=== PATIENT | female | born 1950 | race Caucasian/White ===

== ENCOUNTER 2017-11-14 09:38 | Inpatient (IN) | payer MEDICARE, SELFPAY ==
[2017-11-14] VITALS (30 sets, daily range): BP systolic 66–135; BP diastolic 46–94; PULSE 76–145; RESP 16–29; TEMP 35.9–37.2; O2SAT 87–96; BMI 60.3; BMI 58.2; BMI 58.3
--- NOTE | 2017-11-14 09:41 | NURSING ---
NO OLD EKGS
--- NOTE | 2017-11-14 09:52 | EKG12_ITS ---
Test Reason : CP Blood Pressure : / mmHG Vent. Rate : 145 BPM Atrial Rate : 147 BPM P-R Int : 098 ms QRS Dur : 166 ms QT Int : 340 ms P-R-T Axes : 000 270 015 degrees QTc Int : 528 ms Atrial flutter Left axis deviation Right bundle branch block Abnormal ECG Confirmed by CY WALKER, LEE ([id number]), web editor JERRICA HUITRON ([id number]) on 11/16/2017 10:00:22 AM Referred By: MARLA Confirmed By:LEE BENOIT MD
--- NOTE | 2017-11-14 09:52 | RAD_ITS ---
STUDY: X-RAY CHEST REASON FOR EXAM: Female, 67 years old. 2 day history of chest pain. TECHNIQUE: Single AP portable view of the chest. COMPARISON: None. FINDINGS: EKG electrodes are seen. Mild increased linear markings at the lung bases suggestive of bibasilar atelectasis and/or scarring. There is no demonstrated pleural abnormality. There is moderate cardiac enlargement. Normal mediastinum and angi. Normal visualized pulmonary arteries. Normal visualized aortic arch and descending thoracic aorta. Normal visualized thoracic spine. Normal visualized ribs, clavicles, and shoulders. There is no demonstrated abnormality of the visualized soft tissue structures of the upper abdomen. RAD/Chest 1 View (Portable) IMPRESSION: Cardiomegaly. Mild increased markings at the lung bases suggestive of linear atelectasis and/or scarring. Electronically Signed: Lewis Aguirre MD at 10:22 EDT Tel [phone], Service support ,
[2017-11-14] MEDS: Adenosine 6 MG/2 ML Syringe IV (09:53)
[2017-11-14] MEDS: Adenosine 6 MG/2 ML Syringe 12 MG IV (09:55)
[2017-11-14] MEDS: dilTIAZem 25 MG/5 ML Vial 20 MG IV BOLUS (09:58)
[2017-11-14 10:06] LABS: Absolute Lymphocyte Count 1.14 X10^3/ul (0.83-4.51); Absolute Neutrophil Count 7.9 X10^3/uL (2.0-7.7); Basophil# 0.01 X10^3/uL; Basophil% 0.1 % (0-1); Eosinophil# 0.01 X10^3/uL; Eosinophils% 0.1 % (0-5); Hematocrit 49.7 % (37-47); Hemoglobin 15.8 g/dl (12.0-15.0); Lymphocyte # 1.14 X10^3/ul (4.0); Lymphocyte % 11.2 % (19-41); Mean Corp Hgb Conc 31.8 g/gl (32-36); Mean Corpuscular Hgb 29.8 pg (27.0-32.0); Mean Corpuscular Volume 93.6 fL (81-99); Mean Platelet Vol. 10.1 fl (6.2-12.0); Monocyte# 1.02 X10^3/uL; Monocyte% 10.1 % (0-10); Neutrophil # 7.94 X10^3/uL (2.7-7.7); Neutrophil % 78.3 % (47-70); POSITIVE COUNT NO; POSITIVE DIFFERENTIAL NO; POSITIVE MORPHOLOGY NO; Platelet Count 182 K/mm3 (150-450); RBC Distribution Width CV 15.7 % (11.6-14.6); RBC Distribution Width SD 53.4 fl (35.1-43.9); Red Blood Count 5.31 M/mm3 (4.2-5.4); White Blood Count 10.1 K/mm3 (4.4-11.0)
--- NOTE | 2017-11-14 10:07 | ED.DCSUM_ITS ---
- ER Visit Summary Date of Service: 11/14/17 Chief Complaint: Shortness of breath History of Present Illness: The patient is a 67 F who has had shortness of breath for the last 2 days. She states she feels very winded. She also has some weakness. No chest pain today but she did note some chest pressure yesterday. She went to the PCPs office today and they noted that she was in SVT. She was able to do Valsalva heart rate came down to the 70s momentarily but then went back up to 150. Patient has no history of this in the past. She has no cardiac issues. She has never seen a advertising assistant before. Physical Examination: Vital signs reviewed. HEENT exam unremarkable. Heart is tachycardic but regular with a rate of 145 without murmurs. Lungs are clear to auscultation. Abdomen is soft and nontender. Extremities reveal no edema. Skin exam normal. Neurologic exam normal. Test Results: EKG was in SVT at a rate of 145. Chest x-ray shows chronic changes with cardiomegaly. Heme globin 15.8. Sodium 148, chloride 111. Glucose 133. Creatinine is 1.21. Troponin 0 0.017 Emergency Department Course and Treatment: Initially the patient was given 6 mg and then 12 mg of adenosine. This revealed that the underlying rhythm was actually atrial flutter. Patient was given 20 mg of Cardizem and then 3 5 mg doses of metoprolol. The patient still had a heart rate in the 140s. I then started her on a Cardizem drip and titrated upwards but it still did not bring down the heart rate. I discussed with Dr. Hernandez. He suggested digoxin and the patient may ultimately need a NEREYDA with cardioversion. I gave her 0.125 mg of digoxin and the patient's heart rate came down between 90 and 100. Patient was discussed with the hospitalist for admission to stepdown because she is on the Cardizem drip. Treatment Plan: [] Disposition: Admit Impression: Atrial flutter with RVR This note was generated with [employer] dictation software. It may contain incorrect words, spelling, and punctuation that were not noted in review of the chart prior to signing ED Disposition - Plan for ED Patient: Chief Complaint: Chest Pain Referrals: Alfonzo Cha MD [Primary Care Provider] -
[2017-11-14 10:29] LABS: Anion Gap 10 (5-15); BUN 24 mg/dL (7-18); BUN/Creat Ratio 19.8 RATIO (10-20); Calcium,Total 9.1 mg/dL (8.5-10.1); Chloride 111 mmol/L (98-107); Creatinine, Serum 1.21 mg/dL (0.55-1.02); EST Glomerular Filtration Rate 47 mL/min (>60); Est Glom Filt Rate - Afr Amer 57 mL/min (>60); Estimated Creatinine Clearance 39.49 ml/min; Glucose 136 mg/dL (74-106); Potassium 4.1 mmol/L (3.5-5.1); Sodium Level 148 mmol/L (136-145)
[2017-11-14] MEDS: Metoprolol Tartrate 5 MG/5 ML Vial IV ×3 (10:42→10:52)
[2017-11-14] MEDS: Digoxin 250 MCG/ML Ampul 125 MCG IV (12:58)
--- NOTE | 2017-11-14 14:08 | NURSING ---
CALLED [facility] [place] TO SEND PT.
[2017-11-14] MEDS: 0.9% Normal Saline 1,000 ML 75 ML IV (14:57)
[2017-11-14 14:59] LABS: Partial Thromboplast Time 27.3 Seconds (24.1-36.2)
[2017-11-14 15:02] LABS: International Normalized Ratio 1.2; Prothrombin Time (Protime)PT. 14.7 SECONDS (11.7-14.9)
[2017-11-14] MEDS: Heparin Injection (Vial) 5,000 UNIT/ML VIAL 12000 UNIT IV (15:06)
--- NOTE | 2017-11-14 17:00 | PCM.HP.STD ---
Problem List (1) Atrial flutter Status: Acute (2) Chest pain Status: Acute (3) Morbid obesity Status: Chronic (4) HTN (hypertension) Status: Chronic (5) GERD (gastroesophageal reflux disease) Status: Chronic History of Present Illness Date of Admission: 11/14/17 Chief Complaint: SOB The patient is a 67 year old F with a hx of morbid obesity, htn, gerd, who presented to the ER with SOB x 3 days. She was sent from her PCP's office after being found to be very tachycardic. She was also having short sharp midsternal chest pain coming and going that would last for about 1 second. In the ER she showed SVT, and was given adenocard, metoprolol, cardizem, the rhythm decreased to 140s and showed aflutter. She was then given digoxin 0.125 mg and her heart rate came down to 90-100. Dr. Hernandez was consulted and she was admitted to PCU, started on IV heparin, Amiodarone and cardizem drip. She is resting comfortably in bed with no further SOB or CP. She is eating dinner and without complaints. No recent illness. [] Past Medical History Past Medical History (Chronic Problems): Chronic Problems Morbid obesity (Chronic) HTN (hypertension) (Chronic) GERD (gastroesophageal reflux disease) (Chronic) Allergies aspirin [ASA] Adverse Reaction (Verified 11/14/17 14:34) stomach burning and sick to stomach propoxyphene HCl [From Darvon] Adverse Reaction (Verified 11/14/17 14:34) i get dizzy and pass out Home Medications: Ambulatory Orders Medication Instructions Recorded Lisinopril [Zestril] 30 mg PO DAILY 07/02/16 [place]-3 Fatty Acids/Fish Oil [Fish 1 each PO DAILY 07/02/16 Oil 1,000 mg Capsule] Calcium Carbonate/Vitamin D3 1 each PO DAILY 11/14/17 [Calcium 500+D Tablet Chew] Omeprazole [Omeprazole] 20 mg PO DAILY 11/14/17 Surgical History: hysterectomy - total Psychiatric History: No pertinent psych hx 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 Denies: Edema, Heaviness, Light Headedness, Palpitations Respiratory: Reports: Shortness of Breath, Shortness of breath at rest, Shortness of breath upon exertion. Denies: Cough, Sputum production Gastrointestinal: Denies: Abdominal Pain, Nausea, Vomiting Genitourinary: Denies: Dysuria Musculoskeletal: Denies: Joint Pain, Joint Tenderness Skin: Denies: Rash, Wounds Neurological: Denies: Numbness, Tingling, Focal weakness Psychiatric: Denies: Anxiety, Depression, Homicidal Ideations, Suicidal Ideations Hematologic/ Lymphatic: Denies: Easy Bruising, Easy Bleeding VTE Information - Inpt Only VTE Present on Admission: No VTE Mechan Device Prophylaxis: None VTE Pharm Prophylaxis ordered?: Yes Patient Problems: Active and Suspected Problems Atrial flutter (Acute) Chest pain (Acute) - Physical Exam General: Alert, Oriented x3, Cooperative HEENT: Atraumatic, PERRLA, EOMI, Normocephalic Neck: Supple, No JVD, Negative Carotid Bruits Lungs: Clear to auscultation, Normal air movement Cardiovascular: No murmurs, Irregular Rate, Tachycardic Abdomen: Bowel Sounds Present, Soft, Non Tender, Obese Extremities: No edema, Capillary Refill Less than 3 Seconds Skin: No rashes, No breakdown Musculoskeletal: No Tenderness to Palpation of Joints or Extremities Neurological: Cranial nerves II-XII grossly intact Psych/Mental Status: Normal Affect, Appropriate Vital Signs Temp Pulse Resp BP Pulse Ox 96.7 F L 77 20 H 99/50 L 95 11/14/17 16:00 11/14/17 16:00 11/14/17 16:00 11/14/17 16:00 11/14/17 16:00 Oxygen Flow Rate (L/min) 2 Oxygen Delivery Method Nasal Cannula Weight: 350 lb 3.2 oz Body Mass Index (BMI) 58.2 Laboratory Tests Past 24 Hrs 11/14/17 11/14/17 11/14/17 14:40 14:40 16:28 PT 14.7 INR 1.2 APTT 27.3 Troponin I Pending Assessment/Plan All Active Problems Atrial flutter (Acute) Chest pain (Acute) 1. Aflutter with RVR - admit to PCU. Cycle enzymes. Maintain on tele. Amio/Cardizem/heparin drips. Plan is for NEREYDA/Cardioversion. SOB is resolved. Rate is improving. CXR with cardiomegaly. 2. HTN - running low normal on drips. 3. 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 Elevated glucose. Check A1C. 4. GERD - ppi. 5. High risk for sleep apnea - stopbang at least 3. Needs PSG outpatient. 6. Dehydration - IV fluids. mildly elevated BUN/Cr. DVT ppx: Therapeutic heparin This patient was seen by Pascual Maloney PA-C under the supervision of Doctor Gutierres.
--- NOTE | 2017-11-14 17:07 | HP.PCM_ITS ---
Problem List (1) Atrial flutter Status: Acute (2) Chest pain Status: Acute (3) Morbid obesity Status: Chronic (4) HTN (hypertension) Status: Chronic (5) GERD (gastroesophageal reflux disease) Status: Chronic History of Present Illness Date of Admission: 11/14/17 Chief Complaint: SOB The patient is a 67 year old F with a hx of morbid obesity, htn, gerd, who presented to the ER with SOB x 3 days. She was sent from her PCP's office after being found to be very tachycardic. She was also having short sharp midsternal chest pain coming and going that would last for about 1 second. In the ER she showed SVT, and was given adenocard, metoprolol, cardizem, the rhythm decreased to 140s and showed aflutter. She was then given digoxin 0.125 mg and her heart rate came down to 90-100. Dr. Hernandez was consulted and she was admitted to PCU, started on IV heparin, Amiodarone and cardizem drip. She is resting comfortably in bed with no further SOB or CP. She is eating dinner and without complaints. No recent illness. [] Past Medical History Past Medical History (Chronic Problems): Chronic Problems Morbid obesity (Chronic) HTN (hypertension) (Chronic) GERD (gastroesophageal reflux disease) (Chronic) Allergies aspirin [ASA] Adverse Reaction (Verified 11/14/17 14:34) stomach burning and sick to stomach propoxyphene HCl [From Darvon] Adverse Reaction (Verified 11/14/17 14:34) i get dizzy and pass out Home Medications: Ambulatory Orders Medication Instructions Recorded Lisinopril [Zestril] 30 mg PO DAILY 07/02/16 [place]-3 Fatty Acids/Fish Oil [Fish 1 each PO DAILY 07/02/16 Oil 1,000 mg Capsule] Calcium Carbonate/Vitamin D3 1 each PO DAILY 11/14/17 [Calcium 500+D Tablet Chew] Omeprazole [Omeprazole] 20 mg PO DAILY 11/14/17 Surgical History: hysterectomy - total Psychiatric History: No pertinent psych hx 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 Denies: Edema, Heaviness, Light Headedness , Palpitations Respiratory: Reports: Shortness of Breath, Shortness of breath at rest, Shortness of breath upon exertion. Denies: Cough, Sputum production Gastrointestinal: Denies: Abdominal Pain, Nausea, Vomiting Genitourinary: Denies: Dysuria Musculoskeletal: Denies: Joint Pain, Joint Tenderness Skin: Denies: Rash, Wounds Neurological: Denies: Numbness, Tingling, Focal weakness Psychiatric: Denies: Anxiety, Depression, Homicidal Ideations, Suicidal Ideations Hematologic/ Lymphatic: Denies: Easy Bruising, Easy Bleeding VTE Information - Inpt Only VTE Present on Admission: No VTE Mechan Device Prophylaxis: None VTE Pharm Prophylaxis ordered?: Yes Patient Problems: Active and Suspected Problems Atrial flutter (Acute) Chest pain (Acute) - Physical Exam General: Alert, Oriented x3, Cooperative HEENT: Atraumatic, PERRLA, EOMI, Normocephalic Neck: Supple, No JVD, Negative Carotid Bruits Lungs: Clear to auscultation, Normal air movement Cardiovascular: No murmurs, Irregular Rate, Tachycardic Abdomen: Bowel Sounds Present, Soft, Non Tender, Obese Extremities: No edema, Capillary Refill Less than 3 Seconds Skin: No rashes, No breakdown Musculoskeletal: No Tenderness to Palpation of Joints or Extremities Neurological: Cranial nerves II-XII grossly intact Psych/Mental Status: Normal Affect, Appropriate Vital Signs Temp Pulse Resp BP Pulse Ox 96.7 F L 77 20 H 99/50 L 95 11/14/17 16:00 11/14/17 16:00 11/14/17 16:00 11/14/17 16:00 11/14/17 16:00 Oxygen Flow Rate (L/min) 2 Oxygen Delivery Method Nasal Cannula Weight: 350 lb 3.2 oz Body Mass Index (BMI) 58.2 Laboratory Tests Past 24 Hrs 11/14/17 11/14/17 11/14/17 14:40 14:40 16:28 PT 14.7 INR 1.2 APTT 27.3 Troponin I Pending Assessment/Plan All Active Problems Atrial flutter (Acute) Chest pain (Acute) 1. Aflutter with RVR - admit to PCU. Cycle enzymes. Maintain on tele. Amio/ Cardizem/heparin drips. Plan is for NEREYDA/Cardioversion. SOB is resolved. Rate is improving. CXR with cardiomegaly. 2. HTN - running low normal on drips. 3. 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 Elevated glucose. Check A1C. 4. GERD - ppi. 5. High risk for sleep apnea - stopbang at least 3. Needs PSG outpatient. 6. Dehydration - IV fluids. mildly elevated BUN/Cr. DVT ppx: Therapeutic heparin This patient was seen by Pascual Maloney PA-C under the supervision of Doctor Gutierres.
--- NOTE | 2017-11-14 18:27 | ECHOCS_ITS ---
Reason For Study: AFIB/FLUTTER Procedure This was a 2D Doppler, Color Flow transthoracic echocardiogram. The study was technically difficult. Contrast injection was performed. Exam performed portable in patient room. Left Ventricle Mildly dilated left ventricle. Mild concentric left ventricular hypertrophy. Mild global left ventricular systolic dysfunction. The estimated ejection fraction is 45 %. Unable to assess diastolic dysfunction. Right Ventricle Mild to moderate right ventricular dilatation. Mild global right ventricular systolic dysfunction. Atria The left atrium is mildly enlarged. Normal right atrium. No doppler evidence for ASD. Mitral Valve There is mild mitral annular calcification. Extension of the mitral annular calcification onto the posterior mitral valve leaflet. Trivial mitral valve insufficiency. Tricuspid Valve Normal tricuspid valve. Mild tricuspid valve insufficiency. Right ventricular systolic pressure estimated to be 34 mmHg. Aortic Valve Trisinus/trileaflet aortic valve. Mild focal aortic valve calcification. Pulmonic Valve The pulmonic valve is not well visualized. Great Vessels Normal sized aortic root. Pericardium/Pleural Trivial pericardial effusion. There are no echocardiographic indications of cardiac tamponade. Medication Performed a rapid injection of agitated mix of 9 cc saline and 1cc air to assess for atrial septal defect. Diluted definity 1.0ml given slow IV push to enhance endocardial definition. MMode/2D Measurements & Calculations LVIDd: 5.7 cm IVSd: 1.4 cm Ao root diam: 3.0 cm LVIDs: 4.4 cm LVPWd: 1.3 cm LA dimension: 4.7 cm RVDd: 3.6 cm FS: 22.7 % LAV(MOD-bp): 68.3 ml LA A4 area: 22.4 cm2 RA A4 area: 17.1 cm2 LAV(MOD-bp) Indexed: 27.2 ml/m2 LAV(MOD-sp2): 74.6 ml LAV(MOD-sp4): 63.1 ml Doppler Measurements & Calculations MV E max sergio: 116.9 cm/sec Ao V2 max: 128.2 cm/sec LV V1 max: 91.7 cm/sec Ao max P.6 mmHg LV V1 max P.4 mmHg PA V2 max: 75.8 cm/sec TR max sergio: 253.8 cm/sec TR max P.0 mmHg Interpretation Summary The study was technically difficult. Contrast injection was performed. Mildly dilated left ventricle. Mild global left ventricular systolic dysfunction. The estimated ejection fraction is 45 %. Mild concentric left ventricular hypertrophy. Mild to moderate right ventricular dilatation. Mild global right ventricular systolic dysfunction. The left atrium is mildly enlarged. There is mild mitral annular calcification. Extension of the mitral annular calcification onto the posterior mitral valve leaflet. Trivial mitral valve insufficiency. Mild tricuspid valve insufficiency. Mild focal aortic valve calcification. Trivial pericardial effusion. There are no echocardiographic indications of cardiac tamponade. Right ventricular systolic pressure estimated to be 34 mmHg. Unable to assess diastolic dysfunction. Ordering Physician: Cornelio Hernandez Performed By: Laura Jonas, SEVEN, RVT
--- NOTE | 2017-11-14 18:30 | EKG12_ITS ---
Test Reason : SERIES Blood Pressure : / mmHG Vent. Rate : 087 BPM Atrial Rate : 265 BPM P-R Int : 000 ms QRS Dur : 164 ms QT Int : 414 ms P-R-T Axes : 193 265 -65 degrees QTc Int : 498 ms Suspect arm lead reversal, interpretation assumes no reversal Atrial flutter with variable A-V block Right bundle branch block Inferior infarct , age undetermined , cannot be excluded Anterolateral infarct , age undetermined , cannot be excluded Abnormal ECG Confirmed by CY WALKER, LEE ([id number]), electronic news gathering editor JERRICA HUITRON ([id number]) on 11/24/2017 2:38:58 PM Referred By: LINDA Confirmed By:LEE BENOIT MD
--- NOTE | 2017-11-14 18:33 | PCM.CONS.C ---
Problem List (1) Atrial flutter Status: Acute (2) Chest pain Status: Acute (3) Shortness of breath Status: Acute (4) HTN (hypertension) Status: Chronic (5) GERD (gastroesophageal reflux disease) Status: Chronic (6) Morbid obesity Status: Chronic Reason for Consult Date of Consultation: 11/14/17 History of Present Illness: The patient is a 67 year old white female with a past medical history of hypertension, GERD, and obesity who is referred for evaluation of atrial flutter with rapid ventricular response, chest discomfort, and shortness of breath. The patient denies any previously documented cardiovascular history or cardiovascular diagnostic studies other than her history of hypertension. She states she had been in her usual state of health until recently. Recently she felt as if she was having asthma attacks . She notes that her [id number], her nurse, evaluated her and felt that her heart rate was elevated. Thus she presented to her PCP at the [facility] office. There she was found to be in what appeared to be atrial flutter with a ventricular rate of approximately 150 bpm. She was subsequently referred to the [facility] ED for evaluation and care. She had a cardiac enzymes performed which was negative. She had a repeat ECG which demonstrated atrial flutter with a ventricular rate of approximately 150 bpm with a right bundle branch block pattern. She was treated by the [facility] ED physicians with a combination of medications. This included IV adenosine to further evaluate her underlying atrial activity and demonstrate flutter waves. She received IV diltiazem and IV Lopressor and IV amiodarone. She was subsequently placed in the PCU for further evaluation. In the PCU her repeat troponin I level has remained negative. Her cardiac rate has slowed to ventricular rates between 80 and 100 bpm. She has remained in atrial flutter. Her chest x-ray demonstrated diminished inspiratory effort with questions of atelectasis. She has had no other additional studies performed thus far. She states that at home, during these asthma attacks she had chest discomfort. She states she can lie in bed on her side and sleep but is unsure she has been able to lie on her back and sleep. She notes that she does prop herself up in bed as she watches TV in bed. She has not had any near-syncope or syncope. She states she has not sensed her palpitations but she has noted recently when she looks at her chest that she noted her clothing fluttering. So noted the recent development of lower extremity edema. [] Past Medical History Allergies/Adverse Reactions: Allergies aspirin [ASA] Adverse Reaction (Verified 11/14/17 14:34) stomach burning and sick to stomach propoxyphene HCl [From Darvon] Adverse Reaction (Verified 11/14/17 14:34) i get dizzy and pass out Home Medications: Ambulatory Orders Medication Instructions Recorded Lisinopril [Zestril] 30 mg PO DAILY 07/02/16 [place]-3 Fatty Acids/Fish Oil [Fish 1 each PO DAILY 07/02/16 Oil 1,000 mg Capsule] Calcium Carbonate/Vitamin D3 1 each PO DAILY 11/14/17 [Calcium 500+D Tablet Chew] Omeprazole [Omeprazole] 20 mg PO DAILY 11/14/17 Past Medical History (Chronic Problems): Chronic Problems Morbid obesity (Chronic) HTN (hypertension) (Chronic) GERD (gastroesophageal reflux disease) (Chronic) Surgical History: hysterectomy - total Psychiatric History: No pertinent psych hx 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 Denies: Orthopnea, PND, Palpitations, Lightheadedness, Dizziness, Near Syncope, Syncope Respiratory: Reports: Shortness of Breath. Denies: Cough, Sputum Production, Hemoptysis Gastrointestinal: Denies: Hematemesis, Hematochezia, Melena Genitourinary: Denies: Dysuria, Hematuria Skin: Denies: Rash Subjectve: This is a 67-year-old obese white female who appears to be resting reasonably comfortably at the moment in no acute distress. Objective: Vital Signs Temp Pulse Resp BP Pulse Ox 96.7 F L 93 21 H 103/82 H 95 11/14/17 16:00 11/14/17 17:00 11/14/17 17:00 11/14/17 17:00 11/14/17 17:00 Oxygen Flow Rate (L/min) 2 Oxygen Delivery Method Nasal Cannula Weight: 350 lb 3.2 oz Body Mass Index (BMI) 58.2 General: Awake, Alert, Oriented x 3, No Acute Distress, Obese HEENT: Atraumatic, Normocephalic, PERRL, EOMI, Sclera Non Icteric Oral: Moist Mucosa Neck: Supple, Good ROM, No JVD Lungs: - - Diminished inspiratory effort Cardiovascular: Irregular Rhythm, Normal S1, Normal S2 - Diminished heart tones Vascular: No Carotid Bruits Abdomen: Bowel Sounds Present, Soft, Non Tender Extremities: Mild RLE Edema, Mild LLE Edema Neurological: No Focal Motor or Sensory Deficit Psych/Mental Status: Appropriate, Normal Affect 11/14/17 14:40: APTT 27.3 11/14/17 14:40: PT 14.7, INR 1.2 11/14/17 16:28: Troponin I 0.021 Rhythm: Atrial flutter EKG: As noted above CXR: As noted above: Please see official report Assessment/Plan 1. Atrial flutter with rapid ventricular response The patient has findings compatible atrial flutter with rapid ventricular response. The etiology may be multifactorial being related to a combination of her age, hypertension, possibly undiagnosed additional cardiovascular disease and/or pulmonary disease. This would include concerns of potential obstructive sleep apnea. She is also being evaluated for metabolic related issues. At the present time her rate has been challenging to control. It is taken multiple medications to bring her rate down. She is presently anticoagulated. She will need to be considered for NEREYDA guided synchronized biphasic DC cardioversion in an attempt to regain sinus rhythm. 2. Chest pain She did report chest discomfort associated with her shortness of breath during her recent episodes. She is undergoing evaluation by cardiac enzymes which have been negative. Her ECG demonstrates the underlying atrial flutter with a right bundle branch block pattern without acute electrocardiographic changes. Depending upon her clinical course she may need eventually to undergo some form of noninvasive or invasive evaluation of her coronary anatomy/physiology. His may include pharmacologic stress nuclear imaging studies and/or diagnostic cardiac catheterization. However, based upon her ongoing atrial dysrhythmia, which appears to be difficult to control, it may be reasonable to attempt to regain sinus rhythm first barring a change in her clinical course. 3. Shortness of breath Her shortness of breath may be related to her atrial dysrhythmia and her rapid rate superimposed upon other potential medical issues/physiologic issues including her morbid obesity. At the present time she will continue to be followed. She will continue evaluation care as noted above. 4. Hypertension Her blood pressures have been lower with IV diltiazem. Her medications be adjusted to try and balance her blood pressures. 5. GERD She states she has a history of GERD. She states she cannot tolerate aspirin because it upsets my stomach . She is unclear whether she ever took coated aspirin and whether that would bother her in any negative way. 6. Obesity The patient is morbidly obese. This may be contributing to her diagnosis, symptoms, etc. This can make it challenging with respect to further diagnostic studies, etc. Comment: The above was discussed with the patient and Dr. Gutierres. This note was generated with [employer] dictation software. It may contain incorrect words, spelling, and punctuation that were not noted in checking the note before signing.
--- NOTE | 2017-11-14 18:40 | CON.PCM_ITS ---
Problem List (1) Atrial flutter Status: Acute (2) Chest pain Status: Acute (3) Shortness of breath Status: Acute (4) HTN (hypertension) Status: Chronic (5) GERD (gastroesophageal reflux disease) Status: Chronic (6) Morbid obesity Status: Chronic Reason for Consult Date of Consultation: 11/14/17 History of Present Illness: The patient is a 67 year old white female with a past medical history of hypertension, GERD, and obesity who is referred for evaluation of atrial flutter with rapid ventricular response, chest discomfort, and shortness of breath. The patient denies any previously documented cardiovascular history or cardiovascular diagnostic studies other than her history of hypertension. She states she had been in her usual state of health until recently. Recently she felt as if she was having asthma attacks . She notes that her [id number], her nurse, evaluated her and felt that her heart rate was elevated. Thus she presented to her PCP at the [facility] office. There she was found to be in what appeared to be atrial flutter with a ventricular rate of approximately 150 bpm. She was subsequently referred to the [facility] ED for evaluation and care. She had a cardiac enzymes performed which was negative. She had a repeat ECG which demonstrated atrial flutter with a ventricular rate of approximately 150 bpm with a right bundle branch block pattern. She was treated by the [facility] ED physicians with a combination of medications. This included IV adenosine to further evaluate her underlying atrial activity and demonstrate flutter waves. She received IV diltiazem and IV Lopressor and IV amiodarone. She was subsequently placed in the PCU for further evaluation. In the PCU her repeat troponin I level has remained negative. Her cardiac rate has slowed to ventricular rates between 80 and 100 bpm. She has remained in atrial flutter. Her chest x-ray demonstrated diminished inspiratory effort with questions of atelectasis. She has had no other additional studies performed thus far. She states that at home, during these asthma attacks she had chest discomfort. She states she can lie in bed on her side and sleep but is unsure she has been able to lie on her back and sleep. She notes that she does prop herself up in bed as she watches TV in bed. She has not had any near-syncope or syncope. She states she has not sensed her palpitations but she has noted recently when she looks at her chest that she noted her clothing fluttering. So noted the recent development of lower extremity edema. [] Past Medical History Allergies/Adverse Reactions: Allergies aspirin [ASA] Adverse Reaction (Verified 11/14/17 14:34) stomach burning and sick to stomach propoxyphene HCl [From Darvon] Adverse Reaction (Verified 11/14/17 14:34) i get dizzy and pass out Home Medications: Ambulatory Orders Medication Instructions Recorded Lisinopril [Zestril] 30 mg PO DAILY 07/02/16 [place]-3 Fatty Acids/Fish Oil [Fish 1 each PO DAILY 07/02/16 Oil 1,000 mg Capsule] Calcium Carbonate/Vitamin D3 1 each PO DAILY 11/14/17 [Calcium 500+D Tablet Chew] Omeprazole [Omeprazole] 20 mg PO DAILY 11/14/17 Past Medical History (Chronic Problems): Chronic Problems Morbid obesity (Chronic) HTN (hypertension) (Chronic) GERD (gastroesophageal reflux disease) (Chronic) Surgical History: hysterectomy - total Psychiatric History: No pertinent psych hx 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 Denies: Orthopnea, PND, Palpitations, Lightheadedness, Dizziness, Near Syncope, Syncope Respiratory: Reports: Shortness of Breath. Denies: Cough, Sputum Production, Hemoptysis Gastrointestinal: Denies: Hematemesis, Hematochezia, Melena Genitourinary: Denies: Dysuria, Hematuria Skin: Denies: Rash Subjectve: This is a 67-year-old obese white female who appears to be resting reasonably comfortably at the moment in no acute distress. Objective: Vital Signs Temp Pulse Resp BP Pulse Ox 96.7 F L 93 21 H 103/82 H 95 11/14/17 16:00 11/14/17 17:00 11/14/17 17:00 11/14/17 17:00 11/14/17 17:00 Oxygen Flow Rate (L/min) 2 Oxygen Delivery Method Nasal Cannula Weight: 350 lb 3.2 oz Body Mass Index (BMI) 58.2 General: Awake, Alert, Oriented x 3, No Acute Distress, Obese HEENT: Atraumatic, Normocephalic, PERRL, EOMI, Sclera Non Icteric Oral: Moist Mucosa Neck: Supple, Good ROM, No JVD Lungs: - - Diminished inspiratory effort Cardiovascular: Irregular Rhythm, Normal S1, Normal S2 - Diminished heart tones Vascular: No Carotid Bruits Abdomen: Bowel Sounds Present, Soft, Non Tender Extremities: Mild RLE Edema, Mild LLE Edema Neurological: No Focal Motor or Sensory Deficit Psych/Mental Status: Appropriate, Normal Affect 11/14/17 14:40: APTT 27.3 11/14/17 14:40: PT 14.7, INR 1.2 11/14/17 16:28: Troponin I 0.021 Rhythm: Atrial flutter EKG: As noted above CXR: As noted above: Please see official report Assessment/Plan 1. Atrial flutter with rapid ventricular response The patient has findings compatible atrial flutter with rapid ventricular response. The etiology may be multifactorial being related to a combination of her age, hypertension, possibly undiagnosed additional cardiovascular disease and/or pulmonary disease. This would include concerns of potential obstructive sleep apnea. She is also being evaluated for metabolic related issues. At the present time her rate has been challenging to control. It is taken multiple medications to bring her rate down. She is presently anticoagulated. She will need to be considered for NEREYDA guided synchronized biphasic DC cardioversion in an attempt to regain sinus rhythm. 2. Chest pain She did report chest discomfort associated with her shortness of breath during her recent episodes. She is undergoing evaluation by cardiac enzymes which have been negative. Her ECG demonstrates the underlying atrial flutter with a right bundle branch block pattern without acute electrocardiographic changes. Depending upon her clinical course she may need eventually to undergo some form of noninvasive or invasive evaluation of her coronary anatomy/physiology. His may include pharmacologic stress nuclear imaging studies and/or diagnostic cardiac catheterization. However, based upon her ongoing atrial dysrhythmia, which appears to be difficult to control, it may be reasonable to attempt to regain sinus rhythm first barring a change in her clinical course. 3. Shortness of breath Her shortness of breath may be related to her atrial dysrhythmia and her rapid rate superimposed upon other potential medical issues/physiologic issues including her morbid obesity. At the present time she will continue to be followed. She will continue evaluation care as noted above. 4. Hypertension Her blood pressures have been lower with IV diltiazem. Her medications be adjusted to try and balance her blood pressures. 5. GERD She states she has a history of GERD. She states she cannot tolerate aspirin because it upsets my stomach . She is unclear whether she ever took coated aspirin and whether that would bother her in any negative way. 6. Obesity The patient is morbidly obese. This may be contributing to her diagnosis, symptoms, etc. This can make it challenging with respect to further diagnostic studies, etc. Comment: The above was discussed with the patient and Dr. Gutierres. This note was generated with [employer] dictation software. It may contain incorrect words, spelling, and punctuation that were not noted in checking the note before signing.
[2017-11-14 21:49] LABS: Partial Thromboplast Time > 250.0 Seconds (24.1-36.2)
[2017-11-15] VITALS (29 sets, daily range): BP systolic 89–143; BP diastolic 35–100; PULSE 58–103; RESP 16–20; TEMP 36.3–36.9; O2SAT 90–98; BMI 58.2
[2017-11-15 04:07] LABS: Absolute Neutrophil Count 6.3 X10^3/uL (2.0-7.7); Basophil# 0.01 X10^3/uL; Basophil% 0.1 % (0-1); Eosinophil# 0.05 X10^3/uL; Eosinophils% 0.5 % (0-5); Hematocrit 49.9 % (37-47); Hemoglobin 15.4 g/dl (12.0-15.0); Lymphocyte % 20.5 % (19-41); Mean Corp Hgb Conc 30.9 g/gl (32-36); Mean Corpuscular Hgb 29.8 pg (27.0-32.0); Mean Corpuscular Volume 96.5 fL (81-99); Mean Platelet Vol. 10.2 fl (6.2-12.0); Monocyte# 1.04 X10^3/uL; Monocyte% 11.2 % (0-10); Neutrophil # 6.26 X10^3/uL (2.7-7.7); Neutrophil % 67.5 % (47-70); POSITIVE COUNT NO; POSITIVE DIFFERENTIAL NO; POSITIVE MORPHOLOGY NO; Platelet Count 143 K/mm3 (150-450); RBC Distribution Width CV 16.2 % (11.6-14.6); RBC Distribution Width SD 56.8 fl (35.1-43.9); Red Blood Count 5.17 M/mm3 (4.2-5.4); White Blood Count 9.3 K/mm3 (4.4-11.0)
[2017-11-15 04:34] LABS: AST(SGOT) 22 U/L (15-37); Alanine Aminotransfer ALT/SGPT 55 U/L (13-56); Albumin, Serum 2.8 g/dL (3.2-5.0); Alkaline Phosphatase 117 U/L (45-117); Anion Gap 9 (5-15); BUN 26 mg/dL (7-18); BUN/Creat Ratio 23.6 RATIO (10-20); Bilirubin, Direct 0.14 mg/dL (0.00-0.30); Calcium,Total 8.8 mg/dL (8.5-10.1); Chloride 112 mmol/L (98-107); Cholesterol 101 mg/dL (200); EST Glomerular Filtration Rate 52 mL/min (>60); Est Glom Filt Rate - Afr Amer 63 mL/min (>60); Estimated Creatinine Clearance 43.43 ml/min; Globulin 3.8 g/dL (2.2-4.2); Glucose 115 mg/dL (74-106); High Density Lipoprotein 48 mg/dL; Potassium 4.5 mmol/L (3.5-5.1); Protein, Total 6.6 g/dL (6.4-8.2); Sodium Level 145 mmol/L (136-145); Thyroid Stim Hormone (TSH) 0.88 uIU/mL (0.358-3.74); Triglycerides 89 mg/dL; Very Low Density Lipoprotein 18 mg/dL (5-40)
[2017-11-15 04:37] LABS: Partial Thromboplast Time 218.4 Seconds (24.1-36.2)
[2017-11-15 04:40] LABS: International Normalized Ratio 1.2; Prothrombin Time (Protime)PT. 15.2 SECONDS (11.7-14.9)
--- NOTE | 2017-11-15 05:55 | EKG12_ITS ---
Test Reason : AFLUTTER Blood Pressure : / mmHG Vent. Rate : 059 BPM Atrial Rate : 072 BPM P-R Int : 000 ms QRS Dur : 176 ms QT Int : 434 ms P-R-T Axes : 000 -76 -43 degrees QTc Int : 429 ms Junctional rhythm Left axis deviation Right bundle branch block Inferior [place], age undetermined, cannot be excluded Anterior [place], age undetermined, cannot be excluded Abnormal ECG Confirmed by CY WALKER, LEE ([id number]), electronic news gathering editor JERRICA HUITRON ([id number]) on 11/20/2017 3:52:52 PM Referred By: LINDA Confirmed By:LEE BENOIT MD
--- NOTE | 2017-11-15 08:00 | E[place]_ITS ---
Reason For Study: AFIB-FLUTTER Medication NEREYDA probe passed with minimal difficulty. No complications were noted. [place]x Topical Lamar given X4 metered doses orally. Versed 2 mg given slow IVP. Performed a rapid injection of agitated mix of 9 cc saline and 1cc air to assess for atrial septal defect. Left Ventricle Mild global left ventricular systolic dysfunction. The estimated ejection fraction is 45 %. Right Ventricle Mildly dilated right ventricle. Mild segmental dysfunction of right ventricle. Atria Color flow doppler c/w a left to right interatrial shunt c/w a PFO. Agitated saline contrast study c/w a right to left interatrial shunt c/w a PFO. The left atrium is mildly enlarged. There is mild sponatenous contrast in the left atrium. No thrombus is detected in the left atrial appendage. The right atrium is mildly enlarged. There is no sponatenous contrast in the right atrium. No RA / appendage thrombus identified. Mitral Valve There is mild to moderate mitral annular calcification. Extension of the mitral annular calcification onto the posterior mitral valve leaflet. Mild (1+) mitral valve insufficiency. Tricuspid Valve Normal tricuspid valve. Moderate (2+) tricuspid valve insufficiency. Aortic Valve Trisinus/trileaflet aortic valve. Mild focal aortic valve calcification. Pulmonic Valve The pulmonic valve is not well visualized. Vessels Normal appearing thoracic aorta. Pericardium No pericardial effusion. Interpretation Summary Mild global left ventricular systolic dysfunction. The estimated ejection fraction is 45 %. Mildly dilated right ventricle. Mild segmental dysfunction of right ventricle. The left atrium is mildly enlarged. There is mild sponatenous contrast in the left atrium. No thrombus is detected in the left atrial appendage. The right atrium is mildly enlarged. There is mild to moderate mitral annular calcification. Extension of the mitral annular calcification onto the posterior mitral valve leaflet. Mild (1+) mitral valve insufficiency. Moderate (2+) tricuspid valve insufficiency. Mild focal aortic valve calcification. Color flow doppler c/w a left to right interatrial shunt c/w a PFO. Agitated saline contrast study c/w a right to left interatrial shunt c/w a PFO. Normal appearing thoracic aorta. Ordering Physician: Cornelio Hernandez Referring Physician: SANCHEZ SPEARS Performed By: Emelia José RDCS
--- NOTE | 2017-11-15 10:36 | NURSING ---
1043 115/81 91% 6L [address] King 1044 50J Sync cardioversion 1045 125/75 91% 55 20 6L 1047 93%6L 51 20 112/71 1049 94% 6L 55 20 112/75 1051 94% 6L 55 20 120/71 1053 95% 6L 55 20 103/69 1055 92% 4L 60 20 106/77
[2017-11-15 10:51] LABS: Partial Thromboplast Time 52.1 Seconds (24.1-36.2)
--- NOTE | 2017-11-15 10:56 | PCM.OP.BLANK ---
Operative Report Date of Procedure: 11/15/17 CONSCIOUS SEDATION REPORT DATE OF SERVICE: November 15, 2017 BRIEF HISTORY OF PRESENT ILLNESS: The patient is a morbidly obese 67-year-old female who presented to the hospital in the setting of atrial flutter with a rapid ventricular response. The patient was evaluated by cardiology and underwent a transesophageal echocardiogram, which revealed mild global systolic dysfunction with an ejection fraction of 45%. The patient is currently anticoagulated on heparin and is receiving amiodarone and Cardizem. She was subsequently referred to undergo a bedside cardioversion by Dr. Hernandez. The patient denies a smoking history herself, but does have significant secondhand smoke exposure. Although she is at high risk for underlying sleep disordered breathing, she has never undergone a formal polysomnogram previously. PHYSICAL EXAMINATION: VITAL SIGNS: Reviewed and were acceptable. GENERAL: The patient is an obese female, in no apparent distress, speaking in full sentences. HEENT: Normocephalic, atraumatic. Mucous membranes are moist and pink. Good mouth opening noted. Trachea is midline. Limited neck mobility. MP III CHEST: S1, S2 irregularly irregular. No murmurs, rubs or gallops were noted. LUNGS: Clear to auscultation bilaterally with distant breath sounds secondary to body habitus. ABDOMEN: Soft, nontender, nondistended. Positive bowel sounds. Obese. EXTREMITIES: There is no clubbing or cyanosis. Trace lower extremity edema is present. ASA Class: II DESCRIPTION OF PROCEDURE: After confirmation of informed consent, the patient's anesthesia plan was reviewed in detail. Etomidate was chosen. Risks and benefits were reviewed and the patient agreed to proceed. At 1043, the patient was given 6 mg of etomidate. The patient achieved an appropriate level of sedation and was given a 50 joule synchronized cardioversion by Dr. Hernandez at the bedside. This was successful in achieving normal sinus rhythm. The patient was monitored until 1052, at which time she reached her baseline mental status and function. The patient tolerated the procedure well. COMPLICATIONS: None ESTIMATED BLOOD LOSS: None RECOMMENDATIONS: Okay to recover in usual fashion. Code Visit 9xxxx: Other Procedure See Report - [id number]
--- NOTE | 2017-11-15 11:00 | PN_ITS ---
Patient Problems: Active and Suspected Problems Atrial flutter (Acute) Chest pain (Acute) Shortness of breath (Acute) Subjective: No CP. No palp. On o2. Not SOB. - Physical Exam General: Alert, Oriented x3, Cooperative HEENT: Atraumatic, PERRLA, EOMI, Normocephalic Neck: Supple, No JVD, Negative Carotid Bruits Lungs: Diminished Cardiovascular: Regular rate, No murmurs Abdomen: Bowel Sounds Present, Soft, Non Tender, Obese Extremities: No edema, Capillary Refill Less than 3 Seconds Skin: No rashes, No breakdown Musculoskeletal: No Tenderness to Palpation of Joints or Extremities Neurological: Cranial nerves II-XII grossly intact Psych/Mental Status: Normal Affect, Appropriate, Alert and oriented to time, place, person, mood and affect Vital Signs Temp Pulse Resp BP Pulse Ox 98 F 103 H 20 H 104/90 H 90 11/15/17 09:00 11/15/17 09:00 11/15/17 09:00 11/15/17 09:00 11/15/17 09:00 Oxygen Flow Rate (L/min) 2 Oxygen Delivery Method Nasal Cannula Weight: 350 lb 3.2 oz Body Mass Index (BMI) 58.2 Intake and Output for Last 24 Hours 11/13/17 11/14/17 11/15/17 23:59 23:59 23:59 Intake Total 882.6 / 882.6 232 / 232 Balance 882.6 / 882.6 232 / 232 Laboratory Tests Past 24 Hrs 11/14/17 11/14/17 11/14/17 14:40 14:40 16:28 WBC RBC Hgb Hct MCV MCH MCHC RDW RDW Differential Plt Count MPV Immature Gran % (Auto) Neut % (Auto) Lymph % (Auto) [place] % (Auto) Eos % (Auto) Baso % (Auto) Absolute Neuts (auto) Absolute Lymphs (auto) Total Counted PT 14.7 INR 1.2 APTT 27.3 Sodium Potassium Chloride Carbon Dioxide Anion Gap BUN Creatinine Estim Creat Clear Calc Est GFR (MDRD) Af Amer Est GFR (MDRD) Non-Af BUN/Creatinine Ratio Glucose Calcium Total Bilirubin Direct Bilirubin AST ALT Alkaline Phosphatase Troponin I 0.021 Total Protein Albumin Globulin Triglycerides Cholesterol LDL Cholesterol VLDL Cholesterol HDL Cholesterol TSH Cortisol 11/14/17 11/14/17 11/14/17 20:51 20:51 22:35 WBC RBC Hgb Hct MCV MCH MCHC RDW RDW Differential Plt Count MPV Immature Gran % (Auto) Neut % (Auto) Lymph % (Auto) [place] % (Auto) Eos % (Auto) Baso % (Auto) Absolute Neuts (auto) Absolute Lymphs (auto) Total Counted PT INR APTT > 250.0 H* Sodium Potassium Chloride Carbon Dioxide Anion Gap BUN Creatinine Estim Creat Clear Calc Est GFR (MDRD) Af Amer Est GFR (MDRD) Non-Af BUN/Creatinine Ratio Glucose Calcium Total Bilirubin Direct Bilirubin AST ALT Alkaline Phosphatase Troponin I 0.019 < 0.015 Total Protein Albumin Globulin Triglycerides Cholesterol LDL Cholesterol VLDL Cholesterol HDL Cholesterol TSH Cortisol 11/15/17 11/15/17 11/15/17 03:52 03:52 03:52 WBC RBC Hgb Hct MCV MCH MCHC RDW RDW Differential Plt Count MPV Immature Gran % (Auto) Neut % (Auto) Lymph % (Auto) [place] % (Auto) Eos % (Auto) Baso % (Auto) Absolute Neuts (auto) Absolute Lymphs (auto) Total Counted PT 15.2 H INR 1.2 APTT Sodium 145 Potassium 4.5 Chloride 112 H Carbon Dioxide 24.0 Anion Gap 9 BUN 26 H Creatinine 1.10 H Estim Creat Clear Calc 43.43 Est GFR (MDRD) Af Amer 63 Est GFR (MDRD) Non-Af 52 L BUN/Creatinine Ratio 23.6 H Glucose 115 H Calcium 8.8 Total Bilirubin 0.30 Direct Bilirubin 0.14 AST 22 ALT 55 Alkaline Phosphatase 117 Troponin I Total Protein 6.6 Albumin 2.8 L Globulin 3.8 Triglycerides 89 Cholesterol 101 LDL Cholesterol 35 VLDL Cholesterol 18 HDL Cholesterol 48 TSH 0.88 Cortisol 25.40 H 11/15/17 11/15/17 11/15/17 03:52 03:52 10:30 WBC 9.3 RBC 5.17 Hgb 15.4 H Hct 49.9 H MCV 96.5 MCH 29.8 MCHC 30.9 L RDW 16.2 H RDW Differential 56.8 H Plt Count 143 L MPV 10.2 Immature Gran % (Auto) 0.200 Neut % (Auto) 67.5 Lymph % (Auto) 20.5 [place] % (Auto) 11.2 H Eos % (Auto) 0.5 Baso % (Auto) 0.1 Absolute Neuts (auto) 6.3 Absolute Lymphs (auto) 1.90 Total Counted Not Reportable PT INR APTT 218.4 H* Pending Sodium Potassium Chloride Carbon Dioxide Anion Gap BUN Creatinine Estim Creat Clear Calc Est GFR (MDRD) Af Amer Est GFR (MDRD) Non-Af BUN/Creatinine Ratio Glucose Calcium Total Bilirubin Direct Bilirubin AST ALT Alkaline Phosphatase Troponin I Total Protein Albumin Globulin Triglycerides Cholesterol LDL Cholesterol VLDL Cholesterol HDL Cholesterol TSH Cortisol Medical Necessity - Tobacco Use Smoking Status: Former smoker - quit 1989 smoked x 10 years Tobacco Use: Cigarettes Assessment/Plan All Active Problems Atrial flutter (Acute) Chest pain (Acute) Shortness of breath (Acute) 1. Aflutter with RVR - s/p NEREYDA/Cardioversion. EF 45%. RVSP 34. Amio/dig/heparin gtt. Trop neg x 3. 2. HTN - running low normal on drips. 3. Morbid obesity and prediabetes - a1c 6.0. Horseshoer consult. 4. GERD - ppi. 5. High risk for sleep apnea - stopbang at least 3. Needs PSG outpatient. 6. Dehydration - IV fluids. mildly elevated BUN/Cr. DVT ppx: Therapeutic heparin This patient was seen by Pascual Maloney PA-C under the supervision of Doctor Gutierres.
[2017-11-15] MEDS: Etomidate 20 MG/10 ML Vial IV (11:06)
[2017-11-15] MEDS: Heparin Injection (Vial) 5,000 UNIT/ML VIAL IV (11:12)
--- NOTE | 2017-11-15 11:40 | PCM.OP.BLANK ---
Problem List (1) Atrial flutter Status: Acute (2) Chest pain Status: Acute (3) Shortness of breath Status: Acute (4) HTN (hypertension) Status: Chronic (5) GERD (gastroesophageal reflux disease) Status: Chronic (6) Morbid obesity Status: Chronic Operative Report Date of Procedure: 11/15/17 Synchronized biphasic DC cardioversion: Indications: Atrial flutter with rapid ventricular response Consent: Per the patient Premedications: Per Dr. Charlie King of pulmonology and critical care medicine with etomidate 6 mg IV push total Procedure: Synchronized biphasic DC cardioversion: 50 J ?1: Result: Sinus bradycardia; intermittent junctional rhythm; PACs Complications: No apparent complications This note was generated with [employer] dictation software. It may contain incorrect words, spelling, and punctuation that were not noted in checking the note before signing.
[2017-11-15 11:47] LABS: D-Dimer Quantitative (DVT/PE) 1.78 FEU/ug/m (0.27-0.49)
--- NOTE | 2017-11-15 11:47 | CASEMGMT ---
Face to Face with patient for initial transition planning/care coordination assessment. RN SCARLET introduced self and role at [facility], pt voices understanding and consents to assessment at this time. Pt is sittting up in chair in no distress at this time. Pt is A/O x4 at this time and answers all questions appropriately at this time. Care providers, pharmacy, and demographics verified. See attached link. Pt voices no further concerns/needs at this time. Advised pt to ask for CM if any further questions/concerns/needs arise, voices understanding. Referral to [facility] for prescription assist and AD info, voices understanding. PLAN: [place]
[2017-11-15] MEDS: Carvedilol 3.125 MG TABLET PO ×2 (13:51→22:05)
[2017-11-15] MEDS: 0.9% NaCl Peripheral Flush Adult/Peds IV ×2 (13:52→20:04)
--- NOTE | 2017-11-15 14:45 | CT_ITS ---
STUDY: CTA CHEST REASON FOR EXAM: Female, 67 years old. Elevated d-dimer. RADIATION DOSAGE (If Supplied By Facility): CTDIvol = ( 33.30 ) mGy, DLP = ( 986.96 ) mGycm TECHNIQUE: The examination was performed with the intravenous administration of 100 ml of Isovue 370 contrast material. Post-processing of the angiographic images was performed, with multiplanar reformation and 3D reconstruction. Individualized dose optimization techniques were used for this CT. COMPARISON: Comparison is made with prior chest radiograph dated November 14, 2017. FINDINGS: Normal enhancement of the main pulmonary artery and right and left pulmonary arteries. Normal enhancement of the bilateral peripheral pulmonary arteries. There is no demonstrated pulmonary embolism. Normal thoracic aorta and visualized great vessels. There is no demonstrated aortic dissection. There are calcifications of the coronary arteries. Normal mediastinum. Normal hilar regions. Normal visualized trachea and bronchi. The lungs are well expanded. There are small bilateral pleural effusions with bibasilar infiltration and/or atelectasis. Focal infiltrate in the posterior aspect of the lingular segment of the left upper lobe as well as increased markings in the right middle lobe. Normal pleura. Normal chest wall structures. There are degenerative changes of thoracic spine. Normal visualized upper abdomen. CT/CTA Chest W/WO Contrast IMPRESSION: Bilateral pleural effusions with bibasilar infiltration and/or atelectasis. Focal infiltrate in the posterior aspect of the exam of the left upper lobe as well as increased markings in the right middle lobe. Electronically Signed: Lewis Aguirre MD at 15:39 EDT Tel [phone], Service support ,
[2017-11-15] MEDS: Rivaroxaban 20 MG Tablet PO (17:41)
--- NOTE | 2017-11-15 18:27 | PCM.PN.CARD ---
Subjectve: The patient was evaluated earlier this day. She underwent evaluation with a transthoracic and transesophageal echocardiogram and subsequently a synchronized biphasic DC cardioversion. She did regain sinus rhythm. She has had no obvious adverse event reported since that time. Objective: Vital Signs Temp Pulse Resp BP Pulse Ox 98 F 59 L 20 H 143/35 H 92 11/15/17 14:00 11/15/17 15:09 11/15/17 14:00 11/15/17 14:00 11/15/17 17:30 Oxygen Flow Rate (L/min) 2 Oxygen Delivery Method Nasal Cannula Weight: 350 lb 3.198 oz Body Mass Index (BMI) 58.2 Intake and Output for Last 24 Hours 11/13/17 11/14/17 11/15/17 23:59 23:59 23:59 Intake Total 882.6 / 882.6 868 / 868 Output Total 300 / 300 Balance 882.6 / 882.6 568 / 568 General: Awake, Alert, Oriented x 3, Obese Lungs: Diminished Randall Bases Cardiovascular: Regular Rhythm, Normal S1, Normal S2 Abdomen: Bowel Sounds Present, Soft, Non Tender Extremities: Mild RLE Edema, Mild LLE Edema 11/14/17 20:51: APTT > 250.0 H* 11/14/17 20:51: Troponin I 0.019 11/14/17 22:35: Troponin I < 0.015 11/15/17 03:52: Sodium 145, Potassium 4.5, Chloride 112 H, Carbon Dioxide 24.0, Anion Gap 9, BUN 26 H, Creatinine 1.10 H, Est GFR (MDRD) Af Amer 63, Est GFR (MDRD) Non-Af 52 L, BUN/Creatinine Ratio 23.6 H, Glucose 115 H, Calcium 8.8, Total Bilirubin 0.30, Direct Bilirubin 0.14, Triglycerides 89, Cholesterol 101, LDL Cholesterol 35, VLDL Cholesterol 18, HDL Cholesterol 48 11/15/17 03:52: PT 15.2 H, INR 1.2 11/15/17 03:52: APTT 218.4 H* 11/15/17 03:52: WBC 9.3, RBC 5.17, Hgb 15.4 H, Hct 49.9 H, MCV 96.5, MCH 29.8, MCHC 30.9 L, RDW 16.2 H, RDW Differential 56.8 H, Plt Count 143 L, MPV 10.2, Immature Gran % (Auto) 0.200, Neut % (Auto) 67.5, Lymph % (Auto) 20.5, [place] % (Auto) 11.2 H, Eos % (Auto) 0.5, Baso % (Auto) 0.1, Absolute Neuts (auto) 6.3, Total Counted Not Reportable 11/15/17 10:30: APTT 52.1 H 11/15/17 10:30: D-Dimer Quant (PE/DVT) 1.78 H* Rhythm: Sinus rhythm ECHO: Please see official report Transesophageal echocardiogram: Please see official report Medical Necessity - Tobacco Use Smoking Status: Former smoker - quit 1989 smoked x 10 years Tobacco Use: Cigarettes Assessment/Plan 1. Atrial flutter with rapid ventricular response The patient has undergone noninvasive evaluation. She is undergone synchronized biphasic DC cardioversion. She did regain sinus rhythm. She will continue rate control therapy and anticoagulant therapy at this time. 2. Chest pain Her cardiac enzymes have been negative. Her ECG is demonstrated no acute changes. Over time she will be considered for further cardiovascular evaluation which may include additional noninvasive and invasive studies for the possibility of underlying CAD. Also, based upon her atrial dysrhythmia and her chest discomfort, etc.,, she did undergo evaluation with a d-dimer level. This was considered abnormal. She had a chest CT scan performed. She had no great vessel disease. There was concern of fluid retention which may be secondary to her atrial dysrhythmia and her diminished cardiovascular function. Thus she will receive additional medical therapy with diuretic therapy as well. 3. Cardiomyopathy Based upon her noninvasive studies she does have diminished LV systolic function as well as right ventricular enlargement and diminished RV systolic function. There is a concern that her diminished LV systolic function may be related to her underlying atrial dysrhythmia and rapid ventricular response. Hopefully she will remain in sinus rhythm and with medications this will improve. This can be followed with noninvasive studies. There is concern about her right sided enlargement and dysfunction. There is concern this may be related to underlying pulmonary disease process such as obstructive sleep apnea. Thus would be very reasonable that the patient be evaluated for pulmonology for further evaluation recommendations. 4. Hypertension Her blood pressures have been lower with IV diltiazem. Her medications be adjusted to try and balance her blood pressures. 5. GERD She states she has a history of GERD. She states she cannot tolerate aspirin because it upsets my stomach . She is unclear whether she ever took coated aspirin and whether that would bother her in any negative way. 6. Obesity The patient is morbidly obese. This may be contributing to her diagnosis, symptoms, etc. This can make it challenging with respect to further diagnostic studies, etc. Of note, the patient's family states the patient is relatively in active. They note that she does get up to cook and do dishes and do very minimal activity inside or outside. They note that she spends the vast majority of her time sitting and watching television. Comment: The above was discussed with the patient, her family, and Dr. Gutierres. This note was generated with [employer] dictation software. It may contain incorrect words, spelling, and punctuation that were not noted in checking the note before signing.
[2017-11-15] MEDS: Furosemide 40 MG/4 ML Vial IV (20:04)
--- NOTE | 2017-11-15 20:26 | PN_ITS ---
Patient Problems: Active and Suspected Problems Atrial flutter (Acute) Chest pain (Acute) Shortness of breath (Acute) Subjective: Patient was seen and examined today, earlier today she underwent a cardioversion which was successful and she returned to normal sinus rhythm. Cardiology is adjusting the patient's medications presently. - Physical Exam General: Alert, Oriented x3, Cooperative HEENT: Atraumatic, PERRLA, EOMI, Normocephalic Oral: Moist Mucosa Neck: Supple, No JVD, No Nuchal Rigidity, Trachea Midline, Thyroid Normal Size and Texture Lungs: Clear to auscultation, Normal air movement, No rhonchi, No wheeze, No rales Cardiovascular: Regular rate, Regular Rhythm, Normal S1, Normal S2, No murmurs, No Ectopic Activity, PMI Normal, No rub noted, No Gallop Abdomen: Bowel Sounds Present, Soft, Non Tender, Non-Distended, Obese Extremities: Capillary Refill Less than 3 Seconds, Edema - 1-2 mm pretibial edema is noted Skin: No rashes, No breakdown Musculoskeletal: No Tenderness to Palpation of Joints or Extremities Neurological: Cranial nerves II-XII grossly intact, Neuro grossly intact, Sensory exam intact to light touch and pain, Coordination normal Psych/Mental Status: Normal Affect, Appropriate, Alert and oriented to time, place, person, mood and affect Vital Signs Temp Pulse Resp BP Pulse Ox 98 F 59 L 20 H 143/35 H 92 11/15/17 14:00 11/15/17 15:09 11/15/17 14:00 11/15/17 14:00 11/15/17 17:30 Oxygen Flow Rate (L/min) 2 Oxygen Delivery Method Nasal Cannula Weight: 158.848 kg Body Mass Index (BMI) 58.2 Intake and Output for Last 24 Hours 11/13/17 11/14/17 11/15/17 23:59 23:59 23:59 Intake Total 882.6 / 882.6 868 / 868 Output Total 300 / 300 Balance 882.6 / 882.6 568 / 568 Laboratory Tests Past 24 Hrs 11/14/17 11/14/17 11/14/17 20:51 20:51 22:35 WBC RBC Hgb Hct MCV MCH MCHC RDW RDW Differential Plt Count MPV Immature Gran % (Auto) Neut % (Auto) Lymph % (Auto) [place] % (Auto) Eos % (Auto) Baso % (Auto) Absolute Neuts (auto) Absolute Lymphs (auto) Total Counted PT INR APTT > 250.0 H* D-Dimer Quant (PE/DVT) Sodium Potassium Chloride Carbon Dioxide Anion Gap BUN Creatinine Estim Creat Clear Calc Est GFR (MDRD) Af Amer Est GFR (MDRD) Non-Af BUN/Creatinine Ratio Glucose Calcium Total Bilirubin Direct Bilirubin AST ALT Alkaline Phosphatase Troponin I 0.019 < 0.015 Total Protein Albumin Globulin Triglycerides Cholesterol LDL Cholesterol VLDL Cholesterol HDL Cholesterol TSH Cortisol 11/15/17 11/15/17 11/15/17 03:52 03:52 03:52 WBC RBC Hgb Hct MCV MCH MCHC RDW RDW Differential Plt Count MPV Immature Gran % (Auto) Neut % (Auto) Lymph % (Auto) [place] % (Auto) Eos % (Auto) Baso % (Auto) Absolute Neuts (auto) Absolute Lymphs (auto) Total Counted PT 15.2 H INR 1.2 APTT D-Dimer Quant (PE/DVT) Sodium 145 Potassium 4.5 Chloride 112 H Carbon Dioxide 24.0 Anion Gap 9 BUN 26 H Creatinine 1.10 H Estim Creat Clear Calc 43.43 Est GFR (MDRD) Af Amer 63 Est GFR (MDRD) Non-Af 52 L BUN/Creatinine Ratio 23.6 H Glucose 115 H Calcium 8.8 Total Bilirubin 0.30 Direct Bilirubin 0.14 AST 22 ALT 55 Alkaline Phosphatase 117 Troponin I Total Protein 6.6 Albumin 2.8 L Globulin 3.8 Triglycerides 89 Cholesterol 101 LDL Cholesterol 35 VLDL Cholesterol 18 HDL Cholesterol 48 TSH 0.88 Cortisol 25.40 H 11/15/17 11/15/17 11/15/17 03:52 03:52 10:30 WBC 9.3 RBC 5.17 Hgb 15.4 H Hct 49.9 H MCV 96.5 MCH 29.8 MCHC 30.9 L RDW 16.2 H RDW Differential 56.8 H Plt Count 143 L MPV 10.2 Immature Gran % (Auto) 0.200 Neut % (Auto) 67.5 Lymph % (Auto) 20.5 [place] % (Auto) 11.2 H Eos % (Auto) 0.5 Baso % (Auto) 0.1 Absolute Neuts (auto) 6.3 Absolute Lymphs (auto) 1.90 Total Counted Not Reportable PT INR APTT 218.4 H* 52.1 H D-Dimer Quant (PE/DVT) Sodium Potassium Chloride Carbon Dioxide Anion Gap BUN Creatinine Estim Creat Clear Calc Est GFR (MDRD) Af Amer Est GFR (MDRD) Non-Af BUN/Creatinine Ratio Glucose Calcium Total Bilirubin Direct Bilirubin AST ALT Alkaline Phosphatase Troponin I Total Protein Albumin Globulin Triglycerides Cholesterol LDL Cholesterol VLDL Cholesterol HDL Cholesterol TSH Cortisol 11/15/17 10:30 WBC RBC Hgb Hct MCV MCH MCHC RDW RDW Differential Plt Count MPV Immature Gran % (Auto) Neut % (Auto) Lymph % (Auto) [place] % (Auto) Eos % (Auto) Baso % (Auto) Absolute Neuts (auto) Absolute Lymphs (auto) Total Counted PT INR APTT D-Dimer Quant (PE/DVT) 1.78 H* Sodium Potassium Chloride Carbon Dioxide Anion Gap BUN Creatinine Estim Creat Clear Calc Est GFR (MDRD) Af Amer Est GFR (MDRD) Non-Af BUN/Creatinine Ratio Glucose Calcium Total Bilirubin Direct Bilirubin AST ALT Alkaline Phosphatase Troponin I Total Protein Albumin Globulin Triglycerides Cholesterol LDL Cholesterol VLDL Cholesterol HDL Cholesterol TSH Cortisol Medical Necessity - Tobacco Use Smoking Status: Former smoker - quit 1989 smoked x 10 years Tobacco Use: Cigarettes Assessment/Plan All Active Problems Atrial flutter (Acute) Chest pain (Acute) Shortness of breath (Acute) #1 acute atrial flutter with RVR-now converted to sinus rhythm after cardioversion, cardiology will adjust medications, she remains on anticoagulation #2 cardiomyopathy-probably rate controlled but possibly ischemic, cardiology will adjust medications #3 super morbid obesity #4 chronic kidney disease stage III #5 hypertension #6 GERD #7 pulmonary hypertension
[2017-11-16] VITALS (12 sets, daily range): BP systolic 78–128; BP diastolic 47–85; PULSE 52–80; RESP 16–18; TEMP 36.6–37; O2SAT 92–96
--- NOTE | 2017-11-16 05:55 | EKG12_ITS ---
Test Reason : AM EKG Blood Pressure : / mmHG Vent. Rate : 052 BPM Atrial Rate : 052 BPM P-R Int : 258 ms QRS Dur : 160 ms QT Int : 494 ms P-R-T Axes : 011 265 004 degrees QTc Int : 459 ms Sinus bradycardia with 1st degree A-V block Right bundle branch block Inferior infarct , age undetermined , cannot be excluded Anterolateral infarct , age undetermined, cannot be excluded Abnormal ECG Confirmed by CY WALKER, LEE ([id number]), photography editor JERRICA HUITRON ([id number]) on 11/20/2017 3:49:40 PM Referred By: DR NEVAREZ Confirmed By:LEE BENOIT MD
[2017-11-16 06:01] LABS: Anion Gap 5 (5-15); BUN 38 mg/dL (7-18); BUN/Creat Ratio 19.7 RATIO (10-20); Calcium,Total 9.1 mg/dL (8.5-10.1); Chloride 110 mmol/L (98-107); Creatinine, Serum 1.93 mg/dL (0.55-1.02); EST Glomerular Filtration Rate 27 mL/min (>60); Est Glom Filt Rate - Afr Amer 33 mL/min (>60); Estimated Creatinine Clearance 24.75 ml/min; Glucose 137 mg/dL (74-106); Sodium Level 145 mmol/L (136-145)
[2017-11-16 07:42] LABS: Anion Gap 5 (5-15); BUN 39 mg/dL (7-18); BUN/Creat Ratio 20.6 RATIO (10-20); Calcium,Total 8.8 mg/dL (8.5-10.1); Chloride 111 mmol/L (98-107); Creatinine, Serum 1.89 mg/dL (0.55-1.02); EST Glomerular Filtration Rate 28 mL/min (>60); Est Glom Filt Rate - Afr Amer 34 mL/min (>60); Estimated Creatinine Clearance 25.28 ml/min; Glucose 133 mg/dL (74-106); Potassium 5.8 mmol/L (3.5-5.1); Sodium Level 141 mmol/L (136-145)
[2017-11-16] MEDS: Pantoprazole Sodium 20 MG Tablet PO (10:15)
[2017-11-16] MEDS: Sodium Polystyrene Sulfonate 15 GM/60 ML UDC PO (10:16)
[2017-11-16] MEDS: 0.9% Normal Saline 1,000 ML 500 ML IV (10:34)
[2017-11-16 12:19] LABS: Absolute Lymphocyte Count 1.11 X10^3/ul (0.83-4.51); Absolute Neutrophil Count 7.6 X10^3/uL (2.0-7.7); Basophil# 0.01 X10^3/uL; Basophil% 0.1 % (0-1); Eosinophil# 0.07 X10^3/uL; Eosinophils% 0.7 % (0-5); Hematocrit 50.9 % (37-47); Hemoglobin 15.3 g/dl (12.0-15.0); Lymphocyte # 1.11 X10^3/ul (4.0); Lymphocyte % 11.6 % (19-41); Mean Corp Hgb Conc 30.1 g/gl (32-36); Mean Corpuscular Hgb 29.9 pg (27.0-32.0); Mean Corpuscular Volume 99.6 fL (81-99); Mean Platelet Vol. 12.1 fl (6.2-12.0); Monocyte# 0.76 X10^3/uL; Neutrophil # 7.56 X10^3/uL (2.7-7.7); Neutrophil % 79.3 % (47-70); Platelet Count 206 K/mm3 (150-450); RBC Distribution Width CV 16.2 % (11.6-14.6); RBC Distribution Width SD 60.2 fl (35.1-43.9); Red Blood Count 5.11 M/mm3 (4.2-5.4); White Blood Count 9.5 K/mm3 (4.4-11.0)
[2017-11-16 12:28] LABS: POSITIVE COUNT NO; POSITIVE DIFFERENTIAL NO; POSITIVE MORPHOLOGY NO
[2017-11-16] MEDS: 0.9% Normal Saline 1,000 ML 250 ML IV (12:45)
--- NOTE | 2017-11-16 13:35 | CASEMGMT ---
Social Work Met with pt and daughter in room to discuss financial concerns. Pt does have medicare but no secondary and no prescription insurance. Discussed financial situation. SW assisted pt in completing Medicaid application. Pt and dgt unable to answer a few questions, SW instructed pt an dgt to complete form and return to SW and it will be faxed to [facility] or pt dgt can deliver to [facility] once completed. Provided community resource list to assist with prescription coverage. SW presented information of advance directives to pt and she would like to complete. Visitors entered the room at this time and pt requested SW come back at a later time. SW will follow up for advance directive paperwork. JASEN Maldonado
[2017-11-16 14:40] LABS: Anion Gap 7 (5-15); BUN 41 mg/dL (7-18); BUN/Creat Ratio 23.3 RATIO (10-20); Calcium,Total 8.8 mg/dL (8.5-10.1); Chloride 111 mmol/L (98-107); Creatinine, Serum 1.76 mg/dL (0.55-1.02); EST Glomerular Filtration Rate 30 mL/min (>60); Est Glom Filt Rate - Afr Amer 37 mL/min (>60); Estimated Creatinine Clearance 27.15 ml/min; Glucose 105 mg/dL (74-106); Sodium Level 146 mmol/L (136-145)
--- NOTE | 2017-11-16 15:43 | CASEMGMT ---
ANGEL CM Note. Per physician, pt will be dc'd on Xarelto. Savings card is available, however after 30 days, pt may not be able to afford. [facility] application was completed in hospital. Financial assistance form printed for Xarelto. Demographics completed and will give to pt on dc along with Xarelto 30 day free trial offer card. Pt can take to PCP to complete per Hospitalist. Attempted to speak with pt. She is very sleepy and unable to fully understand conversation @ this time. WHIT will attempt another visit in am. Juliann VILLALPANDON RN ACM
--- NOTE | 2017-11-16 16:49 | PCM.PN.CARD ---
Subjectve: The patient noted feeling dizzy and lightheaded earlier this day. She was noted to be somewhat hypotensive. She was treated with IV fluids. Her blood pressure has improved. She did not complain of any obvious palpitations or rapid rates. She had no other concerns of chest discomfort. There also is been no other concerns of abdominal discomfort. She continues to note an element of lower extremity edema. Objective: Vital Signs Temp Pulse Resp BP Pulse Ox 98.0 F 65 16 115/62 96 11/16/17 14:05 11/16/17 15:21 11/16/17 14:05 11/16/17 14:05 11/16/17 14:05 Oxygen Flow Rate (L/min) 2 Oxygen Delivery Method Nasal Cannula Weight: 350 lb 3.198 oz Body Mass Index (BMI) 58.2 Intake and Output for Last 24 Hours 11/14/17 11/15/17 11/16/17 23:59 23:59 23:59 Intake Total 882.6 / 882.6 868 / 868 980 / 980 Output Total 300 / 300 700 / 700 Balance 882.6 / 882.6 568 / 568 280 / 280 General: Awake, Alert, Oriented x 3, Cooperative, Obese HEENT: Atraumatic, Normocephalic, PERRL, EOMI, Sclera Non Icteric Oral: Moist Mucosa Neck: Supple, Good ROM, No JVD Lungs: - - Inspiratory wheezing: Sternal notch area Cardiovascular: Regular Rhythm, Normal S1, Normal S2 Abdomen: Bowel Sounds Present, Soft, Non Tender Extremities: Trace RLE Edema, Trace LLE Edema Neurological: No Focal Motor or Sensory Deficit Psych/Mental Status: Appropriate, Normal Affect 11/16/17 05:30: Sodium 145, Potassium 6.0 H*, Chloride 110 H, Carbon Dioxide 30.0, Anion Gap 5, BUN 38 H, Creatinine 1.93 H, Est GFR (MDRD) Af Amer 33 L, Est GFR (MDRD) Non-Af 27 L, BUN/Creatinine Ratio 19.7, Glucose 137 H, Calcium 9.1 11/16/17 05:30: WBC 9.5, RBC 5.11, Hgb 15.3 H, Hct 50.9 H, MCV 99.6 H, MCH 29.9, MCHC 30.1 L, RDW 16.2 H, RDW Differential 60.2 H, Plt Count 206, MPV 12.1 H, Immature Gran % (Auto) 0.300, Neut % (Auto) 79.3 H, Lymph % (Auto) 11.6 L, [place] % (Auto) 8.0, Eos % (Auto) 0.7, Baso % (Auto) 0.1, Absolute Neuts (auto) 7.6, Total Counted Not Reportable 11/16/17 06:55: Sodium Cancelled, Potassium Cancelled, Chloride Cancelled, Carbon Dioxide Cancelled, Anion Gap Cancelled, BUN Cancelled, Creatinine Cancelled, Est GFR (MDRD) Af Amer Cancelled, Est GFR (MDRD) Non-Af Cancelled, BUN/Creatinine Ratio Cancelled, Glucose Cancelled, Calcium Cancelled 11/16/17 07:20: Sodium 141, Potassium 5.8 H, Chloride 111 H, Carbon Dioxide 25.0, Anion Gap 5, BUN 39 H, Creatinine 1.89 H, Est GFR (MDRD) Af Amer 34 L, Est GFR (MDRD) Non-Af 28 L, BUN/Creatinine Ratio 20.6 H, Glucose 133 H, Calcium 8.8 11/16/17 14:10: Sodium 146 H, Potassium 5.0, Chloride 111 H, Carbon Dioxide 28.0, Anion Gap 7, BUN 41 H, Creatinine 1.76 H, Est GFR (MDRD) Af Amer 37 L, Est GFR (MDRD) Non-Af 30 L, BUN/Creatinine Ratio 23.3 H, Glucose 105, Calcium 8.8 Rhythm: Sinus rhythm/sinus bradycardia EKG: Sinus rhythm; right bundle branch block pattern Medical Necessity - Tobacco Use Smoking Status: Former smoker - quit 1989 smoked x 10 years Tobacco Use: Cigarettes Assessment/Plan 1. Atrial flutter with rapid ventricular response The patient has undergone noninvasive evaluation. She is undergone synchronized biphasic DC cardioversion. She did regain sinus rhythm. She will continue rate control therapy and anticoagulant therapy at this time. 2. Cardiomyopathy Based upon her noninvasive studies she does have diminished LV systolic function as well as right ventricular enlargement and diminished RV systolic function. There is a concern that her diminished LV systolic function may be related to her underlying atrial dysrhythmia and rapid ventricular response. Hopefully she will remain in sinus rhythm and with medications this will improve. This can be followed with noninvasive studies. There is concern about her right sided enlargement and dysfunction. There is concern this may be related to underlying pulmonary disease process such as obstructive sleep apnea. Thus would be very reasonable that the patient be evaluated for pulmonology for further evaluation recommendations. 3. Hypertension She was noted to have recurrent hypotension. This appeared to be status post an attempt at IV diuresis to assist with her pleural effusions and her lower extremity edema. It is unclear as to exactly what her MEGA's are as they not have been captured adequately. The patient did receive fluid replacement with IV normal saline. She had improvement in her blood pressures. 4. Acute renal insufficiency The patient was noted to have increased creatinine level and increased potassium levels. This is status post receiving her IV diuresis with potassium supplement as well as her CT scan of the chest with IV contrast. It is unclear whether this change in her renal function potassium was related to her diuresis and potassium supplement and/or her chest CT scan with IV contrast and/or combination of both. Thus far there appears to be no other obvious symptoms or objective studies to suggest other diagnoses. She has received IV fluids. She did receive potassium lowering medication. Her creatinine is now decreasing her potassium is decreasing. 5. GERD She states she has a history of GERD. She states she cannot tolerate aspirin because it upsets my stomach . She is unclear whether she ever took coated aspirin and whether that would bother her in any negative way. 6. Obesity The patient is morbidly obese. This may be contributing to her diagnosis, symptoms, etc. This can make it challenging with respect to further diagnostic studies, etc. Comment: The above was discussed with the patient, her family, and Dr. Gutierres. This note was generated with [employer] software. It may contain incorrect words, spelling, and punctuation that were not noted in checking the note before signing.
[2017-11-16] MEDS: Rivaroxaban 20 MG Tablet PO (18:13)
--- NOTE | 2017-11-16 19:50 | PN_ITS ---
Patient Problems: Active and Suspected Problems Atrial flutter (Acute) Chest pain (Acute) Shortness of breath (Acute) Subjective: Patient was seen and examined today, earlier in the day, patient's blood pressure has been low, she was given 2 fluid boluses with correction of her blood pressure. Patient was also given Kayexalate due to a slightly high potassium this morning, repeat BMP this afternoon showed improved level of potassium and improve creatinine. I talked to the patient's family who were in the room tonight concerning her medical care. - Physical Exam General: Alert, Oriented x3, Cooperative, No apparent distress, Well developed, Well nourished HEENT: Atraumatic, PERRLA, EOMI, Normocephalic Oral: Moist Mucosa Neck: Supple, No JVD, No Nuchal Rigidity, Trachea Midline, Thyroid Normal Size and Texture Lungs: Clear to auscultation, Normal air movement, No rhonchi, No wheeze, No rales Cardiovascular: Regular rate, No murmurs, PMI Normal, Bradycardic, No rub noted , No Gallop Abdomen: Bowel Sounds Present, Soft, Non Tender, Non-Distended, Obese Extremities: No clubbing, No cyanosis, Capillary Refill Less than 3 Seconds, Edema - Mild +1 mm edema is noted in the pretibial areas Skin: No rashes, No breakdown Musculoskeletal: No Tenderness to Palpation of Joints or Extremities, No Muscle Wasting Neurological: Cranial nerves II-XII grossly intact, Neuro grossly intact, Sensory exam intact to light touch and pain, Coordination normal Psych/Mental Status: Normal Affect, Appropriate, Alert and oriented to time, place, person, mood and affect Vital Signs Temp Pulse Resp BP Pulse Ox 98.0 F 65 16 115/62 96 11/16/17 14:05 11/16/17 15:21 11/16/17 14:05 11/16/17 14:05 11/16/17 14:05 Oxygen Flow Rate (L/min) 2 Oxygen Delivery Method Nasal Cannula Weight: 158.848 kg Body Mass Index (BMI) 58.2 Intake and Output for Last 24 Hours 11/14/17 11/15/17 11/16/17 23:59 23:59 23:59 Intake Total 882.6 / 882.6 868 / 868 1530 / 1530 Output Total 300 / 300 1300 / 1300 Balance 882.6 / 882.6 568 / 568 230 / 230 Laboratory Tests Past 24 Hrs 11/16/17 11/16/17 11/16/17 05:30 05:30 06:55 WBC 9.5 RBC 5.11 Hgb 15.3 H Hct 50.9 H MCV 99.6 H MCH 29.9 MCHC 30.1 L RDW 16.2 H RDW Differential 60.2 H Plt Count 206 MPV 12.1 H Immature Gran % (Auto) 0.300 Neut % (Auto) 79.3 H Lymph % (Auto) 11.6 L [place] % (Auto) 8.0 Eos % (Auto) 0.7 Baso % (Auto) 0.1 Absolute Neuts (auto) 7.6 Absolute Lymphs (auto) 1.11 Total Counted Not Reportable Sodium 145 Cancelled Potassium 6.0 H* Cancelled Chloride 110 H Cancelled Carbon Dioxide 30.0 Cancelled Anion Gap 5 Cancelled BUN 38 H Cancelled Creatinine 1.93 H Cancelled Estim Creat Clear Calc 24.75 Cancelled Est GFR (MDRD) Af Amer 33 L Cancelled Est GFR (MDRD) Non-Af 27 L Cancelled BUN/Creatinine Ratio 19.7 Cancelled Glucose 137 H Cancelled Calcium 9.1 Cancelled 11/16/17 11/16/17 07:20 14:10 WBC RBC Hgb Hct MCV MCH MCHC RDW RDW Differential Plt Count MPV Immature Gran % (Auto) Neut % (Auto) Lymph % (Auto) [place] % (Auto) Eos % (Auto) Baso % (Auto) Absolute Neuts (auto) Absolute Lymphs (auto) Total Counted Sodium 141 146 H Potassium 5.8 H 5.0 Chloride 111 H 111 H Carbon Dioxide 25.0 28.0 Anion Gap 5 7 BUN 39 H 41 H Creatinine 1.89 H 1.76 H Estim Creat Clear Calc 25.28 27.15 Est GFR (MDRD) Af Amer 34 L 37 L Est GFR (MDRD) Non-Af 28 L 30 L BUN/Creatinine Ratio 20.6 H 23.3 H Glucose 133 H 105 Calcium 8.8 8.8 Medical Necessity - Tobacco Use Smoking Status: Former smoker - quit 1989 smoked x 10 years Tobacco Use: Cigarettes Assessment/Plan All Active Problems Atrial flutter (Acute) Chest pain (Acute) Shortness of breath (Acute) #1 acute atrial flutter with RVR-now converted to sinus rhythm after cardioversion, cardiology will adjust medications, she remains on anticoagulation #2 cardiomyopathy-probably rate controlled but possibly ischemic, cardiology will adjust medications #3 hypotension-probably secondary to volume depletion, patient was given fluids today #4 super morbid obesity #5 Acute kidney injury on a backdrop of chronic kidney disease stage III-labs will be repeated tomorrow, she was given fluids today #6 hypertension #7 GERD #8 pulmonary hypertension Code Visit Inpatient E&M: 90470 Subs Hosp L2
[2017-11-16] MEDS: Carvedilol 3.125 MG TABLET PO (20:20)
[2017-11-17] VITALS (24 sets, daily range): BP systolic 91–140; BP diastolic 50–77; PULSE 53–85; RESP 12–20; TEMP 36.6–36.9; O2SAT 92–100
[2017-11-17] MEDS: Acetaminophen 325 MG Tablet 650 MG PO (00:23)
[2017-11-17 07:34] LABS: Anion Gap 5 (5-15); BUN 40 mg/dL (7-18); BUN/Creat Ratio 25.8 RATIO (10-20); Calcium,Total 8.9 mg/dL (8.5-10.1); Chloride 111 mmol/L (98-107); Creatinine, Serum 1.55 mg/dL (0.55-1.02); EST Glomerular Filtration Rate 35 mL/min (>60); Est Glom Filt Rate - Afr Amer 43 mL/min (>60); Estimated Creatinine Clearance 30.82 ml/min; Glucose 115 mg/dL (74-106); Potassium 4.8 mmol/L (3.5-5.1); Sodium Level 147 mmol/L (136-145)
--- NOTE | 2017-11-17 08:16 | RAD_ITS ---
STUDY: X-RAY CHEST REASON FOR EXAM: Female, 67 years old. Shortness of breath. TECHNIQUE: AP and lateral views of the chest. COMPARISON: Comparison is made with prior study dated November 14, 2017. FINDINGS: The now is evidence of bibasilar patchy infiltrates. There is blunting of left costophrenic angle. There is moderate cardiac enlargement. Normal mediastinum and angi. Normal visualized pulmonary arteries. There is atherosclerotic tortuosity of the aortic arch and descending thoracic aorta. Normal visualized thoracic spine. Normal visualized ribs, clavicles, and shoulders. There is no demonstrated abnormality of the visualized soft tissue structures of the upper abdomen. RAD/Chest PA and Lateral IMPRESSION: Cardiomegaly. Bibasilar patchy infiltrates. Follow-up is recommended. Electronically Signed: Lewis Aguirre MD at 10:44 EDT Tel [phone], Service support ,
[2017-11-17] MEDS: Carvedilol 3.125 MG TABLET PO ×2 (09:42→22:10)
[2017-11-17] MEDS: Pantoprazole Sodium 20 MG Tablet PO (09:42)
[2017-11-17 10:25] LABS: Allen Test POS; Base Excess -2 mmol/L (-2 to +2); Bicarbonate 29.3 mmol/L (22-26); Blood Gas Specimen Type ART; O2 Delivery Device Nasal Can; PO2 93 mmHG (75-100); SITE L Radial; SO2 91 % (95-99); Time Given 1012; Total Carbon Dioxide 33 mmol/L; pCO2 114.7 mmHg (35-45); pH 7.02 (7.35-7.45)
--- NOTE | 2017-11-17 10:38 | PCM.PN.CARD ---
Subjectve: The patient was evaluated earlier this day. She appeared to be lethargic. She did awaken to answer questions and quickly returned to sleep. Objective: Vital Signs Temp Pulse Resp BP Pulse Ox 98.2 F 84 16 123/67 H 92 11/17/17 09:36 11/17/17 09:36 11/17/17 09:36 11/17/17 09:36 11/17/17 09:36 Oxygen Flow Rate (L/min) 4 Oxygen Delivery Method Nasal Cannula Weight: 350 lb 3.198 oz Body Mass Index (BMI) 58.2 Intake and Output for Last 24 Hours 11/15/17 11/16/17 11/17/17 23:59 23:59 23:59 Intake Total 868 / 868 1530 / 1530 Output Total 300 / 300 1900 / 1900 500 / 500 Balance 568 / 568 -370 / -370 -500 / -500 General: Lethargic, Obese Lungs: - - Diminished inspiratory effort Cardiovascular: Regular Rhythm, Premature Ectopic Beats, Normal S1, Normal S2 - Distant heart tones Abdomen: Bowel Sounds Present, Soft, Non Tender Extremities: Trace RLE Edema, Trace LLE Edema 11/16/17 05:30: WBC 9.5, RBC 5.11, Hgb 15.3 H, Hct 50.9 H, MCV 99.6 H, MCH 29.9, MCHC 30.1 L, RDW 16.2 H, RDW Differential 60.2 H, Plt Count 206, MPV 12.1 H, Immature Gran % (Auto) 0.300, Neut % (Auto) 79.3 H, Lymph % (Auto) 11.6 L, [place] % (Auto) 8.0, Eos % (Auto) 0.7, Baso % (Auto) 0.1, Absolute Neuts (auto) 7.6, Total Counted Not Reportable 11/16/17 14:10: Sodium 146 H, Potassium 5.0, Chloride 111 H, Carbon Dioxide 28.0, Anion Gap 7, BUN 41 H, Creatinine 1.76 H, Est GFR (MDRD) Af Amer 37 L, Est GFR (MDRD) Non-Af 30 L, BUN/Creatinine Ratio 23.3 H, Glucose 105, Calcium 8.8 11/17/17 06:45: Sodium 147 H, Potassium 4.8, Chloride 111 H, Carbon Dioxide 31.0, Anion Gap 5, BUN 40 H, Creatinine 1.55 H, Est GFR (MDRD) Af Amer 43 L, Est GFR (MDRD) Non-Af 35 L, BUN/Creatinine Ratio 25.8 H, Glucose 115 H, Calcium 8.9 11/17/17 10:13: pH 7.02 L*, Bicarbonate Actual 29.3 H, POC Total CO2 33, Base Excess -2, O2 Saturation 91 L, ABG pCO2 114.7 H*, ABG pO2 93, Andrew Test POS Rhythm: Sinus rhythm; PACs; atrial bigeminy CXR: Preliminary evaluation: Rotated: Pleural effusion: Cannot exclude infiltrate: Final report pending Medical Necessity - Tobacco Use Smoking Status: Former smoker - quit 1989 smoked x 10 years Tobacco Use: Cigarettes Assessment/Plan 1. Atrial flutter with rapid ventricular response The patient has undergone noninvasive evaluation. She is undergone synchronized biphasic DC cardioversion. She did regain sinus rhythm. She will continue rate control therapy and anticoagulant therapy at this time. 2. Cardiomyopathy Based upon her noninvasive studies she does have diminished LV systolic function as well as right ventricular enlargement and diminished RV systolic function. There is a concern that her diminished LV systolic function may be related to her underlying atrial dysrhythmia and rapid ventricular response. Hopefully she will remain in sinus rhythm and with medications this will improve. This can be followed with noninvasive studies. There is concern about her right sided enlargement and dysfunction. There is concern this may be related to underlying pulmonary disease process such as obstructive sleep apnea. Thus would be very reasonable that the patient be evaluated for pulmonology for further evaluation recommendations. 3. Hypertension She was noted to have recurrent hypotension. This appeared to be status post an attempt at IV diuresis to assist with her pleural effusions and her lower extremity edema. She did require IV fluid support. Her blood pressure appears to have improved. 4. Acute renal insufficiency The patient was noted to have increased creatinine level and increased potassium levels. This is status post receiving her IV diuresis with potassium supplement as well as her CT scan of the chest with IV contrast. It is unclear whether this change in her renal function potassium was related to her diuresis and potassium supplement and/or her chest CT scan with IV contrast and/or combination of both. Thus far there appears to be no other obvious symptoms or objective studies to suggest other diagnoses. She has received IV fluids. She did receive potassium lowering medication. Her creatinine continues to decrease. 5. GERD She states she has a history of GERD. She states she cannot tolerate aspirin because it upsets my stomach . She is unclear whether she ever took coated aspirin and whether that would bother her in any negative way. 6. Obesity The patient is morbidly obese. This may be contributing to her diagnosis, symptoms, etc. This can make it challenging with respect to further diagnostic studies, etc. 7. Lethargy The patient appeared to be lethargic. She was reported this way by the nursing staff. She was found this way on subsequent evaluation. Additional laboratory studies were obtained with an ABG. Her ABG was noted to be abnormal with increased PCO2 and decreased pH. She is being further evaluated by internal medicine at this time with a request for consultation by pulmonology. Comment: The above was discussed with the patient and Dr. Gutierres. This note was generated with [employer] dictation software. It may contain incorrect words, spelling, and punctuation that were not noted in checking the note before signing.
--- NOTE | 2017-11-17 11:02 | CASEMGMT ---
Addendum entered by Vanessa Berger 11/17/17 13:12: Pt is being moved to ICU, not appropriate to complete LW/POA at this time. SW will continue to follow, will speak w/pt about LW/POA when appropriate. PAIGE Grace, [place] Original Note: SW attempted to meet w/pt this morning in regard to completing POA papers, pt is sleeping at this time. SW will continue to follow, will attempt to speak w/pt this afternoon. PAIGE Grace, [place]
--- NOTE | 2017-11-17 12:47 | PCM.CONS.GEN ---
Reason for Consult Date of Consultation: 11/17/17 Reason for Consultation: Acute hypercarbic respiratory failure History of Present Illness: The patient is a 67-year-old female, with a history as outlined below, who presented to the emergency department November 14 with shortness of breath in the setting of atrial flutter with rapid ventricular rate. The patient was seen in consultation by cardiology. A rate control strategy was employed. Transesophageal echocardiogram was completed on November 15, after which time, the patient underwent bedside cardioversion. The patient was being medically optimized from a cardiology perspective. On the morning of November 17, the patient was noted to be less responsive than previous. An arterial blood gas was obtained which revealed a pH of 7.02 with a PCO2 of 114 and a PO2 of 93. The patient was reportedly only minimally responsive to noxious stimulation at that time. The patient was subsequently placed on BiPAP therapy with a pressure support setting of 16/10 cm of water. However, following several hours of noninvasive positive pressure ventilation, the patient remained hypercarbic and was essentially obtunded. Upon my examination of the patient, she was nonresponsive to verbal or tactile stimulation. Therefore, the decision was made to emergently transfer the patient to the medical intensive care unit. Although the patient did receive diuretics, her serum bicarbonate level has not fluctuated greatly from the time of her admission, at which time, she was noted to be 27. This morning, her bicarbonate was noted to be 31. Aside from mild hypernatremia and resolving renal insufficiency, no other significant metabolic derangements are present. The patient has not received any narcotics or respiratory depressing medications per my review of the MAR. Upon arrival to the ICU, the decision was made to emergently intubate the patient for airway protection, given her obtunded state. The patient was premedicated with 20 mg of etomidate. She was placed in appropriate sniffing position. Video laryngoscopy was performed, which revealed an anterior airway and a grade 3 view. A #8 endotracheal tube was placed in appropriate position. Positive color change was noted. Equal breath sounds were auscultated. The endotracheal tube was secured at 22 cm of the lip. Past Medical History Past Medical History (Chronic Problems): Chronic Problems Morbid obesity (Chronic) HTN (hypertension) (Chronic) GERD (gastroesophageal reflux disease) (Chronic) Allergies aspirin [ASA] Adverse Reaction (Verified 11/14/17 14:34) stomach burning and sick to stomach propoxyphene HCl [From Darvon] Adverse Reaction (Verified 11/14/17 14:34) i get dizzy and pass out Home Medications: Ambulatory Orders Medication Instructions Recorded Lisinopril [Zestril] 30 mg PO DAILY 07/02/16 [place]-3 Fatty Acids/Fish Oil [Fish 1 each PO DAILY 07/02/16 Oil 1,000 mg Capsule] Calcium Carbonate/Vitamin D3 1 each PO DAILY 11/14/17 [Calcium 500+D Tablet Chew] Omeprazole [Omeprazole] 20 mg PO DAILY 11/14/17 Surgical History: hysterectomy - total Psychiatric History: No pertinent psych hx 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 Patient Problems: Active and Suspected Problems Atrial flutter (Acute) Chest pain (Acute) Shortness of breath (Acute) Objective: The patient's most recent lab work, culture data and imaging studies have all been personally reviewed. Surface echocardiogram revealed mild concentric LVH with mild global left systolic dysfunction and an ejection fraction of 45%. Right ventricular systolic pressure was estimated to be 34 mmHg. - Physical Exam General: - - Intubated, sedated and mechanically ventilated currently. HEENT: Atraumatic, PERRLA, Normocephalic Oral: No Gingival or Mucosal Lesions/ Ulcerations, - - Edentulous Neck: Supple, No Nodes, Trachea Midline, - - Large neck circumference with redundant soft tissue. Lungs: No rhonchi, No wheeze, No rales, Diminished Cardiovascular: Regular rate, Regular Rhythm, Normal S1, Normal S2, No murmurs Abdomen: Bowel Sounds Present, Soft, Non Tender, Distended, Obese Extremities: No clubbing, No cyanosis, Edema - Trace LE Skin: No breakdown Musculoskeletal: No Tenderness to Palpation of Joints or Extremities, No Muscle Wasting Lymphatic: No Cervical, Supraclavicular, or Inguinal Adenopathy Neurological: - - Prior to intubation, the patient was noted to be obtunded and nonresponsive to verbal and tactile stimulation. Vital Signs Temp Pulse Resp BP Pulse Ox 98.4 F 62 16 123/55 H 95 11/17/17 11:50 11/17/17 11:50 11/17/17 11:50 11/17/17 11:50 11/17/17 11:50 Oxygen Flow Rate (L/min) 4 Oxygen Delivery Method Bi-pap Weight: 350 lb 3.198 oz Body Mass Index (BMI) 58.2 Intake and Output for Last 24 Hours 11/15/17 11/16/17 11/17/17 23:59 23:59 23:59 Intake Total 868 / 868 1530 / 1530 100 / 100 Output Total 300 / 300 1900 / 1900 650 / 650 Balance 568 / 568 -370 / -370 -550 / -550 Laboratory Tests Past 24 Hrs 11/16/17 11/17/17 11/17/17 14:10 06:45 10:13 Specimen Type ART Sample Site L Radial pH 7.02 L* Bicarbonate Actual 29.3 H POC Total CO2 33 Base Excess -2 O2 Saturation 91 L ABG pCO2 114.7 H* ABG pO2 93 Andrew Test POS O2 Delivery Device Nasal Can Liter Flow 4.0 Blood Gas Notified Whom [facility] Blood Gas Notified Time 1012 Sodium 146 H 147 H Potassium 5.0 4.8 Chloride 111 H 111 H Carbon Dioxide 28.0 31.0 Anion Gap 7 5 BUN 41 H 40 H Creatinine 1.76 H 1.55 H Estim Creat Clear Calc 27.15 30.82 Est GFR (MDRD) Af Amer 37 L 43 L Est GFR (MDRD) Non-Af 30 L 35 L BUN/Creatinine Ratio 23.3 H 25.8 H Glucose 105 115 H Calcium 8.8 8.9 Clinical Impression(s) from Imaging Studies Chest X-Ray 11/14/17 09:52 IMPRESSION: Cardiomegaly. Mild increased markings at the lung bases suggestive of linear atelectasis and/or scarring. Electronically Signed: Lewis Aguirre MD at 10:22 EDT Tel [phone], Service support , Chest CTA 11/15/17 14:45 IMPRESSION: Bilateral pleural effusions with bibasilar infiltration and/or atelectasis. Focal infiltrate in the posterior aspect of the exam of the left upper lobe as well as increased markings in the right middle lobe. Electronically Signed: Lewis Aguirre MD at 15:39 EDT Tel [phone], Service support , Chest X-Ray 11/17/17 08:16 IMPRESSION: Cardiomegaly. Bibasilar patchy infiltrates. Follow-up is recommended. Electronically Signed: Lewis Aguirre MD at 10:44 EDT Tel [phone], Service support , Assessment/Plan All Active Problems Atrial flutter (Acute) Chest pain (Acute) Shortness of breath (Acute) RECOMMENDATIONS: 1. Obtain repeat arterial blood gas in 1 hour. 2. Obtain and send sputum for culture. 3. Check comprehensive metabolic profile, TSH and ammonia level. 4. Continue fentanyl for sedation. Maintain RASS of -1 to 1. 5. Transition from p.o. Protonix to IV. 6. Obtain CT head to rule out intracranial process. IMPRESSIONS: 1. Acute hypoxemic and hypercarbic respiratory failure Unclear etiology for the patient's acute decompensation from a respiratory perspective. She does not have significant metabolic derangements, nor did she receive any sedating medications recently. Regardless, the patient was placed on BiPAP therapy, despite having a PCO2 level greater than 100. She was notably obtunded upon my examination and was transferred to the ICU where she was intubated. Will continue invasive mechanical ventilatory support, with plans to repeat arterial blood gas in 1 hour. Repeat plain film chest x-ray is concerning for potential evolving infiltrates bilaterally versus pulmonary edema. Nevertheless, the patient is currently without evidence of a leukocytosis and is afebrile. Therefore, we will hold off on starting antibiotics at this time. Sedation will be initiated to maintain a RASS of -1 to 1. 2. Encephalopathy The patient has profound hypercapnia on ABG. Given that the patient is currently anticoagulated and recently underwent a NEREYDA cardioversion, would recommend dedicated head imaging to evaluate for potential stroke versus intracranial bleed. We will also plan to check a comprehensive metabolic profile, along with ammonia and TSH level. 3. Atrial flutter with rapid ventricular response/underlying cardiomyopathy Continue current medical management per cardiology recommendations. Repeat echocardiogram is currently pending. 4. Suspected sleep disordered breathing The patient undoubtedly needs to be followed up as an outpatient to undergo a formal diagnostic polysomnogram. However, in the interim, when the patient is appropriate for a trial of extubation, will initiate empiric BiPAP therapy on a nocturnal basis. 5. Acute kidney injury Potentially secondary to contrast administration multiple days ago. Her renal function has been slowly improving with time. Urine output is currently appropriate. We will continue to monitor. No indication for renal replacement therapy at this time. 6. Super morbid obesity/GERD/hypertension Complicates care, management, recovery and prognosis. Hold antihypertensives at this time. Transition to Protonix IV. Obtain nutrition consultation for tube feed recommendations. TIME: 60 minutes of critical care time, independent of procedures, was spent addressing the patient's acute hypoxemic and hypercarbic respiratory failure, encephalopathy, atrial flutter with rapid ventricular response, suspected sleep disordered breathing, acute kidney injury, review of all data and collaboration with the care team. ([id number]) Code Visit [id number]: [id number] Critical care first hour
--- NOTE | 2017-11-17 12:50 | CON.PCM_ITS ---
Reason for Consult Date of Consultation: 11/17/17 Reason for Consultation: Acute hypercarbic respiratory failure History of Present Illness: The patient is a 67-year-old female, with a history as outlined below, who presented to the emergency department November 14 with shortness of breath in the setting of atrial flutter with rapid ventricular rate. The patient was seen in consultation by cardiology. A rate control strategy was employed. Transesophageal echocardiogram was completed on November 15, after which time, the patient underwent bedside cardioversion. The patient was being medically optimized from a cardiology perspective. On the morning of November 17, the patient was noted to be less responsive than previous. An arterial blood gas was obtained which revealed a pH of 7.02 with a PCO2 of 114 and a PO2 of 93. The patient was reportedly only minimally responsive to noxious stimulation at that time. The patient was subsequently placed on BiPAP therapy with a pressure support setting of 16/10 cm of water. However, following several hours of noninvasive positive pressure ventilation, the patient remained hypercarbic and was essentially obtunded. Upon my examination of the patient, she was nonresponsive to verbal or tactile stimulation. Therefore, the decision was made to emergently transfer the patient to the medical intensive care unit. Although the patient did receive diuretics, her serum bicarbonate level has not fluctuated greatly from the time of her admission, at which time, she was noted to be 27. This morning, her bicarbonate was noted to be 31. Aside from mild hypernatremia and resolving renal insufficiency, no other significant metabolic derangements are present. The patient has not received any narcotics or respiratory depressing medications per my review of the MAR. Upon arrival to the ICU, the decision was made to emergently intubate the patient for airway protection, given her obtunded state. The patient was premedicated with 20 mg of etomidate. She was placed in appropriate sniffing position. Video laryngoscopy was performed, which revealed an anterior airway and a grade 3 view. A #8 endotracheal tube was placed in appropriate position. Positive color change was noted. Equal breath sounds were auscultated. The endotracheal tube was secured at 22 cm of the lip. Past Medical History Past Medical History (Chronic Problems): Chronic Problems Morbid obesity (Chronic) HTN (hypertension) (Chronic) GERD (gastroesophageal reflux disease) (Chronic) Allergies aspirin [ASA] Adverse Reaction (Verified 11/14/17 14:34) stomach burning and sick to stomach propoxyphene HCl [From Darvon] Adverse Reaction (Verified 11/14/17 14:34) i get dizzy and pass out Home Medications: Ambulatory Orders Medication Instructions Recorded Lisinopril [Zestril] 30 mg PO DAILY 07/02/16 [place]-3 Fatty Acids/Fish Oil [Fish 1 each PO DAILY 07/02/16 Oil 1,000 mg Capsule] Calcium Carbonate/Vitamin D3 1 each PO DAILY 11/14/17 [Calcium 500+D Tablet Chew] Omeprazole [Omeprazole] 20 mg PO DAILY 11/14/17 Surgical History: hysterectomy - total Psychiatric History: No pertinent psych hx 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 Patient Problems: Active and Suspected Problems Atrial flutter (Acute) Chest pain (Acute) Shortness of breath (Acute) Objective: The patient's most recent lab work, culture data and imaging studies have all been personally reviewed. Surface echocardiogram revealed mild concentric LVH with mild global left systolic dysfunction and an ejection fraction of 45%. Right ventricular systolic pressure was estimated to be 34 mmHg. - Physical Exam General: - - Intubated, sedated and mechanically ventilated currently. HEENT: Atraumatic, PERRLA, Normocephalic Oral: No Gingival or Mucosal Lesions/ Ulcerations, - - Edentulous Neck: Supple, No Nodes, Trachea Midline, - - Large neck circumference with redundant soft tissue. Lungs: No rhonchi, No wheeze, No rales, Diminished Cardiovascular: Regular rate, Regular Rhythm, Normal S1, Normal S2, No murmurs Abdomen: Bowel Sounds Present, Soft, Non Tender, Distended, Obese Extremities: No clubbing, No cyanosis, Edema - Trace LE Skin: No breakdown Musculoskeletal: No Tenderness to Palpation of Joints or Extremities, No Muscle Wasting Lymphatic: No Cervical, Supraclavicular, or Inguinal Adenopathy Neurological: - - Prior to intubation, the patient was noted to be obtunded and nonresponsive to verbal and tactile stimulation. Vital Signs Temp Pulse Resp BP Pulse Ox 98.4 F 62 16 123/55 H 95 11/17/17 11:50 11/17/17 11:50 11/17/17 11:50 11/17/17 11:50 11/17/17 11:50 Oxygen Flow Rate (L/min) 4 Oxygen Delivery Method Bi-pap Weight: 350 lb 3.198 oz Body Mass Index (BMI) 58.2 Intake and Output for Last 24 Hours 11/15/17 11/16/17 11/17/17 23:59 23:59 23:59 Intake Total 868 / 868 1530 / 1530 100 / 100 Output Total 300 / 300 1900 / 1900 650 / 650 Balance 568 / 568 -370 / -370 -550 / -550 Laboratory Tests Past 24 Hrs 11/16/17 11/17/17 11/17/17 14:10 06:45 10:13 Specimen Type ART Sample Site L Radial pH 7.02 L* Bicarbonate Actual 29.3 H POC Total CO2 33 Base Excess -2 O2 Saturation 91 L ABG pCO2 114.7 H* ABG pO2 93 Andrew Test POS O2 Delivery Device Nasal Can Liter Flow 4.0 Blood Gas Notified Whom [facility] Blood Gas Notified Time 1012 Sodium 146 H 147 H Potassium 5.0 4.8 Chloride 111 H 111 H Carbon Dioxide 28.0 31.0 Anion Gap 7 5 BUN 41 H 40 H Creatinine 1.76 H 1.55 H Estim Creat Clear Calc 27.15 30.82 Est GFR (MDRD) Af Amer 37 L 43 L Est GFR (MDRD) Non-Af 30 L 35 L BUN/Creatinine Ratio 23.3 H 25.8 H Glucose 105 115 H Calcium 8.8 8.9 Clinical Impression(s) from Imaging Studies Chest X-Ray 11/14/17 09:52 IMPRESSION: Cardiomegaly. Mild increased markings at the lung bases suggestive of linear atelectasis and/or scarring. Electronically Signed: Lewis Aguirre MD at 10:22 EDT Tel [phone], Service support , Chest CTA 11/15/17 14:45 IMPRESSION: Bilateral pleural effusions with bibasilar infiltration and/or atelectasis. Focal infiltrate in the posterior aspect of the exam of the left upper lobe as well as increased markings in the right middle lobe. Electronically Signed: Lewis Aguirre MD at 15:39 EDT Tel [phone], Service support , Chest X-Ray 11/17/17 08:16 IMPRESSION: Cardiomegaly. Bibasilar patchy infiltrates. Follow-up is recommended. Electronically Signed: Lewis Aguirre MD at 10:44 EDT Tel [phone], Service support , Assessment/Plan All Active Problems Atrial flutter (Acute) Chest pain (Acute) Shortness of breath (Acute) RECOMMENDATIONS: 1. Obtain repeat arterial blood gas in 1 hour. 2. Obtain and send sputum for culture. 3. Check comprehensive metabolic profile, TSH and ammonia level. 4. Continue fentanyl for sedation. Maintain RASS of -1 to 1. 5. Transition from p.o. Protonix to IV. 6. Obtain CT head to rule out intracranial process. IMPRESSIONS: 1. Acute hypoxemic and hypercarbic respiratory failure Unclear etiology for the patient's acute decompensation from a respiratory perspective. She does not have significant metabolic derangements, nor did she receive any sedating medications recently. Regardless, the patient was placed on BiPAP therapy, despite having a PCO2 level greater than 100. She was notably obtunded upon my examination and was transferred to the ICU where she was intubated. Will continue invasive mechanical ventilatory support, with plans to repeat arterial blood gas in 1 hour. Repeat plain film chest x-ray is concerning for potential evolving infiltrates bilaterally versus pulmonary edema. Nevertheless, the patient is currently without evidence of a leukocytosis and is afebrile. Therefore, we will hold off on starting antibiotics at this time. Sedation will be initiated to maintain a RASS of -1 to 1. 2. Encephalopathy The patient has profound hypercapnia on ABG. Given that the patient is currently anticoagulated and recently underwent a NEREYDA cardioversion, would recommend dedicated head imaging to evaluate for potential stroke versus intracranial bleed. We will also plan to check a comprehensive metabolic profile, along with ammonia and TSH level. 3. Atrial flutter with rapid ventricular response/underlying cardiomyopathy Continue current medical management per cardiology recommendations. Repeat echocardiogram is currently pending. 4. Suspected sleep disordered breathing The patient undoubtedly needs to be followed up as an outpatient to undergo a formal diagnostic polysomnogram. However, in the interim, when the patient is appropriate for a trial of extubation, will initiate empiric BiPAP therapy on a nocturnal basis. 5. Acute kidney injury Potentially secondary to contrast administration multiple days ago. Her renal function has been slowly improving with time. Urine output is currently appropriate. We will continue to monitor. No indication for renal replacement therapy at this time. 6. Super morbid obesity/GERD/hypertension Complicates care, management, recovery and prognosis. Hold antihypertensives at this time. Transition to Protonix IV. Obtain nutrition consultation for tube feed recommendations. TIME: 60 minutes of critical care time, independent of procedures, was spent addressing the patient's acute hypoxemic and hypercarbic respiratory failure, encephalopathy, atrial flutter with rapid ventricular response, suspected sleep disordered breathing, acute kidney injury, review of all data and collaboration with the care team. ([id number]) Code Visit [id number]: [id number] Critical care first hour
[2017-11-17 12:56] LABS: Allen Test POS; Base Excess 0 mmol/L (-2 to +2); Bicarbonate 29.7 mmol/L (22-26); Blood Gas Specimen Type ART; EPAP 10; FI02 40; IPAP 16; PO2 71 mmHG (75-100); RR 19; SITE R Radial; SO2 85 % (95-99); Time Given 1240; Total Carbon Dioxide 33 mmol/L; pCO2 96.8 mmHg (35-45)
--- NOTE | 2017-11-17 13:06 | NURSING ---
report called to Oswald ORTIZ in ICU
[2017-11-17] MEDS: Etomidate 20 MG/10 ML Vial IV (13:30)
--- NOTE | 2017-11-17 13:32 | NURSING ---
Dr. King at bedside to intubate. Etomidate 20 mg IVP, IV fluids wide open 1333- Dr king intubating, resp & RN's at bedside. ET tube 8.0 inserted 22 cm at lip line with positive color change, pulse ox 95%. bp 71/26 1335 3 cc (0.3 mg) neosynephrine given IVP. BP 91/67. respiratory bagging with pulse ox 100% 1337 Fentanyl initiated IV infusion at 25 mcg/hour 1338 vent settings: TV450 rate 16 O2 50% 1339 fentanyl increased to 75 mcg/hr. patient resisting ventilator 1342 vent decreased to 400. Fentanyl increased to 150 mcg/hour, pt remains restless and resisting vent 1343 OG inserted. Fentanyl 100 mcg given IVP, pt continues resisting vent, bilat wrist restraints applied 1345 BP 64/52 but patient thrashing arms in bed 1346 neosynephrine 3 cc (0.3mg) given IVP 1347 pt quiet now, BP 99/44, p 60 1348 denney catheter inserted 1350 BP 73/38 1352 BP 80/33, P 60, pulse ox 97%
--- NOTE | 2017-11-17 13:55 | RAD_ITS ---
STUDY: X-RAY CHEST REASON FOR EXAM: Female, 67 years old. Tube placement. TECHNIQUE: Single AP portable view of the chest. COMPARISON: November 17, 2017. FINDINGS: Endotracheal tube, 0.5 cm above the kris. Feeding tube extends to the stomach in the upper abdomen Bilateral lower lung airspace opacities. Small bilateral pleural effusions. There is moderate cardiac enlargement. Normal mediastinum and angi. Normal visualized pulmonary arteries. Normal visualized aortic arch and descending thoracic aorta. There are diffuse degenerative changes of the visualized thoracic spine. Normal visualized ribs, clavicles, and shoulders. There is no demonstrated abnormality of the visualized soft tissue structures of the upper abdomen. RAD/Chest 1 View (Portable) IMPRESSION: Endotracheal tube and feeding tube placement. Bilateral infiltrates or edema and small effusions. Electronically Signed: Clarke Fragoso MD at 14:46 EDT , Service support ,
--- NOTE | 2017-11-17 13:57 | NURSING ---
Radiology at bedside for portable chest to verify ET placement. BP 92/51
--- NOTE | 2017-11-17 14:27 | CASEMGMT ---
RN CM Note: pt transferred to ICU, on ventilator. DC Plan undetermined, recommend Home oxygen testing prior to dc. Will follow PT/OT recommendations closer to dc for dc needs. Juliann VILLALPANDON RN ACM
--- NOTE | 2017-11-17 15:35 | ECHOD_ITS ---
Reason For Study: dyspnea/SOB Procedure This was a 2D Doppler, Color Flow transthoracic echocardiogram. The study was technically difficult. Contrast injection was performed. Exam performed portable in ICU/CCU. Left Ventricle Mildly dilated left ventricle. Mild concentric left ventricular hypertrophy. Left ventricular systolic function is normal. The estimated ejection fraction is 55 %. No regional wall motion abnormalities noted. Right Ventricle Moderately dilated right ventricle. Mild to moderate global right ventricular systolic dysfunction. Atria The left atrium is mildly enlarged. The right atrium is mildly enlarged. No doppler evidence for ASD. Mitral Valve There is mild mitral annular calcification. Extension of the mitral annular calcification onto the posterior mitral valve leaflet. Trivial mitral valve insufficiency. Tricuspid Valve Normal tricuspid valve. Trivial tricuspid valve insufficiency. Right ventricular systolic pressure estimated to be 35 mmHg. Aortic Valve Trisinus/trileaflet aortic valve. Mild focal aortic valve calcification. Pulmonic Valve The pulmonic valve is not well visualized. Trivial pulmonic valve insufficiency. Great Vessels Normal sized aortic root. Pericardium/Pleural No pericardial effusion. Medication Diluted definity 3.0ml given slow IV push to enhance endocardial definition. MMode/2D Measurements & Calculations LVIDd: 5.6 cm IVSd: 1.4 cm Ao root diam: 3.2 cm LVIDs: 4.3 cm LVPWd: 1.3 cm LA dimension: 5.4 cm RVDd: 4.0 cm FS: 22.8 % LAV(MOD-sp2): 74.7 ml Doppler Measurements & Calculations MV E max sergio: 104.4 cm/sec Ao V2 max: 172.2 cm/sec LV V1 max: 108.3 cm/sec MV A max sergio: 67.1 cm/sec Ao max P.9 mmHg LV V1 max P.7 mmHg MV E/A: 1.6 PA V2 max: 72.4 cm/sec TR max sergio: 260.3 cm/sec TR max P.3 mmHg Interpretation Summary The study was technically difficult. Contrast injection was performed. Mildly dilated left ventricle. Left ventricular systolic function is normal. The estimated ejection fraction is 55 %. Mild concentric left ventricular hypertrophy. Moderately dilated right ventricle. Mild to moderate global right ventricular systolic dysfunction. The left atrium is mildly enlarged. The right atrium is mildly enlarged. There is mild mitral annular calcification. Extension of the mitral annular calcification onto the posterior mitral valve leaflet. Trivial mitral valve insufficiency. Trivial tricuspid valve insufficiency. Trivial pulmonic valve insufficiency. Right ventricular systolic pressure estimated to be 35 mmHg. Transmitral diastolic flow velocities suggest diastolic dysfunction (pseudonormal pattern). Ordering Physician: Cornelio Hernandez Performed By: Laura Jonas, BRENNONCS, RVT
--- NOTE | 2017-11-17 16:30 | CT_ITS ---
STUDY: CT BRAIN WITHOUT CONTRAST REASON FOR EXAM: Female, 67 years old. Altered mental status RADIATION DOSAGE (If Supplied By Facility): CTDIvol = ( 44.99 ) mGy, DLP = ( 947.97 ) mGycm TECHNIQUE: Transaxial CT imaging of the brain was performed without administration of intravenous contrast material. Individualized dose optimization techniques were used for this CT. COMPARISON: None. FINDINGS: Endotracheal and nasogastric tubes are present. Normal calvarium. Normal size ventricles and extra-axial spaces for the patient's age. There are areas of decreased attenuation within the white matter tracts of the supratentorial brain, consistent with microvascular disease changes. Normal basal ganglia and thalami. Normal brainstem. Normal cerebellum. There is no intracranial hemorrhage. There are no findings of an acute ischemic infarction. Normal visualized paranasal sinuses. CT/Brain/Head without Contrast IMPRESSION: 1. Chronic involutional changes of the brain. 2. Nasogastric and endotracheal tubes are noted. 3. There is no intracranial hemorrhage or evidence of acute infarct. The visualized paranasal sinuses appear within normal limits. Electronically Signed: Kevin Newsome MD at 16:52 EDT , Service support ,
[2017-11-17 18:27] LABS: Absolute Lymphocyte Count 1.01 X10^3/ul (0.83-4.51); Absolute Neutrophil Count 5.4 X10^3/uL (2.0-7.7); Basophil# 0.01 X10^3/uL; Basophil% 0.1 % (0-1); Eosinophil# 0.06 X10^3/uL; Eosinophils% 0.8 % (0-5); Hematocrit 48.2 % (37-47); Hemoglobin 14.3 g/dl (12.0-15.0); Lymphocyte # 1.01 X10^3/ul (4.0); Lymphocyte % 13.7 % (19-41); Mean Corp Hgb Conc 29.7 g/gl (32-36); Mean Corpuscular Hgb 29.7 pg (27.0-32.0); Mean Corpuscular Volume 100.2 fL (81-99); Mean Platelet Vol. 9.9 fl (6.2-12.0); Monocyte# 0.83 X10^3/uL; Monocyte% 11.3 % (0-10); Neutrophil # 5.42 X10^3/uL (2.7-7.7); Neutrophil % 73.7 % (47-70); Platelet Count 131 K/mm3 (150-450); RBC Distribution Width CV 15.3 % (11.6-14.6); RBC Distribution Width SD 56.2 fl (35.1-43.9); Red Blood Count 4.81 M/mm3 (4.2-5.4); White Blood Count 7.4 K/mm3 (4.4-11.0)
--- NOTE | 2017-11-17 18:27 | PN_ITS ---
Patient Problems: Active and Suspected Problems Atrial flutter (Acute) Chest pain (Acute) Shortness of breath (Acute) Subjective: Patient was seen and examined today, she became more lethargic as the day grew on, she did not respond to any verbal stimuli only painful stimuli by movement. I was contacted by cardiology earlier in the day and cardiology stated that they ordered a blood gas on the patient, the blood gas showed her to be acidotic with PCO2's above 100 and PO2 in the 90s on 4 L. I ordered application of CPAP for the patient and then an hour later repeated the blood gas, this blood gas showed persistent acidosis with PCO2's in the 90s, pulmonary medicine saw the patient and transfer the patient to the ICU where she was intubated. She underwent a CT of her brain this afternoon which showed no acute process, the reason for her acidosis and hypercapnia is unknown at the present time, she did not receive any sedating medications, I suspect that she may have either a central apnea or an undiagnosed obstructive sleep apnea that caused the problem. Talked with pulmonary medicine about patient care as well as cardiology today. - Physical Exam General: - - Patient is sedated and on the ventilator HEENT: Atraumatic, PERRLA, Normocephalic Oral: Moist Mucosa Neck: No JVD, Trachea Midline, Thyroid Normal Size and Texture Lungs: Clear to auscultation, Normal air movement, No rhonchi, No wheeze, No rales Cardiovascular: Regular rate, Regular Rhythm, Normal S1, Normal S2, No murmurs, No Ectopic Activity, PMI Normal, No rub noted, No Gallop Abdomen: Bowel Sounds Present, Soft, Non Tender, Non-Distended, Obese, No hernias noted Extremities: No clubbing, No cyanosis, Capillary Refill Less than 3 Seconds, Edema - Generalized +1-2 mm edema of the pretibial areas noted Skin: No rashes, No breakdown Neurological: Cranial nerves II-XII grossly intact, Neuro grossly intact Psych/Mental Status: - - Patient is sedated and on the ventilator Vital Signs Temp Pulse Resp BP Pulse Ox 98.4 F 53 L 17 123/55 H 97 11/17/17 11:50 11/17/17 16:14 11/17/17 13:59 11/17/17 11:50 11/17/17 13:59 Oxygen Flow Rate (L/min) 4 Oxygen Delivery Method Mechanical Ventilator Weight: 158.848 kg Body Mass Index (BMI) 58.2 Intake and Output for Last 24 Hours 11/15/17 11/16/17 11/17/17 23:59 23:59 23:59 Intake Total 868 / 868 1530 / 1530 1259 / 1259 Output Total 300 / 300 1900 / 1900 900 / 900 Balance 568 / 568 -370 / -370 359 / 359 Laboratory Tests Past 24 Hrs 11/17/17 11/17/17 11/17/17 06:45 10:13 12:45 WBC RBC Hgb Hct MCV MCH MCHC RDW RDW Differential Plt Count Neut % (Auto) Absolute Neuts (auto) Total Counted Specimen Type ART ART Sample Site L Radial R Radial pH 7.02 L* 7.10 L* Bicarbonate Actual 29.3 H 29.7 H POC Total CO2 33 33 Base Excess -2 0 O2 Saturation 91 L 85 L O2 % 40 ABG pCO2 114.7 H* 96.8 H* ABG pO2 93 71 L Andrew Test POS POS Respiration Rate 19 O2 Delivery Device Nasal Can Bi / C PAP Liter Flow 4.0 EPAP 10 IPAP 16 Blood Gas Notified Whom HOSP MD HOSP MD Blood Gas Notified Time 1012 1240 Sodium 147 H Potassium 4.8 Chloride 111 H Carbon Dioxide 31.0 Anion Gap 5 BUN 40 H Creatinine 1.55 H Estim Creat Clear Calc 30.82 Est GFR (MDRD) Af Amer 43 L Est GFR (MDRD) Non-Af 35 L BUN/Creatinine Ratio 25.8 H Glucose 115 H Calcium 8.9 Total Bilirubin AST ALT Alkaline Phosphatase Troponin I Total Protein Albumin TSH 11/17/17 11/17/17 18:15 18:15 WBC Pending RBC Pending Hgb Pending Hct Pending MCV Pending MCH Pending MCHC Pending RDW Pending RDW Differential Pending Plt Count Pending Neut % (Auto) Pending Absolute Neuts (auto) Pending Total Counted Pending Specimen Type Sample Site pH Bicarbonate Actual POC Total CO2 Base Excess O2 Saturation O2 % ABG pCO2 ABG pO2 Andrew Test Respiration Rate O2 Delivery Device Liter Flow EPAP IPAP Blood Gas Notified Whom Blood Gas Notified Time Sodium Pending Potassium Pending Chloride Pending Carbon Dioxide Pending Anion Gap Pending BUN Pending Creatinine Pending Estim Creat Clear Calc Est GFR (MDRD) Af Amer Pending Est GFR (MDRD) Non-Af Pending BUN/Creatinine Ratio Pending Glucose Pending Calcium Pending Total Bilirubin Pending AST Pending ALT Pending Alkaline Phosphatase Pending Troponin I Pending Total Protein Pending Albumin Pending TSH Pending Medical Necessity - Tobacco Use Smoking Status: Former smoker - quit 1989 smoked x 10 years Tobacco Use: Cigarettes Assessment/Plan All Active Problems Atrial flutter (Acute) Chest pain (Acute) Shortness of breath (Acute) #1 acute combined respiratory failure-exact etiology unclear at this point, it is probably multifactorial, pulmonary medicine is managing the ventilator #2 Metabolic encephalopathy secondary to hypercapnic respiratory failure- patient is sedated on ventilator at this time #3 atrial flutter with RVR converted to normal sinus rhythm-patient remains in sinus rhythm at this point #4 cardiomyopathy-probably rate controlled but possibly ischemic, cardiology will adjust medications, repeat echocardiogram will be ordered by cardiology #5 super morbid obesity-complicates medical care #6 Acute kidney injury on a backdrop of chronic kidney disease stage III, creatinine was improved today #7 hypertension #8 GERD #9 pulmonary hypertension Code Visit Inpatient E&M: 63277 Subs Hosp L2
[2017-11-17 18:32] LABS: POSITIVE COUNT NO; POSITIVE DIFFERENTIAL NO; POSITIVE MORPHOLOGY NO
[2017-11-17 18:53] LABS: ALB/GLOB Ratio 0.8 RATIO (0.9-2.4); AST(SGOT) 22 U/L (15-37); Alanine Aminotransfer ALT/SGPT 45 U/L (13-56); Albumin, Serum 2.7 g/dL (3.2-5.0); Alkaline Phosphatase 111 U/L (45-117); Anion Gap 4 (5-15); BUN 38 mg/dL (7-18); BUN/Creat Ratio 25.9 RATIO (10-20); Calcium,Total 8.6 mg/dL (8.5-10.1); Chloride 112 mmol/L (98-107); Creatinine, Serum 1.47 mg/dL (0.55-1.02); EST Glomerular Filtration Rate 37 mL/min (>60); Est Glom Filt Rate - Afr Amer 45 mL/min (>60); Globulin 3.4 g/dL (2.2-4.2); Glucose 95 mg/dL (74-106); Protein, Total 6.1 g/dL (6.4-8.2); Sodium Level 147 mmol/L (136-145); Thyroid Stim Hormone (TSH) 0.96 uIU/mL (0.358-3.74)
[2017-11-17] MEDS: Rivaroxaban 20 MG Tablet PO (22:10)
[2017-11-17] MEDS: 0.9% NaCl PICC Flush IV (22:11)
[2017-11-17] MEDS: Chlorhexidine 15 ML PO (22:12)
[2017-11-17 22:20] LABS: Blood Gas Specimen Type VEN; FI02 40; O2 Delivery Device Vent; PEEP 5; RR 16; SITE L Brachial; Time Given 2210; VBG BASE EXCESS 2 mmol/L (-1.0-3.5); VBG Bicarbonate 28 mmol/L (22-26); VBG Oxygen Content 29 mmol/L (23-33); VBG PO2 35 mmHg (25-40); VBG SO2 62 % (50-70); VBG pCO2 51.1 mmHg (41-51); VBG pH 7.34 (7.32-7.42); Vt 400
[2017-11-17 23:11] LABS: M R Staph aureus DNA By PCR Negative (Negative); Probe Check PASS; Specimen Processing Control PASS
[2017-11-18] VITALS (41 sets, daily range): BP systolic 94–177; BP diastolic 53–81; PULSE 53–87; RESP 15–16; TEMP 36.3–37.2; O2SAT 89–95
[2017-11-18] MEDS: CHLORHEXIDINE GLUC 2% CLOTH 1 EACH TOWELETTE TOPICAL (01:28)
[2017-11-18] MEDS: 0.9% NaCl Peripheral Flush Adult/Peds IV ×2 (01:28→09:58)
[2017-11-18 04:59] LABS: Absolute Neutrophil Count 5.6 X10^3/uL (2.0-7.7); Basophil# 0.01 X10^3/uL; Basophil% 0.1 % (0-1); Eosinophil# 0.09 X10^3/uL; Eosinophils% 1.2 % (0-5); Hematocrit 47.2 % (37-47); Hemoglobin 14.5 g/dl (12.0-15.0); Mean Corp Hgb Conc 30.7 g/gl (32-36); Mean Corpuscular Hgb 29.8 pg (27.0-32.0); Mean Corpuscular Volume 96.9 fL (81-99); Mean Platelet Vol. 10.1 fl (6.2-12.0); Monocyte# 0.82 X10^3/uL; Neutrophil # 5.64 X10^3/uL (2.7-7.7); Neutrophil % 75.4 % (47-70); Platelet Count 132 K/mm3 (150-450); RBC Distribution Width CV 15.3 % (11.6-14.6); Red Blood Count 4.87 M/mm3 (4.2-5.4); White Blood Count 7.5 K/mm3 (4.4-11.0)
[2017-11-18 05:00] LABS: POSITIVE COUNT NO; POSITIVE DIFFERENTIAL NO; POSITIVE MORPHOLOGY NO
[2017-11-18 05:10] LABS: Anion Gap 7 (5-15); BUN 36 mg/dL (7-18); Calcium,Total 8.6 mg/dL (8.5-10.1); Chloride 114 mmol/L (98-107); Creatinine, Serum 1.16 mg/dL (0.55-1.02); EST Glomerular Filtration Rate 49 mL/min (>60); Est Glom Filt Rate - Afr Amer 59 mL/min (>60); Estimated Creatinine Clearance 41.19 ml/min; Glucose 91 mg/dL (74-106); Magnesium 2.1 mg/dL (1.6-2.6); Phosphorus 2.2 mg/dL (2.5-4.9); Potassium 4.3 mmol/L (3.5-5.1); Sodium Level 150 mmol/L (136-145)
[2017-11-18] MEDS: Ipratropium/Albuterol Sulfate 3 ML AMPUL.NEB INHALATION ×6 (05:14→23:06)
[2017-11-18] MEDS: 0.9% NaCl PICC Flush IV ×2 (05:46→06:53)
--- NOTE | 2017-11-18 06:15 | RAD_ITS ---
STUDY: X-RAY CHEST REASON FOR EXAM: Female, 67 years old. Shortness of breath TECHNIQUE: Single AP portable view of the chest. COMPARISON: November 17, 2017 FINDINGS: Endotracheal tube, 3 cm above the kris. Feeding tube extends to the stomach in the abdomen. There are monitoring and support devices. PICC on the left extending to the lower superior vena cava. Bilateral lower lung airspace opacities. Small pleural effusions. There is mild cardiac enlargement. Normal mediastinum and angi. Normal visualized pulmonary arteries. Normal visualized aortic arch and descending thoracic aorta. There are diffuse degenerative changes of the visualized thoracic spine. Normal visualized ribs, clavicles, and shoulders. There is no demonstrated abnormality of the visualized soft tissue structures of the upper abdomen. RAD/Chest 1 View (Portable) IMPRESSION: Bilateral infiltrates or edema and pleural effusions with worsening. Electronically Signed: Clarke Fragoso MD at 8:24 EDT , Service support ,
--- NOTE | 2017-11-18 06:34 | PCM.PN.INT ---
Subjective: The patient was seen and examined at the bedside this morning. Events from the last 24 hours have been reviewed. The patient is currently afebrile, hemodynamically stable and maintaining appropriate oxygen saturations on ACVC+ with an FiO2 requirement of 60%. Patient did have increasing FiO2 and PEEP requirements overnight. She also had a notable increase in the amount of her secretions. In addition to the aforementioned, the patient is experiencing a great deal of bigeminy. Although the patient is yet to spike a fever and still does not currently have a leukocytosis, given her increasing FiO2 and PEEP requirements in addition to her increasing sputum production, she was started empirically on antibiotics this morning. Her acid-base disturbance has normalized and the patient does wake up and follow simple commands. The patient also had a PICC line placed yesterday due to inadequate peripheral IV access. Objective: The patient's most recent lab work, culture data and imaging studies have all been personally reviewed. Surface echocardiogram revealed mild concentric LVH with mild global left systolic dysfunction and an ejection fraction of 45%. Right ventricular systolic pressure was estimated to be 34 mmHg. Blood, urine and sputum cultures are currently pending. Strep and urine Legionella antigens are pending. Head CT dated November 17 revealed chronic involutional changes without intracranial hemorrhage or evidence of acute infarction. General: - - Intubated, sedated and mechanically ventilated. Currently tolerating ACVC+ without issue. HEENT: Atraumatic, PERRLA, Normocephalic Oral: No Gingival or Mucosal Lesions/ Ulcerations, - - Endotracheal and OG tubes in place Neck: Supple, No Nodes, Trachea Midline, - - Large neck circumference with redundant soft tissue. Lungs: No rhonchi, No wheeze, No rales, Diminished, - - Distant breath sounds secondary to body habitus. Cardiovascular: Normal S1, Normal S2, No murmurs, Irregular Rate Abdomen: Bowel Sounds Present, Soft, Non Tender, Obese Extremities: No clubbing, No cyanosis, - - 1+ bilateral lower extremity edema Skin: - - No significant change from previous. Musculoskeletal: No Tenderness to Palpation of Joints or Extremities, No Muscle Wasting Lymphatic: No Cervical, Supraclavicular, or Inguinal Adenopathy Neurological: - - No focal neurological deficits. Moves all extremities spontaneously. RASS -2 currently Vital Signs Temp Pulse Resp BP Pulse Ox 98.0 F 60 16 134/61 H 92 08//18 06:00 11/18/17 06:00 11/18/17 06:00 11/18/17 06:00 11/18/17 06:00 Oxygen Flow Rate (L/min) 40 Oxygen Delivery Method Mechanical Ventilator Weight: 354 lb 4.525 oz Body Mass Index (BMI) 58.2 Intake and Output for Last 24 Hours 11/16/17 11/17/17 11/18/17 23:59 23:59 23:59 Intake Total 1530 / 1530 1568 / 1568 123 / 123 Output Total 1900 / 1900 1350 / 1350 400 / 400 Balance -370 / -370 218 / 218 -277 / -277 Labs (Last 48 Hours) 11/16/17 11/16/17 11/16/17 05:30 06:55 07:20 WBC 9.5 RBC 5.11 Hgb 15.3 H Hct 50.9 H MCV 99.6 H MCH 29.9 MCHC 30.1 L RDW 16.2 H RDW Differential 60.2 H Plt Count 206 MPV 12.1 H Immature Gran % (Auto) 0.300 Neut % (Auto) 79.3 H Lymph % (Auto) 11.6 L [place] % (Auto) 8.0 Eos % (Auto) 0.7 Baso % (Auto) 0.1 Absolute Neuts (auto) 7.6 Absolute Lymphs (auto) 1.11 Total Counted Not Reportable Specimen Type Sample Site pH Bicarbonate Actual POC Total CO2 Base Excess O2 Saturation O2 % ABG pCO2 ABG pO2 Andrew Test VBG pH VBG pO2 VBG O2 Sat (Calc) VBG O2 Content VBG Base Excess POC Mix VBG pCO2 Pt Tmp Respiration Rate O2 Delivery Device Liter Flow Minute Volume Tidal Volume POC PEEP EPAP IPAP Blood Gas Notified Whom Blood Gas Notified Time Sodium Cancelled 141 Potassium Cancelled 5.8 H Chloride Cancelled 111 H Carbon Dioxide Cancelled 25.0 Anion Gap Cancelled 5 BUN Cancelled 39 H Creatinine Cancelled 1.89 H Estim Creat Clear Calc Cancelled 25.28 Est GFR (MDRD) Af Amer Cancelled 34 L Est GFR (MDRD) Non-Af Cancelled 28 L BUN/Creatinine Ratio Cancelled 20.6 H Glucose Cancelled 133 H Calcium Cancelled 8.8 Phosphorus Magnesium Total Bilirubin AST ALT Alkaline Phosphatase Troponin I B-Natriuretic Peptide Total Protein Albumin Globulin Albumin/Globulin Ratio TSH MRSA (PCR) 11/16/17 11/17/17 11/17/17 14:10 06:45 10:13 WBC RBC Hgb Hct MCV MCH MCHC RDW RDW Differential Plt Count MPV Immature Gran % (Auto) Neut % (Auto) Lymph % (Auto) [place] % (Auto) Eos % (Auto) Baso % (Auto) Absolute Neuts (auto) Absolute Lymphs (auto) Total Counted Specimen Type ART Sample Site L Radial pH 7.02 L* Bicarbonate Actual 29.3 H POC Total CO2 33 Base Excess -2 O2 Saturation 91 L O2 % ABG pCO2 114.7 H* ABG pO2 93 Andrew Test POS VBG pH VBG pO2 VBG O2 Sat (Calc) VBG O2 Content VBG Base Excess POC Mix VBG pCO2 Pt Tmp Respiration Rate O2 Delivery Device Nasal Can Liter Flow 4.0 Minute Volume Tidal Volume POC PEEP EPAP IPAP Blood Gas Notified Whom HOSP Blood Gas Notified Time 1012 Sodium 146 H 147 H Potassium 5.0 4.8 Chloride 111 H 111 H Carbon Dioxide 28.0 31.0 Anion Gap 7 5 BUN 41 H 40 H Creatinine 1.76 H 1.55 H Estim Creat Clear Calc 27.15 30.82 Est GFR (MDRD) Af Amer 37 L 43 L Est GFR (MDRD) Non-Af 30 L 35 L BUN/Creatinine Ratio 23.3 H 25.8 H Glucose 105 115 H Calcium 8.8 8.9 Phosphorus Magnesium Total Bilirubin AST ALT Alkaline Phosphatase Troponin I B-Natriuretic Peptide Total Protein Albumin Globulin Albumin/Globulin Ratio TSH MRSA (PCR) 11/17/17 11/17/17 11/17/17 12:45 18:15 18:15 WBC 7.4 RBC 4.81 Hgb 14.3 Hct 48.2 H MCV 100.2 H MCH 29.7 MCHC 29.7 L RDW 15.3 H RDW Differential 56.2 H Plt Count 131 L MPV 9.9 Immature Gran % (Auto) 0.400 Neut % (Auto) 73.7 H Lymph % (Auto) 13.7 L [place] % (Auto) 11.3 H Eos % (Auto) 0.8 Baso % (Auto) 0.1 Absolute Neuts (auto) 5.4 Absolute Lymphs (auto) 1.01 Total Counted Not Reportable Specimen Type ART Sample Site R Radial pH 7.10 L* Bicarbonate Actual 29.7 H POC Total CO2 33 Base Excess 0 O2 Saturation 85 L O2 % 40 ABG pCO2 96.8 H* ABG pO2 71 L Andrew Test POS VBG pH VBG pO2 VBG O2 Sat (Calc) VBG O2 Content VBG Base Excess POC Mix VBG pCO2 Pt Tmp Respiration Rate 19 O2 Delivery Device Bi / C PAP Liter Flow Minute Volume Tidal Volume POC PEEP EPAP 10 IPAP 16 Blood Gas Notified Whom HOSP Blood Gas Notified Time 1240 Sodium 147 H Potassium 5.0 Chloride 112 H Carbon Dioxide 31.0 Anion Gap 4 L BUN 38 H Creatinine 1.47 H Estim Creat Clear Calc 32.50 Est GFR (MDRD) Af Amer 45 L Est GFR (MDRD) Non-Af 37 L BUN/Creatinine Ratio 25.9 H Glucose 95 Calcium 8.6 Phosphorus Magnesium Total Bilirubin 0.50 AST 22 ALT 45 Alkaline Phosphatase 111 Troponin I < 0.015 B-Natriuretic Peptide Total Protein 6.1 L Albumin 2.7 L Globulin 3.4 Albumin/Globulin Ratio 0.8 L TSH 0.96 MRSA (PCR) 11/17/17 11/17/17 11/18/17 21:41 22:14 04:40 WBC 7.5 RBC 4.87 Hgb 14.5 Hct 47.2 H MCV 96.9 MCH 29.8 MCHC 30.7 L RDW 15.3 H RDW Differential 54.0 H Plt Count 132 L MPV 10.1 Immature Gran % (Auto) 0.300 Neut % (Auto) 75.4 H Lymph % (Auto) 12.0 L [place] % (Auto) 11.0 H Eos % (Auto) 1.2 Baso % (Auto) 0.1 Absolute Neuts (auto) 5.6 Absolute Lymphs (auto) 0.90 Total Counted Not Reportable Specimen Type SARA Sample Site L Brachial pH Bicarbonate Actual POC Total CO2 Base Excess O2 Saturation O2 % 40 ABG pCO2 ABG pO2 Andrew Test VBG pH 7.34 VBG pO2 35 VBG O2 Sat (Calc) 62 VBG O2 Content 29 VBG Base Excess 2 POC Mix VBG pCO2 Pt Tmp 51.1 H Respiration Rate 16 O2 Delivery Device Vent Liter Flow Minute Volume 6.00 Tidal Volume 400 POC PEEP 5 EPAP IPAP Blood Gas Notified Whom ICU Blood Gas Notified Time 2210 Sodium Potassium Chloride Carbon Dioxide Anion Gap BUN Creatinine Estim Creat Clear Calc Est GFR (MDRD) Af Amer Est GFR (MDRD) Non-Af BUN/Creatinine Ratio Glucose Calcium Phosphorus Magnesium Total Bilirubin AST ALT Alkaline Phosphatase Troponin I B-Natriuretic Peptide Total Protein Albumin Globulin Albumin/Globulin Ratio TSH MRSA (PCR) Negative 11/18/17 11/18/17 04:40 04:40 WBC RBC Hgb Hct MCV MCH MCHC RDW RDW Differential Plt Count MPV Immature Gran % (Auto) Neut % (Auto) Lymph % (Auto) [place] % (Auto) Eos % (Auto) Baso % (Auto) Absolute Neuts (auto) Absolute Lymphs (auto) Total Counted Specimen Type Sample Site pH Bicarbonate Actual POC Total CO2 Base Excess O2 Saturation O2 % ABG pCO2 ABG pO2 Andrew Test VBG pH VBG pO2 VBG O2 Sat (Calc) VBG O2 Content VBG Base Excess POC Mix VBG pCO2 Pt Tmp Respiration Rate O2 Delivery Device Liter Flow Minute Volume Tidal Volume POC PEEP EPAP IPAP Blood Gas Notified Whom Blood Gas Notified Time Sodium 150 H Potassium 4.3 Chloride 114 H Carbon Dioxide 29.0 Anion Gap 7 BUN 36 H Creatinine 1.16 H Estim Creat Clear Calc 41.19 Est GFR (MDRD) Af Amer 59 L Est GFR (MDRD) Non-Af 49 L BUN/Creatinine Ratio 31.0 H Glucose 91 Calcium 8.6 Phosphorus 2.2 L Magnesium 2.1 Total Bilirubin AST ALT Alkaline Phosphatase Troponin I B-Natriuretic Peptide Pending Total Protein Albumin Globulin Albumin/Globulin Ratio TSH MRSA (PCR) Clinical Impression(s) from Imaging Studies Chest X-Ray 11/14/17 09:52 IMPRESSION: Cardiomegaly. Mild increased markings at the lung bases suggestive of linear atelectasis and/or scarring. Electronically Signed: Lewis Aguirre MD at 10:22 EDT Tel [phone], Service support , Chest CTA 11/15/17 14:45 IMPRESSION: Bilateral pleural effusions with bibasilar infiltration and/or atelectasis. Focal infiltrate in the posterior aspect of the exam of the left upper lobe as well as increased markings in the right middle lobe. Electronically Signed: Lewis Aguirre MD at 15:39 EDT Tel [phone], Service support , Chest X-Ray 11/17/17 08:16 IMPRESSION: Cardiomegaly. Bibasilar patchy infiltrates. Follow-up is recommended. Electronically Signed: Lewis Aguirre MD at 10:44 EDT Tel [phone], Service support , Chest X-Ray 11/17/17 13:55 IMPRESSION: Endotracheal tube and feeding tube placement. Bilateral infiltrates or edema and small effusions. Electronically Signed: Clarke Fragoso MD at 14:46 EDT , Service support , Brain CT 11/17/17 16:30 IMPRESSION: 1. Chronic involutional changes of the brain. 2. Nasogastric and endotracheal tubes are noted. 3. There is no intracranial hemorrhage or evidence of acute infarct. The visualized paranasal sinuses appear within normal limits. Electronically Signed: Kevin Newsome MD at 16:52 EDT , Service support , Medical Necessity - Tobacco Use Smoking Status: Former smoker - quit 1990 smoked x 10 years Tobacco Use: Cigarettes Assessment/Plan All Active Problems Atrial flutter (Acute) Chest pain (Acute) Shortness of breath (Acute) RECOMMENDATIONS: 1. Obtain arterial blood gas this morning. 2. Obtain repeat plain film chest x-ray. 3. Given bigeminy noted and improvement hemodynamics from yesterday, recommend discontinuation of Precedex and initiation of low-dose propofol. 4. Repeat surface echocardiogram is currently pending. 5. Start empiric vancomycin and Zosyn for potential HCAP. 6. Check BNP 7. Start tube feeds today along with free water flushes. 8. The patient may eventually require initiation of gentle diuresis with IV Lasix. 9. Continue Xarelto. Continue Protonix for GI prophylaxis. 10. Obtain EKG. IMPRESSIONS: 1. Acute hypoxemic and hypercarbic respiratory failure Unclear etiology for the patient's acute decompensation from a respiratory perspective. She did not have significant metabolic derangements, nor did she receive any sedating medications. In addition, the patient does not appear to have chronic CO2 retention. The patient did require transfer and emergent intubation after she failed to respond to noninvasive positive pressure ventilation in the setting of hypercarbic encephalopathy. Follow-up chest imaging has demonstrated findings of bilateral infiltrates, which could be infectious in nature versus related to volume. Although not initially started due to a lack of fever or leukocytosis, antibiotics were initiated this morning due to increasing FiO2 and PEEP requirements, along with increasing sputum production. Her underlying acid-base disturbance has corrected. We will plan to obtain repeat plain film chest x-ray this morning. Sputum cultures currently pending. Plan to wean FiO2 and PEEP to maintain an oxygen saturation at or above 90%. Given issues with bigeminy, the patient's Precedex will be discontinued and she will be started on low-dose propofol, in conjunction with her currently infusing fentanyl. Tube feeds can be initiated today along with free water flushes. 2. Encephalopathy As noted above, etiology for the patient's encephalopathy was likely secondary to hypercarbia. However, the exact reason for her acute hypercapnia remains a bit unclear. A CT head was obtained which revealed no acute intracranial process that would explain her encephalopathy and/or predisposition to retain CO2. She would certainly be at high risk for development of CO2 retention from obesity hypoventilation. Alternatively, she may have an evolving pulmonary infectious process versus pulmonary edema that may have contributed to her development of CO2 narcosis. These issues are currently being addressed. 3. Atrial flutter with rapid ventricular response/underlying cardiomyopathy Continue current medical management per cardiology recommendations. Repeat echocardiogram is currently pending. 4. Suspected sleep disordered breathing The patient undoubtedly needs to be followed up as an outpatient to undergo a formal diagnostic polysomnogram. However, in the interim, when the patient is appropriate for a trial of extubation, will initiate empiric BiPAP therapy on a nocturnal basis. 5. Acute kidney injury Potentially secondary to contrast administration multiple days ago. Her renal function has been slowly improving with time. Urine output is currently appropriate. We will continue to monitor. No indication for renal replacement therapy at this time. 6. Super morbid obesity/GERD/hypertension Complicates care, management, recovery and prognosis. Hold antihypertensives at this time. Transition to Protonix IV. Obtain nutrition consultation for tube feed recommendations. TIME: 45 minutes of critical care time, independent of procedures, was spent addressing the patient's acute hypoxemic and hypercarbic respiratory failure, encephalopathy, atrial flutter with rapid ventricular response, suspected sleep disordered breathing, acute kidney injury, review of all data and collaboration with the care team. ([id number]) Code Visit 9xxxx: [id number] Critical care first hour
[2017-11-18 06:36] LABS: Allen Test POS; Base Excess 0 mmol/L (-2 to +2); Bicarbonate 25.7 mmol/L (22-26); Blood Gas Specimen Type ART; FI02 60; Mode A-C; O2 Delivery Device Vent; PEEP 12; PO2 60 mmHG (75-100); RR 16; SITE R Radial; SO2 89 % (95-99); Time Given 628; Total Carbon Dioxide 27 mmol/L; Vt 400; pCO2 46.8 mmHg (35-45); pH 7.35 (7.35-7.45)
[2017-11-18] MEDS: Propofol 10MG/Ml 1,000 MG/100 ML Bottle 4.821 MG CONT INF ×2 (06:52→17:07)
--- NOTE | 2017-11-18 06:57 | PCM.RX.CS ---
Consult Pharmacy has been consulted to manage selected antiobiotic: Vancomycin Type of Consult: New start Labs: Sodium 150 mmol/L (136-145) H 11/18/17 04:40 Potassium 4.3 mmol/L (3.5-5.1) 11/18/17 04:40 Chloride 114 mmol/L (98-107) H 11/18/17 04:40 Carbon Dioxide 29.0 mmol/L (21.0-32.0) 11/18/17 04:40 Anion Gap 7 (5-15) 11/18/17 04:40 BUN 36 mg/dL (7-18) H 11/18/17 04:40 Creatinine 1.16 mg/dL (0.55-1.02) H 11/18/17 04:40 Est GFR (MDRD) Af Amer 59 mL/min (>60) L 11/18/17 04:40 Est GFR (MDRD) Non-Af 49 mL/min (>60) L 11/18/17 04:40 BUN/Creatinine Ratio 31.0 RATIO (10-20) H 11/18/17 04:40 Glucose 91 mg/dL (74-106) 11/18/17 04:40 Estimated Creatinine Clearance: 41.19 Goal Trough: 15-20 mcg/mL Pharmacy Plan for Drug Dosing: Pharmacy Service will continue to monitor and adjust dosing as required. Follow-Up Labs: Trough Vancomycin Labs to be done on [date and time ordered]: 11/19 @1900
[2017-11-18 07:26] LABS: CPK Total, Creatine Kinase 56 U/L (26-192); Triglycerides 115 mg/dL
--- NOTE | 2017-11-18 07:41 | PCM.PN.HOSP ---
Patient Problems: Active and Suspected Problems Atrial flutter (Acute) Chest pain (Acute) Shortness of breath (Acute) Subjective: Still with bigeminy. Still requiring ventilator support. Increased sputum production. Vitals/I&O's: Vital Signs Temp Pulse Resp BP Pulse Ox 36.7 C 60 16 134/61 H 92 11/18/17 06:00 11/18/17 06:50 11/18/17 06:50 11/18/17 06:00 11/18/17 06:50 Oxygen Flow Rate (L/min) 40 Oxygen Delivery Method Mechanical Ventilator Weight: 160.7 kg Body Mass Index (BMI) 58.2 Intake and Output for Last 24 Hours 11/16/17 11/17/17 11/18/17 23:59 23:59 23:59 Intake Total 1530 / 1530 1568 / 1568 123 / 123 Output Total 1900 / 1900 1350 / 1350 400 / 400 Balance -370 / -370 218 / 218 -277 / -277 General: - - On ventilator. Sedated. Afebrile. HEENT: Atraumatic, Normocephalic, - - no icterus Oral: Moist Mucosa, No Gingival or Mucosal Lesions/ Ulcerations, - - ETT, OG in place Neck: No Nodes, Thyroid Normal Size and Texture Lungs: Diminished, - - coarse breath sounds bilaterally. Cardiovascular: Normal S1, Normal S2, - - irregular rhythm Abdomen: Bowel Sounds Present, Soft, Non Tender, Non-Distended, Obese Extremities: No Calf Tenderness, Edema - +1 Skin: No rashes, No breakdown Musculoskeletal: No Tenderness to Palpation of Joints or Extremities, No Muscle Wasting Neurological: Deep Tendon Reflexes 2+/4 and Symmetrical, - - no clonus Psych/Mental Status: - - intubated and sedated. Microbiology Past 72 Hours 11/18/17 06:50 Urine Catheter - Catheter Legionella Antigen - Final 11/18/17 06:50 Urine Catheter - Catheter Streptococcus pneumoniae Antigen (M - Final Laboratory Results 11/17/17 10:13: Specimen Type ART, Sample Site L Radial, pH 7.02 L*, Bicarbonate Actual 29.3 H, POC Total CO2 33, Base Excess -2, O2 Saturation 91 L, ABG pCO2 114.7 H*, ABG pO2 93, Andrew Test POS, O2 Delivery Device Nasal Can, Liter Flow 4.0, Blood Gas Notified Whom HOSP MD, Blood Gas Notified Time 1012 11/17/17 12:45: Specimen Type ART, Sample Site R Radial, pH 7.10 L*, Bicarbonate Actual 29.7 H, POC Total CO2 33, Base Excess 0, O2 Saturation 85 L, O2 % 40, ABG pCO2 96.8 H*, ABG pO2 71 L, Andrew Test POS, Respiration Rate 19, O2 Delivery Device Bi / C PAP, EPAP 10, IPAP 16, Blood Gas Notified Whom [facility] , Blood Gas Notified Time 1240 11/17/17 18:15: WBC 7.4, RBC 4.81, Hgb 14.3, Hct 48.2 H, MCV 100.2 H, MCH 29.7, MCHC 29.7 L, RDW 15.3 H, RDW Differential 56.2 H, Plt Count 131 L, MPV 9.9, Immature Gran % (Auto) 0.400, Neut % (Auto) 73.7 H, Lymph % (Auto) 13.7 L, [place] % (Auto) 11.3 H, Eos % (Auto) 0.8, Baso % (Auto) 0.1, Absolute Neuts (auto) 5.4, Absolute Lymphs (auto) 1.01, Total Counted Not Reportable 11/17/17 18:15: Sodium 147 H, Potassium 5.0, Chloride 112 H, Carbon Dioxide 31.0, Anion Gap 4 L, BUN 38 H, Creatinine 1.47 H, Estim Creat Clear Calc 32.50, Est GFR (MDRD) Af Amer 45 L, Est GFR (MDRD) Non-Af 37 L, BUN/Creatinine Ratio 25.9 H, Glucose 95, Calcium 8.6, Total Bilirubin 0.50, AST 22, ALT 45, Alkaline Phosphatase 111, Troponin I < 0.015, Total Protein 6.1 L, Albumin 2.7 L, Globulin 3.4, Albumin/Globulin Ratio 0.8 L, TSH 0.96 11/17/17 21:41: MRSA (PCR) Negative 11/17/17 22:14: Specimen Type SARA, Sample Site L Brachial, O2 % 40, VBG pH 7.34, VBG pO2 35, VBG O2 Sat (Calc) 62, VBG O2 Content 29, VBG Base Excess 2, POC Mix VBG pCO2 Pt Tmp 51.1 H, Respiration Rate 16, O2 Delivery Device Vent, Minute Volume 6.00, Tidal Volume 400, POC PEEP 5, Blood Gas Notified Whom ICU MD, Blood Gas Notified Time 22111/18/17 04:40: WBC 7.5, RBC 4.87, Hgb 14.5, Hct 47.2 H, MCV 96.9, MCH 29.8, MCHC 30.7 L, RDW 15.3 H, RDW Differential 54.0 H, Plt Count 132 L, MPV 10.1, Immature Gran % (Auto) 0.300, Neut % (Auto) 75.4 H, Lymph % (Auto) 12.0 L, [place] % (Auto) 11.0 H, Eos % (Auto) 1.2, Baso % (Auto) 0.1, Absolute Neuts (auto) 5.6, Absolute Lymphs (auto) 0.90, Total Counted Not Reportable 11/18/17 04:40: Sodium 150 H, Potassium 4.3, Chloride 114 H, Carbon Dioxide 29.0, Anion Gap 7, BUN 36 H, Creatinine 1.16 H, Estim Creat Clear Calc 41.19, Est GFR (MDRD) Af Amer 59 L, Est GFR (MDRD) Non-Af 49 L, BUN/Creatinine Ratio 31.0 H, Glucose 91, Calcium 8.6, Phosphorus 2.2 L, Magnesium 2.1 11/18/17 04:40: B-Natriuretic Peptide Pending 11/18/17 04:40: Total Creatine Kinase 56, Triglycerides 115 11/18/17 06:29: Specimen Type ART, Sample Site R Radial, pH 7.35, Bicarbonate Actual 25.7, POC Total CO2 27, Base Excess 0, O2 Saturation 89 L, O2 % 60, ABG pCO2 46.8 H, ABG pO2 60 L, Andrew Test POS, Respiration Rate 16, O2 Delivery Device Vent, Minute Volume 6.00, Vent Mode A-C, Tidal Volume 400, POC PEEP 12, Blood Gas Notified Whom ICU MD, Blood Gas Notified Time 628 Current Medications Acetaminophen (Tylenol) 650 mg PO Q6H PRN PRN PRN Reason: Mild Pain (1-3)/Temp > 100.7 F Last Admin: 11/17/17 00:23 Dose: 650 mg Albuterol Sulfate (Ventolin Aerosols) 2.5 mg INHALATION Q2H PRN PRN PRN Reason: SOB &/OR WHEEZING Albuterol/Ipratropium (Duoneb) 3 ml INHALATION Q4H.RT LAQUITA Last Admin: 11/18/17 05:14 Dose: 3 ml Carvedilol (Coreg) 3.125 mg GT BID LAQUITA Chlorhexidine Gluconate () 15 ml PO BID [facility] Last Admin: 11/17/17 22:12 Dose: 15 ml Chlorhexidine Gluconate () 1 each TOPICAL DAILY LAQUITA Last Admin: 11/18/17 01:28 Dose: 1 each Heparin Sodium (Beef Lung) (Heparin 500 Unit/5 Ml (100/Ml)) 500 unit IV UD PRN PRN Reason: HEPARIN FLUSH Sodium Chloride () 1,000 mls @ 15 mls/hr IV .Q48H LAQUITA PRN Reason: KVO Last Admin: 11/16/17 10:17 Dose: Not Given Fentanyl () 100 mls @ 2.5 mls/hr IV .Q40H LAQUITA PRN Reason: Protocol Last Admin: 11/18/17 01:23 Dose: 2.5 mls/hr Piperacillin Sod/Tazobactam Sod (Zosyn) 3.375 gm in 50 mls @ 12.5 mls/hr IV Q8 [facility] Vancomycin IV Pharmacy to Dose (1 ea/ Sodium Chloride) 500 mls @ 250 mls/hr IV X1 PRN; Protocol PRN Reason: Rx to Dose Pantoprazole Sodium 40 mg/ (Sodium Chloride) 110 mls @ 330 mls/hr IV Q24 [facility] Propofol (Diprivan) 1,000 mg in 100 mls @ 4.821 mls/hr CONT INF .Q12H LAQUITA; 5 MCG/KG/MIN PRN Reason: Protocol Last Admin: 11/18/17 06:52 Dose: 4.821 mls/hr Vancomycin HCl 2,000 mg/ (Sodium Chloride) 540 mls @ 250 mls/hr IV X1 ONE Stop: 11/18/17 09:09 Last Admin: 11/18/17 07:02 Dose: 250 mls/hr Vancomycin HCl (Vancomycin) 1,000 mg in 200 mls @ 200 mls/hr IV Q12H [facility] Ondansetron HCl (Zofran) 4 mg IV Q6H PRN PRN PRN Reason: nausea, emesis Rivaroxaban (Xarelto) 20 mg GT DAILY@1800 LAQUITA Sodium Chloride () 5 - 30 ml IV UD PRN PRN Reason: SALINE FLUSH Last Admin: 11/18/17 01:28 Dose: 10 ml Sodium Chloride () 10 - 20 ml IV UD PRN PRN Reason: PICC FLUSH Last Admin: 11/18/17 06:53 Dose: 20 ml Medical Necessity - Tobacco Use Smoking Status: Former smoker - quit 1989 smoked x 10 years Tobacco Use: Cigarettes Assessment/Plan All Active Problems Atrial flutter (Acute) Chest pain (Acute) Shortness of breath (Acute) 1. Acute hypercapnic respiratory failure Secondary to pleural effusions plus possible developing pneumonia plus possible heart failure with possible obstructive sleep apnea and obesity hypoventilation On empiric antibiotics with Zosyn and vancomycin Pulmonary toilet Pulmonary management appreciated outpt pulm follow up 2. Suspected gram-negative pneumonia Concern is for healthcare acquired pneumonia Continue with empiric broad-spectrum antibiotics Urinary antigens for strep coccus and Legionella are negative 3. Heart failure with reduced ejection fraction Ejection fraction of 45% on Coreg start low-dose ACEi start lasix 4. Ventricular bigeminy K + Mg OK monitor await further cardiac recs 5. EKATERINA resolved monitor with the addition of lasix and ACEi 6. Aflutter w RVR s/p DCCV on hep gtt for now, likely transition to NOAC after extubation and safe swallow ensured 8. Metabolic encephalopathy d/t hypercapnia 9. DVT proph: anticoagulated 10. GI proph: PPI. Code Visit Inpatient E&M: 96239 Subs Hosp L3
--- NOTE | 2017-11-18 07:45 | PN_ITS ---
Patient Problems: Active and Suspected Problems Atrial flutter (Acute) Chest pain (Acute) Shortness of breath (Acute) Subjective: Still with bigeminy. Still requiring ventilator support. Increased sputum production. Vitals/I&O's: Vital Signs Temp Pulse Resp BP Pulse Ox 36.7 C 60 16 134/61 H 92 11/18/17 06:00 11/18/17 06:50 11/18/17 06:50 11/18/17 06:00 11/18/17 06:50 Oxygen Flow Rate (L/min) 40 Oxygen Delivery Method Mechanical Ventilator Weight: 160.7 kg Body Mass Index (BMI) 58.2 Intake and Output for Last 24 Hours 11/16/17 11/17/17 11/18/17 23:59 23:59 23:59 Intake Total 1530 / 1530 1568 / 1568 123 / 123 Output Total 1900 / 1900 1350 / 1350 400 / 400 Balance -370 / -370 218 / 218 -277 / -277 General: - - On ventilator. Sedated. Afebrile. HEENT: Atraumatic, Normocephalic, - - no icterus Oral: Moist Mucosa, No Gingival or Mucosal Lesions/ Ulcerations, - - ETT, OG in place Neck: No Nodes, Thyroid Normal Size and Texture Lungs: Diminished, - - coarse breath sounds bilaterally. Cardiovascular: Normal S1, Normal S2, - - irregular rhythm Abdomen: Bowel Sounds Present, Soft, Non Tender, Non-Distended, Obese Extremities: No Calf Tenderness, Edema - +1 Skin: No rashes, No breakdown Musculoskeletal: No Tenderness to Palpation of Joints or Extremities, No Muscle Wasting Neurological: Deep Tendon Reflexes 2+/4 and Symmetrical, - - no clonus Psych/Mental Status: - - intubated and sedated. Microbiology Past 72 Hours 11/18/17 06:50 Urine Catheter - Catheter Legionella Antigen - Final 11/18/17 06:50 Urine Catheter - Catheter Streptococcus pneumoniae Antigen ( M - Final Laboratory Results 11/17/17 10:13: Specimen Type ART, Sample Site L Radial, pH 7.02 L*, Bicarbonate Actual 29.3 H, POC Total CO2 33, Base Excess -2, O2 Saturation 91 L , ABG pCO2 114.7 H*, ABG pO2 93, Andrew Test POS, O2 Delivery Device Nasal Can, Liter Flow 4.0, Blood Gas Notified Whom HOSP MD, Blood Gas Notified Time 1012 11/17/17 12:45: Specimen Type ART, Sample Site R Radial, pH 7.10 L*, Bicarbonate Actual 29.7 H, POC Total CO2 33, Base Excess 0, O2 Saturation 85 L, O2 % 40, ABG pCO2 96.8 H*, ABG pO2 71 L, Andrew Test POS, Respiration Rate 19, O2 Delivery Device Bi / C PAP, EPAP 10, IPAP 16, Blood Gas Notified Whom [facility] , Blood Gas Notified Time 1240 11/17/17 18:15: WBC 7.4, RBC 4.81, Hgb 14.3, Hct 48.2 H, MCV 100.2 H, MCH 29.7, MCHC 29.7 L, RDW 15.3 H, RDW Differential 56.2 H, Plt Count 131 L, MPV 9.9, Immature Gran % (Auto) 0.400, Neut % (Auto) 73.7 H, Lymph % (Auto) 13.7 L, Jack % (Auto) 11.3 H, Eos % (Auto) 0.8, Baso % (Auto) 0.1, Absolute Neuts (auto) 5.4 , Absolute Lymphs (auto) 1.01, Total Counted Not Reportable 11/17/17 18:15: Sodium 147 H, Potassium 5.0, Chloride 112 H, Carbon Dioxide 31.0 , Anion Gap 4 L, BUN 38 H, Creatinine 1.47 H, Estim Creat Clear Calc 32.50, Est GFR (MDRD) Af Amer 45 L, Est GFR (MDRD) Non-Af 37 L, BUN/Creatinine Ratio 25.9 H , Glucose 95, Calcium 8.6, Total Bilirubin 0.50, AST 22, ALT 45, Alkaline Phosphatase 111, Troponin I < 0.015, Total Protein 6.1 L, Albumin 2.7 L, Globulin 3.4, Albumin/Globulin Ratio 0.8 L, TSH 0.96 11/17/17 21:41: MRSA (PCR) Negative 11/17/17 22:14: Specimen Type SARA, Sample Site L Brachial, O2 % 40, VBG pH 7.34 , VBG pO2 35, VBG O2 Sat (Calc) 62, VBG O2 Content 29, VBG Base Excess 2, POC Mix VBG pCO2 Pt Tmp 51.1 H, Respiration Rate 16, O2 Delivery Device Vent, Minute Volume 6.00, Tidal Volume 400, POC PEEP 5, Blood Gas Notified Whom ICU MD , Blood Gas Notified Time 22111/18/17 04:40: WBC 7.5, RBC 4.87, Hgb 14.5, Hct 47.2 H, MCV 96.9, MCH 29.8, MCHC 30.7 L, RDW 15.3 H, RDW Differential 54.0 H, Plt Count 132 L, MPV 10.1, Immature Gran % (Auto) 0.300, Neut % (Auto) 75.4 H, Lymph % (Auto) 12.0 L, Jack % (Auto) 11.0 H, Eos % (Auto) 1.2, Baso % (Auto) 0.1, Absolute Neuts (auto) 5.6 , Absolute Lymphs (auto) 0.90, Total Counted Not Reportable 11/18/17 04:40: Sodium 150 H, Potassium 4.3, Chloride 114 H, Carbon Dioxide 29.0 , Anion Gap 7, BUN 36 H, Creatinine 1.16 H, Estim Creat Clear Calc 41.19, Est GFR (MDRD) Af Amer 59 L, Est GFR (MDRD) Non-Af 49 L, BUN/Creatinine Ratio 31.0 H , Glucose 91, Calcium 8.6, Phosphorus 2.2 L, Magnesium 2.1 11/18/17 04:40: B-Natriuretic Peptide Pending 11/18/17 04:40: Total Creatine Kinase 56, Triglycerides 115 11/18/17 06:29: Specimen Type ART, Sample Site R Radial, pH 7.35, Bicarbonate Actual 25.7, POC Total CO2 27, Base Excess 0, O2 Saturation 89 L, O2 % 60, ABG pCO2 46.8 H, ABG pO2 60 L, Andrew Test POS, Respiration Rate 16, O2 Delivery Device Vent, Minute Volume 6.00, Vent Mode A-C, Tidal Volume 400, POC PEEP 12, Blood Gas Notified Whom ICU MD, Blood Gas Notified Time 628 Current Medications Acetaminophen (Tylenol) 650 mg PO Q6H PRN PRN PRN Reason: Mild Pain (1-3)/Temp > 100.7 F Last Admin: 11/17/17 00:23 Dose: 650 mg Albuterol Sulfate (Ventolin Aerosols) 2.5 mg INHALATION Q2H PRN PRN PRN Reason: SOB &/OR WHEEZING Albuterol/Ipratropium (Duoneb) 3 ml INHALATION Q4H.RT LAQUITA Last Admin: 11/18/17 05:14 Dose: 3 ml Carvedilol (Coreg) 3.125 mg GT BID LAQUITA Chlorhexidine Gluconate () 15 ml PO BID [facility] Last Admin: 11/17/17 22:12 Dose: 15 ml Chlorhexidine Gluconate () 1 each TOPICAL DAILY LAQUITA Last Admin: 11/18/17 01:28 Dose: 1 each Heparin Sodium (Beef Lung) (Heparin 500 Unit/5 Ml (100/Ml)) 500 unit IV UD PRN PRN Reason: HEPARIN FLUSH Sodium Chloride () 1,000 mls @ 15 mls/hr IV .Q48H LAQUITA PRN Reason: KVO Last Admin: 11/16/17 10:17 Dose: Not Given Fentanyl () 100 mls @ 2.5 mls/hr IV .Q40H LAQUITA PRN Reason: Protocol Last Admin: 11/18/17 01:23 Dose: 2.5 mls/hr Piperacillin Sod/Tazobactam Sod (Zosyn) 3.375 gm in 50 mls @ 12.5 mls/hr IV Q8 [facility] Vancomycin IV Pharmacy to Dose (1 ea/ Sodium Chloride) 500 mls @ 250 mls/hr IV X1 PRN; Protocol PRN Reason: Rx to Dose Pantoprazole Sodium 40 mg/ (Sodium Chloride) 110 mls @ 330 mls/hr IV Q24 [facility] Propofol (Diprivan) 1,000 mg in 100 mls @ 4.821 mls/hr CONT INF .Q12H LAQUITA; 5 MCG/KG/MIN PRN Reason: Protocol Last Admin: 11/18/17 06:52 Dose: 4.821 mls/hr Vancomycin HCl 2,000 mg/ (Sodium Chloride) 540 mls @ 250 mls/hr IV X1 ONE Stop: 11/18/17 09:09 Last Admin: 11/18/17 07:02 Dose: 250 mls/hr Vancomycin HCl (Vancomycin) 1,000 mg in 200 mls @ 200 mls/hr IV Q12H [facility] Ondansetron HCl (Zofran) 4 mg IV Q6H PRN PRN PRN Reason: nausea, emesis Rivaroxaban (Xarelto) 20 mg GT DAILY@1800 LAQUITA Sodium Chloride () 5 - 30 ml IV UD PRN PRN Reason: SALINE FLUSH Last Admin: 11/18/17 01:28 Dose: 10 ml Sodium Chloride () 10 - 20 ml IV UD PRN PRN Reason: PICC FLUSH Last Admin: 11/18/17 06:53 Dose: 20 ml Medical Necessity - Tobacco Use Smoking Status: Former smoker - quit 1989 smoked x 10 years Tobacco Use: Cigarettes Assessment/Plan All Active Problems Atrial flutter (Acute) Chest pain (Acute) Shortness of breath (Acute) 1. Acute hypercapnic respiratory failure * Secondary to pleural effusions plus possible developing pneumonia plus possible heart failure with possible obstructive sleep apnea and obesity hypoventilation * On empiric antibiotics with Zosyn and vancomycin * Pulmonary toilet * Pulmonary management appreciated * outpt pulm follow up 2. Suspected gram-negative pneumonia * Concern is for healthcare acquired pneumonia * Continue with empiric broad-spectrum antibiotics * Urinary antigens for strep coccus and Legionella are negative 3. Heart failure with reduced ejection fraction * Ejection fraction of 45% * on Coreg * start low-dose ACEi * start lasix 4. Ventricular bigeminy * K + Mg OK * monitor * await further cardiac recs 5. EKATERINA * resolved * monitor with the addition of lasix and ACEi 6. Aflutter w RVR * s/p DCCV * on hep gtt for now, likely transition to NOAC after extubation and safe swallow ensured 8. Metabolic encephalopathy * d/t hypercapnia 9. DVT proph: anticoagulated 10. GI proph: PPI. Code Visit Inpatient E&M: 31471 Subs Hosp L3
[2017-11-18 07:52] LABS: BNP,B-Type NATRIURETIC PEPTIDE 159.1 pg/mL (0-100)
--- NOTE | 2017-11-18 08:08 | EKG12_ITS ---
Test Reason : ARRYTHMIA Blood Pressure : / mmHG Vent. Rate : 055 BPM Atrial Rate : 055 BPM P-R Int : 212 ms QRS Dur : 166 ms QT Int : 480 ms P-R-T Axes : 045 263 -86 degrees QTc Int : 459 ms Sinus bradycardia with 1st degree A-V block with Premature supraventricular complexes Right bundle branch block Abnormal ECG Confirmed by CY WALKER, LEE ([id number]), acquisition editor JERRICA HUITRON ([id number]) on 11/24/2017 2:40:40 PM Referred By: MEGHANN Confirmed By:LEE BENOIT MD
[2017-11-18] MEDS: Senna/Docusate Sodium 1 Tablet 2 TABLET GT ×2 (09:58→21:07)
[2017-11-18] MEDS: Furosemide 40 MG/4 ML Vial IV ×2 (09:58→17:08)
[2017-11-18] MEDS: Polyethylene Glycol 3350 17 GM PACKET GT ×2 (09:59→21:07)
[2017-11-18] MEDS: Chlorhexidine 15 ML PO ×2 (09:59→21:03)
[2017-11-18] MEDS: Lisinopril 5 MG Tablet GT (09:59)
[2017-11-18] MEDS: Vital AF 1.2 Cal Liquid 1,000 ML 60 ML GT (10:00)
--- NOTE | 2017-11-18 10:16 | NURSING ---
rings taken off left hand ring finger and right hand ring finger. placed in denture cup and given to pt's
--- NOTE | 2017-11-18 10:36 | PCM.PN.CARD ---
Subjectve: The patient remains in the ICU sedated and mechanically intubated/ventilated with her family at her side. She has been reported as responding to verbal stimuli and moving all 4 extremities. Objective: Vital Signs Temp Pulse Resp BP Pulse Ox 98.9 F 71 16 176/69 H 93 11/18/17 10:00 11/18/17 10:00 11/18/17 10:00 11/18/17 10:00 11/18/17 10:00 Oxygen Flow Rate (L/min) 40 Oxygen Delivery Method Mechanical Ventilator Weight: 354 lb 4.525 oz Body Mass Index (BMI) 58.2 Intake and Output for Last 24 Hours 11/16/17 11/17/17 11/18/17 23:59 23:59 23:59 Intake Total 1530 / 1530 1568 / 1568 123 / 123 Output Total 1900 / 1900 1350 / 1350 400 / 400 Balance -370 / -370 218 / 218 -277 / -277 General: Obese Lungs: - - Moderate upper airway sounds Cardiovascular: Regular Rhythm, Premature Ectopic Beats, Normal S1 Abdomen: Bowel Sounds Present, Soft Extremities: Trace RLE Edema, Trace LLE Edema 11/17/17 12:45: pH 7.10 L*, Bicarbonate Actual 29.7 H, POC Total CO2 33, Base Excess 0, O2 Saturation 85 L, ABG pCO2 96.8 H*, ABG pO2 71 L, Andrew Test POS 11/17/17 18:15: WBC 7.4, RBC 4.81, Hgb 14.3, Hct 48.2 H, MCV 100.2 H, MCH 29.7, MCHC 29.7 L, RDW 15.3 H, RDW Differential 56.2 H, Plt Count 131 L, MPV 9.9, Immature Gran % (Auto) 0.400, Neut % (Auto) 73.7 H, Lymph % (Auto) 13.7 L, [place] % (Auto) 11.3 H, Eos % (Auto) 0.8, Baso % (Auto) 0.1, Absolute Neuts (auto) 5.4, Total Counted Not Reportable 11/17/17 18:15: Sodium 147 H, Potassium 5.0, Chloride 112 H, Carbon Dioxide 31.0, Anion Gap 4 L, BUN 38 H, Creatinine 1.47 H, Est GFR (MDRD) Af Amer 45 L, Est GFR (MDRD) Non-Af 37 L, BUN/Creatinine Ratio 25.9 H, Glucose 95, Calcium 8.6, Total Bilirubin 0.50, Troponin I < 0.015 11/17/17 22:14: VBG pH 7.34, VBG pO2 35, VBG O2 Sat (Calc) 62, VBG O2 Content 29, VBG Base Excess 2 11/18/17 04:40: WBC 7.5, RBC 4.87, Hgb 14.5, Hct 47.2 H, MCV 96.9, MCH 29.8, MCHC 30.7 L, RDW 15.3 H, RDW Differential 54.0 H, Plt Count 132 L, MPV 10.1, Immature Gran % (Auto) 0.300, Neut % (Auto) 75.4 H, Lymph % (Auto) 12.0 L, [place] % (Auto) 11.0 H, Eos % (Auto) 1.2, Baso % (Auto) 0.1, Absolute Neuts (auto) 5.6, Total Counted Not Reportable 11/18/17 04:40: Sodium 150 H, Potassium 4.3, Chloride 114 H, Carbon Dioxide 29.0, Anion Gap 7, BUN 36 H, Creatinine 1.16 H, Est GFR (MDRD) Af Amer 59 L, Est GFR (MDRD) Non-Af 49 L, BUN/Creatinine Ratio 31.0 H, Glucose 91, Calcium 8.6, Phosphorus 2.2 L, Magnesium 2.1 11/18/17 04:40: B-Natriuretic Peptide 159.1 H 11/18/17 04:40: Triglycerides 115 11/18/17 06:29: pH 7.35, Bicarbonate Actual 25.7, POC Total CO2 27, Base Excess 0, O2 Saturation 89 L, ABG pCO2 46.8 H, ABG pO2 60 L, Andrew Test POS Rhythm: Sinus rhythm; PACs; atrial bigeminy EKG: Sinus rhythm; PACs; right bundle branch block pattern ECHO: Follow-up transthoracic echocardiogram: Pending CXR: Reviewed/report reviewed Medical Necessity - Tobacco Use Smoking Status: Former smoker - quit 1989 smoked x 10 years Tobacco Use: Cigarettes Assessment/Plan 1. Atrial flutter with rapid ventricular response The patient has undergone noninvasive evaluation. She has undergone synchronized biphasic DC cardioversion. She did regain sinus rhythm. She continues with a sinus bradycardia with PACs and intermittent atrial bigeminy. She has not required continued rate limiting therapy. She will continue rate control therapy and anticoagulant therapy at this time. 2. Cardiomyopathy Based upon her noninvasive studies she does have diminished LV systolic function as well as right ventricular enlargement and diminished RV systolic function. There is a concern that her diminished LV systolic function may be related to her underlying atrial dysrhythmia and rapid ventricular response. Hopefully she will remain in sinus rhythm and with medications this will improve. There is concern about her right sided enlargement and dysfunction. There is concern this may be related to underlying pulmonary disease process such as obstructive sleep apnea. Based upon her ongoing pulmonary issues her cardiac anatomy and function is being reassessed with a follow-up echocardiogram. 3. Hypertension Her blood pressures have improved and/or become hypertensive again. She is continuing to be followed. She will continue medical management as deemed appropriate. 4. Acute renal insufficiency Her renal function has improved. Based upon her pulmonary status she is going to receive IV diuretics. Her renal function will be followed. 5. GERD She states she has a history of GERD. She states she cannot tolerate aspirin because it upsets my stomach . She is unclear whether she ever took coated aspirin and whether that would bother her in any negative way. 6. Obesity The patient is morbidly obese. This may be contributing to her diagnosis, symptoms, etc. This can make it challenging with respect to further diagnostic studies, etc. 7. Lethargy/obtundation The etiology is unclear. There are concerns this may have been related to an ongoing pulmonary process. 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 The present time she continues in the ICU with the need for mechanical intubation/ventilation. Comment: The above was discussed with the patient and Dr. King. This note was generated with [employer] dictation software. It may contain incorrect words, spelling, and punctuation that were not noted in checking the note before signing.
--- NOTE | 2017-11-18 10:42 | PN.CARD_ITS ---
Subjectve: The patient remains in the ICU sedated and mechanically intubated/ventilated with her family at her side. She has been reported as responding to verbal stimuli and moving all 4 extremities. Objective: Vital Signs Temp Pulse Resp BP Pulse Ox 98.9 F 71 16 176/69 H 93 11/18/17 10:00 11/18/17 10:00 11/18/17 10:00 11/18/17 10:00 11/18/17 10:00 Oxygen Flow Rate (L/min) 40 Oxygen Delivery Method Mechanical Ventilator Weight: 354 lb 4.525 oz Body Mass Index (BMI) 58.2 Intake and Output for Last 24 Hours 11/16/17 11/17/17 11/18/17 23:59 23:59 23:59 Intake Total 1530 / 1530 1568 / 1568 123 / 123 Output Total 1900 / 1900 1350 / 1350 400 / 400 Balance -370 / -370 218 / 218 -277 / -277 General: Obese Lungs: - - Moderate upper airway sounds Cardiovascular: Regular Rhythm, Premature Ectopic Beats, Normal S1 Abdomen: Bowel Sounds Present, Soft Extremities: Trace RLE Edema, Trace LLE Edema 11/17/17 12:45: pH 7.10 L*, Bicarbonate Actual 29.7 H, POC Total CO2 33, Base Excess 0, O2 Saturation 85 L, ABG pCO2 96.8 H*, ABG pO2 71 L, Andrew Test POS 11/17/17 18:15: WBC 7.4, RBC 4.81, Hgb 14.3, Hct 48.2 H, MCV 100.2 H, MCH 29.7, MCHC 29.7 L, RDW 15.3 H, RDW Differential 56.2 H, Plt Count 131 L, MPV 9.9, Immature Gran % (Auto) 0.400, Neut % (Auto) 73.7 H, Lymph % (Auto) 13.7 L, [place] % (Auto) 11.3 H, Eos % (Auto) 0.8, Baso % (Auto) 0.1, Absolute Neuts (auto) 5.4 , Total Counted Not Reportable 11/17/17 18:15: Sodium 147 H, Potassium 5.0, Chloride 112 H, Carbon Dioxide 31.0 , Anion Gap 4 L, BUN 38 H, Creatinine 1.47 H, Est GFR (MDRD) Af Amer 45 L, Est GFR (MDRD) Non-Af 37 L, BUN/Creatinine Ratio 25.9 H, Glucose 95, Calcium 8.6, Total Bilirubin 0.50, Troponin I < 0.015 11/17/17 22:14: VBG pH 7.34, VBG pO2 35, VBG O2 Sat (Calc) 62, VBG O2 Content 29 , VBG Base Excess 2 11/18/17 04:40: WBC 7.5, RBC 4.87, Hgb 14.5, Hct 47.2 H, MCV 96.9, MCH 29.8, MCHC 30.7 L, RDW 15.3 H, RDW Differential 54.0 H, Plt Count 132 L, MPV 10.1, Immature Gran % (Auto) 0.300, Neut % (Auto) 75.4 H, Lymph % (Auto) 12.0 L, [place] % (Auto) 11.0 H, Eos % (Auto) 1.2, Baso % (Auto) 0.1, Absolute Neuts (auto) 5.6 , Total Counted Not Reportable 11/18/17 04:40: Sodium 150 H, Potassium 4.3, Chloride 114 H, Carbon Dioxide 29.0 , Anion Gap 7, BUN 36 H, Creatinine 1.16 H, Est GFR (MDRD) Af Amer 59 L, Est GFR (MDRD) Non-Af 49 L, BUN/Creatinine Ratio 31.0 H, Glucose 91, Calcium 8.6, Phosphorus 2.2 L, Magnesium 2.1 11/18/17 04:40: B-Natriuretic Peptide 159.1 H 11/18/17 04:40: Triglycerides 115 11/18/17 06:29: pH 7.35, Bicarbonate Actual 25.7, POC Total CO2 27, Base Excess 0, O2 Saturation 89 L, ABG pCO2 46.8 H, ABG pO2 60 L, Andrew Test POS Rhythm: Sinus rhythm; PACs; atrial bigeminy EKG: Sinus rhythm; PACs; right bundle branch block pattern ECHO: Follow-up transthoracic echocardiogram: Pending CXR: Reviewed/report reviewed Medical Necessity - Tobacco Use Smoking Status: Former smoker - quit 1989 smoked x 10 years Tobacco Use: Cigarettes Assessment/Plan 1. Atrial flutter with rapid ventricular response The patient has undergone noninvasive evaluation. She has undergone synchronized biphasic DC cardioversion. She did regain sinus rhythm. She continues with a sinus bradycardia with PACs and intermittent atrial bigeminy. She has not required continued rate limiting therapy. She will continue rate control therapy and anticoagulant therapy at this time. 2. Cardiomyopathy Based upon her noninvasive studies she does have diminished LV systolic function as well as right ventricular enlargement and diminished RV systolic function. There is a concern that her diminished LV systolic function may be related to her underlying atrial dysrhythmia and rapid ventricular response. Hopefully she will remain in sinus rhythm and with medications this will improve. There is concern about her right sided enlargement and dysfunction. There is concern this may be related to underlying pulmonary disease process such as obstructive sleep apnea. Based upon her ongoing pulmonary issues her cardiac anatomy and function is being reassessed with a follow-up echocardiogram. 3. Hypertension Her blood pressures have improved and/or become hypertensive again. She is continuing to be followed. She will continue medical management as deemed appropriate. 4. Acute renal insufficiency Her renal function has improved. Based upon her pulmonary status she is going to receive IV diuretics. Her renal function will be followed. 5. GERD She states she has a history of GERD. She states she cannot tolerate aspirin because it upsets my stomach . She is unclear whether she ever took coated aspirin and whether that would bother her in any negative way. 6. Obesity The patient is morbidly obese. This may be contributing to her diagnosis, symptoms, etc. This can make it challenging with respect to further diagnostic studies, etc. 7. Lethargy/obtundation The etiology is unclear. There are concerns this may have been related to an ongoing pulmonary process. 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 The present time she continues in the ICU with the need for mechanical intubation/ventilation. Comment: The above was discussed with the patient and Dr. King. This note was generated with [employer] dictation software. It may contain incorrect words, spelling, and punctuation that were not noted in checking the note before signing.
[2017-11-18 12:06] LABS: Bedside Glucose 87 mg/dL (70-110)
[2017-11-18] MEDS: Enalaprilat 1.25 MG/ML Vial 0.625 MG IV ×2 (13:24→18:33)
[2017-11-18] MEDS: Piperacil/Tazobactam 3.375 GM/50 ML ML IV ×2 (14:38→21:08)
[2017-11-18] MEDS: Rivaroxaban 20 MG Tablet GT (17:08)
[2017-11-18 17:30] LABS: Bedside Glucose 108 mg/dL (70-110)
[2017-11-18] MEDS: Vancomycin IV 1,000 MG/200 ML BAG 200 MG IV (18:33)
[2017-11-19] VITALS (40 sets, daily range): BP systolic 90–150; BP diastolic 37–94; PULSE 62–91; RESP 15–26; TEMP 36.4–37.4; O2SAT 90–98
[2017-11-19 00:21] LABS: Bedside Glucose 97 mg/dL (70-110)
[2017-11-19] MEDS: Ipratropium/Albuterol Sulfate 3 ML AMPUL.NEB INHALATION ×6 (03:04→22:43)
[2017-11-19 03:53] LABS: Absolute Lymphocyte Count 1.16 X10^3/ul (0.83-4.51); Absolute Neutrophil Count 5.4 X10^3/uL (2.0-7.7); Eosinophil# 0.11 X10^3/uL; Eosinophils% 1.5 % (0-5); Hematocrit 44.3 % (37-47); Lymphocyte # 1.16 X10^3/ul (4.0); Lymphocyte % 15.3 % (19-41); Mean Corp Hgb Conc 31.6 g/gl (32-36); Mean Corpuscular Hgb 29.8 pg (27.0-32.0); Mean Corpuscular Volume 94.3 fL (81-99); Mean Platelet Vol. 9.4 fl (6.2-12.0); Monocyte# 0.88 X10^3/uL; Monocyte% 11.6 % (0-10); Neutrophil # 5.39 X10^3/uL (2.7-7.7); Neutrophil % 71.3 % (47-70); Platelet Count 145 K/mm3 (150-450); RBC Distribution Width CV 15.3 % (11.6-14.6); White Blood Count 7.6 K/mm3 (4.4-11.0)
[2017-11-19 03:58] LABS: POSITIVE COUNT NO; POSITIVE DIFFERENTIAL NO; POSITIVE MORPHOLOGY NO
[2017-11-19 04:09] LABS: Anion Gap 9 (5-15); BUN 40 mg/dL (7-18); BUN/Creat Ratio 26.3 RATIO (10-20); Calcium,Total 8.4 mg/dL (8.5-10.1); Chloride 111 mmol/L (98-107); Creatinine, Serum 1.52 mg/dL (0.55-1.02); EST Glomerular Filtration Rate 36 mL/min (>60); Est Glom Filt Rate - Afr Amer 44 mL/min (>60); Estimated Creatinine Clearance 31.43 ml/min; Glucose 139 mg/dL (74-106); Sodium Level 150 mmol/L (136-145)
--- NOTE | 2017-11-19 06:13 | PN_ITS ---
Subjective: The patient was seen and examined at the bedside this morning. Events from the last 24 hours have been reviewed. The patient is currently afebrile, hemodynamically stable and maintaining appropriate oxygen saturations on ACVC+ with an FiO2 requirement of 60%. The patient did receive IV Lasix 40 mg twice daily yesterday. In addition, she was started on low-dose Vasotec by cardiology. Despite this, the patient was only overall net -512 mL's yesterday. Unfortunately, her creatinine has increased from 1.16 to 1.52 this morning. Her blood pressures are now a bit tenuous. Therefore, the aforementioned medications were subsequently discontinued. Her PEEP was able to be weaned down to 10, but her FiO2 remains at 60%. Objective: The patient's most recent lab work, culture data and imaging studies have all been personally reviewed. Surface echocardiogram revealed mild concentric LVH with mild global left systolic dysfunction and an ejection fraction of 45%. Right ventricular systolic pressure was estimated to be 34 mmHg. Blood and urine cultures are pending. Sputum Gram stain revealed 2+ gram-negative rods and 2+ gram-positive cocci. Strep and urine Legionella antigens were both negative. Head CT dated November 17 revealed chronic involutional changes without intracranial hemorrhage or evidence of acute infarction. General: - - Remains intubated, appropriately sedated and mechanically ventilated. Tolerating assist control mode mechanical ventilation without issue. HEENT: Atraumatic, PERRLA, Normocephalic Oral: No Gingival or Mucosal Lesions/ Ulcerations, - - Endotracheal and OG tubes remain in place. Neck: Supple, No Nodes, Trachea Midline, - - Large neck circumference with redundant soft tissue. Lungs: No wheeze, No rales, Diminished, Rhonchi Cardiovascular: Normal S1, Normal S2, No murmurs, - - Irregular with continued bigeminy. Abdomen: Bowel Sounds Present, Soft, Non Tender, Obese Extremities: No clubbing, No cyanosis, Edema Skin: - - No significant change from previous. Musculoskeletal: No Tenderness to Palpation of Joints or Extremities, No Muscle Wasting Lymphatic: No Cervical, Supraclavicular, or Inguinal Adenopathy Neurological: - - No focal neurological deficits. Moves extremities spontaneously. Appropriately sedated with a RASS of -1. Will arouse to verbal stimulation. Vital Signs Temp Pulse Resp BP Pulse Ox 98.4 F 82 16 111/65 91 11/19/17 04:00 11/19/17 05:00 11/19/17 05:00 11/19/17 05:00 11/19/17 05:00 Oxygen Flow Rate (L/min) 40 Oxygen Delivery Method Mechanical Ventilator Weight: 354 lb 4.525 oz Body Mass Index (BMI) 58.2 Intake and Output for Last 24 Hours 11/17/17 11/18/17 11/19/17 23:59 23:59 23:59 Intake Total 1568 / 1568 1738 / 1738 831.2 / 831.2 Output Total 1350 / 1350 2250 / 2250 800 / 800 Balance 218 / 218 -512 / -512 31.2 / 31.2 Labs (Last 48 Hours) 11/17/17 11/17/17 11/17/17 06:45 10:13 12:45 WBC RBC Hgb Hct MCV MCH MCHC RDW RDW Differential Plt Count MPV Immature Gran % (Auto) Neut % (Auto) Lymph % (Auto) [place] % (Auto) Eos % (Auto) Baso % (Auto) Absolute Neuts (auto) Absolute Lymphs (auto) Total Counted Specimen Type ART ART Sample Site L Radial R Radial pH 7.02 L* 7.10 L* Bicarbonate Actual 29.3 H 29.7 H POC Total CO2 33 33 Base Excess -2 0 O2 Saturation 91 L 85 L O2 % 40 ABG pCO2 114.7 H* 96.8 H* ABG pO2 93 71 L Andrew Test POS POS VBG pH VBG pO2 VBG O2 Sat (Calc) VBG O2 Content VBG Base Excess POC Mix VBG pCO2 Pt Tmp Respiration Rate 19 O2 Delivery Device Nasal Can Bi / C PAP Liter Flow 4.0 Minute Volume Vent Mode Tidal Volume POC PEEP EPAP 10 IPAP 16 Blood Gas Notified Whom HOSP HOSP Blood Gas Notified Time 1012 1240 Sodium 147 H Potassium 4.8 Chloride 111 H Carbon Dioxide 31.0 Anion Gap 5 BUN 40 H Creatinine 1.55 H Estim Creat Clear Calc 30.82 Est GFR (MDRD) Af Amer 43 L Est GFR (MDRD) Non-Af 35 L BUN/Creatinine Ratio 25.8 H Glucose 115 H Calcium 8.9 Phosphorus Magnesium Total Bilirubin AST ALT Alkaline Phosphatase Total Creatine Kinase Troponin I B-Natriuretic Peptide Total Protein Albumin Globulin Albumin/Globulin Ratio Triglycerides TSH MRSA (PCR) POC Glucose 11/17/17 11/17/17 11/17/17 18:15 18:15 21:41 WBC 7.4 RBC 4.81 Hgb 14.3 Hct 48.2 H MCV 100.2 H MCH 29.7 MCHC 29.7 L RDW 15.3 H RDW Differential 56.2 H Plt Count 131 L MPV 9.9 Immature Gran % (Auto) 0.400 Neut % (Auto) 73.7 H Lymph % (Auto) 13.7 L [place] % (Auto) 11.3 H Eos % (Auto) 0.8 Baso % (Auto) 0.1 Absolute Neuts (auto) 5.4 Absolute Lymphs (auto) 1.01 Total Counted Not Reportable Specimen Type Sample Site pH Bicarbonate Actual POC Total CO2 Base Excess O2 Saturation O2 % ABG pCO2 ABG pO2 Andrew Test VBG pH VBG pO2 VBG O2 Sat (Calc) VBG O2 Content VBG Base Excess POC Mix VBG pCO2 Pt Tmp Respiration Rate O2 Delivery Device Liter Flow Minute Volume Vent Mode Tidal Volume POC PEEP EPAP IPAP Blood Gas Notified Whom Blood Gas Notified Time Sodium 147 H Potassium 5.0 Chloride 112 H Carbon Dioxide 31.0 Anion Gap 4 L BUN 38 H Creatinine 1.47 H Estim Creat Clear Calc 32.50 Est GFR (MDRD) Af Amer 45 L Est GFR (MDRD) Non-Af 37 L BUN/Creatinine Ratio 25.9 H Glucose 95 Calcium 8.6 Phosphorus Magnesium Total Bilirubin 0.50 AST 22 ALT 45 Alkaline Phosphatase 111 Total Creatine Kinase Troponin I < 0.015 B-Natriuretic Peptide Total Protein 6.1 L Albumin 2.7 L Globulin 3.4 Albumin/Globulin Ratio 0.8 L Triglycerides TSH 0.96 MRSA (PCR) Negative POC Glucose 11/17/17 11/18/17 11/18/17 22:14 04:40 04:40 WBC 7.5 RBC 4.87 Hgb 14.5 Hct 47.2 H MCV 96.9 MCH 29.8 MCHC 30.7 L RDW 15.3 H RDW Differential 54.0 H Plt Count 132 L MPV 10.1 Immature Gran % (Auto) 0.300 Neut % (Auto) 75.4 H Lymph % (Auto) 12.0 L [place] % (Auto) 11.0 H Eos % (Auto) 1.2 Baso % (Auto) 0.1 Absolute Neuts (auto) 5.6 Absolute Lymphs (auto) 0.90 Total Counted Not Reportable Specimen Type SARA Sample Site L Brachial pH Bicarbonate Actual POC Total CO2 Base Excess O2 Saturation O2 % 40 ABG pCO2 ABG pO2 Andrew Test VBG pH 7.34 VBG pO2 35 VBG O2 Sat (Calc) 62 VBG O2 Content 29 VBG Base Excess 2 POC Mix VBG pCO2 Pt Tmp 51.1 H Respiration Rate 16 O2 Delivery Device Vent Liter Flow Minute Volume 6.00 Vent Mode Tidal Volume 400 POC PEEP 5 EPAP IPAP Blood Gas Notified Whom ICU MD Blood Gas Notified Time 2210 Sodium 150 H Potassium 4.3 Chloride 114 H Carbon Dioxide 29.0 Anion Gap 7 BUN 36 H Creatinine 1.16 H Estim Creat Clear Calc 41.19 Est GFR (MDRD) Af Amer 59 L Est GFR (MDRD) Non-Af 49 L BUN/Creatinine Ratio 31.0 H Glucose 91 Calcium 8.6 Phosphorus 2.2 L Magnesium 2.1 Total Bilirubin AST ALT Alkaline Phosphatase Total Creatine Kinase Troponin I B-Natriuretic Peptide Total Protein Albumin Globulin Albumin/Globulin Ratio Triglycerides TSH MRSA (PCR) POC Glucose 11/18/17 11/18/17 11/18/17 04:40 04:40 06:29 WBC RBC Hgb Hct MCV MCH MCHC RDW RDW Differential Plt Count MPV Immature Gran % (Auto) Neut % (Auto) Lymph % (Auto) [place] % (Auto) Eos % (Auto) Baso % (Auto) Absolute Neuts (auto) Absolute Lymphs (auto) Total Counted Specimen Type ART Sample Site R Radial pH 7.35 Bicarbonate Actual 25.7 POC Total CO2 27 Base Excess 0 O2 Saturation 89 L O2 % 60 ABG pCO2 46.8 H ABG pO2 60 L Andrew Test POS VBG pH VBG pO2 VBG O2 Sat (Calc) VBG O2 Content VBG Base Excess POC Mix VBG pCO2 Pt Tmp Respiration Rate 16 O2 Delivery Device Vent Liter Flow Minute Volume 6.00 Vent Mode A-C Tidal Volume 400 POC PEEP 12 EPAP IPAP Blood Gas Notified Whom ICU MD Blood Gas Notified Time 628 Sodium Potassium Chloride Carbon Dioxide Anion Gap BUN Creatinine Estim Creat Clear Calc Est GFR (MDRD) Af Amer Est GFR (MDRD) Non-Af BUN/Creatinine Ratio Glucose Calcium Phosphorus Magnesium Total Bilirubin AST ALT Alkaline Phosphatase Total Creatine Kinase 56 Troponin I B-Natriuretic Peptide 159.1 H Total Protein Albumin Globulin Albumin/Globulin Ratio Triglycerides 115 TSH MRSA (PCR) POC Glucose 11/18/17 11/18/17 11/19/17 11:55 17:06 00:09 WBC RBC Hgb Hct MCV MCH MCHC RDW RDW Differential Plt Count MPV Immature Gran % (Auto) Neut % (Auto) Lymph % (Auto) [place] % (Auto) Eos % (Auto) Baso % (Auto) Absolute Neuts (auto) Absolute Lymphs (auto) Total Counted Specimen Type Sample Site pH Bicarbonate Actual POC Total CO2 Base Excess O2 Saturation O2 % ABG pCO2 ABG pO2 Andrew Test VBG pH VBG pO2 VBG O2 Sat (Calc) VBG O2 Content VBG Base Excess POC Mix VBG pCO2 Pt Tmp Respiration Rate O2 Delivery Device Liter Flow Minute Volume Vent Mode Tidal Volume POC PEEP EPAP IPAP Blood Gas Notified Whom Blood Gas Notified Time Sodium Potassium Chloride Carbon Dioxide Anion Gap BUN Creatinine Estim Creat Clear Calc Est GFR (MDRD) Af Amer Est GFR (MDRD) Non-Af BUN/Creatinine Ratio Glucose Calcium Phosphorus Magnesium Total Bilirubin AST ALT Alkaline Phosphatase Total Creatine Kinase Troponin I B-Natriuretic Peptide Total Protein Albumin Globulin Albumin/Globulin Ratio Triglycerides TSH MRSA (PCR) POC Glucose 87 108 97 11/19/17 11/19/17 03:45 03:45 WBC 7.6 RBC 4.70 Hgb 14.0 Hct 44.3 MCV 94.3 MCH 29.8 MCHC 31.6 L RDW 15.3 H RDW Differential 52.0 H Plt Count 145 L MPV 9.4 Immature Gran % (Auto) 0.300 Neut % (Auto) 71.3 H Lymph % (Auto) 15.3 L [place] % (Auto) 11.6 H Eos % (Auto) 1.5 Baso % (Auto) 0.0 Absolute Neuts (auto) 5.4 Absolute Lymphs (auto) 1.16 Total Counted Not Reportable Specimen Type Sample Site pH Bicarbonate Actual POC Total CO2 Base Excess O2 Saturation O2 % ABG pCO2 ABG pO2 Andrew Test VBG pH VBG pO2 VBG O2 Sat (Calc) VBG O2 Content VBG Base Excess POC Mix VBG pCO2 Pt Tmp Respiration Rate O2 Delivery Device Liter Flow Minute Volume Vent Mode Tidal Volume POC PEEP EPAP IPAP Blood Gas Notified Whom Blood Gas Notified Time Sodium 150 H Potassium 4.0 Chloride 111 H Carbon Dioxide 30.0 Anion Gap 9 BUN 40 H Creatinine 1.52 H Estim Creat Clear Calc 31.43 Est GFR (MDRD) Af Amer 44 L Est GFR (MDRD) Non-Af 36 L BUN/Creatinine Ratio 26.3 H Glucose 139 H Calcium 8.4 L Phosphorus Magnesium Total Bilirubin AST ALT Alkaline Phosphatase Total Creatine Kinase Troponin I B-Natriuretic Peptide Total Protein Albumin Globulin Albumin/Globulin Ratio Triglycerides TSH MRSA (PCR) POC Glucose Microbiology 11/18/17 01:50 Sputum, Tracheal Aspirate Gram Stain - Final 11/18/17 06:50 Urine Catheter - Catheter Legionella Antigen - Final 11/18/17 06:50 Urine Catheter - Catheter Streptococcus pneumoniae Antigen ( M - Final Clinical Impression(s) from Imaging Studies Chest X-Ray 11/14/17 09:52 IMPRESSION: Cardiomegaly. Mild increased markings at the lung bases suggestive of linear atelectasis and/or scarring. Electronically Signed: Lewis Aguirre MD at 10:22 EDT Tel [phone], Service support , Chest CTA 11/15/17 14:45 IMPRESSION: Bilateral pleural effusions with bibasilar infiltration and/or atelectasis. Focal infiltrate in the posterior aspect of the exam of the left upper lobe as well as increased markings in the right middle lobe. Electronically Signed: Lewis Aguirre MD at 15:39 EDT Tel [phone], Service support , Chest X-Ray 11/17/17 08:16 IMPRESSION: Cardiomegaly. Bibasilar patchy infiltrates. Follow-up is recommended. Electronically Signed: Lewis Aguirre MD at 10:44 EDT Tel [phone], Service support , Chest X-Ray 11/17/17 13:55 IMPRESSION: Endotracheal tube and feeding tube placement. Bilateral infiltrates or edema and small effusions. Electronically Signed: Clarke Fragoso MD at 14:46 EDT , Service support , Brain CT 11/17/17 16:30 IMPRESSION: 1. Chronic involutional changes of the brain. 2. Nasogastric and endotracheal tubes are noted. 3. There is no intracranial hemorrhage or evidence of acute infarct. The visualized paranasal sinuses appear within normal limits. Electronically Signed: Kevin Newsome MD at 16:52 EDT , Service support , Chest X-Ray 11/18/17 06:15 IMPRESSION: Bilateral infiltrates or edema and pleural effusions with worsening. Electronically Signed: Clarke Fragoso MD at 8:24 EDT , Service support , Medical Necessity - Tobacco Use Smoking Status: Former smoker - quit 1990 smoked x 10 years Tobacco Use: Cigarettes Assessment/Plan All Active Problems Atrial flutter (Acute) Chest pain (Acute) Shortness of breath (Acute) RECOMMENDATIONS: 1. Discontinue Vasotec and Lasix. 2. Continue broad-spectrum antibiotics. 3. Continue low-dose propofol and fentanyl for sedation. 4. Continue tube feeds 5. Continue Xarelto 6. Continue Protonix for GI prophylaxis 7. Wean FiO2 and PEEP as tolerated. IMPRESSIONS: 1. Acute hypoxemic and hypercarbic respiratory failure secondary to healthcare associated pneumonia/pulmonary edema Unclear etiology for the patient's acute decompensation from a respiratory perspective. She did not have significant metabolic derangements, nor did she receive any sedating medications. In addition, the patient does not appear to have chronic CO2 retention. The patient did require transfer and emergent intubation after she failed to respond to noninvasive positive pressure ventilation in the setting of hypercarbic encephalopathy. Follow-up chest imaging has demonstrated findings of bilateral infiltrates, which is likely indicative of a smoldering pulmonary infectious process, which has now declared itself, in conjunction with a component of pulmonary edema. Although not initially started due to a lack of fever or leukocytosis, antibiotics were initiated on 11/18 due to increasing FiO2 and PEEP requirements, along with increasing sputum production. Her underlying acid-base disturbance has since corrected. Attempts to diurese the patient have been unsuccessful, as each time she is given a diuretic, she develops worsening renal function. We will plan to hold off on any additional diuresis today, given the bump in her creatinine. We will plan to continue to wean FiO2 and PEEP to maintain an oxygen saturation at or above 90%. Continue current sedation regimen and tube feeds. 2. Encephalopathy As noted above, etiology for the patient's encephalopathy was likely secondary to hypercarbia. However, the exact reason for her acute hypercapnia remains a bit unclear. A CT head was obtained which revealed no acute intracranial process that would explain her encephalopathy and/or predisposition to retain CO2. She would certainly be at high risk for development of CO2 retention from obesity hypoventilation. 3. Atrial flutter with rapid ventricular response/underlying cardiomyopathy Continue current medical management per cardiology recommendations. 4. Suspected sleep disordered breathing The patient undoubtedly needs to be followed up as an outpatient to undergo a formal diagnostic polysomnogram. However, in the interim, when the patient is appropriate for a trial of extubation, will initiate empiric BiPAP therapy on a nocturnal basis. 5. Acute kidney injury The patient's creatinine had initially improved following contrast administration at the beginning of her hospitalization. However, attempts at diuresis yesterday led to an increase in her creatinine this morning. Therefore , diuretics have been placed on hold. Urine output is appropriate, nonetheless. Therefore, we will continue to monitor creatinine. No indication for renal replacement therapy at this time. 6. Super morbid obesity/GERD/hypertension Complicates care, management, recovery and prognosis. Hold antihypertensives at this time. Continue tube feeds. TIME: 45 minutes of critical care time, independent of procedures, was spent addressing the patient's acute hypoxemic and hypercarbic respiratory failure, encephalopathy, atrial flutter with rapid ventricular response, suspected sleep disordered breathing, acute kidney injury, review of all data and collaboration with the care team. ([id number]) Code Visit [id number]: [id number] Critical care first hour
[2017-11-19] MEDS: Propofol 10MG/Ml 1,000 MG/100 ML Bottle 4.821 MG CONT INF ×2 (06:53→17:16)
[2017-11-19] MEDS: Piperacil/Tazobactam 3.375 GM/50 ML ML IV ×3 (06:53→22:15)
[2017-11-19] MEDS: Vancomycin IV 1,000 MG/200 ML BAG 200 MG IV ×2 (07:28→18:26)
--- NOTE | 2017-11-19 08:30 | PCM.PN.HOSP ---
Patient Problems: Active and Suspected Problems Atrial flutter (Acute) Chest pain (Acute) Shortness of breath (Acute) Subjective: Still on vent. Objective: Cr up to 1.52 and lasix dc'd. Still on 60% FiO2. Vitals/I&O's: Vital Signs Temp Pulse Resp BP Pulse Ox 36.9 C 86 16 136/65 H 91 11/19/17 04:00 11/19/17 07:01 11/19/17 07:00 11/19/17 07:00 11/19/17 07:00 Oxygen Flow Rate (L/min) 40 Oxygen Delivery Method Mechanical Ventilator Weight: 160.4 kg Body Mass Index (BMI) 58.2 Intake and Output for Last 24 Hours 11/17/17 11/18/17 11/19/17 23:59 23:59 23:59 Intake Total 1568 / 1568 1738 / 1738 1623.4 / 1623.4 Output Total 1350 / 1350 2250 / 2250 1000 / 1000 Balance 218 / 218 -512 / -512 623.4 / 623.4 General: Alert, No apparent distress, - - intubated and sedated. HEENT: Atraumatic, Normocephalic Oral: Moist Mucosa, No Gingival or Mucosal Lesions/ Ulcerations, - - ETT and OG in place. Neck: No Nodes, Thyroid Normal Size and Texture Lungs: Clear to auscultation, Diminished Cardiovascular: Regular rate, Regular Rhythm, Normal S1, Normal S2 Abdomen: Bowel Sounds Present, Soft, Non Tender, Non-Distended, No Hepato-splenomegaly Extremities: No edema, No Calf Tenderness Skin: No rashes, No breakdown Musculoskeletal: No Tenderness to Palpation of Joints or Extremities, No Muscle Wasting Microbiology Past 72 Hours 11/18/17 01:50 Sputum, Tracheal Aspirate Gram Stain - Final 11/18/17 06:50 Urine Catheter - Catheter Legionella Antigen - Final 11/18/17 06:50 Urine Catheter - Catheter Streptococcus pneumoniae Antigen (M - Final Laboratory Results 11/18/17 11:55: POC Glucose 87 11/18/17 17:06: POC Glucose 108 11/19/17 00:09: POC Glucose 97 11/19/17 03:45: WBC 7.6, RBC 4.70, Hgb 14.0, Hct 44.3, MCV 94.3, MCH 29.8, MCHC 31.6 L, RDW 15.3 H, RDW Differential 52.0 H, Plt Count 145 L, MPV 9.4, Immature Gran % (Auto) 0.300, Neut % (Auto) 71.3 H, Lymph % (Auto) 15.3 L, [place] % (Auto) 11.6 H, Eos % (Auto) 1.5, Baso % (Auto) 0.0, Absolute Neuts (auto) 5.4, Absolute Lymphs (auto) 1.16, Total Counted Not Reportable 11/19/17 03:45: Sodium 150 H, Potassium 4.0, Chloride 111 H, Carbon Dioxide 30.0, Anion Gap 9, BUN 40 H, Creatinine 1.52 H, Estim Creat Clear Calc 31.43, Est GFR (MDRD) Af Amer 44 L, Est GFR (MDRD) Non-Af 36 L, BUN/Creatinine Ratio 26.3 H, Glucose 139 H, Calcium 8.4 L Current Medications Acetaminophen (Tylenol) 650 mg PO Q6H PRN PRN PRN Reason: Mild Pain (1-3)/Temp > 100.7 F Last Admin: 11/17/17 00:23 Dose: 650 mg Albuterol Sulfate (Ventolin Aerosols) 2.5 mg INHALATION Q2H PRN PRN PRN Reason: SOB &/OR WHEEZING Albuterol/Ipratropium (Duoneb) 3 ml INHALATION Q4H.RT [facility] Last Admin: 11/19/17 06:26 Dose: 3 ml Chlorhexidine Gluconate () 15 ml PO BID [facility] Last Admin: 11/18/17 21:03 Dose: 15 ml Chlorhexidine Gluconate () 1 each TOPICAL DAILY [facility] Last Admin: 11/18/17 01:28 Dose: 1 each Heparin Sodium (Beef Lung) (Heparin 500 Unit/5 Ml (100/Ml)) 500 unit IV UD PRN PRN Reason: HEPARIN FLUSH Sodium Chloride () 1,000 mls @ 15 mls/hr IV .Q48H [facility] PRN Reason: KVO Last Admin: 11/18/17 17:33 Dose: Not Given Fentanyl () 100 mls @ 2.5 mls/hr IV .Q40H [facility] PRN Reason: Protocol Last Admin: 11/19/17 07:27 Dose: 2.5 mls/hr Piperacillin Sod/Tazobactam Sod (Zosyn) 3.375 gm in 50 mls @ 12.5 mls/hr IV Q8 [facility] Last Admin: 11/19/17 06:53 Dose: 12.5 mls/hr Vancomycin IV Pharmacy to Dose (1 ea/ Sodium Chloride) 500 mls @ 250 mls/hr IV X1 PRN; Protocol PRN Reason: Rx to Dose Pantoprazole Sodium 40 mg/ (Sodium Chloride) 110 mls @ 330 mls/hr IV Q24 [facility] Last Admin: 11/18/17 09:57 Dose: 330 mls/hr Propofol (Diprivan) 1,000 mg in 100 mls @ 4.821 mls/hr CONT INF .Q12H LAQUITA; 5 MCG/KG/MIN PRN Reason: Protocol Last Admin: 11/19/17 06:53 Dose: 4.821 mls/hr Vancomycin HCl (Vancomycin) 1,000 mg in 200 mls @ 200 mls/hr IV Q12H [facility] Last Admin: 11/19/17 07:28 Dose: 200 mls/hr Enteral Nutritional Formula (Vital Af 1.2 Jose Liquid) 1,000 mls @ 60 mls/hr GT .[id number] [facility] Last Admin: 11/19/17 06:37 Dose: Not Given Ondansetron HCl (Zofran) 4 mg IV Q6H PRN PRN PRN Reason: nausea, emesis Polyethylene Glycol (Miralax) 17 gm GT BID [facility] Last Admin: 11/18/17 21:07 Dose: 17 gm Rivaroxaban (Xarelto) 20 mg GT DAILY@1800 [facility] Last Admin: 11/18/17 17:08 Dose: 20 mg Senna/Docusate Sodium (Senokot-S, Cindy-Colace) 2 tablet GT BID [facility] Last Admin: 11/18/17 21:07 Dose: 2 tablet Sodium Chloride () 5 - 30 ml IV UD PRN PRN Reason: SALINE FLUSH Last Admin: 11/18/17 09:58 Dose: 10 ml Sodium Chloride () 10 - 20 ml IV UD PRN PRN Reason: PICC FLUSH Last Admin: 11/18/17 06:53 Dose: 20 ml Medical Necessity - Tobacco Use Smoking Status: Former smoker - quit 1989 smoked x 10 years Tobacco Use: Cigarettes Assessment/Plan All Active Problems Atrial flutter (Acute) Chest pain (Acute) Shortness of breath (Acute) 1. Acute hypercapnic respiratory failure Secondary to pleural effusions plus possible developing pneumonia plus possible heart failure with possible obstructive sleep apnea and obesity hypoventilation On empiric antibiotics with Zosyn and vancomycin Pulmonary toilet Pulmonary management appreciated outpt pulm follow up on vent 60% FiO2 2. Suspected gram-negative pneumonia Concern is for healthcare acquired pneumonia Continue with empiric broad-spectrum antibiotics Urinary antigens for strep coccus and Legionella are negative Sputum and blood culture pending. 3. Heart failure with reduced ejection fraction Ejection fraction of 45% on Coreg no ACEi/ARB given EKATERINA at this time. lasix stopped given EKATERINA 4. Ventricular bigeminy resolved K + Mg OK monitor 5. EKATERINA recurred with lasix monitor with the addition of lasix 6. Aflutter w RVR s/p DCCV on Xarelto 8. Metabolic encephalopathy d/t hypercapnia 9. DVT proph: anticoagulated 10. GI proph: PPI. SUSAN King. Code Visit Inpatient E&M: 90360 Subs Hosp L2
--- NOTE | 2017-11-19 08:36 | PN_ITS ---
Patient Problems: Active and Suspected Problems Atrial flutter (Acute) Chest pain (Acute) Shortness of breath (Acute) Subjective: Still on vent. Objective: Cr up to 1.52 and lasix dc'd. Still on 60% FiO2. Vitals/I&O's: Vital Signs Temp Pulse Resp BP Pulse Ox 36.9 C 86 16 136/65 H 91 11/19/17 04:00 11/19/17 07:01 11/19/17 07:00 11/19/17 07:00 11/19/17 07:00 Oxygen Flow Rate (L/min) 40 Oxygen Delivery Method Mechanical Ventilator Weight: 160.4 kg Body Mass Index (BMI) 58.2 Intake and Output for Last 24 Hours 11/17/17 11/18/17 11/19/17 23:59 23:59 23:59 Intake Total 1568 / 1568 1738 / 1738 1623.4 / 1623.4 Output Total 1350 / 1350 2250 / 2250 1000 / 1000 Balance 218 / 218 -512 / -512 623.4 / 623.4 General: Alert, No apparent distress, - - intubated and sedated. HEENT: Atraumatic, Normocephalic Oral: Moist Mucosa, No Gingival or Mucosal Lesions/ Ulcerations, - - ETT and OG in place. Neck: No Nodes, Thyroid Normal Size and Texture Lungs: Clear to auscultation, Diminished Cardiovascular: Regular rate, Regular Rhythm, Normal S1, Normal S2 Abdomen: Bowel Sounds Present, Soft, Non Tender, Non-Distended, No Hepato- splenomegaly Extremities: No edema, No Calf Tenderness Skin: No rashes, No breakdown Musculoskeletal: No Tenderness to Palpation of Joints or Extremities, No Muscle Wasting Microbiology Past 72 Hours 11/18/17 01:50 Sputum, Tracheal Aspirate Gram Stain - Final 11/18/17 06:50 Urine Catheter - Catheter Legionella Antigen - Final 11/18/17 06:50 Urine Catheter - Catheter Streptococcus pneumoniae Antigen ( M - Final Laboratory Results 11/18/17 11:55: POC Glucose 87 11/18/17 17:06: POC Glucose 108 11/19/17 00:09: POC Glucose 97 11/19/17 03:45: WBC 7.6, RBC 4.70, Hgb 14.0, Hct 44.3, MCV 94.3, MCH 29.8, MCHC 31.6 L, RDW 15.3 H, RDW Differential 52.0 H, Plt Count 145 L, MPV 9.4, Immature Gran % (Auto) 0.300, Neut % (Auto) 71.3 H, Lymph % (Auto) 15.3 L, [place] % (Auto) 11.6 H, Eos % (Auto) 1.5, Baso % (Auto) 0.0, Absolute Neuts (auto) 5.4, Absolute Lymphs (auto) 1.16, Total Counted Not Reportable 11/19/17 03:45: Sodium 150 H, Potassium 4.0, Chloride 111 H, Carbon Dioxide 30.0 , Anion Gap 9, BUN 40 H, Creatinine 1.52 H, Estim Creat Clear Calc 31.43, Est GFR (MDRD) Af Amer 44 L, Est GFR (MDRD) Non-Af 36 L, BUN/Creatinine Ratio 26.3 H , Glucose 139 H, Calcium 8.4 L Current Medications Acetaminophen (Tylenol) 650 mg PO Q6H PRN PRN PRN Reason: Mild Pain (1-3)/Temp > 100.7 F Last Admin: 11/17/17 00:23 Dose: 650 mg Albuterol Sulfate (Ventolin Aerosols) 2.5 mg INHALATION Q2H PRN PRN PRN Reason: SOB &/OR WHEEZING Albuterol/Ipratropium (Duoneb) 3 ml INHALATION Q4H.RT [facility] Last Admin: 11/19/17 06:26 Dose: 3 ml Chlorhexidine Gluconate () 15 ml PO BID [facility] Last Admin: 11/18/17 21:03 Dose: 15 ml Chlorhexidine Gluconate () 1 each TOPICAL DAILY [facility] Last Admin: 11/18/17 01:28 Dose: 1 each Heparin Sodium (Beef Lung) (Heparin 500 Unit/5 Ml (100/Ml)) 500 unit IV UD PRN PRN Reason: HEPARIN FLUSH Sodium Chloride () 1,000 mls @ 15 mls/hr IV .Q48H [facility] PRN Reason: KVO Last Admin: 11/18/17 17:33 Dose: Not Given Fentanyl () 100 mls @ 2.5 mls/hr IV .Q40H [facility] PRN Reason: Protocol Last Admin: 11/19/17 07:27 Dose: 2.5 mls/hr Piperacillin Sod/Tazobactam Sod (Zosyn) 3.375 gm in 50 mls @ 12.5 mls/hr IV Q8 [facility] Last Admin: 11/19/17 06:53 Dose: 12.5 mls/hr Vancomycin IV Pharmacy to Dose (1 ea/ Sodium Chloride) 500 mls @ 250 mls/hr IV X1 PRN; Protocol PRN Reason: Rx to Dose Pantoprazole Sodium 40 mg/ (Sodium Chloride) 110 mls @ 330 mls/hr IV Q24 [facility] Last Admin: 11/18/17 09:57 Dose: 330 mls/hr Propofol (Diprivan) 1,000 mg in 100 mls @ 4.821 mls/hr CONT INF .Q12H [facility]; 5 MCG/KG/MIN PRN Reason: Protocol Last Admin: 11/19/17 06:53 Dose: 4.821 mls/hr Vancomycin HCl (Vancomycin) 1,000 mg in 200 mls @ 200 mls/hr IV Q12H [facility] Last Admin: 11/19/17 07:28 Dose: 200 mls/hr Enteral Nutritional Formula (Vital Af 1.2 Jose Liquid) 1,000 mls @ 60 mls/hr GT .[id number] [facility] Last Admin: 11/19/17 06:37 Dose: Not Given Ondansetron HCl (Zofran) 4 mg IV Q6H PRN PRN PRN Reason: nausea, emesis Polyethylene Glycol (Miralax) 17 gm GT BID [facility] Last Admin: 11/18/17 21:07 Dose: 17 gm Rivaroxaban (Xarelto) 20 mg GT DAILY@1800 [facility] Last Admin: 11/18/17 17:08 Dose: 20 mg Senna/Docusate Sodium (Senokot-S, Cindy-Colace) 2 tablet GT BID [facility] Last Admin: 11/18/17 21:07 Dose: 2 tablet Sodium Chloride () 5 - 30 ml IV UD PRN PRN Reason: SALINE FLUSH Last Admin: 11/18/17 09:58 Dose: 10 ml Sodium Chloride () 10 - 20 ml IV UD PRN PRN Reason: PICC FLUSH Last Admin: 11/18/17 06:53 Dose: 20 ml Medical Necessity - Tobacco Use Smoking Status: Former smoker - quit 1989 smoked x 10 years Tobacco Use: Cigarettes Assessment/Plan All Active Problems Atrial flutter (Acute) Chest pain (Acute) Shortness of breath (Acute) 1. Acute hypercapnic respiratory failure * Secondary to pleural effusions plus possible developing pneumonia plus possible heart failure with possible obstructive sleep apnea and obesity hypoventilation * On empiric antibiotics with Zosyn and vancomycin * Pulmonary toilet * Pulmonary management appreciated * outpt pulm follow up * on vent 60% FiO2 2. Suspected gram-negative pneumonia * Concern is for healthcare acquired pneumonia * Continue with empiric broad-spectrum antibiotics * Urinary antigens for strep coccus and Legionella are negative * Sputum and blood culture pending. 3. Heart failure with reduced ejection fraction * Ejection fraction of 45% * on Coreg * no ACEi/ARB given EKATERINA at this time. * lasix stopped given EKATERINA 4. Ventricular bigeminy * resolved * K + Mg OK * monitor 5. EKATERINA * recurred with lasix * monitor with the addition of lasix 6. Aflutter w RVR * s/p DCCV * on Xarelto 8. Metabolic encephalopathy * d/t hypercapnia 9. DVT proph: anticoagulated 10. GI proph: PPI. SUSAN King. Code Visit Inpatient E&M: 93263 Subs Hosp L2
[2017-11-19] MEDS: Vital AF 1.2 Cal Liquid 1,000 ML 60 ML GT (10:18)
[2017-11-19] MEDS: Senna/Docusate Sodium 1 Tablet 2 TABLET GT ×2 (10:19→22:15)
[2017-11-19] MEDS: CHLORHEXIDINE GLUC 2% CLOTH 1 EACH TOWELETTE TOPICAL (10:19)
[2017-11-19] MEDS: Polyethylene Glycol 3350 17 GM PACKET GT ×2 (10:19→22:15)
[2017-11-19] MEDS: Chlorhexidine 15 ML PO ×2 (10:20→22:18)
[2017-11-19 11:35] LABS: Bedside Glucose 135 mg/dL (70-110)
--- NOTE | 2017-11-19 11:39 | PN.CARD_ITS ---
Subjectve: The patient remains in the ICU sedated and mechanically intubated/ventilated. She is reported, by the ICU staff, as responding to verbal stimuli with movement of all 4 extremities. Objective: Vital Signs Temp Pulse Resp BP Pulse Ox 98.5 F 81 16 110/37 L 94 11/19/17 10:00 11/19/17 11:00 11/19/17 11:00 11/19/17 11:00 11/19/17 11:00 Oxygen Flow Rate (L/min) 40 Oxygen Delivery Method Mechanical Ventilator Weight: 353 lb 9.943 oz Body Mass Index (BMI) 58.2 Intake and Output for Last 24 Hours 11/17/17 11/18/17 11/19/17 23:59 23:59 23:59 Intake Total 1568 / 1568 1738 / 1738 1683.4 / 1683.4 Output Total 1350 / 1350 2250 / 2250 1000 / 1000 Balance 218 / 218 -512 / -512 683.4 / 683.4 General: Obese Lungs: - - Scattered upper airway sounds Cardiovascular: Regular Rhythm, Premature Ectopic Beats, Normal S1, Normal S2 - Distant heart tones Extremities: Trace RLE Edema, Trace LLE Edema 11/19/17 03:45: WBC 7.6, RBC 4.70, Hgb 14.0, Hct 44.3, MCV 94.3, MCH 29.8, MCHC 31.6 L, RDW 15.3 H, RDW Differential 52.0 H, Plt Count 145 L, MPV 9.4, Immature Gran % (Auto) 0.300, Neut % (Auto) 71.3 H, Lymph % (Auto) 15.3 L, [place] % (Auto) 11.6 H, Eos % (Auto) 1.5, Baso % (Auto) 0.0, Absolute Neuts (auto) 5.4, Total Counted Not Reportable 11/19/17 03:45: Sodium 150 H, Potassium 4.0, Chloride 111 H, Carbon Dioxide 30.0 , Anion Gap 9, BUN 40 H, Creatinine 1.52 H, Est GFR (MDRD) Af Amer 44 L, Est GFR (MDRD) Non-Af 36 L, BUN/Creatinine Ratio 26.3 H, Glucose 139 H, Calcium 8.4 L Rhythm: Sinus rhythm; PACs; atrial bigeminy Medical Necessity - Tobacco Use Smoking Status: Former smoker - quit 1989 smoked x 10 years Tobacco Use: Cigarettes Assessment/Plan 1. Atrial flutter with rapid ventricular response The patient has undergone noninvasive evaluation. She has undergone synchronized biphasic DC cardioversion. She did regain sinus rhythm. She continues with a sinus bradycardia with PACs and intermittent atrial bigeminy. She has not required continued rate limiting therapy. She will continue rate control therapy and anticoagulant therapy at this time. 2. Cardiomyopathy Based upon her noninvasive studies she does have diminished LV systolic function as well as right ventricular enlargement and diminished RV systolic function. There is a concern that her diminished LV systolic function may be related to her underlying atrial dysrhythmia and rapid ventricular response. Hopefully she will remain in sinus rhythm and with medications this will improve. There is concern about her right sided enlargement and dysfunction. There is concern this may be related to underlying pulmonary disease process such as obstructive sleep apnea. She did undergo reevaluation with a transthoracic echocardiogram. Her overall LV systolic function appears to be preserved with an estimated LVEF of 55%, however, her right ventricle continues to be dilated and dysfunctional. Her estimated RV systolic pressure was approximately 35 mmHg. 3. Hypertension Her blood pressures have waxed and waned during her clinical changes and her medication changes. Her lower blood pressures to make it challenging to continue medications such as diuretics, afterload reducing agents, etc. without the need for IV vasopressor support. 4. Acute renal insufficiency Following her diuretics her creatinine level has started to increase again. Thus her diuretics have been placed on hold. 5. GERD She states she has a history of GERD. She states she cannot tolerate aspirin because it upsets my stomach . She is unclear whether she ever took coated aspirin and whether that would bother her in any negative way. 6. Obesity The patient is morbidly obese. This may be contributing to her diagnosis, symptoms, etc. This can make it challenging with respect to further diagnostic studies, etc. Her and sister state that they have attempted over the years to get her to improve her diet and her activity levels to bring her weight under control. However they state that she basically does nothing but eats, sit, and watch television. 7. Lethargy/obtundation The etiology is unclear. There are concerns this may have been related to an ongoing pulmonary process. She is undergone additional evaluation for any acute FOOD CLERK process was a brain CT scan which was negative for any obvious embolic event or hemorrhagic event. The present time she continues in the ICU with the need for mechanical intubation/ventilation. Comment: The above was discussed with the ICU staff and the patient's family members present. This note was generated with [employer] dictation software. It may contain incorrect words, spelling, and punctuation that were not noted in checking the note before signing.
[2017-11-19] MEDS: Rivaroxaban 20 MG Tablet GT (17:16)
[2017-11-19 17:36] LABS: Bedside Glucose 113 mg/dL (70-110)
[2017-11-19] MEDS: 0.9% NaCl Peripheral Flush Adult/Peds IV (18:26)
[2017-11-19 19:09] LABS: Vancomycin, Trough Level 16.4 ug/mL (5.0-15.0)
--- NOTE | 2017-11-19 22:35 | PCM.RX.CS ---
Consult Pharmacy has been consulted to manage selected antiobiotic: Vancomycin Type of Consult: Follow-up Suspected Infection: Other Labs: Sodium 150 mmol/L (136-145) H 11/19/17 03:45 Potassium 4.0 mmol/L (3.5-5.1) 11/19/17 03:45 Chloride 111 mmol/L (98-107) H 11/19/17 03:45 Carbon Dioxide 30.0 mmol/L (21.0-32.0) 11/19/17 03:45 Anion Gap 9 (5-15) 11/19/17 03:45 BUN 40 mg/dL (7-18) H 11/19/17 03:45 Creatinine 1.52 mg/dL (0.55-1.02) H 11/19/17 03:45 Est GFR (MDRD) Af Amer 44 mL/min (>60) L 11/19/17 03:45 Est GFR (MDRD) Non-Af 36 mL/min (>60) L 11/19/17 03:45 BUN/Creatinine Ratio 26.3 RATIO (10-20) H 11/19/17 03:45 Glucose 139 mg/dL (74-106) H 11/19/17 03:45 Vancomycin Trough 16.4 ug/mL (5.0-15.0) H 11/19/17 18:20 Microbiology: Microbiology 11/18/17 06:50 Urine Catheter - Catheter Urine Culture - Preliminary GNR lactose station mechanic GNR lactose station mechanic#2 11/18/17 01:50 Sputum, Tracheal Aspirate Gram Stain - Final 11/18/17 06:50 Urine Catheter - Catheter Legionella Antigen - Final 11/18/17 06:50 Urine Catheter - Catheter Streptococcus pneumoniae Antigen (M - Final Pharmacy Plan for Drug Dosing: Pharmacy Service will continue to monitor and adjust dosing as required. Medications Vancomycin HCl (Vancomycin) 1,000 mg in 200 mls @ 200 mls/hr IV Q12H [facility] Last Admin: 11/19/17 18:26 Dose: 200 mls/hr Follow-Up Labs: Trough Vancomycin Labs to be done on [date and time ordered]: 11/23 @ 1900
--- NOTE | 2017-11-19 22:39 | PHA.PHARE_ITS ---
Consult Pharmacy has been consulted to manage selected antiobiotic: Vancomycin Type of Consult: Follow-up Suspected Infection: Other Labs: Sodium 150 mmol/L (136-145) H 11/19/17 03:45 Potassium 4.0 mmol/L (3.5-5.1) 11/19/17 03:45 Chloride 111 mmol/L (98-107) H 11/19/17 03:45 Carbon Dioxide 30.0 mmol/L (21.0-32.0) 11/19/17 03:45 Anion Gap 9 (5-15) 11/19/17 03:45 BUN 40 mg/dL (7-18) H 11/19/17 03:45 Creatinine 1.52 mg/dL (0.55-1.02) H 11/19/17 03:45 Est GFR (MDRD) Af Amer 44 mL/min (>60) L 11/19/17 03:45 Est GFR (MDRD) Non-Af 36 mL/min (>60) L 11/19/17 03:45 BUN/Creatinine Ratio 26.3 RATIO (10-20) H 11/19/17 03:45 Glucose 139 mg/dL (74-106) H 11/19/17 03:45 Vancomycin Trough 16.4 ug/mL (5.0-15.0) H 11/19/17 18:20 Microbiology: Microbiology 11/18/17 06:50 Urine Catheter - Catheter Urine Culture - Preliminary GNR lactose special collections librarian GNR lactose special collections librarian#2 11/18/17 01:50 Sputum, Tracheal Aspirate Gram Stain - Final 11/18/17 06:50 Urine Catheter - Catheter Legionella Antigen - Final 11/18/17 06:50 Urine Catheter - Catheter Streptococcus pneumoniae Antigen ( M - Final Pharmacy Plan for Drug Dosing: Pharmacy Service will continue to monitor and adjust dosing as required. Medications Vancomycin HCl (Vancomycin) 1,000 mg in 200 mls @ 200 mls/hr IV Q12H [facility] Last Admin: 11/19/17 18:26 Dose: 200 mls/hr Follow-Up Labs: Trough Vancomycin Labs to be done on [date and time ordered]: 11/23 @ 1900
[2017-11-20] VITALS (43 sets, daily range): BP systolic 90–170; BP diastolic 44–80; PULSE 64–91; RESP 16–26; TEMP 35.6–37.2; O2SAT 88–99
[2017-11-20] LABS: Bedside Glucose 114 mg/dL (70-110)
[2017-11-20] MEDS: Ipratropium/Albuterol Sulfate 3 ML AMPUL.NEB INHALATION ×6 (02:38→23:03)
[2017-11-20] MEDS: Vital AF 1.2 Cal Liquid 1,000 ML 60 ML GT ×2 (02:52→17:27)
[2017-11-20] MEDS: CHLORHEXIDINE GLUC 2% CLOTH 1 EACH TOWELETTE TOPICAL (03:34)
[2017-11-20] MEDS: 0.9% NaCl PICC Flush IV (04:38)
[2017-11-20 04:46] LABS: Anion Gap 7 (5-15); BUN 30 mg/dL (7-18); BUN/Creat Ratio 27.3 RATIO (10-20); Calcium,Total 8.2 mg/dL (8.5-10.1); Chloride 109 mmol/L (98-107); EST Glomerular Filtration Rate 52 mL/min (>60); Est Glom Filt Rate - Afr Amer 63 mL/min (>60); Estimated Creatinine Clearance 43.43 ml/min; Glucose 132 mg/dL (74-106); Sodium Level 148 mmol/L (136-145)
[2017-11-20 04:52] LABS: Absolute Lymphocyte Count 0.76 X10^3/ul (0.83-4.51); Absolute Neutrophil Count 2.9 X10^3/uL (2.0-7.7); Basophil# 0.01 X10^3/uL; Basophil% 0.2 % (0-1); Eosinophil# 0.16 X10^3/uL; Eosinophils% 3.5 % (0-5); Hemoglobin 13.3 g/dl (12.0-15.0); Lymphocyte # 0.76 X10^3/ul (4.0); Lymphocyte % 16.6 % (19-41); Mean Corp Hgb Conc 30.2 g/gl (32-36); Mean Corpuscular Hgb 28.9 pg (27.0-32.0); Mean Corpuscular Volume 95.7 fL (81-99); Mean Platelet Vol. 10.3 fl (6.2-12.0); Monocyte# 0.78 X10^3/uL; Monocyte% 17.1 % (0-10); Neutrophil # 2.85 X10^3/uL (2.7-7.7); Neutrophil % 62.4 % (47-70); Platelet Count 116 K/mm3 (150-450); RBC Distribution Width CV 15.2 % (11.6-14.6); RBC Distribution Width SD 53.4 fl (35.1-43.9); White Blood Count 4.6 K/mm3 (4.4-11.0)
[2017-11-20] MEDS: Propofol 10MG/Ml 1,000 MG/100 ML Bottle 4.821 MG CONT INF ×2 (05:18→17:27)
[2017-11-20] MEDS: Piperacil/Tazobactam 3.375 GM/50 ML ML IV (05:18)
[2017-11-20 05:36] LABS: POSITIVE COUNT NO; POSITIVE DIFFERENTIAL NO; POSITIVE MORPHOLOGY NO
[2017-11-20 06:25] LABS: Bedside Glucose 135 mg/dL (70-110)
[2017-11-20] MEDS: Vancomycin IV 1,000 MG/200 ML BAG 200 MG IV (06:36)
--- NOTE | 2017-11-20 07:15 | PCM.PN.INT ---
Subjective: Patient did okay overnight. Patient reportedly was able to be weaned to 7 of PEEP, but overnight derecruited with hypoxemia and had to be increased to CPAP 10 cm of water this morning. Patient is able to wake up to minimal stimulus. Patient reportedly tolerating tube feeds. No bowel movements have been noted. General: No apparent distress, - - RASS -2. Morbidly obese. Good ventilator synchrony noted. HEENT: Atraumatic, PERRLA, EOMI, Normocephalic, - - No scleral icterus or injection noted. Oral: Moist Mucosa, No Gingival or Mucosal Lesions/ Ulcerations Neck: Supple, No Nodes, Trachea Midline, - - JVD difficult to assess secondary to body habitus Lungs: No rhonchi, No wheeze, No rales, Diminished, - - Symmetric expansion. Cardiovascular: Normal S1, Normal S2, Murmur - Grade 2 out of 6 systolic ejection murmur at the right sternal border, No rub noted, No Gallop, - - Bigeminy noted on telemetry Abdomen: Bowel Sounds Present, Soft, Non Tender, Non-Distended, Obese Extremities: No clubbing, No cyanosis, Capillary Refill Less than 3 Seconds, Edema Skin: No rashes, No breakdown Musculoskeletal: No Tenderness to Palpation of Joints or Extremities Lymphatic: No Cervical, Supraclavicular, or Inguinal Adenopathy Neurological: Cranial nerves II-XII grossly intact, Neuro grossly intact, Motor Exam 5/5 strength throughout Psych/Mental Status: Normal Affect, Appropriate Vital Signs Temp Pulse Resp BP Pulse Ox 36.4 C L 72 16 90/52 L 97 11/20/17 06:00 11/20/17 06:00 11/20/17 06:00 11/20/17 06:00 11/20/17 06:00 Oxygen Flow Rate (L/min) 40 Oxygen Delivery Method Mechanical Ventilator Weight: 162.2 kg Body Mass Index (BMI) 58.2 Intake and Output for Last 24 Hours 11/18/17 11/19/17 11/20/17 23:59 23:59 23:59 Intake Total 1738 / 1738 4110.4 / 4110.4 519 / 519 Output Total 2250 / 2250 2075 / 2075 350 / 350 Balance -512 / -512 2035.4 / 2035.4 169 / 169 Labs (Last 48 Hours) 11/18/17 11/18/17 11/18/17 04:40 04:40 11:55 WBC RBC Hgb Hct MCV MCH MCHC RDW RDW Differential Plt Count MPV Immature Gran % (Auto) Neut % (Auto) Lymph % (Auto) [place] % (Auto) Eos % (Auto) Baso % (Auto) Absolute Neuts (auto) Absolute Lymphs (auto) Total Counted Sodium Potassium Chloride Carbon Dioxide Anion Gap BUN Creatinine Estim Creat Clear Calc Est GFR (MDRD) Af Amer Est GFR (MDRD) Non-Af BUN/Creatinine Ratio Glucose Calcium Total Creatine Kinase 56 B-Natriuretic Peptide 159.1 H Triglycerides 115 Vancomycin Trough POC Glucose 87 11/18/17 11/19/17 11/19/17 17:06 00:09 03:45 WBC 7.6 RBC 4.70 Hgb 14.0 Hct 44.3 MCV 94.3 MCH 29.8 MCHC 31.6 L RDW 15.3 H RDW Differential 52.0 H Plt Count 145 L MPV 9.4 Immature Gran % (Auto) 0.300 Neut % (Auto) 71.3 H Lymph % (Auto) 15.3 L [place] % (Auto) 11.6 H Eos % (Auto) 1.5 Baso % (Auto) 0.0 Absolute Neuts (auto) 5.4 Absolute Lymphs (auto) 1.16 Total Counted Not Reportable Sodium Potassium Chloride Carbon Dioxide Anion Gap BUN Creatinine Estim Creat Clear Calc Est GFR (MDRD) Af Amer Est GFR (MDRD) Non-Af BUN/Creatinine Ratio Glucose Calcium Total Creatine Kinase B-Natriuretic Peptide Triglycerides Vancomycin Trough POC Glucose 108 97 11/19/17 11/19/17 11/19/17 03:45 11:27 17:18 WBC RBC Hgb Hct MCV MCH MCHC RDW RDW Differential Plt Count MPV Immature Gran % (Auto) Neut % (Auto) Lymph % (Auto) [place] % (Auto) Eos % (Auto) Baso % (Auto) Absolute Neuts (auto) Absolute Lymphs (auto) Total Counted Sodium 150 H Potassium 4.0 Chloride 111 H Carbon Dioxide 30.0 Anion Gap 9 BUN 40 H Creatinine 1.52 H Estim Creat Clear Calc 31.43 Est GFR (MDRD) Af Amer 44 L Est GFR (MDRD) Non-Af 36 L BUN/Creatinine Ratio 26.3 H Glucose 139 H Calcium 8.4 L Total Creatine Kinase B-Natriuretic Peptide Triglycerides Vancomycin Trough POC Glucose 135 H 113 H 11/19/17 11/19/17 11/20/17 18:20 23:56 04:15 WBC 4.6 RBC 4.60 Hgb 13.3 Hct 44.0 MCV 95.7 MCH 28.9 MCHC 30.2 L RDW 15.2 H RDW Differential 53.4 H Plt Count 116 L MPV 10.3 Immature Gran % (Auto) 0.200 Neut % (Auto) 62.4 Lymph % (Auto) 16.6 L [place] % (Auto) 17.1 H Eos % (Auto) 3.5 Baso % (Auto) 0.2 Absolute Neuts (auto) 2.9 Absolute Lymphs (auto) 0.76 L Total Counted Not Reportable Sodium Potassium Chloride Carbon Dioxide Anion Gap BUN Creatinine Estim Creat Clear Calc Est GFR (MDRD) Af Amer Est GFR (MDRD) Non-Af BUN/Creatinine Ratio Glucose Calcium Total Creatine Kinase B-Natriuretic Peptide Triglycerides Vancomycin Trough 16.4 H POC Glucose 114 H 11/20/17 11/20/17 04:15 06:18 WBC RBC Hgb Hct MCV MCH MCHC RDW RDW Differential Plt Count MPV Immature Gran % (Auto) Neut % (Auto) Lymph % (Auto) [place] % (Auto) Eos % (Auto) Baso % (Auto) Absolute Neuts (auto) Absolute Lymphs (auto) Total Counted Sodium 148 H Potassium 4.0 Chloride 109 H Carbon Dioxide 32.0 Anion Gap 7 BUN 30 H Creatinine 1.10 H Estim Creat Clear Calc 43.43 Est GFR (MDRD) Af Amer 63 Est GFR (MDRD) Non-Af 52 L BUN/Creatinine Ratio 27.3 H Glucose 132 H Calcium 8.2 L Total Creatine Kinase B-Natriuretic Peptide Triglycerides Vancomycin Trough POC Glucose 135 H Microbiology 11/18/17 06:50 Urine Catheter - Catheter Urine Culture - Preliminary GNR lactose publication distributor GNR lactose publication distributor#2 11/18/17 01:50 Sputum, Tracheal Aspirate Gram Stain - Final 11/18/17 06:50 Urine Catheter - Catheter Legionella Antigen - Final 11/18/17 06:50 Urine Catheter - Catheter Streptococcus pneumoniae Antigen (M - Final Medical Necessity - Tobacco Use Smoking Status: Former smoker - quit 1989 smoked x 10 years Tobacco Use: Cigarettes Assessment/Plan All Active Problems Atrial flutter (Acute) Chest pain (Acute) Shortness of breath (Acute) RECOMMENDATIONS: 1. Attempt to decrease sedation 2. Continue broad-spectrum antibiotics. 3. Continue low-dose propofol and fentanyl for sedation. 4. Continue tube feeds 5. Continue Xarelto 6. Continue Protonix for GI prophylaxis 7. Wean FiO2 and PEEP as tolerated. IMPRESSIONS: 1. Acute hypoxemic and hypercarbic respiratory failure secondary to healthcare associated pneumonia/pulmonary edema Patient once again not tolerating decreases in PEEP overnight. Patient is on low tidal volume secondary to predicted body weight. Unclear if patient is having loss of recruitment secondary to obesity. Patient does have bilateral infiltrates and has not responded well to diuretic therapy. Unclear if patient has a concomitant infectious process. Patient does have gram negatives growing from the urine, but sputum cultures have been no growth to date. Continue to wean FiO2 and PEEP as tolerated to keep saturations above 90%. 2. Encephalopathy As noted above, etiology for the patient's encephalopathy was likely secondary to hypercarbia. However, the exact reason for her acute hypercapnia remains a bit unclear. A CT head was obtained which revealed no acute intracranial process that would explain her encephalopathy and/or predisposition to retain CO2. She would certainly be at high risk for development of CO2 retention from obesity hypoventilation. Patient appears to be responding appropriately at this time. 3. Atrial flutter with rapid ventricular response/underlying cardiomyopathy Continue current medical management per cardiology recommendations. A Carol noted on telemetry. 4. Suspected sleep disordered breathing The patient undoubtedly needs to be followed up as an outpatient to undergo a formal diagnostic polysomnogram. However, in the interim, when the patient is appropriate for a trial of extubation, will initiate empiric BiPAP therapy on a nocturnal basis using empiric settings. 5. Acute kidney injury Urine output has remained appropriate. Patient did respond well to discontinuation of TOÑA inhibitor and diuretic therapy. No indication for renal replacement therapy at this time. 6. Super morbid obesity/GERD/hypertension Complicates care, management, recovery and prognosis. Hold antihypertensives at this time. Continue tube feeds. TIME: 35 minutes of critical care time was spent addressing the patient's acute hypoxemic and hypercarbic respiratory failure, suspected sleep disordered breathing, acute kidney injury, review of all data and collaboration with the care team. (6 AM to 7:20 AM) Code Visit 9xxxx: [id number] Critical care first hour
--- NOTE | 2017-11-20 09:44 | CASEMGMT ---
RN CM Note: Intro role of CM to patient and family during ICU rounds. RN CM f/u after rounds. Explained that pt may need Skilled Care for medical monitoring and PT/OT on dc. Family requested TCU if possible. RN SCARLET discussed community options if TCU would not be available including having family go to facilities to help with decision making. Family states at home pt was very inactive, did not leave home much. Used walker at times. Families goal is that pt could be more active in leaving home when discharged. - JOSE GUADALUPE Knutson consulted and request to put name on TCU list. Juliann VILLALPANDON RN ACM
[2017-11-20] MEDS: Chlorhexidine 15 ML PO ×2 (10:17→21:24)
[2017-11-20] MEDS: Polyethylene Glycol 3350 17 GM PACKET GT ×2 (10:19→21:21)
[2017-11-20] MEDS: Senna/Docusate Sodium 1 Tablet 2 TABLET GT ×2 (10:19→21:21)
--- NOTE | 2017-11-20 11:03 | PCM.PROGNOTE ---
Patient Problems: Active and Suspected Problems Acute respiratory failure (Acute) Healthcare-associated pneumonia (Acute) Atrial flutter (Acute) Subjective: Chief complaint: Follow-up after admission for acute hypoxic and hypercapnic respiratory failure secondary to healthcare associated pneumonia, found to have atrial flutter with RVR. Patient seen and examined. No acute events overnight. But CPAP was increased to 10 because of hypoxia. She was able to answer couple of questions by head nodding. Denied chest pain. Denied abdominal pain. She is afebrile, blood pressure and heart rate stable, remains on mechanical medication. - Physical Exam General: Alert, Cooperative, No apparent distress, - - Intubated, sedated, spontaneous eye opening, response to minimal stimulus. HEENT: Atraumatic, PERRLA, EOMI, Normocephalic Oral: Moist Mucosa, No Gingival or Mucosal Lesions/ Ulcerations Neck: Supple, No JVD, Negative Carotid Bruits, Trachea Midline, Thyroid Normal Size and Texture Lungs: Clear to auscultation, No wheeze, No rales, Diminished, Rhonchi Cardiovascular: Regular rate, Normal S1, Normal S2, PMI Normal, Irregular Rate, Murmur Abdomen: Bowel Sounds Present, Soft, Non Tender, Non-Distended, No Hepato-splenomegaly, Obese Extremities: No clubbing, No cyanosis, Edema - Trace edema. Skin: No rashes, No breakdown Lymphatic: No Cervical, Supraclavicular, or Inguinal Adenopathy Neurological: Cranial nerves II-XII grossly intact, Motor Exam 5/5 strength throughout Psych/Mental Status: Normal Affect, Appropriate Vital Signs Temp Pulse Resp BP Pulse Ox 98.7 F 72 16 141/80 H 94 11/20/17 10:00 11/20/17 10:59 11/20/17 10:59 11/20/17 10:00 11/20/17 10:00 Oxygen Flow Rate (L/min) 40 Oxygen Delivery Method Mechanical Ventilator Weight: 357 lb 9.436 oz Body Mass Index (BMI) 58.2 Intake and Output for Last 24 Hours 11/18/17 11/19/17 11/20/17 23:59 23:59 23:59 Intake Total 1738 / 1738 4110.4 / 4110.4 519 / 519 Output Total 2250 / 2250 2075 / 2075 350 / 350 Balance -512 / -512 2035.4 / 2035.4 169 / 169 Microbiology Past 72 Hours 11/18/17 06:50 Urine Culture - Final Urine Catheter - Catheter Enterobacter cloacae complex Klebsiella pneumoniae sp pneum 11/18/17 06:50 Blood Culture - Preliminary Blood Culture (Wb) - Pic No growth in 48 hours. 11/18/17 01:50 Gram Stain - Final Sputum, Tracheal Aspirate 11/18/17 06:50 Legionella Antigen - Final Urine Catheter - Catheter 11/18/17 06:50 Streptococcus pneumoniae Antigen (M - Final Urine Catheter - Catheter Laboratory Tests Past 24 Hrs 11/19/17 11/20/17 11/20/17 18:20 04:15 04:15 WBC 4.6 RBC 4.60 Hgb 13.3 Hct 44.0 MCV 95.7 MCH 28.9 MCHC 30.2 L RDW 15.2 H RDW Differential 53.4 H Plt Count 116 L MPV 10.3 Immature Gran % (Auto) 0.200 Neut % (Auto) 62.4 Lymph % (Auto) 16.6 L [place] % (Auto) 17.1 H Eos % (Auto) 3.5 Baso % (Auto) 0.2 Absolute Neuts (auto) 2.9 Absolute Lymphs (auto) 0.76 L Total Counted Not Reportable Sodium 148 H Potassium 4.0 Chloride 109 H Carbon Dioxide 32.0 Anion Gap 7 BUN 30 H Creatinine 1.10 H Estim Creat Clear Calc 43.43 Est GFR (MDRD) Af Amer 63 Est GFR (MDRD) Non-Af 52 L BUN/Creatinine Ratio 27.3 H Glucose 132 H Calcium 8.2 L Vancomycin Trough 16.4 H POC Glucose 11/20/17 11/19/17 11/19/17 06:18 23:56 17:18 POC Glucose 135 H 114 H 113 H 11/19/17 11:27 POC Glucose 135 H Clinical Impression(s) from Imaging Studies Brain CT 11/17/17 16:30 IMPRESSION: 1. Chronic involutional changes of the brain. 2. Nasogastric and endotracheal tubes are noted. 3. There is no intracranial hemorrhage or evidence of acute infarct. The visualized paranasal sinuses appear within normal limits. Electronically Signed: Kevin Newsome MD at 16:52 EDT , Service support , Chest X-Ray 11/18/17 06:15 IMPRESSION: Bilateral infiltrates or edema and pleural effusions with worsening. Electronically Signed: Clarke Fragoso MD at 8:24 EDT , Service support , Medical Necessity - Tobacco Use Smoking Status: Former smoker - quit 1990 smoked x 10 years Assessment/Plan All Active Problems Acute respiratory failure (Acute) Healthcare-associated pneumonia (Acute) Atrial flutter (Acute) This is a 67 years old female patient admitted because of shortness of breath and chest pain, found to have healthcare associated pneumonia complicated by acute hypoxic and hypercarbic respiratory failure and she developed atrial flutter with RVR. #1 acute hypoxic and hypercapnic respiratory failure: Secondary to pneumonia and probable underlying obstructive sleep apnea. She remains on mechanical ventilation, CPAP needed to be increased this morning because of hypoxia. Hemodynamically stable. She is on IV antibiotics, tolerating tube feeds. Plan to continue same treatment. #2 healthcare associated pneumonia: She is on IV vancomycin and Rocephin. She has been afebrile, Hemodynamically stable, no leukocytosis. Sputum culture revealed possible Haemophilus, alphahemolytic organism, final is pending. Blood cultures pending. Urine culture revealed Enterobacter cloacae and Klebsiella pneumoniae, sensitivity reviewed. #3 new onset atrial flutter with RVR: Status post DC cardioversion. At this time, rate is controlled, blood pressure stable. She is not on any rate control medicine, she is on Xarelto for anticoagulation. 2D echocardiogram revealed ejection fraction of 55%, the findings reviewed. Plan to continue same treatment. #5 encephalopathy: Likely metabolic secondary to pneumonia and respiratory failure. She has no focal deficit on exam. CT scan brain showed no acute findings. #5 acute kidney injury: Secondary to infection. She has been on IV fluids, today's creatinine is 1.10, improving. #6 hypertension: Blood pressure stable, she is not on any antihypertensive medications at this time. #7 DVT prophylaxis: Subcu heparin. #8 GI prophylaxis: She is on IV Protonix drip. This note was generated with [employer] software. It may contain incorrect words, spelling, and punctuation that were not noted in checking the note before signing. Code Visit Inpatient E&M: 88055 Subs Hosp L2
--- NOTE | 2017-11-20 11:07 | PN_ITS ---
Patient Problems: Active and Suspected Problems Acute respiratory failure (Acute) Healthcare-associated pneumonia (Acute) Atrial flutter (Acute) Subjective: Chief complaint: Follow-up after admission for acute hypoxic and hypercapnic respiratory failure secondary to healthcare associated pneumonia, found to have atrial flutter with RVR. Patient seen and examined. No acute events overnight. But CPAP was increased to 10 because of hypoxia. She was able to answer couple of questions by head nodding. Denied chest pain. Denied abdominal pain. She is afebrile, blood pressure and heart rate stable, remains on mechanical medication. - Physical Exam General: Alert, Cooperative, No apparent distress, - - Intubated, sedated, spontaneous eye opening, response to minimal stimulus. HEENT: Atraumatic, PERRLA, EOMI, Normocephalic Oral: Moist Mucosa, No Gingival or Mucosal Lesions/ Ulcerations Neck: Supple, No JVD, Negative Carotid Bruits, Trachea Midline, Thyroid Normal Size and Texture Lungs: Clear to auscultation, No wheeze, No rales, Diminished, Rhonchi Cardiovascular: Regular rate, Normal S1, Normal S2, PMI Normal, Irregular Rate, Murmur Abdomen: Bowel Sounds Present, Soft, Non Tender, Non-Distended, No Hepato- splenomegaly, Obese Extremities: No clubbing, No cyanosis, Edema - Trace edema. Skin: No rashes, No breakdown Lymphatic: No Cervical, Supraclavicular, or Inguinal Adenopathy Neurological: Cranial nerves II-XII grossly intact, Motor Exam 5/5 strength throughout Psych/Mental Status: Normal Affect, Appropriate Vital Signs Temp Pulse Resp BP Pulse Ox 98.7 F 72 16 141/80 H 94 11/20/17 10:00 11/20/17 10:59 11/20/17 10:59 11/20/17 10:00 11/20/17 10:00 Oxygen Flow Rate (L/min) 40 Oxygen Delivery Method Mechanical Ventilator Weight: 357 lb 9.436 oz Body Mass Index (BMI) 58.2 Intake and Output for Last 24 Hours 11/18/17 11/19/17 11/20/17 23:59 23:59 23:59 Intake Total 1738 / 1738 4110.4 / 4110.4 519 / 519 Output Total 2250 / 2250 2075 / 2075 350 / 350 Balance -512 / -512 2035.4 / 2035.4 169 / 169 Microbiology Past 72 Hours 11/18/17 06:50 Urine Culture - Final Urine Catheter - Catheter Enterobacter cloacae complex Klebsiella pneumoniae sp pneum 11/18/17 06:50 Blood Culture - Preliminary Blood Culture (Wb) - Pic No growth in 48 hours. 11/18/17 01:50 Gram Stain - Final Sputum, Tracheal Aspirate 11/18/17 06:50 Legionella Antigen - Final Urine Catheter - Catheter 11/18/17 06:50 Streptococcus pneumoniae Antigen (M - Final Urine Catheter - Catheter Laboratory Tests Past 24 Hrs 11/19/17 11/20/17 11/20/17 18:20 04:15 04:15 WBC 4.6 RBC 4.60 Hgb 13.3 Hct 44.0 MCV 95.7 MCH 28.9 MCHC 30.2 L RDW 15.2 H RDW Differential 53.4 H Plt Count 116 L MPV 10.3 Immature Gran % (Auto) 0.200 Neut % (Auto) 62.4 Lymph % (Auto) 16.6 L [place] % (Auto) 17.1 H Eos % (Auto) 3.5 Baso % (Auto) 0.2 Absolute Neuts (auto) 2.9 Absolute Lymphs (auto) 0.76 L Total Counted Not Reportable Sodium 148 H Potassium 4.0 Chloride 109 H Carbon Dioxide 32.0 Anion Gap 7 BUN 30 H Creatinine 1.10 H Estim Creat Clear Calc 43.43 Est GFR (MDRD) Af Amer 63 Est GFR (MDRD) Non-Af 52 L BUN/Creatinine Ratio 27.3 H Glucose 132 H Calcium 8.2 L Vancomycin Trough 16.4 H POC Glucose 11/20/17 11/19/17 11/19/17 06:18 23:56 17:18 POC Glucose 135 H 114 H 113 H 11/19/17 11:27 POC Glucose 135 H Clinical Impression(s) from Imaging Studies Brain CT 11/17/17 16:30 IMPRESSION: 1. Chronic involutional changes of the brain. 2. Nasogastric and endotracheal tubes are noted. 3. There is no intracranial hemorrhage or evidence of acute infarct. The visualized paranasal sinuses appear within normal limits. Electronically Signed: Kevin Newsome MD at 16:52 EDT , Service support , Chest X-Ray 11/18/17 06:15 IMPRESSION: Bilateral infiltrates or edema and pleural effusions with worsening. Electronically Signed: Clarke Fragoso MD at 8:24 EDT , Service support , Medical Necessity - Tobacco Use Smoking Status: Former smoker - quit 1990 smoked x 10 years Assessment/Plan All Active Problems Acute respiratory failure (Acute) Healthcare-associated pneumonia (Acute) Atrial flutter (Acute) This is a 67 years old female patient admitted because of shortness of breath and chest pain, found to have healthcare associated pneumonia complicated by acute hypoxic and hypercarbic respiratory failure and she developed atrial flutter with RVR. #1 acute hypoxic and hypercapnic respiratory failure: Secondary to pneumonia and probable underlying obstructive sleep apnea. She remains on mechanical ventilation, CPAP needed to be increased this morning because of hypoxia. Hemodynamically stable. She is on IV antibiotics, tolerating tube feeds. Plan to continue same treatment. #2 healthcare associated pneumonia: She is on IV vancomycin and Rocephin. She has been afebrile, Hemodynamically stable, no leukocytosis. Sputum culture revealed possible Haemophilus, alphahemolytic organism, final is pending. Blood cultures pending. Urine culture revealed Enterobacter cloacae and Klebsiella pneumoniae, sensitivity reviewed. #3 new onset atrial flutter with RVR: Status post DC cardioversion. At this time, rate is controlled, blood pressure stable. She is not on any rate control medicine, she is on Xarelto for anticoagulation. 2D echocardiogram revealed ejection fraction of 55%, the findings reviewed. Plan to continue same treatment. #5 encephalopathy: Likely metabolic secondary to pneumonia and respiratory failure. She has no focal deficit on exam. CT scan brain showed no acute findings. #5 acute kidney injury: Secondary to infection. She has been on IV fluids, today's creatinine is 1.10, improving. #6 hypertension: Blood pressure stable, she is not on any antihypertensive medications at this time. #7 DVT prophylaxis: Subcu heparin. #8 GI prophylaxis: She is on IV Protonix drip. This note was generated with [employer] software. It may contain incorrect words, spelling, and punctuation that were not noted in checking the note before signing. Code Visit Inpatient E&M: 64315 Subs Hosp L2
[2017-11-20] MEDS: Ceftriaxone 1 GM/50 ML BAG IV (12:16)
[2017-11-20 12:26] LABS: Bedside Glucose 109 mg/dL (70-110)
[2017-11-20] MEDS: Magnesium Citrate 300 ML 150 ML PO (15:32)
--- NOTE | 2017-11-20 15:57 | EKG12_ITS ---
Test Reason : CP Blood Pressure : / mmHG Vent. Rate : 075 BPM Atrial Rate : 075 BPM P-R Int : 000 ms QRS Dur : 172 ms QT Int : 424 ms P-R-T Axes : 042 -81 007 degrees QTc Int : 473 ms Ectopic atrial vs junctional rhythm with PACs in a pattern of atrial bigeminy Right bundle branch block Left anterior fascicular block Bifascicular block Abnormal ECG Confirmed by CY WALKER, LEE ([id number]), news editor JERRICA HUITRON ([id number]) on 11/24/2017 2:35:15 PM Referred By: ANAT Confirmed By:LEE BENOIT MD
--- NOTE | 2017-11-20 17:24 | PCM.PN.CARD ---
Subjectve: The patient remains mechanically intubated/ventilated. Objective: Vital Signs Temp Pulse Resp BP Pulse Ox 97.9 F 70 16 119/44 L 93 11/20/17 16:00 11/20/17 17:00 11/20/17 17:00 11/20/17 17:00 11/20/17 17:00 Oxygen Flow Rate (L/min) 40 Oxygen Delivery Method Mechanical Ventilator Weight: 357 lb 9.436 oz Body Mass Index (BMI) 58.2 Intake and Output for Last 24 Hours 11/18/17 11/19/17 11/20/17 23:59 23:59 23:59 Intake Total 1738 / 1738 4110.4 / 4110.4 1455 / 1455 Output Total 2250 / 2250 2075 / 2075 650 / 650 Balance -512 / -512 2035.4 / 2035.4 805 / 805 General: Obese Lungs: - - Scattered upper airway sounds Cardiovascular: Regular Rhythm, Premature Ectopic Beats, Normal S1, Normal S2 - Distant heart tones Abdomen: Bowel Sounds Present, Soft, Non Tender, Obese Extremities: Mild RLE Edema, Mild LLE Edema 11/20/17 04:15: WBC 4.6, RBC 4.60, Hgb 13.3, Hct 44.0, MCV 95.7, MCH 28.9, MCHC 30.2 L, RDW 15.2 H, RDW Differential 53.4 H, Plt Count 116 L, MPV 10.3, Immature Gran % (Auto) 0.200, Neut % (Auto) 62.4, Lymph % (Auto) 16.6 L, [place] % (Auto) 17.1 H, Eos % (Auto) 3.5, Baso % (Auto) 0.2, Absolute Neuts (auto) 2.9, Total Counted Not Reportable 11/20/17 04:15: Sodium 148 H, Potassium 4.0, Chloride 109 H, Carbon Dioxide 32.0, Anion Gap 7, BUN 30 H, Creatinine 1.10 H, Est GFR (MDRD) Af Amer 63, Est GFR (MDRD) Non-Af 52 L, BUN/Creatinine Ratio 27.3 H, Glucose 132 H, Calcium 8.2 L Rhythm: Sinus rhythm; PACs; atrial bigeminy Medical Necessity - Tobacco Use Smoking Status: Former smoker - quit 1989 smoked x 10 years Tobacco Use: Cigarettes Assessment/Plan 1. Atrial flutter with rapid ventricular response The patient has undergone noninvasive evaluation. She has undergone synchronized biphasic DC cardioversion. She did regain sinus rhythm. She continues with a sinus bradycardia with PACs and intermittent atrial bigeminy. She has not required continued rate limiting therapy. She will continue anticoagulant therapy at this time. 2. Cardiomyopathy Based upon her noninvasive studies she does have diminished LV systolic function as well as right ventricular enlargement and diminished RV systolic function. She did undergo reevaluation with a transthoracic echocardiogram. Her overall LV systolic function appears to be preserved with an estimated LVEF of 55%, however, her right ventricle continues to be dilated and dysfunctional. Her estimated RV systolic pressure was approximately 35 mmHg. It appears, when she undergoes diuresis, and diminishes her RV preload, that she does become hypotensive and her creatinine level increases. When she receives IV volume, her RV preload increases, her blood pressure improves as well as her creatinine level. This does make it challenging with respect to attempting to diurese the patient if needed to improve her underlying pulmonary process, etc. 3. Hypertension Her blood pressures have waxed and waned during her clinical changes and her medication changes. Her lower blood pressures to make it challenging to continue medications such as diuretics, afterload reducing agents, etc. without the need for IV vasopressor support. 4. Acute renal insufficiency As noted above, when the patient receives no diuretics and increased volume her creatinine levels improved. 5. GERD She states she has a history of GERD. She states she cannot tolerate aspirin because it upsets my stomach . She is unclear whether she ever took coated aspirin and whether that would bother her in any negative way. 6. Obesity The patient is morbidly obese. This may be contributing to her diagnosis, symptoms, etc. This can make it challenging with respect to further diagnostic studies, etc. Her and sister state that they have attempted over the years to get her to improve her diet and her activity levels to bring her weight under control. However they state that she basically does nothing but eats, sit, and watch television. 7. Lethargy/obtundation The etiology is unclear. There are concerns this may have been related to an ongoing pulmonary process. She is undergone additional evaluation for any acute EMERGENCY MEDICINE NURSE PRACTITIONER process was a brain CT scan which was negative for any obvious embolic event or hemorrhagic event. The present time she continues in the ICU with the need for mechanical intubation/ventilation. She has made minor improvement with respect to her pulmonary settings. Comment: The above was discussed with the ICU staff. This note was generated with [employer] dictation software. It may contain incorrect words, spelling, and punctuation that were not noted in checking the note before signing.
--- NOTE | 2017-11-20 17:27 | PN.CARD_ITS ---
Subjectve: The patient remains mechanically intubated/ventilated. Objective: Vital Signs Temp Pulse Resp BP Pulse Ox 97.9 F 70 16 119/44 L 93 11/20/17 16:00 11/20/17 17:00 11/20/17 17:00 11/20/17 17:00 11/20/17 17:00 Oxygen Flow Rate (L/min) 40 Oxygen Delivery Method Mechanical Ventilator Weight: 357 lb 9.436 oz Body Mass Index (BMI) 58.2 Intake and Output for Last 24 Hours 11/18/17 11/19/17 11/20/17 23:59 23:59 23:59 Intake Total 1738 / 1738 4110.4 / 4110.4 1455 / 1455 Output Total 2250 / 2250 2075 / 2075 650 / 650 Balance -512 / -512 2035.4 / 2035.4 805 / 805 General: Obese Lungs: - - Scattered upper airway sounds Cardiovascular: Regular Rhythm, Premature Ectopic Beats, Normal S1, Normal S2 - Distant heart tones Abdomen: Bowel Sounds Present, Soft, Non Tender, Obese Extremities: Mild RLE Edema, Mild LLE Edema 11/20/17 04:15: WBC 4.6, RBC 4.60, Hgb 13.3, Hct 44.0, MCV 95.7, MCH 28.9, MCHC 30.2 L, RDW 15.2 H, RDW Differential 53.4 H, Plt Count 116 L, MPV 10.3, Immature Gran % (Auto) 0.200, Neut % (Auto) 62.4, Lymph % (Auto) 16.6 L, [place] % (Auto) 17.1 H, Eos % (Auto) 3.5, Baso % (Auto) 0.2, Absolute Neuts (auto) 2.9, Total Counted Not Reportable 11/20/17 04:15: Sodium 148 H, Potassium 4.0, Chloride 109 H, Carbon Dioxide 32.0 , Anion Gap 7, BUN 30 H, Creatinine 1.10 H, Est GFR (MDRD) Af Amer 63, Est GFR ( MDRD) Non-Af 52 L, BUN/Creatinine Ratio 27.3 H, Glucose 132 H, Calcium 8.2 L Rhythm: Sinus rhythm; PACs; atrial bigeminy Medical Necessity - Tobacco Use Smoking Status: Former smoker - quit 1989 smoked x 10 years Tobacco Use: Cigarettes Assessment/Plan 1. Atrial flutter with rapid ventricular response The patient has undergone noninvasive evaluation. She has undergone synchronized biphasic DC cardioversion. She did regain sinus rhythm. She continues with a sinus bradycardia with PACs and intermittent atrial bigeminy. She has not required continued rate limiting therapy. She will continue anticoagulant therapy at this time. 2. Cardiomyopathy Based upon her noninvasive studies she does have diminished LV systolic function as well as right ventricular enlargement and diminished RV systolic function. She did undergo reevaluation with a transthoracic echocardiogram. Her overall LV systolic function appears to be preserved with an estimated LVEF of 55%, however, her right ventricle continues to be dilated and dysfunctional. Her estimated RV systolic pressure was approximately 35 mmHg. It appears, when she undergoes diuresis, and diminishes her RV preload, that she does become hypotensive and her creatinine level increases. When she receives IV volume, her RV preload increases, her blood pressure improves as well as her creatinine level. This does make it challenging with respect to attempting to diurese the patient if needed to improve her underlying pulmonary process, etc. 3. Hypertension Her blood pressures have waxed and waned during her clinical changes and her medication changes. Her lower blood pressures to make it challenging to continue medications such as diuretics, afterload reducing agents, etc. without the need for IV vasopressor support. 4. Acute renal insufficiency As noted above, when the patient receives no diuretics and increased volume her creatinine levels improved. 5. GERD She states she has a history of GERD. She states she cannot tolerate aspirin because it upsets my stomach . She is unclear whether she ever took coated aspirin and whether that would bother her in any negative way. 6. Obesity The patient is morbidly obese. This may be contributing to her diagnosis, symptoms, etc. This can make it challenging with respect to further diagnostic studies, etc. Her and sister state that they have attempted over the years to get her to improve her diet and her activity levels to bring her weight under control. However they state that she basically does nothing but eats, sit, and watch television. 7. Lethargy/obtundation The etiology is unclear. There are concerns this may have been related to an ongoing pulmonary process. She is undergone additional evaluation for any acute MACHINE STEMMER process was a brain CT scan which was negative for any obvious embolic event or hemorrhagic event. The present time she continues in the ICU with the need for mechanical intubation/ventilation. She has made minor improvement with respect to her pulmonary settings. Comment: The above was discussed with the ICU staff. This note was generated with [employer] dictation software. It may contain incorrect words, spelling, and punctuation that were not noted in checking the note before signing.
[2017-11-20] MEDS: Rivaroxaban 20 MG Tablet GT (17:28)
--- NOTE | 2017-11-20 17:30 | CASEMGMT ---
Social Work Per RN,CM Pt family requesting that pt go to TCU upon d/c. Phone call to TCU and name placed on list. SW will follow up. Plan: TCU pending acceptance. JASEN Maldonado
[2017-11-20 18:01] LABS: Bedside Glucose 112 mg/dL (70-110)
[2017-11-20] MEDS: Magnesium Citrate 300 ML 150 ML GT (21:20)
[2017-11-21] VITALS (50 sets, daily range): BP systolic 98–155; BP diastolic 41–111; PULSE 64–146; RESP 10–22; TEMP 35.8–37.1; O2SAT 88–98
[2017-11-21 00:15] LABS: Bedside Glucose 98 mg/dL (70-110)
[2017-11-21] MEDS: Ipratropium/Albuterol Sulfate 3 ML AMPUL.NEB INHALATION ×4 (03:52→23:25)
[2017-11-21] MEDS: CHLORHEXIDINE GLUC 2% CLOTH 1 EACH TOWELETTE TOPICAL (04:09)
[2017-11-21] MEDS: 0.9% NaCl PICC Flush IV ×2 (04:09→05:22)
[2017-11-21 04:21] LABS: Absolute Lymphocyte Count 1.25 X10^3/ul (0.83-4.51); Basophil# 0.01 X10^3/uL; Basophil% 0.2 % (0-1); Eosinophil# 0.23 X10^3/uL; Eosinophils% 5.1 % (0-5); Hemoglobin 13.8 g/dl (12.0-15.0); Lymphocyte # 1.25 X10^3/ul (4.0); Lymphocyte % 27.8 % (19-41); Mean Corp Hgb Conc 31.4 g/gl (32-36); Mean Corpuscular Volume 95.7 fL (81-99); Mean Platelet Vol. 9.9 fl (6.2-12.0); Monocyte# 0.98 X10^3/uL; Monocyte% 21.8 % (0-10); Neutrophil # 2.01 X10^3/uL (2.7-7.7); Neutrophil % 44.9 % (47-70); POSITIVE COUNT NO; POSITIVE DIFFERENTIAL NO; POSITIVE MORPHOLOGY NO; Platelet Count 112 K/mm3 (150-450); RBC Distribution Width CV 15.2 % (11.6-14.6); RBC Distribution Width SD 52.6 fl (35.1-43.9); White Blood Count 4.5 K/mm3 (4.4-11.0)
[2017-11-21 04:33] LABS: Anion Gap 6 (5-15); BUN 26 mg/dL (7-18); BUN/Creat Ratio 26.8 RATIO (10-20); Calcium,Total 8.4 mg/dL (8.5-10.1); Chloride 107 mmol/L (98-107); Creatinine, Serum 0.97 mg/dL (0.55-1.02); EST Glomerular Filtration Rate 61 mL/min (>60); Est Glom Filt Rate - Afr Amer 73 mL/min (>60); Estimated Creatinine Clearance 49.25 ml/min; Glucose 107 mg/dL (74-106); Potassium 4.4 mmol/L (3.5-5.1); Sodium Level 147 mmol/L (136-145)
[2017-11-21] MEDS: Ondansetron 4 MG/2 ML Vial IV (05:22)
[2017-11-21 06:45] LABS: Allen Test POS; Base Excess 7 mmol/L (-2 to +2); Bicarbonate 32.3 mmol/L (22-26); Blood Gas Specimen Type ART; FI02 40; Mode CPAP PS; O2 Delivery Device Vent; PEEP 6; PO2 68 mmHG (75-100); PS 5; SITE R Brachial; SO2 92 % (95-99); Time Given 644; Total Carbon Dioxide 34 mmol/L; pCO2 58.6 mmHg (35-45); pH 7.35 (7.35-7.45)
--- NOTE | 2017-11-21 07:44 | PN_ITS ---
Subjective: Patient did well overnight. Patient did have an aggressive bowel regimen initiated yesterday and had 3 bowel movements overnight. Patient was able to be weaned to 5 of PEEP and had a spontaneous breathing trial this morning. Patient tolerated 1 hour without issue and an ABG showed adequate oxygenation ventilation at the end of the trial. Patient was liberated from the ventilator under my direct supervision without complications. After extubation, patient did report some hoarseness, but no dyspnea reported. Patient does not feel that her abdomen is significantly distended, but states she does not feel hungry at this time either. Objective: EKGs performed yesterday show a flutter with right bundle branch block. No RVR has been described. General: Alert, Oriented x3, Cooperative, No apparent distress, - - Morbidly obese. Hoarse voice noted. HEENT: Atraumatic, PERRLA, EOMI, Normocephalic, - - No scleral icterus or injection noted. Oral: Moist Mucosa, No Gingival or Mucosal Lesions/ Ulcerations Neck: Supple, No JVD, No Nodes, Trachea Midline Lungs: No rhonchi, No wheeze, No rales, Diminished, - - Symmetric expansion. Cardiovascular: Normal S1, Normal S2, No murmurs, Irregular Rate, No rub noted, No Gallop Abdomen: Bowel Sounds Present, Soft, Non Tender, Non-Distended, Obese Extremities: No clubbing, No cyanosis, Capillary Refill Less than 3 Seconds, Edema - 1-2+ Skin: No rashes, No breakdown Musculoskeletal: No Tenderness to Palpation of Joints or Extremities Lymphatic: No Cervical, Supraclavicular, or Inguinal Adenopathy Neurological: Cranial nerves II-XII grossly intact, Neuro grossly intact, Motor Exam 5/5 strength throughout Psych/Mental Status: Alert and oriented to time, place, person, mood and affect Vital Signs Temp Pulse Resp BP Pulse Ox 35.8 C L 81 16 139/97 H 97 11/21/17 04:00 11/21/17 06:50 11/21/17 06:50 11/21/17 06:00 11/21/17 06:50 Oxygen Flow Rate (L/min) 4 Oxygen Delivery Method Nasal Cannula Weight: 164 kg Body Mass Index (BMI) 58.2 Intake and Output for Last 24 Hours 11/19/17 11/20/17 11/21/17 23:59 23:59 23:59 Intake Total 4110.4 / 4110.4 2668 / 2668 563 / 563 Output Total 5 / 2075 1225 / 1225 300 / 300 Balance 2035.4 / 2035.4 1443 / 1443 263 / 263 Labs (Last 48 Hours) 11/19/17 11/19/17 11/19/17 11:27 17:18 18:20 WBC RBC Hgb Hct MCV MCH MCHC RDW RDW Differential Plt Count MPV Immature Gran % (Auto) Neut % (Auto) Lymph % (Auto) Johnson % (Auto) Eos % (Auto) Baso % (Auto) Absolute Neuts (auto) Absolute Lymphs (auto) Total Counted Specimen Type Sample Site pH Bicarbonate Actual POC Total CO2 Base Excess O2 Saturation O2 % ABG pCO2 ABG pO2 Andrew Test O2 Delivery Device Vent Mode POC PEEP POC Pressure Suppt Blood Gas Notified Whom Blood Gas Notified Time Sodium Potassium Chloride Carbon Dioxide Anion Gap BUN Creatinine Estim Creat Clear Calc Est GFR (MDRD) Af Amer Est GFR (MDRD) Non-Af BUN/Creatinine Ratio Glucose Calcium Vancomycin Trough 16.4 H POC Glucose 135 H 113 H 11/19/17 11/20/17 11/20/17 23:56 04:15 04:15 WBC 4.6 RBC 4.60 Hgb 13.3 Hct 44.0 MCV 95.7 MCH 28.9 MCHC 30.2 L RDW 15.2 H RDW Differential 53.4 H Plt Count 116 L MPV 10.3 Immature Gran % (Auto) 0.200 Neut % (Auto) 62.4 Lymph % (Auto) 16.6 L Johnson % (Auto) 17.1 H Eos % (Auto) 3.5 Baso % (Auto) 0.2 Absolute Neuts (auto) 2.9 Absolute Lymphs (auto) 0.76 L Total Counted Not Reportable Specimen Type Sample Site pH Bicarbonate Actual POC Total CO2 Base Excess O2 Saturation O2 % ABG pCO2 ABG pO2 Andrew Test O2 Delivery Device Vent Mode POC PEEP POC Pressure Suppt Blood Gas Notified Whom Blood Gas Notified Time Sodium 148 H Potassium 4.0 Chloride 109 H Carbon Dioxide 32.0 Anion Gap 7 BUN 30 H Creatinine 1.10 H Estim Creat Clear Calc 43.43 Est GFR (MDRD) Af Amer 63 Est GFR (MDRD) Non-Af 52 L BUN/Creatinine Ratio 27.3 H Glucose 132 H Calcium 8.2 L Vancomycin Trough POC Glucose 114 H 11/20/17 11/20/17 11/20/17 06:18 12:15 17:25 WBC RBC Hgb Hct MCV MCH MCHC RDW RDW Differential Plt Count MPV Immature Gran % (Auto) Neut % (Auto) Lymph % (Auto) Johnson % (Auto) Eos % (Auto) Baso % (Auto) Absolute Neuts (auto) Absolute Lymphs (auto) Total Counted Specimen Type Sample Site pH Bicarbonate Actual POC Total CO2 Base Excess O2 Saturation O2 % ABG pCO2 ABG pO2 Andrew Test O2 Delivery Device Vent Mode POC PEEP POC Pressure Suppt Blood Gas Notified Whom Blood Gas Notified Time Sodium Potassium Chloride Carbon Dioxide Anion Gap BUN Creatinine Estim Creat Clear Calc Est GFR (MDRD) Af Amer Est GFR (MDRD) Non-Af BUN/Creatinine Ratio Glucose Calcium Vancomycin Trough POC Glucose 135 H 109 112 H 11/21/17 11/21/17 11/21/17 00:08 04:10 04:10 WBC 4.5 RBC 4.60 Hgb 13.8 Hct 44.0 MCV 95.7 MCH 30.0 MCHC 31.4 L RDW 15.2 H RDW Differential 52.6 H Plt Count 112 L MPV 9.9 Immature Gran % (Auto) 0.200 Neut % (Auto) 44.9 L Lymph % (Auto) 27.8 Johnson % (Auto) 21.8 H Eos % (Auto) 5.1 H Baso % (Auto) 0.2 Absolute Neuts (auto) 2.0 Absolute Lymphs (auto) 1.25 Total Counted Not Reportable Specimen Type Sample Site pH Bicarbonate Actual POC Total CO2 Base Excess O2 Saturation O2 % ABG pCO2 ABG pO2 Andrew Test O2 Delivery Device Vent Mode POC PEEP POC Pressure Suppt Blood Gas Notified Whom Blood Gas Notified Time Sodium 147 H Potassium 4.4 Chloride 107 Carbon Dioxide 34.0 H Anion Gap 6 BUN 26 H Creatinine 0.97 Estim Creat Clear Calc 49.25 Est GFR (MDRD) Af Amer 73 Est GFR (MDRD) Non-Af 61 BUN/Creatinine Ratio 26.8 H Glucose 107 H Calcium 8.4 L Vancomycin Trough POC Glucose 98 11/21/17 06:41 WBC RBC Hgb Hct MCV MCH MCHC RDW RDW Differential Plt Count MPV Immature Gran % (Auto) Neut % (Auto) Lymph % (Auto) Johnson % (Auto) Eos % (Auto) Baso % (Auto) Absolute Neuts (auto) Absolute Lymphs (auto) Total Counted Specimen Type ART Sample Site R Brachial pH 7.35 Bicarbonate Actual 32.3 H POC Total CO2 34 Base Excess 7 H O2 Saturation 92 L O2 % 40 ABG pCO2 58.6 H ABG pO2 68 L Andrew Test POS O2 Delivery Device Vent Vent Mode CPAP PS POC PEEP 6 POC Pressure Suppt 5 Blood Gas Notified Whom ICU MD Blood Gas Notified Time 644 Sodium Potassium Chloride Carbon Dioxide Anion Gap BUN Creatinine Estim Creat Clear Calc Est GFR (MDRD) Af Amer Est GFR (MDRD) Non-Af BUN/Creatinine Ratio Glucose Calcium Vancomycin Trough POC Glucose Microbiology 11/18/17 01:50 Sputum, Tracheal Aspirate Gram Stain - Final 11/18/17 01:50 Sputum, Tracheal Aspirate Respiratory Culture - Preliminary Haemophilus influenzae Alpha hemolytic organism 11/18/17 06:50 Urine Catheter - Catheter Urine Culture - Final Enterobacter cloacae complex Klebsiella pneumoniae sp pneum 11/18/17 06:50 Blood Culture (Wb) - Pic Blood Culture - Preliminary No growth in 48 hours. Medical Necessity - Tobacco Use Smoking Status: Former smoker - quit 1990 smoked x 10 years Tobacco Use: Cigarettes Assessment/Plan All Active Problems Acute respiratory failure (Acute) Healthcare-associated pneumonia (Acute) Atrial flutter (Acute) RECOMMENDATIONS: 1. Wean oxygen as tolerated 2. Transitioned to ceftriaxone 3. Initiate p.o. diet following bedside swallow eval. 4. Increase activity as tolerated 5. Continue Xarelto 6. Continue Protonix for GI prophylaxis IMPRESSIONS: 1. Acute hypoxemic and hypercarbic respiratory failure secondary to healthcare associated pneumonia/pulmonary edema Patient successfully liberated from the ventilator earlier this morning. Appears to be doing well. Patient has grown Enterobacter and Klebsiella pneumonia from the urine and Haemophilus influenza from the sputum. Patient has been transitioned to ceftriaxone therapy. Continue with aerosol therapy. 2. Encephalopathy As noted above, etiology for the patient's encephalopathy was likely secondary to hypercarbia. However, the exact reason for her acute hypercapnia remains a bit unclear. Patient appears to be mentating well. ABG shows adequate ventilation 3. Atrial flutter with rapid ventricular response/underlying cardiomyopathy Continue current medical management per cardiology recommendations. Right bundle branch with a flutter noted on ECG. Patient is rate controlled and on anticoagulation. 4. Suspected sleep disordered breathing The patient undoubtedly needs to be followed up as an outpatient to undergo a formal diagnostic polysomnogram. Patient may be initiated on BiPAP therapy with sleep if desaturations are noted. 5. Acute kidney injury RESOLVED > urine output has remained appropriate. Patient did respond well to discontinuation of TOÑA inhibitor and diuretic therapy. No indication for renal replacement therapy at this time. 6. Super morbid obesity/GERD/hypertension Complicates care, management, recovery and prognosis. Hold antihypertensives at this time. Addendum 8:46 AM: Approach by nursing secondary to change in rhythm. EKG was obtained with an SVT of approximately 126 bpm. Patient was then given 6 and 12 mg of adenosine respectively that was notable for recurrence of a flutter. Patient tolerated the procedure well. Cardiology has been notified of the update. Addendum 11:35 AM: Did discuss with cardiology about patient's a flutter. It was decided that patient would benefit from cardioversion. At approximately 10 AM, the patient was given 4 mg of etomidate. Patient received a total of 6 mg of etomidate throughout the procedure. Patient did receive a 50 J and 200 J synchronized cardioversion by Dr. Hernandez. This was successful in achieving normal sinus rhythm, but patient decompensated back into a flutter approximately 20 minutes later. TIME: 65 minutes of critical care time was spent addressing the patient's acute hypoxemic and hypercarbic respiratory failure, suspected sleep disordered breathing, acute kidney injury, review of all data and collaboration with the care team. (5:30 AM to 7:30 AM, 830 to 8:50 AM) Code Visit [id number]: [id number] Critical care first hour
[2017-11-21] MEDS: Adenosine 6 MG/2 ML Syringe IV (08:00)
--- NOTE | 2017-11-21 08:05 | PN_ITS ---
Patient Problems: Active and Suspected Problems Acute respiratory failure (Acute) Healthcare-associated pneumonia (Acute) Atrial flutter (Acute) Subjective: Chief complaint: Follow-up after admission for acute hypoxic and hypercapnic respiratory failure secondary to healthcare associated pneumonia and also found to have atrial flutter with RVR. Patient seen and examined. No acute events overnight. She was extubated this morning. At this time, she is on 4 L of oxygen and pulse ox is 97%. Her vital signs are stable. She denies any chest pain or shortness of breath. She is awake and alert. - Physical Exam General: Alert, Cooperative, No apparent distress HEENT: Atraumatic, PERRLA, EOMI, Normocephalic Oral: Moist Mucosa, No Gingival or Mucosal Lesions/ Ulcerations Neck: Supple, No JVD, Negative Carotid Bruits, Trachea Midline, Thyroid Normal Size and Texture Lungs: Clear to auscultation, No wheeze, No rales, Diminished, Rhonchi Cardiovascular: Normal S1, Normal S2, PMI Normal, Irregular Rate Abdomen: Bowel Sounds Present, Soft, Non Tender, Non-Distended, No Hepato- splenomegaly, Obese Extremities: No clubbing, No cyanosis, Edema - Trace edema. Skin: No rashes, No breakdown Lymphatic: No Cervical, Supraclavicular, or Inguinal Adenopathy Neurological: Cranial nerves II-XII grossly intact, Motor Exam 5/5 strength throughout Psych/Mental Status: Normal Affect, Appropriate Vital Signs Temp Pulse Resp BP Pulse Ox 96.5 F L 81 16 139/97 H 97 11/21/17 04:00 11/21/17 06:50 11/21/17 06:50 11/21/17 06:00 11/21/17 06:50 Oxygen Flow Rate (L/min) 4 Oxygen Delivery Method Nasal Cannula Weight: 361 lb 8.929 oz Body Mass Index (BMI) 58.2 Intake and Output for Last 24 Hours 11/19/17 11/20/17 11/21/17 23:59 23:59 23:59 Intake Total 4110.4 / 4110.4 2668 / 2668 563 / 563 Output Total 2075 / 2075 1225 / 1225 300 / 300 Balance 2035.4 / 2035.4 1443 / 1443 263 / 263 Microbiology Past 72 Hours 11/18/17 01:50 Gram Stain - Final Sputum, Tracheal Aspirate Respiratory Culture - Preliminary Haemophilus influenzae Alpha hemolytic organism 11/18/17 06:50 Urine Culture - Final Urine Catheter - Catheter Enterobacter cloacae complex Klebsiella pneumoniae sp pneum 11/18/17 06:50 Blood Culture - Preliminary Blood Culture (Wb) - Pic No growth in 48 hours. 11/18/17 06:50 Legionella Antigen - Final Urine Catheter - Catheter 11/18/17 06:50 Streptococcus pneumoniae Antigen (M - Final Urine Catheter - Catheter Laboratory Tests Past 24 Hrs 11/21/17 11/21/17 11/21/17 04:10 04:10 06:41 WBC 4.5 RBC 4.60 Hgb 13.8 Hct 44.0 MCV 95.7 MCH 30.0 MCHC 31.4 L RDW 15.2 H RDW Differential 52.6 H Plt Count 112 L MPV 9.9 Immature Gran % (Auto) 0.200 Neut % (Auto) 44.9 L Lymph % (Auto) 27.8 Nelson % (Auto) 21.8 H Eos % (Auto) 5.1 H Baso % (Auto) 0.2 Absolute Neuts (auto) 2.0 Absolute Lymphs (auto) 1.25 Total Counted Not Reportable Specimen Type ART Sample Site R Brachial pH 7.35 Bicarbonate Actual 32.3 H POC Total CO2 34 Base Excess 7 H O2 Saturation 92 L O2 % 40 ABG pCO2 58.6 H ABG pO2 68 L Andrew Test POS O2 Delivery Device Vent Vent Mode CPAP PS POC PEEP 6 POC Pressure Suppt 5 Blood Gas Notified Whom ICU Blood Gas Notified Time 644 Sodium 147 H Potassium 4.4 Chloride 107 Carbon Dioxide 34.0 H Anion Gap 6 BUN 26 H Creatinine 0.97 Estim Creat Clear Calc 49.25 Est GFR (MDRD) Af Amer 73 Est GFR (MDRD) Non-Af 61 BUN/Creatinine Ratio 26.8 H Glucose 107 H Calcium 8.4 L POC Glucose 11/21/17 11/20/17 11/20/17 00:08 17:25 12:15 POC Glucose 98 112 H 109 Medical Necessity - Tobacco Use Smoking Status: Former smoker - quit 1989 smoked x 10 years Tobacco Use: Cigarettes Assessment/Plan All Active Problems Acute respiratory failure (Acute) Healthcare-associated pneumonia (Acute) Atrial flutter (Acute) This is a 67 years old female patient admitted because of shortness of breath and chest pain, found to have healthcare associated pneumonia complicated by acute hypoxic and hypercarbic respiratory failure and she developed atrial flutter with RVR. #1 acute hypoxic and hypercapnic respiratory failure: Status post extubation this morning. At this time, she is maintaining her pulse ox on 4 L of oxygen. It is secondary to pneumonia and probable underlying obstructive sleep apnea. Hemodynamically stable. #2 healthcare associated pneumonia: She is on IV Rocephin. IV vancomycin discontinued. She has been afebrile, Hemodynamically stable, no leukocytosis. Sputum culture revealed possible Haemophilus, alphahemolytic organism, final is pending. Blood cultures showed no growth in 48 hours. Urine culture revealed Enterobacter cloacae and Klebsiella pneumoniae, sensitivity reviewed. Plan to continue same treatment. #3 new onset atrial flutter with RVR: Status post DC cardioversion. At this time, rate is controlled, blood pressure stable. She is not on any rate control medicine, she is on Xarelto for anticoagulation. 2D echocardiogram revealed ejection fraction of 55%, the findings reviewed. Plan to continue same treatment. #5 encephalopathy: Likely metabolic secondary to pneumonia and respiratory failure. She has no focal deficit on exam. CT scan brain showed no acute findings. Today, she is alert and awake, moving all limbs. #5 acute kidney injury: Secondary to infection. She has been on IV fluids, today's creatinine is 0.97, back to normal. #6 hypertension: Blood pressure stable, she is not on any antihypertensive medications at this time. #7 DVT prophylaxis: Subcu heparin. #8 GI prophylaxis: Continue IV PPI. This note was generated with [employer] dictation software. It may contain incorrect words, spelling, and punctuation that were not noted in checking the note before signing. Code Visit Inpatient E&M: 78671 Subs Hosp L2
[2017-11-21] MEDS: Adenosine 6 MG/2 ML Syringe 12 MG IV (08:15)
--- NOTE | 2017-11-21 08:25 | EKG12_ITS ---
Test Reason : SERIES Blood Pressure : / mmHG Vent. Rate : 089 BPM Atrial Rate : 258 BPM P-R Int : 000 ms QRS Dur : 168 ms QT Int : 388 ms P-R-T Axes : -57 267 -64 degrees QTc Int : 472 ms Atrial flutter with variable A-V block Right bundle branch block Inferior infarct , age undetermined , cannot be excluded Anterolateral infarct , age undetermined , cannot be excluded Abnormal ECG Confirmed by CY WALKER, LEE ([id number]), magazine editor JERRICA HUITRON ([id number]) on 11/24/2017 2:44:51 PM Referred By: LINDA Confirmed By:LEE BENOIT MD
--- NOTE | 2017-11-21 09:30 | CASEMGMT ---
RN CM Note. DC PLAN: TCU -discussed dc plan of TCU for pt who is agreeable. Wearing Bipap intermittently in ICU. Family is @ bedside. SW will continue to follow and assist w/transfer to TCU on dc. Juliann VILLALPANDON RN ACM
--- NOTE | 2017-11-21 10:02 | NURSING ---
[address]. Hernandez present in pt room, prepare for cardioversion. Pt understands and gives verbal consent. 1005 HR 128, R 17, BP 119/96 c/o dizziness/nausea, she is diaphoretic. Bipap w/60% Fio2 etomidate 4mg IV push 1007 50 joules sync shock, remains AFlutter etomidate 2mg IVPush 1008 200joules sync shock, SR HR 82, R 15, BP 142/66, SpO2 94 1015 12 EKG completed.
--- NOTE | 2017-11-21 10:14 | CASEMGMT ---
Spoke with [facility] and TCU will have a bed for patient when she is ready. Plan: [facility] TCU when ready. Robyn APONTE MSW
--- NOTE | 2017-11-21 10:26 | NURSING ---
pt return to AFlutter, Dr. Newman and Dr. Hernandez notified.
--- NOTE | 2017-11-21 10:42 | NURSING ---
20mg IV cardiazem given slow push
--- NOTE | 2017-11-21 10:48 | EKG12_ITS ---
Test Reason : Blood Pressure : / mmHG Vent. Rate : 128 BPM Atrial Rate : 100 BPM P-R Int : 000 ms QRS Dur : 168 ms QT Int : 404 ms P-R-T Axes : 000 262 046 degrees QTc Int : 589 ms Atrial flutter Right bundle branch block Inferior infarct , age undetermined , cannot be excluded Abnormal ECG Confirmed by CY WALKER, LEE ([id number]), art editor JERRICA HUITRON ([id number]) on 11/24/2017 2:42:10 PM Referred By: Confirmed By:LEE BENOIT MD
[2017-11-21] MEDS: dilTIAZem 25 MG/5 ML Vial 20 MG IV BOLUS (10:51)
[2017-11-21] MEDS: 0.9% NaCl IVPB Med Flush (250 mL) 15 ML IV (11:00)
--- NOTE | 2017-11-21 11:33 | PCM.PN.CARD ---
Subjectve: The patient is now extubated. She was noted status post extubation to return to atrial flutter with a rapid ventricular response. She denied any other acute associated symptoms. Objective: Vital Signs Temp Pulse Resp BP Pulse Ox 96.5 F L 131 H 20 H 139/97 H 92 11/21/17 04:00 11/21/17 10:06 11/21/17 10:06 11/21/17 06:00 11/21/17 10:30 Oxygen Flow Rate (L/min) 6 Oxygen Delivery Method Bi-pap Weight: 361 lb 8.929 oz Body Mass Index (BMI) 58.2 Intake and Output for Last 24 Hours 11/19/17 11/20/17 11/21/17 23:59 23:59 23:59 Intake Total 4110.4 / 4110.4 2668 / 2668 563 / 563 Output Total 2075 / 2075 1225 / 1225 300 / 300 Balance 2035.4 / 2035.4 1443 / 1443 263 / 263 General: Awake, Alert, Oriented x 3, Cooperative, No Acute Distress Neck: No JVD Lungs: - - Managed inspiratory effort; no obvious rales or rhonchi Cardiovascular: Irregular Rhythm, Normal S1, Normal S2 Abdomen: Bowel Sounds Present, Soft, Non Tender Extremities: Mild RLE Edema, Mild LLE Edema 11/21/17 04:10: WBC 4.5, RBC 4.60, Hgb 13.8, Hct 44.0, MCV 95.7, MCH 30.0, MCHC 31.4 L, RDW 15.2 H, RDW Differential 52.6 H, Plt Count 112 L, MPV 9.9, Immature Gran % (Auto) 0.200, Neut % (Auto) 44.9 L, Lymph % (Auto) 27.8, Pitkin % (Auto) 21.8 H, Eos % (Auto) 5.1 H, Baso % (Auto) 0.2, Absolute Neuts (auto) 2.0, Total Counted Not Reportable 11/21/17 04:10: Sodium 147 H, Potassium 4.4, Chloride 107, Carbon Dioxide 34.0 H, Anion Gap 6, BUN 26 H, Creatinine 0.97, Est GFR (MDRD) Af Amer 73, Est GFR (MDRD) Non-Af 61, BUN/Creatinine Ratio 26.8 H, Glucose 107 H, Calcium 8.4 L 11/21/17 06:41: pH 7.35, Bicarbonate Actual 32.3 H, POC Total CO2 34, Base Excess 7 H, O2 Saturation 92 L, ABG pCO2 58.6 H, ABG pO2 68 L, Andrew Test POS Rhythm: Atrial flutter with rapid ventricular response Medical Necessity - Tobacco Use Smoking Status: Former smoker - quit 1989 smoked x 10 years Tobacco Use: Cigarettes Assessment/Plan 1. Atrial flutter with rapid ventricular response The patient has had recurrent atrial flutter with rapid ventricular response. Upon her previous course it was elected to proceed with another attempt at synchronized biphasic DC cardioversion. This was performed and initially successful, however, the patient then returned to atrial flutter with a rapid ventricular response. As the patient maintains an elevated heart rate and an adequate blood pressure she is going to attempt additional medical therapy to assist with rate control and rhythm control. This will include IV diltiazem and IV amiodarone. Potentially after her rate and better controlled and she is back on antiarrhythmic therapy, if she remains in atrial flutter, another attempt can be made with synchronized biphasic DC cardioversion to regain sinus rhythm. However, eventually, she should be considered for EP consultation for possible flutter ablation therapy. 2. Cardiomyopathy Based upon her noninvasive studies she does have diminished LV systolic function as well as right ventricular enlargement and diminished RV systolic function. She did undergo reevaluation with a transthoracic echocardiogram. Her overall LV systolic function appears to be preserved with an estimated LVEF of 55%, however, her right ventricle continues to be dilated and dysfunctional. Her estimated RV systolic pressure was approximately 35 mmHg. It appears, when she undergoes diuresis, and diminishes her RV preload, that she does become hypotensive and her creatinine level increases. When she receives IV volume, her RV preload increases, her blood pressure improves as well as her creatinine level. This does make it challenging with respect to attempting to diurese the patient if needed to improve her underlying pulmonary process, etc. 3. Hypertension Her blood pressures have waxed and waned during her clinical changes and her medication changes. At the moment her blood pressures appear to be stable. 4. Acute renal insufficiency As noted above, when the patient receives no diuretics and increased volume her creatinine levels improved. 5. GERD She states she has a history of GERD. She states she cannot tolerate aspirin because it upsets my stomach . She is unclear whether she ever took coated aspirin and whether that would bother her in any negative way. 6. Obesity The patient is morbidly obese. This may be contributing to her diagnosis, symptoms, etc. This can make it challenging with respect to further diagnostic studies, etc. Her and sister state that they have attempted over the years to get her to improve her diet and her activity levels to bring her weight under control. However they state that she basically does nothing but eats, sit, and watch television. 7. Lethargy/obtundation The etiology is unclear. There are concerns this may have been related to an ongoing pulmonary process. 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 Comment: The above was discussed with the ICU staff. This note was generated with [employer] dictation software. It may contain incorrect words, spelling, and punctuation that were not noted in checking the note before signing.
--- NOTE | 2017-11-21 11:37 | PCM.OP.BLANK ---
Problem List (1) Atrial flutter Status: Acute (2) Chest pain Status: Deleted (3) Shortness of breath Status: Deleted (4) HTN (hypertension) Status: Chronic (5) GERD (gastroesophageal reflux disease) Status: Chronic (6) Morbid obesity Status: Chronic Operative Report Date of Procedure: 11/21/17 Procedure: Synchronized biphasic DC cardioversion Indications: Atrial flutter with rapid ventricular response Consent: Per the patient Premedications: Per Dr. Marshall Newman pulmonology/critical care medicine with etomidate 6 mg IV push total Procedure: Synchronized biphasic DC cardioversion: 50 J ?1: Result: Atrial flutter Synchronized biphasic DC cardioversion: 200 J ?1: Result: Sinus rhythm Complications: No apparent complications This note was generated with [employer] dictation software. It may contain incorrect words, spelling, and punctuation that were not noted in checking the note before signing.
[2017-11-21 16:31] LABS: Bedside Glucose 99 mg/dL (70-110)
--- NOTE | 2017-11-21 20:18 | NURSING ---
education re chronic illness deferred till acute illness resolving
[2017-11-21] MEDS: Rivaroxaban 20 MG Tablet GT (21:04)
[2017-11-21] MEDS: Pantoprazole Sodium 40 MG Tablet PO (21:05)
[2017-11-21] MEDS: Polyethylene Glycol 3350 17 GM PACKET PO (22:30)
--- NOTE | 2017-11-21 23:11 | EKG12_ITS ---
Test Reason : POST CARDIOVERSION Blood Pressure : / mmHG Vent. Rate : 085 BPM Atrial Rate : 085 BPM P-R Int : 224 ms QRS Dur : 176 ms QT Int : 424 ms P-R-T Axes : -03 269 024 degrees QTc Int : 504 ms Sinus rhythm with 1st degree A-V block with Premature atrial complexes Right bundle branch block Abnormal ECG Confirmed by CY WALKER, LEE ([id number]), editor in chief newspaper JERRICA HUITRON ([id number] on 11/24/2017 2:23:12 PM Referred By: CY Confirmed By:LEE BENOIT MD
[2017-11-22] VITALS (29 sets, daily range): BP systolic 106–159; BP diastolic 48–128; PULSE 68–122; RESP 11–20; TEMP 36.2–36.8; O2SAT 90–99
[2017-11-22 02:21] LABS: Bedside Glucose 100 mg/dL (70-110)
[2017-11-22 04:22] LABS: Absolute Lymphocyte Count 0.92 X10^3/ul (0.83-4.51); Eosinophil# 0.19 X10^3/uL; Eosinophils% 4.8 % (0-5); Lymphocyte # 0.92 X10^3/ul (4.0); Lymphocyte % 23.1 % (19-41); Mean Corp Hgb Conc 30.4 g/gl (32-36); Mean Corpuscular Hgb 29.9 pg (27.0-32.0); Mean Corpuscular Volume 98.1 fL (81-99); Monocyte# 0.89 X10^3/uL; Monocyte% 22.3 % (0-10); Neutrophil # 1.98 X10^3/uL (2.7-7.7); Neutrophil % 49.5 % (47-70); Platelet Count 122 K/mm3 (150-450); RBC Distribution Width CV 14.9 % (11.6-14.6); RBC Distribution Width SD 52.8 fl (35.1-43.9); Red Blood Count 4.69 M/mm3 (4.2-5.4)
[2017-11-22 04:24] LABS: POSITIVE COUNT NO; POSITIVE DIFFERENTIAL NO; POSITIVE MORPHOLOGY NO
[2017-11-22 04:35] LABS: Anion Gap 5 (5-15); BUN 17 mg/dL (7-18); BUN/Creat Ratio 22.8 RATIO (10-20); Calcium,Total 8.6 mg/dL (8.5-10.1); Chloride 104 mmol/L (98-107); Creatinine, Serum 0.74 mg/dL (0.55-1.02); EST Glomerular Filtration Rate 82 mL/min (>60); Est Glom Filt Rate - Afr Amer 99 mL/min (>60); Estimated Creatinine Clearance 47.78 ml/min; Glucose 96 mg/dL (74-106); Potassium 4.2 mmol/L (3.5-5.1); Sodium Level 145 mmol/L (136-145)
[2017-11-22] MEDS: Ondansetron 4 MG/2 ML Vial IV (06:15)
[2017-11-22] MEDS: 0.9% NaCl Peripheral Flush Adult/Peds IV ×2 (06:15→06:24)
[2017-11-22 06:31] LABS: Bedside Glucose 94 mg/dL (70-110)
--- NOTE | 2017-11-22 06:43 | PCM.PN.INT ---
Subjective: Patient did okay overnight. Patient did have a medium bowel movement. Patient was able to tolerate BiPAP with sleep. Patient did develop some nausea this morning, but no emesis was noted. Patient has not required BiPAP rescue. Patient does remain on Cardizem drip with amiodarone. Heart rates have been relatively controlled. Appears to be in atrial flutter. Patient is reporting intermittent chest pain that improves with coughing. General: Alert, Oriented x3, Cooperative, No apparent distress, - - Morbidly obese. Speaking in full sentences. HEENT: Atraumatic, PERRLA, EOMI, Normocephalic, - - No scleral icterus or injection noted. Oral: Moist Mucosa, No Gingival or Mucosal Lesions/ Ulcerations Neck: Supple, No JVD, No Nodes, Trachea Midline Lungs: No wheeze, No rales, Diminished, Rhonchi, - - Symmetric expansion. Cardiovascular: Normal S1, Normal S2, No murmurs, Irregular Rate, No rub noted, No Gallop, Tachycardic Abdomen: Bowel Sounds Present, Soft, Non Tender, Non-Distended, Obese Extremities: No clubbing, No cyanosis, Capillary Refill Less than 3 Seconds, Edema - 1-2+ lower extremities Skin: No rashes, No breakdown Musculoskeletal: No Tenderness to Palpation of Joints or Extremities Lymphatic: No Cervical, Supraclavicular, or Inguinal Adenopathy Neurological: Cranial nerves II-XII grossly intact, Neuro grossly intact, Motor Exam 5/5 strength throughout Psych/Mental Status: Alert and oriented to time, place, person, mood and affect Vital Signs Temp Pulse Resp BP Pulse Ox 36.6 C 91 19 H 120/86 H 93 11/22/17 04:00 11/22/17 06:00 11/22/17 06:00 11/22/17 06:00 11/22/17 06:00 Oxygen Flow Rate (L/min) 4 Oxygen Delivery Method Nasal Cannula Weight: 164.8 kg Body Mass Index (BMI) 58.2 Intake and Output for Last 24 Hours 11/20/17 11/21/17 11/22/17 23:59 23:59 23:59 Intake Total 2668 / 2668 2513 / 2513 502 / 502 Output Total 1225 / 1225 1450 / 1450 300 / 300 Balance 1443 / 1443 1063 / 1063 202 / 202 Labs (Last 48 Hours) 11/20/17 11/20/17 11/21/17 12:15 17:25 00:08 WBC RBC Hgb Hct MCV MCH MCHC RDW RDW Differential Plt Count MPV Immature Gran % (Auto) Neut % (Auto) Lymph % (Auto) [place] % (Auto) Eos % (Auto) Baso % (Auto) Absolute Neuts (auto) Absolute Lymphs (auto) Total Counted Specimen Type Sample Site pH Bicarbonate Actual POC Total CO2 Base Excess O2 Saturation O2 % ABG pCO2 ABG pO2 Andrew Test O2 Delivery Device Vent Mode POC PEEP POC Pressure Suppt Blood Gas Notified Whom Blood Gas Notified Time Sodium Potassium Chloride Carbon Dioxide Anion Gap BUN Creatinine Estim Creat Clear Calc Est GFR (MDRD) Af Amer Est GFR (MDRD) Non-Af BUN/Creatinine Ratio Glucose Calcium POC Glucose 109 112 H 98 11/21/17 11/21/17 11/21/17 04:10 04:10 06:41 WBC 4.5 RBC 4.60 Hgb 13.8 Hct 44.0 MCV 95.7 MCH 30.0 MCHC 31.4 L RDW 15.2 H RDW Differential 52.6 H Plt Count 112 L MPV 9.9 Immature Gran % (Auto) 0.200 Neut % (Auto) 44.9 L Lymph % (Auto) 27.8 [place] % (Auto) 21.8 H Eos % (Auto) 5.1 H Baso % (Auto) 0.2 Absolute Neuts (auto) 2.0 Absolute Lymphs (auto) 1.25 Total Counted Not Reportable Specimen Type ART Sample Site R Brachial pH 7.35 Bicarbonate Actual 32.3 H POC Total CO2 34 Base Excess 7 H O2 Saturation 92 L O2 % 40 ABG pCO2 58.6 H ABG pO2 68 L Andrew Test POS O2 Delivery Device Vent Vent Mode CPAP PS POC PEEP 6 POC Pressure Suppt 5 Blood Gas Notified Whom ICU MD Blood Gas Notified Time 644 Sodium 147 H Potassium 4.4 Chloride 107 Carbon Dioxide 34.0 H Anion Gap 6 BUN 26 H Creatinine 0.97 Estim Creat Clear Calc 49.25 Est GFR (MDRD) Af Amer 73 Est GFR (MDRD) Non-Af 61 BUN/Creatinine Ratio 26.8 H Glucose 107 H Calcium 8.4 L POC Glucose 11/21/17 11/22/17 11/22/17 16:09 02:12 04:15 WBC 4.0 L RBC 4.69 Hgb 14.0 Hct 46.0 MCV 98.1 MCH 29.9 MCHC 30.4 L RDW 14.9 H RDW Differential 52.8 H Plt Count 122 L MPV 10.0 Immature Gran % (Auto) 0.300 Neut % (Auto) 49.5 Lymph % (Auto) 23.1 [place] % (Auto) 22.3 H Eos % (Auto) 4.8 Baso % (Auto) 0.0 Absolute Neuts (auto) 2.0 Absolute Lymphs (auto) 0.92 Total Counted Not Reportable Specimen Type Sample Site pH Bicarbonate Actual POC Total CO2 Base Excess O2 Saturation O2 % ABG pCO2 ABG pO2 Andrew Test O2 Delivery Device Vent Mode POC PEEP POC Pressure Suppt Blood Gas Notified Whom Blood Gas Notified Time Sodium Potassium Chloride Carbon Dioxide Anion Gap BUN Creatinine Estim Creat Clear Calc Est GFR (MDRD) Af Amer Est GFR (MDRD) Non-Af BUN/Creatinine Ratio Glucose Calcium POC Glucose 99 100 11/22/17 11/22/17 04:15 06:21 WBC RBC Hgb Hct MCV MCH MCHC RDW RDW Differential Plt Count MPV Immature Gran % (Auto) Neut % (Auto) Lymph % (Auto) [place] % (Auto) Eos % (Auto) Baso % (Auto) Absolute Neuts (auto) Absolute Lymphs (auto) Total Counted Specimen Type Sample Site pH Bicarbonate Actual POC Total CO2 Base Excess O2 Saturation O2 % ABG pCO2 ABG pO2 Andrew Test O2 Delivery Device Vent Mode POC PEEP POC Pressure Suppt Blood Gas Notified Whom Blood Gas Notified Time Sodium 145 Potassium 4.2 Chloride 104 Carbon Dioxide 36.0 H Anion Gap 5 BUN 17 Creatinine 0.74 Estim Creat Clear Calc 47.78 Est GFR (MDRD) Af Amer 99 Est GFR (MDRD) Non-Af 82 BUN/Creatinine Ratio 22.8 H Glucose 96 Calcium 8.6 POC Glucose 94 Microbiology 11/18/17 01:50 Sputum, Tracheal Aspirate Gram Stain - Final 11/18/17 01:50 Sputum, Tracheal Aspirate Respiratory Culture - Final Haemophilus influenzae 11/18/17 06:50 Urine Catheter - Catheter Urine Culture - Final Enterobacter cloacae complex Klebsiella pneumoniae sp pneum 11/18/17 06:50 Blood Culture (Wb) - Pic Blood Culture - Preliminary No growth in 48 hours. Medical Necessity - Tobacco Use Smoking Status: Former smoker - quit 1989 smoked x 10 years Tobacco Use: Cigarettes Assessment/Plan All Active Problems Acute respiratory failure (Acute) Healthcare-associated pneumonia (Acute) Atrial flutter (Acute) RECOMMENDATIONS: 1. Wean oxygen as tolerated 2. Complete course of ceftriaxone 3. Continue BiPAP with sleep 4. Increase activity as tolerated 5. Continue Xarelto 6. Discontinue Goldstein catheter IMPRESSIONS: 1. Acute hypoxemic and hypercarbic respiratory failure secondary to healthcare associated pneumonia/pulmonary edema Patient appears to be doing well from a respiratory standpoint. Patient remains on supplemental oxygen. Patient is compliant with BiPAP with sleep. Patient will complete antibiotic course with ceftriaxone from polymicrobial pneumonia. Clinical suspicion for chest pain secondary to dried secretions. Will attempt to keep off of BiPAP therapy while awake and allow for pulmonary toileting. 2. Encephalopathy As noted above, etiology for the patient's encephalopathy was likely secondary to hypercarbia. However, the exact reason for her acute hypercapnia remains a bit unclear. Patient appears to be mentating well. ABG shows adequate ventilation 3. Atrial flutter with rapid ventricular response/underlying cardiomyopathy Patient with failed cardioversion yesterday. Patient does have a right bundle robert block with a flutter on telemetry. Patient is on anticoagulation. Patient currently on Cardizem and amiodarone drips. Defer to cardiology on transition to p.o. Patient has remained hemodynamically stable 4. Suspected sleep disordered breathing The patient undoubtedly needs to be followed up as an outpatient to undergo a formal diagnostic polysomnogram. Patient may be initiated on BiPAP therapy with sleep if desaturations are noted. 5. Acute kidney injury RESOLVED > urine output has remained appropriate. Patient did respond well to discontinuation of TOÑA inhibitor and diuretic therapy. No indication for renal replacement therapy at this time. 6. Super morbid obesity/GERD/hypertension Complicates care, management, recovery and prognosis. Hold antihypertensives at this time. Code Visit Inpatient E&M: [id number] [facility] L3
[2017-11-22] MEDS: Ipratropium/Albuterol Sulfate 3 ML AMPUL.NEB INHALATION ×2 (07:40→20:00)
[2017-11-22] MEDS: Polyethylene Glycol 3350 17 GM PACKET PO ×2 (08:09→22:20)
[2017-11-22] MEDS: Senna/Docusate Sodium 1 Tablet 2 TABLET PO ×2 (08:11→22:15)
[2017-11-22] MEDS: Pantoprazole Sodium 40 MG Tablet PO (08:12)
[2017-11-22] MEDS: 0.9% NaCl IVPB Med Flush (250 mL) 15 ML IV ×3 (09:00→22:16)
--- NOTE | 2017-11-22 09:27 | CASEMGMT ---
SW participated in interdisciplinary rounds and notified everyone that TCU will have a bed for patient. Robyn APONTE MSW
--- NOTE | 2017-11-22 09:33 | PN_ITS ---
Patient Problems: Active and Suspected Problems Atrial flutter (Acute) Subjective: Chief complaint: Follow-up after admission for acute hypoxic and hypercapnic respiratory failure secondary to healthcare associated pneumonia and also found to have atrial flutter with RVR. Patient seen and examined. No acute events overnight. She is sitting in a chair, comfortable. Denied chest pain or shortness of breath. She remained in atrial flutter, remains on IV Cardizem and amiodarone drip. Hemodynamically stable, pulse ox is 92% on 4 L. - Physical Exam General: Alert, Oriented x3, Cooperative, No apparent distress HEENT: Atraumatic, PERRLA, EOMI, Normocephalic Oral: Moist Mucosa, No Gingival or Mucosal Lesions/ Ulcerations Neck: Supple, No JVD, Negative Carotid Bruits, Trachea Midline, Thyroid Normal Size and Texture Lungs: Clear to auscultation, No wheeze, No rales, Diminished, Rhonchi Cardiovascular: Normal S1, Normal S2, No murmurs, PMI Normal, Irregular Rate, Tachycardic Abdomen: Bowel Sounds Present, Soft, Non Tender, Non-Distended, No Hepato- splenomegaly, Obese Extremities: No clubbing, No cyanosis, Edema Skin: No rashes, No breakdown Lymphatic: No Cervical, Supraclavicular, or Inguinal Adenopathy Neurological: Cranial nerves II-XII grossly intact, Neuro grossly intact, Motor Exam 5/5 strength throughout Psych/Mental Status: Normal Affect, Appropriate, Alert and oriented to time, place, person, mood and affect Vital Signs Temp Pulse Resp BP Pulse Ox 98 F 88 18 120/86 H 92 11/22/17 04:00 11/22/17 07:41 11/22/17 07:41 11/22/17 06:00 11/22/17 07:41 Oxygen Flow Rate (L/min) 4 Oxygen Delivery Method Nasal Cannula Weight: 363 lb 5.149 oz Body Mass Index (BMI) 58.2 Intake and Output for Last 24 Hours 11/20/17 11/21/17 11/22/17 23:59 23:59 23:59 Intake Total 2668 / 2668 2513 / 2513 502 / 502 Output Total 1225 / 1225 1450 / 1450 300 / 300 Balance 1443 / 1443 1063 / 1063 202 / 202 Microbiology Past 72 Hours 11/18/17 01:50 Gram Stain - Final Sputum, Tracheal Aspirate Respiratory Culture - Final Haemophilus influenzae 11/18/17 06:50 Urine Culture - Final Urine Catheter - Catheter Enterobacter cloacae complex Klebsiella pneumoniae sp pneum 11/18/17 06:50 Blood Culture - Preliminary Blood Culture (Wb) - Pic No growth in 48 hours. Laboratory Tests Past 24 Hrs 11/22/17 11/22/17 04:15 04:15 WBC 4.0 L RBC 4.69 Hgb 14.0 Hct 46.0 MCV 98.1 MCH 29.9 MCHC 30.4 L RDW 14.9 H RDW Differential 52.8 H Plt Count 122 L MPV 10.0 Immature Gran % (Auto) 0.300 Neut % (Auto) 49.5 Lymph % (Auto) 23.1 [place] % (Auto) 22.3 H Eos % (Auto) 4.8 Baso % (Auto) 0.0 Absolute Neuts (auto) 2.0 Absolute Lymphs (auto) 0.92 Total Counted Not Reportable Sodium 145 Potassium 4.2 Chloride 104 Carbon Dioxide 36.0 H Anion Gap 5 BUN 17 Creatinine 0.74 Estim Creat Clear Calc 47.78 Est GFR (MDRD) Af Amer 99 Est GFR (MDRD) Non-Af 82 BUN/Creatinine Ratio 22.8 H Glucose 96 Calcium 8.6 POC Glucose 11/22/17 11/22/17 11/21/17 06:21 02:12 16:09 POC Glucose 94 100 99 Medical Necessity - Tobacco Use Smoking Status: Former smoker - quit 1990 smoked x 10 years Tobacco Use: Cigarettes Assessment/Plan All Active Problems Acute respiratory failure (Acute) Healthcare-associated pneumonia (Acute) Atrial flutter (Acute) This is a 67 years old female patient admitted because of shortness of breath and chest pain, found to have healthcare associated pneumonia complicated by acute hypoxic and hypercarbic respiratory failure and she developed atrial flutter with RVR. #1 acute hypoxic and hypercapnic respiratory failure: Status post extubation, day 2. Respiratory status stabilized, remained on oxygen at 4 L. She remained in atrial flutter, rate is around 90s, blood pressure stable. Plan to continue same treatment. #2 healthcare associated pneumonia: She is on IV Rocephin. She has been afebrile, Hemodynamically stable atrial flutter, no leukocytosis. Sputum culture revealed Haemophilus influenza. Blood cultures showed no growth in 48 hours. Urine culture revealed Enterobacter cloacae and Klebsiella pneumoniae, sensitivity reviewed. Pneumococcal and Legionella antigen were negative. Plan to continue same treatment. #3 new onset atrial flutter with RVR: Status post DC cardioversion x2. She is on IV amiodarone and Cardizem drip. Rate has been around 90s, blood pressure stable. she is on Xarelto for anticoagulation. 2D echocardiogram revealed ejection fraction of 55%, the findings reviewed. Cardiology on the case. Plan to continue same treatment. #5 encephalopathy: Likely metabolic secondary to pneumonia and respiratory failure. She has no focal deficit on exam. CT scan brain showed no acute findings. Today, she is alert and awake, moving all limbs. #5 acute kidney injury: Secondary to infection. She has been on IV fluids, today's creatinine is 0.74, back to normal. #6 hypertension: Blood pressure stable, she is not on any antihypertensive medications at this time. #7 DVT prophylaxis: Subcu heparin. #8 GI prophylaxis: Continue Protonix. This note was generated with [employer] dictation software. It may contain incorrect words, spelling, and punctuation that were not noted in checking the note before signing. Code Visit Inpatient E&M: 45659 [facility] L2
[2017-11-22] MEDS: CHLORHEXIDINE GLUC 2% CLOTH 1 EACH TOWELETTE TOPICAL (12:00)
[2017-11-22] MEDS: Digoxin 250 MCG/ML Ampul 500 MCG IV (12:35)
[2017-11-22] MEDS: Carvedilol 3.125 MG TABLET PO ×2 (12:36→22:17)
--- NOTE | 2017-11-22 17:46 | PCM.PN.CARD ---
Subjectve: The patient has been up out of bed. She ambulated in her room with OT/PT. She became short of breath and dyspneic. Her oxygen saturation decreased to the 80% range. After sitting down and resting her oxygen saturation improved. Objective: Vital Signs Temp Pulse Resp BP Pulse Ox 98.0 F 75 14 138/79 H 94 11/22/17 16:00 11/22/17 16:00 11/22/17 16:00 11/22/17 16:00 11/22/17 16:00 Oxygen Flow Rate (L/min) 4 Oxygen Delivery Method Nasal Cannula Weight: 363 lb 5.149 oz Body Mass Index (BMI) 58.2 Intake and Output for Last 24 Hours 11/20/17 11/21/17 11/22/17 23:59 23:59 23:59 Intake Total 2668 / 2668 2513 / 2513 1198 / 1198 Output Total 1225 / 1225 1450 / 1450 475 / 475 Balance 1443 / 1443 1063 / 1063 723 / 723 General: Awake, Alert, Oriented x 3, Obese Neck: No JVD Lungs: - - Diminished inspiratory effort Cardiovascular: Irregular Rhythm, Normal S1, Normal S2 Abdomen: Bowel Sounds Present, Soft, Obese Extremities: Mild RLE Edema, Mild LLE Edema 11/22/17 04:15: WBC 4.0 L, RBC 4.69, Hgb 14.0, Hct 46.0, MCV 98.1, MCH 29.9, MCHC 30.4 L, RDW 14.9 H, RDW Differential 52.8 H, Plt Count 122 L, MPV 10.0, Immature Gran % (Auto) 0.300, Neut % (Auto) 49.5, Lymph % (Auto) 23.1, [place] % (Auto) 22.3 H, Eos % (Auto) 4.8, Baso % (Auto) 0.0, Absolute Neuts (auto) 2.0, Total Counted Not Reportable 11/22/17 04:15: Sodium 145, Potassium 4.2, Chloride 104, Carbon Dioxide 36.0 H, Anion Gap 5, BUN 17, Creatinine 0.74, Est GFR (MDRD) Af Amer 99, Est GFR (MDRD) Non-Af 82, BUN/Creatinine Ratio 22.8 H, Glucose 96, Calcium 8.6 Rhythm: Atrial flutter Medical Necessity - Tobacco Use Smoking Status: Former smoker - quit 1989 smoked x 10 years Tobacco Use: Cigarettes Assessment/Plan 1. Atrial flutter with rapid ventricular response The patient has had recurrent atrial flutter with rapid ventricular response. Upon her previous course it was elected to proceed with another attempt at synchronized biphasic DC cardioversion. This was performed and initially successful, however, the patient then returned to atrial flutter with a rapid ventricular response. At the present time she is going to continue rate control therapy and antiarrhythmic therapy. Her IV medications will be adjusted to oral medication. She will continue her anticoagulant therapy. If she remains in her atrial flutter than perhaps she can have another attempt, status post initiation of her antiarrhythmic therapy, at synchronized biphasic DC cardioversion to regain sinus rhythm. 2. Cardiomyopathy Based upon her noninvasive studies she does have diminished LV systolic function as well as right ventricular enlargement and diminished RV systolic function. She did undergo reevaluation with a transthoracic echocardiogram. Her overall LV systolic function appears to be preserved with an estimated LVEF of 55%, however, her right ventricle continues to be dilated and dysfunctional. Her estimated RV systolic pressure was approximately 35 mmHg. It appears, when she undergoes diuresis, and diminishes her RV preload, that she does become hypotensive and her creatinine level increases. When she receives IV volume, her RV preload increases, her blood pressure improves as well as her creatinine level. This does make it challenging with respect to attempting to diurese the patient if needed to improve her underlying pulmonary process, etc. 3. Hypertension Her blood pressures have waxed and waned during her clinical changes and her medication changes. At the moment her blood pressures appear to be stable. 4. Acute renal insufficiency As noted above, when the patient receives no diuretics and increased volume her creatinine levels improved. 5. GERD She states she has a history of GERD. She states she cannot tolerate aspirin because it upsets my stomach . She is unclear whether she ever took coated aspirin and whether that would bother her in any negative way. 6. Obesity The patient is morbidly obese. This may be contributing to her diagnosis, symptoms, etc. This can make it challenging with respect to further diagnostic studies, etc. 7. Lethargy/obtundation The etiology is unclear. There are concerns this may have been related to an ongoing pulmonary process. She is undergone additional evaluation for any acute SQUIRREL WORKER process was a brain CT scan which was negative for any obvious embolic event or hemorrhagic event. Comment: The above was discussed with the ICU staff. This note was generated with [employer] dictation software. It may contain incorrect words, spelling, and punctuation that were not noted in checking the note before signing.
--- NOTE | 2017-11-22 17:49 | PN.CARD_ITS ---
Subjectve: The patient has been up out of bed. She ambulated in her room with OT/PT. She became short of breath and dyspneic. Her oxygen saturation decreased to the 80 % range. After sitting down and resting her oxygen saturation improved. Objective: Vital Signs Temp Pulse Resp BP Pulse Ox 98.0 F 75 14 138/79 H 94 11/22/17 16:00 11/22/17 16:00 11/22/17 16:00 11/22/17 16:00 11/22/17 16:00 Oxygen Flow Rate (L/min) 4 Oxygen Delivery Method Nasal Cannula Weight: 363 lb 5.149 oz Body Mass Index (BMI) 58.2 Intake and Output for Last 24 Hours 11/20/17 11/21/17 11/22/17 23:59 23:59 23:59 Intake Total 2668 / 2668 2513 / 2513 1198 / 1198 Output Total 1225 / 1225 1450 / 1450 475 / 475 Balance 1443 / 1443 1063 / 1063 723 / 723 General: Awake, Alert, Oriented x 3, Obese Neck: No JVD Lungs: - - Diminished inspiratory effort Cardiovascular: Irregular Rhythm, Normal S1, Normal S2 Abdomen: Bowel Sounds Present, Soft, Obese Extremities: Mild RLE Edema, Mild LLE Edema 11/22/17 04:15: WBC 4.0 L, RBC 4.69, Hgb 14.0, Hct 46.0, MCV 98.1, MCH 29.9, MCHC 30.4 L, RDW 14.9 H, RDW Differential 52.8 H, Plt Count 122 L, MPV 10.0, Immature Gran % (Auto) 0.300, Neut % (Auto) 49.5, Lymph % (Auto) 23.1, [place] % ( Auto) 22.3 H, Eos % (Auto) 4.8, Baso % (Auto) 0.0, Absolute Neuts (auto) 2.0, Total Counted Not Reportable 11/22/17 04:15: Sodium 145, Potassium 4.2, Chloride 104, Carbon Dioxide 36.0 H, Anion Gap 5, BUN 17, Creatinine 0.74, Est GFR (MDRD) Af Amer 99, Est GFR (MDRD) Non-Af 82, BUN/Creatinine Ratio 22.8 H, Glucose 96, Calcium 8.6 Rhythm: Atrial flutter Medical Necessity - Tobacco Use Smoking Status: Former smoker - quit 1989 smoked x 10 years Tobacco Use: Cigarettes Assessment/Plan 1. Atrial flutter with rapid ventricular response The patient has had recurrent atrial flutter with rapid ventricular response. Upon her previous course it was elected to proceed with another attempt at synchronized biphasic DC cardioversion. This was performed and initially successful, however, the patient then returned to atrial flutter with a rapid ventricular response. At the present time she is going to continue rate control therapy and antiarrhythmic therapy. Her IV medications will be adjusted to oral medication. She will continue her anticoagulant therapy. If she remains in her atrial flutter than perhaps she can have another attempt, status post initiation of her antiarrhythmic therapy, at synchronized biphasic DC cardioversion to regain sinus rhythm. 2. Cardiomyopathy Based upon her noninvasive studies she does have diminished LV systolic function as well as right ventricular enlargement and diminished RV systolic function. She did undergo reevaluation with a transthoracic echocardiogram. Her overall LV systolic function appears to be preserved with an estimated LVEF of 55%, however, her right ventricle continues to be dilated and dysfunctional. Her estimated RV systolic pressure was approximately 35 mmHg. It appears, when she undergoes diuresis, and diminishes her RV preload, that she does become hypotensive and her creatinine level increases. When she receives IV volume, her RV preload increases, her blood pressure improves as well as her creatinine level. This does make it challenging with respect to attempting to diurese the patient if needed to improve her underlying pulmonary process, etc. 3. Hypertension Her blood pressures have waxed and waned during her clinical changes and her medication changes. At the moment her blood pressures appear to be stable. 4. Acute renal insufficiency As noted above, when the patient receives no diuretics and increased volume her creatinine levels improved. 5. GERD She states she has a history of GERD. She states she cannot tolerate aspirin because it upsets my stomach . She is unclear whether she ever took coated aspirin and whether that would bother her in any negative way. 6. Obesity The patient is morbidly obese. This may be contributing to her diagnosis, symptoms, etc. This can make it challenging with respect to further diagnostic studies, etc. 7. Lethargy/obtundation The etiology is unclear. There are concerns this may have been related to an ongoing pulmonary process. She is undergone additional evaluation for any acute TRANSFORMATION SPECIALIST process was a brain CT scan which was negative for any obvious embolic event or hemorrhagic event. Comment: The above was discussed with the ICU staff. This note was generated with [employer] dictation software. It may contain incorrect words, spelling, and punctuation that were not noted in checking the note before signing.
[2017-11-22] MEDS: Rivaroxaban 20 MG Tablet GT (17:54)
--- NOTE | 2017-11-22 22:07 | NURSING ---
Patient educated on Atrial Flutter/Fibrillation. Reinforcement needed. Capri Low RN.
[2017-11-22] MEDS: Amiodarone 200 MG Tablet PO (22:16)
[2017-11-22] MEDS: 0.9% Normal Saline 1,000 ML 15 ML IV (22:20)
[2017-11-23] VITALS (44 sets, daily range): BP systolic 86–176; BP diastolic 50–116; PULSE 60–136; RESP 12–24; TEMP 36.3–36.9; O2SAT 90–98
[2017-11-23 05:02] LABS: Absolute Lymphocyte Count 1.23 X10^3/ul (0.83-4.51); Basophil# 0.01 X10^3/uL; Basophil% 0.2 % (0-1); Eosinophils% 3.8 % (0-5); Hematocrit 49.1 % (37-47); Hemoglobin 14.7 g/dl (12.0-15.0); Lymphocyte # 1.23 X10^3/ul (4.0); Lymphocyte % 23.6 % (19-41); Mean Corp Hgb Conc 29.9 g/gl (32-36); Mean Corpuscular Hgb 29.2 pg (27.0-32.0); Mean Corpuscular Volume 97.6 fL (81-99); Mean Platelet Vol. 10.5 fl (6.2-12.0); Monocyte# 0.79 X10^3/uL; Monocyte% 15.1 % (0-10); Neutrophil # 2.98 X10^3/uL (2.7-7.7); Neutrophil % 57.1 % (47-70); Platelet Count 105 K/mm3 (150-450); RBC Distribution Width CV 14.2 % (11.6-14.6); RBC Distribution Width SD 50.6 fl (35.1-43.9); Red Blood Count 5.03 M/mm3 (4.2-5.4); White Blood Count 5.2 K/mm3 (4.4-11.0)
[2017-11-23 05:04] LABS: POSITIVE COUNT NO; POSITIVE DIFFERENTIAL NO; POSITIVE MORPHOLOGY NO
[2017-11-23 05:09] LABS: Anion Gap 7 (5-15); BUN 13 mg/dL (7-18); BUN/Creat Ratio 15.6 RATIO (10-20); Calcium,Total 8.9 mg/dL (8.5-10.1); Chloride 103 mmol/L (98-107); Creatinine, Serum 0.83 mg/dL (0.55-1.02); EST Glomerular Filtration Rate 72 mL/min (>60); Est Glom Filt Rate - Afr Amer 87 mL/min (>60); Estimated Creatinine Clearance 57.56 ml/min; Glucose 87 mg/dL (74-106); Potassium 4.1 mmol/L (3.5-5.1); Sodium Level 144 mmol/L (136-145)
--- NOTE | 2017-11-23 06:27 | PCM.PN.INT ---
Subjective: Patient did well overnight from a respiratory standpoint. Patient remains in a flutter with RVR. Patient reports subjective improvement in overall condition. Patient was tolerating 4 L nasal cannula when off of BiPAP during the day. Patient did have a soapsuds enema yesterday with a moderate bowel movement and improvement in nausea. General: Alert, Oriented x3, Cooperative, No apparent distress, - - Morbidly obese. Speaking in full sentences. HEENT: Atraumatic, PERRLA, EOMI, Normocephalic, - - No scleral icterus or injection noted. Oral: Moist Mucosa, No Gingival or Mucosal Lesions/ Ulcerations Neck: Supple, No JVD, No Nodes, Trachea Midline Lungs: No rhonchi, No wheeze, No rales, Diminished, - - Symmetric expansion. No dullness to percussion. Cardiovascular: Normal S1, Normal S2, No murmurs, Irregular Rate, No rub noted, No Gallop, Tachycardic Abdomen: Bowel Sounds Present, Soft, Non Tender, Distended - Improved, Obese Extremities: No clubbing, No cyanosis, Capillary Refill Less than 3 Seconds, Edema - 2+ anasarca Skin: No rashes, No breakdown Musculoskeletal: No Tenderness to Palpation of Joints or Extremities Lymphatic: No Cervical, Supraclavicular, or Inguinal Adenopathy Neurological: Cranial nerves II-XII grossly intact, Neuro grossly intact, Motor Exam 5/5 strength throughout Psych/Mental Status: Alert and oriented to time, place, person, mood and affect Vital Signs Temp Pulse Resp BP Pulse Ox 36.7 C 104 H 16 111/61 95 11/23/17 05:00 11/23/17 06:00 11/23/17 06:00 11/23/17 06:00 11/23/17 06:00 Oxygen Flow Rate (L/min) 4 Oxygen Delivery Method Bi-pap Weight: 165.2 kg Body Mass Index (BMI) 58.2 Intake and Output for Last 24 Hours 11/21/17 11/22/17 11/23/17 23:59 23:59 23:59 Intake Total 2513 / 2513 1884 / 1884 342.2 / 342.2 Output Total 1450 / 1450 850 / 850 625 / 625 Balance 1063 / 1063 1034 / 1034 -282.8 / -282.8 Labs (Last 48 Hours) 11/21/17 11/21/17 11/22/17 06:41 16:09 02:12 WBC RBC Hgb Hct MCV MCH MCHC RDW RDW Differential Plt Count MPV Immature Gran % (Auto) Neut % (Auto) Lymph % (Auto) [place] % (Auto) Eos % (Auto) Baso % (Auto) Absolute Neuts (auto) Absolute Lymphs (auto) Total Counted Specimen Type ART Sample Site R Brachial pH 7.35 Bicarbonate Actual 32.3 H POC Total CO2 34 Base Excess 7 H O2 Saturation 92 L O2 % 40 ABG pCO2 58.6 H ABG pO2 68 L Adnrew Test POS O2 Delivery Device Vent Vent Mode CPAP PS POC PEEP 6 POC Pressure Suppt 5 Blood Gas Notified Whom ICU MD Blood Gas Notified Time 644 Sodium Potassium Chloride Carbon Dioxide Anion Gap BUN Creatinine Estim Creat Clear Calc Est GFR (MDRD) Af Amer Est GFR (MDRD) Non-Af BUN/Creatinine Ratio Glucose Calcium POC Glucose 99 100 11/22/17 11/22/17 11/22/17 04:15 04:15 06:21 WBC 4.0 L RBC 4.69 Hgb 14.0 Hct 46.0 MCV 98.1 MCH 29.9 MCHC 30.4 L RDW 14.9 H RDW Differential 52.8 H Plt Count 122 L MPV 10.0 Immature Gran % (Auto) 0.300 Neut % (Auto) 49.5 Lymph % (Auto) 23.1 [place] % (Auto) 22.3 H Eos % (Auto) 4.8 Baso % (Auto) 0.0 Absolute Neuts (auto) 2.0 Absolute Lymphs (auto) 0.92 Total Counted Not Reportable Specimen Type Sample Site pH Bicarbonate Actual POC Total CO2 Base Excess O2 Saturation O2 % ABG pCO2 ABG pO2 Andrew Test O2 Delivery Device Vent Mode POC PEEP POC Pressure Suppt Blood Gas Notified Whom Blood Gas Notified Time Sodium 145 Potassium 4.2 Chloride 104 Carbon Dioxide 36.0 H Anion Gap 5 BUN 17 Creatinine 0.74 Estim Creat Clear Calc 47.78 Est GFR (MDRD) Af Amer 99 Est GFR (MDRD) Non-Af 82 BUN/Creatinine Ratio 22.8 H Glucose 96 Calcium 8.6 POC Glucose 94 11/23/17 11/23/17 04:50 04:50 WBC 5.2 RBC 5.03 Hgb 14.7 Hct 49.1 H MCV 97.6 MCH 29.2 MCHC 29.9 L RDW 14.2 RDW Differential 50.6 H Plt Count 105 L MPV 10.5 Immature Gran % (Auto) 0.200 Neut % (Auto) 57.1 Lymph % (Auto) 23.6 [place] % (Auto) 15.1 H Eos % (Auto) 3.8 Baso % (Auto) 0.2 Absolute Neuts (auto) 3.0 Absolute Lymphs (auto) 1.23 Total Counted Not Reportable Specimen Type Sample Site pH Bicarbonate Actual POC Total CO2 Base Excess O2 Saturation O2 % ABG pCO2 ABG pO2 Andrew Test O2 Delivery Device Vent Mode POC PEEP POC Pressure Suppt Blood Gas Notified Whom Blood Gas Notified Time Sodium 144 Potassium 4.1 Chloride 103 Carbon Dioxide 34.0 H Anion Gap 7 BUN 13 Creatinine 0.83 Estim Creat Clear Calc 57.56 Est GFR (MDRD) Af Amer 87 Est GFR (MDRD) Non-Af 72 BUN/Creatinine Ratio 15.6 Glucose 87 Calcium 8.9 POC Glucose Microbiology 11/18/17 01:50 Sputum, Tracheal Aspirate Gram Stain - Final 11/18/17 01:50 Sputum, Tracheal Aspirate Respiratory Culture - Final Haemophilus influenzae Medical Necessity - Tobacco Use Smoking Status: Former smoker - quit 1990 smoked x 10 years Tobacco Use: Cigarettes Assessment/Plan All Active Problems Acute respiratory failure (Acute) Healthcare-associated pneumonia (Acute) Atrial flutter (Acute) RECOMMENDATIONS: 1. Wean oxygen as tolerated 2. Complete course of ceftriaxone 3. Continue BiPAP with sleep 4. Increase activity as tolerated 5. Continue Xarelto 6. Possible cardioversion later today IMPRESSIONS: 1. Acute hypoxemic and hypercarbic respiratory failure secondary to healthcare associated pneumonia/pulmonary edema Patient appears to be doing well from a respiratory standpoint. Patient remains on supplemental oxygen. Patient is compliant with BiPAP with sleep. Patient will complete antibiotic course with ceftriaxone from polymicrobial pneumonia. Clinical suspicion for chest pain secondary to dried secretions. Chest pain was improved with staying awake during the day and not requiring BiPAP rescue. Patient is up approximately 2 L over the last 2 days, so we will give a dose of Lasix therapy to prevent continued fluid retention. 2. Encephalopathy RESOLVED > as noted above, etiology for the patient's encephalopathy was likely secondary to hypercarbia. However, the exact reason for her acute hypercapnia remains a bit unclear. Patient appears to be mentating well. ABG shows adequate ventilation 3. Atrial flutter with rapid ventricular response/underlying cardiomyopathy Patient with failed cardioversion previously. Patient does have a right bundle robert block with a flutter on telemetry. Patient is on anticoagulation. Patient currently on Cardizem and amiodarone drips. Patient has been tolerating this from a hemodynamic standpoint. May attempt a cardioversion later today. Hope is that rhythm will stay in sinus given 2 days of amiodarone by IV. Patient may require ablation in the future. 4. Suspected sleep disordered breathing The patient undoubtedly needs to be followed up as an outpatient to undergo a formal diagnostic polysomnogram. Continue empiric BiPAP for now with all sleep. 5. Acute kidney injury RESOLVED > urine output has remained appropriate. Patient did respond well to discontinuation of TOÑA inhibitor and diuretic therapy. No indication for renal replacement therapy at this time. 6. Super morbid obesity/GERD/hypertension Complicates care, management, recovery and prognosis. Hold antihypertensives at this time. Code Visit Inpatient E&M: 79044 Subs Hosp L3
[2017-11-23] MEDS: Furosemide 40 MG/4 ML Vial IV (06:35)
[2017-11-23] MEDS: 0.9% NaCl Peripheral Flush Adult/Peds IV ×2 (06:36→09:48)
[2017-11-23] MEDS: CHLORHEXIDINE GLUC 2% CLOTH 1 EACH TOWELETTE TOPICAL (06:36)
[2017-11-23] MEDS: Ipratropium/Albuterol Sulfate 3 ML AMPUL.NEB INHALATION ×3 (06:57→19:20)
[2017-11-23] MEDS: Carvedilol 3.125 MG TABLET PO ×2 (08:52→21:11)
[2017-11-23] MEDS: Amiodarone 200 MG Tablet PO ×2 (08:53→21:11)
--- NOTE | 2017-11-23 09:23 | PN.CARD_ITS ---
Subjectve: The patient remains in the ICU. She has been up in the chair and ambulating in her room. She is noted to have continued atrial flutter with increase of her heart rate with activity. She states she consents this when her heart rate goes up. She has chronic shortness of breath. Objective: Vital Signs Temp Pulse Resp BP Pulse Ox 97.4 F L 135 H 18 144/109 H 96 11/23/17 08:00 11/23/17 09:00 11/23/17 09:00 11/23/17 09:00 11/23/17 09:00 Oxygen Flow Rate (L/min) 4 Oxygen Delivery Method Nasal Cannula Weight: 364 lb 3.258 oz Body Mass Index (BMI) 58.2 Intake and Output for Last 24 Hours 11/21/17 11/22/17 11/23/17 23:59 23:59 23:59 Intake Total 2513 / 2513 1884 / 1884 342.2 / 342.2 Output Total 1450 / 1450 850 / 850 625 / 625 Balance 1063 / 1063 1034 / 1034 -282.8 / -282.8 General: Awake, Alert, Oriented x 3, Cooperative, Obese Neck: No JVD Lungs: Diminished [place] Bases Cardiovascular: Irregular Rhythm, Normal S1, Normal S2 Abdomen: Bowel Sounds Present, Soft, Non Tender, Obese Extremities: Trace RLE Edema, Trace LLE Edema Neurological: No Focal Motor or Sensory Deficit Psych/Mental Status: Appropriate, Normal Affect 11/23/17 04:50: WBC 5.2, RBC 5.03, Hgb 14.7, Hct 49.1 H, MCV 97.6, MCH 29.2, MCHC 29.9 L, RDW 14.2, RDW Differential 50.6 H, Plt Count 105 L, MPV 10.5, Immature Gran % (Auto) 0.200, Neut % (Auto) 57.1, Lymph % (Auto) 23.6, [place] % ( Auto) 15.1 H, Eos % (Auto) 3.8, Baso % (Auto) 0.2, Absolute Neuts (auto) 3.0, Total Counted Not Reportable 11/23/17 04:50: Sodium 144, Potassium 4.1, Chloride 103, Carbon Dioxide 34.0 H, Anion Gap 7, BUN 13, Creatinine 0.83, Est GFR (MDRD) Af Amer 87, Est GFR (MDRD) Non-Af 72, BUN/Creatinine Ratio 15.6, Glucose 87, Calcium 8.9 Rhythm: Atrial flutter with episodes of variable ventricular response and rapid ventricular response Medical Necessity - Tobacco Use Smoking Status: Former smoker - quit 1989 smoked x 10 years Tobacco Use: Cigarettes Assessment/Plan 1. Atrial flutter with rapid ventricular response The patient has had recurrent atrial flutter with rapid ventricular response. She remains on oral medication to assist with rate control, rhythm control, and anticoagulation. She will be considered for another attempt at synchronized biphasic DC cardioversion, now that her medications been adjusted, to try and regain and maintain sinus rhythm. She should be considered in the future for EP consultation for possible atrial flutter ablation therapy. 2. Cardiomyopathy Based upon her noninvasive studies she does have diminished LV systolic function as well as right ventricular enlargement and diminished RV systolic function. She did undergo reevaluation with a transthoracic echocardiogram. Her overall LV systolic function appears to be preserved with an estimated LVEF of 55%, however, her right ventricle continues to be dilated and dysfunctional. Her estimated RV systolic pressure was approximately 35 mmHg. It appears, when she undergoes diuresis, and diminishes her RV preload, that she does become hypotensive and her creatinine level increases. When she receives IV volume, her RV preload increases, her blood pressure improves as well as her creatinine level. This does make it challenging with respect to attempting to diurese the patient if needed to improve her underlying pulmonary process, etc. 3. Hypertension Her blood pressures have waxed and waned during her clinical changes and her medication changes. At the moment her blood pressures appear to be stable. 4. Acute renal insufficiency As noted above, when the patient receives no diuretics and increased volume her creatinine levels improved. As she is going to receive additional diuretic therapy her renal function will need to be followed. 5. GERD She states she has a history of GERD. She states she cannot tolerate aspirin because it upsets my stomach . She is unclear whether she ever took coated aspirin and whether that would bother her in any negative way. 6. Obesity The patient is morbidly obese. This may be contributing to her diagnosis, symptoms, etc. This can make it challenging with respect to further diagnostic studies, etc. Comment: The above was discussed with the ICU staff. This note was generated with [employer] software. It may contain incorrect words, spelling, and punctuation that were not noted in checking the note before signing.
--- NOTE | 2017-11-23 09:40 | PCM.PROGNOTE ---
Patient Problems: Active and Suspected Problems Atrial flutter (Acute) Subjective: Chief complaint: Follow-up after admission for acute hypoxic and hypercapnic respiratory failure secondary to healthcare associated pneumonia and also found to have atrial flutter with RVR. Patient seen and examined. No acute events overnight. She remained in atrial flutter with RVR, rate has been in the 130s this morning. Blood pressure stable. Respiratory status is stable on 4 L of oxygen. Other vital signs are stable. - Physical Exam General: Alert, Oriented x3, Cooperative, No apparent distress HEENT: Atraumatic, PERRLA, EOMI, Normocephalic Oral: Moist Mucosa, No Gingival or Mucosal Lesions/ Ulcerations Neck: Supple, No JVD, Negative Carotid Bruits, Trachea Midline, Thyroid Normal Size and Texture Lungs: Clear to auscultation, No rhonchi, No wheeze, No rales, Diminished Cardiovascular: Normal S1, Normal S2, No murmurs, PMI Normal, Irregular Rate, Tachycardic Abdomen: Bowel Sounds Present, Soft, Non Tender, Non-Distended, No Hepato-splenomegaly, Obese Extremities: No clubbing, No cyanosis, Edema - Trace edema. Skin: No rashes, No breakdown Lymphatic: No Cervical, Supraclavicular, or Inguinal Adenopathy Neurological: Cranial nerves II-XII grossly intact, Neuro grossly intact Psych/Mental Status: Normal Affect, Appropriate, Alert and oriented to time, place, person, mood and affect Vital Signs Temp Pulse Resp BP Pulse Ox 97.4 F L 135 H 18 144/109 H 96 11/23/17 08:00 11/23/17 09:00 11/23/17 09:00 11/23/17 09:00 11/23/17 09:00 Oxygen Flow Rate (L/min) 4 Oxygen Delivery Method Nasal Cannula Weight: 364 lb 3.258 oz Body Mass Index (BMI) 58.2 Intake and Output for Last 24 Hours 11/21/17 11/22/17 11/23/17 23:59 23:59 23:59 Intake Total 2513 / 2513 1884 / 1884 342.2 / 342.2 Output Total 1450 / 1450 850 / 850 625 / 625 Balance 1063 / 1063 1034 / 1034 -282.8 / -282.8 Microbiology Past 72 Hours 11/18/17 06:50 Blood Culture - Final Blood Culture (Wb) - Pic No growth in 5 days. 11/18/17 01:50 Gram Stain - Final Sputum, Tracheal Aspirate Respiratory Culture - Final Haemophilus influenzae 11/18/17 06:50 Urine Culture - Final Urine Catheter - Catheter Enterobacter cloacae complex Klebsiella pneumoniae sp pneum Laboratory Tests Past 24 Hrs 11/23/17 11/23/17 04:50 04:50 WBC 5.2 RBC 5.03 Hgb 14.7 Hct 49.1 H MCV 97.6 MCH 29.2 MCHC 29.9 L RDW 14.2 RDW Differential 50.6 H Plt Count 105 L MPV 10.5 Immature Gran % (Auto) 0.200 Neut % (Auto) 57.1 Lymph % (Auto) 23.6 [place] % (Auto) 15.1 H Eos % (Auto) 3.8 Baso % (Auto) 0.2 Absolute Neuts (auto) 3.0 Absolute Lymphs (auto) 1.23 Total Counted Not Reportable Sodium 144 Potassium 4.1 Chloride 103 Carbon Dioxide 34.0 H Anion Gap 7 BUN 13 Creatinine 0.83 Estim Creat Clear Calc 57.56 Est GFR (MDRD) Af Amer 87 Est GFR (MDRD) Non-Af 72 BUN/Creatinine Ratio 15.6 Glucose 87 Calcium 8.9 Medical Necessity - Tobacco Use Smoking Status: Former smoker - quit 1989 smoked x 10 years Tobacco Use: Cigarettes Assessment/Plan All Active Problems Acute respiratory failure (Acute) Healthcare-associated pneumonia (Acute) Atrial flutter (Acute) This is a 67 years old female patient admitted because of shortness of breath and chest pain, found to have healthcare associated pneumonia complicated by acute hypoxic and hypercarbic respiratory failure and she developed atrial flutter with RVR. #1 acute hypoxic and hypercapnic respiratory failure: Status post extubation. Respiratory status stabilized, remained on oxygen at 4 L. She remained in atrial flutter with RVR, rate is up to 130s. Plan to continue same treatment, plan for cardioversion later today. #2 Haemophilus influenza healthcare associated pneumonia: Remained on IV Rocephin. She has been afebrile, blood pressure stable. She remained in atrial flutter with RVR. Sputum culture revealed Haemophilus influenza. Blood cultures showed no growth in 48 hours. Urine culture revealed Enterobacter cloacae and Klebsiella pneumoniae, sensitivity reviewed. Pneumococcal and Legionella antigen were negative. Plan to continue same treatment. #3 new onset atrial flutter with RVR: Status post DC cardioversion x2. IV amiodarone and Cardizem drip discontinued. She has been on oral amiodarone and Coreg. She is back into atrial flutter with RVR. she is on Xarelto for anticoagulation. 2D echocardiogram revealed ejection fraction of 55%, the findings reviewed. Cardiology on the case. Plan for repeat cardioversion for third time later today. #5 encephalopathy: Likely metabolic secondary to pneumonia and respiratory failure. She has no focal deficit on exam. CT scan brain showed no acute findings. Today, she is alert and awake, moving all limbs. #5 acute kidney injury: Secondary to infection. She has been on IV fluids, today's creatinine is 0.83, back to normal. #6 hypertension: Blood pressure stable, she is on Coreg. #7 DVT prophylaxis: Subcu heparin. #8 GI prophylaxis: Continue Protonix. This note was generated with [employer] dictation software. It may contain incorrect words, spelling, and punctuation that were not noted in checking the note before signing. Code Visit Inpatient E&M: 97493 Subs Hosp L2
--- NOTE | 2017-11-23 09:50 | EKG12_ITS ---
Test Reason : AM EKG Blood Pressure : / mmHG Vent. Rate : 087 BPM Atrial Rate : 249 BPM P-R Int : 000 ms QRS Dur : 200 ms QT Int : 418 ms P-R-T Axes : 000 -77 -33 degrees QTc Int : 502 ms Atrial flutter with variable A-V block with premature ventricular or aberrantly conducted complexes Left axis deviation Right bundle branch block Inferior NV, age undetermined, cannot be excluded Ramon-lateral infarct, age undetermined, cannot be excluded Abnormal ECG Confirmed by CY WALKER, LEE ([id number]), features editor JERRICA HUITRON ([id number] on 11/24/2017 2:45:01 PM Referred By: ROQUE Confirmed By:LEE BENOIT MD
--- NOTE | 2017-11-23 09:50 | EKG12_ITS ---
Test Reason : POST CARDIOVERSION Blood Pressure : / mmHG Vent. Rate : 064 BPM Atrial Rate : 064 BPM P-R Int : 230 ms QRS Dur : 178 ms QT Int : 440 ms P-R-T Axes : 046 262 005 degrees QTc Int : 453 ms Sinus rhythm with 1st degree A-V block Right bundle branch block Abnormal ECG When compared with ECG of 21-NOV-2017 22:36, MANUAL COMPARISON REQUIRED, DATA IS UNCONFIRMED Confirmed by ROLF WALKER, ELIZABETH ([id number]), map editor JERRICA HUITRON ([id number]) on 11/27/2017 3:52:29 PM Referred By: ANAT Confirmed By:ELIZABETH BANSAL MD
--- NOTE | 2017-11-23 09:50 | PCM.OP.BLANK ---
Problem List (1) Acute respiratory failure Status: Acute Qualifiers: Respiratory failure complication: hypoxia and hypercapnia Qualified Code(s): J96.01 - Acute respiratory failure with hypoxia; J96.02 - Acute respiratory failure with hypercapnia (2) Healthcare-associated pneumonia Status: Acute (3) Atrial flutter Status: Acute Qualifiers: Atrial flutter type: typical Qualified Code(s): I48.3 - Typical atrial flutter (4) Morbid obesity Status: Chronic (5) HTN (hypertension) Status: Chronic Qualifiers: Hypertension type: essential hypertension Qualified Code(s): I10 - Essential (primary) hypertension (6) GERD (gastroesophageal reflux disease) Status: Chronic Qualifiers: Esophagitis presence: without esophagitis Qualified Code(s): K21.9 - Gastro-esophageal reflux disease without esophagitis Operative Report Date of Procedure: 11/23/17 CONSCIOUS SEDATION REPORT BRIEF HISTORY OF PRESENT ILLNESS: The patient is a 67-year-old [female] who presented to on 11/14/2017 and has had a complicated hospital course. The patient reports no PO intake since midnight. The patient does have a history of [obstructive sleep apnea]. The patient reports [a] history of smoking and COPD. Previous attempts at cardioversion have been unsuccessful, but patient has tolerated sedation with etomidate multiple times. The patient denies previous anesthetic complications. PHYSICAL EXAMINATION: VITAL SIGNS: Reviewed and were acceptable. GENERAL: The patient is an obese [female], in no apparent distress, speaking in full sentences. HEENT: Normocephalic, atraumatic. Mucous membranes are moist and pink. Good mouth opening noted. Trachea is midline. Good neck mobility. MP [IV] CHEST: S1, S2 irregularly irregular. No murmurs, rubs or gallops were noted. LUNGS: Clear to auscultation bilaterally without appreciable wheezes, rales or rhonchi. ABDOMEN: Soft, nontender, nondistended. Positive bowel sounds. EXTREMITIES: There is no clubbing, cyanosis or edema. ASA Class: II DESCRIPTION OF PROCEDURE: After confirmation of informed consent, the patient's anesthesia plan was reviewed in detail. [Etomidate] was chosen. Risks and benefits were reviewed and the patient agreed to proceed. At 9:40 AM, the patient was given [4 mg of etomidate]. The patient achieved an appropriate level of sedation and received 2 attempt[s] synchronized cardioversion, at [50 J and 200 J respectively] by [Dr. Hernandez] at the bedside. This was [successful] in achieving normal sinus rhythm. The patient was monitored until 9:49 AM, at which time the patient reached their baseline mental status and function. The patient tolerated the procedure well. An EKG has been ordered to confirm normal sinus rhythm. COMPLICATIONS: None ESTIMATED BLOOD LOSS: None RECOMMENDATIONS: Okay to recover in usual fashion. Patient likely go to PCU later today. Code Visit 9xxxx: Other Procedure See Report - [id number]
--- NOTE | 2017-11-23 09:53 | OP.PCM_ITS ---
Problem List (1) Acute respiratory failure Status: Acute Qualifiers: Respiratory failure complication: hypoxia and hypercapnia Qualified Code(s) : J96.01 - Acute respiratory failure with hypoxia; J96.02 - Acute respiratory failure with hypercapnia (2) Healthcare-associated pneumonia Status: Acute (3) Atrial flutter Status: Acute Qualifiers: Atrial flutter type: typical Qualified Code(s): I48.3 - Typical atrial flutter (4) Morbid obesity Status: Chronic (5) HTN (hypertension) Status: Chronic Qualifiers: Hypertension type: essential hypertension Qualified Code(s): I10 - Essential (primary) hypertension (6) GERD (gastroesophageal reflux disease) Status: Chronic Qualifiers: Esophagitis presence: without esophagitis Qualified Code(s): K21.9 - Gastro -esophageal reflux disease without esophagitis Operative Report Date of Procedure: 11/23/17 CONSCIOUS SEDATION REPORT BRIEF HISTORY OF PRESENT ILLNESS: The patient is a 67-year-old [female] who presented to [facility] on 11/14/2017 and has had a complicated hospital course. The patient reports no PO intake since midnight. The patient does have a history of [ obstructive sleep apnea]. The patient reports [a] history of smoking and COPD. Previous attempts at cardioversion have been unsuccessful, but patient has tolerated sedation with etomidate multiple times. The patient denies previous anesthetic complications. PHYSICAL EXAMINATION: VITAL SIGNS: Reviewed and were acceptable. GENERAL: The patient is an obese [female], in no apparent distress, speaking in full sentences. HEENT: Normocephalic, atraumatic. Mucous membranes are moist and pink. Good mouth opening noted. Trachea is midline. Good neck mobility. MP [IV] CHEST: S1, S2 irregularly irregular. No murmurs, rubs or gallops were noted. LUNGS: Clear to auscultation bilaterally without appreciable wheezes, rales or rhonchi. ABDOMEN: Soft, nontender, nondistended. Positive bowel sounds. EXTREMITIES: There is no clubbing, cyanosis or edema. ASA Class: II DESCRIPTION OF PROCEDURE: After confirmation of informed consent, the patient's anesthesia plan was reviewed in detail. [Etomidate] was chosen. Risks and benefits were reviewed and the patient agreed to proceed. At 9:40 AM, the patient was given [4 mg of etomidate]. The patient achieved an appropriate level of sedation and received 2 attempt[s] synchronized cardioversion, at [50 J and 200 J respectively] by [ Dr. Hernandez] at the bedside. This was [successful] in achieving normal sinus rhythm. The patient was monitored until 9:49 AM, at which time the patient reached their baseline mental status and function. The patient tolerated the procedure well. An EKG has been ordered to confirm normal sinus rhythm. COMPLICATIONS: None ESTIMATED BLOOD LOSS: None RECOMMENDATIONS: Okay to recover in usual fashion. Patient likely go to PCU later today. Code Visit 9xxxx: Other Procedure See Report - [id number]
--- NOTE | 2017-11-23 09:54 | NURSING ---
0940- 4mg etomidate IV given 0941 50J sync cardioversion- remains in aflutter 0943- 200J sync cardioversion- converts to NSR, HR 60's EKG obtained See vitals under vital sign documentation
[2017-11-23] MEDS: Pantoprazole Sodium 40 MG Tablet PO (10:57)
[2017-11-23] MEDS: Polyethylene Glycol 3350 17 GM PACKET PO ×2 (10:57→21:11)
--- NOTE | 2017-11-23 11:42 | OP.PCM_ITS ---
Problem List (1) Atrial flutter Status: Acute Qualifiers: Atrial flutter type: typical Qualified Code(s): I48.3 - Typical atrial flutter (2) Chest pain Status: Deleted (3) Shortness of breath Status: Deleted (4) HTN (hypertension) Status: Chronic Qualifiers: Hypertension type: essential hypertension Qualified Code(s): I10 - Essential (primary) hypertension (5) GERD (gastroesophageal reflux disease) Status: Chronic Qualifiers: Esophagitis presence: without esophagitis Qualified Code(s): K21.9 - Gastro -esophageal reflux disease without esophagitis (6) Morbid obesity Status: Chronic Operative Report Date of Procedure: 11/23/17 Procedure: Synchronized biphasic DC cardioversion Indications: Atrial flutter with rapid ventricular response Consent: Per the patient Premedications: Per Dr. Marshall Newman pulmonology and/critical care medicine with etomidate 4 mg IV push total Procedure: Synchronized biphasic DC cardioversion: 50 J ?1: Result: Atrial flutter Synchronized biphasic DC cardioversion: 200 J ?1: Result: Sinus rhythm Implications: No apparent complications This note was generated with [employer] software. It may contain incorrect words, spelling, and punctuation that were not noted in checking the note before signing.
[2017-11-23] MEDS: Rivaroxaban 20 MG Tablet GT (17:14)
--- NOTE | 2017-11-23 23:20 | CPS ---
PT OFFERED BIPAP FOR SLEEP TIME. PT STATES SHE HAS SOMETHING STUCK IN HER THROAT THAT IS CONTINUOUSLY MAKING HER COUGH AND SHE ISN'T WEARING IT UNTIL IT COMES OUT. NURSING AWARE.
--- NOTE | 2017-11-23 23:23 | NURSING ---
Pt. feels like she has something stuck in the back of her throat. This RN tried using the yankaur suction catheter, saltine crackers and water to help loosen whatever is stuck. Pt. states that it is still there. It is not compromising pt's airway. Pt. is 94-96% on 2L. Pt. is refusing to wear the bipap until she gets whatever is in her throat out. Respiratory also talked with pt. and is aware.
[2017-11-24] VITALS (29 sets, daily range): BP systolic 95–155; BP diastolic 41–118; PULSE 60–131; RESP 12–23; TEMP 36.1–36.9; O2SAT 92–100
[2017-11-24] MEDS: CHLORHEXIDINE GLUC 2% CLOTH 1 EACH TOWELETTE TOPICAL (04:09)
[2017-11-24] MEDS: 0.9% NaCl PICC Flush IV ×2 (04:13→06:29)
--- NOTE | 2017-11-24 06:02 | EKG12_ITS ---
Test Reason : Blood Pressure : / mmHG Vent. Rate : 128 BPM Atrial Rate : 128 BPM P-R Int : 088 ms QRS Dur : 144 ms QT Int : 380 ms P-R-T Axes : 000 263 045 degrees QTc Int : 554 ms Atrial flutter Right bundle branch block Inferior infarct , age undetermined , cannot be excluded Abnormal ECG Confirmed by CY WALKER, LEE ([id number]), video effects editor JERRICA HUITRON ([id number]) on 11/24/2017 2:44:33 PM Referred By: Confirmed By:LEE BENOIT MD
--- NOTE | 2017-11-24 06:45 | PN_ITS ---
Subjective: Patient did okay overnight. Patient has been improving on supplemental oxygen needs. Patient has been reporting a fullness in the back of her throat leading to multiple episodes of clearing. Patient refused BiPAP overnight as she feels this is exacerbating the condition. At 5:45 AM, patient transitioned back into a flutter with RVR. Patient did receive amiodarone and Cardizem yesterday. Patient reports palpitations this morning, but no other symptoms. General: Alert, Oriented x3, Cooperative, No apparent distress, - - Morbidly obese. Speaking in full sentences. HEENT: Atraumatic, PERRLA, EOMI, Normocephalic, - - Scleral injection without icterus Oral: Moist Mucosa, No Gingival or Mucosal Lesions/ Ulcerations Neck: Supple, No JVD, No Nodes, Trachea Midline Lungs: No rhonchi, No wheeze, No rales, Diminished, - - Symmetric expansion. No dullness to percussion. Cardiovascular: Normal S1, Normal S2, No murmurs, Irregular Rate, No rub noted, No Gallop, Tachycardic Abdomen: Bowel Sounds Present, Soft, Non Tender, Non-Distended Extremities: No clubbing, No cyanosis, Capillary Refill Less than 3 Seconds, Edema Skin: No rashes, No breakdown Musculoskeletal: No Tenderness to Palpation of Joints or Extremities Lymphatic: No Cervical, Supraclavicular, or Inguinal Adenopathy Neurological: Cranial nerves II-XII grossly intact, Neuro grossly intact, Motor Exam 5/5 strength throughout Psych/Mental Status: Alert and oriented to time, place, person, mood and affect Vital Signs Temp Pulse Resp BP Pulse Ox 36.3 C L 125 H 17 136/90 H 95 11/24/17 04:00 11/24/17 06:00 11/24/17 06:00 11/24/17 06:00 11/24/17 06:00 Oxygen Flow Rate (L/min) 2 Oxygen Delivery Method Nasal Cannula Weight: 166.5 kg Body Mass Index (BMI) 58.2 Intake and Output for Last 24 Hours 11/22/17 11/23/17 11/24/17 23:59 23:59 23:59 Intake Total 1884 / 1884 1352.2 / 1352.2 120 / 120 Output Total 850 / 850 2925 / 2925 375 / 375 Balance 1034 / 1034 -1572.8 / -1572.8 -255 / -255 Labs (Last 48 Hours) 11/23/17 11/23/17 11/24/17 04:50 04:50 06:25 WBC 5.2 RBC 5.03 Hgb 14.7 Hct 49.1 H MCV 97.6 MCH 29.2 MCHC 29.9 L RDW 14.2 RDW Differential 50.6 H Plt Count 105 L MPV 10.5 Immature Gran % (Auto) 0.200 Neut % (Auto) 57.1 Lymph % (Auto) 23.6 [place] % (Auto) 15.1 H Eos % (Auto) 3.8 Baso % (Auto) 0.2 Absolute Neuts (auto) 3.0 Absolute Lymphs (auto) 1.23 Total Counted Not Reportable Sodium 144 Pending Potassium 4.1 Pending Chloride 103 Pending Carbon Dioxide 34.0 H Pending Anion Gap 7 Pending BUN 13 Pending Creatinine 0.83 Pending Estim Creat Clear Calc 57.56 Est GFR (MDRD) Af Amer 87 Pending Est GFR (MDRD) Non-Af 72 Pending BUN/Creatinine Ratio 15.6 Pending Glucose 87 Pending Calcium 8.9 Pending Phosphorus Pending Magnesium Pending Microbiology 11/18/17 06:50 Blood Culture (Wb) - Pic Blood Culture - Final No growth in 5 days. Medical Necessity - Tobacco Use Smoking Status: Former smoker - quit 1989 smoked x 10 years Tobacco Use: Cigarettes Assessment/Plan All Active Problems Acute respiratory failure (Acute) Healthcare-associated pneumonia (Acute) Atrial flutter (Acute) RECOMMENDATIONS: 1. Wean oxygen as tolerated 2. Complete course of ceftriaxone 3. Continue BiPAP with sleep 4. Increase activity as tolerated 5. Continue Xarelto 6. Obtain electrolytes with supplementation as indicated IMPRESSIONS: 1. Acute hypoxemic and hypercarbic respiratory failure secondary to healthcare associated pneumonia/pulmonary edema Patient appears to be doing well from a respiratory standpoint. Patient remains on minimal supplemental oxygen. Patient was not compliant with BiPAP overnight. Clinical suspicion that this led to the development of a flutter. Patient will complete antibiotic course with ceftriaxone from polymicrobial pneumonia. Chest pain was improved with staying awake during the day and not requiring BiPAP rescue. Patient did receive Lasix yesterday with good diuretic response 2. Encephalopathy RESOLVED > as noted above, etiology for the patient's encephalopathy was likely secondary to hypercarbia. However, the exact reason for her acute hypercapnia remains a bit unclear. Patient appears to be mentating well. ABG shows adequate ventilation 3. Atrial flutter with rapid ventricular response/underlying cardiomyopathy Patient with failed cardioversion previously. Patient did undergo successful cardioversion yesterday. Unfortunately, rhythm decompensated this morning. Will obtain electrolytes with repletion as necessary. Patient will likely require an outpatient EP evaluation for ablation. Clinical suspicion for elevated right ventricular and right atrial pressures leading to arrhythmia. 4. Suspected sleep disordered breathing The patient undoubtedly needs to be followed up as an outpatient to undergo a formal diagnostic polysomnogram. Continue empiric BiPAP for now with all sleep. 5. Acute kidney injury RESOLVED > urine output has remained appropriate. Patient did respond well to discontinuation of TOÑA inhibitor and diuretic therapy. No indication for renal replacement therapy at this time. 6. Super morbid obesity/GERD/hypertension Complicates care, management, recovery and prognosis. Code Visit Inpatient E&M: 55571 Subs Hosp L3
[2017-11-24 07:01] LABS: Anion Gap 2 (5-15); BUN 12 mg/dL (7-18); BUN/Creat Ratio 15.1 RATIO (10-20); Calcium,Total 8.7 mg/dL (8.5-10.1); Chloride 100 mmol/L (98-107); Creatinine, Serum 0.79 mg/dL (0.55-1.02); EST Glomerular Filtration Rate 76 mL/min (>60); Est Glom Filt Rate - Afr Amer 92 mL/min (>60); Estimated Creatinine Clearance 47.78 ml/min; Glucose 89 mg/dL (74-106); Magnesium 2.3 mg/dL (1.6-2.6); Phosphorus 3.6 mg/dL (2.5-4.9); Potassium 3.7 mmol/L (3.5-5.1); Sodium Level 140 mmol/L (136-145)
[2017-11-24] MEDS: Amiodarone 200 MG Tablet PO (08:08)
[2017-11-24] MEDS: Carvedilol 3.125 MG TABLET PO ×2 (08:09→22:54)
--- NOTE | 2017-11-24 08:22 | PN_ITS ---
Patient Problems: Active and Suspected Problems Atrial flutter (Acute) Subjective: Chief complaint: Follow-up after admission for acute hypoxic and hypercapnic respiratory failure secondary to healthcare associated pneumonia and recurrent atrial flutter with RVR status post cardioversion ?3. Patient seen and examined. No acute events overnight. This morning, she flipped back into atrial flutter with RVR. She complains of some palpitation intermittently. Denied chest pain or shortness of breath. Denied dizziness or lightheadedness. Heart rate is in the 130s, other vital signs are stable. - Physical Exam General: Alert, Oriented x3, Cooperative, No apparent distress HEENT: Atraumatic, PERRLA, EOMI, Normocephalic Oral: Moist Mucosa, No Gingival or Mucosal Lesions/ Ulcerations Neck: Supple, No JVD, Negative Carotid Bruits, Trachea Midline, Thyroid Normal Size and Texture Lungs: Clear to auscultation, No rhonchi, No wheeze, No rales, Diminished Cardiovascular: Normal S1, Normal S2, No murmurs, PMI Normal, Irregular Rate, Tachycardic Abdomen: Bowel Sounds Present, Soft, Non Tender, Non-Distended, No Hepato- splenomegaly, Obese Extremities: No clubbing, No cyanosis, Edema - Trace edema Skin: No rashes, No breakdown Lymphatic: No Cervical, Supraclavicular, or Inguinal Adenopathy Neurological: Cranial nerves II-XII grossly intact, Neuro grossly intact Psych/Mental Status: Normal Affect, Appropriate, Alert and oriented to time, place, person, mood and affect Vital Signs Temp Pulse Resp BP Pulse Ox 97.4 F L 125 H 17 136/90 H 95 11/24/17 04:00 11/24/17 06:00 11/24/17 06:00 11/24/17 06:00 11/24/17 06:00 Oxygen Flow Rate (L/min) 2 Oxygen Delivery Method Nasal Cannula Weight: 367 lb 1.114 oz Body Mass Index (BMI) 58.2 Intake and Output for Last 24 Hours 11/22/17 11/23/17 11/24/17 23:59 23:59 23:59 Intake Total 1884 / 1884 1352.2 / 1352.2 120 / 120 Output Total 850 / 850 2925 / 2925 375 / 375 Balance 1034 / 1034 -1572.8 / -1572.8 -255 / -255 Microbiology Past 72 Hours 11/18/17 06:50 Blood Culture - Final Blood Culture (Wb) - Pic No growth in 5 days. 11/18/17 01:50 Gram Stain - Final Sputum, Tracheal Aspirate Respiratory Culture - Final Haemophilus influenzae Laboratory Tests Past 24 Hrs 11/24/17 06:25 Sodium 140 Potassium 3.7 Chloride 100 Carbon Dioxide 38.0 H Anion Gap 2 L BUN 12 Creatinine 0.79 Estim Creat Clear Calc 47.78 Est GFR (MDRD) Af Amer 92 Est GFR (MDRD) Non-Af 76 BUN/Creatinine Ratio 15.1 Glucose 89 Calcium 8.7 Phosphorus 3.6 Magnesium 2.3 Medical Necessity - Tobacco Use Smoking Status: Former smoker - quit 1989 smoked x 10 years Tobacco Use: Cigarettes Assessment/Plan All Active Problems Acute respiratory failure (Acute) Healthcare-associated pneumonia (Acute) Atrial flutter (Acute) This is a 67 years old female patient admitted because of shortness of breath and chest pain, found to have healthcare associated pneumonia complicated by acute hypoxic and hypercarbic respiratory failure and she developed atrial flutter with RVR. #1 acute hypoxic and hypercapnic respiratory failure: Status post extubation. Respiratory status stabilized, oxygen requirement has been decreasing, she is down to 2 L. She flipped back into atrial flutter with RVR. Plan to continue same treatment, possible transfer to PCU today. #2 Haemophilus influenza healthcare associated pneumonia: Remained on IV Rocephin. She has been afebrile, blood pressure stable. She remained in atrial flutter with RVR. Sputum culture revealed Haemophilus influenza. Blood cultures showed no growth in 48 hours. Urine culture revealed Enterobacter cloacae and Klebsiella pneumoniae, sensitivity reviewed. Pneumococcal and Legionella antigen were negative. Plan to continue same treatment. #3 new onset atrial flutter with RVR: Status post DC cardioversion x3. She flew back into a flutter with RVR this morning. She is on Coreg and amiodarone orally. She is on Xarelto for anticoagulation. 2D echocardiogram revealed ejection fraction of 55%, the findings reviewed. Cardiology on the case. #5 encephalopathy: Likely metabolic secondary to pneumonia and respiratory failure. She has no focal deficit on exam. CT scan brain showed no acute findings. Today, she is alert and awake, moving all limbs. #5 acute kidney injury: Secondary to infection. She has been on IV fluids, today's creatinine is 0.79, back to normal. #6 hypertension: Blood pressure stable, she is on Coreg. #7 DVT prophylaxis: Continue Xarelto. #8 GI prophylaxis: Continue Protonix. This note was generated with [employer] dictation software. It may contain incorrect words, spelling, and punctuation that were not noted in checking the note before signing. Code Visit Inpatient E&M: 90161 Subs Hosp L2
[2017-11-24] MEDS: dilTIAZem 25 MG/5 ML Vial 10 MG IV BOLUS (09:36)
[2017-11-24] MEDS: Polyethylene Glycol 3350 17 GM PACKET PO (09:36)
[2017-11-24] MEDS: Pantoprazole Sodium 40 MG Tablet PO (09:37)
--- NOTE | 2017-11-24 10:04 | CASEMGMT ---
SW spoke w/pt prior to rounds this morning. Pt states her granddaughter who is 22 and her daughter, who is 3, live w/her. She states her granddaughter is also and due in December. Pt states they cannot continue to live w/her as she cannot care for them. SW inquired why her granddaughter thinks she needs to care for her and her granddaughter's children. Pt states she does not know. SW advised she needs to have a conversation w/her granddaughter about moving out. Pt states she has, but her granddaughter does not listen. SW inquired if she has applied for [employer] or been to [facility], pt states her granddaughter has done nothing. Pt states she has also spoken w/her granddaughter's mother (pt's daughter) about this, and she is also not listening to pt that the granddaughter and children need to move out. Pt states she needs someone to care for her, she cannot care for anyone else. SW offered supportive listening to pt. SW inquired if her granddaughter has been in to visit, she states once. Her daughter has been in a few times however. SW let pt know if her daughter comes in and she would like SW to assist in a family meeting regarding this, to let the RN know and SW is available to meet w/pt and daughter, or granddaughter. Pt states understanding. Pt states her daughter Jessica(a different daughter, pt has 5 children) goes between staying w/pt and her boyfriend, and pt wants Jessica to move in and take care of pt. JOSE GUADALUPE then spoke w/pt about completing POA forms. Pt agreeable. Pt completed POA, LW, and organ donation form--this form was mailed to [employer]. Pt put her daughter Jessica([phone]) as POA, and her sons as alternates. SW gave pt originals and copies for the children on the forms, and placed a copy on the chart. Pt's daughter Jessica and came in, pt asked SW to complete forms with . SW is not able to do this at this time, but did give blank POA forms to complete. SW placed green sheet on the chart in anticipation of weekend discharge to TCU. SW is available to speak w/pt and family, should pt's other daughter or granddaughter come to visit. PAIGE Grace, ELECTION ASSISTANT
[2017-11-24] MEDS: Rivaroxaban 20 MG Tablet GT (18:07)
[2017-11-25] VITALS (28 sets, daily range): BP systolic 101–177; BP diastolic 56–135; PULSE 71–130; RESP 12–19; TEMP 36.2–36.9; O2SAT 91–98
[2017-11-25] MEDS: Metoprolol Tartrate 5 MG/5 ML Vial IV ×2 (00:53→06:14)
[2017-11-25] MEDS: 0.9% NaCl Peripheral Flush Adult/Peds IV (06:14)
--- NOTE | 2017-11-25 07:54 | PN_ITS ---
Patient Problems: Active and Suspected Problems Atrial flutter (Acute) Subjective: Chief complaint: Follow-up after admission for acute hypoxic and hypercapnic respiratory failure secondary to healthcare associated pneumonia and recurrent atrial flutter with RVR status post cardioversion ?3. Patient seen and examined. No acute events overnight. She denies any significant complaints. Her breathing is stable. Denied chest pain or palpitation. She remained in atrial flutter with RVR, started back on IV amiodarone drip. Other vital signs are stable. - Physical Exam General: Alert, Oriented x3, Cooperative, No apparent distress HEENT: Atraumatic, PERRLA, EOMI, Normocephalic Oral: Moist Mucosa, No Gingival or Mucosal Lesions/ Ulcerations Neck: Supple, No JVD, Negative Carotid Bruits, Trachea Midline, Thyroid Normal Size and Texture Lungs: No wheeze, No rales, Diminished, Rhonchi, - - Decreased breath sounds bilateral, more at the bases, scattered rhonchi. Cardiovascular: Normal S1, Normal S2, No murmurs, PMI Normal, Irregular Rate, Tachycardic Abdomen: Bowel Sounds Present, Soft, Non Tender, Non-Distended, No Hepato- splenomegaly, Obese Extremities: No clubbing, No cyanosis, Edema - ++ Edema. Skin: No rashes, No breakdown Lymphatic: No Cervical, Supraclavicular, or Inguinal Adenopathy Neurological: Cranial nerves II-XII grossly intact, Neuro grossly intact Psych/Mental Status: Normal Affect, Appropriate, Alert and oriented to time, place, person, mood and affect Vital Signs Temp Pulse Resp BP Pulse Ox 97.2 F L 102 H 15 108/84 H 91 11/25/17 03:00 11/25/17 07:00 11/25/17 07:00 11/25/17 07:00 11/25/17 07:00 Oxygen Flow Rate (L/min) 2 Oxygen Delivery Method Nasal Cannula Weight: 358 lb 14.601 oz Body Mass Index (BMI) 58.2 Intake and Output for Last 24 Hours 11/23/17 11/24/17 11/25/17 23:59 23:59 23:59 Intake Total 1352.2 / 1352.2 1495 / 1495 120 / 120 Output Total 2925 / 2925 675 / 675 Balance -1572.8 / -1572.8 820 / 820 120 / 120 Microbiology Past 72 Hours 11/18/17 06:50 Blood Culture - Final Blood Culture (Wb) - Pic No growth in 5 days. Medical Necessity - Tobacco Use Smoking Status: Former smoker - quit 1989 smoked x 10 years Tobacco Use: Cigarettes Assessment/Plan All Active Problems Acute respiratory failure (Acute) Healthcare-associated pneumonia (Acute) Atrial flutter (Acute) This is a 67 years old female patient admitted because of shortness of breath and chest pain, found to have healthcare associated pneumonia complicated by acute hypoxic and hypercarbic respiratory failure and she developed atrial flutter with RVR. #1 acute hypoxic and hypercapnic respiratory failure: Status post extubation. She has been on oxygen by nasal cannula during daytime, tolerating BiPAP at night. Respiratory status stabilized, oxygen requirement has been decreasing, she is down to 2 L. #2 Haemophilus influenza healthcare associated pneumonia: Completed 5 days of IV Rocephin. She has been afebrile, blood pressure stable. She remained in atrial flutter with RVR. Sputum culture revealed Haemophilus influenza. Blood cultures showed no growth in 48 hours. Urine culture revealed Enterobacter cloacae and Klebsiella pneumoniae, sensitivity reviewed. Pneumococcal and Legionella antigen were negative. #3 new onset atrial flutter with RVR: Status post DC cardioversion x3. Started back on IV amiodarone drip, continued on Coreg. She is on Xarelto for anticoagulation. 2D echocardiogram revealed ejection fraction of 55%, the findings reviewed. Cardiology on the case. #5 encephalopathy: Likely metabolic secondary to pneumonia and respiratory failure. She has no focal deficit on exam. CT scan brain showed no acute findings. Today, she is alert and awake, moving all limbs. #5 acute kidney injury: Secondary to infection. Kidney function is back to normal. IV fluids discontinued. #6 hypertension: Blood pressure stable, she is on Coreg. #7 DVT prophylaxis: Continue Xarelto. #8 GI prophylaxis: Continue Protonix. This note was generated with [employer] dictation software. It may contain incorrect words, spelling, and punctuation that were not noted in checking the note before signing. Code Visit Inpatient E&M: 00975 Subs Hosp L2
--- NOTE | 2017-11-25 08:36 | PCM.PROGNOTE ---
Patient Problems: Active and Suspected Problems Atrial flutter (Acute) Subjective: Patient transferred out of the intensive care unit yesterday. Patient reportedly did have some blood with recent bowel movement, but denies any diarrhea, abdominal pain, nausea or vomiting. Patient did tolerate BiPAP therapy overnight and reports good rest. Patient does report occasional palpitations and telemetry shows continued a flutter with RVR. - Physical Exam General: Alert, Oriented x3, Cooperative, No apparent distress, - - Morbidly obese. Speaking in full sentences. HEENT: Atraumatic, PERRLA, EOMI, Normocephalic, - - No scleral icterus or injection noted. Nasal cannula in place. Oral: Moist Mucosa, No Gingival or Mucosal Lesions/ Ulcerations, - - Mallampati 4 Neck: Supple, No JVD, No Nodes, Trachea Midline Lungs: No rhonchi, No wheeze, No rales, Diminished, - - Symmetric expansion Cardiovascular: Normal S1, Normal S2, No murmurs, No rub noted, No Gallop, Tachycardic Abdomen: Bowel Sounds Present, Soft, Non Tender, Non-Distended, Obese Extremities: No clubbing, No cyanosis, Edema - Improved from previous Skin: - - No significant change from previous Musculoskeletal: No Tenderness to Palpation of Joints or Extremities Lymphatic: No Cervical, Supraclavicular, or Inguinal Adenopathy Neurological: Cranial nerves II-XII grossly intact, Neuro grossly intact, Motor Exam 5/5 strength throughout Psych/Mental Status: Alert and oriented to time, place, person, mood and affect Vital Signs Temp Pulse Resp BP Pulse Ox 36.2 C L 102 H 15 108/84 H 92 11/25/17 03:00 11/25/17 07:00 11/25/17 07:00 11/25/17 07:00 11/25/17 07:15 Oxygen Flow Rate (L/min) 2 Oxygen Delivery Method Nasal Cannula Weight: 162.8 kg Body Mass Index (BMI) 58.2 Intake and Output for Last 24 Hours 11/23/17 11/24/17 11/25/17 23:59 23:59 23:59 Intake Total 1352.2 / 1352.2 1495 / 1495 120 / 120 Output Total 2925 / 2925 675 / 675 Balance -1572.8 / -1572.8 820 / 820 120 / 120 Microbiology Past 72 Hours 11/18/17 06:50 Blood Culture - Final Blood Culture (Wb) - Pic No growth in 5 days. Medical Necessity - Tobacco Use Smoking Status: Former smoker - quit 1989 smoked x 10 years Tobacco Use: Cigarettes Assessment/Plan All Active Problems Acute respiratory failure (Acute) Healthcare-associated pneumonia (Acute) Atrial flutter (Acute) RECOMMENDATIONS: 1. Wean oxygen as tolerated 2. No further antibiotics indicated 3. Continue BiPAP with sleep 4. Increase activity as tolerated 5. Continue Xarelto 6. Repeat BMP and CBC in a.m. IMPRESSIONS: 1. Acute hypoxemic and hypercarbic respiratory failure secondary to healthcare associated pneumonia/pulmonary edema Patient appears to be doing well from a respiratory standpoint. Patient remains on minimal supplemental oxygen. Patient was compliant with BiPAP overnight. Patient did receive Lasix therapy with good response. Patient has completed antibiotic course for pneumonia. Patient would benefit from outpatient pulmonary function testing. Continue to monitor patient weights and give diuretic as necessary. Patient does appear to have cor pulmonale and will likely be highly fluid sensitive. 2. Encephalopathy RESOLVED > as noted above, etiology for the patient's encephalopathy was likely secondary to hypercarbia. However, the exact reason for her acute hypercapnia remains a bit unclear. Patient appears to be mentating well. ABG shows adequate ventilation 3. Atrial flutter with rapid ventricular response/underlying cardiomyopathy Patient with failed 3 cardioversions previously. Cardiology currently following. Patient will likely require outpatient EP evaluation. Rest of the patient the importance of compliance with BiPAP therapy and avoiding decompensation 4. Suspected sleep disordered breathing The patient undoubtedly needs to be followed up as an outpatient to undergo a formal diagnostic polysomnogram. Continue empiric BiPAP for now with all sleep. 5. Acute kidney injury RESOLVED > urine output has remained appropriate. Patient did respond well to discontinuation of TOÑA inhibitor and diuretic therapy. No indication for renal replacement therapy at this time. 6. Super morbid obesity/GERD/hypertension Complicates care, management, recovery and prognosis. Code Visit Inpatient E&M: 79998 Subs Hosp L2
--- NOTE | 2017-11-25 09:02 | PCM.PN.CARD ---
Subjectve: Sitting up in chair. No complaints. Still tachycardic with ventricular rate in the 130s Objective: Vital Signs Temp Pulse Resp BP Pulse Ox 97.2 F L 128 H 18 128/95 H 94 11/25/17 03:00 11/25/17 08:00 11/25/17 08:00 11/25/17 08:00 11/25/17 08:00 Oxygen Flow Rate (L/min) 2 Oxygen Delivery Method Nasal Cannula Weight: 162.8 kg Body Mass Index (BMI) 58.2 Intake and Output for Last 24 Hours 11/23/17 11/24/17 11/25/17 23:59 23:59 23:59 Intake Total 1352.2 / 1352.2 1495 / 1495 120 / 120 Output Total 2925 / 2925 675 / 675 Balance -1572.8 / -1572.8 820 / 820 120 / 120 General: Awake, Alert, Oriented x 3, No Acute Distress, Obese HEENT: Atraumatic, Normocephalic Neck: Supple Lungs: Diminished Randall Bases Cardiovascular: Regular Rhythm, Normal S1, Normal S2 Abdomen: Soft Extremities: Bilateral Edema +2 Psych/Mental Status: Appropriate Rhythm: Atrial flutter with rapid ventricular response EKG: ECHO: Stress Test: Cardiac Cath: PCI: CT Surgery: Holter monitor: EPS: PPM: CXR: Chest CT Scan: Medical Necessity - Tobacco Use Smoking Status: Former smoker - quit 1989 smoked x 10 years Tobacco Use: Cigarettes Assessment/Plan 1. Atrial flutter with rapid ventricular response. Stop carvedilol. Start on metoprolol 25 mg 3 times daily and titrate upward as tolerated. Start on diltiazem. Already started on anticoagulation. If the heart rate is controlled with the beta blockers and calcium channel blockers, then will discontinue amiodarone infusion next 2. Morbid obesity 3. Sleep apnea disorder 4. Pneumonia
[2017-11-25] MEDS: Carvedilol 3.125 MG TABLET PO (09:23)
[2017-11-25] MEDS: Pantoprazole Sodium 40 MG Tablet PO (09:24)
[2017-11-25] MEDS: Metoprolol Tartrate 25 MG Tablet PO ×2 (10:36→21:08)
[2017-11-25] MEDS: dilTIAZem 60 MG Tablet PO ×2 (10:36→21:08)
[2017-11-25] MEDS: Rivaroxaban 20 MG Tablet GT (17:25)
[2017-11-26] VITALS (8 sets, daily range): BP systolic 139–145; BP diastolic 81–98; PULSE 68–110; RESP 12–16; TEMP 36.6; O2SAT 92–96
[2017-11-26] MEDS: Metoprolol Tartrate 25 MG Tablet PO (05:14)
[2017-11-26] MEDS: dilTIAZem 60 MG Tablet PO (05:14)
[2017-11-26 06:14] LABS: Absolute Lymphocyte Count 1.72 X10^3/ul (0.83-4.51); Absolute Neutrophil Count 3.7 X10^3/uL (2.0-7.7); Basophil# 0.01 X10^3/uL; Basophil% 0.2 % (0-1); Eosinophil# 0.32 X10^3/uL; Eosinophils% 4.8 % (0-5); Hematocrit 46.7 % (37-47); Hemoglobin 14.3 g/dl (12.0-15.0); Lymphocyte # 1.72 X10^3/ul (4.0); Lymphocyte % 25.9 % (19-41); Mean Corp Hgb Conc 30.6 g/gl (32-36); Mean Corpuscular Hgb 29.7 pg (27.0-32.0); Mean Corpuscular Volume 96.9 fL (81-99); Monocyte# 0.92 X10^3/uL; Monocyte% 13.8 % (0-10); Neutrophil # 3.67 X10^3/uL (2.7-7.7); Neutrophil % 55.1 % (47-70); Platelet Count 147 K/mm3 (150-450); RBC Distribution Width CV 13.9 % (11.6-14.6); RBC Distribution Width SD 48.2 fl (35.1-43.9); Red Blood Count 4.82 M/mm3 (4.2-5.4); White Blood Count 6.7 K/mm3 (4.4-11.0)
[2017-11-26 06:18] LABS: POSITIVE COUNT NO; POSITIVE DIFFERENTIAL NO; POSITIVE MORPHOLOGY NO
[2017-11-26 06:29] LABS: Anion Gap 7 (5-15); BUN 12 mg/dL (7-18); Calcium,Total 8.6 mg/dL (8.5-10.1); Chloride 100 mmol/L (98-107); Creatinine, Serum 0.86 mg/dL (0.55-1.02); EST Glomerular Filtration Rate 69 mL/min (>60); Est Glom Filt Rate - Afr Amer 84 mL/min (>60); Estimated Creatinine Clearance 55.55 ml/min; Glucose 86 mg/dL (74-106); Sodium Level 144 mmol/L (136-145)
--- NOTE | 2017-11-26 08:09 | PCM.PROGNOTE ---
Patient Problems: Active and Suspected Problems Atrial flutter (Acute) Subjective: Patient did well overnight. No acute issues were reported. Patient states that she has been able to walk around the room and feels that her strength is improving. Patient continues to have a flutter with RVR. Patient denies any chest pain, but there is no palpitations. - Physical Exam General: Alert, Oriented x3, Cooperative, No apparent distress, - - Morbidly obese. Speaking in full sentences. HEENT: Atraumatic, PERRLA, EOMI, Normocephalic, - - No scleral icterus or injection noted. Oral: Moist Mucosa, No Gingival or Mucosal Lesions/ Ulcerations, - - Mallampati 4 Neck: Supple, No JVD, No Nodes, Trachea Midline Lungs: No rhonchi, No wheeze, No rales, Diminished, - - Symmetric expansion. No dullness to percussion. Cardiovascular: Normal S1, Normal S2, No murmurs, Irregular Rate, No rub noted, No Gallop, Tachycardic Abdomen: Bowel Sounds Present, Soft, Non Tender, Non-Distended, Obese Extremities: No clubbing, No cyanosis, Edema Skin: No rashes, No breakdown Musculoskeletal: No Tenderness to Palpation of Joints or Extremities Lymphatic: No Cervical, Supraclavicular, or Inguinal Adenopathy Neurological: Cranial nerves II-XII grossly intact, Neuro grossly intact, Motor Exam 5/5 strength throughout Psych/Mental Status: Alert and oriented to time, place, person, mood and affect Vital Signs Temp Pulse Resp BP Pulse Ox 36.6 C 84 15 145/98 H 92 11/26/17 03:05 11/26/17 07:00 11/26/17 03:40 11/26/17 03:05 11/26/17 07:30 Oxygen Flow Rate (L/min) 2 Oxygen Delivery Method Nasal Cannula Weight: 163.7 kg Body Mass Index (BMI) 58.2 Intake and Output for Last 24 Hours 11/24/17 11/25/17 11/26/17 23:59 23:59 23:59 Intake Total 1495 / 1495 652 / 652 400 / 400 Output Total 675 / 675 200 / 200 750 / 750 Balance 820 / 820 452 / 452 -350 / -350 Microbiology Past 72 Hours 11/18/17 06:50 Blood Culture - Final Blood Culture (Wb) - Pic No growth in 5 days. Laboratory Tests Past 24 Hrs 11/26/17 11/26/17 05:49 05:49 WBC 6.7 RBC 4.82 Hgb 14.3 Hct 46.7 MCV 96.9 MCH 29.7 MCHC 30.6 L RDW 13.9 RDW Differential 48.2 H Plt Count 147 L MPV 10.0 Immature Gran % (Auto) 0.200 Neut % (Auto) 55.1 Lymph % (Auto) 25.9 [place] % (Auto) 13.8 H Eos % (Auto) 4.8 Baso % (Auto) 0.2 Absolute Neuts (auto) 3.7 Absolute Lymphs (auto) 1.72 Total Counted Not Reportable Sodium 144 Potassium 4.0 Chloride 100 Carbon Dioxide 37.0 H Anion Gap 7 BUN 12 Creatinine 0.86 Estim Creat Clear Calc 55.55 Est GFR (MDRD) Af Amer 84 Est GFR (MDRD) Non-Af 69 BUN/Creatinine Ratio 14.0 Glucose 86 Calcium 8.6 Medical Necessity - Tobacco Use Smoking Status: Former smoker - quit 1989 smoked x 10 years Tobacco Use: Cigarettes Assessment/Plan All Active Problems Acute respiratory failure (Acute) Healthcare-associated pneumonia (Acute) Atrial flutter (Acute) RECOMMENDATIONS: 1. Wean oxygen as tolerated 2. Intermittent diuretic therapy 3. Continue BiPAP with sleep for chronic respiratory failure 4. Increase activity as tolerated 5. Continue Xarelto 6. Repeat BMP and CBC in a.m. IMPRESSIONS: 1. Acute hypoxemic and hypercarbic respiratory failure secondary to healthcare associated pneumonia/pulmonary edema Patient appears to be doing well from a respiratory standpoint. Patient remains on minimal supplemental oxygen. Patient was compliant with BiPAP overnight. Patient will likely require Lasix therapy intermittently to keep euvolemic. Some caution given elevated pulmonary artery pressures as RV is typically very volume sensitive. ABG showed CO2 retention at baseline. A room air ABG would be helpful for evaluation of obesity hypoventilation syndrome. Patient should have BiPAP therapy at night secondary to chronic respiratory failure. 2. Encephalopathy RESOLVED > as noted above, etiology for the patient's encephalopathy was likely secondary to hypercarbia. However, the exact reason for her acute hypercapnia remains a bit unclear. Patient appears to be mentating well. ABG shows adequate ventilation 3. Atrial flutter with rapid ventricular response/underlying cardiomyopathy Patient with failed 3 cardioversions previously. Cardiology currently following. Patient will likely require outpatient EP evaluation. Did discuss with patient the importance of compliance with BiPAP therapy and avoiding decompensation 4. Suspected sleep disordered breathing The patient undoubtedly needs to be followed up as an outpatient to undergo a formal diagnostic polysomnogram. Continue empiric BiPAP for now with all sleep. 5. Acute kidney injury RESOLVED > urine output has remained appropriate. Patient did respond well to discontinuation of TOÑA inhibitor and diuretic therapy. No indication for renal replacement therapy at this time. 6. Super morbid obesity/GERD/hypertension Complicates care, management, recovery and prognosis. Code Visit Inpatient E&M: 30955 Subs Hosp L2
[2017-11-26] MEDS: Pantoprazole Sodium 40 MG Tablet PO (10:00)
--- NOTE | 2017-11-26 10:14 | PCM.TXEXTCAR ---
- Diet 11/23/17 10:56 Diet: Cardiac/Low Cholesterol Is pt able to select menu?: Yes - Routine Orders/Code Status O2 Liters per Minute: 2 O2 Frequency: Continuous Keep PO Greater than or Equal to (%): 92 - Wound(s) mid back skin fold Wound Type: Abrasion - Suggestions for Active Care Change Position every (hours): 3 Hours to sit in a chair: 2 Times a day to sit in chair: 3 - Therapies Weight Bearing: Weight bearing as tolerated Physical Therapy: Eval and Treat Occupational Therapy: Eval and Treat - Allergies/Procedures Done in Hospital Allergies/Adverse Reactions: Allergies aspirin [ASA] Adverse Reaction (Verified 11/14/17 14:34) stomach burning and sick to stomach propoxyphene HCl [From Darvon] Adverse Reaction (Verified 11/14/17 14:34) i get dizzy and pass out - Type of Care/Length of Stay Estimated LOS: Convalescent Care Less Than 30 days Type of Care Needed: Skilled Rehab Potential: Good Prognosis: Good - Additional Orders/Day of Discharge Additional Orders: Continue BIPAP with same current settings and keep O2 sat in low 90s. H&P will serve as current which was dated: 11/14/17 Day of Discharge: 11/26/17 - Follow Up Care Primary Care Physician: Alfonzo Cha MD [Primary Care Provider] - Please follow up with your Primary Care Physician in: 1-2 weeks. Please Follow Up With: Marshall Newman MD When: call his office. Please Follow Up With: Cornelio Hernandez MD When: call his office.
[2017-11-26] MEDS: dilTIAZem CD 240 MG Capsule PO (11:32)
--- NOTE | 2017-11-26 12:53 | NURSING ---
Valarie ORTIZ in TCU called this RN stating that new cardizem order was not transferred correctly and that the old order was still active on her orders. Valarie ORTIZ stated that if MD could call and give the verbal order, that would be effective. This RN called Dr Canales to explain situation and give verbal order. Dr Canales stated to continue the order that Valarie ORTIZ has on her orders instead of the new order and have the pt follow up with Mary in 1 week. This information was then relayed to Valarie ORTIZ in TCU.
--- NOTE | 2017-11-26 14:53 | PCM.DC.SUM ---
Discharge Date and Diagnosis - Problem List Patient Problems: Active and Suspected Problems Shortness of breath (Acute) Atrial flutter with rapid ventricular response (Acute) Healthcare associated bacterial pneumonia (Acute) Acute kidney injury (Acute) Chest pain (Acute) Date of Admission: 11/14/17 Date of Discharge: 11/26/17 - Primary Discharge Diagnosis Active and Suspected Problems #1 acute hypoxic and hypercapnic respiratory failure. #2 Haemophilus influenza healthcare associated pneumonia. #3 new onset atrial flutter with RVR. #4 metabolic encephalopathy. #5 acute kidney injury. - Secondary Discharge Diagnosis Chronic Problems Chronic obstructive pulmonary disease (Chronic) Morbid obesity (Chronic) HTN (hypertension) (Chronic) GERD (gastroesophageal reflux disease) (Chronic) Hospital Course and Treatment Imaging Results: Clinical Impression(s) from Imaging Studies Chest X-Ray 11/14/17 09:52 IMPRESSION: Cardiomegaly. Mild increased markings at the lung bases suggestive of linear atelectasis and/or scarring. Electronically Signed: Lewis Aguirre MD at 10:22 EDT Tel [phone], Service support , Chest CTA 11/15/17 14:45 IMPRESSION: Bilateral pleural effusions with bibasilar infiltration and/or atelectasis. Focal infiltrate in the posterior aspect of the exam of the left upper lobe as well as increased markings in the right middle lobe. Electronically Signed: Lewis Aguirre MD at 15:39 EDT Tel [phone], Service support , Chest X-Ray 11/17/17 08:16 IMPRESSION: Cardiomegaly. Bibasilar patchy infiltrates. Follow-up is recommended. Electronically Signed: Lewis Aguirre MD at 10:44 EDT Tel [phone], Service support , Chest X-Ray 11/17/17 13:55 IMPRESSION: Endotracheal tube and feeding tube placement. Bilateral infiltrates or edema and small effusions. Electronically Signed: Clarke Fragoso MD at 14:46 EDT , Service support , Brain CT 11/17/17 16:30 IMPRESSION: 1. Chronic involutional changes of the brain. 2. Nasogastric and endotracheal tubes are noted. 3. There is no intracranial hemorrhage or evidence of acute infarct. The visualized paranasal sinuses appear within normal limits. Electronically Signed: Kevin Newsome MD at 16:52 EDT , Service support , Chest X-Ray 11/18/17 06:15 IMPRESSION: Bilateral infiltrates or edema and pleural effusions with worsening. Electronically Signed: Clarke Fragoso MD at 8:24 EDT , Service support , Consultations 11/14/17 18:28 MD to MD Notification of Procedure Routine MD Notified:: Cornelio Hernandez Dr., cardiology. Dr. King/Dr. Newman, critical care. Procedures: 2-D Echocardiogram, Cardioversion, EKG Summary of Care Provided: Patient seen and examined on the day of discharge and appeared to be stable to be discharged to transitional care unit. She denies any significant complaints. Her breathing is stable. Denied chest pain or shortness of breath. Denied palpitation, dizziness or lightheadedness. She mentioned and atrial fibrillation, rate has been in the 70s, blood pressure stable, pulse ox is 94% on 2 L. - Physical Exam General: Alert, Oriented x3, Cooperative, No apparent distress. HEENT: Atraumatic, PERRLA, EOMI. Neck: Supple, No JVD, Negative Carotid Bruits, Trachea Midline, Thyroid Normal. Lungs: Decreased breath sounds bilaterally, more at the bases, No rhonchi, No wheeze, No rales. Cardiovascular: irregular rhythm, Normal S1, Normal S2, PMI Normal. Abdomen: Bowel Sounds Present, Soft, Non Tender, Non-Distended, No Hepato-splenomegaly. Extremities: No clubbing, No cyanosis, ++ edema Skin: No rashes, No breakdown Neurological: Neuro grossly intact Vital Signs are stable. Hospital course: This is a 67 years old female patient admitted because of shortness of breath and chest pain, found to have healthcare associated pneumonia complicated by acute hypoxic and hypercarbic respiratory failure and she developed atrial flutter with RVR status post failed cardioversion ?3. #1 acute hypoxic and hypercapnic respiratory failure: Attributed to pneumonia. Patient was admitted to ICU, intubated and remained on mechanical ventilation. She was extubated after 4 days and post extubation, she remained stable from a respiratory standpoint. Upon discharge to TCU, she was discharged on oxygen at 2 L during daytime and BiPAP during nighttime, plan to follow-up with pulmonology as outpatient. #2 Haemophilus influenza healthcare associated pneumonia: Completed 5 days of IV Rocephin. She remained afebrile for more than 72 hours. Her sputum culture revealed Haemophilus influenza. Blood culture showed no growth in 5 days. Urine culture revealed Enterobacter cloacae and Klebsiella pneumoniae, sensitivity reviewed. Pneumococcal and Legionella antigen were negative. She completed the course of IV Rocephin, no antibiotics prescribed upon discharge. #3 new onset atrial flutter with RVR: Status post failed DC cardioversion x3. Patient underwent cardioversion ?3 and she converted back to sinus rhythm but only for short time and then she went back into atrial flutter with RVR again and again. She was treated with IV amiodarone drip as well. Lastly, she was started on Cardizem and metoprolol and her heart rate stabilized. She was started on Xarelto for anticoagulation. 2D echocardiogram revealed ejection fraction of 55%. Discharged to TCU on Cardizem 60 mg p.o. every 8 hours, metoprolol 25 mg p.o. every 8 hours, discharged on Xarelto for anticoagulation, plan to follow-up with cardiology as outpatient. #4 encephalopathy: Likely metabolic secondary to pneumonia and respiratory failure. CT scan brain showed no acute findings. Resolved. #5 acute kidney injury: Secondary to infection. Kidney function is back to normal with IV fluid therapy. Patient discharged to TCU in a stable medical condition, discharged on metoprolol and Cardizem for rate control for atrial flutter, discharged on Xarelto for anticoagulation, she completed 5 days of IV Rocephin for pneumonia, discharged on DuoNeb every 6 hours, lisinopril discontinued, plan to follow-up with PCP in 1-2 weeks, follow-up with pulmonology according to Dr. Newman, follow-up with cardiology according to Dr. Hernandez. This note was generated with [employer] dictation software. It may contain incorrect words, spelling, and punctuation that were not noted in checking the note before signing. Home Medications: Medications to take at Discharge [place]-3 Fatty Acids/Fish Oil [Fish Oil 1,000 mg Capsule] 1 each PO DAILY 07/02/16 Calcium Carbonate/Vitamin D3 [Calcium 500+D Tablet Chew] 1 each PO DAILY 11/14/17 Omeprazole 20 mg PO DAILY 11/14/17 Diltiazem [Cardizem] 60 mg PO Q8 11/26/17 Ipratropium/Albuterol Sulfate [Duoneb] 3 ml INHALATION Q6H.RT PRN #1 ampul.neb 11/26/17 Metoprolol Tartrate [Lopressor (beta maeve)] 25 mg PO Q8 11/26/17 Rivaroxaban [Xarelto] 20 mg PO DAILY@1800 11/26/17 Senna/Docusate Sodium [Senokot-S] 2 tablet PO DAILY PRN PRN #1 tablet 11/26/17 Following Prescrptions Were Given to Patient: Ipratropium/Albuterol Sulfate [Duoneb] 3 ml INHALATION Q6H.RT PRN #1 ampul.neb PRN Reason: Wheezing/SOB Senna/Docusate Sodium [Senokot-S] 2 tablet PO DAILY PRN PRN #1 tablet PRN Reason: CONSTIPATION Primary Care Physician: Alfonzo Cha MD [Primary Care Provider] - Please follow up with your Primary Care Physician in: 1-2 weeks. Please Follow Up With: Marshall Newman MD When: call his office. Please Follow Up With: Cornelio Hernandez MD When: 1 week Disposition: Longterm facility Minutes spent on discharge:: 38 Patient Condition:: Stable Medical Necessity - Tobacco Use Smoking Status: Former smoker - quit 1989 smoked x 10 years Tobacco Use: Cigarettes Meaningful Use Info Meaningful Use Diagnoses (Choose all that apply): None applicable Code Visit Inpatient E&M: 36744 Disch Hosp
--- NOTE | 2017-11-26 15:01 | DS.PCM_ITS ---
Discharge Date and Diagnosis - Problem List Patient Problems: Active and Suspected Problems Shortness of breath (Acute) Atrial flutter with rapid ventricular response (Acute) Healthcare associated bacterial pneumonia (Acute) Acute kidney injury (Acute) Chest pain (Acute) Date of Admission: 11/14/17 Date of Discharge: 11/26/17 - Primary Discharge Diagnosis Active and Suspected Problems #1 acute hypoxic and hypercapnic respiratory failure. #2 Haemophilus influenza healthcare associated pneumonia. #3 new onset atrial flutter with RVR. #4 metabolic encephalopathy. #5 acute kidney injury. - Secondary Discharge Diagnosis Chronic Problems Chronic obstructive pulmonary disease (Chronic) Morbid obesity (Chronic) HTN (hypertension) (Chronic) GERD (gastroesophageal reflux disease) (Chronic) Hospital Course and Treatment Imaging Results: Clinical Impression(s) from Imaging Studies Chest X-Ray 11/14/17 09:52 IMPRESSION: Cardiomegaly. Mild increased markings at the lung bases suggestive of linear atelectasis and/or scarring. Electronically Signed: Lewis Augirre MD at 10:22 EDT Tel [phone], Service support , Chest CTA 11/15/17 14:45 IMPRESSION: Bilateral pleural effusions with bibasilar infiltration and/or atelectasis. Focal infiltrate in the posterior aspect of the exam of the left upper lobe as well as increased markings in the right middle lobe. Electronically Signed: Lewis Aguirre MD at 15:39 EDT Tel [phone], Service support , Chest X-Ray 11/17/17 08:16 IMPRESSION: Cardiomegaly. Bibasilar patchy infiltrates. Follow-up is recommended. Electronically Signed: Lewis Aguirre MD at 10:44 EDT Tel [phone], Service support , Chest X-Ray 11/17/17 13:55 IMPRESSION: Endotracheal tube and feeding tube placement. Bilateral infiltrates or edema and small effusions. Electronically Signed: Clarke Fragoso MD at 14:46 EDT , Service support , Brain CT 11/17/17 16:30 IMPRESSION: 1. Chronic involutional changes of the brain. 2. Nasogastric and endotracheal tubes are noted. 3. There is no intracranial hemorrhage or evidence of acute infarct. The visualized paranasal sinuses appear within normal limits. Electronically Signed: Kevin Newsome MD at 16:52 EDT , Service support , Chest X-Ray 11/18/17 06:15 IMPRESSION: Bilateral infiltrates or edema and pleural effusions with worsening. Electronically Signed: Clarke Fragoso MD at 8:24 EDT , Service support , Consultations 11/14/17 18:28 MD to MD Notification of Procedure Routine MD Notified:: Cornelio Hernandez Dr., cardiology. Dr. King/Dr. Newman, critical care. Procedures: 2-D Echocardiogram, Cardioversion, EKG Summary of Care Provided: Patient seen and examined on the day of discharge and appeared to be stable to be discharged to transitional care unit. She denies any significant complaints. Her breathing is stable. Denied chest pain or shortness of breath. Denied palpitation, dizziness or lightheadedness. She mentioned and atrial fibrillation, rate has been in the 70s, blood pressure stable, pulse ox is 94% on 2 L. - Physical Exam General: Alert, Oriented x3, Cooperative, No apparent distress. HEENT: Atraumatic, PERRLA, EOMI. Neck: Supple, No JVD, Negative Carotid Bruits, Trachea Midline, Thyroid Normal. Lungs: Decreased breath sounds bilaterally, more at the bases, No rhonchi, No wheeze, No rales. Cardiovascular: irregular rhythm, Normal S1, Normal S2, PMI Normal. Abdomen: Bowel Sounds Present, Soft, Non Tender, Non-Distended, No Hepato- splenomegaly. Extremities: No clubbing, No cyanosis, ++ edema Skin: No rashes, No breakdown Neurological: Neuro grossly intact Vital Signs are stable. Hospital course: This is a 67 years old female patient admitted because of shortness of breath and chest pain, found to have healthcare associated pneumonia complicated by acute hypoxic and hypercarbic respiratory failure and she developed atrial flutter with RVR status post failed cardioversion ?3. #1 acute hypoxic and hypercapnic respiratory failure: Attributed to pneumonia. Patient was admitted to ICU, intubated and remained on mechanical ventilation. She was extubated after 4 days and post extubation, she remained stable from a respiratory standpoint. Upon discharge to TCU, she was discharged on oxygen at 2 L during daytime and BiPAP during nighttime, plan to follow-up with pulmonology as outpatient. #2 Haemophilus influenza healthcare associated pneumonia: Completed 5 days of IV Rocephin. She remained afebrile for more than 72 hours. Her sputum culture revealed Haemophilus influenza. Blood culture showed no growth in 5 days. Urine culture revealed Enterobacter cloacae and Klebsiella pneumoniae, sensitivity reviewed. Pneumococcal and Legionella antigen were negative. She completed the course of IV Rocephin, no antibiotics prescribed upon discharge. #3 new onset atrial flutter with RVR: Status post failed DC cardioversion x3. Patient underwent cardioversion ?3 and she converted back to sinus rhythm but only for short time and then she went back into atrial flutter with RVR again and again. She was treated with IV amiodarone drip as well. Lastly, she was started on Cardizem and metoprolol and her heart rate stabilized. She was started on Xarelto for anticoagulation. 2D echocardiogram revealed ejection fraction of 55%. Discharged to TCU on Cardizem 60 mg p.o. every 8 hours, metoprolol 25 mg p.o. every 8 hours, discharged on Xarelto for anticoagulation, plan to follow-up with cardiology as outpatient. #4 encephalopathy: Likely metabolic secondary to pneumonia and respiratory failure. CT scan brain showed no acute findings. Resolved. #5 acute kidney injury: Secondary to infection. Kidney function is back to normal with IV fluid therapy. Patient discharged to TCU in a stable medical condition, discharged on metoprolol and Cardizem for rate control for atrial flutter, discharged on Xarelto for anticoagulation, she completed 5 days of IV Rocephin for pneumonia, discharged on DuoNeb every 6 hours, lisinopril discontinued, plan to follow-up with PCP in 1-2 weeks, follow-up with pulmonology according to Dr. Newman, follow-up with cardiology according to Dr. Hernandez. This note was generated with [employer] dictation software. It may contain incorrect words, spelling, and punctuation that were not noted in checking the note before signing. Home Medications: Medications to take at [facility] [place]-[facility] Fatty Acids/Fish Oil [Fish Oil 1,000 mg Capsule] 1 each PO DAILY Calcium Carbonate/Vitamin D3 [Calcium 500+D Tablet Chew] 1 each PO DAILY Omeprazole 20 mg PO DAILY 11/14/17 Diltiazem [Cardizem] 60 mg PO Q8 11/26/17 Ipratropium/Albuterol Sulfate [Duoneb] 3 ml INHALATION Q6H.RT PRN #1 ampul.neb 11/26/17 Metoprolol Tartrate [Lopressor (beta maeve)] 25 mg PO Q8 11/26/17 Rivaroxaban [Xarelto] 20 mg PO DAILY@1800 11/26/17 Senna/Docusate Sodium [Senokot-S] 2 tablet PO DAILY PRN PRN #1 tablet 11/26/17 Following Prescrptions Were Given to Patient: Ipratropium/Albuterol Sulfate [Duoneb] 3 ml INHALATION Q6H.RT PRN #1 ampul.neb PRN Reason: Wheezing/SOB Senna/Docusate Sodium [Senokot-S] 2 tablet PO DAILY PRN PRN #1 tablet PRN Reason: CONSTIPATION Primary Care Physician: Alfonzo Cha MD [Primary Care Provider] - Please follow up with your Primary Care Physician in: 1-2 weeks. Please Follow Up With: Marshall Newman MD When: call his office. Please Follow Up With: Cornelio Hernandez MD When: 1 week Disposition: [facility] facility Minutes spent on discharge:: 38 Patient Condition:: Stable Medical Necessity - Tobacco Use Smoking Status: Former smoker - quit 1989 smoked x 10 years Tobacco Use: Cigarettes Meaningful Use Info Meaningful Use Diagnoses (Choose all that apply): None applicable Code Visit Inpatient E&M: 11278 Disch Hosp
== END 2017-11-26 12:00 | disposition skilled nursing facility (03) | DRG 308 ==
LOC: ED 14:00 → PCU 11-15 07:26 → ICU 11-17 13:12 → PCU 11-24 11:34
PROVIDERS: Family Medicine; Internal Medicine Cardiovascular Disease; Internal Medicine Critical Care Medicine; Physician Assistant; Admitting Provider Internal Medicine; Emergency Provider Emergency Medicine; Family Provider Family Medicine; PCP Family Medicine; Visit Provider Hospitalist
DX: I48.92 Unspecified atrial flutter (principal); J14 Pneumonia due to Hemophilus influenzae; J96.01 Acute respiratory failure with hypoxia; J96.02 Acute respiratory failure with hypercapnia; G93.41 Metabolic encephalopathy; N17.9 Acute kidney failure, unspecified; J44.0 Chronic obstructive pulmonary disease with (acute) lower respiratory infection; Z68.43 Body mass index [BMI] 50.0-59.9, adult; Y95 Nosocomial condition; K21.9 Gastro-esophageal reflux disease without esophagitis; Z87.891 Personal history of nicotine dependence; E66.01 Morbid (severe) obesity due to excess calories; I10 Essential (primary) hypertension
CPT/HCPCS: 31500; 31720; 36415; 36569; 36600; 70450; 71045; 71046; 71275; 80048; 80053; 80061; 80076; 80202; 82533; 82550; 82803; 82962; 83036; 83735; 83880; 84100; 84443; 84478; 84484; 85025; 85379; 85610; 85730; 87040; 87070; 87077; 87086; 87088; 87186; 87205; 87449; 87641; 92960; 93005; 93306; 93312; 93320; 93325; 94002; 94003; 94640; 94660; 95831; 97110; 97116; 97162; 97166; 97530; 97802; 97803; 99251; 99285; J7030; J7040; J7050; Q9957; Q9967; A4216; C8929; G0463; J0153; J0696; J1940; J2310; J2405

== ENCOUNTER 2017-11-26 12:15 | Inpatient (IN) | payer MEDICARE, SELFPAY ==
[2017-11-26 12:39] VITALS: PULSE 90; RESP 18
--- NOTE | 2017-11-26 12:40 | NURSING ---
Pt arrived at 12:15 from [facility] via wheelchair
[2017-11-26 13:03] VITALS: BP 142/95; PULSE 90; RESP 18; TEMP 36.5; O2SAT 92
[2017-11-26 13:09] VITALS: BMI 61.6
[2017-11-26 13:10] VITALS: BMI 61.6
--- NOTE | 2017-11-26 13:55 | PCM.HP.STD ---
Problem List (1) Shortness of breath Status: Acute (2) Atrial flutter with rapid ventricular response Status: Acute (3) Healthcare associated bacterial pneumonia Status: Acute (4) Acute kidney injury Status: Acute (5) Chest pain Status: Acute (6) Chronic obstructive pulmonary disease Status: Chronic (7) Acute respiratory failure Status: Acute Qualifiers: (8) Morbid obesity Status: Chronic (9) HTN (hypertension) Status: Chronic Qualifiers: (10) GERD (gastroesophageal reflux disease) Status: Chronic Qualifiers: History of Present Illness Date of Admission: 11/26/17 Chief Complaint: Here for rehabilitation, strengthening, prior to discharge home with family. The patient is a 67 year old Female with below past medical history presented to [facility] Emergency Department 11/14/2017 with shortness of breath. 11/14/2017 EKG showed atrial flutter, left axis deviation, right bundle branch block. 11/14/2017 Chest X-ray cardiomegaly, bibasilar atelectasis/scarring. Shortness of breath x 2 days, feels winded. Weakness, SVT at primary care provider's office. Valsalva brought heart rate to 70, but heart rate increased back to 150. Hemoglobin 15.8, Sodium 148, Chloride 111, Glucose 133, Cr 1.21, Troponin 0.017. Adenosine 6MG, 12MG given showing atrial flutter rhythm. Cardizem, Metoprolol given, heart rate 140. Cardizem drip started, titrated upwards, tachycardia persisted. Digoxin given, heart rate 90 to 100. 11/14/2017 Admit to Hospital. Admit to PCU, cycle enzymes. Amiodarone, Cardizem, heparin drips. Plan NEREYDA, cardioversion. IV fluids for dehydration. 11/15/2017 NEREYDA showed mild LV dysfunction. EF 45% Mild segmental RV dysfunction. Patent foramen ovale by bubble study. 11/15/2017 DC cardioversion. 11/18/2017 Echo LV systolic function normal. EF 55% Mild concentric left ventricular hypertrophy. Mild to moderate global RV systolic dysfunction. RVSP 35mm HG. Diastolic dysfunction. 11/21/2017 DC cardioversion. 11/23/2017 DC cardioversion. Patient required intubation for acute respiratory failure. BiPAP at night. H. Flu HCAP treated with Rocephin IV x 5 days. Urine culture grew E. Cloacae, K. Pneumoniae. Urinary antigens for legionella, s. pneumoniae NEGATIVE. Amiodarone, Coreg, Xarelto for new onset atrial flutter. Acute Kidney Injury resolved with IV fluids. Encephalopathy improved. 11/26/2017 Admit to TCU with debility, here for rehabilitation, strengthening, prior to discharge home with family. Past Medical History Past Medical History (Chronic Problems): Chronic Problems Chronic obstructive pulmonary disease (Chronic) Morbid obesity (Chronic) HTN (hypertension) (Chronic) GERD (gastroesophageal reflux disease) (Chronic) Allergies aspirin [ASA] Adverse Reaction (Verified 11/14/17 14:34) stomach burning and sick to stomach propoxyphene HCl [From Darvon] Adverse Reaction (Verified 11/14/17 14:34) i get dizzy and pass out Home Medications: Ambulatory Orders Medication Instructions Recorded [place]-3 Fatty Acids/Fish Oil [Fish 1 each PO DAILY 07/02/16 Oil 1,000 mg Capsule] Calcium Carbonate/Vitamin D3 1 each PO DAILY 11/14/17 [Calcium 500+D Tablet Chew] Omeprazole 20 mg PO DAILY 11/14/17 Diltiazem [Cardizem] 60 mg PO Q8 11/26/17 Ipratropium/Albuterol Sulfate 3 ml INHALATION Q6H.RT PRN #1 11/26/17 [Duoneb] ampul.neb Metoprolol Tartrate [Lopressor 25 mg PO Q8 11/26/17 (beta maeve)] Rivaroxaban [Xarelto] 20 mg PO DAILY@1800 11/26/17 Senna/Docusate Sodium [Senokot-S] 2 tablet PO DAILY PRN PRN #1 tablet 11/26/17 Surgical History: hysterectomy - total Psychiatric History: No pertinent psych hx 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 Lives: With Family Smoking Status: Former smoker Tobacco Use: Non-smoker Alcohol: None Drugs: None - *Family History Maternal History Items: Heart Disease Paternal History Items: Heart Disease Review of Systems Constitutional: Denies: Chills, Fever, Weight Change HEENT: Denies: Head Aches, Sinus Congestion, Sinus Drainage Cardiovascular: Denies: Chest Pain, Palpitations Respiratory: Denies: Cough, Shortness of breath at rest, Sputum production Gastrointestinal: Denies: Abdominal Pain, Nausea, Vomiting Genitourinary: Denies: Dysuria Musculoskeletal: Denies: Joint Pain, Joint Tenderness Skin: Denies: Rash, Wounds Neurological: Denies: Numbness, Tingling, Focal weakness Psychiatric: Denies: Anxiety, Depression, Homicidal Ideations, Suicidal Ideations Hematologic/ Lymphatic: Denies: Easy Bruising, Easy Bleeding VTE Information - Inpt Only VTE Present on Admission: No VTE Mechan Device Prophylaxis: Knee High IGLESIA Hose VTE Pharm Prophylaxis ordered?: No Reason prophylaxis not ordered:: Treatment Not Indicated Patient Problems: Active and Suspected Problems Shortness of breath (Acute) Atrial flutter with rapid ventricular response (Acute) Healthcare associated bacterial pneumonia (Acute) Acute kidney injury (Acute) Chest pain (Acute) - Physical Exam General: Alert, Oriented x3, Cooperative HEENT: Atraumatic, PERRLA, EOMI, Normocephalic Neck: Supple, No JVD, Negative Carotid Bruits Lungs: Clear to auscultation, Normal air movement Cardiovascular: Regular rate, No murmurs Abdomen: Bowel Sounds Present, Soft, Non Tender Extremities: No edema, Capillary Refill Less than 3 Seconds Skin: No rashes, No breakdown Musculoskeletal: No Tenderness to Palpation of Joints or Extremities Neurological: Cranial nerves II-XII grossly intact Psych/Mental Status: Normal Affect, Appropriate Vital Signs Temp Pulse Resp BP Pulse Ox 97.7 F L 90 18 142/95 H 92 11/26/17 13:03 11/26/17 13:03 11/26/17 13:03 11/26/17 13:03 11/26/17 13:03 Oxygen Flow Rate (L/min) 2 Oxygen Delivery Method Nasal Cannula Weight: 162.885 kg Body Mass Index (BMI) 61.6 Assessment/Plan All Active Problems Shortness of breath (Acute) Atrial flutter with rapid ventricular response (Acute) Healthcare associated bacterial pneumonia (Acute) Acute kidney injury (Acute) Chest pain (Acute) Acute respiratory failure (Acute) Healthcare-associated pneumonia (Acute) Atrial flutter (Acute) 67 year old female with below past medical history hospitalized for atrial flutter requiring cardioversion x 3, acute respiratory failure requiring intubation secondary to H. Flu pneumonia, complicated by acute kidney injury, admitted to TCU with debility, here for rehabilitation, strengthening, prior to discharge home with family. Debility - PT/OT. Pain - Tylenol 1000MG Q8H PRN mild pain. Bowel - Miralax 17GM daily, Senna/colace 1 tablet BID, Dulcolax 10MG PO daily PRN, Mag Citrate 300ML PO x 1 dose for cleanout. Pneumonia vaccination - Administer Prevnar 13 and/or Pneumovax 23 as necessary. DVT prophylaxis - Not necessary, already on Xarelto. Calcium deficiency - Oscal D 1 tablet daily. Atrial Flutter with RVR status post cardioversion x 3 - Metoprolol 25MG Q8H, Cardizem 60MG Q8H, Xarelto 20MG daily. COPD - Duonebl 3ML Q6H PRN. Tinea Corporis - Nystatin powder TID abdominal folds, under breasts. GERD - Pantoprazole 20MG daily. Sleep apnea - BiPAP at night, would benefit from formal sleep study. Morbid Obesity - Would benefit from life saving bariatric surgery.
--- NOTE | 2017-11-26 14:07 | HP.PCM_ITS ---
Problem List (1) Shortness of breath Status: Acute (2) Atrial flutter with rapid ventricular response Status: Acute (3) Healthcare associated bacterial pneumonia Status: Acute (4) Acute kidney injury Status: Acute (5) Chest pain Status: Acute (6) Chronic obstructive pulmonary disease Status: Chronic (7) Acute respiratory failure Status: Acute Qualifiers: (8) Morbid obesity Status: Chronic (9) HTN (hypertension) Status: Chronic Qualifiers: (10) GERD (gastroesophageal reflux disease) Status: Chronic Qualifiers: History of Present Illness Date of Admission: 11/26/17 Chief Complaint: Here for rehabilitation, strengthening, prior to discharge home with family. The patient is a 67 year old Female with below past medical history presented to [facility] Emergency Department 11/14/2017 with shortness of breath. 11/14/2017 EKG showed atrial flutter, left axis deviation, right bundle branch block. 11/14/2017 Chest X-ray cardiomegaly, bibasilar atelectasis/scarring. Shortness of breath x 2 days, feels winded. Weakness, SVT at primary care provider's office. Valsalva brought heart rate to 70, but heart rate increased back to 150. Hemoglobin 15.8, Sodium 148, Chloride 111, Glucose 133, Cr 1.21, Troponin 0.017. Adenosine 6MG, 12MG given showing atrial flutter rhythm. Cardizem, Metoprolol given, heart rate 140. Cardizem drip started, titrated upwards, tachycardia persisted. Digoxin given, heart rate 90 to 100. 11/14/2017 Admit to Hospital. Admit to PCU, cycle enzymes. Amiodarone, Cardizem, heparin drips. Plan NEREYDA, cardioversion. IV fluids for dehydration. 11/15/2017 NEREYDA showed mild LV dysfunction. EF 45% Mild segmental RV dysfunction. Patent foramen ovale by bubble study. 11/15/2017 DC cardioversion. 11/18/2017 Echo LV systolic function normal. EF 55% Mild concentric left ventricular hypertrophy. Mild to moderate global RV systolic dysfunction. RVSP 35mm HG. Diastolic dysfunction. 11/21/2017 DC cardioversion. 11/23/2017 DC cardioversion. Patient required intubation for acute respiratory failure. BiPAP at night. H. Flu HCAP treated with Rocephin IV x 5 days. Urine culture grew E. Cloacae, K. Pneumoniae. Urinary antigens for legionella, s. pneumoniae NEGATIVE. Amiodarone, Coreg, Xarelto for new onset atrial flutter. Acute Kidney Injury resolved with IV fluids. Encephalopathy improved. 11/26/2017 Admit to TCU with debility, here for rehabilitation, strengthening, prior to discharge home with family. Past Medical History Past Medical History (Chronic Problems): Chronic Problems Chronic obstructive pulmonary disease (Chronic) Morbid obesity (Chronic) HTN (hypertension) (Chronic) GERD (gastroesophageal reflux disease) (Chronic) Allergies aspirin [ASA] Adverse Reaction (Verified 11/14/17 14:34) stomach burning and sick to stomach propoxyphene HCl [From Darvon] Adverse Reaction (Verified 11/14/17 14:34) i get dizzy and pass out Home Medications: Ambulatory Orders Medication Instructions Recorded [place]-3 Fatty Acids/Fish Oil [Fish 1 each PO DAILY 07/02/16 Oil 1,000 mg Capsule] Calcium Carbonate/Vitamin D3 1 each PO DAILY 11/14/17 [Calcium 500+D Tablet Chew] Omeprazole 20 mg PO DAILY 11/14/17 Diltiazem [Cardizem] 60 mg PO Q8 11/26/17 Ipratropium/Albuterol Sulfate 3 ml INHALATION Q6H.RT PRN #1 11/26/17 [Duoneb] ampul.neb Metoprolol Tartrate [Lopressor 25 mg PO Q8 11/26/17 (beta maeve)] Rivaroxaban [Xarelto] 20 mg PO DAILY@1800 11/26/17 Senna/Docusate Sodium [Senokot-S] 2 tablet PO DAILY PRN PRN #1 tablet 11/26/17 Surgical History: hysterectomy - total Psychiatric History: No pertinent psych hx 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 SEARCH 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 Lives: With Family Smoking Status: Former smoker Tobacco Use: Non-smoker Alcohol: None Drugs: None - *Family History Maternal History Items: Heart Disease Paternal History Items: Heart Disease Review of Systems Constitutional: Denies: Chills, Fever, Weight Change HEENT: Denies: Head Aches, Sinus Congestion, Sinus Drainage Cardiovascular: Denies: Chest Pain, Palpitations Respiratory: Denies: Cough, Shortness of breath at rest, Sputum production Gastrointestinal: Denies: Abdominal Pain, Nausea, Vomiting Genitourinary: Denies: Dysuria Musculoskeletal: Denies: Joint Pain, Joint Tenderness Skin: Denies: Rash, Wounds Neurological: Denies: Numbness, Tingling, Focal weakness Psychiatric: Denies: Anxiety, Depression, Homicidal Ideations, Suicidal Ideations Hematologic/ Lymphatic: Denies: Easy Bruising, Easy Bleeding VTE Information - Inpt Only VTE Present on Admission: No VTE Mechan Device Prophylaxis: Knee High IGLESIA Hose VTE Pharm Prophylaxis ordered?: No Reason prophylaxis not ordered:: Treatment Not Indicated Patient Problems: Active and Suspected Problems Shortness of breath (Acute) Atrial flutter with rapid ventricular response (Acute) Healthcare associated bacterial pneumonia (Acute) Acute kidney injury (Acute) Chest pain (Acute) - Physical Exam General: Alert, Oriented x3, Cooperative HEENT: Atraumatic, PERRLA, EOMI, Normocephalic Neck: Supple, No JVD, Negative Carotid Bruits Lungs: Clear to auscultation, Normal air movement Cardiovascular: Regular rate, No murmurs Abdomen: Bowel Sounds Present, Soft, Non Tender Extremities: No edema, Capillary Refill Less than 3 Seconds Skin: No rashes, No breakdown Musculoskeletal: No Tenderness to Palpation of Joints or Extremities Neurological: Cranial nerves II-XII grossly intact Psych/Mental Status: Normal Affect, Appropriate Vital Signs Temp Pulse Resp BP Pulse Ox 97.7 F L 90 18 142/95 H 92 11/26/17 13:03 11/26/17 13:03 11/26/17 13:03 11/26/17 13:03 11/26/17 13:03 Oxygen Flow Rate (L/min) 2 Oxygen Delivery Method Nasal Cannula Weight: 162.885 kg Body Mass Index (BMI) 61.6 Assessment/Plan All Active Problems Shortness of breath (Acute) Atrial flutter with rapid ventricular response (Acute) Healthcare associated bacterial pneumonia (Acute) Acute kidney injury (Acute) Chest pain (Acute) Acute respiratory failure (Acute) Healthcare-associated pneumonia (Acute) Atrial flutter (Acute) 67 year old female with below past medical history hospitalized for atrial flutter requiring cardioversion x 3, acute respiratory failure requiring intubation secondary to H. Flu pneumonia, complicated by acute kidney injury, admitted to TCU with debility, here for rehabilitation, strengthening, prior to discharge home with family. * Debility - PT/OT. * Pain - Tylenol 1000MG Q8H PRN mild pain. * Bowel - Miralax 17GM daily, Senna/colace 1 tablet BID, Dulcolax 10MG PO daily PRN, Mag Citrate 300ML PO x 1 dose for cleanout. * Pneumonia vaccination - Administer Prevnar 13 and/or Pneumovax 23 as necessary. * DVT prophylaxis - Not necessary, already on Xarelto. * Calcium deficiency - Oscal D 1 tablet daily. * Atrial Flutter with RVR status post cardioversion x 3 - Metoprolol 25MG Q8H, Cardizem 60MG Q8H, Xarelto 20MG daily. * COPD - Duonebl 3ML Q6H PRN. * Tinea Corporis - Nystatin powder TID abdominal folds, under breasts. * GERD - Pantoprazole 20MG daily. * Sleep apnea - BiPAP at night, would benefit from formal sleep study. * Morbid Obesity - Would benefit from life saving bariatric surgery.
[2017-11-26 15:36] VITALS: BP 105/72; PULSE 64; RESP 18; TEMP 35.7; O2SAT 94
[2017-11-26] MEDS: Metoprolol Tartrate 25 MG Tablet PO ×2 (15:36→21:44)
[2017-11-26] MEDS: Nystatin Powder 15gm Bottle 1 APPLIC TOPICAL ×2 (15:36→21:45)
[2017-11-26] MEDS: Rivaroxaban 20 MG Tablet PO (17:51)
[2017-11-26 19:35] VITALS: O2SAT 95
[2017-11-26 21:44] VITALS: BP 119/89; PULSE 78
[2017-11-26] MEDS: 0.9% NaCl PICC Flush IV (21:46)
[2017-11-26 22:35] VITALS: PULSE 90; RESP 12; RESP 23; O2SAT 95
--- NOTE | 2017-11-26 22:52 | NURSING ---
Flushed dual PICC with saline no blood return RN Angeline notified of no blood return.
--- NOTE | 2017-11-26 22:54 | NURSING ---
Dr. Cat notified of patients PICC line is flushing but there is no blood return. This is even after PICC dressing was changed after it was reported that line was flushing with no return by previous shift. New orders given to d/c PICC line. PICC line d/c'd at this time. Pressure applied to site. 42 CM of intact line removed. Patient tolerated this procedure well.
[2017-11-27] VITALS (8 sets, daily range): BP systolic 135–151; BP diastolic 85–99; PULSE 66–103; RESP 12–20; TEMP 35.9; O2SAT 92–96
[2017-11-27] MEDS: Pantoprazole Sodium 20 MG Tablet PO (05:21)
[2017-11-27] MEDS: dilTIAZem 60 MG Tablet PO ×3 (05:21→20:23)
[2017-11-27] MEDS: Metoprolol Tartrate 25 MG Tablet PO ×3 (05:22→20:23)
[2017-11-27 06:09] LABS: Anion Gap 10 (5-15); BUN 11 mg/dL (7-18); BUN/Creat Ratio 12.5 RATIO (10-20); Calcium,Total 8.5 mg/dL (8.5-10.1); Chloride 102 mmol/L (98-107); Creatinine, Serum 0.88 mg/dL (0.55-1.02); EST Glomerular Filtration Rate 68 mL/min (>60); Est Glom Filt Rate - Afr Amer 82 mL/min (>60); Glucose 87 mg/dL (74-106); Potassium 3.6 mmol/L (3.5-5.1); Sodium Level 147 mmol/L (136-145)
[2017-11-27] MEDS: Nystatin Powder 15gm Bottle 1 APPLIC TOPICAL ×3 (06:59→20:24)
[2017-11-27 07:06] LABS: Absolute Lymphocyte Count 1.59 X10^3/ul (0.83-4.51); Basophil# 0.01 X10^3/uL; Basophil% 0.1 % (0-1); Eosinophil# 0.25 X10^3/uL; Eosinophils% 3.7 % (0-5); Hematocrit 45.9 % (37-47); Hemoglobin 13.7 g/dl (12.0-15.0); Lymphocyte # 1.59 X10^3/ul (4.0); Lymphocyte % 23.5 % (19-41); Mean Corp Hgb Conc 29.8 g/gl (32-36); Mean Corpuscular Hgb 29.2 pg (27.0-32.0); Mean Corpuscular Volume 97.9 fL (81-99); Mean Platelet Vol. 10.3 fl (6.2-12.0); Monocyte# 0.91 X10^3/uL; Monocyte% 13.4 % (0-10); Neutrophil # 4.01 X10^3/uL (2.7-7.7); Neutrophil % 59.2 % (47-70); Platelet Count 168 K/mm3 (150-450); RBC Distribution Width CV 14.1 % (11.6-14.6); Red Blood Count 4.69 M/mm3 (4.2-5.4); White Blood Count 6.8 K/mm3 (4.4-11.0)
[2017-11-27 07:08] LABS: POSITIVE COUNT NO; POSITIVE DIFFERENTIAL NO; POSITIVE MORPHOLOGY NO
[2017-11-27] MEDS: Calcium Carb/Vitamin D 1 TABLET Tablet PO (07:45)
[2017-11-27] MEDS: Tuberculin,Purif.prot.deriv. 50 TU/ML Vial 5 ML ID (09:58)
[2017-11-27] MEDS: Magnesium Citrate 300 ML PO (13:31)
--- NOTE | 2017-11-27 16:10 | CHAPLAIN ---
Type of Pastoral Visit _x__ Initial Visit ___ Follow-up Visit ___ On-call Visit ___ General Patient Visit ___ Spiritual Assessment ___ Family Conference ___ Bereavement ___ Rapid Response ___ Code Blue ___ Other (describe below) Pastoral Care Referral From _x__ Patient ___ Family ___ Nurse ___ Physician ___ Manager Legal ___ Supervisor [place] ___ Other (describe below) Sacrament/Intervention _x__ Active listening ___ Anointing ___ Denominational ___ Bereavement ___ Communion ___ Melody exploration ___ ___ Life review _x__ Prayer ___ Reconciliation ___ Sacrament of Sick ___ Supportive presence ___ Wedding ___ Other (describe below) Pastoral Comments patient says she believes in prayer and will accept visits and prayers from rock dust sprayer; pt reports many family members are available for support
[2017-11-27] MEDS: Rivaroxaban 20 MG Tablet PO (17:11)
[2017-11-28] VITALS (10 sets, daily range): BP systolic 130–149; BP diastolic 74–90; PULSE 66–108; RESP 12–22; TEMP 36.7; O2SAT 91–96
[2017-11-28] MEDS: Ipratropium/Albuterol Sulfate 3 ML AMPUL.NEB INHALATION (03:45)
--- NOTE | 2017-11-28 03:49 | NURSING ---
PATIENT C/O FEELING SOB REQUESTED BIPAP OFF AND O2 ON. SEE VITAL SIGNS. ZAFAR, RN IN ROOM WITH THIS NURSE AND PRINTED CIRCUIT LAYOUT TAPER. REPOSITIONED. HOB ELEVATED FOR COMFORT. RESP THERAPISTS CALLED AND IN ROOM FOR AEROSOL TX. PATIENT TOLD CAREGIVERS SHE WAS FEELING BETTER ALREADY AFTER REPOSITIONED. WILL CONT TO MONITOR.
[2017-11-28] MEDS: dilTIAZem 60 MG Tablet PO ×3 (04:45→20:09)
[2017-11-28] MEDS: Metoprolol Tartrate 25 MG Tablet PO ×3 (04:45→20:09)
[2017-11-28] MEDS: Nystatin Powder 15gm Bottle 1 APPLIC TOPICAL ×3 (04:46→20:11)
[2017-11-28] MEDS: Pantoprazole Sodium 20 MG Tablet PO (04:46)
[2017-11-28] MEDS: Calcium Carb/Vitamin D 1 TABLET Tablet PO (07:50)
--- NOTE | 2017-11-28 10:08 | PCM.PN.RX ---
<Damaso Torres D - Last Filed: 11/28/17 10:08> Progress Note - Pharmacy Subjective: TCU Admission Objective: Allergies aspirin [ASA] Adverse Reaction (Verified 11/14/17 14:34) stomach burning and sick to stomach propoxyphene HCl [From Darvon] Adverse Reaction (Verified 11/14/17 14:34) i get dizzy and pass out Current Medications Generic Name Dose Route Start Last Admin Trade Name Freq PRN Reason Stop Dose Admin Acetaminophen 1,000 mg 11/26/17 14:20 Tylenol PO Q8H PRN PRN MILD PAIN (1-3/10) Albuterol/Ipratropium 3 ml 11/26/17 12:44 11/28/17 03:45 Duoneb INHALATION 3 ml Q6H.RT PRN Administration Wheezing/SOB Bisacodyl 10 mg 11/26/17 14:21 Dulcolax PO DAILY PRN Constipation Calamine/Phenol 1 applic 11/28/17 22:00 Calmoseptine Ointment TOPICAL 0600,2200 [facility] Protocol Calcium/Vitamin D 1 tablet 11/27/17 08:00 11/28/17 07:50 Os-Jose 500mg + D PO 1 tablet DAILYCM LAQUITA Administration Diltiazem HCl 60 mg 11/27/17 06:00 11/28/17 04:45 Cardizem PO 60 mg Q8 LAQUITA Administration Heparin Sodium (Beef Lung) 500 unit 11/26/17 14:59 Heparin 500 Unit/5 Ml (100/Ml) IV UD PRN HEPARIN FLUSH Metoprolol Tartrate 25 mg 11/26/17 14:00 11/28/17 04:45 Lopressor (Beta Wallace) PO 25 mg Q8 LAQUITA Administration Nystatin 1 applic 11/26/17 14:00 11/28/17 04:46 Mycostatin Powder TOPICAL 1 applicatio TID [facility] Administration Protocol Pantoprazole Sodium 20 mg 11/27/17 06:00 11/28/17 04:46 Protonix PO 20 mg DAILY LAQUITA Administration Polyethylene Glycol 17 gm 11/27/17 06:00 11/28/17 04:45 Miralax PO Not Given DAILY LAQUITA Rivaroxaban 20 mg 11/26/17 18:00 11/27/17 17:11 Xarelto PO 20 mg DAILY@1800 LAQUITA Administration Senna/Docusate Sodium 1 tablet 11/26/17 18:00 11/28/17 04:46 Senokot-S, Cindy-Colace PO Not Given BID LAQUITA Sodium Chloride 10 - 20 ml 11/26/17 14:59 11/26/17 21:46 IV 20 ml UD PRN Administration PICC FLUSH Tuberculin PPD 5 tu 12/04/17 10:00 Tubersol, Aplisol, Ppd ID 12/04/17 10:01 X1 ONE Problem List Shortness of breath (Acute) Atrial flutter with rapid ventricular response (Acute) Healthcare associated bacterial pneumonia (Acute) Acute kidney injury (Acute) Chest pain (Acute) Chronic obstructive pulmonary disease (Chronic) Vital Signs Temp Pulse Resp BP Pulse Ox 96.6 F L 78 20 H 149/81 H 91 11/27/17 15:16 11/28/17 04:45 11/28/17 03:47 11/28/17 04:45 11/28/17 07:15 Oxygen Flow Rate (L/min) 2 Oxygen Delivery Method Nasal Cannula Weight: 162.885 kg Body Mass Index (BMI) 61.6 Sodium 147 mmol/L (136-145) H 11/27/17 05:10 Potassium 3.6 mmol/L (3.5-5.1) 11/27/17 05:10 Chloride 102 mmol/L (98-107) 11/27/17 05:10 Carbon Dioxide 35.0 mmol/L (21.0-32.0) H 11/27/17 05:10 Anion Gap 10 (5-15) 11/27/17 05:10 BUN 11 mg/dL (7-18) 11/27/17 05:10 Creatinine 0.88 mg/dL (0.55-1.02) 11/27/17 05:10 Est GFR (MDRD) Af Amer 82 mL/min (>60) 11/27/17 05:10 Est GFR (MDRD) Non-Af 68 mL/min (>60) 11/27/17 05:10 BUN/Creatinine Ratio 12.5 RATIO (10-20) 11/27/17 05:10 Glucose 87 mg/dL (74-106) 11/27/17 05:10 Assessment/Plan: 1) Pain APAP fo mild pain. Continue to monitor prn medication use, daily pain scores. 2) AFlutter Diltiazem, metoprolol, rivaroxaban. Continue to monitor BP/HR, renal function, s/s bleeding/clot. 3) GI Pantoprazole daily. Continue to monitor s/s GI distress. Psychotropic Medications: None Unnecessary Medications: None Bowel Regimen: 4) Senna/s, PEG, prn bisacodyl. Continue to monitor prn medication use, for constipation/diarrhea. Date of Note:: 11/28/17 - Provider Comments Provider responsibility: Provider responsible to enter orders to implement recommendations <Ryan Cat Chi - Last Filed: 11/28/17 17:47> Progress Note - Pharmacy Subjective: [] Objective: Allergies aspirin [ASA] Adverse Reaction (Verified 11/14/17 14:34) stomach burning and sick to stomach propoxyphene HCl [From Darvon] Adverse Reaction (Verified 11/14/17 14:34) i get dizzy and pass out Current Medications Generic Name Dose Route Start Last Admin Trade Name Freq PRN Reason Stop Dose Admin Acetaminophen 1,000 mg 11/26/17 14:20 Tylenol PO Q8H PRN PRN MILD PAIN (1-3/10) Albuterol/Ipratropium 3 ml 11/28/17 10:15 Duoneb INHALATION Q6H PRN PRN Wheezing/SOB Bisacodyl 10 mg 11/26/17 14:21 Dulcolax PO DAILY PRN Constipation Calamine/Phenol 1 applic 11/28/17 22:00 Calmoseptine Ointment TOPICAL 0600,2200 [facility] Protocol Calcium/Vitamin D 1 tablet 11/27/17 08:00 11/28/17 07:50 Os-Jose 500mg + D PO 1 tablet DAILYCM LAQUITA Administration Diltiazem HCl 60 mg 11/27/17 06:00 11/28/17 13:04 Cardizem PO 60 mg Q8 LAQUITA Administration Heparin Sodium (Beef Lung) 500 unit 11/26/17 14:59 Heparin 500 Unit/5 Ml (100/Ml) IV UD PRN HEPARIN FLUSH Metoprolol Tartrate 25 mg 11/26/17 14:00 11/28/17 13:04 Lopressor (Beta Wallace) PO 25 mg Q8 LAQUITA Administration Nystatin 1 applic 11/26/17 14:00 11/28/17 13:05 Mycostatin Powder TOPICAL 1 applicatio TID LAQUITA Administration Protocol Pantoprazole Sodium 20 mg 11/27/17 06:00 11/28/17 04:46 Protonix PO 20 mg DAILY LAQUITA Administration Polyethylene Glycol 17 gm 11/27/17 06:00 11/28/17 04:45 Miralax PO Not Given DAILY LAQUITA Rivaroxaban 20 mg 11/26/17 18:00 11/28/17 17:04 Xarelto PO 20 mg DAILY@1800 LAQUITA Administration Senna/Docusate Sodium 1 tablet 11/26/17 18:00 11/28/17 17:03 Senokot-S, Cindy-Colace PO Not Given BID LAQUITA Sodium Chloride 10 - 20 ml 11/26/17 14:59 11/26/17 21:46 IV 20 ml UD PRN Administration PICC FLUSH Tuberculin PPD 5 tu 12/04/17 10:00 Tubersol, Aplisol, Ppd ID 12/04/17 10:01 X1 ONE Problem List Shortness of breath (Acute) Atrial flutter with rapid ventricular response (Acute) Healthcare associated bacterial pneumonia (Acute) Acute kidney injury (Acute) Chest pain (Acute) Chronic obstructive pulmonary disease (Chronic) Vital Signs Temp Pulse Resp BP Pulse Ox 98.0 F 100 22 H 139/90 H 91 11/28/17 15:36 11/28/17 15:36 11/28/17 15:36 11/28/17 15:36 11/28/17 15:36 Oxygen Flow Rate (L/min) 2 Oxygen Delivery Method Nasal Cannula Weight: 163.407 kg Body Mass Index (BMI) 61.6 Sodium 147 mmol/L (136-145) H 11/27/17 05:10 Potassium 3.6 mmol/L (3.5-5.1) 11/27/17 05:10 Chloride 102 mmol/L (98-107) 11/27/17 05:10 Carbon Dioxide 35.0 mmol/L (21.0-32.0) H 11/27/17 05:10 Anion Gap 10 (5-15) 11/27/17 05:10 BUN 11 mg/dL (7-18) 11/27/17 05:10 Creatinine 0.88 mg/dL (0.55-1.02) 11/27/17 05:10 Est GFR (MDRD) Af Amer 82 mL/min (>60) 11/27/17 05:10 Est GFR (MDRD) Non-Af 68 mL/min (>60) 11/27/17 05:10 BUN/Creatinine Ratio 12.5 RATIO (10-20) 11/27/17 05:10 Glucose 87 mg/dL (74-106) 11/27/17 05:10 Assessment/Plan: Psychotropic Medications: Unnecessary Medications: Bowel Regimen: - Provider Comments Provider responsibility: Provider responsible to enter orders to implement recommendations Provider Comments to Recommendations by Pharmacy: Agree
--- NOTE | 2017-11-28 10:13 | PHA.CONS_ITS ---
<Damaso Torres D - Last Filed: 11/28/17 10:08> Progress Note - Pharmacy Subjective: TCU Admission Objective: Allergies aspirin [ASA] Adverse Reaction (Verified 11/14/17 14:34) stomach burning and sick to stomach propoxyphene HCl [From Darvon] Adverse Reaction (Verified 11/14/17 14:34) i get dizzy and pass out Current Medications Generic Name Dose Route Start Last Admin Trade Name Freq PRN Reason Stop Dose Admin Acetaminophen 1,000 mg 11/26/17 14:20 Tylenol PO Q8H PRN PRN MILD PAIN (1-3/10) Albuterol/Ipratropium 3 ml 11/26/17 12:44 11/28/17 03:45 Duoneb INHALATION 3 ml Q6H.RT PRN Administration Wheezing/SOB Bisacodyl 10 mg 11/26/17 14:21 Dulcolax PO DAILY PRN Constipation Calamine/Phenol 1 applic 11/28/17 22:00 Calmoseptine Ointment TOPICAL 0600,2200 [facility] Protocol Calcium/Vitamin D 1 tablet 11/27/17 08:00 11/28/17 07:50 Os-Jose 500mg + D PO 1 tablet DAILYCM LAQUITA Administration Diltiazem HCl 60 mg 11/27/17 06:00 11/28/17 04:45 Cardizem PO 60 mg Q8 LAQUITA Administration Heparin Sodium (Beef Lung) 500 unit 11/26/17 14:59 Heparin 500 Unit/5 Ml (100/Ml) IV UD PRN HEPARIN FLUSH Metoprolol Tartrate 25 mg 11/26/17 14:00 11/28/17 04:45 Lopressor (Beta Wallace) PO 25 mg Q8 LAQUITA Administration Nystatin 1 applic 11/26/17 14:00 11/28/17 04:46 Mycostatin Powder TOPICAL 1 applicatio TID [facility] Administration Protocol Pantoprazole Sodium 20 mg 11/27/17 06:00 11/28/17 04:46 Protonix PO 20 mg DAILY LAQUITA Administration Polyethylene Glycol 17 gm 11/27/17 06:00 11/28/17 04:45 Miralax PO Not Given DAILY LAQUITA Rivaroxaban 20 mg 11/26/17 18:00 11/27/17 17:11 Xarelto PO 20 mg DAILY@1800 LAQUITA Administration Senna/Docusate Sodium 1 tablet 11/26/17 18:00 11/28/17 04:46 Senokot-S, Cindy-Colace PO Not Given BID LAQUITA Sodium Chloride 10 - 20 ml 11/26/17 14:59 11/26/17 21:46 IV 20 ml UD PRN Administration PICC FLUSH Tuberculin PPD 5 tu 12/04/17 10:00 Tubersol, Aplisol, Ppd ID 12/04/17 10:01 X1 ONE Problem List Shortness of breath (Acute) Atrial flutter with rapid ventricular response (Acute) Healthcare associated bacterial pneumonia (Acute) Acute kidney injury (Acute) Chest pain (Acute) Chronic obstructive pulmonary disease (Chronic) Vital Signs Temp Pulse Resp BP Pulse Ox 96.6 F L 78 20 H 149/81 H 91 11/27/17 15:16 11/28/17 04:45 11/28/17 03:47 11/28/17 04:45 11/28/17 07:15 Oxygen Flow Rate (L/min) 2 Oxygen Delivery Method Nasal Cannula Weight: 162.885 kg Body Mass Index (BMI) 61.6 Sodium 147 mmol/L (136-145) H 11/27/17 05:10 Potassium 3.6 mmol/L (3.5-5.1) 11/27/17 05:10 Chloride 102 mmol/L (98-107) 11/27/17 05:10 Carbon Dioxide 35.0 mmol/L (21.0-32.0) H 11/27/17 05:10 Anion Gap 10 (5-15) 11/27/17 05:10 BUN 11 mg/dL (7-18) 11/27/17 05:10 Creatinine 0.88 mg/dL (0.55-1.02) 11/27/17 05:10 Est GFR (MDRD) Af Amer 82 mL/min (>60) 11/27/17 05:10 Est GFR (MDRD) Non-Af 68 mL/min (>60) 11/27/17 05:10 BUN/Creatinine Ratio 12.5 RATIO (10-20) 11/27/17 05:10 Glucose 87 mg/dL (74-106) 11/27/17 05:10 Assessment/Plan: 1) Pain APAP fo mild pain. Continue to monitor prn medication use, daily pain scores. 2) AFlutter Diltiazem, metoprolol, rivaroxaban. Continue to monitor BP/HR, renal function , s/s bleeding/clot. 3) GI Pantoprazole daily. Continue to monitor s/s GI distress. Psychotropic Medications: None Unnecessary Medications: None Bowel Regimen: 4) Senna/s, PEG, prn bisacodyl. Continue to monitor prn medication use, for constipation/diarrhea. Date of Note:: 11/28/17 - Provider Comments Provider responsibility: Provider responsible to enter orders to implement recommendations <Ryan Cat Chi - Last Filed: 11/28/17 17:47> Progress Note - Pharmacy Subjective: [] Objective: Allergies aspirin [ASA] Adverse Reaction (Verified 11/14/17 14:34) stomach burning and sick to stomach propoxyphene HCl [From Darvon] Adverse Reaction (Verified 11/14/17 14:34) i get dizzy and pass out Current Medications Generic Name Dose Route Start Last Admin Trade Name Freq PRN Reason Stop Dose Admin Acetaminophen 1,000 mg 11/26/17 14:20 Tylenol PO Q8H PRN PRN MILD PAIN (1-3/10) Albuterol/Ipratropium 3 ml 11/28/17 10:15 Duoneb INHALATION Q6H PRN PRN Wheezing/SOB Bisacodyl 10 mg 11/26/17 14:21 Dulcolax PO DAILY PRN Constipation Calamine/Phenol 1 applic 11/28/17 22:00 Calmoseptine Ointment TOPICAL 0600,2200 [facility] Protocol Calcium/Vitamin D 1 tablet 11/27/17 08:00 11/28/17 07:50 Os-Jose 500mg + D PO 1 tablet DAILYCM LAQUITA Administration Diltiazem HCl 60 mg 11/27/17 06:00 11/28/17 13:04 Cardizem PO 60 mg Q8 LAQUITA Administration Heparin Sodium (Beef Lung) 500 unit 11/26/17 14:59 Heparin 500 Unit/5 Ml (100/Ml) IV UD PRN HEPARIN FLUSH Metoprolol Tartrate 25 mg 11/26/17 14:00 11/28/17 13:04 Lopressor (Beta Wallace) PO 25 mg Q8 LAQUITA Administration Nystatin 1 applic 11/26/17 14:00 11/28/17 13:05 Mycostatin Powder TOPICAL 1 applicatio TID LAQUITA Administration Protocol Pantoprazole Sodium 20 mg 11/27/17 06:00 11/28/17 04:46 Protonix PO 20 mg DAILY LAQUITA Administration Polyethylene Glycol 17 gm 11/27/17 06:00 11/28/17 04:45 Miralax PO Not Given DAILY LAQUITA Rivaroxaban 20 mg 11/26/17 18:00 11/28/17 17:04 Xarelto PO 20 mg DAILY@1800 LAQUITA Administration Senna/Docusate Sodium 1 tablet 11/26/17 18:00 11/28/17 17:03 Senokot-S, Cindy-Colace PO Not Given BID LAQUITA Sodium Chloride 10 - 20 ml 11/26/17 14:59 11/26/17 21:46 IV 20 ml UD PRN Administration PICC FLUSH Tuberculin PPD 5 tu 12/04/17 10:00 Tubersol, Aplisol, Ppd ID 12/04/17 10:01 X1 ONE Problem List Shortness of breath (Acute) Atrial flutter with rapid ventricular response (Acute) Healthcare associated bacterial pneumonia (Acute) Acute kidney injury (Acute) Chest pain (Acute) Chronic obstructive pulmonary disease (Chronic) Vital Signs Temp Pulse Resp BP Pulse Ox 98.0 F 100 22 H 139/90 H 91 11/28/17 15:36 11/28/17 15:36 11/28/17 15:36 11/28/17 15:36 11/28/17 15:36 Oxygen Flow Rate (L/min) 2 Oxygen Delivery Method Nasal Cannula Weight: 163.407 kg Body Mass Index (BMI) 61.6 Sodium 147 mmol/L (136-145) H 11/27/17 05:10 Potassium 3.6 mmol/L (3.5-5.1) 11/27/17 05:10 Chloride 102 mmol/L (98-107) 11/27/17 05:10 Carbon Dioxide 35.0 mmol/L (21.0-32.0) H 11/27/17 05:10 Anion Gap 10 (5-15) 11/27/17 05:10 BUN 11 mg/dL (7-18) 11/27/17 05:10 Creatinine 0.88 mg/dL (0.55-1.02) 11/27/17 05:10 Est GFR (MDRD) Af Amer 82 mL/min (>60) 11/27/17 05:10 Est GFR (MDRD) Non-Af 68 mL/min (>60) 11/27/17 05:10 BUN/Creatinine Ratio 12.5 RATIO (10-20) 11/27/17 05:10 Glucose 87 mg/dL (74-106) 11/27/17 05:10 Assessment/Plan: Psychotropic Medications: Unnecessary Medications: Bowel Regimen: - Provider Comments Provider responsibility: Provider responsible to enter orders to implement recommendations Provider Comments to Recommendations by Pharmacy: Agree
[2017-11-28] MEDS: Rivaroxaban 20 MG Tablet PO (17:04)
[2017-11-28] MEDS: Menthol/Lanolin/Calamine/Znox 113 GM Tube 1 APPLIC TOPICAL (20:17)
[2017-11-29] VITALS (9 sets, daily range): BP systolic 135–142; BP diastolic 82–97; PULSE 62–119; RESP 12–20; TEMP 35.7; O2SAT 95–96
[2017-11-29] MEDS: Pantoprazole Sodium 20 MG Tablet PO (06:22)
[2017-11-29] MEDS: Metoprolol Tartrate 25 MG Tablet PO ×2 (06:22→14:29)
[2017-11-29] MEDS: Nystatin Powder 15gm Bottle 1 APPLIC TOPICAL ×3 (06:23→20:02)
[2017-11-29] MEDS: dilTIAZem 60 MG Tablet PO ×3 (06:23→20:02)
[2017-11-29] MEDS: Menthol/Lanolin/Calamine/Znox 113 GM Tube 1 APPLIC TOPICAL ×2 (06:25→20:01)
[2017-11-29] MEDS: Calcium Carb/Vitamin D 1 TABLET Tablet PO (08:16)
--- NOTE | 2017-11-29 09:21 | CASEMGMT ---
Plan of care meeting held. Resident present as well as resident daughter. No discharge date set at this time. Resident to continue with further care and treatment on the Transitional Care Unit. Resident plans to discharge to home with spouse and daughter at time of discharge. Support given. Will continue to follow. Saritha AGGARWAL, DRAFTER CONSTRUCTION
--- NOTE | 2017-11-29 16:28 | NURSING ---
Per business intelligence etl developer, patient now cardiac, 1800 calorie, low sodium diet.
--- NOTE | 2017-11-29 17:21 | NURSING ---
Pt has c/o heart flutter during therapy, causing anxiety. Dr. Cat made aware. NO to change metoprolol to 50mg BID.
[2017-11-29] MEDS: Rivaroxaban 20 MG Tablet PO (18:16)
[2017-11-29] MEDS: Metoprolol Tartrate 50 MG Tablet PO (18:17)
--- NOTE | 2017-11-30 05:15 | CPS ---
pt in bathroom
[2017-11-30] MEDS: Menthol/Lanolin/Calamine/Znox 113 GM Tube 1 APPLIC TOPICAL ×2 (05:56→21:05)
[2017-11-30 05:57] VITALS: BP 140/82; PULSE 70
[2017-11-30] MEDS: dilTIAZem 60 MG Tablet PO ×3 (05:57→21:10)
[2017-11-30] MEDS: Metoprolol Tartrate 50 MG Tablet PO ×2 (05:57→16:38)
[2017-11-30] MEDS: Pantoprazole Sodium 20 MG Tablet PO (05:58)
[2017-11-30] MEDS: Nystatin Powder 15gm Bottle 1 APPLIC TOPICAL ×3 (05:58→21:05)
[2017-11-30 07:38] VITALS: O2SAT 94
[2017-11-30] MEDS: Calcium Carb/Vitamin D 1 TABLET Tablet PO (09:19)
--- NOTE | 2017-11-30 09:23 | MDS.RN ---
Pain interview for ITZEL 12/03/17 completed.
[2017-11-30 15:12] VITALS: BP 167/89; PULSE 63; RESP 18; TEMP 35.1; O2SAT 92
[2017-11-30 16:38] VITALS: BP 167/89; PULSE 63
[2017-11-30] MEDS: Rivaroxaban 20 MG Tablet PO (16:39)
[2017-11-30 21:00] VITALS: PULSE 72; RESP 20; O2SAT 93
[2017-11-30 21:50] VITALS: PULSE 109; RESP 12; RESP 20; O2SAT 96
[2017-12-01] VITALS (8 sets, daily range): BP systolic 135–144; BP diastolic 49–76; PULSE 66–128; RESP 12–22; TEMP 36.6; O2SAT 91–96
[2017-12-01] MEDS: Nystatin Powder 15gm Bottle 1 APPLIC TOPICAL ×3 (06:15→20:56)
[2017-12-01] MEDS: Menthol/Lanolin/Calamine/Znox 113 GM Tube 1 APPLIC TOPICAL ×2 (06:15→20:55)
[2017-12-01] MEDS: Pantoprazole Sodium 20 MG Tablet PO (06:16)
[2017-12-01] MEDS: dilTIAZem 60 MG Tablet PO ×3 (06:16→20:55)
[2017-12-01] MEDS: Metoprolol Tartrate 50 MG Tablet PO ×2 (06:16→17:32)
[2017-12-01] MEDS: Calcium Carb/Vitamin D 1 TABLET Tablet PO (08:02)
--- NOTE | 2017-12-01 08:46 | CASEMGMT ---
BIMS and PHQ9 interviews for MDS assessment completed on this date. JASEN Maldonado
--- NOTE | 2017-12-01 12:49 | NURSING ---
pt returned from appt with CHERISE today, referral made to Dr Patricio Young at [facility] for electrophysiology therapy. They will call pt with appt day/time. f/u appt with PAOLA Frausto in Jun 04 at 10a
[2017-12-01] MEDS: Rivaroxaban 20 MG Tablet PO (17:32)
[2017-12-02] VITALS (8 sets, daily range): BP systolic 143–149; BP diastolic 86–93; PULSE 66–116; RESP 12–18; TEMP 36.4; O2SAT 93–96
[2017-12-02] MEDS: Metoprolol Tartrate 50 MG Tablet PO ×2 (06:34→17:36)
[2017-12-02] MEDS: dilTIAZem 60 MG Tablet PO ×3 (06:34→21:07)
[2017-12-02] MEDS: Pantoprazole Sodium 20 MG Tablet PO (06:34)
[2017-12-02] MEDS: Menthol/Lanolin/Calamine/Znox 113 GM Tube 1 APPLIC TOPICAL ×2 (06:35→21:06)
[2017-12-02] MEDS: Nystatin Powder 15gm Bottle 1 APPLIC TOPICAL ×3 (06:35→21:06)
[2017-12-02] MEDS: Calcium Carb/Vitamin D 1 TABLET Tablet PO (09:04)
[2017-12-02] MEDS: Rivaroxaban 20 MG Tablet PO (17:36)
[2017-12-03] VITALS (8 sets, daily range): BP systolic 148–159; BP diastolic 66–76; PULSE 60–124; RESP 12–18; TEMP 36.4; O2SAT 90–96
[2017-12-03] MEDS: Metoprolol Tartrate 50 MG Tablet PO ×2 (06:58→18:04)
[2017-12-03] MEDS: Menthol/Lanolin/Calamine/Znox 113 GM Tube 1 APPLIC TOPICAL ×2 (06:58→20:26)
[2017-12-03] MEDS: dilTIAZem 60 MG Tablet PO ×3 (06:58→20:28)
[2017-12-03] MEDS: Nystatin Powder 15gm Bottle 1 APPLIC TOPICAL ×3 (06:59→20:27)
[2017-12-03] MEDS: Pantoprazole Sodium 20 MG Tablet PO (06:59)
[2017-12-03] MEDS: Calcium Carb/Vitamin D 1 TABLET Tablet PO (07:57)
[2017-12-03] MEDS: Rivaroxaban 20 MG Tablet PO (18:03)
[2017-12-04] VITALS (8 sets, daily range): BP systolic 164; BP diastolic 77; PULSE 62–80; RESP 12–18; TEMP 36.7; O2SAT 90–95
[2017-12-04] MEDS: Menthol/Lanolin/Calamine/Znox 113 GM Tube 1 APPLIC TOPICAL ×2 (06:24→19:48)
[2017-12-04] MEDS: Nystatin Powder 15gm Bottle 1 APPLIC TOPICAL ×3 (06:24→19:49)
[2017-12-04] MEDS: dilTIAZem 60 MG Tablet PO ×3 (06:24→19:47)
[2017-12-04] MEDS: Metoprolol Tartrate 50 MG Tablet PO ×2 (06:24→17:18)
[2017-12-04] MEDS: Pantoprazole Sodium 20 MG Tablet PO (06:25)
[2017-12-04 06:32] LABS: Absolute Lymphocyte Count 1.47 X10^3/ul (0.83-4.51); Absolute Neutrophil Count 3.6 X10^3/uL (2.0-7.7); Basophil# 0.01 X10^3/uL; Basophil% 0.2 % (0-1); Eosinophil# 0.18 X10^3/uL; Hematocrit 46.1 % (37-47); Hemoglobin 14.1 g/dl (12.0-15.0); Lymphocyte # 1.47 X10^3/ul (4.0); Lymphocyte % 24.6 % (19-41); Mean Corp Hgb Conc 30.6 g/gl (32-36); Mean Corpuscular Hgb 29.3 pg (27.0-32.0); Mean Corpuscular Volume 95.6 fL (81-99); Mean Platelet Vol. 10.6 fl (6.2-12.0); Monocyte% 11.7 % (0-10); Neutrophil # 3.61 X10^3/uL (2.7-7.7); Neutrophil % 60.3 % (47-70); Platelet Count 157 K/mm3 (150-450); RBC Distribution Width CV 14.1 % (11.6-14.6); RBC Distribution Width SD 48.3 fl (35.1-43.9); Red Blood Count 4.82 M/mm3 (4.2-5.4)
[2017-12-04 06:38] LABS: POSITIVE COUNT NO; POSITIVE DIFFERENTIAL NO; POSITIVE MORPHOLOGY NO
[2017-12-04 06:56] LABS: Anion Gap 6 (5-15); BUN 12 mg/dL (7-18); BUN/Creat Ratio 15.4 RATIO (10-20); Calcium,Total 8.6 mg/dL (8.5-10.1); Chloride 106 mmol/L (98-107); Creatinine, Serum 0.78 mg/dL (0.55-1.02); EST Glomerular Filtration Rate 78 mL/min (>60); Est Glom Filt Rate - Afr Amer 94 mL/min (>60); Estimated Creatinine Clearance 45.85 ml/min; Glucose 86 mg/dL (74-106); Potassium 3.9 mmol/L (3.5-5.1); Sodium Level 145 mmol/L (136-145)
[2017-12-04] MEDS: Calcium Carb/Vitamin D 1 TABLET Tablet PO (08:36)
[2017-12-04] MEDS: Tuberculin,Purif.prot.deriv. 50 TU/ML Vial 5 ML ID (10:18)
[2017-12-04] MEDS: Rivaroxaban 20 MG Tablet PO (17:18)
[2017-12-05] VITALS (8 sets, daily range): BP systolic 128–144; BP diastolic 74–92; PULSE 62–124; RESP 12–18; TEMP 36.6; O2SAT 92–96
[2017-12-05] MEDS: Metoprolol Tartrate 50 MG Tablet PO ×2 (06:25→17:32)
[2017-12-05] MEDS: dilTIAZem 60 MG Tablet PO ×3 (06:25→19:40)
[2017-12-05] MEDS: Pantoprazole Sodium 20 MG Tablet PO (06:26)
[2017-12-05] MEDS: Menthol/Lanolin/Calamine/Znox 113 GM Tube 1 APPLIC TOPICAL ×2 (06:36→19:39)
[2017-12-05] MEDS: Nystatin Powder 15gm Bottle 1 APPLIC TOPICAL ×3 (06:36→19:39)
[2017-12-05] MEDS: Calcium Carb/Vitamin D 1 TABLET Tablet PO (07:41)
--- NOTE | 2017-12-05 11:06 | CASEMGMT ---
Social Work Spoke with resident. Resident requesting for discharge date to be set for 12/08/17. Team is agreeable to discharge date. Resident plans to discharge to home with family. Resident declining to have any continued therapy and requesting for a home exercise program to be given to resident. Therapy aware of resident request and will provide resident with a home exercise program. Resident is new on oxygen. Resident to have home oxygen test completed on by nursing staff, nursing staff notified. Resident reporting to have all other needed durable medical equipment already set up within the home. Resident declining for this social work professor to contact resident family in regards to discharge date/plan. Resident reporting to be able to contact resident family later today. Support given. Proposed discharge date: 12/08/17 PLAN: Discharge to home with family. Saritha AGGARWAL, ACID CONDITIONING WORKER
[2017-12-05] MEDS: LORazepam 0.5 MG Tablet PO (15:18)
[2017-12-05] MEDS: Rivaroxaban 20 MG Tablet PO (17:32)
--- NOTE | 2017-12-05 22:35 | PCM.DC ---
- Discharge Diagnoses Current Active Problems: Current Active and Chronic Problems (Last Updated 12/01/17 @ 11:36 by Lisbet Stephens) Shortness of breath (Acute) Atrial flutter with rapid ventricular response (Acute) Healthcare associated bacterial pneumonia (Acute) Acute kidney injury (Acute) Chest pain (Acute) Chronic obstructive pulmonary disease (Chronic) You will use the following diet at home:: No restrictions, Regular Your food should be the consistency of: Regular Your liquids should be the consistency of: Regular/Thin Discharge Activity: Return to Normal Activity, May Shower, Use Walker Weight Bearing Status: Weight bearing as tolerated Call your doctor if you observe: Fever of 101 or Higher, Inability to urinate, Inability to have a bowel movement, Shortness of breath, Chest pain, Uncontrolled pain Allergies/Adverse Reactions: Allergies aspirin [ASA] Adverse Reaction (Verified 12/01/17 11:28) stomach burning and sick to stomach propoxyphene HCl [From Darvon] Adverse Reaction (Verified 12/01/17 11:28) i get dizzy and pass out Medications to take at Discharge Calcium Carbonate/Vitamin D3 [Calcium 500+D Tablet Chew] 1 ea PO DAILY 11/14/17 Diltiazem [Cardizem] 60 mg PO Q8 11/26/17 acetaminophen 500 mg tablet 1,000 mg PO Q6H PRN tab 12/01/17 metoprolol tartrate 25 mg tablet 50 mg PO BID tab 12/01/17 pantoprazole 20 mg tablet,delayed release 20 mg PO QDAY 12/01/17 Acetaminophen [Tylenol] 1,000 mg PO Q8H PRN PRN tablet 12/05/17 Diltiazem [Cardizem] 60 mg PO Q8 #90 tab 12/05/17 Lorazepam [Ativan] 0.5 mg PO Q6H PRN PRN #14 tab 12/05/17 Menthol/Lanolin/Calamine/Znox [Calmoseptine Ointment] 1 applic TOPICAL 0600,2200 tube 12/05/17 Metoprolol Tartrate [Lopressor (beta maeve)] 50 mg PO BID #60 tab 12/05/17 Nystatin Powder [Mycostatin Powder] 1 applic TOPICAL TID bottle 12/05/17 Pantoprazole Sodium [Protonix] 20 mg PO DAILY #30 tab 12/05/17 Rivaroxaban [Xarelto] 20 mg PO DAILY@1800 #30 tab 12/05/17 The following prescriptions were given: Lorazepam [Ativan] 0.5 mg PO Q6H PRN PRN #14 tab PRN Reason: ANXIETY Diltiazem [Cardizem] 60 mg PO Q8 #90 tab Pantoprazole Sodium [Protonix] 20 mg PO DAILY #30 tab Rivaroxaban [Xarelto] 20 mg PO DAILY@1800 #30 tab Metoprolol Tartrate [Lopressor (beta maeve)] 50 mg PO BID #60 tab Primary Care Physician: Alfonzo Cha MD [Primary Care Provider] - Please follow up with your Primary Care Physician in: 1 week. Test Results: Test results from this visit will be discussed in further detail at your follow-up appointment, if applicable. Please Follow Up With: Lisbet Villagomez PA When: [phone] Please Follow Up With: Dr Marshall Newman When: 2 weeks. Proposed Discharge Date: 12/08/17
--- NOTE | 2017-12-05 22:41 | DS.PCM_ITS ---
Discharge Date and Diagnosis - Problem List Patient Problems: Active and Suspected Problems (Last Updated 12/01/17 @ 11:36 by Lisbet Stephens ) Shortness of breath (Acute) Atrial flutter with rapid ventricular response (Acute) Healthcare associated bacterial pneumonia (Acute) Acute kidney injury (Acute) Chest pain (Acute) Date of Admission: 11/26/17 Date of Discharge: 12/08/17 - Primary Discharge Diagnosis Active and Suspected Problems (Last Updated 12/01/17 @ 11:36 by Lisbet Stephens ) Shortness of breath (Acute) Atrial flutter with rapid ventricular response (Acute) Healthcare associated bacterial pneumonia (Acute) Acute kidney injury (Acute) Chest pain (Acute) - Secondary Discharge Diagnosis Chronic Problems (Last Updated 12/01/17 @ 11:36 by Lisbet Stephens) Chronic obstructive pulmonary disease (Chronic) Morbid obesity (Chronic) HTN (hypertension) (Chronic) GERD (gastroesophageal reflux disease) (Chronic) Hospital Course and Treatment Imaging Results: 11/29/17 16:22 Diet: Cardiac: Calorie-Controlled Food consistency:: Regular Liquid Consistency:: Regular/Thin Dietary Modifications:: Fluid Restricted Diet Is pt able to select menu?: Yes Diet Comments: low sodium diet, How many daily calories?: 1800 calorie Labs (Last 48 Hours) 12/04/17 12/04/17 05:06 05:06 WBC 6.0 RBC 4.82 Hgb 14.1 Hct 46.1 MCV 95.6 MCH 29.3 MCHC 30.6 L RDW 14.1 RDW Differential 48.3 H Plt Count 157 MPV 10.6 Immature Gran % (Auto) 0.200 Neut % (Auto) 60.3 Lymph % (Auto) 24.6 Hamilton % (Auto) 11.7 H Eos % (Auto) 3.0 Baso % (Auto) 0.2 Absolute Neuts (auto) 3.6 Absolute Lymphs (auto) 1.47 Total Counted Not Reportable Sodium 145 Potassium 3.9 Chloride 106 Carbon Dioxide 33.0 H Anion Gap 6 BUN 12 Creatinine 0.78 Estim Creat Clear Calc 45.85 Est GFR (MDRD) Af Amer 94 Est GFR (MDRD) Non-Af 78 BUN/Creatinine Ratio 15.4 Glucose 86 Calcium 8.6 Operations: None Procedures: None Summary of Care Provided: The patient is a 67 year old Female with below past medical history hospitalized for atrial flutter requiring cardioversion x 3, acute respiratory failure requiring intubation secondary to H. Flu pneumonia, complicated by acute kidney injury, admitted to TCU with debility, here for rehabilitation, strengthening, prior to discharge home with family. Resident noted to have daytime somnolence, fatigue, nighttime hypoxia, snoring, and was positive on STOP screening for sleep apnea. Recommend sleep study. Discharge home with family. Sleep study as outpatient. Discharge Diet: No Restrictions Discharge Activity: Return to Normal Activity, May Shower, Use Walker Weight Bearing Status: Weight bearing as tolerated Call your doctor if you observe: Fever of 101 or Higher, Inability to urinate, Inability to have a bowel movement, Shortness of breath, Chest pain, Uncontrolled pain Home Medications: Medications to take at Discharge Calcium Carbonate/Vitamin D3 [Calcium 500+D Tablet Chew] 1 ea PO DAILY 11/14/17 Diltiazem [Cardizem] 60 mg PO Q8 11/26/17 acetaminophen 500 mg tablet 1,000 mg PO Q6H PRN tab 12/01/17 metoprolol tartrate 25 mg tablet 50 mg PO BID tab 12/01/17 pantoprazole 20 mg tablet,delayed release 20 mg PO QDAY 12/01/17 Acetaminophen [Tylenol] 1,000 mg PO Q8H PRN PRN tablet 12/05/17 Diltiazem [Cardizem] 60 mg PO Q8 #90 tab 12/05/17 Lorazepam [Ativan] 0.5 mg PO Q6H PRN PRN #14 tab 12/05/17 Menthol/Lanolin/Calamine/Znox [Calmoseptine Ointment] 1 applic TOPICAL 0600, 2200 tube 12/05/17 Metoprolol Tartrate [Lopressor (beta maeve)] 50 mg PO BID #60 tab 12/05/17 Nystatin Powder [Mycostatin Powder] 1 applic TOPICAL TID bottle 12/05/17 Pantoprazole Sodium [Protonix] 20 mg PO DAILY #30 tab 12/05/17 Rivaroxaban [Xarelto] 20 mg PO DAILY@1800 #30 tab 12/05/17 Following Prescrptions Were Given to Patient: Lorazepam [Ativan] 0.5 mg PO Q6H PRN PRN #14 tab PRN Reason: ANXIETY Diltiazem [Cardizem] 60 mg PO Q8 #90 tab Pantoprazole Sodium [Protonix] 20 mg PO DAILY #30 tab Rivaroxaban [Xarelto] 20 mg PO DAILY@1800 #30 tab Metoprolol Tartrate [Lopressor (beta maeve)] 50 mg PO BID #60 tab Primary Care Physician: Alfonzo Cha MD [Primary Care Provider] - Please follow up with your Primary Care Physician in: 1 week. Please Follow Up With: Lisbet Villagomez PA When: [phone] Please Follow Up With: Dr Marshall Newman When: 2 weeks. Disposition: Home Minutes spent on discharge:: 30 Patient Condition:: Stable Medical Necessity - Tobacco Use Smoking Status: Former smoker Tobacco Use: Non-smoker Meaningful Use Info Meaningful Use Diagnoses (Choose all that apply): None applicable
[2017-12-06] VITALS (9 sets, daily range): BP systolic 110–136; BP diastolic 58–85; PULSE 67–108; RESP 12–20; TEMP 36.8; O2SAT 94–96
[2017-12-06] MEDS: dilTIAZem 60 MG Tablet PO ×3 (06:33→20:17)
[2017-12-06] MEDS: Pantoprazole Sodium 20 MG Tablet PO (06:33)
[2017-12-06] MEDS: Metoprolol Tartrate 50 MG Tablet PO ×2 (06:33→17:24)
[2017-12-06] MEDS: Nystatin Powder 15gm Bottle 1 APPLIC TOPICAL ×3 (06:35→20:16)
[2017-12-06] MEDS: Menthol/Lanolin/Calamine/Znox 113 GM Tube 1 APPLIC TOPICAL ×2 (06:36→20:17)
[2017-12-06] MEDS: Calcium Carb/Vitamin D 1 TABLET Tablet PO (08:04)
[2017-12-06] MEDS: Rivaroxaban 20 MG Tablet PO (17:24)
--- NOTE | 2017-12-06 18:03 | NURSING ---
pt requesting xarelto be changed to another medication. Going to try pt on eliquis, Dr Cat sent script to pharmacy. Pt aware & waiting for pricing from pharmacy
[2017-12-06] MEDS: LORazepam 0.5 MG Tablet PO (20:16)
[2017-12-07] VITALS (9 sets, daily range): BP systolic 148; BP diastolic 50–82; PULSE 71–122; RESP 12–25; TEMP 36.4; O2SAT 79–98
[2017-12-07] MEDS: Menthol/Lanolin/Calamine/Znox 113 GM Tube 1 APPLIC TOPICAL ×2 (06:15→20:23)
[2017-12-07] MEDS: dilTIAZem 60 MG Tablet PO ×3 (06:15→20:22)
[2017-12-07] MEDS: Pantoprazole Sodium 20 MG Tablet PO (06:15)
[2017-12-07] MEDS: Metoprolol Tartrate 50 MG Tablet PO ×2 (06:15→16:59)
[2017-12-07] MEDS: Nystatin Powder 15gm Bottle 1 APPLIC TOPICAL ×3 (06:16→20:23)
[2017-12-07] MEDS: LORazepam 0.5 MG Tablet PO ×2 (08:04→16:59)
[2017-12-07] MEDS: Calcium Carb/Vitamin D 1 TABLET Tablet PO (08:05)
--- NOTE | 2017-12-07 10:07 | MDS.RN ---
Information for the mds was obtained from review of the clinical record, interview of resident, staff, and direct observation of resident's care.
--- NOTE | 2017-12-07 15:40 | CASEMGMT ---
Social Work Nursing completing home oxygen test, resident qualifies for home oxygen. Spoke with resident in room. Resident aware of above information and requesting for oxygen to be set up through [employer]. Resident also reporting to not be able to afford prescribed blood thinner. This social studies department chair providing resident with prescription assistance program as well as 30 day trial card. Resident to active with 30 day trial and complete application for prescription assistance program is primary care physician is recommending for resident to continue on blood thinners. Resident also provided with a medicaid application. Resident voicing to have no further needs at this time. Support given. Proposed discharge date: 12/08/17 PLAN: Discharge to home with spouse. Saritha AGGARWAL, CROSSBAR FRAME WIRER
[2017-12-07] MEDS: Rivaroxaban 20 MG Tablet PO (16:59)
[2017-12-08 00:30] VITALS: PULSE 72; RESP 12; RESP 18; O2SAT 97
[2017-12-08 03:30] VITALS: PULSE 71; RESP 12; RESP 17; O2SAT 97
[2017-12-08 06:09] VITALS: BP 134/71; PULSE 80
[2017-12-08] MEDS: Metoprolol Tartrate 50 MG Tablet PO (06:09)
[2017-12-08] MEDS: Pantoprazole Sodium 20 MG Tablet PO (06:09)
[2017-12-08] MEDS: dilTIAZem 60 MG Tablet PO (06:09)
[2017-12-08] MEDS: Menthol/Lanolin/Calamine/Znox 113 GM Tube 1 APPLIC TOPICAL (06:12)
[2017-12-08] MEDS: Nystatin Powder 15gm Bottle 1 APPLIC TOPICAL (06:13)
[2017-12-08 06:14] VITALS: PULSE 80; O2SAT 97
[2017-12-08 07:42] VITALS: O2SAT 96
[2017-12-08] MEDS: LORazepam 0.5 MG Tablet PO (07:59)
[2017-12-08] MEDS: Calcium Carb/Vitamin D 1 TABLET Tablet PO (07:59)
[2017-12-08 09:57] VITALS: BP 161/67; PULSE 93; RESP 16; TEMP 36.7; O2SAT 94
== END 2017-12-08 11:50 | disposition home or self-care (01) | DRG 947 ==
PROVIDERS: Admitting Provider Family Medicine Geriatric Medicine; Family Provider Family Medicine; PCP Family Medicine; Visit Provider Family Medicine Geriatric Medicine
DX: R53.81 Other malaise (principal); J96.00 Acute respiratory failure, unspecified whether with hypoxia or hypercapnia; Z68.44 Body mass index [BMI] 60.0-69.9, adult; I48.92 Unspecified atrial flutter; J44.9 Chronic obstructive pulmonary disease, unspecified; E66.01 Morbid (severe) obesity due to excess calories; Z71.3 Dietary counseling and surveillance; K21.9 Gastro-esophageal reflux disease without esophagitis; G47.30 Sleep apnea, unspecified; B35.4 Tinea corporis; Z87.891 Personal history of nicotine dependence; Z87.01 Personal history of pneumonia (recurrent); I10 Essential (primary) hypertension
CPT/HCPCS: 36415; 80048; 85025; 93005; 94002; 94003; 94640; 97110; 97116; 97162; 97165; 97530; 97535; 97802; A4216

== ENCOUNTER → 2017-12-20 20:24 | Outpatient (CLI) | payer MEDICARE, SELFPAY | LOC: SL 20:24 | PROVIDERS: Family Provider Family Medicine; PCP Family Medicine; Visit Provider Nurse Practitioner Acute Care | DX: G47.33 Obstructive sleep apnea (adult) (pediatric) (principal); R40.0 Somnolence; R06.83 Snoring | CPT/HCPCS: 95810 ==

== ENCOUNTER → 2017-12-21 06:18 | Outpatient (CLI) | payer MEDICARE, SELFPAY ==
--- NOTE | 2017-12-21 15:01 | PFTCOMP ---
COMPLETE PULMONARY FUNCTION TEST INTERPRETATION Brief HPI: Patient is a 67 year old female, currently under the care of Esther Arce, who presents to [facility] for complete pulmonary function tests secondary to diagnosis of dyspnea. Respiratory therapist reports good effort and reproducible results. Interpretation: Forced expiration spirometry shows a severe large airways obstructive ventilatory defect with an FEV1 of 39% predicted. There is no significant bronchodilator response by ATS criteria. Spirograms are of good quality and plateau slowly, indicating slowly emptying areas of the lungs. The respiratory flow volume loop shows decreased expiratory flow rates at all lung volumes consistent with airway obstruction. Lung volumes by body plethysmography show a decreased total lung capacity at 2.76 L, 60% predicted. All other lung volumes are reduced symmetrically. Diffusion capacity by carbon monoxide is decreased at 40% predicted. The airway resistance is elevated. No previous pulmonary function tests were available for review. Impression: Irreversible severe mixed ventilatory defect with a symmetric reduction diffusing capacity.
== END ==
LOC: PSN 06:19
PROVIDERS: Family Provider Family Medicine; PCP Family Medicine; Visit Provider Nurse Practitioner Acute Care
DX: R06.02 Shortness of breath (principal)
CPT/HCPCS: 94060; 94726; 94729

== ENCOUNTER → 2017-12-28 10:45 | Outpatient (CLI) | payer MEDICARE, SELFPAY ==
[2017-12-28 11:13] VITALS: PULSE 103; PULSE 119; PULSE 121; PULSE 67; PULSE 92; O2SAT 90; O2SAT 91; O2SAT 93; O2SAT 94
--- NOTE | 2017-12-28 11:20 | CPS ---
Patient arrived in wheelchair. Patient stated she has trouble walking due to back pain. Family member followed behind patient with wheelchair. At minute 2 patient had to sit and continued to sit until minute 4 of test.
--- NOTE | 2017-12-29 12:55 | PCM.PSN.6M ---
PSN 6 Minute Walk Test - 6 Minute Walk Test 6 Minute Walk Test: 6 Minute Walk Test PSN:6-Minute Walk Test Start: 12/28/17 11:13 Freq: Status: Active Protocol: [id number] Document 12/28/17 11:13 B (Rec: 12/28/17 11:25 SMB [id number]) 6 Minute Walk Test Date Performed 12/28/17 Time Performed 10:52 Height 5 ft 4 in Weight: 348 lb Weight in Pounds 348.[address]: Esther Arce Assistive device used: None Pre-test Oxygen Flow Rate (L/min) (L/min) 2 Oxygen Delivery Method Nasal Cannula Pulse Ox (%) 94 Pulse Rate (60-100 beats/min) 121 H Dyspnea Delfino Scale (0-10) 6 Exertion Delfino Scale (6-20) 11 1st minute Oxygen Flow Rate (L/min) (L/min) 2 Oxygen Delivery Method Nasal Cannula Pulse Ox (%) 93 Pulse Rate (60-100 beats/min) 67 2nd minute Oxygen Flow Rate (L/min) (L/min) 2 Oxygen Delivery Method Nasal Cannula Pulse Ox (%) 90 Pulse Rate (60-100 beats/min) 121 H 3rd minute Oxygen Flow Rate (L/min) (L/min) 2 Oxygen Delivery Method Nasal Cannula Pulse Ox (%) 93 Pulse Rate (60-100 beats/min) 119 H 4th minute Oxygen Flow Rate (L/min) (L/min) 2 Oxygen Delivery Method Nasal Cannula Pulse Ox (%) 93 Pulse Rate (60-100 beats/min) 121 H 5th minute Oxygen Flow Rate (L/min) (L/min) 2 Oxygen Delivery Method Nasal Cannula Pulse Ox (%) 94 Pulse Rate (60-100 beats/min) 103 H 6th minute Oxygen Flow Rate (L/min) (L/min) 2 Oxygen Delivery Method Nasal Cannula Pulse Ox (%) 91 Pulse Rate (60-100 beats/min) 121 H Post-test Oxygen Flow Rate (L/min) (L/min) 2 Oxygen Delivery Method Nasal Cannula Pulse Ox (%) 94 Pulse Rate (60-100 beats/min) 92 Dyspnea Delfino Scale (0-10) 7 Exertion Delfino Scale (6-20) 13 Full Laps Walked 4 Partial Lap, Number of Tiles Walked 33 Total Distance Walked (ft) 269 12/28/17 11:20 Cardiopulmonary Services by Shantelle Armstrong Patient arrived in wheelchair. Patient stated she has trouble walking due to back pain. Family member followed behind patient with wheelchair. At minute 2 patient had to sit and continued to sit until minute 4 of test. Initialized on 12/28/17 11:20 - END OF NOTE - Interpretation Interpretation: The patient ambulated 269 feet over the course of 6 minutes on supplemental oxygen, with a prolonged break. Pretesting oxygen saturation was noted to be 94% on 2 L/min. The patient was noted to be tachycardic prior to the test. With ambulation, the veronica oxygen saturation was 90%. However, it was noted that the patient sat down and rested from minute 2 until minute 4 of the test, decreasing the sensitivity for detecting exertional hypoxemia. This testing indicates significant exertional hypoxemia, significantly impaired walk distance and exertional tachycardia consistent with a pulmonary limitation to exercise tolerance. - Recommendations Recommendations: 2 L/min of supplemental oxygen should be utilized with exertion.
--- NOTE | 2017-12-29 12:58 | WT_ITS ---
PSN 6 Minute Walk Test - 6 Minute Walk Test 6 Minute Walk Test: 6 Minute Walk Test PSN:6-Minute Walk Test Start: 12/28/17 11: 13 Freq: Status: Active Protocol: [id number] Document 12/28/17 11:13 B (Rec: 12/28/17 11:25 SMB [id number]) 6 Minute Walk Test Date Performed 12/28/17 Time Performed 10:52 Height 5 ft 4 in Weight: 348 lb Weight in Pounds 348.[address]: Esther Arce Assistive device used: None Pre-test Oxygen Flow Rate (L/min) (L/min) 2 Oxygen Delivery Method Nasal Cannula Pulse Ox (%) 94 Pulse Rate (60-100 beats/min) 121 H Dyspnea Delfino Scale (0-10) 6 Exertion Delfino Scale (6-20) 11 1st minute Oxygen Flow Rate (L/min) (L/min) 2 Oxygen Delivery Method Nasal Cannula Pulse Ox (%) 93 Pulse Rate (60-100 beats/min) 67 2nd minute Oxygen Flow Rate (L/min) (L/min) 2 Oxygen Delivery Method Nasal Cannula Pulse Ox (%) 90 Pulse Rate (60-100 beats/min) 121 H 3rd minute Oxygen Flow Rate (L/min) (L/min) 2 Oxygen Delivery Method Nasal Cannula Pulse Ox (%) 93 Pulse Rate (60-100 beats/min) 119 H 4th minute Oxygen Flow Rate (L/min) (L/min) 2 Oxygen Delivery Method Nasal Cannula Pulse Ox (%) 93 Pulse Rate (60-100 beats/min) 121 H 5th minute Oxygen Flow Rate (L/min) (L/min) 2 Oxygen Delivery Method Nasal Cannula Pulse Ox (%) 94 Pulse Rate (60-100 beats/min) 103 H 6th minute Oxygen Flow Rate (L/min) (L/min) 2 Oxygen Delivery Method Nasal Cannula Pulse Ox (%) 91 Pulse Rate (60-100 beats/min) 121 H Post-test Oxygen Flow Rate (L/min) (L/min) 2 Oxygen Delivery Method Nasal Cannula Pulse Ox (%) 94 Pulse Rate (60-100 beats/min) 92 Dyspnea Delfino Scale (0-10) 7 Exertion Delfino Scale (6-20) 13 Full Laps Walked 4 Partial Lap, Number of Tiles Walked 33 Total Distance Walked (ft) 269 12/28/17 11:20 Cardiopulmonary Services by Shantelle Armstrong Patient arrived in wheelchair. Patient stated she has trouble walking due to back pain. Family member followed behind patient with wheelchair. At minute 2 patient had to sit and continued to sit until minute 4 of test. Initialized on 12/28/17 11:20 - END OF NOTE - Interpretation Interpretation: The patient ambulated 269 feet over the course of 6 minutes on supplemental oxygen, with a prolonged break. Pretesting oxygen saturation was noted to be 94 % on 2 L/min. The patient was noted to be tachycardic prior to the test. With ambulation, the veronica oxygen saturation was 90%. However, it was noted that the patient sat down and rested from minute 2 until minute 4 of the test, decreasing the sensitivity for detecting exertional hypoxemia. This testing indicates significant exertional hypoxemia, significantly impaired walk distance and exertional tachycardia consistent with a pulmonary limitation to exercise tolerance. - Recommendations Recommendations: 2 L/min of supplemental oxygen should be utilized with exertion.
== END ==
LOC: PSN 10:47
PROVIDERS: Family Provider Family Medicine; PCP Family Medicine; Visit Provider Nurse Practitioner Acute Care
DX: R06.02 Shortness of breath (principal)
CPT/HCPCS: 94618

== ENCOUNTER → 2018-01-24 20:06 | Outpatient (CLI) | payer MEDICARE, SELFPAY | PROVIDERS: Family Provider Family Medicine; PCP Family Medicine; Referring Provider Nurse Practitioner Acute Care; Visit Provider Nurse Practitioner Acute Care | DX: G47.33 Obstructive sleep apnea (adult) (pediatric) (principal) | CPT/HCPCS: 95811 ==

== ENCOUNTER 2018-02-04 18:17 | Inpatient (IN) | payer MEDICARE, SELFPAY ==
[2018-02-04] VITALS (14 sets, daily range): BP systolic 109–132; BP diastolic 67–89; PULSE 79–128; RESP 12–31; TEMP 36.6–36.9; O2SAT 92–94; BMI 67.7; BMI 64.3; BMI 67.8
--- NOTE | 2018-02-04 18:34 | EKG12_ITS ---
Test Reason : SOB Blood Pressure : / mmHG Vent. Rate : 125 BPM Atrial Rate : 250 BPM P-R Int : 000 ms QRS Dur : 144 ms QT Int : 472 ms P-R-T Axes : 257 270 -71 degrees QTc Int : 681 ms Atrial flutter with 2:1 A-V conduction Left axis deviation Right bundle branch block Anterolateral infarct , age undetermined , cannot be excluded Abnormal ECG Confirmed by CY WALKER, LEE ([id number]), communications editor REENA NIELSON ([id number]) on 02/06/2018 11:25:12 AM Referred By: CESILIA/DAMIÁN Confirmed By:LEE BENOIT MD
--- NOTE | 2018-02-04 18:36 | ED.VISSUMM ---
- ER Visit Summary Date of Service: 02/04/18 Chief Complaint: shortness of breath History of Present Illness: The patient is a 67 F history of COPD, atrial flutter and sleep apnea. She is chronically on 2 L of oxygen at home. She has had multiple episodes similar to this. She states she is become increasingly short of breath of the last 2 days. They increased her home oxygen from 2-3 L over the last several days. She denies any chest pain. She denies any fever. She is never had a DVT or PE. Due to her atrial flutter she is on chronic Xarelto. Physical Examination: Older female. Currently on BiPAP. Vital signs are stable. Her pulse ox is 93% on BiPAP. She is hypoxic without it. H EENT exam unremarkable. Neck nontender. Lungs diminished breath sounds throughout. Coarse. Few scattered wheezes. No rhonchi is appreciated. Heart tachycardic rate about 115. No murmur appreciated. Chest wall nontender. No crepitance. No subcu air. Abdomen soft. Nondistended. Normal bowel sounds. No peritoneal signs. She is moving all 4 extremities. They are neurovascularly intact. She does have trace pitting edema both lower extremities. Calves are nontender. Normal hot billet shear operator strength bilaterally. Neurologically she is awake and alert with no focal motor deficits. Test Results: EKG is 2-1 atrial flutter with a right bundle branch block. Chronic history of the same. Portable one view chest x-ray shows bilateral pleural effusions. Also interstitial edema consistent with congestive heart failure. CBC shows a white count 11.8. Hemoglobin of 14. Electrolytes unremarkable CO2 of 33. Creatinine 1.2. Gap of 4. Troponin is normal. BNP is elevated 628. Emergency Department Course and Treatment: Patient should not currently being treated with BiPAP. Both DuoNeb and albuterol aerosols. IV Solu-Medrol. History and exam are consistent with exacerbation of COPD and also congestive heart failure with the edema in the lower extremities, BNP and a chest x-ray. Treatment Plan: Hospitalist on page for admission Disposition: Admission Impression: Acute exacerbation of COPD Acute congestive heart failure and pleural effusions Acute respiratory failure with hypoxia Acute BiPAP Acute on chronic atrial flutter Anticoagulated on Xarelto This note was generated with [employer] software. It may contain incorrect words, spelling, and punctuation that were not noted in review of the chart prior to signing ED Disposition - Plan for ED Patient: Chief Complaint: Shortness of Breath Referrals: Alfonzo Cha MD [Primary Care Provider] -
[2018-02-04] MEDS: MethylPREDNISolone 125 MG/2 ML Vial IV (18:40)
--- NOTE | 2018-02-04 18:40 | RAD_ITS ---
STUDY: X-RAY CHEST REASON FOR EXAM: Female, 67 years old. COPD with worsening shortness of breath. TECHNIQUE: Single frontal view of the chest. COMPARISON: November 18, 2017 FINDINGS: The diffuse interstitial pattern has increased in prominence. There are large bilateral effusions, left greater than right which have increased. There is cardiomegaly. Normal mediastinum and angi. Normal visualized pulmonary arteries. Normal visualized aortic arch and descending thoracic aorta. Normal visualized thoracic spine. Normal visualized ribs, clavicles, and shoulders. There is no demonstrated abnormality of the visualized soft tissue structures of the upper abdomen. RAD/Chest 1 View (Portable) IMPRESSION: Findings compatible with worsening interstitial edema/congestive failure with effusions. Electronically Signed: Edwin Duarte MD at 19:11 EDT , Service support ,
[2018-02-04 18:41] LABS: Absolute Lymphocyte Count 3.77 X10^3/ul (0.83-4.51); Absolute Neutrophil Count 6.6 X10^3/uL (2.0-7.7); Basophil# 0.02 X10^3/uL; Basophil% 0.2 % (0-1); Eosinophil# 0.15 X10^3/uL; Eosinophils% 1.3 % (0-5); Hematocrit 48.5 % (37-47); Hemoglobin 14.4 g/dl (12.0-15.0); Lymphocyte # 3.77 X10^3/ul (4.0); Lymphocyte % 31.8 % (19-41); Mean Corp Hgb Conc 29.7 g/gl (32-36); Mean Corpuscular Hgb 28.6 pg (27.0-32.0); Mean Corpuscular Volume 96.2 fL (81-99); Mean Platelet Vol. 9.7 fl (6.2-12.0); Monocyte# 1.29 X10^3/uL; Monocyte% 10.9 % (0-10); Neutrophil # 6.58 X10^3/uL (2.7-7.7); Neutrophil % 55.5 % (47-70); Platelet Count 217 K/mm3 (150-450); RBC Distribution Width CV 14.1 % (11.6-14.6); RBC Distribution Width SD 49.5 fl (35.1-43.9); Red Blood Count 5.04 M/mm3 (4.2-5.4); White Blood Count 11.8 K/mm3 (4.4-11.0)
[2018-02-04 18:42] LABS: POSITIVE COUNT NO; POSITIVE DIFFERENTIAL NO; POSITIVE MORPHOLOGY NO
[2018-02-04] MEDS: Albuterol 2.5 MG/3 ML VIAL.NEB. INHALATION ×2 (18:47→19:01)
[2018-02-04] MEDS: Ipratropium/Albuterol Sulfate 3 ML AMPUL.NEB INHALATION ×2 (18:47→22:55)
[2018-02-04 18:55] LABS: Anion Gap 4 (5-15); BUN 19 mg/dL (7-18); BUN/Creat Ratio 15.2 RATIO (10-20); Calcium,Total 8.5 mg/dL (8.5-10.1); Chloride 107 mmol/L (98-107); Creatinine, Serum 1.25 mg/dL (0.55-1.02); EST Glomerular Filtration Rate 45 mL/min (>60); Est Glom Filt Rate - Afr Amer 55 mL/min (>60); Estimated Creatinine Clearance 35.14 ml/min; Glucose 134 mg/dL (74-106); Potassium 3.9 mmol/L (3.5-5.1); Sodium Level 144 mmol/L (136-145)
[2018-02-04 19:06] LABS: BNP,B-Type NATRIURETIC PEPTIDE 628.5 pg/mL (0-100)
[2018-02-04] MEDS: Furosemide 40 MG/4 ML Vial IV (19:27)
[2018-02-04 20:07] LABS: Mucous, Urine 0 SEEN /hpf (<or=2+); Squamous Epithelial Cells - UA 0 SEEN /hpf (5-10)
[2018-02-04 20:13] LABS: Color, Urine Amber (Yellow); Glucose, Dipstick Normal (Normal); Ketone-Dipstick Negative (Negative); Leukocyte Esterase-Dipstick 100 /ul (Negative); Nitrite-Dipstick Positive (Negative); Occult Blood-Urine 250 /ul (Negative); Protein-Dipstick 100 mg/dl (Negative); Urine Clarity Cloudy (Clear); Urine Urobilinogen 4 mg/dl (Normal)
--- NOTE | 2018-02-04 20:13 | PCM.HP.STD ---
Problem List (1) Heart failure Status: Acute (2) Atrial flutter with rapid ventricular response Status: Acute (3) Chronic obstructive pulmonary disease Status: Chronic Qualifiers: (4) HTN (hypertension) Status: Chronic Qualifiers: History of Present Illness Date of Admission: 02/04/18 Chief Complaint: Dyspnea The patient is a 67 year old F with a significant history of heart failure, COPD, and hypertension who presents with worsening shortness of breath for the last 3 days. Has shortness of breath occurs at rest and it is exacerbated with mild exertion. She reports a productive cough with green sputum and with some blood tinge. Associated with her symptoms is orthopnea requiring her to sleep in a recliner; and paroxysmal nocturnal dyspnea. Patient is on home oxygen 1 L but recently has increased her home oxygen to 3 L. Patient was scheduled to begin BiPAP at a day before her admission. Recently patient has been using the CPAP of her family. While at the emergency department nurse reported gross hematuria. Past Medical History Past Medical History (Chronic Problems): Chronic Problems (Last Reviewed 02/04/18 @ 20:20 by Wyatt Lora MD) Chronic obstructive pulmonary disease (Chronic) Morbid obesity (Chronic) HTN (hypertension) (Chronic) GERD (gastroesophageal reflux disease) (Chronic) Medical History: Medical History (Last Reviewed 02/04/18 @ 20:20 by Wyatt Lora MD) Shortness of breath (Acute) R06.02 Atrial flutter with rapid ventricular response (Acute) I48.92 Healthcare associated bacterial pneumonia (Acute) J15.9 Acute kidney injury (Acute) N17.9 Chest pain (Acute) R07.9 Chronic obstructive pulmonary disease (Chronic) J44.9 Acute respiratory failure (Acute) J96.00 Healthcare-associated pneumonia (Acute) J18.9 Atrial flutter (Acute) I48.92 Morbid obesity (Chronic) E66.01 HTN (hypertension) (Chronic) I10 GERD (gastroesophageal reflux disease) (Chronic) K21.9 CECILIA (obstructive sleep apnea) G47.33 Allergies aspirin [ASA] Adverse Reaction (Verified 02/04/18 18:19) stomach burning and sick to stomach propoxyphene HCl [From Darvon] Adverse Reaction (Verified 02/04/18 18:19) i get dizzy and pass out Home Medications: Ambulatory Orders Medication Instructions Recorded Calcium Carbonate/Vitamin D3 1 ea PO DAILY 11/14/17 [Calcium 500+D Tablet Chew] acetaminophen 500 mg tablet 1,000 mg PO Q6H PRN tab 12/01/17 Lorazepam [Ativan] 0.5 mg PO Q6H PRN PRN #14 tab 12/05/17 Metoprolol Tartrate [Lopressor 50 mg PO BID #60 tab 12/05/17 (beta maeve)] Pantoprazole Sodium [Protonix] 20 mg PO DAILY #30 tab 12/05/17 Rivaroxaban [Xarelto] 20 mg PO DAILY@1800 #30 tab 12/05/17 albuterol sulfate 2.5 mg/3 mL 2.5 mg INHALATION Q4H PRN #180 vial 01/04/18 (0.083 %) solution for nebulization albuterol sulfate HFA 90 2 puff INHALATION Q4H PRN #18 g 01/04/18 mcg/actuation aerosol inhaler Diltiazem [Cardizem] 60 mg PO TID 02/04/18 Omeprazole [Prilosec] 20 mg PO DAILY 02/04/18 Surgical History: Surgical History (Last Reviewed 02/04/18 @ 20:20 by Wyatt Lora MD) History of total hysterectomy Z90.710 Surgical History: hysterectomy - total Psychiatric History: No pertinent psych hx [employer] History: No pertinent [employer] history Lives: Spouse/ Significant Other Smoking Status: Former smoker Alcohol: None - *Family History Maternal Family History: Family History (Last Reviewed 02/04/18 @ 20:20 by yWatt Lora MD) Mother Heart disease Father Heart disease History Items: Heart Disease Paternal Family History: Family History (Last Reviewed 02/04/18 @ 20:20 by Wyatt Lora MD) Mother Heart disease Father Heart disease History Items: Heart Disease Review of Systems Constitutional: Denies: Chills, Fever, Weight Change HEENT: Denies: Head Aches, Sinus Congestion, Sinus Drainage Cardiovascular: Reports: Edema, Orthopnea. Denies: Chest Pain, Palpitations Respiratory: Reports: Cough, Shortness of Breath, Shortness of breath at rest, Shortness of breath upon exertion, Sputum production, Wheezing Gastrointestinal: Denies: Abdominal Pain, Nausea, Vomiting Genitourinary: Denies: Dysuria Musculoskeletal: Denies: Joint Pain, Joint Tenderness Skin: Denies: Rash, Wounds Neurological: Denies: Numbness, Tingling, Focal weakness Psychiatric: Denies: Anxiety, Depression, Homicidal Ideations, Suicidal Ideations Hematologic/ Lymphatic: Denies: Easy Bruising, Easy Bleeding VTE Information - Inpt Only VTE Present on Admission: No VTE Mechan Device Prophylaxis: SCD's VTE Pharm Prophylaxis ordered?: No Reason prophylaxis not ordered:: Treatment Not Indicated - Patient with hematuria. Patient Problems: Active and Suspected Problems (Last Reviewed 02/04/18 @ 20:20 by Wyatt Lora MD) Heart failure (Acute) - Physical Exam General: Alert, Oriented x3, Cooperative HEENT: Atraumatic, PERRLA, EOMI, Normocephalic Neck: Supple, No JVD, Negative Carotid Bruits Lungs: Diminished, Tachypneic, Using Accessory Muscles Cardiovascular: Regular rate, No murmurs, Tachycardic Abdomen: Bowel Sounds Present, Soft, Non Tender Extremities: Capillary Refill Less than 3 Seconds, Edema - Bilateral legs 3+ Skin: No rashes, No breakdown Musculoskeletal: No Tenderness to Palpation of Joints or Extremities Neurological: Cranial nerves II-XII grossly intact Psych/Mental Status: Normal Affect, Appropriate Vital Signs Temp Pulse Resp BP Pulse Ox 98.4 F 125 H 31 H 109/78 94 02/04/18 19:19 02/04/18 19:19 02/04/18 19:19 02/04/18 19:19 02/04/18 19:19 Oxygen Delivery Method Bi-pap Weight: 173.5 kg Body Mass Index (BMI) 67.7 Laboratory Tests Past 24 Hrs 02/04/18 02/04/18 02/04/18 18:24 18:24 18:24 WBC 11.8 H RBC 5.04 Hgb 14.4 Hct 48.5 H MCV 96.2 MCH 28.6 MCHC 29.7 L RDW 14.1 RDW Differential 49.5 H Plt Count 217 MPV 9.7 Immature Gran % (Auto) 0.300 Neut % (Auto) 55.5 Lymph % (Auto) 31.8 [place] % (Auto) 10.9 H Eos % (Auto) 1.3 Baso % (Auto) 0.2 Absolute Neuts (auto) 6.6 Absolute Lymphs (auto) 3.77 Total Counted Not Reportable Sodium 144 Potassium 3.9 Chloride 107 Carbon Dioxide 33.0 H Anion Gap 4 L BUN 19 H Creatinine 1.25 H Estim Creat Clear Calc 35.14 Est GFR (MDRD) Af Amer 55 L Est GFR (MDRD) Non-Af 45 L BUN/Creatinine Ratio 15.2 Glucose 134 H Calcium 8.5 Troponin I < 0.015 B-Natriuretic Peptide 628.5 H Urine Color Urine Clarity Urine pH Ur Specific Britton Urine Protein Urine Glucose (UA) Urine Ketones Urine Occult Blood Urine Nitrite Urine Bilirubin Urine Urobilinogen Ur Leukocyte Esterase Urine RBC Urine WBC Ur Squamous Epith Cells Urine Bacteria Urine Mucus 02/04/18 20:02 WBC RBC Hgb Hct MCV MCH MCHC RDW RDW Differential Plt Count MPV Immature Gran % (Auto) Neut % (Auto) Lymph % (Auto) [place] % (Auto) Eos % (Auto) Baso % (Auto) Absolute Neuts (auto) Absolute Lymphs (auto) Total Counted Sodium Potassium Chloride Carbon Dioxide Anion Gap BUN Creatinine Estim Creat Clear Calc Est GFR (MDRD) Af Amer Est GFR (MDRD) Non-Af BUN/Creatinine Ratio Glucose Calcium Troponin I B-Natriuretic Peptide Urine Color Pending Urine Clarity Pending Urine pH Pending Ur Specific Britton Pending Urine Protein Pending Urine Glucose (UA) Pending Urine Ketones Pending Urine Occult Blood Pending Urine Nitrite Pending Urine Bilirubin Pending Urine Urobilinogen Pending Ur Leukocyte Esterase Pending Urine RBC Pending Urine WBC Pending Ur Squamous Epith Cells Pending Urine Bacteria Pending Urine Mucus Pending Assessment/Plan All Active Problems (Last Reviewed 02/04/18 @ 20:20 by Wyatt Lora MD) Heart failure (Acute) CECILIA (obstructive sleep apnea) (Acute) Shortness of breath (Acute) Atrial flutter with rapid ventricular response (Acute) Healthcare associated bacterial pneumonia (Acute) Acute kidney injury (Acute) Chest pain (Acute) Acute respiratory failure (Acute) Healthcare-associated pneumonia (Acute) Atrial flutter (Acute) The patient is a 67 year old F with a significant history of heart failure, COPD, and hypertension who presents with worsening shortness of breath elevated BNP and radiographic finding of pulmonary infiltrate; and patient requiring BiPAP to maintain oxygenation. Acute hypoxemic respiratory failure Chest x-ray showed increased cardiac silhouette with bilateral pulmonary infiltrates suggestive of likely heart failure BNP is consistent with heart failure See list at emergency department. Lasix 40 mg IV twice daily. Was given Solu-Medrol at emergency department likely for COPD exacerbation. Solu-Medrol 40 mg x1 in a.m. Please assess for further need of steroids. DuoNeb scheduled Albuterol as needed Scheduled guaifenesin. BiPAP was started at emergency department; continue BiPAP. Daily weights Elevate bilateral lower ext. Fluid restriction Arthur wrap to bilateral lower extremity with elevation. Trend CBC and BMP. A flutter Noted to have a flutter with rapid ventricular response with a rate of about 126. Cardizem 5 mg IV bolus x1. Continue home Cardizem p.o. Because of hematuria Xarelto is on hold. Please consider allergy consult to optimize management. Hypertension Blood pressure within goal on admission Cardizem continued. Hematuria Urinalysis ordered. Xarelto on hold. DVT Prophylaxis Xarelto for A. fib with a Holter this time. SCD ordered. Code Visit Inpatient E&M: 69726 Init Hosp L3
[2018-02-04 20:14] LABS: Urine Bilirubin Dipstick 1 mg/dL (Negative)
[2018-02-04 20:19] LABS: Bacteria 2+ /hpf (None Seen); Red Blood Cells-Urine > 100 SEEN /hpf (0-5)
[2018-02-04 20:25] LABS: White Blood Cells 0-5 SEEN /hpf (0-5)
[2018-02-04] MEDS: 0.9% NaCl Peripheral Flush Adult/Peds IV (21:53)
[2018-02-04] MEDS: Metoprolol Tartrate 50 MG Tablet PO (21:53)
[2018-02-04] MEDS: dilTIAZem 60 MG Tablet PO (21:53)
[2018-02-04] MEDS: dilTIAZem 25 MG/5 ML Vial 5 MG IV BOLUS (21:53)
[2018-02-04] MEDS: guaiFENesin 600 MG Tablet PO (21:53)
[2018-02-04 21:55] LABS: Base Excess 6 mmol/L (-2 to +2); Bicarbonate 31.1 mmol/L (22-26); Blood Gas Specimen Type ART; EPAP 10; FI02 40; IPAP 16; PO2 72 mmHG (75-100); SITE R Brachial; SO2 94 % (95-99); Time Given 2145; Total Carbon Dioxide 33 mmol/L; pCO2 50.2 mmHg (35-45)
--- NOTE | 2018-02-04 21:56 | CPS ---
I.S. on hold until patient comes off the BiPAP. Valarie COOMBS
[2018-02-05] VITALS (24 sets, daily range): BP systolic 117–142; BP diastolic 67–102; PULSE 65–114; RESP 12–22; TEMP 36.1–36.7; O2SAT 3–96
[2018-02-05] MEDS: Ipratropium/Albuterol Sulfate 3 ML AMPUL.NEB INHALATION ×6 (03:28→22:50)
[2018-02-05] MEDS: dilTIAZem 60 MG Tablet PO ×3 (05:25→21:37)
[2018-02-05 06:13] LABS: Hematocrit 45.1 % (37-47); Hemoglobin 13.7 g/dl (12.0-15.0); Mean Corp Hgb Conc 30.4 g/gl (32-36); Mean Corpuscular Hgb 28.9 pg (27.0-32.0); Mean Corpuscular Volume 95.1 fL (81-99); Mean Platelet Vol. 10.1 fl (6.2-12.0); Platelet Count 174 K/mm3 (150-450); RBC Distribution Width SD 47.2 fl (35.1-43.9); Red Blood Count 4.74 M/mm3 (4.2-5.4); White Blood Count 6.9 K/mm3 (4.4-11.0)
[2018-02-05 06:15] LABS: Anion Gap 10 (5-15); BUN 19 mg/dL (7-18); BUN/Creat Ratio 18.1 RATIO (10-20); Calcium,Total 8.6 mg/dL (8.5-10.1); Chloride 109 mmol/L (98-107); Creatinine, Serum 1.05 mg/dL (0.55-1.02); EST Glomerular Filtration Rate 55 mL/min (>60); Est Glom Filt Rate - Afr Amer 67 mL/min (>60); Estimated Creatinine Clearance 41.83 ml/min; Glucose 139 mg/dL (74-106); Potassium 4.2 mmol/L (3.5-5.1); Sodium Level 146 mmol/L (136-145)
[2018-02-05 06:20] LABS: Scan Indicated on CBC? Y/N NO
[2018-02-05] MEDS: guaiFENesin 600 MG Tablet PO ×2 (08:29→21:36)
[2018-02-05] MEDS: Calcium Carb/Vitamin D 1 TABLET Tablet PO (08:29)
[2018-02-05] MEDS: Metoprolol Tartrate 50 MG Tablet PO ×2 (08:29→21:36)
[2018-02-05] MEDS: Nystatin Powder 15gm Bottle 1 APPLIC TOPICAL ×2 (08:29→21:36)
[2018-02-05] MEDS: Pantoprazole Sodium 20 MG Tablet PO (08:29)
[2018-02-05] MEDS: Furosemide 40 MG/4 ML Vial IV ×2 (08:35→21:37)
[2018-02-05] MEDS: Cephalexin 500 MG Capsule PO ×3 (11:33→23:09)
--- NOTE | 2018-02-05 12:07 | CASEMGMT ---
ANGEL NOVAK assessment: Face to Face with patient for initial transition planning/care coordination assessment. ANGEL NOVAK introduced self and role at [facility], pt voices understanding and consents to assessment at this time. Pt is sitting up in bed with oxygen in place in no distress at this time. Pt is A/Ox4 at this time and answers all questions appropriately at this time. Pt's daughter and other family members at bedside during assessment. Care providers, pharmacy, and demographics verified/updated at this time. PCP: [facility] Specialists: Pt states no current specialists at this time. [facility] Insurance: [facility] A/B Prescription Benefit: [employer]-will take effect 03/17/18 Living Will/HPOA: Pt has LW/HPOA and all three children are HPOA and they are on file with [facility] at this time. LNOK: Gray Ibarra, ; Jessica Ibarra, daughter Living Arrangements: Pt lives with family on main level of home with 3 steps in and states no concerns at home at this time. Transportation: Pt states family drives her and states no transportation concerns at this time. DME/HHC: Pt has the following DME: shower chair, grab bars, raised toilet seat, walker, and home oxygen 2 liters [place] [facility]. [place] a bipap and hospital [place] [facility] also and [facility] requests to be informed when pt to be discharged so that they can deliver to home for pt arrival. Pt states no hx of HHC or SNF in the past but pt does inquire about getting someone to be there at home with her when no one else from family can be. Pt also states concern about /son smoking in home and how that affects her health. Referral sent for CCN at this time after pt ok and call to Eric to notify of pt and of opportunity for teaching, voices understanding. Referral to [facility] for info for [facility] and medical alert, voices understanding. Pt voices no concerns about going home at time of discharge. Pt states does not smoke or drink ETOH. Pt voices no further concerns/needs a this time. CM to follow for any further discharge planning/needs. Advised pt/family to ask for CM if any further questions/concerns/needs arise, voices understanding. Plan[place]GEL [place]OVAK
--- NOTE | 2018-02-05 14:48 | CASEMGMT ---
Social Work Received referral from RN SCARLET. Provided information to pt about medical alert systems available. Pt is agreeable to [facility]. Pt states she has applied for Medicaid and she is waiting on a response from [facility]. Pt plans to return home at time of d/c. SW will remain available should further needs arise. JASEN Maldonado
--- NOTE | 2018-02-05 18:33 | PCM.PROGNOTE ---
Patient Problems: Active and Suspected Problems (Last Reviewed 02/04/18 @ 20:20 by Wyatt Lora MD) Heart failure (Acute) Subjective: Patient was seen and examined today, she was in the hospital recently for cardioversion of atrial flutter which did not last, I looked at her acls specialist office visit recently and she was back into flutter. Patient was admitted last night for shortness of breath-it appears that she has congestive heart failure, I will increase her IV Lasix. Patient does not know the names of her skin grader or acls specialist. Her acls specialist-Dr. Hernandez-had recommended that she see an EP physician in [place], I do not know if she even follow through with the appointment. - Physical Exam General: Alert, Oriented x3, Cooperative, No apparent distress, Well developed HEENT: Atraumatic, PERRLA, EOMI, Normocephalic Oral: Moist Mucosa Neck: Supple, No JVD, Negative Carotid Bruits Lungs: Clear to auscultation, Normal air movement, No rhonchi, No wheeze, No rales Cardiovascular: PMI Normal, Irregular Rate, No rub noted Abdomen: Bowel Sounds Present, Soft, Non Tender, Non-Distended, Obese Extremities: Capillary Refill Less than 3 Seconds, Edema - Severe edema over both lower extremities Skin: No rashes, No breakdown Musculoskeletal: No Tenderness to Palpation of Joints or Extremities Neurological: Cranial nerves II-XII grossly intact, Neuro grossly intact, Sensory exam intact to light touch and pain Psych/Mental Status: Normal Affect, Appropriate, Alert and oriented to time, place, person, mood and affect Vital Signs Temp Pulse Resp BP Pulse Ox 98.0 F 98 16 131/87 H 94 02/05/18 14:28 02/05/18 15:15 02/05/18 15:15 02/05/18 14:28 02/05/18 14:28 Oxygen Flow Rate (L/min) 3 Oxygen Delivery Method Nasal Cannula Weight: 163.1 kg Body Mass Index (BMI) 64.3 Intake and Output for Last 24 Hours 02/03/18 02/04/18 02/05/18 23:59 23:59 23:59 Intake Total 240 / 240 420 / 420 Output Total 1025 / 1025 1800 / 1800 Balance -785 / -785 -1380 / -1380 Laboratory Tests Past 24 Hrs 10/21/18 10/21/18 10/21/18 18:24 18:24 18:24 WBC 11.8 H RBC 5.04 Hgb 14.4 Hct 48.5 H MCV 96.2 MCH 28.6 MCHC 29.7 L RDW 14.1 RDW Differential 49.5 H Plt Count 217 MPV 9.7 Immature Gran % (Auto) 0.300 Neut % (Auto) 55.5 Lymph % (Auto) 31.8 Forest % (Auto) 10.9 H Eos % (Auto) 1.3 Baso % (Auto) 0.2 Absolute Neuts (auto) 6.6 Absolute Lymphs (auto) 3.77 Total Counted Not Reportable Specimen Type Sample Site pH Bicarbonate Actual POC Total CO2 Base Excess O2 Saturation O2 % ABG pCO2 ABG pO2 Andrew Test O2 Delivery Device EPAP IPAP Blood Gas Notified Whom Blood Gas Notified Time Sodium 144 Potassium 3.9 Chloride 107 Carbon Dioxide 33.0 H Anion Gap 4 L BUN 19 H Creatinine 1.25 H Estim Creat Clear Calc 35.14 Est GFR (MDRD) Af Amer 55 L Est GFR (MDRD) Non-Af 45 L BUN/Creatinine Ratio 15.2 Glucose 134 H Calcium 8.5 Troponin I < 0.015 B-Natriuretic Peptide 628.5 H Urine Color Urine Clarity Urine pH Ur Specific [place] Urine Protein Urine Glucose (UA) Urine Ketones Urine Occult Blood Urine Nitrite Urine Bilirubin Urine Urobilinogen Ur Leukocyte Esterase Urine RBC Urine WBC Ur Squamous Epith Cells Urine Bacteria Urine Mucus 02/04/18 02/04/18 02/05/18 20:02 21:50 05:22 WBC 6.9 RBC 4.74 Hgb 13.7 Hct 45.1 MCV 95.1 MCH 28.9 MCHC 30.4 L RDW 14.0 RDW Differential 47.2 H Plt Count 174 MPV 10.1 Immature Gran % (Auto) Neut % (Auto) Lymph % (Auto) [place] % (Auto) Eos % (Auto) Baso % (Auto) Absolute Neuts (auto) Absolute Lymphs (auto) Total Counted Specimen Type ART Sample Site R Brachial pH 7.40 Bicarbonate Actual 31.1 H POC Total CO2 33 Base Excess 6 H O2 Saturation 94 L O2 % 40 ABG pCO2 50.2 H ABG pO2 72 L Andrew Test NA O2 Delivery Device Bi / C PAP EPAP 10 IPAP 16 Blood Gas Notified Whom [facility] Blood Gas Notified Time 214 Sodium Potassium Chloride Carbon Dioxide Anion Gap BUN Creatinine Estim Creat Clear Calc Est GFR (MDRD) Af Amer Est GFR (MDRD) Non-Af BUN/Creatinine Ratio Glucose Calcium Troponin I B-Natriuretic Peptide Urine Color Arin Urine Clarity Cloudy Urine pH 5.0 Ur Specific [place] 1.020 Urine Protein 100 H Urine Glucose (UA) Normal Urine Ketones Negative Urine Occult Blood 250 H Urine Nitrite Positive H Urine Bilirubin 1 H Urine Urobilinogen 4 H Ur Leukocyte Esterase 100 H Urine RBC > 100 SEEN Urine WBC 0-5 SEEN Ur Squamous Epith Cells 0 SEEN Urine Bacteria 2+ Urine Mucus 0 SEEN 02/05/18 05:22 WBC RBC Hgb Hct MCV MCH MCHC RDW RDW Differential Plt Count MPV Immature Gran % (Auto) Neut % (Auto) Lymph % (Auto) [place] % (Auto) Eos % (Auto) Baso % (Auto) Absolute Neuts (auto) Absolute Lymphs (auto) Total Counted Specimen Type Sample Site pH Bicarbonate Actual POC Total CO2 Base Excess O2 Saturation O2 % ABG pCO2 ABG pO2 Andrew Test O2 Delivery Device EPAP IPAP Blood Gas Notified Whom Blood Gas Notified Time Sodium 146 H Potassium 4.2 Chloride 109 H Carbon Dioxide 27.0 Anion Gap 10 BUN 19 H Creatinine 1.05 H Estim Creat Clear Calc 41.83 Est GFR (MDRD) Af Amer 67 Est GFR (MDRD) Non-Af 55 L BUN/Creatinine Ratio 18.1 Glucose 139 H Calcium 8.6 Troponin I B-Natriuretic Peptide Urine Color Urine Clarity Urine pH Ur Specific [place] Urine Protein Urine Glucose (UA) Urine Ketones Urine Occult Blood Urine Nitrite Urine Bilirubin Urine Urobilinogen Ur Leukocyte Esterase Urine RBC Urine WBC Ur Squamous Epith Cells Urine Bacteria Urine Mucus Medical Necessity - Tobacco Use Smoking Status: Former smoker Assessment/Plan All Active Problems (Last Reviewed 02/04/18 @ 20:20 by Wyatt Lora MD) Heart failure (Acute) CECILIA (obstructive sleep apnea) (Acute) Shortness of breath (Acute) Atrial flutter with rapid ventricular response (Acute) Healthcare associated bacterial pneumonia (Acute) Acute kidney injury (Acute) Chest pain (Acute) Acute respiratory failure (Acute) Healthcare-associated pneumonia (Acute) Atrial flutter (Acute) #1 acute on chronic hypoxemic respiratory failure due to diastolic congestive heart failure-patient's IV Lasix will be increased, oxygen will be monitored. Patient's last echocardiogram in November 2017 showed her EF to be 55% #2 chronic atrial fib/flutter-patient will continue on rate control medications #3 obstructive sleep apnea-pulmonary medicine will be consulted, she follows up with pulmonary medicine as an outpatient #4 hypertension #5 morbid obesity #6 mild pulmonary hypertension #7 acute cystitis-I placed the patient on oral Keflex #8 stage III chronic kidney disease secondary to hypertension Code Visit Inpatient E&M: 74391 Subs Hosp L2
--- NOTE | 2018-02-05 18:38 | PN_ITS ---
Patient Problems: Active and Suspected Problems (Last Reviewed 02/04/18 @ 20:20 by Wyatt Lora MD) Heart failure (Acute) Subjective: Patient was seen and examined today, she was in the hospital recently for cardioversion of atrial flutter which did not last, I looked at her rug clipper office visit recently and she was back into flutter. Patient was admitted last night for shortness of breath-it appears that she has congestive heart failure, I will increase her IV Lasix. Patient does not know the names of her pulmonolo gist or rug clipper. Her rug clipper-Dr. Hernandez-had recommended that she see an EP physician in [place], I do not know if she even follow through with the appointment. - Physical Exam General: Alert, Oriented x3, Cooperative, No apparent distress, Well developed HEENT: Atraumatic, PERRLA, EOMI, Normocephalic Oral: Moist Mucosa Neck: Supple, No JVD, Negative Carotid Bruits Lungs: Clear to auscultation, Normal air movement, No rhonchi, No wheeze, No rales Cardiovascular: PMI Normal, Irregular Rate, No rub noted Abdomen: Bowel Sounds Present, Soft, Non Tender, Non-Distended, Obese Extremities: Capillary Refill Less than 3 Seconds, Edema - Severe edema over both lower extremities Skin: No rashes, No breakdown Musculoskeletal: No Tenderness to Palpation of Joints or Extremities Neurological: Cranial nerves II-XII grossly intact, Neuro grossly intact, Sensory exam intact to light touch and pain Psych/Mental Status: Normal Affect, Appropriate, Alert and oriented to time, place, person, mood and affect Vital Signs Temp Pulse Resp BP Pulse Ox 98.0 F 98 16 131/87 H 94 02/05/18 14:28 02/05/18 15:15 02/05/18 15:15 02/05/18 14:28 02/05/18 14:28 Oxygen Flow Rate (L/min) 3 Oxygen Delivery Method Nasal Cannula Weight: 163.1 kg Body Mass Index (BMI) 64.3 Intake and Output for Last 24 Hours 02/03/18 02/04/18 02/05/18 23:59 23:59 23:59 Intake Total 240 / 240 420 / 420 Output Total 1025 / 1025 1800 / 1800 Balance -785 / -785 -1380 / -1380 Laboratory Tests Past 24 Hrs 02/04/18 02/04/18 02/04/18 18:24 18:24 18:24 WBC 11.8 H RBC 5.04 Hgb 14.4 Hct 48.5 H MCV 96.2 MCH 28.6 MCHC 29.7 L RDW 14.1 RDW Differential 49.5 H Plt Count 217 MPV 9.7 Immature Gran % (Auto) 0.300 Neut % (Auto) 55.5 Lymph % (Auto) 31.8 Josephine % (Auto) 10.9 H Eos % (Auto) 1.3 Baso % (Auto) 0.2 Absolute Neuts (auto) 6.6 Absolute Lymphs (auto) 3.77 Total Counted Not Reportable Specimen Type Sample Site pH Bicarbonate Actual POC Total CO2 Base Excess O2 Saturation O2 % ABG pCO2 ABG pO2 Andrew Test O2 Delivery Device EPAP IPAP Blood Gas Notified Whom Blood Gas Notified Time Sodium 144 Potassium 3.9 Chloride 107 Carbon Dioxide 33.0 H Anion Gap 4 L BUN 19 H Creatinine 1.25 H Estim Creat Clear Calc 35.14 Est GFR (MDRD) Af Amer 55 L Est GFR (MDRD) Non-Af 45 L BUN/Creatinine Ratio 15.2 Glucose 134 H Calcium 8.5 Troponin I < 0.015 B-Natriuretic Peptide 628.5 H Urine Color Urine Clarity Urine pH Ur Specific [place] Urine Protein Urine Glucose (UA) Urine Ketones Urine Occult Blood Urine Nitrite Urine Bilirubin Urine Urobilinogen Ur Leukocyte Esterase Urine RBC Urine WBC Ur Squamous Epith Cells Urine Bacteria Urine Mucus 02/04/18 02/04/18 02/05/18 20:02 21:50 05:22 WBC 6.9 RBC 4.74 Hgb 13.7 Hct 45.1 MCV 95.1 MCH 28.9 MCHC 30.4 L RDW 14.0 RDW Differential 47.2 H Plt Count 174 MPV 10.1 Immature Gran % (Auto) Neut % (Auto) Lymph % (Auto) Josephine % (Auto) Eos % (Auto) Baso % (Auto) Absolute Neuts (auto) Absolute Lymphs (auto) Total Counted Specimen Type ART Sample Site R Brachial pH 7.40 Bicarbonate Actual 31.1 H POC Total CO2 33 Base Excess 6 H O2 Saturation 94 L O2 % 40 ABG pCO2 50.2 H ABG pO2 72 L Andrew Test NA O2 Delivery Device Bi / C PAP EPAP 10 IPAP 16 Blood Gas Notified Whom [facility] Blood Gas Notified Time 2144 Sodium Potassium Chloride Carbon Dioxide Anion Gap BUN Creatinine Estim Creat Clear Calc Est GFR (MDRD) Af Amer Est GFR (MDRD) Non-Af BUN/Creatinine Ratio Glucose Calcium Troponin I B-Natriuretic Peptide Urine Color Arin Urine Clarity Cloudy Urine pH 5.0 Ur Specific [place] 1.020 Urine Protein 100 H Urine Glucose (UA) Normal Urine Ketones Negative Urine Occult Blood 250 H Urine Nitrite Positive H Urine Bilirubin 1 H Urine Urobilinogen 4 H Ur Leukocyte Esterase 100 H Urine RBC > 100 SEEN Urine WBC 0-5 SEEN Ur Squamous Epith Cells 0 SEEN Urine Bacteria 2+ Urine Mucus 0 SEEN 02/05/18 05:22 WBC RBC Hgb Hct MCV MCH MCHC RDW RDW Differential Plt Count MPV Immature Gran % (Auto) Neut % (Auto) Lymph % (Auto) [place] % (Auto) Eos % (Auto) Baso % (Auto) Absolute Neuts (auto) Absolute Lymphs (auto) Total Counted Specimen Type Sample Site pH Bicarbonate Actual POC Total CO2 Base Excess O2 Saturation O2 % ABG pCO2 ABG pO2 Andrew Test O2 Delivery Device EPAP IPAP Blood Gas Notified Whom Blood Gas Notified Time Sodium 146 H Potassium 4.2 Chloride 109 H Carbon Dioxide 27.0 Anion Gap 10 BUN 19 H Creatinine 1.05 H Estim Creat Clear Calc 41.83 Est GFR (MDRD) Af Amer 67 Est GFR (MDRD) Non-Af 55 L BUN/Creatinine Ratio 18.1 Glucose 139 H Calcium 8.6 Troponin I B-Natriuretic Peptide Urine Color Urine Clarity Urine pH Ur Specific [place] Urine Protein Urine Glucose (UA) Urine Ketones Urine Occult Blood Urine Nitrite Urine Bilirubin Urine Urobilinogen Ur Leukocyte Esterase Urine RBC Urine WBC Ur Squamous Epith Cells Urine Bacteria Urine Mucus Medical Necessity - Tobacco Use Smoking Status: Former smoker Assessment/Plan All Active Problems (Last Reviewed 02/04/18 @ 20:20 by Wyatt Lora MD) Heart failure (Acute) CECILIA (obstructive sleep apnea) (Acute) Shortness of breath (Acute) Atrial flutter with rapid ventricular response (Acute) Healthcare associated bacterial pneumonia (Acute) Acute kidney injury (Acute) Chest pain (Acute) Acute respiratory failure (Acute) Healthcare-associated pneumonia (Acute) Atrial flutter (Acute) #1 acute on chronic hypoxemic respiratory failure due to diastolic congestive heart failure-patient's IV Lasix will be increased, oxygen will be monitored. Patient's last echocardiogram in November 2017 showed her EF to be 55% #2 chronic atrial fib/flutter-patient will continue on rate control medications #3 obstructive sleep apnea-pulmonary medicine will be consulted, she follows up with pulmonary medicine as an outpatient #4 hypertension #5 morbid obesity #6 mild pulmonary hypertension #7 acute cystitis-I placed the patient on oral Keflex #8 stage III chronic kidney disease secondary to hypertension Code Visit Inpatient E&M: 17067 Subs Hosp L2
[2018-02-05] MEDS: 0.9% NaCl Peripheral Flush Adult/Peds IV (21:37)
[2018-02-06] VITALS (21 sets, daily range): BP systolic 109–128; BP diastolic 57–71; PULSE 72–96; RESP 12–20; TEMP 36.3–36.8; O2SAT 92–96
[2018-02-06] MEDS: Ipratropium/Albuterol Sulfate 3 ML AMPUL.NEB INHALATION ×6 (03:16→22:44)
--- NOTE | 2018-02-06 05:55 | RAD_ITS ---
STUDY: X-RAY CHEST REASON FOR EXAM: Female, 67 years old. Congestive heart failure. TECHNIQUE: Single AP portable view of the chest. COMPARISON: February 04, 2018. FINDINGS: Cardiac monitoring leads are present. The lungs are expanded. There is obscuration of the lung bases secondary to large pleural effusions. There may be associated airspace disease and/or atelectasis. There is groundglass attenuation in the left upper lobe. There is mild cardiac enlargement. Normal mediastinum and angi. There is prominence of the pulmonary hilar arteries with peripheral pulmonary vascular congestion. There is atherosclerotic calcification of the aortic arch with tortuosity. There is demineralization of the osseous structures. Normal visualized ribs, clavicles, and shoulders. There is no demonstrated abnormality of the visualized soft tissue structures of the upper abdomen. RAD/Chest 1 View (Portable) IMPRESSION: 1. Large pleural effusions are similar in appearance to the previous study with decreased pulmonary congestion. 2. New left upper lobe airspace disease. Electronically Signed: Deb Arango MD at 5:27 EDT , Service support ,
[2018-02-06] MEDS: dilTIAZem 60 MG Tablet PO ×3 (06:07→21:27)
[2018-02-06] MEDS: Cephalexin 500 MG Capsule PO ×2 (06:07→13:04)
[2018-02-06] MEDS: Furosemide 40 MG/4 ML Vial IV ×2 (06:07→13:03)
[2018-02-06] MEDS: 0.9% NaCl Peripheral Flush Adult/Peds IV ×4 (06:07→21:29)
[2018-02-06 07:17] LABS: Anion Gap 8 (5-15); BUN 20 mg/dL (7-18); BUN/Creat Ratio 20.6 RATIO (10-20); Calcium,Total 8.6 mg/dL (8.5-10.1); Chloride 104 mmol/L (98-107); Creatinine, Serum 0.97 mg/dL (0.55-1.02); EST Glomerular Filtration Rate 60 mL/min (>60); Est Glom Filt Rate - Afr Amer 73 mL/min (>60); Estimated Creatinine Clearance 45.28 ml/min; Glucose 129 mg/dL (74-106); Potassium 3.4 mmol/L (3.5-5.1); Sodium Level 145 mmol/L (136-145)
--- NOTE | 2018-02-06 07:33 | CON.PCM_ITS ---
Reason for Consult Date of Consultation: 02/06/18 Reason for Consultation: CECILIA History of Present Illness: The patient is a 67-year-old female, with a history as outlined below, who presented to the emergency department on February 04 with complaints of shortness of breath. The patient has chronic hypoxic respiratory failure with a 2 L/min baseline supplemental oxygen requirement. Her last pulmonary function testing completed in December 2017 revealed evidence of an irreversible severe mixed ventilatory defect with a symmetric reduction in diffusing capacity. She follows with Dr. Newman on an outpatient basis in the pulmonary medicine clinic. She was last seen by her nurse practitioner on January 04. The patient also follows with Dr. Hernandez of cardiology due to a history of atrial flutter with rapid ventricular response. She has undergone multiple prior DC cardioversions, which were unsuccessful. She was subsequently referred to EP for potential ablation therapy. The patient also has known obstructive sleep apnea based off of her initial diagnostic polysomnogram completed in December 2017, which revealed evidence of mild CECILIA with an apnea hypopnea index of 5.2 events per hour. A follow-up titration study completed in January revealed the need for bilevel therapy with a pressure support of 26/20 centimeters of water with humidification along with a 6 L/min supplemental oxygen bleed in. On presentation to the emergency department, the patient was noted to be afebrile and hemodynamically stable. She was tachycardic and tachypneic. Laboratory evaluation revealed a mildly elevated white blood cell count to 12,000. Arterial blood gas obtained on BiPAP 16/ was normal. Chemistry profile revealed evidence of acute kidney injury with creatinine 1.25. Troponin was negative. BNP was elevated to 628. Urinalysis revealed positive nitrites and leukocyte esterase along with 2+ urine bacteria. The patient was placed on antibiotics and IV diuretics. She was admitted to the progressive care unit for ongoing management. The patient is currently overall net -3 L for the admission. Her oxygen requirements have decreased accordingly. Past Medical History Past Medical History (Chronic Problems): Chronic Problems (Last Reviewed 02/04/18 @ 20:20 by Wyatt Lora MD) Chronic obstructive pulmonary disease (Chronic) Morbid obesity (Chronic) HTN (hypertension) (Chronic) GERD (gastroesophageal reflux disease) (Chronic) Medical History: Medical History (Last Reviewed 02/04/18 @ 20:20 by Wyatt Lora MD) Shortness of breath (Acute) R06.02 Atrial flutter with rapid ventricular response (Acute) I48.92 Healthcare associated bacterial pneumonia (Acute) J15.9 Acute kidney injury (Acute) N17.9 Chest pain (Acute) R07.9 Chronic obstructive pulmonary disease (Chronic) J44.9 Acute respiratory failure (Acute) J96.00 Healthcare-associated pneumonia (Acute) J18.9 Atrial flutter (Acute) I48.92 Morbid obesity (Chronic) E66.01 HTN (hypertension) (Chronic) I10 GERD (gastroesophageal reflux disease) (Chronic) K21.9 CECILIA (obstructive sleep apnea) G47.33 Allergies aspirin [ASA] Adverse Reaction (Verified 02/04/18 20:59) stomach burning and sick to stomach propoxyphene HCl [From Darvon] Adverse Reaction (Verified 02/04/18 20:59) i get dizzy and pass out Home Medications: Ambulatory Orders Medication Instructions Recorded Calcium Carbonate/Vitamin D3 1 ea PO DAILY 11/14/17 [Calcium 500+D Tablet Chew] acetaminophen 500 mg tablet 1,000 mg PO Q6H PRN tab 12/01/17 Lorazepam [Ativan] 0.5 mg PO Q6H PRN PRN #14 tab 12/05/17 Metoprolol Tartrate [Lopressor 50 mg PO BID #60 tab 12/05/17 (beta maeve)] Pantoprazole Sodium [Protonix] 20 mg PO DAILY #30 tab 12/05/17 Rivaroxaban [Xarelto] 20 mg PO DAILY@1800 #30 tab 12/05/17 albuterol sulfate 2.5 mg/3 mL 2.5 mg INHALATION Q4H PRN #180 vial 01/04/18 (0.083 %) solution for nebulization albuterol sulfate HFA 90 2 puff INHALATION Q4H PRN #18 g 01/04/18 mcg/actuation aerosol inhaler Diltiazem [Cardizem] 60 mg PO TID 02/04/18 Omeprazole [Prilosec] 20 mg PO DAILY 02/04/18 Surgical History: Surgical History (Last Reviewed 02/04/18 @ 20:20 by Wyatt Lora MD) History of total hysterectomy Z90.710 Surgical History: hysterectomy - total Psychiatric History: No pertinent psych hx 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 Lives: Spouse/ Significant Other Smoking Status: Former smoker Alcohol: None - *Family History Maternal Family History: Family History (Last Reviewed 02/04/18 @ 20:20 by Wyatt Lora MD) Mother Heart disease Father Heart disease History Items: Heart Disease Paternal Family History: Family History (Last Reviewed 02/04/18 @ 20:20 by Wyatt Lroa MD) Mother Heart disease Father Heart disease History Items: Heart Disease Review of Systems Constitutional: Denies: Chills, Fever, Night Sweats Eyes: Denies: Blurred vision, Double vision HEENT: Denies: Head Aches, Sinus Congestion, Sinus Drainage Cardiovascular: Reports: Edema. Denies: Chest Pain, Palpitations Respiratory: Reports: Shortness of Breath Gastrointestinal: Denies: Abdominal Pain, Nausea, Vomiting Genitourinary: Denies: Dysuria Musculoskeletal: Denies: Joint Pain, Joint Tenderness Skin: Denies: Rash, Wounds Neurological: Denies: Numbness, Tingling, Focal weakness Psychiatric: Denies: Anxiety, Depression, Homicidal Ideations, Suicidal Ideations Hematologic/ Lymphatic: Denies: Easy Bruising, Easy Bleeding Patient Problems: Active and Suspected Problems (Last Reviewed 02/04/18 @ 20:20 by Wyatt Lora MD) Heart failure (Acute) Objective: The patient's most recent lab work, culture data and imaging studies have all been personally reviewed. Surface echocardiogram from November 2017 revealed a mildly dilated LV with mild concentric LVH and ejection fraction of 55%. Patient's right ventricular systolic pressure was noted to be 35 mmHg. The p atient's RV was moderately dilated with mild to moderate global RV systolic dysfunction. - Physical Exam General: Alert, Oriented x3, Cooperative, - - Morbidly obese. Sitting in bedside recliner. HEENT: Atraumatic, PERRLA, Normocephalic Oral: No Gingival or Mucosal Lesions/ Ulcerations Neck: Supple, No Nodes, Trachea Midline, - - Large neck circumference with redundant soft tissue. Lungs: No rhonchi, No wheeze, No rales, Diminished Cardiovascular: Normal S1, Normal S2, No murmurs, Irregular Rate Abdomen: Bowel Sounds Present, Soft, Non Tender, Obese Extremities: No clubbing, No cyanosis, Edema Skin: No breakdown Musculoskeletal: No Muscle Wasting Lymphatic: No Cervical, Supraclavicular, or Inguinal Adenopathy Neurological: Cranial nerves II-XII grossly intact, Neuro grossly intact Psych/Mental Status: Alert and oriented to time, place, person, mood and affect Vital Signs Temp Pulse Resp BP Pulse Ox 97.4 F L 83 17 128/69 H 96 02/06/18 03:33 02/06/18 06:05 02/06/18 03:33 02/06/18 06:05 02/06/18 03:33 Oxygen Flow Rate (L/min) 3.5 Oxygen Delivery Method Bi-pap Weight: 357 lb 5.909 oz Body Mass Index (BMI) 64.3 Intake and Output for Last 24 Hours 02/04/18 02/05/18 02/06/18 23:59 23:59 23:59 Intake Total 240 / 240 980 / 980 240 / 240 Output Total 1025 / 1025 3050 / 3050 400 / 400 Balance -785 / -785 -2070 / -2070 -160 / -160 Laboratory Tests Past 24 Hrs 02/06/18 06:10 Sodium 145 Potassium 3.4 L Chloride 104 Carbon Dioxide 33.0 H Anion Gap 8 BUN 20 H Creatinine 0.97 Estim Creat Clear Calc 45.28 Est GFR (MDRD) Af Amer 73 Est GFR (MDRD) Non-Af 60 BUN/Creatinine Ratio 20.6 H Glucose 129 H Calcium 8.6 Labs (Last 48 Hours) 02/04/18 02/04/18 02/04/18 18:24 18:24 18:24 WBC 11.8 H RBC 5.04 Hgb 14.4 Hct 48.5 H MCV 96.2 MCH 28.6 MCHC 29.7 L RDW 14.1 RDW Differential 49.5 H Plt Count 217 MPV 9.7 Immature Gran % (Auto) 0.300 Neut % (Auto) 55.5 Lymph % (Auto) 31.8 [place] % (Auto) 10.9 H Eos % (Auto) 1.3 Baso % (Auto) 0.2 Absolute Neuts (auto) 6.6 Absolute Lymphs (auto) 3.77 Total Counted Not Reportable Specimen Type Sample Site pH Bicarbonate Actual POC Total CO2 Base Excess O2 Saturation O2 % ABG pCO2 ABG pO2 Andrew Test O2 Delivery Device EPAP IPAP Blood Gas Notified Whom Blood Gas Notified Time Sodium 144 Potassium 3.9 Chloride 107 Carbon Dioxide 33.0 H Anion Gap 4 L BUN 19 H Creatinine 1.25 H Estim Creat Clear Calc 35.14 Est GFR (MDRD) Af Amer 55 L Est GFR (MDRD) Non-Af 45 L BUN/Creatinine Ratio 15.2 Glucose 134 H Calcium 8.5 Troponin I < 0.015 B-Natriuretic Peptide 628.5 H Urine Color Urine Clarity Urine pH Ur Specific [place] Urine Protein Urine Glucose (UA) Urine Ketones Urine Occult Blood Urine Nitrite Urine Bilirubin Urine Urobilinogen Ur Leukocyte Esterase Urine RBC Urine WBC Ur Squamous Epith Cells Urine Bacteria Urine Mucus 02/04/18 02/04/18 02/05/18 20:02 21:50 05:22 WBC 6.9 RBC 4.74 Hgb 13.7 Hct 45.1 MCV 95.1 MCH 28.9 MCHC 30.4 L RDW 14.0 RDW Differential 47.2 H Plt Count 174 MPV 10.1 Immature Gran % (Auto) Neut % (Auto) Lymph % (Auto) [place] % (Auto) Eos % (Auto) Baso % (Auto) Absolute Neuts (auto) Absolute Lymphs (auto) Total Counted Specimen Type ART Sample Site R Brachial pH 7.40 Bicarbonate Actual 31.1 H POC Total CO2 33 Base Excess 6 H O2 Saturation 94 L O2 % 40 ABG pCO2 50.2 H ABG pO2 72 L Andrew Test NA O2 Delivery Device Bi / C PAP EPAP 10 IPAP 16 Blood Gas Notified Whom HOSP Blood Gas Notified Time 2144 Sodium Potassium Chloride Carbon Dioxide Anion Gap BUN Creatinine Estim Creat Clear Calc Est GFR (MDRD) Af Amer Est GFR (MDRD) Non-Af BUN/Creatinine Ratio Glucose Calcium Troponin I B-Natriuretic Peptide Urine Color Arin Urine Clarity Cloudy Urine pH 5.0 Ur Specific [place] 1.020 Urine Protein 100 H Urine Glucose (UA) Normal Urine Ketones Negative Urine Occult Blood 250 H Urine Nitrite Positive H Urine Bilirubin 1 H Urine Urobilinogen 4 H Ur Leukocyte Esterase 100 H Urine RBC > 100 SEEN Urine WBC 0-5 SEEN Ur Squamous Epith Cells 0 SEEN Urine Bacteria 2+ Urine Mucus 0 SEEN 02/05/18 02/06/18 05:22 06:10 WBC RBC Hgb Hct MCV MCH MCHC RDW RDW Differential Plt Count MPV Immature Gran % (Auto) Neut % (Auto) Lymph % (Auto) [place] % (Auto) Eos % (Auto) Baso % (Auto) Absolute Neuts (auto) Absolute Lymphs (auto) Total Counted Specimen Type Sample Site pH Bicarbonate Actual POC Total CO2 Base Excess O2 Saturation O2 % ABG pCO2 ABG pO2 Andrew Test O2 Delivery Device EPAP IPAP Blood Gas Notified Whom Blood Gas Notified Time Sodium 146 H 145 Potassium 4.2 3.4 L Chloride 109 H 104 Carbon Dioxide 27.0 33.0 H Anion Gap 10 8 BUN 19 H 20 H Creatinine 1.05 H 0.97 Estim Creat Clear Calc 41.83 45.28 Est GFR (MDRD) Af Amer 67 73 Est GFR (MDRD) Non-Af 55 L 60 BUN/Creatinine Ratio 18.1 20.6 H Glucose 139 H 129 H Calcium 8.6 8.6 Troponin I B-Natriuretic Peptide Urine Color Urine Clarity Urine pH Ur Specific [place] Urine Protein Urine Glucose (UA) Urine Ketones Urine Occult Blood Urine Nitrite Urine Bilirubin Urine Urobilinogen Ur Leukocyte Esterase Urine RBC Urine WBC Ur Squamous Epith Cells Urine Bacteria Urine Mucus Clinical Impression(s) from Imaging Studies Chest X-Ray 02/04/18 18:40 IMPRESSION: Findings compatible with worsening interstitial edema/congestive failure with effusions. Electronically Signed: Edwin Duarte MD at 19:11 EDT , Service support , Chest X-Ray 02/06/18 05:55 IMPRESSION: 1. Large pleural effusions are similar in appearance to the previous study with decreased pulmonary congestion. 2. New left upper lobe airspace disease. Electronically Signed: Deb Arango MD at 5:27 EDT , Service support , Assessment/Plan All Active Problems (Last Reviewed 02/04/18 @ 20:20 by Wyatt Lora MD) Heart failure (Acute) CECILIA (obstructive sleep apnea) (Acute) Shortness of breath (Acute) Atrial flutter with rapid ventricular response (Acute) Healthcare associated bacterial pneumonia (Acute) Acute kidney injury (Acute) Chest pain (Acute) Acute respiratory failure (Acute) Healthcare-associated pneumonia (Acute) Atrial flutter (Acute) RECOMMENDATIONS: 1. Continue diuretics as ordered. 2. Wean supplemental oxygen and encourage incentive spirometer use. 3. Mobilize patient as tolerated. 4. Place patient on BiPAP 26/20 centimeters of water +6L with naps and nightly. 5. The patient should follow-up as scheduled with Dr. Newman in the pulmonary medicine clinic within 3 months of initiating BIPAP in her home environment. IMPRESSIONS: 1. Chronic hypoxemic respiratory failure/baseline severe mixed ventilatory defect The patient appears to have responded to volume optimization with IV diuretics. She does have evidence of bilateral pleural effusions on chest imaging. The etiology for her dyspnea on presentation is likely the consequence of decompensated heart failure. She is currently maintaining appropriate oxygen saturations on her baseline outpatient requirement. Recommend continued volume optimization along with mobilization. Encourage incentive spirometer use. 2. Obstructive sleep apnea The exact reason for the patient's consultation to me is a bit unclear, as I was consulted for CECILIA. She does already have known CECILIA and is already prescribed BiPAP. [place] [facility] [place]. She would need to follow-up with Dr. Newman as scheduled within 3 months of initiating nocturnal Pap therapy. In the interim, recommend that the patient be placed on bilevel with a pressure support of 26/20 centimeters of water with a 6 L supplemental oxygen bleed in, per the recommendations of her titration polysomnogram. 3. History of atrial flutter with rapid ventricular response/history of failed cardioversions Continue current cardiac medical management and diuretics. May wish to have cardiology evaluate patient, given that her symptoms are the consequence of decompensated heart failure. 4. Super morbid obesity/GERD/anxiety Complicates care, management, recovery and prognosis. This note was generated with [employer] dictation software. It may contain incorrect words, spelling, and punctuation that were not noted in checking the note before signing. Code Visit Inpatient E&M: 30844 Init Hosp L3
[2018-02-06] MEDS: Nystatin Powder 15gm Bottle 1 APPLIC TOPICAL ×2 (09:40→21:28)
[2018-02-06] MEDS: Calcium Carb/Vitamin D 1 TABLET Tablet PO (09:41)
[2018-02-06] MEDS: Pantoprazole Sodium 20 MG Tablet PO (09:41)
[2018-02-06] MEDS: Metoprolol Tartrate 50 MG Tablet PO ×2 (09:41→21:28)
[2018-02-06] MEDS: guaiFENesin 600 MG Tablet PO ×2 (09:41→21:28)
--- NOTE | 2018-02-06 16:49 | PCM.PN.HOSP ---
Patient Problems: Active and Suspected Problems (Last Reviewed 02/04/18 @ 20:20 by Wyatt Lora MD) Heart failure (Acute) Subjective: Patient is a 67-year-old female with a history of morbid obesity with BMI of 63, chronic diastolic CHF/HFpEF, hypertension, GERD, history of atrial flutter on chronic anticoagulation, CECILIA and COPD on supplemental O2 of 1-2 L daily who was admitted for acute on chronic respiratory failure. Patient was noted to be in decompensated heart failure. At this time, patient reports that her breathing is much better. Has diuresed approximately 5-6 L of fluid since admission. States that she is near her baseline respiratory status and is currently down to 2 L of supplemental O2 via nasal cannula. States that she has been able to ambulate with therapy and states that her breathing appears to be almost back to normal. Denies any chest pain or palpitations. Does admit that she has been utilizing her incentive spirometry and has had significant improvement with this, stating that she can go all the way up to 1200 cc. Admits to a productive cough of thick greenish sputum. States her nightly BiPAP has helped significantly. Also states bilateral lower extremity swelling has significantly improved with IV Lasix. Denies any calf tenderness. 2D echocardiogram on 11/18/17: Mildly dilated left ventricle. Left ventricular systolic function is normal. The estimated ejection fraction is 55 %. Mild concentric left ventricular hypertrophy. Moderately dilated right ventricle. Mild to moderate global right ventricular systolic dysfunction. The left atrium is mildly enlarged. The right atrium is mildly enlarged. There is mild mitral annular calcification. Extension of the mitral annular calcification onto the posterior mitral valve leaflet. Trivial mitral valve insufficiency. Trivial tricuspid valve insufficiency. Trivial pulmonic valve insufficiency. Right ventricular systolic pressure estimated to be 35 mmHg. Transmitral diastolic flow velocities suggest diastolic dysfunction (pseudonormal pattern). Vitals/I&O's: Vital Signs Temp Pulse Resp BP Pulse Ox 98.1 F 95 17 113/60 92 02/06/18 11:30 02/06/18 14:58 02/06/18 14:45 02/06/18 11:30 02/06/18 11:30 Oxygen Flow Rate (L/min) 4 Oxygen Delivery Method Nasal Cannula Weight: 162.1 kg Body Mass Index (BMI) 64.3 Intake and Output for Last 24 Hours 02/04/18 02/05/1818 23:59 23:59 23:59 Intake Total 240 / 240 980 / 980 690 / 690 Output Total 1025 / 1025 3050 / 3050 2550 / 2550 Balance -785 / -785 -2069 / -2069 -1859 / -1859 General: Alert, Oriented x3, Cooperative HEENT: Normocephalic Neck: Supple, No JVD Lungs: Clear to auscultation, No rales - No noted rales but with decreased breath sounds, Diminished Cardiovascular: Regular rate, Normal S1, Normal S2 Abdomen: Bowel Sounds Present, Soft, Non Tender Extremities: Capillary Refill Less than 3 Seconds, Edema - With baseline lower extremity edema and wraps in place Skin: No rashes, No breakdown Musculoskeletal: No Tenderness to Palpation of Joints or Extremities Neurological: Cranial nerves II-XII grossly intact Psych/Mental Status: Normal Affect, Appropriate Laboratory Results 02/06/18 06:10: Sodium 145, Potassium 3.4 L, Chloride 104, Carbon Dioxide 33.0 H, Anion Gap 8, BUN 20 H, Creatinine 0.97, Estim Creat Clear Calc 45.28, Est GFR (MDRD) Af Amer 73, Est GFR (MDRD) Non-Af 60, BUN/Creatinine Ratio 20.6 H, Glucose 129 H, Calcium 8.6 Current Medications Acetaminophen (Tylenol) 650 mg PO Q6H PRN PRN PRN Reason: Mild Pain (scale 0-3)/T>100.7 Albuterol Sulfate (Ventolin Aerosols) 2.5 mg INHALATION Q2H PRN PRN PRN Reason: SHORTNESS OF BREATH Albuterol/Ipratropium (Duoneb) 3 ml INHALATION Q4H.RT [facility] Last Admin: 02/06/18 14:13 Dose: 3 ml Bisacodyl (Dulcolax) 5 mg PO DAILY PRN PRN PRN Reason: Constipation Calcium/Vitamin D (Os-Jose 500mg + D) 1 tablet PO DAILY [facility] Last Admin: 02/06/18 09:41 Dose: 1 tablet Cephalexin (Keflex) 500 mg PO Q6 [facility] Last Admin: 02/06/18 13:04 Dose: 500 mg Diltiazem HCl (Cardizem) 60 mg PO TID [facility] Last Admin: 02/06/18 13:03 Dose: 60 mg Furosemide (Lasix) 40 mg IV Q8 [facility] Last Admin: 02/06/18 13:03 Dose: 40 mg Guaifenesin (Mucinex) 600 mg PO BID [facility] Last Admin: 02/06/18 09:41 Dose: 600 mg Lorazepam (Ativan) 0.5 mg PO Q6H PRN PRN PRN Reason: ANXIETY Magnesium Hydroxide (Milk Of Magnesia) 30 ml PO DAILY PRN PRN Reason: Constipation Metoprolol Tartrate (Lopressor (Beta Wallace)) 50 mg PO BID [facility] Last Admin: 02/06/18 09:41 Dose: 50 mg Nystatin (Mycostatin Powder) 1 applic TOPICAL BID [facility]; Protocol Last Admin: 02/06/18 09:40 Dose: 1 applic Ondansetron HCl (Zofran) 4 mg IV Q8H PRN PRN PRN Reason: Nausea Pantoprazole Sodium (Protonix) 20 mg PO DAILY [facility] Last Admin: 02/06/18 09:41 Dose: 20 mg Sodium Chloride () 5 - 30 ml IV UD PRN PRN Reason: SALINE FLUSH Last Admin: 02/06/18 13:03 Dose: 10 ml Zolpidem Tartrate (Ambien (Generic)) 5 mg PO QHS PRN PRN PRN Reason: INSOMNIA Medical Necessity - Tobacco Use Smoking Status: Former smoker Assessment/Plan All Active Problems (Last Reviewed 02/04/18 @ 20:20 by Wyatt Lora MD) Heart failure (Acute) CECILIA (obstructive sleep apnea) (Acute) Shortness of breath (Acute) Atrial flutter with rapid ventricular response (Acute) Healthcare associated bacterial pneumonia (Acute) Acute kidney injury (Acute) Chest pain (Acute) Acute respiratory failure (Acute) Healthcare-associated pneumonia (Acute) Atrial flutter (Acute) Patient is a 67-year-old female with a history of morbid obesity with BMI of 63, chronic diastolic CHF/HFpEF, hypertension, GERD, history of atrial flutter on chronic anticoagulation, CECILIA and COPD on supplemental O2 of 1-2 L daily who was admitted for acute on chronic respiratory failure. Patient was noted to be in decompensated heart failure. X 1. Acute on chronic hypoxemic respiratory failure, resolved Multifactorial but likely related to decompensated heart failure. 2. Acute on chronic diastolic CHF/HFpEF Appears to be responding appropriately to IV Lasix/diuresis. With urine output of over 5-6 L and weight loss of 2.5 kg since admission. Continue with IV Lasix, fluid restriction and daily weights. We will recheck chest x-ray as patient was noted to have bilateral large pleural effusions (evaluate improvement versus progression and possible need for therapeutic/diagnostic thoracentesis). 3. Suspected CAP Chest x-ray with new upper lobe infiltrate, questionable pneumonia. Patient is on Keflex for a UTI however will change this to oral Levaquin. 4. Chronic atrial flutter status post cardioversion, on anticoagulation Patient currently in sinus rhythm. Rate controlled, continue with Xarelto. 5. CECILIA Continue with BiPAP nightly. Patient utilizes CPAP at night. 6. COPD, on supplemental O2 of 2 L daily Not in acute exacerbation but will require continued scheduled bronchodilators. Wean down supplemental O2 via nasal cannula back down to her baseline of 2 L daily. 7. Morbid obesity, BMI of 63 Aware. 8. UTI On Levaquin 9. DVT prophylaxis Lovenox. Await improvement in respiratory status back to her baseline. Continue with current IV diuresis and change antibiotics to Levaquin. Blood cultures were not obtained on admission, will thus check blood cultures and sputum cultures. Anticipate possible discharge home in 1-2 days pending clinical improvement. Code Visit Inpatient E&M: 21534 Subs Hosp L3
[2018-02-06] MEDS: Bisacodyl 5 MG Tablet PO (17:38)
[2018-02-06] MEDS: Furosemide 40 MG/4 ML Vial 80 MG IV (21:27)
[2018-02-07] VITALS (26 sets, daily range): BP systolic 100–142; BP diastolic 45–89; PULSE 61–104; RESP 12–30; TEMP 36.2–36.9; O2SAT 92–98; BMI 28.0
[2018-02-07] MEDS: Ipratropium/Albuterol Sulfate 3 ML AMPUL.NEB INHALATION ×5 (02:51→19:50)
--- NOTE | 2018-02-07 05:55 | RAD_ITS ---
STUDY: X-RAY CHEST REASON FOR EXAM: Female, 67 years old. COPD. Short of breath and dyspnea. Status post left thoracentesis. TECHNIQUE: Frontal and lateral views of the chest. COMPARISON: 02/06/2018. FINDINGS: No pneumothorax. Persistent large left pleural effusion and underlying atelectasis or infiltrate. Small right pleural effusion with probable atelectasis in the right lung base. Cannot adequately assess heart size because of overlying density. Normal visualized aortic arch and descending thoracic aorta. There are diffuse degenerative changes of the visualized thoracic spine. Normal visualized ribs, clavicles, and shoulders. There is no demonstrated abnormality of the visualized soft tissue structures of the upper abdomen. RAD/Chest PA and Lateral IMPRESSION: Bilateral pleural effusions, large on the left and small on the right. Atelectasis or infiltrate probably in the lower left lung. Electronically Signed: Temo Yarbrough MD at 19:10 EDT , Service support ,
[2018-02-07 06:32] LABS: Absolute Lymphocyte Count 1.95 X10^3/ul (0.83-4.51); Absolute Neutrophil Count 6.2 X10^3/uL (2.0-7.7); Eosinophil# 0.08 X10^3/uL; Eosinophils% 0.9 % (0-5); Hematocrit 41.4 % (37-47); Hemoglobin 12.6 g/dl (12.0-15.0); Lymphocyte # 1.95 X10^3/ul (4.0); Lymphocyte % 20.9 % (19-41); Mean Corp Hgb Conc 30.4 g/gl (32-36); Mean Corpuscular Hgb 28.5 pg (27.0-32.0); Mean Corpuscular Volume 93.7 fL (81-99); Mean Platelet Vol. 9.9 fl (6.2-12.0); Monocyte# 1.13 X10^3/uL; Monocyte% 12.1 % (0-10); Neutrophil # 6.15 X10^3/uL (2.7-7.7); Neutrophil % 65.9 % (47-70); Platelet Count 193 K/mm3 (150-450); RBC Distribution Width CV 14.2 % (11.6-14.6); RBC Distribution Width SD 46.8 fl (35.1-43.9); Red Blood Count 4.42 M/mm3 (4.2-5.4); White Blood Count 9.3 K/mm3 (4.4-11.0)
[2018-02-07] MEDS: dilTIAZem 60 MG Tablet PO ×3 (06:46→21:26)
[2018-02-07] MEDS: levoFLOXacin 750 MG Tablet PO (06:46)
[2018-02-07 06:56] LABS: Anion Gap 6 (5-15); BUN 25 mg/dL (7-18); BUN/Creat Ratio 22.5 RATIO (10-20); Calcium,Total 8.3 mg/dL (8.5-10.1); Chloride 100 mmol/L (98-107); Creatinine, Serum 1.11 mg/dL (0.55-1.02); EST Glomerular Filtration Rate 52 mL/min (>60); Est Glom Filt Rate - Afr Amer 63 mL/min (>60); Estimated Creatinine Clearance 39.57 ml/min; Glucose 79 mg/dL (74-106); Potassium 3.2 mmol/L (3.5-5.1); Sodium Level 143 mmol/L (136-145)
[2018-02-07 07:00] LABS: POSITIVE COUNT NO; POSITIVE DIFFERENTIAL NO; POSITIVE MORPHOLOGY NO
--- NOTE | 2018-02-07 07:36 | PCM.PROGNOTE ---
Patient Problems: Active and Suspected Problems (Last Reviewed 02/04/18 @ 20:20 by Wyatt Lora MD) Heart failure (Acute) Subjective: The patient was seen and examined at the bedside this morning. Events from the last 24 hours have been reviewed. The patient is currently afebrile, hemodynamically stable and maintaining appropriate oxygen saturations on 3-4 L/min via nasal cannula. The patient is currently overall net -10 L for the admission. Her potassium is low this morning at 3.2 and she is developing a contraction alkalosis and mild acute kidney injury. Repeat chest imaging from this morning was personally reviewed and revealed interval improvement in the right-sided pleural effusion with continued blunting of the right costophrenic angle and continued evidence of a moderately large left-sided pleural effusion. The patient reports that she has been unable to expectorate any sputum. She is anxious about her upcoming thoracentesis. Objective: The patient's most recent lab work, culture data and imaging studies have all been personally reviewed. Her last pulmonary function testing completed in December 2017 revealed evidence of an irreversible severe mixed ventilatory defect with a symmetric reduction in diffusing capacity. The patient also has known obstructive sleep apnea based off of her initial diagnostic polysomnogram completed in December 2017, which revealed evidence of mild CECILIA with an apnea hypopnea index of 5.2 events per hour. A follow-up titration study completed in January revealed the need for bilevel therapy with a pressure support of 26/20 centimeters of water with humidification along with a 6 L/min supplemental oxygen bleed in. Surface echocardiogram from November 2017 revealed evidence of a mildly dilated LV with mild concentric LVH and an ejection fraction of 55%. The RV was moderately dilated with mild to moderate global RV systolic dysfunction. Right ventricular systolic pressure was estimated to be 35 mmHg. - Physical Exam General: Alert, Oriented x3, Cooperative, No apparent distress HEENT: Atraumatic, PERRLA, Normocephalic Oral: No Gingival or Mucosal Lesions/ Ulcerations Neck: Supple, No Nodes, Trachea Midline, - - Large neck circumference with redundant soft tissue. Lungs: No rhonchi, No wheeze, No rales, Diminished Cardiovascular: Regular rate, Regular Rhythm, Normal S1, Normal S2, No murmurs Abdomen: Bowel Sounds Present, Soft, Non Tender, Obese Extremities: No clubbing, No cyanosis, Edema, - - Wrapped lower extremities Skin: - - No significant change from previous Musculoskeletal: No Tenderness to Palpation of Joints or Extremities, No Muscle Wasting Lymphatic: No Cervical, Supraclavicular, or Inguinal Adenopathy Neurological: Cranial nerves II-XII grossly intact, Neuro grossly intact Psych/Mental Status: Alert and oriented to time, place, person, mood and affect Vital Signs Temp Pulse Resp BP Pulse Ox 97.2 F L 83 20 H 128/83 H 94 02/07/18 06:45 02/07/18 06:45 02/07/18 06:45 02/07/18 06:45 02/07/18 06:45 Oxygen Flow Rate (L/min) 4 Oxygen Delivery Method Bi-pap Weight: 348 lb 12.34 oz Body Mass Index (BMI) 64.3 Intake and Output for Last 24 Hours 02/05/18 02/06/18 02/07/18 23:59 23:59 23:59 Intake Total 980 / 980 1160 / 1160 240 / 240 Output Total 3050 / 3050 4550 / 4550 4025 / 4025 Balance -2070 / -2070 -3390 / -3390 -3785 / -3785 Laboratory Tests Past 24 Hrs 02/07/18 02/07/18 05:55 05:55 WBC 9.3 RBC 4.42 Hgb 12.6 Hct 41.4 MCV 93.7 MCH 28.5 MCHC 30.4 L RDW 14.2 RDW Differential 46.8 H Plt Count 193 MPV 9.9 Immature Gran % (Auto) 0.200 Neut % (Auto) 65.9 Lymph % (Auto) 20.9 Towner % (Auto) 12.1 H Eos % (Auto) 0.9 Baso % (Auto) 0.0 Absolute Neuts (auto) 6.2 Absolute Lymphs (auto) 1.95 Total Counted Not Reportable Sodium 143 Potassium 3.2 L Chloride 100 Carbon Dioxide 37.0 H Anion Gap 6 BUN 25 H Creatinine 1.11 H Estim Creat Clear Calc 39.57 Est GFR (MDRD) Af Amer 63 Est GFR (MDRD) Non-Af 52 L BUN/Creatinine Ratio 22.5 H Glucose 79 Calcium 8.3 L Clinical Impression(s) from Imaging Studies Chest X-Ray 02/04/18 18:40 IMPRESSION: Findings compatible with worsening interstitial edema/congestive failure with effusions. Electronically Signed: Edwin Duarte MD at 19:11 EDT , Service support , Chest X-Ray 02/06/18 05:55 IMPRESSION: 1. Large pleural effusions are similar in appearance to the previous study with decreased pulmonary congestion. 2. New left upper lobe airspace disease. Electronically Signed: Deb Arango MD at 5:27 EDT , Service support , Medical Necessity - Tobacco Use Smoking Status: Former smoker Assessment/Plan All Active Problems (Last Reviewed 02/04/18 @ 20:20 by Wyatt Lora MD) Heart failure (Acute) CECILIA (obstructive sleep apnea) (Acute) Shortness of breath (Acute) Atrial flutter with rapid ventricular response (Acute) Healthcare associated bacterial pneumonia (Acute) Acute kidney injury (Acute) Chest pain (Acute) Acute respiratory failure (Acute) Healthcare-associated pneumonia (Acute) Atrial flutter (Acute) RECOMMENDATIONS: 1. Discontinue IV diuretics, as the patient is developing a contraction alkalosis. Consider decreasing dosing and transitioning to p.o. regimen. 2. Mobilize patient as tolerated. 3. Place patient on BiPAP 26/20 centimeters of water +6L with naps and nightly. 4. Agree with obtaining diagnostic left-sided ultrasound guided thoracentesis. Pleural fluid studies have been ordered. Check serum LDH and total protein levels. 5. The patient should follow-up as scheduled with Dr. Newman in the pulmonary medicine clinic within 3 months of initiating BIPAP in her home environment. IMPRESSIONS: 1. Chronic hypoxemic respiratory failure/baseline severe mixed ventilatory defect The patient appears to have responded to volume optimization with IV diuretics. She does have evidence of bilateral pleural effusions on chest imaging. The etiology for her dyspnea on presentation is likely the consequence of decompensated heart failure. The patient has responded to IV diuresis, but is beginning to develop a contraction alkalosis. Her chest imaging continues to demonstrate the presence of bilateral effusions, left greater than right. She is currently scheduled for an ultrasound-guided thoracentesis this afternoon. The patient's diuretic regimen ideally needs to be scaled back. Would plan to continue to wean supplemental oxygen as tolerated. Encourage incentive spirometer use and mobilize patient as tolerated. 2. Obstructive sleep apnea The exact reason for the patient's consultation to me is a bit unclear, as I was consulted for CECILIA. She does already have known CECILIA and is already prescribed BiPAP. 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 She would need to follow-up with Dr. Newman as scheduled within 3 months of initiating nocturnal Pap therapy. In the interim, recommend that the patient be placed on bilevel with a pressure support of 26/20 centimeters of water with a 6 L supplemental oxygen bleed in, per the recommendations of her titration polysomnogram. 3. History of atrial flutter with rapid ventricular response/history of failed cardioversions Continue current cardiac medical management and diuretics. May wish to have cardiology evaluate patient, given that her symptoms are the consequence of decompensated heart failure. 4. Super morbid obesity/GERD/anxiety Complicates care, management, recovery and prognosis. This note was generated with [employer] dictation software. It may contain incorrect words, spelling, and punctuation that were not noted in checking the note before signing. Code Visit Inpatient E&M: [id number] [facility] Hosp L3
--- NOTE | 2018-02-07 07:41 | PN_ITS ---
Patient Problems: Active and Suspected Problems (Last Reviewed 02/04/18 @ 20:20 by Wyatt Lora MD) Heart failure (Acute) Subjective: The patient was seen and examined at the bedside this morning. Events from the last 24 hours have been reviewed. The patient is currently afebrile, hemodynamically stable and maintaining appropriate oxygen saturations on 3-4 L/min via nasal cannula. The patient is currently overall net -10 L for the admission. Her potassium is low this morning at 3.2 and she is developing a contraction alkalosis and mild acute kidney injury. Repeat chest imaging from this morning was personally reviewed and revealed interval improvement in the right-sided pleural effusion with continued blunting of the right costophrenic angle and continued evidence of a moderately large left-sided pleural effusion. The patient reports that she has been unable to expectorate any sputum. She is anxious about her upcoming thoracentesis. Objective: The patient's most recent lab work, culture data and imaging studies have all been personally reviewed. Her last pulmonary function testing completed in December 2017 revealed evidence of an irreversible severe mixed ventilatory defect with a symmetric reduction in diffusing capacity. The patient also has known obstructive sleep apnea based off of her initial diagnostic polysomnogram completed in December 2017, which revealed evidence of mild CECILIA with an apnea hypopnea index of 5.2 events per hour. A follow-up titration study completed in January revealed the need for bilevel therapy with a pressure support of 26/20 centimeters of water with humidification along with a 6 L/min supplemental oxygen bleed in. Surface echocardiogram from November 2017 revealed evidence of a mildly dilated LV with mild concentric LVH and an ejection fraction of 55%. The RV was moderately dilated with mild to moderate global RV systolic dysfunction. Right ventricular systolic pressure was estimated to be 35 mmHg. - Physical Exam General: Alert, Oriented x3, Cooperative, No apparent distress HEENT: Atraumatic, PERRLA, Normocephalic Oral: No Gingival or Mucosal Lesions/ Ulcerations Neck: Supple, No Nodes, Trachea Midline, - - Large neck circumference with redundant soft tissue. Lungs: No rhonchi, No wheeze, No rales, Diminished Cardiovascular: Regular rate, Regular Rhythm, Normal S1, Normal S2, No murmurs Abdomen: Bowel Sounds Present, Soft, Non Tender, Obese Extremities: No clubbing, No cyanosis, Edema, - - Wrapped lower extremities Skin: - - No significant change from previous Musculoskeletal: No Tenderness to Palpation of Joints or Extremities, No Muscle Wasting Lymphatic: No Cervical, Supraclavicular, or Inguinal Adenopathy Neurological: Cranial nerves II-XII grossly intact, Neuro grossly intact Psych/Mental Status: Alert and oriented to time, place, person, mood and affect Vital Signs Temp Pulse Resp BP Pulse Ox 97.2 F L 83 20 H 128/83 H 94 02/07/18 06:45 02/07/18 06:45 02/07/18 06:45 02/07/18 06:45 02/07/18 06:45 Oxygen Flow Rate (L/min) 4 Oxygen Delivery Method Bi-pap Weight: 348 lb 12.34 oz Body Mass Index (BMI) 64.3 Intake and Output for Last 24 Hours 02/05/18 02/06/18 02/07/18 23:59 23:59 23:59 Intake Total 980 / 980 1160 / 1160 240 / 240 Output Total 3050 / 3050 4550 / 4550 4025 / 4025 Balance -2070 / -2070 -3390 / -3390 -3785 / -3785 Laboratory Tests Past 24 Hrs 02/07/18 02/07/18 05:55 05:55 WBC 9.3 RBC 4.42 Hgb 12.6 Hct 41.4 MCV 93.7 MCH 28.5 MCHC 30.4 L RDW 14.2 RDW Differential 46.8 H Plt Count 193 MPV 9.9 Immature Gran % (Auto) 0.200 Neut % (Auto) 65.9 Lymph % (Auto) 20.9 Kings % (Auto) 12.1 H Eos % (Auto) 0.9 Baso % (Auto) 0.0 Absolute Neuts (auto) 6.2 Absolute Lymphs (auto) 1.95 Total Counted Not Reportable Sodium 143 Potassium 3.2 L Chloride 100 Carbon Dioxide 37.0 H Anion Gap 6 BUN 25 H Creatinine 1.11 H Estim Creat Clear Calc 39.57 Est GFR (MDRD) Af Amer 63 Est GFR (MDRD) Non-Af 52 L BUN/Creatinine Ratio 22.5 H Glucose 79 Calcium 8.3 L Clinical Impression(s) from Imaging Studies Chest X-Ray 02/04/18 18:40 IMPRESSION: Findings compatible with worsening interstitial edema/congestive failure with effusions. Electronically Signed: Edwin Duarte MD at 19:11 EDT , Service support , Chest X-Ray 02/06/18 05:55 IMPRESSION: 1. Large pleural effusions are similar in appearance to the previous study with decreased pulmonary congestion. 2. New left upper lobe airspace disease. Electronically Signed: Deb Arango MD at 5:27 EDT , Service support , Medical Necessity - Tobacco Use Smoking Status: Former smoker Assessment/Plan All Active Problems (Last Reviewed 02/04/18 @ 20:20 by Wyatt Lora MD) Heart failure (Acute) CECILIA (obstructive sleep apnea) (Acute) Shortness of breath (Acute) Atrial flutter with rapid ventricular response (Acute) Healthcare associated bacterial pneumonia (Acute) Acute kidney injury (Acute) Chest pain (Acute) Acute respiratory failure (Acute) Healthcare-associated pneumonia (Acute) Atrial flutter (Acute) RECOMMENDATIONS: 1. Discontinue IV diuretics, as the patient is developing a contraction alkalosis. Consider decreasing dosing and transitioning to p.o. regimen. 2. Mobilize patient as tolerated. 3. Place patient on BiPAP 26/20 centimeters of water +6L with naps and nightly. 4. Agree with obtaining diagnostic left-sided ultrasound guided thoracentesis. Pleural fluid studies have been ordered. Check serum LDH and total protein levels. 5. The patient should follow-up as scheduled with Dr. Newman in the pulmonary medicine clinic within 3 months of initiating BIPAP in her home environment. IMPRESSIONS: 1. Chronic hypoxemic respiratory failure/baseline severe mixed ventilatory defect The patient appears to have responded to volume optimization with IV diuretics. She does have evidence of bilateral pleural effusions on chest imaging. The etiology for her dyspnea on presentation is likely the consequence of decompensated heart failure. The patient has responded to IV diuresis, but is beginning to develop a contraction alkalosis. Her chest imaging continues to demonstrate the presence of bilateral effusions, left greater than right. She is currently scheduled for an ultrasound-guided thoracentesis this afternoon. The patient's diuretic regimen ideally needs to be scaled back. Would plan to continue to wean supplemental oxygen as tolerated. Encourage incentive spirometer use and mobilize patient as tolerated. 2. Obstructive sleep apnea The exact reason for the patient's consultation to me is a bit unclear, as I was consulted for CECILIA. She does already have known CECILIA and is already prescribed BiPAP. 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 She would need to follow-up with Dr. Newman as scheduled within 3 months of initiating nocturnal Pap therapy. In the interim, recommend that the patient be placed on bilevel with a pressure support of 26/20 centimet ers of water with a 6 L supplemental oxygen bleed in, per the recommendations of her titration polysomnogram. 3. History of atrial flutter with rapid ventricular response/history of failed cardioversions Continue current cardiac medical management and diuretics. May wish to have cardiology evaluate patient, given that her symptoms are the consequence of decompensated heart failure. 4. Super morbid obesity/GERD/anxiety Complicates care, management, recovery and prognosis. This note was generated with [employer] dictation software. It may contain incorrect words, spelling, and punctuation that were not noted in checking the note before signing. Code Visit Inpatient E&M: [id number] [facility] Hosp L3
--- NOTE | 2018-02-07 09:23 | US_ITS ---
PROCEDURE: ULTRASOUND GUIDED THORACENTESIS. DATE: February 07, 2013.. INDICATION: Female, 67 years old. Left pleural effusion. PHYSICIAN: Lewis Aguirre M.D. PROCEDURE: The risks, benefits, and alternatives to the procedure were explained to the patient. The specific risks of bleeding, infection, and pneumothorax requiring chest tube insertion were discussed and accepted. Written informed consent was obtained. Ultrasonographic evaluation of the left lower pleural space was carried out. An adequate pocket was identified. The patient was placed in the sitting, upright position. The overlying skin was prepped and draped in sterile fashion. 1% lidocaine was administered subcutaneously for local anesthesia. Under ultrasound guidance, a 5 Green[place]ic thoracentesis needle/catheter system was advanced into the left posterior lower pleural fluid collection. Approximately 150 mL of bloody fluid was drained. The catheter was removed, and a sterile dressing was applied. A specimen was collected and sent to the laboratory for analysis, as requested by the referring clinician. The patient tolerated the procedure well. A chest x-ray was ordered. US/Thoracentesis W US IMPRESSION: Ultrasound-guided left thoracentesis. Electronically Signed: Lewis Aguirre MD at 15:55 EDT Tel [phone], Service support ,
[2018-02-07] MEDS: guaiFENesin 600 MG Tablet PO ×2 (09:44→21:25)
[2018-02-07] MEDS: Pantoprazole Sodium 20 MG Tablet PO (09:44)
[2018-02-07] MEDS: Nystatin Powder 15gm Bottle 1 APPLIC TOPICAL ×2 (09:44→21:26)
[2018-02-07] MEDS: Calcium Carb/Vitamin D 1 TABLET Tablet PO (09:44)
[2018-02-07 10:13] LABS: LDH 204 U/L (84-246)
[2018-02-07 10:59] LABS: Prothrombin Time (Protime)PT. 13.5 SECONDS (11.7-14.9)
[2018-02-07 11:21] LABS: ALB/GLOB Ratio 0.9 RATIO (0.9-2.4); Globulin 3.3 g/dL (2.2-4.2); Protein, Total 6.3 g/dL (6.4-8.2)
[2018-02-07 11:52] LABS: Partial Thromboplast Time 25.1 Seconds (24.1-36.2)
[2018-02-07] MEDS: LORazepam 0.5 MG Tablet PO (11:54)
--- NOTE | 2018-02-07 13:51 | NURSING ---
STUDENT NURSE CHARTING REVIEWED BY THIS RN.,
--- NOTE | 2018-02-07 15:10 | RAD_ITS ---
STUDY: X-RAY CHEST REASON FOR EXAM: Female, 67 years old. The patient is status post left thoracentesis. TECHNIQUE: AP inspiration and expiration views. COMPARISON: Comparison is made with prior study dated February 07, 2018 done earlier today. FINDINGS: The patient is status post left thoracentesis. There is no evidence of pneumothorax. Residual pleural parenchymal changes persist at the left lung base. Blunting of the right costophrenic angle with mild increased markings at the right lung base. RAD/Chest Insp/Exp 2 View IMPRESSION: Status post left thoracentesis. There is no evidence of pneumothorax. Electronically Signed: Lewis Aguirre MD at 15:30 EDT Tel [phone], Service support ,
--- NOTE | 2018-02-07 15:36 | PN_ITS ---
Patient Problems: Active and Suspected Problems (Last Reviewed 02/04/18 @ 20:20 by Wyatt Lora MD) Heart failure (Acute) Subjective: Patient is a 67-year-old female with a history of morbid obesity with BMI of 63, chronic diastolic CHF/HFpEF, hypertension, GERD, history of atrial flutter on chronic anticoagulation, CECILIA and COPD on supplemental O2 of 1-2 L daily who was admitted for acute on chronic respiratory failure. Patient was noted to be in decompensated heart failure. Patient's chest x-ray revealed bilateral large effusions, likely consistent with volume overload. There was also suspicion for infiltrate consistent with infectious process in the left upper lobe and was empirically placed on antibiotics. Patient doing well, took her usual dose of Ativan earlier and was placed on BiPAP, stating that she was feeling drowsy. Patient denies any current shortness of breath and states that she feels significantly better today than she has yesterday. Patient is status post thoracentesis with only 150 cc of bloody fluid out. States her cough has improved significantly and that she has had significant decrease in swelling of her lower extremities bilaterally. Patient wants to come off of supplemental oxygen and thinks that her breathing is doing much better today. Has been religiously utilizing her bedside incentive spirometer, stating that her volumes have improved overnight. 2D echocardiogram on 11/18/17: Mildly dilated left ventricle. Left ventricular systolic function is normal. The estimated ejection fraction is 55 %. Mild concentric left ventricular hypertrophy. Moderately dilated right ventricle. Mild to moderate global right ventricular systolic dysfunction. The left atrium is mildly enlarged. The right atrium is mildly enlarged. There is mild mitral annular calcification. Extension of the mitral annular calcification onto the posterior mitral valve le aflet. Trivial mitral valve insufficiency. Trivial tricuspid valve insufficiency. Trivial pulmonic valve insufficiency. Right ventricular systolic pressure estimated to be 35 mmHg. Transmitral diastolic flow velocities suggest diastolic dysfunction (pseudonormal pattern). Objective: General: Alert, Oriented x3, Cooperative HEENT: Normocephalic Neck: Supple, No JVD Lungs: Clear to auscultation, No rales - No noted rales but with decreased breath sounds, Diminished, with upper airway congestion/rhonchi Cardiovascular: Regular rate, Normal S1, Normal S2 Abdomen: Bowel Sounds Present, Soft, Non Tender Extremities: Capillary Refill Less than 3 Seconds, Edema - With baseline lower extremity edema and wraps in place Skin: No rashes, No breakdown Musculoskeletal: No Tenderness to Palpation of Joints or Extremities Neurological: Cranial nerves II-XII grossly intact Psych/Mental Status: Normal Affect, Appropriate Vitals/I&O's: Vital Signs Temp Pulse Resp BP Pulse Ox 98.2 F 96 18 128/68 H 95 02/07/18 13:39 02/07/18 13:39 02/07/18 13:39 02/07/18 13:39 02/07/18 13:39 Oxygen Flow Rate (L/min) 4 Oxygen Delivery Method Nasal Cannula Weight: 158.2 kg Body Mass Index (BMI) 64.3 Intake and Output for Last 24 Hours 02/05/18 02/06/18 02/07/18 23:59 23:59 23:59 Intake Total 980 / 980 1160 / 1160 840 / 840 Output Total 3050 / 3050 4550 / 4550 4625 / 4625 Balance -2070 / -2070 -3390 / -3390 -3785 / -3785 Laboratory Results 02/07/18 05:55: WBC 9.3, RBC 4.42, Hgb 12.6, Hct 41.4, MCV 93.7, MCH 28.5, MCHC 30.4 L, RDW 14.2, RDW Differential 46.8 H, Plt Count 193, MPV 9.9, Immature Gran % (Auto) 0.200, Neut % (Auto) 65.9, Lymph % (Auto) 20.9, [place] % (Auto) 12.1 H, Eos % (Auto) 0.9, Baso % (Auto) 0.0, Absolute Neuts (auto) 6.2, Absolute Lymphs (auto) 1.95, Total Counted Not Reportable 02/07/18 05:55: Sodium 143, Potassium 3.2 L, Chloride 100, Carbon Dioxide 37.0 H , Anion Gap 6, BUN 25 H, Creatinine 1.11 H, Estim Creat Clear Calc 39.57, Est GFR (MDRD) Af Amer 63, Est GFR (MDRD) Non-Af 52 L, BUN/Creatinine Ratio 22.5 H, Glucose 79, Calcium 8.3 L 02/07/18 05:55: Lactate Dehydrogenase 204 02/07/18 05:55: Total Protein 6.3 L, Globulin 3.3, Albumin/Globulin Ratio 0.9 02/07/18 10:45: PT 13.5, INR 1.0, APTT 25.1 02/07/18 : Fluid Glucose Pending, Fluid Total Protein Pending, Fluid LDH Pending 02/07/18 : Fluid Source Pending, Fluid Color Pending, Fluid Appearance Pending, Fluid WBC Pending, Fluid RBC Pending, Fluid Tot Cell Count Pending, Fl Pathologist Comment Pending, Fluid Comment 2 Pending Current Medications Acetaminophen (Tylenol) 650 mg PO Q6H PRN PRN PRN Reason: Mild Pain (scale 0-3)/T>100.7 Albuterol Sulfate (Ventolin Aerosols) 2.5 mg INHALATION Q2H PRN PRN PRN Reason: SHORTNESS OF BREATH Albuterol/Ipratropium (Duoneb) 3 ml INHALATION Q4H.RT [facility] Last Admin: 02/07/18 11:14 Dose: 3 ml Bisacodyl (Dulcolax) 5 mg PO DAILY PRN PRN PRN Reason: Constipation Last Admin: 02/06/18 17:38 Dose: 5 mg Calcium/Vitamin D (Os-Jose 500mg + D) 1 tablet PO DAILY [facility] Last Admin: 02/07/18 09:44 Dose: 1 tablet Diltiazem HCl (Cardizem) 60 mg PO TID [facility] Last Admin: 02/07/18 06:46 Dose: 60 mg Enoxaparin Sodium (Lovenox) 40 mg SC DAILY [facility] Furosemide (Lasix) 40 mg IV Q12 [facility] Guaifenesin (Mucinex) 600 mg PO BID [facility] Last Admin: 02/07/18 09:44 Dose: 600 mg Levofloxacin (Levaquin Tablet) 750 mg PO DAILY@0600 [facility] Last Admin: 02/07/18 06:46 Dose: 750 mg Lorazepam (Ativan) 0.5 mg PO Q6H PRN PRN PRN Reason: ANXIETY Last Admin: 02/07/18 11:54 Dose: 0.5 mg Magnesium Hydroxide (Milk Of Magnesia) 30 ml PO DAILY PRN PRN Reason: Constipation Metoprolol Tartrate (Lopressor (Beta Wallace)) 50 mg PO BID [facility] Last Admin: 02/07/18 10:32 Dose: Not Given Nystatin (Mycostatin Powder) 1 applic TOPICAL BID [facility]; Protocol Last Admin: 02/07/18 09:44 Dose: 1 applic Ondansetron HCl (Zofran) 4 mg IV Q8H PRN PRN PRN Reason: Nausea Pantoprazole Sodium (Protonix) 20 mg PO DAILY [facility] Last Admin: 02/07/18 09:44 Dose: 20 mg Sodium Chloride () 5 - 30 ml IV UD PRN PRN Reason: SALINE FLUSH Last Admin: 02/06/18 21:29 Dose: 10 ml Zolpidem Tartrate (Ambien (Generic)) 5 mg PO QHS PRN PRN PRN Reason: INSOMNIA Medical Necessity - Tobacco Use Smoking Status: Former smoker Assessment/Plan All Active Problems (Last Reviewed 02/04/18 @ 20:20 by Wyatt Lora MD) Heart failure (Acute) CECILIA (obstructive sleep apnea) (Acute) Shortness of breath (Acute) Atrial flutter with rapid ventricular response (Acute) Healthcare associated bacterial pneumonia (Acute) Acute kidney injury (Acute) Chest pain (Acute) Acute respiratory failure (Acute) Healthcare-associated pneumonia (Acute) Atrial flutter (Acute) Patient is a 67-year-old female with a history of morbid obesity with BMI of 63, chronic diastolic CHF/HFpEF, hypertension, GERD, history of atrial flutter on chronic anticoagulation, CECILIA and COPD on supplemental O2 of 1-2 L daily who was admitted for acute on chronic respiratory failure. Patient was noted to be in decompensated heart failure. 1. Acute on chronic hypoxemic respiratory failure, resolved * Related to decompensated heart failure +/- PNA. 2. Acute on chronic diastolic CHF/HFpEF * Responding appropriately to IV Lasix/diuresis. With urine output of over 10L and weight loss of 2.5 kg since admission. Will decrease IV Lasix down to 40 mg twice daily and eventually transition to p.o. Lasix upon discharge (prevent over diuresis/contraction alkalosis). Initially with large bilateral pleural effusions on chest x-ray, patient is status post thoracentesis this morning with only 150 cc of bloody fluid out (likely associated with Xarelto use). Await pleural fluid studies (transudative versus exudative). 3. Suspected PNA * Chest x-ray with new upper lobe infiltrate, suspicious for pneumonia. Last hospitalization was in November, which may qualify for HCAP, however patient appears to be responding appropriately to oral Levaquin. Continue with current antibiotic. Blood culture and sputum culture pending. 4. Chronic atrial flutter status post cardioversion, on anticoagulation * Patient currently in sinus rhythm. Rate controlled, continue with Xarelto. 5. CECILIA * Continue with BiPAP nightly. Patient utilizes CPAP at night. 6. COPD, on supplemental O2 of 2 L daily * Not in acute exacerbation but will require continued scheduled bronchodilators. Wean down supplemental O2 via nasal cannula back down to her baseline of 2 L daily. 7. Morbid obesity, BMI of 63 * Aware. 8. UTI * On Levaquin 9. Hypokalemia * Likely related to Lasix use. Replace with p.o. potassium and magnesium. Check electrolytes in the morning. 9. DVT prophylaxis * On Xarelto * Await improvement in respiratory status back to her baseline. Continue with current IV diuresis (at lower dose) and continue with Levaquin. Anticipate possible discharge home in 1-2 days pending clinical improvement. Code Visit Inpatient E&M: 45358 [facility] Hosp L3
[2018-02-07 16:16] LABS: Body Fluid Mononuclear WBC # 0.809 10^3/uL; Body Fluid Polynuclear WBC # 0.912 10^3/uL; Body Fluid Total Cells Counted 1.847 10^3/ul (0.000-0.000); White Blood Count/Body Fluid 1.721 10^3/uL
[2018-02-07 16:33] LABS: Glucose, Body Fluid 77 mg/dL (40-70); LDH,Body Fluid 213 Units/l (Not Establ.); Protein, Body Fluid 3.3 g/dL (Not Establ.)
[2018-02-07] MEDS: Magnesium Hydroxide 30 ML UDC PO (16:56)
[2018-02-07 17:41] LABS: Auto B Fluid Analyzer BKGD Ct COUNTS W/IN LIMITS (W/IN LIMITS); Source- Body Fluid THORACENTESIS
[2018-02-07 17:42] LABS: Appearance/Body Fluid TURBID; Color/Body Fluid RED; Neutrophil (Segs) 31 %
[2018-02-07 17:43] LABS: Body Fluid QC Type(s) BF1Q; Lymphocytes 27 %; Macrophages 16 %; Mesothelial Cells 23 %; Monocytes 3 %
[2018-02-07] MEDS: Rivaroxaban 20 MG Tablet PO (17:47)
[2018-02-07] MEDS: Furosemide 40 MG/4 ML Vial IV (21:25)
[2018-02-08] VITALS (21 sets, daily range): BP systolic 112–153; BP diastolic 64–91; PULSE 81–124; RESP 12–24; TEMP 36.1–36.6; O2SAT 92–99
[2018-02-08] MEDS: dilTIAZem 60 MG Tablet PO ×3 (06:22→22:13)
[2018-02-08] MEDS: levoFLOXacin 750 MG Tablet PO (06:22)
[2018-02-08 06:47] LABS: Absolute Lymphocyte Count 1.26 X10^3/ul (0.83-4.51); Eosinophil# 0.12 X10^3/uL; Eosinophils% 1.9 % (0-5); Hematocrit 39.7 % (37-47); Hemoglobin 11.8 g/dl (12.0-15.0); Lymphocyte # 1.26 X10^3/ul (4.0); Lymphocyte % 19.8 % (19-41); Mean Corp Hgb Conc 29.7 g/gl (32-36); Mean Corpuscular Hgb 28.1 pg (27.0-32.0); Mean Corpuscular Volume 94.5 fL (81-99); Mean Platelet Vol. 9.8 fl (6.2-12.0); Monocyte# 0.95 X10^3/uL; Monocyte% 14.9 % (0-10); Neutrophil # 4.02 X10^3/uL (2.7-7.7); Neutrophil % 63.2 % (47-70); Platelet Count 164 K/mm3 (150-450); RBC Distribution Width CV 14.3 % (11.6-14.6); RBC Distribution Width SD 49.3 fl (35.1-43.9); White Blood Count 6.4 K/mm3 (4.4-11.0)
[2018-02-08] MEDS: Ipratropium/Albuterol Sulfate 3 ML AMPUL.NEB INHALATION ×5 (06:57→23:36)
[2018-02-08 07:00] LABS: POSITIVE COUNT NO; POSITIVE DIFFERENTIAL NO; POSITIVE MORPHOLOGY NO
[2018-02-08 07:28] LABS: ALB/GLOB Ratio 0.9 RATIO (0.9-2.4); AST(SGOT) 21 U/L (15-37); Alanine Aminotransfer ALT/SGPT 26 U/L (13-56); Albumin, Serum 2.8 g/dL (3.2-5.0); Alkaline Phosphatase 88 U/L (45-117); Anion Gap 8 (5-15); BUN 25 mg/dL (7-18); BUN/Creat Ratio 25.9 RATIO (10-20); Calcium,Total 8.6 mg/dL (8.5-10.1); Chloride 101 mmol/L (98-107); Creatinine, Serum 0.96 mg/dL (0.55-1.02); EST Glomerular Filtration Rate 61 mL/min (>60); Est Glom Filt Rate - Afr Amer 74 mL/min (>60); Estimated Creatinine Clearance 45.75 ml/min; Globulin 3.2 g/dL (2.2-4.2); Glucose 95 mg/dL (74-106); Magnesium 2.3 mg/dL (1.6-2.6); Potassium 3.3 mmol/L (3.5-5.1); Sodium Level 145 mmol/L (136-145)
--- NOTE | 2018-02-08 08:32 | PCM.PROGNOTE ---
Patient Problems: Active and Suspected Problems (Last Reviewed 02/04/18 @ 20:20 by Wyatt Lora MD) Heart failure (Acute) Subjective: The patient was seen and examined at the bedside this morning. Events from the last 24 hours have been reviewed. The patient is currently afebrile, hemodynamically stable and maintaining appropriate oxygen saturations on 4 L/min via nasal cannula. The patient did undergo successful ultrasound-guided thoracentesis of her left hemithorax with 150 mL's of bloody fluid removed. Postprocedure plain film chest x-ray was reviewed and revealed no evidence of a pneumothorax. Objective: The patient's most recent lab work, culture data and imaging studies have all been personally reviewed. Her last pulmonary function testing completed in December 2017 revealed evidence of an irreversible severe mixed ventilatory defect with a symmetric reduction in diffusing capacity. The patient also has known obstructive sleep apnea based off of her initial diagnostic polysomnogram completed in December 2017, which revealed evidence of mild CECILIA with an apnea hypopnea index of 5.2 events per hour. A follow-up titration study completed in January revealed the need for bilevel therapy with a pressure support of 26/20 centimeters of water with humidification along with a 6 L/min supplemental oxygen bleed in. Surface echocardiogram from November 2017 revealed evidence of a mildly dilated LV with mild concentric LVH and an ejection fraction of 55%. The RV was moderately dilated with mild to moderate global RV systolic dysfunction. Right ventricular systolic pressure was estimated to be 35 mmHg. - Physical Exam General: Alert, Cooperative, No apparent distress HEENT: Atraumatic, PERRLA, Normocephalic Oral: No Gingival or Mucosal Lesions/ Ulcerations Neck: Supple, No Nodes, Trachea Midline Lungs: No rhonchi, No wheeze, No rales, Diminished Cardiovascular: Normal S1, Normal S2, No murmurs, Tachycardic Abdomen: Bowel Sounds Present, Soft, Non Tender, Obese Extremities: No clubbing, No cyanosis, Edema Skin: - - No significant change from previous Musculoskeletal: No Tenderness to Palpation of Joints or Extremities Lymphatic: No Cervical, Supraclavicular, or Inguinal Adenopathy Neurological: Cranial nerves II-XII grossly intact, Neuro grossly intact Psych/Mental Status: Normal Affect, Appropriate Vital Signs Temp Pulse Resp BP Pulse Ox 97.5 F L 81 18 125/66 H 93 02/08/18 06:22 02/08/18 07:05 02/08/18 07:05 02/08/18 06:22 02/08/18 07:36 Oxygen Flow Rate (L/min) 4 Oxygen Delivery Method Nasal Cannula Weight: 344 lb 12.847 oz Body Mass Index (BMI) 28.0 Intake and Output for Last 24 Hours 02/06/18 02/07/18 02/08/18 23:59 23:59 23:59 Intake Total 1160 / 1160 1090 / 1090 240 / 240 Output Total 4550 / 4550 5295 / 5295 2775 / 2775 Balance -3390 / -3390 -4205 / -4205 -2535 / -2535 Laboratory Tests Past 24 Hrs 02/07/18 02/07/18 02/07/18 05:55 05:55 10:45 WBC RBC Hgb Hct MCV MCH MCHC RDW RDW Differential Plt Count MPV Immature Gran % (Auto) Neut % (Auto) Lymph % (Auto) [place] % (Auto) Eos % (Auto) Baso % (Auto) Absolute Neuts (auto) Absolute Lymphs (auto) Total Counted PT 13.5 INR 1.0 APTT 25.1 Sodium Potassium Chloride Carbon Dioxide Anion Gap BUN Creatinine Estim Creat Clear Calc Est GFR (MDRD) Af Amer Est GFR (MDRD) Non-Af BUN/Creatinine Ratio Glucose Calcium Magnesium Total Bilirubin AST ALT Alkaline Phosphatase Lactate Dehydrogenase 204 Total Protein 6.3 L Albumin Globulin 3.3 Albumin/Globulin Ratio 0.9 Fluid Source Fluid Color Fluid Appearance Fluid WBC Fluid RBC Fluid Tot Cell Count Fld Polynuclear WBCs # Fld Polynuclear WBCs % Fluid Mononuclear WBCs Fld Mononuclear WBCs % Fluid Neutrophils Fluid Lymphocytes Fluid Monocytes Fluid Macrophages Fld Mesothelial Cells Fl Pathologist Comment Fluid Glucose Fluid Total Protein Fluid LDH Fluid Comment 2 02/07/18 02/07/18 02/08/18 Unknown Unknown 05:50 WBC 6.4 RBC 4.20 Hgb 11.8 L Hct 39.7 MCV 94.5 MCH 28.1 MCHC 29.7 L RDW 14.3 RDW Differential 49.3 H Plt Count 164 MPV 9.8 Immature Gran % (Auto) 0.200 Neut % (Auto) 63.2 Lymph % (Auto) 19.8 [place] % (Auto) 14.9 H Eos % (Auto) 1.9 Baso % (Auto) 0.0 Absolute Neuts (auto) 4.0 Absolute Lymphs (auto) 1.26 Total Counted Not Reportable PT INR APTT Sodium Potassium Chloride Carbon Dioxide Anion Gap BUN Creatinine Estim Creat Clear Calc Est GFR (MDRD) Af Amer Est GFR (MDRD) Non-Af BUN/Creatinine Ratio Glucose Calcium Magnesium Total Bilirubin AST ALT Alkaline Phosphatase Lactate Dehydrogenase Total Protein Albumin Globulin Albumin/Globulin Ratio Fluid Source THORACENTESIS Fluid Color RED Fluid Appearance TURBID Fluid WBC 1.721 Fluid RBC 2.75181 Fluid Tot Cell Count 1.847 H Fld Polynuclear WBCs # 0.912 Fld Polynuclear WBCs % 53.0 Fluid Mononuclear WBCs 0.809 Fld Mononuclear WBCs % 47.0 Fluid Neutrophils 31 Fluid Lymphocytes 27 Fluid Monocytes 3 Fluid Macrophages 16 Fld Mesothelial Cells 23 Fl Pathologist Comment May follow Fluid Glucose 77 H Fluid Total Protein 3.3 Fluid LDH 213 Fluid Comment 2 SEE COMMENT 02/08/18 05:50 WBC RBC Hgb Hct MCV MCH MCHC RDW RDW Differential Plt Count MPV Immature Gran % (Auto) Neut % (Auto) Lymph % (Auto) [place] % (Auto) Eos % (Auto) Baso % (Auto) Absolute Neuts (auto) Absolute Lymphs (auto) Total Counted PT INR APTT Sodium 145 Potassium 3.3 L Chloride 101 Carbon Dioxide 36.0 H Anion Gap 8 BUN 25 H Creatinine 0.96 Estim Creat Clear Calc 45.75 Est GFR (MDRD) Af Amer 74 Est GFR (MDRD) Non-Af 61 BUN/Creatinine Ratio 25.9 H Glucose 95 Calcium 8.6 Magnesium 2.3 Total Bilirubin 0.60 AST 21 ALT 26 Alkaline Phosphatase 88 Lactate Dehydrogenase Total Protein 6.0 L Albumin 2.8 L Globulin 3.2 Albumin/Globulin Ratio 0.9 Fluid Source Fluid Color Fluid Appearance Fluid WBC Fluid RBC Fluid Tot Cell Count Fld Polynuclear WBCs # Fld Polynuclear WBCs % Fluid Mononuclear WBCs Fld Mononuclear WBCs % Fluid Neutrophils Fluid Lymphocytes Fluid Monocytes Fluid Macrophages Fld Mesothelial Cells Fl Pathologist Comment Fluid Glucose Fluid Total Protein Fluid LDH Fluid Comment 2 Clinical Impression(s) from Imaging Studies Chest X-Ray 02/04/18 18:40 IMPRESSION: Findings compatible with worsening interstitial edema/congestive failure with effusions. Electronically Signed: Edwin Duarte MD at 19:11 EDT , Service support , Chest X-Ray 02/06/18 05:55 IMPRESSION: 1. Large pleural effusions are similar in appearance to the previous study with decreased pulmonary congestion. 2. New left upper lobe airspace disease. Electronically Signed: Deb Arango MD at 5:27 EDT , Service support , Chest X-Ray 02/07/18 05:55 IMPRESSION: Bilateral pleural effusions, large on the left and small on the right. Atelectasis or infiltrate probably in the lower left lung. Electronically Signed: Temo Yarbrough MD at 19:10 EDT , Service support , Thoracentesis Ultrasound 02/07/18 09:23 IMPRESSION: Ultrasound-guided left thoracentesis. Electronically Signed: Lewis Aguirre MD at 15:55 EDT Tel [phone], Service support , Chest X-Ray 02/07/18 15:10 IMPRESSION: Status post left thoracentesis. There is no evidence of pneumothorax. Electronically Signed: Lewis Aguirre MD at 15:30 EDT Tel [phone], Service support , Medical Necessity - Tobacco Use Smoking Status: Former smoker Assessment/Plan All Active Problems (Last Reviewed 02/04/18 @ 20:20 by Wyatt Lora MD) Heart failure (Acute) CECILIA (obstructive sleep apnea) (Acute) Shortness of breath (Acute) Atrial flutter with rapid ventricular response (Acute) Healthcare associated bacterial pneumonia (Acute) Acute kidney injury (Acute) Chest pain (Acute) Acute respiratory failure (Acute) Healthcare-associated pneumonia (Acute) Atrial flutter (Acute) RECOMMENDATIONS: 1. Recommend decreasing current Lasix regimen, as the patient is being over diuresed. 2. Given that the pleural fluid was exudative in nature, recommend adding on pleural fluid cultures and cytology. Orders have been placed. 3. Mobilize patient as tolerated. 4. Place patient on BiPAP 26/20 centimeters of water +6L with naps and nightly. 5. The patient should follow-up as scheduled with Dr. Newman in the pulmonary medicine clinic within 3 months of initiating BIPAP in her home environment. IMPRESSIONS: 1. Acute on chronic hypoxemic respiratory failure/baseline severe mixed ventilatory defect The patient appears to have responded to volume optimization with IV diuretics. She does have evidence of bilateral pleural effusions on chest imaging. The etiology for her dyspnea on presentation is most likely the consequence of decompensated heart failure. The patient has responded to IV diuresis, but is beginning to develop a contraction alkalosis. Her chest imaging continues to demonstrate the presence of bilateral effusions, left greater than right. Therefore, an ultrasound-guided thoracentesis was performed on February 07, which revealed bloody fluid, which was exudative in nature. Given this, pleural fluid cultures and cytology were added. The patient's diuretic regimen ideally needs to be scaled back. Would plan to continue to wean supplemental oxygen as tolerated. Encourage incentive spirometer use and mobilize patient as tolerated. 2. Obstructive sleep apnea The exact reason for the patient's consultation to me is a bit unclear, as I was consulted for CECILIA. She does already have known CECILIA and is already prescribed BiPAP. She [place]le solution [place] [facility] [place]. She would need to follow-up with Dr. Newman as scheduled within 3 months of initiating nocturnal Pap therapy. In the interim, recommend that the patient be placed on bilevel with a pressure support of 26/20 centimeters of water with a 6 L supplemental oxygen bleed in, per the recommendations of her titration polysomnogram. 3. History of atrial flutter with rapid ventricular response/history of failed cardioversions Continue current cardiac medical management and diuretics. May wish to have cardiology evaluate patient. 4. Super morbid obesity/GERD/anxiety Complicates care, management, recovery and prognosis. This note was generated with [employer] software. It may contain incorrect words, spelling, and punctuation that were not noted in checking the note before signing. Code Visit Inpatient E&M: 56187 [facility] Hosp L3
--- NOTE | 2018-02-08 08:43 | PN_ITS ---
Patient Problems: Active and Suspected Problems (Last Reviewed 02/04/18 @ 20:20 by Wyatt Lora MD) Heart failure (Acute) Subjective: The patient was seen and examined at the bedside this morning. Events from the last 24 hours have been reviewed. The patient is currently afebrile, hemodynamically stable and maintaining appropriate oxygen saturations on 4 L/min via nasal cannula. The patient did undergo successful ultrasound-guided thoracentesis of her left hemithorax with 150 mL's of bloody fluid removed. Postprocedure plain film chest x-ray was reviewed and revealed no evidence of a pneumothorax. Objective: The patient's most recent lab work, culture data and imaging studies have all been personally reviewed. Her last pulmonary function testing completed in December 2017 revealed evidence of an irreversible severe mixed ventilatory defect with a symmetric reduction in diffusing capacity. The patient also has known obstructive sleep apnea based off of her initial diagnostic polysomnogram completed in December 2017, which revealed evidence of mild CECILIA with an apnea hypopnea index of 5.2 events per hour. A follow-up titration study completed in January revealed the need for bilevel therapy with a pressure support of 26/20 centimeters of water with humidification along with a 6 L/min supplemental oxygen bleed in. Surface echocardiogram from November 2017 revealed evidence of a mildly dilated LV with mild concentric LVH and an ejection fraction of 55%. The RV was moderately dilated with mild to moderate global RV systolic dysfunction. Right ventricular systolic pressure was estimated to be 35 mmHg. - Physical Exam General: Alert, Cooperative, No apparent distress HEENT: Atraumatic, PERRLA, Normocephalic Oral: No Gingival or Mucosal Lesions/ Ulcerations Neck: Supple, No Nodes, Trachea Midline Lungs: No rhonchi, No wheeze, No rales, Diminished Cardiovascular: Normal S1, Normal S2, No murmurs, Tachycardic Abdomen: Bowel Sounds Present, Soft, Non Tender, Obese Extremities: No clubbing, No cyanosis, Edema Skin: - - No significant change from previous Musculoskeletal: No Tenderness to Palpation of Joints or Extremities Lymphatic: No Cervical, Supraclavicular, or Inguinal Adenopathy Neurological: Cranial nerves II-XII grossly intact, Neuro grossly intact Psych/Mental Status: Normal Affect, Appropriate Vital Signs Temp Pulse Resp BP Pulse Ox 97.5 F L 81 18 125/66 H 93 02/08/18 06:22 02/08/18 07:05 02/08/18 07:05 02/08/18 06:22 02/08/18 07:36 Oxygen Flow Rate (L/min) 4 Oxygen Delivery Method Nasal Cannula Weight: 344 lb 12.847 oz Body Mass Index (BMI) 28.0 Intake and Output for Last 24 Hours 02/06/18 02/07/18 02/08/18 23:59 23:59 23:59 Intake Total 1160 / 1160 1090 / 1090 240 / 240 Output Total 4550 / 4550 5295 / 5295 2775 / 2775 Balance -3390 / -3390 -4205 / -4205 -2535 / -2535 Laboratory Tests Past 24 Hrs 02/07/18 02/07/18 02/07/18 05:55 05:55 10:45 WBC RBC Hgb Hct MCV MCH MCHC RDW RDW Differential Plt Count MPV Immature Gran % (Auto) Neut % (Auto) Lymph % (Auto) [place] % (Auto) Eos % (Auto) Baso % (Auto) Absolute Neuts (auto) Absolute Lymphs (auto) Total Counted PT 13.5 INR 1.0 APTT 25.1 Sodium Potassium Chloride Carbon Dioxide Anion Gap BUN Creatinine Estim Creat Clear Calc Est GFR (MDRD) Af Amer Est GFR (MDRD) Non-Af BUN/Creatinine Ratio Glucose Calcium Magnesium Total Bilirubin AST ALT Alkaline Phosphatase Lactate Dehydrogenase 204 Total Protein 6.3 L Albumin Globulin 3.3 Albumin/Globulin Ratio 0.9 Fluid Source Fluid Color Fluid Appearance Fluid WBC Fluid RBC Fluid Tot Cell Count Fld Polynuclear WBCs # Fld Polynuclear WBCs % Fluid Mononuclear WBCs Fld Mononuclear WBCs % Fluid Neutrophils Fluid Lymphocytes Fluid Monocytes Fluid Macrophages Fld Mesothelial Cells Fl Pathologist Comment Fluid Glucose Fluid Total Protein Fluid LDH Fluid Comment 2 02/07/18 02/07/18 02/08/18 Unknown Unknown 05:50 WBC 6.4 RBC 4.20 Hgb 11.8 L Hct 39.7 MCV 94.5 MCH 28.1 MCHC 29.7 L RDW 14.3 RDW Differential 49.3 H Plt Count 164 MPV 9.8 Immature Gran % (Auto) 0.200 Neut % (Auto) 63.2 Lymph % (Auto) 19.8 [place] % (Auto) 14.9 H Eos % (Auto) 1.9 Baso % (Auto) 0.0 Absolute Neuts (auto) 4.0 Absolute Lymphs (auto) 1.26 Total Counted Not Reportable PT INR APTT Sodium Potassium Chloride Carbon Dioxide Anion Gap BUN Creatinine Estim Creat Clear Calc Est GFR (MDRD) Af Amer Est GFR (MDRD) Non-Af BUN/Creatinine Ratio Glucose Calcium Magnesium Total Bilirubin AST ALT Alkaline Phosphatase Lactate Dehydrogenase Total Protein Albumin Globulin Albumin/Globulin Ratio Fluid Source THORACENTESIS Fluid Color RED Fluid Appearance TURBID Fluid WBC 1.721 Fluid RBC 2.27163 Fluid Tot Cell Count 1.847 H Fld Polynuclear WBCs # 0.912 Fld Polynuclear WBCs % 53.0 Fluid Mononuclear WBCs 0.809 Fld Mononuclear WBCs % 47.0 Fluid Neutrophils 31 Fluid Lymphocytes 27 Fluid Monocytes 3 Fluid Macrophages 16 Fld Mesothelial Cells 23 Fl Pathologist Comment May follow Fluid Glucose 77 H Fluid Total Protein 3.3 Fluid LDH 213 Fluid Comment 2 SEE COMMENT 02/08/18 05:50 WBC RBC Hgb Hct MCV MCH MCHC RDW RDW Differential Plt Count MPV Immature Gran % (Auto) Neut % (Auto) Lymph % (Auto) [place] % (Auto) Eos % (Auto) Baso % (Auto) Absolute Neuts (auto) Absolute Lymphs (auto) Total Counted PT INR APTT Sodium 145 Potassium 3.3 L Chloride 101 Carbon Dioxide 36.0 H Anion Gap 8 BUN 25 H Creatinine 0.96 Estim Creat Clear Calc 45.75 Est GFR (MDRD) Af Amer 74 Est GFR (MDRD) Non-Af 61 BUN/Creatinine Ratio 25.9 H Glucose 95 Calcium 8.6 Magnesium 2.3 Total Bilirubin 0.60 AST 21 ALT 26 Alkaline Phosphatase 88 Lactate Dehydrogenase Total Protein 6.0 L Albumin 2.8 L Globulin 3.2 Albumin/Globulin Ratio 0.9 Fluid Source Fluid Color Fluid Appearance Fluid WBC Fluid RBC Fluid Tot Cell Count Fld Polynuclear WBCs # Fld Polynuclear WBCs % Fluid Mononuclear WBCs Fld Mononuclear WBCs % Fluid Neutrophils Fluid Lymphocytes Fluid Monocytes Fluid Macrophages Fld Mesothelial Cells Fl Pathologist Comment Fluid Glucose Fluid Total Protein Fluid LDH Fluid Comment 2 Clinical Impression(s) from Imaging Studies Chest X-Ray 02/04/18 18:40 IMPRESSION: Findings compatible with worsening interstitial edema/congestive failure with effusions. Electronically Signed: Edwin Duarte MD at 19:11 EDT , Service support , Chest X-Ray 02/06/18 05:55 IMPRESSION: 1. Large pleural effusions are similar in appearance to the previous study with decreased pulmonary congestion. 2. New left upper lobe airspace disease. Electronically Signed: Deb Arango MD at 5:27 EDT , Service support , Chest X-Ray 02/07/18 05:55 IMPRESSION: Bilateral pleural effusions, large on the left and small on the right. Atelectasis or infiltrate probably in the lower left lung. Electronically Signed: Temo Yarbrough MD at 19:10 EDT , Service support , Thoracentesis Ultrasound 02/07/18 09:23 IMPRESSION: Ultrasound-guided left thoracentesis. Electronically Signed: Lewis Augirre MD at 15:55 EDT Tel [phone], Service support , Chest X-Ray 02/07/18 15:10 IMPRESSION: Status post left thoracentesis. There is no evidence of pneumothorax. Electronically Signed: Lewis Aguirre MD at 15:30 EDT Tel [phone], Service support , Medical Necessity - Tobacco Use Smoking Status: Former smoker Assessment/Plan All Active Problems (Last Reviewed 02/04/18 @ 20:20 by Wyatt Lora MD) Heart failure (Acute) CECILIA (obstructive sleep apnea) (Acute) Shortness of breath (Acute) Atrial flutter with rapid ventricular response (Acute) Healthcare associated bacterial pneumonia (Acute) Acute kidney injury (Acute) Chest pain (Acute) Acute respiratory failure (Acute) Healthcare-associated pneumonia (Acute) Atrial flutter (Acute) RECOMMENDATIONS: 1. Recommend decreasing current Lasix regimen, as the patient is being over diuresed. 2. Given that the pleural fluid was exudative in nature, recommend adding on pleural fluid cultures and cytology. Orders have been placed. 3. Mobilize patient as tolerated. 4. Place patient on BiPAP 26/20 centimeters of water +6L with naps and nightly. 5. The patient should follow-up as scheduled with Dr. Newman in the pulmonary medicine clinic within 3 months of initiating BIPAP in her home environment. IMPRESSIONS: 1. Acute on chronic hypoxemic respiratory failure/baseline severe mixed ventilatory defect The patient appears to have responded to volume optimization with IV diuretics. She does have evidence of bilateral pleural effusions on chest imaging. The etiology for her dyspnea on presentation is most likely the consequence of decompensated heart failure. The patient has responded to IV diuresis, but is beginning to develop a contraction alkalosis. Her chest imaging continues to demonstrate the presence of bilateral effusions, left greater than right. Therefore, an ultrasound-guided thoracentesis was performed on February 07, which revealed bloody fluid, which was exudative in nature. Given this, pleural fluid cultures and cytology were added. The patient's diuretic regimen ideally needs to be scaled back. Would plan to continue to wean supplemental oxygen as tolerated. Encourage incentive spirometer use and mobilize patient as tolerated. 2. Obstructive sleep apnea The exact reason for the patient's consultation to me is a bit unclear, as I was consulted for CECILIA. She does already have known CECILIA and is already prescribed BiPAP. She is [place] [facility] [place] the hospital. She would need to follow-up with Dr. Newman as scheduled within 3 months of initiating nocturnal Pap therapy. In the interim, recommend that the patient be placed on bilevel with a pressure support of 26/20 centimeters of water with a 6 L supplemental oxygen bleed in, per the recommendations of her titration polysomnogram. 3. History of atrial flutter with rapid ventricular response/history of failed cardioversions Continue current cardiac medical management and diuretics. May wish to have cardiology evaluate patient. 4. Super morbid obesity/GERD/anxiety Complicates care, management, recovery and prognosis. This note was generated with [employer]ation software. It may contain incorrect words, spelling, and punctuation that were not noted in checking the note before signing. Code Visit Inpatient E&M: [id number] [facility] Hosp L3
[2018-02-08] MEDS: Furosemide 40 MG/4 ML Vial IV ×2 (10:53→22:14)
[2018-02-08] MEDS: Nystatin Powder 15gm Bottle 1 APPLIC TOPICAL ×2 (10:53→22:14)
[2018-02-08] MEDS: Metoprolol Tartrate 50 MG Tablet PO ×2 (10:53→22:14)
[2018-02-08] MEDS: Pantoprazole Sodium 20 MG Tablet PO (10:53)
[2018-02-08] MEDS: guaiFENesin 600 MG Tablet PO ×2 (10:53→22:14)
[2018-02-08] MEDS: Calcium Carb/Vitamin D 1 TABLET Tablet PO (10:53)
--- NOTE | 2018-02-08 10:54 | NURSING ---
All 1000 meds given at this time. Previously scanned in [facility] and given to pt but [facility] froze.
[2018-02-08 13:24] LABS: Pathologist Comment/Body Fluid Reviewed
--- NOTE | 2018-02-08 16:54 | PCM.PN.HOSP ---
Patient Problems: Active and Suspected Problems (Last Reviewed 02/04/18 @ 20:20 by Wyatt Lora MD) Heart failure (Acute) Subjective: Patient is a 67-year-old female with a history of morbid obesity with BMI of 63, chronic diastolic CHF/HFpEF, hypertension, GERD, history of atrial flutter on chronic anticoagulation, CECILIA and COPD on supplemental O2 of 1-2 L daily who was admitted for acute on chronic respiratory failure. Patient was noted to be in decompensated heart failure. Patient's chest x-ray revealed bilateral large effusions, likely consistent with volume overload. There was also suspicion for infiltrate consistent with infectious process in the left upper lobe and was empirically placed on antibiotics. Patient had a thoracentesis with only 150 of bloody fluid out, will try to diurese the patient aggressively with Lasix albumin and Zaroxolyn have told patient the plan is agreeable. Patient had a bowel movement today, still very short of breath chronically on 2 L of oxygen. Patient otherwise has no new complaints no fevers chills nausea vomiting. Vitals/I&O's: Vital Signs Temp Pulse Resp BP Pulse Ox 98 F 121 H 16 113/74 97 02/08/18 14:13 02/08/18 15:23 02/08/18 15:23 02/08/18 14:13 02/08/18 14:13 Oxygen Flow Rate (L/min) 3 Oxygen Delivery Method Nasal Cannula Weight: 156.4 kg Body Mass Index (BMI) 28.0 Intake and Output for Last 24 Hours 02/06/18 02/07/18 02/08/18 23:59 23:59 23:59 Intake Total 1160 / 1160 1090 / 1090 720 / 720 Output Total 4550 / 4550 5295 / 5295 3575 / 3575 Balance -3390 / -3390 -4205 / -4205 -2855 / -2855 General: Alert, Oriented x3, Cooperative HEENT: Atraumatic, PERRLA, EOMI Oral: Moist Mucosa, No Gingival or Mucosal Lesions/ Ulcerations Neck: Supple, No JVD, Trachea Midline Lungs: No rhonchi, No wheeze, Diminished, Rales Cardiovascular: Normal S1, Normal S2, Irregular Rate, Murmur Abdomen: Soft, Non Tender, Non-Distended Extremities: Edema, Tenderness Skin: No rashes Musculoskeletal: No Tenderness to Palpation of Joints or Extremities, No Muscle Wasting Lymphatic: No Cervical, Supraclavicular, or Inguinal Adenopathy Neurological: Cranial nerves II-XII grossly intact, Neuro grossly intact Psych/Mental Status: Normal Affect, Appropriate, Agitated, Alert and oriented to time, place, person, mood and affect Microbiology Past 72 Hours 02/07/18 15:24 Fluid - Pleural (Lung) Anaerobic Culture - Preliminary 02/07/18 11:58 Sputum, Expectorated/Coughed Gram Stain - Final 02/07/18 11:58 Sputum, Expectorated/Coughed Respiratory Culture - Preliminary Appears to be normal respiratory lauren. Further studies to follow. Laboratory Results 02/07/18 : Fluid Source THORACENTESIS, Fluid Color RED, Fluid Appearance TURBID, Fluid Neutrophils 31, Fluid Lymphocytes 27, Fluid Monocytes 3, Fluid Macrophages 16, Fld Mesothelial Cells 23, Fl Pathologist Comment Reviewed, Fluid Comment 2 SEE COMMENT 02/08/18 05:50: WBC 6.4, RBC 4.20, Hgb 11.8 L, Hct 39.7, MCV 94.5, MCH 28.1, MCHC 29.7 L, RDW 14.3, RDW Differential 49.3 H, Plt Count 164, MPV 9.8, Immature Gran % (Auto) 0.200, Neut % (Auto) 63.2, Lymph % (Auto) 19.8, [place] % (Auto) 14.9 H, Eos % (Auto) 1.9, Baso % (Auto) 0.0, Absolute Neuts (auto) 4.0, Absolute Lymphs (auto) 1.26, Total Counted Not Reportable 02/08/18 05:50: Sodium 145, Potassium 3.3 L, Chloride 101, Carbon Dioxide 36.0 H, Anion Gap 8, BUN 25 H, Creatinine 0.96, Estim Creat Clear Calc 45.75, Est GFR (MDRD) Af Amer 74, Est GFR (MDRD) Non-Af 61, BUN/Creatinine Ratio 25.9 H, Glucose 95, Calcium 8.6, Magnesium 2.3, Total Bilirubin 0.60, AST 21, ALT 26, Alkaline Phosphatase 88, Total Protein 6.0 L, Albumin 2.8 L, Globulin 3.2, Albumin/Globulin Ratio 0.9 Current Medications Acetaminophen (Tylenol) 650 mg PO Q6H PRN PRN PRN Reason: Mild Pain (scale 0-3)/T>100.7 Albuterol Sulfate (Ventolin Aerosols) 2.5 mg INHALATION Q2H PRN PRN PRN Reason: SHORTNESS OF BREATH Albuterol/Ipratropium (Duoneb) 3 ml INHALATION Q4H.RT LAQUITA Last Admin: 02/08/18 15:26 Dose: 3 ml Bisacodyl (Dulcolax) 5 mg PO DAILY PRN PRN PRN Reason: Constipation Last Admin: 02/06/18 17:38 Dose: 5 mg Calamine/Phenol (Calmoseptine Ointment) 1 applic TOPICAL 4X/DAY PRN; Protocol PRN Reason: skin irritation Calcium/Vitamin D (Os-Jose 500mg + D) 1 tablet PO DAILY LAQUITA Last Admin: 02/08/18 10:53 Dose: 1 tablet Diltiazem HCl (Cardizem) 60 mg PO TID LAQUITA Last Admin: 02/08/18 14:16 Dose: 60 mg Furosemide (Lasix) 40 mg IV Q12 LAQUITA Last Admin: 02/08/18 10:53 Dose: 40 mg Guaifenesin (Mucinex) 600 mg PO BID LAQUITA Last Admin: 02/08/18 10:53 Dose: 600 mg Albumin Human () 25 gm in 100 mls @ 60 mls/hr IV Q8H LAQUITA Stop: 02/09/18 10:24 Levofloxacin (Levaquin Tablet) 750 mg PO DAILY@0600 LAQUITA Last Admin: 02/08/18 06:22 Dose: 750 mg Lorazepam (Ativan) 0.5 mg PO Q6H PRN PRN PRN Reason: ANXIETY Last Admin: 02/07/18 11:54 Dose: 0.5 mg Magnesium Hydroxide (Milk Of Magnesia) 30 ml PO DAILY PRN PRN Reason: Constipation Last Admin: 02/07/18 16:56 Dose: 30 ml Metolazone (Zaroxolyn) 10 mg PO X1 ONE Stop: 02/08/18 16:53 Metoprolol Tartrate (Lopressor (Beta Wallace)) 50 mg PO BID LAQUITA Last Admin: 02/08/18 10:53 Dose: 50 mg Nystatin (Mycostatin Powder) 1 applic TOPICAL BID LAQUITA; Protocol Last Admin: 02/08/18 10:53 Dose: 1 applic Ondansetron HCl (Zofran) 4 mg IV Q8H PRN PRN PRN Reason: Nausea Pantoprazole Sodium (Protonix) 20 mg PO DAILY [facility] Last Admin: 02/08/18 10:53 Dose: 20 mg Potassium Chloride (K-Dur) 40 meq PO X1 ONE Stop: 02/08/18 22:01 Rivaroxaban (Xarelto) 20 mg PO DAILY@1730 [facility] Last Admin: 02/07/18 17:47 Dose: 20 mg Sodium Chloride () 5 - 30 ml IV UD PRN PRN Reason: SALINE FLUSH Last Admin: 02/06/18 21:29 Dose: 10 ml Zolpidem Tartrate (Ambien (Generic)) 5 mg PO QHS PRN PRN PRN Reason: INSOMNIA Medical Necessity - Tobacco Use Smoking Status: Former smoker Assessment/Plan All Active Problems (Last Reviewed 02/04/18 @ 20:20 by Wyatt Lora MD) Heart failure (Acute) CECILIA (obstructive sleep apnea) (Acute) Shortness of breath (Acute) Atrial flutter with rapid ventricular response (Acute) Healthcare associated bacterial pneumonia (Acute) Acute kidney injury (Acute) Chest pain (Acute) Acute respiratory failure (Acute) Healthcare-associated pneumonia (Acute) Atrial flutter (Acute) Patient is a 67-year-old female with a history of morbid obesity with BMI of 63, chronic diastolic CHF/HFpEF, hypertension, GERD, history of atrial flutter on chronic anticoagulation, CECILIA and COPD on supplemental O2 of 1-2 L daily who was admitted for acute on chronic respiratory failure. Patient was noted to be in decompensated heart failure. 1. Acute on chronic hypoxemic respiratory failure, resolved Related to decompensated heart failure +/- PNA. Continue Levaquin recheck chest x-ray in the morning 2. Acute on chronic diastolic CHF/HFpEF To aggressively diurese patient with IV Lasix, Zaroxolyn, and albumin. And will correct hypokalemia secondary to Lasix with oral as patient cannot tolerate IV earlier today. Patient already had thoracentesis. However with bloody exudate will be difficult to determine if his transudate in versus exudate and also because patient has been on Lasix. We will repeat chest x-ray and continue BiPAP as this will help remove fluid. 3. Suspected PNA Chest x-ray with new upper lobe infiltrate, suspicious for pneumonia. Last hospitalization was in November, which may qualify for HCAP, however patient appears to be responding appropriately to oral Levaquin. Continue with current antibiotic. Blood culture pending and sputum showing normal lauren. 4. Chronic atrial flutter status post cardioversion, on anticoagulation Patient currently in sinus rhythm. Rate controlled, continue with Xarelto. 5. CECILIA Continue with BiPAP nightly. Patient utilizes CPAP at night. 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 COPD, on supplemental O2 of 2 L daily Not in acute exacerbation but will require continued scheduled bronchodilators. Wean down supplemental O2 via nasal cannula back down to her baseline of 2 L daily. 7. Morbid obesity, BMI of 63 Aware. 8. UTI On Levaquin 9. Hypokalemia Likely related to Lasix use. Replace with p.o. potassium and magnesium. Check electrolytes in the morning. 9. DVT prophylaxis On Xarelto diet 1500 fluid restriction CODE STATUS full Disposition we will try to aggressively diurese and correct hypoalbuminemia with albumin for the next 24 hours she will react possibly DC Monday or Monday depending on response. Chart is dictated with mender hand software. Errors may occur in dictation that may change providers meaning. This note was generated with [employer] dictation software. It may contain incorrect words, spelling, and punctuation that were not noted in checking the note before signing.
--- NOTE | 2018-02-08 16:59 | PN_ITS ---
Patient Problems: Active and Suspected Problems (Last Reviewed 02/04/18 @ 20:20 by Wyatt Lora MD) Heart failure (Acute) Subjective: Patient is a 67-year-old female with a history of morbid obesity with BMI of 63, chronic diastolic CHF/HFpEF, hypertension, GERD, history of atrial flutter on chronic anticoagulation, CECILIA and COPD on supplemental O2 of 1-2 L daily who was admitted for acute on chronic respiratory failure. Patient was noted to be in decompensated heart failure. Patient's chest x-ray revealed bilateral large effusions, likely consistent with volume overload. There was also suspicion for infiltrate consistent with infectious process in the left upper lobe and was empirically placed on antibiotics. Patient had a thoracentesis with only 150 of bloody fluid out, will try to diurese the patient aggressively with Lasix albumin and Zaroxolyn have told patient the plan is agreeable. Patient had a bowel movement today, still very short of breath chronically on 2 L of oxygen. Patient otherwise has no new complaints no fevers chills nausea vomiting. Vitals/I&O's: Vital Signs Temp Pulse Resp BP Pulse Ox 98 F 121 H 16 113/74 97 02/08/18 14:13 02/08/18 15:23 02/08/18 15:23 02/08/18 14:13 02/08/18 14:13 Oxygen Flow Rate (L/min) 3 Oxygen Delivery Method Nasal Cannula Weight: 156.4 kg Body Mass Index (BMI) 28.0 Intake and Output for Last 24 Hours 02/06/18 02/07/18 02/08/18 23:59 23:59 23:59 Intake Total 1160 / 1160 1090 / 1090 720 / 720 Output Total 4550 / 4550 5295 / 5295 3575 / 3575 Balance -3390 / -3390 -4205 / -4205 -2855 / -2855 General: Alert, Oriented x3, Cooperative HEENT: Atraumatic, PERRLA, EOMI Oral: Moist Mucosa, No Gingival or Mucosal Lesions/ Ulcerations Neck: Supple, No JVD, Trachea Midline Lungs: No rhonchi, No wheeze, Diminished, Rales Cardiovascular: Normal S1, Normal S2, Irregular Rate, Murmur Abdomen: Soft, Non Tender, Non-Distended Extremities: Edema, Tenderness Skin: No rashes Musculoskeletal: No Tenderness to Palpation of Joints or Extremities, No Muscle Wasting Lymphatic: No Cervical, Supraclavicular, or Inguinal Adenopathy Neurological: Cranial nerves II-XII grossly intact, Neuro grossly intact Psych/Mental Status: Normal Affect, Appropriate, Agitated, Alert and oriented to time, place, person, mood and affect Microbiology Past 72 Hours 02/07/18 15:24 Fluid - Pleural (Lung) Anaerobic Culture - Preliminary 02/07/18 11:58 Sputum, Expectorated/Coughed Gram Stain - Final 02/07/18 11:58 Sputum, Expectorated/Coughed Respiratory Culture - Preliminary Appears to be normal respiratory lauren. Further studies to follow. Laboratory Results 02/07/18 : Fluid Source THORACENTESIS, Fluid Color RED, Fluid Appearance TURBID, Fluid Neutrophils 31, Fluid Lymphocytes 27, Fluid Monocytes 3, Fluid Macrophages 16, Fld Mesothelial Cells 23, Fl Pathologist Comment Reviewed, Fluid Comment 2 SEE COMMENT 02/08/18 05:50: WBC 6.4, RBC 4.20, Hgb 11.8 L, Hct 39.7, MCV 94.5, MCH 28.1, M CHC 29.7 L, RDW 14.3, RDW Differential 49.3 H, Plt Count 164, MPV 9.8, Immature Gran % (Auto) 0.200, Neut % (Auto) 63.2, Lymph % (Auto) 19.8, [place] % (Auto) 14.9 H, Eos % (Auto) 1.9, Baso % (Auto) 0.0, Absolute Neuts (auto) 4.0, Absolute Lymphs (auto) 1.26, Total Counted Not Reportable 02/08/18 05:50: Sodium 145, Potassium 3.3 L, Chloride 101, Carbon Dioxide 36.0 H , Anion Gap 8, BUN 25 H, Creatinine 0.96, Estim Creat Clear Calc 45.75, Est GFR (MDRD) Af Amer 74, Est GFR (MDRD) Non-Af 61, BUN/Creatinine Ratio 25.9 H, Glucose 95, Calcium 8.6, Magnesium 2.3, Total Bilirubin 0.60, AST 21, ALT 26, Alkaline Phosphatase 88, Total Protein 6.0 L, Albumin 2.8 L, Globulin 3.2, Albumin/Globulin Ratio 0.9 Current Medications Acetaminophen (Tylenol) 650 mg PO Q6H PRN PRN PRN Reason: Mild Pain (scale 0-3)/T>100.7 Albuterol Sulfate (Ventolin Aerosols) 2.5 mg INHALATION Q2H PRN PRN PRN Reason: SHORTNESS OF BREATH Albuterol/Ipratropium (Duoneb) 3 ml INHALATION Q4H.RT [facility] Last Admin: 02/08/18 15:26 Dose: 3 ml Bisacodyl (Dulcolax) 5 mg PO DAILY PRN PRN PRN Reason: Constipation Last Admin: 02/06/18 17:38 Dose: 5 mg Calamine/Phenol (Calmoseptine Ointment) 1 applic TOPICAL 4X/DAY PRN; Protocol PRN Reason: skin irritation Calcium/Vitamin D (Os-Jose 500mg + D) 1 tablet PO DAILY [facility] Last Admin: 02/08/18 10:53 Dose: 1 tablet Diltiazem HCl (Cardizem) 60 mg PO TID [facility] Last Admin: 02/08/18 14:16 Dose: 60 mg Furosemide (Lasix) 40 mg IV Q12 [facility] Last Admin: 02/08/18 10:53 Dose: 40 mg Guaifenesin (Mucinex) 600 mg PO BID [facility] Last Admin: 02/08/18 10:53 Dose: 600 mg Albumin Human () 25 gm in 100 mls @ 60 mls/hr IV Q8H [facility] Stop: 02/09/18 10:24 Levofloxacin (Levaquin Tablet) 750 mg PO DAILY@0600 [facility] Last Admin: 02/08/18 06:22 Dose: 750 mg Lorazepam (Ativan) 0.5 mg PO Q6H PRN PRN PRN Reason: ANXIETY Last Admin: 02/07/18 11:54 Dose: 0.5 mg Magnesium Hydroxide (Milk Of Magnesia) 30 ml PO DAILY PRN PRN Reason: Constipation Last Admin: 02/07/18 16:56 Dose: 30 ml Metolazone (Zaroxolyn) 10 mg PO X1 ONE Stop: 02/08/18 16:53 Metoprolol Tartrate (Lopressor (Beta Wallace)) 50 mg PO BID [facility] Last Admin: 02/08/18 10:53 Dose: 50 mg Nystatin (Mycostatin Powder) 1 applic TOPICAL BID [facility]; Protocol Last Admin: 02/08/18 10:53 Dose: 1 applic Ondansetron HCl (Zofran) 4 mg IV Q8H PRN PRN PRN Reason: Nausea Pantoprazole Sodium (Protonix) 20 mg PO DAILY [facility] Last Admin: 02/08/18 10:53 Dose: 20 mg Potassium Chloride (K-Dur) 40 meq PO X1 ONE Stop: 02/08/18 22:01 Rivaroxaban (Xarelto) 20 mg PO DAILY@1730 [facility] Last Admin: 02/07/18 17:47 Dose: 20 mg Sodium Chloride () 5 - 30 ml IV UD PRN PRN Reason: SALINE FLUSH Last Admin: 02/06/18 21:29 Dose: 10 ml Zolpidem Tartrate (Ambien (Generic)) 5 mg PO QHS PRN PRN PRN Reason: INSOMNIA Medical Necessity - Tobacco Use Smoking Status: Former smoker Assessment/Plan All Active Problems (Last Reviewed 02/04/18 @ 20:20 by Wyatt Lora MD) Heart failure (Acute) CECILIA (obstructive sleep apnea) (Acute) Shortness of breath (Acute) Atrial flutter with rapid ventricular response (Acute) Healthcare associated bacterial pneumonia (Acute) Acute kidney injury (Acute) Chest pain (Acute) Acute respiratory failure (Acute) Healthcare-associated pneumonia (Acute) Atrial flutter (Acute) Patient is a 67-year-old female with a history of morbid obesity with BMI of 63, chronic diastolic CHF/HFpEF, hypertension, GERD, history of atrial flutter on chronic anticoagulation, CECILIA and COPD on supplemental O2 of 1-2 L daily who was admitted for acute on chronic respiratory failure. Patient was noted to be in decompensated heart failure. 1. Acute on chronic hypoxemic respiratory failure, resolved Related to decompensated heart failure +/- PNA. Continue Levaquin recheck chest x-ray in the morning 2. Acute on chronic diastolic CHF/HFpEF To aggressively diurese patient with IV Lasix, Zaroxolyn, and albumin. And will correct hypokalemia secondary to Lasix with oral as patient cannot tolerate IV earlier today. Patient already had thoracentesis. However with bloody exudate will be difficult to determine if his transudate in versus exudate and also because patient has been on Lasix. We will repeat chest x-ray and continue BiPAP as this will help remove fluid. 3. Suspected PNA Chest x-ray with new upper lobe infiltrate, suspicious for pneumonia. Last hospitalization was in November, which may qualify for HCAP, however patient appears to be responding appropriately to oral Levaquin. Continue with current antibiotic. Blood culture pending and sputum showing normal lauren. 4. Chronic atrial flutter status post cardioversion, on anticoagulation Patient currently in sinus rhythm. Rate controlled, continue with Xarelto. 5. CECILIA Continue with BiPAP nightly. Patient utilizes CPAP at night. 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 COPD, on supplemental O2 of 2 L daily Not in acute exacerbation but will require continued scheduled bronchodilators. Wean down supplemental O2 via nasal cannula back down to her baseline of 2 L daily. 7. Morbid obesity, BMI of 63 Aware. 8. UTI On Levaquin 9. Hypokalemia Likely related to Lasix use. Replace with p.o. potassium and magnesium. Check electrolytes in the morning. 9. DVT prophylaxis On Xarelto diet 1500 fluid restriction CODE STATUS full Disposition we will try to aggressively diurese and correct hypoalbuminemia with albumin for the next 24 hours she will react possibly DC Monday or Monday depending on response. Chart is dictated with spinning mule operator software. Errors may occur in dictation that may change providers meaning. This note was generated with [employer] dictation software. It may contain incorrect words, spelling, and punctuation that were not noted in checking the note before signing.
[2018-02-08] MEDS: Rivaroxaban 20 MG Tablet PO (18:11)
[2018-02-08] MEDS: metOLazone 5 MG Tablet 10 MG PO (18:11)
[2018-02-08] MEDS: Albumin Human 25% (100 mL) 25 GM/100 ML BAG IV (18:35)
[2018-02-08] MEDS: 0.9% NaCl Peripheral Flush Adult/Peds IV (22:16)
[2018-02-09] VITALS (34 sets, daily range): BP systolic 89–159; BP diastolic 53–130; PULSE 62–138; RESP 12–30; TEMP 36.6–37.1; O2SAT 94–98
--- NOTE | 2018-02-09 01:20 | CPS ---
pt not tolerating Bipap 16/10. Pt states its too much air. Pt tolerated 14/8 better.
[2018-02-09] MEDS: Albumin Human 25% (100 mL) 25 GM/100 ML BAG IV (02:20)
[2018-02-09] MEDS: Ipratropium/Albuterol Sulfate 3 ML AMPUL.NEB INHALATION ×6 (03:29→22:14)
[2018-02-09] MEDS: 0.9% NaCl Peripheral Flush Adult/Peds IV ×2 (04:18→18:21)
--- NOTE | 2018-02-09 05:30 | RAD_ITS ---
STUDY: X-RAY CHEST REASON FOR EXAM: Female, 67 years old. Cough. TECHNIQUE: Single AP portable view of the chest. COMPARISON: Comparison is made with prior study done February 07, 2018. FINDINGS: EKG electrodes are seen. Since prior study, there is increasing left pleural effusion with vascular congestion and increased markings in the left upper lobe. There is also evidence of a small right pleural effusion with underlying atelectasis and/or infiltration. There is mild cardiac enlargement. Normal mediastinum and angi. Normal visualized pulmonary arteries. There is atherosclerotic tortuosity of the aortic arch and descending thoracic aorta. Normal visualized thoracic spine. Normal visualized ribs, clavicles, and shoulders. There is no demonstrated abnormality of the visualized soft tissue structures of the upper abdomen. RAD/Chest 1 View (Portable) IMPRESSION: Increasing bilateral pleural effusions with vascular congestion as well as increased markings in the left upper lobe and right lower lobe suggestive of superimposed CHF. Follow-up is recommended. Electronically Signed: Lewis Aguirre MD at 9:16 EDT Tel [phone], Service support ,
[2018-02-09] MEDS: levoFLOXacin 750 MG Tablet PO (05:46)
[2018-02-09] MEDS: Sodium Chloride 0.65% 1 SPRAY SPRAY.BTL 2 SPRAY NASAL (05:46)
[2018-02-09] MEDS: dilTIAZem 60 MG Tablet PO ×2 (05:46→13:21)
[2018-02-09 07:47] LABS: Absolute Lymphocyte Count 1.47 X10^3/ul (0.83-4.51); Absolute Neutrophil Count 4.4 X10^3/uL (2.0-7.7); Basophil# 0.01 X10^3/uL; Basophil% 0.1 % (0-1); Eosinophil# 0.13 X10^3/uL; Eosinophils% 1.9 % (0-5); Hematocrit 38.5 % (37-47); Hemoglobin 11.7 g/dl (12.0-15.0); Lymphocyte # 1.47 X10^3/ul (4.0); Lymphocyte % 21.2 % (19-41); Mean Corp Hgb Conc 30.4 g/gl (32-36); Mean Corpuscular Hgb 28.8 pg (27.0-32.0); Mean Corpuscular Volume 94.8 fL (81-99); Mean Platelet Vol. 10.2 fl (6.2-12.0); Neutrophil # 4.41 X10^3/uL (2.7-7.7); Neutrophil % 63.7 % (47-70); Platelet Count 169 K/mm3 (150-450); RBC Distribution Width CV 13.9 % (11.6-14.6); RBC Distribution Width SD 46.7 fl (35.1-43.9); Red Blood Count 4.06 M/mm3 (4.2-5.4); White Blood Count 6.9 K/mm3 (4.4-11.0)
[2018-02-09 07:59] LABS: POSITIVE COUNT NO; POSITIVE DIFFERENTIAL NO; POSITIVE MORPHOLOGY NO
[2018-02-09] MEDS: Metoprolol Tartrate 5 MG/5 ML Vial IV (08:07)
[2018-02-09 08:12] LABS: ALB/GLOB Ratio 1.2 RATIO (0.9-2.4); AST(SGOT) 16 U/L (15-37); Alanine Aminotransfer ALT/SGPT 26 U/L (13-56); Albumin, Serum 3.8 g/dL (3.2-5.0); Alkaline Phosphatase 89 U/L (45-117); Anion Gap 6 (5-15); BUN 20 mg/dL (7-18); BUN/Creat Ratio 18.7 RATIO (10-20); Calcium,Total 9.7 mg/dL (8.5-10.1); Chloride 96 mmol/L (98-107); Creatinine, Serum 1.07 mg/dL (0.55-1.02); EST Glomerular Filtration Rate 54 mL/min (>60); Est Glom Filt Rate - Afr Amer 65 mL/min (>60); Estimated Creatinine Clearance 41.05 ml/min; Globulin 3.1 g/dL (2.2-4.2); Glucose 95 mg/dL (74-106); Magnesium 2.2 mg/dL (1.6-2.6); Phosphorus 3.8 mg/dL (2.5-4.9); Potassium 3.7 mmol/L (3.5-5.1); Protein, Total 6.9 g/dL (6.4-8.2); Sodium Level 141 mmol/L (136-145)
[2018-02-09] MEDS: Digoxin 250 MCG/ML Ampul 500 MCG IV (10:27)
[2018-02-09] MEDS: guaiFENesin 600 MG Tablet PO ×2 (10:32→20:49)
[2018-02-09] MEDS: Calcium Carb/Vitamin D 1 TABLET Tablet PO (10:32)
[2018-02-09] MEDS: Pantoprazole Sodium 20 MG Tablet PO (10:32)
[2018-02-09] MEDS: Nystatin Powder 15gm Bottle 1 APPLIC TOPICAL ×2 (10:35→20:50)
--- NOTE | 2018-02-09 10:50 | PCM.PN.HOSP ---
Patient Problems: Active and Suspected Problems (Last Reviewed 02/04/18 @ 20:20 by Wyatt Lora MD) Heart failure (Acute) Subjective: Patient is a 67-year-old female with a history of morbid obesity with BMI of 63, chronic diastolic CHF/HFpEF, hypertension, GERD, history of atrial flutter on chronic anticoagulation, CECILIA and COPD on supplemental O2 of 1-2 L daily who was admitted for acute on chronic respiratory failure. Patient was noted to be in decompensated heart failure. Patient's chest x-ray revealed bilateral large effusions, likely consistent with volume overload. There was also suspicion for infiltrate consistent with infectious process in the left upper lobe and was empirically placed on antibiotics. Patient is feeling quite anxious, went back into atrial fibrillation with RVR, was given a dose of Lopressor, however this did not correct her heart rate, will be trying a dose of digoxin. Patient has diuresed 5.2 L overnight, but chest x-ray reveals continued CHF and pleural effusions. Patient has some palpitations but no chest pain no nausea vomiting diarrhea. Vitals/I&O's: Vital Signs Temp Pulse Resp BP Pulse Ox 97.8 F 120 H 20 H 89/73 L 96 02/09/18 09:57 02/09/18 10:27 02/09/18 09:57 02/09/18 09:57 02/09/18 09:57 Oxygen Flow Rate (L/min) 4 Oxygen Delivery Method Nasal Cannula Weight: 153.4 kg Body Mass Index (BMI) 28.0 Intake and Output for Last 24 Hours 02/07/18 02/08/18 02/09/18 23:59 23:59 23:59 Intake Total 1090 / 1090 960 / 960 601 / 601 Output Total 5295 / 5295 5275 / 5275 3275 / 3275 Balance -4205 / -4205 -4315 / -4315 -3554 / -1624 General: Alert, Oriented x3, Cooperative HEENT: Atraumatic, PERRLA, EOMI Oral: Moist Mucosa, No Gingival or Mucosal Lesions/ Ulcerations Neck: Supple, No JVD, Trachea Midline Lungs: No wheeze, Diminished - Breath sounds, Rales Cardiovascular: Normal S1, Normal S2, Irregular Rate, Tachycardic Abdomen: Soft, Non Tender, Non-Distended, - - Lower quadrant edema Extremities: No clubbing, No cyanosis, Edema - +3 pitting edema Skin: No rashes, No breakdown Musculoskeletal: No Tenderness to Palpation of Joints or Extremities, No Muscle Wasting Lymphatic: No Cervical, Supraclavicular, or Inguinal Adenopathy Neurological: Cranial nerves II-XII grossly intact, Neuro grossly intact Psych/Mental Status: Normal Affect, Anxious, Alert and oriented to time, place, person, mood and affect Microbiology Past 72 Hours 02/07/18 11:58 Sputum, Expectorated/Coughed Gram Stain - Final 02/07/18 11:58 Sputum, Expectorated/Coughed Respiratory Culture - Final Mixed normal respiratory lauren. No Streptococcus pneumoniae, beta-hemolytic Streptococcus or Staphylococcus aureus isolated. 02/07/18 15:24 Fluid - Pleural (Lung) Anaerobic Culture - Preliminary Laboratory Results 02/07/18 : Fl Pathologist Comment Reviewed 02/09/18 06:37: WBC 6.9, RBC 4.06 L, Hgb 11.7 L, Hct 38.5, MCV 94.8, MCH 28.8, MCHC 30.4 L, RDW 13.9, RDW Differential 46.7 H, Plt Count 169, MPV 10.2, Immature Gran % (Auto) 0.100, Neut % (Auto) 63.7, Lymph % (Auto) 21.2, [place] % (Auto) 13.0 H, Eos % (Auto) 1.9, Baso % (Auto) 0.1, Absolute Neuts (auto) 4.4, Absolute Lymphs (auto) 1.47, Total Counted Not Reportable 02/09/18 06:37: Sodium 141, Potassium 3.7, Chloride 96 L, Carbon Dioxide 39.0 H, Anion Gap 6, BUN 20 H, Creatinine 1.07 H, Estim Creat Clear Calc 41.05, Est GFR (MDRD) Af Amer 65, Est GFR (MDRD) Non-Af 54 L, BUN/Creatinine Ratio 18.7, Glucose 95, Calcium 9.7, Phosphorus 3.8, Magnesium 2.2, Total Bilirubin 0.90, AST 16, ALT 26, Alkaline Phosphatase 89, Total Protein 6.9, Albumin 3.8, Globulin 3.1, Albumin/Globulin Ratio 1.2 Current Medications Acetaminophen (Tylenol) 650 mg PO Q6H PRN PRN PRN Reason: Mild Pain (scale 0-3)/T>100.7 Albuterol Sulfate (Ventolin Aerosols) 2.5 mg INHALATION Q2H PRN PRN PRN Reason: SHORTNESS OF BREATH Albuterol/Ipratropium (Duoneb) 3 ml INHALATION Q4H.RT [facility] Last Admin: 02/09/18 07:06 Dose: 3 ml Bisacodyl (Dulcolax) 5 mg PO DAILY PRN PRN PRN Reason: Constipation Last Admin: 02/06/18 17:38 Dose: 5 mg Calamine/Phenol (Calmoseptine Ointment) 1 applic TOPICAL 4X/DAY PRN; Protocol PRN Reason: skin irritation Calcium/Vitamin D (Os-Jose 500mg + D) 1 tablet PO DAILY [facility] Last Admin: 02/09/18 10:32 Dose: 1 tablet Diltiazem HCl (Cardizem) 60 mg PO TID [facility] Last Admin: 02/09/18 05:46 Dose: 60 mg Furosemide (Lasix) 40 mg IV Q12 [facility] Last Admin: 02/09/18 10:09 Dose: Not Given Guaifenesin (Mucinex) 600 mg PO BID [facility] Last Admin: 02/09/18 10:32 Dose: 600 mg Albumin Human () 25 gm in 100 mls @ 60 mls/hr IV Q8H [facility] Stop: 02/09/18 11:39 Last Admin: 02/09/18 10:09 Dose: Not Given Levofloxacin (Levaquin Tablet) 750 mg PO DAILY@0600 [facility] Last Admin: 02/09/18 05:46 Dose: 750 mg Lorazepam (Ativan) 0.5 mg PO Q6H PRN PRN PRN Reason: ANXIETY Last Admin: 02/07/18 11:54 Dose: 0.5 mg Magnesium Hydroxide (Milk Of Magnesia) 30 ml PO DAILY PRN PRN Reason: Constipation Last Admin: 02/07/18 16:56 Dose: 30 ml Metoprolol Tartrate (Lopressor (Beta Wallace)) 50 mg PO BID [facility] Last Admin: 02/09/18 10:37 Dose: Not Given Metoprolol Tartrate (Lopressor (Beta Wallace)) 5 mg IV Q6 PRN PRN Reason: tachycardia Last Admin: 02/09/18 08:07 Dose: 5 mg Nystatin (Mycostatin Powder) 1 applic TOPICAL BID [facility]; Protocol Last Admin: 02/09/18 10:35 Dose: 1 applic Ondansetron HCl (Zofran) 4 mg IV Q8H PRN PRN PRN Reason: Nausea Pantoprazole Sodium (Protonix) 20 mg PO DAILY [facility] Last Admin: 02/09/18 10:32 Dose: 20 mg Rivaroxaban (Xarelto) 20 mg PO DAILY@1730 [facility] Last Admin: 02/08/18 18:11 Dose: 20 mg Sodium Chloride () 5 - 30 ml IV UD PRN PRN Reason: SALINE FLUSH Last Admin: 02/09/18 04:18 Dose: 10 ml Sodium Chloride ([place] Nasal [place]) 2 spray NASAL TID PRN PRN PRN Reason: NASAL DRYNESS Last Admin: 02/09/18 05:46 Dose: 2 spray Zolpidem Tartrate (Ambien (Generic)) 5 mg PO QHS PRN PRN PRN Reason: INSOMNIA Medical Necessity - Tobacco Use Smoking Status: Former smoker Assessment/Plan All Active Problems (Last Reviewed 02/04/18 @ 20:20 by Wyatt Lora MD) Heart failure (Acute) CECILIA (obstructive sleep apnea) (Acute) Shortness of breath (Acute) Atrial flutter with rapid ventricular response (Acute) Healthcare associated bacterial pneumonia (Acute) Acute kidney injury (Acute) Chest pain (Acute) Acute respiratory failure (Acute) Healthcare-associated pneumonia (Acute) Atrial flutter (Acute) Patient is a 67-year-old female with a history of morbid obesity with BMI of 63, chronic diastolic CHF/HFpEF, hypertension, GERD, history of atrial flutter on chronic anticoagulation, CECILIA and COPD on supplemental O2 of 1-2 L daily who was admitted for acute on chronic respiratory failure. Patient was noted to be in decompensated heart failure. Acute on chronic hypoxemic respiratory failure, resolved Related to decompensated heart failure +/- PNA. Continue Levaquin recheck chest x-ray in the morning we will have to continue BiPAP as needed has atrial fibrillation with RVR as probably Collister further congestion. Acute on chronic diastolic CHF/HFpEF To aggressively diurese patient with IV Lasix, however unfortunately patient's blood pressure is low because of A. fib with RVR we will hold off on Lasix, will recheck patient in the afternoon and try to diuresis again with the Zaroxolyn. Patient's hypoalbuminemia has very resolved so third spacing is probably not of high concern. We will discontinue albumin, and monitor. Her potassium has corrected we will give another dose of p.o. potassium and recheck in the morning.. Patient already had thoracentesis. However with bloody exudate will be difficult to determine if his transudate in versus exudate and also because patient has been on Lasix. We will repeat chest x-ray and continue BiPAP as this will help remove fluid. Suspected PNA Chest x-ray with new upper lobe infiltrate, suspicious for pneumonia. Last hospitalization was in November, which may qualify for HCAP, however patient appears to be responding appropriately to oral Levaquin. Continue with current antibiotic. Blood culture pending and sputum showing normal lauren. Chronic atrial flutter status post cardioversion, on anticoagulation She went into atrial fibrillation with RVR, will give digoxin, Lopressor, I will see the patient in in the afternoon and see if this has resolved. Continue with Xarelto. CECILIA Continue with BiPAP nightly. Patient utilizes CPAP at night. 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 Wean down supplemental O2 via nasal cannula back down to her baseline of 2 L daily. Morbid obesity, BMI of 63 Aware. UTI On Levaquin Hypokalemia Vein will supplement again recheck levels in the a.m. DVT prophylaxis On Xarelto diet 1500 fluid restriction CODE STATUS full Disposition fortunately cannot continue aggressive diuresis until atrial fibrillation and RVR has been resolved. As patient's blood pressure is on the low side. Once reevaluated hopefully this afternoon will restart Lasix and possibly reduce of Zaroxolyn. Patient lost 5.2 liters in urine overnight we will try to attempt this again. Chart is dictated with wheat cleaner software. Errors may occur in dictation that may change providers meaning. This note was generated with [employer] dictation software. It may contain incorrect words, spelling, and punctuation that were not noted in checking the note before signing. Code Visit Inpatient E&M: 23508 Subs Hosp L3
--- NOTE | 2018-02-09 10:58 | PN_ITS ---
Patient Problems: Active and Suspected Problems (Last Reviewed 02/04/18 @ 20:20 by Wyatt Lora MD) Heart failure (Acute) Subjective: Patient is a 67-year-old female with a history of morbid obesity with BMI of 63, chronic diastolic CHF/HFpEF, hypertension, GERD, history of atrial flutter on chronic anticoagulation, CECILIA and COPD on supplemental O2 of 1-2 L daily who was admitted for acute on chronic respiratory failure. Patient was noted to be in decompensated heart failure. Patient's chest x-ray revealed bilateral large effusions, likely consistent with volume overload. There was also suspicion for infiltrate consistent with infectious process in the left upper lobe and was empirically placed on antibiotics. Patient is feeling quite anxious, went back into atrial fibrillation with RVR, was given a dose of Lopressor, however this did not correct her heart rate, will be trying a dose of digoxin. Patient has diuresed 5.2 L overnight, but chest x- ray reveals continued CHF and pleural effusions. Patient has some palpitations but no chest pain no nausea vomiting diarrhea. Vitals/I&O's: Vital Signs Temp Pulse Resp BP Pulse Ox 97.8 F 120 H 20 H 89/73 L 96 02/09/18 09:57 02/09/18 10:27 02/09/18 09:57 02/09/18 09:57 02/09/18 09:57 Oxygen Flow Rate (L/min) 4 Oxygen Delivery Method Nasal Cannula Weight: 153.4 kg Body Mass Index (BMI) 28.0 Intake and Output for Last 24 Hours 02/07/18 02/08/18 02/09/18 23:59 23:59 23:59 Intake Total 1090 / 1090 960 / 960 601 / 601 Output Total 5295 / 5295 5275 / 5275 3275 / 3275 Balance -4205 / -4205 -4315 / -4315 -3444 / -2624 General: Alert, Oriented x3, Cooperative HEENT: Atraumatic, PERRLA, EOMI Oral: Moist Mucosa, No Gingival or Mucosal Lesions/ Ulcerations Neck: Supple, No JVD, Trachea Midline Lungs: No wheeze, Diminished - Breath sounds, Rales Cardiovascular: Normal S1, Normal S2, Irregular Rate, Tachycardic Abdomen: Soft, Non Tender, Non-Distended, - - Lower quadrant edema Extremities: No clubbing, No cyanosis, Edema - +3 pitting edema Skin: No rashes, No breakdown Musculoskeletal: No Tenderness to Palpation of Joints or Extremities, No Muscle Wasting Lymphatic: No Cervical, Supraclavicular, or Inguinal Adenopathy Neurological: Cranial nerves II-XII grossly intact, Neuro grossly intact Psych/Mental Status: Normal Affect, Anxious, Alert and oriented to time, place, person, mood and affect Microbiology Past 72 Hours 02/07/18 11:58 Sputum, Expectorated/Coughed Gram Stain - Final 02/07/18 11:58 Sputum, Expectorated/Coughed Respiratory Culture - Final Mixed normal respiratory lauren. No Streptococcus pneumoniae, beta-hemolytic Streptococcus or Staphylococcus aureus isolated. 02/07/18 15:24 Fluid - Pleural (Lung) Anaerobic Culture - Preliminary Laboratory Results 02/07/18 : Fl Pathologist Comment Reviewed 02/09/18 06:37: WBC 6.9, RBC 4.06 L, Hgb 11.7 L, Hct 38.5, MCV 94.8, MCH 28.8, MCHC 30.4 L, RDW 13.9, RDW Differential 46.7 H, Plt Count 169, MPV 10.2, Immature Gran % (Auto) 0.100, Neut % (Auto) 63.7, Lymph % (Auto) 21.2, [place] % (Auto) 13.0 H, Eos % (Auto) 1.9, Baso % (Auto) 0.1, Absolute Neuts (auto) 4.4, Absolute Lymphs (auto) 1.47, Total Counted Not Reportable 02/09/18 06:37: Sodium 141, Potassium 3.7, Chloride 96 L, Carbon Dioxide 39.0 H, Anion Gap 6, BUN 20 H, Creatinine 1.07 H, Estim Creat Clear Calc 41.05, Est GFR (MDRD) Af Amer 65, Est GFR (MDRD) Non-Af 54 L, BUN/Creatinine Ratio 18.7, Glucose 95, Calcium 9.7, Phosphorus 3.8, Magnesium 2.2, Total Bilirubin 0.90, AST 16, ALT 26, Alkaline Phosphatase 89, Total Protein 6.9, Albumin 3.8, Globulin 3.1, Albumin/Globulin Ratio 1.2 Current Medications Acetaminophen (Tylenol) 650 mg PO Q6H PRN PRN PRN Reason: Mild Pain (scale 0-3)/T>100.7 Albuterol Sulfate (Ventolin Aerosols) 2.5 mg INHALATION Q2H PRN PRN PRN Reason: SHORTNESS OF BREATH Albuterol/Ipratropium (Duoneb) 3 ml INHALATION Q4H.RT [facility] Last Admin: 02/09/18 07:06 Dose: 3 ml Bisacodyl (Dulcolax) 5 mg PO DAILY PRN PRN PRN Reason: Constipation Last Admin: 02/06/18 17:38 Dose: 5 mg Calamine/Phenol (Calmoseptine Ointment) 1 applic TOPICAL 4X/DAY PRN; Protocol PRN Reason: skin irritation Calcium/Vitamin D (Os-Jose 500mg + D) 1 tablet PO DAILY [facility] Last Admin: 02/09/18 10:32 Dose: 1 tablet Diltiazem HCl (Cardizem) 60 mg PO TID [facility] Last Admin: 02/09/18 05:46 Dose: 60 mg Furosemide (Lasix) 40 mg IV Q12 [facility] Last Admin: 02/09/18 10:09 Dose: Not Given Guaifenesin (Mucinex) 600 mg PO BID [facility] Last Admin: 02/09/18 10:32 Dose: 600 mg Albumin Human () 25 gm in 100 mls @ 60 mls/hr IV Q8H [facility] Stop: 02/09/18 11:39 Last Admin: 02/09/18 10:09 Dose: Not Given Levofloxacin (Levaquin Tablet) 750 mg PO DAILY@0600 [facility] Last Admin: 02/09/18 05:46 Dose: 750 mg Lorazepam (Ativan) 0.5 mg PO Q6H PRN PRN PRN Reason: ANXIETY Last Admin: 02/07/18 11:54 Dose: 0.5 mg Magnesium Hydroxide (Milk Of Magnesia) 30 ml PO DAILY PRN PRN Reason: Constipation Last Admin: 02/07/18 16:56 Dose: 30 ml Metoprolol Tartrate (Lopressor (Beta Wallace)) 50 mg PO BID [facility] Last Admin: 02/09/18 10:37 Dose: Not Given Metoprolol Tartrate (Lopressor (Beta Wallace)) 5 mg IV Q6 PRN PRN Reason: tachycardia Last Admin: 02/09/18 08:07 Dose: 5 mg Nystatin (Mycostatin Powder) 1 applic TOPICAL BID [facility]; Protocol Last Admin: 02/09/18 10:35 Dose: 1 applic Ondansetron HCl (Zofran) 4 mg IV Q8H PRN PRN PRN Reason: Nausea Pantoprazole Sodium (Protonix) 20 mg PO DAILY [facility] Last Admin: 02/09/18 10:32 Dose: 20 mg Rivaroxaban (Xarelto) 20 mg PO DAILY@1730 [facility] Last Admin: 02/08/18 18:11 Dose: 20 mg Sodium Chloride () 5 - 30 ml IV UD PRN PRN Reason: SALINE FLUSH Last Admin: 02/09/18 04:18 Dose: 10 ml Sodium Chloride ([place] Nasal [place]) 2 spray NASAL TID PRN PRN PRN Reason: NASAL DRYNESS Last Admin: 02/09/18 05:46 Dose: 2 spray Zolpidem Tartrate (Ambien (Generic)) 5 mg PO QHS PRN PRN PRN Reason: INSOMNIA Medical Necessity - Tobacco Use Smoking Status: Former smoker Assessment/Plan All Active Problems (Last Reviewed 02/04/18 @ 20:20 by Wyatt Lora MD) Heart failure (Acute) CECILIA (obstructive sleep apnea) (Acute) Shortness of breath (Acute) Atrial flutter with rapid ventricular response (Acute) Healthcare associated bacterial pneumonia (Acute) Acute kidney injury (Acute) Chest pain (Acute) Acute respiratory failure (Acute) Healthcare-associated pneumonia (Acute) Atrial flutter (Acute) Patient is a 67-year-old female with a history of morbid obesity with BMI of 63, chronic diastolic CHF/HFpEF, hypertension, GERD, history of atrial flutter on chronic anticoagulation, CECILIA and COPD on supplemental O2 of 1-2 L daily who was admitted for acute on chronic respiratory failure. Patient was noted to be in decompensated heart failure. Acute on chronic hypoxemic respiratory failure, resolved Related to decompensated heart failure +/- PNA. Continue Levaquin recheck chest x-ray in the morning we will have to continue BiPAP as needed has atrial fibrillation with RVR as probably Collister further congestion. Acute on chronic diastolic CHF/HFpEF To aggressively diurese patient with IV Lasix, however unfortunately patient's blood pressure is low because of A. fib with RVR we will hold off on Lasix, will recheck patient in the afternoon and try to diuresis again with the Zaroxolyn. Patient's hypoalbuminemia has very resolved so third spacing is probably not of high concern. We will discontinue albumin, and monitor. Her potassium has corrected we will give another dose of p.o. potassium and recheck in the morning.. Patient already had thoracentesis. However with bloody exudate will be difficult to determine if his transudate in versus exudate and also because patient has been on Lasix. We will repeat chest x-ray and continue BiPAP as this will help remove fluid. Suspected PNA Chest x-ray with new upper lobe infiltrate, suspicious for pneumonia. Last hospitalization was in November, which may qualify for HCAP, however patient appears to be responding appropriately to oral Levaquin. Continue with current antibiotic. Blood culture pending and sputum showing normal lauren. Chronic atrial flutter status post cardioversion, on anticoagulation She went into atrial fibrillation with RVR, will give digoxin, Lopressor, I will see the patient in in the afternoon and see if this has resolved. Continue with Xarelto. CECILIA Continue with BiPAP nightly. Patient utilizes CPAP at night. She never had a sleep study and needs to tow picker her BiPAP COPD, on supplemental O2 of 2 L daily Not in acute exacerbation but will require continued scheduled bronchodilators. Wean down supplemental O2 via nasal cannula back down to her baseline of 2 L daily. Morbid obesity, BMI of 63 Aware. UTI On Levaquin Hypokalemia Vein will supplement again recheck levels in the a.m. DVT prophylaxis On Xarelto diet 1500 fluid restriction CODE STATUS full Disposition fortunately cannot continue aggressive diuresis until atrial fibrillation and RVR has been resolved. As patient's blood pressure is on the low side. Once reevaluated hopefully this afternoon will restart Lasix and possibly reduce of Zaroxolyn. Patient lost 5.2 liters in urine overnight we will try to attempt this again. Chart is dictated with nuclear waste process operator software. Errors may occur in dictation that may change providers meaning. This note was generated with [employer] dictation software. It may contain incorrect words, spelling, and punctuation that were not noted in checking the note before signing. Code Visit Inpatient E&M: 30196 Subs Hosp L3
--- NOTE | 2018-02-09 12:42 | PCM.PROGNOTE ---
Patient Problems: Active and Suspected Problems (Last Reviewed 02/04/18 @ 20:20 by Wyatt Lora MD) Heart failure (Acute) Subjective: The patient was seen and examined at the bedside this morning. Events from the last 24 hours have been reviewed. The patient is currently afebrile, hemodynamically stable and maintaining appropriate oxygen saturations on 4 L/min. The patient did go back into atrial fibrillation with rapid ventricular rate. She is currently overall net -17+ liters for the admission. Objective: The patient's most recent lab work, culture data and imaging studies have all been personally reviewed. Her last pulmonary function testing completed in December 2017 revealed evidence of an irreversible severe mixed ventilatory defect with a symmetric reduction in diffusing capacity. The patient also has known obstructive sleep apnea based off of her initial diagnostic polysomnogram completed in December 2017, which revealed evidence of mild CECILIA with an apnea hypopnea index of 5.2 events per hour. A follow-up titration study completed in January revealed the need for bilevel therapy with a pressure support of 26/20 centimeters of water with humidification along with a 6 L/min supplemental oxygen bleed in. Surface echocardiogram from November 2017 revealed evidence of a mildly dilated LV with mild concentric LVH and an ejection fraction of 55%. The RV was moderately dilated with mild to moderate global RV systolic dysfunction. Right ventricular systolic pressure was estimated to be 35 mmHg. - Physical Exam General: Alert, Oriented x3, Cooperative HEENT: Atraumatic, PERRLA, Normocephalic Oral: No Gingival or Mucosal Lesions/ Ulcerations Neck: Supple, No Nodes, Trachea Midline Lungs: No rhonchi, No wheeze, Diminished, Rales Cardiovascular: Normal S1, Normal S2, Irregular Rate, Tachycardic Abdomen: Bowel Sounds Present, Soft, Non Tender, Obese Extremities: No clubbing, No cyanosis, Edema Skin: No breakdown Musculoskeletal: No Tenderness to Palpation of Joints or Extremities, No Muscle Wasting Lymphatic: No Cervical, Supraclavicular, or Inguinal Adenopathy Neurological: Cranial nerves II-XII grossly intact, Neuro grossly intact Psych/Mental Status: Anxious Vital Signs Temp Pulse Resp BP Pulse Ox 98 F 78 18 117/74 94 02/09/18 10:57 02/09/18 11:00 02/09/18 11:00 02/09/18 10:57 02/09/18 11:00 Oxygen Flow Rate (L/min) 4 Oxygen Delivery Method Bi-pap Weight: 338 lb 3.025 oz Body Mass Index (BMI) 28.0 Intake and Output for Last 24 Hours 02/07/18 02/08/18 02/09/18 23:59 23:59 23:59 Intake Total 1090 / 1090 960 / 960 601 / 601 Output Total 5295 / 5295 5275 / 5275 3275 / 3275 Balance -4205 / -4205 -4315 / -4315 -2674 / -2674 Microbiology Past 72 Hours 02/07/18 15:24 Gram Stain - Final Fluid - Pleural (Lung) Body Fluid Culture - Preliminary No growth-Final to follow Anaerobic Culture - Preliminary 02/07/18 11:58 Gram Stain - Final Sputum, Expectorated/Coughed Respiratory Culture - Final Mixed normal respiratory lauren. No Streptococcus pneumoniae, beta-hemolytic Streptococcus or Staphylococcus aureus isolated. Laboratory Tests Past 24 Hrs 02/07/18 02/09/18 02/09/18 Unknown 06:37 06:37 WBC 6.9 RBC 4.06 L Hgb 11.7 L Hct 38.5 MCV 94.8 MCH 28.8 MCHC 30.4 L RDW 13.9 RDW Differential 46.7 H Plt Count 169 MPV 10.2 Immature Gran % (Auto) 0.100 Neut % (Auto) 63.7 Lymph % (Auto) 21.2 [place] % (Auto) 13.0 H Eos % (Auto) 1.9 Baso % (Auto) 0.1 Absolute Neuts (auto) 4.4 Absolute Lymphs (auto) 1.47 Total Counted Not Reportable Sodium 141 Potassium 3.7 Chloride 96 L Carbon Dioxide 39.0 H Anion Gap 6 BUN 20 H Creatinine 1.07 H Estim Creat Clear Calc 41.05 Est GFR (MDRD) Af Amer 65 Est GFR (MDRD) Non-Af 54 L BUN/Creatinine Ratio 18.7 Glucose 95 Calcium 9.7 Phosphorus 3.8 Magnesium 2.2 Total Bilirubin 0.90 AST 16 ALT 26 Alkaline Phosphatase 89 Total Protein 6.9 Albumin 3.8 Globulin 3.1 Albumin/Globulin Ratio 1.2 Fl Pathologist Comment Reviewed Clinical Impression(s) from Imaging Studies Chest X-Ray 02/04/18 18:40 IMPRESSION: Findings compatible with worsening interstitial edema/congestive failure with effusions. Electronically Signed: Edwin Duarte MD at 19:11 EDT , Service support , Chest X-Ray 02/06/18 05:55 IMPRESSION: 1. Large pleural effusions are similar in appearance to the previous study with decreased pulmonary congestion. 2. New left upper lobe airspace disease. Electronically Signed: Deb Arango MD at 5:27 EDT , Service support , Chest X-Ray 02/07/18 05:55 IMPRESSION: Bilateral pleural effusions, large on the left and small on the right. Atelectasis or infiltrate probably in the lower left lung. Electronically Signed: Temo Yarbrough MD at 19:10 EDT , Service support , Thoracentesis Ultrasound 02/07/18 09:23 IMPRESSION: Ultrasound-guided left thoracentesis. Electronically Signed: Lewis Aguirre MD at 15:55 EDT Tel [phone], Service support , Chest X-Ray 02/07/18 15:10 IMPRESSION: Status post left thoracentesis. There is no evidence of pneumothorax. Electronically Signed: Lewis Aguirre MD at 15:30 EDT Tel [phone], Service support , Chest X-Ray 02/09/18 05:30 IMPRESSION: Increasing bilateral pleural effusions with vascular congestion as well as increased markings in the left upper lobe and right lower lobe suggestive of superimposed CHF. Follow-up is recommended. Electronically Signed: Lewis Aguirre MD at 9:16 EDT Tel [phone], Service support , Medical Necessity - Tobacco Use Smoking Status: Former smoker Assessment/Plan All Active Problems (Last Reviewed 02/04/18 @ 20:20 by Wyatt Lora MD) Heart failure (Acute) CECILIA (obstructive sleep apnea) (Acute) Shortness of breath (Acute) Atrial flutter with rapid ventricular response (Acute) Healthcare associated bacterial pneumonia (Acute) Acute kidney injury (Acute) Chest pain (Acute) Acute respiratory failure (Acute) Healthcare-associated pneumonia (Acute) Atrial flutter (Acute) RECOMMENDATIONS: 1. Recommend decreasing current Lasix regimen, as the patient is being over diuresed. Contraction alkalosis is worsening. 2. Recommend cardiology consultation 3. Mobilize patient as tolerated. 4. Place patient on BiPAP 26/20 centimeters of water +6L with naps and nightly. 5. The patient should follow-up as scheduled with Dr. Newman in the pulmonary medicine clinic within 3 months of initiating BIPAP in her home environment. IMPRESSIONS: 1. Acute on chronic hypoxemic respiratory failure/baseline severe mixed ventilatory defect The patient appears to have only partially responded to volume optimization with IV diuretics. She does have evidence of bilateral pleural effusions on chest imaging. The etiology for her dyspnea on presentation is most likely the consequence of decompensated heart failure. Although the patient has been overall net negative for the hospital stay now, she is being aggressively over diuresed and has developed a contraction alkalosis. Despite my recommendation to the contrary, she remains on high doses of IV diuretics. An ultrasound-guided thoracentesis was performed previously which revealed bloody fluid, which per light's criteria was exudative in nature. However, the patient was on diuretics at the time, which can make the pleural fluid appear falsely exudative in nature. Pleural fluid culture results are pending. Continue to wean supplemental oxygen as tolerated. Again, recommend scaling back on the patient's diuretic regimen and considering consultation to cardiology, given atrial fibrillation with RVR. 2. Obstructive sleep apnea The exact reason for the patient's consultation to me is a bit unclear, as I was consulted for CECILIA. She does already have known CECILIA and is already prescribed BiPAP. She is supposed to waste picker her machine from [employer], once she is released from the hospital. She would need to follow-up with Dr. Newman as scheduled within 3 months of initiating nocturnal Pap therapy. In the interim, recommend that the patient be placed on bilevel with a pressure support of 26/20 centimeters of water with a 6 L supplemental oxygen bleed in, per the recommendations of her titration polysomnogram. 3. History of atrial flutter with rapid ventricular response/history of failed cardioversions Continue current cardiac medical management and diuretics. May wish to have cardiology evaluate patient. 4. Super morbid obesity/GERD/anxiety Complicates care, management, recovery and prognosis. This note was generated with [employer] dictation software. It may contain incorrect words, spelling, and punctuation that were not noted in checking the note before signing. Code Visit Inpatient E&M: 80014 Subs Hosp L2
--- NOTE | 2018-02-09 12:48 | PN_ITS ---
Patient Problems: Active and Suspected Problems (Last Reviewed 02/04/18 @ 20:20 by Wyatt Lora MD) Heart failure (Acute) Subjective: The patient was seen and examined at the bedside this morning. Events from the last 24 hours have been reviewed. The patient is currently afebrile, hemodynamically stable and maintaining appropriate oxygen saturations on 4 L/min. The patient did go back into atrial fibrillation with rapid ventricular rate. She is currently overall net -17+ liters for the admission. Objective: The patient's most recent lab work, culture data and imaging studies have all been personally reviewed. Her last pulmonary function testing completed in December 2017 revealed evidence of an irreversible severe mixed ventilatory defect with a symmetric reduction in diffusing capacity. The patient also has known obstructive sleep apnea based off of her initial diagnostic polysomnogram completed in December 2017, which revealed evidence of mild CECILIA with an apnea hypopnea index of 5.2 events per hour. A follow-up titration study completed in January revealed the need for bilevel therapy with a pressure support of 26/20 centimeters of water with humidification along with a 6 L/min supplemental oxygen bleed in. Surface echocardiogram from November 2017 revealed evidence of a mildly dilated LV with mild concentric LVH and an ejection fraction of 55%. The RV was moderately dilated with mild to moderate global RV systolic dysfunction. Right ventricular systolic pressure was estimated to be 35 mmHg. - Physical Exam General: Alert, Oriented x3, Cooperative HEENT: Atraumatic, PERRLA, Normocephalic Oral: No Gingival or Mucosal Lesions/ Ulcerations Neck: Supple, No Nodes, Trachea Midline Lungs: No rhonchi, No wheeze, Diminished, Rales Cardiovascular: Normal S1, Normal S2, Irregular Rate, Tachycardic Abdomen: Bowel Sounds Present, Soft, Non Tender, Obese Extremities: No clubbing, No cyanosis, Edema Skin: No breakdown Musculoskeletal: No Tenderness to Palpation of Joints or Extremities, No Muscle Wasting Lymphatic: No Cervical, Supraclavicular, or Inguinal Adenopathy Neurological: Cranial nerves II-XII grossly intact, Neuro grossly intact Psych/Mental Status: Anxious Vital Signs Temp Pulse Resp BP Pulse Ox 98 F 78 18 117/74 94 02/09/18 10:57 02/09/18 11:00 02/09/18 11:00 02/09/18 10:57 02/09/18 11:00 Oxygen Flow Rate (L/min) 4 Oxygen Delivery Method Bi-pap Weight: 338 lb 3.025 oz Body Mass Index (BMI) 28.0 Intake and Output for Last 24 Hours 02/07/18 02/08/18 02/09/18 23:59 23:59 23:59 Intake Total 1090 / 1090 960 / 960 601 / 601 Output Total 5295 / 5295 5275 / 5275 3275 / 3275 Balance -4205 / -4205 -4315 / -4315 -2674 / -2674 Microbiology Past 72 Hours 02/07/18 15:24 Gram Stain - Final Fluid - Pleural (Lung) Body Fluid Culture - Preliminary No growth-Final to follow Anaerobic Culture - Preliminary 02/07/18 11:58 Gram Stain - Final Sputum, Expectorated/Coughed Respiratory Culture - Final Mixed normal respiratory lauren. No Streptococcus pneumoniae, beta-hemolytic Streptococcus or Staphylococcus aureus isolated. Laboratory Tests Past 24 Hrs 02/07/18 02/09/18 02/09/18 Unknown 06:37 06:37 WBC 6.9 RBC 4.06 L Hgb 11.7 L Hct 38.5 MCV 94.8 MCH 28.8 MCHC 30.4 L RDW 13.9 RDW Differential 46.7 H Plt Count 169 MPV 10.2 Immature Gran % (Auto) 0.100 Neut % (Auto) 63.7 Lymph % (Auto) 21.2 [place] % (Auto) 13.0 H Eos % (Auto) 1.9 Baso % (Auto) 0.1 Absolute Neuts (auto) 4.4 Absolute Lymphs (auto) 1.47 Total Counted Not Reportable Sodium 141 Potassium 3.7 Chloride 96 L Carbon Dioxide 39.0 H Anion Gap 6 BUN 20 H Creatinine 1.07 H Estim Creat Clear Calc 41.05 Est GFR (MDRD) Af Amer 65 Est GFR (MDRD) Non-Af 54 L BUN/Creatinine Ratio 18.7 Glucose 95 Calcium 9.7 Phosphorus 3.8 Magnesium 2.2 Total Bilirubin 0.90 AST 16 ALT 26 Alkaline Phosphatase 89 Total Protein 6.9 Albumin 3.8 Globulin 3.1 Albumin/Globulin Ratio 1.2 Fl Pathologist Comment Reviewed Clinical Impression(s) from Imaging Studies Chest X-Ray 02/04/18 18:40 IMPRESSION: Findings compatible with worsening interstitial edema/congestive failure with effusions. Electronically Signed: Edwin Duarte MD at 19:11 EDT , Service support , Chest X-Ray 02/06/18 05:55 IMPRESSION: 1. Large pleural effusions are similar in appearance to the previous study with decreased pulmonary congestion. 2. New left upper lobe airspace disease. Electronically Signed: Deb Arango MD at 5:27 EDT , Service support , Chest X-Ray 02/07/18 05:55 IMPRESSION: Bilateral pleural effusions, large on the left and small on the right. Atelectasis or infiltrate probably in the lower left lung. Electronically Signed: Temo Yarbrough MD at 19:10 EDT , Service support , Thoracentesis Ultrasound 02/07/18 09:23 IMPRESSION: Ultrasound-guided left thoracentesis. Electronically Signed: Lewis Aguirre MD at 15:55 EDT Tel [phone], Service support , Chest X-Ray 02/07/18 15:10 IMPRESSION: Status post left thoracentesis. There is no evidence of pneumothorax. Electronically Signed: Lewis Aguirre MD at 15:30 EDT Tel [phone], Service support , Chest X-Ray 02/09/18 05:30 IMPRESSION: Increasing bilateral pleural effusions with vascular congestion as well as increased markings in the left upper lobe and right lower lobe suggestive of superimposed CHF. Follow-up is recommended. Electronically Signed: Lewis Aguirre MD at 9:16 EDT Tel [phone], Service support , Medical Necessity - Tobacco Use Smoking Status: Former smoker Assessment/Plan All Active Problems (Last Reviewed 02/04/18 @ 20:20 by Wyatt Lora MD) Heart failure (Acute) CECILIA (obstructive sleep apnea) (Acute) Shortness of breath (Acute) Atrial flutter with rapid ventricular response (Acute) Healthcare associated bacterial pneumonia (Acute) Acute kidney injury (Acute) Chest pain (Acute) Acute respiratory failure (Acute) Healthcare-associated pneumonia (Acute) Atrial flutter (Acute) RECOMMENDATIONS: 1. Recommend decreasing current Lasix regimen, as the patient is being over diuresed. Contraction alkalosis is worsening. 2. Recommend cardiology consultation 3. Mobilize patient as tolerated. 4. Place patient on BiPAP 26/20 centimeters of water +6L with naps and nightly. 5. The patient should follow-up as scheduled with Dr. Newman in the pulmonary medicine clinic within 3 months of initiating BIPAP in her home environment. IMPRESSIONS: 1. Acute on chronic hypoxemic respiratory failure/baseline severe mixed ventilatory defect The patient appears to have only partially responded to volume optimization with IV diuretics. She does have evidence of bilateral pleural effusions on chest imaging. The etiology for her dyspnea on presentation is most likely the consequence of decompensated heart failure. Although the patient has been overall net negative for the hospital stay now, she is being aggressively over diuresed and has developed a contraction alkalosis. Despite my recommendation to the contrary, she remains on high doses of IV diuretics. An ultrasound- guided thoracentesis was performed previously which revealed bloody fluid, which per light's criteria was exudative in nature. However, the patient was on diuretics at the time, which can make the pleural fluid appear falsely exudative in nature. Pleural fluid culture results are pending. Continue to wean prince pplemental oxygen as tolerated. Again, recommend scaling back on the patient's diuretic regimen and considering consultation to cardiology, given atrial fibrillation with RVR. 2. Obstructive sleep apnea The exact reason for the patient's consultation to me is a bit unclear, as I was consulted for CECILIA. She does already have known CECILIA and is already prescribed BiPAP. 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 She would need to follow-up with Dr. Newman as scheduled within 3 months of initiating nocturnal Pap therapy. In the interim, recommend that the patient be placed on bilevel with a pressure support of 26/20 centimeters of water with a 6 L supplemental oxygen bleed in, per the recommendations of her titration polysomnogram. 3. History of atrial flutter with rapid ventricular response/history of failed cardioversions Continue current cardiac medical management and diuretics. May wish to have cardiology evaluate patient. 4. Super morbid obesity/GERD/anxiety Complicates care, management, recovery and prognosis. This note was generated with [employer] dictation software. It may contain incorrect words, spelling, and punctuation that were not noted in checking the note before signing. Code Visit Inpatient E&M: 25828 Subs Hosp L2
[2018-02-09] MEDS: LORazepam 0.5 MG Tablet PO (13:21)
[2018-02-09] MEDS: Rivaroxaban 20 MG Tablet PO (16:54)
[2018-02-09] MEDS: Metoprolol Tartrate 50 MG Tablet PO (17:07)
[2018-02-09] MEDS: Furosemide 40 MG Tablet PO (18:36)
[2018-02-10] VITALS (50 sets, daily range): BP systolic 72–144; BP diastolic 52–104; PULSE 65–139; RESP 12–32; TEMP 36.3–37.2; O2SAT 91–99
[2018-02-10] MEDS: 0.9% NaCl Peripheral Flush Adult/Peds IV ×3 (03:18→16:35)
[2018-02-10] MEDS: LORazepam 0.5 MG Tablet PO ×2 (03:18→16:35)
--- NOTE | 2018-02-10 03:30 | NURSING ---
PATIENT CALLED OUT COMPLAINING OF CHEST PRESSURE LAST LESS THAN A COUPLE MINUTES, STATES HAS HAD IT SEVERAL TIMES SINCE ADMISSION. NEVER LASTS LONG. DID CALL FOR EKG. RN CAME BACK TO ROOM AND CHEST PRESSURE WAS COMPLETELY GONE.
[2018-02-10] MEDS: levoFLOXacin 750 MG Tablet PO (05:28)
--- NOTE | 2018-02-10 05:55 | RAD_ITS ---
STUDY: X-RAY CHEST REASON FOR EXAM: Female, 67 years old. TECHNIQUE: Shortness of breath, view COMPARISON: None. FINDINGS: There is cardiomegaly improved congestive failure but persistent bilateral pleural effusions. This is more on the left than the right. Normal visualized thoracic spine. Normal visualized ribs, clavicles, and shoulders. There is no demonstrated abnormality of the visualized soft tissue structures of the upper abdomen. RAD/Chest 1 View (Portable) IMPRESSION: Cardiomegaly with improved congestive failure and bilateral pleural effusions. This is more on the left than the right Electronically Signed: Manjit Turner MD at 6:53 EDT Tel , Service support ,
[2018-02-10 06:54] LABS: Absolute Lymphocyte Count 1.31 X10^3/ul (0.83-4.51); Absolute Neutrophil Count 5.1 X10^3/uL (2.0-7.7); Basophil# 0.01 X10^3/uL; Basophil% 0.1 % (0-1); Eosinophil# 0.23 X10^3/uL; Eosinophils% 3.1 % (0-5); Hematocrit 39.6 % (37-47); Hemoglobin 12.1 g/dl (12.0-15.0); Lymphocyte # 1.31 X10^3/ul (4.0); Lymphocyte % 17.4 % (19-41); Mean Corp Hgb Conc 30.6 g/gl (32-36); Mean Corpuscular Hgb 28.9 pg (27.0-32.0); Mean Corpuscular Volume 94.5 fL (81-99); Mean Platelet Vol. 10.4 fl (6.2-12.0); Monocyte# 0.89 X10^3/uL; Monocyte% 11.8 % (0-10); Neutrophil # 5.09 X10^3/uL (2.7-7.7); Neutrophil % 67.5 % (47-70); POSITIVE COUNT NO; POSITIVE DIFFERENTIAL NO; POSITIVE MORPHOLOGY NO; Platelet Count 170 K/mm3 (150-450); RBC Distribution Width CV 13.7 % (11.6-14.6); RBC Distribution Width SD 45.3 fl (35.1-43.9); Red Blood Count 4.19 M/mm3 (4.2-5.4); White Blood Count 7.5 K/mm3 (4.4-11.0)
[2018-02-10 07:21] LABS: AST(SGOT) 16 U/L (15-37); Alanine Aminotransfer ALT/SGPT 25 U/L (13-56); Albumin, Serum 3.4 g/dL (3.2-5.0); Alkaline Phosphatase 91 U/L (45-117); Anion Gap 7 (5-15); BUN 20 mg/dL (7-18); BUN/Creat Ratio 19.6 RATIO (10-20); Calcium,Total 9.6 mg/dL (8.5-10.1); Chloride 96 mmol/L (98-107); Creatinine, Serum 1.02 mg/dL (0.55-1.02); EST Glomerular Filtration Rate 57 mL/min (>60); Est Glom Filt Rate - Afr Amer 69 mL/min (>60); Estimated Creatinine Clearance 43.06 ml/min; Globulin 3.3 g/dL (2.2-4.2); Glucose 103 mg/dL (74-106); Phosphorus 4.4 mg/dL (2.5-4.9); Potassium 3.4 mmol/L (3.5-5.1); Protein, Total 6.7 g/dL (6.4-8.2); Sodium Level 138 mmol/L (136-145)
[2018-02-10] MEDS: Ipratropium/Albuterol Sulfate 3 ML AMPUL.NEB INHALATION ×5 (07:36→23:07)
--- NOTE | 2018-02-10 08:44 | PN_ITS ---
Subjective: The patient was seen and examined at the bedside this morning. Events from the last 24 hours have been reviewed. The patient is currently afebrile, hemodynamically stable and maintaining appropriate oxygen saturations on 4 L/min. The patient was intolerant of BiPAP pressures that were recommended from her recent polysomnogram. BiPAP/CPAP pressures were subsequently decreased. The patient is currently on a Cardizem drip for rate control due to underlying atrial fibrillation. Her serum bicarb appears to have plateaued at 39 yesterday. Objective: The patient's most recent lab work, culture data and imaging studies have all been personally reviewed. Her last pulmonary function testing completed in December 2017 revealed evidence of an irreversible severe mixed ventilatory defect with a symmetric reduction in diffusing capacity. The patient also has known obstructive sleep apnea based off of her initial diagnostic polysomnogram completed in December 2017, which revealed evidence of mild CECILIA with an apnea hypopnea index of 5.2 events per hour. A follow-up titration study completed in January revealed the need for bilevel therapy with a pressure support of 26/20 centimeters of water with humidification along with a 6 L/min supplemental oxygen bleed in. Surface echocardiogram from November 2017 revealed evidence of a mildly dilated LV with mild concentric LVH and an ejection fraction of 55%. The RV was moderately dilated with mild to moderate global RV systolic dysfunction. Right ventricular systolic pressure was estimated to be 35 mmHg. - Physical Exam General: Alert, Cooperative, No apparent distress HEENT: Atraumatic, PERRLA, Normocephalic Oral: No Gingival or Mucosal Lesions/ Ulcerations Neck: Supple, No Nodes, Trachea Midline Lungs: No rhonchi, No wheeze, Diminished, Rales Cardiovascular: Normal S1, Normal S2, No murmurs, Irregular Rate, Tachycardic Abdomen: Bowel Sounds Present, Soft, Non Tender, Obese Extremities: No clubbing, No cyanosis, Edema Skin: No breakdown Musculoskeletal: No Tenderness to Palpation of Joints or Extremities Lymphatic: No Cervical, Supraclavicular, or Inguinal Adenopathy Neurological: Cranial nerves II-XII grossly intact, Neuro grossly intact Psych/Mental Status: Anxious Vital Signs Temp Pulse Resp BP Pulse Ox 97.9 F 128 H 20 H 140/77 H 95 02/10/18 08:00 02/10/18 08:00 02/10/18 08:00 02/10/18 08:00 02/10/18 08:00 Oxygen Flow Rate (L/min) 4 Oxygen Delivery Method Nasal Cannula Weight: 333 lb 12.478 oz Body Mass Index (BMI) 28.0 Intake and Output for Last 24 Hours 02/08/18 02/09/18 02/10/18 23:59 23:59 23:59 Intake Total 960 / 960 1034 / 1034 56 / 56 Output Total 5275 / 5275 6075 / 6075 2075 / 2075 Balance -4315 / -4315 -5041 / -5041 -2018 / Microbiology Past 72 Hours 02/07/18 15:24 Gram Stain - Final Fluid - Pleural (Lung) Body Fluid Culture - Preliminary No growth-Final to follow Anaerobic Culture - Preliminary 02/07/18 11:58 Gram Stain - Final Sputum, Expectorated/Coughed Respiratory Culture - Final Mixed normal respiratory lauren. No Streptococcus pneumoniae, beta-hemolytic Streptococcus or Staphylococcus aureus isolated. Laboratory Tests Past 24 Hrs 02/10/18 02/10/18 06:00 06:00 WBC 7.5 RBC 4.19 L Hgb 12.1 Hct 39.6 MCV 94.5 MCH 28.9 MCHC 30.6 L RDW 13.7 RDW Differential 45.3 H Plt Count 170 MPV 10.4 Immature Gran % (Auto) 0.100 Neut % (Auto) 67.5 Lymph % (Auto) 17.4 L [place] % (Auto) 11.8 H Eos % (Auto) 3.1 Baso % (Auto) 0.1 Absolute Neuts (auto) 5.1 Absolute Lymphs (auto) 1.31 Total Counted Not Reportable Sodium 138 Potassium 3.4 L Chloride 96 L Carbon Dioxide 35.0 H Anion Gap 7 BUN 20 H Creatinine 1.02 Estim Creat Clear Calc 43.06 Est GFR (MDRD) Af Amer 69 Est GFR (MDRD) Non-Af 57 L BUN/Creatinine Ratio 19.6 Glucose 103 Calcium 9.6 Phosphorus 4.4 Magnesium 2.0 Total Bilirubin 0.70 AST 16 ALT 25 Alkaline Phosphatase 91 Total Protein 6.7 Albumin 3.4 Globulin 3.3 Albumin/Globulin Ratio 1.0 Clinical Impression(s) from Imaging Studies Chest X-Ray 02/04/18 18:40 IMPRESSION: Findings compatible with worsening interstitial edema/congestive failure with effusions. Electronically Signed: Edwin Duarte MD at 19:11 EDT , Service support , Chest X-Ray 02/06/18 05:55 IMPRESSION: 1. Large pleural effusions are similar in appearance to the previous study with decreased pulmonary congestion. 2. New left upper lobe airspace disease. Electronically Signed: Deb Arango MD at 5:27 EDT , Service support , Chest X-Ray 02/07/18 05:55 IMPRESSION: Bilateral pleural effusions, large on the left and small on the right. Atelectasis or infiltrate probably in the lower left lung. Electronically Signed: Temo Yarbrough MD at 19:10 EDT , Service support , Thoracentesis Ultrasound 02/07/18 09:23 IMPRESSION: Ultrasound-guided left thoracentesis. Electronically Signed: Lewis Aguirre MD at 15:55 EDT Tel [phone], Service support , Chest X-Ray 02/07/18 15:10 IMPRESSION: Status post left thoracentesis. There is no evidence of pneumothorax. Electronically Signed: Lewis Aguirre MD at 15:30 EDT Tel [phone], Service support , Chest X-Ray 02/09/18 05:30 IMPRESSION: Increasing bilateral pleural effusions with vascular congestion as well as increased markings in the left upper lobe and right lower lobe suggestive of superimposed CHF. Follow-up is recommended. Electronically Signed: Lewis Aguirre MD at 9:16 EDT Tel [phone], Service support , Chest X-Ray 02/10/18 05:55 IMPRESSION: Cardiomegaly with improved congestive failure and bilateral pleural effusions. This is more on the left than the right Electronically Signed: Manjit Turner MD at 6:53 EDT Tel , Service support , Medical Necessity - Tobacco Use Smoking Status: Former smoker Assessment/Plan All Active Problems (Last Reviewed 02/04/18 @ 20:20 by Wyatt Lora MD) Heart failure (Acute) CECILIA (obstructive sleep apnea) (Acute) Shortness of breath (Acute) Atrial flutter with rapid ventricular response (Acute) Healthcare associated bacterial pneumonia (Acute) Acute kidney injury (Acute) Chest pain (Acute) Acute respiratory failure (Acute) Healthcare-associated pneumonia (Acute) Atrial flutter (Acute) RECOMMENDATIONS: 1. Continue augmented diuretic regimen and consider adding Diamox. 2. Recommend cardiology consultation 3. Mobilize patient as tolerated. 4. Place patient on BiPAP 26/20 centimeters of water +6L with naps and nightly. 5. The patient should follow-up as scheduled with Dr. Newman in the pulmonary medicine clinic within 3 months of initiating BIPAP in her home environment. IMPRESSIONS: 1. Acute on chronic hypoxemic respiratory failure/baseline severe mixed ventilatory defect The patient appears to have only partially responded to volume optimization with IV diuretics. She does have evidence of bilateral pleural effusions on chest imaging. The etiology for her dyspnea on presentation is most likely the conseq uence of decompensated heart failure. Although the patient has been overall net negative for the hospital stay now, she is being aggressively over diuresed and has developed a contraction alkalosis. Despite my recommendation to the contrary, she remains on high doses of IV diuretics. An ultrasound-guided thoracentesis was performed previously which revealed bloody fluid, which per light's criteria was exudative in nature. However, the patient was on diuretics at the time, which can make the pleural fluid appear falsely exudative in nature. Pleural fluid culture results are pending. Continue to wean supplemental oxygen as tolerated. Again, recommend scaling back on the patient's diuretic regimen and considering consultation to cardiology, given atrial fibrillation with RVR. 2. Obstructive sleep apnea The exact reason for the patient's consultation to me is a bit unclear, as I was consulted for CECILIA. She does already have known CECILIA and is already prescribed BiPAP. 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 She would need to follow-up with Dr. Newman as scheduled within 3 months of initiating nocturnal Pap therapy. In the interim, recommend that the patient be placed on bilevel with a pressure support of 26/20 centimeters of water with a 6 L supplemental oxygen bleed in, per the recommendations of her titration polysomnogram. 3. History of atrial flutter with rapid ventricular response/history of failed cardioversions Continue current cardiac medical management and diuretics. May wish to have cardiology evaluate patient. 4. Super morbid obesity/GERD/anxiety Complicates care, management, recovery and prognosis. This note was generated with [employer] dictation software. It may contain incorrect words, spelling, and punctuation that were not noted in checking the note before signing. Code Visit Inpatient E&M: 06930 Subs Hosp L2
[2018-02-10] MEDS: Metoprolol Tartrate 50 MG Tablet PO ×2 (09:39→21:04)
[2018-02-10] MEDS: Calcium Carb/Vitamin D 1 TABLET Tablet PO (09:39)
[2018-02-10] MEDS: guaiFENesin 600 MG Tablet PO ×2 (09:39→21:04)
[2018-02-10] MEDS: Pantoprazole Sodium 20 MG Tablet PO (09:39)
[2018-02-10] MEDS: Nystatin Powder 15gm Bottle 1 APPLIC TOPICAL ×2 (09:40→21:05)
[2018-02-10] MEDS: Furosemide 40 MG Tablet PO ×2 (09:45→16:35)
[2018-02-10] MEDS: Metoprolol Tartrate 5 MG/5 ML Vial IV (09:46)
--- NOTE | 2018-02-10 11:33 | PCM.CONS.C ---
Problem List (1) Heart failure Status: Acute (2) CECILIA (obstructive sleep apnea) Status: Acute (3) Shortness of breath Status: Acute (4) Atrial flutter with rapid ventricular response Status: Acute (5) Atrial flutter Status: Acute Qualifiers: Atrial flutter type: typical Qualified Code(s): I48.3 - Typical atrial flutter (6) HTN (hypertension) Status: Chronic Qualifiers: Reason for Consult Date of Consultation: 02/10/18 Reason for Consultation: Atrial flutter with rapid ventricular response, COPD, CHF. History of Present Illness: The patient is a 67 year old F morbidly obese, nondiabetic, patient of Dr. Hernandez's, who was recently admitted to [facility] around November 2017 with respiratory distress, requiring intubation, atrial flutter requiring NEREYDA guided DC cardioversion, and congestive heart failure symptoms. Recently patient underwent a left-sided thoracentesis on 02/07/18 with 150 cc of bloody fluid removed. Patient also has morbid obesity, diagnosed with COPD, and is currently on Xarelto therapy. She also has a history of obstructive sleep apnea and is compliant with her CPAP. The patient was seen by Dr. Hernandez in the hospital and underwent a fairly extensive cardiac evaluation including echocardiograms, NEREYDA, and DC cardioversion. According the patient she has never had a heart catheterization. Her echocardiogram from November 2017 showed intact LV function, mild LVH, RVSP of at least 35 mmHg. Patient underwent elective DC cardioversion which was successful initially, and then returned atrial flutter while she was intubated. They attempted a another 2 DC cardioversions which were transiently successful but then reverted back to atrial flutter. She was treated with rate control medications and anticoagulation therapy. And was awaiting atrial flutter ablation at an outside facility. Apparently the patient was doing fairly well at home but then developed palpitations, shortness of breath, and rapid ventricular response. The patient sought medical attention where an EKG was performed which showed atrial flutter with rapid ventricular response. She was placed on a Cardizem drip with no significant reduction in her heart rate. Repeat chest x-ray demonstrated a very large left pleural effusion, compressing about half the thoracic cavity. No pneumothorax noted. This looks about the same after her recent thoracentesis on 02/07/18. Currently the patient is sitting up in a chair, no acute distress. [] Past Medical History Allergies/Adverse Reactions: Allergies aspirin [ASA] Adverse Reaction (Verified 02/04/18 20:59) stomach burning and sick to stomach propoxyphene HCl [From Darvon] Adverse Reaction (Verified 02/04/18 20:59) i get dizzy and pass out Home Medications: Ambulatory Orders Medication Instructions Recorded Calcium Carbonate/Vitamin D3 1 ea PO DAILY 11/14/17 [Calcium 500+D Tablet Chew] acetaminophen 500 mg tablet 1,000 mg PO Q6H PRN tab 12/01/17 Lorazepam [Ativan] 0.5 mg PO Q6H PRN PRN #14 tab 12/05/17 Metoprolol Tartrate [Lopressor 50 mg PO BID #60 tab 12/05/17 (beta maeve)] Pantoprazole Sodium [Protonix] 20 mg PO DAILY #30 tab 12/05/17 Rivaroxaban [Xarelto] 20 mg PO DAILY@1800 #30 tab 12/05/17 albuterol sulfate 2.5 mg/3 mL 2.5 mg INHALATION Q4H PRN #180 vial 01/04/18 (0.083 %) solution for nebulization albuterol sulfate HFA 90 2 puff INHALATION Q4H PRN #18 g 01/04/18 mcg/actuation aerosol inhaler Diltiazem [Cardizem] 60 mg PO TID 02/04/18 Omeprazole [Prilosec] 20 mg PO DAILY 02/04/18 Past Medical History (Chronic Problems): Chronic Problems (Last Reviewed 02/04/18 @ 20:20 by Wyatt Lora MD) Chronic obstructive pulmonary disease (Chronic) Morbid obesity (Chronic) HTN (hypertension) (Chronic) GERD (gastroesophageal reflux disease) (Chronic) Surgical History: hysterectomy - total Psychiatric History: No pertinent psych hx 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: No pertinent 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 CHARGE ENTRY 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 - *Family History Maternal Family History: Family History (Last Reviewed 02/04/18 @ 20:20 by Wyatt Lora MD) Mother Heart disease Father Heart disease History Items: Heart Disease Paternal Family History: Family History (Last Reviewed 02/04/18 @ 20:20 by Wyatt Lora MD) Mother Heart disease Father Heart disease History Items: Heart Disease Lives: Spouse/ Significant Other Smoking Status: Former smoker Alcohol: None Review of Systems - Review of Systems General: Denies: Fever, Night Sweats, Fatigue Cardiovascular: Reports: Shortness of Breath, Shortness of Breath at Rest, Orthopnea, PND, Peripheral Edema. Denies: Chest Discomfort, Palpitations, Lightheadedness, Dizziness, Near Syncope, Syncope Respiratory: Denies: Cough, Sputum Production, Hemoptysis Gastrointestinal: Denies: Hematemesis, Hematochezia, Melena Genitourinary: Denies: Dysuria, Hematuria Skin: Denies: Rash Subjectve: Patient sitting in a chair, no acute distress, on Cardizem drip. Objective: Vital Signs Temp Pulse Resp BP Pulse Ox 97.3 F L 109 H 23 H 103/70 96 02/10/18 11:00 02/10/18 11:00 02/10/18 11:00 02/10/18 11:00 02/10/18 11:00 Oxygen Flow Rate (L/min) 4 Oxygen Delivery Method Nasal Cannula Weight: 333 lb 12.478 oz Body Mass Index (BMI) 28.0 Intake and Output for Last 24 Hours 02/08/18 02/09/18 02/10/18 23:59 23:59 23:59 Intake Total 960 / 960 1034 / 1034 56 / 56 Output Total 5275 / 5275 6075 / 6075 2074 / 2074 Balance -4315 / -4315 -5041 / -504 -2018 / General: Awake, Alert, Oriented x 3 HEENT: PERRL, EOMI, Sclera Non Icteric Neck: Supple, Good ROM, No Lymph Node Enlargement Lungs: Diminished Left Base, Dullness to Percussion-Left Cardiovascular: Irregular Rhythm, Normal S1, Normal S2, No Murmurs, No Rubs, No Gallops Vascular: No Carotid Bruits, Normal Femoral Pulses, Normal Radial Pulses, Normal Dorsalis Pedal Pulse, Normal Posterior Tibial Pulses Abdomen: Bowel Sounds Present, Soft, Non Tender, No HSM, No Organomegaly Extremities: No Cyanosis, No Clubbing, Bilateral Edema +2 Neurological: No Focal Motor or Sensory Deficit 02/10/18 06:00: WBC 7.5, RBC 4.19 L, Hgb 12.1, Hct 39.6, MCV 94.5, MCH 28.9, MCHC 30.6 L, RDW 13.7, RDW Differential 45.3 H, Plt Count 170, MPV 10.4, Immature Gran % (Auto) 0.100, Neut % (Auto) 67.5, Lymph % (Auto) 17.4 L, [place] % (Auto) 11.8 H, Eos % (Auto) 3.1, Baso % (Auto) 0.1, Absolute Neuts (auto) 5.1, Total Counted Not Reportable 02/10/18 06:00: Sodium 138, Potassium 3.4 L, Chloride 96 L, Carbon Dioxide 35.0 H, Anion Gap 7, BUN 20 H, Creatinine 1.02, Est GFR (MDRD) Af Amer 69, Est GFR (MDRD) Non-Af 57 L, BUN/Creatinine Ratio 19.6, Glucose 103, Calcium 9.6, Phosphorus 4.4, Magnesium 2.0, Total Bilirubin 0.70 Rhythm: EKG: ECHO: Stress Test: Cardiac Cath: PCI: CT Surgery: Holter monitor: EPS: PPM: CXR: Chest CT Scan: Assessment/Plan 1. Atrial flutter: The patient presents with recurrent atrial flutter and rapid ventricular response superimposed upon a very large left pleural effusion which appears to have evolved since her recent admission for pneumonia in November 2017. A CAT scan done around that time showed bilateral small pleural effusions, but the patient has now had worsening left pleural effusion which may have been a result of her recent pneumonic process. An attempt was made for a left-sided thoracentesis on 02/07/18 which removed about 150 mL of fluid without a lot of improvement. Would recommend repeating her CAT scan to determine if she has a loculated pleural effusion that may require surgical debridement and/or a chest tube at an outside facility. In the meantime I recommend initiating an amiodarone drip per protocol, in addition to her Cardizem drip. Patient has known COPD, and bilateral decrease in her DLCO by pulmonary function test although this may have been superimposed upon congestive heart failure as well. Recommend using amiodarone in the short-term in order to gain heart rate control and possibly assist with DC cardioversion once her pleural effusion has resolved. Would not attempt DC cardioversion unless emergent until after her left pleural effusion has resolved. I do not believe her heart rate will improve until after we have removed the fluid, so plans may be made to transfer the patient to a tertiary care center for further evaluation. Would recommend holding her anticoagulation at this time and she will require several days off of it should she require a chest tube and/or surgical debridement depending upon the outcome of the CT scan. We may be able to take advantage of performing a left and right heart catheterization at that time. When she has been off her anticoagulation for 2 days we can replace this with subcu Lovenox 1 mg/kg subcu twice daily. For the time being I am in agreement with IV diuretic therapy to assist with pleural effusion resolution, recommend keeping her potassium above 4.0 and her magnesium of 2.0 during this process. In addition I recommend that she undergo a CT scan In addition I recommend she undergo a CT scan to determine if she has a loculated pleural effusion that may require surgical debridement. 2. COPD: The patient has a history of COPD and decreased DLCO. She is a patient of Dr. Tovar. 3. Recommend Arthur bandages for her lower extremity edema to facilitate venous return. Patient will most likely require a left and right heart catheterization once her Eliquis has worn off. 4. Thank you very much for the opportunity to participate in the cardiac care of your patient. Consultation took place between 9:30 AM and 10:05 AM. Code Visit Inpatient E&M: 29015 Init Hosp L2
--- NOTE | 2018-02-10 11:53 | CT_ITS ---
STUDY: CT CHEST WITH CONTRAST REASON FOR EXAM: Female, 67 years old. PLEURAL EFFUSION NOT RESOLVING, HX-HTN. RADIATION DOSAGE (If Supplied By Facility): CTDIvol = ( 21.18 ) mGy, DLP = ( 782.91 ) mGycm TECHNIQUE: Transaxial imaging was performed following intravenous administration of 100 ml of Isovue 300 contrast material. # of Images: 839 Individualized dose optimization techniques were used for this CT. COMPARISON: February 10, 2018 chest x-ray FINDINGS: There is a large left pleural effusion and atelectasis. There is trace right pleural effusion and minimal atelectasis. The heart is enlarged Normal mediastinum. Normal hilar regions. Normal enhanced pulmonary arteries. Normal aorta arch and descending thoracic aorta. Normal osseous structures. There is no demonstrated abnormality of the visualized upper abdomen. CT/Chest WITH Contrast IMPRESSION: Large left pleural effusion. Small right pleural effusion. Cardiomegaly. Electronically Signed: Sunny Chung MD at 14:03 EDT Tel , Service support ,
--- NOTE | 2018-02-10 15:52 | PCM.PN.HOSP ---
Patient Problems: Active and Suspected Problems (Last Reviewed 02/04/18 @ 20:20 by Wyatt Lora MD) Heart failure (Acute) Subjective: Patient continues to go in and out of atrial fibrillation, will try again IV dose of Lopressor, give on p.o. Lopressor, but may have to start a Cardizem drip, as patient's atrial fibrillation with RVR seems to be resistant will go ahead and consult cardiology in the a.m. Patient has diuresed quite significant amount, however still has lower extremity edema and shortness of breath. I have spoken with Dr. King have read Dr. Mojica's note. Patient still is volume overloaded with significant amount of fluid within the left lung, Dr. Mojica has already added the Diamox as suggested by Dr. King in early discussion this morning. CT scan of the chest shows large volume within the left lung. Dr. Mojica does not believe heart rate can be controlled until fluid is removed. As we do not do chest tubes at this institution have a call out to the [facility] for possible transfer for cardiothoracic surgeon to evaluate for possible chest tube. I have explained this to the patient, patient states that she is okay with this. Patient is still diuresis about 3 L so far, with oral medications, still short of breath and tachycardic despite both Cardizem and amiodarone drips. Appreciate cardiology and Dr. King. Will try to transition patient to a tertiary institution to see if drainage of pleural effusion of the left left lung possibly requiring VATS is necessary at a tertiary care center. Patient currently still short of breath, otherwise is concerned about her heart, has some anxiety. Vitals/I&O's: Vital Signs Temp Pulse Resp BP Pulse Ox 97.3 F L 111 H 28 H 128/83 H 92 02/10/18 11:00 02/10/18 15:00 02/10/18 12:15 02/10/18 12:15 02/10/18 12:15 Oxygen Flow Rate (L/min) 4 Oxygen Delivery Method Nasal Cannula Weight: 151.4 kg Body Mass Index (BMI) 28.0 Intake and Output for Last 24 Hours 02/08/18 02/09/18 02/10/18 23:59 23:59 23:59 Intake Total 960 / 960 1034 / 1034 236 / 236 Output Total 5275 / 5275 6075 / 6075 3575 / 3575 Balance -4315 / -4315 -5041 / -5041 -3339 / -3339 General: Alert, Oriented x3, Cooperative HEENT: Atraumatic, PERRLA, EOMI Oral: Moist Mucosa, No Gingival or Mucosal Lesions/ Ulcerations Neck: Supple, No JVD, Trachea Midline Lungs: Diminished - Severely diminished breaths in bilateral lower lungs left greater than right, Rales, Short of Breath Cardiovascular: Normal S1, Normal S2, Irregular Rate, Tachycardic Abdomen: Bowel Sounds Present, Soft, Non Tender, Non-Distended Extremities: No clubbing, No cyanosis, Edema Skin: No breakdown, - - Redness of the lower extremities with weeping Musculoskeletal: No Tenderness to Palpation of Joints or Extremities Lymphatic: No Cervical, Supraclavicular, or Inguinal Adenopathy Neurological: Cranial nerves II-XII grossly intact, Neuro grossly intact Psych/Mental Status: Normal Affect, Anxious, Alert and oriented to time, place, person, mood and affect Microbiology Past 72 Hours 02/07/18 15:24 Fluid - Pleural (Lung) Gram Stain - Final 02/07/18 15:24 Fluid - Pleural (Lung) Body Fluid Culture - Preliminary No growth-Final to follow 02/07/18 15:24 Fluid - Pleural (Lung) Anaerobic Culture - Preliminary No growth in 48 hours. 02/07/18 11:58 Sputum, Expectorated/Coughed Gram Stain - Final 02/07/18 11:58 Sputum, Expectorated/Coughed Respiratory Culture - Final Mixed normal respiratory lauren. No Streptococcus pneumoniae, beta-hemolytic Streptococcus or Staphylococcus aureus isolated. Laboratory Results 02/10/18 06:00: WBC 7.5, RBC 4.19 L, Hgb 12.1, Hct 39.6, MCV 94.5, MCH 28.9, MCHC 30.6 L, RDW 13.7, RDW Differential 45.3 H, Plt Count 170, MPV 10.4, Immature Gran % (Auto) 0.100, Neut % (Auto) 67.5, Lymph % (Auto) 17.4 L, [place] % (Auto) 11.8 H, Eos % (Auto) 3.1, Baso % (Auto) 0.1, Absolute Neuts (auto) 5.1, Absolute Lymphs (auto) 1.31, Total Counted Not Reportable 02/10/18 06:00: Sodium 138, Potassium 3.4 L, Chloride 96 L, Carbon Dioxide 35.0 H, Anion Gap 7, BUN 20 H, Creatinine 1.02, Estim Creat Clear Calc 43.06, Est GFR (MDRD) Af Amer 69, Est GFR (MDRD) Non-Af 57 L, BUN/Creatinine Ratio 19.6, Glucose 103, Calcium 9.6, Phosphorus 4.4, Magnesium 2.0, Total Bilirubin 0.70, AST 16, ALT 25, Alkaline Phosphatase 91, Total Protein 6.7, Albumin 3.4, Globulin 3.3, Albumin/Globulin Ratio 1.0 Current Medications Acetaminophen (Tylenol) 650 mg PO Q6H PRN PRN PRN Reason: Mild Pain (scale 0-3)/T>100.7 Acetazolamide (Diamox) 125 mg PO BIDCM [facility] Albuterol Sulfate (Ventolin Aerosols) 2.5 mg INHALATION Q2H PRN PRN PRN Reason: SHORTNESS OF BREATH Albuterol/Ipratropium (Duoneb) 3 ml INHALATION Q4H.RT [facility] Last Admin: 02/10/18 15:02 Dose: 3 ml Bisacodyl (Dulcolax) 5 mg PO DAILY PRN PRN PRN Reason: Constipation Last Admin: 02/06/18 17:38 Dose: 5 mg Calamine/Phenol (Calmoseptine Ointment) 1 applic TOPICAL 4X/DAY PRN; Protocol PRN Reason: skin irritation Calcium/Vitamin D (Os-Jose 500mg + D) 1 tablet PO DAILY [facility] Last Admin: 02/10/18 09:39 Dose: 1 tablet Furosemide (Lasix) 40 mg PO BID@1000,1800 [facility] Guaifenesin (Mucinex) 600 mg PO BID [facility] Last Admin: 02/10/18 09:39 Dose: 600 mg Diltiazem HCl 125 mg/ Dextrose 125 mls @ 5 mls/hr IV .Q25H PRN PRN Reason: CARDIAC ARRYTHMIA Last Admin: 02/10/18 11:50 Dose: 5 mls/hr Amiodarone HCl 360 mg/ (Dextrose) 200 mls @ 33.33 mls/hr CONT INF .Q6H1M [facility] Stop: 02/10/18 18:00 Last Admin: 02/10/18 12:51 Dose: 33.33 mls/hr Amiodarone HCl 360 mg/ (Dextrose) 200 mls @ 16.67 mls/hr CONT INF .Q12H1M [facility] Stop: 02/11/18 11:59 Levofloxacin (Levaquin Tablet) 750 mg PO DAILY@0600 [facility] Last Admin: 02/10/18 05:28 Dose: 750 mg Lorazepam (Ativan) 0.5 mg PO Q6H PRN PRN PRN Reason: ANXIETY Last Admin: 02/10/18 03:18 Dose: 0.5 mg Magnesium Hydroxide (Milk Of Magnesia) 30 ml PO DAILY PRN PRN Reason: Constipation Last Admin: 02/07/18 16:56 Dose: 30 ml Metoprolol Tartrate (Lopressor (Beta [place])) 50 mg PO BID [facility] Last Admin: 02/10/18 09:39 Dose: 50 mg Metoprolol Tartrate (Lopressor (Beta [place])) 5 mg IV Q6 PRN PRN Reason: tachycardia Last Admin: 02/09/18 08:07 Dose: 5 mg Nystatin (Mycostatin Powder) 1 applic TOPICAL BID [facility]; Protocol Last Admin: 02/10/18 09:40 Dose: 1 applic Ondansetron HCl (Zofran) 4 mg IV Q8H PRN PRN PRN Reason: Nausea Pantoprazole Sodium (Protonix) 20 mg PO DAILY [facility] Last Admin: 02/10/18 09:39 Dose: 20 mg Potassium Chloride (K-Dur) 20 meq PO DAILYCM [facility] Sodium Chloride () 5 - 30 ml IV UD PRN PRN Reason: SALINE FLUSH Last Admin: 02/10/18 09:47 Dose: 10 ml Sodium Chloride (Esmeralda Nasal [place]) 2 spray NASAL TID PRN PRN PRN Reason: NASAL DRYNESS Last Admin: 02/09/18 05:46 Dose: 2 spray Zolpidem Tartrate (Ambien (Generic)) 5 mg PO QHS PRN PRN PRN Reason: INSOMNIA Medical Necessity - Tobacco Use Smoking Status: Former smoker Assessment/Plan All Active Problems (Last Reviewed 02/04/18 @ 20:20 by Wyatt Lora MD) Heart failure (Acute) CECILIA (obstructive sleep apnea) (Acute) Shortness of breath (Acute) Atrial flutter with rapid ventricular response (Acute) Healthcare associated bacterial pneumonia (Acute) Acute kidney injury (Acute) Chest pain (Acute) Acute respiratory failure (Acute) Healthcare-associated pneumonia (Acute) Atrial flutter (Acute) Patient is a 67-year-old female with a history of morbid obesity with BMI of 63, chronic diastolic CHF/HFpEF, hypertension, GERD, history of atrial flutter on chronic anticoagulation, CECILIA and COPD on supplemental O2 of 1-2 L daily who was admitted for acute on chronic respiratory failure. Patient was noted to be in decompensated heart failure. Acute on chronic hypoxemic respiratory failure, resolved Related to decompensated heart failure +/- PNA. Continue Levaquin patient still has florid failure, the CT scan of the chest reveals large pleural effusion on the left even though patient had ultrasound thoracentesis several days ago. Cardiology was consulted and has placed patient on amiodarone drip as well as Cardizem drip however believe that patient will not improve until fluid was removed and will need possible VATS or chest tube. As we do not have the ability to do so. Have contacted the [facility] for possible cardiothoracic intervention and further management. They have accepted the patient and patient will be transferred when bed available. We will try to get all imaging on a CD to go with patient. Patient is made aware of this. Acute on chronic diastolic CHF/HFpEF Patient has diuresed approximately 20 L in the 6 days that she has been here without really any improvement. Patient is still short of breath requiring 4 L nasal clan of oxygen and satting in the low 90s and BiPAP. Further interventions to be done by [facility] appreciate their help Suspected PNA Chest x-ray with new upper lobe infiltrate, suspicious for pneumonia. Last hospitalization was in November, which may qualify for HCAP, however patient appears to be responding appropriately to oral Levaquin. Continue with current antibiotic. Blood culture pending and sputum showing normal lauren. Chronic atrial flutter status post cardioversion, on anticoagulation Currently has been on Xarelto, has been taken off for possible procedure. Cardiology states he should be off her anticoagulation for 2 days for possible left and right heart catheterizations and can replace with Lovenox 1 mg/kg subcu twice daily. We will continue to hold until patient can be transferred to tertiary facility and interventions can be done patient had dose today. CECILIA Continue with BiPAP nightly. COPD, on supplemental O2 of 2 L daily Is still requiring 4 L nasal cannula oxygen and desats quickly. May be due to the fluids possible loculations in the left lung. Her baseline of 2 L daily. Morbid obesity, BMI of 63 Aware. UTI On Levaquin Hypokalemia Repeat is supple [place] with 40 mEq today DVT prophylaxis Obviously on Xarelto discontinued by cardiology this morning diet 1500 fluid restriction CODE STATUS full Disposition due to possible large loculated, and need for possible VATS versus chest tube patient will be transferred to the [facility] currently on amiodarone drip and Cardizem drip. Patient will go to the medical ICU under the care of Dr. Mariano. Patient voices understanding. Chart is dictated with loss prevention agent software. Errors may occur in dictation that may change providers meaning. This note was generated with [employer]ik[employer] dictation software. It may contain incorrect words, spelling, and punctuation that were not noted in checking the note before signing.
--- NOTE | 2018-02-10 16:13 | PN_ITS ---
Patient Problems: Active and Suspected Problems (Last Reviewed 02/04/18 @ 20:20 by Wyatt Lora MD) Heart failure (Acute) Subjective: Patient continues to go in and out of atrial fibrillation, will try again IV dose of Lopressor, give on p.o. Lopressor, but may have to start a Cardizem drip, as patient's atrial fibrillation with RVR seems to be resistant will go ahead and consult cardiology in the a.m. Patient has diuresed quite significant amount, however still has lower extremity edema and shortness of breath. I have spoken with Dr. King have read Dr. Mojica's note. Patient still is volume overloaded with significant amount of fluid within the left lung, Dr. Mojica has already added the Diamox as suggested by Dr. King in early discussion this morning. CT scan of the chest shows large volume within the left lung. Dr. Mojica does not believe heart rate can be controlled until fluid is removed. As we do not do chest tubes at this institution have a call out to the [facility] for possible transfer for cardiothoracic surgeon to evaluate for possible chest tube. I have explained this to the patient, patient states that she is okay with this. Patient is still diuresis about 3 L so far, with oral medications, still short of breath and tachycardic despite both Cardizem and amiodarone drips. Appreciate cardiology and Dr. King. Will try to transition patient to a tertiary institution to see if drainage of pleural effusion of the left left lung possibly requiring VATS is necessary at a tertiary care center. Patient currently still short of breath, otherwise is concerned about her heart, has some anxiety. Vitals/I&O's: Vital Signs Temp Pulse Resp BP Pulse Ox 97.3 F L 111 H 28 H 128/83 H 92 02/10/18 11:00 02/10/18 15:00 02/10/18 12:15 02/10/18 12:15 02/10/18 12:15 Oxygen Flow Rate (L/min) 4 Oxygen Delivery Method Nasal Cannula Weight: 151.4 kg Body Mass Index (BMI) 28.0 Intake and Output for Last 24 Hours 02/08/18 02/09/18 02/10/18 23:59 23:59 23:59 Intake Total 960 / 960 1034 / 1034 236 / 236 Output Total 5275 / 5275 6075 / 6075 3575 / 3575 Balance -4315 / -4315 -5041 / -5041 -3339 / -3339 General: Alert, Oriented x3, Cooperative HEENT: Atraumatic, PERRLA, EOMI Oral: Moist Mucosa, No Gingival or Mucosal Lesions/ Ulcerations Neck: Supple, No JVD, Trachea Midline Lungs: Diminished - Severely diminished breaths in bilateral lower lungs left greater than right, Rales, Short of Breath Cardiovascular: Normal S1, Normal S2, Irregular Rate, Tachycardic Abdomen: Bowel Sounds Present, Soft, Non Tender, Non-Distended Extremities: No clubbing, No cyanosis, Edema Skin: No breakdown, - - Redness of the lower extremities with weeping Musculoskeletal: No Tenderness to Palpation of Joints or Extremities Lymphatic: No Cervical, Supraclavicular, or Inguinal Adenopathy Neurological: Cranial nerves II-XII grossly intact, Neuro grossly intact Psych/Mental Status: Normal Affect, Anxious, Alert and oriented to time, place, person, mood and affect Microbiology Past 72 Hours 02/07/18 15:24 Fluid - Pleural (Lung) Gram Stain - Final 02/07/18 15:24 Fluid - Pleural (Lung) Body Fluid Culture - Preliminary No growth-Final to follow 02/07/18 15:24 Fluid - Pleural (Lung) Anaerobic Culture - Preliminary No growth in 48 hours. 02/07/18 11:58 Sputum, Expectorated/Coughed Gram Stain - Final 02/07/18 11:58 Sputum, Expectorated/Coughed Respiratory Culture - Final Mixed normal respiratory lauren. No Streptococcus pneumoniae, beta-hemolytic Streptococcus or Staphylococcus aureus isolated. Laboratory Results 02/10/18 06:00: WBC 7.5, RBC 4.19 L, Hgb 12.1, Hct 39.6, MCV 94.5, MCH 28.9, MCHC 30.6 L, RDW 13.7, RDW Differential 45.3 H, Plt Count 170, MPV 10.4, Immature Gran % (Auto) 0.100, Neut % (Auto) 67.5, Lymph % (Auto) 17.4 L, [place] % (Auto) 11.8 H, Eos % (Auto) 3.1, Baso % (Auto) 0.1, Absolute Neuts (auto) 5.1, Absolute Lymphs (auto) 1.31, Total Counted Not Reportable 02/10/18 06:00: Sodium 138, Potassium 3.4 L, Chloride 96 L, Carbon Dioxide 35.0 H, Anion Gap 7, BUN 20 H, Creatinine 1.02, Estim Creat Clear Calc 43.06, Est GFR (MDRD) Af Amer 69, Est GFR (MDRD) Non-Af 57 L, BUN/Creatinine Ratio 19.6, Glucose 103, Calcium 9.6, Phosphorus 4.4, Magnesium 2.0, Total Bilirubin 0.70, AST 16, ALT 25, Alkaline Phosphatase 91, Total Protein 6.7, Albumin 3.4, Globulin 3.3, Albumin/Globulin Ratio 1.0 Current Medications Acetaminophen (Tylenol) 650 mg PO Q6H PRN PRN PRN Reason: Mild Pain (scale 0-3)/T>100.7 Acetazolamide (Diamox) 125 mg PO BIDCM [facility] Albuterol Sulfate (Ventolin Aerosols) 2.5 mg INHALATION Q2H PRN PRN PRN Reason: SHORTNESS OF BREATH Albuterol/Ipratropium (Duoneb) 3 ml INHALATION Q4H.RT [facility] Last Admin: 02/10/18 15:02 Dose: 3 ml Bisacodyl (Dulcolax) 5 mg PO DAILY PRN PRN PRN Reason: Constipation Last Admin: 02/06/18 17:38 Dose: 5 mg Calamine/Phenol (Calmoseptine Ointment) 1 applic TOPICAL 4X/DAY PRN; Protocol PRN Reason: skin irritation Calcium/Vitamin D (Os-Jose 500mg + D) 1 tablet PO DAILY [facility] Last Admin: 02/10/18 09:39 Dose: 1 tablet Furosemide (Lasix) 40 mg PO BID@1000,1800 [facility] Guaifenesin (Mucinex) 600 mg PO BID [facility] Last Admin: 02/10/18 09:39 Dose: 600 mg Diltiazem HCl 125 mg/ Dextrose 125 mls @ 5 mls/hr IV .Q25H PRN PRN Reason: CARDIAC ARRYTHMIA Last Admin: 02/10/18 11:50 Dose: 5 mls/hr Amiodarone HCl 360 mg/ (Dextrose) 200 mls @ 33.33 mls/hr CONT INF .Q6H1M [facility] Stop: 02/10/18 18:00 Last Admin: 02/10/18 12:51 Dose: 33.33 mls/hr Amiodarone HCl 360 mg/ (Dextrose) 200 mls @ 16.67 mls/hr CONT INF .Q12H1M [facility] Stop: 02/11/18 11:59 Levofloxacin (Levaquin Tablet) 750 mg PO DAILY@0600 [facility] Last Admin: 02/10/18 05:28 Dose: 750 mg Lorazepam (Ativan) 0.5 mg PO Q6H PRN PRN PRN Reason: ANXIETY Last Admin: 02/10/18 03:18 Dose: 0.5 mg Magnesium Hydroxide (Milk Of Magnesia) 30 ml PO DAILY PRN PRN Reason: Constipation Last Admin: 02/07/18 16:56 Dose: 30 ml Metoprolol Tartrate (Lopressor (Beta [place])) 50 mg PO BID [facility] Last Admin: 02/10/18 09:39 Dose: 50 mg Metoprolol Tartrate (Lopressor (Beta [place])) 5 mg IV Q6 PRN PRN Reason: tachycardia Last Admin: 02/09/18 08:07 Dose: 5 mg Nystatin (Mycostatin Powder) 1 applic TOPICAL BID [facility]; Protocol Last Admin: 02/10/18 09:40 Dose: 1 applic Ondansetron HCl (Zofran) 4 mg IV Q8H PRN PRN PRN Reason: Nausea Pantoprazole Sodium (Protonix) 20 mg PO DAILY [facility] Last Admin: 02/10/18 09:39 Dose: 20 mg Potassium Chloride (K-Dur) 20 meq PO DAILYCM [facility] Sodium Chloride () 5 - 30 ml IV UD PRN PRN Reason: SALINE FLUSH Last Admin: 02/10/18 09:47 Dose: 10 ml Sodium Chloride ([place] Nasal [place]) 2 spray NASAL TID PRN PRN PRN Reason: NASAL DRYNESS Last Admin: 02/09/18 05:46 Dose: 2 spray Zolpidem Tartrate (Ambien (Generic)) 5 mg PO QHS PRN PRN PRN Reason: INSOMNIA Medical Necessity - Tobacco Use Smoking Status: Former smoker Assessment/Plan All Active Problems (Last Reviewed 02/04/18 @ 20:20 by Wyatt Lora MD) Heart failure (Acute) CECILIA (obstructive sleep apnea) (Acute) Shortness of breath (Acute) Atrial flutter with rapid ventricular response (Acute) Healthcare associated bacterial pneumonia (Acute) Acute kidney injury (Acute) Chest pain (Acute) Acute respiratory failure (Acute) Healthcare-associated pneumonia (Acute) Atrial flutter (Acute) Patient is a 67-year-old female with a history of morbid obesity with BMI of 63, chronic diastolic CHF/HFpEF, hypertension, GERD, history of atrial flutter on chronic anticoagulation, CECILIA and COPD on supplemental O2 of 1-2 L daily who was admitted for acute on chronic respiratory failure. Patient was noted to be in decompensated heart failure. Acute on chronic hypoxemic respiratory failure, resolved Related to decompensated heart failure +/- PNA. Continue Levaquin patient still has florid failure, the CT scan of the chest reveals large pleural effusion on the left even though patient had ultrasound thoracentesis several days ago. Cardiology was consulted and has placed patient on amiodarone drip as well as Cardizem drip however believe that patient will not improve until fluid was removed and will need possible VATS or chest tube. As we do not have the ability to do so. Have contacted the [facility] for possible cardiothoracic intervention and further management. They have accepted the patient and patient will be transferred when bed available. We will try to get all imaging on a CD to go with patient. Patient is made aware of this. Acute on chronic diastolic CHF/HFpEF Patient has diuresed approximately 20 L in the 6 days that she has been here without really any improvement. Patient is still short of breath requiring 4 L nasal clan of oxygen and satting in the low 90s and BiPAP. Further interventions to be done by [facility] appreciate their help Suspected PNA Chest x-ray with new upper lobe infiltrate, suspicious for pneumonia. Last hospitalization was in November, which may qualify for HCAP, however patient appears to be responding appropriately to oral Levaquin. Continue with current antibiotic. Blood culture pending and sputum showing normal lauren. Chronic atrial flutter status post cardioversion, on anticoagulation Currently has been on Xarelto, has been taken off for possible procedure. Cardiology states he should be off her anticoagulation for 2 days for possible left and right heart catheterizations and can replace with Lovenox 1 mg/kg subcu twice daily. We will continue to hold until patient can be transferred to tertiary facility and interventions can be done patient had dose today. CECILIA Continue with BiPAP nightly. COPD, on supplemental O2 of 2 L daily Is still requiring 4 L nasal cannula oxygen and desats quickly. May be due to the fluids possible loculations in the left lung. Her baseline of 2 L daily. Morbid obesity, BMI of 63 Aware. UTI On Levaquin Hypokalemia Repeat is supple [place] with 40 mEq today DVT prophylaxis Obviously on Xarelto discontinued by cardiology this morning diet 1500 fluid restriction CODE STATUS full Disposition due to possible large loculated, and need for possible VATS versus chest tube patient will be transferred to the [facility] currently on amiodarone drip and Cardizem drip. Patient will go to the medical ICU under the care of Dr. Mariano. Patient voices understanding. Chart is dictated with medical psychotherapist software. Errors may occur in dictation that may change providers meaning. This note was generated with [employer] dictation software. It may contain incorrect words, spelling, and punctuation that were not noted in checking the note before signing.
--- NOTE | 2018-02-10 16:29 | DCINST_ITS ---
- Discharge Diagnoses Current Active Problems: Current Active and Chronic Problems (Last Reviewed 02/04/18 @ 20:20 by Wyatt Lora MD) Heart failure (Acute) You will use the following diet at home:: Cardiac, Fluid restricted (specify 2000 mls, 1500 mls) - 1500 fluid restriction Your food should be the consistency of: Regular Your liquids should be the consistency of: Regular/Thin Discharge Activity: Return to Normal Activity Call your doctor if you observe: Fever of 101 or Higher, Coldness, Increased Pain, Shortness of breath, Dizziness, Chest pain, Calf discomfort Allergies/Adverse Reactions: Allergies aspirin [ASA] Adverse Reaction (Verified 02/04/18 20:59) stomach burning and sick to stomach propoxyphene HCl [From Darvon] Adverse Reaction (Verified 02/04/18 20:59) i get dizzy and pass out Medications to take at Discharge Calcium Carbonate/Vitamin D3 [Calcium 500+D Tablet Chew] 1 ea PO DAILY 11/14/17 acetaminophen 500 mg tablet 1,000 mg PO Q6H PRN tab 12/01/17 Lorazepam [Ativan] 0.5 mg PO Q6H PRN PRN #14 tab 12/05/17 Metoprolol Tartrate [Lopressor (beta maeve)] 50 mg PO BID #60 tab 12/05/17 Pantoprazole Sodium [Protonix] 20 mg PO DAILY #30 tab 12/05/17 albuterol sulfate 2.5 mg/3 mL (0.083 %) solution for nebulization 2.5 mg INHALATION Q4H PRN #180 vial 01/04/18 albuterol sulfate HFA 90 mcg/actuation aerosol inhaler 2 puff INHALATION Q4H PRN #18 g 01/04/18 Diltiazem [Cardizem] 60 mg PO TID 02/04/18 AcetaAZOLAMIDE [Diamox] 125 mg PO BIDCM tablet 02/10/18 Acetaminophen [Tylenol Tablet] 650 mg PO Q6H PRN PRN tablet 02/10/18 Albuterol Aerosols [Ventolin Aerosols] 2.5 mg INHALATION Q2H PRN PRN vial.neb. 02/10/18 Amiodarone HCl/D5w [Amiodarone 450 mg/250 ml-D5w] 360 mg IV CONT #1 plast..bag 02/10/18 Bisacodyl [Dulcolax] 5 mg PO DAILY PRN PRN tablet 02/10/18 Calcium Carb/Vitamin D [Os-Jose 500MG + D] 1 tablet PO DAILY tablet 02/10/18 Furosemide [Lasix] 40 mg PO BID@1000,1800 tablet 02/10/18 Guaifenesin [Mucinex] 600 mg PO BID tablet 02/10/18 Ipratropium/Albuterol Sulfate [Duoneb] 3 ml INHALATION Q4H.RT ampul.neb 02/10/18 Magnesium Hydroxide [Milk Of Magnesia] 30 ml PO DAILY PRN udc 02/10/18 Menthol/Lanolin/Calamine/Znox [Calmoseptine Ointment] 1 applic TOPICAL 4X/DAY PRN tube 02/10/18 Metoprolol Tartrate [Lopressor (beta maeve)] 50 mg PO BID tablet 02/10/18 Nystatin Powder [Mycostatin Powder] 1 applic TOPICAL BID bottle 02/10/18 Ondansetron [Zofran] 4 mg IV Q8H PRN PRN vial 02/10/18 Potassium Chloride [K-Dur] 20 meq PO DAILYCM tablet 02/10/18 Sodium Chloride 0.65% [[place] Nasal [place]] 2 spray NASAL TID PRN PRN spray.btl 02/10/18 levoFLOXacin tablet [Levaquin tablet] 750 mg PO DAILY@0600 tablet 02/10/18 The following prescriptions were given: Amiodarone HCl/D5w [Amiodarone 450 mg/250 ml-D5w] 360 mg IV CONT #1 plast..bag Primary Care Physician: Alfonzo Cha MD [Primary Care Provider] - Please follow up with your Primary Care Physician in: 1-2 after dc Test Results: Test results from this visit will be discussed in further detail at your follow- up appointment, if applicable.
[2018-02-10] MEDS: AcetaZOLAMIDE 250 MG Tablet 125 MG PO (16:35)
--- NOTE | 2018-02-10 16:35 | PCM.DC.SUM ---
Discharge Date and Diagnosis - Problem List Patient Problems: Active and Suspected Problems (Last Reviewed 02/04/18 @ 20:20 by Wyatt Lora MD) Heart failure (Acute) Date of Admission: 02/04/18 Date of Discharge: 02/10/18 - When bed available at [facility] please give all imaging CDs - Primary Discharge Diagnosis Active and Suspected Problems (Last Reviewed 02/04/18 @ 20:20 by Wyatt Lora MD) Heart failure (Acute) - Secondary Discharge Diagnosis Chronic Problems (Last Reviewed 02/04/18 @ 20:20 by Wyatt Lora MD) Chronic obstructive pulmonary disease (Chronic) Morbid obesity (Chronic) HTN (hypertension) (Chronic) GERD (gastroesophageal reflux disease) (Chronic) Hospital Course and Treatment Imaging Results: [facility] Imaging Services [address] [place] [address] Chest WITH Contrast MR#: [id number] Acct: [id number] Name: YAO FLORES Rep #: [id number] : 1950 F 67 From: Sunny Chung PCP: Alfonzo Cha MD Status: ADM IN Study: Chest WITH Contrast Date of Exam: 02/10/18 Exam# [id number] Ordering Dr: Michele Mojica MD STUDY: CT CHEST WITH CONTRAST REASON FOR EXAM: Female, 67 years old. PLEURAL EFFUSION NOT RESOLVING, HX-HTN. RADIATION DOSAGE (If Supplied By Facility): CTDIvol = ( 21.18 ) mGy, DLP = ( 782.91 ) mGycm TECHNIQUE: Transaxial imaging was performed following intravenous administration of 100 ml of Isovue 300 contrast material. # of Images: 839 Individualized dose optimization techniques were used for this CT. COMPARISON: February 10, 2018 chest x-ray FINDINGS: There is a large left pleural effusion and atelectasis. There is trace right pleural effusion and minimal atelectasis. The heart is enlarged Normal mediastinum. Normal hilar regions. Normal enhanced pulmonary arteries. Normal aorta arch and descending thoracic aorta. Normal osseous structures. There is no demonstrated abnormality of the visualized upper abdomen. CT/Chest WITH Contrast IMPRESSION: Large left pleural effusion. Small right pleural effusion. Cardiomegaly. Electronically Signed: Sunny Chung MD at 14:03 EDT Tel , Service support , CC: Michele Mojica MD; Alfonzo Cha MD ~ Tooth Grinder: Signed Thoracentesis W US MR#: [id number] Acct: [id number] Name: YAO FLORES Rep #: [id number] : 1950 67 From: Lewis Aguirre MD PCP: Alfonzo Cha MD Status: ADM IN Study: Thoracentesis W Date of Exam: 02/07/18 Exam# [id number] Ordering Dr: Isabelle Martin MD PROCEDURE: ULTRASOUND GUIDED THORACENTESIS. DATE: February 07, 2013.. INDICATION: Female, 67 years old. Left pleural effusion. PHYSICIAN: Lewis Aguirre M.D. PROCEDURE: The risks, benefits, and alternatives to the procedure were explained to the patient. The specific risks of bleeding, infection, and pneumothorax requiring chest tube insertion were discussed and accepted. Written informed consent was obtained. Ultrasonographic evaluation of the left lower pleural space was carried out. An adequate pocket was identified. The patient was placed in the sitting, upright position. The overlying skin was prepped and draped in sterile fashion. 1% lidocaine was administered subcutaneously for local anesthesia. Under ultrasound guidance, a 5 Danish thoracentesis needle/catheter system was advanced into the left posterior lower pleural fluid collection. Approximately 150 mL of bloody fluid was drained. The catheter was removed, and a sterile dressing was applied. A specimen was collected and sent to the laboratory for analysis, as requested by the referring clinician. The patient tolerated the procedure well. A chest x-ray was ordered. US/Thoracentesis W US IMPRESSION: Ultrasound-guided left thoracentesis. Electronically Signed: Lewis Aguirre MD at 15:55 EDT Tel [phone], Service support , 02/10/18 11:53 Chest WITH Contrast [CT] Urgent 02/11/18 05:55 Chest 1 View (Portable) [RAD] AM (NON MEDS) Problem List (1) Heart failure Status: Acute (2) CECILIA (obstructive sleep apnea) Status: Acute (3) Shortness of breath Status: Acute (4) Atrial flutter with rapid ventricular response Status: Acute (5) Atrial flutter Status: Acute Qualifiers: Atrial flutter type: typical Qualified Code(s): I48.3 - Typical atrial flutter (6) HTN (hypertension) Status: Chronic Qualifiers: Reason for Consult Date of Consultation: 02/10/18 Reason for Consultation: Atrial flutter with rapid ventricular response, COPD, CHF. History of Present Illness: The patient is a 67 year old F morbidly obese, nondiabetic, patient of Dr. Hernandez's, who was recently admitted to [facility] around November 2017 with respiratory distress, requiring intubation, atrial flutter requiring NEREYDA guided DC cardioversion, and congestive heart failure symptoms. Recently patient underwent a left-sided thoracentesis on 02/07/18 with 150 cc of bloody fluid removed. Patient also has morbid obesity, diagnosed with COPD, and is currently on Xarelto therapy. She also has a history of obstructive sleep apnea and is compliant with her CPAP. The patient was seen by Dr. Hernandez in the hospital and underwent a fairly extensive cardiac evaluation including echocardiograms, NEREYDA, and DC cardioversion. According the patient she has never had a heart catheterization. Her echocardiogram from November 2017 showed intact LV function, mild LVH, RVSP of at least 35 mmHg. Patient underwent elective DC cardioversion which was successful initially, and then returned atrial flutter while she was intubated. They attempted a another 2 DC cardioversions which were transiently successful but then reverted back to atrial flutter. She was treated with rate control medications and anticoagulation therapy. And was awaiting atrial flutter ablation at an outside facility. Apparently the patient was doing fairly well at home but then developed palpitations, shortness of breath, and rapid ventricular response. The patient sought medical attention where an EKG was performed which showed atrial flutter with rapid ventricular response. She was placed on a Cardizem drip with no significant reduction in her heart rate. Repeat chest x-ray demonstrated a very large left pleural effusion, compressing about half the thoracic cavity. No pneumothorax noted. This looks about the same after her recent thoracentesis on 02/07/18. Currently the patient is sitting up in a chair, no acute distress. [] Past Medical History Allergies/Adverse Reactions: Allergies aspirin [ASA] Adverse Reaction (Verified 02/04/18 20:59) stomach burning and sick to stomach propoxyphene HCl [From Darvon] Adverse Reaction (Verified 02/04/18 20:59) i get dizzy and pass out Home Medications: Ambulatory Orders Medication Instructions Recorded Calcium Carbonate/Vitamin D3 1 ea PO DAILY 11/14/17 [Calcium 500+D Tablet Chew] acetaminophen 500 mg tablet 1,000 mg PO Q6H PRN tab 12/01/17 Lorazepam [Ativan] 0.5 mg PO Q6H PRN PRN #14 tab 12/05/17 Metoprolol Tartrate [Lopressor 50 mg PO BID #60 tab 12/05/17 (beta wallace)] Pantoprazole Sodium [Protonix] 20 mg PO DAILY #30 tab 12/05/17 Rivaroxaban [Xarelto] 20 mg PO DAILY@1800 #30 tab 12/05/17 albuterol sulfate 2.5 mg/3 mL 2.5 mg INHALATION Q4H PRN #180 vial 01/04/18 (0.083 %) solution for nebulization albuterol sulfate HFA 90 2 puff INHALATION Q4H PRN #18 g 01/04/18 mcg/actuation aerosol inhaler Diltiazem [Cardizem] 60 mg PO TID 02/04/18 Omeprazole [Prilosec] 20 mg PO DAILY 02/04/18 Past Medical History (Chronic Problems): Chronic Problems (Last Reviewed 02/04/18 @ 20:20 by Wyatt Lora MD) Chronic obstructive pulmonary disease (Chronic) Morbid obesity (Chronic) HTN (hypertension) (Chronic) GERD (gastroesophageal reflux disease) (Chronic) Surgical History: hysterectomy - total Psychiatric History: No pertinent psych hx SURVEILLANCE ANALYST History: No pertinent SURVEILLANCE ANALYST history - *Family History Maternal Family History: Family History (Last Reviewed 02/04/18 @ 20:20 by Wyatt Lora MD) Mother Heart disease Father Heart disease History Items: Heart Disease Paternal Family History: Family History (Last Reviewed 02/04/18 @ 20:20 by Wyatt Lora MD) Mother Heart disease Father Heart disease History Items: Heart Disease Lives: Spouse/ Significant Other Smoking Status: Former smoker Alcohol: None Review of Systems - Review of Systems General: Denies: Fever, Night Sweats, Fatigue Cardiovascular: Reports: Shortness of Breath, Shortness of Breath at Rest, Orthopnea, PND, Peripheral Edema. Denies: Chest Discomfort, Palpitations, Lightheadedness, Dizziness, Near Syncope, Syncope Respiratory: Denies: Cough, Sputum Production, Hemoptysis Gastrointestinal: Denies: Hematemesis, Hematochezia, Melena Genitourinary: Denies: Dysuria, Hematuria Skin: Denies: Rash Subjectve: Patient sitting in a chair, no acute distress, on Cardizem drip. Objective: Vital Signs Temp Pulse Resp BP Pulse Ox 97.3 F L 109 H 23 H 103/70 96 02/10/18 11:00 02/10/18 11:00 02/10/18 11:00 02/10/18 11:00 02/10/18 11:00 Oxygen Flow Rate (L/min) 4 Oxygen Delivery Method Nasal Cannula Weight: 333 lb 12.478 oz Body Mass Index (BMI) 28.0 Intake and Output for Last 24 Hours 02/08/18 02/09/18 02/10/18 23:59 23:59 23:59 Intake Total 960 / 960 1034 / 1034 56 / 56 Output Total 5275 / 5275 6075 / 6075 2074 / 2074 Balance -4315 / -4315 -5041 / -504 -2018 / General: Awake, Alert, Oriented x 3 HEENT: PERRL, EOMI, Sclera Non Icteric Neck: Supple, Good ROM, No Lymph Node Enlargement Lungs: Diminished Left Base, Dullness to Percussion-Left Cardiovascular: Irregular Rhythm, Normal S1, Normal S2, No Murmurs, No Rubs, No Gallops Vascular: No Carotid Bruits, Normal Femoral Pulses, Normal Radial Pulses, Normal Dorsalis Pedal Pulse, Normal Posterior Tibial Pulses Abdomen: Bowel Sounds Present, Soft, Non Tender, No HSM, No Organomegaly Extremities: No Cyanosis, No Clubbing, Bilateral Edema +2 Neurological: No Focal Motor or Sensory Deficit 02/10/18 06:00: WBC 7.5, RBC 4.19 L, Hgb 12.1, Hct 39.6, MCV 94.5, MCH 28.9, MCHC 30.6 L, RDW 13.7, RDW Differential 45.3 H, Plt Count 170, MPV 10.4, Immature Gran % (Auto) 0.100, Neut % (Auto) 67.5, Lymph % (Auto) 17.4 L, [place] % (Auto) 11.8 H, Eos % (Auto) 3.1, Baso % (Auto) 0.1, Absolute Neuts (auto) 5.1, Total Counted Not Reportable 02/10/18 06:00: Sodium 138, Potassium 3.4 L, Chloride 96 L, Carbon Dioxide 35.0 H, Anion Gap 7, BUN 20 H, Creatinine 1.02, Est GFR (MDRD) Af Amer 69, Est GFR (MDRD) Non-Af 57 L, BUN/Creatinine Ratio 19.6, Glucose 103, Calcium 9.6, Phosphorus 4.4, Magnesium 2.0, Total Bilirubin 0.70 Rhythm: EKG: ECHO: Stress Test: Cardiac Cath: PCI: CT Surgery: Holter monitor: EPS: PPM: CXR: Chest CT Scan: Assessment/Plan 1. Atrial flutter: The patient presents with recurrent atrial flutter and rapid ventricular response superimposed upon a very large left pleural effusion which appears to have evolved since her recent admission for pneumonia in November 2017. A CAT scan done around that time showed bilateral small pleural effusions, but the patient has now had worsening left pleural effusion which may have been a result of her recent pneumonic process. An attempt was made for a left-sided thoracentesis on 02/07/18 which removed about 150 mL of fluid without a lot of improvement. Would recommend repeating her CAT scan to determine if she has a loculated pleural effusion that may require surgical debridement and/or a chest tube at an outside facility. In the meantime I recommend initiating an amiodarone drip per protocol, in addition to her Cardizem drip. Patient has known COPD, and bilateral decrease in her DLCO by pulmonary function test although this may have been superimposed upon congestive heart failure as well. Recommend using amiodarone in the short-term in order to gain heart rate control and possibly assist with DC cardioversion once her pleural effusion has resolved. Would not attempt DC cardioversion unless emergent until after her left pleural effusion has resolved. I do not believe her heart rate will improve until after we have removed the fluid, so plans may be made to transfer the patient to a tertiary care center for further evaluation. Would recommend holding her anticoagulation at this time and she will require several days off of it should she require a chest tube and/or surgical debridement depending upon the outcome of the CT scan. We may be able to take advantage of performing a left and right heart catheterization at that time. When she has been off her anticoagulation for 2 days we can replace this with subcu Lovenox 1 mg/kg subcu twice daily. For the time being I am in agreement with IV diuretic therapy to assist with pleural effusion resolution, recommend keeping her potassium above 4.0 and her magnesium of 2.0 during this process. In addition I recommend that she undergo a CT scan In addition I recommend she undergo a CT scan to determine if she has a loculated pleural effusion that may require surgical debridement. 2. COPD: The patient has a history of COPD and decreased DLCO. She is a patient of Dr. King'emma. 3. Recommend Arthur bandages for her lower extremity edema to facilitate venous return. Patient will most likely require a left and right heart catheterization once her Eliquis has worn off. 4. Thank you very much for the opportunity to participate in the cardiac care of your patient. Consultation took place between 9:30 AM and 10:05 AM. Code Visit Inpatient E&M: 04366 Init Hosp L2 02/10/18 1156 <Electronically signed by Michele Mojica MD> Date Mihcele Mojica MD Cosigner Signature (if applicable): Date CC: Michele Mojica MD; Charlie King D.O.; Alfonzo Cha MD ~ Signed Pulmonology Dr. King Procedures: 2-D Echocardiogram - EF of 55% mild dilatated left ventricle, Thoracentesis Summary of Care Provided: Patient continues to go in and out of atrial fibrillation, will try again IV dose of Lopressor, give on p.o. Lopressor, but may have to start a Cardizem drip, as patient's atrial fibrillation with RVR seems to be resistant will go ahead and consult cardiology in the a.m. Patient has diuresed quite significant amount, however still has lower extremity edema and shortness of breath. I have spoken with Dr. King have read Dr. Mojica's note. Patient still is volume overloaded with significant amount of fluid within the left lung, Dr. Mojica has already added the Diamox as suggested by Dr. King in early discussion this morning. CT scan of the chest shows large volume within the left lung. Dr. Mojica does not believe heart rate can be controlled until fluid is removed. As we do not do chest tubes at this institution have a call out to the [facility] for possible transfer for cardiothoracic surgeon to evaluate for possible chest tube. I have explained this to the patient, patient states that she is okay with this. Patient is still diuresis about 3 L so far, with oral medications, still short of breath and tachycardic despite both Cardizem and amiodarone drips. Appreciate cardiology and Dr. King. Will try to transition patient to a tertiary institution to see if drainage of pleural effusion of the left left lung possibly requiring VATS is necessary at a tertiary care center. Patient currently still short of breath, otherwise is concerned about her heart, has some anxiety. Acute on chronic hypoxemic respiratory failure, resolved Related to decompensated heart failure +/- PNA. Continue Levaquin patient still has florid failure, the CT scan of the chest reveals large pleural effusion on the left even though patient had ultrasound thoracentesis several days ago. Cardiology was consulted and has placed patient on amiodarone drip as well as Cardizem drip however believe that patient will not improve until fluid was removed and will need possible VATS or chest tube. As we do not have the ability to do so. Have contacted the [facility] for possible cardiothoracic intervention and further management. They have accepted the patient and patient will be transferred when bed available. We will try to get all imaging on a CD to go with patient. Patient is made aware of this. Acute on chronic diastolic CHF/HFpEF Patient has diuresed approximately 20 L in the 6 days that she has been here without really any improvement. Patient is still short of breath requiring 4 L nasal clan of oxygen and satting in the low 90s and BiPAP. Further interventions to be done by [facility] appreciate their help Suspected PNA Chest x-ray with new upper lobe infiltrate, suspicious for pneumonia. Last hospitalization was in November, which may qualify for HCAP, however patient appears to be responding appropriately to oral Levaquin. Continue with current antibiotic. Blood culture pending and sputum showing normal lauren. Chronic atrial flutter status post cardioversion, on anticoagulation Currently has been on Xarelto, has been taken off for possible procedure. Cardiology states he should be off her anticoagulation for 2 days for possible left and right heart catheterizations and can replace with Lovenox 1 mg/kg subcu twice daily. We will continue to hold until patient can be transferred to tertiary facility and interventions can be done patient had dose today. CECILIA Continue with BiPAP nightly. COPD, on supplemental O2 of 2 L daily Is still requiring 4 L nasal cannula oxygen and desats quickly. May be due to the fluids possible loculations in the left lung. Her baseline of 2 L daily. Morbid obesity, BMI of 63 Aware. UTI On Levaquin Hypokalemia Repeat is supple [place] with 40 mEq today DVT prophylaxis Obviously on Xarelto discontinued by cardiology this morning diet 1500 fluid restriction CODE STATUS full Disposition due to possible large loculated, and need for possible VATS versus chest tube patient will be transferred to the [facility] currently on amiodarone drip and Cardizem drip. Patient will go to the medical ICU under the care of Dr. Mariano. Patient voices understanding. Chart is dictated with slip laster software. Errors may occur in dictation that may change providers meaning. This note was generated with Ramamia dictation software. It may contain incorrect words, spelling, and punctuation that were not noted in checking the note before signing. Current Inpatient Medication List Generic Name Dose Route Start Last Admin Trade Name Freq PRN Reason Stop Dose Admin Acetaminophen 650 mg 02/04/18 20:57 Tylenol PO Q6H PRN PRN Mild Pain (scale 0-3)/T>100.7 Acetazolamide 125 mg 02/10/18 17:00 02/10/18 16:35 Diamox PO 125 mg BIDCM LAQUITA Administration Albuterol Sulfate 2.5 mg 02/04/18 20:57 Ventolin Aerosols INHALATION Q2H PRN PRN SHORTNESS OF BREATH Albuterol/Ipratropium 3 ml 02/04/18 22:00 02/10/18 15:02 Duoneb INHALATION 3 ml Q4H.RT LAQUITA Administration Bisacodyl 5 mg 02/04/18 20:57 02/06/18 17:38 Dulcolax PO 5 mg DAILY PRN PRN Administration Constipation Calamine/Phenol 1 applic 02/08/18 00:06 Calmoseptine Ointment TOPICAL 4X/DAY PRN skin irritation Protocol Calcium/Vitamin D 1 tablet 02/05/18 10:00 02/10/18 09:39 Os-Jose 500mg + D PO 1 tablet DAILY LAQUITA Administration Furosemide 40 mg 02/10/18 18:00 02/10/18 16:35 Lasix PO 40 mg BID@1000,1800 LAQUITA Administration Guaifenesin 600 mg 02/04/18 22:00 02/10/18 09:39 Mucinex PO 600 mg BID LAQUITA Administration Diltiazem HCl 125 mg/ Dextrose 125 mls @ 5 mls/hr 02/09/18 17:06 02/10/18 11:50 IV 5 mls/hr .Q25H PRN Administration CARDIAC ARRYTHMIA 5 MG/HR Amiodarone HCl 360 mg/ 200 mls @ 33.33 mls/hr 02/10/18 12:00 02/10/18 12:51 Dextrose CONT INF 02/10/18 18:00 33.33 mls/hr .Q6H1M LAQUITA Administration 1 MG/MIN Amiodarone HCl 360 mg/ 200 mls @ 16.67 mls/hr 02/10/18 18:00 Dextrose CONT INF 02/11/18 11:59 .Q12H1M LAQUITA 0.5 MG/MIN Levofloxacin 750 mg 02/07/18 06:00 02/10/18 05:28 Levaquin Tablet PO 750 mg DAILY@0600 LAQUITA Administration Lorazepam 0.5 mg 02/04/18 20:57 02/10/18 16:35 Ativan PO 0.5 mg Q6H PRN PRN Administration ANXIETY Magnesium Hydroxide 30 ml 02/04/18 20:57 02/07/18 16:56 Milk Of Magnesia PO 30 ml DAILY PRN Administration Constipation Metoprolol Tartrate 50 mg 02/04/18 22:00 02/10/18 09:39 Lopressor (Beta Wallace) PO 50 mg BID LAQUITA Administration Metoprolol Tartrate 5 mg 02/09/18 07:58 02/09/18 08:07 Lopressor (Beta Wallace) IV 5 mg Q6 PRN Administration tachycardia Nystatin 1 applic 02/05/18 10:00 02/10/18 09:40 Mycostatin Powder TOPICAL 1 applic BID LAQUITA Administration Protocol Ondansetron HCl 4 mg 02/04/18 20:57 Zofran IV Q8H PRN PRN Nausea Pantoprazole Sodium 20 mg 02/05/18 10:00 02/10/18 09:39 Protonix PO 20 mg DAILY LAQUITA Administration Potassium Chloride 20 meq 02/11/18 08:00 K-Dur PO DAILYCM LAQUITA Sodium Chloride 5 - 30 ml 02/04/18 21:05 02/10/18 16:35 IV 10 ml UD PRN Administration SALINE FLUSH Sodium Chloride 2 spray 02/09/18 05:06 02/09/18 05:46 [place] Nasal [place] NASAL 2 spray TID PRN PRN Administration NASAL DRYNESS Zolpidem Tartrate 5 mg 02/04/18 20:57 Ambien (Generic) PO QHS PRN PRN INSOMNIA Patient Problems: Active and Suspected Problems (Last Reviewed 02/04/18 @ 20:20 by Wyatt Lora MD) Heart failure (Acute) - Physical Exam General: Alert, Oriented x3, Cooperative HEENT: Atraumatic, PERRLA, EOMI, Normocephalic Neck: Supple, No JVD, Negative Carotid Bruits, Trachea Midline Lungs: Clear to auscultation, Diminished - Moderate diminished breath sounds, Rales Cardiovascular: Normal S1, Normal S2, Irregular Rate, Tachycardic Abdomen: Soft, Non Tender, Non-Distended Extremities: Edema Skin: - - As of lower extremities with weeping Musculoskeletal: No Tenderness to Palpation of Joints or Extremities Neurological: Cranial nerves II-XII grossly intact, Neuro grossly intact Psych/Mental Status: Anxious, Alert and oriented to time, place, person, mood and affect Vital Signs Temp Pulse Resp BP Pulse Ox 97.3 F L 102 H 21 H 128/83 H 92 02/10/18 11:00 02/10/18 15:02 02/10/18 15:02 02/10/18 12:15 02/10/18 12:15 Oxygen Flow Rate (L/min) 4 Oxygen Delivery Method Nasal Cannula Weight: 151.4 kg Body Mass Index (BMI) 28.0 Intake and Output for Last 24 Hours 02/08/18 02/09/18 02/10/18 23:59 23:59 23:59 Intake Total 960 / 960 1034 / 1034 236 / 236 Output Total 5275 / 5275 6075 / 6075 3575 / 3575 Balance -4315 / -4315 -5041 / -5041 -3339 / -3339 Microbiology Past 72 Hours 02/07/18 15:24 Gram Stain - Final Fluid - Pleural (Lung) Body Fluid Culture - Preliminary No growth-Final to follow Anaerobic Culture - Preliminary No growth in 48 hours. 02/07/18 11:58 Gram Stain - Final Sputum, Expectorated/Coughed Respiratory Culture - Final Mixed normal respiratory lauren. No Streptococcus pneumoniae, beta-hemolytic Streptococcus or Staphylococcus aureus isolated. Laboratory Tests Past 24 Hrs 02/10/18 02/10/18 06:00 06:00 WBC 7.5 RBC 4.19 L Hgb 12.1 Hct 39.6 MCV 94.5 MCH 28.9 MCHC 30.6 L RDW 13.7 RDW Differential 45.3 H Plt Count 170 MPV 10.4 Immature Gran % (Auto) 0.100 Neut % (Auto) 67.5 Lymph % (Auto) 17.4 L [place] % (Auto) 11.8 H Eos % (Auto) 3.1 Baso % (Auto) 0.1 Absolute Neuts (auto) 5.1 Absolute Lymphs (auto) 1.31 Total Counted Not Reportable Sodium 138 Potassium 3.4 L Chloride 96 L Carbon Dioxide 35.0 H Anion Gap 7 BUN 20 H Creatinine 1.02 Estim Creat Clear Calc 43.06 Est GFR (MDRD) Af Amer 69 Est GFR (MDRD) Non-Af 57 L BUN/Creatinine Ratio 19.6 Glucose 103 Calcium 9.6 Phosphorus 4.4 Magnesium 2.0 Total Bilirubin 0.70 AST 16 ALT 25 Alkaline Phosphatase 91 Total Protein 6.7 Albumin 3.4 Globulin 3.3 Albumin/Globulin Ratio 1.0 Discharge Diet: No Restrictions - Cardiac, 1500 fluid restriction Discharge Activity: Return to Normal Activity Call your doctor if you observe: Fever of 101 or Higher, Coldness, Increased Pain, Shortness of breath, Dizziness, Chest pain, Calf discomfort Home Medications: Medications to take at Discharge Calcium Carbonate/Vitamin D3 [Calcium 500+D Tablet Chew] 1 ea PO DAILY 11/14/17 acetaminophen 500 mg tablet 1,000 mg PO Q6H PRN tab 12/01/17 Lorazepam [Ativan] 0.5 mg PO Q6H PRN PRN #14 tab 12/05/17 Metoprolol Tartrate [Lopressor (beta wallace)] 50 mg PO BID #60 tab 12/05/17 Pantoprazole Sodium [Protonix] 20 mg PO DAILY #30 tab 12/05/17 albuterol sulfate 2.5 mg/3 mL (0.083 %) solution for nebulization 2.5 mg INHALATION Q4H PRN #180 vial 01/04/18 albuterol sulfate HFA 90 mcg/actuation aerosol inhaler 2 puff INHALATION Q4H PRN #18 g 01/04/18 Diltiazem [Cardizem] 60 mg PO TID 02/04/18 AcetaAZOLAMIDE [Diamox] 125 mg PO BIDCM tablet 02/10/18 Acetaminophen [Tylenol Tablet] 650 mg PO Q6H PRN PRN tablet 02/10/18 Albuterol Aerosols [Ventolin Aerosols] 2.5 mg INHALATION Q2H PRN PRN vial.neb. 02/10/18 Amiodarone HCl/D5w [Amiodarone 450 mg/250 ml-D5w] 360 mg IV CONT #1 plast..bag 02/10/18 Bisacodyl [Dulcolax] 5 mg PO DAILY PRN PRN tablet 02/10/18 Calcium Carb/Vitamin D [Os-Jose 500MG + D] 1 tablet PO DAILY tablet 02/10/18 Furosemide [Lasix] 40 mg PO BID@1000,1800 tablet 02/10/18 Guaifenesin [Mucinex] 600 mg PO BID tablet 02/10/18 Ipratropium/Albuterol Sulfate [Duoneb] 3 ml INHALATION Q4H.RT ampul.neb 02/10/18 Magnesium Hydroxide [Milk Of Magnesia] 30 ml PO DAILY PRN udc 02/10/18 Menthol/Lanolin/Calamine/Znox [Calmoseptine Ointment] 1 applic TOPICAL 4X/DAY PRN tube 02/10/18 Metoprolol Tartrate [Lopressor (beta wallace)] 50 mg PO BID tablet 02/10/18 Nystatin Powder [Mycostatin Powder] 1 applic TOPICAL BID bottle 02/10/18 Ondansetron [Zofran] 4 mg IV Q8H PRN PRN vial 02/10/18 Potassium Chloride [K-Dur] 20 meq PO DAILYCM tablet 02/10/18 Sodium Chloride 0.65% [[place] Nasal [place]] 2 spray NASAL TID PRN PRN spray.btl 02/10/18 levoFLOXacin tablet [Levaquin tablet] 750 mg PO DAILY@0600 tablet 02/10/18 Following Prescrptions Were Given to Patient: Amiodarone HCl/D5w [Amiodarone 450 mg/250 ml-D5w] 360 mg IV CONT #1 plast..bag Primary Care Physician: Alfonzo Cha MD [Primary Care Provider] - Please follow up with your Primary Care Physician in: 1-2 after dc Additional Instructions: Please get all imaging and placed on CD for transfer Disposition: [facility] when bed available Minutes spent on discharge:: 50 Patient Condition:: Stable Medical Necessity - Tobacco Use Smoking Status: Former smoker Meaningful Use Info Meaningful Use Diagnoses (Choose all that apply): CHF - CHF ARTHUR/ARB ordered at discharge?: No Reason ARTHUR/ARB not ordered?: Hypotension Documented LVEF (%): 55 Code Visit Inpatient E&M: 86517 Disch Hosp
--- NOTE | 2018-02-10 16:40 | DS.PCM_ITS ---
Discharge Date and Diagnosis - Problem List Patient Problems: Active and Suspected Problems (Last Reviewed 02/04/18 @ 20:20 by Wyatt Lora MD) Heart failure (Acute) Date of Admission: 02/04/18 Date of Discharge: 02/10/18 - When bed available at [facility] please give all imaging CDs - Primary Discharge Diagnosis Active and Suspected Problems (Last Reviewed 02/04/18 @ 20:20 by Wyatt Lora MD) Heart failure (Acute) - Secondary Discharge Diagnosis Chronic Problems (Last Reviewed 02/04/18 @ 20:20 by Wyatt Lora MD) Chronic obstructive pulmonary disease (Chronic) Morbid obesity (Chronic) HTN (hypertension) (Chronic) GERD (gastroesophageal reflux disease) (Chronic) Hospital Course and Treatment Imaging Results: [facility] Imaging Services [address] [place] [address] Chest WITH Contrast MR#: [id number] Acct: [id number] Name: YAO FLORES Rep #: [id number] : 1950 F 67 From: Sunny Chung PCP: Alfonzo Cha MD Status: ADM IN Study: Chest WITH Contrast Date of Exam: 02/10/18 Exam# [id number] Ordering Dr: Michele Mojica MD STUDY: CT CHEST WITH CONTRAST REASON FOR EXAM: Female, 67 years old. PLEURAL EFFUSION NOT RESOLVING, HX-HTN. RADIATION DOSAGE (If Supplied By Facility): CTDIvol = ( 21.18 ) mGy, DLP = ( 782.91 ) mGycm TECHNIQUE: Transaxial imaging was performed following intravenous administration of 100 ml of Isovue 300 contrast material. # of Images: 839 Individualized dose optimization techniques were used for this CT. COMPARISON: February 10, 2018 chest x-ray FINDINGS: There is a large left pleural effusion and atelectasis. There is trace right pleural effusion and minimal atelectasis. The heart is enlarged Normal mediastinum. Normal hilar regions. Normal enhanced pulmonary arteries. Normal aorta arch and descending thoracic aorta. Normal osseous structures. There is no demonstrated abnormality of the visualized upper abdomen. CT/Chest WITH Contrast IMPRESSION: Large left pleural effusion. Small right pleural effusion. Cardiomegaly. Electronically Signed: Sunny Chung MD at 14:03 EDT Tel , Service support , CC: Michele Mojica MD; Alfonzo Cha MD ~ Merchandise Collector: Signed Thoracentesis W US MR#: [id number] Acct: [id number] Name: YAO FLORES Rep #: [id number] : [id number] 67 From: Lewis Aguirre MD PCP: Alfonzo Cha MD Status: ADM IN Study: Thoracentesis W Date of Exam: 02/07/18 Exam# [id number] Ordering Dr: Isabelle Martin MD PROCEDURE: ULTRASOUND GUIDED THORACENTESIS. DATE: February 07, 2013.. INDICATION: Female, 67 years old. Left pleural effusion. PHYSICIAN: Lewis Aguirre M.D. PROCEDURE: The risks, benefits, and alternatives to the procedure were explained to the patient. The specific risks of bleeding, infection, and pneumothorax requiring chest tube insertion were discussed and accepted. Written informed consent was obtained. Ultrasonographic evaluation of the left lower pleural space was carried out. An adequate pocket was identified. The patient was placed in the sitting, upright position. The overlying skin was prepped and draped in sterile fashion. 1% lidocaine was administered subcutaneously for local anesthesia. Under ultrasound guidance, a 5 Greenlandic thoracentesis needle/catheter system was advanced into the left posterior lower pleural fluid collection. Approximately 150 mL of bloody fluid was drained. The catheter was removed, and a sterile dressing was applied. A specimen was collected and sent to the laboratory for analysis, as requested by the referring clinician. The patient tolerated the procedure well. A chest x-ray was ordered. US/Thoracentesis W US IMPRESSION: Ultrasound-guided left thoracentesis. Electronically Signed: Lewis Aguirre MD at 15:55 EDT Tel [phone], Service support , 02/10/18 11:53 Chest WITH Contrast [CT] Urgent 02/11/18 05:55 Chest 1 View (Portable) [RAD] AM (NON MEDS) Problem List (1) Heart failure Status: Acute (2) CECILIA (obstructive sleep apnea) Status: Acute (3) Shortness of breath Status: Acute (4) Atrial flutter with rapid ventricular response Status: Acute (5) Atrial flutter Status: Acute Qualifiers: Atrial flutter type: typical Qualified Code(s): I48.3 - Typical atrial flutter (6) HTN (hypertension) Status: Chronic Qualifiers: Reason for Consult Date of Consultation: 02/10/18 Reason for Consultation: Atrial flutter with rapid ventricular response, COPD, CHF. History of Present Illness: The patient is a 67 year old F morbidly obese, nondiabetic, patient of Dr. Hernandez's, who was recently admitted to [facility] around November 2017 with respiratory distress, requiring intubation, atrial flutter requiring NEREYDA guided DC cardioversion, and congestive heart failure symptoms. Recently patient underwent a left-sided thoracentesis on 02/07/18 with 150 cc of bloody fluid removed. Patient also has morbid obesity, diagnosed with COPD, and is currently on Xarelto therapy. She also has a history of obstructive sleep apnea and is compliant with her CPAP. The patient was seen by Dr. Hernandez in the hospital and underwent a fairly extensive cardiac evaluation including echocardiograms, NEREYDA, and DC cardioversion. According the patient she has never had a heart catheterization. Her echocardiogram from November 2017 showed intact LV function, mild LVH, RVSP of at least 35 mmHg. Patient underwent elective DC cardioversion which was successful initially, and then returned atrial flutter while she was intubated. They attempted a another 2 DC cardioversions which were transiently successful but then reverted back to atrial flutter. She was treated with rate control medications and anticoagulation therapy. And was awaiting atrial flutter ablation at an outside facility. Apparently the patient was doing fairly well at home but then developed palpitations, shortness of breath, and rapid ventricular response. The patient sought medical attention where an EKG was performed which showed atrial flutter with rapid ventricular response. She was placed on a Cardizem drip with no significant reduction in her heart rate. Repeat chest x-ray demonstrated a very large left pleural effusion, compressing about half the thoracic cavity. No pneumothorax noted. This looks about the same after her recent thoracentesis on 02/07/18. Currently the patient is sitting up in a chair, no acute distress. [] Past Medical History Allergies/Adverse Reactions: Allergies aspirin [ASA] Adverse Reaction (Verified 02/04/18 20:59) stomach burning and sick to stomach propoxyphene HCl [From Darvon] Adverse Reaction (Verified 02/04/18 20:59) i get dizzy and pass out Home Medications: Ambulatory Orders Medication Instructions Recorded Calcium Carbonate/Vitamin D3 1 ea PO DAILY 11/14/17 [Calcium 500+D Tablet Chew] acetaminophen 500 mg tablet 1,000 mg PO Q6H PRN tab 12/01/17 Lorazepam [Ativan] 0.5 mg PO Q6H PRN PRN #14 tab 12/05/17 Metoprolol Tartrate [Lopressor 50 mg PO BID #60 tab 12/05/17 (beta wallace)] Pantoprazole Sodium [Protonix] 20 mg PO DAILY #30 tab 12/05/17 Rivaroxaban [Xarelto] 20 mg PO DAILY@1800 #30 tab 12/05/17 albuterol sulfate 2.5 mg/3 mL 2.5 mg INHALATION Q4H PRN #180 vial 01/04/18 (0.083 %) solution for nebulization albuterol sulfate HFA 90 2 puff INHALATION Q4H PRN #18 g 01/04/18 mcg/actuation aerosol inhaler Diltiazem [Cardizem] 60 mg PO TID 02/04/18 Omeprazole [Prilosec] 20 mg PO DAILY 02/04/18 Past Medical History (Chronic Problems): Chronic Problems (Last Reviewed 02/04/18 @ 20:20 by Wyatt Lora MD) Chronic obstructive pulmonary disease (Chronic) Morbid obesity (Chronic) HTN (hypertension) (Chronic) GERD (gastroesophageal reflux disease) (Chronic) Surgical History: hysterectomy - total Psychiatric History: No pertinent psych hx MOVEMENT 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 History: No pertinent MOVEMENT EDUCATION 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 - *Family History Maternal Family History: Family History (Last Reviewed 02/04/18 @ 20:20 by Wyatt Lora MD) Mother Heart disease Father Heart disease History Items: Heart Disease Paternal Family History: Family History (Last Reviewed 02/04/18 @ 20:20 by Wyatt Lora MD) Mother Heart disease Father Heart disease History Items: Heart Disease Lives: Spouse/ Significant Other Smoking Status: Former smoker Alcohol: None Review of Systems - Review of Systems General: Denies: Fever, Night Sweats, Fatigue Cardiovascular: Reports: Shortness of Breath, Shortness of Breath at Rest, Orthopnea, PND, Peripheral Edema. Denies: Chest Discomfort, Palpitations, Lightheadedness, Dizziness, Near Syncope, Syncope Respiratory: Denies: Cough, Sputum Production, Hemoptysis Gastrointestinal: Denies: Hematemesis, Hematochezia, Melena Genitourinary: Denies: Dysuria, Hematuria Skin: Denies: Rash Subjectve: Patient sitting in a chair, no acute distress, on Cardizem drip. Objective: Vital Signs Temp Pulse Resp BP Pulse Ox 97.3 F L 109 H 23 H 103/70 96 02/10/18 11:00 02/10/18 11:00 02/10/18 11:00 02/10/18 11:00 02/10/18 11:00 Oxygen Flow Rate (L/min) 4 Oxygen Delivery Method Nasal Cannula Weight: 333 lb 12.478 oz Body Mass Index (BMI) 28.0 Intake and Output for Last 24 Hours 02/08/18 02/09/18 02/10/18 23:59 23:59 23:59 Intake Total 960 / 960 1034 / 1034 56 / 56 Output Total 5275 / 5275 6075 / 6075 2074 / 2074 Balance -4315 / -4315 -5041 / -504 -2018 / General: Awake, Alert, Oriented x 3 HEENT: PERRL, EOMI, Sclera Non Icteric Neck: Supple, Good ROM, No Lymph Node Enlargement Lungs: Diminished Left Base, Dullness to Percussion-Left Cardiovascular: Irregular Rhythm, Normal S1, Normal S2, No Murmurs, No Rubs, No Gallops Vascular: No Carotid Bruits, Normal Femoral Pulses, Normal Radial Pulses, Normal Dorsalis Pedal Pulse, Normal Posterior Tibial Pulses Abdomen: Bowel Sounds Present, Soft, Non Tender, No HSM, No Organomegaly Extremities: No Cyanosis, No Clubbing, Bilateral Edema +2 Neurological: No Focal Motor or Sensory Deficit 02/10/18 06:00: WBC 7.5, RBC 4.19 L, Hgb 12.1, Hct 39.6, MCV 94.5, MCH 28.9, MCHC 30.6 L, RDW 13.7, RDW Differential 45.3 H, Plt Count 170, MPV 10.4, Immature Gran % (Auto) 0.100, Neut % (Auto) 67.5, Lymph % (Auto) 17.4 L, Chambers % (Auto) 11.8 H, Eos % (Auto) 3.1, Baso % (Auto) 0.1, Absolute Neuts (auto) 5.1, Total Counted Not Reportable 02/10/18 06:00: Sodium 138, Potassium 3.4 L, Chloride 96 L, Carbon Dioxide 35.0 H, Anion Gap 7, BUN 20 H, Creatinine 1.02, Est GFR (MDRD) Af Amer 69, Est GFR (MDRD) Non-Af 57 L, BUN/Creatinine Ratio 19.6, Glucose 103, Calcium 9.6, Phosphorus 4.4, Magnesium 2.0, Total Bilirubin 0.70 Rhythm: EKG: ECHO: Stress Test: Cardiac Cath: PCI: CT Surgery: Holter monitor: EPS: PPM: CXR: Chest CT Scan: Assessment/Plan 1. Atrial flutter: The patient presents with recurrent atrial flutter and rapid ventricular response superimposed upon a very large left pleural effusion which appears to have evolved since her recent admission for pneumonia in November 2017. A CAT scan done around that time showed bilateral small pleural effusions, but the patient has now had worsening left pleural effusion which may have been a result of her recent pneumonic process. An attempt was made for a left-sided thoracentesis on 02/07/18 which removed about 150 mL of fluid without a lot of improvement. Would recommend repeating her CAT scan to determine if she has a loculated pleural effusion that may require surgical debridement and/or a chest tube at an outside facility. In the meantime I recommend initiating an amiodarone drip per protocol, in addition to her Cardizem drip. Patient has known COPD, and bilateral decrease in her DLCO by pulmonary function test although this may have been superimposed upon congestive heart failure as well. Recommend using amiodarone in the short- term in order to gain heart rate control and possibly assist with DC cardioversion once her pleural effusion has resolved. Would not attempt DC cardioversion unless emergent until after her left pleural effusion has resolved. I do not believe her heart rate will improve until after we have removed the fluid, so plans may be made to transfer the patient to a tertiary [facility] for further evaluation. Would recommend holding her anticoagulation at this time and she will require several days off of it should she require a chest tube and/or surgical debridement depending upon the outcome of the CT scan. We may be able to take advantage of performing a left and right heart catheterization at that time. When she has been off her anticoagulation for 2 days we can replace this with subcu Lovenox 1 mg/kg subcu twice daily. For the time being I am in agreement with IV diuretic therapy to assist with pleural effusion resolution, recommend keeping her potassium above 4.0 and her magnesium of 2.0 during this process. In addition I recommend that she undergo a CT scan In addition I recommend she undergo a CT scan to determine if she has a loculated pleural effusion that may require surgical debridement. 2. COPD: The patient has a history of COPD and decreased DLCO. She is a patient of Dr. King'emma. 3. Recommend Arthur bandages for her lower extremity edema to facilitate venous return. Patient will most likely require a left and right heart catheterization once her Eliquis has worn off. 4. Thank you very much for the opportunity to participate in the cardiac care of your patient. Consultation took place between 9:30 AM and 10:05 AM. Code Visit Inpatient E&M: 11465 Init Hosp L2 02/10/18 1156 <Electronically signed by Michele Mojica MD> Date Michele Mojica MD Cosigner Signature (if applicable): Date CC: Michele Mojica MD; Charlie King D.O.; Alfonzo Cha MD ~ Signed Pulmonology Dr. King Procedures: 2-D Echocardiogram - EF of 55% mild dilatated left ventricle, Thoracentesis Summary of Care Provided: Patient continues to go in and out of atrial fibrillation, will try again IV dose of Lopressor, give on p.o. Lopressor, but may have to start a Cardizem drip, as patient's atrial fibrillation with RVR seems to be resistant will go ahead and consult cardiology in the a.m. Patient has diuresed quite significant amount, however still has lower extremity edema and shortness of breath. I have spoken with Dr. King have read Dr. Mojica's note. Patient still is volume overloaded with significant amount of fluid within the left lung, Dr. Mojica has already added the Diamox as suggested by Dr. King in early discussion this morning. CT scan of the chest shows large volume within the left lung. Dr. Mojica does not believe heart rate can be controlled until fluid is removed. As we do not do chest tubes at this institution have a call out to the [facility] for possible transfer for cardiothoracic surgeon to evaluate for possible chest tube. I have explained this to the patient, patient states that she is okay with this. Patient is still diuresis about 3 L so far, with oral medications, still short of breath and tachycardic despite both Cardizem and amiodarone drips. Appreciate cardiology and Dr. King. Will try to transition patient to a tertiary institution to see if drainage of pleural effusion of the left left lung possibly requiring VATS is necessary at a tertiary care center. Patient currently still short of breath, otherwise is concerned about her heart, has s ome anxiety. Acute on chronic hypoxemic respiratory failure, resolved Related to decompensated heart failure +/- PNA. Continue Levaquin patient still has florid failure, the CT scan of the chest reveals large pleural effusion on the left even though patient had ultrasound thoracentesis several days ago. Cardiology was consulted and has placed patient on amiodarone drip as well as Cardizem drip however believe that patient will not improve until fluid was removed and will need possible VATS or chest tube. As we do not have the ability to do so. Have contacted the [facility] for possible cardiothoracic intervention and further management. They have accepted the patient and patient will be transferred when bed available. We will try to get all imaging on a CD to go with patient. Patient is made aware of this. Acute on chronic diastolic CHF/HFpEF Patient has diuresed approximately 20 L in the 6 days that she has been here without really any improvement. Patient is still short of breath requiring 4 L nasal clan of oxygen and satting in the low 90s and BiPAP. Further interventions to be done by [facility] appreciate their help Suspected PNA Chest x-ray with new upper lobe infiltrate, suspicious for pneumonia. Last hospitalization was in November, which may qualify for HCAP, however patient appears to be responding appropriately to oral Levaquin. Continue with current antibiotic. Blood culture pending and sputum showing normal lauren. Chronic atrial flutter status post cardioversion, on anticoagulation Currently has been on Xarelto, has been taken off for possible procedure. Cardiology states he should be off her anticoagulation for 2 days for possible left and right heart catheterizations and can replace with Lovenox 1 mg/kg subcu twice daily. We will continue to hold until patient can be transferred to tertiary facility and interventions can be done patient had dose today. CECILIA Continue with BiPAP nightly. COPD, on supplemental O2 of 2 L daily Is still requiring 4 L nasal cannula oxygen and desats quickly. May be due to the fluids possible loculations in the left lung. Her baseline of 2 L daily. Morbid obesity, BMI of 63 Aware. UTI On Levaquin Hypokalemia Repeat is supple [place] with 40 mEq today DVT prophylaxis Obviously on Xarelto discontinued by cardiology this morning diet 1500 fluid restriction CODE STATUS full Disposition due to possible large loculated, and need for possible VATS versus chest tube patient will be transferred to the [facility] currently on amiodarone drip and Cardizem drip. Patient will go to the medical ICU under the care of Dr. Mariano. Patient voices understanding. Chart is dictated with trademark paralegal software. Errors may occur in dictation that may change providers meaning. This note was generated with SHIFT dictation software. It may contain incorrect words, spelling, and punctuation that were not noted in checking the note before signing. Current Inpatient Medication List Generic Name Dose Route Start Last Admin Trade Name Freq PRN Reason Stop Dose Admin Acetaminophen 650 mg 02/04/18 20:57 Tylenol PO Q6H PRN PRN Mild Pain (scale 0-3)/T>100.7 Acetazolamide 125 mg 02/10/18 17:00 02/10/18 16:35 Diamox PO 125 mg BIDCM LAQUITA Administration Albuterol Sulfate 2.5 mg 02/04/18 20:57 Ventolin Aerosols INHALATION Q2H PRN PRN SHORTNESS OF BREATH Albuterol/Ipratropium 3 ml 02/04/18 22:00 02/10/18 15:02 Duoneb INHALATION 3 ml Q4H.RT LAQUITA Administration Bisacodyl 5 mg 02/04/18 20:57 02/06/18 17:38 Dulcolax PO 5 mg DAILY PRN PRN Administration Constipation Calamine/Phenol 1 applic 02/08/18 00:06 Calmoseptine Ointment TOPICAL 4X/DAY PRN skin irritation Protocol Calcium/Vitamin D 1 tablet 02/05/18 10:00 02/10/18 09:39 Os-Jose 500mg + D PO 1 tablet DAILY LAQUITA Administration Furosemide 40 mg 02/10/18 18:00 02/10/18 16:35 Lasix PO 40 mg BID@1000,1800 LAQUITA Administration Guaifenesin 600 mg 02/04/18 22:00 02/10/18 09:39 Mucinex PO 600 mg BID LAQUITA Administration Diltiazem HCl 125 mg/ Dextrose 125 mls @ 5 mls/hr 02/09/18 17:06 02/10/18 11:50 IV 5 mls/hr .Q25H PRN Administration CARDIAC ARRYTHMIA 5 MG/HR Amiodarone HCl 360 mg/ 200 mls @ 33.33 mls/hr 02/10/18 12:00 02/10/18 12:51 Dextrose CONT INF 02/10/18 18:00 33.33 mls/hr .Q6H1M LAQUITA Administration 1 MG/MIN Amiodarone HCl 360 mg/ 200 mls @ 16.67 mls/hr 02/10/18 18:00 Dextrose CONT INF 02/11/18 11:59 .Q12H1M LAQUITA 0.5 MG/MIN Levofloxacin 750 mg 02/07/18 06:00 02/10/18 05:28 Levaquin Tablet PO 750 mg DAILY@0600 LAQUITA Administration Lorazepam 0.5 mg 02/04/18 20:57 02/10/18 16:35 Ativan PO 0.5 mg Q6H PRN PRN Administration ANXIETY Magnesium Hydroxide 30 ml 02/04/18 20:57 02/07/18 16:56 Milk Of Magnesia PO 30 ml DAILY PRN Administration Constipation Metoprolol Tartrate 50 mg 02/04/18 22:00 02/10/18 09:39 Lopressor (Beta Wallace) PO 50 mg BID LAQUITA Administration Metoprolol Tartrate 5 mg 02/09/18 07:58 02/09/18 08:07 Lopressor (Beta Wallace) IV 5 mg Q6 PRN Administration tachycardia Nystatin 1 applic 02/05/18 10:00 02/10/18 09:40 Mycostatin Powder TOPICAL 1 applic BID LAQUITA Administration Protocol Ondansetron HCl 4 mg 02/04/18 20:57 Zofran IV Q8H PRN PRN Nausea Pantoprazole Sodium 20 mg 02/05/18 10:00 02/10/18 09:39 Protonix PO 20 mg DAILY LAQUITA Administration Potassium Chloride 20 meq 02/11/18 08:00 K-Dur PO DAILYCM LAQUITA Sodium Chloride 5 - 30 ml 02/04/18 21:05 02/10/18 16:35 IV 10 ml UD PRN Administration SALINE FLUSH Sodium Chloride 2 spray 02/09/18 05:06 02/09/18 05:46 [place] Nasal [place] NASAL 2 spray TID PRN PRN Administration NASAL DRYNESS Zolpidem Tartrate 5 mg 02/04/18 20:57 Ambien (Generic) PO QHS PRN PRN INSOMNIA Patient Problems: Active and Suspected Problems (Last Reviewed 02/04/18 @ 20:20 by Wyatt Lora MD) Heart failure (Acute) - Physical Exam General: Alert, Oriented x3, Cooperative HEENT: Atraumatic, PERRLA, EOMI, Normocephalic Neck: Supple, No JVD, Negative Carotid Bruits, Trachea Midline Lungs: Clear to auscultation, Diminished - Moderate diminished breath sounds, Rales Cardiovascular: Normal S1, Normal S2, Irregular Rate, Tachycardic Abdomen: Soft, Non Tender, Non-Distended Extremities: Edema Skin: - - As of lower extremities with weeping Musculoskeletal: No Tenderness to Palpation of Joints or Extremities Neurological: Cranial nerves II-XII grossly intact, Neuro grossly intact Psych/Mental Status: Anxious, Alert and oriented to time, place, person, mood and affect Vital Signs Temp Pulse Resp BP Pulse Ox 97.3 F L 102 H 21 H 128/83 H 92 02/10/18 11:00 02/10/18 15:02 02/10/18 15:02 02/10/18 12:15 02/10/18 12:15 Oxygen Flow Rate (L/min) 4 Oxygen Delivery Method Nasal Cannula Weight: 151.4 kg Body Mass Index (BMI) 28.0 Intake and Output for Last 24 Hours 02/08/18 02/09/18 02/10/18 23:59 23:59 23:59 Intake Total 960 / 960 1034 / 1034 236 / 236 Output Total 5275 / 5275 6075 / 6075 3575 / 3575 Balance -4315 / -4315 -5041 / -5041 -3339 / -3339 Microbiology Past 72 Hours 02/07/18 15:24 Gram Stain - Final Fluid - Pleural (Lung) Body Fluid Culture - Preliminary No growth-Final to follow Anaerobic Culture - Preliminary No growth in 48 hours. 02/07/18 11:58 Gram Stain - Final Sputum, Expectorated/Coughed Respiratory Culture - Final Mixed normal respiratory lauren. No Streptococcus pneumoniae, beta-hemolytic Streptococcus or Staphylococcus aureus isolated. Laboratory Tests Past 24 Hrs 02/10/18 02/10/18 06:00 06:00 WBC 7.5 RBC 4.19 L Hgb 12.1 Hct 39.6 MCV 94.5 MCH 28.9 MCHC 30.6 L RDW 13.7 RDW Differential 45.3 H Plt Count 170 MPV 10.4 Immature Gran % (Auto) 0.100 Neut % (Auto) 67.5 Lymph % (Auto) 17.4 L Chambers % (Auto) 11.8 H Eos % (Auto) 3.1 Baso % (Auto) 0.1 Absolute Neuts (auto) 5.1 Absolute Lymphs (auto) 1.31 Total Counted Not Reportable Sodium 138 Potassium 3.4 L Chloride 96 L Carbon Dioxide 35.0 H Anion Gap 7 BUN 20 H Creatinine 1.02 Estim Creat Clear Calc 43.06 Est GFR (MDRD) Af Amer 69 Est GFR (MDRD) Non-Af 57 L BUN/Creatinine Ratio 19.6 Glucose 103 Calcium 9.6 Phosphorus 4.4 Magnesium 2.0 Total Bilirubin 0.70 AST 16 ALT 25 Alkaline Phosphatase 91 Total Protein 6.7 Albumin 3.4 Globulin 3.3 Albumin/Globulin Ratio 1.0 Discharge Diet: No Restrictions - Cardiac, 1500 fluid restriction Discharge Activity: Return to Normal Activity Call your doctor if you observe: Fever of 101 or Higher, Coldness, Increased Pain, Shortness of breath, Dizziness, Chest pain, Calf discomfort Home Medications: Medications to take at Discharge Calcium Carbonate/Vitamin D3 [Calcium 500+D Tablet Chew] 1 ea PO DAILY 11/14/17 acetaminophen 500 mg tablet 1,000 mg PO Q6H PRN tab 12/01/17 Lorazepam [Ativan] 0.5 mg PO Q6H PRN PRN #14 tab 12/05/17 Metoprolol Tartrate [Lopressor (beta wallace)] 50 mg PO BID #60 tab 12/05/17 Pantoprazole Sodium [Protonix] 20 mg PO DAILY #30 tab 12/05/17 albuterol sulfate 2.5 mg/3 mL (0.083 %) solution for nebulization 2.5 mg INHALATION Q4H PRN #180 vial 01/04/18 albuterol sulfate HFA 90 mcg/actuation aerosol inhaler 2 puff INHALATION Q4H PRN #18 g 01/04/18 Diltiazem [Cardizem] 60 mg PO TID 02/04/18 AcetaAZOLAMIDE [Diamox] 125 mg PO BIDCM tablet 02/10/18 Acetaminophen [Tylenol Tablet] 650 mg PO Q6H PRN PRN tablet 02/10/18 Albuterol Aerosols [Ventolin Aerosols] 2.5 mg INHALATION Q2H PRN PRN vial.neb. 02/10/18 Amiodarone HCl/D5w [Amiodarone 450 mg/250 ml-D5w] 360 mg IV CONT #1 plast..bag 02/10/18 Bisacodyl [Dulcolax] 5 mg PO DAILY PRN PRN tablet 02/10/18 Calcium Carb/Vitamin D [Os-Jose 500MG + D] 1 tablet PO DAILY tablet 02/10/18 Furosemide [Lasix] 40 mg PO BID@1000,1800 tablet 02/10/18 Guaifenesin [Mucinex] 600 mg PO BID tablet 02/10/18 Ipratropium/Albuterol Sulfate [Duoneb] 3 ml INHALATION Q4H.RT ampul.neb 02/10/18 Magnesium Hydroxide [Milk Of Magnesia] 30 ml PO DAILY PRN udc 02/10/18 Menthol/Lanolin/Calamine/Znox [Calmoseptine Ointment] 1 applic TOPICAL 4X/DAY PRN tube 02/10/18 Metoprolol Tartrate [Lopressor (beta wallace)] 50 mg PO BID tablet 02/10/18 Nystatin Powder [Mycostatin Powder] 1 applic TOPICAL BID bottle 02/10/18 Ondansetron [Zofran] 4 mg IV Q8H PRN PRN vial 02/10/18 Potassium Chloride [K-Dur] 20 meq PO DAILYCM tablet 02/10/18 Sodium Chloride 0.65% [[place] Nasal [place]] 2 spray NASAL TID PRN PRN spray.btl 02/10/18 levoFLOXacin tablet [Levaquin tablet] 750 mg PO DAILY@0600 tablet 02/10/18 Following Prescrptions Were Given to Patient: Amiodarone HCl/D5w [Amiodarone 450 mg/250 ml-D5w] 360 mg IV CONT #1 plast..bag Primary Care Physician: Alfonzo Cha MD [Primary Care Provider] - Please follow up with your Primary Care Physician in: 1-2 after dc Additional Instructions: Please get all imaging and placed on CD for transfer Disposition: [facility] when bed available Minutes spent on discharge:: 50 Patient Condition:: Stable Medical Necessity - Tobacco Use Smoking Status: Former smoker Meaningful Use Info Meaningful Use Diagnoses (Choose all that apply): CHF - CHF ARTHUR/ARB ordered at discharge?: No Reason ARTHUR/ARB not ordered?: Hypotension Documented LVEF (%): 55 Code Visit Inpatient E&M: 66666 Disch Hosp
--- NOTE | 2018-02-10 16:58 | NURSING ---
called report to ANGEL @ [facility] G60
[2018-02-11] VITALS: BP 101/76; PULSE 94; RESP 19; O2SAT 100
--- NOTE | 2018-02-13 12:39 | CASEMGMT ---
FOLLOW-UP CALL: Call placed to patient. Patient answers phone and states she's at the [facility] and is about to go in for a procedure. Patient denies any needs right now. I offered to provide contact information to patient and she states she will call the hospital if she has any needs, then hangs up the phone.
[2018-02-13 15:09] LABS: Cytology, Body Fluid / CSF SEE PATHOLOGY REPORT
== END 2018-02-11 00:30 | disposition short-term general hospital (02) | DRG 291 ==
LOC: ED 18:51 → PCU 19:45
PROVIDERS: Family Medicine; Internal Medicine; Internal Medicine Critical Care Medicine; Admitting Provider Hospitalist; Emergency Provider Emergency Medicine; Family Provider Family Medicine; PCP Family Medicine; Visit Provider Internal Medicine
DX: I11.0 Hypertensive heart disease with heart failure (principal); J18.9 Pneumonia, unspecified organism; J96.21 Acute and chronic respiratory failure with hypoxia; Z68.44 Body mass index [BMI] 60.0-69.9, adult; N39.0 Urinary tract infection, site not specified; J91.8 Pleural effusion in other conditions classified elsewhere; I48.92 Unspecified atrial flutter; I50.33 Acute on chronic diastolic (congestive) heart failure; E66.01 Morbid (severe) obesity due to excess calories; K21.9 Gastro-esophageal reflux disease without esophagitis; G47.33 Obstructive sleep apnea (adult) (pediatric); Z87.891 Personal history of nicotine dependence; J44.9 Chronic obstructive pulmonary disease, unspecified; E87.6 Hypokalemia; Z99.81 Dependence on supplemental oxygen; R31.0 Gross hematuria; Z79.01 Long term (current) use of anticoagulants
CPT/HCPCS: 32555; 36415; 36600; 71045; 71046; 71260; 80048; 80053; 81001; 82803; 82945; 83615; 83735; 83880; 84100; 84156; 84157; 84484; 85025; 85027; 85610; 85730; 87040; 87070; 87075; 87205; 88108; 88305; 88313; 89050; 93005; 94002; 94003; 94640; 97110; 97162; 97165; 97530; 97802; 99251; 99285; P9047; Q9967; A4216; G0463; J1940

== ENCOUNTER 2018-02-07 10:49 | Outpatient (RCR) | payer MEDICARE, SELFPAY ==
--- NOTE | 2018-02-09 | FLU_PTH ---
PATIENT: YAO FLORES LOC: [facility] U#:[id number] AGE/SX: 68/F ROOM: RE02/07/[address]: Dr. Alfonzo Cha MD : [id number] BED: DIS: 10/04/2018 SPEC #: [id number] RECD: 02/09/18 11:44 STATUS: MONIKA CRISTOBAL #: [id number] [place]: 02/09/18 00:[address]: Alfonzo Cha DEPT: CYTOLOGY RECD BY: Henok Story Tissues: Pleural fluid, NOS Procedures: Pap Stain (control) Special Stain Group II Surgery Specimen Level IV Cell Block Cytospin Fluid HEADER OPERATION: Ultrasound-guided thoracentesis PRE-OP DIAGNOSIS: Left chest pleural effusion TISSUE SUBMITTED: Thoracentesis fluid for cytology DIAGNOSIS CYTOLOGY Thoracentesis fluid for cytology (cytospin and cell block): Negative for malignant cells. See cytology study and comment. PERNELL:gregg 02/12/18 COMMENT Clinical correlation and appropriate follow up are necessary. CYTOLOGY STUDY Slides are reviewed. The specimen is bloody and consists of macrophages, mesothelial cells and inflammatory cells. CYTOLOGY GROSS Received is 110 ml of dark red cloudy fluid labeled with the patient's name and and designated per the requisition as thoracentesis. Submitted for cytology preparation including cell block. / 02/09/18 TC:5 CPT: 54154, 08658
== END 2018-10-04 09:35 | disposition hospice, home (50) ==
LOC: CCN 10:49
PROVIDERS: Family Provider Family Medicine; PCP Family Medicine; Visit Provider Family Medicine
DX: J90 Pleural effusion, not elsewhere classified (principal)
CPT/HCPCS: 88108; 88305; 88313

== ENCOUNTER → 2018-03-15 06:34 | Outpatient (CLI) | payer MEDICARE, SELFPAY ==
[2018-03-02 08:27] VITALS: BMI 55.7
--- NOTE | 2018-03-15 09:18 | STRESSREP ---
Stress Test Report Date: 05/15/2017 Procedure: Pharmacologic stress nuclear imaging study Indications: Shortness of breath/dyspnea; chest pain; atrial flutter Consent: Per the patient Procedure: The patient underwent pharmacologic (Regadenoson) evaluation with a peak heart rate of 106 beats per minute (70 predicted maximal heart rate) and a peak blood pressure of 124/84 mmHg. The baseline ECG demonstrated atrial flutter; right bundle branch block pattern. The peak pharmacologic ECG demonstrated no obvious ECG changes. There were no cardiac dysrhythmias pretest, during pharmacologic infusion, or recovery. There was no complaint of chest discomfort during pharmacologic infusion or recovery. The examination was discontinued secondary to completion of protocol. Impression: 1. Pharmacologic (Regadenoson) evaluation 2. Peak pharmacologic ECG with continued atrial flutter with right bundle branch block pattern. 3. There were no cardiac dysrhythmias pretest, during pharmacologic infusion, or recovery. 4. Nuclear images pending Myocardial perfusion imaging study: Technique: The patient was injected with 11.1 millicuries of technetium 99m Cardiolite and subsequently rest SPECT Cardiolite nuclear imaging was obtained in the horizontal long, vertical long, and short axis views. The patient underwent pharmacologic (Regadenoson) evaluation with a peak heart rate of 106 beats per minute (70 % percent predicted maximal heart rate) and a peak blood pressure of 124/84 mmHg. The patient was injected with 35.5 millicuries of technetium 99m Cardiolite and subsequently stress SPECT Cardiolite nuclear imaging was obtained in the horizontal long, vertical long, and short axis views. A gated Cardiolite study at peak stress was obtained. Interpretation: Rest and stress SPECT Cardiolite nuclear imaging status post realignment, normalization, and attenuation correction demonstrate at rest areas of diminished to absence of tracer uptake in portions of the distal anterior, anteroseptal, anterior apical, and septal apical areas. Status post stress there is notation of additional areas of diminished myocardial perfusion/tracer uptake in portions of the mid to distal anterior, anteroseptal, anterolateral, anteroapical, septal apical, and lateral apical segments. There is diminished end-systolic thickening and brightening. The he did Cardiolite study demonstrates diminished myocardial and were wall motion and thickening. The reported LVEF is 39 %. Impression: 1. Rest and stress SPECT Cardiolite nuclear imaging demonstrate myocardial perfusion changes potentially compatible with areas of previous myocardial injury/infarction and post stress myocardial perfusion changes compatible with gi-infarct related stress-induced myocardial ischemia involving portions of the anterior, anteroseptal, anterolateral, and apical segments, however, contribution from sifting soft tissue attenuation/artifact and the underlying atrial dysrhythmia cannot necessarily be excluded. 2. The gated Cardiolite study reports an LVEF of 39 %. This note was generated with [employer] software. It may contain incorrect words, spelling, and punctuation that were not noted in checking the note before signing.
--- OUTSIDE RECORDS SUMMARY | 2018-05-10 06:35 | XMS RPT_ITS ---
:1950 Author Organization OHIP Support Name Relationship Address Phone DAMASO FLORES Unavailable [address] + [place] [address] HAUTER(POA), JESSICA Unavailable [address] + [place] [address] R Unavailable Unavailable Unavailable HAUTER, DAMASO Unavailable [address] + [place] [address] HAUTER(POA), JESSICA Unavailable [address] + [place] [address] R Unavailable Unavailable Unavailable HAUTER, DAMASO Unavailable [address] + [place] [address] HAUTER(POA), JESSICA Unavailable [address] + [place] [address] R Unavailable Unavailable Unavailable HAUTER, DAMASO Unavailable [address] + [place] [address] HAUTER(POA), JESSICA Unavailable [address] + [place] [address] R Unavailable Unavailable Unavailable HAUTER, DAMASO Unavailable [address] + [place] [address] HAUTER(POA), JESSICA Unavailable [address] + [place] [address] R Unavailable Unavailable Unavailable HAUTER, DAMASO Unavailable [address] + [place] [address] HAUTER(POA), JESSICA Unavailable [address] + [place] [address] R Unavailable Unavailable Unavailable HAUTER, DAMASO Unavailable [address] + [place] [address] HAUTER(POA), JESSICA Unavailable [address] + [place] [address] R Unavailable Unavailable Unavailable HAUTER, DAMASO Unavailable [address] + [place] [address] HAUTER(POA), JESSICA Unavailable [address] + [place] [address] R Unavailable Unavailable Unavailable HAUTER, DAMASO Unavailable [address] + [place] [address] HAUTER(POA), JESSICA Unavailable [address] + [place] [address] R Unavailable Unavailable Unavailable HAUTER, DAMASO Unavailable [address] + [place] [address] HAUTER(POA), JESSICA Unavailable [address] + [place] [address] R Unavailable Unavailable Unavailable HAUTER, DAMASO Unavailable [address] + [place] [address] HAUTER(POA), JESSICA Unavailable [address] + [place] [address] R Unavailable Unavailable Unavailable HAUTER, DAMASO Unavailable [address] + [place] [address] HAUTER(POA), JESSICA Unavailable [address] + [place] [address] R Unavailable Unavailable Unavailable HAUTER, DAMASO Unavailable [address] + [place] [address] HAUTER(POA), JESSICA Unavailable [address] + [place] [address] R Unavailable Unavailable Unavailable HAUTER, DAMASO Unavailable [address] + [place] [address] HAUTER(POA), JESSICA Unavailable [address] + [place] [address] R Unavailable Unavailable Unavailable HAUTER, DAMASO Unavailable [address] + [place] [address] HAUTER(POA), JESSICA Unavailable [address] + [place] [address] R Unavailable Unavailable Unavailable HAUTER, DAMASO Unavailable [address] + [place] [address] HAUTER(POA), JESSICA Unavailable [address] + [place] [address] R Unavailable Unavailable Unavailable HAUTER, DAMASO Unavailable [address] + [place] [address] HAUTER(POA), JESSICA Unavailable [address] + [place] [address] R Unavailable Unavailable Unavailable HAUTER, DAMASO Unavailable [address] + [place] [address] HAUTER(POA), JESSICA Unavailable [address] + [place] [address] R Unavailable Unavailable Unavailable HAUTER, DAMASO Unavailable [address] + [place] [address] HAUTER(POA), JESSICA Unavailable [address] + [place] [address] R Unavailable Unavailable Unavailable HAUTER, DAMASO Unavailable [address] + [place] [address] HAUTER(POA), JESSICA Unavailable [address] + [place] [address] R Unavailable Unavailable Unavailable HAUTER, DAMASO Unavailable [address] + [place] [address] HAUTER(POA), JESSICA Unavailable [address] + [place] [address] R Unavailable Unavailable Unavailable HAUTER, DAMASO Unavailable [address] + [place] [address] HAUTER(POA), JESSICA Unavailable [address] + [place] [address] R Unavailable Unavailable Unavailable HAUTER, DAMASO Unavailable [address] + [place] [address] HAUTER(POA), JESSICA Unavailable [address] + [place] [address] R Unavailable Unavailable Unavailable HAUTER, DAMASO Unavailable [address] + [place] [address] HAUTER(POA), JESSICA Unavailable [address] + [place] [address] R Unavailable Unavailable Unavailable HAUTER, DAMASO Unavailable [address] + [place] [address] HAUTER(POA), JESSICA Unavailable [address] + [place] [address] R Unavailable Unavailable Unavailable HAUTER, DAMASO Unavailable [address] + [place] [address] HAUTER(POA), JESSICA Unavailable [address] + [place] [address] R Unavailable Unavailable Unavailable HAUTER, DAMASO Unavailable [address] + [place] [address] HAUTER(POA), JESSICA Unavailable [address] + [place] [address] R Unavailable Unavailable Unavailable HAUTER, DAMASO Unavailable [address] + [place] [address] HAUTER(POA), JESSICA Unavailable [address] + [place] [address] R Unavailable Unavailable Unavailable HAUTER, DAMASO Unavailable [address] + [place] [address] HAUTER(POA), JESSICA Unavailable [address] + [place] [address] R Unavailable Unavailable Unavailable HAUTER, DAMASO Unavailable [address] + [place] [address] HAUTER(POA), JESSICA Unavailable [address] + [place] [address] R Unavailable Unavailable Unavailable HAUTER, DAMASO Unavailable [address] + [place] [address] HAUTER(POA), JESSICA Unavailable [address] + [place] [address] R Unavailable Unavailable Unavailable HAUTER, DAMASO Unavailable [address] + [place] [address] HAUTER(POA), JESSICA Unavailable [address] + [place] [address] R Unavailable Unavailable Unavailable HAUTER, DAMASO Unavailable [address] + [place] [address] HAUTER(POA), JESSICA Unavailable [address] + [place] [address] R Unavailable Unavailable Unavailable HAUTER, DAMASO Unavailable [address] + [place] [address] HAUTER(POA), JESSICA Unavailable [address] + [place] [address] R Unavailable Unavailable Unavailable HAUTER, DAMASO Unavailable [address] + [place] [address] R Unavailable Unavailable Unavailable HAUTER, DAMASO Unavailable [address] + [place] [address] HAUTER(POA), JESSICA Unavailable [address] + [place] [address] R Unavailable Unavailable Unavailable HAUTER, DAMASO Unavailable [address] + [place] [address] HAUTER(POA), JESSICA Unavailable [address] + [place] [address] R Unavailable Unavailable Unavailable HAUTER, DAMASO Unavailable [address] + [place] [address] R Unavailable Unavailable Unavailable HAUTER, DAMASO Unavailable [address] + [place] [address] HAUTER(POA), JESSICA Unavailable [address] + [place] [address] R Unavailable Unavailable Unavailable HAUTER, DAMASO Unavailable [address] + [place] [address] R Unavailable Unavailable Unavailable HAUTER, DAMASO Unavailable [address] + [place] [address] R Unavailable Unavailable Unavailable HAUTER, DAMASO Unavailable [address] + [place] [address] R Unavailable Unavailable Unavailable HAUTER, DAMASO Unavailable [address] + [place] [address] R Unavailable Unavailable Unavailable HAUTER, DAMASO Unavailable [address] + [place] [address] HAUTER(POA), JESSICA Unavailable [address] + [place] [address] R Unavailable Unavailable Unavailable HAUTER, DAMASO Unavailable [address] + [place] [address] R Unavailable Unavailable Unavailable HAUTER, DAMASO Unavailable [address] + [place] [address] HAUTER(POA), JESSICA Unavailable [address] + [place] [address] R Unavailable Unavailable Unavailable HAUTER, DAMASO Unavailable [address] + [place] [address] R Unavailable Unavailable Unavailable HAUTER, DAMASO Unavailable [address] + [place] [address] R Unavailable Unavailable Unavailable HAUTER, DAMASO Unavailable [address] + [place] [address] R Unavailable Unavailable Unavailable HAUTER, DAMASO Unavailable [address] + [place] [address] R Unavailable Unavailable Unavailable HAUTER, DAMASO Unavailable [address] + [place] [address] R Unavailable Unavailable Unavailable HAUTER, DAMASO Unavailable [address] + [place] [address] R Unavailable Unavailable Unavailable HAUTER, DAMASO Unavailable [address] + [place] [address] R Unavailable Unavailable Unavailable HAUTER, DAMASO Unavailable [address] + [place] [address] R Unavailable Unavailable Unavailable HAUTER, DAMASO Unavailable [address] + [place] [address] R Unavailable Unavailable Unavailable HAUTER, DAMASO Unavailable [address] + [place] [address] R Unavailable Unavailable Unavailable HAUTER, DAMASO Unavailable [address] + [place] [address] R Unavailable Unavailable Unavailable HAUTER, DAMASO Unavailable [address] + [place] [address] R Unavailable Unavailable Unavailable HAUTER, DAMASO Unavailable [address] + [place] [address] R Unavailable Unavailable Unavailable HAUTER, DAMASO Unavailable [address] + [place] [address] HAUTER(POA), JESSICA Unavailable [address] + [place] [address] R Unavailable Unavailable Unavailable HAUTER, DAMASO Unavailable [address] + [place] [address] HAUTER(POA), JESSICA Unavailable [address] + [place] [address] R Unavailable Unavailable Unavailable HAUTER, DAMASO Unavailable [address] + [place] [address] HAUTER(POA), JESSICA Unavailable [address] + [place] [address] R Unavailable Unavailable Unavailable HAUTER, DAMASO Unavailable [address] + [place] [address] HAUTER(POA), JESSICA Unavailable [address] + [place] [address] R Unavailable Unavailable Unavailable HAUTER, DAMASO Unavailable [address] + [place] [address] HAUTER(POA), JESSICA Unavailable [address] + [place] [address] R Unavailable Unavailable Unavailable HAUTER, DAMASO Unavailable [address] + [place] [address] HAUTER(POA), JESSICA Unavailable [address] + [place] [address] R Unavailable Unavailable Unavailable HAUTER, DAMASO Unavailable [address] + [place] [address] HAUTER(POA), JESSICA Unavailable [address] + [place] [address] R Unavailable Unavailable Unavailable Care Team Providers Name Role Phone Lee Hernandez Attending Unavailable Lee Hernandez Referring Unavailable [facility] Unavailable Kike Nevarez Admitting Unavailable Charlie King D.O. Consulting Unavailable Billie Maciel Attending Unavailable Lee Hernandez Consulting Unavailable Roque, Kike Admitting Unavailable Lee Hernandez Attending Unavailable [facility] Unavailable Lee Hernandez Consulting Unavailable Kike Nevarez Consulting Unavailable Roque, Kike Admitting Unavailable [facility] Unavailable Lee Hernandez Consulting Unavailable Roque, Kike Attending Unavailable Roque, Kike Consulting Unavailable Roque, Kike Admitting Unavailable Charlie King D.O. Attending Unavailable [facility] Unavailable Lee Hernandez Consulting Unavailable Roque, Kike Referring Unavailable Kike Nevarez Consulting Unavailable Kike Nevarez Admitting Unavailable Lee Hernandez Attending Unavailable [facility] Unavailable Lee Hernandez Consulting Unavailable Kike Nevarez Consulting Unavailable Kike Nevarez Admitting Unavailable Pascual Maloney Attending Unavailable [facility] Unavailable Moodismichael, Lee Consulting Unavailable Roque, Kike Consulting Unavailable Roque, Kike Admitting Unavailable AngelisLee rodriguez Attending Unavailable [facility] Unavailable MoodLee amin Consulting Unavailable Roque, Kike Consulting Unavailable Roque, Kike Admitting Unavailable Kike Nevarez Attending Unavailable [facility] Unavailable Lee Hernandez Consulting Unavailable Kike Nevarez Consulting Unavailable Kike Nevarez Admitting Unavailable Lee Hernandez Attending Unavailable [facility] Unavailable MoodisLee rodriguez Consulting Unavailable Kike Nevarez Consulting Unavailable Roque, Kike Admitting Unavailable Kike Nevarez Attending Unavailable [facility] Unavailable Charlie King D.O. Consulting Unavailable Lee Hernandez Consulting Unavailable Kike Nevarez Consulting Unavailable Kike Nevarez Admitting Unavailable Charlie King D.O. Attending Unavailable [facility] Unavailable Charlie King D.O. Consulting Unavailable Kike Nevarez Referring Unavailable Lee Hernandez Consulting Unavailable Kike Nevarez Consulting Unavailable Kike Nevarez Admitting Unavailable Jopperi, Miles Attending Unavailable [facility] Unavailable Charlie King D.O. Consulting Unavailable Moodispaw, Lee Consulting Unavailable Jopperi, Miles Consulting Unavailable Tereletsky, Kike Admitting Unavailable Charlie King D.O. Attending Unavailable [facility] Unavailable Charlie King D.O. Consulting Unavailable Daeky Kike Referring Unavailable Moodispaw, Lee Consulting Unavailable Jopperi, Miles Consulting Unavailable Tereletsky, Kike Admitting Unavailable Moodispaw, Lee Attending Unavailable [facility] Unavailable Charlie King D.O. Consulting Unavailable Moodispaw, Lee Consulting Unavailable Jopperi, Miles Consulting Unavailable Tereletsky, Kike Admitting Unavailable Jopperi, Miles Attending Unavailable [facility] Unavailable Charlie King D.O. Consulting Unavailable Moodispaw, Lee Consulting Unavailable Jopperi, Miles Consulting Unavailable Consueloeletsky, Kike Admitting Unavailable Charile King D.O. Attending Unavailable [facility] Unavailable Charlie King D.O. Consulting Unavailable Moodispaw, Lee Consulting Unavailable Jopperi, Miles Consulting Unavailable Tereletsky, Kike Admitting Unavailable Moodispaw, Lee Attending Unavailable [facility] Unavailable Charlie King D.O. Consulting Unavailable Moodispaw, Lee Consulting Unavailable Jopperi, Miles Consulting Unavailable Tereletsky, Kike Admitting Unavailable Ashelfah, Ghasem Attending Unavailable [facility] Unavailable Charlie King D.O. Consulting Unavailable Moodispaw, Lee Consulting Unavailable Ashelfah, Ghasem Consulting Unavailable Tereletsky, Kike Admitting Unavailable Moodispaw, Lee Attending Unavailable [facility] Unavailable Charlie King D.O. Consulting Unavailable Moodispaw, Lee Consulting Unavailable Ashelfah, Ghasem Consulting Unavailable Tereletsky, Kike Admitting Unavailable Ashelfah, Ghasem Attending Unavailable [facility] Unavailable Charlie King D.O. Consulting Unavailable Moodispaw, Lee Consulting Unavailable Ashelfah, Ghasem Consulting Unavailable Tereletsky, Kike Admitting Unavailable Moodispaw, Lee Attending Unavailable [facility] Unavailable Charlie Knig D.O. Consulting Unavailable Moodispaw, Lee Consulting Unavailable Ashelfah, Ghasem Consulting Unavailable Tereletsky, Kike Admitting Unavailable Ashelfah, Ghasem Attending Unavailable [facility] Unavailable Charlie King D.O. Consulting Unavailable Moodispaw, Lee Consulting Unavailable Ashelfah, Ghasem Consulting Unavailable Tereletsky, Kike Admitting Unavailable Moodispaw, Lee Attending Unavailable [facility] Unavailable Charlie King D.O. Consulting Unavailable Moodispaw, Lee Consulting Unavailable Ashelfah, Ghasem Consulting Unavailable Consueloeletsky, Kike Admitting Unavailable Moodismichael, Lee Attending Unavailable [facility] Unavailable Charlie King D.O. Consulting Unavailable Moodispaw, Lee Consulting Unavailable Ashelfah, Ghasem Consulting Unavailable Tereletsky, Kike Admitting Unavailable Ashelfah, Ghasem Attending Unavailable [facility] Unavailable Charlie King D.O. Consulting Unavailable Moodispaw, Lee Consulting Unavailable Ashelfah, Ghasem Consulting Unavailable Tereletsky, Kike Admitting Unavailable Ashelfah, Ghasem Attending Unavailable [facility] Unavailable Charlie King D.O. Consulting Unavailable Moodispaedyta, Lee Consulting Unavailable Ashelfah, Ghasem Consulting Unavailable Tereletsky, Kike Admitting Unavailable Ashelfah, Ghasem Attending Unavailable [facility] Unavailable Charlie King D.O. Consulting Unavailable Moodispaw, Lee Consulting Unavailable Ashelfah, Ghasem Consulting Unavailable Tereletsky, Kike Admitting Unavailable Bela Canales Attending Unavailable [facility] Unavailable Charlie King D.O. Consulting Unavailable Moodispaw, Lee Consulting Unavailable Ashelfah, Ghasem Consulting Unavailable Tereletsky, Kike Admitting Unavailable Ashelfah, Ghasem Attending Unavailable [facility] Unavailable Charlie King D.O. Consulting Unavailable Moodispaw, Lee Consulting Unavailable Ashelfah, Ghasem Consulting Unavailable Emory, Ryan Chi Admitting Unavailable Emory, Ryan Chi Attending Unavailable [facility] Unavailable Lisbet Stephens Attending Unavailable Moodispaw, Lee Attending Unavailable [facility] Referring Unavailable [facility] Unavailable Marshall Newman Attending Unavailable Miles Townsend Referring Unavailable Marshall Newman Attending Unavailable Miles Townsend Referring Unavailable Esther Arce Attending Unavailable [facility] Referring Unavailable Esther Arce Attending Unavailable [place], Sanchez Primary Care Unavailable Emory, Ryan Chi Consulting Unavailable Arce, Esther Attending Unavailable [facility] Primary Care Unavailable Mary, Lee Attending Unavailable Lee Hernandez Referring Unavailable Mary, Lee Attending Unavailable Terdima, Kike Referring Unavailable Moodispaedyta, Lee Attending Unavailable Ashelfah, Ghasem Referring Unavailable Arce, Esther Attending Unavailable [facility] Primary Care Unavailable Ritika, Adryan Attending Unavailable Marshall Newman Attending Unavailable Arce, Esther Referring Unavailable Arce, Esther Attending Unavailable [facility] Referring Unavailable Ritika, Adryan Attending Unavailable Emory, Ryan Chi Referring Unavailable Jimmy FernandoO. Attending Unavailable Arce, Esther Referring Unavailable Arce, Esther Attending Unavailable [facility] Primary Care Unavailable Arce, Esther Referring Unavailable [facility] Unavailable Agyepong, Wyatt Admitting Unavailable Kathie Fernando.O. Consulting Unavailable Lee Ramirez Attending Unavailable Michele Mojica Consulting Unavailable Agyepong, Wyatt Admitting Unavailable Agyepong, Wyatt Attending Unavailable [facility] Unavailable Roque, Kike Consulting Unavailable Agyepong, Wyatt Admitting Unavailable TerelizabethkyKike Attending Unavailable [facility] Primary Care Unavailable Kike Nevarez Consulting Unavailable Agyepong, Wyatt Admitting Unavailable Comanche, Isabelle Attending Unavailable [facility] Unavailable Kathie Fernando.O. Consulting Unavailable [place], Isabelle Consulting Unavailable Agyepong, Wyatt Admitting Unavailable Kathie Fernando.O. Attending Unavailable [facility] Unavailable Kathie Fernando.O. Consulting Unavailable [place], Isabelle Consulting Unavailable [facility] Sanchez Attending Unavailable [facility] Primary Care Unavailable Agyepong, Wyatt Admitting Unavailable Comanche, Isabelle Attending Unavailable [facility] Primary Care Unavailable Kathie Fernando.O. Consulting Unavailable [place]anche, Isabelle Consulting Unavailable Agyepong, Wyatt Admitting Unavailable Kathie Fernando.O. Attending Unavailable [facility] Unavailable Kathie Fernando.O. Consulting Unavailable Lee Ramirez Consulting Unavailable Agyepong, Wyatt Admitting Unavailable Lee Ramirez Attending Unavailable [facility] Primary Care Unavailable Kathie Fernando.O. Consulting Unavailable Lee Ramirez Consulting Unavailable Agyepong, Wyatt Admitting Unavailable Lee Ramirez Attending Unavailable [facility] Primary Care Unavailable Charlie King D.O. Consulting Unavailable Lee Ramirez Consulting Unavailable Agyetoyag, Wyatt Admitting Unavailable Charlie King D.O. Attending Unavailable [facility] Primary Care Unavailable Kathie Fernando.Aixa. Consulting Unavailable Lee Ramirez Consulting Unavailable Agyetoyag, Wyatt Admitting Unavailable Kathie Fernando.O. Attending Unavailable [facility] Primary Care Unavailable Kathie Fernando.O. Consulting Unavailable Lee Ramirez Consulting Unavailable Geno, Wyatt Admitting Unavailable Michele Mojica Attending Unavailable [facility] Primary Care Unavailable Kathie Fernando.O. Consulting Unavailable Michele oMjica Consulting Unavailable Lee Ramirez Consulting Unavailable Geno, Wyatt Admitting Unavailable Lee Ramirez Attending Unavailable [facility] Primary Care Unavailable Kathie Fernando.O. Consulting Unavailable Michele Mojica Consulting Unavailable Lee Ramirez Consulting Unavailable Agsumit, Wyatt Admitting Unavailable Kathie Fernando.O. Attending Unavailable [facility] Unavailable Kathie Fernando.Aixa. Consulting Unavailable Michele Mojica Consulting Unavailable Lee Ramirez Consulting Unavailable Lee Hernandez Attending Unavailable Regan, Sanchez Referring Unavailable MoodispaLee lan Attending Unavailable MoodisLee rodriguez Referring Unavailable [facility] Primary Care Unavailable Esther Arce Attending Unavailable [place], Sanchez Referring Unavailable REGAN, SANCHEZ Ricardo Referring Unavailable REGAN, SANCHEZ Ricardo Attending Unavailable REGAN, SANCHEZ Ricardo Referring Unavailable REGAN, SANCHEZ Ricardo Attending Unavailable REGAN, SANCHEZ Ricardo Attending Unavailable REGAN, SANCHEZ Ricardo Referring Unavailable REGAN, SANCHEZ Ricardo Attending Unavailable REGAN, SANCHEZ Ricardo Referring Unavailable REGAN, SANCHEZ Ricardo Attending Unavailable REGAN, SANCHEZ Ricardo Referring Unavailable REGAN, SANCHEZ Ricardo Referring Unavailable REGAN, SANCHEZ Ricardo Referring Unavailable Tanisha SANDERS (PARaphaelC) Attending Unavailable GENIE SHIN (FACTORY MACHINE COMPUTER OPERATOR) Attending Unavailable RYAN CAT CHI Referring Unavailable DALTON REYNOSO Admitting Unavailable SHARAN THOMAS Attending Unavailable MORGAN WINTER (PA-C) Referring Unavailable REGAN, SANCHEZ Ricardo Attending Unavailable REGAN, SANCHEZ Ricardo Referring Unavailable REGAN, SANCHEZ Ricardo Referring Unavailable WISWELLANNE Attending Unavailable REGAN, SANCHEZ Ricardo Referring Unavailable WISWELL, ANNE Referring Unavailable WISWELL, ANNE Referring Unavailable MOODISLEE RODRIGUEZ Referring Unavailable OCHOA THORNTON Attending Unavailable [place] Spears MD Primary Care Unavailable PROBLEMS PROBLEMS DATE TYPE CONDITION / CODE ATTENDING STATUS SOURCE 03/26/2018 Active 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 / [facility] C54.1(ICD-10) [place] Repository 04/03/2018 Unknown R06.02 - Shortness of Moodispaw, Active [place] breath / [facility] R06.02(ICD-10) Hospital Repository 03/02/2018 Unknown I48.92 - Unspecified Moodisp[place], Active [place] atrial flutter / [facility] I48.92(ICD-10) Hospital Repository 03/02/2018 Unknown I42.9 - Moodispaw, Active [place] Cardiomyopathy, [facility] unspecified / Hospital I42.9(ICD-10) Repository 02/28/2018 Active 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, unspecified / [facility] N28.9(ICD-10) [place] Repository 02/28/2018 Active Acute on chronic NA Active [place] combined systolic [facility] (congestive) and [place] diastolic (congestive) Repository heart failure / I50.43(ICD-10) 02/28/2018 Active Chronic obstructive NA Active [place] pulmonary disease, Clinic [facility] unspecified / [place] J44.9(ICD-10) Repository 02/21/2018 Active Morbid (severe) SRIDEVI, Active [place] obesity due to excess SHARAN M Clinic Main calories / [place] E66.01(ICD-10) Repository 02/21/2018 Active Unspecified atrial SRIDEVI, Active [place] fibrillation / [facility] I48.91(ICD-10) [place] Repository 02/21/2018 Active Hemothorax / SRIDEVI, Active [place] J94.2(ICD-10) [facility] [place] Repository 02/21/2018 Active Acute kidney failure, SRIDEVI, Active [place] unspecified / [facility] N17.9(ICD-10) [place] Repository 02/21/2018 Active Acute respiratory SRIDEVI, Active [place] failure with hypoxia / [facility] J96.01(ICD-10) [place] Repository 02/11/2018 Active Pleural effusion, not SRIDEVI, Active [place] elsewhere classified / [facility] J90(ICD-10) [place] Repository 02/11/2018 Active Acute on chronic SRIDEVI, Active [place] diastolic (congestive) [facility] heart failure / [place] I50.33(ICD-10) Repository 02/11/2018 Active Acute and chronic SRIDEVI, Active [place] respiratory failure, [facility] Main unspecified whether [place] with hypoxia or Repository hypercapnia / J96.20(ICD-10) 02/07/2018 Unknown Z51.89 - Encounter for Sanchez Spears Active [place] other specified Community aftercare / Hospital Z51.89(ICD-10) Repository 01/29/2018 Unknown G47.33 - Obstructive Arce, Active [place] sleep apnea (adult) Esther [facility] (pediatric) / Hospital G47.33(ICD-10) Repository 01/04/2018 Unknown J44.9 - Chronic Arce, Active [place] obstructive pulmonary [facility] [place] disease, unspecified / Hospital J44.9(ICD-10) Repository 01/04/2018 Unknown Z23 - Encounter for Arce, Active [place] immunization / [facility] [place] Z23(ICD-10) Hospital Repository 12/14/2017 Active Unknown / UNK(Unknown) SERGIO, Active [facility] ([facility]) [facility] Main [place] Repository 01/08/2018 Unknown I10 - Essential Ritika, [place] Active [place] (primary) hypertension Community / I10(ICD-10) Hospital Repository 01/08/2018 Unknown R94.31 - Abnormal Ritika, Adryan Active [place] electrocardiogram Community [ECG] [EKG] / Hospital R94.31(ICD-10) Repository 01/08/2018 Unknown I45.10 - Unspecified Ritika, [place] Active [place] right bundle-branch Community block / I45.10(ICD-10) Hospital Repository 12/08/2017 Unknown R53.81 - Other malaise Emory, Ryan Chi Active [place] / R53.81(ICD-10) Community Hospital Repository 12/27/2017 Unknown R00.1 - Bradycardia, [place], Active [place] unspecified / [place] Community R00.1(ICD-10) Hospital Repository 12/07/2017 Unknown J14 - Pneumonia due to Marshall Newman Active [place] Hemophilus influenzae Community / J14(ICD-10) Hospital Repository 12/07/2017 Unknown J96.01 - Acute Anat, [place] Active [place] respiratory failure Community with hypoxia / Hospital J96.01(ICD-10) Repository 12/07/2017 Unknown J96.02 - Acute Anat, [place] Active [place] respiratory failure Community with hypercapnia / Hospital J96.02(ICD-10) Repository 12/07/2017 Unknown G93.40 - AnatMarshall tirado Active [place] Encephalopathy, Community unspecified / Hospital G93.40(ICD-10) Repository 12/07/2017 Unknown I49.2 - Junctional AnatMarshall tirado Active [place] premature Community depolarization / Hospital I49.2(ICD-10) Repository 12/07/2017 Unknown N17.9 - Acute kidney AnatMarshall tirado Active [place] failure, unspecified / Community N17.9(ICD-10) Hospital Repository 12/07/2017 Unknown E66.01 - Morbid AnatMarshall tirado Active [place] (severe) obesity due Community to excess calories / Hospital E66.01(ICD-10) Repository 12/07/2017 Unknown K21.9 - AnatMarshall tirado Active [place] Gastro-esophageal Community reflux disease without Hospital esophagitis / Repository K21.9(ICD-10) 10/23/2017 Active Encounter for NA Active [place] screening mammogram Clinic Main for malignant neoplasm [place] of breast / Repository Z12.31(ICD-10) 09/28/2017 Active 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 / Clinic Main K82.4(ICD-10) [place] Repository 09/22/2017 Active Encounter for NA Active [place] screening for other Clinic Main viral diseases / [place] Z11.59(ICD-10) Repository 09/22/2017 Active Abnormal levels of NA Active [place] other serum enzymes / Clinic Main R74.8(ICD-10) [place] Repository 09/22/2017 Active Secondary polycythemia NA Active [place] / D75.1(ICD-10) Clinic Main [place] Repository 09/22/2017 Active Chronic kidney NA Active [place] disease, stage 3 Clinic Main (moderate) / [place] N18.3(ICD-10) Repository 07/04/2017 Active Epigastric pain / NA Active [place] R10.13(ICD-10) Clinic Main [place] Repository 06/26/2017 Active Gastro-esophageal NA Active [place] reflux disease without Clinic Main esophagitis / [place] K21.9(ICD-10) Repository 06/26/2017 Active Generalized abdominal NA Active [place] pain / R10.84(ICD-10) Clinic Main [place] Repository 01/16/2015 Active Prediabetes / NA Active [place] R73.03(ICD-10) [facility] [place] Repository 04/14/2017 Active Essential (primary) NA Active [place] hypertension / Clinic Main I10(ICD-10) [place] Repository 04/14/2017 Active Personal history of NA Active [place] malignant neoplasm of [facility] Main other parts of uterus [place] / Z85.42(ICD-10) Repository 04/14/2017 Active Encounter for NA Active [place] screening for [facility] Main malignant neoplasm of [place] colon / Z12.11(ICD-10) Repository PROCEDURES PROCEDURES No Procedure Records FoundRESULTS RESULTS PROGRESS Observed: 03/26/2018 Status: COMPLETED Source: [place] 9:38 AM [facility] REPOSITORY HNO ID: [id number] Author: Liset Hurst Service: (none) Author Type: (none) Type: Progress Notes Filed: 03/26/2018 9:38 AM Note Text: Radiology Service Progress Note PATIENT NAME: Alba Flores DATE OF SERVICE: March 26, 2018 TIME: 9:38 AM PATIENT IDENTITY VERIFICATION COMPLETED USING TWO (2) METHODS: Patient confirmed name verbally and Date of . PATIENT GENDER DATA: Female. status: : No status: NO. PATIENT RELEVANT IMPLANT DATA REVIEWED: Not Applicable RADIOLOGY DEPARTMENT: CT; Exam(s) Completed: Abdomen/Pelvis PERIPHERAL IV DATA: Not applicable SIGNED BY: Liset Hurst March 26, 2018 9:[address] ABD/PEL WO IVCON Observed: 03/26/2018 Status: F Source: [place] 9:38 AM [facility] REPOSITORY * * *Final Report* * * DATE OF EXAM: Mar 26 2018 9:38AM [facility] 0531 - CT ABD/PEL WO IVCON / PROCEDURE REASON: Malignant neoplasm of endometrium (HCC) * * * * Physician Interpretation * * * * EXAMINATION: CT ABDOMEN AND PELVIS WITHOUT IV CONTRAST CLINICAL HISTORY: Malignant neoplasm of endometrium (HCC) Patient has history of endometrial cancer and is s/p hysterectomy for this. New vaginal bleeding. CTAP without contrast to assess for vaginal cuff recurrence. Hx vaginal bleeding,uterine ca prior ,alex,bso,appy kmr TECHNIQUE: Non-IV contrast imaging of the abdomen and pelvis was performed using standard technique, scanning from just above the dome of the diaphragm to the symphysis pubis. Unenhanced imaging is limited for the evaluation of some intra-abdominal and pelvic pathology. MQ: [id number]_3 Contrast: IV: None Oral: 50 ml of 50ML Omnipaque [address] Radiation dose: Integrated Dose-length product (DLP) for this visit = 1306 mGy*cm. CT Dose Reduction Employed: Automated exposure control(AEC) and iterative recon COMPARISON: CT abdomen and pelvis 02/04/2015 RESULT: Liver: No mass. Homogeneous texture. Biliary: No ductal dilatation is seen. Gallbladder is unremarkable. Spleen: Spleen is unremarkable. Pancreas: No mass or duct dilation. Adrenals: Adrenal glands are unremarkable. Kidneys: Punctate nonobstructing calcifications in each kidney. No evidence of obstruction or other focal abnormalities. GI tract: No bowel dilatation is seen. No evidence of obstruction. Lymph nodes: No evidence of adenopathy. Mesentery/Peritoneum: No ascites or mass. Vasculature: No evidence of dilatation of the abdominal aorta. Pelvis: No mass, ascites or fluid collections. Interval hysterectomy. Bones/Soft Tissues: No significant findings identified. Lower thorax: New small bilateral pleural effusions. There is also some LEFT basilar atelectasis and/or infiltrate. IMPRESSION: 1. Small bilateral pleural effusions bilateral pleural effusions. Similar to the previous study but some improvement in the bibasilar atelectasis and/or infiltrate 2. Otherwise unremarkable Acid Mixer: MYLA Transcribe Date/Time: Mar 26 2018 3:36P Dictated by : NIKKI KUMAR DO This examination was interpreted and the report reviewed and electronically signed by: NIKKI KUMAR DO on Mar 27 2018 4:41PM EST [id number] PROGRESS Observed: 03/23/2018 Status: COMPLETED Source: [place] 3:[address] [facility] REPOSITORY HNO ID: [id number] Author: Rin (Rn) Farhana Service: (none) Author Type: Registered Nurse Type: Progress Notes Filed: 03/27/2018 8:46 AM Note Text: TRANSITION CARE MANAGEMENT (TCM) FOLLOW-UP NOTE Provider Action/FYI FYI Patient identified by name and date of : YES Spoke to patient Summary: Patient feeling very well. Saw Dr. King, pulmonology and wants to stay with him for care. States MD feels with CPAP pt is doing excellent Pulse Ox at home 94-95% Pt will have 6 min walk test without oxygen at next pulmonary visit No cough No LE edema Continues to lose weight. Wt-305 lbs (down 60 lbs) Event Staff plan for next outreach: Will follow up one month Signature Rin Delcid RN March 23, 2018 [place] Observed: 03/23/2018 Status: COMPLETED Source: [place] 12:00 AM [facility] REPOSITORY Patient Outreach (FAMPWS) ALBA FLORES ([id number]) 1950 F Date Time Provider Department 03/23/18 RIN DELCID (RN) FAMPWS During your visit today, we recorded the following information about you: Rin Delcid RN 03/27/2018 8:46 AM Signed TRANSITION CARE MANAGEMENT (TCM) FOLLOW-UP NOTE Provider Action/FYI FYI Patient identified by name and date of : YES Spoke to patient Summary: Patient feeling very well. Saw Dr. King, pulmonology and wants to stay with him for care. States MD feels with CPAP pt is doing excellent Pulse Ox at home 94-95% Pt will have 6 min walk test without oxygen at next pulmonary visit No cough No LE edema Continues to lose weight. Wt-305 lbs (down 60 lbs) Event Staff plan for next outreach: Will follow up one month Signature Rin Delcid RN March 23, 2018 Allergies As of Date: 03/23/2018 Noted Allergy Reaction ASA (ASPIRIN) 01/16/2015 8 - GI Upset Date Reviewed: 03/20/2018 Reviewed by: Liset Hurst - Fully Assessed Reason for Visit: Sign [facility] Follow Up [9602] Cmt: TCM F/U Call Reason For Visit History Recorded Prescriptions as of 03/23/2018 Sig: ASPIRIN 81 MG CHEWABLE TABLET Take 1 tablet by mouth once d* CALCIUM CARBONATE-VITAMIN D3 * Take 1 tablet by mouth once d* COMPOUNDED PRESCRIPTION Humidifier for oxygen DX: hy* FISH OIL ORAL Take by mouth. FUROSEMIDE 40 MG TABLET Take 1 tablet by mouth once d* LISINOPRIL 2.5 MG TABLET Take 1 tablet by mouth once d* MENTHOL 0.44 %-ZINC OXIDE 20.* Apply 1 application to affect* METOPROLOL TARTRATE 50 MG TAB* Take 1 tablet by mouth every * NYSTATIN 100,000 UNIT/GRAM TO* Apply 1 application to affect* OMEPRAZOLE 20 MG CAPSULE,CECILIA* Take 1 capsule by mouth once * OXYGEN (HOME THERAPY) 2 L/min by Nasal Cannula rout* Problem List As Of Date 03/23/2018 Noted Resolved HTN (hypertension) [I10] More... Borderline diabetes [R73.03] INVALID FOR* Endometrial cancer, grade I (HCC) [C54.1] INVALID FOR* More... Morbid obesity (HCC) [E66.01] INVALID FOR* Osteopenia [M85.80] INVALID FOR* Atrial flutter with rapid ventricular response *INVALID FOR*02/16/2018 Atrial fibrillation (HCC) [I48.91] INVALID FOR* More... GERD (gastroesophageal reflux disease) [K21.9] INVALID FOR* COPD (chronic obstructive pulmonary disease) (H*INVALID FOR* More... Obesity, Class III, BMI >= 40 [E66.01] INVALID FOR* Respiratory failure (HCC) [J96.90] INVALID FOR*02/21/2018 More... EKATERINA (acute kidney injury) (HCC) [N17.9] INVALID FOR*02/21/2018 More... Hemothorax on left [J94.2] INVALID FOR* More... Encounter Status:Closed by RIN DELCID on 03/27/18 PULMONARY VISIT REPORT Observed: 03/21/2018 Status: F Source: [place] 3:48 PM [facility] REPOSITORY [facility] Pulmonary Medicine of [address] [place] [address] OFFICE VISIT Date of Service: 03/20/18 MR#: [id number] Acct: [id number] Name: ALBA FLORES Rep #: [id number] : 1950 Provider: Esther Arce Age/Sex: 68/F Location: [facility].PMW Status: Signed Assessment AND Plan 1. CECILIA (obstructive sleep apnea) G47.33 Plan Patient is using and benefiting from Pap therapy. No indication for titration study at this time. Continue to encourage weight loss. Contact the office for any new or worsening symptoms in the meantime. Follow-up in 3 months. 2. Atrial flutter with rapid ventricular response I48.92 Plan Complicates exam, plan, care and prognosis. 3. Chronic obstructive pulmonary disease, unspecified COPD type J44.9 Plan Does not appear to be an exacerbation of COPD today. No need for prednisone or antibiotic. Continue current maintenance medication. No additional testing at this time. Contact the office for any new or worsening symptoms. An acute visit and typically be arranged within 1-2 days. Follow-up in 3 months. 4. Acute respiratory failure with hypoxia and hypercapnia J96.01 Plan The patient is using and benefiting from oxygen. Continue to utilize to maintain a saturation of 89-92%. Follow-up in 3 months. Plan Detail Other Medications Discontinued: ipratropium-albuterol 0.5 mg-3 mg(2.5 mg base)/3 mL Disc3 mL Inhalation Q4H.RT 0RF ontinued Reason: Pt no longer taking amiodarone Annulus infusion 1 mg/min DC after 200 mL's a360 mg (200 mL) IV CONT #1 0RF nd then 0.5/min afterwards Discontinued Reason: Urmila paez Order Follow Up 3 Months ([facility]) HPI 3 M FU: Chief Complaint: Shortness of breath on exertion HPI Comments Details: This patient presents the office for follow-up on her COPD, chronic respiratory failure and obstructive sleep apnea. She is currently in a wheelchair, wearing nasal cannula oxygen and accompanied today by her family. She has not been seen in the ED or urgent care for respiratory illnesses since her last office visit. She has not required any antibiotics or prednisone for any breathing problems. She is not currently on any maintenance inhalers. She does have a Ventolin rescue inhaler but states that she has not needed to use it in over a month. She is compliant with Lasix daily. She is using her supplemental oxygen at 2 L/min during the day, and is compliant with 6 L/min bleed into her BiPAP. She does not currently have a portable pulse oximeter. She experiences shortness of breath on exertion only. She denies any chest pain, wheezing, chest tightness or palpitations. She does not have a cough, sputum production or hemoptysis. She denies any fever, chills or body aches. She reports that her lower extremity edema has significantly improved. She is happy to report she is down 60 pounds due to portion control and compliance with diuretics. Compliance report for the past 30 days has been reviewed and shows 87% compliance average usage 9 hours 19 minutes. Current settings are 14/8 cm of water with a 6 L/min bleed AHI is controlled at an average of 0.8 events per hour and weeks did not appear to be an issue. Intake Vital Signs03/20/18 Body Mass Index (BMI) 55.7 03/20/18 Height 5 ft 3 in 03/20/18 Weight: 306 lb 03/20/18 Body Mass Index (BMI) 54.1 Intake Visit Reasons: 3 [place] [facility] [place] YAMEL Accompanied by: Family / Other Allergies aspirin [ASA] Adverse Reaction (Verified 03/20/18 10:19) stomach burning and sick to stomach propoxyphene HCl [From Darvon] Adverse Reaction (Verified 03/20/18 10:19) i get dizzy and pass out Medications Lorazepam [Ativan] 0.5 mg PO Q6H PRN PRN #14 tab 12/05/17 [Rx Confirmed 03/20/18] Metoprolol Tartrate [Lopressor (beta maeve)] 50 mg PO BID #60 tab 12/05/17 [Rx Confirmed 03/20/18] Pantoprazole Sodium [Protonix] 20 mg PO DAILY #30 tab 12/05/17 [Rx Confirmed 03/20/18] albuterol sulfate HFA 90 mcg/actuation aerosol inhaler 2 puff INHALATION Q4H PRN #18 g 01/04/18 [Rx Confirmed 03/20/18] AcetaAZOLAMIDE [Diamox] 125 mg PO BIDCM tab 02/10/18 [Rx Confirmed 03/20/18] Acetaminophen [Tylenol Tablet] 650 mg PO Q6H PRN PRN tab 02/10/18 [Rx Confirmed 03/20/18] Albuterol Aerosols [Ventolin Aerosols] 2.5 mg INHALATION Q2H PRN PRN vial.neb. 02/10/18 [Rx Confirmed 03/20/18] Bisacodyl [Dulcolax] 5 mg PO DAILY PRN PRN tab 02/10/18 [Rx Confirmed 03/20/18] Calcium Carb/Vitamin D [Os-Jose 500MG + D] 1 tab PO DAILY tab 02/10/18 [Rx Confirmed 03/20/18] Guaifenesin [Mucinex] 600 mg PO BID tab 02/10/18 [Rx Confirmed 03/20/18] Magnesium Hydroxide [Milk Of Magnesia] 30 ml PO DAILY PRN udc 02/10/18 [Rx Confirmed 03/20/18] Menthol/Lanolin/Calamine/Znox [Calmoseptine Ointment] 1 applic TOPICAL 4X/DAY PRN tube 02/10/18 [Rx Confirmed 03/20/18] Nystatin Powder [Mycostatin Powder] 1 applic TOPICAL BID bottle 02/10/18 [Rx Confirmed 03/20/18] Ondansetron [Zofran] 4 mg IV Q8H PRN PRN vial 02/10/18 [Rx Confirmed 03/20/18] Potassium Chloride [K-Dur] 20 meq PO DAILYCM tab 02/10/18 [Rx Confirmed 03/20/18] Sodium Chloride 0.65% [[place] Nasal [place]] 2 spray NASAL TID PRN PRN spray.btl 02/10/18 [Rx Confirmed 03/20/18] aspirin 81 mg tablet,delayed release 81 mg PO DAILY 03/02/18 [History Confirmed 03/20/18] furosemide 40 mg tablet 40 mg PO DAILY 03/02/18 [History Confirmed 03/20/18] lisinopril 2.5 mg tablet 2.5 mg PO DAILY PRN 03/02/18 [History Confirmed 03/20/18] amiodarone 200 mg tablet 200 mg PO DAILY #90 tab 03/15/18 [Rx Confirmed 03/20/18] clopidogrel 75 mg tablet 75 mg PO DAILY 03/20/18 [History Confirmed 03/20/18] [facility] Medical History Abnormal stress test (Acute) Shortness of breath (Acute) Atrial flutter with rapid ventricular response (Acute) Healthcare associated bacterial pneumonia (Acute) Acute kidney injury (Acute) Chest pain (Acute) Chronic obstructive pulmonary disease (Chronic) Acute respiratory failure (Acute) Healthcare-associated pneumonia (Acute) Atrial flutter (Acute) Morbid obesity (Chronic) HTN (hypertension) (Chronic) GERD (gastroesophageal reflux disease) (Chronic) CECILIA (obstructive sleep apnea) (Acute) Surgical History History of total hysterectomy (Resolved) Family History Mother Heart disease Father Heart disease Social History Smoking Status: Former smoker how long ago did patient quit smokin, 1ppd second hand exposure: Yes alcohol intake: never substance use type: does not use Review of Systems Const CONSTITUTIONAL: Positive weight loss and weight loss; negative anorexia, body ache, chills, daytime sleepiness, fever(s), night sweats, oral thrush, stops breathing during sleep, sleeping in chair, fatigue, weight gain, frequent colds, seasonal allergies, other, headache(s) or orthopnea EETM Ear Nose Throat Mouth: Negative hard of hearing, hearing normal, hoarseness, dry mouth in morning, change in vision, itchy eyes, eye pain, swallowing Difficulty, ear pain, nose bleed, headache(s), mouth pain, nasal congestion, nasal discharge, post nasal drip, sinus pain, sinus pressure, sore throat or other Cardio Cardiovascular: Negative chest pain, chest pain at rest, chest pain with activity, irregular heart rhythm, edema, shortness of breath when lying down, palpitations, murmur or other Resp Respiratory: Positive as per HPI, shortness of breath shortness of breath: Positive with activity and cough cough: Positive non-productive and productive color: Positive thin and clear; negative pain with cough, wheezing, chest congestion, chest tightness, pain on inspiration, inhalers, increase use of rescue inhalers, snoring, apnea or other Gastro Gastrointestional: Negative bloody stools, change in appetite, difficulty swallowing, reflux, hematemesis, melena stool, loose stool, constipation or other Genitourinary: Negative blood in urine, nocturia, pain with urination or other Musc Musculoskeletal: Negative body pain, back pain, neck pain or other Skin/Breast Skin/Breast: Negative dry skin, itching, rash, unusual bruising, breast lump or other Neuro Neurological: Negative restless legs, confusion, weakness or other Psych Psychocological: Negative abnormal sleep pattern, anxiety, thoughts of hurting self/others, hopelessness or other Lymph Lymphatic: Negative easy bleeding, easy bruising, swollen lymph nodes or other Exam Const Constitutional: Positive conversant, cooperative, in no acute respiratory distress, healthy appearing, well developed, well nourished, good hygiene, obese and wearing supplemental oxygen Head Head: Positive normocephalic and atraumatic; negative cyanosis of lips/distal nose Eyes Eye: Positive clear conjunctiva; negative nystagmus or scleral abnormality Ears Ear: Positive external ears normal; negative hard of hearing or hearing normal Nose Nose: Positive external nose normal and no nasal discharge; negative epistaxis Mouth Mouth: Positive oral mucosae normal, no lesions, good dentition and crowded posterior oropharynx; negative post nasal drip, malodorous breath or oral thrush present Mallampati Score: III: Mallampati Score Neck Neck: Positive normal visual inspection, full ROM, trachea midline and thick neck; negative lymphadenopathy, JVD or tender Chest Wall Chest: Positive normal inspection of the chest and symmetric chest movement; negative increased A/P diameter Resp lung sounds: Positive clear to auscultation, diminished, normal expiratory time and normal respiratory effort; negative wheezes, rhonchi, rales, dullness to percussion or wheeze present on forced exhalation Cardio Cardiac: Positive regular rate, regular rhythm, S1 normal and S2 normal; negative murmur GI GI: Positive normal to inspection and obese; negative distended Genitourinary: Positive deferred Musc Musculoskeletal: Positive ROM normal and in a wheelchair; negative kyphosis or scoliosis Skin Pulmonary Skin Exam: Positive intact; negative rash Pulses Pulse: Yes pulses normal x4 extremities Extremities Extremities: Yes capillary refill normal, No clubbing, No cyanosis, No edema Neuro Neurologic: Yes conversant, Yes no focal neuro deficits, Yes normal concentration, Yes understands questions, Yes cooperative, Yes normal cognition, Yes normal coordination, No tremor Lymph Lymphatic: No lymphadenopathy, No tenderness, No cervical adenopathy Psych Appearance: Positive grossly normal, eye contact and well kempt Mental Status: Positive mental status grossly normal Mood: Positive congruent mood Affect: Positive normal affect Coding Level of Care Code Off vis,est,level 3 Diagnoses CECILIA (obstructive sleep apnea) G47.33 Atrial flutter with rapid ventricular response I48.92 Chronic obstructive pulmonary disease, unspecified COPD type J44.9 Acute respiratory failure with hypoxia and hypercapnia J96.01 Respiratory failure complication: hypoxia and hypercapnia 03/21/18 1548 <Electronically signed by Esther CARTER> Date Esther DUGANC Cosigner Signature: Date (if applicable) CC: Sanchez Spears MD PROGRESS Observed: 03/16/2018 Status: COMPLETED Source: [place] 4:04 PM [facility] REPOSITORY HNO ID: [id number] Author: Rin (Rn) Farhana Service: (none) Author Type: Registered Nurse Type: Progress Notes Filed: 03/16/2018 5:36 PM Note Text: TRANSITION CARE MANAGEMENT (TCM) FOLLOW-UP NOTE Provider Action/FYI Had nuclear stress test with Dr. Hernandez Scheduled for Cardiac Cath on 04/03 Pt didn't go to pulmonology appt same day as stress test. Pt wants to see Dr. Nava PCC will work on getting sooner appt Patient identified by name and date of : YES Spoke to patient Summary: States she is feeling good and O2 level is 94-96%. Reports productive cough, expectorating clear mucous. States she was diagnosed with allergies and having watery itchy eyes, sneezing and cough. Having insulation installed and days they aren't working symptoms are much better. Report slight LE edema Event Staff plan for next outreach: Will follow up next week Signature Rin Delcid RN March 16, 2018 CNPTOUTREACH Observed: 03/16/2018 Status: COMPLETED Source: [place] 12:00 AM [facility] REPOSITORY Patient Outreach (FAMPWS) HAUTER,ALBA F ([id number]) 1950 F Date Time Provider Department 03/16/18 RIN DELCID (RN) KALI During your visit today, we recorded the following information about you: Rin Delcid RN 03/16/2018 5:36 PM Signed TRANSITION CARE MANAGEMENT (TCM) FOLLOW-UP NOTE Provider Action/FYI Had nuclear stress test with Dr. Hernandez Scheduled for Cardiac Cath on 04/03 Pt didn't go to pulmonology appt same day as stress test. Pt wants to see Dr. Nava PCC will work on getting sooner appt Patient identified by name and date of : YES Spoke to patient Summary: States she is feeling good and O2 level is 94-96%. Reports productive cough, expectorating clear mucous. States she was diagnosed with allergies and having watery itchy eyes, sneezing and cough. Having insulation installed and days they aren't working symptoms are much better. Report slight LE edema Event Staff plan for next outreach: Will follow up next week Signature Rin Delcid RN March 16, 2018 Allergies As of Date: 03/16/2018 Noted Allergy Reaction ASA (ASPIRIN) 01/16/2015 8 - GI Upset Date Reviewed: 03/12/2018 Reviewed by: Anne Rankin - Fully Assessed Reason for Visit: [facility] Follow Up [4670] Cmt: TCM F/U Call #2 Reason For Visit History Recorded Prescriptions as of 03/16/2018 Sig: FUROSEMIDE 40 MG TABLET Take 1 tablet by mouth once d* LISINOPRIL 2.5 MG TABLET Take 1 tablet by mouth once d* COMPOUNDED PRESCRIPTION Humidifier for oxygen DX: hy* METOPROLOL TARTRATE 50 MG TAB* Take 1 tablet by mouth every * CALCIUM CARBONATE-VITAMIN D3 * Take 1 tablet by mouth once d* NYSTATIN 100,000 UNIT/GRAM TO* Apply 1 application to affect* MENTHOL 0.44 %-ZINC OXIDE 20.* Apply 1 application to affect* ASPIRIN 81 MG CHEWABLE TABLET Take 1 tablet by mouth once d* OXYGEN (HOME THERAPY) 2 L/min by Nasal Cannula rout* OMEPRAZOLE 20 MG CAPSULE,CECILIA* Take 1 capsule by mouth once * FISH OIL ORAL Take by mouth. Problem List As Of Date 03/16/2018 Noted Resolved HTN (hypertension) [I10] More... Borderline diabetes [R73.03] INVALID FOR* Endometrial cancer, grade I (HCC) [C54.1] INVALID FOR* More... Morbid obesity (HCC) [E66.01] INVALID FOR* Osteopenia [M85.80] INVALID FOR* Atrial flutter with rapid ventricular response *INVALID FOR*02/16/2018 Atrial fibrillation (HCC) [I48.91] INVALID FOR* More... GERD (gastroesophageal reflux disease) [K21.9] INVALID FOR* COPD (chronic obstructive pulmonary disease) (H*INVALID FOR* More... Obesity, Class III, BMI >= 40 [E66.01] INVALID FOR* Respiratory failure (HCC) [J96.90] INVALID FOR*02/21/2018 More... EKATERINA (acute kidney injury) (HCC) [N17.9] INVALID FOR*02/21/2018 More... Hemothorax on left [J94.2] INVALID FOR* More... Encounter Status:Closed by RIN DELCID on 03/19/18 STRESS REPORT Observed: 03/15/2018 Status: F Source: [place] 9:25 AM [facility] REPOSITORY [facility] Cardiovascular Services [address] [place] [address] MR#: [id number] Acct: [id number] Name: ALBA FLORES Rep #: [id number] : 1950 68 From: Lee Hernandez MD Primary Care: Sanchez Spears MD Status: REG CLI Ordering Dr: Sex: F C Stress Test Report Date: 05/15/2017 Procedure: Pharmacologic stress nuclear imaging study Indications: Shortness of breath/dyspnea; chest pain; atrial flutter Consent: Per the patient Procedure: The patient underwent pharmacologic (Regadenoson) evaluation with a peak heart rate of 106 beats per minute (70 predicted maximal heart rate) and a peak blood pressure of 124/84 mmHg. The baseline ECG demonstrated atrial flutter; right bundle branch block pattern. The peak pharmacologic ECG demonstrated no obvious ECG changes. There were no cardiac dysrhythmias pretest, during pharmacologic infusion, or recovery. There was no complaint of chest discomfort during pharmacologic infusion or recovery. The examination was discontinued secondary to completion of protocol. Impression: 1. Pharmacologic (Regadenoson) evaluation 2. Peak pharmacologic ECG with continued atrial flutter with right bundle branch block pattern. 3. There were no cardiac dysrhythmias pretest, during pharmacologic infusion, or recovery. 4. Nuclear images pending Myocardial perfusion imaging study: Technique: The patient was injected with 11.1 millicuries of technetium 99m Cardiolite and subsequently rest SPECT Cardiolite nuclear imaging was obtained in the horizontal long, vertical long, and short axis views. The patient underwent pharmacologic (Regadenoson) evaluation with a peak heart rate of 106 beats per minute (70 % percent predicted maximal heart rate) and a peak blood pressure of 124/84 mmHg. The patient was injected with 35.5 millicuries of technetium 99m Cardiolite and subsequently stress SPECT Cardiolite nuclear imaging was obtained in the horizontal long, vertical long, and short axis views. A gated Cardiolite study at peak stress was obtained. Interpretation: Rest and stress SPECT Cardiolite nuclear imaging status post realignment, normalization, and attenuation correction demonstrate at rest areas of diminished to absence of tracer uptake in portions of the distal anterior, anteroseptal, anterior apical, and septal apical areas. Status post stress there is notation of additional areas of diminished myocardial perfusion/tracer uptake in portions of the mid to distal anterior, anteroseptal, anterolateral, anteroapical, septal apical, and lateral apical segments. There is diminished end-systolic thickening and brightening. The he did Cardiolite study demonstrates diminished myocardial and were wall motion and thickening. The reported LVEF is 39 %. Impression: 1. Rest and stress SPECT Cardiolite nuclear imaging demonstrate myocardial perfusion changes potentially compatible with areas of previous myocardial injury/infarction and post stress myocardial perfusion changes compatible with carroll-infarct related stress-induced myocardial ischemia involving portions of the anterior, anteroseptal, anterolateral, and apical segments, however, contribution from sifting soft tissue attenuation/artifact and the underlying atrial dysrhythmia cannot necessarily be excluded. 2. The gated Cardiolite study reports an LVEF of 39 %. This note was generated with Cloudamize software. It may contain incorrect words, spelling, and punctuation that were not noted in checking the note before signing. 03/15/18 0925 <Electronically signed by Lee Hernandez MD> Date Lee Hernandez MD CC: Lee Hernandez MD; Sanchez Spears MD Date Dictated: 03/15/18917 Date Transcribed: 03/15/18917 Acid Mixer: PM Signed SH[place] Observed: 03/12/2018 Status: COMPLETED Source: [place] 10:00 AM [facility] REPOSITORY Office Visit (WOOB) ALBA FLORES ([id number]) 1950 F Date Time Provider Department 03/12/18 10:00 AM ANNE RANKIN During your visit today, we recorded the following information about you: Blood pressure Weight 106/74 140.3 kg Anne Rankin MD 03/12/2018 10:43 AM Signed Alba Miguel Sandra is a 68 year old female who presents for problem visit for VB in the setting of anticoagulation. HPI: Admitted recently for respiratory failure and atrial flutter. Was started on Xarelto while in the hospital, which was then held given hemothorax. She reports dark red vaginal bleeding once started on Xarelto. Describes it as similar to a light period. Was using about 2 pads per day, she wears pads for incontinence as well. Bleeding stopped once Xarelto was stopped. She denied having lightheadedness, dizziness, SOB. Hx of endometrial cancer. Patient denies having radiation or chemotherapy. Hysterectomy by Dr. Brady for endometrial cancer in 2014. She states she followed up once, but did not follow up after that due to cost. PAST MEDICAL HISTORY Diagnosis Date - Atrial flutter (HCC) - Borderline diabetes 12/2014 - COPD (chronic obstructive pulmonary disease) (HCC) - Endometrial cancer, grade I (HCC) 12/2014 - GERD (gastroesophageal reflux disease) - HTN (hypertension) 12/2014 - Morbid obesity with BMI of 60.0-69.9, adult (HCC) - CECILIA (obstructive sleep apnea) - Osteopenia PAST SURGICAL HISTORY Procedure Laterality Date - APPENDECTOMY - LAP, SUPRACERVIAL HYSTERECTOMY W/ TUBEANDOV, <250G 2014 - MIDLINE INSERTION/CONSULT 02/16/2018 - TUBAL LIGATION HX Social History Marital status: Spouse name: Years of education: Number of children: Social History Main Topics Smoking status: Former Smoker Packs/day: 1.00 Years: 5.00 Types: Cigarettes Quit date: 04/17/1984 Smokeless tobacco: Never Used Comment: still smokes in the home Alcohol use: Yes Comment: rarely Drug use: No Sexual activity: No Current Outpatient Prescriptions: COMPOUNDED PRESCRIPTION Humidifier for oxygenDX: hypoxia amiodarone (PACERONE) 200 mg tablet Take 2 tablets by mouth twice daily for 9 doses. Take 2 tablets twice daily for 9 doses (until 02/26/18), then take one tablet once daily after that. lisinopril 2.5 mg tablet Take 1 tablet by mouth once daily. metoprolol tartrate, short acting, (LOPRESSOR) 50 mg tablet Take 1 tablet by mouth every 6 hours. furosemide (LASIX) 40 mg tablet Take 1 tablet by mouth once daily. calcium carbonate-vitamin D3 500-100 mg-unit chewable tablet Take 1 tablet by mouth once daily. nystatin (NYSTOP) powder Apply 1 application to affected area three times daily. Menthol-Zinc Oxide (CALMOSEPTINE) 0.44-20.6 % Apply 1 application to affected area twice daily. aspirin 81 mg chewable tablet Take 1 tablet by mouth once daily. Patient is taking daily since she can't afford Xarelto OXYGEN, HOME THERAPY, 2 L/min by Nasal Cannula route as directed. omeprazole (PRILOSEC) 20 mg capsule Take 1 capsule by mouth once daily. DOCOSAHEXANOIC ACID/EPA (FISH OIL ORAL) Take by mouth. No current facility-administered medications for this visit. Allergies As of Date: 03/12/2018 Allergen Noted Reaction ASA [ASPIRIN] 01/16/2015 GI Upset Fully Assessed 03/12/2018 REVIEW OF SYSTEMS Abdomen: No vomiting, diarrhea, or constipation. Bladder: No dysuria, gross hematuria. Senior Statistical Programmer: No current vaginal bleeding. Expanded ROS: N/A Allergies and current medication updated:Yes EXAM: BP 106/74 Wt 309 lb 3.2 oz (140.3kg) GENERAL: pleasant, female in no apparent distress HEENT: Normocephalic and atraumatic DERMATOLOGY: Normal and without lesions CHEST: Normal inspiratory effort, on 2L NC ABDOMEN: Obese, NT PELVIC: external genitalia normal, no vulvar lesions, good vaginal support, physiologic discharge present, no vaginal lesions or masses noted at vaginal cuff, no vaginal bleeding BIMANUAL: no adnexal or vaginal cuff masses palpated and non- tender, limited given body habitus NEURO: alert and oriented x3,exam grossly non-focal EXTREMITIES: normal ASSESSMENT AND PLAN: Encounter Diagnosis ICD-10-CM 1. Abnormal vaginal bleeding N93.9 ? In the setting of anti-coagulation ? Vaginal bleeding has stopped now that she is off Xarelto ? Per patient and yiufknul-vu-ija report, unlikely patient will be restarted on anti-coagulation ? Hx of endometrial cancer ? Normal pelvic exam today without evidence of masses/lesions ? Bleeding likely secondary to Xarelto, and less likely to a cuff recurrence. Will message Dr. Brady with chief projectionist onc for any additional recommendations ? RTO for annual exam Anne Rankin DO Referring Provider: SANCHEZ SPEARS [[id number]] Allergies As of Date: 03/12/2018 Noted Allergy Reaction ASA (ASPIRIN) 01/16/2015 8 - GI Upset Date Reviewed: 03/12/2018 Reviewed by: Anne Rankin - Fully Assessed Reason for Visit: Menstrual Problem [67] Primary Visit Diagnosis:Abnormal vaginal bleeding [N93.9] Prescriptions as of 03/12/2018 Sig: COMPOUNDED PRESCRIPTION Humidifier for oxygen DX: hy* AMIODARONE 200 MG TABLET Take 2 tablets by mouth twice* LISINOPRIL 2.5 MG TABLET Take 1 tablet by mouth once d* METOPROLOL TARTRATE 50 MG TAB* Take 1 tablet by mouth every * FUROSEMIDE 40 MG TABLET Take 1 tablet by mouth once d* CALCIUM CARBONATE-VITAMIN D3 * Take 1 tablet by mouth once d* NYSTATIN 100,000 UNIT/GRAM TO* Apply 1 application to affect* MENTHOL 0.44 %-ZINC OXIDE 20.* Apply 1 application to affect* ASPIRIN 81 MG CHEWABLE TABLET Take 1 tablet by mouth once d* OXYGEN (HOME THERAPY) 2 L/min by Nasal Cannula rout* OMEPRAZOLE 20 MG CAPSULE,CECILIA* Take 1 capsule by mouth once * FISH OIL ORAL Take by mouth. Problem List As Of Date 03/12/2018 Noted Resolved HTN (hypertension) [I10] Priority: B More... Borderline diabetes [R73.03] INVALID FOR* Endometrial cancer, grade I (HCC) [C54.1] INVALID FOR* Priority: G More... Morbid obesity (HCC) [E66.01] INVALID FOR* Osteopenia [M85.80] INVALID FOR* Atrial flutter with rapid ventricular response *INVALID FOR*02/16/2018 Atrial fibrillation (HCC) [I48.91] INVALID FOR* Priority: B More... GERD (gastroesophageal reflux disease) [K21.9] INVALID FOR* COPD (chronic obstructive pulmonary disease) (H*INVALID FOR* Priority: Mild More... Obesity, Class III, BMI >= 40 [E66.01] INVALID FOR* Priority: M Respiratory failure (HCC) [J96.90] INVALID FOR*02/21/2018 Priority: Mild More... EKATERINA (acute kidney injury) (HCC) [N17.9] INVALID FOR*02/21/2018 Priority: C More... Hemothorax on left [J94.2] INVALID FOR* More... Level of Service: EST PATIENT VISIT LEVEL 3 [33434] Disposition: Return in about 1 month (around 04/11/2018) for Well women exam. Follow-up and Disposition History Recorded Encounter Status:Closed by ANNE RANKIN MD on 03/12/18 PROGRESS Observed: 03/12/2018 Status: COMPLETED Source: [place] 9:59 AM [facility] REPOSITORY O ID: [id number] Author: Anne Rankin Service: (none) Author Type: Physician Type: Progress Notes Filed: 03/12/2018 10:43 AM Note Text: Alba Flores is a 68 year old female who presents for problem visit for VB in the setting of anticoagulation. HPI: Admitted recently for respiratory failure and atrial flutter. Was started on Xarelto while in the hospital, which was then held given hemothorax. She reports dark red vaginal bleeding once started on Xarelto. Describes it as similar to a light period. Was using about 2 pads per day, she wears pads for incontinence as well. Bleeding stopped once Xarelto was stopped. She denied having lightheadedness, dizziness, SOB. Hx of endometrial cancer. Patient denies having radiation or chemotherapy. Hysterectomy by Dr. Brady for endometrial cancer in 2014. She states she followed up once, but did not follow up after that due to cost. PAST MEDICAL HISTORY Diagnosis Date - Atrial flutter (HCC) - Borderline diabetes 12/2014 - COPD (chronic obstructive pulmonary disease) (HCC) - Endometrial cancer, grade I (HCC) 12/2014 - GERD (gastroesophageal reflux disease) - HTN (hypertension) 12/2014 - Morbid obesity with BMI of 60.0-69.9, adult (HCC) - CECILIA (obstructive sleep apnea) - Osteopenia PAST SURGICAL HISTORY Procedure Laterality Date - APPENDECTOMY - LAP, SUPRACERVIAL HYSTERECTOMY W/ TUBEANDOV, <250G 2014 - MIDLINE INSERTION/CONSULT 02/16/2018 - TUBAL LIGATION HX Social History Marital status: Spouse name: Years of education: Number of children: Social History Main Topics Smoking status: Former Smoker Packs/day: 1.00 Years: 5.00 Types: Cigarettes Quit date: 04/17/1984 Smokeless tobacco: Never Used Comment: still smokes in the home Alcohol use: Yes Comment: rarely Drug use: No Sexual activity: No Current Outpatient Prescriptions: COMPOUNDED PRESCRIPTION Humidifier for oxygenDX: hypoxia amiodarone (PACERONE) 200 mg tablet Take 2 tablets by mouth twice daily for 9 doses. Take 2 tablets twice daily for 9 doses (until 02/26/18), then take one tablet once daily after that. lisinopril 2.5 mg tablet Take 1 tablet by mouth once daily. metoprolol tartrate, short acting, (LOPRESSOR) 50 mg tablet Take 1 tablet by mouth every 6 hours. furosemide (LASIX) 40 mg tablet Take 1 tablet by mouth once daily. calcium carbonate-vitamin D3 500-100 mg-unit chewable tablet Take 1 tablet by mouth once daily. nystatin (NYSTOP) powder Apply 1 application to affected area three times daily. Menthol-Zinc Oxide (CALMOSEPTINE) 0.44-20.6 % Apply 1 application to affected area twice daily. aspirin 81 mg chewable tablet Take 1 tablet by mouth once daily. Patient is taking daily since she can't afford Xarelto OXYGEN, HOME THERAPY, 2 L/min by Nasal Cannula route as directed. omeprazole (PRILOSEC) 20 mg capsule Take 1 capsule by mouth once daily. DOCOSAHEXANOIC ACID/EPA (FISH OIL ORAL) Take by mouth. No current facility-administered medications for this visit. Allergies As of Date: 03/12/2018 Allergen Noted Reaction ASA [ASPIRIN] 01/16/2015 GI Upset Fully Assessed 03/12/2018 REVIEW OF SYSTEMS Abdomen: No vomiting, diarrhea, or constipation. Bladder: No dysuria, gross hematuria. Senior Statistical Programmer: No current vaginal bleeding. Expanded ROS: N/A Allergies and current medication updated:Yes EXAM: BP 106/74 Wt 309 lb 3.2 oz (140.3kg) GENERAL: pleasant, female in no apparent distress HEENT: Normocephalic and atraumatic DERMATOLOGY: Normal and without lesions CHEST: Normal inspiratory effort, on 2L NC ABDOMEN: Obese, NT PELVIC: external genitalia normal, no vulvar lesions, good vaginal support, physiologic discharge present, no vaginal lesions or masses noted at vaginal cuff, no vaginal bleeding BIMANUAL: no adnexal or vaginal cuff masses palpated and non-tender, limited given body habitus NEURO: alert and oriented x3,exam grossly non-focal EXTREMITIES: normal ASSESSMENT AND PLAN: Encounter Diagnosis ICD-10-CM 1. Abnormal vaginal bleeding N93.9 ? In the setting of anti-coagulation ? Vaginal bleeding has stopped now that she is off Xarelto ? Per patient and dteswvab-fy-uew report, unlikely patient will be restarted on anti-coagulation ? Hx of endometrial cancer ? Normal pelvic exam today without evidence of masses/lesions ? Bleeding likely secondary to Xarelto, and less likely to a cuff recurrence. Will message Dr. Brady with chief projectionist onc for any additional recommendations ? RTO for annual exam Anne Rankin DO PROGRESS Observed: 03/06/2018 Status: COMPLETED Source: [place] 12:20 PM [facility] REPOS[facility] HNO ID: [id number] Author: Rin (Rn) Farhana Service: (none) Author Type: Registered Nurse Type: Progress Notes Filed: 03/06/2018 12:29 PM Note Text: TRANSITION CARE MANAGEMENT (TCM) FOLLOW-UP NOTE Provider Action/FYI Saw Dr. Hernandez, no change in medications NUCLEAR STRESS TEST scheduled 03/[address] King, Pulmonology 03/15 Feeling good, O2@2L no SOB or chest pain. HH pulse ox 94- 98% discussed pt buying Pulse Ox Productive cough with clear mucous after spirometer in AM only Small amt of LE edema Patient identified by name and date of : YES Spoke to patient Summary: See above, pt states she's feeling really good Event Staff plan for next outreach: Will follow up one week Signature Rin Delcid RN March 06, 2018 [place] Observed: 03/06/2018 Status: COMPLETED Source: [place] 12:00 AM [facility] REPOSITORY Patient Outreach (FAMPWS) ALBA FLORES ([id number]) 1950 F Date Time Provider Department 03/06/18 [facility] During your visit today, we recorded the following information about you: Rin Delcid RN 03/06/2018 12:29 PM Signed TRANSITION CARE MANAGEMENT (TCM) FOLLOW-UP NOTE Provider Action/FYI Saw Dr. Hernandez, no change in medications NUCLEAR STRESS TEST scheduled 03/[address] King, Pulmonology 03/15 Feeling good, O2@2L no SOB or chest pain. HH pulse ox 94- 98% discussed pt buying Pulse Ox Productive cough with clear mucous after spirometer in AM only Small amt of LE edema Patient identified by name and date of : YES Spoke to patient Summary: See above, pt states she's feeling really good Event Staff plan for next outreach: Will follow up one week Signature Rin Delcid RN March 06, 2018 Allergies As of Date: 03/06/2018 Noted Allergy Reaction ASA (ASPIRIN) 01/16/2015 8 - GI Upset Date Reviewed: 02/28/2018 Reviewed by: Sanchez Spears - Fully Assessed Reason for Visit: [facility] Follow Up [0079] Cmt: TCM F/U call #1 D/C 02/21 Reason For Visit History Recorded Prescriptions as of 03/06/2018 Sig: COMPOUNDED PRESCRIPTION Humidifier for oxygen DX: hy* AMIODARONE 200 MG TABLET Take 2 tablets by mouth twice* LISINOPRIL 2.5 MG TABLET Take 1 tablet by mouth once d* METOPROLOL TARTRATE 50 MG TAB* Take 1 tablet by mouth every * FUROSEMIDE 40 MG TABLET Take 1 tablet by mouth once d* CALCIUM CARBONATE-VITAMIN D3 * Take 1 tablet by mouth once d* NYSTATIN 100,000 UNIT/GRAM TO* Apply 1 application to affect* MENTHOL 0.44 %-ZINC OXIDE 20.* Apply 1 application to affect* ASPIRIN 81 MG CHEWABLE TABLET Take 1 tablet by mouth once d* OXYGEN (HOME THERAPY) 2 L/min by Nasal Cannula rout* OMEPRAZOLE 20 MG CAPSULE,CECILIA* Take 1 capsule by mouth once * FISH OIL ORAL Take by mouth. Problem List As Of Date 03/06/2018 Noted Resolved HTN (hypertension) [I10] Priority: B More... Borderline diabetes [R73.03] INVALID FOR* Endometrial cancer, grade I (HCC) [C54.1] INVALID FOR* Priority: G More... Morbid obesity ([facility]) [E66.01] INVALID FOR* Osteopenia [M85.80] INVALID FOR* Atrial flutter with rapid ventricular response *INVALID FOR*02/16/2018 Atrial fibrillation ([facility]) [I48.91] INVALID FOR* Priority: B More... GERD (gastroesophageal reflux disease) [K21.9] INVALID FOR* COPD (chronic obstructive pulmonary disease) (H*INVALID FOR* Priority: Mild More... Obesity, Class III, BMI >= 40 [E66.01] INVALID FOR* Priority: M Respiratory failure ([facility]) [J96.90] INVALID FOR*02/21/2018 Priority: Mild More... EKATERINA (acute kidney injury) ([facility]) [N17.9] INVALID FOR*02/21/2018 Priority: C More... Hemothorax on left [J94.2] INVALID FOR* More... Encounter Status:Closed by RIN DELCID on 03/06/18 CARDIOLOGY VISIT Observed: 03/02/2018 Status: F Source: [place] 1:24 PM [facility] REPOSITORY [facility] [address] [place] [address]. [address] [place] [address] OFFICE VISIT Date of Service: 03/02/18 MR#: [id number] Acct: [id number] Name: ALBA FLORES Rep #: [id number] : 1950 Provider: Lee Hernandez MD Age/Sex: 68/F Location: [facility] [place] Status: Signed HPI HPI Details: ALBA FLORES, is a 68 F who presents to the office today for outpatient cardiovascular follow-up. She states she was evaluated at [facility]. She states she went through a variety of procedures. She does not recall having any other cardiovascular procedures performed. She states at the moment it is too challenging for her to return to [facility] for additional evaluation and care. She states she may be able to proceed with additional evaluation care over time at [facility]. In the interim she denies ongoing chest discomfort. She has had no issues with overt acute CHF or pulmonary edema. There has been no near syncope or syncope. She has had no ongoing concerns with respect to continued rapid heart rate. She states she does know that it goes up and down. She continues with lower extremity peripheral pitting edema. Although she states overall it is better. She states she cannot be on anticoagulants at this time secondary to concerns with respect to her pulmonary status, pleural effusions, and now concerns of vaginal bleeding. She states she is pending upcoming evaluation for that issue Intake Vital Signs03/02/18 Height 5 ft 3 in 03/02/18 Weight: 315 lb 03/02/18 Body Mass Index (BMI) 55.7 03/02/18 Blood Pressure 122/68 H H 03/02/18 Blood Pressure Location Lt brachial Intake Visit Reasons: respiratory failure/ a-fib Moth Exterminator Required: No Is patient in pain?: No Allergies aspirin [ASA] Adverse Reaction (Verified 03/02/18 08:30) stomach burning and sick to stomach propoxyphene HCl [From Darvon] Adverse Reaction (Verified 03/02/18 08:30) i get dizzy and pass out Medications Calcium Carbonate/Vitamin D3 [Calcium 500+D Tablet Chew] 1 ea PO DAILY 11/14/17 [History Confirmed 03/02/18] acetaminophen 500 mg tablet 1,000 mg PO Q6H PRN tab 12/01/17 [History Confirmed 03/02/18] Lorazepam [Ativan] 0.5 mg PO Q6H PRN PRN #14 tab 12/05/17 [Rx Confirmed 02/04/18] Metoprolol Tartrate [Lopressor (beta maeve)] 50 mg PO BID #60 tab 12/05/17 [Rx Confirmed 03/02/18] Pantoprazole Sodium [Protonix] 20 mg PO DAILY #30 tab 12/05/17 [Rx Confirmed 03/02/18] albuterol sulfate 2.5 mg/3 mL (0.083 %) solution for nebulization 2.5 mg INHALATION Q4H PRN #180 vial 01/04/18 [Rx Confirmed 03/02/18] albuterol sulfate HFA 90 mcg/actuation aerosol inhaler 2 puff INHALATION Q4H PRN #18 g 01/04/18 [Rx Confirmed 03/02/18] AcetaAZOLAMIDE [Diamox] 125 mg PO BIDCM tab 02/10/18 [Rx] Acetaminophen [Tylenol Tablet] 650 mg PO Q6H PRN PRN tab 02/10/18 [Rx Confirmed 03/02/18] Albuterol Aerosols [Ventolin Aerosols] 2.5 mg INHALATION Q2H PRN PRN vial.neb. 02/10/18 [Rx Confirmed 03/02/18] Amiodarone HCl/D5w [Amiodarone 450 mg/250 ml-D5w] 360 mg IV CONT #1 plast..bag 02/10/18 [Rx] Bisacodyl [Dulcolax] 5 mg PO DAILY PRN PRN tab 02/10/18 [Rx] Calcium Carb/Vitamin D [Os-Jose 500MG + D] 1 tab PO DAILY tab 02/10/18 [Rx] Furosemide [Lasix] 40 mg PO BID@1000,1800 tab 02/10/18 [Rx] Guaifenesin [Mucinex] 600 mg PO BID tab 02/10/18 [Rx] Ipratropium/Albuterol Sulfate [Duoneb] 3 ml INHALATION Q4H.RT ampul.neb 02/10/18 [Rx] Magnesium Hydroxide [Milk Of Magnesia] 30 ml PO DAILY PRN udc 02/10/18 [Rx] Menthol/Lanolin/Calamine/Znox [Calmoseptine Ointment] 1 applic TOPICAL 4X/DAY PRN tube 02/10/18 [Rx] Metoprolol Tartrate [Lopressor (beta maeve)] 50 mg PO BID tab 02/10/18 [Rx] Nystatin Powder [Mycostatin Powder] 1 applic TOPICAL BID bottle 02/10/18 [Rx] Ondansetron [Zofran] 4 mg IV Q8H PRN PRN vial 02/10/18 [Rx] Potassium Chloride [K-Dur] 20 meq PO DAILYCM tab 02/10/18 [Rx] Sodium Chloride 0.65% [[place] Nasal [place]] 2 spray NASAL TID PRN PRN spray.btl 02/10/18 [Rx] levoFLOXacin tablet [Levaquin tablet] 750 mg PO DAILY@0600 tab 02/10/18 [Rx] amiodarone 200 mg tablet 200 mg PO DAILY 03/02/18 [History Confirmed 03/02/18] aspirin 81 mg tablet,delayed release 81 mg PO DAILY 03/02/18 [History Confirmed 03/02/18] furosemide 40 mg tablet 40 mg PO DAILY 03/02/18 [History Confirmed 03/02/18] lisinopril 2.5 mg tablet 2.5 mg PO DAILY PRN 03/02/18 [History Confirmed 03/02/18] PFSH Medical History Shortness of breath (Acute) Atrial flutter with rapid ventricular response (Acute) Healthcare associated bacterial pneumonia (Acute) Acute kidney injury (Acute) Chest pain (Acute) Chronic obstructive pulmonary disease (Chronic) Acute respiratory failure (Acute) Healthcare-associated pneumonia (Acute) Atrial flutter (Acute) Morbid obesity (Chronic) HTN (hypertension) (Chronic) GERD (gastroesophageal reflux disease) (Chronic) CECILIA (obstructive sleep apnea) (Acute) Surgical History History of total hysterectomy (Resolved) Family History Mother Heart disease Father Heart disease Social History Smoking Status: Former smoker how long ago did patient quit smokin, 1ppd second hand exposure: Yes alcohol intake: never substance use type: does not use ROS Const Const: Negative for fatigue, weakness, night sweats, excessive sweating, frequent falls, headache(s) or daytime sleepiness Eyes Eyes: Negative for loss of peripheral vision, transient loss of vision, blind spots, double vision or blurry vision ENT ENT: Negative for headache(s), dizziness, balance problems, Nosebleed/epistaxis, tongue swelling or lip swelling Cardio Chest Pain: No Palpitations: No Edema: None Muscle aches with walking: None Resp Respiratory: Negative for SOB at rest, SOB orthopnea\SOB lying down, Cough, paroxysmal nocturnal dyspnea or SOB with activity GI GI: Negative nausea, vomiting, heartburn, black,tarry stools or bright, red blood in stools : Negative for hematuria Musc Musc: Negative for balance problems, muscle aches/ myalgia, muscle weakness or joint pain Skin Skin: Negative non-healing lesions, unusual bruising or rash Neuro Neuro: Negative for weakness, frequent falls, headache(s), double vision, dizziness, lightheadedness, orthostatic symptoms, blurry vision or lack of coordination Devang Hematologic/Lymphatic: Negative for easy bruising or easy bleeding Endo Endo: Negative for fatigue, excessive sweating, cold intolerance, heat intolerance, increased thirst/drinking or hair loss Psych Psych: Negative for anxiety or depression Allergy Allergy/Immunology: Negative for throat swelling, Negative for tongue swelling, Negative for hives, Negative for rash, Negative for lip swelling Cardiology Exam Const Appearance: cooperative, comfortable, no acute distress and well developed Nutritional Appearance: obese Head Head: normal to inspection, normocephalic and atraumatic Ears: hearing grossly normal bilaterally Nose: external nose normal Face and Sinus: face symmetric Mouth: oral mucosae normal Teeth and gingiva: fair dentition Eyes Eyelids: eyelids normal Conjunctivae: conjunctivae normal Pupils: PERRL EOM: EOM intact bilaterally Neck Neck: normal visual inspection and full ROM Carotids: normal carotid upstroke Chest Chest inspection: normal inspection of the chest, symmetric chest movement and normal respiratory effort Auscultation: Bilateral: Clear to Auscultation Cardio Palpation: normal PMI Rhythm: irregular rhythm Heart sounds: S1 normal and S2 normal Decreased heart tones GI GI: obese and normal to inspection Neuro General: alert, awake, oriented x3, moves all extremities and other (examined in the wheelchair) Skin Skin: no rashes or lesions noted Extremities Pulses: Normal: Right Radial Pulse, Left Radial Pulse Lower Extremity Edema: +2: Bilateral Psych Psychological: normal affect Supplemental Info Transthoracic echo 11/17/2017 Interpretation Summary The study was technically difficult. Contrast injection was performed. Mildly dilated left ventricle. Left ventricular systolic function is normal. The estimated ejection fraction is 55 %. Mild concentric left ventricular hypertrophy. Moderately dilated right ventricle. Mild to moderate global right ventricular systolic dysfunction. The left atrium is mildly enlarged. The right atrium is mildly enlarged. There is mild mitral annular calcification. Extension of the mitral annular calcification onto the posterior mitral valve leaflet. Trivial mitral valve insufficiency. Trivial tricuspid valve insufficiency. Trivial pulmonic valve insufficiency. Right ventricular systolic pressure estimated to be 35 mmHg. Transmitral diastolic flow velocities suggest diastolic dysfunction (pseudonormal pattern). Transesophageal echocardiogram: 11/15/2017 Interpretation Summary Mild global left ventricular systolic dysfunction. The estimated ejection fraction is 45 %. Mildly dilated right ventricle. Mild segmental dysfunction of right ventricle. The left atrium is mildly enlarged. There is mild sponatenous contrast in the left atrium. No thrombus is detected in the left atrial appendage. The right atrium is mildly enlarged. There is mild to moderate mitral annular calcification. Extension of the mitral annular calcification onto the posterior mitral valve leaflet. Mild (1+) mitral valve insufficiency. Moderate (2+) tricuspid valve insufficiency. Mild focal aortic valve calcification. Color flow doppler c/w a left to right interatrial shunt c/w a PFO. Agitated saline contrast study c/w a right to left interatrial shunt c/w a PFO. Normal appearing thoracic aorta. Assessment AND Plan 1. Atrial flutter with rapid ventricular response I48.92 Plan At the present time she remains in atrial flutter based on her examination. She will continue rate control therapy. She cannot start anticoagulant therapy at this time secondary to the aforementioned reasons. When she is able to be on anticoagulant therapy then she can be considered for further evaluation with either a repeat attempt at synchronized biphasic DC cardioversion or a referral to electrophysiology at [facility]/. Orders Orders: 2. Cardiomyopathy I42.9 Plan She appears without acute symptoms. She will need to continue her medical management and follow-up Orders Orders: 3. Right heart failure I50.810 Plan There are concerns with right heart failure based on her pulmonary disease status and echo cardiographic findings suggesting RV dilatation and dysfunction. This would also contribute to her lower extremity peripheral pitting edema. At the present time she appears without acute on chronic symptoms. She will continue medical management. 4. Essential hypertension I10 Plan Her blood pressure appears to be recently well controlled at this time. She will continue medical therapy 5. Chronic obstructive pulmonary disease, unspecified COPD type J44.9 Plan She does have underlying COPD. She will continue evaluation care per pulmonology. 6. Shortness of breath R06.02 Plan She is chronically short of breath. Again they are concerned this may be multifactorial with respect to her obesity, her pulmonary status, her cardiovascular status, etc. Thus she does need to attempt to lose weight, continue her pulmonary evaluation, and care for her cardiovascular disease Orders Orders: 7. Morbid obesity E66.01 Plan Again she unfortunately remains overweight. She states she is trying to bring her diet under better control and attempts to lose weight Plan Detail Additional Comments Thank you for allowing me to participate in the care of your patient. Please don't hesitate to call if any issues arise. This note was generated using a voice recognition system and there may be incorrect words, spelling or punctuation that were not noted when reviewing the office note prior to saving.d Follow Up 3 Months (PFM) 03/02/18 (Copy of F records) Coding Level of Care Code Off vis,est,level 4 Diagnoses Atrial flutter with rapid ventricular response I48.92 Cardiomyopathy I42.9 Right heart failure I50.810 Essential hypertension I10 Hypertension type: essential hypertension Chronic obstructive pulmonary disease, unspecified COPD type J44.9 Shortness of breath R06.02 Morbid obesity E66.01 Coding Level of Care Code Off vis,est,level 4 Diagnoses Atrial flutter with rapid ventricular response I48.92 Cardiomyopathy I42.9 Right heart failure I50.810 Essential hypertension I10 Hypertension type: essential hypertension Chronic obstructive pulmonary disease, unspecified COPD type J44.9 Shortness of breath R06.02 Morbid obesity E66.01 03/02/18 1324 <Electronically signed by Lee Hernandez MD> Date Lee Hernandez MD Cosigner Signature: Date (if applicable) CC: Sanchez Spears MD XR CHEST 2V FRONTAL/LAT Observed: 02/28/2018 Status: F Source: [place] 11:03 AM [facility] REPOSITORY * * *Final Report* * * DATE OF EXAM: Feb 28 2018 11:03AM WOX [id number] - XR CHEST 2V FRONTAL/LAT / PROCEDURE REASON: multiple diagnoses * * * * Physician Interpretation * * * * EXAMINATION: CHEST RADIOGRAPH (2 VIEW FRONTAL and LATERAL) CLINICAL HISTORY: Chronic obstructive pulmonary disease, unspecified COPD type (HCC) Hemothorax on left MQ: [id number]_5 Comparison: 02/20/2018 chest x-ray and CT scans of the chest dated 02/16/2018 RESULT: Lines, tubes, and devices: None. Lungs and pleura: Cardiomegaly is noted. Fluid and atelectasis at both lung bases has increased. This remains more pronounced on the left. Upper lung garcia are clear. No pneumothorax is seen. IMPRESSION: Cardiomegaly. Increasing fluid and atelectasis at both lung bases. Acid Mixer: PSCB Transcribe Date/Time: Feb 28 2018 1:07P Dictated by : ISAI PIERRE MD This examination was interpreted and the report reviewed and electronically signed by: ISAI PIERRE MD on Feb 28 2018 1:10PM EST [id number] Collected: Status: F Source: [place] 02/28/2018 10:55 AM [facility] REPOSITORY TYPE CODE TESTS RESULT OUT OF RANGE REFERENCE UNITS LAB CO <2.0 % High 2.3 Carboxyhemog lobin,Sukhdeep Performed By: #### CO, CBCDIF, CMP, LIPB, NTBNP, HBA1C #### [facility] [address] [place], [place] [address] CBC AND DIFFERENTIAL Collected: 02/28/2018 Status: F Source: [place] 10:55 AM [facility] REPOSITORY TYPE CODE TESTS RESULT OUT OF REFERENCE UNITS RANGE LAB WBC 3.70-11.00 k/uL WBC 5.86 LAB RBC 3.90-5.20 m/uL Low RBC 3.88 LAB HGB 11.5-15.5 g/dL Low Hemoglobin 10.6 LAB HCT 36.0-46.0 % Hematocrit 36.1 LAB MCV 80.0-100.0 fL MCV 93.0 LAB MCH 26.0-34.0 pG MCH 27.3 LAB MCHC 30.5-36.0 g/dL Low MCHC 29.4 LAB RDWCV 11.5-15.0 % RDW-CV 13.8 LAB PLTCT 150-400 k/uL Platelet Count 203 LAB MPV 9.0-12.7 fL MPV 11.1 LAB ANEUT % Neut% 57.8 LAB AANEUT 1.45-7.50 k/uL Abs Neut 3.38 LAB ALYMP % Lymph% 22.7 LAB AALYMP 1.00-4.00 k/uL Abs Lymph 1.33 LAB AMONO % [place]% 9.9 LAB AAMONO <0.87 k/uL Abs [place] 0.58 LAB AEOS % Eosin% 9.4 LAB AAEOS <0.46 k/uL Abs High Eosin 0.55 LAB ABASO % Baso% 0.2 LAB AABASO <0.11 k/uL Abs Baso <0.03 LAB AUNRBC 0 /100 WBC NRBCs 0.0 LAB ABNRBC <0.01 k/uL Absolute nRBC <0.01 LAB DTYP DTYPE Auto Diff Performed By: #### CO, CBCDIF, CMP, LIPB, NTBNP, HBA1C #### [facility] [address] [place], [place] [address] COMP METABOLIC PANEL Collected: 02/28/2018 Status: F Source: [place] 10:[address] [facility] REPOSITORY TYPE CODE TESTS RESULT OUT OF REFERENCE UNITS RANGE LAB TP 6.3-8.0 g/dL Protein, Total 6.3 LAB ALB 3.9-4.9 g/dL Low Albumin 3.4 LAB CA 8.5-10.2 mg/dL Calcium, Total 8.7 LAB TBIL 0.2-1.3 mg/dL Bilirubin, Total 0.4 LAB ALKP 34-123 U/L Alkaline Phosphatase 85 LAB AST 13-35 U/L AST 22 LAB GLU 74-99 mg/dL Glucose 75 Result Comment: The [place] Diabetes Association (ADA) provides guidance for cutoff values for fasting glucose and random glucose. The ADA defines fasting as no caloric intake for at least 8 hours. Fas ting plasma glucose results between 100 to 125 mg/dL indicate increased risk for diabetes (prediabetes). Fasting plasma glucose results greater than or equal to 126 mg/dL meet the criteria for diagnosis of diabetes. In the absence of unequivocal hyperglycemia, results should be confirmed by repeat testing. In a patient with classic symptoms of hyperglycemia or hyperglycemic crisis, random plasma glucose results greater than or equal to 200 mg/dL meet the criteria for diagnosis of diabetes. Reference: Standards of Medical Care in Diabetes 2016, [place] Diabetes Association. Diabetes Care. 2016.39(Suppl 1). LAB BUN 7-21 mg/dL BUN 16 LAB CRET 0.58-0.96 mg/dL Creatinine High 1.19 LAB NA 136-144 mmol/L Sodium 142 LAB K 3.7-5.1 mmol/L Potassium 3.9 LAB CL 97-105 mmol/L Chloride 98 LAB CO2 22-30 mmol/L CO2 High 31 LAB AGAP 9-18 mmol/L Anion Gap 13 LAB ALT 7-38 U/L ALT 21 LAB GFRAA eGFR- Amer. 54 LAB GFRNAA . eGFR-All Other Races 45 Result Comment: eGFR (Estimated GFR) Units of measure: mL/min/1.73 meters squared eGFR is derived from the reexpressed MDRD Study equation using the following parameters: serum creatinine, age, gender and race. The creatinine assay has been calibrated to be traceable to IDMS. An eGFR <60 mL/min/1.73m2 for >3 months is consistent with chronic kidney disease. Refer to KDOQI guidelines for clinical interpretation. In patients with unstable renal function, e.g. those with acute kidney injury, the eGFR may not accurately reflect actual GFR. Performed By: #### CO, CBCDIF, CMP, LIPB, NTBNP, HBA1C #### [facility] [address] [place], [place] [address] LIPID PANEL, BASIC Collected: 02/28/2018 Status: F Source: [place] 10:[address] [facility] REPOSITORY TYPE CODE TESTS RESULT OUT OF REFERENCE UNITS RANGE LAB CHOL <200 mg/dL Cholesterol 116 Result Comment: <200 mg/dL, Desirable 200-239 mg/dL, Borderline high >239 mg/dL, High LAB TRIGLY <150 mg/dL Triglyceride 94 Result Comment: <150 mg/dL, Normal 150-199 mg/dL, Borderline high 200-499 mg/dL, High >499 mg/dL, Very high LAB HDL >39 mg/dL HDL-Cholesterol 43 Result Comment: 40-59 mg/dL, Acceptable >59 mg/dL, High: Negative risk factor for coronary heart disease <40 mg/dL, Low: Positive risk factor for coronary heart disease LAB LDL <100 mg/dL LDL-Cholesterol 54 Result Comment: <100 mg/dL, Optimal 100-129 mg/dL, Near optimal/above optimal 130-159 mg/dL, Borderline high 160-189 mg/dL, High >189 mg/dL, Very high Secondary prevention optimal LDL Cholesterol levels are recommended to be < 70 mg/dL LAB NONHDL <130 mg/dL Non HDL Cholesterol 73 Result Comment: <130 mg/dL, Optimal 130-159 mg/dL, Near optimal/above optimal 160-189 mg/dL, Borderline high 190-219 mg/dL, High >219 mg/dL, Very high Secondary prevention optimal non HDL Cholesterol levels are recommended to be < 100 mg/dL LAB FT hrs Fasting Time 14 LAB VLDL <30 mg/dL VLDL Cholesterol 19 LAB TCHDL <5.10 TC:HDL Ratio 2.70 LAB LDLHDL <2.54 LDL:HDL Ratio 1.26 Result Comment: Reference: 1. National Cholesterol Education Program ATP III Guideline At-A-Glance Quick Desk Reference: National Heart, Lung, and Blood [place]. National Institutes of Health. 2001: NIH Publication No. 01-3305. 2. An International Atherosclerosis Society position paper: global recommendations for the management of dyslipidemia: executive summary, Atherosclerosis. 2014: 232(2):410-413. Performed By: #### CO, CBCDIF, CMP, LIPB, NTBNP, HBA1C #### [facility] [address] [place], [place] [address] NT PRO BNP Collected: 02/28/2018 Status: F Source: [place] 10:55 AM [facility] REPOSITORY TYPE CODE TESTS RESULT OUT OF REFERENCE UNITS RANGE LAB PBNP <125 pg/mL High PRO B Natr 2079 Peptide Performed By: #### CO, CBCDIF, CMP, LIPB, NTBNP, HBA1C #### [facility] [address] [place], [place] [address] HEMOGLOBIN A1C Collected: 02/28/2018 Status: F Source: [place] 10:55 AM [facility] REPOSITORY TYPE CODE TESTS RESULT OUT OF REFERENCE UNITS RANGE LAB HGBA1C 4.3-5.6 % High Hemoglobin A1c 5.8 Result Comment: [place] Diabetes Association guidelines indicate that patients with HgbA1c in the range 5.7-6.4% are at increased risk for development of diabetes, and intervention by lifestyle modification may be beneficial. HgbA1c greater or equal to 6.5% is considered diagnostic of diabetes. LAB HBA0 mg/dL Est. Average Glucose 120 Result Comment: eAG: (Estimated average glucose) is a calculated value from HgbA1c and is employee representative of the average blood glucose level in the last 2-3 month period. Performed By: #### CO, CBCDIF, CMP, LIPB, NTBNP, HBA1C #### [facility] [address] [place] [id number] PROGRESS Observed: 02/28/2018 Status: COMPLETED Source: [place] 10:53 AM [facility] REPOSITORY HNO ID: [id number] Author: Sofi Scott Service: (none) Author Type: (none) Type: Progress Notes Filed: 02/28/2018 11:03 AM Note Text: Radiology Service Progress Note PATIENT NAME: Alba Flores DATE OF SERVICE: February 28, 2018 TIME: 10:53 AM PATIENT IDENTITY VERIFICATION COMPLETED USING TWO (2) METHODS: Patient confirmed name verbally and Date of . PATIENT GENDER DATA: Female. status: : No status: NO. PATIENT RELEVANT IMPLANT DATA REVIEWED: Not Applicable RADIOLOGY DEPARTMENT: General X-ray: Exam(s) Completed: Chest X-Ray PERIPHERAL IV DATA: Not applicable SIGNED BY: Sofi Scott February 28, 2018 10:53 AM PROGRESS Observed: 02/28/2018 Status: COMPLETED Source: [place] 9:36 AM [facility] REPOSITORY HNO ID: [id number] Author: Sanchez Spears Service: (none) Author Type: Physician Type: Progress Notes Filed: 02/28/2018 11:06 AM Note Text: Transitional Care Management Progress Note The patients TCM visit was performed within the 7 days of discharge. Patient's Date of discharge: 02/21/18 Date of initial coordinator contact after discharge: 02/23/18 Discharge diagnosis: Heart Failure Medication review completed Yes Crissy Easton Ma TRANSITION CARE MANAGEMENT: Date of Outreach: 02/23/2018 Outreach Attempt 1: Contact Made Date of Discharge 02/21/2018 Some recent data might be hidden ? SUMMARY: -Pt discharged from on 02/21. -Follow up appointment scheduled for 03/07, instructed to come to walk in clinic on 02/28 to be seen sooner. -Medication review done with patient. -Admitted for: Principal Problem (Resolved): ?? Respiratory failure (HCC) Active Problems: ?? COPD (chronic obstructive pulmonary disease) (HCC) ?? HTN (hypertension) ?? Atrial fibrillation (HCC) ?? Endometrial cancer, grade I (HCC) ?? Obesity, Class III, BMI >= 40 ?? Hemothorax on left CONCERNS: Reports feeling really good O2@2L during day and [employer] informed order to increase O2@6L at night with CPAP No SOB, chest pain, palpitations or stomach pain. Using spirometer able to raise ball to 2000 Reports occasional cough, can feel mucous but unable to expectorate ? NEW MEDICATIONS: amiodarone (PACERONE) 200 mg Take 2 tablets by mouth twice daily for 9 doses (until 02/26/18), then take one tablet once daily after that. furosemide (LASIX) 40 mg Take 1 tablet by mouth once daily. ? MEDICATION CHANGES: metoprolol tartrate, short acting, (LOPRESSOR) 50 mg Take 1 tablet by mouth every 6 hours. lisinopril 2.5 mg Take 1 tablet by mouth once daily. ? MEDS HELD/DISCONTINUED: rivaroxaban (XARELTO) [address] (PROTONIX) 20 mg tablet diltiazem (CARDIZEM) 60 mg tablet ? BRIEF HOSPITAL COURSE: Admitted from [facility] with atrial flutter and hypoxic respiratory failure 02/04/18.. Initially managed for decompensated heart failure with IV lasix and treated for community acquired pneumonia with Levaquin (02/07-02/10). Thoracentesis 02/07 of a left-sided pleural effusion revealed 150cc of bloody fluid. Xarelto was discontinued. The hemothorax enlarged and on 02/10 was noted to be bilateral. She was transferred to [facility] for further management of hemothoraces. Prior to transfer atrial fibrillation/flutter was managed with cardizem gtt and amiodarone gtt. SHe was diuresed 20L without significant improvement in respiratory status. ? F MICU course included a Chest ultrasound 02/11 which showed large left sided pleural effusion which appeared?to be complex with hyperechoic regions within the fluid and possibly loculations. Thoracentesis on 02/12 yielded 1800 ml of bloody fluid consistent with hemothorax of unknown etiology. Chest tube was placed on 02/13 with serous output of 975-375cc/day. PICC was placed on 02/16 due to difficulty establishing PIV access. Her O2 requirements were weaned to home settings. Chest tube was discontinued due to decreased output and no accumulation was noted. Fluids studies,cytology and culture were negative for underlying etiology for the hemothorax. Afib rate remained controlled and pt was?transitioned to metoprolol 50mg every 6 hours with improved rate control and hypotension-discussed transitioning to metoprolol ER at discharge. Team addressed need to hold AC in acute recovery period and patient will address reinitiation of theraputic anticoagulation given [id number] at her cardiology follow up appointment. ? Home with Home Health Care DIET: Heart Health Diet: 2 gm sodium, <200 mg cholesterol, low saturated fat Follow Up with PCP: Sanchez Spears MD Future Appointments Date Time Provider Department Center 03/06/2018 8:30 AM Nydia LAYTON 03/07/2018 1:30 PM Dasia HANSEN [facility] 03/07/2018 3:20 PM Sanchez Spears [facility]AMP[facility] ? Rin Delcid RN February 23, 2018 5:05 PM ? ? Provider Documentation: In follow-up of hospitalization, Alba Flores is a 68 year old female with the chief complaint of chf I have reviewed the patient?s last hospital course including diagnostic testing performed during this hospitalization, their discharge medications, and my assessment and plan with the patient and any family members present at today?s visit. Patient presents with: Hospital F/U: TCM HPI: Patient presents today for office visit for TCM. Overall feeling much better. [facility] is following. She is watching salt and wearing cpap and oxygen. She doing quite well. Sleeping well. Monitoring weight daily. Will call if gains more than 3 lbs. Pulse ox at home as been good. Last 45 lbs in hospital. No edema. No chest pain or increased shortness of breath. Incentive spirometer does make her cough but no cough elsewhere. Cannot travel so wants appts with local cardiology and pulmonary. She has an extensive medical history. Was admitted in October to [facility] with pneumonia and new onset a fib. Cardioverted unsuccessfully x 3. Discharged on cardizem and xarelto. Followed with Dr. King who diagnosed her with CECILIA. Was in transitional care unit after hospitalization. Readmitted to [facility] with pleural effusion, chf And continued a fib. Eventually transferred to [facility]. Had chest tube placed. Gibbon that her effusions were related to xeralto usage. cytoloty was negative. She was diuresed well and sent home on home oxygen. She has an appt to see cardiology but not until May. She has not set up and appt with pulmonary yet. She does have [facility] seeing her at home. She did not want to see chief projectionist but apparently had vaginal bleeding during hospitalization as well. Reinforced need to do so. That appt is already set up. MEDICATIONS: Current Outpatient Prescriptions: amiodarone (PACERONE) 200 mg tablet Take 2 tablets by mouth twice daily for 9 doses. Take 2 tablets twice daily for 9 doses (until 02/26/18), then take one tablet once daily after that. lisinopril 2.5 mg tablet Take 1 tablet by mouth once daily. metoprolol tartrate, short acting, (LOPRESSOR) 50 mg tablet Take 1 tablet by mouth every 6 hours. furosemide (LASIX) 40 mg tablet Take 1 tablet by mouth once daily. calcium carbonate-vitamin D3 500-100 mg-unit chewable tablet Take 1 tablet by mouth once daily. nystatin (NYSTOP) powder Apply 1 application to affected area three times daily. Menthol-Zinc Oxide (CALMOSEPTINE) 0.44-20.6 % Apply 1 application to affected area twice daily. aspirin 81 mg chewable tablet Take 1 tablet by mouth once daily. Patient is taking daily since she can't afford Xarelto OXYGEN, HOME THERAPY, 2 L/min by Nasal Cannula route as directed. DOCOSAHEXANOIC ACID/EPA (FISH OIL ORAL) Take by mouth. omeprazole (PRILOSEC) 20 mg capsule Take 1 capsule by mouth once daily. No current facility-administered medications for this visit. ALLERGIES: ALLERGIES Allergen Reactions - Asa [Aspirin] GI Upset PAST MEDICAL HISTORY Diagnosis Date - Atrial flutter (HCC) - Borderline diabetes 12/2014 - COPD (chronic obstructive pulmonary disease) ([facility]) - Endometrial cancer, grade I (HCC) 12/2014 - GERD (gastroesophageal reflux disease) - HTN (hypertension) 12/2014 - Morbid obesity with BMI of 60.0-69.9, adult ([facility]) - CECILIA (obstructive sleep apnea) - Osteopenia PAST SURGICAL HISTORY Procedure Laterality Date - APPENDECTOMY - LAP, SUPRACERVIAL HYSTERECTOMY W/ TUBEANDOV, <250G 2014 - MIDLINE INSERTION/CONSULT 02/16/2018 - TUBAL LIGATION HX FAMILY HISTORY Problem Relation Age of Onset - COPD Mother - Heart Mother - Heart Father - Colon Cancer Sister Social History Marital status: Spouse name: Years of education: Number of children: Social History Main Topics Smoking status: Former Smoker Packs/day: 1.00 Years: 5.00 Types: Cigarettes Quit date: 04/17/1984 Smokeless tobacco: Never Used Comment: still smokes in the home Alcohol use: Yes Comment: rarely Drug use: No Sexual activity: No Reviewed current medications, allergies, past medical history, surgical history, family history and social history today. REVIEW OF SYSTEMS GI: No nausea, vomiting, or diarrhea : No history of dysuria, frequency or incontinence All other reviewed and negative other than HPI. HEALTH MAINTENANCE: Reviewed health maintenance issues today and recommended the following in detail. BP CONTROLLED (<130/80) due on 02/26/1966 DTAP,TDAP,TD(1 - Tdap) due on 02/26/1967 INFLUENZA(1) due on 12/16/2017 VITALS: BP 98/60 Pulse 79 Temp 36.6 ?C (97.9 ?F) (Tympanic) Wt (!) 143.2 kg (315 lb 12.8 oz) SpO2 93% BMI 55.96 kg/m? Last 4 Encounter Wt Readings: Date: Wt: 02/28/2018 143.2 kg (315 lb 12.8 oz) 02/10/2018 148.3 kg (326 lb 15.1 oz) 12/14/2017 158.3 kg (349 lb) 11/14/2017 158.8 kg (350 lb) PHYSICAL EXAMINATION: General appearance: Well appearing, alert, in no acute distress, well-hydrated, well nourished. and on oxygen. Breathing comfortably. Skin: Skin color, texture, turgor normal, no suspicious rashes or lesions Head: Normocephalic, no masses, lesions, tenderness or abnormalities Neck: Supple, no adenopathy; thyroid symmetric, normal size, no bruits Lungs:decreased breath sounds in the bases. Heart: irreg without murmur, gallop, or rubs. No ectopy Abdomen: Normal abdominal exam, Abdomen soft, non-tender. Bowel sounds normal. No masses, organomegaly Extremities: one plus edema. No redness or warmth ASSESSMENT/PLAN: 1. Hemothorax on left - ICD9: 511.89, ICD10: J94.2 (primary diagnosis) - decision was made to hold on anticoagulation for now given spontaneous hemothorax and vaginal bleeding. On asa. Consider restarting if ok with pulm nad cardilogy. - CONSULT TO CARDIOLOGY - CONSULT TO PULM/CRITICAL CARE - CBC + DIFF - XR CHEST 2V FRONTAL/LAT 2. Chronic obstructive pulmonary disease, unspecified COPD type (HCC) - ICD9: 496, ICD10: J44.9 - as above. Call if worssns. - CONSULT TO PULM/CRITICAL CARE - COMPOUNDED PRESCRIPTION - XR CHEST 2V FRONTAL/LAT 3. Essential hypertension - ICD9: 401.9, ICD10: I10 - good control - Continue current medication(s) - Goal of BP <130/80 4. Paroxysmal atrial fibrillation (HCC) - ICD9: 427.31, ICD10: I48.0 - as above., continue current meds. - CONSULT TO CARDIOLOGY 5. On home oxygen therapy - ICD9: V46.2, ICD10: Z99.81 - add humidifier to oxygen. - CONSULT TO PULM/CRITICAL CARE - COMPOUNDED PRESCRIPTION 6. Gastroesophageal reflux disease without esophagitis - ICD9: 530.81, ICD10: K21.9 - Stable. 7. Borderline diabetes - ICD9: 790.29, ICD10: R73.03 - check labs. - COMP METABOLIC PANEL - HGB A1C - LIPID PANEL BASIC 8. Morbid obesity (HCC) - ICD9: 278.01, ICD10: E66.01 Work on weight lossl 9. Endometrial cancer, grade I (HCC) - ICD9: 182.0, ICD10: C54.1 - see chief projectionist. 10. Vaginal bleeding - ICD9: 623.8, ICD10: N93.9 - as above. 11. Acute on chronic combined systolic and diastolic congestive heart failure (HCC) - ICD9: 428.43, 428.0, ICD10: I50.43 - LIPID PANEL BASIC - XR CHEST 2V FRONTAL/LAT - NT PRO BNP Sanchez Spears MD RTO in six weeks and prn. CNOV Observed: 02/28/2018 Status: COMPLETED Source: [place] 9:20 AM [facility] REPOSITORY Office Visit (FAMPWS) SANDRAALBA ([id number]) 1950 F Date Time Provider Department 02/28/18 9:20 AM SANCHEZ SPEARS During your visit today, we recorded the following information about you: Temperature Pulse Blood pressure Weight 97.9 degrees 79/minute 98/60 143.2 kg Sanchez Spears MD 02/28/2018 11:06 AM Signed Transitional Care Management Progress Note The patients TCM visit was performed within the 7 days of discharge. Patient's Date of discharge: 02/21/18 Date of initial coordinator contact after discharge: 02/23/18 Discharge diagnosis: Heart Failure Medication review completed Yes Crissy Easton Ma TRANSITION CARE MANAGEMENT: Date of Outreach: 02/23/2018 Outreach Attempt 1: Contact Made Date of Discharge 02/21/2018 Some recent data might be hidden ? SUMMARY: -Pt discharged from on 02/21. -Follow up appointment scheduled for 03/07, instructed to come to walk in clinic on 02/28 to be seen sooner. -Medication review done with patient. -Admitted for: Principal Problem (Resolved): ?? Respiratory failure (HCC) Active Problems: ?? COPD (chronic obstructive pulmonary disease) (HCC) ?? HTN (hypertension) ?? Atrial fibrillation (HCC) ?? Endometrial cancer, grade I (HCC) ?? Obesity, Class III, BMI >= 40 ?? Hemothorax on left CONCERNS: Reports feeling really good O2@2L during day and [employer] informed order to increase O2@6L at night with CPAP No SOB, chest pain, palpitations or stomach pain. Using spirometer able to raise ball to 2000 Reports occasional cough, can feel mucous but unable to expectorate ? NEW MEDICATIONS: amiodarone (PACERONE) 200 mg Take 2 tablets by mouth twice daily for 9 doses (until 02/26/18), then take one tablet once daily after that. furosemide (LASIX) 40 mg Take 1 tablet by mouth once daily. ? MEDICATION CHANGES: metoprolol tartrate, short acting, (LOPRESSOR) 50 mg Take 1 tablet by mouth every 6 hours. lisinopril 2.5 mg Take 1 tablet by mouth once daily. ? MEDS HELD/DISCONTINUED: rivaroxaban (XARELTO) [address] (PROTONIX) 20 mg tablet diltiazem (CARDIZEM) 60 mg tablet ? BRIEF HOSPITAL COURSE: Admitted from [facility] with atrial flutter and hypoxic respiratory failure 02/04/18.. Initially managed for decompensated heart failure with IV lasix and treated for community acquired pneumonia with Levaquin (02/07-02/10). Thoracentesis 02/07 of a left-sided pleural effusion revealed 150cc of bloody fluid. Xarelto was discontinued. The hemothorax enlarged and on 02/10 was noted to be bilateral. She was transferred to [facility] for further management of hemothoraces. Prior to transfer atrial fibrillation/flutter was managed with cardizem gtt and amiodarone gtt. SHe was diuresed 20L without significant improvement in respiratory status. ? [facility] MICU course included a Chest ultrasound 02/11 which showed large left sided pleural effusion which appeared?to be complex with hyperechoic regions within the fluid and possibly loculations. Thoracentesis on 02/12 yielded 1800 ml of bloody fluid consistent with hemothorax of unknown etiology. Chest tube was placed on 02/13 with serous output of 975-375cc/day. PICC was placed on 02/16 due to difficulty establishing PIV access. Her O2 requirements were weaned to home settings. Chest tube was discontinued due to decreased output and no accumulation was noted. Fluids studies,cytology and culture were negative for underlying etiology for the hemothorax. Afib rate remained controlled and pt was?transitioned to metoprolol 50mg every 6 hours with improved rate control and hypotension-discussed transitioning to metoprolol ER at discharge. Team addressed need to hold AC in acute recovery period and patient will address reinitiation of theraputic anticoagulation given [id number] at her cardiology follow up appointment. ? Home with Home Health Care DIET: Heart Health Diet: 2 gm sodium, <200 mg cholesterol, low saturated fat Follow Up with PCP: Sanchez Spears MD Future Appointments Date Time Provider Department Center 03/06/2018 8:30 AM Nydia Ricardo [facility]Kathie 03/07/2018 1:30 PM Dasia HANSEN [facility] 03/07/2018 3:20 PM Sanchez BASS [facility] ? Rin Delcid RN February 23, 2018 5:05 PM ? ? Provider Documentation: In follow-up of hospitalization, Alba Flores is a 68 year old female with the chief complaint of chf I have reviewed the patient?s last hospital course including diagnostic testing performed during this hospitalization, their discharge medications, and my assessment and plan with the patient and any family members present at today?s visit. Patient presents with: Hospital F/U: TCM HPI: Patient presents today for office visit for TCM. Overall feeling much better. [facility] is following. She is watching salt and wearing cpap and oxygen. She doing quite well. Sleeping well. Monitoring weight daily. Will call if gains more than 3 lbs. Pulse ox at home as been good. Last 45 lbs in hospital. No edema. No chest pain or increased shortness of breath. Incentive spirometer does make her cough but no cough elsewhere. Cannot travel so wants appts with local cardiology and pulmonary. She has an extensive medical history. Was admitted in October to [facility] with pneumonia and new onset a fib. Cardioverted unsuccessfully x 3. Discharged on cardizem and xarelto. Followed with Dr. King who diagnosed her with CECILIA. Was in transitional care unit after hospitalization. Readmitted to [facility] with pleural effusion, chf And continued a fib. Eventually transferred to [facility]. Had chest tube placed. [place]bon that her effusions were related to xeralto usage. cytoloty was negative. She was diuresed well and sent home on home oxygen. She has an appt to see cardiology but not until May. She has not set up and appt with pulmonary yet. She does have [facility] seeing her at home. She did not want to see chief projectionist but apparently had vaginal bleeding during hospitalization as well. Reinforced need to do so. That appt is already set up. MEDICATIONS: Current Outpatient Prescriptions: amiodarone (PACERONE) 200 mg tablet Take 2 tablets by mouth twice daily for 9 doses. Take 2 tablets twice daily for 9 doses (until 02/26/18), then take one tablet once daily after that. lisinopril 2.5 mg tablet Take 1 tablet by mouth once daily. metoprolol tartrate, short acting, (LOPRESSOR) 50 mg tablet Take 1 tablet by mouth every 6 hours. furosemide (LASIX) 40 mg tablet Take 1 tablet by mouth once daily. calcium carbonate-vitamin D3 500-100 mg-unit chewable tablet Take 1 tablet by mouth once daily. nystatin (NYSTOP) powder Apply 1 application to affected area three times daily. Menthol-Zinc Oxide (CALMOSEPTINE) 0.44-20.6 % Apply 1 application to affected area twice daily. aspirin 81 mg chewable tablet Take 1 tablet by mouth once daily. Patient is taking daily since she can't afford Xarelto OXYGEN, HOME THERAPY, 2 L/min by Nasal Cannula route as directed. DOCOSAHEXANOIC ACID/EPA (FISH OIL ORAL) Take by mouth. omeprazole (PRILOSEC) 20 mg capsule Take 1 capsule by mouth once daily. No current facility-administered medications for this visit. ALLERGIES: ALLERGIES Allergen Reactions - Asa [Aspirin] GI Upset PAST MEDICAL HISTORY Diagnosis Date - Atrial flutter ([facility]) - Borderline diabetes 12/2014 - COPD (chronic obstructive pulmonary disease) ([facility]) - Endometrial cancer, grade I ([facility]) 12/2014 - GERD (gastroesophageal reflux disease) - HTN (hypertension) 12/2014 - Morbid obesity with BMI of 60.0-69.9, adult ([facility]) - CECILIA (obstructive sleep apnea) - Osteopenia PAST SURGICAL HISTORY Procedure Laterality Date - APPENDECTOMY - LAP, SUPRACERVIAL HYSTERECTOMY W/ TUBEANDOV, <250G 2014 - MIDLINE INSERTION/CONSULT 02/16/2018 - TUBAL LIGATION HX FAMILY HISTORY Problem Relation Age of Onset - COPD Mother - Heart Mother - Heart Father - Colon Cancer Sister Social History Marital status: Spouse name: Years of education: Number of children: Social History Main Topics Smoking status: Former Smoker Packs/day: 1.00 Years: 5.00 Types: Cigarettes Quit date: 04/17/1984 Smokeless tobacco: Never Used Comment: still smokes in the home Alcohol use: Yes Comment: rarely Drug use: No Sexual activity: No Reviewed current medications, allergies, past medical history, surgical history, family history and social history today. REVIEW OF SYSTEMS GI: No nausea, vomiting, or diarrhea : No history of dysuria, frequency or incontinence All other reviewed and negative other than HPI. HEALTH MAINTENANCE: Reviewed health maintenance issues today and recommended the following in detail. BP CONTROLLED (<130/80) due on 02/26/1966 DTAP,TDAP,TD(1 - Tdap) due on 02/26/1967 INFLUENZA(1) due on 12/16/2017 VITALS: BP 98/60 Pulse 79 Temp 36.6 ?C (97.9 ?F) (Tympanic) Wt (!) 143.2 kg (315 lb 12.8 oz) SpO2 93% BMI 55.96 kg/m? Last 4 Encounter Wt Readings: Date: Wt: 02/28/2018 143.2 kg (315 lb 12.8 oz) 02/10/2018 148.3 kg (326 lb 15.1 oz) 12/14/2017 158.3 kg (349 lb) 11/14/2017 158.8 kg (350 lb) PHYSICAL EXAMINATION: General appearance: Well appearing, alert, in no acute distress, well-hydrated, well nourished. and on oxygen. Breathing comfortably. Skin: Skin color, texture, turgor normal, no suspicious rashes or lesions Head: Normocephalic, no masses, lesions, tenderness or abnormalities Neck: Supple, no adenopathy; thyroid symmetric, normal size, no bruits Lungs:decreased breath sounds in the bases. Heart: irreg without murmur, gallop, or rubs. No ectopy Abdomen: Normal abdominal exam, Abdomen soft, non-tender. Bowel sounds normal. No masses, organomegaly Extremities: one plus edema. No redness or warmth ASSESSMENT/PLAN: 1. Hemothorax on left - ICD9: 511.89, ICD10: J94.2 (primary diagnosis) - decision was made to hold on anticoagulation for now given spontaneous hemothorax and vaginal bleeding. On asa. Consider restarting if ok with pulm nad cardilogy. - CONSULT TO CARDIOLOGY - CONSULT TO PULM/CRITICAL CARE - CBC + DIFF - XR CHEST 2V FRONTAL/LAT 2. Chronic obstructive pulmonary disease, unspecified COPD type (HCC) - ICD9: 496, ICD10: J44.9 - as above. Call if worssns. - CONSULT TO PULM/CRITICAL CARE - COMPOUNDED PRESCRIPTION - XR CHEST 2V FRONTAL/LAT 3. Essential hypertension - ICD9: 401.9, ICD10: I10 - good control - Continue current medication(s) - Goal of BP <130/80 4. Paroxysmal atrial fibrillation (HCC) - ICD9: 427.31, ICD10: I48.0 - as above., continue current meds. - CONSULT TO CARDIOLOGY 5. On home oxygen therapy - ICD9: V46.2, ICD10: Z99.81 - add humidifier to oxygen. - CONSULT TO PULM/CRITICAL CARE - COMPOUNDED PRESCRIPTION 6. Gastroesophageal reflux disease without esophagitis - ICD9: 530.81, ICD10: K21.9 - Stable. 7. Borderline diabetes - ICD9: 790.29, ICD10: R73.03 - check labs. - COMP METABOLIC PANEL - HGB A1C - LIPID PANEL BASIC 8. Morbid obesity (HCC) - ICD9: 278.01, ICD10: E66.01 Work on weight lossl 9. Endometrial cancer, grade I (HCC) - ICD9: 182.0, ICD10: C54.1 - see chief projectionist. 10. Vaginal bleeding - ICD9: 623.8, ICD10: N93.9 - as above. 11. Acute on chronic combined systolic and diastolic congestive heart failure (HCC) - ICD9: 428.43, 428.0, ICD10: I50.43 - LIPID PANEL BASIC - XR CHEST 2V FRONTAL/LAT - NT PRO BNP Sanchez Spears MD RTO in six weeks and prn. Referring Provider: SELF [[id number]] Allergies As of Date: 02/28/2018 Noted Allergy Reaction ASA (ASPIRIN) 01/16/2015 8 - GI Upset Date Reviewed: 02/28/2018 Reviewed by: Sanchez Spears - Fully Assessed Reason for Visit: Hospital F/U [57] Cmt: TCM Primary Visit Diagnosis:Hemothorax on left [J94.2] Other Visit Diagnoses:Chronic obstructive pulmonary disease, unspecified COPD type (HCC) [J44.9] Essential hypertension [I10] Paroxysmal atrial fibrillation (HCC) [I48.0] On home oxygen therapy [Z99.81] Gastroesophageal reflux disease without esophagitis [K21.9] Borderline diabetes [R73.03] Morbid obesity (HCC) [E66.01] Endometrial cancer, grade I (HCC) [C54.1] Vaginal bleeding [N93.9] Acute on chronic combined systolic and diastolic congestive heart failure (HCC) [I50.43] Order(s):CONSULT TO CARDIOLOGY [9004] Order #: [id number]: 1 CONSULT TO PULM/CRITICAL CARE [051063] Order #: [id number]: 1 COMPOUNDED PRESCRIPTIONHumidifier for oxygen DX: hypoxiaDisp: 1 EachRfl: 0 CBC + DIFF [SQCBCDIF] Order #: [id number] FUTURE COMP METABOLIC PANEL [SQCMP] Order #: [id number] FUTURE HGB A1C [TLMNE7K] Order #: [id number] FUTURE LIPID PANEL BASIC [SQLIPB] Order #: [id number] FUTURE XR CHEST 2V FRONTAL/LAT [8283420] Order #: [id number] FUTURE NT PRO BNP [SQNTBNP] Order #: [id number] FUTURE Prescriptions as of 02/28/2018 Sig: AMIODARONE 200 MG TABLET Take 2 tablets by mouth twice* LISINOPRIL 2.5 MG TABLET Take 1 tablet by mouth once d* METOPROLOL TARTRATE 50 MG TAB* Take 1 tablet by mouth every * FUROSEMIDE 40 MG TABLET Take 1 tablet by mouth once d* CALCIUM CARBONATE-VITAMIN D3 * Take 1 tablet by mouth once d* NYSTATIN 100,000 UNIT/GRAM TO* Apply 1 application to affect* MENTHOL 0.44 %-ZINC OXIDE 20.* Apply 1 application to affect* ASPIRIN 81 MG CHEWABLE TABLET Take 1 tablet by mouth once d* OXYGEN (HOME THERAPY) 2 L/min by Nasal Cannula rout* FISH OIL ORAL Take by mouth. COMPOUNDED PRESCRIPTION Humidifier for oxygen DX: hy* OMEPRAZOLE 20 MG CAPSULE,CECILIA* Take 1 capsule by mouth once * Problem List As Of Date 02/28/2018 Noted Resolved HTN (hypertension) [I10] Priority: B More... Borderline diabetes [R73.03] INVALID FOR* Endometrial cancer, grade I (HCC) [C54.1] INVALID FOR* Priority: G More... Morbid obesity (HCC) [E66.01] INVALID FOR* Osteopenia [M85.80] INVALID FOR* Atrial flutter with rapid ventricular response *INVALID FOR*02/16/2018 Atrial fibrillation (HCC) [I48.91] INVALID FOR* Priority: B More... GERD (gastroesophageal reflux disease) [K21.9] INVALID FOR* COPD (chronic obstructive pulmonary disease) (H*INVALID FOR* Priority: Mild More... Obesity, Class III, BMI >= 40 [E66.01] INVALID FOR* Priority: M Respiratory failure (HCC) [J96.90] INVALID FOR*02/21/2018 Priority: Mild More... EKATERINA (acute kidney injury) (HCC) [N17.9] INVALID FOR*02/21/2018 Priority: C More... Hemothorax on left [J94.2] INVALID FOR* More... Prescriptions ordered this encounter Disp Refills Start End COMPOUNDED PRESCRIPTION 1 Ea* 0 02/28/2018 Class: Print RX Sig: Humidifier for oxygen DX: hypoxia Disposition: Return in about 6 weeks (around 04/11/2018). Follow-up and Disposition History Recorded Encounter Status:Closed by SANCHEZ SPEARS MD on 02/28/18 PROGRESS Observed: 02/23/2018 Status: COMPLETED Source: [place] 3:[address] [facility] REPOSITORY HNO ID: [id number] Author: Rin (Leticia) Farhana Service: (none) Author Type: Registered Nurse Type: Progress Notes Filed: 02/23/2018 5:09 PM Note Text: TRANSITION CARE MANAGEMENT (TCM) INITIAL CONTACT Provider Action/FYI: No SOB, chest pain or palpitations Occasional non-productive cough O2@2L during day and 6L at night with CPAP Initial contact with patient post discharge, spoke to patient. Patient identified by name and . TRANSITION CARE MANAGEMENT: Date of Outreach: 02/23/2018 Outreach Attempt 1: Contact Made Date of Discharge 02/21/2018 Some recent data might be hidden SUMMARY: -Pt discharged from on 02/21. -Follow up appointment scheduled for 03/07, instructed to come to walk in clinic on 02/28 to be seen sooner. -Medication review done with patient. -Admitted for: Principal Problem (Resolved): Respiratory failure (HCC) Active Problems: COPD (chronic obstructive pulmonary disease) (HCC) HTN (hypertension) Atrial fibrillation (HCC) Endometrial cancer, grade I (HCC) Obesity, Class III, BMI >= 40 Hemothorax on left CONCERNS: Reports feeling really good O2@2L during day and [employer] informed order to increase O2@6L at night with CPAP No SOB, chest pain, palpitations or stomach pain. Using spirometer able to raise ball to 2000 Reports occasional cough, can feel mucous but unable to expectorate NEW MEDICATIONS: amiodarone (PACERONE) 200 mg Take 2 tablets by mouth twice daily for 9 doses (until 02/26/18), then take one tablet once daily after that. furosemide (LASIX) 40 mg Take 1 tablet by mouth once daily. MEDICATION CHANGES: metoprolol tartrate, short acting, (LOPRESSOR) 50 mg Take 1 tablet by mouth every 6 hours. lisinopril 2.5 mg Take 1 tablet by mouth once daily. MEDS HELD/DISCONTINUED: rivaroxaban (XARELTO) [address] (PROTONIX) 20 mg tablet diltiazem (CARDIZEM) 60 mg tablet BRIEF HOSPITAL COURSE: Admitted from [facility] with atrial flutter and hypoxic respiratory failure 02/04/18.. Initially managed for decompensated heart failure with IV lasix and treated for community acquired pneumonia with Levaquin (02/07-02/10). Thoracentesis 02/07 of a left-sided pleural effusion revealed 150cc of bloody fluid. Xarelto was discontinued. The hemothorax enlarged and on 02/10 was noted to be bilateral. She was transferred to [facility] for further management of hemothoraces. Prior to transfer atrial fibrillation/flutter was managed with cardizem gtt and amiodarone gtt. SHe was diuresed 20L without significant improvement in respiratory status. ? [facility] MICU course included a Chest ultrasound 02/11 which showed large left sided pleural effusion which appeared?to be complex with hyperechoic regions within the fluid and possibly loculations. Thoracentesis on 02/12 yielded 1800 ml of bloody fluid consistent with hemothorax of unknown etiology. Chest tube was placed on 02/13 with serous output of 975-375cc/day. PICC was placed on 02/16 due to difficulty establishing PIV access. Her O2 requirements were weaned to home settings. Chest tube was discontinued due to decreased output and no accumulation was noted. Fluids studies,cytology and culture were negative for underlying etiology for the hemothorax. Afib rate remained controlled and pt was transitioned to metoprolol 50mg every 6 hours with improved rate control and hypotension-discussed transitioning to metoprolol ER at discharge. Team addressed need to hold AC in acute recovery period and patient will address reinitiation of theraputic anticoagulation given [id number] at her cardiology follow up appointment. ? Home with Home Health Care DIET: Heart Health Diet: 2 gm sodium, <200 mg cholesterol, low saturated fat Follow Up with PCP: Sanchez Spears MD Future Appointments Date Time Provider Department Center 03/06/2018 8:30 AM Nydia Vogel TIGRE Dwayne TIGRE Haleigh KINJAL 03/07/2018 1:30 PM Dasia Hutchinson JADE [facility] 03/07/2018 3:20 PM Sanchez BASS [facility] Rin Delcid RN February 23, 2018 5:05 PM CNPTOUTREACH Observed: 02/23/2018 Status: COMPLETED Source: [place] 12:00 AM [facility] REPOSITORY Patient Outreach (ROSANAWS) ALBA FLORES F ([id number]) [id number] F Date Time Provider Department 02/23/18 RIN DELCID (RN) KALI During your visit today, we recorded the following information about you: Rin Delcid RN 02/23/2018 5:09 PM Signed TRANSITION CARE MANAGEMENT (TCM) INITIAL CONTACT Provider Action/FYI: No SOB, chest pain or palpitations Occasional non-productive cough O2@2L during day and 6L at night with CPAP Initial contact with patient post discharge, spoke to patient. Patient identified by name and . TRANSITION CARE MANAGEMENT: Date of Outreach: 02/23/2018 Outreach Attempt 1: Contact Made Date of Discharge 02/21/2018 Some recent data might be hidden SUMMARY: -Pt discharged from on 02/21. -Follow up appointment scheduled for 03/07, instructed to come to walk in clinic on 02/28 to be seen sooner. -Medication review done with patient. -Admitted for: Principal Problem (Resolved): Respiratory failure (HCC) Active Problems: COPD (chronic obstructive pulmonary disease) (HCC) HTN (hypertension) Atrial fibrillation (HCC) Endometrial cancer, grade I (HCC) Obesity, Class III, BMI >= 40 Hemothorax on left CONCERNS: Reports feeling really good O2@2L during day and [employer] informed order to increase O2@6L at night with CPAP No SOB, chest pain, palpitations or stomach pain. Using spirometer able to raise ball to 2000 Reports occasional cough, can feel mucous but unable to expectorate NEW MEDICATIONS: amiodarone (PACERONE) 200 mg Take 2 tablets by mouth twice daily for 9 doses (until 02/26/18), then take one tablet once daily after that. furosemide (LASIX) 40 mg Take 1 tablet by mouth once daily. MEDICATION CHANGES: metoprolol tartrate, short acting, (LOPRESSOR) 50 mg Take 1 tablet by mouth every 6 hours. lisinopril 2.5 mg Take 1 tablet by mouth once daily. MEDS HELD/DISCONTINUED: rivaroxaban (XARELTO) [address] (PROTONIX) 20 mg tablet diltiazem (CARDIZEM) 60 mg tablet BRIEF HOSPITAL COURSE: Admitted from [facility] with atrial flutter and hypoxic respiratory failure 02/04/18.. Initially managed for decompensated heart failure with IV lasix and treated for community acquired pneumonia with Levaquin (02/07-02/10). Thoracentesis 02/07 of a left-sided pleural effusion revealed 150cc of bloody fluid. Xarelto was discontinued. The hemothorax enlarged and on 02/10 was noted to be bilateral. She was transferred to [facility] for further management of hemothoraces. Prior to transfer atrial fibrillation/flutter was managed with cardizem gtt and amiodarone gtt. SHe was diuresed 20L without significant improvement in respiratory status. ? [facility] MICU course included a Chest ultrasound 02/11 which showed large left sided pleural effusion which appeared?to be complex with hyperechoic regions within the fluid and possibly loculations. Thoracentesis on 02/12 yielded 1800 ml of bloody fluid consistent with hemothorax of unknown etiology. Chest tube was placed on 02/13 with serous output of 975-375cc/day. PICC was placed on 02/16 due to difficulty establishing PIV access. Her O2 requirements were weaned to home settings. Chest tube was discontinued due to decreased output and no accumulation was noted. Fluids studies,cytology and culture were negative for underlying etiology for the hemothorax. Afib rate remained controlled and pt was transitioned to metoprolol 50mg every 6 hours with improved rate control and hypotension-discussed transitioning to metoprolol ER at discharge. Team addressed need to hold AC in acute recovery period and patient will address reinitiation of theraputic anticoagulation given [id number] at her cardiology follow up appointment. ? Home with Home Health Care DIET: Heart Health Diet: 2 gm sodium, <200 mg cholesterol, low saturated fat Follow Up with PCP: Sanchez Spears MD Future Appointments Date Time Provider Department Center 03/06/2018 8:30 AM Nydia LAYTON 03/07/2018 1:30 PM Dasia Jasper HANSEN [facility] 03/07/2018 3:20 PM Sanchez Spears FAMPWS [facility] Rin Delcid RN February 23, 2018 5:05 PM Allergies As of Date: 02/23/2018 Noted Allergy Reaction ASA (ASPIRIN) 01/16/2015 8 - GI Upset Date Reviewed: 02/21/2018 Reviewed by: Fadi (Rn) LETICIA Way - Fully Assessed Reason for Visit: Transition Of Care [4074] Prescriptions as of 02/23/2018 Sig: AMIODARONE 200 MG TABLET Take 2 tablets by mouth twice* LISINOPRIL 2.5 MG TABLET Take 1 tablet by mouth once d* METOPROLOL TARTRATE 50 MG TAB* Take 1 tablet by mouth every * FUROSEMIDE 40 MG TABLET Take 1 tablet by mouth once d* CALCIUM CARBONATE-VITAMIN D3 * Take 1 tablet by mouth once d* NYSTATIN 100,000 UNIT/GRAM TO* Apply 1 application to affect* ASPIRIN 81 MG CHEWABLE TABLET Take 1 tablet by mouth once d* OXYGEN (HOME THERAPY) 2 L/min by Nasal Cannula rout* OMEPRAZOLE 20 MG CAPSULE,CECILIA* Take 1 capsule by mouth once * MENTHOL 0.44 %-ZINC OXIDE 20.* Apply 1 application to affect* FISH OIL ORAL Take by mouth. Problem List As Of Date 02/23/2018 Noted Resolved HTN (hypertension) [I10] Priority: B More... Borderline diabetes [R73.03] INVALID FOR* Endometrial cancer, grade I (HCC) [C54.1] INVALID FOR* Priority: G More... Morbid obesity (HCC) [E66.01] INVALID FOR* Osteopenia [M85.80] INVALID FOR* Atrial flutter with rapid ventricular response *INVALID FOR*02/16/2018 Atrial fibrillation (HCC) [I48.91] INVALID FOR* Priority: B More... GERD (gastroesophageal reflux disease) [K21.9] INVALID FOR* COPD (chronic obstructive pulmonary disease) (H*INVALID FOR* Priority: Mild More... Obesity, Class III, BMI >= 40 [E66.01] INVALID FOR* Priority: M Respiratory failure (HCC) [J96.90] INVALID FOR*02/21/2018 Priority: Mild More... EKATERINA (acute kidney injury) (HCC) [N17.9] INVALID FOR*02/21/2018 Priority: C More... Hemothorax on left [J94.2] INVALID FOR* More... Encounter Status:Closed by RIN DELCID on 02/23/18 CNDS Observed: 02/21/2018 Status: COMPLETED Source: [place] 6:00 PM [facility] REPOSITORY O ID: [id number] Author: Sharan Thomas Service: General Internal Medicine Author Type: Physician Type: Discharge Summaries Filed: 02/22/2018 11:54 AM Note Text: DISCHARGE SUMMARY PATIENT NAME: Alba Flores ADMISSION DATE: 02/11/2018 DISCHARGE DATE: 02/21/2018 ATTENDING PHYSICIAN: No att. providers found Code Status: Prior Highest Readmission Risk Score: 19 The 30 day readmissions risk score is derived from an internally validated risk model which evaluates patient level characteristics, utilization history, medication orders and lab results up until the day of discharge. Patients with a score of 40 or above are considered highest risk for readmission. Specific patient level drivers will be listed at the bottom of the summary. REASON FOR HOSPITALIZATION: hypoxic respiratory distress due to decompensated heart failure and atrial fibrillation, as well as spontaneous bilateral hemothorax while on therapeutic anticoagulation DIAGNOSIS: Principal Problem (Resolved): Respiratory failure (HCC) Active Problems: COPD (chronic obstructive pulmonary disease) (HCC) HTN (hypertension) Atrial fibrillation (HCC) Endometrial cancer, grade I (HCC) Obesity, Class III, BMI >= 40 Hemothorax on left Resolved Problems: EKATERINA (acute kidney injury) (HCC) Ruled Out OPERATIONS DURING HOSPITALIZATION: None PROCEDURES DURING HOSPITALIZATION: ECHO 02/11/18 CONCLUSIONS: - Technically difficult exam due to body habitus and suboptimal positioning. - Exam indication: Sustained atrial fibrillation - The left ventricle is normal in size. Left ventricular systolic function is severely decreased. EF = 20 ? 5% (visual est.) Variability in biventricular contraction (AF). Technically difficult apical imaging with suboptimal endocardial ?definition. - The right ventricle is normal in size. Right ventricular systolic function is moderately to severely decreased. - The left atrial cavity is dilated. - The right atrial cavity is dilated. - The patient has not had a prior CC echocardiographic exam for comparison. Note that the patient was in atrial fibrillation with rapid ventricular response rates during the examination. Significant impairment of biventricular contraction in the ?context of atrial fibrillation with rapid ventricular response rates. Consider repeat echocardiogram study to reassess ventricular function, once rhythm/rate controlled. US thoracentesis 02/12/18 IR Chest Tube placement 02/13/18 IMPRESSION: 1. ?SUCCESSFUL INSERTION OF A 14 F X 25 CM PIGTAIL DRAINAGE CATHETER INTO THE LEFT POSTERIOR/INFERIOR PLEURAL SPACE. 2. ?ULTRASOUND DEMONSTRATED A LEFT-SIDED, MODERATE SIZED PLEURAL EFFUSION WITHOUT SEPTATION. DVT ultrasound bilateral lower extremities 01/15/18 Negative for acute proximal DVT, limited quality study CT Chest with IV con PE 02/16/18 IMPRESSION: NO CT EVIDENCE OF PULMONARY EMBOLISM WITHIN THE LIMITS OF THE EXAM. ADDITIONAL NONVASCULAR FINDINGS ARE DETAILED IN THE BODY OF THE REPORT.. Lung parenchyma and pleura: There has been decrease in size of left pleural effusion from large to small. ?The residual pleural effusion appears partially loculated. ?Improvement of associated compressive atelectasis. ?Tiny right pleural effusion has slightly increased in size. ?Increase of associated compressive atelectasis. ?Superimposed secondary process such as infection in the regions of atelectasis cannot BE excluded. ?Radiographic follow-up is recommended. Evaluation of the remaining portions of the lungs is limited by breathing motion artifacts. ?Mild centrilobular emphysematous changes are seen mostly in the upper lung zones. ?Inflammatory airway thickening is again seen in the mid to lower lungs. ?Superimposed peribronchial interstitial edema is not excluded. ?There has been development of minimal patchy groundglass clustered nodules in the left upper lobe-about image 51. ? These are likely inflammatory. ?Hemorrhagic nature is not excluded. ? Radiographic follow-up is recommended.. CXR 02/20/18 Lungs and pleura: ?Stable to progressive left and probably stable right inferior hemithoracic opacities, suggestive of pleural effusions and associated atelectasis/consolidation, left side worse than right. ? Other processes such as aspiration or infection not excluded if clinical picture fits. ? Cannot exclude tiny left apical pneumothorax with possible visceral pleural margin identified overlying the left third posterior rib. 02/20/18 ECHO CONCLUSIONS: - Technically difficult exam due to body habitus and suboptimal positioning. - Exam indication: Evaluation of known heart failure to guide therapy - The left ventricle is mildly dilated. There is mild left ventricular hypertrophy. Left ventricular systolic function is moderately decreased. EF = 31 ? ?5% (2D biplane) Definity contrast used for endocardial border detection. Left ventricular diastolic function was not evaluated due to AF. - The right ventricle is dilated. Right ventricular systolic function is mildly decreased. - Limited study to assess left ventricular function now that HR is lower. - Agitated saline study negative for intracardiac shunt (clip #41). - Exam was compared with the prior echocardiographic exam performed on 02/11/2018. Mild improvement of LV function. HOSPITAL COURSE: 67 yo woman with HFrEF 20%, atrial fibrillation with RVR s/p 3 prior unsuccessful DC cardioversions, HTN, GERD, obesity BMI 55, COPD, stage 1 endometrial CA s/p TAHBSO admitted from [facility] where she was admitted with atrial flutter and hypoxic respiratory failure 02/04/18.. She was initially managed for decompensated heart failure with IV lasix and treated for community acquired pneumonia with Levaquin (02/07-02/10). Thoracentesis 02/07 of a left-sided pleural effusion revealed 150cc of bloody fluid. Xarelto was discontinued. The hemothorax enlarged and on 02/10 was noted to be bilateral. She was transferred to [facility] for further management of hemothoraces. Prior to transfer atrial fibrillation/flutter was managed with cardizem gtt and amiodarone gtt. SHe was diuresed 20L without significant improvement in respiratory status. [facility] MICU course included a Chest ultrasound 02/11 which showed large left sided pleural effusion which appeared to be complex with hyperechoic regions within the fluid and possibly loculations. Thoracentesis on 02/12 yielded 1800 ml of bloody fluid consistent with hemothorax of unknown etiology. Chest tube was placed on 02/13 with serous output of 975-375cc/day. PICC was placed on 02/16 due to difficulty establishing PIV access. Her O2 requirements were weaned to home settings and she was transferred to [facility] for further optimization of medical management prior to discharge. Chest tube was discontinued prior to transfer to [facility] due to decreased output and no accumulation was noted. Fluids studies,cytology and culture were negative for underlying etiology for the hemothorax. Afib rate remained controlled and pt was transitioned to metoprolol 50mg every 6 hours with improved rate control and hypotension-discussed transitioning to metoprolol ER at discharge. Team addressed need to hold AC in acute recovery period and patient will address reinitiation of theraputic anticoagulation given [id number] at her cardiology follow up appointment. She had bedside teaching by pharmacy about heart failure management prior to discharge. Prior to admission pt had endorsed vaginal bleeding with AC- she will follow up with gynecology given PMB in setting of history of endometrial cancer. 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 LABS AND PROCEDURES PENDING AT DISCHARGE: Alpha 1 antitrypsin deficiency CONSULTING TEAMS DURING HOSPITALIZATION: Thoracic Surgery, Cardiovascular medicine PATIENT CONDITION AT DISCHARGE: Stable DISCHARGE DISPOSITION: Home with Home Health Care Discharge Physical Exam: VITAL SIGNS: BP 105/61 Pulse 103 Temp 36.7 ?C (98.1 ?F) (Oral) Resp 20 Ht 160 cm (5' 2.99) Wt (!) 148.3 kg (326 lb 15.1 oz) SpO2 99% BMI 57.93 kg/m? GENERAL: Alert, no distress, cooperative SKIN: Skin color, texture, turgor normal. No rashes or lesions. HEAD/SINUSES: No significant findings EYES: PERRLA, EOMI EARS: External ears normal, canals clear, Not examined NOSE: Nares normal. Septum midline. OROPHARYNX: Lips, mucosa, and tongue normal. Teeth and gums normal. Oropharynx normal. NECK: No jugulovenous distention, Supple BACK: Back symmetric, Normal curvature, ROM normal, No CVAT. LUNGS: Decreased breath sounds at bilateral lung bases, no wheezing CARDIAC: Normal S1 and S2; no rubs, murmurs, or gallops, irregularly irregular ABDOMEN: Abdomen soft, non-tender, BS normal, No masses or organomegaly and obese EXTREMITIES: No ulcers, 2+ bilateral peripheral edema with venous stasis changes NEURO: Gait normal. Reflexes normal and symmetric. Sensation grossly intact, Cranial nerves II-XII intact PULSES: 2+ radial, 2+ carotid INFORMATION PROVIDED TO PATIENT: (To pull info documented from the DC Instruct Orderset Complete O/S First): Heart Failure Material Given Addressing: Activity, Diet/Fluid Management, Medication Compliance, Follow-Up with Physician, Smoking Cessation, What to do if CHF Symptoms Worsen AND Daily Weight Monitoring DIET: Heart Health Diet: 2 gm sodium, <200 mg cholesterol, low saturated fat ACTIVITY: Resume pre-hospital activity WOUND/SURGICAL SITE CARE: None ALLERGIES Allergen Reactions - Asa [Aspirin] GI Upset DISCHARGE MEDICATION: Discharge Medication List as of 02/21/2018 5:06 PM START taking these medications amiodarone (PACERONE) 200 mg tablet Take 2 tablets by mouth twice daily for 9 doses. Take 2 tablets twice daily for 9 doses (until 02/26/18), then take one tablet once daily after that. Print RX, Disp-48 tablet, R-0, Long-term furosemide (LASIX) 40 mg tablet Take 1 tablet by mouth once daily. Normal, Disp-30 tablet, R-0, Long-term CONTINUE these medications which have CHANGED lisinopril 2.5 mg tablet Take 1 tablet by mouth once daily. Normal, Disp-30 tablet, R-0, Long-term metoprolol tartrate, short acting, (LOPRESSOR) 50 mg tablet Take 1 tablet by mouth every 6 hours. Normal, Disp-120 tablet, R-0, Long-term CONTINUE these medications which have NOT CHANGED calcium carbonate-vitamin D3 500-100 mg-unit chewable tablet Take 1 tablet by mouth once daily. Med Update, Long-term Dx: 1. Osteopenia, unspecified location nystatin (NYSTOP) powder Apply 1 application to affected area three times daily. Med Update Dx: 1. Back abrasion, unspecified laterality, initial encounter Menthol-Zinc Oxide (CALMOSEPTINE) 0.44-20.6 % Apply 1 application to affected area twice daily. Med Update aspirin 81 mg chewable tablet Take 1 tablet by mouth once daily. Patient is taking daily since she can't afford Xarelto Med Update, Long-term Dx: 1. Atrial flutter with rapid ventricular response (HCC) OXYGEN, HOME THERAPY, 2 L/min by Nasal Cannula route as directed. Med Update omeprazole (PRILOSEC) 20 mg capsule Take 1 capsule by mouth once daily. Normal, Disp-30 capsule, R-5, Long-term Dx: 1. GERD without esophagitis 2. Generalized abdominal pain DOCOSAHEXANOIC ACID/EPA (FISH OIL ORAL) Take by mouth. Historical Med STOP taking these medications rivaroxaban (XARELTO) 20 mg tablet Comments: Reason for Stopping: pantoprazole DR (PROTONIX) 20 mg tablet Comments: Reason for Stopping: diltiazem (CARDIZEM) 60 mg tablet Comments: Reason for Stopping: FUTURE APPOINTMENTS: Follow Up with PCP: Sanchez Spears MD Future Appointments Date Time Provider Department Center 03/06/2018 8:30 AM Nydia Ricardo [facility] 03/07/2018 1:30 PM Dasia Hutchinson [facility] 03/07/2018 3:20 PM Sanchez Spears [facility] Discharge Information Row Name Surgery in Location [facility]GIO HB6 on 02/13/2018 Admission (Discharged) from 02/11/2018 in HOSP MAIN [facility] ? [facility] Phone# ? The patient's risk for 30-day readmission is determined using the following contributing factors: Pt variables contributing to increased readmission risk: 15 Most Recent BUN Result 9.9 First Resulted Calcium During Admission 1 Insurance - Medicare 1 Discharge Disposition - Home 1 History of COPD TIME OF CARE: Discharge Management: I personally spent greater than 30 minutes involved in the discharge management of this patient. SIGNATURE: Margareth Recinos MD PAGER/CONTACT #: [phone] DATE: February 21, 2018 TIME: 9:42 PM [facility] STAFF GIM: All elements of discharge plan of care for the pt confirmed with pt and resident.The note includes my findings, plans and recommendations with my addenda as noted in italics. I personally spent greater than 30 minutes involved in the discharge management of this patient. Sharan Thomas MD [facility] General Internal Medicine-G10 Pager [phone] Office [phone] PT ED Observed: 02/21/2018 Status: COMPLETED Source: [place] 5:02 PM [facility] REPOSITORY O ID: [id number] Author: Mariaa Epstein (Echocardiographer) Service: Pharmacy Author Type: Pharmacist Type: Patient Education Filed: 02/21/2018 5:06 PM Note Text: Heart Failure Education Note Patient Name:Leonor Flores Service Date: 02/21/2018 Service Time: 5:03 PM Heart Failure Education Provided: Brief overview of heart failure and non-pharmacologic therapy options. Medication Education Provided: 1. Reason for taking medications and treatment goals. 2. Benefits of medication therapy. 3. How medications work. 4. Necessary laboratory monitoring. 5. When to take medications and what to do is a dose is missed. 6. Drug interactions (Rx, OTC, herbal) and importance of notifying healthcare provider with any medication changes. 7. Potential duration of therapy. 8. Potential side effects of medications. 9. Use of control measures if applicable. 10. Importance of regularly filling prescriptions and taking medications. 11. Proper storage of medications. Patient was given opportunity to ask questions and receive answers. Current Inpatient Medications: Current hospital medications: lisinopril 2.5 mg tab(s) (ZESTRIL, PRINIVIL) 2.5 mg ORAL DAILY furosemide 40 mg tab(s) (LASIX) 40 mg ORAL DAILY miconazole 2 % 1 application topical powder (LOTRIMIN AF, DESENEX) 1 application TOPICAL BID heparin 5,000 Units injection 5,000 Units SUBCUTANEOUS q 8 H metoprolol tartrate (short acting) 50 mg tab(s) (LOPRESSOR) 50 mg ORAL q 6 H amiodarone 400 mg tab(s) (PACERONE) 400 mg ORAL BID [START ON 02/26/2018] amiodarone 200 mg tab(s) (PACERONE) 200 mg ORAL DAILY calcium carbonate 750 mg chewable tab(s) (TUMS) 750 mg ORAL/FEEDING TUBE TID PRN acetaminophen 650 mg tab(s) (TYLENOL) 650 mg ORAL/FEEDING TUBE q 6 H PRN acetaminophen 650 mg suppository (TYLENOL) 650 mg RECTAL q [address] 20 mg tab(s) (PROTONIX) 20 mg ORAL DAILY senna-docusate 8.6-50 mg 1 tablet (SENNA-S) 1 tablet ORAL BID [id number] D3 500 mg(1,250mg) -200 unit 1 tablet 1 tablet ORAL DAILY READINESS TO LEARN COGNITIVE ABILITY: Alert and oriented MOTIVATION TO LEARN: Interested FAMILY SUPPORT: High - Very involved in pt care INSTRUCTION PROVIDED TO: Patient and family member PATIENT LEARNS BEST BY: Multiple Methods FACTORS AFFECTING LEARNING: None PHYSICAL LIMITATIONS AFFECTING LEARNING: None LEARNING RESPONSE DIAGNOSIS: Heart Failure PATIENT/FAMILY RESPONSE: Verbalizes understanding of: The signs and symptoms of a worsening condition that warrant a call to the physician. Accurate knowledge of prescribed medication prior to discharge. The correct action to take if medication dose is missed. The side effects associated with the medication that warrant a call to the physician. Diet / weight monitoring METHOD OF INSTRUCTION: Individual instruction Written instruction - handouts Verbal instruction FOLLOW-UP PLAN: Complete - No need for follow-up INSTRUCTIONAL AIDS USED: Your Guide to Managing Heart Failure SUPPLEMENTAL MATERIAL PROVIDED: Heart Failure binder FURTHER RECOMMENDATIONS (IF ANY): N/A SIGNATURE: MARIAA EPSTEIN, AIRLINE ATTENDANT PAGER: [phone] CASE MANAGEM Observed: 02/21/2018 Status: COMPLETED Source: [place] 3:42 PM [facility] REPOSITORY [facility] ID: [id number] Author: Etta Ricardo (Rn) LETICIA Carney Service: Care Management Author Type: Registered Nurse Type: Care Mgt Progress Note Filed: 02/21/2018 3:48 PM Note Text: CARE MANAGEMENT DISCHARGE NOTE SERVICE DATE: 02/21/2018 SERVICE TIME: 1542 LOS: 10 days Admission Date: 02/11/2018 DISCHARGE ARRANGEMENT (list agency and phone number) Home Home Care - PT Provider: [facility] CAREGIVER ASSESSMENT: Caregiver is ready, willing and able to meet the patient's needs as recommended by the inter-professional team? Yes Patient's transition needs and plan for meeting these needs: home with [facility] and prn assist from family Does the patient have an acute stroke diagnosis, or has the patient had a stroke during this admission? No HANDOFF COMMUNICATION: Primary Care Physician: Dr. Spears Phone Number: via EMR intake at [facility] TRANSPORTATION ARRANGEMENTS: Car with family Needs Prior to Discharge: Ready for Discharge D/C home today with [facility] providing PT. No desat needed; back at [address] [place] [address]. Family will transport. Please notify Case Management for any changes in skilled needs. Thank you. SIGNATURE: Etta Carney RN PATIENT NAME: Alba Flores DATE: February 21, 2018 TIME: 3:42 PM PAGER/CONTACT #: [phone] PROGRESS Observed: 02/21/2018 Status: COMPLETED Source: [place] 7:26 AM [facility] REPOSITORY HNO ID: [id number] Author: Sharan Thomas Service: General Internal Medicine Author Type: Physician Type: Progress Notes Filed: 02/21/2018 8:28 PM Note Text: Nick Moore Progress Note SERVICE DATE: 02/21/2018 SERVICE TIME: 7:26 AM PRIMARY CARE PHYSICIAN: Sanchez Spears MD BRIEF PLAN FOR TODAY -Bedside HF education with pharmacy -PT/OT -CM finalize home care needs -continue same meds and treatment on discharge, transition to metoprolol ER eventually or if difficulty with beta maeve dosing frequency compliance -addressed importance of ongoing follow up with cardiology- off AC temporarily due to acute bleeding causing hemothorax but will need to revisit at follow up given [id number] -evaluation for etiology of hemothorax did not reveal source- bleed in setting of therapeutic AC with known sig COPD/emphysema INTERVAL EVENTS/SUBJECTIVE -Received all 4 doses of metoprolol yesterday -SBP 89-111, DBP 51-74 -HR 73-120 -no dyspnea, chest pain; endorses mild cough-moist but non productive-no hemoptysis -appetite excellent OBJECTIVE Temp Av.7 ?C (98.1 ?F) Min: 36.4 ?C (97.5 ?F) Max: 36.9 ?C (98.5 ?F) Pulse Av.3 Min: 73 Max: 120 No Data Recorded Cuff BP Min: 89/51 Max: 111/51 INS/OUTS: Intake/Output Summary (Last 24 hours) at 02/21/18 0726 Last data filed at 02/21/18 0200 Gross per 24 hour Intake 620 ml Output 800 ml Net -180 ml PHYSICAL EXAM: General: Alert, oriented, cooperative, healthy appearance. In no acute distress, sitting in chair. Skin: No rash, no lesions. Normal turgor, no bruising. Redness and irritation at skin folds on back, bra line, waist improved from yesterday. Right arm swelling mildly improved from yesterday. HEENT: EOM. Pupils equal, round and reactive Cardiovascular: Heart sounds faint. No murmur Lungs: Respirations unlabored. No cough. Upper lung garcia clear, lower lung garcia have decreased breath sounds bilaterally, L>R. Abdomen: Soft, non-tender, no masses or organomegaly. Central obesity. Extremities: 1+ edema, no calf tenderness. Warm and well perfused. IPCs in place. Neurological: Normal cognition and motor skills. No weakness or sensory deficit Pulses: Radial and posterior tib pulses normal +2 Cor irreg lungs decreased BS bases, diminished throughout Unchanged 1+ edema, no calf tenderness Neuro without focal deficit DATA: Diagnostic tests reviewed for today's visit: Recent Labs 02/21/18 0630 02/20/18 0734 02/19/18 0439 WBC 6.32 7.14 7.82 HB 10.4* 10.6* 10.5* HCT 36.3 34.4* 34.3* PLT 208 200 208 NA 142 143 142 K 4.1 4.0 4.0 CHLOR 101 100 99 CO2 30 29 31* BUN 15 15 16 CREAT 1.07* 1.19* 1.26* GLUC 86 94 89 CA 9.2 9.1 9.1 MG 2.0 2.0 2.0 P 3.8 3.3 3.6 IMAGING CXR 02/20 Lungs and pleura: ?Stable to progressive left and probably stable right inferior hemithoracic opacities, suggestive of pleural effusions and associated atelectasis/consolidation, left side worse than right. ? Other processes such as aspiration or infection not excluded if clinical picture fits. ? Cannot exclude tiny left apical pneumothorax with possible visceral pleural margin identified overlying the left third posterior rib. Cardiomediastinal silhouette: ?Presumed stable cardiomediastinal silhouette. ?Enlarged cardiac silhouette is suspected. TTE 02/20 - Technically difficult exam due to body habitus and suboptimal positioning. - Exam indication: Evaluation of known heart failure to guide therapy - The left ventricle is mildly dilated. There is mild left ventricular hypertrophy. Left ventricular systolic function is moderately decreased. EF = 31 ? ?5% (2D biplane) Definity contrast used for endocardial border detection. Left ventricular diastolic function was not evaluated due to AF. - The right ventricle is dilated. Right ventricular systolic function is mildly decreased. - Limited study to assess left ventricular function now that HR is lower. - Agitated saline study negative for intracardiac shunt (clip #41). - Exam was compared with the prior CC echocardiographic exam performed on 02/11/2018. Mild improvement of LV function. -HR 80 during exam ASSESSMENT AND PLAN Ms. Flores is a 67 yo female with HFrEF 31%, A fib/flutter with RVR off AC, COPD, endometrial cancer here for management of acute hypoxic respiratory failure in the setting spontaneous hemothorax and L pleural effusion, as well as AFib with RVR, and optimization of medical regimen. ? Hypoxic respiratory failure with L hemothorax in setting of COPD Remote 5-10 pack-year smoking history but still smokes 2 packs/day in the home; On 2L O2 at home, and CPAP at night (for ECCILIA); Chest tube 02/13-02/18. OSH records show FEV1 39%, TLC 60%, DLCO 40%, and FEV1/FVC 54% consistent with mixed severe ventilatory defect with symmetric reduction of diffusion capacity. -Serial exams and close monitoring of respiratory status for reaccumulation of effusion, low threshhold for repeat CXR if concern for re-accumulation -f/u outside records for home COPD regimen -f/u outpatient with pulmonology, PCP ? #HTN (hypertension) SBP mostly in 90-110s yesterday, DBP 50-60s. HR 70-110s, better controlled with metoprolol. -Metoprolol tartrate 50mg Q6h (hold for SBP<80 or DBP<50) - Holding lisinopril 2.5mg while relatively hypotensive-reinitiation to be addressed at cardiology follow up visit ? #Atrial Fibrillation/Flutter with Rapid Ventricular Response s/p multiple unsuccessful DC cardioversions; Home meds: diltiazem, metoprolol, Xarelto (Hx of poor med adherence 2/2 cost); [id number], currently off AC due to recent hemothorax and vaginal bleeding. Plan: -Telemetry -Metoprolol tartrate 50mg Q6h -Amiodarone 400mg BID -Appreciate cardiology recs -Risk benefit discussion with patient and consulting teams regarding risk of rebleeding with initiation of anticoagulation, at this point risk of bleeding significant and will plan to hold AC on discharge. When AC restarted, consider Warfarin due to cost concerns ? #HFrEF Echo 12/05: EF 45% Echo on admission : EF 20% while in RVR Most recent Echo: EF 31% while HR 80 Pt reports dry weight of 345 -Metoprolol tartrate?50mg Q6h -Lasix 40mg QD (950cc urine output on 40mg Lasix yesterday) -Holding Lisinopril for EKATERINA -f/u with Heart Failure Clinic -Bedside HF teaching with pharmacy ? #Hx of Endometrial Cancer, grade I S/p TAHBSO in 2015 Some vaginal bleeding prior to admission that stopped with Xarelto held. - F/u outpatient with Gynecology-pt verbalizes understanding that this still needs to be addressed as an outpatient ? #EKATERINA Baseline SCr 1.0. Diuresed 20L at OSH, SCr 1.4 on admission. SCr 1.07 today. -cautious diuresis-continue lasix 40mg -Lisinopril still held for relative hypotension despite EKATERINA recovery ? Dispo: Anticipate home with home garcía care pending PT/OT eval DVT Prophylaxis: Heparin 5,000U SQ TID Diet: Heart Healthy ? Medication and Non-Pharmacologic VTE Prophylaxis/Anticoagulants Anticoagulant AND Antiplatelet Medications? ? Start ? ? Dose Route Frequency Ordered Stop ? 02/18/18 1730 ? heparin 5,000 Units injection ?(Medical At Risk )?? 5,000 Units SUBCUTANEOUS EVERY 8 HOURS 02/18/18 1725 -- ? 02/18/18 1730 pneumatic compression stockings (il,oh) 02/11/18 0245 pneumatic compression stockings (il,oh) 02/11/18 0245 activity - mobilize patient (il,hi) ? VTE Prophylaxis:?VTE prophylaxis appropriate Delaney Shin, MS Pager: [phone] [facility] STAFF I have interviewed the pt and updated the medical student's hx and ros and amended as necessary as noted in italics. I have re-performed and re-documented the arceo elements of hpi, exam, and assessment and plan based on my personal assessment of the pt. Greater than 30 minutes was spent in coordination and execution of discharge plan of care and in bedside discussion with family Sharan Thomas MD [facility] General Internal Medicine-G10 Pager [phone] Office [phone] CBC AND DIFFERENTIAL Collected: 02/21/2018 Status: F Source: [place] 6:30 AM [facility] REPOSITORY TYPE CODE TESTS RESULT OUT OF REFERENCE UNITS RANGE LAB WBC 3.70-11.00 k/uL WBC 6.32 LAB RBC 3.90-5.20 m/uL Low RBC 3.75 LAB HGB 11.5-15.5 g/dL Low Hemoglobin 10.4 LAB HCT 36.0-46.0 % Hematocrit 36.3 LAB MCV 80.0-100.0 fL MCV 96.8 LAB MCH 26.0-34.0 pG MCH 27.7 LAB MCHC 30.5-36.0 g/dL Low MCHC 28.7 LAB RDWCV 11.5-15.0 % RDW-CV 13.6 LAB PLTCT 150-400 k/uL Platelet Count 208 LAB MPV 9.0-12.7 fL MPV 9.3 LAB ANEUT % Neut% 52.4 LAB AANEUT 1.45-7.50 k/uL Abs Neut 3.31 LAB ALYMP % Lymph% 30.2 LAB AALYMP 1.00-4.00 k/uL Abs Lymph 1.91 LAB AMONO % Pendleton% 9.3 LAB AAMONO <0.87 k/uL Abs Pendleton 0.59 LAB AEOS % Eosin% 7.6 LAB AAEOS <0.46 k/uL Abs High Eosin 0.48 LAB ABASO % Baso% 0.5 LAB AABASO <0.11 k/uL Abs Baso 0.03 LAB AUNRBC 0 /100 WBC NRBCs 0.0 LAB ABNRBC <0.01 k/uL Absolute nRBC <0.01 LAB DTYP DTYPE Auto Diff Performed By: #### CBCDIF, MG1, PHOS, BMP #### [facility] [address] [place], [place] [address] #### A1APHE #### [facility] [address] [place] [address] [phone] MAGNESIUM Collected: 02/21/2018 Status: F Source: [place] 6:30 AM [facility] REPOSITORY TYPE CODE TESTS RESULT OUT OF REFERENCE UNITS RANGE LAB MG 1.7-2.3 mg/dL Magnesium 2.0 Performed By: #### CBCDIF, MG1, PHOS, BMP #### [facility] [address] [place], [place] [address] #### A1APHE #### [facility] [address] [place] [address] [phone] PHOSPHORUS Collected: 02/21/2018 Status: F Source: [place] 6:30 AM [facility] REPOSITORY TYPE CODE TESTS RESULT OUT OF REFERENCE UNITS RANGE LAB PHOS 2.7-4.8 mg/dL Phosphorus 3.8 Performed By: #### CBCDIF, MG1, PHOS, BMP #### [facility] [address] [place], [place] [address] #### A1APHE #### [facility] [address] [place] [address] [phone] BASIC METABOLIC PANL Collected: 02/21/2018 Status: F Source: [place] 6:30 AM [facility] REPOSITORY TYPE CODE TESTS RESULT OUT OF REFERENCE UNITS RANGE LAB GLU 74-99 mg/dL Glucose 86 Result Comment: The [place] Diabetes Association (ADA) provides guidance for cutoff values for fasting glucose and random glucose. The ADA defines fasting as no caloric intake for at least 8 hours. Fas ting plasma glucose results between 100 to 125 mg/dL indicate increased risk for diabetes (prediabetes). Fasting plasma glucose results greater than or equal to 126 mg/dL meet the criteria for diagnosis of diabetes. In the absence of unequivocal hyperglycemia, results should be confirmed by repeat testing. In a patient with classic symptoms of hyperglycemia or hyperglycemic crisis, random plasma glucose results greater than or equal to 200 mg/dL meet the criteria for diagnosis of diabetes. Reference: Standards of Medical Care in Diabetes 2016, [place] Diabetes Association. Diabetes Care. 2016.39(Suppl 1). LAB BUN 7-21 mg/dL BUN 15 LAB CRET 0.58-0.96 mg/dL Creatinine High 1.07 LAB NA 136-144 mmol/L Sodium 142 LAB K 3.7-5.1 mmol/L Potassium 4.1 LAB CL 97-105 mmol/L Chloride 101 LAB CO2 22-30 mmol/L CO2 30 LAB AGAP 9-18 mmol/L Anion Gap 11 LAB CA 8.5-10.2 mg/dL Calcium, Total 9.2 LAB GFRAA eGFR- Amer. >60 LAB GFRNAA . eGFR-All Other Races 51 Result Comment: eGFR (Estimated GFR) Units of measure: mL/min/1.73 meters squared eGFR is derived from the reexpressed MDRD Study equation using the following parameters: serum creatinine, age, gender and race. The creatinine assay has been calibrated to be traceable to IDMS. An eGFR <60 mL/min/1.73m2 for >3 months is consistent with chronic kidney disease. Refer to KDOQI guidelines for clinical interpretation. In patients with unstable renal function, e.g. those with acute kidney injury, the eGFR may not accurately reflect actual GFR. Performed By: #### CBCDIF, MG1, PHOS, BMP #### [facility] [address] [place] [address] #### A1APHE #### [facility] [address] [id number] [phone] ALPHA1 ANTITRY PHENO Collected: 02/21/2018 Status: F Source: [place] 6:30 AM [facility] REPOSITORY TYPE CODE TESTS RESULT OUT OF REFERENCE UNITS RANGE LAB A1ANTP Alpha1 Antitry M1M1 Phen Result Comment: (NOTE) The patient appears to have a normal phenotype. All M alleles (including subtypes M1, M2, and M3) produce normal serum concentrations of [id number] inhibitor and are not associated with clinical disease. Caution in interpretation is advised if the patient has been transfused within the previous 21 days. Performed by [facility], [address] [place] [address] [phone] [email or web address], [place] Heck MD, Lab. Director LAB A1ANTS 90-200 mg/dL High Alpha1 Antitry Serum 225 Result Comment: (NOTE) To convert to umol/L, multiply mg/dL by 0.185 Performed By: #### CBCDIF, MG1, PHOS, BMP #### [facility] [address], [place] [address] #### A1APHE #### [facility] [address] [place] [address] [id number] [phone] NURSING PROG Observed: 02/21/2018 Status: COMPLETED Source: [place] 6:05 AM [facility] REPOSITORY HNO ID: [id number] Author: Kayla BuiRn) LETICIA Tai Service: Nursing Author Type: Registered Nurse Type: Nursing Progress Note Filed: 02/21/2018 6:07 AM Note Text: Nursing Progress Note Patient Name: Alba Flores Patient Location: H081 021/H081-21 Daily Note:Patient educated on skin care measures and the role of turning to prevent pressure ulcers. Patient continues to decline turns. Preventative dressings and other skin care measures in place. Patient encouraged to make frequent positional changes while in bed. Patient also prefers to have four side rails up at all times. Educated on risks of having all side rails up, but patient continues to prefer for the rails to be raised at all times. This note was completed by: Kayla Tai RN [facility] Observed: 02/20/2018 Status: COMPLETED Source: [place] 12:47 PM [facility] REPOSITORY HNO ID: [id number] Author: Andres Whitfield (Chaplain) Service: Spiritual Care Author Type: Blood Bank Coordinator Type: Allied Health Filed: 02/20/2018 12:48 PM Note Text: SPIRITUALCARE Spiritual Care Visit- Brief Note Name: Alba Flores Date: February 20, 2018 Notes: Patient not in the room. Blood Bank Coordinator Signature: Chaplain Nahid Paper Tube Cutter To contact the Spiritual Care Department: Please call [phone] or Page the On-Call Blood Bank Coordinator at pager [phone] Thank you for the opportunity to be of service. This is an electronically created document. IF PRINTED, PLEASE DO NOT REMOVE FROM THE CHART OR MODIFY PRINTED COPY. NURSING PROG Observed: 02/20/2018 Status: COMPLETED Source: [place] 12:15 PM [facility] REPOSITORY HNO ID: [id number] Author: Merlyn (Rn) LETICIA Zheng Service: Cardiovascular Medicine Author Type: Registered Nurse Type: Nursing Progress Note Filed: 02/20/2018 12:16 PM Note Text: Bedside echo with agitated saline and definity 02/20/2018 12:16 PM Order reviewed by nurse:yes Medications: Saline - dosage 10 ml x 1 given IVP Reaction: No 02/20/2018 12:16 PM Order reviewed by nurse:yes Medications: Definity - dosage 2.5 ml given slow IV Reaction: No PT ED Observed: 02/20/2018 Status: COMPLETED Source: [place] 10:28 AM [facility] REPOSITORY HNO ID: [id number] Author: Caren Black-T) Pablo Service: Nutrition Therapy Author Type: Bar Manager Type: Patient Education Filed: 02/20/2018 10:28 AM Note Text: NUTRITION PATIENT EDUCATION TOPIC: Survival Skills: Diet PATIENT NAME: Alba Flores SERVICE DATE: February 20, 2018 Diagnosis: ADULT: Respiratory failure EXEMPTION FROM DIET EDUCATION READINESS TO LEARN Motivation to Learn: Eager Family Support: Unable to assess - Family not present Instruction Provided to: Patient Factors Affecting Learning: None Physical Limitations Affecting Learning: None LEARNING RESPONSE Patient / Family Response: Verbalizes understanding of Electrolyte Controlled 2-4 gm Sodium Diet: Rationale behind diet restriction; foods typically high in sodium; reading a food label, tips for reducing sodium in cooking and calculating daily sodium consumption. Method of Instruction: Individual instruction Written instruction - handouts Verbal instruction Instructional Aids Used: NA Supplemental Material Provided to Patient: Nutrition Therapy instruction material: Your Sodium-Controlled Diet Referral (Recommendation): Nutrition - Outpatient MNT Billing Type: Routine Care/15 min 2 units Caren Shah DTR [facility] Pager: [phone] February 20, 2018 10:28 AM XR CHEST 1V FRONTAL Observed: 02/20/2018 Status: F Source: [facility] 8:14 AM [facility] REPOSITORY * * *Final Report* * * DATE OF EXAM: Feb 20 2018 8:14AM ROSY [id number] - XR CHEST 1V FRONTAL PORT / PROCEDURE REASON: Pleural effusion * * * * Physician Interpretation * * * * EXAMINATION: CHEST RADIOGRAPH (PORTABLE SINGLE VIEW AP) Exam Date/Time: 02/20/2018 8:14 AM Clinical History: Pleural effusion, MQ: [id number] Comparison: 1 day prior RESULT: See impression. IMPRESSION: Lines, tubes, and devices: None visible. Lungs and pleura: Stable to progressive left and probably stable right inferior hemithoracic opacities, suggestive of pleural effusions and associated atelectasis/consolidation, left side worse than right. Other processes such as aspiration or infection not excluded if clinical picture fits. Cannot exclude tiny left apical pneumothorax with possible visceral pleural margin identified overlying the left third posterior rib. Cardiomediastinal silhouette: Presumed stable cardiomediastinal silhouette. Enlarged cardiac silhouette is suspected. Other: . Acid Mixer: PSCB Transcribe Date/Time: Feb 20 2018 10:59A Dictated by : NICO CHAKRABORTY MD This examination was interpreted and the report reviewed and electronically signed by: NICO CHAKRABORTY MD on Feb 20 2018 11:03AM EST [id number] CBC AND DIFFERENTIAL Collected: 02/20/2018 Status: F Source: [place] 7:34 AM [facility] REPOSIT[facility] TYPE CODE TESTS RESULT OUT OF REFERENCE UNITS RANGE LAB WBC 3.70-11.00 k/uL WBC 7.14 LAB RBC 3.90-5.20 m/uL Low RBC 3.76 LAB HGB 11.5-15.5 g/dL Low Hemoglobin 10.6 LAB HCT 36.0-46.0 % Low Hematocrit 34.4 LAB MCV 80.0-100.0 fL MCV 91.5 LAB MCH 26.0-34.0 pG MCH 28.2 LAB MCHC 30.5-36.0 g/dL MCHC 30.8 LAB RDWCV 11.5-15.0 % RDW-CV 13.3 LAB PLTCT 150-400 k/uL Platelet Count 200 LAB MPV 9.0-12.7 fL MPV 10.0 LAB ANEUT % Neut% 65.7 LAB AANEUT 1.45-7.50 k/uL Abs Neut 4.68 LAB ALYMP % Lymph% 19.3 LAB AALYMP 1.00-4.00 k/uL Abs Lymph 1.38 LAB AMONO % Pendleton% 9.2 LAB AAMONO <0.87 k/uL Abs Pendleton 0.66 LAB AEOS % Eosin% 5.7 LAB AAEOS <0.46 k/uL Abs Eosin 0.41 LAB ABASO % Baso% 0.1 LAB AABASO <0.11 k/uL Abs Baso <0.03 LAB AUNRBC 0 /100 WBC NRBCs 0.0 LAB ABNRBC <0.01 k/uL Absolute nRBC <0.01 LAB DTYP DTYPE Auto Diff Performed By: #### CBCDIF, MG1, PHOS, BMP #### [facility] [address] [place] [address] MAGNESIUM Collected: 02/20/2018 Status: F Source: [place] 7:34 AM [facility] REPOSITORY TYPE CODE TESTS RESULT OUT OF REFERENCE UNITS RANGE LAB MG 1.7-2.3 mg/dL Magnesium 2.0 Performed By: #### CBCDIF, MG1, PHOS, BMP #### [place] [address] PHOSPHORUS Collected: 02/20/2018 Status: F Source: [place] 7:34 AM [facility] REPOSITORY TYPE CODE TESTS RESULT OUT OF REFERENCE UNITS RANGE LAB PHOS 2.7-4.8 mg/dL Phosphorus 3.3 Performed By: #### CBCDIF, MG1, PHOS, BMP #### [place] [address] BASIC METABOLIC PANL Collected: 02/20/2018 Status: F Source: [place] 7:34 AM [facility] REPOSITORY TYPE CODE TESTS RESULT OUT OF REFERENCE UNITS RANGE LAB GLU 74-99 mg/dL Glucose 94 Result Comment: The [place] Diabetes Association (ADA) provides guidance for cutoff values for fasting glucose and random glucose. The ADA defines fasting as no caloric intake for at least 8 hours. Fas ting plasma glucose results between 100 to 125 mg/dL indicate increased risk for diabetes (prediabetes). Fasting plasma glucose results greater than or equal to 126 mg/dL meet the criteria for diagnosis of diabetes. In the absence of unequivocal hyperglycemia, results should be confirmed by repeat testing. In a patient with classic symptoms of hyperglycemia or hyperglycemic crisis, random plasma glucose results greater than or equal to 200 mg/dL meet the criteria for diagnosis of diabetes. Reference: Standards of Medical Care in Diabetes 2016, [place] Diabetes Association. Diabetes Care. 2016.39(Suppl 1). LAB BUN 7-21 mg/dL BUN 15 LAB CRET 0.58-0.96 mg/dL Creatinine High 1.19 LAB NA 136-144 mmol/L Sodium 143 LAB K 3.7-5.1 mmol/L Potassium 4.0 LAB CL 97-105 mmol/L Chloride 100 LAB CO2 22-30 mmol/L CO2 29 LAB AGAP 9-18 mmol/L Anion Gap 14 LAB CA 8.5-10.2 mg/dL Calcium, Total 9.1 LAB GFRAA eGFR- Amer. 54 LAB GFRNAA . eGFR-All Other Races 45 Result Comment: eGFR (Estimated GFR) Units of measure: mL/min/1.73 meters squared eGFR is derived from the reexpressed MDRD Study equation using the following parameters: serum creatinine, age, gender and race. The creatinine assay has been calibrated to be traceable to IDMS. An eGFR <60 mL/min/1.73m2 for >3 months is consistent with chronic kidney disease. Refer to KDOQI guidelines for clinical interpretation. In patients with unstable renal function, e.g. those with acute kidney injury, the eGFR may not accurately reflect actual GFR. Performed By: #### CBCDIF, MG1, PHOS, BMP #### [facility] [address] [place] [id number] PROGRESS Observed: 02/20/2018 Status: COMPLETED Source: [place] 7:24 AM [facility] REPOSITORY O ID: [id number] Author: Sharan Thomas Service: General Internal Medicine Author Type: Physician Type: Progress Notes Filed: 02/20/2018 9:52 PM Note Text: Nick Moore Progress Note SERVICE DATE: 02/20/2018 SERVICE TIME: 7:24 AM PRIMARY CARE PHYSICIAN: Sanchez Spears MD BRIEF PLAN FOR TODAY -Attend HF class in J6 conference room -PT/OT -f/u OSH records for PFTs INTERVAL EVENTS/SUBJECTIVE -HR 75-116 yesterday OBJECTIVE Temp Av.7 ?C (98 ?F) Min: 36.3 ?C (97.4 ?F) Max: 36.9 ?C (98.4 ?F) Pulse Av.8 Min: 75 Max: 116 No Data Recorded Cuff BP Min: 85/61 Max: 116/74 Pain Score: 0/10 INS/OUTS: Intake/Output Summary (Last 24 hours) at 02/20/18 0737 Last data filed at 02/20/18 0600 Gross per 24 hour Intake 520 ml Output 950 ml Net -430 ml PHYSICAL EXAM: General: Alert, oriented, cooperative, healthy appearance. In no acute distress. Skin: No rash, no lesions. Normal turgor, no bruising. Left arm swollen after IV infiltrated. Redness and irritation at skin folds and intertriginous areas HEENT: EOM. Pupils equal, round and reactive Cardiovascular: Heart sounds faint. Normal S1 and S2; no rubs, murmurs, or gallops. Lungs: Clear lung garcia. Respirations unlabored. Diaphragmatic excursion equal. No cough. Decreased breath sounds bilateral bases Abdomen: Soft, non-tender, no masses or organomegaly, central obesity Extremities: 1+ peripheral edema, no calf tenderness, warm and well perfused Neurological: Normal cognition and motor skills. No weakness or sensory deficit Pulses: Radial and posterior tib pulses normal +2 DATA: Diagnostic tests reviewed for today's visit: Recent Labs 02/19/18 0439 02/17/18 2305 WBC 7.82 9.72 HB 10.5* 10.4* HCT 34.3* 33.5* PLT 208 201 NA 142 138 K 4.0 3.7 CHLOR 99 98 CO2 31* 32* BUN 16 19 CREAT 1.26* 1.17* GLUC 89 101* CA 9.1 8.6 MG 2.0 1.8 P 3.6 3.3 UA with Microscopy: Cloudy, a few squamous epithelial cells, but negative otherwise. No proteinuria. IMAGING CXR 02/20 Lines, tubes, and devices: ?The percutaneous left basilar pleural space pigtail catheter has been removed. Lungs and pleura: ?The lung volumes are small. ?The right costophrenic angle is not included on this exam. ?Trace left effusion with left basilar atelectasis is seen. ?Mild right basilar atelectasis is present. ? There is no large pneumothorax. Cardiomediastinal silhouette: ?Stable cardiomediastinal silhouette. ?The heart is enlarged. ASSESSMENT AND PLAN Ms. Flores is a 67 yo female with HFrEF 20%, A fib/flutter with RVR off AC, COPD, endometrial cancer here for management of acute hypoxic respiratory failure in the setting spontaneous hemothorax and L pleural effusion, as well as AFib with RVR, and optimization of medical regimen. ? Hypoxic respiratory failure with L hemothorax in setting of COPD Remote 5-10 pack-year smoking history but still smokes 2 packs/day in the home; On 2L O2 at home, and CPAP at night (for CECILIA); Chest tube 02/13-02/18. Removed prior to transfer to [facility] -Currently 97% on 2L NC -Serial exams and close monitoring of respiratory status for reaccumulation of effusion, low threshhold for repeat CXR if concern for re-accumulation -f/u outside records for home COPD regimen ? #HTN (hypertension) SBP mostly in 90-110s yesterday, DBP 60-70s. HR 100-110s, occasionally in 70s. -Metoprolol tartrate 50mg Q6h (hold for SBP<80 or DBP<50) - Holding lisinopril 2.5mg while relatively hypotensive ? #Atrial Fibrillation/Flutter with Rapid Ventricular Response s/p multiple unsuccessful DC cardioversions; -Home meds: diltiazem, metoprolol, Xarelto (Hx of poor med adherence 2/2 cost); [id number], currently off AC due to recent hemothorax and vaginal bleeding -HR in 110s today Plan: -Telemetry -Metoprolol tartrate 50mg Q6h -Amiodarone 400mg BID -Appreciate cardiology recs -Consider Warfarin vs Lovenox vs Xarelto on discharge due to cost concerns - as well as risk benefit discussion with patient and consulting teams regarding risk of rebleeding with initiation of anticoagulation, at this point risk of bleeding significant and will plan to hold AC on discharge. ? #HFrEF Echo 12/05: EF 45% Echo on admission : EF 20% while in RVR Pt reports dry weight of 345 -Metoprolol tartrate 50mg Q6h (hold for SBP<80 or DBP<50) -Lasix 60mg QD (950cc urine output on 40mg Lasix yesterday) -Holding Lisinopril for EKATERINA -f/u with [facility] -Attend HF class today in [place] (transportation ordered) ? #Hx of Endometrial Cancer, grade I S/p TAHBSO in 2014 Some vaginal bleeding prior to admission that stopped with Xarelto held. - F/u outpatient with Gynecology ? #EKATERINA Baseline SCr 1.0. Diuresed 20L at OSH, SCr 1.4 on admission. SCr 1.26 yesterday, today's results pending Await recovery before starting Lisinopril ? Dispo: Anticipate home with home garcía care pending PT/OT eval DVT Prophylaxis: Heparin 5,000U SQ TID Diet: Heart Healthy ? Medication and Non-Pharmacologic VTE Prophylaxis/Anticoagulants Anticoagulant AND Antiplatelet Medications ? Start Dose Route Frequency Ordered Stop ? 02/18/18 1730 ? heparin 5,000 Units injection (Medical At Risk ) 5,000 Units SUBCUTANEOUS EVERY 8 HOURS 02/18/18 1725 -- ? 02/18/18 173 pneumatic compression stockings ([place]) 02/11/18 024 pneumatic compression stockings ([place] 02/11/18 0245 activity - mobilize patient ([place]) VTE Prophylaxis: VTE prophylaxis appropriate Delaney Shin MS Pager: [phone] The above assessment and plan was reviewed in detail and I agree with the documented physical exam and plan as outlined above. My additions are included in italics above. Margareth Recinos MD Internal Medicine PGY2 02/20/18 6:04 PM [facility] STAFF: All elements of interval history and pe of the pt confirmed with pt and resident. I reviewed the resident and students note, repeated all documented history review and reexamined the pt and agree with the documented findings and plan of care. The note includes my findings, plans and recommendations. Sharan Thomas MD [facility] General Internal Medicine-G10 Pager [phone] Office [phone] NURSING PROG Observed: 02/19/2018 Status: COMPLETED Source: [place] 8:00 PM [facility] REPOSITORY HNO ID: [id number] Author: Shantelle Ruiz (Rn) LETICIA Caba Service: Nursing Author Type: Registered Nurse Type: Nursing Progress Note Filed: 02/20/2018 7:46 AM Note Text: Nursing Progress Note Patient Name: Alba Flores Patient Location: H081 [id number]/H081-21 Daily Note: 1930 Assumed care of patient. Pt asleep. On tele and continous spo2 monitoring. O2 sats wnl on RA. 2230 BP 95/60, Repeat 90/56. Paged nick Moore pressure controller. Resident returned call and instructed to give amiodarone. 0045 BP 85/61 [place] pressure controller paged to notify [phone] No blood return from midline, unable to draw labs, changed to lab collect. This note was completed by: Shantelle Caba RN CASE MANAGEM Observed: 02/19/2018 Status: COMPLETED Source: [place] 3:[address] [facility] REPOSITORY [facility] ID: [id number] Author: Etta BuiRn) LETICIA Carney Service: Care Management Author Type: Registered Nurse Type: Care Mgt Progress Note Filed: 02/19/2018 3:21 PM Note Text: CARE MANAGEMENT PROGRESS NOTE SERVICE DATE: 02/19/2018 SERVICE TIME: 1521 LOS: 8 days Needs Prior to Discharge: Home Care Order;Discharge Transportation;Other: See Comment (change in oxygen?) D/C date TBD. [facility] will provide care. Need f2f. Devin Boles (home health aide) ); call to resume at d/c. Home O2. Currently on 4.5L. Has hospital bed and shower chair. Family has concerns that spouse does not understand the gravity of pt health situation and will expect her to over-do her activity at home (ie: cooking and cleaning). Transportation TBD: family vs. BLS. Please notify Case Management for any changes in skilled needs. Thank you. SIGNATURE: Etta Carney RN PATIENT NAME: Alba Flores DATE: February 19, 2018 TIME: 3:21 PM PAGER/CONTACT #: [phone] URINALYSIS WITH Collected: 02/19/2018 Status: F Source: [place] MICROSCOPIC 1:[address] [facility] REPOSITORY TYPE CODE TESTS RESULT OUT OF RANGE REFERENCE UNITS LAB UCOL Yellow Color Yellow LAB [facility] Clear Clarity Abnormal Cloudy Alert LAB UGLUC Negative mg/dL Glucose, Urine Negative LAB UBIL Negative Bilirubin, Urine Negative LAB UKET Negative Ketones, Urine Negative LAB USPG 1.005-1.030 Specific [place], Ur 1.016 LAB UHGB Negative Hemoglobin/Blood, Negative Ur LAB UPH 4.5-8.0 pH 6.0 LAB UPROT Negative mg/dL Protein, Urine Negative LAB UUROB Normal Urobilinogen Normal LAB UNITR Negative Nitrites Negative LAB ULKEST Negative Leukest Negative LAB UCOM Comments SEE COMMENT Result Comment: N/A LAB UMCOM Urine SEE Cruz Comment COMMENT Result Comment: N/A LAB UWBC 0-5 /HPF WBC 0-5 LAB URBC 0-3 /HPF RBC 0-3 LAB UEPI /HPF Epithelial SEE Cells COMMENT Result Comment: Few Squamous Epithelial Cells Performed By: #### UAWMIC #### [facility] [address] [address] PLAN OF CARE Observed: 02/19/2018 Status: COMPLETED Source: [place] 10:42 AM [facility] REPOSITORY HNO ID: [id number] Author: Ajit Zuniga (Planner) Service: (none) Author Type: (none) Type: Plan of Care Filed: 02/19/2018 10:43 AM Note Text: [facility] BEDSIDE DELIVERY SURVEY 1. Patient to use [facility] Bedside Delivery - YES 2. If fax, patient would like us to fax prescriptions to Pharmacy of choice a. Pharmacy: b. Location: c. Phone: 3. Insurance card on file - NO 4. Credit card for payment - N/A No prescriptions yet. Please page [phone] upon discharge. CONSULT PROG Observed: 02/19/2018 Status: COMPLETED Source: [place] 8:49 AM [facility] REPOSITORY HNO ID: [id number] Author: Becki Gonzalez Service: Thoracic Surgery Author Type: Resident Type: Consult Progress Note Filed: 02/19/2018 8:53 AM Note Text: [facility] THOR[facility] SURGERY CONSULT PROGRESS NOTE Alba Flores [id number] PRIMARY SERVICE: HOSPITAL DAY: # 8 INTERVAL HISTORY NAEs overnight. Apyrexial. L chest pigtail removed. PHYSICAL EXAM BP 90/61 Pulse 108 Temp 36.5 ?C (97.7 ?F) (Oral) Resp 20 Ht 160 cm (5' 2.99) Wt (!) 142.2 kg (313 lb 7.9 oz) SpO2 98% BMI 55.55 kg/m? Intake/Output Summary (Last 24 hours) at 02/19/18 0849 Last data filed at 02/19/18 0600 Gross per 24 hour Intake 1080 ml Output 100 ml Net 980 ml Constitutional: alert, oriented and comfortable at rest. Resp: sats 98% on NC 2L. Cardiovascular: HDS GI: soft, non-tender. DATA Recent Labs 02/19/18 04302/17/18 2305 02/16/18 2330 WBC 7.82 9.72 10.36 HB 10.5* 10.4* 10.7* HCT 34.3* 33.5* 35.5* PLT 208 201 187 Recent Labs 02/19/18 0439 02/17/18 2305 02/16/18 2330 NA 142 138 140 K 4.0 3.7 4.0 CO2 31* 32* 32* BUN 16 19 18 CREAT 1.26* 1.17* 1.19* GLUC 89 101* 95 MG 2.0 1.8 2.1 IMAGING I personally reviewed: CXR ASSESSMENT AND PLAN 67 yo female with CHF, A fib, COPD, CKD, super morbid obesity (BMI 54), hx of endometrial cancer who was transferred to [facility] MICU from OSH on 02/11 for further management of Afib with RVR, acute hypoxic respiratory failure and?L pleural effusion (bloody, pH 7.47, albumin 3.1, Cx: negative). ? - L pigtail removed - Post removal chest XR - OK - Aggressive bronchopulmonary hygiene, incentive spirometry - Discussed with the staff. - Thoracic will sign off, please do re-consult should you have any questions. ? Becki Gonzalez MD Pager [phone] 02/17/2018 8:30 AM XR CHEST 1V FRONTAL Observed: 02/19/2018 Status: F Source: [facility] 7:41 AM CLINIC MAIN CAMPUS REPOSITORY * * *Final Report* * * DATE OF EXAM: Feb 19 2018 7:41AM ROSY [id number] - XR CHEST 1V FRONTAL PORT / PROCEDURE REASON: Pleural effusion * * * * Physician Interpretation * * * * EXAMINATION: CHEST RADIOGRAPH (PORTABLE SINGLE VIEW AP) Exam Date/Time: 02/19/2018 7:41 AM Clinical History: Pleural effusion, MQ: [id number] Comparison: 1 day prior RESULT: See impression. IMPRESSION: Lines, tubes, and devices: The percutaneous left basilar pleural space pigtail catheter has been removed. Lungs and pleura: The lung volumes are small. The right costophrenic angle is not included on this exam. Trace left effusion with left basilar atelectasis is seen. Mild right basilar atelectasis is present. There is no large pneumothorax. Cardiomediastinal silhouette: Stable cardiomediastinal silhouette. The heart is enlarged. Acid Mixer: MYLA Transcribe Date/Time: Feb 19 2018 11:05A Dictated by : LOIS RECINOS MD This examination was interpreted and the report reviewed and electronically signed by: LOIS RECINOS MD on Feb 19 2018 11:06AM EST [id number] CBC AND DIFFERENTIAL Collected: 02/19/2018 Status: F Source: [place] 4:[address] [facility] REPOSITORY TYPE CODE TESTS RESULT OUT OF REFERENCE UNITS RANGE LAB WBC 3.70-11.00 k/uL WBC 7.82 LAB RBC 3.90-5.20 m/uL Low RBC 3.74 LAB HGB 11.5-15.5 g/dL Low Hemoglobin 10.5 LAB HCT 36.0-46.0 % Low Hematocrit 34.3 LAB MCV 80.0-100.0 fL MCV 91.7 LAB MCH 26.0-34.0 pG MCH 28.1 LAB MCHC 30.5-36.0 g/dL MCHC 30.6 LAB RDWCV 11.5-15.0 % RDW-CV 13.4 LAB PLTCT 150-400 k/uL Platelet Count 208 LAB MPV 9.0-12.7 fL MPV 10.1 LAB ANEUT % Neut% 57.5 LAB AANEUT 1.45-7.50 k/uL Abs Neut 4.49 LAB ALYMP % Lymph% 28.1 LAB AALYMP 1.00-4.00 k/uL Abs Lymph 2.20 LAB AMONO % [place]% 9.6 LAB AAMONO <0.87 k/uL Abs [place] 0.75 LAB AEOS % Eosin% 4.7 LAB AAEOS <0.46 k/uL Abs Eosin 0.37 LAB ABASO % Baso% 0.1 LAB AABASO <0.11 k/uL Abs Baso <0.03 LAB AUNRBC 0 /100 WBC NRBCs 0.0 LAB ABNRBC <0.01 k/uL Absolute nRBC <0.01 LAB DTYP DTYPE Auto Diff Performed By: #### CBCDIF, MG1, PHOS, BMP #### [facility] [address] [address] MAGNESIUM Collected: 02/19/2018 Status: F Source: [place] 4:39 [facility] REPOSITORY TYPE CODE TESTS RESULT OUT OF REFERENCE UNITS RANGE LAB MG 1.7-2.3 mg/dL Magnesium 2.0 Performed By: #### CBCDIF, MG1, PHOS, BMP #### [facility] [address] [address] PHOSPHORUS Collected: 02/19/2018 Status: F Source: [place] 4:39 AM [facility] REPOSITORY TYPE CODE TESTS RESULT OUT OF REFERENCE UNITS RANGE LAB PHOS 2.7-4.8 mg/dL Phosphorus 3.6 Performed By: #### CBCDIF, MG1, PHOS, BMP #### [facility] [address] [place] [address] BASIC METABOLIC PANL Collected: 02/19/2018 Status: F Source: [place] 4:39 [facility] REPOSITORY TYPE CODE TESTS RESULT OUT OF REFERENCE UNITS RANGE LAB GLU 74-99 mg/dL Glucose 89 Result Comment: The [place] Diabetes Association (ADA) provides guidance for cutoff values for fasting glucose and random glucose. The ADA defines fasting as no caloric intake for at least 8 hours. Fas ting plasma glucose results between 100 to 125 mg/dL indicate increased risk for diabetes (prediabetes). Fasting plasma glucose results greater than or equal to 126 mg/dL meet the criteria for diagnosis of diabetes. In the absence of unequivocal hyperglycemia, results should be confirmed by repeat testing. In a patient with classic symptoms of hyperglycemia or hyperglycemic crisis, random plasma glucose results greater than or equal to 200 mg/dL meet the criteria for diagnosis of diabetes. Reference: Standards of Medical Care in Diabetes 2016, [place] Diabetes Association. Diabetes Care. 2016.39(Suppl 1). LAB BUN 7-21 mg/dL BUN 16 LAB CRET 0.58-0.96 mg/dL Creatinine High 1.26 LAB NA 136-144 mmol/L Sodium 142 LAB K 3.7-5.1 mmol/L Potassium 4.0 LAB CL 97-105 mmol/L Chloride 99 LAB CO2 22-30 mmol/L CO2 High 31 LAB AGAP 9-18 mmol/L Anion Gap 12 LAB CA 8.5-10.2 mg/dL Calcium, Total 9.1 LAB GFRAA eGFR- Amer. 51 LAB GFRNAA . eGFR-All Other Races 42 Result Comment: eGFR (Estimated GFR) Units of measure: mL/min/1.73 meters squared eGFR is derived from the reexpressed MDRD Study equation using the following parameters: serum creatinine, age, gender and race. The creatinine assay has been calibrated to be traceable to IDMS. An eGFR <60 mL/min/1.73m2 for >3 months is consistent with chronic kidney disease. Refer to KDOQI guidelines for clinical interpretation. In patients with unstable renal function, e.g. those with acute kidney injury, the eGFR may not accurately reflect actual GFR. Performed By: #### CBCDIF, MG1, PHOS, BMP #### [facility] [address] [address] NURSING PROG Observed: 02/18/2018 Status: COMPLETED Source: [place] 6:20 PM [facility] REPOSITORY HNO ID: [id number] Author: Paul (Rn) LETICIA Wong Service: (none) Author Type: Registered Nurse Type: Nursing Progress Note Filed: 02/18/2018 6:22 PM Note Text: Patient transferred from ICU in stable condition. No c/o pain. No shortness of breath on 2 L NC. Patient oriented to the room and use of call light. HISTORY PHYSICAL Observed: 02/18/2018 Status: COMPLETED Source: [place] 5:41 PM [facility] REPOSITORY HNO ID: [id number] Author: Sharan Thomas Service: General Internal Medicine Author Type: Physician Type: HANDP Filed: 02/19/2018 4:46 PM Note Text: INTERNAL MEDICINE HANDP EXAMINATION SERVICE DATE: 02/18/2018 SERVICE TIME: 5:41 PM PRIMARY CARE PHYSICIAN: Sanchez Spears MD Subjective CHIEF COMPLAINT: Respiratory Distress HISTORY OF PRESENT ILLNESS: Ms. Flores is a 67 year old female who presents with respiratory distress. She initially presented to [facility] on 02/04 with hypoxic respiratory failure and EKATERINA 2/2 aggressive diuresis (baseline Scr 1.0). Her history is significant for CHF, COPD with a baseline home O2 requirement of 2L, Atrial flutter with rapid ventricular response s/p multiple unsuccessful DC cardioversions, Stage 1 Endometrial cancer s/p TAHBSO, and obesity (BMI 55.55) Her OSH course included L thoracentesis 02/07 which produced 150 cc bloody fluid. The L pleural effusion continued to grow after thoracentesis and she developed a right sided pleural effusion as well. She was put on a carvedilol drip and amiodarone drip at the OSH for her atrial flutter, and underwent diuresis with furosemide 40mg BID of approximately 20 L. Patient continued to have SOB after diuresis which precipitated transfer to [facility] for further management of her acute hypoxic respiratoyr failure, pleural effusions, and Afib w/ RVR. F MICU course included a Chest ultrasound 02/11 which showed large left sided pleural effusion which appeared to be complex with hyperechoic regions within the fluid and possibly loculations. Thoracentesis on 02/12 yielded 1800 ml of bloody fluid consistent with hemothorax of unknown etiology. Chest tube was placed on 02/13 with serous output of 975-375cc/day. PICC was placed on 02/16 due to difficulty establishing PIV access. Her O2 requirements were weaned to home settings and she was transferred to [facility] for further optimization of medical management prior to discharge. Chest tube was discontinued prior to transfer to [facility] due to decreased output. PAST MEDICAL HISTORY Diagnosis Date - Atrial flutter (HCC) - Borderline diabetes 12/2014 - COPD (chronic obstructive pulmonary disease) (HCC) - Endometrial cancer, grade I (HCC) 12/2014 - GERD (gastroesophageal reflux disease) - HTN (hypertension) 12/2014 - Morbid obesity with BMI of 60.0-69.9, adult (HCC) - CECILIA (obstructive sleep apnea) - Osteopenia PAST SURGICAL HISTORY Procedure Laterality Date - APPENDECTOMY - LAP, SUPRACERVIAL HYSTERECTOMY W/ TUBEANDOV, <250G 2014 - MIDLINE INSERTION/CONSULT 02/16/2018 - TUBAL LIGATION HX FAMILY HISTORY Problem Relation Age of Onset - COPD Mother - Heart Mother - Heart Father - Colon Cancer Sister Social History Substance Use Topics - Smoking status: Former Smoker Packs/day: 1.00 Years: 5.00 Types: Cigarettes Quit date: 04/17/1984 - Smokeless tobacco: Never Used Comment: still smokes in the home - Alcohol use Yes Comment: rarely MEDICATIONS: Current Facility-Administered Medications: heparin 5,000 Units injection 5,000 Units SUBCUTANEOUS q 8 H Devin Rodriguez) Tino metoprolol tartrate (short acting) 50 mg tab(s) (LOPRESSOR) 50 mg ORAL q 6 H Devin Rodriguez) Tino 50 mg at 02/18/18 1222 amiodarone 400 mg tab(s) (PACERONE) 400 mg ORAL BID Morgan Rodriguez) Stanislaw 400 mg at 02/18/18 0831 [START ON 02/26/2018] amiodarone 200 mg tab(s) (PACERONE) 200 mg ORAL DAILY Morgan Rodriguez) Stanislaw calcium carbonate 750 mg chewable tab(s) (TUMS) 750 mg ORAL/FEEDING TUBE TID PRN Stacy (O And M Supervisor) Rodriguez 750 mg at 02/14/18 1802 potassium chloride ER 40 mEq tab(s) (K-DUR, KLOR-CON) 40 mEq ORAL/FEEDING TUBE q 2 H PRN Shieka (Res) Madzima 40 mEq at 02/13/18 0625 magnesium sulfate in water 4-6 g in sterile water 50 ml 4- 6 g INTRAVENOUS PRN Timoteo (Cruzito) MD Michael sodium glycerophosphate 45 mmol in NaCl 0.9% 250 mL (GLYCOPHOS) 45 mmol INTRAVENOUS PRN Timoteo (Cruzito) MD Michael acetaminophen 650 mg tab(s) (TYLENOL) 650 mg ORAL/FEEDING TUBE q 6 H PRN Timoteo (Cruzito) MD Michael 650 mg at 02/18/18 1027 And acetaminophen 650 mg suppository (TYLENOL) 650 mg RECTAL q 6 H PRN Timoteo Cruzito Rodriguez MD pantoprazole DR 20 mg tab(s) (PROTONIX) 20 mg ORAL DAILY Timoteo Rodriguez MD 20 mg at 02/18/18 0515 senna-docusate 8.6-50 mg 1 tablet (SENNA-S) 1 tablet ORAL BID Timoteo Rodriguez MD 1 tablet at 02/18/18 0831 [id number] D3 500 mg(1,250mg) -200 unit 1 tablet 1 tablet ORAL DAILY Timoteo Rodriguez MD 1 tablet at 02/18/18 0831 Prescriptions Prior to Admission: rivaroxaban (XARELTO) 20 mg tablet Take 1 tablet by mouth DAILY AT 6 PM. Disp: 25 tablet Rfl: 0 Past Week at Unknown time pantoprazole DR (PROTONIX) 20 mg tablet Take 1 tablet by mouth once daily. Disp: 30 tablet Rfl: 3 Past Week at Unknown time diltiazem (CARDIZEM) 60 mg tablet Take 1 tablet by mouth three times daily. Disp: 90 tablet Rfl: 3 Past Week at Unknown time metoprolol tartrate, short acting, (LOPRESSOR) 50 mg tablet Take 1 tablet by mouth twice daily. Disp: 60 tablet Rfl: 3 Past Week at Unknown time calcium carbonate-vitamin D3 500-100 mg-unit chewable tablet Take 1 tablet by mouth once daily. Disp: Rfl: Past Week at Unknown time Menthol-Zinc Oxide (CALMOSEPTINE) 0.44-20.6 % Apply 1 application to affected area twice daily. Disp: Rfl: Past Week at Unknown time OXYGEN, HOME THERAPY, 2 L/min by Nasal Cannula route as directed. Disp: Rfl: Past Week at Unknown time omeprazole (PRILOSEC) 20 mg capsule Take 1 capsule by mouth once daily. Disp: 30 capsule Rfl: 5 Past Week at Unknown time DOCOSAHEXANOIC ACID/EPA (FISH OIL ORAL) Take by mouth. Disp: Rfl: Past Week at Unknown time nystatin (NYSTOP) powder Apply 1 application to affected area three times daily. Disp: Rfl: aspirin 81 mg chewable tablet Take 1 tablet by mouth once daily. Patient is taking daily since she can't afford Xarelto Disp: Rfl: lisinopril (ZESTRIL, PRINIVIL) 20 mg tablet Take 1.5 tablets by mouth once daily. Disp: 30 tablet Rfl: 5 ALLERGIES Allergen Reactions - Asa [Aspirin] GI Upset COMPLETE REVIEW OF SYSTEMS: GENERAL: No weight loss, malaise or fevers RESPIRATORY: Cough; productive with sputum, Severe COPD, Dyspnea, Shortness of breath CARDIOVASCULAR: CHF, Cough, Shortness of breath, palpitations GI: No nausea, vomiting, or diarrhea : No history of dysuria, frequency or incontinence MUSCULOSKELETAL: Right shoulder arthritis. Bilateral lower extremity edema. SKIN: Negative for lesions, rash, and itching PSYCH: Negative for sleep disturbance, mood disorder and recent psychosocial stressors ENDOCRINE: Negative for cold or heat intolerance, polyuria, polydipsia and goiter NEURO: No history of headaches, syncope, paralysis, seizures or tremors Objective PHYSICAL EXAM: Patient Vitals for the past 24 hrs: BP Temp Temp src Pulse Resp SpO2 Height Weight 02/18/18 1725 84/54 36.4 ?C (97.6 ?F) Oral 110 22 97 % - - 02/18/18 1605 98/56 36.7 ?C (98 ?F) Oral 112 20 97 % - - 02/18/18 1500 98/54 - - 104 18 96 % - - 02/18/18 1430 120/75 - - 107 18 96 % - - 02/18/18 1400 87/63 - - 110 27 96 % - - 02/18/18 1300 92/59 - - 110 27 96 % - - 02/18/18 1200 106/71 36.8 ?C (98.2 ?F) Oral 113 20 99 % - - 02/18/18 1100 103/69 - - 110 19 96 % - - 02/18/18 1000 99/71 - - 114 20 99 % - - 02/18/18 0900 104/57 - - 113 21 98 % - - 02/18/18 0800 89/58 36.9 ?C (98.4 ?F) Oral 113 19 99 % - - 02/18/18 0700 87/65 - - 113 29 98 % - - 02/18/18 0600 94/56 - - 106 16 97 % - - 02/18/18 0500 98/55 - - 113 16 96 % 160 cm (5' 2.99) (!) 142.2 kg (313 lb 7.9 oz) 02/18/18 0400 90/50 36.4 ?C (97.5 ?F) Axillary 113 18 97 % - - 02/18/18 0300 105/53 - - 111 18 98 % - - 02/18/18 0200 101/61 - - 112 17 98 % - - 02/18/18 0100 106/68 - - 113 17 98 % - - 02/18/18 0000 105/56 36.6 ?C (97.9 ?F) Axillary 113 18 97 % - - 02/17/18 2300 108/67 - - 115 16 98 % - - 02/17/18 2200 107/65 - - 114 18 96 % - - 02/17/18 2100 93/65 - - 116 28 97 % - - 02/17/18 2000 98/61 36.8 ?C (98.2 ?F) Oral 116 21 99 % - - 02/17/18 1900 95/54 - - 117 25 97 % - - 02/17/18 1830 110/52 - - 101 22 98 % - - 02/17/18 1800 97/64 - - 114 23 99 % - - Body mass index is 55.55 kg/m?. GENERAL: Alert, no distress, cooperative, morbidly obese SKIN: Skin color, texture, turgor normal. No rashes or lesions. OROPHARYNX: Lips, mucosa, and tongue are normal.Teeth and gums, normal. Oropharynx normal. NECK: No carotid bruits, Carotid pulse normal contour, Supple LUNGS: Lungs sounds faint. Mild crackles L>R. Good diaphragmatic excursion. CARDIAC: Heart sounds faint. Normal S1 and S2; no rubs, murmurs, or gallops. ABDOMEN: Abdomen soft, non-tender, BS normal, No masses or organomegaly EXTREMETIES: Extremities normal, no deformities, clubbing or skin discoloration. Skin warm. 2+ bilateral lower extremity edema to knees. NEURO: Alert, oriented X 3, Grossly normal cognition, motor function, and cranial nerves III-XII PULSES: 2+ radial, 2+ carotid DATA: Diagnostic tests reviewed for today's visit: Most recent labs and imaging results. Recent Labs 02/17/185 02/16/18 2330 02/15/18 2229 WBC 9.72 10.36 9.51 HB 10.4* 10.7* 10.7* HCT 33.5* 35.5* 34.1* PLT 201 187 188 NA 138 140 137 K 3.7 4.0 3.7 CHLOR 98 99 95* CO2 32* 32* 30 BUN 19 18 24* CREAT 1.17* 1.19* 1.34* GLUC 101* 95 138* CA 8.6 8.6 8.9 MG 1.8 2.1 1.9 P 3.3 2.7 3.4 Recent Labs 02/15/18 2229 TPROT 5.9* ALB 3.2* ALT 12 AST 15 ALKPHOS 76 TBILI 0.3 Results for ALBA FLORES ( ) as of 02/18/2018 19:02 02/12/2018 13:26 Site, BF Thoracentesis Fluid Color, BF Bloody Clarity, BF Turbid (A) Supernatant Color, BF Arin Supernatant Clarity, BF Clear RBC, Body Fluid 3,211,000 Total Nucleated Cells, BF 3,075 Neut%, BF 50 Lymph%, BF 11 [place]%, BF 8 Macro%, BF 5 Meso%, BF 25 Eosin%, BF 1 BF Comment SEE COMMENT BF Review SEE COMMENT Slide Number BF [id number] LD,Body Fluid 153 (A) Body Fluid Type (Albumin) Thoracentesis Fluid Albumin, Body Fluid 3.1 (A) Body Fluid Type (Chol) Thoracentesis Fluid Cholesterol, Body Fluid 91 (A) Glucose, Body Fld 91 (A) Body Fluid Type (pH) Thoracentesis Fluid pH, Body Fluid 7.47 Protein, Body Fluid 5.0 (A) Echo 02/11 - The left ventricle is normal in size. Left ventricular systolic function is severely decreased. EF = 20 ? 5% (visual est.) Variability in biventricular contraction (AF). Note: patient was in atrial fibrillation with rapid ventricular response rates during the examination. - The right ventricle is normal in size. Right ventricular systolic function is moderately to severely decreased. - The left atrial cavity is dilated. - The right atrial cavity is dilated. DVT Scan 02/15 Negative, but cannot rule out calf vein thrombosis due to body habitus limiting exam CXR 02/18 Lines, Tubes, and Devices: ?Stable left basilar pigtail drainage catheter. Lungs and Pleura: ?Bilateral effusions and overlying opacity not significantly changed. No pneumothorax. Cardiomediastinal silhouette: ?Stable cardiac silhouette. CT Chest PE 02/16: No evidence of PE Assessment/Plan Ms. Flores is a 67 yo female with CHF, A fib/flutter with RVR, COPD, endometrial cancer here for management of acute hypoxic respiratory failure, L pleural effusion, AFib RVR, and optimization of medical regimen. #COPD c/b hypoxic respiratory failure and L hemothorax -Remote 5-10 pack-year smoking history but still smokes 2 packs/day in the home -On 2L O2 at home, and CPAP at night (for CECILIA) -Chest tube 02/13-02/18. Removed prior to transfer to [facility]. -Currently on 2L NC -Daily CXR to check for reaccumulation of effusion -f/u outside records for home COPD regimen #HTN (hypertension) -SBP in 80-100s today -Metoprolol tartrate 50mg Q6h (hold for SBP<90 or DBP<55) #Atrial Fibrillation/Flutter with Rapid Ventricular Response -s/p multiple unsuccessful DC cardioversions -Home meds: diltiazem, metoprolol, Xarelto (Hx of poor med adherence 2/2 cost) -HR in 110s today -[id number], currently off AC due to recent hemothorax and vaginal bleeding Plan: -Telemetry -Metoprolol tartrate 50mg Q6h (hold for SBP<90 or DBP<55) -Amiodarone 400mg BID -Appreciate cardiology recs -Consider discharge on Warfarin vs Lovenox vs Xarelto due to cost concerns #HFrEF Echo 12/05: EF 45% Echo on admission : EF 20% while in RVR Pt reports dry weight of 345, currently 313 but edematous and clinically still fluid overloaded -Metoprolol tartrate 50mg Q6h (hold for SBP<90 or DBP<55) -Holding Lisinopril and Lasix for EKATERINA -f/u with Heart Failure Clinic ? #Hx of Endometrial Cancer, grade I S/p TAHBSO in 2014 Some vaginal bleeding prior to admission that stopped with Xarelto held. F/u outpatient with Gynecology #EKATERINA Baseline 1.0. Diuresed 20L at OSH, SCr 1.4 on admission. SCr 1.26 from 1.17 yesterday Await recovery to baseline before starting Lisinopril and Lasix Dispo: Pending PT/OT eval DVT Prophylaxis: Heparin 5,000U SQ BID Diet: Heart Healthy Medication and Non-Pharmacologic VTE Prophylaxis/Anticoagulants Anticoagulant AND Antiplatelet Medications Start Dose Route Frequency Ordered Stop 02/18/18 1730 heparin 5,000 Units injection (Medical At Risk ) 5,000 Units SUBCUTANEOUS EVERY 8 HOURS 02/18/18 1725 -- 02/18/18 1730 pneumatic compression stockings ([place], [place]) 02/11/18 0245 pneumatic compression stockings ([place]) 02/11/18 0245 activity - mobilize patient ([place], [place]) VTE Prophylaxis: VTE prophylaxis appropriate SIGNATURE: Delaney Shin MS PATIENT NAME: Alba Flores DATE: February 18, 2018 TIME: 5:41 PM PAGER/CONTACT #: [phone] Patient seen and examined with medical student; resident note included below [place] [facility] Date of Service: February 18, 2018 Patient: Alba Flores Medical Record: [id number] History of Present Illness Alba Flores is a 67 year old 67 yo female with a h/o CHF, A fib, HTN, COPD, endometrial cancer who was transferred to [facility] MICU from OSH on 02/11 for further management of acute hypoxic respiratory failure secondary to L hemothorax and AFib RVR. Course c/b EKATERINA in setting of over diuresis. CHF -243 labs dry weight -likely tachy-induced in setting of afib -EF 21% on echo from 02/11/18 HTN A fib -4 months ago - diltiazem, metop previously. Previously on Xarelto which was held d/t vaginal bleeding. Was scheduled for ablation as OP prior to admission. -3DC cardioversions -referred for possible ablation -previously on xarelto; stopped on 02/04 when admitted to [facility] -[id number] ?COPD -7-10 yrs,1PPD, significant 2nd hand smoking hx Endometrial cancer-bleeding -[facility] 02/04-02/11 She initially presented to [facility] ED on 02/04 with complaints of SOB. Justa has a hx of chronic hypoxic respiratory failure requiring 2L/min O2. Her last pulmonary function testing was completed in 12/2017 and revealed evidence of an irreversible severe mixed ventilatory defect with a symmetric reduction in diffusing capacity. She was also found to be in afib/flutter with RVR on presentation. She had 3 prior DC cardioversions that were unsuccessful. She had thora for L sided effusion and 150cc of bloody fluid was drained. Repeat CXR on 02/09 showed expansion of effusion. CXR 02/10 showed same effusion with r sided effusion as well. Patient also diuresed 20L with lasix 40po BID. Polaced on cardizem/amio drip for afib/flutter that was refractory to IV lopressor. She was transferred for chest tube placement . [facility] MICU 02/11-02/18 Thora on 02/12 showed 1800cc of bloody fluid consistent with hemothoax. Patient had chest tube placed on 02/12 and removed on 02/18 for large left sided effusion which drained from 375cc-975cc of fluid per day. CT PE done which was negative. Echo on 02/11 with EF 12%. Patient's Sob imoroved with chest tube placement and we was wand to home O2 requirement of 2L. She was never intubated, she was started on BiPAP during her admit. Patient also treated for multiple episodes of afib w/ RVR and was medically controlled on amio 400 BID, lopressor [id number] (with holding paramenters) RNF 02/18-now Patient presents to [facility] after chest tube removal on 02/18 resting comfortably in bed. Bps stable in 90s/60s, then 100s/70s, initially examined she was in sinus with rate of 79. satting well on home 2L O2. CBC with no leukocytosis, hgb 10.5. Cr 1.26 from baseline around 1. Patient denying any worsening SOB, says she feels close to her baseline and has no acute complaints. Denying any CP. Denies any infectious sxs. Review of Systems REVIEW OF SYSTEMS PAIN ASSESSMENT: Negative for pain, history of chronic pain, or current treatment for a chronic pain condition. 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: see HPI ENDOCRINE: Negative for cold or heat intolerance, polyuria, polydipsia and goiter NEURO: No history of headaches, syncope, paralysis, seizures or tremors Past Medical History PAST MEDICAL HISTORY Diagnosis Date - Atrial flutter (HCC) - Borderline diabetes 12/2014 - COPD (chronic obstructive pulmonary disease) (HCC) - Endometrial cancer, grade I (HCC) 12/2014 - GERD (gastroesophageal reflux disease) - HTN (hypertension) 12/2014 - Morbid obesity with BMI of 60.0-69.9, adult (HCC) - CECILIA (obstructive sleep apnea) - Osteopenia Past Surgical History PAST SURGICAL HISTORY Procedure Laterality Date - APPENDECTOMY - LAP, SUPRACERVIAL HYSTERECTOMY W/ TUBEANDOV, <250G 2014 - MIDLINE INSERTION/CONSULT 02/16/2018 - TUBAL LIGATION HX Family History FAMILY HISTORY Problem Relation Age of Onset - COPD Mother - Heart Mother - Heart Father - Colon Cancer Sister Social History Reviewed and updated in [facility] Social History Marital status: Spouse name: Years of education: Number of children: Social History Main Topics Smoking status: Former Smoker Packs/day: 1.00 Years: 5.00 Types: Cigarettes Quit date: 04/17/1984 Smokeless tobacco: Never Used Comment: still smokes in the home Alcohol use: Yes Comment: rarely Drug use: No Sexual activity: No Current Medications No current facility-administered medications on file prior to encounter. Current Outpatient Prescriptions on File Prior to Encounter: rivaroxaban (XARELTO) 20 mg tablet Take 1 tablet by mouth DAILY AT [address] (PROTONIX) 20 mg tablet Take 1 tablet by mouth once daily. diltiazem (CARDIZEM) 60 mg tablet Take 1 tablet by mouth three times daily. metoprolol tartrate, short acting, (LOPRESSOR) 50 mg tablet Take 1 tablet by mouth twice daily. calcium carbonate-vitamin D3 500-100 mg-unit chewable tablet Take 1 tablet by mouth once daily. Menthol-Zinc Oxide (CALMOSEPTINE) 0.44-20.6 % Apply 1 application to affected area twice daily. OXYGEN, HOME THERAPY, 2 L/min by Nasal Cannula route as directed. omeprazole (PRILOSEC) 20 mg capsule Take 1 capsule by mouth once daily. DOCOSAHEXANOIC ACID/EPA (FISH OIL ORAL) Take by mouth. nystatin (NYSTOP) powder Apply 1 application to affected area three times daily. aspirin 81 mg chewable tablet Take 1 tablet by mouth once daily. Patient is taking daily since she can't afford Xarelto lisinopril (ZESTRIL, PRINIVIL) 20 mg tablet Take 1.5 tablets by mouth once daily. Physical Exam VITAL SIGNS: BP 84/54 Pulse 110 Temp (Src) 97.6 (Oral) Resp 22 Ht 5' 2.992 (1.60m) Wt 313 lb 7.9 oz (142.2kg) SpO2 97% BMI 55.55 kg/(m2). General appearance: Well appearing, alert, in no acute distress, well-hydrated, well nourished. Skin: skin color, texture, turgor normal, no rashes or lesions Head: Normocephalic, no masses, lesions, tenderness or abnormalities Eyes: Anicteric sclera. Pupils are equally round and reactive to light. Extraocular movements are intact. ENT: No oral or nasal erythema, bleeding, lesions, striae Neck: Supple, no adenopathy; thyroid symmetric, normal size, no bruits Lymph nodes: No Submandibular, cervical, supraclavicular, axillary, or inguinal lymphadenopathy present Lungs: Lungs clear to auscultation. No wheezing, rhonchi, rales, site of Chest tube removal looks C/D/I; slight erythema where tape is pulled off, no pus Heart: distant heart sounds 2/2 body habitus, irreg irreg without murmur, gallop, or rubs. Abdomen: Normal abdominal exam, Abdomen soft, non-tender. Bowel sounds normal. No masses, organomegaly Extremities: No deformities, bilateral 2+pitting edema to the knees, no skin discoloration. Good capillary refill. Neuro: AANDOx3 . Reflexes normal and symmetric. Sensation grossly intact. 5/5 muscle strength in b/l UE ANDLE Labs/Imaging @[id number](wbc:1,hb:1,hct:1, PLT;1)@ No results for input(s): BNP, PTSEC in the last 6720 hours. Invalid input(s): PT INR;1, APTTT Recent Labs 02/17/18 2305 02/15/18 2229 GLUC 101* < > 138* K 3.7 < > 3.7 NA 138 < > 137 CHLOR 98 < > 95* CO2 32* < > 30 CREAT 1.17* < > 1.34* BUN 19 < > 24* ANION 8* < > 12 CA 8.6 < > 8.9 TPROT -- -- 5.9* ALB -- -- 3.2* TBILI -- -- 0.3 ALKPHOS -- -- 76 AST -- -- 15 ALT -- -- 12 < > = values in this interval not displayed. ECHO 02/11/18 CONCLUSIONS: - Technically difficult exam due to body habitus and suboptimal positioning. - Exam indication: Sustained atrial fibrillation - The left ventricle is normal in size. Left ventricular systolic function is severely decreased. EF = 20 ? 5% (visual est.) Variability in biventricular contraction (AF). Technically difficult apical imaging with suboptimal endocardial ?definition. - The right ventricle is normal in size. Right ventricular systolic function is moderately to severely decreased. - The left atrial cavity is dilated. - The right atrial cavity is dilated. - The patient has not had a prior CC echocardiographic exam for comparison. Note that the patient was in atrial fibrillation with rapid ventricular response rates during the examination. Significant impairment of biventricular contraction in the ?context of atrial fibrillation with rapid ventricular response rates. Consider repeat echocardiogram study to reassess ventricular function, once rhythm/rate controlled. Assessment AND Plan ACUTE CONDITIONS #Acute on chronic hypoxic respiratory failure 2/2 L sided hemothorax-resolving; patient now on baseline home O2 requirements Possibly in the setting of HF exaccerbation on xarelto, CTPE negative for acute PE CTPE on 02/16 with no evidence of PE Acute hypoxic respiratory failure resolved now on baseline home O2 requirements -s/p pigtail placement on 02/12-02/18 -pleural fluid studies positive for lights criteria from 02/12, cytology back for negative for malignant cells -unclear what caused hemothorax, but patient with EF of 21% on most recent echo and patient on anticoagulation which is most likely cause -infectious, TB, malignancy assessment negative Plan: -chest tube removed -currently on home baseline 2L O2 -monitor Is/Os closely -CXR if concern for worsening resp status -consider diuresis in future #HFrEF -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 Previously on Xarelto which was held d/t vaginal bleeding. Was scheduled for ablation as OP prior to admission. -s/p 3DC cardioversions -previously on xarelto; stopped on 02/04 when admitted to [facility] -[id number] --high risk acute rebleeding with recent spontaneous hemothorax causing resp insufficiency-hold AC for now Plan: -continue lopressor 50q6 inpatient - continue amiodarone loading -appreciate cardiology recs; were following in ICU -F/u as outpatient; supposed to have ablation scheduled at [place] -currently holding anticoagulation in setting of hemothorax #EKATERINA Nonoliguric EKATERINA in setting of diuresis, poor PO intake. Baseline SCr 1.00 Cr 1.17--1.26 Plan: -monitor I/Os -monitor BMP -no fluids in setting of HF -gentle diuresis as tolerated CHRONIC CONDITIONS #? COPD -smoking hx of 7-10 yrs , 1PPD -PFTs done at [facility]; records requested; currently unavailable -on home O2 Plan: -continue home O2 -get med rec for home COPD meds taken in past -F/u on PFTs to get final diagnosis #hx of HTN Home meds: diltiazem 60TID, lopressor 50BID, lisinopril 30mg Currently not HTN Plan: -Currently on metop -Holding dilt in setting of CHF with EF of 21% -Holding home lisinopril in setting of EKATERINA Endometrial cancer-bleeding -s/p TAHBSO 2014 c/b recent vaginal bleeding on Xarelto Plan: - [employer] CONSULTANT curb-sided on this admission with recommendations for OP follow up. #Morbid obesity #Sleep Apnea -on CPAP at home Dispo: pending PT/OT eval DVT ppx: heparin sub q Diet: heart healthy diet Ana Maria Adam, PGY-1 Internal Medicine Pager: [phone] [facility] STAFF GIM I have personally obtained and verified the history of present illness as delineated above. I have reviewed the past medical history, family medical history, social history with the patient and agree with the documented history. Physical examination as indicated above has been verified personally by myself. The note includes my findings, plans and recommendations with my addenda as noted in italics above. Sharan Thomas MD [facility] Internal Medicine-G10 Pager [phone] Office [phone] NURSING PROG Observed: 02/18/2018 Status: COMPLETED Source: [place] 3:30 PM [facility] REPOSITORY HNO ID: [id number] Author: Nadine BuiRn) LETICIA Barnhart Service: Nursing Author Type: Registered Nurse Type: Nursing Progress Note Filed: 02/18/2018 3:55 PM Note Text: Nursing Progress Note Patient Name: Alba Flores Patient Location: [id number] Transfer Note: Patient transferred into room/unit H81-21 in stable condition. Actions taken: Patient belongings with patient This note was completed by: Nadine Barnhart RN NURSING PROG Observed: 02/18/2018 Status: COMPLETED Source: [place] 12:19 PM [facility] REPOSITORY HNO ID: [id number] Author: Lisbet Rodgers RN Service: (none) Author Type: Registered Nurse Type: Nursing Progress Note Filed: 02/18/2018 12:20 PM Note Text: Nursing Progress Note Patient Name: Alba Flores Patient Location: G060 [id number]/[id number] Report called to LETICIA Portillo on H81-21 at 12:15. All questions answered. Will transfer to floor after chest tube removed. This note was completed by: Lisbet Rodgers RN PROGRESS Observed: 02/18/2018 Status: COMPLETED Source: [place] 10:13 AM [facility] REPOSITORY HNO ID: [id number] Author: Nviia Pimentel Service: Critical Care Author Type: Physician Type: Progress Notes Filed: 02/18/2018 12:46 PM Note Text: SERVICE DATE: 02/18/2018 SERVICE TIME: 10:13 AM MICU PROGRESS NOTE Admission Date: 02/11/2018 Hospital Day # 7 HPI SUBJECTIVE Interval Events: Improved OBJECTIVE Vital Signs (last filed) Range in last 24h Temp: 36.9 ?C (98.4 ?F) (02/18/18 08) Temp Min: 36.4 ?C (97.5 ?F) Max: 37 ?C (98.6 ?F) Pulse: 113 (02/18/18899) Pulse Min: 97 Max: 117 Resp: 21 (02/18/18899) Resp Min: 16 Max: 29 BP: 104/57 (02/18/18899) BP Min: 87/65 Max: 122/64 MAP Non Invasive (Mean Arterial Pressure): 78 (02/18/18899) MAP Non Invasive (Mean Arterial Pressure) Min: 63 Max: 90 No Data Recorded SpO2: 98 % (02/18/18 09) SpO2 Min: 96 % Max: 100 % Pain Score: 0/10 (02/18/18 08) Fluid Balance: Intake/Output Summary (Last 24 hours) at 02/18/18 0659 Last data filed at 02/18/18 0600 Gross per 24 hour Intake 720 ml Output 905 ml Net -185 ml Last Weight: (!) 142.2 kg (313 lb 7.9 oz) (02/18/18 0500) Admit Weight: (!) 141.8 kg (312 lb 9.8 oz) (02/11/18 0600) DIET HEART HEALTHY Lines, Drains, and Airways Line Peripheral 02/16/18 1109 Midline Right Arm #4 [place] 1 day Drain External Urinary Drain 02/12/18 0205 Assessment 6 days Chest Tube 02/13/18 1500 Left Pleural Tube #1 4 days Vent/Oxygen: Supplemental Oxygen: 2l NC %FIO2 Min: 40 Max: 40 Physical Examination Performed Oral Mucosa: Moist mucous membranes Eyes: PERRL Neck: No adenopathy or JVD Cardiovascular: S1-S2, Regular tachycardia; no murmur gallops or rales Respiratory: Clear to Auscultation Abdomen: Soft, non-tender, non-distended Extremities: Edema- Yes Peripheral Pulses- Present all extremities Skin: Abnormalities / Breakdown- Please see engineering drawings checker Neurologic: Awake, oriented, Alert, Follows commands and Moving all extremities Infusion Medications Diagnostic tests reviewed today: Most recent labs and imaging results. PATIENT CHECKLIST ? Are restraints necessary: No ? Deep vein thrombosis prophylaxis administered? Yes ? Stress ulcer prophylaxis? No, not indicated. ? Nasogastric tube? No ? Goldstein catheter necessary? No ? Is central line essential? No ? Plan discussed with assigned RN? Yes ? Family updated within last 24 hours? Yes CARE COORDINATION: Patient Summary: 67 yo female with a h/o CHF, A fib, HTN, COPD, endometrial cancer who was transferred to [facility] MICU from OSH on 02/11 for further management of acute hypoxic respiratory failure secondary to L hemothorax and AFib RVR. Course c/b EKATERINA in setting of over diuresis. Major Interval Events: 02/11: Reuqired BIPAP most of the day for WOB. Bedside US with mod-large L pleural effusion, possibly loculated. Net negative 1.2L, bump in SCr to 1.4. 02/12: Afebrile. Maintained on ~8 hours of BiPAP overnight - currently on 2L NC. A left sided thoracentesis performed yesterday (1.8L extracted, appears to be exudate). CTS prefers to have pigtail placed in IR - scheduled for today. This morning, slightly hypotensive and scheduled Metoprolol was held. 02/13: Overnight, HR ~130s - AFib. After not responding to fluids, pt given Amiodarone bolus and drip. Drip was held an hour after being started. Now, restarting drip to assist with rate control - given HR still ~130s on Cardizem and Metoprolol PO 02/15: HR >120. Intermittent hypotension requiring IVF. C/o vague diffuse chest pain, that resolves with BIPAP. Otherwise, only requiring 2L NC. 375 output from chest tube/24H. 02/16: Remains in AFib RVR with HR 120's. Chest tube with 150 cc/24H. LE DVT US negative yesterday, unable to obtain CT PE d/t lack of required IV access. 02/17: No acute events overnight; A-line placed initially for low BP but found to be at baseline; remains tachycardic; CT PE Negative 02/18: No acute events overnight; remains afebrile, tachycardia improved with metoprolol adjustment; CT with ~40ml last 24 hrs Plan for the Day: - Supplemental O2/BIPAP as needed - Pigtail catheter removal per CTS recommendation - PT/OT, OOB as tolerated Disposition - To RNF on GI - Plan discussed with Staff ASSESSMENT AND PLAN Overview, Assessment AND Plan, all Hosp Problems Active Hospital Problems as of 02/18/2018 Noted - Resolved Hospital EKATERINA (acute kidney injury) ([facility]) 02/12/2018 - Present Current Assessment AND Plan Assessment: Nonoliguric EKATERINA in setting of diuresis, poor PO intake. Baseline SCr 1.00 PLAN: - Strict IANDO's. Monitor BMP. Atrial fibrillation ([facility]) 02/11/2018 - Present Current Assessment AND Plan Assessment: Home meds: diltiazem, metop. Previously on Xarelto which was held d/t vaginal bleeding. Was scheduled for ablation as OP prior to admission. PLAN: - Appreciate cardiology following - Continue PO amio - Continue metop q 6 hours - Holding dilt d/t reduced EF 20% COPD (chronic obstructive pulmonary disease) ([facility]) 02/11/2018 - Present Current Assessment AND Plan Assessment: On 2L home O2 PLAN: - On home level of oxygen Endometrial cancer, grade I ([facility]) 01/17/2015 - Present Current Assessment AND Plan Assessment: S/p TAHBSO 2014 c/b recent vaginal bleeding on Xarelto that resolved with antibiotics and discontinuation of anticoagulation PLAN: - [employer] CONSULTANT curb-sided on this admission with recommendations for OP follow up. Hemothorax on left 02/15/2018 - Present Current Assessment AND Plan PLAN: See plan for respiratory failure HTN (hypertension) Unknown - Present Current Assessment AND Plan Assessment: Home meds: diltiazem, metop, lisinopril PLAN: - Continue metoprolol- adjusted to b5ivurc for HR control - Holding home lisinopril d/t EKATERINA - Holding dilt d/t reduced EF Obesity, Class III, BMI >= 40 02/11/2018 - Present * (Principal)Respiratory failure ([facility]) 02/12/2018 - Present Current Assessment AND Plan Assessment: Secondary to L hemothorax (s/p thora 02/12 with hct 33.9) s/p 14F pigtail cath placed by IR on 02/13. Resolved. PLAN: - Supplemental O2 as needed - Thoracic surgery following - Remove Left Chest Tube - Monitor CXR daily at 4am - BPH Medication and Non-Pharmacologic VTE Prophylaxis/Anticoagulants Anticoagulant AND Antiplatelet Medications Start Dose Route Frequency Ordered Stop 02/14/18 1400 heparin 5,000 Units injection 5,000 Units SUBCUTANEOUS EVERY 8 HOURS 02/14/18 0710 -- 02/11/18 0245 pneumatic compression stockings ([place]) 02/11/18 0245 activity - mobilize patient ([place], [place]) VTE Prophylaxis: VTE prophylaxis appropriate Plan of care discussed with: Patient, ICU Team and RN SIGNATURE: Devin Jiménez PA-C PATIENT NAME: Alba Flores DATE: February 18, 2018 TIME: 10:13 AM PAGER/CONTACT #: [phone] Attending Note I have personally performed a face to face assessment of the patient and?have reviewed the PA/NETWORK CONTROL TECHNICIAN note.?My arceo findings include: Assessment/Plan are ? IMPRESSION:?67 year old F with history of CHF, atrial fibrillation, COPD, and endometrial cancer presented to the MICU on 02/11 with acute hypoxic respiratory failure in the setting of large L pleural effusion. Pleural effusion was hemothorax s/p pigtail placement with improvement of respiratory failure, however developed atrial fibrillation with RVR. ? Problem List: Acute hypoxic respiratory failure Hemothorax Atrial fibrillation with RVR CHF COPD Endometrial cancer EKATERINA Atrial fibrillation ? PLAN:? Awake, alert, oriented Hemothorax, remove pigtail this AM per thoracic surgery, cytology neg for malignancy; CTA neg for PE Hemodynamically stable Atrial fibrillation, on metoprolol EKATERINA, resolving Advance diet Able to transfer to the floor ? Patient/Family Updated:?Patient, Alba Flores,?updated?regarding?the?goals of care,??medical plan for the day, presales consultant recommendations, medical disposition and current medical condition/prognosis as and if clinically indicated. All questions and concerns were answered and addressed at this juncture. ? Other additions or changes: None ? Signature: Nivia Pimentel MD Date: 02/18/2018 Time: 12:45 PM CONSULT PROG Observed: 02/18/2018 Status: COMPLETED Source: [place] 7:[address] [facility] REPOSITORY HNO ID: [id number] Author: Becki Gonzalez Service: Thoracic Surgery Author Type: Resident Type: Consult Progress Note Filed: 02/18/2018 9:54 AM Note Text: [facility] THORAC[facility] SURGERY CONSULT PROGRESS NOTE Alba Flores [id number] PRIMARY SERVICE: HOSPITAL DAY: # 7 INTERVAL HISTORY NAEs overnight. Apyrexial. Remains persistently tachycardic (CT PE negative). L chest pigtail 40cc. No air leak. On suction. PHYSICAL EXAM BP 98/55 Pulse 113 Temp 36.4 ?C (97.5 ?F) (Axillary) Resp 16 Ht 160 cm (5' 2.99) Wt (!) 142.2 kg (313 lb 7.9 oz) SpO2 96% BMI 55.55 kg/m? Intake/Output Summary (Last 24 hours) at 02/18/18 0711 Last data filed at 02/18/18 0700 Gross per 24 hour Intake 720 ml Output 905 ml Net -185 ml Constitutional: alert, oriented and comfortable at rest. Resp: sats 97% on CPAP. Cardiovascular: HDS GI: soft, non-tender. DATA Recent Labs 02/17/18 2305 02/16/18 2330 02/15/18 2229 WBC 9.72 10.36 9.51 HB 10.4* 10.7* 10.7* HCT 33.5* 35.5* 34.1* PLT 201 187 188 Recent Labs 02/17/18 2305 02/16/18 2330 02/15/18 2229 NA 138 140 137 K 3.7 4.0 3.7 CO2 32* 32* 30 BUN 19 18 24* CREAT 1.17* 1.19* 1.34* GLUC 101* 95 138* MG 1.8 2.1 1.9 IMAGING I personally reviewed: CXR ASSESSMENT AND PLAN 67 yo female with CHF, A fib, COPD, CKD, super morbid obesity (BMI 54), hx of endometrial cancer who was transferred to [facility] MICU from OSH on 02/11 for further management of Afib with RVR, acute hypoxic respiratory failure and?L pleural effusion (bloody, pH 7.47, albumin 3.1, Cx: negative). ? - Remove L pigtail - Post removal chest XR - Aggressive bronchopulmonary hygiene, incentive spirometry - Discussed with the staff. ? Becki Gonzalez MD Pager [phone] 02/17/2018 8:30 AM XR CHEST 1V FRONTAL Observed: 02/18/2018 Status: F Source: [facility] 4:39 AM [facility] REPOSITORY * * *Final Report* * * DATE OF EXAM: Feb 18 2018 4:39AM ROSY [id number] - XR CHEST 1V FRONTAL PORT / PROCEDURE REASON: Pleural effusion * * * * Physician Interpretation * * * * CHEST RADIOGRAPH (PORTABLE SINGLE VIEW AP) Exam Date/Time: 02/18/2018 4:39 AM Indications: Pleural effusion MQ: XCPMC_5 Comparison: 1 day earlier RESULTS: See Impression. IMPRESSION: Lines, Tubes, and Devices: Stable left basilar pigtail drainage catheter. Lungs and Pleura: Bilateral effusions and overlying opacity not significantly changed. No pneumothorax. Cardiomediastinal silhouette: Stable cardiac silhouette. Acid Mixer: MYLA Transcribe Date/Time: Feb 18 2018 9:37A Dictated by : BARNEY HOGAN MD This examination was interpreted and the report reviewed and electronically signed by: BARNEY HOAGN MD on Feb 18 2018 9:38AM EST [id number] CBC Collected: 02/17/2018 Status: F Source: [place] 11:05 PM [facility] REPOSITORY TYPE CODE TESTS RESULT OUT OF REFERENCE UNITS RANGE LAB WBC 3.70-11.00 k/uL WBC 9.72 LAB RBC 3.90-5.20 m/uL Low RBC 3.64 LAB HGB 11.5-15.5 g/dL Low Hemoglobin 10.4 LAB HCT 36.0-46.0 % Low Hematocrit 33.5 LAB MCV 80.0-100.0 fL MCV 92.0 LAB MCH 26.0-34.0 pG MCH 28.6 LAB MCHC 30.5-36.0 g/dL MCHC 31.0 LAB RDWCV 11.5-15.0 % RDW-CV 13.3 LAB PLTCT 150-400 k/uL Platelet Count 201 LAB MPV 9.0-12.7 fL MPV 10.6 LAB ABSNUC <0.01 k/uL Absolute nRBC <0.01 Performed By: #### CBC, BMP, MG1, PHOS #### [facility] [address] [place] [id number] BASIC METABOLIC PANL Collected: 02/17/2018 Status: F Source: [place] 11:[address] [facility] REPOSITORY TYPE CODE TESTS RESULT OUT OF REFERENCE UNITS RANGE LAB GLU 74-99 mg/dL High Glucose 101 Result Comment: The [place] Diabetes Association (ADA) provides guidance for cutoff values for fasting glucose and random glucose. The ADA defines fasting as no caloric intake for at least 8 hours. Fas ting plasma glucose results between 100 to 125 mg/dL indicate increased risk for diabetes (prediabetes). Fasting plasma glucose results greater than or equal to 126 mg/dL meet the criteria for diagnosis of diabetes. In the absence of unequivocal hyperglycemia, results should be confirmed by repeat testing. In a patient with classic symptoms of hyperglycemia or hyperglycemic crisis, random plasma glucose results greater than or equal to 200 mg/dL meet the criteria for diagnosis of diabetes. Reference: Standards of Medical Care in Diabetes 2016, [place] Diabetes Association. Diabetes Care. 2016.39(Suppl 1). LAB BUN 7-21 mg/dL BUN 19 LAB CRET 0.58-0.96 mg/dL Creatinine High 1.17 LAB NA 136-144 mmol/L Sodium 138 LAB K 3.7-5.1 mmol/L Potassium 3.7 LAB CL 97-105 mmol/L Chloride 98 LAB CO2 22-30 mmol/L CO2 High 32 LAB AGAP 9-18 mmol/L Low Anion Gap 8 LAB CA 8.5-10.2 mg/dL Calcium, Total 8.6 LAB GFRAA eGFR- Amer. 55 LAB GFRNAA . eGFR-All Other Races 46 Result Comment: eGFR (Estimated GFR) Units of measure: mL/min/1.73 meters squared eGFR is derived from the reexpressed MDRD Study equation using the following parameters: serum creatinine, age, gender and race. The creatinine assay has been calibrated to be traceable to IDMS. An eGFR <60 mL/min/1.73m2 for >3 months is consistent with chronic kidney disease. Refer to KDOQI guidelines for clinical interpretation. In patients with unstable renal function, e.g. those with acute kidney injury, the eGFR may not accurately reflect actual GFR. Performed By: #### CBC, BMP, MG1, PHOS #### [facility] [address] [place], [place] [address] MAGNESIUM Collected: 02/17/2018 Status: F Source: [place] 11:05 PM [facility] REPOSITORY TYPE CODE TESTS RESULT OUT OF REFERENCE UNITS RANGE LAB MG 1.7-2.3 mg/dL Magnesium 1.8 Performed By: #### CBC, BMP, MG1, PHOS #### [facility] [address] [place] [id number] PHOSPHORUS Collected: 02/17/2018 Status: F Source: [place] 11:05 PM [facility] REPOSITORY TYPE CODE TESTS RESULT OUT OF REFERENCE UNITS RANGE LAB PHOS 2.7-4.8 mg/dL Phosphorus 3.3 Performed By: #### CBC, BMP, MG1, PHOS #### [facility] [address] [place], [place] [address] NURSING PROG Observed: 02/17/2018 Status: COMPLETED Source: [place] 6:10 PM [facility] REPOSITORY HNO ID: [id number] Author: Ana Brunner RN Service: (none) Author Type: Registered Nurse Type: Nursing Progress Note Filed: 02/17/2018 6:16 PM Note Text: Nursing Progress Note Patient Name: Alba Flores Patient Location: [place] [id number]: Patient c/o pain to R forearm, r/t previous IV infusion. IV catheter had been removed prior to my shift. Redness and firm edema noted, outlined area to monitor. Applied warm pack, will continue to monitor. 1700: Warm packs have helped decrease discomfort level today. Patient requested to remove warm pack at this time. 1745: Patient states pain has returned, applied new warm pack and administered acetaminophen per order. Will continue to monitor. This note was completed by: Ana Brunner RN PROGRESS Observed: 02/17/2018 Status: COMPLETED Source: [place] 11:52 AM [facility] REPOSITORY HNO ID: [id number] Author: Nivia Pimentel Service: Critical Care Author Type: Physician Type: Progress Notes Filed: 02/17/2018 12:20 PM Note Text: SERVICE DATE: 02/17/2018 SERVICE TIME: 11:52 AM MICU PROGRESS NOTE Admission Date: 02/11/2018 Hospital Day # 6 HPI SUBJECTIVE Interval Events: Improved OBJECTIVE Vital Signs (last filed) Range in last 24h Temp: 36.8 ?C (98.2 ?F) (02/17/18 0800) Temp Min: 36.5 ?C (97.7 ?F) Max: 36.9 ?C (98.4 ?F) Pulse: 100 (02/17/18 1130) Pulse Min: 97 Max: 130 Resp: 22 (02/17/18 1130) Resp Min: 16 Max: 43 BP: 107/53 (02/17/18 1130) BP Min: 71/50 Max: 118/55 MAP Non Invasive (Mean Arterial Pressure): 71 (02/17/18 1130) MAP Non Invasive (Mean Arterial Pressure) Min: 54 Max: 80 Arterial BP 1: 115/83 (02/17/18 1000) Arterial BP 1 Min: 81/52 Max: 115/83 SpO2: 97 % (02/17/18 1130) SpO2 Min: 95 % Max: 99 % Pain Score: 0/10 (02/17/18 0800) Fluid Balance: Intake/Output Summary (Last 24 hours) at 02/17/18 0659 Last data filed at 02/17/18 0600 Gross per 24 hour Intake 1784.6 ml Output 920 ml Net 864.6 ml Last Weight: (!) 142.5 kg (314 lb 2.5 oz) (02/17/18 0000) Admit Weight: (!) 141.8 kg (312 lb 9.8 oz) (02/11/18 0600) DIET HEART HEALTHY Lines, Drains, and Airways Line Peripheral 02/16/18 1109 Midline Right Arm 18 Gauge 1 day Drain External Urinary Drain 02/12/18 0205 Assessment 5 days Chest Tube 02/13/18 1500 Left Pleural Tube #1 3 days Vent/Oxygen: Supplemental Oxygen: Yes. 2l NC No Data Recorded Physical Examination Performed Oral Mucosa: Moist mucous membranes Eyes: PERRL Neck: No JVD Cardiovascular: S1-S2, RRR, no murmur gallop or rub Respiratory: Clear to auscultation b/l Abdomen: Soft, non-tender, non-distended, normoactive bowel sounds Extremities: Edema- Yes Peripheral Pulses- Present all extremities Skin: Abnormalities / Breakdown- Please see engineering drawings checker Neurologic: Awake, oriented, Alert, Follows commands and Moving all extremities Infusion Medications Diagnostic tests reviewed today: Most recent labs and imaging results. PATIENT CHECKLIST ? Are restraints necessary: No ? Deep vein thrombosis prophylaxis administered? Yes ? Stress ulcer prophylaxis? No, not indicated. ? Nasogastric tube? No ? Goldstein catheter necessary? No ? Is central line essential? No ? Plan discussed with assigned RN? Yes ? Family updated within last 24 hours? Yes CARE COORDINATION: Patient Summary: 67 yo female with a h/o CHF, A fib, HTN, COPD, endometrial cancer who was transferred to [facility] MICU from OSH on 02/11 for further management of acute hypoxic respiratory failure secondary to L hemothorax and AFib RVR. Course c/b EKATERINA in setting of over diuresis. Major Interval Events: 02/11: Reuqired BIPAP most of the day for WOB. Bedside US with mod-large L pleural effusion, possibly loculated. Net negative 1.2L, bump in SCr to 1.4. 02/12: Afebrile. Maintained on ~8 hours of BiPAP overnight - currently on 2L NC. A left sided thoracentesis performed yesterday (1.8L extracted, appears to be exudate). CTS prefers to have pigtail placed in IR - scheduled for today. This morning, slightly hypotensive and scheduled Metoprolol was held. 02/13: Overnight, HR ~130s - AFib. After not responding to fluids, pt given Amiodarone bolus and drip. Drip was held an hour after being started. Now, restarting drip to assist with rate control - given HR still ~130s on Cardizem and Metoprolol PO 02/15: HR >120. Intermittent hypotension requiring IVF. C/o vague diffuse chest pain, that resolves with BIPAP. Otherwise, only requiring 2L NC. 375 output from chest tube/24H. 02/16: Remains in AFib RVR with HR 120's. Chest tube with 150 cc/24H. LE DVT US negative yesterday, unable to obtain CT PE d/t lack of required IV access. 02/17: No acute events overnight; A-line placed initially for low BP but found to be at baseline; remains tachycardic; CT PE Negative Plan for the Day: - Supplemental O2/BIPAP as needed - Pigtail catheter to water seal, monitor output and CXR - Cardiology for persistent AFib - continues on PO metoprolol and amiodarone - Holding diuresis, reassess daily. - PT/OT, OOB as tolerated Disposition - Remains in MICU - Plan discussed with Staff ASSESSMENT AND PLAN Overview, Assessment AND Plan, all Hosp Problems Active Hospital Problems as of 02/17/2018 Noted - Resolved Hospital EKATERINA (acute kidney injury) ([facility]) 02/12/2018 - Present Current Assessment AND Plan Assessment: Nonoliguric EKATERINA in setting of diuresis, poor PO intake. Baseline SCr 1.00 PLAN: - Strict IANDO's. Monitor BMP. Atrial fibrillation ([facility]) 02/11/2018 - Present Current Assessment AND Plan Assessment: Home meds: diltiazem, metop. Previously on Xarelto which was held d/t vaginal bleeding. Was scheduled for ablation as OP prior to admission. PLAN: - Appreciate cardiology following - Continue PO amio - Continue metop q 6 hours - Holding dilt d/t reduced EF 20% - Holding therapeutic AC d/t hemothorax COPD (chronic obstructive pulmonary disease) ([facility]) 02/11/2018 - Present Current Assessment AND Plan Assessment: On 2L home O2 PLAN: - Supplemental O2/BIPAP as needed Endometrial cancer, grade I ([facility]) 01/17/2015 - Present Current Assessment AND Plan Assessment: S/p TAHBSO 2014 c/b recent vaginal bleeding on Xarelto that resolved with antibiotics and discontinuation of anticoagulation PLAN: - [employer]SULTANT curb-sided on this admission with recommendations for OP follow up. Hemothorax on left 02/15/2018 - Present Current Assessment AND Plan PLAN: See plan for respiratory failure HTN (hypertension) Unknown - Present Current Assessment AND Plan Assessment: Home meds: diltiazem, metop, lisinopril PLAN: - Continue metoprolol- adjusted to [id number] for HR control - Holding home lisinopril d/t EKATERINA - Holding dilt d/t reduced EF Obesity, Class III, BMI >= 40 02/11/2018 - Present * (Principal)Respiratory failure (HCC) 02/12/2018 - Present Current Assessment AND Plan Assessment: Secondary to L hemothorax (s/p thora 02/12 with hct 33.9) s/p 14F pigtail cath placed by IR on 02/13. PLAN: - Supplemental O2 as needed - Thoracic surgery following - Chest tube to water seal - Monitor CXR daily at 4am - BPH - Assess daily for diuresis Medication and Non-Pharmacologic VTE Prophylaxis/Anticoagulants Anticoagulant AND Antiplatelet Medications Start Dose Route Frequency Ordered Stop 02/14/18 1400 heparin 5,000 Units injection 5,000 Units SUBCUTANEOUS EVERY 8 HOURS 02/14/18 0710 -- 02/11/18 0245 pneumatic compression stockings ([place], [place]) 02/11/18 0245 activity - mobilize patient ([place], [place]) VTE Prophylaxis: VTE prophylaxis appropriate Plan of care discussed with: Patient, ICU Team and RN SIGNATURE: Devin Jiménez PA-C PATIENT NAME: Alba Flores DATE: February 17, 2018 TIME: 11:52 AM PAGER/CONTACT #: [phone] Attending Note I have personally performed a face to face assessment of the patient and have reviewed the PA/NETWORK CONTROL TECHNICIAN note. My arceo findings include: Assessment/Plan are IMPRESSION: 67 year old F with history of CHF, atrial fibrillation, COPD, and endometrial cancer presented to the MICU on 02/11 with acute hypoxic respiratory failure in the setting of large L pleural effusion. Pleural effusion was hemothorax s/p pigtail placement with improvement of respiratory failure, however developed atrial fibrillation with RVR. ? Problem List: Acute hypoxic respiratory failure Hemothorax Atrial fibrillation with RVR CHF COPD Endometrial cancer EKATERINA Atrial fibrillation PLAN: Awake, alert, oriented Hemothorax, pigtail in place, cytology neg for malignancy, chest tube on water seal; CTA neg for PE Hemodynamically stable, d/c arterial line Atrial fibrillation, increase metoprolol EKATERINA, resolving Advance diet MICU ppx Reevaluate patient in the afternoon to determine if atrial fibrillation better controlled and able to transfer to the floor Patient/Family Updated: Patient, Alba Flores, updated regarding the goals of care,? medical plan for the day, presales consultant recommendations, medical disposition and current medical condition/prognosis as and if clinically indicated. All questions and concerns were answered and addressed at this juncture. ? This patient has a high probability of sudden, clinically significant deterioration, which requires the highest level of physician preparedness to intervene urgently. I managed/supervised life or organ supporting interventions that required frequent physician assessment. I devoted my full attention to the direct care of this patient for the amount of time indicated below. Time I spent with family or surrogate(s) is included only if the patient was incapable of providing the necessary information or participating in medical decision making. Time devoted to teaching and to any procedures I billed separately is not included. ? Critical Care Documentation: The patient has the following organ/system impairment(s): Arrhythmias ? Time spent providing critical care services: 30 minutes. Other additions or changes: None Signature: Nivia Pimentel MD Date: 02/17/2018 Time: 12:20 PM NUTRITION Observed: 02/17/2018 Status: COMPLETED Source: [place] 10:30 AM [facility] REPOSITORY O ID: [id number] Author: Yolie Schwab (Diet-T) Erika Service: Nutrition Therapy Author Type: Bar Manager Type: Nutrition Filed: 02/17/2018 10:31 AM Note Text: NUTRITION THERAPY FOLLOW-UP NOTE SERVICE DATE: 02/17/2018 SERVICE TIME: 914 Anthropometrics: Height: 160 cm (5' 3) Current Weight: Weight: (!) 142.5 kg (314 lb 2.5 oz) Body mass index is 55.65 kg/m?. Loss of lean body mass/visual muscle wasting: no Admitting Diagnosis: A-fib Present Diet Order: Heart Healthy 2 gm Na Is the patient having any pain that is interfering with oral/enteral intake? No Allergies: ALLERGIES Allergen Reactions - Asa [Aspirin] GI Upset Reason for Visit: Nutrition screen: LOS > 6 days Food preferences: Patient dislikes waffles, would prefer eggs for breakfast. Nutrient intake assessment: Current intake of meals: 75 - 100% Patient concerns/Issues: Patient denies pain, nausea or difficulties chewing or swallowing. States she dislikes the food. Reports intentional weight loss prior to admission, with starting weight at 360 pounds. Very pleased with weight loss Nursing Admission Assessment Malnutrition Score Tool: 0 Plan of Care: Recommendation Continue to monitor weekly Discharge Plan: Home on Heart Healthy 2 gram Sodium Diet. MNT Billing Type: Routine Care/15 min 1 unit SIGNATURE: Yolie Josselin Basic, DTR PATIENT NAME: Alba Flores DATE: February 17, 2018 TIME: 10:30 AM PAGER: [phone] CONSULT PROG Observed: 02/17/2018 Status: COMPLETED Source: [place] 8:29 AM [facility] REPOSITORY HNO ID: [id number] Author: Janina Izquierdo Service: Thoracic Surgery Author Type: Physician Type: Consult Progress Note Filed: 02/17/2018 11:36 AM Note Text: [facility] THORACIC SURGERY CONSULT PROGRESS NOTE Alba Flores [id number] PRIMARY SERVICE: HOSPITAL DAY: # 6 INTERVAL HISTORY NAEs overnight. CT chest: partially loculated left pleural effusion. No PE. L chest pigtail 20cc overnight. No air leak. On suction. HDS PHYSICAL EXAM BP 102/77 Pulse (!) 127 Temp 36.8 ?C (98.2 ?F) (Oral) Resp 19 Ht 160 cm (5' 3) Wt (!) 142.5 kg (314 lb 2.5 oz) SpO2 98% BMI 55.65 kg/m? Intake/Output Summary (Last 24 hours) at 02/17/18 0830 Last data filed at 02/17/18 0600 Gross per 24 hour Intake 1544.6 ml Output 920 ml Net 624.6 ml Constitutional: alert, oriented and comfortable at rest. Resp: sats 97% on CPAP. Cardiovascular: HDS GI: soft. DATA Recent Labs 02/16/18 2330 02/15/18 2229 02/14/18 2342 WBC 10.36 9.51 13.50* HB 10.7* 10.7* 11.7 HCT 35.5* 34.1* 37.7 PLT 187 188 213 Recent Labs 02/16/18 2330 02/15/18 2229 02/14/18 2342 NA 140 137 138 K 4.0 3.7 4.2 CO2 32* 30 30 BUN 18 24* 20 CREAT 1.19* 1.34* 1.24* GLUC 95 138* 136* MG 2.1 1.9 1.8 IMAGING I personally reviewed: CT ASSESSMENT AND PLAN 67 yo female with CHF, A fib, COPD, CKD, super morbid obesity (BMI 54), hx of endometrial cancer who was transferred to [facility] MICU from OSH on 02/11 for further management of Afib with RVR, acute hypoxic respiratory failure and?L pleural effusion. - Maintain L pigtail to suction for now, daily chest XR at 4 AM - Aggressive bronchopulmonary hygiene, incentive spirometry - Will discuss with the staff. Becki Gonzalez MD Pager [phone] 02/17/2018 8:30 AM [facility] STAFF PHYSICIAN NOTE OF PERSONAL INVOLVEMENT IN CARE IMPRESSION: Patient is a 67 year old female with morbid obesity and pig tail drain placement for complicated pleural effusion. I have reviewed the CCT scan and there is a small amount of undrained fluid but the pig-tail may be partially dislodged, making TPA digestion higher risk and less effective. We are awaiting Cx from the fluid to help guide our next intervention, if any, given the location of the pig-tail PLAN: See above I have reviewed the documentation obtained and documented by the Resident and have reviewed and updated the problem list as appropriate. I have personally performed a face to face assessment of the patient and have personally participated in the arceo components. I have discussed the case and management of the patient's care. Counseling (Inpatient): I personally spent 20 total minutes involved in the care of this patient. Greater than 50% of the time was spent counseling and/or coordinating care for the patient, the nature of which is noted above. STAFF PHYSICIAN: Janina Izquierdo MD, PhD DATE OF SERVICE: February 17, 2018 TIME OF SERVICE: 11:30 AM XR CHEST 1V FRONTAL Observed: 02/17/2018 Status: F Source: [facility] 7:19 AM [facility] REPOSITORY * * *Final Report* * * DATE OF EXAM: Feb 17 2018 7:19AM ROSY [id number] - XR CHEST 1V FRONTAL PORT / PROCEDURE REASON: Pleural effusion * * * * Physician Interpretation * * * * EXAMINATION: CHEST RADIOGRAPH (PORTABLE SINGLE VIEW AP) Exam Date/Time: 02/17/2018 7:19 AM Clinical History: Pleural effusion, MQ: XCPMC_5 Comparison: 1 day prior RESULT: See impression. IMPRESSION: Lines, tubes, and devices: Percutaneous left pleural drainage catheter remains in place. Lungs and pleura: There are bibasilar airspace opacities, left worse than right. Small bilateral pleural effusions are present. There is no pneumothorax. Cardiomediastinal silhouette: Stable cardiomediastinal silhouette. The cardiac silhouette appears enlarged. Other: There is subcutaneous emphysema in the left thoracoabdominal wall. Acid Mixer: PSCB Transcribe Date/Time: Feb 17 2018 12:26P Dictated by : MAURILIO CHANDLER MD This examination was interpreted and the report reviewed and electronically signed by: MAURILIO CHANDLER MD on Feb 17 2018 12:26PM EST [id number] CBC Collected: 02/16/2018 Status: F Source: [place] 11:30 PM [facility] REPOSITORY TYPE CODE TESTS RESULT OUT OF REFERENCE UNITS RANGE LAB WBC 3.70-11.00 k/uL WBC 10.36 LAB RBC 3.90-5.20 m/uL Low RBC 3.80 LAB HGB 11.5-15.5 g/dL Low Hemoglobin 10.7 LAB HCT 36.0-46.0 % Low Hematocrit 35.5 LAB MCV 80.0-100.0 fL MCV 93.4 LAB MCH 26.0-34.0 pG MCH 28.2 LAB MCHC 30.5-36.0 g/dL Low MCHC 30.1 LAB RDWCV 11.5-15.0 % RDW-CV 13.4 LAB PLTCT 150-400 k/uL Platelet Count 187 LAB MPV 9.0-12.7 fL MPV 10.4 LAB ABSNUC <0.01 k/uL Absolute nRBC <0.01 Performed By: #### CBC, MG1, PHOS #### [facility] [address] [place] [address] MAGNESIUM Collected: 02/16/2018 Status: F Source: [place] 11:30 PM [facility] REPOSITORY TYPE CODE TESTS RESULT OUT OF REFERENCE UNITS RANGE LAB MG 1.7-2.3 mg/dL Magnesium 2.1 Performed By: #### CBC, MG1, PHOS #### [facility] [address] [place] [address] PHOSPHORUS Collected: 02/16/2018 Status: F Source: [place] 11:30 PM [facility] REPOSITORY TYPE CODE TESTS RESULT OUT OF REFERENCE UNITS RANGE LAB PHOS 2.7-4.8 mg/dL Phosphorus 2.7 Performed By: #### CBC, MG1, PHOS #### [facility] [address] [place], [place] [address] BASIC METABOLIC PANL Collected: 02/16/2018 Status: F Source: [place] 11:[address] [facility] REPOSITORY TYPE CODE TESTS RESULT OUT OF REFERENCE UNITS RANGE LAB GLU 74-99 mg/dL Glucose 95 Result Comment: The [place] Diabetes Association (ADA) provides guidance for cutoff values for fasting glucose and random glucose. The ADA defines fasting as no caloric intake for at least 8 hours. Fas ting plasma glucose results between 100 to 125 mg/dL indicate increased risk for diabetes (prediabetes). Fasting plasma glucose results greater than or equal to 126 mg/dL meet the criteria for diagnosis of diabetes. In the absence of unequivocal hyperglycemia, results should be confirmed by repeat testing. In a patient with classic symptoms of hyperglycemia or hyperglycemic crisis, random plasma glucose results greater than or equal to 200 mg/dL meet the criteria for diagnosis of diabetes. Reference: Standards of Medical Care in Diabetes 2016, [place] Diabetes Association. Diabetes Care. 2016.39(Suppl 1). LAB BUN 7-21 mg/dL BUN 18 LAB CRET 0.58-0.96 mg/dL Creatinine High 1.19 LAB NA 136-144 mmol/L Sodium 140 LAB K 3.7-5.1 mmol/L Potassium 4.0 LAB CL 97-105 mmol/L Chloride 99 LAB CO2 22-30 mmol/L CO2 High 32 LAB AGAP 9-18 mmol/L Anion Gap 9 LAB CA 8.5-10.2 mg/dL Calcium, Total 8.6 LAB GFRAA eGFR- Amer. 54 LAB GFRNAA . eGFR-All Other Races 45 Result Comment: eGFR (Estimated GFR) Units of measure: mL/min/1.73 meters squared eGFR is derived from the reexpressed MDRD Study equation using the following parameters: serum creatinine, age, gender and race. The creatinine assay has been calibrated to be traceable to IDMS. An eGFR <60 mL/min/1.73m2 for >3 months is consistent with chronic kidney disease. Refer to KDOQI guidelines for clinical interpretation. In patients with unstable renal function, e.g. those with acute kidney injury, the eGFR may not accurately reflect actual GFR. Performed By: #### BMP #### [facility] [address] [place], [place] [address] PROCEDURE Observed: 02/16/2018 Status: COMPLETED Source: [place] 10:42 PM [facility] REPOSITORY HNO ID: [id number] Author: Kwasi Mariano Service: Critical Care Author Type: Physician Type: Procedures Filed: 02/17/2018 12:46 AM Note Text: BEDSIDE PROCEDURE NOTE PROCEDURE DATE: February 16, 2018 PROCEDURE START TIME: 10:30 PM PRIMARY PROCEDURALIST: Nate Torres DO SENIOR SOFTWARE ENGINEERING MANAGER(S): None INFORMED CONSENT: Informed Consent obtained and on the chart UNIVERSAL PROTOCOL / SAFETY CHECKLIST Sign in Communication: Completed Time Out: Team Confirms the Correct Patient, Correct Procedure, Correct Site and Site Marking, Correct Position (if applicable), Prep and Dry Time (if applicable). Time: 10:30 PM Affirmation of Time Out: YES Sign Out Discussion: Completed PROCEDURE: ARTERIAL CATHETER INSERTION Line/Indication: Single lumen for Monitoring of vital bodily functions (BP, pH, paO2, paCO2) Anesthesia/Sedation: Local; lidocaine 2% Insertion Site: Left radial arteryArea Prep: Chlorhexidine gluconate Technique Used to Place Line: Modified Seldinger Ultrasound was used to visualize a patent artery prior to the start of the procedure. The vessel was cannulated under direct ultrasound visualization with a 20 gauge catheter on the second attempt. A straight- tipped spring wire was passed into the artery through the indwelling catheter and left in situ while the catheter was advanced. The catheter was left in situ while the guidewire was removed. Pulsatile blood flow exited the catheter and an arterial waveform was noted on the monitor when the catheter was transduced. The catheter was secured in place with sterile sutures. A sterile dressing was applied and dated. All catheters, needles and/or wires were accounted for and intact: Yes. Patient tolerated procedure well. Complications: None No Specimens Collected Unless Noted Here Estimated Blood Loss: None SIGNATURE: Nate Torres DO PATIENT NAME: Alba Flores DATE: February 16, 2018 TIME: 10:42 PM PAGER/CONTACT #: [phone] I was present during the entire procedure Kwasi Mariano MD PROGRESS Observed: 02/16/2018 Status: COMPLETED Source: [place] 5:59 PM [facility] REPOSITORY HNO ID: [id number] Author: JULISSA Gay (Ct) Service: Radiology Author Type: Clinical Superintendent Nonselling Type: Progress Notes Filed: 02/16/2018 5:59 PM Note Text: Radiology Service Progress Note PATIENT NAME: Alba Flores DATE OF SERVICE: February 16, 2018 TIME: 5:59 PM PATIENT IDENTITY VERIFICATION COMPLETED USING TWO (2) METHODS: ID Band . PATIENT GENDER DATA: Female. status: : No status: NO. PATIENT RELEVANT IMPLANT DATA REVIEWED: Yes RADIOLOGY DEPARTMENT: CT; Exam(s) Completed: PE Study PERIPHERAL IV DATA: Inpatient: see LDA documentation SIGNED BY: JULISSA Gay February 16, 2018 5:[address] CHEST W IVCON PE Observed: 02/16/2018 Status: F Source: [place] 5:58 PM [facility] REPOSITORY * * *Final Report* * * DATE OF EXAM: Feb 16 2018 5:58PM [facility] [place] W IVCON PE / PROCEDURE REASON: PE suspected, high pretest prob * * * * Physician Interpretation * * * * EXAMINATION: CHEST CT WITH CONTRAST (PULMONARY EMBOLISM PROTOCOL) CLINICAL HISTORY: PE suspected, high pretest prob, Technique: Spiral CT acquisition of the chest from the thoracic inlet to the upper abdomen following IV contrast. MQ: CTCPEMC_4 Contrast: 150 mL Omnipaque [address] Dose-Length Product: 514 mGy*cm CT Dose Reduction Employed: Automated exposure control (AEC) Comparison: 02/10/2018 RESULT: Limitations: Breathing motion artifacts and background of parenchymal changes Evaluation for thromboembolic disease: - Right heart chambers: No thromboembolic disease. - Main pulmonary arteries: No thromboembolic disease. - Lobar pulmonary arteries: No thromboembolic disease. - Segmental pulmonary arteries: Limited evaluation with no definite thromboembolic disease.. - Subsegmental pulmonary arteries: Nondiagnostic evaluation in the lower lung zones. Otherwise, limited evaluation with no definite thromboembolic disease. Lines, tubes, and devices: None. Lung parenchyma and pleura: There has been decrease in size of left pleural effusion from large to small. The residual pleural effusion appears partially loculated. Improvement of associated compressive atelectasis. Tiny right pleural effusion has slightly increased in size. Increase of associated compressive atelectasis. Superimposed secondary process such as infection in the regions of atelectasis cannot BE excluded. Radiographic follow-up is recommended. Evaluation of the remaining portions of the lungs is limited by breathing motion artifacts. Mild centrilobular emphysematous changes are seen mostly in the upper lung zones. Inflammatory airway thickening is again seen in the mid to lower lungs. Superimposed peribronchial interstitial edema is not excluded. There has been development of minimal patchy groundglass clustered nodules in the left upper lobe-about image 51. These are likely inflammatory. Hemorrhagic nature is not excluded. Radiographic follow-up is recommended.. Thoracic inlet, heart, and mediastinum: The heart is within normal. Thoracic aorta is within normal in diameter. Pulmonary artery remains dilated. There is mild nonspecific thickening of the distal esophagus. There is no mediastinal or hilar adenopathy. Small and borderline mediastinal nodes remain. Thyroid is unremarkable. Central airways are patent. Bones and soft tissues: No mass, fluid collection or axillary adenopathy. There is mild generalized osteopenia. No discrete lytic or sclerotic osseous lesion. Development of soft tissue gas in the left chest wall, likely postoperative. Upper abdomen: Unchanged. IMPRESSION: NO CT EVIDENCE OF PULMONARY EMBOLISM WITHIN THE LIMITS OF THE EXAM. ADDITIONAL NONVASCULAR FINDINGS ARE DETAILED IN THE BODY OF THE REPORT.. Acid Mixer: [facility] Transcribe Date/Time: Feb 16 2018 6:24P Dictated by : BUCK ZACARIAS MD This examination was interpreted and the report reviewed and electronically signed by: BUCK ZACARIAS MD on Feb 16 2018 6:37PM EST [id number] [id number] Observed: 02/16/2018 Status: COMPLETED Source: [place] 12:10 PM [facility] REPOSITORY O ID: [id number] Author: Morgan Winter Service: Critical Care Author Type: Physician Hvac Controls Technician Type: Progress Notes Filed: 02/16/2018 12:10 PM Note Text: SERVICE DATE: 02/16/2018 SERVICE TIME: 12:10 PM MICU PROGRESS NOTE Admission Date: 02/11/2018 Hospital Day # 5 SUBJECTIVE Interval Events: No Change OBJECTIVE Vital Signs (last filed) Range in last 24h Temp: 36.5 ?C (97.7 ?F) (02/16/18 0400) Temp Min: 36.3 ?C (97.3 ?F) Max: 36.9 ?C (98.4 ?F) Pulse: 114 (02/16/18 0600) Pulse Min: 106 Max: 127 Resp: 19 (02/16/18 0600) Resp Min: 18 Max: 41 BP: 103/59 (02/16/18599) BP Min: 86/64 Max: 155/79 MAP Non Invasive (Mean Arterial Pressure): 70 (02/16/18599) MAP Non Invasive (Mean Arterial Pressure) Min: 67 Max: 114 No Data Recorded SpO2: 97 % (02/16/18599) SpO2 Min: 97 % Max: 100 % Pain Score: 7/10 (02/16/18 0957) Fluid Balance: Intake/Output Summary (Last 24 hours) at 02/16/18658 Last data filed at 02/16/18599 Gross per 24 hour Intake 1131 ml Output 1150 ml Net -19 ml Last Weight: (!) 140.9 kg (310 lb 10.1 oz) (02/16/18 0200) Admit Weight: (!) 141.8 kg (312 lb 9.8 oz) (02/11/18 06) DIET HEART HEALTHY Lines, Drains, and Airways Line Peripheral 02/13/18 0000 Right Forearm 20 Gauge 3 days Drain External Urinary Drain 02/12/18 0205 Assessment 4 days Chest Tube 02/13/18 1500 Left Pleural Tube #1 2 days Vent/Oxygen: NC Physical Examination Performed Oral Mucosa: Moist mucous membranes Eyes: PERRL Cardiovascular: Irregular rhythm Respiratory: Reduced breath sounds bilat Abdomen: Soft, Distended and Positive bowel sounds Extremities: Edema- Yes Peripheral Pulses- Present all extremities Capillary Refill- less than 3 seconds Skin: Abnormalities- Yes Breakdown- See RN do Neurologic: Awake, oriented, Alert, Follows commands and Moving all extremities Infusion Medications Diagnostic tests reviewed today: Most recent labs and imaging results. PATIENT CHECKLIST ? Are restraints necessary: No ? Deep vein thrombosis prophylaxis administered? Yes ? Stress ulcer prophylaxis? No, not indicated. ? Nasogastric tube? No ? Goldstein catheter necessary? No ? Is central line essential? No ? Plan discussed with assigned RN? Yes ? Family updated within last 24 hours? Yes CARE COORDINATION: Patient Summary: 67 yo female with a h/o CHF, A fib, HTN, COPD, endometrial cancer who was transferred to [facility] MICU from OSH on 02/11 for further management of acute hypoxic respiratory failure secondary to L hemothorax and AFib RVR. Course c/b EKATERINA in setting of over diuresis. Major Interval Events: 02/11: Reuqired BIPAP most of the day for WOB. Bedside US with mod-large L pleural effusion, possibly loculated. Net negative 1.2L, bump in SCr to 1.4. 02/12: Afebrile. Maintained on ~8 hours of BiPAP overnight - currently on 2L NC. A left sided thoracentesis performed yesterday (1.8L extracted, appears to be exudate). CTS prefers to have pigtail placed in IR - scheduled for today. This morning, slightly hypotensive and scheduled Metoprolol was held. 02/13: Overnight, HR ~130s - AFib. After not responding to fluids, pt given Amiodarone bolus and drip. Drip was held an hour after being started. Now, restarting drip to assist with rate control - given HR still ~130s on Cardizem and Metoprolol PO 02/15: HR >120. Intermittent hypotension requiring IVF. C/o vague diffuse chest pain, that resolves with BIPAP. Otherwise, only requiring 2L NC. 375 output from chest tube/24H. 02/16: Remains in AFib RVR with HR 120's. Chest tube with 150 cc/24H. LE DVT US negative yesterday, unable to obtain CT PE d/t lack of required IV access. Plan for the Day: - Supplemental O2/BIPAP as needed - Pigtail catheter to water seal, monitor output and CXR - F/u CT PE - Cardiology for persistent AFib - continues on PO metop, transition to PO amio - Holding diuresis, reassess daily. - PT/OT, OOB as tolerated - Remains in MICU - Plan discussed with staff ASSESSMENT AND PLAN Overview, Assessment AND Plan, all Hosp Problems Active Hospital Problems as of 02/16/2018 Noted - Resolved Cardiovascular HTN (hypertension) Unknown - Present Current Assessment AND Plan Assessment: Home meds: diltiazem, metop, lisinopril PLAN: - Continue metop - Holding home lisinopril d/t EKATERINA - Holding dilt d/t reduced EF Atrial fibrillation (HCC) 02/11/2018 - Present Current Assessment AND Plan Assessment: Home meds: diltiazem, metop. Previously on Xarelto which was held d/t vaginal bleeding. Was scheduled for ablation as OP prior to admission. PLAN: - Appreciate cardiology following - Transition to PO amio - Continue metop - Holding dilt d/t reduced EF 20% - Holding therapeutic AC d/t hemothorax Pulmonary COPD (chronic obstructive pulmonary disease) ([facility]) 02/11/2018 - Present Current Assessment AND Plan Assessment: On 2L home O2 PLAN: - Supplemental O2/BIPAP as needed * (Principal)Respiratory failure ([facility]) 02/12/2018 - Present Current Assessment AND Plan Assessment: Secondary to L hemothorax (s/p thora 02/12 with hct 33.9) s/p 14F pigtail cath placed by IR on 02/13. PLAN: - Supplemental O2 as needed - Thoracic surgery following - Chest tube to water seal - Monitor CXR - BPH - Assess daily for diuresis Hemothorax on left 02/15/2018 - Present Current Assessment AND Plan PLAN: See plan for respiratory failure Nephrology EKATERINA (acute kidney injury) ([facility]) 02/12/2018 - Present Current Assessment AND Plan Assessment: Nonoliguric EKATERINA in setting of diuresis, poor PO intake. Baseline SCr 1.00 PLAN: - Strict IANDO's. Monitor BMP. Oncology Endometrial cancer, grade I ([facility]) 01/17/2015 - Present Current Assessment AND Plan Assessment: S/p TAHBSO 2014 c/b recent vaginal bleeding on Xarelto that resolved with antibiotics and discontinuation of anticoagulation PLAN: - [employer] curb-sided on this admission with recommendations for OP follow up. Other Obesity, Class III, BMI >= 40 02/11/2018 - Present Medication and Non-Pharmacologic VTE Prophylaxis/Anticoagulants Anticoagulant AND Antiplatelet Medications Start Dose Route Frequency Ordered Stop 02/14/18 1400 heparin 5,000 Units injection 5,000 Units SUBCUTANEOUS EVERY 8 HOURS 02/14/18 0710 -- 02/11/18 0245 pneumatic compression stockings ([place], [place]) 02/11/18 0245 activity - mobilize patient ([place], [place]) VTE Prophylaxis: VTE prophylaxis appropriate Plan of care discussed with: ICU Team SIGNATURE: Morgan Winter PA-C PATIENT NAME: Alba Flores DATE: February 16, 2018 TIME: 12:10 PM PAGER/CONTACT #: [phone] NURSING PROG Observed: 02/16/2018 Status: COMPLETED Source: [place] 12:00 PM [facility] REPOSITORY HNO ID: [id number] Author: Nadine BuiRn) LETICIA Barnhart Service: Nursing Author Type: Registered Nurse Type: Nursing Progress Note Filed: 02/16/2018 3:35 PM Note Text: Nursing Progress Note Patient Name: Alba Flores Patient Location: [place] [id number] Patient refusing q 2 hour turns. Education regarding pressure ulcer prevention was provided, but patient states that turning on her side is painful because of her chest tube. Will continue to encourage turns and small shifts in positioning. This note was completed by: Nadine Barnhart RN PROCEDURE Observed: 02/16/2018 Status: COMPLETED Source: [place] 11:03 AM [facility] REPOSITORY HNO ID: [id number] Author: Latasha Marie) LETICIA Ramey Service: PICC Team Author Type: Registered Nurse Type: Procedures Filed: 02/16/2018 11:08 AM Note Text: MIDLINE INSERTION PROCEDURE NOTE - PICC TEAM NURSES DATE OF PROCEDURE: 02/16/2018 TIME OF PROCEDURE: 1055 ORDERING PHYSICIAN: Morgan Winter PA-C Indications for line placement: Multiple IV attempts and restarts Condition of line placement: Sterile Primary Proceduralist: Rin Mann RN Hvac Controls Technician: Latasha Ramey RN Pre-procedure Review: ALLERGIES Allergen Reactions - Asa [Aspirin] GI Upset Known history of Venous Thrombosis: No Known history of Permanent Pacemaker or Automated Implanted Cardiac Device: No Previous breast surgery of lymph node dissection: No History of renal disease with Arterio-Venous fistula in place or planned?: No Ultrasound assessment complete: Yes Procedure Narrative Safe Practice: Hand hygiene per hospital policy: Yes Skin preparation used: Chloraprep (CHG + alcohol), allowed to dry Barriers used by Proceduralist and all assisting personnel: Yes UNIVERSAL PROTOCOL / SAFETY CHECKLIST Procedure to be performed: midline Sign in Communication: Completed Time Out: Team Confirms the Correct Patient, Correct Procedure, Correct Site and Site Marking, Correct Position (if applicable), Prep and Dry Time (if applicable). Time: 1050 Affirmation of Time Out: N/A Sign Out Discussion: Completed Latasha Ramey RN Midline Catheter Placement: Brand: bard Lot: [id number] Number of lumens: 1 Type of Midline: Power Injectable Midline Lumen size: 4Fr Placement Technique: Lidocaine: Yes. Strength: 1% Volume 2 Modified Seldinger Technique use to place line via the: Right Basilic Ultrasound Guidance: Yes Number of attempts at insertion: 1 Ensured control of guidewire during all aspects of the procedure: Yes Accounted for entire guidewire upon removal: Yes Internal length: 15 cm External length: 0 cm Trim length:15 cm Mid-Arm circumference above insertion site: 38 centimeters Post insertion pain level related to procedure: 0 Action taken to address pain: RN to monitor Verified placement: Positive blood return Line was flushed with 20 cc normal saline Line secured with: Securement device Sterile dressing applied and dated: Yes Sterile caps on all ports prior to leaving procedure area: Yes Specimens: None Complications: None, patient has non-functioing #20 PIV in right forearm. Patient states that the PIV is very painful Patient education materials: Given to patient Questions or problems: Page [phone] SIGNATURE: Latasha Ramey RN PATIENT NAME: Alba Flores DATE: February 16, 2018 TIME: 11:04 AM PAGER: [phone] PT ED Observed: 02/16/2018 Status: COMPLETED Source: [place] 11:01 AM [facility] REPOSITORY [facility] ID: [id number] Author: Latasha (Rn) LETICIA Ramey Service: PICC Team Author Type: Registered Nurse Type: Patient Education Filed: 02/16/2018 11:03 AM Note Text: PATIENT EDUCATION TOPIC: PROCEDURE / SURGERY: Procedure/Surgery: midline PATIENT NAME: Alba Flores PATIENT LOCATION: [place] [address] READINESS TO LEARN COGNITIVE ABILITY: Alert and oriented MOTIVATION TO LEARN: Interested FAMILY SUPPORT: Unable to assess - Family not present INSTRUCTION PROVIDED TO: Patient PATIENT LEARNS BEST BY: Individual Instruction Written Instruction - Hand-outs Verbal Instruction FACTORS AFFECTING LEARNING: Emotional Factors: Frustrated PHYSICAL LIMITATIONS AFFECTING LEARNING: Pain and Limited Mobility LEARNING RESPONSE DIAGNOSIS: ADULT: a-fib PATIENT/FAMILY RESPONSE: Verbalizes understanding of: POST-PROCEDURE INSTRUCTIONS-Correct actions to take to reduce post procedure complications METHOD OF INSTRUCTION: Individual instruction Written instruction - handouts FOLLOW-UP PLAN: Recommend - Recommend continued instruction and follow up as directed INSTRUCTIONAL AIDS USED: NA SUPPLEMENTAL MATERIAL PROVIDED TO PATIENT: Title of booklet / pamphlet: midline REFERRAL (RECOMMENDATION): Nursing Facility Electronically Signed By: Latasha Ramey RN CONSULT PROG Observed: 02/16/2018 Status: COMPLETED Source: [place] 10:17 AM [facility] REPOSITORY HNO ID: [id number] Author: Bobby Molina Service: Thoracic Surgery Author Type: Resident Type: Consult Progress Note Filed: 02/16/2018 10:18 AM Note Text: [facility] SURGERY CONSULT PROGRESS NOTE Alba Flores [id number] PRIMARY SERVICE: HOSPITAL DAY: # 5 INTERVAL HISTORY No acute events overnight L pigtail 150 cc / 24 hours Vitals stable. On nasal cannula PHYSICAL EXAM BP 103/59 Pulse 114 Temp 36.5 ?C (97.7 ?F) (Axillary) Resp 19 Ht 160 cm (5' 3) Wt (!) 140.9 kg (310 lb 10.1 oz) SpO2 97% BMI 55.03 kg/m? Constitutional: no acute distress Resp: decrease L BS Cardiovascular: regular rate and rhythm GI: soft, non-tender to palpation Neurological/Psychiatric: oriented, no gross focal neurologic deficits DATA Recent Labs 02/15/18222802/14/18 2342 02/13/18 2327 WBC 9.51 13.50* 8.92 HB 10.7* 11.7 11.0* HCT 34.1* 37.7 35.6* PLT 188 213 175 Recent Labs 02/15/18 22202/14/18 2342 02/13/18 2327 NA 137 138 140 K 3.7 4.2 3.7 CO2 30 30 33* BUN 24* 20 19 CREAT 1.34* 1.24* 1.28* GLUC 138* 136* 157* MG 1.9 1.8 2.1 IMAGING I personally reviewed: CXR ASSESSMENT AND PLAN 67 yo female with CHF, A fib, COPD, CKD, super morbid obesity (BMI 54), hx of endometrial cancer who was transferred to [facility] MICU from OSH on 02/11 for further management of Afib with RVR, acute hypoxic respiratory failure and L pleural effusion vs hemothorax. - awaiting CT chest today (no contrast need from TS perspective) - maintain L pigtail to suction for now, daily chest XR at 4 AM - aggressive bronchopulmonary hygiene, incentive spirometry Bobby L. Jesse, MD Cardiothoracic Surgery PGY2 Thoracic Consult Pager: [phone] CASE MANAGEM Observed: 02/16/2018 Status: COMPLETED Source: [place] 9:[address] [facility] REPOSITORY HNO ID: [id number] Author: Desi (Rn) Aixa Alfred RN Service: Care Management Author Type: Registered Nurse Type: Care Mgt Progress Note Filed: 02/16/2018 9:25 AM Note Text: NO WEEKEND DISCHARGE If case management assistance is needed over the weekend, please page [phone] CARE MANAGEMENT PROGRESS NOTE SERVICE DATE: 02/16/2018 SERVICE TIME: 9:13 AM LOS: 5 days Needs Prior to Discharge: To Be Determined;Home Care Order Admitted 02/11 to MICU as outside hospital transfer with SOB and left pleural effusion, here for possible chest tube or VATS Past medical history CHF, COPD, obesity, HTN, GERD, A flutter with RVR, CECILIA, osteopenia Currently: Oxygenating with BIPAP with FIO2 40%,, pulse ox 97%. Afebrile, heart rate tachy at 114, BP stable. Patient is currently on amiodarone gtt. Labs today include ceaetinine 1.34, WBC 9.51, Hg 10.7, HCT 34.1 and platelet count 188. Patient is noted to have left chest tube to water seal. Patient is full code. Discharge plan: Patient lives at home with spouse. Discharge disposition is dependent upon medical course. PT has currently skilled patient for home PT. Patient preference for home care agency [facility] ([phone]) Referral placed. If patient needs SNF, patient has list, but has not designated her preference. Of note, patient has home health aide Devin Boles through [facility]. He cannot work with patient while she is getting skilled care, but will return when skilled care is complete He needs to be notified at when patient discharged and if going home with skilled care. Patient to call him once skilled care complete. RNCC to follow. SIGNATURE: Desi Augustin RN PATIENT NAME: Alba Flores DATE: February 16, 2018 TIME: 9:12 AM PAGER/CONTACT #: [phone] PROGRESS Observed: 02/16/2018 Status: COMPLETED Source: [place] 8:16 AM [facility] REPOSITORY HNO ID: [id number] Author: Michelle Russell Service: Critical Care Author Type: Physician Type: Progress Notes Filed: 02/16/2018 12:52 PM Note Text: Critical Care Attending I have personally performed a face to face assessment of the patient and?have reviewed the PA/NETWORK CONTROL TECHNICIAN note.?My arceo findings?include: Assessment/Plan are 67 y/o female with CHF, A fib, COPD, endometrial cancer who was transferred to [facility] MICU from [facility] on 02/11 for further management of acute hypoxic respiratory failure, L pleural effusion, and AFib RVR. Acute respiratory failure: Decreased O2 support since thoracentesis Hemothorax: s/p thoracentesis and IR guided pigtail catheter placement. Exudative. Cytology is negative for malignancy. No clear trauma event Chest tube on water seal. Drainage decreased to 150mL/day EKATERINA: resolving. Afib: more controlled rate. Amiodarone drip. Low LVEF. continue B blockers US of the LE negative for DVTs. Will get CTA chest to assess for PE. This patient has a high probability of sudden, clinically significant deterioration, which requires the highest level of physician preparedness to intervene urgently. ?I managed/supervised life or organ supporting interventions that required frequent physician assessment. ?I devoted my full attention to the direct care of this patient for the amount of time indicated below. ?Time I spent with family or surrogate(s) is included only if the patient was incapable of providing the necessary information or participating in medical decision making. ?Time devoted to teaching and to any procedures I billed separately is not included. ? Critical Care Documentation:?The patient has the following organ/system impairment(s): ?Respiratory failure (Acute) ? Time spent providing critical care services: ?35?minutes. ? SIGNATURE: Michelle Russell MD [facility] PAGER:[phone] DATE of SERVICE: 02/16/18 TIME of SERVICE: 11am XR CHEST 1V FRONTAL Observed: 02/16/2018 Status: F Source: [facility] 6:59 AM [facility] REPOSITORY * * *Final Report* * * DATE OF EXAM: Feb 16 2018 6:59AM ROSY [id number] - XR CHEST 1V FRONTAL PORT / PROCEDURE REASON: Pleural effusion * * * * Physician Interpretation * * * * EXAMINATION: CHEST RADIOGRAPH (PORTABLE SINGLE VIEW AP) Exam Date/Time: 02/16/2018 6:59 AM Clinical History: Pleural effusion, MQ: [id number] Comparison: 1 day prior RESULT: See impression. IMPRESSION: Lines, tubes, and devices: Right tenuous pigtail pleural drainage catheter redemonstrated. Soft tissue gas along left chest wall extending to the neck. Morbid obesity. Lungs and pleura: Left greater than right inferior hemithoracic opacities, suggestive of mildly increased left pleural effusion, presumably blunting left lateral costophrenic angle (posteriorly layering component not excluded), and left greater than right basilar atelectasis/consolidation. Other processes such as aspiration or hemorrhage not excluded if clinical picture fits. Cardiomediastinal silhouette: Stable, enlarged cardiomediastinal silhouette. Other: . Acid Mixer: MYLA Transcribe Date/Time: Feb 16 2018 12:36P Dictated by : NICO CHAKRABORTY MD This examination was interpreted and the report reviewed and electronically signed by: NICO CHAKRABORTY MD on Feb 16 2018 12:40PM EST [id number] CBC Collected: 02/15/2018 Status: F Source: [place] 10:[address] [facility] REPOSITORY TYPE CODE TESTS RESULT OUT OF REFERENCE UNITS RANGE LAB WBC 3.70-11.00 k/uL WBC 9.51 LAB RBC 3.90-5.20 m/uL Low RBC 3.74 LAB HGB 11.5-15.5 g/dL Low Hemoglobin 10.7 LAB HCT 36.0-46.0 % Low Hematocrit 34.1 LAB MCV 80.0-100.0 fL MCV 91.2 LAB MCH 26.0-34.0 pG MCH 28.6 LAB MCHC 30.5-36.0 g/dL MCHC 31.4 LAB RDWCV 11.5-15.0 % RDW-CV 13.4 LAB PLTCT 150-400 k/uL Platelet Count 188 LAB MPV 9.0-12.7 fL MPV 10.7 LAB ABSNUC <0.01 k/uL Absolute nRBC <0.01 Performed By: #### CBC, CMP, MG1, PHOS #### [facility] [address] [place] [address] COMP METABOLIC PANEL Collected: 02/15/2018 Status: F Source: [place] 10:29 PM [facility] REPOSITORY TYPE CODE TESTS RESULT OUT OF REFERENCE UNITS RANGE LAB TP 6.3-8.0 g/dL Low Protein, Total 5.9 LAB ALB 3.9-4.9 g/dL Low Albumin 3.2 LAB CA 8.5-10.2 mg/dL Calcium, Total 8.9 LAB TBIL 0.2-1.3 mg/dL Bilirubin, Total 0.3 LAB ALKP 34-123 U/L Alkaline Phosphatase 76 LAB AST 13-35 U/L AST 15 LAB GLU 74-99 mg/dL Glucose High 138 Result Comment: The [place] Diabetes Association (ADA) provides guidance for cutoff values for fasting glucose and random glucose. The ADA defines fasting as no caloric intake for at least 8 hours. Fas ting plasma glucose results between 100 to 125 mg/dL indicate increased risk for diabetes (prediabetes). Fasting plasma glucose results greater than or equal to 126 mg/dL meet the criteria for diagnosis of diabetes. In the absence of unequivocal hyperglycemia, results should be confirmed by repeat testing. In a patient with classic symptoms of hyperglycemia or hyperglycemic crisis, random plasma glucose results greater than or equal to 200 mg/dL meet the criteria for diagnosis of diabetes. Reference: Standards of Medical Care in Diabetes 2016, [place] Diabetes Association. Diabetes Care. 2016.39(Suppl 1). LAB BUN 7-21 mg/dL BUN High 24 LAB CRET 0.58-0.96 mg/dL Creatinine High 1.34 LAB NA 136-144 mmol/L Sodium 137 LAB K 3.7-5.1 mmol/L Potassium 3.7 LAB CL 97-105 mmol/L Low Chloride 95 LAB CO2 22-30 mmol/L CO2 30 LAB AGAP 9-18 mmol/L Anion Gap 12 LAB ALT 7-38 U/L ALT 12 LAB GFRAA eGFR- Amer. 47 LAB GFRNAA . eGFR-All Other Races 39 Result Comment: eGFR (Estimated GFR) Units of measure: mL/min/1.73 meters squared eGFR is derived from the reexpressed MDRD Study equation using the following parameters: serum creatinine, age, gender and race. The creatinine assay has been calibrated to be traceable to IDMS. An eGFR <60 mL/min/1.73m2 for >3 months is consistent with chronic kidney disease. Refer to KDOQI guidelines for clinical interpretation. In patients with unstable renal function, e.g. those with acute kidney injury, the eGFR may not accurately reflect actual GFR. Performed By: #### CBC, CMP, MG1, PHOS #### [facility] [address] [place], [place] [address] MAGNESIUM Collected: 02/15/2018 Status: F Source: [place] 10:29 PM [facility] REPOSITORY TYPE CODE TESTS RESULT OUT OF REFERENCE UNITS RANGE LAB MG 1.7-2.3 mg/dL Magnesium 1.9 Performed By: #### CBC, CMP, MG1, PHOS #### [facility] [address] [place] [id number] PHOSPHORUS Collected: 02/15/2018 Status: F Source: [place] 10:29 PM [facility] REPOSITORY TYPE CODE TESTS RESULT OUT OF REFERENCE UNITS RANGE LAB PHOS 2.7-4.8 mg/dL Phosphorus 3.4 Performed By: #### CBC, CMP, MG1, PHOS #### [facility] [address] [place] [address] PROGRESS Observed: 02/15/2018 Status: COMPLETED Source: [place] 8:15 PM [facility] REPOSITORY HNO ID: [id number] Author: Nate Torres DO (Fel) Service: Critical Care Author Type: Fellow Type: Progress Notes Filed: 02/15/2018 8:22 PM Note Text: Critical Care Interval Note: Unable to establish peripheral access with use of ultrasound despite three attempts (left arm x 2 and left external jugular x 1). SIGNATURE: Nate Torres DO - Pulmonary and Critical Care Fellow PGY4, [facility] PAGER: [phone] DATE of SERVICE: 02/15/2018 TIME of SERVICE: 8:19 PM CONSULT Observed: 02/15/2018 Status: COMPLETED Source: [place] 1:36 PM [facility] REPOSITORY HNO ID: [id number] Author: Nydia Vogel Service: Cardiovascular Medicine Author Type: Physician Type: Consults Filed: 02/15/2018 7:16 PM Note Text: [facility] CARDIOVASCULAR MEDICINE CONSULT NOTE (Template ID [id number]) Alba Flores [id number] PRIMARY SERVICE: MICU CONSULTING SERVICE: Cardiovascular Medicine: General Consults DATE OF ADMISSION: 02/11/2018 DATE OF CONSULT: 02/15/2018 REASON FOR CONSULT A-fib recommendations HISTORY OF PRESENT ILLNESS Alba Flores is a 67 year old female pmh of endometrial cancer s/p ALEX/BSO, NAFLD, COPD, CECILIA, CHF, A-flutter admitted from OSH for recurrent pleural effusion and respiratory distress. At OSH she had thoracentesis, reportedly bloody returning 150mL, with rapid reaccumulation. They have diuresed her negative 20L. Her weight is down well below any previously recorded weight here at [facility] (~30lbs). Her chest tube put out 975 on day 1. Yesterday it put out 375. The output is serous. According to the patient, she had been recently admitted in December for similar symptoms. She was diuresed, a-flutter/fib was refractory to cardioversion, so she has been rate controlled and on xarelto. She feels much improved at the moment. Denies CP. PAST MEDICAL HISTORY PAST MEDICAL HISTORY Diagnosis Date - Atrial flutter (HCC) - Borderline diabetes 12/2014 - COPD (chronic obstructive pulmonary disease) (HCC) - Endometrial cancer, grade I (HCC) 12/2014 - GERD (gastroesophageal reflux disease) - HTN (hypertension) 12/2014 - Morbid obesity with BMI of 60.0-69.9, adult (HCC) - CECILIA (obstructive sleep apnea) - Osteopenia PAST SURGICAL HISTORY Procedure Laterality Date - APPENDECTOMY - LAP, SUPRACERVIAL HYSTERECTOMY W/ TUBEANDOV, <250G 2014 - TUBAL LIGATION HX FAMILY HISTORY FAMILY HISTORY Problem Relation Age of Onset - COPD Mother - Heart Mother - Heart Father - Colon Cancer Sister SOCIAL HISTORY Social History Substance Use Topics - Smoking status: Former Smoker Packs/day: 1.00 Years: 5.00 Types: Cigarettes Quit date: 04/17/1984 - Smokeless tobacco: Never Used Comment: still smokes in the home - Alcohol use Yes Comment: rarely HOME MEDICATIONS rivaroxaban (XARELTO) 20 mg tablet Take 1 tablet by mouth DAILY AT [address] (PROTONIX) 20 mg tablet Take 1 tablet by mouth once daily. diltiazem (CARDIZEM) 60 mg tablet Take 1 tablet by mouth three times daily. metoprolol tartrate, short acting, (LOPRESSOR) 50 mg tablet Take 1 tablet by mouth twice daily. calcium carbonate-vitamin D3 500-100 mg-unit chewable tablet Take 1 tablet by mouth once daily. Menthol-Zinc Oxide (CALMOSEPTINE) 0.44-20.6 % Apply 1 application to affected area twice daily. OXYGEN, HOME THERAPY, 2 L/min by Nasal Cannula route as directed. omeprazole (PRILOSEC) 20 mg capsule Take 1 capsule by mouth once daily. DOCOSAHEXANOIC ACID/EPA (FISH OIL ORAL) Take by mouth. nystatin (NYSTOP) powder Apply 1 application to affected area three times daily. aspirin 81 mg chewable tablet Take 1 tablet by mouth once daily. Patient is taking daily since she can't afford Xarelto lisinopril (ZESTRIL, PRINIVIL) 20 mg tablet Take 1.5 tablets by mouth once daily. INPATIENT MEDICATIONS Current hospital medications: metoprolol tartrate (short acting) 50 mg tab(s) (LOPRESSOR) 50 mg ORAL q 8 H heparin 5,000 Units injection 5,000 Units SUBCUTANEOUS q 8 H amiodarone 360 mg in D5W 200 mL (NEXTERONE) 0.5 mg/min INTRAVENOUS CONTINUOUS calcium carbonate 750 mg chewable tab(s) (TUMS) 750 mg ORAL/FEEDING TUBE TID PRN dextrose 50 % 12.5-25 g injection 12.5-25 g INTRAVENOUS PRN potassium chloride ER 40 mEq tab(s) (K-DUR, KLOR-CON) 40 mEq ORAL/FEEDING TUBE q 2 H PRN magnesium sulfate in water 4-6 g in sterile water 50 ml 4- 6 g INTRAVENOUS PRN sodium glycerophosphate 45 mmol in NaCl 0.9% 250 mL (GLYCOPHOS) 45 mmol INTRAVENOUS PRN acetaminophen 650 mg tab(s) (TYLENOL) 650 mg ORAL/FEEDING TUBE q 6 H PRN acetaminophen 650 mg suppository (TYLENOL) 650 mg RECTAL q [address] 20 mg tab(s) (PROTONIX) 20 mg ORAL DAILY senna-docusate 8.6-50 mg 1 tablet (SENNA-S) 1 tablet ORAL BID eqwygsr-jnjfsrpgg-iyqvazf D3 500 mg(1,250mg) -200 unit 1 tablet 1 tablet ORAL DAILY perflutren lipid microspheres 1.1 mg/mL 1.3 mL injection (DEFINITY) 1.3 mL INTRAVENOUS DIRECTED PRN ALLERGIES ALLERGIES Allergen Reactions - Asa [Aspirin] GI Upset COMPLETE REVIEW OF SYSTEMS Constitutional: Feels well HEENT: Negative for frequent or significant headaches Respiratory: Negative for cough, wheezing, or shortness of breath Cardiovascular: Negative for chest pain, leg swelling or palpitations Gastrointestinal: Abd discomfort Genitourinary: No history of dysuria, frequency, or incontinence Endocrine: Negative for cold or heat intolerance, polyuria, polydipsia and goiter Neurologic: No history or headaches, syncope, paralysis, seizures or tremors Integumentary: Negative for lesions, rash, and itching. PHYSICAL EXAM BP 89/71 Pulse 115 Temp 36.7 ?C (98.1 ?F) (Oral) Resp (!) 34 Ht 160 cm (5' 3) Wt (!) 143.2 kg (315 lb 11.2 oz) SpO2 98% BMI 55.92 kg/m? General Appearance: Obese HEENT: EOM's intact Lungs: Decreased breath sounds Heart: Irregular Abdomen: Round Skin: Warm Musculoskeletal: No deformities Neurologic/Psychiatric: Oriented to time, place AND person DATA Laboratory: Recent Labs 02/14/18 2342 02/13/18 2327 02/13/18 1544 WBC 13.50* 8.92 10.04 HB 11.7 11.0* 11.9 HCT 37.7 35.6* 38.3 PLT 213 175 199 Recent Labs 02/14/18 2342 02/13/18 2327 02/12/18 2330 NA 138 140 139 K 4.2 3.7 3.1* CO2 30 33* 35* BUN 20 19 23* CREAT 1.24* 1.28* 1.32* GLUC 136* 157* 105* MG 1.8 2.1 2.0 Recent Labs 02/14/18 1909 02/12/18 1655 TROPT <0.010 <0.010 Cholesterol, Total (mg/dL) Date Value 05/19/2016 215 HDL Cholesterol (mg/dL) Date Value 05/19/2016 57 LDL Cholesterol (mg/dL) Date Value 05/19/2016 126 Triglyceride (mg/dL) Date Value 05/19/2016 158 Hemoglobin A1C (%) Date Value 04/14/2017 6.0 EK/31: A-flutter with RBBB Chest Radiograph: Lungs and pleura: ?Small loculated left hydropneumothorax is not significantly changed. ?Bilateral lower lobe opacities likely represent atelectasis. ?Superimposed infection cannot be excluded. Echocardiogram: The left ventricle is normal in size. Left ventricular systolic function is severely decreased. EF = 20 ? 5% (visual est.) Variability in biventricular contraction (AF). Technically difficult apical imaging with suboptimal endocardial ?definition. - The right ventricle is normal in size. Right ventricular systolic function is moderately to severely decreased. - The left atrial cavity is dilated. - The right atrial cavity is dilated. - The patient has not had a prior CC echocardiographic exam for comparison. Note that the patient was in atrial fibrillation with rapid ventricular response rates during the examination. Significant impairment of biventricular contraction in the ?context of atrial fibrillation with rapid ventricular response rates. Consider repeat echocardiogram study to reassess ventricular function, once rhythm/rate controlled. ASSESSMENT AND RECOMMENDATIONS Alba Flores is a 67 year old female pmh of endometrial cancer s/p ALEX/BSO, NAFLD, COPD, CECILIA, CHF, A-flutter admitted from OSH for recurrent pleural effusion and respiratory distress in setting of a- fib/flutter with RVR. Echo on admission: EF 20% while in RVR 12/05: Echo EF 45% Acute exacerbation of CHF: Pleural effusion, decreased EF while in RVR, diuresed >20L at OSH with no hemodynamic instability. Of note pleural effusion analysis consistent with exudate. Patient 30 lbs from previous admissions. No JVD noted on exam. - Cautious diuresis as able. A-fib/flutter: rate control with BB and anticoagulate as able. Amiodarone while off AC has small chance of conversion to NSR and the patient understands this. Case discussed with staff Josh Rodriguez MD 02/15/2018 1:37 PM [facility] STAFF PHYSICIAN NOTE OF PERSONAL INVOLVEMENT IN CARE IMPRESSION/RECOMMENDATIONS: Start anticoagulation when able for atrial flutter. Continue beta blockade. I have reviewed the documentation obtained and documented by the Resident and have reviewed and updated the problem list as appropriate. I have personally performed a face to face assessment of the patient and have personally participated in the arceo components. I have discussed the case and management of the patient's care. STAFF PHYSICIAN: Nydia Vogel MD DATE OF SERVICE: February 15, 2018 TIME OF SERVICE: 7:15 PM THERAPY NT Observed: 02/15/2018 Status: COMPLETED Source: [place] 11:51 AM [facility] REPOSITORY HNO ID: [id number] Author: Bernarda (Pt) Melissa Service: Physical Therapy Author Type: Physical Therapist Type: Therapy (PT/OT/Speech/Resp) Filed: 02/15/2018 11:54 AM Note Text: Physical Therapy Evaluation SERVICE DATE: 02/15/2018 SERVICE TIME: 0917 to 1005 ROOM: [place] [address] Recommended Discharge Disposition: Home PT due to decreased activity tolerance, and strength PT Recommendations to Nursing: Transfer to/from chair;To bathroom;Ambulate with device;OOB for Meals;With assist of 1 person Device: Wheeled Walker PT 6 Clicks Score: 18 ASSESSMENT : Anticipate that patient will be safe to return home from a PT perspective with PT. Pt requires skilled therapy to address current functional limitations and impairments and maximize activity tolerance to be within safe limits. Patient Disposition at Start of Session: Supine in Bed Patient Disposition at End of Session: OOB in Chair Tolerated Full Session Physical Therapy Problem List: Decreased Activity Tolerance;Decreased Strength;Functional Mobility Impairment;Balance Impaired Patient /Caregiver Goals: Go Home Goals for Plan of Care: Rolling with: Stand By Assistance Transfer supine to/from sit with: Stand By Assistance Transfer sit to/from stand with: Stand By Assistance Ambulate with: Stand By Assistance Distance: 100 Device: Wheeled Walker Rehab Potential: Excellent Based on prior level of function and motivation PLAN: Treatment Frequency (times per week): 3 Current admission Treatment Interventions: Education;Energy Conservation Training;Strengthening;Functional Mobility Training;Balance Training Plan of Care developed with: Patient TREATMENT INTERVENTIONS: Therapy Diagnosis: Reduced mobility-other Interventions Provided: Evaluation;Gait Training (36568) $ Evaluation-Low (34125) Billed Units: 1 unit Gait Training (95348) Treatment Minutes: 30 2 units Skilled Intervention(s):Education on the role of PT and the importance of mobility. Sit to stand transfer with min assist and min verbal cueing for proper hand placement and safety. Pivot transfer with min assist. Cueing for proper use of WW and good hand placement for safety. Gait training 30 ft x 3 trials with WW and CGA for balance. Seated and standing rest breaks provided to increase activity tolerance. Verbal cueing for normalized gait pattern and shoulder relaxation. Education on increasing OOB activities and ambulating several times daily. discussion on discharge planning. Skilled intervention for ICU line/room setup for safe mobility environment as well as for vital sign monitoring to assess hemodynamic and respiratory response to activity to prescribe safe intensity and duration of activity/exercise during above interventions. Recommended discharge to home with PT. Highest Level of Mobility (-HLM) This scale indicates the objective performance level this date and does not reflect clinical judgment of capability. Today the patient scored a 7 on the JH-HLM. Explanations are noted in the chart below. ? ? Criteria Score Walk 250+ feet 8 ? 25+ feet 7 ? 10+ steps 6 Stand > 1 minute 5 Chair Transfer to chair 4 Bed Sitting at EOB 3 ? Turning self/bed activity* 2 ? Only laying 1 *Includes PROM/AROM, bed exercises and UE/LE movement Total Timed Code Treatment Minutes: 30 Total Treatment Time (minutes): 48 FUNCTIONAL G CODE: PT 6 Clicks Score: 18 (02/15/18916) Mobility: Walking and Moving Around Current Status (G8978): CK (02/15/18916) Mobility: Walking and Moving Around Goal Status (G8979): CJ (02/15/18916) Based on clinical assessment and the score on the 6 Clicks Functional Assessment Tool, the G code and corresponding severity modifiers are documented above. SUBJECTIVE: Current Hospital Course: Chart reviewed; , 67 yo female with a h/o CHF, A fib, HTN, COPD, endometrial cancer who was transferred to [facility] MICU from OSH on 02/11 for further management of acute hypoxic respiratory failure secondary to L hemothorax and AFib RVR. Course c/b EKATERINA in setting of over diuresis. ? Major Interval Events: 02/11: Reuqired BIPAP most of the day for WOB. Bedside US with mod-large L pleural effusion, possibly loculated. Net negative 1.2L, bump in SCr to 1.4. 02/12: Afebrile. Maintained on ~8 hours of BiPAP overnight - currently on 2L NC. A left sided thoracentesis performed yesterday (1.8L extracted, appears to be exudate). CTS prefers to have pigtail placed in IR - scheduled for today. This morning, slightly hypotensive and scheduled Metoprolol was held. 02/13: Overnight, HR ~130s - AFib. After not responding to fluids, pt given Amiodarone bolus and drip. Drip was held an hour after being started. Now, restarting drip to assist with rate control - given HR still ~130s on Cardizem and Metoprolol PO 02/15: HR >120. Intermittent hypotension requiring IVF. C/o vague diffuse chest pain, that resolves with BIPAP. Otherwise, only requiring 2L NC. 375 output from chest tube/24H. Patient Report: Your the professional what do you think? patient agreeable to PT session Home Environment Patient Lives With: Significant Other Assistance Available: time clock mechanic Entry To Home: No Stairs Equipment Owned: Wheeled Walker;Hospital Bed Prior Functional Level: Within Functional Limits OBJECTIVE: CURRENT FUNCTIONAL STATUS: further mobility deferred due to concerns for patient safety and tolerance Current Functional Mobility Assist Level Additional Information Rolling Supine to Sit Sit to Supine Scooting Contact Guard Assistance Sit to Stand Minimal Assistance Stand to Sit Minimal Assistance Bed to Chair Minimal Assistance (x2) Bed To Chair Transfer Type: Stand Pivot Toilet/Commode Gait Contact Guard Assistance Gait Device: Wheeled Walker Gait Distance (feet): 30x3 Stairs Curb Step Car Transfer General Gait Deviations: Nivia decreased;Flexed trunk posture;Narrow Base of Support;Shuffling Gait Please see discipline specific clinical documentation flowsheet for complete details for this therapy evaluation/treatment. SIGNATURE: Bernarda Torres PT PATIENT NAME: Alba Flores DATE: February 15, 2018 TIME: 11:51 AM PROGRESS Observed: 02/15/2018 Status: COMPLETED Source: [place] 11:[address] [facility] REPOSITORY HNO ID: [id number] Author: Morgan Winter Service: Critical Care Author Type: Physician Hvac Controls Technician Type: Progress Notes Filed: 02/15/2018 11:13 AM Note Text: SERVICE DATE: 02/15/2018 SERVICE TIME: 11:12 AM MICU PROGRESS NOTE Admission Date: 02/11/2018 Hospital Day # 4 SUBJECTIVE Interval Events: No Change OBJECTIVE Vital Signs (last filed) Range in last 24h Temp: 36.7 ?C (98.1 ?F) (02/15/18 0800) Temp Min: 36.7 ?C (98.1 ?F) Max: 37.4 ?C (99.3 ?F) Pulse: (!) 122 (02/15/18 0800) Pulse Min: 111 Max: 131 Resp: 21 (02/15/18 0800) Resp Min: 20 Max: 40 BP: 96/68 (02/15/18 0800) BP Min: 56/38 Max: 132/93 MAP Non Invasive (Mean Arterial Pressure): 78 (02/15/18 08) MAP Non Invasive (Mean Arterial Pressure) Min: 43 Max: 104 No Data Recorded SpO2: 99 % (02/15/18 08) SpO2 Min: 94 % Max: 100 % Pain Score: 0/10 (02/15/18 0400) Fluid Balance: Intake/Output Summary (Last 24 hours) at 02/15/18 0659 Last data filed at 02/15/18 0600 Gross per 24 hour Intake 2030 ml Output 1325 ml Net 705 ml Last Weight: (!) 143.2 kg (315 lb 11.2 oz) (02/15/18 0300) Admit Weight: (!) 141.8 kg (312 lb 9.8 oz) (02/11/18 0600) DIET HEART HEALTHY Lines, Drains, and Airways Line Peripheral 02/13/18 0000 Right Forearm 20 Gauge 2 days Peripheral 02/14/18 1142 Short Left Hand 20 Gauge less than 1 day Drain External Urinary Drain 02/12/18 0205 Assessment 3 days Chest Tube 02/13/18 1500 Left Pleural Tube #1 1 day Vent/Oxygen: NC Physical Examination Performed Oral Mucosa: Moist mucous membranes Eyes: PERRL Cardiovascular: Irregular rhythm Respiratory: Reduced breath sounds bilat Abdomen: Soft, Distended and Positive bowel sounds Extremities: Edema- Yes Peripheral Pulses- Present all extremities Capillary Refill- less than 3 seconds Skin: Abnormalities- Yes Breakdown- See RN do Neurologic: Awake, oriented, Alert, Follows commands and Moving all extremities Infusion Medications amiodarone Last Rate: 0.5 mg/min (02/15/18 0700) Diagnostic tests reviewed today: Most recent labs and imaging results. PATIENT CHECKLIST ? Are restraints necessary: No ? Deep vein thrombosis prophylaxis administered? Yes ? Stress ulcer prophylaxis? No, not indicated. ? Nasogastric tube? No ? Goldstein catheter necessary? No ? Is central line essential? No ? Plan discussed with assigned RN? Yes ? Family updated within last 24 hours? Yes CARE COORDINATION: Patient Summary: 67 yo female with a h/o CHF, A fib, HTN, COPD, endometrial cancer who was transferred to [facility] MICU from OSH on 02/11 for further management of acute hypoxic respiratory failure secondary to L hemothorax and AFib RVR. Course c/b EKATERINA in setting of over diuresis. Major Interval Events: 02/11: Reuqired BIPAP most of the day for WOB. Bedside US with mod-large L pleural effusion, possibly loculated. Net negative 1.2L, bump in SCr to 1.4. 02/12: Afebrile. Maintained on ~8 hours of BiPAP overnight - currently on 2L NC. A left sided thoracentesis performed yesterday (1.8L extracted, appears to be exudate). CTS prefers to have pigtail placed in IR - scheduled for today. This morning, slightly hypotensive and scheduled Metoprolol was held. 02/13: Overnight, HR ~130s - AFib. After not responding to fluids, pt given Amiodarone bolus and drip. Drip was held an hour after being started. Now, restarting drip to assist with rate control - given HR still ~130s on Cardizem and Metoprolol PO 02/15: HR >120. Intermittent hypotension requiring IVF. C/o vague diffuse chest pain, that resolves with BIPAP. Otherwise, only requiring 2L NC. 375 output from chest tube/24H. Plan for the Day: - Supplemental O2/BIPAP as needed - Pigtail catheter to water seal - Consult cardiology for persistent AFib - LE DVT US - Holding diuresis, reassess daily. - PT/OT, OOB as tolerated - Remains in MICU - Plan discussed with staff ASSESSMENT AND PLAN Overview, Assessment AND Plan, all Hosp Problems Active Hospital Problems as of 02/15/2018 Noted - Resolved Cardiovascular HTN (hypertension) Unknown - Present Current Assessment AND Plan Assessment: Home meds: diltiazem, metop, lisinopril PLAN: - Continue dilt, metop - Holding home lisinopril d/t EKATERINA Atrial fibrillation (HCC) 02/11/2018 - Present Current Assessment AND Plan Assessment: Home meds: diltiazem, metop. Previously on Xarelto which was held d/t vaginal bleeding. Was scheduled for ablation as OP prior to admission. PLAN: - Continue amio gtt - Continue dilt and metop - Holding therapeutic AC d/t hemothorax - Consult cardiology Pulmonary COPD (chronic obstructive pulmonary disease) ([facility]) 02/11/2018 - Present Current Assessment AND Plan Assessment: On 2L home O2 PLAN: - Supplemental O2/BIPAP as needed * (Principal)Respiratory failure ([facility]) 02/12/2018 - Present Current Assessment AND Plan Assessment: Secondary to L hemothorax (s/p thora 02/12 with hct 33.9) s/p 14F pigtail cath placed by IR on 02/13. PLAN: - Supplemental O2 as needed - Thoracic surgery following - Chest tube to water seal - BPH - Assess daily for diuresis Hemothorax on left 02/15/2018 - Present Current Assessment AND Plan PLAN: See plan for respiratory failure Nephrology EKATERNIA (acute kidney injury) ([facility]) 02/12/2018 - Present Current Assessment AND Plan Assessment: Nonoliguric EKATERINA in setting of diuresis, poor PO intake. Baseline SCr 1.00 PLAN: - Strict IANDO's. Monitor BMP. Oncology Endometrial cancer, grade I ([facility]) 01/17/2015 - Present Current Assessment AND Plan Assessment: S/p TAHBSO 2014 c/b recent vaginal bleeding on Xarelto that resolved with antibiotics and discontinuation of anticoagulation PLAN: - [employer] curb-sided on this admission with recommendations for OP follow up. Other Obesity, Class III, BMI >= 40 02/11/2018 - Present Medication and Non-Pharmacologic VTE Prophylaxis/Anticoagulants Anticoagulant AND Antiplatelet Medications Start Dose Route Frequency Ordered Stop 02/14/18 1400 heparin 5,000 Units injection 5,000 Units SUBCUTANEOUS EVERY 8 HOURS 02/14/18 0710 -- 02/11/18 0245 pneumatic compression stockings ([place], [place]) 02/11/18 0245 activity - mobilize patient ([place]) VTE Prophylaxis: VTE prophylaxis appropriate Plan of care discussed with: ICU Team SIGNATURE: Morgan Winter PA-C PATIENT NAME: Alba Flores DATE: February 15, 2018 TIME: 11:12 AM PAGER/CONTACT #: [phone] CONSULT PROG Observed: 02/15/2018 Status: COMPLETED Source: [place] 9:19 AM [facility] REPOSITORY HNO ID: [id number] Author: Bobby Molina Service: Thoracic Surgery Author Type: Resident Type: Consult Progress Note Filed: 02/15/2018 9:20 AM Note Text: [facility] THORACIC SURGERY CONSULT PROGRESS NOTE Alba Flores [id number] PRIMARY SERVICE: HOSPITAL DAY: # 4 INTERVAL HISTORY No acute events overnight L pigtail 375 cc / 24 hours Vitals stable. On nasal cannula PHYSICAL EXAM BP 96/68 Pulse (!) 122 Temp 36.7 ?C (98.1 ?F) (Axillary) Resp 21 Ht 160 cm (5' 3) Wt (!) 143.2 kg (315 lb 11.2 oz) SpO2 99% BMI 55.92 kg/m? Constitutional: no acute distress Resp: decrease L BS Cardiovascular: regular rate and rhythm GI: soft, non-tender to palpation Neurological/Psychiatric: oriented, no gross focal neurologic deficits DATA Recent Labs 02/14/18 2342 02/13/18 2327 02/13/18 1544 WBC 13.50* 8.92 10.04 HB 11.7 11.0* 11.9 HCT 37.7 35.6* 38.3 PLT 213 175 199 Recent Labs 02/14/18 2342 02/13/18 2327 02/12/18 2330 NA 138 140 139 K 4.2 3.7 3.1* CO2 30 33* 35* BUN 20 19 23* CREAT 1.24* 1.28* 1.32* GLUC 136* 157* 105* MG 1.8 2.1 2.0 IMAGING I personally reviewed: CXR ASSESSMENT AND PLAN 67 yo female with CHF, A fib, COPD, CKD, super morbid obesity (BMI 54), hx of endometrial cancer who was transferred to [facility] MICU from OSH on 02/11 for further management of Afib with RVR, acute hypoxic respiratory failure and L pleural effusion vs hemothorax. - maintain L pigtail to suction for now, daily chest XR at 4 AM - aggressive bronchopulmonary hygiene, incentive spirometry Bobby Molina MD Cardiothoracic Surgery PGY2 Thoracic Consult Pager: [phone] PROGRESS Observed: 02/15/2018 Status: COMPLETED Source: [place] 8:10 AM [facility] REPOSITORY HNO ID: [id number] Author: Michelle Russell Service: Critical Care Author Type: Physician Type: Progress Notes Filed: 02/15/2018 7:07 PM Note Text: Critical Care Attending I have personally performed a face to face assessment of the patient and?have reviewed the PA/NETWORK CONTROL TECHNICIAN note.?My arceo findings?include: Assessment/Plan are 67 y/o female with CHF, A fib, COPD, endometrial cancer who was transferred to [facility] MICU from OS on 02/11 for further management of acute hypoxic respiratory failure, L pleural effusion, and AFib RVR. Acute respiratory failure: Decreased O2 support since thoracentesis Hemothorax: s/p thoracentesis and IR guided pigtail catheter placement. No clear etiology EKATERINA: resolving. Afib: uncontrolled rate overnight with hypotension. on amiodarone drip. Low LVEF. ? This patient has a high probability of sudden, clinically significant deterioration, which requires the highest level of physician preparedness to intervene urgently. ?I managed/supervised life or organ supporting interventions that required frequent physician assessment. ?I devoted my full attention to the direct care of this patient for the amount of time indicated below. ?Time I spent with family or surrogate(s) is included only if the patient was incapable of providing the necessary information or participating in medical decision making. ?Time devoted to teaching and to any procedures I billed separately is not included. ? Critical Care Documentation:?The patient has the following organ/system impairment(s): ?Respiratory failure (Acute) ? Time spent providing critical care services: ?35?minutes. ? SIGNATURE: Michelle Russell MD [facility] PAGER:[phone] DATE of SERVICE: 02/15/18 TIME of SERVICE: 10am XR CHEST 1V FRONTAL Observed: 02/15/2018 Status: F Source: [facility] 6:52 AM [facility] REPOSITORY * * *Final Report* * * DATE OF EXAM: Feb 15 2018 6:52AM ROSY [id number] - XR CHEST 1V FRONTAL PORT / PROCEDURE REASON: Pleural effusion * * * * Physician Interpretation * * * * EXAMINATION: CHEST RADIOGRAPH (PORTABLE SINGLE VIEW AP) Exam Date/Time: 02/15/2018 6:52 AM Clinical History: Pleural effusion, MQ: XCPMC_5 Comparison: 1 day prior RESULT: See impression. IMPRESSION: Lines, tubes, and devices: A percutaneous left pleural drainage catheter is unchanged. Lungs and pleura: Small loculated left hydropneumothorax is not significantly changed. Bilateral lower lobe opacities likely represent atelectasis. Superimposed infection cannot be excluded. Cardiomediastinal silhouette: Stable cardiomediastinal silhouette. The heart is enlarged. Other: Gas is seen in the soft tissues of the left chest wall. Acid Mixer: MYLA Transcribe Date/Time: Feb 15 2018 11:21A Dictated by : LOIS RECINOS MD This examination was interpreted and the report reviewed and electronically signed by: OLIS RECINOS MD on Feb 15 2018 11:23AM EST [id number] CBC Collected: 02/14/2018 Status: F Source: [place] 11:42 PM [facility] REPOSITORY TYPE CODE TESTS RESULT OUT OF REFERENCE UNITS RANGE LAB WBC 3.70-11.00 k/uL WBC High 13.50 LAB RBC 3.90-5.20 m/uL RBC 4.13 LAB HGB 11.5-15.5 g/dL Hemoglobin 11.7 LAB HCT 36.0-46.0 % Hematocrit 37.7 LAB MCV 80.0-100.0 fL MCV 91.3 LAB MCH 26.0-34.0 pG MCH 28.3 LAB MCHC 30.5-36.0 g/dL MCHC 31.0 LAB RDWCV 11.5-15.0 % RDW-CV 13.3 LAB PLTCT 150-400 k/uL Platelet Count 213 LAB MPV 9.0-12.7 fL MPV 10.5 LAB ABSNUC <0.01 k/uL Absolute nRBC <0.01 Performed By: #### CBC, BMP, MG1, PHOS #### [facility] [address] [place], [place] [address] BASIC METABOLIC PANL Collected: 02/14/2018 Status: F Source: [place] 11:42 PM [facility] REPOSITORY TYPE CODE TESTS RESULT OUT OF REFERENCE UNITS RANGE LAB GLU 74-99 mg/dL High Glucose 136 Result Comment: The [place] Diabetes Association (ADA) provides guidance for cutoff values for fasting glucose and random glucose. The ADA defines fasting as no caloric intake for at least 8 hours. Fas ting plasma glucose results between 100 to 125 mg/dL indicate increased risk for diabetes (prediabetes). Fasting plasma glucose results greater than or equal to 126 mg/dL meet the criteria for diagnosis of diabetes. In the absence of unequivocal hyperglycemia, results should be confirmed by repeat testing. In a patient with classic symptoms of hyperglycemia or hyperglycemic crisis, random plasma glucose results greater than or equal to 200 mg/dL meet the criteria for diagnosis of diabetes. Reference: Standards of Medical Care in Diabetes 2016, [place] Diabetes Association. Diabetes Care. 2016.39(Suppl 1). LAB BUN 7-21 mg/dL BUN 20 LAB CRET 0.58-0.96 mg/dL Creatinine High 1.24 LAB NA 136-144 mmol/L Sodium 138 LAB K 3.7-5.1 mmol/L Potassium 4.2 LAB CL 97-105 mmol/L Low Chloride 95 LAB CO2 22-30 mmol/L CO2 30 LAB AGAP 9-18 mmol/L Anion Gap 13 LAB CA 8.5-10.2 mg/dL Calcium, Total 9.0 LAB GFRAA eGFR- Amer. 52 LAB GFRNAA . eGFR-All Other Races 43 Result Comment: eGFR (Estimated GFR) Units of measure: mL/min/1.73 meters squared eGFR is derived from the reexpressed MDRD Study equation using the following parameters: serum creatinine, age, gender and race. The creatinine assay has been calibrated to be traceable to IDMS. An eGFR <60 mL/min/1.73m2 for >3 months is consistent with chronic kidney disease. Refer to KDOQI guidelines for clinical interpretation. In patients with unstable renal function, e.g. those with acute kidney injury, the eGFR may not accurately reflect actual GFR. Performed By: #### CBC, BMP, MG1, PHOS #### [facility] [address] [place] [id number] MAGNESIUM Collected: 02/14/2018 Status: F Source: [place] 11:42 PM [facility] REPOSITORY TYPE CODE TESTS RESULT OUT OF REFERENCE UNITS RANGE LAB MG 1.7-2.3 mg/dL Magnesium 1.8 Performed By: #### CBC, BMP, MG1, PHOS #### [facility] [address] [place], [place] [address] PHOSPHORUS Collected: 02/14/2018 Status: F Source: [place] 11:42 PM [facility] REPOSITORY TYPE CODE TESTS RESULT OUT OF REFERENCE UNITS RANGE LAB PHOS 2.7-4.8 mg/dL Low Phosphorus 2.6 Performed By: #### CBC, BMP, MG1, PHOS #### [facility] [address] [place], [place] [address] ECG COMPLETE W Observed: 02/14/2018 Status: C Source: [place] INTERPRETATION 9:23 PM [facility] REPOSITORY NAME : ALBA FLORES PID : [id number] : 1950 Gender : Female Race : ORD : [id number] Procedure Date : Feb 14 2018 21:23:51 Edit Date : Feb 15 2018 11:49:12 Diagnosis:ATRIAL FLUTTER WITH 2 TO 1 BLOCK DEGENERATES INTO ATRIAL FIBRILLATION COMPLETE RIGHT BUNDLE BRANCH BLOCK ABNORMAL ECG Reconfirmed by MD LILIBETH, PhD, EVE ([id number]) on 02/15/2018 11:49:10 AM Ventricular Rate : 117 BPM Atrial Rate : 122 BPM QRS Duration : 184 ms Q-T Interval : 408 ms QTC Calculation(Bezet) : 569 ms R Patterson : 269 degrees T Patterson : 44 degrees Test Reason : A-fib Location : 62 : G60 005 Overread By : MD LILIBETH, PhD,EVE Edited By : MD LILIBETH, PhD,EVE Referred By : , Acquired by : ROGER AYON TROPONIN T Collected: 02/14/2018 Status: F Source: [place] 7:09 PM [facility] REPOSITORY TYPE CODE TESTS RESULT OUT OF REFERENCE UNITS RANGE LAB TROPT 0.000-0.029 ng/mL Troponin T <0.010 Performed By: #### MAGY #### [facility] [address] [place], [place] [address] EKG1 Observed: 02/14/2018 Status: F Source: [place] 6:31 PM [facility] REPOSITORY NAME : ALBA FLORES PID : [id number] : 1950 Gender : Female Race : ORD : Procedure Date : Feb 14 2018 18:31:02 Edit Date : Feb 15 2018 11:48:10 Diagnosis:ATRIAL FLUTTER WITH 2:1 A-V CONDUCTION COMPLETE RIGHT BUNDLE BRANCH BLOCK ABNORMAL ECG Confirmed by MD LILIBETH, PhD, EVE ([id number]) on 02/15/2018 11:48:02 AM Ventricular Rate : 113 BPM Atrial Rate : 226 BPM QRS Duration : 182 ms Q-T Interval : 356 ms QTC Calculation(Bezet) : 488 ms P Patterson : 252 degrees R Patterson : 268 degrees T Patterson : 0 degrees Test Reason : Location : 60 : A110 5 Overread By : MD LILIBETH, PhD,EVE Edited By : MD LILIBETH, PhD,EVE Referred By : , Acquired by : Modesta ALBRIGHT RN, PROGRESS Observed: 02/14/2018 Status: COMPLETED Source: [place] 5:[address] [facility] REPOSITORY HNO ID: [id number] Author: Michelle Russell Service: Critical Care Author Type: Physician Type: Progress Notes Filed: 02/14/2018 5:07 PM Note Text: Critical Care Attending I have personally performed a face to face assessment of the patient and?have reviewed the PA/NETWORK CONTROL TECHNICIAN note.?My arceo findings?include: Assessment/Plan are 67 y/o female with CHF, A fib, COPD, endometrial cancer who was transferred to [facility] MICU from OSH on 02/11 for further management of acute hypoxic respiratory failure, L pleural effusion, and AFib RVR. Acute respiratory failure: Decreased O2 support since thoracentesis Hemothorax: s/p thoracentesis and IR guided pigtail catheter placement. Etiology not clear: CXR almost complete resolution of effusion EKATERINA: resolving. Afib: uncontrolled rate overnight with hypotension. Started on amiodarone drip. Low LVEF. ? This patient has a high probability of sudden, clinically significant deterioration, which requires the highest level of physician preparedness to intervene urgently. ?I managed/supervised life or organ supporting interventions that required frequent physician assessment. ?I devoted my full attention to the direct care of this patient for the amount of time indicated below. ?Time I spent with family or surrogate(s) is included only if the patient was incapable of providing the necessary information or participating in medical decision making. ?Time devoted to teaching and to any procedures I billed separately is not included. ? Critical Care Documentation:?The patient has the following organ/system impairment(s): ?Respiratory failure (Acute) ? Time spent providing critical care services: ?35?minutes. ? SIGNATURE: Michelle Russell MD [facility] PAGER:[phone] DATE of SERVICE: 02/14/18 TIME of SERVICE: 2pm CASE MANAGEM Observed: 02/14/2018 Status: COMPLETED Source: [place] 12:[address] [facility] REPOSITORY HNO ID: [id number] Author: Desi (Rn) Aixa Alfred RN Service: Care Management Author Type: Registered Nurse Type: Care Mgt Progress Note Filed: 02/14/2018 12:50 PM Note Text: CARE MANAGEMENT PROGRESS NOTE SERVICE DATE: 02/14/2018 SERVICE TIME: 12:16 PM LOS: 3 days FREEDOM OF CHOICE GIVEN: Yes explained freedom of choice Provider List: [facility] Facility Needs Prior to Discharge: To Be Determined;Accepting Facility;Home Care Order Met with patient at bedside, discussed that physicians have some concerns re her safety for discharge home. Patient notes she has home health aide, but cannot remember name of home health agency or name of aide. Discussed that physician unsure of patient's needs, may need SNF or may need home health care skilled care. Patient wishes to remain with her current home health aide, and provided phone number to call her aide Phone . Called number, left voice mail requesting return phone call.so that we can obtain name of agency and if they provide SN/PT/OT. Discussed that patient may need SNF prior to going home for safety reasons. List of SNF in patient's zip code ([id number]) left with patient. Patient notes she lives with her , has grab bars on her bathtub and adult children who visit frequently. Patient did take list of SNF for her research but is resistant to going to SNF. TCC to follow. ADDENDUM 12:40 Received return phone call from Devin Boles, patient's home health aide . He reports he works for [employer] [facility] [employer] and notes they do not provide skilled services. Informed patient of the same, she notes she would use home health care [facility] ([phone]). Will need referral placed. Informed patient that Devin (her home health aide) notes that he will not see her while she is getting skilled services, but that he would return once she completes her skilled services. He notes patient just needs to let him know where she is going on discharge and to contact him when her discharge services are complete. Informed patient of same. SIGNATURE: Desi Augustin RN PATIENT NAME: Alba Flores DATE: February 14, 2018 TIME: 12:16 PM PAGER/CONTACT #: [phone] CONSULT PROG Observed: 02/14/2018 Status: COMPLETED Source: [place] 11:[address] [facility] REPOSITORY HNO ID: [id number] Author: Bobby Molina Service: Thoracic Surgery Author Type: Resident Type: Consult Progress Note Filed: 02/14/2018 11:48 AM Note Text: [facility] THORACIC SURGERY CONSULT PROGRESS NOTE Alba Flores [id number] PRIMARY SERVICE: HOSPITAL DAY: # 3 INTERVAL HISTORY No acute events overnight AF with rates > 100 at times L pigtail 730 cc / 24 hours PHYSICAL EXAM BP 109/55 Pulse (!) 131 Temp 36.8 ?C (98.2 ?F) Resp 20 Ht 160 cm (5' 3) Wt (!) 139.9 kg (308 lb 6.8 oz) SpO2 100% BMI 54.63 kg/m? Constitutional: no acute distress Resp: decrease L BS Cardiovascular: regular rate and rhythm GI: soft, non-tender to palpation Neurological/Psychiatric: oriented, no gross focal neurologic deficits DATA Recent Labs 02/13/18 2327 02/13/18 1544 02/13/18 1046 WBC 8.92 10.04 10.48 HB 11.0* 11.9 11.9 HCT 35.6* 38.3 38.5 PLT 175 199 200 Recent Labs 02/13/18 2327 02/12/18 2330 02/11/18 2325 NA 140 139 139 K 3.7 3.1* 4.0 CO2 33* 35* 32* BUN 19 23* 26* CREAT 1.28* 1.32* 1.41* GLUC 157* 105* 112* MG 2.1 2.0 -- IMAGING I personally reviewed: CXR ASSESSMENT AND PLAN 67 yo female with CHF, A fib, COPD, CKD, super morbid obesity (BMI 54), hx of endometrial cancer who was transferred to [facility] MICU from OSH on 02/11 for further management of Afib with RVR, acute hypoxic respiratory failure and L pleural effusion vs hemothorax. - maintain L pigtail to suction for now - please obtain a standing CXR PA/lateral tomorrow to evaluate pleural effusion - aggressive bronchopulmonary hygiene, incentive spirometry Bobby Molina MD Cardiothoracic Surgery PGY2 Thoracic Consult Pager: [phone] XR CHEST 1V FRONTAL Observed: 02/14/2018 Status: F Source: [facility] 7:52 AM [facility] REPOSITORY * * *Final Report* * * DATE OF EXAM: Feb 14 2018 7:52AM [facility] [id number] - XR CHEST 1V FRONTAL PORT / PROCEDURE REASON: Pleural effusion * * * * Physician Interpretation * * * * EXAMINATION: CHEST RADIOGRAPH (PORTABLE SINGLE VIEW AP) Exam Date/Time: 02/14/2018 7:52 AM Clinical History: Pleural effusion, Post-operative / post-procedure assessment, asymptomatic, MQ: XCPMC_5 Comparison: 1 day prior RESULT: See impression. IMPRESSION: Lines, tubes, and devices: Stable position of left basilar percutaneous pleural drain. Lungs and pleura: Small loculated left hydropneumothorax, without significant change. Scattered bibasilar airspace opacities most likely due to atelectasis; these opacities appear of increased attenuation currently, likely due to radiographic technique. No overt pulmonary edema. Cardiomediastinal silhouette: Cardiomediastinal silhouette is enlarged and unchanged. Acid Mixer: PSCB Transcribe Date/Time: Feb 14 2018 1:53P Dictated by : MENA ARRIAGA MD This examination was interpreted and the report reviewed and electronically signed by: MENA ARRIAGA MD on Feb 14 2018 2:01PM EST [id number] PROGRESS Observed: 02/14/2018 Status: COMPLETED Source: [place] 6:[address] [facility] REPOSITORY HNO ID: [id number] Author: Stacy Rodriguez Service: Critical Care Author Type: Nurse Practitioner Type: Progress Notes Filed: 02/14/2018 12:33 PM Note Text: SERVICE DATE: 02/14/2018 SERVICE TIME: 6:55 AM MICU PROGRESS NOTE Admission Date: 02/11/2018 Hospital Day # 3 HPI SUBJECTIVE Interval Events: No Change OBJECTIVE Vital Signs (last filed) Range in last 24h Temp: 36.7 ?C (98.1 ?F) (02/14/18 0800) Temp Min: 36.6 ?C (97.9 ?F) Max: 37 ?C (98.6 ?F) Pulse: (!) 131 (02/14/18 1100) Pulse Min: 81 Max: 134 Resp: 20 (02/14/18 1100) Resp Min: 17 Max: 49 BP: 109/55 (02/14/18 1100) BP Min: 68/41 Max: 149/111 MAP Non Invasive (Mean Arterial Pressure): 73 (02/14/18 1100) MAP Non Invasive (Mean Arterial Pressure) Min: 42 Max: 123 No Data Recorded SpO2: 100 % (02/14/18 1100) SpO2 Min: 93 % Max: 100 % Pain Score: 0/10 (02/14/18 0800) Fluid Balance: Intake/Output Summary (Last 24 hours) at 02/14/18 0659 Last data filed at 02/14/18 06 Gross per 24 hour Intake 1328.6 ml Output 2175 ml Net -846.4 ml Last Weight: (!) 139.9 kg (308 lb 6.8 oz) (02/14/18 0700) Admit Weight: (!) 141.8 kg (312 lb 9.8 oz) (02/11/18 0600) DIET HEART HEALTHY Lines, Drains, and Airways Line Peripheral 02/13/18 0000 Right Forearm 20 Gauge 1 day Peripheral 02/14/18 1142 Short Left Hand 20 Gauge less than 1 day Drain External Urinary Drain 02/12/18 0205 Assessment 2 days Chest Tube 02/13/18 1500 Left Pleural Tube #1 less than 1 day Vent/Oxygen: BiPAP FIO2 (%): 40 PEEP / CPAP (cmH20): 8 Freq (bpm): 10 %FIO2 Min: 40 Max: 40 Physical Examination Performed Oral Mucosa: Moist mucous membranes Eyes: PERRL Neck: Unremarkable; No JVD Cardiovascular: Irregular rhythm Respiratory: Reduced breath sounds bilat Abdomen: Soft, Distended and Positive bowel sounds Extremities: Edema- Yes Peripheral Pulses- Present all extremities Capillary Refill- less than 3 seconds Skin: Abnormalities- Yes Breakdown- Please refer to nursing documentation Neurologic: Awake, oriented, Alert, Follows commands and Moving all extremities Infusion Medications amiodarone Followed by amiodarone Diagnostic tests reviewed today: Most recent labs and imaging results. PATIENT CHECKLIST ? Are restraints necessary: No ? Deep vein thrombosis prophylaxis administered? Yes ? Stress ulcer prophylaxis? No, not indicated. ? Nasogastric tube? No ? Goldstein catheter necessary? No ? Is central line essential? No ? Plan discussed with assigned RN? Yes ? Family updated within last 24 hours? Yes CARE COORDINATION: Patient Summary: 67 year old female with the above past medical history who presents with shortness of breath and atrial flutter from the [facility]. She presented to their ED on 02/04 with complaints of SOB. She was noted to have chronic hypoxic respiratory failure requiring 2L/min supplemental oxygen. Her last pulmonary function testing was completed in 12/2017 and revealed evidence of an irreversible severe mixed ventilatory defect with a symmetric reduction in diffusing capacity. She has a history of atrial flutter with rapid ventricular response. She has undergone at least three prior DC cardioversions, which have been unsuccessful. She was then referred to EP for possible ablation therapy. On 02/04 during her admission to the [facility] ED, this patient was afebrile, tachycardic, and tachypnic. She was placed on IV diuretics initially, and on 02/07 antibiotics (Levaquin) were added for a suspected pneumonia. ? This patient required a thoracentesis at the [facility] on 02/07 to evacuate a left-sided pleural effusion. A total of 150 mL of bloody fluid was drained. The yield may have been limited by loculation. A repeat chest xray on 02/09 showed expansion of this left-sided pleural effusion, and a chest xray on 02/10 showed the same with a pleural effusion on the right side as well. The patient's notes from her OSH describe her atrial flutter as being refractory to IV Lopressor, which is why she was instead put on a Cardizem drip in addition to an amiodarone drip. She was on these at the time of her arrival to our hospital. In addition, despite diuresis of approximately 20 L during her stay at [facility], the care providers there were unable to remove enough fluid to improve the patient's SOB. She was receiving 40 mg PO furosemide BID. They felt like she might benefit from chest tube placement or a VATS at our hospital. The patient was off of Xarelto while at the OSH, and the plan was to start Lovenox at a 1 mg/kg dose BID once any procedures were completely ruled out. Major Interval Events: 02/11: Reuqired BIPAP most of the day for WOB. Bedside US with mod-large L pleural effusion, possibly loculated. Net negative 1.2L, bump in SCr to 1.4. 02/12: Afebrile. Maintained on ~8 hours of BiPAP overnight - currently on 2L NC. A left sided thoracentesis performed yesterday (1.8L extracted, appears to be exudate). CTS prefers to have pigtail placed in IR - scheduled for today. This morning, slightly hypotensive and scheduled Metoprolol was held. 02/13: Overnight, HR ~130s - AFib. After not responding to fluids, pt given Amiodarone bolus and drip. Drip was held an hour after being started. Now, restarting drip to assist with rate control - given HR still ~130s on Cardizem and Metoprolol PO Plan for the Day: - Weaning oxygen as tolerated --- Nasal cannula during the day --- BiPAP HS - CXR daily - F/U with CTS recommendations - Pigtail catheter to -20cm suction - F/U on diagnostic and therapeutic thoracentesis from 02/12/18 --- cytology pending - Maintain Amiodarone drip - Continue Cardizem and Metoprolol for AFib --- holding for HR <60 and/or SBP <90 - Holding therapeutic AC (Xeralto) while evaluation/management of pleural effusion is ongoing - Holding off on further diuresis today --- assessing daily - Monitor UOP, and kidney function - Holding Lisinopril as well - PT/OT, OOB as tolerated - Plan discussed with MICU staff ASSESSMENT AND PLAN Assessment AND Plan, all Hosp Problems Active Hospital Problems as of 02/14/2018 Noted - Resolved Mild COPD (chronic obstructive pulmonary disease) (HCC) 02/11/2018 - Present Current Assessment AND Plan Assessment: COPD (on 2L home O2) Pulmonary function testing was completed in 12/2017 and revealed evidence of an irreversible severe mixed ventilatory defect with a symmetric reduction in diffusing capacity PLAN: - Weaning oxygen as tolerated --- BiPAP HS * (Principal)Respiratory failure (HCC) 02/12/2018 - Present Current Assessment AND Plan Assessment: Respiratory Failure Secondary to L pleural effusion on unknown etiology (DDx HF, bleed, malignancy) OSH CT chest (02/10) with large L pleural effusion 02/12: Left sided thoracentesis --- 1.8L taken, RBC 3.2million, nucleated cells 3,075 02/13: Left sided 14F pigtail catheter placed PLAN: - Weaning oxygen as tolerated --- Nasal cannula during the day --- BiPAP HS - F/U on diagnostic and therapeutic thoracentesis from 02/12/18 - F/U with CTS recommendations - Holding off on further diuresis today --- assessing daily B HTN (hypertension) Unknown - Present Current Assessment AND Plan Assessment: Hx of HTN Home meds: diltiazem, metop, lisinopril PLAN: - Continue Cardizem and Metoprolol --- holding for HR <60 and/or SBP <90 - Holding Lisinopril - Assessing daily for diuresis Atrial fibrillation (HCC) 02/11/2018 - Present Current Assessment AND Plan Assessment: Atrial Fibrillation Home meds: diltiazem, metop Previously on Xarelto which was held d/t vaginal bleeding 02/14: Pt with HR ~130s, initially hemodynamically stable but then B/P 74/42 --- fluids given, started Amiodarone bolus and drip PLAN: - Maintain Amiodarone drip - Continue Cardizem and Metoprolol for AFib --- holding for HR <60 and/or SBP <90 - Holding therapeutic AC (Xeralto) while evaluation/management of pleural effusion is ongoing - F/U appointment made in [facility] as an outpatient --- was scheduled for an ablation prior to this admission C EKATERINA (acute kidney injury) ([facility]) 02/12/2018 - Present Current Assessment AND Plan Assessment: EKATERINA Nonoliguric EKATERINA in setting of diuresis, poor PO intake. Baseline SCr 1.00 PLAN: - Strict IANDO's - Avoiding nephrotoxic agents - Holding Lisinopril G Endometrial cancer, grade I (HCC) 01/17/2015 - Present Current Assessment AND Plan Assessment: Endometrial cancer, grade I S/p TAHBSO 2006 c/b recent vaginal bleeding on Xarelto that resolved with antibiotics and discontinuation of anticoagulation PLAN: - Rule out malignant pleural effusion --- cytology pending from thoracentesis on 02/12/18 - F/U appointment made in [facility] as an outpatient (curb-sided [employer] on this admission) M Obesity, Class III, BMI >= 40 02/11/2018 - Present Medication and Non-Pharmacologic VTE Prophylaxis/Anticoagulants Anticoagulant AND Antiplatelet Medications Start Dose Route Frequency Ordered Stop 02/11/18 0330 heparin 5,000 Units injection 5,000 Units SUBCUTANEOUS EVERY 12 HOURS 02/11/18 0311 -- 02/11/18244 pneumatic compression stockings ([place], [place]) 02/11/18244 activity - mobilize patient ([place]) VTE Prophylaxis: VTE prophylaxis appropriate Plan of care discussed with: Attending, Patient and RN SIGNATURE: Stacy Rodriguez APRN.CNP PATIENT NAME: Alba Flores DATE: February 14, 2018 TIME: 6:55 AM PAGER/CONTACT #: [phone] BASIC METABOLIC PANL Collected: 02/13/2018 Status: F Source: [place] 11:[address] [facility] REPOSITORY TYPE CODE TESTS RESULT OUT OF REFERENCE UNITS RANGE LAB GLU 74-99 mg/dL High Glucose 157 Result Comment: The [place] Diabetes Association (ADA) provides guidance for cutoff values for fasting glucose and random glucose. The ADA defines fasting as no caloric intake for at least 8 hours. Fas ting plasma glucose results between 100 to 125 mg/dL indicate increased risk for diabetes (prediabetes). Fasting plasma glucose results greater than or equal to 126 mg/dL meet the criteria for diagnosis of diabetes. In the absence of unequivocal hyperglycemia, results should be confirmed by repeat testing. In a patient with classic symptoms of hyperglycemia or hyperglycemic crisis, random plasma glucose results greater than or equal to 200 mg/dL meet the criteria for diagnosis of diabetes. Reference: Standards of Medical Care in Diabetes 2016, [place] Diabetes Association. Diabetes Care. 2016.39(Suppl 1). LAB BUN 7-21 mg/dL BUN 19 LAB CRET 0.58-0.96 mg/dL Creatinine High 1.28 LAB NA 136-144 mmol/L Sodium 140 LAB K 3.7-5.1 mmol/L Potassium 3.7 LAB CL 97-105 mmol/L Low Chloride 96 LAB CO2 22-30 mmol/L CO2 High 33 LAB AGAP 9-18 mmol/L Anion Gap 11 LAB CA 8.5-10.2 mg/dL Calcium, Total 8.8 LAB GFRAA eGFR- Amer. 50 LAB GFRNAA . eGFR-All Other Races 41 Result Comment: eGFR (Estimated GFR) Units of measure: mL/min/1.73 meters squared eGFR is derived from the reexpressed MDRD Study equation using the following parameters: serum creatinine, age, gender and race. The creatinine assay has been calibrated to be traceable to IDMS. An eGFR <60 mL/min/1.73m2 for >3 months is consistent with chronic kidney disease. Refer to KDOQI guidelines for clinical interpretation. In patients with unstable renal function, e.g. those with acute kidney injury, the eGFR may not accurately reflect actual GFR. Performed By: #### BMP, MG1, PHOS, CBC #### [facility] [address] [id number] MAGNESIUM Collected: 02/13/2018 Status: F Source: [place] 11:27 [facility] REPOSITORY TYPE CODE TESTS RESULT OUT OF REFERENCE UNITS RANGE LAB MG 1.7-2.3 mg/dL Magnesium 2.1 Performed By: #### BMP, MG1, PHOS, CBC #### [facility] [address] [address] PHOSPHORUS Collected: 02/13/2018 Status: F Source: [place] 11:27 [facility] REPOSITORY TYPE CODE TESTS RESULT OUT OF REFERENCE UNITS RANGE LAB PHOS 2.7-4.8 mg/dL Low Phosphorus 2.6 Performed By: #### BMP, MG1, PHOS, CBC #### [facility] [address] [address] CBC Collected: 02/13/2018 Status: F Source: [place] 11:27 [facility] REPOSITORY TYPE CODE TESTS RESULT OUT OF REFERENCE UNITS RANGE LAB WBC 3.70-11.00 k/uL WBC 8.92 LAB RBC 3.90-5.20 m/uL Low RBC 3.87 LAB HGB 11.5-15.5 g/dL Low Hemoglobin 11.0 LAB HCT 36.0-46.0 % Low Hematocrit 35.6 LAB MCV 80.0-100.0 fL MCV 92.0 LAB MCH 26.0-34.0 pG MCH 28.4 LAB MCHC 30.5-36.0 g/dL MCHC 30.9 LAB RDWCV 11.5-15.0 % RDW-CV 13.2 LAB PLTCT 150-400 k/uL Platelet Count 175 LAB MPV 9.0-12.7 fL MPV 10.6 LAB ABSNUC <0.01 k/uL Absolute nRBC <0.01 Performed By: #### BMP, MG1, PHOS, CBC #### [facility] [address] [place], [place] [address] XR CHEST 1V FRONTAL Observed: 02/13/2018 Status: F Source: [facility] 3:[address] [facility] REPOSITORY * * *Final Report* * * DATE OF EXAM: Feb 13 2018 3:57PM ROSY [id number] - XR CHEST 1V FRONTAL PORT / PROCEDURE REASON: Post-operative / post-procedure assessment, asymptomatic * * * * Physician Interpretation * * * * EXAMINATION: CHEST RADIOGRAPH (PORTABLE SINGLE VIEW AP) Exam Date/Time: 02/13/2018 3:57 PM Clinical History: Post-operative / post-procedure assessment, asymptomatic, MQ: XCPMC_5 Comparison: Earlier same day at 8:19 AM RESULT: See impression. IMPRESSION: Lines, tubes, and devices: Interval placement of left percutaneous pigtail pleural drainage catheter. Lungs and pleura: Interval decrease in left pleural effusion, probably without resolution. Left basilar hydropneumothorax presumed. Persistent left basilar atelectatic component presumed, though likely improved. Mild right peridiaphragmatic atelectatic opacities noted. Cardiomediastinal silhouette: Presumed stable, enlarged cardiomediastinal silhouette. Rotated to the right. Other: . Acid Mixer: MYLA Transcribe Date/Time: Feb 13 2018 5:06P Dictated by : NICO CHAKRABORTY MD This examination was interpreted and the report reviewed and electronically signed by: NICO CHAKRABORTY MD on Feb 13 2018 5:07PM EST [id number] CBC Collected: 02/13/2018 Status: F Source: [place] 3:44 PM [facility] REPOSITORY TYPE CODE TESTS RESULT OUT OF REFERENCE UNITS RANGE LAB WBC 3.70-11.00 k/uL WBC 10.04 LAB RBC 3.90-5.20 m/uL RBC 4.18 LAB HGB 11.5-15.5 g/dL Hemoglobin 11.9 LAB HCT 36.0-46.0 % Hematocrit 38.3 LAB MCV 80.0-100.0 fL MCV 91.6 LAB MCH 26.0-34.0 pG MCH 28.5 LAB MCHC 30.5-36.0 g/dL MCHC 31.1 LAB RDWCV 11.5-15.0 % RDW-CV 13.2 LAB PLTCT 150-400 k/uL Platelet Count 199 LAB MPV 9.0-12.7 fL MPV 11.1 LAB ABSNUC <0.01 k/uL Absolute nRBC <0.01 Performed By: #### CBC #### [facility] [address] [place], [place] [address] PROCEDURE Observed: 02/13/2018 Status: COMPLETED Source: [place] 3:[address] [facility] REPOSITORY HNO ID: [id number] Author: Marcelina Mcgovern (Rt) Service: Interventional Radiology Author Type: Superintendent Nonselling Type: Procedures Filed: 02/13/2018 3:16 PM Note Text: BRIEF OPERATIVE / PROCEDURE NOTE LOG ID: [id number] SURGERY/PROCEDURE DATE: 02/13/2018 INCISION/PROCEDURE START TIME: 2:23 PM INCISION CLOSE/PROCEDURE END TIME: 2:41 PM SURGEON(S)/PROCEDURALIST(S) AND SENIOR SOFTWARE ENGINEERING MANAGER(S): Surgeon(s) and Role: * Jeffrey Lehman - Primary MIGUEL Mcgovern SURGERY/PROCEDURE(S): Left Chest Tube Insertion with Moderate Sedation ANESTHESIA: Procedural Sedation FINDINGS: Successful insertion of left-sided, 14 F pigtail catheter into the left pleural space. Catheter secured with 0 Prolene suture, connected to drainage and sterile dressing applied. No complications. ESTIMATED BLOOD LOSS: 0 ml SPECIMENS: None COMPLICATIONS: None PRE-OP/PRE-PROCEDURE DIAGNOSIS: Hx left pleural effusion. POST-OP/POST-PROCEDURE DIAGNOSIS: Hx left pleural effusion. SIGNATURE: MIGUEL Mcgovern PATIENT NAME: Alba Flores DATE: February 13, 2018 TIME: 3:14 PM PAGER/CONTACT #: [phone] IR CHEST TUBE Observed: 02/13/2018 Status: F Source: [place] INSERT 2:41 PM [facility] REPOSITORY * * *Final Report* * * DATE OF EXAM: Feb 13 2018 2:41PM [facility] [id number] - IR CHEST TUBE INSERT / PROCEDURE REASON: Hemothorax * * * * Physician Interpretation * * * * PROCEDURE: CHEST TUBE INSERTION HISTORY: Patient is a 67-year-old female with a past medical history of chronic obstructive pulmonary disease, hypertension, atrial fibrillation, acute kidney injury and endometrial cancer grade I. Patient has a moderate-sized left pleural effusion of unknown etiology which was sampled yesterday via thoracentesis. Patient presents to IR today for placement of a left-sided chest tube for management of the pleural effusion. CONSENT: Risks, benefits, treatment options, potential complications and personnel to be involved were discussed (including the risks of radiation exposure, contrast and anesthesia administration, and any equipment needed for the procedure to ensure best possible outcome) with the patient and all questions were answered and consent was obtained prior to procedure. MEDICATION RECONCILIATION: The patient's medications and allergies were reviewed in the electronic medical record and reconciled to the proposed procedure/treatment. CARROLL-PROCEDURE DISCUSSION: The appropriate elements of the pre-procedure discussion, safety check list and sign-out were performed. TIME OUT: A time out was performed immediately prior to procedure start with the nursing, and interventional team, correctly identifying the name, date of , procedure, anatomy (including marking of site and side if applicable), patient position, procedure consent form, relevant diagnostic and radiology test results, antibiotic administration if applicable, safety precautions, and procedure-specific equipment needs. Start of procedure: 1423 End of procedure: 1441 Patient position: Patient lying down, right side down Anesthesia: After establishing pulse oximetry, BP and EKG monitoring by the Radiology nurse, moderate sedation with Versed and Fentanyl was administered. Intra-service time (monitoring for moderate sedation): 29 minutes Patient monitoring: I personally supervised and directed an independent trained observer who assisted in monitoring the patient?s level of consciousness and physiological status throughout the procedure. Local anesthesia: 2 % lidocaine ANTIBIOTICS: None Antibiotic infusion start time: N/A ADDITIONAL MED: None CONTRAST DOSE: None IMAGE GUIDANCE: Access was obtained into the target lesion under direct sonographic and fluoroscopic visualization. A sonographic image was obtained and placed into the permanent archive for documentation. FLUOROSCOPIC RADIATION SUMMARY: Plane A, Air Kerma: 14.3 mGy Dose Area Product (DAP): 5024.3 mGy*cm2 Fluoro Time: 1:00 min:sec Radiation dose exceed 5 Gy: No If radiation dose exceeded 5 Gy, was counseling and instructional brochure provided: N/A TECHNIQUE: The patient's left lateral chest was prepped and draped using all elements of maximal sterile barrier technique (cap, mask, sterile gown, sterile gloves, a large sterile sheet, hand hygiene and cutaneous antisepsis), sterile ultrasound gel and sterile ultrasound probe covers. After local anesthesia, a 5 F skater catheter was advanced into the fluid collection under ultrasound guidance. An Amplatz guidewire was advanced through the catheter and the catheter was removed over the wire. Sequential dilation using a 12 F and 14 F dilator was performed over the wire. A 14 F x 25 cm pigtail drainage catheter was advanced over the guidewire. The guidewire and inner stylette of the catheter were removed and the pigtail was formed within the posterior/inferior aspect of the left pleural space. The catheter was secured with 0 Prolene suture, connected to drainage and a sterile dressing was applied. RESULT: Ultrasound demonstrated a left-sided, moderate sized pleural effusion without septation. 1. Successful insertion of a 14 F x 25 cm pigtail drainage catheter into the left posterior/inferior pleural space. 2. Fluid drained from the pleural space was blood-tinged. LATERALITY: Left Pleural space INDWELLING DEVICE: 14 F x 25 cm Flexima pigtail drainage catheter The patient tolerated the procedure well. There were no significant complications and no other complications during the procedure. CONCLUSION: The patient was comfortable and was transferred to the patient's previous bed in stable condition. Estimated Blood Loss: Minimal Number and Type of Removed Specimens: 0: N/A ATTENDING RADIOLOGIST: Jeffrey Lehman M.D. SENIOR SOFTWARE ENGINEERING MANAGER: MIGUEL Mcgovern The procedure was performed by the: the student assistant, and the attending radiologist personally supervised the entire procedure. The attending radiologist performed the following procedural activities: Personal supervision. IMPRESSION: 1. SUCCESSFUL INSERTION OF A 14 F X 25 CM PIGTAIL DRAINAGE CATHETER INTO THE LEFT POSTERIOR/INFERIOR PLEURAL SPACE. 2. ULTRASOUND DEMONSTRATED A LEFT-SIDED, MODERATE SIZED PLEURAL EFFUSION WITHOUT SEPTATION. Acid Mixer: MYLA Transcribe Date/Time: Feb 13 2018 3:19P Dictated by : RT SHORTY This examination was interpreted and the report reviewed and electronically signed by: JEFFREY LHEMAN MD on Feb 13 2018 4:39PM EST PROGRESS Observed: 02/13/2018 Status: COMPLETED Source: [place] 2:26 PM [facility] REPOSITORY HNO ID: [id number] Author: Michelle Russell Service: Critical Care Author Type: Physician Type: Progress Notes Filed: 02/13/2018 2:29 PM Note Text: I have personally performed a face to face assessment of the patient and?have reviewed the PA/NETWORK CONTROL TECHNICIAN note.?My arceo findings include: Assessment/Plan are 67 y/o female with CHF, A fib, COPD, endometrial cancer who was transferred to [facility]U from [facility] on 02/11 for further management of acute hypoxic respiratory failure, L pleural effusion, and AFib RVR. Acute respiratory failure: Requiring less O2 support since thoracentesis Large L pleural effusion: thoracentesis done yesterday. Consistent with hemothorax. Etiology not clear EKATERINA: resolving. IR to place large pigtail pleural catheter Thoracic surgery is consulted. Afib: rate control Repeat CBC. No change in hemodynamic profile. ? This patient has a high probability of sudden, clinically significant deterioration, which requires the highest level of physician preparedness to intervene urgently. I managed/supervised life or organ supporting interventions that required frequent physician assessment. I devoted my full attention to the direct care of this patient for the amount of time indicated below. Time I spent with family or surrogate(s) is included only if the patient was incapable of providing the necessary information or participating in medical decision making. Time devoted to teaching and to any procedures I billed separately is not included. ? Critical Care Documentation: The patient has the following organ/system impairment(s): Respiratory failure (Acute) ? Time spent providing critical care services: 35 minutes. ? SIGNATURE: Michelle Russell MD [facility] PAGER:[phone] DATE of SERVICE: 02/13/18 TIME of SERVICE: 1pm PT ED Observed: 02/13/2018 Status: COMPLETED Source: [place] 1:29 PM [facility] REPOSITORY HNO ID: [id number] Author: Sara Atwood RN Service: Nursing Author Type: Registered Nurse Type: Patient Education Filed: 02/13/2018 1:30 PM Note Text: AMBULATORY PATIENT EDUCATION TOPIC: Survival Skills: SURVIVAL SKILLS: chest tube READINESS TO LEARN COGNITIVE ABILITY: Alert and oriented MOTIVATION TO LEARN: Critically Ill FAMILY SUPPORT: Unable to assess - Family not present INSTRUCTION PROVIDED TO: Patient and Caregiver PATIENT LEARNS BEST BY: Multiple Methods FACTORS AFFECTING LEARNING: Emotional Factors: Anxious PHYSICAL LIMITATIONS AFFECTING LEARNING: Critically ill LEARNING RESPONSE DIAGNOSIS: Pleural effusion METHOD OF INSTRUCTION: Individual instruction Verbal instruction PATIENT / FAMILY RESPONSE: Information received as demonstrated by interest and questions FOLLOW-UP PLAN: Follow-up with Primary Care SUPPLEMENTAL MATERIAL: None REFERRAL (RECOMMENDATION): None Electronically Signed By: Sara Atwood RN In Department: [facility] [id number] CBC Collected: 02/13/2018 Status: F Source: [place] 10:46 AM [facility] REPOSITORY TYPE CODE TESTS RESULT OUT OF REFERENCE UNITS RANGE LAB WBC 3.70-11.00 k/uL WBC 10.48 LAB RBC 3.90-5.20 m/uL RBC 4.16 LAB HGB 11.5-15.5 g/dL Hemoglobin 11.9 LAB HCT 36.0-46.0 % Hematocrit 38.5 LAB MCV 80.0-100.0 fL MCV 92.5 LAB MCH 26.0-34.0 pG MCH 28.6 LAB MCHC 30.5-36.0 g/dL MCHC 30.9 LAB RDWCV 11.5-15.0 % RDW-CV 13.1 LAB PLTCT 150-400 k/uL Platelet Count 200 LAB MPV 9.0-12.7 fL MPV 11.3 LAB ABSNUC <0.01 k/uL Absolute nRBC <0.01 Performed By: #### CBC #### [facility] [address] [place], [place] [address] XR CHEST 1V FRONTAL Observed: 02/13/2018 Status: F Source: [facility] 8:28 AM [facility] REPOSITORY * * *Final Report* * * DATE OF EXAM: Feb 13 2018 8:28AM [facility] [id number] - XR CHEST 1V FRONTAL PORT / PROCEDURE REASON: Pleural effusion * * * * Physician Interpretation * * * * EXAMINATION: CHEST RADIOGRAPH (PORTABLE SINGLE VIEW AP) Exam Date/Time: 02/13/2018 8:28 AM Clinical History: Pleural effusion, MQ: XCPMC_5 Comparison: 1 day prior RESULT: See impression. IMPRESSION: Lines, tubes, and devices: None. Lungs and pleura: There is vascular redistribution without overt edema. There are bilateral pleural effusions, left greater than right. There are associated bibasilar airspace opacities most commonly secondary to nonspecific atelectasis or pneumonia/aspiration. No pneumothorax is identified. Cardiomediastinal silhouette: Stable cardiomediastinal silhouette. The cardiac silhouette appears enlarged. Other: Overall, little interval change since prior exam. Acid Mixer: MYLA Transcribe Date/Time: Feb 13 2018 2:18P Dictated by : MAURILIO CHANDLER MD This examination was interpreted and the report reviewed and electronically signed by: MAURILIO CHANDLER MD on Feb 13 2018 2:19PM EST [id number] PROGRESS Observed: 02/13/2018 Status: COMPLETED Source: [place] 6:50 AM [facility] REPOSITORY HNO ID: [id number] Author: Stacy Rodriguez Service: Critical Care Author Type: Nurse Practitioner Type: Progress Notes Filed: 02/13/2018 12:56 PM Note Text: SERVICE DATE: 02/13/2018 SERVICE TIME: 6:50 AM MICU PROGRESS NOTE Admission Date: 02/11/2018 Hospital Day # 2 HPI SUBJECTIVE Interval Events: No Change OBJECTIVE Vital Signs (last filed) Range in last 24h Temp: 36.9 ?C (98.4 ?F) (02/13/18 0800) Temp Min: 36.6 ?C (97.9 ?F) Max: 37.4 ?C (99.3 ?F) Pulse: 86 (02/13/18 1000) Pulse Min: 80 Max: 120 Resp: 22 (02/13/18 1000) Resp Min: 17 Max: 54 BP: 81/51 (02/13/18 1000) BP Min: 81/51 Max: 121/50 MAP Non Invasive (Mean Arterial Pressure): 60 (02/13/18 1000) MAP Non Invasive (Mean Arterial Pressure) Min: 56 Max: 93 No Data Recorded SpO2: 96 % (02/13/18 1000) SpO2 Min: 92 % Max: 98 % Pain Score: 0/10 (02/13/18 0800) Fluid Balance: Intake/Output Summary (Last 24 hours) at 02/13/18 0659 Last data filed at 02/13/18 0600 Gross per 24 hour Intake 14 ml Output 1740 ml Net -1726 ml Last Weight: (!) 141 kg (310 lb 13.6 oz) (02/13/18 0500) Admit Weight: (!) 141.8 kg (312 lb 9.8 oz) (02/11/18 0600) DIET NPO Lines, Drains, and Airways Line Peripheral 02/13/18 0000 Right Forearm 20 Gauge less than 1 day Peripheral 02/13/18 0000 Short Right Forearm 20 Gauge less than 1 day Drain External Urinary Drain 02/12/18 0205 Assessment 1 day Vent/Oxygen: 6L NC / BiPAP HS Physical Examination Performed Oral Mucosa: Moist mucous membranes Eyes: PERRL Neck: Unremarkable; No JVD Cardiovascular: Irregular rhythm Respiratory: Reduced breath sounds bilat Abdomen: Soft and Distended Extremities: Edema- Yes Peripheral Pulses- Present all extremities Capillary Refill- less than 3 seconds Skin: Abnormalities- No Breakdown- Please refer to nursing documentation Neurologic: Awake, oriented, Alert, Follows commands and Moving all extremities Diagnostic tests reviewed today: Most recent labs and imaging results. PATIENT CHECKLIST ? Are restraints necessary: No ? Deep vein thrombosis prophylaxis administered? No. Contraindicated. ? Stress ulcer prophylaxis? No, not indicated. ? Nasogastric tube? No ? Goldstein catheter necessary? No ? Is central line essential? No ? Plan discussed with assigned RN? Yes ? Family updated within last 24 hours? Yes CARE COORDINATION: Patient Summary: 67 year old female with the above past medical history who presents with shortness of breath and atrial flutter from the [facility]. She presented to their ED on 02/04 with complaints of SOB. She was noted to have chronic hypoxic respiratory failure requiring 2L/min supplemental oxygen. Her last pulmonary function testing was completed in 12/2017 and revealed evidence of an irreversible severe mixed ventilatory defect with a symmetric reduction in diffusing capacity. She has a history of atrial flutter with rapid ventricular response. She has undergone at least three prior DC cardioversions, which have been unsuccessful. She was then referred to EP for possible ablation therapy. On 02/04 during her admission to the [facility] ED, this patient was afebrile, tachycardic, and tachypnic. She was placed on IV diuretics initially, and on 02/07 antibiotics (Levaquin) were added for a suspected pneumonia. ? This patient required a thoracentesis at the [facility] on 02/07 to evacuate a left-sided pleural effusion. A total of 150 mL of bloody fluid was drained. The yield may have been limited by loculation. A repeat chest xray on 02/09 showed expansion of this left-sided pleural effusion, and a chest xray on 02/10 showed the same with a pleural effusion on the right side as well. The patient's notes from her OSH describe her atrial flutter as being refractory to IV Lopressor, which is why she was instead put on a Cardizem drip in addition to an amiodarone drip. She was on these at the time of her arrival to our hospital. In addition, despite diuresis of approximately 20 L during her stay at [facility], the care providers there were unable to remove enough fluid to improve the patient's SOB. She was receiving 40 mg PO furosemide BID. They felt like she might benefit from chest tube placement or a VATS at our hospital. The patient was off of Xarelto while at the OSH, and the plan was to start Lovenox at a 1 mg/kg dose BID once any procedures were completely ruled out. Major Interval Events: 02/11: Reuqired BIPAP most of the day for WOB. Bedside US with mod-large L pleural effusion, possibly loculated. Net negative 1.2L, bump in SCr to 1.4. 02/12: Afebrile. Maintained on ~8 hours of BiPAP overnight - currently on 2L NC. A left sided thoracentesis performed yesterday (1.8L extracted, appears to be exudate). CTS prefers to have pigtail placed in IR - scheduled for today. This morning, slightly hypotensive and scheduled Metoprolol was held. Plan for the Day: - Weaning oxygen as tolerated - Nasal cannula during the day --- BiPAP HS - CXR daily - F/U on diagnostic and therapeutic thoracentesis from 02/12/18 - F/U with CTS recommendations - F/U with [facility] Radiology read of OSH CT Chest on 02/10/18 - Scheduled for pigtail catheter in IR today --- per CTS, will require a 12-14F - Rule out malignant pleural effusion --- cytology pending from thoracentesis - F/U with IR recommendations post procedure - Holding off on further diuresis today --- assessing daily - Monitor UOP, and kidney function - Holding Lisinopril as well - Continue (lowered dose) of Metoprolol for AFib --- holding for HR <60 and/or SBP <90 - Holding Cardizem and Xeralto (on for AFib also) - NPO for procedure - PT/OT, OOB as tolerated - Plan discussed with MICU staff ASSESSMENT AND PLAN Assessment AND Plan, all Hosp Problems Active Hospital Problems as of 02/13/2018 Noted - Resolved Mild COPD (chronic obstructive pulmonary disease) ([facility]) 02/11/2018 - Present Current Assessment AND Plan Assessment: COPD (on 2L home O2) PLAN: - Supplemental O2 as needed * (Principal)Respiratory failure ([facility]) 02/12/2018 - Present Current Assessment AND Plan Assessment: Respiratory Failure Secondary to L pleural effusion on unknown etiology (DDx HF, bleed, malignancy) OSH CT chest (02/10) with large L pleural effusion COPD --- pulmonary function testing was completed in 12/2017 and revealed evidence of an irreversible severe mixed ventilatory defect with a symmetric reduction in diffusing capacity PLAN: - Weaning oxygen as tolerated - Nasal cannula during the day --- BiPAP HS - CXR daily - F/U on diagnostic and therapeutic thoracentesis from 02/12/18 - F/U with CTS recommendations - Scheduled for pigtail catheter in IR today --- per CTS, will require a 12-14F - F/U with IR recommendations post procedure - Holding off on further diuresis today --- assessing daily B HTN (hypertension) Unknown - Present Current Assessment AND Plan Assessment: Hx of HTN Home meds: diltiazem, metop, lisinopril PLAN: - Continue (lowered dose) of Metoprolol for AFib --- holding for HR <60 and/or SBP <90 - Holding Cardizem and Xeralto (on for AFib also) Atrial fibrillation ([facility]) 02/11/2018 - Present Current Assessment AND Plan Assessment: Atrial Fibrillation Home meds: diltiazem, metop Previously on Xarelto which was held d/t vaginal bleeding PLAN: - Continue (lowered dose) of Metoprolol for AFib --- holding for HR <60 and/or SBP <90 - Holding Cardizem also - Holding therapeutic AC (Xeralto) while evaluation/management of pleural effusion is ongoing - F/U appointment made in [facility] as an outpatient --- was scheduled for an ablation prior to this admission C EKATERINA (acute kidney injury) ([facility]) 02/12/2018 - Present Current Assessment AND Plan Assessment: EKATERINA Nonoliguric EKATERINA in setting of diuresis, poor PO intake. Baseline SCr 1.00 PLAN: - Strict IANDO's - Avoiding nephrotoxic agents - Holding Lisinopril G Endometrial cancer, grade I (HCC) 01/17/2015 - Present Current Assessment AND Plan Assessment: Endometrial cancer, grade I S/p TAHBSO 2006 c/b recent vaginal bleeding on Xarelto that resolved with antibiotics and discontinuation of anticoagulation PLAN: - Rule out malignant pleural effusion --- cytology pending from thoracentesis on 02/12/18 - F/U appointment made in [facility] as an outpatient M Obesity, Class III, BMI >= 40 02/11/2018 - Present Medication and Non-Pharmacologic VTE Prophylaxis/Anticoagulants Anticoagulant AND Antiplatelet Medications Start Dose Route Frequency Ordered Stop 02/11/18 0330 heparin 5,000 Units injection 5,000 Units SUBCUTANEOUS EVERY 12 HOURS 02/11/18 0311 -- 02/11/18 0245 pneumatic compression stockings ([place], [place]) 02/11/18 0245 activity - mobilize patient ([place], [place]) VTE Prophylaxis: Yes Plan of care discussed with: Attending, Patient and RN SIGNATURE: Stacy Rodriguez APRN.CNP PATIENT NAME: Alba Flores DATE: February 13, 2018 TIME: 6:50 AM PAGER/CONTACT #: [phone] CBC Collected: 02/13/2018 Status: F Source: [place] 6:[address] [facility] REPOSITORY TYPE CODE TESTS RESULT OUT OF REFERENCE UNITS RANGE LAB WBC 3.70-11.00 k/uL WBC 10.21 LAB RBC 3.90-5.20 m/uL RBC 4.09 LAB HGB 11.5-15.5 g/dL Hemoglobin 11.9 LAB HCT 36.0-46.0 % Hematocrit 37.5 LAB MCV 80.0-100.0 fL MCV 91.7 LAB MCH 26.0-34.0 pG MCH 29.1 LAB MCHC 30.5-36.0 g/dL MCHC 31.7 LAB RDWCV 11.5-15.0 % RDW-CV 13.6 LAB PLTCT 150-400 k/uL Platelet Count 206 LAB MPV 9.0-12.7 fL MPV 12.1 LAB ABSNUC <0.01 k/uL Absolute nRBC <0.01 Performed By: #### CBC #### [place] [address] [place] [id number] CBC Collected: 02/12/2018 Status: F Source: [place] 11:30 PM [facility] REPOSITORY TYPE CODE TESTS RESULT OUT OF REFERENCE UNITS RANGE LAB WBC 3.70-11.00 k/uL WBC High 12.00 LAB RBC 3.90-5.20 m/uL RBC 4.07 LAB HGB 11.5-15.5 g/dL Hemoglobin 11.5 LAB HCT 36.0-46.0 % Hematocrit 38.3 LAB MCV 80.0-100.0 fL MCV 94.1 LAB MCH 26.0-34.0 pG MCH 28.3 LAB MCHC 30.5-36.0 g/dL Low MCHC 30.0 LAB RDWCV 11.5-15.0 % RDW-CV 12.8 LAB PLTCT 150-400 k/uL Platelet Count 198 LAB MPV 9.0-12.7 fL MPV 10.8 LAB ABSNUC <0.01 k/uL Absolute nRBC <0.01 Performed By: #### CBC, LD6, BMP, MG1, PHOS #### [place] [address] [place] [address] LD Collected: 02/12/2018 Status: F Source: [facility] 11:30 PM [facility] REPOSITORY TYPE CODE TESTS RESULT OUT OF RANGE REFERENCE UNITS LAB LD 135-214 U/L LD 166 Performed By: #### CBC, LD6, BMP, MG1, PHOS #### [place] [address] BASIC METABOLIC PANL Collected: 02/12/2018 Status: F Source: [place] 11:30 PM [facility] REPOSITORY TYPE CODE TESTS RESULT OUT OF REFERENCE UNITS RANGE LAB GLU 74-99 mg/dL High Glucose 105 Result Comment: The [place] Diabetes Association (ADA) provides guidance for cutoff values for fasting glucose and random glucose. The ADA defines fasting as no caloric intake for at least 8 hours. Fas ting plasma glucose results between 100 to 125 mg/dL indicate increased risk for diabetes (prediabetes). Fasting plasma glucose results greater than or equal to 126 mg/dL meet the criteria for diagnosis of diabetes. In the absence of unequivocal hyperglycemia, results should be confirmed by repeat testing. In a patient with classic symptoms of hyperglycemia or hyperglycemic crisis, random plasma glucose results greater than or equal to 200 mg/dL meet the criteria for diagnosis of diabetes. Reference: Standards of Medical Care in Diabetes 2016, [place] Diabetes Association. Diabetes Care. 2016.39(Suppl 1). LAB BUN 7-21 mg/dL BUN High 23 LAB CRET 0.58-0.96 mg/dL Creatinine High 1.32 LAB NA 136-144 mmol/L Sodium 139 LAB K 3.7-5.1 mmol/L Low Potassium 3.1 LAB CL 97-105 mmol/L Low Chloride 90 LAB CO2 22-30 mmol/L CO2 High 35 LAB AGAP 9-18 mmol/L Anion Gap 14 LAB CA 8.5-10.2 mg/dL Calcium, Total 9.2 LAB GFRAA eGFR- Amer. 48 LAB GFRNAA . eGFR-All Other Races 40 Result Comment: eGFR (Estimated GFR) Units of measure: mL/min/1.73 meters squared eGFR is derived from the reexpressed MDRD Study equation using the following parameters: serum creatinine, age, gender and race. The creatinine assay has been calibrated to be traceable to IDMS. An eGFR <60 mL/min/1.73m2 for >3 months is consistent with chronic kidney disease. Refer to KDOQI guidelines for clinical interpretation. In patients with unstable renal function, e.g. those with acute kidney injury, the eGFR may not accurately reflect actual GFR. Performed By: #### CBC, LD6, BMP, MG1, PHOS #### [facility] [address] [place] [address] MAGNESIUM Collected: 02/12/2018 Status: F Source: [place] 11:30 PM [facility] REPOSITORY TYPE CODE TESTS RESULT OUT OF REFERENCE UNITS RANGE LAB MG 1.7-2.3 mg/dL Magnesium 2.0 Performed By: #### CBC, LD6, BMP, MG1, PHOS #### [facility] [address] [place] [address] PHOSPHORUS Collected: 02/12/2018 Status: F Source: [place] 11:30 PM [facility] REPOSITORY TYPE CODE TESTS RESULT OUT OF REFERENCE UNITS RANGE LAB PHOS 2.7-4.8 mg/dL Phosphorus 2.7 Result Comment: Result rechecked. Performed By: #### CBC, LD6, BMP, MG1, PHOS #### [facility] [address] [place], [place] [address] CONSULT Observed: 02/12/2018 Status: COMPLETED Source: [place] 4:[address] [facility] REPOSITORY HNO ID: [id number] Author: Crissy Fischer Service: Thoracic Surgery Author Type: Resident Type: Consults Filed: 02/12/2018 5:13 PM Note Text: [facility] TH[facility] SUR[facility]ERY CONSULT NOTE Alba F Sandra [phone] Requesting Provider: Dr. Russell Cardiothoracic Physician: Willie Amaya MD Admit Date: 02/11/2018 LOS : 1 Chief Complaint: Left effusion vs hemothorax HPI: (document at least 4 of these elements) Location: left Quality: acute Severity: n/a Duration: n/a Timing: n/a Context: On Xarelto Modifying factors: None Associated signs and symptoms: Progressive dyspnea x 1 week prior to admission Unintentional weight loss over last 3 months: No 67 yo female with CHF, A fib, COPD, CKD, super morbid obesity (BMI 54), hx of endometrial cancer who was transferred to [facility] MICU from OSH on 02/11 for further management of acute hypoxic respiratory failure, L pleural effusion, and AFib RVR. Patient presented to [facility] on 02/04 with 1 week history of progressive dyspnea, orthopnea and was found to have a left pleural effusion which was drained with thoracentesis (150ml bloody fluid reportedly). The effusion recurred and the patient was transferred to [facility] for further management. Patient is s/p second thoracentesis today with 1800ml of bloody fluid. Thoracic Surgery consulted for recommendations regarding recurrent effusion/hemothorax. Patient denies hx of pleural effusions. She was recently diagnosed with Afib in September and started on Xarelto. Denies trauma to the chest. Former smoker (30 years ago, smoked for 5-6 years). No alcohol use. PAST MEDICAL HISTORY: PAST MEDICAL HISTORY Diagnosis Date - Atrial flutter (HCC) - Borderline diabetes 12/2014 - COPD (chronic obstructive pulmonary disease) (HCC) - Endometrial cancer, grade I (HCC) 12/2014 - GERD (gastroesophageal reflux disease) - HTN (hypertension) 12/2014 - Morbid obesity with BMI of 60.0-69.9, adult ([facility]) - CECILIA (obstructive sleep apnea) - Osteopenia PAST SURGICAL HISTORY: PAST SURGICAL HISTORY Procedure Laterality Date - APPENDECTOMY - LAP, SUPRACERVIAL HYSTERECTOMY W/ TUBEANDOV, <250G 2014 - TUBAL LIGATION HX FAMILY HISTORY: FAMILY HISTORY Problem Relation Age of Onset - COPD Mother - Heart Mother - Heart Father - Colon Cancer Sister SOCIAL HISTORY: Social History Substance Use Topics - Smoking status: Former Smoker Packs/day: 1.00 Years: 5.00 Types: Cigarettes Quit date: 04/17/1984 - Smokeless tobacco: Never Used Comment: still smokes in the home - Alcohol use Yes Comment: rarely MEDICATIONS: Prior to Admission Medications: rivaroxaban (XARELTO) 20 mg tablet Take 1 tablet by mouth DAILY AT [address] (PROTONIX) 20 mg tablet Take 1 tablet by mouth once daily. diltiazem (CARDIZEM) 60 mg tablet Take 1 tablet by mouth three times daily. metoprolol tartrate, short acting, (LOPRESSOR) 50 mg tablet Take 1 tablet by mouth twice daily. calcium carbonate-vitamin D3 500-100 mg-unit chewable tablet Take 1 tablet by mouth once daily. Menthol-Zinc Oxide (CALMOSEPTINE) 0.44-20.6 % Apply 1 application to affected area twice daily. OXYGEN, HOME THERAPY, 2 L/min by Nasal Cannula route as directed. omeprazole (PRILOSEC) 20 mg capsule Take 1 capsule by mouth once daily. DOCOSAHEXANOIC ACID/EPA (FISH OIL ORAL) Take by mouth. nystatin (NYSTOP) powder Apply 1 application to affected area three times daily. aspirin 81 mg chewable tablet Take 1 tablet by mouth once daily. Patient is taking daily since she can't afford Xarelto lisinopril (ZESTRIL, PRINIVIL) 20 mg tablet Take 1.5 tablets by mouth once daily. ALLERGIES: ALLERGIES Allergen Reactions - Asa [Aspirin] GI Upset Chemical Exposure: No Asbestos Exposure No COMPLETE REVIEW OF SYSTEMS Constitutional: No weight loss, malaise or fevers. HEENT: Negative for frequent or significant headaches Resp: Negative for cough, wheezing, or shortness of breath Cardiovascular: Negative for chest pain, leg swelling or palpitations GI: Negative for abdominal discomfort, blood in stools or black stools or change in bowel habits : No history of dysuria, frequency, or incontinence Musculoskeletal: Negative for joint pain or swelling, back pain or muscle pain Endo: Negative for cold or heat intolerance, polyuria, polydipsia and goiter Neurologic: No history or headaches, syncope, paralysis, seizures or tremors Integumentary: Negative for lesions, rash, and itching. Pain: Negative for pain, history of chronic pain, or current treatment for a chronic pain condition Additional systems reviewed: No additional systems reviewed PHYSICAL EXAM Constitutional: Well developed, Obese and No acute distress HEENT: No lesions Resp: Decreased breath sounds and Respiratory effort: normal Cardiovascular: Irregularly irregular, normal S1 and S2 GI: Soft Integumentary: Warm Musculoskeletal: Mild venostasis changes of BLE Neurological/Psychiatric: Oriented to time, place AND person and Alert Additional systems reviewed: No additional systems reviewed DATA: Laboratory: Recent Labs 02/12/18 1327 02/11/18 2325 02/11/18 0310 WBC -- 9.23 12.02* HB -- 12.4 12.6 HCT 33.9* 40.3 39.2 PLT -- 203 203 Recent Labs 02/11/18 2325 02/11/18 0310 NA 139 139 K 4.0 3.3* BUN 26* 21 CREAT 1.41* 1.33* GLUC 112* 113* MG -- 2.0 Radiology: 02/12/2018 (post-thoracentesis) IMPRESSION: Lines, tubes, and devices: ?None. Lungs and pleura: ?There is a small to medium-sized left pleural effusion, which appears decreased in size in the interval. ?Correlate for interval thoracentesis. ?Adjacent opacity at the left lung base is most commonly due to atelectasis although superimposed pneumonia/aspiration in this region is not excluded. ?Mild atelectasis at the right lung base. ? No pulmonary edema. ?No substantial pneumothorax. Cardiomediastinal silhouette: ?The cardiomediastinal silhouette is enlarged, incompletely assessed as the left heart border remains partially obscured. I have personally reviewed the following images/data: Chest X-ray and CT scan Impression: 67 yo female with CHF, A fib, COPD, CKD, super morbid obesity (BMI 54), hx of endometrial cancer who was transferred to [facility] MICU from OSH on 02/11 for further management of Afib with RVR, acute hypoxic respiratory failure and L pleural effusion vs hemothorax. Plan: -Recommend imaging guided pigtail catheter placement, largest bore catheter 12-14Fr recommended -Will continue to follow Discussed with staff SIGNATURE: Crissy Fischer MD PAGER: [phone] DATE of SERVICE: 02/12/2018 TIME of SERVICE: 4:59 PM CBC Collected: 02/12/2018 Status: F Source: [place] 4:55 PM [facility] REPOSITORY TYPE CODE TESTS RESULT OUT OF REFERENCE UNITS RANGE LAB WBC 3.70-11.00 k/uL WBC High 12.62 LAB RBC 3.90-5.20 m/uL RBC 4.34 LAB HGB 11.5-15.5 g/dL Hemoglobin 12.3 LAB HCT 36.0-46.0 % Hematocrit 39.6 LAB MCV 80.0-100.0 fL MCV 91.2 LAB MCH 26.0-34.0 pG MCH 28.3 LAB MCHC 30.5-36.0 g/dL MCHC 31.1 LAB RDWCV 11.5-15.0 % RDW-CV 13.1 LAB PLTCT 150-400 k/uL Platelet Count 180 LAB MPV 9.0-12.7 fL MPV 11.4 LAB ABSNUC <0.01 k/uL Absolute nRBC <0.01 Performed By: #### CBC, LD6, MAGY, TP #### [facility] [address] [place] [id number] LD Collected: 02/12/2018 Status: F Source: [facility] 4:55 PM [facility] REPOSITORY TYPE CODE TESTS RESULT OUT OF RANGE REFERENCE UNITS LAB LD 135-214 U/L High LD 216 Performed By: #### CBC, LD6, MAGY, TP #### [facility] [address] [place] [address] TROPONIN T Collected: 02/12/2018 Status: F Source: [place] 4:55 PM [facility] REPOSITORY TYPE CODE TESTS RESULT OUT OF REFERENCE UNITS RANGE LAB TROPT 0.000-0.029 ng/mL Troponin T <0.010 Performed By: #### CBC, LD6, MAGY, TP #### [facility] [address] [place], [place] [address] PROTEIN, TOTAL Collected: 02/12/2018 Status: F Source: [place] 4:[address] [facility] REPOSITORY TYPE CODE TESTS RESULT OUT OF RANGE REFERENCE UNITS LAB TP 6.3-8.0 g/dL Protein, 6.5 Total Performed By: #### CBC, LD6, MAGY, TP #### [facility] [address] [place], [place] [address] XR CHEST 1V FRONTAL Observed: 02/12/2018 Status: F Source: [place] PORT 1:[address] [facility] REPOSITORY * * *Final Report* * * DATE OF EXAM: Feb 12 2018 1:44PM ROSY [id number] - XR CHEST 1V FRONTAL PORT / PROCEDURE REASON: Post-operative / post-procedure assessment, asymptomatic * * * * Physician Interpretation * * * * EXAMINATION: CHEST RADIOGRAPH (PORTABLE SINGLE VIEW AP) Exam Date/Time: 02/12/2018 1:44 PM Clinical History: Post-operative / post-procedure assessment, asymptomatic, MQ: [id number] Comparison: 02/12/2018 8:24 RESULT: See impression. IMPRESSION: Lines, tubes, and devices: None. Lungs and pleura: There is a small to medium-sized left pleural effusion, which appears decreased in size in the interval. Correlate for interval thoracentesis. Adjacent opacity at the left lung base is most commonly due to atelectasis although superimposed pneumonia/aspiration in this region is not excluded. Mild atelectasis at the right lung base. No pulmonary edema. No substantial pneumothorax. Cardiomediastinal silhouette: The cardiomediastinal silhouette is enlarged, incompletely assessed as the left heart border remains partially obscured. Other: . Acid Mixer: PSCB Transcribe Date/Time: Feb 12 2018 4:06P Dictated by : WYATT RINALDI MD This examination was interpreted and the report reviewed and electronically signed by: WYATT RINALDI MD on Feb 12 2018 4:08PM EST [id number] Collected: 02/12/2018 Status: F Source: [place] 1:[address] [facility] REPOSITORY TYPE CODE TESTS RESULT OUT OF REFERENCE UNITS RANGE LAB HCT 36.0-46.0 % Low Hematocrit 33.9 Result Comment: Result rechecked. Reference range not available. THORACENTESIS BODY FLUID Performed By: #### HCT #### [place] [address] [place], [place] [address] Observed: 02/12/2018 Status: F Source: [place] BODY FLUID CULT/STN 1:27 PM [facility] REPOSITORY Sp. Request/Comment: - Specimen received in sterile container. Specimen received already planted. FAN AND BRANDY Smear Result - No organisms seen No Polymorphonuclear Leukocytes Culture Result - No growth 5 days Performed By: #### BFCUL #### [address] [address] Observed: 02/12/2018 Status: F Source: [place] AFB CULT AND STAIN 1:27 PM [facility] REPOSITORY Sp. Request/Comment: - Specimen received in sterile container. Specimen received already planted. FAN AND BRANDY Smear Result - No acid fast bacilli seen by fluorochrome stain Culture Result - No Acid Fast Bacilli isolated after 43 days Performed By: #### AFC #### [address] [address] GLUCOSE, BODY FLUID Collected: 02/12/2018 Status: F Source: [place] 1:26 PM [facility] REPOSITORY TYPE CODE TESTS RESULT OUT OF RANGE REFERENCE UNITS LAB BFGLUC See Comment mg/dL Abnormal Alert 91 Glucose, Body Fluid Result Comment: Synovial fluid: Synovial fluid glucose measurement may be useful in classifying various joint disorders. A concurrent plasma glucose measurement should be performed to determine the gluc ose plasma minus glucose synovial fluid difference, which is normally <= 10.0 mg/dL. Artificial lowering of synovial fluid glucose, due to glycolytic action of leukocytes, may result from analyses that occur more than one hour from the time of collection. Reference: 1. CLSI. Analysis of Body Fluids in Clinical Chemistry Approved Guideline. CLSI document C49A. PAOLA Klein: Clinical Laboratory Standards [place]: 2007. This test was developed and its performance characteristics determined by [facility] Pathology and Laboratory Medicine [place] ([facility] It has not been cleared or approved by the FDA. [facility] is regulated under CLIA as qualified to perform high-complexity testing. This test is used for clinical purposes. It should not be regarded as investigational or for research. Performed By: #### BFGLUC, BFLDH, BFPROT, FCHOL, FLALB, FLPH, CCBF #### [facility] [address] [place], [place] [address] LDH, BODY FLUID Collected: 02/12/2018 Status: F Source: [place] 1:[address] [facility] REPOSITORY TYPE CODE TESTS RESULT OUT OF RANGE REFERENCE UNITS LAB [facility] See Comment U/L Abnormal Alert LDH, 153 Body Fluid Result Comment: Pleural fluids: Pleural fluid lactate dehydrogenase (LDH) measurements may be useful for classifying pleural effusions as exudates. A ratio of pleural fluid LDH to a concurrent serum LDH > 0.6 is suggestive of exudate. Peritoneal fluids: Ascitic fluid LDH measurements may aid in characterizing secondary peritonitis and should be interpreted along with other clinical and laboratory information. Synovial fluids: Synovial fluid LDH measurements may be useful as an inflammatory marker for various arthritic conditions and should be interpreted along with other clinical and laboratory information. Reference: 1. CLSI. Analysis of Body Fluids in Clinical Chemistry Approved Guideline. CLSI document C49A. Ernie PA: Clinical Laboratory Standards [place]: 2007. Reference: 2. Nereida HUGGINS, Carlos Van. Body fluid analysis: clinical utility and applicability of published studies to guide interpretation of today's laboratory testing in serous fluids. Crit R ev Clin Lab Sci, 2013:50(4,5):107 to 124. Reference: 3. Tyrese Garay, Clayton Van, Abhishek HUGGINS. Lactate dehydrogenase activity and its isoenzymes in serum and synovial fluid of patients with rheumatoid arthritis and osteoarthritis. J Rheumatol. 1992:19:529 to 533. This test was developed and its performance characteristics determined by [facility] Pathology and Laboratory Medicine [place] ([facility]). It has not been cleared or approved by the FDA. [facility] is regulated under CLIA as qualified to perform high-complexity testing. This test is used for clinical purposes. It should not be regarded as investigational or for research. Performed By: #### BFGLUC, BFLDH, BFPROT, FCHOL, FLALB, FLPH, CCBF #### [facility] [address] [place], [place] [address] PROTEIN, BODY FLUID Collected: 02/12/2018 Status: F Source: [place] 1:26 PM [facility] REPOSITORY TYPE CODE TESTS RESULT OUT OF RANGE REFERENCE UNITS LAB BFPROT See Comment g/dL Abnormal Alert 5.0 Protein, Body Fluid Result Comment: Serous fluids: Effusions are the accumulation of clinically detected fluid in any of the serous cavities. Effusions are further into transudates and exudates, which aid in dete rmining the etiology of the effusion. Transudate: Body fluid total protein measurement < 3.0 g/dL. A ratio of serous fluid total protein to a concurrent serum total protein < 0.5 indicates a transudate. Exudate: Body fluid total protein measurement >= 3.0 g/dL. A ratio of serous fluid total protein to a concurrent serum total protein >= 0.5 indicates an exudate. Reference: 1. CLSI. Analysis of Body Fluids in Clinical Chemistry Approved Guideline. CLSI document C49A. PAOLA Klein: Clinical Laboratory Standards [place]: 2007. This test was developed and its performance characteristics determined by [facility] Pathology and Laboratory Medicine [place] ([facility]). It has not been cleared or approved by the FDA. -[facility] is regulated under CLIA as qualified to perform high-complexity testing. This test is used for clinical purposes. It should not be regarded as investigational or for research. Performed By: #### BFGLUC, BFLDH, BFPROT, FCHOL, FLALB, FLPH, CCBF #### [facility] [address] [place], [place] [address] CHOLESTEROL,BODY FLD Collected: 02/12/2018 Status: F Source: [place] 1:26 [facility] REPOSITORY TYPE CODE TESTS RESULT OUT OF RANGE REFERENCE UNITS LAB [facility] See Comment mg/dL Abnormal Alert 91 Cholesterol ,Body Fld Result Comment: (NOTE) SYNOVIAL FLUIDS: Synovial fluid cholesterol measurement may be useful in classifying various joint disorders. The reference range for adult synovial fluid cholesterol measurement is less than or equal to 65% of the concurrent plasma cholesterol measurement. SEROUS FLUIDS: Serous fluid cholesterol measurement may be useful in determining the etiology of the effusion. A serous fluid cholesterol measurement > 200 mg/dL is suggestive of a pseudochylous effusion. A serous fluid cholesterol measurement greater than or equal to 45 mg/dL is suggestive of an exudate. A serous fluid cholesterol measurement < 45 mg/dL is suggestive of a transudate. Reference: 1. CLSI. Analysis of Body Fluids in Clinical Chemistry; Approved Guideline. CLSI document C49-A. PAOLA Klein: Clinical Laboratory Standards [place]; 2007. This test was developed and its performance characteristics determined by [facility] Pathology and Laboratory Medicine [place] ([facility]). It has not been cleared or approved by the FDA. [facility] is regulated under CLIA as qualified to perform high-complexity testing. This test is used for clinical purposes. It should not be regarded as investigational or for research. LAB FTCTYP Thoracentesis Fluid Fluid type Performed By: #### BFGLUC, BFLDH, BFPROT, FCHOL, FLALB, FLPH, CCBF #### [facility] [address] [id number] ALBUMIN, FLUID Collected: 02/12/2018 Status: F Source: [place] 1:26 PM [facility] REPOSITORY TYPE CODE TESTS RESULT OUT OF RANGE REFERENCE UNITS LAB FALB See Comment g/dL Abnormal Alert 3.1 Albumin, Fluid Result Comment: Body Fluid Albumin may be used in classifying ascitic fluid into high-gradient or low-gradient fluids as determined by the serum-ascites albumin gradient, which is calculated as (serum a lbumin) - (ascites albumin). The serum and fluid specimens should be drawn with a minimal intervening time interval to appropriately analyze the gradient. Gradients greater than or equal to 1.1 g/dL are considered high, which reflects a high hydrostatic pressure, commonly caused by: cirrhosis or other processes generting portal hypertension. In samples where gradients are less than 1.1 g/dL, ascites generated from conditions without portal hypertension should be considered. Reference: 1. CLSI. Analysis of Body Fluids in Clinical Chemistry Approved Guideline. CLSI document C49A. PAOLA Klein: Clinical Laboratory Standards [place]: 2007. Reference: 2. Abbey GGAE. Serum to ascites albumin gradient. UpToDate. 2015. Accessed on July 29, 2015. This test was developed and its performance characteristics determined by [facility] Pathology and Laboratory Medicine [place] ([facility]). It has not been cleared or approved by the FDA. [facility] is regulated under CLIA as qualified to perform high-complexity testing. This test is used for clinical purposes. It should not be regarded as investigational or for research. LAB FTALB Thoracentesis Fluid Fluid Performed By: #### BFGLUC, BFLDH, BFPROT, FCHOL, FLALB, FLPH, CCBF #### [facility] [address] [address] PH, FLUID Collected: 02/12/2018 Status: F Source: [place] 1:26 PM [facility] REPOSITORY TYPE CODE TESTS RESULT OUT OF RANGE REFERENCE UNITS LAB FPH pH, Fluid 7.47 Result Comment: No reference range has been established for this specimen type. >4 Hours old and not under mineral oil. LAB FTPH Thoracentesis Fluid Fluid Performed By: #### BFGLUC, BFLDH, BFPROT, FCHOL, FLALB, FLPH, CCBF #### [place] [address] CELL COUNT/DIFF BF Collected: 02/12/2018 Status: F Source: [place] 1:26 PM [facility] REPOSITORY TYPE CODE TESTS RESULT OUT OF RANGE REFERENCE UNITS LAB BFSITE Site Thoracentesis Fluid LAB BFCOL Bloody Color LAB BFCLR Clear Turbid Abnormal Clarity Alert LAB BFSCOL Arin Suprntnt Color LAB BFSCLR Clear Clear Suprntnt Clarity LAB BFRBC /uL [id number] RBC LAB BFWBC /uL 3075 Nucleated Cells, BF LAB BFCOM BF SEE COMMENT Comment Result Comment: Test Not Indicated LAB BFREV BF SEE Review COMMENT Result Comment: Test Not Indicated LAB BFSLNM Slide [id number] Number BF LAB BFNEUT % Neut% 50 LAB BFLYMP % 11 Lymph% LAB BFMONO % [place]% 8 LAB BFMACR % 5 Macro% LAB BFMESO % Meso% 25 LAB BFEOSN % 1 Eosin% Performed By: #### BFGLUC, BFLDH, BFPROT, FCHOL, FLALB, FLPH, CCBF #### [facility] [address] [id number] PROCEDURE Observed: 02/12/2018 Status: COMPLETED Source: [place] 12:59 PM [facility] REPOSITORY HNO ID: [id number] Author: Marcus Lucas Service: Critical Care Author Type: Physician Type: Procedures Filed: 02/12/2018 2:39 PM Note Text: BEDSIDE PROCEDURE NOTE THORACENTESIS Performed by: NATHEN FOREMAN ([facility]) Authorized by: MARCUS LUCAS Consent/[place] Protocol Written Consent Obtained: Yes Sign In Communication: Completed Time Out completed: Team confirms correct patient, procedure, side/site, position (if applicable) and completion AND review of fire risk assessment/protocols (if appropriate) Affirmation of Time Out: Yes Sign Out Discussion: Yes Pre-procedure Details: PPE Used: Sterile gloves, sterile gown, mask and cap The area was prepped with chlorhexidine (Chloroprep) and allowed to dry. A sterile partial body drape was applied following the usual aseptic technique. Medications: Local anesthesia Local Anesthesia (see MAR): Lidocaine 1% Procedure Details: Procedure Purpose: Diagnostic and therapeutic Indication: Pleural effusion Patient Position: Sitting Imaging Guidance Used: Yes, image captured Depth to Fluid Pocket: 10 cm Location: Left posterior Intercostal Space: 8th Approach: Percutaneous Puncture Method: Dhzp-hcc-plqzcj catheter The thoracentesis catheter was inserted. Contact was made with the periosteum of the rib and was walked over the superior aspect of the rib and advanced until the pleural space was entered and bloody fluid was returned. The needle was removed. Drainage Amount (ml): 1800 Drainage Device: No Catheter (post-procedure): Removed Reason for Stopping Procedure: Patient discomfort Post-procedure X-ray: Pending Number of attempts: 1 Post-procedure Details: Patient tolerated the procedure well with no immediate complications Estimated Blood Loss: Scant Specimens Sent: Cell count with diff, pH, total protein, triglycerides, gram stain, glucose, culture, cytology, LDH and ADA SIGNATURE: Nathen Foreman MD PATIENT NAME: Alba Flores DATE: February 12, 2018 TIME: 12:59 PM PAGER/CONTACT #: I was present and supervised the entire procedure Marcus Lucas MD Pager : [phone] February 12, 2018 PROGRESS Observed: 02/12/2018 Status: COMPLETED Source: [place] 12:32 PM [facility] REPOSITORY HNO ID: [id number] Author: Michelle Russell Service: Critical Care Author Type: Physician Type: Progress Notes Filed: 02/12/2018 4:11 PM Note Text: Attending Note I have personally performed a face to face assessment of the patient and have reviewed the PA/NETWORK CONTROL TECHNICIAN note. My arceo findings include: Assessment/Plan are 67 yo female with CHF, A fib, COPD, endometrial cancer who was transferred to [facility] MICU from OSH on 02/11 for further management of acute hypoxic respiratory failure, L pleural effusion, and AFib RVR. ACute respiratory failure: BIPAP and high flow O2 support Large L pleural effusion: thoracentesis today. Possible hemothorax vs malignancy, vs infection. EKATERINA: hold lasix and monitor lytes Close observation in ICU ?DVT prophylaxis L thoracentesis done and was bloody with pleural fluid HCT similar to peripheral blood. Suspect hemothorax. Thoracic surgery consulted. Will likely need large bore CT. Repeat CBC. No change in hemodynamic profile. This patient has a high probability of sudden, clinically significant deterioration, which requires the highest level of physician preparedness to intervene urgently. I managed/supervised life or organ supporting interventions that required frequent physician assessment. I devoted my full attention to the direct care of this patient for the amount of time indicated below. Time I spent with family or surrogate(s) is included only if the patient was incapable of providing the necessary information or participating in medical decision making. Time devoted to teaching and to any procedures I billed separately is not included. Critical Care Documentation: The patient has the following organ/system impairment(s): Respiratory failure (Acute) Time spent providing critical care services: 35 minutes. SIGNATURE: Michelle Russell MD [facility] PAGER:[phone] DATE of SERVICE: 02/12/18 TIME of SERVICE: 11am CASE MGT INIT Observed: 02/12/2018 Status: COMPLETED [facility] 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 Last Admission Date: none Is this Within the Past 30 days? No Advance Directive: Current Advance Directive: Health Care Power of Industrial Design Engineer In Chart: No Cruise Consultant Attempted to Assist with AD Completion: Yes Action: Education Provided;Patient Unwilling Health Literacy: 1. How often do you need to have someone help you when you read instructions, pamphlets, or other written material from your doctor or pharmacy? Rarely - 2 2. How confident are you filling out medical forms by yourself? Extremely - 1 If Patient scores > 3 on either question, the following interventions were put into place: Patient did not score > 3 FUNCTIONAL AND COGNITIVE/BEHAVIORAL PRIOR TO ADMISSION: Baseline Mental Status: Alert AND Oriented, Person, Place , Time and Situation Functional Status: Independent Does Patient Currently Receive Any Community Services or Home Care? None Equipment Prior to Admission: Hospital Bed Oxygen 2 liters per minute Tub bench/chair Walker Has the Patient Been in a Fpc Facility in the Past 30 days? No SOCIAL: Living Arrangement: Home Lives With: Spouse Financial Resources: Retired Primary Contact: Extended Emergency Contact Information Primary Emergency Contact: GarfieldJessica zamarripa Mobile Relation: Daughter Secondary Emergency Contact: SandraSharan Mobile Relation: Relative Supportive: Yes Other Important Patient Contacts: None Caregiver Assessment: Caregiver is ready, willing and able to meet the patient's needs as recommended by the inter-professional team? TBD Patient's transition needs and plan for meeting these needs: TBD Does the patient have an acute stroke diagnosis, or has the patient had a stroke during this admission? No Medication Adherence: I am convinced of the importance of my prescription medication: Agree mostly - 0 I worry that my prescription medication will do more harm than good to me Disagree mostly - 0 I feel financially burdened by my [id number]-[id number] expenses for my prescription medication: Disagree mostly -0 Patient is categorized as low risk < 2 Are you interested in bedside delivery of your medications? Yes Food Concerns: In the Last Month, Have You had Trouble Getting Food? No trouble getting food During the Last Month, Have You Worried Whether Your Food Would Run Out Before You Had Enough Money to Buy More? No Is the Patient Psychosocially Complex? Yes, refer to Social Work. ASSESSMENT AND PLAN: Medical Needs: 2 or more chronic diseases, Obesity and Respiratory Insufficiency - Oxygen Psychosocial Needs: None FREEDOM OF CHOICE EXPLAINED: CM will discuss this with pt when it is more appropriate POTENTIAL TRANSITION PLANS To Be Determined SW met with pt at bedside to complete this assessment. SW introduced herself and explained SW role. Pt is a 67 year old female who transferred from [facility] to [facility] MICU for further management of care Pt has hx of: CHF, COPD, obesity, HTN, GERD and Afib. Pt is currently on 6L NC. Pt reported, I have home I use 2L O2 at home (unable to recall O2 provider), I have hospital bed, shower chair, I have home health aides but I can't remember name of CABLE SUPERVISOR. I was supposed to get a BiPAP machine but I haven't received it yet, I'm supposed to go to the hospital to sign for it and then I can pick it up from them but it hasn't happened yet. SW used active listening skills and provided emotional support. Needs TBD, waiting for PT/OT recs, if pt continues to require increased O2 requirements, pt will need destat study complete prior to discharge. SW will continue to follow. SIGNATURE: JASEN Han PATIENT NAME: Alba Flores DATE: February 12, 2018 TIME: 12:00 PM PAGER/CONTACT #: [phone] CYTOLOGY Observed: 02/12/2018 Status: F Source: [place] 9:45 AM [facility] REPOSITORY Specimen originated from [facility] Specimen #: [id number] Submitting Physician: MICHELLE RUSSELL SPECIMEN SUBMITTED A: PLEURAL FLUID, LEFT (THINPREP AND CELL BLOCK) FINAL DIAGNOSIS A. PLEURAL FLUID, LEFT (THINPREP AND CELL BLOCK) Negative for malignant cells. Aidan Crowley M.D. (Electronic Signature) GROSS DESCRIPTION 15cc cloudy red fluid STAINS A: PLEURAL FLUID, LEFT (THINPREP AND CELL BLOCK) THIN PREP Non-Senior Statistical Programmer, CELL BLOCK, H&E, Initial Date of Report: 02/14/2018 Date of Procedure: 02/12/2018 Date of Receipt: 02/12/2018 Submitted by: MICHELLE RUSSELL Location: [facility] Diagnostic interpretation performed at [facility], [address] [place] [address]. PROGRESS Observed: 02/12/2018 Status: COMPLETED Source: [place] 9:[address] [facility] REPOSITORY HNO ID: [id number] Author: Morgan Winter Service: Critical Care Author Type: Physician Hvac Controls Technician Type: Progress Notes Filed: 02/12/2018 9:40 AM Note Text: SERVICE DATE: 02/12/2018 SERVICE TIME: 9:39 AM MICU PROGRESS NOTE Admission Date: 02/11/2018 Hospital Day # 1 SUBJECTIVE Interval Events: No Change OBJECTIVE Vital Signs (last filed) Range in last 24h Temp: 36.4 ?C (97.6 ?F) (02/12/18 0800) Temp Min: 35.9 ?C (96.6 ?F) Max: 36.6 ?C (97.8 ?F) Pulse: 78 (02/12/18 0800) Pulse Min: 77 Max: 124 Resp: 18 (02/12/18 0800) Resp Min: 16 Max: 40 BP: 112/78 (02/12/18 0800) BP Min: 93/61 Max: 135/80 MAP Non Invasive (Mean Arterial Pressure): 91 (02/12/18 0800) MAP Non Invasive (Mean Arterial Pressure) Min: 73 Max: 100 No Data Recorded SpO2: 98 % (02/12/18 0800) SpO2 Min: 96 % Max: 99 % Pain Score: 0/10 (02/12/18 0800) Fluid Balance: Intake/Output Summary (Last 24 hours) at 02/12/18 0659 Last data filed at 02/12/18 0600 Gross per 24 hour Intake 480 ml Output 1700 ml Net -1220 ml Last Weight: (!) 140.4 kg (309 lb 8.4 oz) (02/12/18 0500) Admit Weight: (!) 141.8 kg (312 lb 9.8 oz) (02/11/18 0600) DIET ELECTROLYTE CONTROLLED Lines, Drains, and Airways Line Peripheral 02/11/18 0205 Assessment Short Left Forearm 22 Gauge 1 day Peripheral 02/11/18 0309 Right Forearm 22 Gauge 1 day Drain External Urinary Drain 02/11/18204 Assessment 1 day Vent/Oxygen: BIPAP Physical Examination Performed Oral Mucosa: Dry mucous membranes Eyes: PERRL Cardiovascular: Irregular rhythm Respiratory: Reduced breath sounds (L) Abdomen: Soft, Nontender and Positive bowel sounds Extremities: Edema- No Peripheral Pulses- Present all extremities Capillary Refill- less than 3 seconds Skin: Abnormalities- No Breakdown- See engineering drawings checker Neurologic: Awake, oriented, Alert, Follows commands and Moving all extremities Infusion Medications Diagnostic tests reviewed today: Most recent labs and imaging results. PATIENT CHECKLIST ? Are restraints necessary: No ? Deep vein thrombosis prophylaxis administered? Yes ? Stress ulcer prophylaxis? Yes ? Nasogastric tube? No ? Goldstein catheter necessary? Yes ? Is central line essential? No ? Plan discussed with assigned RN? Yes ? Family updated within last 24 hours? Yes CARE COORDINATION: Patient Summary: 67 yo female with a h/o CHF, A fib, HTN, COPD, endometrial cancer who was transferred to [facility] MICU from OSH on 02/11 for further management of acute hypoxic respiratory failure, L pleural effusion, and AFib RVR. Major Interval Events: 02/11: Reuqired BIPAP most of the day for WOB. Bedside US with mod-large L pleural effusion, possibly loculated. Net negative 1.2L, bump in SCr to 1.4. Plan for the day: Diagnostic and therapeutic thoracentesis Wean BIPAP Hold off on further diuresis today. Monitor UOP, kidney function. Monitor HR, up titrate PO rate control as needed Remains in MICU Discussed with MICU staff ASSESSMENT AND PLAN Overview, Assessment AND Plan, all Hosp Problems Active Hospital Problems as of 02/12/2018 Noted - Resolved Cardiovascular HTN (hypertension) Unknown - Present Current Assessment AND Plan Assessment: Home meds: diltiazem, metop, lisinopril PLAN: - Continue metop for rate control - Resume home antiHTN as needed Atrial fibrillation ([facility]) 02/11/2018 - Present Current Assessment AND Plan Assessment: Home meds: diltiazem, metop. Previously on Xarelto which was held d/t vaginal bleeding PLAN: - Continue metop PO 50 mg Q8H - Monitor HR - Holding therapeutic AC while evaluation/management of pleural effusion is ongoing Pulmonary COPD (chronic obstructive pulmonary disease) ([facility]) 02/11/2018 - Present Current Assessment AND Plan Assessment: On 2L home O2 PLAN: - Supplemental O2 as needed Respiratory failure ([facility]) 02/12/2018 - Present Current Assessment AND Plan Assessment: Secondary to L pleural effusion on unknown etiology (DDx HF, bleed, malignancy). OSH CT chest (02/10) with large L pleural effusion, COPD. PLAN: - Wean supplemental O2/BIPAP as able - Diagnostic and therapeutic thoracentesis today - Hold further diuresis given EKATERINA Nephrology EKATERINA (acute kidney injury) ([facility]) 02/12/2018 - Present Current Assessment AND Plan Assessment: Nonoliguric EKATERINA in setting of diuresis, poor PO intake. Baseline SCr 1.00 PLAN: - Strict IANDO's. Trend BMP. Oncology Endometrial cancer, grade I ([facility]) 01/17/2015 - Present Current Assessment AND Plan Assessment: S/p TAHBSO 2007 c/b recent vaginal bleeding on Xarelto that resolved with antibiotics and discontinuation of anticoagulation PLAN: - Rule out malignant pleural effusion Other Obesity, Class III, BMI >= 40 02/11/2018 - Present Medication and Non-Pharmacologic VTE Prophylaxis/Anticoagulants Anticoagulant AND Antiplatelet Medications Start Dose Route Frequency Ordered Stop 02/11/18 0330 heparin 5,000 Units injection 5,000 Units SUBCUTANEOUS EVERY 12 HOURS 02/11/18 031 -- 02/11/18 024 pneumatic compression stockings ([place], [place]) 02/11/18 024 activity - mobilize patient ([place], [place]) VTE Prophylaxis: VTE prophylaxis appropriate Plan of care discussed with: ICU Team SIGNATURE: Morgan Winter PA-C PATIENT NAME: Alba Flores DATE: February 12, 2018 TIME: 9:39 AM PAGER/CONTACT #: [phone] XR CHEST 1V FRONTAL Observed: 02/12/2018 Status: F Source: [facility] 8:[address] [facility] REPOSITORY * * *Final Report* * * DATE OF EXAM: Feb 12 2018 8:27AM ROSY [id number] - XR CHEST 1V FRONTAL PORT / PROCEDURE REASON: Acute respiratory illness * * * * Physician Interpretation * * * * EXAMINATION: CHEST RADIOGRAPH (PORTABLE SINGLE VIEW AP) Exam Date/Time: 02/12/2018 8:27 AM Clinical History: Acute respiratory illness, MQ: XCPMC_5 Comparison: 1 day prior RESULT: See impression. IMPRESSION: Lines, tubes, and devices: None. Lungs and pleura: A medium to large size left pleural effusion appears stable in size with adjacent opacity throughout the left lung, likely due to atelectasis. Superimposed pneumonia/aspiration in this region is not excluded. Mild atelectasis at the right lung base. No pulmonary edema or pneumothorax. Cardiomediastinal silhouette: Stable cardiomediastinal silhouette although incompletely assessed as the left heart border is partially obscured. Other: . Acid Mixer: PSCB Transcribe Date/Time: Feb 12 2018 10:49A Dictated by : WYATT RINALDI MD This examination was interpreted and the report reviewed and electronically signed by: WYATT RINALDI MD on Feb 12 2018 10:51AM EST [id number] CBC Collected: 02/11/2018 Status: F Source: [place] 11:[address] [facility] REPOSITORY TYPE CODE TESTS RESULT OUT OF REFERENCE UNITS RANGE LAB WBC 3.70-11.00 k/uL WBC 9.23 LAB RBC 3.90-5.20 m/uL RBC 4.35 LAB HGB 11.5-15.5 g/dL Hemoglobin 12.4 LAB HCT 36.0-46.0 % Hematocrit 40.3 LAB MCV 80.0-100.0 fL MCV 92.6 LAB MCH 26.0-34.0 pG MCH 28.5 LAB MCHC 30.5-36.0 g/dL MCHC 30.8 LAB RDWCV 11.5-15.0 % RDW-CV 13.2 LAB PLTCT 150-400 k/uL Platelet Count 203 LAB MPV 9.0-12.7 fL MPV 11.0 LAB ABSNUC <0.01 k/uL Absolute nRBC <0.01 Performed By: #### CBC, BMP #### [facility] [address] [place], [place] [address] BASIC METABOLIC PANL Collected: 02/11/2018 Status: F Source: [place] 11:[address] [facility] REPOSITORY TYPE CODE TESTS RESULT OUT OF REFERENCE UNITS RANGE LAB GLU 74-99 mg/dL High Glucose 112 Result Comment: The [place] Diabetes Association (ADA) provides guidance for cutoff values for fasting glucose and random glucose. The ADA defines fasting as no caloric intake for at least 8 hours. Fas ting plasma glucose results between 100 to 125 mg/dL indicate increased risk for diabetes (prediabetes). Fasting plasma glucose results greater than or equal to 126 mg/dL meet the criteria for diagnosis of diabetes. In the absence of unequivocal hyperglycemia, results should be confirmed by repeat testing. In a patient with classic symptoms of hyperglycemia or hyperglycemic crisis, random plasma glucose results greater than or equal to 200 mg/dL meet the criteria for diagnosis of diabetes. Reference: Standards of Medical Care in Diabetes 2016, [place] Diabetes Association. Diabetes Care. 2016.39(Suppl 1). LAB BUN 7-21 mg/dL BUN High 26 LAB CRET 0.58-0.96 mg/dL Creatinine High 1.41 LAB NA 136-144 mmol/L Sodium 139 LAB K 3.7-5.1 mmol/L Potassium 4.0 Result Comment: Results may be falsely increased due to interference by hemolysis. Suggest reorder as clinically indicated. LAB CL 97-105 mmol/L Low Chloride 90 LAB CO2 22-30 mmol/L CO2 High 32 LAB AGAP 9-18 mmol/L Anion Gap 17 LAB CA 8.5-10.2 mg/dL Calcium, Total 9.2 LAB GFRAA eGFR- Amer. 45 LAB GFRNAA . eGFR-All Other Races 37 Result Comment: eGFR (Estimated GFR) Units of measure: mL/min/1.73 meters squared eGFR is derived from the reexpressed MDRD Study equation using the following parameters: serum creatinine, age, gender and race. The creatinine assay has been calibrated to be traceable to IDMS. An eGFR <60 mL/min/1.73m2 for >3 months is consistent with chronic kidney disease. Refer to KDOQI guidelines for clinical interpretation. In patients with unstable renal function, e.g. those with acute kidney injury, the eGFR may not accurately reflect actual GFR. Performed By: #### CBC, BMP #### [facility] [address] [place], [place] [address] ALLIED HEALTH Observed: 02/11/2018 Status: COMPLETED Source: [place] 3:[address] [facility] REPOSITORY HNO ID: [id number] Author: Gus Morenolain) Ayush Service: Spiritual Care Author Type: Blood Bank Coordinator Type: Allied Health Filed: 02/11/2018 3:45 PM Note Text: The patient was anointed. PROCEDURE Observed: 02/11/2018 Status: COMPLETED Source: [place] 10:12 AM [facility] REPOSITORY HNO ID: [id number] Author: Attila Dsouza (Fel) Service: Critical Care Author Type: Fellow Type: Procedures Filed: 02/11/2018 12:12 PM Note Text: CHEST ULTRASOUND NAME: Alba Flores AGE: [age] year old SERVICE DATE: 02/11/2018 SERVICE TIME: 10:15 AM REASON FOR EXAMINATION: Assessment of Left pleural effusion REQUESTING PHYSICIAN: Kwasi Mariano MD IMPRESSION: Large left sided pleural effusion which appears to be complex with hyperechoic regions within the fluid and possibly loculations TECHNIQUE: Ultrasound of the chest performed bilaterally in semi recumbent using a low frequency probe. STUDY LIMITATIONS: Body habitus RIGHT CHEST: Aeration Pattern: Predominant A-lines Lung Sliding: present Pleural Effusion: absent Comments: Predominantly normal appearing lung LEFT CHEST: Aeration Pattern: Predominant A-lines and Consolidation Lung Sliding: present Pleural Effusion: present Size: large Location: Large effusion occupying more than the lower third of the hemithorax Character: complex, possibly loculated Assessible: Yes Comments: Large left sided pleural effusion which appears to be complex with hyperechoic regions within the fluid and possibly loculations specially posteriorly. The underlying lower lobe is consolidated/atelectatic INTERPRETING PHYSICIAN: Attila Dsozua MD PHONE: [phone] DATE: February 11, 2018 TIME: 10:13 AM HISTORY PHYSICAL Observed: 02/11/2018 Status: COMPLETED Source: [place] 8:36 AM [facility] REPOSITORY HNO ID: [id number] Author: Kwasi Mariano Service: Critical Care Author Type: Physician Type: HANDP Filed: 02/11/2018 12:38 PM Note Text: [facility] STAFF PHYSICIAN NOTE OF PERSONAL INVOLVEMENT IN CARE I have reviewed the history and physical examination obtained and documented by the resident and I personally participated in the arceo components. I have discussed the case and management of the patient's care. The following comments revise or confirm relevant arceo components of the note. IMPRESSION: 67 yo F Obesity BMI > 50 H/o endometrial cancer MICU admission acute on chronic diastolic CHF, acute respiratory failure with hypoxia, afib with RVR, left pleural effusion PLAN: suppl O2 NIPPV as needed D/c diltiazem, amiodarone Start metoprolol US chest Consider repeat left thoracentesis vs left pigtail catheter Patient/Family Updated This patient has a high probability of sudden, clinically significant deterioration, which requires the highest level of physician preparedness to intervene urgently. I managed/supervised life or organ supporting interventions that required frequent physician assessment. I devoted my full attention to the direct care of this patient for the amount of time indicated below. Time I spent with family or surrogate(s) is included only if the patient was incapable of providing the necessary information or participating in medical decision making. Time devoted to teaching and to any procedures I billed separately is not included. Critical Care Documentation: The patient has the following organ/system impairment(s): Acute heart failure (Diastolic) Time spent providing critical care services: 35 minutes. SIGNATURE: Kwais Mariano MD [facility] PAGER:[phone] DATE of SERVICE: 02/11/2018 TIME of SERVICE: 12:37 PM XR CHEST 1V FRONTAL Observed: 02/11/2018 Status: F Source: [facility] 5:34 AM [facility] REPOSITORY * * *Final Report* * * DATE OF EXAM: Feb 11 2018 5:34AM ROSY [id number] - XR CHEST 1V FRONTAL PORT / PROCEDURE REASON: Pulmonary edema * * * * Physician Interpretation * * * * EXAMINATION: CHEST RADIOGRAPH (PORTABLE SINGLE VIEW AP) Exam Date/Time: 02/11/2018 5:34 AM Clinical History: Pulmonary edema, MQ: XCPMC_5 Comparison: Remote CT chest report from 02/04/2015 RESULT: See impression. IMPRESSION: Lines, tubes, and devices: None. Lungs and pleura: Interval development of a medium-sized left pleural effusion with complete opacification of the underlying left lower lobe and lingular segments left upper lobe. Mild atelectasis in the right base. No pneumothorax. Cardiomediastinal silhouette: Heart size is within normal limits, although cardiac silhouette is mildly shifted to the right Other: . Acid Mixer: MYLA Transcribe Date/Time: Feb 11 2018 11:29A Dictated by : KAYODE THOMSON MD This examination was interpreted and the report reviewed and electronically signed by: KAYODE THOMSON MD on Feb 11 2018 11:30AM EST [id number] HISTORY PHYSICAL Observed: 02/11/2018 Status: COMPLETED Source: [place] 3:14 AM [facility] REPOSITORY O ID: [id number] Author: Timoteo (Randa Rodriguez MD Service: Critical Care Author Type: Resident Type: HANDP Filed: 02/11/2018 8:40 AM Note Text: MEDICAL INTENSIVE CARE UNIT HISTORY AND PHYSICAL PRIMARY SERVICE: BINA Alba Miguel Sandra [id number] ADMISSION DATE: 02/11/2018 LENGTH OF STAY: 0 PRIMARY CARE PHYSICIAN: Sanchez Spears MD CHIEF COMPLAINT: Shortness of breath PMH: CHF, COPD, Obesity, HTN, GERD, atrial flutter with RVR HPI: This is a 67 year old female with the above past medical history who presents with shortness of breath and atrial flutter from the [facility]. She presented to their ED on 02/04 with complaints of SOB. She was noted to have chronic hypoxic respiratory failure requiring 2L/min supplemental oxygen. Her last pulmonary function testing was completed in 12/2017 and revealed evidence of an irreversible severe mixed ventilatory defect with a symmetric reduction in diffusing capacity. She has a history of atrial flutter with rapid ventricular response. She has undergone at least three prior DC cardioversions, which have been unsuccessful. She was then referred to EP for possible ablation therapy. On 02/04 during her admission to the [facility] ED, this patient was afebrile, tachycardic, and tachypnic. She was placed on IV diuretics initially, and on 02/07 antibiotics (Levaquin) were added for a suspected pneumonia. This patient required a thoracentesis at the [facility] on 02/07 to evacuate a left-sided pleural effusion. A total of 150 mL of bloody fluid was drained. The yield may have been limited by loculation. A repeat chest xray on 02/09 showed expansion of this left-sided pleural effusion, and a chest xray on 02/10 showed the same with a pleural effusion on the right side as well. The patient's notes from her OSH describe her atrial flutter as being refractory to IV Lopressor, which is why she was instead put on a Cardizem drip in addition to an amiodarone drip. She was on these at the time of her arrival to our hospital. In addition, despite diuresis of approximately 20 L during her stay at [facility], the care providers there were unable to remove enough fluid to improve the patient's SOB. She was receiving 40 mg PO furosemide BID. They felt like she might benefit from chest tube placement or a VATS at our hospital. The patient was off of Xarelto while at the OSH, and the plan was to start Lovenox at a 1 mg/kg dose BID once any procedures were completely ruled out. Medications from the OSH include: - Tylenol 650 mg - Diamox 125 mg BID - Albuterol AND Duonebs - Dulcolax 5 mg - Lasix 40 mg PO BID - Mucinex 500 mg PO BID - Diltiazem drip - Amiodarone drip - Levaquin 750 mg PO daily - started 02/07/18 to 02/10/18 - Ativan 0.5 mg PO Q6hrs PRN - MOM - Metoprolol Tartate 50 mg PO BID + 5 mg IV Q6H PRN for tachycardia - Zofran for nausea PRN - Protonix 20 mg PO daily - Ambien 5 mg QHS - Bipap QHS and oxygen by NC during the daytime History obtained from: Patient and Old records PAST MEDICAL HISTORY: PAST MEDICAL HISTORY Diagnosis Date - Atrial flutter (HCC) - Borderline diabetes 12/2014 - COPD (chronic obstructive pulmonary disease) (HCC) - Endometrial cancer, grade I (HCC) 12/2014 - GERD (gastroesophageal reflux disease) - HTN (hypertension) 12/2014 - Morbid obesity with BMI of 60.0-69.9, adult (HCC) - CECILIA (obstructive sleep apnea) - Osteopenia PAST SURGICAL HISTORY: PAST SURGICAL HISTORY Procedure Laterality Date - APPENDECTOMY - LAP, SUPRACERVIAL HYSTERECTOMY W/ TUBEANDOV, <250G 2015 - TUBAL LIGATION HX FAMILY HISTORY: FAMILY HISTORY Problem Relation Age of Onset - COPD Mother - Heart Mother - Heart Father - Colon Cancer Sister SOCIAL HISTORY: Social History Substance Use Topics - Smoking status: Former Smoker Packs/day: 1.00 Years: 5.00 Types: Cigarettes Quit date: 04/17/1984 - Smokeless tobacco: Never Used Comment: still smokes in the home - Alcohol use Yes Comment: rarely MEDICATIONS: Prior to Admission Medications: rivaroxaban (XARELTO) 20 mg tablet Take 1 tablet by mouth DAILY AT [address] (PROTONIX) 20 mg tablet Take 1 tablet by mouth once daily. diltiazem (CARDIZEM) 60 mg tablet Take 1 tablet by mouth three times daily. metoprolol tartrate, short acting, (LOPRESSOR) 50 mg tablet Take 1 tablet by mouth twice daily. calcium carbonate-vitamin D3 500-100 mg-unit chewable tablet Take 1 tablet by mouth once daily. Menthol-Zinc Oxide (CALMOSEPTINE) 0.44-20.6 % Apply 1 application to affected area twice daily. OXYGEN, HOME THERAPY, 2 L/min by Nasal Cannula route as directed. omeprazole (PRILOSEC) 20 mg capsule Take 1 capsule by mouth once daily. DOCOSAHEXANOIC ACID/EPA (FISH OIL ORAL) Take by mouth. nystatin (NYSTOP) powder Apply 1 application to affected area three times daily. aspirin 81 mg chewable tablet Take 1 tablet by mouth once daily. Patient is taking daily since she can't afford Xarelto lisinopril (ZESTRIL, PRINIVIL) 20 mg tablet Take 1.5 tablets by mouth once daily. Current hospital medications: potassium chloride ER 40 mEq tab(s) (K-DUR, KLOR-CON) 40 mEq ORAL/FEEDING TUBE q 2 H PRN magnesium sulfate in water 4-6 g in sterile water 50 ml 4- 6 g INTRAVENOUS PRN sodium glycerophosphate 45 mmol in NaCl 0.9% 250 mL (GLYCOPHOS) 45 mmol INTRAVENOUS PRN insulin regular human injection (short acting) (NovoLIN R,HumuLIN R) SUBCUTANEOUS q 6 H insulin regular 250 units in NaCl 0.9% 250 mL iv infusion - ICU NOMOGRAM 0.5-30 Units/hr INTRAVENOUS CONTINUOUS insulin regular human iv bolus 2-10 Units 2-10 Units INTRAVENOUS PRN dextrose 50% in water 25-50 mL syringe 12.5-25 g INTRAVENOUS PRN dextrose 40 % 15 g 15 g ORAL PRN glucagon 1 mg injection (GLUCAGEN) 1 mg SUBCUTANEOUS PRN acetaminophen 650 mg tab(s) (TYLENOL) 650 mg ORAL/FEEDING TUBE q 6 H PRN acetaminophen 650 mg suppository (TYLENOL) 650 mg RECTAL q 6 H PRN [START ON 02/12/2018] metoprolol tartrate (short acting) 50 mg tab(s) (LOPRESSOR) [address] BID [address]op[address]ole [address] 20 mg tab(s) (PROTONIX) 20 mg ORAL DAILY heparin 5,000 Units injection 5,000 Units SUBCUTANEOUS q 12 H senna-docusate 8.6-50 mg 1 tablet (SENNA-S) 1 tablet ORAL BID xlvuvsw-lscmzsuce-zfvzhim D3 500 mg(1,250mg) -200 unit 1 tablet 1 tablet ORAL DAILY ALLERGIES: ALLERGIES Allergen Reactions - Asa [Aspirin] GI Upset COMPLETE REVIEW OF SYSTEMS: (Positives in bold.) PAIN ASSESSMENT: Negative for pain, history of chronic pain, or current treatment for a chronic pain condition GENERAL: No weight loss, malaise or fevers HEENT: Negative for frequent or significant headaches, No changes in hearing or vision, no nose bleeds or other nasal problems NECK: Negative for lumps, goiter, pain and significant neck swelling RESPIRATORY: Negative for cough, wheezing or shortness of breath. CARDIOVASCULAR: Negative for chest pain, leg swelling or palpitations. GI: Negative for abdominal discomfort, blood in stools or black stools or change in bowel habits : No history of dysuria, frequency or incontinence MUSCULOSKELETAL: Negative for joint pain or swelling, back pain or muscle pain. SKIN: Negative for lesions, rash, and itching. PSYCH: Negative for sleep disturbance, mood disorder and recent psychosocial stressors. Positive for anxiety. HEMATOLOGY/LYMPHOLOGY Negative for prolonged bleeding, bruising easily or swollen nodes. ENDOCRINE: Negative for cold or heat intolerance, polyuria, polydipsia and goiter. NEURO: No history of headaches, syncope, paralysis, seizures or tremors NET FLUID BALANCE No intake or output data in the 24 hours ending 02/11/18 0448 MEDICATIONS Hospital/inpatient medications reviewed PHYSICAL EXAM: INDWELLING CATHETERS: No central line. Goldstein Catheter: Yes, external urinary drain. Other Lines/Drains: 2x PIVs BP 122/72 Pulse 108 Resp (!) 46 Ht 160 cm (5' 3) SpO2 95% BMI 61.82 kg/m? HEENT: Oral Mucosa: Moist mucous membranes Feeding Tube: No Eyes: PERRLA Neck: Unremarkable; No adenopathy or JVD Cardiovascular: Irregular rhythm and tachycardic Relevant Hemodynamic Data: Respiratory: Reduced breath sounds (R) and Reduced breath sounds (L). Left is worse than Right. The patient was on 5L of oxygen by NC. She is sleeping now on Bipap (28/11 with 40% FiO2) Abdomen: Soft and Distended Extremities: Edema- Yes Peripheral Pulses- Present all extremities Skin: Abnormalities- No Breakdown- No Neurologic: Awake, oriented and Alert NUTRITION: Regular diet Enteral Feeds: No DATA: Laboratory: CBC: Recent Labs 02/11/18309 WBC 12.02* HB 12.6 HCT 39.2 PLT 203 MCV 89.9 RDWCV 13.6 NEUTP 69.4 ABSNEUT 8.34* LYMPHP 16.3 MONOP 12.3 EODINP 1.9 COAG: No results for input(s): APTT, INR in the last 168 hours. BMP: Recent Labs 02/11/18309 GLUC 113* NA 139 K 3.3* CHLOR 91* CO2 32* ANION 16 BUN 21 CREAT 1.33* CHEM: Recent Labs 02/11/18309 ALB 4.0 TPROT 6.7 CA 9.9 MG 2.0 HEPATIC: Recent Labs 02/11/18309 ALKPHOS 94 ALT 18 AST 18 TBILI 0.7 URINALYSIS:No results for input(s): PH, SPGR, UGLUC, UBILI, UKET, UHB, UPROT, UROBIL, UWBC, SSA in the last 168 hours. Invalid input(s): NITR CARDIAC: No results for input(s): CKTEST, CKMB, CKMBP, TROPT, PBNP in the last 168 hours. EKG: most recent image reviewed TELE: most recent recordings reviewed CXR: most recent image reviewed Echocardiogram: most recent image reviewed Cardiac Catheterization: most recent image reviewed Radiology: most recent image reviewed ASSESSMENT AND PLAN: Active Hospital Problems Diagnosis - Atrial fibrillation (HCC) Admission Date: 02/11/2018 Day #: 1 in the MICU. Global Impression: This is a 67 yo female with a PMH of COPD, CECILIA, CHF, and atrial flutter who presents to our hospital with uncontrolled atrial flutter, pleural effusions, and significant shortness of breath from an OSH. System-based Problem List: Respiratory: The patient presently has significant oxygen requirements of 5L by NC (up from 2L at home) and is needing Bipap to sleep at night. This was noted in her outside records to be due to COPD, but may also be due to pulmonary edema and effusions from worsening of her heart failure. Plan 1. Order chest x-ray to characterize pleural effusions 2. Continue oxygen by NC to maintain saturations > 92% 3. Provide Bipap QHS 4. Continue diuresis with furosemide and monitor I/Os 5. Consider thoracentesis for left pleural effusion CV/Pressors: The patient has refractory atrial flutter despite treatment with amiodarone and 3x DC cardioversions at an OSH. Her rate persistently fluctuates from the high 90s to the low 120s. She was taken off of Xarelto for anticoagulation at the OSH in anticipation of a cardiac procedure. The patient reports a history of CHF. Plan 1. Restart BID metoprolol for rate control 2. Provide 5000 U BID subq heparin and transition to weight- based dosing of Lovenox (1 mg/kg) when procedures are ruled out 3. ECHO to characterize extent of heart failure 4. Cardiology consult for guidance on management of refractory a-flutter GI: No acute issues. The patient has an existing diagnosis of GERD. Plan 1. Continue Protonix 20 mg daily ID: This patient was being treated at the OSH for the past three days with Levaquin for a suspected pneumonia based on a CXR that showed consolidation in the RUL. Blood cultures were pending at the OSH at the time that the patient was transferred here. Plan 1. Repeat chest x-ray 2. Request blood culture final results from OSH 3. Assess for clinical and diagnostic signs of infection to determine whether continuing an antibiotic is warranted Renal: The patient's current Cr is 1.33 which is up from 1.05 on 02/05 at the OSH. This may be an EKATERINA caused by aggressive diuresis at the OSH, which was reported to have removed 20 L of fluid in the past week. Plan 1. Continue to monitor kidney function Endo: No acute issues. Neuro/Psych: No acute issues. Eyes/Skin: No acute issues. PATIENT CHECKLIST ? Are restraints necessary: Yes. Order written? Yes ? Deep vein thrombosis prophylaxis administered? No. Contraindicated. ? Stress ulcer prophylaxis? Yes ? Nasogastric tube? No ? Goldstein catheter necessary? Yes ? Is central line essential? No ? Plan discussed with assigned RN? Yes ? Family updated within last 24 hours? Yes Code/Social/Dispo: Code Status: Full Code Case to be discussed with Dr. Kwasi Rodriguez MD PhD, PGY-1 Pager: [phone] Date of Service: February 11, 2018 Time of Service: 3:14 AM CBC AND DIFFERENTIAL Collected: 02/11/2018 Status: F Source: [place] 3:[address] [facility] REPOSITORY TYPE CODE TESTS RESULT OUT OF REFERENCE UNITS RANGE LAB WBC 3.70-11.00 k/uL WBC High 12.02 LAB RBC 3.90-5.20 m/uL RBC 4.36 LAB HGB 11.5-15.5 g/dL Hemoglobin 12.6 LAB HCT 36.0-46.0 % Hematocrit 39.2 LAB MCV 80.0-100.0 fL MCV 89.9 LAB MCH 26.0-34.0 pG MCH 28.9 LAB MCHC 30.5-36.0 g/dL MCHC 32.1 LAB RDWCV 11.5-15.0 % RDW-CV 13.6 LAB PLTCT 150-400 k/uL Platelet Count 203 LAB MPV 9.0-12.7 fL MPV 11.2 LAB ANEUT % Neut% 69.4 LAB AANEUT 1.45-7.50 k/uL Abs Neut High 8.34 LAB ALYMP % Lymph% 16.3 LAB AALYMP 1.00-4.00 k/uL Abs Lymph 1.96 LAB AMONO % [place]% 12.3 LAB AAMONO <0.87 k/uL Abs [place] High 1.48 LAB AEOS % Eosin% 1.9 LAB AAEOS <0.46 k/uL Abs Eosin 0.23 LAB ABASO % Baso% 0.1 LAB AABASO <0.11 k/uL Abs Baso <0.03 LAB AUNRBC 0 /100 WBC NRBCs 0.0 LAB ABNRBC <0.01 k/uL Absolute nRBC <0.01 LAB DTYP DTYPE Auto Diff Performed By: #### CBCDIF, CMP, MG1, PHOS #### [facility] [address] [place], [place] [address] COMP METABOLIC PANEL Collected: 02/11/2018 Status: F Source: [place] 3:[address] [facility] REPOSITORY TYPE CODE TESTS RESULT OUT OF REFERENCE UNITS RANGE LAB TP 6.3-8.0 g/dL Protein, Total 6.7 LAB ALB 3.9-4.9 g/dL Albumin 4.0 LAB CA 8.5-10.2 mg/dL Calcium, Total 9.9 LAB TBIL 0.2-1.3 mg/dL Bilirubin, Total 0.7 LAB ALKP 34-123 U/L Alkaline Phosphatase 94 LAB AST 13-35 U/L AST 18 LAB GLU 74-99 mg/dL Glucose High 113 Result Comment: The [place] Diabetes Association (ADA) provides guidance for cutoff values for fasting glucose and random glucose. The ADA defines fasting as no caloric intake for at least 8 hours. Fas ting plasma glucose results between 100 to 125 mg/dL indicate increased risk for diabetes (prediabetes). Fasting plasma glucose results greater than or equal to 126 mg/dL meet the criteria for diagnosis of diabetes. In the absence of unequivocal hyperglycemia, results should be confirmed by repeat testing. In a patient with classic symptoms of hyperglycemia or hyperglycemic crisis, random plasma glucose results greater than or equal to 200 mg/dL meet the criteria for diagnosis of diabetes. Reference: Standards of Medical Care in Diabetes 2016, [place] [employer] Association. Diabetes Care. 2016.39(Suppl 1). LAB BUN 7-21 mg/dL BUN 21 LAB CRET 0.58-0.96 mg/dL Creatinine High 1.33 LAB NA 136-144 mmol/L Sodium 139 LAB K 3.7-5.1 mmol/L Low Potassium 3.3 LAB CL 97-105 mmol/L Low Chloride 91 LAB CO2 22-30 mmol/L CO2 High 32 LAB AGAP 9-18 mmol/L Anion Gap 16 LAB ALT 7-38 U/L ALT 18 LAB GFRAA eGFR- Amer. 48 LAB GFRNAA . eGFR-All Other Races 40 Result Comment: eGFR (Estimated GFR) Units of measure: mL/min/1.73 meters squared eGFR is derived from the reexpressed MDRD Study equation using the following parameters: serum creatinine, age, gender and race. The creatinine assay has been calibrated to be traceable to IDMS. An eGFR <60 mL/min/1.73m2 for >3 months is consistent with chronic kidney disease. Refer to KDOQI guidelines for clinical interpretation. In patients with unstable renal function, e.g. those with acute kidney injury, the eGFR may not accurately reflect actual GFR. Performed By: #### CBCDIF, CMP, MG1, PHOS #### [place] [phone] MAGNESIUM Collected: 02/11/2018 Status: F Source: [place] 3:10 AM [facility] REPOSITORY TYPE CODE TESTS RESULT OUT OF REFERENCE UNITS RANGE LAB MG 1.7-2.3 mg/dL Magnesium 2.0 Performed By: #### CBCDIF, CMP, MG1, PHOS #### [place] [phone] PHOSPHORUS Collected: 02/11/2018 Status: F Source: [place] 3:10 AM [facility] REPOSITORY TYPE CODE TESTS RESULT OUT OF REFERENCE UNITS RANGE LAB PHOS 2.7-4.8 mg/dL Phosphorus 4.8 Performed By: #### CBCDIF, CMP, MG1, PHOS #### [place] [address] TYPE AND SCREEN Collected: 02/11/2018 Status: F Source: [place] 3:10 AM [facility] REPOSITORY TYPE CODE TESTS RESULT OUT OF REFERENCE UNITS RANGE LAB %ABR A ABO/RH(D) NEGATIVE LAB % Antibody NEG Screen Performed By: #### TSCR #### [place] [address] STAPH AUREUS PCR Collected: 02/11/2018 Status: F Source: [place] 3:10 AM [facility] REPOSITORY TYPE CODE TESTS RESULT OUT OF REFERENCE UNITS RANGE LAB SASRC Nasal S aureus Spec Source LAB MRSRES Negative for MRSA MRSA by PCR. PCR LAB SARES Negative for Staph Staphylococcus aureus PCR aureus by PCR. Performed By: #### SAPCR #### [place] [address] ECG COMPLETE W Observed: 02/11/2018 Status: F Source: [facility] 2:[address] [facility] REPOSITORY NAME : ALBA FLORES PID : [id number] : 1950 Gender : Female Race : ORD : [id number] Procedure Date : Feb 11 2018 02:58:14 Edit Date : Feb 12 2018 13:49:04 Diagnosis:ATRIAL FIBRILLATION WITH RAPID VENTRICULAR RESPONSE COMPLETE RIGHT BUNDLE BRANCH BLOCK ABNORMAL ECG Confirmed by MD CARRASCO TAMANNA ([id number]) on 02/12/2018 1:48:59 PM Ventricular Rate : 107 BPM Atrial Rate : 104 BPM QRS Duration : 186 ms Q-T Interval : 430 ms QTC Calculation(Bezet) : 574 ms R Patterson : 263 degrees T Patterson : 4 degrees Test Reason : A-fib Location : 62 : G60 [id number] Overread By : MD CARRASCO TAMANNA Edited By : MD CARRASCO TAMANNA Referred By : , Acquired by : VERENA DESAI DISCHARGE SUMMARY Observed: 02/10/2018 Status: F Source: [place] 4:45 PM [facility] REPOSITORY [facility] Medical Records Department [address] [place] [id number] Discharge Summary 02/10/18 1635 MR#: [id number] Acct: [id number] Name: ALBA FLORES Rep #: [id number] : 1950 67 From: Lee Ramirez MD PCP: Sanchez Spears MD Status: ADM IN Location: [place] [address] Discharge Date and Diagnosis - Problem List Patient Problems: Active and Suspected Problems (Last Reviewed 02/04/18 @ 20:20 by Wyatt Lora MD) Heart failure (Acute) Date of Admission: 02/04/18 Date of Discharge: 02/10/18 - When bed available at [facility] please give all imaging CDs - Primary Discharge Diagnosis Active and Suspected Problems (Last Reviewed 02/04/18 @ 20:20 by Wyatt Lora MD) Heart failure (Acute) - Secondary Discharge Diagnosis Chronic Problems (Last Reviewed 02/04/18 @ 20:20 by Wyatt Lora MD) Chronic obstructive pulmonary disease (Chronic) Morbid obesity (Chronic) HTN (hypertension) (Chronic) GERD (gastroesophageal reflux disease) (Chronic) Hospital Course and Treatment Imaging Results: [facility] Imaging Services [address] [place] [address] Chest WITH Contrast MR#: [id number] Acct: [id number] Name: ALBA FLORES Rep #: [id number] : 1950 From: Sunny Chung PCP: Sanchez Spears MD Status: ADM IN Study: Chest WITH Contrast Date of Exam: 02/10/18 Exam# [id number] Ordering Dr: Michele Mojica MD STUDY: CT CHEST WITH CONTRAST REASON FOR EXAM: Female, 67 years old. PLEURAL EFFUSION NOT RESOLVING, HX-HTN. RADIATION DOSAGE (If Supplied By Facility): CTDIvol = ( 21.18 ) mGy, DLP = ( 782.91 ) mGycm TECHNIQUE: Transaxial imaging was performed following intravenous administration of 100 ml of Isovue 300 contrast material. # of Images: 839 Individualized dose optimization techniques were used for this CT. COMPARISON: February 10, 2018 chest x-ray FINDINGS: There is a large left pleural effusion and atelectasis. There is trace right pleural effusion and minimal atelectasis. The heart is enlarged Normal mediastinum. Normal hilar regions. Normal enhanced pulmonary arteries. Normal aorta arch and descending thoracic aorta. Normal osseous structures. There is no demonstrated abnormality of the visualized upper abdomen. CT/Chest WITH Contrast IMPRESSION: Large left pleural effusion. Small right pleural effusion. Cardiomegaly. Electronically Signed: Sunny Chung MD at 14:03 EDT Tel , Service support , CC: Michele Mojica MD; Sanchez Spears MD Acid Mixer: Signed Thoracentesis W US MR#: [id number] Acct: [id number] Name: ALBA FLORES Rep #: [id number] : 1950 From: Lewis Aguirre MD PCP: Sanchez Spears MD Status: ADM IN Study: Thoracentesis W US Date of Exam: 02/07/18 Exam# [id number] Ordering Dr: Isabelle Martin MD PROCEDURE: ULTRASOUND GUIDED THORACENTESIS. DATE: February 07, 2013.. INDICATION: Female, 67 years old. Left pleural effusion. PHYSICIAN: Lewis Aguirre M.D. PROCEDURE: The risks, benefits, and alternatives to the procedure were explained to the patient. The specific risks of bleeding, infection, and pneumothorax requiring chest tube insertion were discussed and accepted. Written informed consent was obtained. Ultrasonographic evaluation of the left lower pleural space was carried out. An adequate pocket was identified. The patient was placed in the sitting, upright position. The overlying skin was prepped and draped in sterile fashion. 1% lidocaine was administered subcutaneously for local anesthesia. Under ultrasound guidance, a 5 [place] thoracentesis needle/catheter system was advanced into the left posterior lower pleural fluid collection. Approximately 150 mL of bloody fluid was drained. The catheter was removed, and a sterile dressing was applied. A specimen was collected and sent to the laboratory for analysis, as requested by the referring clinician. The patient tolerated the procedure well. A chest x-ray was ordered. US/Thoracentesis W US IMPRESSION: Ultrasound-guided left thoracentesis. Electronically Signed: Lewis Aguirre MD at 15:55 EDT Tel [phone], Service support , 02/10/18 11:53 Chest WITH Contrast [CT] Urgent 02/11/18 05:55 Chest 1 View (Portable) [RAD] AM (NON MEDS) Problem List (1) Heart failure Status: Acute (2) CECILIA (obstructive sleep apnea) Status: Acute (3) Shortness of breath Status: Acute (4) Atrial flutter with rapid ventricular response Status: Acute (5) Atrial flutter Status: Acute Qualifiers: Atrial flutter type: typical Qualified Code(s): I48.3 - Typical atrial flutter (6) HTN (hypertension) Status: Chronic Qualifiers: Reason for Consult Date of Consultation: 02/10/18 Reason for Consultation: Atrial flutter with rapid ventricular response, COPD, CHF. History of Present Illness: The patient is a 67 year old F morbidly obese, nondiabetic, patient of Dr. Hernandez's, who was recently admitted to [facility] around November 2017 with respiratory distress, requiring intubation, atrial flutter requiring NEREYDA guided DC cardioversion, and congestive heart failure symptoms. Recently patient underwent a left- sided thoracentesis on 02/07/18 with 150 cc of bloody fluid removed. Patient also has morbid obesity, diagnosed with COPD, and is currently on Xarelto therapy. She also has a history of obstructive sleep apnea and is compliant with her CPAP. The patient was seen by Dr. Hernandez in the hospital and underwent a fairly extensive cardiac evaluation including echocardiograms, NEREYDA, and DC cardioversion. According the patient she has never had a heart catheterization. Her echocardiogram from November 2017 showed intact LV function, mild LVH, RVSP of at least 35 mmHg. Patient underwent elective DC cardioversion which was successful initially, and then returned atrial flutter while she was intubated. They attempted a another 2 DC cardioversions which were transiently successful but then reverted back to atrial flutter. She was treated with rate control medications and anticoagulation therapy. And was awaiting atrial flutter ablation at an outside facility. Apparently the patient was doing fairly well at home but then developed palpitations, shortness of breath, and rapid ventricular response. The patient sought medical attention where an EKG was performed which showed atrial flutter with rapid ventricular response. She was placed on a Cardizem drip with no significant reduction in her heart rate. Repeat chest x-ray demonstrated a very large left pleural effusion, compressing about half the thoracic cavity. No pneumothorax noted. This looks about the same after her recent thoracentesis on 02/07/18. Currently the patient is sitting up in a chair, no acute distress. [] Past Medical History Allergies/Adverse Reactions: Allergies aspirin [ASA] Adverse Reaction (Verified 02/04/18 20:59) stomach burning and sick to stomach propoxyphene HCl [From Darvon] Adverse Reaction (Verified 02/04/18 20:59) i get dizzy and pass out Home Medications: Ambulatory Orders Medication Instructions Recorded Calcium Carbonate/Vitamin D3 1 ea PO DAILY 11/14/17 [Calcium 500+D Tablet Chew] acetaminophen 500 mg tablet 1,000 mg PO Q6H PRN tab 12/01/17 Lorazepam [Ativan] 0.5 mg PO Q6H PRN PRN #14 tab 12/05/17 Metoprolol Tartrate [Lopressor 50 mg PO BID #60 tab 12/05/17 (beta maeve)] Pantoprazole Sodium [Protonix] 20 mg PO DAILY #30 tab 12/05/17 Rivaroxaban [Xarelto] 20 mg PO DAILY@1800 #30 tab 12/05/17 albuterol sulfate 2.5 mg/3 mL 2.5 mg INHALATION Q4H PRN #180 vial 01/04/18 (0.083 %) solution for nebulization albuterol sulfate HFA 90 2 puff INHALATION Q4H PRN #18 g 01/04/18 mcg/actuation aerosol inhaler Diltiazem [Cardizem] 60 mg PO TID 02/04/18 Omeprazole [Prilosec] 20 mg PO DAILY 02/04/18 Past Medical History (Chronic Problems): Chronic Problems (Last Reviewed 02/04/18 @ 20:20 by Wyatt Lora MD) Chronic obstructive pulmonary disease (Chronic) Morbid obesity (Chronic) HTN (hypertension) (Chronic) GERD (gastroesophageal reflux disease) (Chronic) Surgical History: hysterectomy - total Psychiatric History: No pertinent psych hx 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 - *Family History Maternal Family History: Family History (Last Reviewed 02/04/18 @ 20:20 by Wyatt Lora MD) Mother Heart disease Father Heart disease History Items: Heart Disease Paternal Family History: Family History (Last Reviewed 02/04/18 @ 20:20 by Wyatt Lora MD) Mother Heart disease Father Heart disease History Items: Heart Disease Lives: Spouse/ Significant Other Smoking Status: Former smoker Alcohol: None Review of Systems - Review of Systems General: Denies: Fever, Night Sweats, Fatigue Cardiovascular: Reports: Shortness of Breath, Shortness of Breath at Rest, Orthopnea, PND, Peripheral Edema. Denies: Chest Discomfort, Palpitations, Lightheadedness, Dizziness, Near Syncope, Syncope Respiratory: Denies: Cough, Sputum Production, Hemoptysis Gastrointestinal: Denies: Hematemesis, Hematochezia, Melena Genitourinary: Denies: Dysuria, Hematuria Skin: Denies: Rash Subjectve: Patient sitting in a chair, no acute distress, on Cardizem drip. Objective: Vital Signs Temp Pulse Resp BP Pulse Ox 97.3 F L 109 H 23 H 103/70 96 02/10/18 11:00 02/10/18 11:00 02/10/18 11:00 02/10/18 11:00 02/10/18 11:00 Oxygen Flow Rate (L/min) 4 Oxygen Delivery Method Nasal Cannula Weight: 333 lb 12.478 oz Body Mass Index (BMI) 28.0 Intake and Output for Last 24 Hours 02/08/18 02/09/18 02/10/18 23:59 23:59 23:59 Intake Total 960 / 960 1034 / 1034 56 / 56 Output Total 5275 / 5275 6075 / 6075 2074 / 2074 Balance -4315 / -4315 -5041 / -5041 -2018 / General: Awake, Alert, Oriented x 3 HEENT: PERRL, EOMI, Sclera Non Icteric Neck: Supple, Good ROM, No Lymph Node Enlargement Lungs: Diminished Left Base, Dullness to Percussion-Left Cardiovascular: Irregular Rhythm, Normal S1, Normal S2, No Murmurs, No Rubs, No Gallops Vascular: No Carotid Bruits, Normal Femoral Pulses, Normal Radial Pulses, Normal Dorsalis Pedal Pulse, Normal Posterior Tibial Pulses Abdomen: Bowel Sounds Present, Soft, Non Tender, No HSM, No Organomegaly Extremities: No Cyanosis, No Clubbing, Bilateral Edema +2 Neurological: No Focal Motor or Sensory Deficit 02/10/18 06:00: WBC 7.5, RBC 4.19 L, Hgb 12.1, Hct 39.6, MCV 94.5, MCH 28.9, MCHC 30.6 L, RDW 13.7, RDW Differential 45.3 H, Plt Count 170, MPV 10.4, Immature Gran % (Auto) 0.100, Neut % (Auto) 67.5, Lymph % (Auto) 17.4 L, [place] % (Auto) 11.8 H, Eos % (Auto) 3.1, Baso % (Auto) 0.1, Absolute Neuts (auto) 5.1, Total Counted Not Reportable 02/10/18 06:00: Sodium 138, Potassium 3.4 L, Chloride 96 L, Carbon Dioxide 35.0 H, Anion Gap 7, BUN 20 H, Creatinine 1.02, Est GFR (MDRD) Af Amer 69, Est GFR (MDRD) Non-Af 57 L, BUN/Creatinine Ratio 19.6, Glucose 103, Calcium 9.6, Phosphorus 4.4, Magnesium 2.0, Total Bilirubin 0.70 Rhythm: EKG: ECHO: Stress Test: Cardiac Cath: PCI: CT Surgery: Holter monitor: EPS: PPM: CXR: Chest CT Scan: Assessment/Plan 1. Atrial flutter: The patient presents with recurrent atrial flutter and rapid ventricular response superimposed upon a very large left pleural effusion which appears to have evolved since her recent admission for pneumonia in November 2017. A CAT scan done around that time showed bilateral small pleural effusions, but the patient has now had worsening left pleural effusion which may have been a result of her recent pneumonic process. An attempt was made for a left-sided thoracentesis on 02/07/18 which removed about 150 mL of fluid without a lot of improvement. Would recommend repeating her CAT scan to determine if she has a loculated pleural effusion that may require surgical debridement and/or a chest tube at an outside facility. In the meantime I recommend initiating an amiodarone drip per protocol, in addition to her Cardizem drip. Patient has known COPD, and bilateral decrease in her DLCO by pulmonary function test although this may have been superimposed upon congestive heart failure as well. Recommend using amiodarone in the short-term in order to gain heart rate control and possibly assist with DC cardioversion once her pleural effusion has resolved. Would not attempt DC cardioversion unless emergent until after her left pleural effusion has resolved. I do not believe her heart rate will improve until after we have removed the fluid, so plans may be made to transfer the patient to a tertiary care center for further evaluation. Would recommend holding her anticoagulation at this time and she will require several days off of it should she require a chest tube and/or surgical debridement depending upon the outcome of the CT scan. We may be able to take advantage of performing a left and right heart catheterization at that time. When she has been off her anticoagulation for 2 days we can replace this with subcu Lovenox 1 mg/kg subcu twice daily. For the time being I am in agreement with IV diuretic therapy to assist with pleural effusion resolution, recommend keeping her potassium above 4.0 and her magnesium of 2.0 during this process. In addition I recommend that she undergo a CT scan In addition I recommend she undergo a CT scan to determine if she has a loculated pleural effusion that may require surgical debridement. 2. COPD: The patient has a history of COPD and decreased DLCO. She is a patient of Dr. King's. 3. Recommend Toña bandages for her lower extremity edema to facilitate venous return. Patient will most likely require a left and right heart catheterization once her Eliquis has worn off. 4. Thank you very much for the opportunity to participate in the cardiac care of your patient. Consultation took place between 9:30 AM and 10:05 AM. Code Visit Inpatient E AND M: [id number] Init Hosp L2 02/10/18 1156 <Electronically signed by Michele Mojica MD> Date Michele Mojica MD Cosigner Signature (if applicable): Date CC: Michele Mojica MD; Charlie King D.O.; Sanchez Spears MD Signed Pulmonology Dr. King Procedures: 2-D Echocardiogram - EF of 55% mild dilatated left ventricle, Thoracentesis Summary of Care Provided: Patient continues to go in and out of atrial fibrillation, will try again IV dose of Lopressor, give on p.o. Lopressor, but may have to start a Cardizem drip, as patient's atrial fibrillation with RVR seems to be resistant will go ahead and consult cardiology in the a.m. Patient has diuresed quite significant amount, however still has lower extremity edema and shortness of breath. I have spoken with Dr. King have read Dr. Mojica's note. Patient still is volume overloaded with significant amount of fluid within the left lung, Dr. Mojica has already added the Diamox as suggested by Dr. King in early discussion this morning. CT scan of the chest shows large volume within the left lung. Dr. Mojica does not believe heart rate can be controlled until fluid is removed. As we do not do chest tubes at this institution have a call out to the [facility] for possible transfer for cardiothoracic surgeon to evaluate for possible chest tube. I have explained this to the patient, patient states that she is okay with this. Patient is still diuresis about 3 L so far, with oral medications, still short of breath and tachycardic despite both Cardizem and amiodarone drips. Appreciate cardiology and Dr. King. Will try to transition patient to a tertiary institution to see if drainage of pleural effusion of the left left lung possibly requiring VATS is necessary at a tertiary care center. Patient currently still short of breath, otherwise is concerned about her heart, has some anxiety. Acute on chronic hypoxemic respiratory failure, resolved Related to decompensated heart failure +/- PNA. Continue Levaquin patient still has florid failure, the CT scan of the chest reveals large pleural effusion on the left even though patient had ultrasound thoracentesis several days ago. Cardiology was consulted and has placed patient on amiodarone drip as well as Cardizem drip however believe that patient will not improve until fluid was removed and will need possible VATS or chest tube. As we do not have the ability to do so. Have contacted the [facility] for possible cardiothoracic intervention and further management. They have accepted the patient and patient will be transferred when bed available. We will try to get all imaging on a CD to go with patient. Patient is made aware of this. Acute on chronic diastolic CHF/HFpEF Patient has diuresed approximately 20 L in the 6 days that she has been here without really any improvement. Patient is still short of breath requiring 4 L nasal clan of oxygen and satting in the low 90s and BiPAP. Further interventions to be done by [facility] appreciate their help Suspected PNA Chest x-ray with new upper lobe infiltrate, suspicious for pneumonia. Last hospitalization was in November, which may qualify for HCAP, however patient appears to be responding appropriately to oral Levaquin. Continue with current antibiotic. Blood culture pending and sputum showing normal lauren. Chronic atrial flutter status post cardioversion, on anticoagulation Currently has been on Xarelto, has been taken off for possible procedure. Cardiology states he should be off her anticoagulation for 2 days for possible left and right heart catheterizations and can replace with Lovenox 1 mg/kg subcu twice daily. We will continue to hold until patient can be transferred to tertiary facility and interventions can be done patient had dose today. CECILIA Continue with BiPAP nightly. COPD, on supplemental O2 of 2 L daily Is still requiring 4 L nasal cannula oxygen and desats quickly. May be due to the fluids possible loculations in the left lung. Her baseline of 2 L daily. Morbid obesity, BMI of 63 Aware. UTI On Levaquin Hypokalemia Repeat is supple plantation with 40 mEq today DVT prophylaxis Obviously on Xarelto discontinued by cardiology this morning diet 1500 fluid restriction CODE STATUS full Disposition due to possible large loculated, and need for possible VATS versus chest tube patient will be transferred to the [facility] currently on amiodarone drip and Cardizem drip. Patient will go to the medical ICU under the care of Dr. Mariano. Patient voices understanding. Chart is dictated with scrap metal processing worker software. Errors may occur in dictation that may change providers meaning. This note was generated with [employer] dictation software. It may contain incorrect words, spelling, and punctuation that were not noted in checking the note before signing. Current Inpatient Medication List Generic Name Dose Route Start Last Admin Trade Name Freq PRN Reason Stop Dose Admin Patient Problems: Active and Suspected Problems (Last Reviewed 02/04/18 @ 20:20 by Wyatt Lora MD) Heart failure (Acute) - Physical Exam General: Alert, Oriented x3, Cooperative HEENT: Atraumatic, PERRLA, EOMI, Normocephalic Neck: Supple, No JVD, Negative Carotid Bruits, Trachea Midline Lungs: Clear to auscultation, Diminished - Moderate diminished breath sounds, Rales Cardiovascular: Normal S1, Normal S2, Irregular Rate, Tachycardic Abdomen: Soft, Non Tender, Non-Distended Extremities: Edema Skin: - - As of lower extremities with weeping Musculoskeletal: No Tenderness to Palpation of Joints or Extremities Neurological: Cranial nerves II-XII grossly intact, Neuro grossly intact Psych/Mental Status: Anxious, Alert and oriented to time, place, person, mood and affect Vital Signs Temp Pulse Resp BP Pulse Ox 97.3 F L 102 H 21 H 128/83 H 92 02/10/18 11:00 02/10/18 15:02 02/10/18 15:02 02/10/18 12:15 02/10/18 12:15 Oxygen Flow Rate (L/min) 4 Oxygen Delivery Method Nasal Cannula Weight: 151.4 kg Body Mass Index (BMI) 28.0 Intake and Output for Last 24 Hours Intake Total 960 / 960 1034 / 1034 236 / 236 Output Total 5275 / 5275 6075 / 6075 3575 / 3575 Balance -4315 / -4315 -5041 / -5041 -3339 / -3339 Microbiology Past 72 Hours 02/07/18 15:24 Gram Stain - Final Laboratory Tests Past 24 Hrs WBC 7.5 RBC 4.19 L Hgb 12.1 Hct 39.6 MCV 94.5 MCH 28.9 MCHC 30.6 L Discharge Diet: No Restrictions - Cardiac, 1500 fluid restriction Discharge Activity: Return to Normal Activity Call your doctor if you observe: Fever of 101 or Higher, Coldness, Increased Pain, Shortness of breath, Dizziness, Chest pain, Calf discomfort Home Medications: Medications to take at Discharge Calcium Carbonate/Vitamin D3 [Calcium 500+D Tablet Chew] 1 ea PO DAILY 11/14/17 acetaminophen 500 mg tablet 1,000 mg PO Q6H PRN tab 12/01/17 Lorazepam [Ativan] 0.5 mg PO Q6H PRN PRN #14 tab 12/05/17 Metoprolol Tartrate [Lopressor (beta maeve)] 50 mg PO BID #60 tab 12/05/17 Pantoprazole Sodium [Protonix] 20 mg PO DAILY #30 tab 12/05/17 albuterol sulfate 2.5 mg/3 mL (0.083 %) solution for nebulization 2.5 mg INHALATION Q4H PRN #180 vial 01/04/18 albuterol sulfate HFA 90 mcg/actuation aerosol inhaler 2 puff INHALATION Q4H PRN #18 g 01/04/18 Diltiazem [Cardizem] 60 mg PO TID 02/04/18 AcetaAZOLAMIDE [Diamox] 125 mg PO BIDCM tablet 02/10/18 Acetaminophen [Tylenol Tablet] 650 mg PO Q6H PRN PRN tablet 02/10/18 Albuterol Aerosols [Ventolin Aerosols] 2.5 mg INHALATION Q2H PRN PRN vial.neb. 02/10/18 Amiodarone HCl/D5w [Amiodarone 450 mg/250 ml-D5w] 360 mg IV CONT #1 plast..bag 02/10/18 Bisacodyl [Dulcolax] 5 mg PO DAILY PRN PRN tablet 02/10/18 Calcium Carb/Vitamin D [Os-Jose 500MG + D] 1 tablet PO DAILY tablet 02/10/18 Furosemide [Lasix] 40 mg PO BID@1000,1800 tablet 02/10/18 Guaifenesin [Mucinex] 600 mg PO BID tablet 02/10/18 Ipratropium/Albuterol Sulfate [Duoneb] 3 ml INHALATION Q4H.RT ampul.neb 02/10/18 Magnesium Hydroxide [Milk Of Magnesia] 30 ml PO DAILY PRN udc 02/10/18 Menthol/Lanolin/Calamine/Znox [Calmoseptine Ointment] 1 applic TOPICAL 4X/DAY PRN tube 02/10/18 Metoprolol Tartrate [Lopressor (beta maeve)] 50 mg PO BID tablet 02/10/18 Nystatin Powder [Mycostatin Powder] 1 applic TOPICAL BID bottle 02/10/18 Ondansetron [Zofran] 4 mg IV Q8H PRN PRN vial 02/10/18 Potassium Chloride [K-Dur] 20 meq PO DAILYCM tablet 02/10/18 Sodium Chloride 0.65% [[place] Nasal [place]] 2 spray NASAL TID PRN PRN spray.btl 02/10/18 levoFLOXacin tablet [Levaquin tablet] 750 mg PO DAILY@0600 tablet 02/10/18 Following Prescrptions Were Given to Patient: Amiodarone HCl/D5w [Amiodarone 450 mg/250 ml-D5w] 360 mg IV CONT #1 plast..bag Primary Care Physician: Sanchez Spears MD [Primary Care Provider] - Please follow up with your Primary Care Physician in: 1-2 after dc Additional Instructions: Please get all imaging and placed on CD for transfer Disposition: [facility] when bed available Minutes spent on discharge:: 50 Patient Condition:: Stable Medical Necessity - Tobacco Use Smoking Status: Former smoker Meaningful Use Info Meaningful Use Diagnoses (Choose all that apply): CHF - CHF TOÑA/ARB ordered at discharge?: No Reason TOÑA/ARB not ordered?: Hypotension Documented LVEF (%): 55 Code Visit Inpatient E AND M: [id number] Disch Hosp 02/10/18 1645 <Electronically signed by Lee Ramirez MD> Date Lee Ramirez MD Cosigner Signature (if applicable): Date CC: Lee Ramirez MD; Sanchez Spears MD Signed DISCHARGE INSTRUCTION Observed: 02/10/2018 Status: F Source: [place] 4:35 PM [facility] REPOSITORY [facility] Medical Records Department [address] [place] [address] Instructions for Home/Discharge Instructions 02/10/18 1627 MR#: [id number] Acct: [id number] Name: ALBA FLORES Rep #: [id number] : 1950 67 From: Lee Ramirez MD PCP: Sanchez Spears MD Status: ADM IN - Discharge Diagnoses Current Active Problems: Current Active and Chronic Problems (Last Reviewed 02/04/18 @ 20:20 by Wyatt Lora MD) Heart failure (Acute) You will use the following diet at home:: Cardiac, Fluid restricted (specify 2000 mls, 1500 mls) - 1500 fluid restriction Your food should be the consistency of: Regular Your liquids should be the consistency of: Regular/Thin Discharge Activity: Return to Normal Activity Call your doctor if you observe: Fever of 101 or Higher, Coldness, Increased Pain, Shortness of breath, Dizziness, Chest pain, Calf discomfort Allergies/Adverse Reactions: Allergies aspirin [ASA] Adverse Reaction (Verified 02/04/18 20:59) stomach burning and sick to stomach propoxyphene HCl [From Darvon] Adverse Reaction (Verified 02/04/18 20:59) i get dizzy and pass out Medications to take at Discharge Calcium Carbonate/Vitamin D3 [Calcium 500+D Tablet Chew] 1 ea PO DAILY 11/14/17 acetaminophen 500 mg tablet 1,000 mg PO Q6H PRN tab 12/01/17 Lorazepam [Ativan] 0.5 mg PO Q6H PRN PRN #14 tab 12/05/17 Metoprolol Tartrate [Lopressor (beta maeve)] 50 mg PO BID #60 tab 12/05/17 Pantoprazole Sodium [Protonix] 20 mg PO DAILY #30 tab 12/05/17 albuterol sulfate 2.5 mg/3 mL (0.083 %) solution for nebulization 2.5 mg INHALATION Q4H PRN #180 vial 01/04/18 albuterol sulfate HFA 90 mcg/actuation aerosol inhaler 2 puff INHALATION Q4H PRN #18 g 01/04/18 Diltiazem [Cardizem] 60 mg PO TID 02/04/18 AcetaAZOLAMIDE [Diamox] 125 mg PO BIDCM tablet 02/10/18 Acetaminophen [Tylenol Tablet] 650 mg PO Q6H PRN PRN tablet 02/10/18 Albuterol Aerosols [Ventolin Aerosols] 2.5 mg INHALATION Q2H PRN PRN vial.neb. 02/10/18 Amiodarone HCl/D5w [Amiodarone 450 mg/250 ml-D5w] 360 mg IV CONT #1 plast..bag 02/10/18 Bisacodyl [Dulcolax] 5 mg PO DAILY PRN PRN tablet 02/10/18 Calcium Carb/Vitamin D [Os-Jose 500MG + D] 1 tablet PO DAILY tablet 02/10/18 Furosemide [Lasix] 40 mg PO BID@1000,1800 tablet 02/10/18 Guaifenesin [Mucinex] 600 mg PO BID tablet 02/10/18 Ipratropium/Albuterol Sulfate [Duoneb] 3 ml INHALATION Q4H.RT ampul.neb 02/10/18 Magnesium Hydroxide [Milk Of Magnesia] 30 ml PO DAILY PRN udc 02/10/18 Menthol/Lanolin/Calamine/Znox [Calmoseptine Ointment] 1 applic TOPICAL 4X/DAY PRN tube 02/10/18 Metoprolol Tartrate [Lopressor (beta maeve)] 50 mg PO BID tablet 02/10/18 Nystatin Powder [Mycostatin Powder] 1 applic TOPICAL BID bottle 02/10/18 Ondansetron [Zofran] 4 mg IV Q8H PRN PRN vial 02/10/18 Potassium Chloride [K-Dur] 20 meq PO DAILYCM tablet 02/10/18 Sodium Chloride 0.65% [[place] Nasal [place]] 2 spray NASAL TID PRN PRN spray.btl 02/10/18 levoFLOXacin tablet [Levaquin tablet] 750 mg PO DAILY@0600 tablet 02/10/18 The following prescriptions were given: Amiodarone HCl/D5w [Amiodarone 450 mg/250 ml-D5w] 360 mg IV CONT #1 plast..bag Primary Care Physician: Sanchez Spears MD [Primary Care Provider] - Please follow up with your Primary Care Physician in: 1-2 after dc Test Results: Test results from this visit will be discussed in further detail at your follow-up appointment, if applicable. 02/10/18 6275 <Electronically signed by Lee Ramirez MD> Date Lee Ramirez MD CC: Michele Mojica MD; Charlie King D.O.; Sanchez Spears MD CONSULTATION Observed: 02/10/2018 Status: F Source: [place] 11:56 AM [facility] REPOSITORY [facility] Medical Records Department [address] [place] [address] Consultation 02/10/18 1133 MR#: [id number] Acct: [id number] Name: ALBA FLORES Rep #: [id number] : 1950 67 From: Michele Mojica MD PCP: Sanchez Spears MD Status: ADM IN Location: [place] [address] Problem List (1) Heart failure Status: Acute (2) CECILIA (obstructive sleep apnea) Status: Acute (3) Shortness of breath Status: Acute (4) Atrial flutter with rapid ventricular response Status: Acute (5) Atrial flutter Status: Acute Qualifiers: Atrial flutter type: typical Qualified Code(s): I48.3 - Typical atrial flutter (6) HTN (hypertension) Status: Chronic Qualifiers: Reason for Consult Date of Consultation: 02/10/18 Reason for Consultation: Atrial flutter with rapid ventricular response, COPD, CHF. History of Present Illness: The patient is a 67 year old F morbidly obese, nondiabetic, patient of Dr. Hernandez's, who was recently admitted to [facility] around November 2017 with respiratory distress, requiring intubation, atrial flutter requiring NEREYDA guided DC cardioversion, and congestive heart failure symptoms. Recently patient underwent a left- sided thoracentesis on 02/07/18 with 150 cc of bloody fluid removed. Patient also has morbid obesity, diagnosed with COPD, and is currently on Xarelto therapy. She also has a history of obstructive sleep apnea and is compliant with her CPAP. The patient was seen by Dr. Hernandez in the hospital and underwent a fairly extensive cardiac evaluation including echocardiograms, NEREYDA, and DC cardioversion. According the patient she has never had a heart catheterization. Her echocardiogram from November 2017 showed intact LV function, mild LVH, RVSP of at least 35 mmHg. Patient underwent elective DC cardioversion which was successful initially, and then returned atrial flutter while she was intubated. They attempted a another 2 DC cardioversions which were transiently successful but then reverted back to atrial flutter. She was treated with rate control medications and anticoagulation therapy. And was awaiting atrial flutter ablation at an outside facility. Apparently the patient was doing fairly well at home but then developed palpitations, shortness of breath, and rapid ventricular response. The patient sought medical attention where an EKG was performed which showed atrial flutter with rapid ventricular response. She was placed on a Cardizem drip with no significant reduction in her heart rate. Repeat chest x-ray demonstrated a very large left pleural effusion, compressing about half the thoracic cavity. No pneumothorax noted. This looks about the same after her recent thoracentesis on 02/07/18. Currently the patient is sitting up in a chair, no acute distress. [] Past Medical History Allergies/Adverse Reactions: Allergies aspirin [ASA] Adverse Reaction (Verified 02/04/18 20:59) stomach burning and sick to stomach propoxyphene HCl [From Darvon] Adverse Reaction (Verified 02/04/18 20:59) i get dizzy and pass out Home Medications: Ambulatory Orders Medication Instructions Recorded Calcium Carbonate/Vitamin D3 1 ea PO DAILY 11/14/17 [Calcium 500+D Tablet Chew] acetaminophen 500 mg tablet 1,000 mg PO Q6H PRN tab 12/01/17 Past Medical History (Chronic Problems): Chronic Problems (Last Reviewed 02/04/18 @ 20:20 by Wyatt Lora MD) Chronic obstructive pulmonary disease (Chronic) Morbid obesity (Chronic) HTN (hypertension) (Chronic) GERD (gastroesophageal reflux disease) (Chronic) Surgical History: hysterectomy - total Psychiatric History: No pertinent psych hx 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 - *Family History Maternal Family History: Family History (Last Reviewed 02/04/18 @ 20:20 by Wyatt Lora MD) Mother Heart disease Father Heart disease History Items: Heart Disease Paternal Family History: Family History (Last Reviewed 02/04/18 @ 20:20 by Wyatt Lora MD) Mother Heart disease Father Heart disease History Items: Heart Disease Lives: Spouse/ Significant Other Smoking Status: Former smoker Alcohol: None Review of Systems - Review of Systems General: Denies: Fever, Night Sweats, Fatigue Cardiovascular: Reports: Shortness of Breath, Shortness of Breath at Rest, Orthopnea, PND, Peripheral Edema. Denies: Chest Discomfort, Palpitations, Lightheadedness, Dizziness, Near Syncope, Syncope Respiratory: Denies: Cough, Sputum Production, Hemoptysis Gastrointestinal: Denies: Hematemesis, Hematochezia, Melena Genitourinary: Denies: Dysuria, Hematuria Skin: Denies: Rash Subjectve: Patient sitting in a chair, no acute distress, on Cardizem drip. Objective: Vital Signs Temp Pulse Resp BP Pulse Ox 97.3 F L 109 H 23 H 103/70 96 02/10/18 11:00 02/10/18 11:00 02/10/18 11:00 02/10/18 11:00 02/10/18 11:00 Oxygen Flow Rate (L/min) 4 Oxygen Delivery Method Nasal Cannula Weight: 333 lb 12.478 oz Body Mass Index (BMI) 28.0 Intake and Output for Last 24 Hours Intake Total 960 / 960 1034 / 1034 56 / 56 Output Total 5275 / 5275 6075 / 6075 2075 / 2075 Balance -4315 / -4315 -5041 / -5041 -2018 General: Awake, Alert, Oriented x 3 HEENT: PERRL, EOMI, Sclera Non Icteric Neck: Supple, Good ROM, No Lymph Node Enlargement Lungs: Diminished Left Base, Dullness to Percussion-Left Cardiovascular: Irregular Rhythm, Normal S1, Normal S2, No Murmurs, No Rubs, No Gallops Vascular: No Carotid Bruits, Normal Femoral Pulses, Normal Radial Pulses, Normal Dorsalis Pedal Pulse, Normal Posterior Tibial Pulses Abdomen: Bowel Sounds Present, Soft, Non Tender, No HSM, No Organomegaly Extremities: No Cyanosis, No Clubbing, Bilateral Edema +2 Neurological: No Focal Motor or Sensory Deficit 02/10/18 06:00: WBC 7.5, RBC 4.19 L, Hgb 12.1, Hct 39.6, MCV 94.5, MCH 28.9, MCHC 30.6 L, RDW 13.7, RDW Differential 45.3 H, Plt Count 170, MPV 10.4, Immature Gran % (Auto) 0.100, Neut % (Auto) 67.5, Lymph % (Auto) 17.4 L, [place] % (Auto) 11.8 H, Eos % (Auto) 3.1, Baso % (Auto) 0.1, Absolute Neuts (auto) 5.1, Total Counted Not Reportable 02/10/18 06:00: Sodium 138, Potassium 3.4 L, Chloride 96 L, Carbon Dioxide 35.0 H, Anion Gap 7, BUN 20 H, Creatinine 1.02, Est GFR (MDRD) Af Amer 69, Est GFR (MDRD) Non-Af 57 L, BUN/Creatinine Ratio 19.6, Glucose 103, Calcium 9.6, Phosphorus 4.4, Magnesium 2.0, Total Bilirubin 0.70 Rhythm: EKG: ECHO: Stress Test: Cardiac Cath: PCI: CT Surgery: Holter monitor: EPS: PPM: CXR: Chest CT Scan: Assessment/Plan 1. Atrial flutter: The patient presents with recurrent atrial flutter and rapid ventricular response superimposed upon a very large left pleural effusion which appears to have evolved since her recent admission for pneumonia in November 2017. A CAT scan done around that time showed bilateral small pleural effusions, but the patient has now had worsening left pleural effusion which may have been a result of her recent pneumonic process. An attempt was made for a left-sided thoracentesis on 02/07/18 which removed about 150 mL of fluid without a lot of improvement. Would recommend repeating her CAT scan to determine if she has a loculated pleural effusion that may require surgical debridement and/or a chest tube at an outside facility. In the meantime I recommend initiating an amiodarone drip per protocol, in addition to her Cardizem drip. Patient has known COPD, and bilateral decrease in her DLCO by pulmonary function test although this may have been superimposed upon congestive heart failure as well. Recommend using amiodarone in the short-term in order to gain heart rate control and possibly assist with DC cardioversion once her pleural effusion has resolved. Would not attempt DC cardioversion unless emergent until after her left pleural effusion has resolved. I do not believe her heart rate will improve until after we have removed the fluid, so plans may be made to transfer the patient to a tertiary care center for further evaluation. Would recommend holding her anticoagulation at this time and she will require several days off of it should she require a chest tube and/or surgical debridement depending upon the outcome of the CT scan. We may be able to take advantage of performing a left and right heart catheterization at that time. When she has been off her anticoagulation for 2 days we can replace this with subcu Lovenox 1 mg/kg subcu twice daily. For the time being I am in agreement with IV diuretic therapy to assist with pleural effusion resolution, recommend keeping her potassium above 4.0 and her magnesium of 2.0 during this process. In addition I recommend that she undergo a CT scan In addition I recommend she undergo a CT scan to determine if she has a loculated pleural effusion that may require surgical debridement. 2. COPD: The patient has a history of COPD and decreased DLCO. She is a patient of Dr. King's. 3. Recommend Toña bandages for her lower extremity edema to facilitate venous return. Patient will most likely require a left and right heart catheterization once her Eliquis has worn off. 4. Thank you very much for the opportunity to participate in the cardiac care of your patient. Consultation took place between 9:30 AM and 10:05 AM. Code Visit Inpatient E AND M: 13119 Init Hosp L2 02/10/18 1156 <Electronically signed by Michele Mojica MD> Date Michele Mojica MD Cosigner Signature (if applicable): Date CC: Michele Mojica MD; Charlie King D.O.; Sanchez Spears MD Signed CHEST WITH CONTRAST Observed: 02/10/2018 Status: F Source: [place] 11:54 AM [facility] REPOSITORY [facility] Imaging Services [address] [place] [address] Chest WITH Contrast MR#: [id number] Acct: [id number] Name: ALBA FLORES Rep #: [id number] : 1950 F 67 From: Sunny Chung PCP: Sanchez Spears MD Status: ADM IN Study: Chest WITH Contrast Date of Exam: 02/10/18 Exam# [id number] Ordering Dr: Michele Mojica MD STUDY: CT CHEST WITH CONTRAST REASON FOR EXAM: Female, 67 years old. PLEURAL EFFUSION NOT RESOLVING, HX-HTN. RADIATION DOSAGE (If Supplied By Facility): CTDIvol = ( 21.18 ) mGy, DLP = ( 782.91 ) mGycm TECHNIQUE: Transaxial imaging was performed following intravenous administration of 100 ml of Isovue 300 contrast material. # of Images: 839 Individualized dose optimization techniques were used for this CT. COMPARISON: February 10, 2018 chest x-ray FINDINGS: There is a large left pleural effusion and atelectasis. There is trace right pleural effusion and minimal atelectasis. The heart is enlarged Normal mediastinum. Normal hilar regions. Normal enhanced pulmonary arteries. Normal aorta arch and descending thoracic aorta. Normal osseous structures. There is no demonstrated abnormality of the visualized upper abdomen. CT/Chest WITH Contrast IMPRESSION: Large left pleural effusion. Small right pleural effusion. Cardiomegaly. Electronically Signed: Sunny Chung MD at 14:03 EDT Tel , Service support , CC: Michele Mojica MD; Sanchez Spears MD Acid Mixer: Signed CBC W/DIFF, AUTOMATED Collected: 02/10/2018 Status: F Source: [place] 6:00 AM [facility] REPOSITORY TYPE CODE TESTS RESULT OUT OF RANGE REFERENCE UNITS LAB L100.1000 4.4-11.0 K/mm3 Normal WBC 7.5 LAB L100.1200 4.2-5.4 M/mm3 Low RBC 4.19 LAB L100.1300 12.0-15.0 g/dl Normal HGB 12.1 LAB L100.1400 37-47 % Normal HCT 39.6 LAB L100.1500 81-99 fL Normal MCV 94.5 LAB L100.1600 27.0-32.0 pg Normal MCH 28.9 LAB L100.1700 32-36 g/gl Low MCHC 30.6 LAB L100.1810 11.6-14.6 % Normal RDW CV 13.7 LAB L100.1820 35.1-43.9 fl High RDW SD 45.3 LAB L100.1900 150-450 K/mm3 Normal PLT 170 LAB L100.2000 6.2-12.0 fl Normal MPV 10.4 LAB L100.2100 47-70 % Normal NEUT% 67.5 LAB L100.2200 19-41 % Low LY% 17.4 LAB L100.2300 0-10 % High MONO% 11.8 LAB L100.2400 0-5 % Normal EO% 3.1 LAB L100.2500 0-1 % Normal BASO% 0.1 LAB L100.2550 0.0-0.9 % Normal IM GRAN % 0.100 Result Comment: IG% - Immature Granulocytes (promyelocytes, myelocytes and metamyelocytes) > 1% indicates that a LEFT SHIFT is Present. LAB L100.2620 2.0-7.7 X10 3/uL Normal Absolute Neut 5.1 LAB L100.2720 0.83-4.51 X10 3/ul Normal Absolute Lymph 1.31 Performed By: #### L100.0100 #### [facility] [address] [place], [address] COMPREHENSIVE METABOLIC Collected: 02/10/2018 Status: F Source: [place] [facility] 6:00 AM [facility] REPOSITORY TYPE CODE TESTS RESULT OUT OF RANGE REFERENCE UNITS LAB L501.0100 74-106 mg/dL Normal GLU 103 Result Comment: Fasting Glucose result from 100 to 125 mg/dL suggests IMPAIRED HOMEOSTASIS per A.D.A. criteria. Please note revised GLUCOSE reference range effective 2017. LAB L501.1000 7-18 mg/dL High BUN 20 LAB L501.1100 0.55-1.02 mg/dL Normal CREAT,SERUM 1.02 Result Comment: The validity of the calculated GFR AND GFRAA in patients over 70 years has not been determined. Clinical correlation is essential. LAB L501.1110 >60 mL/min Low EST GFR 57 Result Comment: Non- GFR Calc LAB L501.1115 >60 mL/min Normal EST GFR - AA 69 Result Comment: GFR Calc LAB L501.1255 ml/min Normal Estimated CRCL 43.06 LAB L501.1300 10-20 RATIO Normal BUN/CRE 19.6 LAB L501.1500 6.4-8. g/dL Normal 2 T PROT 6.7 LAB L501.1800 3.2-5. g/dL Normal 0 ALB 3.4 LAB L501.1950 2.2-4. g/dL Normal 2 GLOB 3.3 LAB L501.2000 0.9-2. RATIO Normal 4 A/G 1.0 LAB L501.2200 8.5-10 mg/dL Normal .1 CA 9.6 LAB L501.4100 15-37 U/L Normal AST 16 LAB L501.4305 45-117 U/L Normal ALK P 91 LAB L501.4405 13-56 U/L Normal ALT 25 LAB L501.4600 0.20-1 mg/dL Normal .00 T BILI 0.70 LAB L501.5300 136-14 mmol/L Normal 5 NA 138 LAB L501.5600 3.5-5. mmol/L Low 1 K 3.4 LAB L501.5900 98-107 mmol/L Low CL 96 LAB L501.6100 21.0-3 mmol/L High 2.0 CO2 35.0 LAB L501.6200 5-15 Normal GAP 7 Performed By: #### L500.4050, L501.2300, L501.5200 #### [facility] [address] [place], [address] PHOSPHORUS Collected: 02/10/2018 Status: F Source: [place] 6:00 AM [facility] REPOSITORY TYPE CODE TESTS RESULT OUT OF RANGE REFERENCE UNITS LAB L501.2300 2.5-4.9 mg/dL Normal PHOS 4.4 Performed By: #### L500.4050, L501.2300, L501.5200 #### [facility] [address] [place], [address] MAGNESIUM Collected: 02/10/2018 Status: F Source: [place] 6:00 AM [facility] REPOSITORY TYPE CODE TESTS RESULT OUT OF RANGE REFERENCE UNITS LAB L501.5200 1.6-2.6 mg/dL Normal MG 2.0 Performed By: #### L500.4050, L501.2300, L501.5200 #### [facility] [address] [place], [address] CHEST 1 VIEW Observed: 02/10/2018 Status: F Source: [place] (PORTABLE) 12:01 AM [facility] REPOSITORY [facility] Imaging Services [address] [place] [address] Chest 1 View (Portable) MR#: [id number] Acct: [id number] Name: ALBA FLORES Rep #: [id number] : 1950 F 67 From: Manjit Turner MD PCP: Sanchez Spears MD Status: ADM IN Study: Chest 1 View (Portable) Date of Exam: 02/10/18 Exam# [id number] Ordering Dr: Lee Ramirez MD STUDY: X-RAY CHEST REASON FOR EXAM: Female, 67 years old. TECHNIQUE: Shortness of breath, view COMPARISON: None. FINDINGS: There is cardiomegaly improved congestive failure but persistent bilateral pleural effusions. This is more on the left than the right. Normal visualized thoracic spine. Normal visualized ribs, clavicles, and shoulders. There is no demonstrated abnormality of the visualized soft tissue structures of the upper abdomen. RAD/Chest 1 View (Portable) IMPRESSION: Cardiomegaly with improved congestive failure and bilateral pleural effusions. This is more on the left than the right Electronically Signed: Manjit Turner MD at 6:53 EDT Tel , Service support , CC: Lee Ramirez MD; Sanchez Spears MD Acid Mixer: Signed CR-CHEST 1 VIEW Observed: 02/10/2018 Status: F Source: [place] (PORTABLE) [place] 12:00 AM [facility] REPOSITORY Images were obtained outside of [facility] [id number] SR-CHEST WITH Observed: 02/10/2018 Status: F Source: [place] CONTRAST [place] 12:00 AM [facility] REPOSITORY Images were obtained outside of [facility] [id number] Observed: 02/10/2018 Status: COMPLETED Source: [facility] 12:[address] [facility] REPOSITORY Patient:Alba Flores MRN: <[id number]> Height:5' 3(1.6 m) Weight:310 lb 13.6 oz (141 kg) Outpatient Medications as of 02/13/18: rivaroxaban (XARELTO) [address] (PROTONIX) 20 mg tablet diltiazem (CARDIZEM) 60 mg tablet metoprolol tartrate, short acting, (LOPRESSOR) 50 mg tablet calcium carbonate-vitamin D3 500-100 mg-unit chewable tablet nystatin (NYSTOP) powder Menthol-Zinc Oxide (CALMOSEPTINE) 0.44-20.6 % aspirin 81 mg chewable tablet OXYGEN, HOME THERAPY, lisinopril (ZESTRIL, PRINIVIL) 20 mg tablet omeprazole (PRILOSEC) 20 mg capsule DOCOSAHEXANOIC ACID/EPA (FISH OIL ORAL) Admission/Clinic Administered Medications as of 02/13/18: metoprolol tartrate (short acting) 25 mg tab(s) (LOPRESSOR) potassium chloride ER 40 mEq tab(s) (K-DUR, KLOR-CON) magnesium sulfate in water 4-6 g in sterile water 50 ml sodium glycerophosphate 45 mmol in NaCl 0.9% 250 mL (GLYCOPHOS) dextrose 50% in water 25-50 mL syringe acetaminophen 650 mg tab(s) (TYLENOL) acetaminophen 650 mg suppository (TYLENOL) pantoprazole DR 20 mg tab(s) (PROTONIX) heparin 5,000 Units injection senna-docusate 8.6-50 mg 1 tablet (SENNA-S) hnhkuas-drudiuyfj-hsbnode D3 500 mg(1,250mg) -200 unit 1 tablet perflutren lipid microspheres 1.1 mg/mL 1.3 mL injection (DEFINITY) Problem List: HTN (hypertension) [I10] Borderline diabetes [R73.03] Endometrial cancer, grade I (HCC) [C54.1] Morbid obesity (HCC) [E66.01] Osteopenia [M85.80] Atrial flutter with rapid ventricular response (HCC) [I48.92] Atrial fibrillation (HCC) [I48.91] GERD (gastroesophageal reflux disease) [K21.9] COPD (chronic obstructive pulmonary disease) (HCC) [J44.9] Obesity, Class III, BMI >= 40 [E66.01] Respiratory failure (HCC) [J96.90] EKATERINA (acute kidney injury) (HCC) [N17.9] Allergies: Asa [Aspirin] Date Verified: 02/13/18 Lab Values Lab Value Units Date High Low POTA* 3.1 mmol/L 02/12/2018 5.1 3.7 DEVANG* 38.5 % 02/13/2018 46.0 36.0 Progress Notes (): Timoteo Rodriguez MD PhD, MD 02/11/2018 8:40 AM Signed MEDICAL INTENSIVE CARE UNIT HISTORY AND PHYSICAL PRIMARY SERVICE: BINA Flores [id number] ADMISSION DATE: 02/11/2018 LENGTH OF STAY: 0 PRIMARY CARE PHYSICIAN: Sanchez Spears MD CHIEF COMPLAINT: Shortness of breath PMH: CHF, COPD, Obesity, HTN, GERD, atrial flutter with RVR HPI: This is a 67 year old female with the above past medical history who presents with shortness of breath and atrial flutter from the [facility]. She presented to their ED on 02/04 with complaints of SOB. She was noted to have chronic hypoxic respiratory failure requiring 2L/min supplemental oxygen. Her last pulmonary function testing was completed in 12/2017 and revealed evidence of an irreversible severe mixed ventilatory defect with a symmetric reduction in diffusing capacity. She has a history of atrial flutter with rapid ventricular response. She has undergone at least three prior DC cardioversions, which have been unsuccessful. She was then referred to EP for possible ablation therapy. On 02/04 during her admission to the [facility] ED, this patient was afebrile, tachycardic, and tachypnic. She was placed on IV diuretics initially, and on 02/07 antibiotics (Levaquin) were added for a suspected pneumonia. This patient required a thoracentesis at the [facility] on 02/07 to evacuate a left-sided pleural effusion. A total of 150 mL of bloody fluid was drained. The yield may have been limited by loculation. A repeat chest xray on 02/09 showed expansion of this left-sided pleural effusion, and a chest xray on 02/10 showed the same with a pleural effusion on the right side as well. The patient's notes from her OSH describe her atrial flutter as being refractory to IV Lopressor, which is why she was instead put on a Cardizem drip in addition to an amiodarone drip. She was on these at the time of her arrival to our hospital. In addition, despite diuresis of approximately 20 L during her stay at [facility], the care providers there were unable to remove enough fluid to improve the patient's SOB. She was receiving 40 mg PO furosemide BID. They felt like she might benefit from chest tube placement or a VATS at our hospital. The patient was off of Xarelto while at the OSH, and the plan was to start Lovenox at a 1 mg/kg dose BID once any procedures were completely ruled out. Medications from the OSH include: - Tylenol 650 mg - Diamox 125 mg BID - Albuterol AND Duonebs - Dulcolax 5 mg - Lasix 40 mg PO BID - Mucinex 500 mg PO BID - Diltiazem drip - Amiodarone drip - Levaquin 750 mg PO daily - started 02/07/18 to 02/10/18 - Ativan 0.5 mg PO Q6hrs PRN - MOM - Metoprolol Tartate 50 mg PO BID + 5 mg IV Q6H PRN for tachycardia - Zofran for nausea PRN - Protonix 20 mg PO daily - Ambien 5 mg QHS - Bipap QHS and oxygen by NC during the daytime History obtained from: Patient and Old records PAST MEDICAL HISTORY: PAST MEDICAL HISTORY Diagnosis Date - Atrial flutter (HCC) - Borderline diabetes 12/2014 - COPD (chronic obstructive pulmonary disease) (HCC) - Endometrial cancer, grade I (HCC) 12/2014 - GERD (gastroesophageal reflux disease) - HTN (hypertension) 12/2014 - Morbid obesity with BMI of 60.0-69.9, adult (HCC) - CECILIA (obstructive sleep apnea) - Osteopenia PAST SURGICAL HISTORY: PAST SURGICAL HISTORY Procedure Laterality Date - APPENDECTOMY - LAP, SUPRACERVIAL HYSTERECTOMY W/ TUBEANDOV, <250G 2014 - TUBAL LIGATION HX FAMILY HISTORY: FAMILY HISTORY Problem Relation Age of Onset - COPD Mother - Heart Mother - Heart Father - Colon Cancer Sister SOCIAL HISTORY: Social History Substance Use Topics - Smoking status: Former Smoker Packs/day: 1.00 Years: 5.00 Types: Cigarettes Quit date: 04/17/1984 - Smokeless tobacco: Never Used Comment: still smokes in the home - Alcohol use Yes Comment: rarely MEDICATIONS: Prior to Admission Medications: rivaroxaban (XARELTO) 20 mg tablet Take 1 tablet by mouth DAILY AT [address] (PROTONIX) 20 mg tablet Take 1 tablet by mouth once daily. diltiazem (CARDIZEM) 60 mg tablet Take 1 tablet by mouth three times daily. metoprolol tartrate, short acting, (LOPRESSOR) 50 mg tablet Take 1 tablet by mouth twice daily. calcium carbonate-vitamin D3 500-100 mg-unit chewable tablet Take 1 tablet by mouth once daily. Menthol-Zinc Oxide (CALMOSEPTINE) 0.44-20.6 % Apply 1 application to affected area twice daily. OXYGEN, HOME THERAPY, 2 L/min by Nasal Cannula route as directed. omeprazole (PRILOSEC) 20 mg capsule Take 1 capsule by mouth once daily. DOCOSAHEXANOIC ACID/EPA (FISH OIL ORAL) Take by mouth. nystatin (NYSTOP) powder Apply 1 application to affected area three times daily. aspirin 81 mg chewable tablet Take 1 tablet by mouth once daily. Patient is taking daily since she can't afford Xarelto lisinopril (ZESTRIL, PRINIVIL) 20 mg tablet Take 1.5 tablets by mouth once daily. Current hospital medications: potassium chloride ER 40 mEq tab(s) (K-DUR, KLOR-CON) 40 mEq ORAL/FEEDING TUBE q 2 H PRN magnesium sulfate in water 4-6 g in sterile water 50 ml 4- 6 g INTRAVENOUS PRN sodium glycerophosphate 45 mmol in NaCl 0.9% 250 mL (GLYCOPHOS) 45 mmol INTRAVENOUS PRN insulin regular human injection (short acting) (NovoLIN R,HumuLIN R) SUBCUTANEOUS q 6 H insulin regular 250 units in NaCl 0.9% 250 mL iv infusion - ICU NOMOGRAM 0.5-30 Units/hr INTRAVENOUS CONTINUOUS insulin regular human iv bolus 2-10 Units 2-10 Units INTRAVENOUS PRN dextrose 50% in water 25-50 mL syringe 12.5-25 g INTRAVENOUS PRN dextrose 40 % 15 g 15 g ORAL PRN glucagon 1 mg injection (GLUCAGEN) 1 mg SUBCUTANEOUS PRN acetaminophen 650 mg tab(s) (TYLENOL) 650 mg ORAL/FEEDING TUBE q 6 H PRN acetaminophen 650 mg suppository (TYLENOL) 650 mg RECTAL q 6 H PRN [START ON 02/12/2018] metoprolol tartrate (short acting) 50 mg tab(s) (LOPRESSOR) [address] BID [address]op[address]ole [address] 20 mg tab(s) (PROTONIX) 20 mg ORAL DAILY heparin 5,000 Units injection 5,000 Units SUBCUTANEOUS q 12 H senna-docusate 8.6-50 mg 1 tablet (SENNA-S) 1 tablet ORAL BID ibrfldm-spiivcevh-dkhvmwz D3 500 mg(1,250mg) -200 unit 1 tablet 1 tablet ORAL DAILY ALLERGIES: ALLERGIES Allergen Reactions - Asa [Aspirin] GI Upset COMPLETE REVIEW OF SYSTEMS: (Positives in bold.) PAIN ASSESSMENT: Negative for pain, history of chronic pain, or current treatment for a chronic pain condition GENERAL: No weight loss, malaise or fevers HEENT: Negative for frequent or significant headaches, No changes in hearing or vision, no nose bleeds or other nasal problems NECK: Negative for lumps, goiter, pain and significant neck swelling RESPIRATORY: Negative for cough, wheezing or shortness of breath. CARDIOVASCULAR: Negative for chest pain, leg swelling or palpitations. GI: Negative for abdominal discomfort, blood in stools or black stools or change in bowel habits : No history of dysuria, frequency or incontinence MUSCULOSKELETAL: Negative for joint pain or swelling, back pain or muscle pain. SKIN: Negative for lesions, rash, and itching. PSYCH: Negative for sleep disturbance, mood disorder and recent psychosocial stressors. Positive for anxiety. HEMATOLOGY/LYMPHOLOGY Negative for prolonged bleeding, bruising easily or swollen nodes. ENDOCRINE: Negative for cold or heat intolerance, polyuria, polydipsia and goiter. NEURO: No history of headaches, syncope, paralysis, seizures or tremors NET FLUID BALANCE No intake or output data in the 24 hours ending 02/11/18 0448 MEDICATIONS Hospital/inpatient medications reviewed PHYSICAL EXAM: INDWELLING CATHETERS: No central line. Goldstein Catheter: Yes, external urinary drain. Other Lines/Drains: 2x PIVs BP 122/72 Pulse 108 Resp (!) 46 Ht 160 cm (5' 3) SpO2 95% BMI 61.82 kg/m? HEENT: Oral Mucosa: Moist mucous membranes Feeding Tube: No Eyes: PERRLA Neck: Unremarkable; No adenopathy or JVD Cardiovascular: Irregular rhythm and tachycardic Relevant Hemodynamic Data: Respiratory: Reduced breath sounds (R) and Reduced breath sounds (L). Left is worse than Right. The patient was on 5L of oxygen by [place]. She is sleeping now on Bipap (14/8 with 40% FiO2) Abdomen: Soft and Distended Extremities: Edema- Yes Peripheral Pulses- Present all extremities Skin: Abnormalities- No Breakdown- No Neurologic: Awake, oriented and Alert NUTRITION: Regular diet Enteral Feeds: No DATA: Laboratory: CBC: Recent Labs 02/11/18 0310 WBC 12.02* HB 12.6 HCT 39.2 PLT 203 MCV 89.9 RDWCV 13.6 NEUTP 69.4 ABSNEUT 8.34* LYMPHP 16.3 MONOP 12.3 EODINP 1.9 COAG: No results for input(s): APTT, INR in the last 168 hours. BMP: Recent Labs 02/11/18309 GLUC 113* NA 139 K 3.3* CHLOR 91* CO2 32* ANION 16 BUN 21 CREAT 1.33* CHEM: Recent Labs 02/11/18309 ALB 4.0 TPROT 6.7 CA 9.9 MG 2.0 HEPATIC: Recent Labs 02/11/18309 ALKPHOS 94 ALT 18 AST 18 TBILI 0.7 URINALYSIS:No results for input(s): PH, SPGR, UGLUC, UBILI, UKET, UHB, UPROT, UROBIL, UWBC, SSA in the last 168 hours. Invalid input(s): NITR CARDIAC: No results for input(s): CKTEST, CKMB, CKMBP, TROPT, PBNP in the last 168 hours. EKG: most recent image reviewed TELE: most recent recordings reviewed CXR: most recent image reviewed Echocardiogram: most recent image reviewed Cardiac Catheterization: most recent image reviewed Radiology: most recent image reviewed ASSESSMENT AND PLAN: Active Hospital Problems Diagnosis - Atrial fibrillation (HCC) Admission Date: 02/11/2018 Day #: 1 in the MICU. Global Impression: This is a 67 yo female with a PMH of COPD, CECILIA, CHF, and atrial flutter who presents to our hospital with uncontrolled atrial flutter, pleural effusions, and significant shortness of breath from an OSH. System-based Problem List: Respiratory: The patient presently has significant oxygen requirements of 5L by NC (up from 2L at home) and is needing Bipap to sleep at night. This was noted in her outside records to be due to COPD, but may also be due to pulmonary edema and effusions from worsening of her heart failure. Plan 1. Order chest x-ray to characterize pleural effusions 2. Continue oxygen by NC to maintain saturations > 92% 3. Provide Bipap QHS 4. Continue diuresis with furosemide and monitor I/Os 5. Consider thoracentesis for left pleural effusion CV/Pressors: The patient has refractory atrial flutter despite treatment with amiodarone and 3x DC cardioversions at an OSH. Her rate persistently fluctuates from the high 90s to the low 120s. She was taken off of Xarelto for anticoagulation at the OSH in anticipation of a cardiac procedure. The patient reports a history of CHF. Plan 1. Restart BID metoprolol for rate control 2. Provide 5000 U BID subq heparin and transition to weight- based dosing of Lovenox (1 mg/kg) when procedures are ruled out 3. ECHO to characterize extent of heart failure 4. Cardiology consult for guidance on management of refractory a-flutter GI: No acute issues. The patient has an existing diagnosis of GERD. Plan 1. Continue Protonix 20 mg daily ID: This patient was being treated at the OSH for the past three days with Levaquin for a suspected pneumonia based on a CXR that showed consolidation in the RUL. Blood cultures were pending at the OSH at the time that the patient was transferred here. Plan 1. Repeat chest x-ray 2. Request blood culture final results from OSH 3. Assess for clinical and diagnostic signs of infection to determine whether continuing an antibiotic is warranted Renal: The patient's current Cr is 1.33 which is up from 1.05 on 02/05 at the OSH. This may be an EKATERINA caused by aggressive diuresis at the OSH, which was reported to have removed 20 L of fluid in the past week. Plan 1. Continue to monitor kidney function Endo: No acute issues. Neuro/Psych: No acute issues. Eyes/Skin: No acute issues. PATIENT CHECKLIST ? Are restraints necessary: Yes. Order written? Yes ? Deep vein thrombosis prophylaxis administered? No. Contraindicated. ? Stress ulcer prophylaxis? Yes ? Nasogastric tube? No ? Goldstein catheter necessary? Yes ? Is central line essential? No ? Plan discussed with assigned RN? Yes ? Family updated within last 24 hours? Yes Code/Social/Dispo: Code Status: Full Code Case to be discussed with Dr. Kwasi Rodriguez MD PhD, PGY-1 Pager: [phone] Date of Service: February 11, 2018 Time of Service: 3:14 AM Previous Version Kwasi Mariano MD 02/11/2018 12:38 PM Signed [facility] STAFF PHYSICIAN NOTE OF PERSONAL INVOLVEMENT IN CARE I have reviewed the history and physical examination obtained and documented by the resident and I personally participated in the arceo components. I have discussed the case and management of the patient's care. The following comments revise or confirm relevant arceo components of the note. IMPRESSION: 67 yo F Obesity BMI > 50 H/o endometrial cancer MICU admission acute on chronic diastolic CHF, acute respiratory failure with hypoxia, afib with RVR, left pleural effusion PLAN: suppl O2 NIPPV as needed D/c diltiazem, amiodarone Start metoprolol US chest Consider repeat left thoracentesis vs left pigtail catheter Patient/Family Updated This patient has a high probability of sudden, clinically significant deterioration, which requires the highest level of physician preparedness to intervene urgently. I managed/supervised life or organ supporting interventions that required frequent physician assessment. I devoted my full attention to the direct care of this patient for the amount of time indicated below. Time I spent with family or surrogate(s) is included only if the patient was incapable of providing the necessary information or participating in medical decision making. Time devoted to teaching and to any procedures I billed separately is not included. Critical Care Documentation: The patient has the following organ/system impairment(s): Acute heart failure (Diastolic) Time spent providing critical care services: 35 minutes. SIGNATURE: Kwasi Mariano MD [facility] PAGER:[phone] DATE of SERVICE: 02/11/2018 TIME of SERVICE: 12:37 PM Attila Dsouza MD 02/11/2018 12:12 PM Cosign Needed CHEST ULTRASOUND NAME: Alba Flores AGE: [age] year old SERVICE DATE: 02/11/2018 SERVICE TIME: 10:15 AM REASON FOR EXAMINATION: Assessment of Left pleural effusion REQUESTING PHYSICIAN: Kwasi Mariano MD IMPRESSION: Large left sided pleural effusion which appears to be complex with hyperechoic regions within the fluid and possibly loculations TECHNIQUE: Ultrasound of the chest performed bilaterally in semi recumbent using a low frequency probe. STUDY LIMITATIONS: Body habitus RIGHT CHEST: Aeration Pattern: Predominant A-lines Lung Sliding: present Pleural Effusion: absent Comments: Predominantly normal appearing lung LEFT CHEST: Aeration Pattern: Predominant A-lines and Consolidation Lung Sliding: present Pleural Effusion: present Size: large Location: Large effusion occupying more than the lower third of the hemithorax Character: complex, possibly loculated Assessible: Yes Comments: Large left sided pleural effusion which appears to be complex with hyperechoic regions within the fluid and possibly loculations specially posteriorly. The underlying lower lobe is consolidated/atelectatic INTERPRETING PHYSICIAN: Attila Dsouza MD PHONE: [phone] DATE: February 11, 2018 TIME: 10:13 AM Previous Version Chaplain Danika 02/11/2018 3:45 PM Signed The patient was anointed. Morgan Winter PA-C 02/12/2018 9:30 AM Edited Assessment: Home meds: diltiazem, metop. Previously on Xarelto which was held d/t vaginal bleeding PLAN: - Continue metop PO 50 mg Q8H - Monitor HR - Holding therapeutic AC while evaluation/management of pleural effusion is ongoing Previous Version Morgan Winter PA-C 02/12/2018 9:28 AM Edited Assessment: Secondary to L pleural effusion on unknown etiology (DDx HF, bleed, malignancy). OSH CT chest (02/10) with large L pleural effusion, COPD. PLAN: - Wean supplemental O2/BIPAP as able - Diagnostic and therapeutic thoracentesis today - Hold further diuresis given EKATERINA Previous Version Morgan Winter PA-C 02/12/2018 9:27 AM Written Assessment: Nonoliguric EKATERINA in setting of diuresis, poor PO intake. Baseline SCr 1.00 PLAN: - Strict IANDO's. Trend BMP. Morgan Winter PA-C 02/12/2018 9:31 AM Written Assessment: Home meds: diltiazem, metop, lisinopril PLAN: - Continue metop for rate control - Resume home antiHTN as needed Morgan Winter PA-C 02/12/2018 9:31 AM Written Assessment: On 2L home O2 PLAN: - Supplemental O2 as needed Morgan Winter PA-C 02/12/2018 9:37 AM Edited Assessment: S/p TAHBSO 2007 c/b recent vaginal bleeding on Xarelto that resolved with antibiotics and discontinuation of anticoagulation PLAN: - Rule out malignant pleural effusion Previous Version Morgan Winter PA-C 02/12/2018 9:39 AM Written MICU PROGRESS NOTE Admission Date: 02/11/2018 Hospital Day # 1 SUBJECTIVE Interval Events: No Change OBJECTIVE Vital Signs (last filed) Range in last 24h Temp: 36.4 ?C (97.6 ?F) (02/12/18 0800) Temp Min: 35.9 ?C (96.6 ?F) Max: 36.6 ?C (97.8 ?F) Pulse: 78 (02/12/18 0800) Pulse Min: 77 Max: 124 Resp: 18 (02/12/18 0800) Resp Min: 16 Max: 40 BP: 112/78 (02/12/18 0800) BP Min: 93/61 Max: 135/80 MAP Non Invasive (Mean Arterial Pressure): 91 (02/12/18 08) MAP Non Invasive (Mean Arterial Pressure) Min: 73 Max: 100 No Data Recorded SpO2: 98 % (02/12/18 08) SpO2 Min: 96 % Max: 99 % Pain Score: 0/10 (02/12/18 08) Fluid Balance: Intake/Output Summary (Last 24 hours) at 02/12/18 0659 Last data filed at 02/12/18 06 Gross per 24 hour Intake 480 ml Output 1700 ml Net -1220 ml Last Weight: (!) 140.4 kg (309 lb 8.4 oz) (02/12/18 0500) Admit Weight: (!) 141.8 kg (312 lb 9.8 oz) (02/11/18 0600) DIET ELECTROLYTE CONTROLLED Lines, Drains, and Airways Line Peripheral 02/11/18 0205 Assessment Short Left Forearm 22 Gauge 1 day Peripheral 02/11/18 0309 Right Forearm 22 Gauge 1 day Drain External Urinary Drain 02/11/18 0205 Assessment 1 day Vent/Oxygen: BIPAP Physical Examination Performed Oral Mucosa: Dry mucous membranes Eyes: PERRL Cardiovascular: Irregular rhythm Respiratory: Reduced breath sounds (L) Abdomen: Soft, Nontender and Positive bowel sounds Extremities: Edema- No Peripheral Pulses- Present all extremities Capillary Refill- less than 3 seconds Skin: Abnormalities- No Breakdown- See engineering drawings checker Neurologic: Awake, oriented, Alert, Follows commands and Moving all extremities Infusion Medications Diagnostic tests reviewed today: Most recent labs and imaging results. PATIENT CHECKLIST ? Are restraints necessary: No ? Deep vein thrombosis prophylaxis administered? Yes ? Stress ulcer prophylaxis? Yes ? Nasogastric tube? No ? Goldstein catheter necessary? Yes ? Is central line essential? No ? Plan discussed with assigned RN? Yes ? Family updated within last 24 hours? Yes Morgan Winter PA-C 02/12/2018 9:40 AM Signed SERVICE DATE: 02/12/2018 SERVICE TIME: 9:39 AM MICU PROGRESS NOTE Admission Date: 02/11/2018 Hospital Day # 1 SUBJECTIVE Interval Events: No Change OBJECTIVE Vital Signs (last filed) Range in last 24h Temp: 36.4 ?C (97.6 ?F) (02/12/18 08) Temp Min: 35.9 ?C (96.6 ?F) Max: 36.6 ?C (97.8 ?F) Pulse: 78 (02/12/18 08) Pulse Min: 77 Max: 124 Resp: 18 (02/12/18799) Resp Min: 16 Max: 40 BP: 112/78 (02/12/18799) BP Min: 93/61 Max: 135/80 MAP Non Invasive (Mean Arterial Pressure): 91 (02/12/18799) MAP Non Invasive (Mean Arterial Pressure) Min: 73 Max: 100 No Data Recorded SpO2: 98 % (02/12/18799) SpO2 Min: 96 % Max: 99 % Pain Score: 0/10 (02/12/18799) Fluid Balance: Intake/Output Summary (Last 24 hours) at 02/12/18 0659 Last data filed at 02/12/18 06 Gross per 24 hour Intake 480 ml Output 1700 ml Net -1220 ml Last Weight: (!) 140.4 kg (309 lb 8.4 oz) (02/12/18 0500) Admit Weight: (!) 141.8 kg (312 lb 9.8 oz) (02/11/18 0600) DIET ELECTROLYTE CONTROLLED Lines, Drains, and Airways Line Peripheral 02/11/18 0205 Assessment Short Left Forearm 22 Gauge 1 day Peripheral 02/11/18 0309 Right Forearm 22 Gauge 1 day Drain External Urinary Drain 02/11/18204 Assessment 1 day Vent/Oxygen: BIPAP Physical Examination Performed Oral Mucosa: Dry mucous membranes Eyes: PERRL Cardiovascular: Irregular rhythm Respiratory: Reduced breath sounds (L) Abdomen: Soft, Nontender and Positive bowel sounds Extremities: Edema- No Peripheral Pulses- Present all extremities Capillary Refill- less than 3 seconds Skin: Abnormalities- No Breakdown- See engineering drawings checker Neurologic: Awake, oriented, Alert, Follows commands and Moving all extremities Infusion Medications Diagnostic tests reviewed today: Most recent labs and imaging results. PATIENT CHECKLIST ? Are restraints necessary: No ? Deep vein thrombosis prophylaxis administered? Yes ? Stress ulcer prophylaxis? Yes ? Nasogastric tube? No ? Goldstein catheter necessary? Yes ? Is central line essential? No ? Plan discussed with assigned RN? Yes ? Family updated within last 24 hours? Yes CARE COORDINATION: Patient Summary: 67 yo female with a h/o CHF, A fib, HTN, COPD, endometrial cancer who was transferred to [facility] MICU from OSH on 02/11 for further management of acute hypoxic respiratory failure, L pleural effusion, and AFib RVR. Major Interval Events: 02/11: Reuqired BIPAP most of the day for WOB. Bedside US with mod-large L pleural effusion, possibly loculated. Net negative 1.2L, bump in SCr to 1.4. Plan for the day: Diagnostic and therapeutic thoracentesis Wean BIPAP Hold off on further diuresis today. Monitor UOP, kidney function. Monitor HR, up titrate PO rate control as needed Remains in MICU Discussed with MICU staff ASSESSMENT AND PLAN Overview, Assessment AND Plan, all Hosp Problems Active Hospital Problems as of 02/12/2018 Noted - Resolved Cardiovascular HTN (hypertension) Unknown - Present Current Assessment AND Plan Assessment: Home meds: diltiazem, metop, lisinopril PLAN: - Continue metop for rate control - Resume home antiHTN as needed Atrial fibrillation ([facility]) 02/11/2018 - Present Current Assessment AND Plan Assessment: Home meds: diltiazem, metop. Previously on Xarelto which was held d/t vaginal bleeding PLAN: - Continue metop PO 50 mg Q8H - Monitor HR - Holding therapeutic AC while evaluation/management of pleural effusion is ongoing Pulmonary COPD (chronic obstructive pulmonary disease) ([facility]) 02/11/2018 - Present Current Assessment AND Plan Assessment: On 2L home O2 PLAN: - Supplemental O2 as needed Respiratory failure ([facility]) 02/12/2018 - Present Current Assessment AND Plan Assessment: Secondary to L pleural effusion on unknown etiology (DDx HF, bleed, malignancy). OSH CT chest (02/10) with large L pleural effusion, COPD. PLAN: - Wean supplemental O2/BIPAP as able - Diagnostic and therapeutic thoracentesis today - Hold further diuresis given EKATERINA Nephrology EKATERINA (acute kidney injury) ([facility]) 02/12/2018 - Present Current Assessment AND Plan Assessment: Nonoliguric EKATERINA in setting of diuresis, poor PO intake. Baseline SCr 1.00 PLAN: - Strict IANDO's. Trend BMP. Oncology Endometrial cancer, grade I (HCC) 01/17/2015 - Present Current Assessment AND Plan Assessment: S/p DEANDRA 2006 c/b recent vaginal bleeding on Xarelto that resolved with antibiotics and discontinuation of anticoagulation PLAN: - Rule out malignant pleural effusion Other Obesity, Class III, BMI >= 40 02/11/2018 - Present Medication and Non-Pharmacologic VTE Prophylaxis/Anticoagulants Anticoagulant AND Antiplatelet Medications Start Dose Route Frequency Ordered Stop 02/11/18 0330 heparin 5,000 Units injection 5,000 Units SUBCUTANEOUS EVERY 12 HOURS 02/11/18 0311 -- 02/11/18 0245 pneumatic compression stockings ([place], [place]) 02/11/18 0245 activity - mobilize patient ([place]) VTE Prophylaxis: VTE prophylaxis appropriate Plan of care discussed with: ICU Team SIGNATURE: Morgan Winter PA-C PATIENT NAME: Alba Flores DATE: February 12, 2018 TIME: 9:39 AM PAGER/CONTACT #: [phone] JASEN Han 02/12/2018 12:10 PM Signed CARE MANAGEMENT: ASSESSMENT AND DISCHARGE PLAN SERVICE DATE: 02/12/2018 SERVICE TIME: 12:00 PM PRIMARY CARE PHYSICIAN: Sanchez Spears MD ADMISSION STATUS: Inpatient Needs Prior to Discharge: To Be Determined 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 Last Admission Date: none Is this Within the Past 30 days? No Advance Directive: Current Advance Directive: Health Care Power of Industrial Design Engineer In Chart: No Cruise Consultant Attempted to Assist with AD Completion: Yes Action: Education Provided;Patient Unwilling Health Literacy: 1. How often do you need to have someone help you when you read instructions, pamphlets, or other written material from your doctor or pharmacy? Rarely - 2 2. How confident are you filling out medical forms by yourself? Extremely - 1 If Patient scores > 3 on either question, the following interventions were put into place: Patient did not score > 3 FUNCTIONAL AND COGNITIVE/BEHAVIORAL PRIOR TO ADMISSION: Baseline Mental Status: Alert AND Oriented, Person, Place , Time and Situation Functional Status: Independent Does Patient Currently Receive Any Community Services or Home Care? None Equipment Prior to Admission: Hospital Bed Oxygen 2 liters per minute Tub bench/chair Walker Has the Patient Been in a Fpc Facility in the Past 30 days? No SOCIAL: Living Arrangement: Home Lives With: Spouse Financial Resources: Retired Primary Contact: Extended Emergency Contact Information Primary Emergency Contact: Jessica Flores Mobile Relation: Daughter Secondary Emergency Contact: Sharan Flores Mobile Relation: Relative Supportive: Yes Other Important Patient Contacts: None Caregiver Assessment: Caregiver is ready, willing and able to meet the patient's needs as recommended by the inter-professional team? TBD Patient's transition needs and plan for meeting these needs: TBD Does the patient have an acute stroke diagnosis, or has the patient had a stroke during this admission? No Medication Adherence: I am convinced of the importance of my prescription medication: Agree mostly - 0 I worry that my prescription medication will do more harm than good to me Disagree mostly - 0 I feel financially burdened by my xme-at-aszyal expenses for my prescription medication: Disagree mostly -0 Patient is categorized as low risk < 2 Are you interested in bedside delivery of your medications? Yes Food Concerns: In the Last Month, Have You had Trouble Getting Food? No trouble getting food During the Last Month, Have You Worried Whether Your Food Would Run Out Before You Had Enough Money to Buy More? No Is the Patient Psychosocially Complex? Yes, refer to Social Work. ASSESSMENT AND PLAN: Medical Needs: 2 or more chronic diseases, Obesity and Respiratory Insufficiency - Oxygen Psychosocial Needs: None FREEDOM OF CHOICE EXPLAINED: CM will discuss this with pt when it is more appropriate POTENTIAL TRANSITION PLANS To Be Determined SW met with pt at bedside to complete this assessment. SW introduced herself and explained SW role. Pt is a 67 year old female who transferred from [facility] to [facility] MICU for further management of care Pt has hx of: CHF, COPD, obesity, HTN, GERD and Afib. Pt is currently on 6L NC. Pt reported, I have home I use 2L O2 at home (unable to recall O2 provider), I have hospital bed, shower chair, I have home health aides but I can't remember name of CABLE SUPERVISOR. I was supposed to get a BiPAP machine but I haven't received it yet, I'm supposed to go to the hospital to sign for it and then I can pick it up from them but it hasn't happened yet. SW used active listening skills and provided emotional support. Needs TBD, waiting for PT/OT recs, if pt continues to require increased O2 requirements, pt will need destat study complete prior to discharge. SW will continue to follow. SIGNATURE: JASEN Han PATIENT NAME: Alba Flores DATE: February 12, 2018 TIME: 12:00 PM PAGER/CONTACT #: [phone] Michelle Russell MD 02/12/2018 4:11 PM Addendum Attending Note I have personally performed a face to face assessment of the patient and have reviewed the PA/NETWORK CONTROL TECHNICIAN note. My arceo findings include: Assessment/Plan are 67 yo female with CHF, A fib, COPD, endometrial cancer who was transferred to [facility] MICU from OSH on 02/11 for further management of acute hypoxic respiratory failure, L pleural effusion, and AFib RVR. ACute respiratory failure: BIPAP and high flow O2 support Large L pleural effusion: thoracentesis today. Possible hemothorax vs malignancy, vs infection. EKATERINA: hold lasix and monitor lytes Close observation in ICU ?DVT prophylaxis L thoracentesis done and was bloody with pleural fluid HCT similar to peripheral blood. Suspect hemothorax. Thoracic surgery consulted. Will likely need large bore CT. Repeat CBC. No change in hemodynamic profile. This patient has a high probability of sudden, clinically significant deterioration, which requires the highest level of physician preparedness to intervene urgently. I managed/supervised life or organ supporting interventions that required frequent physician assessment. I devoted my full attention to the direct care of this patient for the amount of time indicated below. Time I spent with family or surrogate(s) is included only if the patient was incapable of providing the necessary information or participating in medical decision making. Time devoted to teaching and to any procedures I billed separately is not included. Critical Care Documentation: The patient has the following organ/system impairment(s): Respiratory failure (Acute) Time spent providing critical care services: 35 minutes. SIGNATURE: Michelle Russell MD [facility] PAGER:[phone] DATE of SERVICE: 02/12/18 TIME of SERVICE: 11am Previous Version Marcus Lucas MD 02/12/2018 2:39 PM Signed BEDSIDE PROCEDURE NOTE THORACENTESIS Performed by: NATHEN FOREMAN ([place]) Authorized by: MARCUS LUCAS Consent/[place] Protocol Written Consent Obtained: Yes Sign In Communication: Completed Time Out completed: Team confirms correct patient, procedure, side/site, position (if applicable) and completion AND review of fire risk assessment/protocols (if appropriate) Affirmation of Time Out: Yes Sign Out Discussion: Yes Pre-procedure Details: PPE Used: Sterile gloves, sterile gown, mask and cap The area was prepped with chlorhexidine (Chloroprep) and allowed to dry. A sterile partial body drape was applied following the usual aseptic technique. Medications: Local anesthesia Local Anesthesia (see MAR): Lidocaine 1% Procedure Details: Procedure Purpose: Diagnostic and therapeutic Indication: Pleural effusion Patient Position: Sitting Imaging Guidance Used: Yes, image captured Depth to Fluid Pocket: 10 cm Location: Left posterior Intercostal Space: 8th Approach: Percutaneous Puncture Method: [id number] catheter The thoracentesis catheter was inserted. Contact was made with the periosteum of the rib and was walked over the superior aspect of the rib and advanced until the pleural space was entered and bloody fluid was returned. The needle was removed. Drainage Amount (ml): 1800 Drainage Device: No Catheter (post-procedure): Removed Reason for Stopping Procedure: Patient discomfort Post-procedure X-ray: Pending Number of attempts: 1 Post-procedure Details: Patient tolerated the procedure well with no immediate complications Estimated Blood Loss: Scant Specimens Sent: Cell count with diff, pH, total protein, triglycerides, gram stain, glucose, culture, cytology, LDH and ADA SIGNATURE: Nathen Foreman MD PATIENT NAME: Alba Flores DATE: February 12, 2018 TIME: 12:59 PM PAGER/CONTACT #: I was present and supervised the entire procedure Marcus Lucas MD Pager : [phone] February 12, 2018 Previous Version Crissy Fischer MD 02/12/2018 5:13 PM Signed [facility] THOR[facility] SURGERY CONSULT NOTE Alba Flores [id number] Requesting Provider: Dr. Russell Cardiothoracic Physician: Willie Amaya MD Admit Date: 02/11/2018 LOS : 1 Chief Complaint: Left effusion vs hemothorax HPI: (document at least 4 of these elements) Location: left Quality: acute Severity: n/a Duration: n/a Timing: n/a Context: On Xarelto Modifying factors: None Associated signs and symptoms: Progressive dyspnea x 1 week prior to admission Unintentional weight loss over last 3 months: No 67 yo female with CHF, A fib, COPD, CKD, super morbid obesity (BMI 54), hx of endometrial cancer who was transferred to [facility] MICU from OSH on 02/11 for further management of acute hypoxic respiratory failure, L pleural effusion, and AFib RVR. Patient presented to [facility] on 02/04 with 1 week history of progressive dyspnea, orthopnea and was found to have a left pleural effusion which was drained with thoracentesis (150ml bloody fluid reportedly). The effusion recurred and the patient was transferred to [facility] for further management. Patient is s/p second thoracentesis today with 1800ml of bloody fluid. Thoracic Surgery consulted for recommendations regarding recurrent effusion/hemothorax. Patient denies hx of pleural effusions. She was recently diagnosed with Afib in September and started on Xarelto. Denies trauma to the chest. Former smoker (30 years ago, smoked for 5-6 years). No alcohol use. PAST MEDICAL HISTORY: PAST MEDICAL HISTORY Diagnosis Date - Atrial flutter (HCC) - Borderline diabetes 12/2014 - COPD (chronic obstructive pulmonary disease) (HCC) - Endometrial cancer, grade I (HCC) 12/2014 - GERD (gastroesophageal reflux disease) - HTN (hypertension) 12/2014 - Morbid obesity with BMI of 60.0-69.9, adult (HCC) - CECILIA (obstructive sleep apnea) - Osteopenia PAST SURGICAL HISTORY: PAST SURGICAL HISTORY Procedure Laterality Date - APPENDECTOMY - LAP, SUPRACERVIAL HYSTERECTOMY W/ TUBEANDOV, <250G 2014 - TUBAL LIGATION HX FAMILY HISTORY: FAMILY HISTORY Problem Relation Age of Onset - COPD Mother - Heart Mother - Heart Father - Colon Cancer Sister SOCIAL HISTORY: Social History Substance Use Topics - Smoking status: Former Smoker Packs/day: 1.00 Years: 5.00 Types: Cigarettes Quit date: 04/17/1984 - Smokeless tobacco: Never Used Comment: still smokes in the home - Alcohol use Yes Comment: rarely MEDICATIONS: Prior to Admission Medications: rivaroxaban (XARELTO) 20 mg tablet Take 1 tablet by mouth DAILY AT [address] (PROTONIX) 20 mg tablet Take 1 tablet by mouth once daily. diltiazem (CARDIZEM) 60 mg tablet Take 1 tablet by mouth three times daily. metoprolol tartrate, short acting, (LOPRESSOR) 50 mg tablet Take 1 tablet by mouth twice daily. calcium carbonate-vitamin D3 500-100 mg-unit chewable tablet Take 1 tablet by mouth once daily. Menthol-Zinc Oxide (CALMOSEPTINE) 0.44-20.6 % Apply 1 application to affected area twice daily. OXYGEN, HOME THERAPY, 2 L/min by Nasal Cannula route as directed. omeprazole (PRILOSEC) 20 mg capsule Take 1 capsule by mouth once daily. DOCOSAHEXANOIC ACID/EPA (FISH OIL ORAL) Take by mouth. nystatin (NYSTOP) powder Apply 1 application to affected area three times daily. aspirin 81 mg chewable tablet Take 1 tablet by mouth once daily. Patient is taking daily since she can't afford Xarelto lisinopril (ZESTRIL, PRINIVIL) 20 mg tablet Take 1.5 tablets by mouth once daily. ALLERGIES: ALLERGIES Allergen Reactions - Asa [Aspirin] GI Upset Chemical Exposure: No Asbestos Exposure No COMPLETE REVIEW OF SYSTEMS Constitutional: No weight loss, malaise or fevers. HEENT: Negative for frequent or significant headaches Resp: Negative for cough, wheezing, or shortness of breath Cardiovascular: Negative for chest pain, leg swelling or palpitations GI: Negative for abdominal discomfort, blood in stools or black stools or change in bowel habits : No history of dysuria, frequency, or incontinence Musculoskeletal: Negative for joint pain or swelling, back pain or muscle pain Endo: Negative for cold or heat intolerance, polyuria, polydipsia and goiter Neurologic: No history or headaches, syncope, paralysis, seizures or tremors Integumentary: Negative for lesions, rash, and itching. Pain: Negative for pain, history of chronic pain, or current treatment for a chronic pain condition Additional systems reviewed: No additional systems reviewed PHYSICAL EXAM Constitutional: Well developed, Obese and No acute distress HEENT: No lesions Resp: Decreased breath sounds and Respiratory effort: normal Cardiovascular: Irregularly irregular, normal S1 and S2 GI: Soft Integumentary: Warm Musculoskeletal: Mild venostasis changes of BLE Neurological/Psychiatric: Oriented to time, place AND person and Alert Additional systems reviewed: No additional systems reviewed DATA: Laboratory: Recent Labs 02/12/18 1327 02/11/185 02/11/18 0310 WBC -- 9.23 12.02* HB -- 12.4 12.6 HCT 33.9* 40.3 39.2 PLT -- 203 203 Recent Labs 02/11/18232402/11/18 0310 NA 139 139 K 4.0 3.3* BUN 26* 21 CREAT 1.41* 1.33* GLUC 112* 113* MG -- 2.0 Radiology: 02/12/2018 (post-thoracentesis) IMPRESSION: Lines, tubes, and devices: ?None. Lungs and pleura: ?There is a small to medium-sized left pleural effusion, which appears decreased in size in the interval. ?Correlate for interval thoracentesis. ?Adjacent opacity at the left lung base is most commonly due to atelectasis although superimposed pneumonia/aspiration in this region is not excluded. ?Mild atelectasis at the right lung base. ? No pulmonary edema. ?No substantial pneumothorax. Cardiomediastinal silhouette: ?The cardiomediastinal silhouette is enlarged, incompletely assessed as the left heart border remains partially obscured. I have personally reviewed the following images/data: Chest X-ray and CT scan Impression: 67 yo female with CHF, A fib, COPD, CKD, super morbid obesity (BMI 54), hx of endometrial cancer who was transferred to [facility] MICU from OSH on 02/11 for further management of Afib with RVR, acute hypoxic respiratory failure and L pleural effusion vs hemothorax. Plan: -Recommend imaging guided pigtail catheter placement, largest bore catheter 12-14Fr recommended -Will continue to follow Discussed with staff SIGNATURE: Crissy Fischer MD PAGER: [phone] DATE of SERVICE: 02/12/2018 TIME of SERVICE: 4:59 PM Stacy Rodriguez APRN.DAWSON 02/13/2018 12:56 PM Signed SERVICE DATE: 02/13/2018 SERVICE TIME: 6:50 AM MICU PROGRESS NOTE Admission Date: 02/11/2018 Hospital Day # 2 HPI SUBJECTIVE Interval Events: No Change OBJECTIVE Vital Signs (last filed) Range in last 24h Temp: 36.9 ?C (98.4 ?F) (02/13/18 0800) Temp Min: 36.6 ?C (97.9 ?F) Max: 37.4 ?C (99.3 ?F) Pulse: 86 (02/13/18 1000) Pulse Min: 80 Max: 120 Resp: 22 (02/13/18 1000) Resp Min: 17 Max: 54 BP: 81/51 (02/13/18 1000) BP Min: 81/51 Max: 121/50 MAP Non Invasive (Mean Arterial Pressure): 60 (02/13/18 1000) MAP Non Invasive (Mean Arterial Pressure) Min: 56 Max: 93 No Data Recorded SpO2: 96 % (02/13/18 1000) SpO2 Min: 92 % Max: 98 % Pain Score: 0/10 (02/13/18 0800) Fluid Balance: Intake/Output Summary (Last 24 hours) at 02/13/18 0659 Last data filed at 02/13/18 06 Gross per 24 hour Intake 14 ml Output 1740 ml Net -1726 ml Last Weight: (!) 141 kg (310 lb 13.6 oz) (02/13/18 0500) Admit Weight: (!) 141.8 kg (312 lb 9.8 oz) (02/11/18 0600) DIET NPO Lines, Drains, and Airways Line Peripheral 02/13/18 0000 Right Forearm 20 Gauge less than 1 day Peripheral 02/13/18 0000 Short Right Forearm 20 Gauge less than 1 day Drain External Urinary Drain 02/12/18 0205 Assessment 1 day Vent/Oxygen: 6L NC / BiPAP HS Physical Examination Performed Oral Mucosa: Moist mucous membranes Eyes: PERRL Neck: Unremarkable; No JVD Cardiovascular: Irregular rhythm Respiratory: Reduced breath sounds bilat Abdomen: Soft and Distended Extremities: Edema- Yes Peripheral Pulses- Present all extremities Capillary Refill- less than 3 seconds Skin: Abnormalities- No Breakdown- Please refer to nursing documentation Neurologic: Awake, oriented, Alert, Follows commands and Moving all extremities Diagnostic tests reviewed today: Most recent labs and imaging results. PATIENT CHECKLIST ? Are restraints necessary: No ? Deep vein thrombosis prophylaxis administered? No. Contraindicated. ? Stress ulcer prophylaxis? No, not indicated. ? Nasogastric tube? No ? Goldstein catheter necessary? No ? Is central line essential? No ? Plan discussed with assigned RN? Yes ? Family updated within last 24 hours? Yes CARE COORDINATION: Patient Summary: 67 year old female with the above past medical history who presents with shortness of breath and atrial flutter from the [facility]. She presented to their ED on 02/04 with complaints of SOB. She was noted to have chronic hypoxic respiratory failure requiring 2L/min supplemental oxygen. Her last pulmonary function testing was completed in 12/2017 and revealed evidence of an irreversible severe mixed ventilatory defect with a symmetric reduction in diffusing capacity. She has a history of atrial flutter with rapid ventricular response. She has undergone at least three prior DC cardioversions, which have been unsuccessful. She was then referred to EP for possible ablation therapy. On 02/04 during her admission to the [facility] ED, this patient was afebrile, tachycardic, and tachypnic. She was placed on IV diuretics initially, and on 02/07 antibiotics (Levaquin) were added for a suspected pneumonia. ? This patient required a thoracentesis at the [facility] on 02/07 to evacuate a left-sided pleural effusion. A total of 150 mL of bloody fluid was drained. The yield may have been limited by loculation. A repeat chest xray on 02/09 showed expansion of this left-sided pleural effusion, and a chest xray on 02/10 showed the same with a pleural effusion on the right side as well. The patient's notes from her OSH describe her atrial flutter as being refractory to IV Lopressor, which is why she was instead put on a Cardizem drip in addition to an amiodarone drip. She was on these at the time of her arrival to our hospital. In addition, despite diuresis of approximately 20 L during her stay at [facility], the care providers there were unable to remove enough fluid to improve the patient's SOB. She was receiving 40 mg PO furosemide BID. They felt like she might benefit from chest tube placement or a VATS at our hospital. The patient was off of Xarelto while at the OSH, and the plan was to start Lovenox at a 1 mg/kg dose BID once any procedures were completely ruled out. Major Interval Events: 02/11: Reuqired BIPAP most of the day for WOB. Bedside US with mod-large L pleural effusion, possibly loculated. Net negative 1.2L, bump in SCr to 1.4. 02/12: Afebrile. Maintained on ~8 hours of BiPAP overnight - currently on 2L NC. A left sided thoracentesis performed yesterday (1.8L extracted, appears to be exudate). CTS prefers to have pigtail placed in IR - scheduled for today. This morning, slightly hypotensive and scheduled Metoprolol was held. Plan for the Day: - Weaning oxygen as tolerated - Nasal cannula during the day --- BiPAP HS - CXR daily - F/U on diagnostic and therapeutic thoracentesis from 02/12/18 - F/U with CTS recommendations - F/U with [facility] Radiology read of OSH CT Chest on 02/10/18 - Scheduled for pigtail catheter in IR today --- per CTS, will require a 12-14F - Rule out malignant pleural effusion --- cytology pending from thoracentesis - F/U with IR recommendations post procedure - Holding off on further diuresis today --- assessing daily - Monitor UOP, and kidney function - Holding Lisinopril as well - Continue (lowered dose) of Metoprolol for AFib --- holding for HR <60 and/or SBP <90 - Holding Cardizem and Xeralto (on for AFib also) - NPO for procedure - PT/OT, OOB as tolerated - Plan discussed with MICU staff ASSESSMENT AND PLAN Assessment AND Plan, all Hosp Problems Active Hospital Problems as of 02/13/2018 Noted - Resolved Mild COPD (chronic obstructive pulmonary disease) ([facility]) 02/11/2018 - Present Current Assessment AND Plan Assessment: COPD (on 2L home O2) PLAN: - Supplemental O2 as needed * (Principal)Respiratory failure (HCC) 02/12/2018 - Present Current Assessment AND Plan Assessment: Respiratory Failure Secondary to L pleural effusion on unknown etiology (DDx HF, bleed, malignancy) OSH CT chest (02/10) with large L pleural effusion COPD --- pulmonary function testing was completed in 12/2017 and revealed evidence of an irreversible severe mixed ventilatory defect with a symmetric reduction in diffusing capacity PLAN: - Weaning oxygen as tolerated - Nasal cannula during the day --- BiPAP HS - CXR daily - F/U on diagnostic and therapeutic thoracentesis from 02/12/18 - F/U with CTS recommendations - Scheduled for pigtail catheter in IR today --- per CTS, will require a 12-14F - F/U with IR recommendations post procedure - Holding off on further diuresis today --- assessing daily B HTN (hypertension) Unknown - Present Current Assessment AND Plan Assessment: Hx of HTN Home meds: diltiazem, metop, lisinopril PLAN: - Continue (lowered dose) of Metoprolol for AFib --- holding for HR <60 and/or SBP <90 - Holding Cardizem and Xeralto (on for AFib also) Atrial fibrillation (HCC) 02/11/2018 - Present Current Assessment AND Plan Assessment: Atrial Fibrillation Home meds: diltiazem, metop Previously on Xarelto which was held d/t vaginal bleeding PLAN: - Continue (lowered dose) of Metoprolol for AFib --- holding for HR <60 and/or SBP <90 - Holding Cardizem also - Holding therapeutic AC (Xeralto) while evaluation/management of pleural effusion is ongoing - F/U appointment made in [facility] as an outpatient --- was scheduled for an ablation prior to this admission C EKATERINA (acute kidney injury) (HCC) 02/12/2018 - Present Current Assessment AND Plan Assessment: EKATERINA Nonoliguric EKATERINA in setting of diuresis, poor PO intake. Baseline SCr 1.00 PLAN: - Strict IANDO's - Avoiding nephrotoxic agents - Holding Lisinopril G Endometrial cancer, grade I (HCC) 01/17/2015 - Present Current Assessment AND Plan Assessment: Endometrial cancer, grade I S/p TAHBSO 2006 c/b recent vaginal bleeding on Xarelto that resolved with antibiotics and discontinuation of anticoagulation PLAN: - Rule out malignant pleural effusion --- cytology pending from thoracentesis on 02/12/18 - F/U appointment made in [facility] as an outpatient M Obesity, Class III, BMI >= 40 02/11/2018 - Present Medication and Non-Pharmacologic VTE Prophylaxis/Anticoagulants Anticoagulant AND Antiplatelet Medications Start Dose Route Frequency Ordered Stop 02/11/18 0330 heparin 5,000 Units injection 5,000 Units SUBCUTANEOUS EVERY 12 HOURS 02/11/18 0311 -- 02/11/18 0245 pneumatic compression stockings (il,hi) 02/11/18 0245 activity - mobilize patient (fl,oh) VTE Prophylaxis: Yes Plan of care discussed with: Attending, Patient and RN SIGNATURE: Stacy Rodriguez APRN.CNP PATIENT NAME: Alba Flores DATE: February 13, 2018 TIME: 6:50 AM PAGER/CONTACT #: [phone] Previous Version Stacy Rodriguez APRN.CNP 02/13/2018 10:26 AM Written MICU PROGRESS NOTE Admission Date: 02/11/2018 Hospital Day # 2 HPI SUBJECTIVE Interval Events: No Change OBJECTIVE Vital Signs (last filed) Range in last 24h Temp: 36.9 ?C (98.4 ?F) (02/13/18 0800) Temp Min: 36.6 ?C (97.9 ?F) Max: 37.4 ?C (99.3 ?F) Pulse: 86 (02/13/18 1000) Pulse Min: 80 Max: 120 Resp: 22 (02/13/18 1000) Resp Min: 17 Max: 54 BP: 81/51 (02/13/18 1000) BP Min: 81/51 Max: 121/50 MAP Non Invasive (Mean Arterial Pressure): 60 (02/13/18 1000) MAP Non Invasive (Mean Arterial Pressure) Min: 56 Max: 93 No Data Recorded SpO2: 96 % (02/13/18 1000) SpO2 Min: 92 % Max: 98 % Pain Score: 0/10 (02/13/18 0800) Fluid Balance: Intake/Output Summary (Last 24 hours) at 02/13/18 0659 Last data filed at 02/13/18 0600 Gross per 24 hour Intake 14 ml Output 1740 ml Net -1726 ml Last Weight: (!) 141 kg (310 lb 13.6 oz) (02/13/18 0500) Admit Weight: (!) 141.8 kg (312 lb 9.8 oz) (02/11/18 0600) DIET NPO Lines, Drains, and Airways Line Peripheral 02/13/18 0000 Right Forearm 20 Gauge less than 1 day Peripheral 02/13/18 0000 Short Right Forearm 20 Gauge less than 1 day Drain External Urinary Drain 02/12/18 0205 Assessment 1 day Vent/Oxygen: 6L NC / BiPAP HS Physical Examination Performed Oral Mucosa: Moist mucous membranes Eyes: PERRL Neck: Unremarkable; No JVD Cardiovascular: Irregular rhythm Respiratory: Reduced breath sounds bilat Abdomen: Soft and Distended Extremities: Edema- Yes Peripheral Pulses- Present all extremities Capillary Refill- less than 3 seconds Skin: Abnormalities- No Breakdown- Please refer to nursing documentation Neurologic: Awake, oriented, Alert, Follows commands and Moving all extremities Diagnostic tests reviewed today: Most recent labs and imaging results. PATIENT CHECKLIST ? Are restraints necessary: No ? Deep vein thrombosis prophylaxis administered? No. Contraindicated. ? Stress ulcer prophylaxis? No, not indicated. ? Nasogastric tube? No ? Goldstein catheter necessary? No ? Is central line essential? No ? Plan discussed with assigned RN? Yes ? Family updated within last 24 hours? Yes Stacy Rodriguez APRN.CNP 02/13/2018 10:39 AM Edited Assessment: Respiratory Failure Secondary to L pleural effusion on unknown etiology (DDx HF, bleed, malignancy) OSH CT chest (02/10) with large L pleural effusion COPD --- pulmonary function testing was completed in 12/2017 and revealed evidence of an irreversible severe mixed ventilatory defect with a symmetric reduction in diffusing capacity PLAN: - Weaning oxygen as tolerated - Nasal cannula during the day --- BiPAP HS - CXR daily - F/U on diagnostic and therapeutic thoracentesis from 02/12/18 - F/U with CTS recommendations - Scheduled for pigtail catheter in IR today --- per CTS, will require a 12-14F - F/U with IR recommendations post procedure - Holding off on further diuresis today --- assessing daily Previous Version Stacy Rodriguez APRN.CNP 02/13/2018 10:40 AM Edited Assessment: Hx of HTN Home meds: diltiazem, metop, lisinopril PLAN: - Continue (lowered dose) of Metoprolol for AFib --- holding for HR <60 and/or SBP <90 - Holding Cardizem and Xeralto (on for AFib also) Previous Version Stacy Rodriguez APRN.CNP 02/13/2018 12:52 PM Edited Assessment: Endometrial cancer, grade I S/p TAHBSO 2006 c/b recent vaginal bleeding on Xarelto that resolved with antibiotics and discontinuation of anticoagulation PLAN: - Rule out malignant pleural effusion --- cytology pending from thoracentesis on 02/12/18 - F/U appointment made in [facility] as an outpatient Previous Version Stacy Rodriguez APRN.CNP 02/13/2018 10:41 AM Written Assessment: COPD (on 2L home O2) PLAN: - Supplemental O2 as needed Stacy Rodriguez APRN.DAWSON 02/13/2018 12:52 PM Edited Assessment: Atrial Fibrillation Home meds: diltiazem, metop Previously on Xarelto which was held d/t vaginal bleeding PLAN: - Continue (lowered dose) of Metoprolol for AFib --- holding for HR <60 and/or SBP <90 - Holding Cardizem also - Holding therapeutic AC (Xeralto) while evaluation/management of pleural effusion is ongoing - F/U appointment made in [facility] as an outpatient --- was scheduled for an ablation prior to this admission Previous Version Stacy Rodriguez APRN.CNP 02/13/2018 10:43 AM Written Assessment: EKATERINA Nonoliguric EKATERINA in setting of diuresis, poor PO intake. Baseline SCr 1.00 PLAN: - Strict IANDO's - Avoiding nephrotoxic agents - Holding Lisinopril Progress Notes (CARD AG [facility] POB): Jena Roca 02/05/2018 11:22 AM Signed Patients called in stating she is in hospital therefore they are cancelling new patient appt with Dr. Thornton. Just an FYI as he will be calling back to [facility]. Jena Roca, Resource Management Planner SR-CHEST WITH Observed: 02/10/2018 Status: F Source: [place] CONTRAST - OVERREAD 12:00 AM [facility] REPOSITORY * * *Final Report* * * DATE OF EXAM: Feb 10 2018 12:00AM OUT 0002 - CT OUTSIDE CD DICOM IMPORT -NBNR / PROCEDURE REASON: My interpretation is discrepant with outside interpretation. * * * * Physician Interpretation * * * * EXAMINATION: OUTSIDE IMAGE INTERPRETATION Indication for the Request / Reason for Overread: My interpretation is discrepant with outside interpretation. Specific Issue(s) Discussed: patient with hemothorax. Patient reports syncopal episode with fall at OSH while on therapeutic anticoagulation. Wondering if there is evidence of thoracic trauma? Images Reviewed: CT with contrast of the chest at an unknown facility performed on 02/10/2018 12:00 AM Image Quality: technically adequate images Overread Date: 02/13/2018 12:52 PM MQ: Over_2 Comparison: CT scan of the chest dated 02/04/2015 RESULT: Limitations: None. Lines, tubes, and devices: None. Lung parenchyma and pleura: The trachea and central airways appear patent and devoid of endobronchial lesion. The RUL apical segmental bronchus has a separate origin from the trachea (image 45) a normal anatomic variant. Since the prior exam, there has been development of a nonspecific, relatively large low-density left pleural effusion which layers dependently. There has also been development of a smaller, low-density right pleural effusion also layers dependently. There is associated complete atelectasis of the left lower lobe. There is also dependent atelectasis in the lingula. The left lower lobe atelectasis obscures a 4 mm indeterminate nodule present in the left lower lobe on the prior exam. I suspect the presence of a 3 mm peribronchiolar density in the left upper lobe (image 43), likely secondary to nonspecific focal small airways inflammation. There is heterogeneous attenuation of the right lung and the aerated left upper lobe likely secondary to hypoinflation and respiratory motion in this patient. Nonspecific airways inflammation is not excluded. There are mild upper lobe predominant centrilobular emphysematous changes, particularly on the right. There is relative elevation or eventration of the right hemidiaphragm with passive atelectasis of the right lung base. No pneumothorax is identified. Thoracic inlet, heart, and mediastinum: The thyroid gland appears unremarkable. No supraclavicular lymphadenopathy is identified. There is a borderline enlarged right lower paratracheal lymph node (image 40) which measures 9-10 mm in short axis diameter, stable since prior exam. No new region of sabine intrathoracic lymphadenopathy has developed. There are additional stable nonspecific mediastinal lymph nodes in the prevascular, left paratracheal and subcarinal regions and the AP window. The thoracic aorta appears normal in course and caliber. The main and central pulmonary arteries appear dilated, a finding which may be associated with pulmonary artery hypertension. The main pulmonary artery measures 34 mm in maximum transverse diameter. There is multichamber cardiomegaly including biatrial enlargement. No pericardial effusion is identified. The esophagus appears non-dilated. Bones and soft tissues: The vertebral body heights appear symmetric and well-maintained. There are changes of DISH involving the thoracic spine. No evidence of a displaced rib fracture is identified. The proximal right clavicle has a somewhat permeative appearance versus the left, likely secondary to degenerative or subchondral cystic changes. This finding appears stable since the prior exam of 02/04/2015. The soft tissues of the chest wall disclose no acute process. Upper abdomen: Visualized portions of the upper abdomen disclose no acute process. QB_N IMPRESSION: Since 02/04/2015, 1. Development of a nonspecific, relatively large low-density left pleural effusion which layers dependently. There has also been development of a small low-density right pleural effusion which also layers dependently. 2. There is associated complete atelectasis of the left lower lobe. There is dependent atelectasis in the lingula. There is relative elevation or eventration of the right hemidiaphragm with passive atelectasis of the right lung base. 3. There is no CT evidence of a traumatic injury to the chest. Acid Mixer: [facility] Transcribe Date/Time: Feb 13 2018 12:52P Dictated by : MAURILIO CHANDLER MD This examination was interpreted and the report reviewed and electronically signed by: MAURILIO CHANDLER MD on Feb 13 2018 1:32PM EST [id number] CBC W/DIFF, AUTOMATED Collected: 02/09/2018 Status: F Source: [place] 6:37 AM [facility] REPOSITORY TYPE CODE TESTS RESULT OUT OF RANGE REFERENCE UNITS LAB L100.1000 4.4-11.0 K/mm3 Normal WBC 6.9 LAB L100.1200 4.2-5.4 M/mm3 Low RBC 4.06 LAB L100.1300 12.0-15.0 g/dl Low HGB 11.7 LAB L100.1400 37-47 % Normal HCT 38.5 LAB L100.1500 81-99 fL Normal MCV 94.8 LAB L100.1600 27.0-32.0 pg Normal MCH 28.8 LAB L100.1700 32-36 g/gl Low MCHC 30.4 LAB L100.1810 11.6-14.6 % Normal RDW CV 13.9 LAB L100.1820 35.1-43.9 fl High RDW SD 46.7 LAB L100.1900 150-450 K/mm3 Normal PLT 169 LAB L100.2000 6.2-12.0 fl Normal MPV 10.2 LAB L100.2100 47-70 % Normal NEUT% 63.7 LAB L100.2200 19-41 % Normal LY% 21.2 LAB L100.2300 0-10 % High MONO% 13.0 LAB L100.2400 0-5 % Normal EO% 1.9 LAB L100.2500 0-1 % Normal BASO% 0.1 LAB L100.2550 0.0-0.9 % Normal IM GRAN % 0.100 Result Comment: IG% - Immature Granulocytes (promyelocytes, myelocytes and metamyelocytes) > 1% indicates that a LEFT SHIFT is Present. LAB L100.2620 2.0-7.7 X10 3/uL Normal Absolute Neut 4.4 LAB L100.2720 0.83-4.51 X10 3/ul Normal Absolute Lymph 1.47 Performed By: #### L100.0100 #### [facility] [address], [address] COMPREHENSIVE METABOLIC Collected: 02/09/2018 Status: F Source: [facility] 6:37 AM [facility] REPOSITORY TYPE CODE TESTS RESULT OUT OF RANGE REFERENCE UNITS LAB L501.0100 74-106 mg/dL Normal GLU 95 Result Comment: Please note revised GLUCOSE reference range effective 2017. LAB L501.1000 7-18 mg/dL High BUN 20 LAB L501.1100 0.55-1.02 mg/dL High CREAT,SERUM 1.07 Result Comment: The validity of the calculated GFR AND GFRAA in patients over 70 years has not been determined. Clinical correlation is essential. LAB L501.1110 >60 mL/min Low EST GFR 54 Result Comment: Non- GFR Calc LAB L501.1115 >60 mL/min Normal EST GFR - AA 65 Result Comment: GFR Calc LAB L501.1255 ml/min Normal Estimated CRCL 41.05 LAB L501.1300 10-20 RATIO Normal BUN/CRE 18.7 LAB L501.1500 6.4-8. g/dL Normal 2 T PROT 6.9 LAB L501.1800 3.2-5. g/dL Normal 0 ALB 3.8 LAB L501.1950 2.2-4. g/dL Normal 2 GLOB 3.1 LAB L501.2000 0.9-2. RATIO Normal 4 A/G 1.2 LAB L501.2200 8.5-10 mg/dL Normal .1 CA 9.7 LAB L501.4100 15-37 U/L Normal AST 16 LAB L501.4305 45-117 U/L Normal ALK P 89 LAB L501.4405 13-56 U/L Normal ALT 26 LAB L501.4600 0.20-1 mg/dL Normal .00 T BILI 0.90 LAB L501.5300 136-14 mmol/L Normal 5 NA 141 LAB L501.5600 3.5-5. mmol/L Normal 1 K 3.7 LAB L501.5900 98-107 mmol/L Low CL 96 LAB L501.6100 21.0-3 mmol/L High 2.0 CO2 39.0 LAB L501.6200 5-15 Normal GAP 6 Performed By: #### L500.4050, L501.2300, L501.5200 #### [facility] [address] [place], [address] PHOSPHORUS Collected: 02/09/2018 Status: F Source: [place] 6:37 AM [facility] REPOSITORY TYPE CODE TESTS RESULT OUT OF RANGE REFERENCE UNITS LAB L501.2300 2.5-4.9 mg/dL Normal PHOS 3.8 Performed By: #### L500.4050, L501.2300, L501.5200 #### [facility] [address] [place], [address] MAGNESIUM Collected: 02/09/2018 Status: F Source: [place] 6:37 AM [facility] REPOSITORY TYPE CODE TESTS RESULT OUT OF RANGE REFERENCE UNITS LAB L501.5200 1.6-2.6 mg/dL Normal MG 2.2 Performed By: #### L500.4050, L501.2300, L501.5200 #### [facility] [address] [place], [address] CHEST 1 VIEW Observed: 02/09/2018 Status: F Source: [place] (PORTABLE) 12:01 AM [facility] REPOSITORY [facility] Imaging Services [address] [place] [address] Chest 1 View (Portable) MR#: [id number] Acct: [id number] Name: ALBA FLORES Rep #: [id number] : 1950 F 67 From: Lewis Aguirre MD PCP: Sanchez Spears MD Status: ADM IN Study: Chest 1 View (Portable) Date of Exam: 02/09/18 Exam# [id number] Ordering Dr: Lee Ramirez MD STUDY: X-RAY CHEST REASON FOR EXAM: Female, 67 years old. Cough. TECHNIQUE: Single AP portable view of the chest. COMPARISON: Comparison is made with prior study done February 07, 2018. FINDINGS: EKG electrodes are seen. Since prior study, there is increasing left pleural effusion with vascular congestion and increased markings in the left upper lobe. There is also evidence of a small right pleural effusion with underlying atelectasis and/or infiltration. There is mild cardiac enlargement. Normal mediastinum and angi. Normal visualized pulmonary arteries. There is atherosclerotic tortuosity of the aortic arch and descending thoracic aorta. Normal visualized thoracic spine. Normal visualized ribs, clavicles, and shoulders. There is no demonstrated abnormality of the visualized soft tissue structures of the upper abdomen. RAD/Chest 1 View (Portable) IMPRESSION: Increasing bilateral pleural effusions with vascular congestion as well as increased markings in the left upper lobe and right lower lobe suggestive of superimposed CHF. Follow-up is recommended. Electronically Signed: Lewis Aguirre MD at 9:16 EDT Tel [phone], Service support , CC: Lee Ramirez MD; Sanchez Spears MD Acid Mixer: Signed FLUID/WASHING Observed: 02/09/2018 Status: F Source: [place] 12:00 AM [facility] REPOSITORY Patient: ALBA FLORES : 1950 (67/F) Acct Num: [id number] Phys: Sanchez Spears MD Unit Num: [id number] Loc: CCN Specimen: [id number] Received: 02/09/18 - 1144 Spec Type: Fluid TISSUES 1 TISSUES: Pleural fluid, NOS COMMENT Clinical correlation and appropriate follow up are necessary. CYTOLOGY GROSS Received is 110 ml of dark red cloudy fluid labeled with the patient's name and and designated per the requisition as thoracentesis. Submitted for cytology preparation including cell block. / 02/09/18 TC:5 CPT: 69014, 32491 CYTOLOGY STUDY Slides are reviewed. The specimen is bloody and consists of macrophages, mesothelial cells and inflammatory cells. DIAGNOSIS CYTOLOGY Thoracentesis fluid for cytology (cytospin and cell block): Negative for malignant cells. See cytology study and comment. SJ:gregg 02/12/18 HEADER OPERATION: Ultrasound-guided thoracentesis PRE-OP DIAGNOSIS: Left chest pleural effusion TISSUE SUBMITTED: Thoracentesis fluid for cytology Signed Felipe Carballo 02/13/18 <signature on file> Performed By: #### PFLU #### [facility] [address] [place], [address] CR-CHEST 1 VIEW Observed: 02/09/2018 Status: F Source: [place] ([facility]) IMPORT 12:[address] [facility] REPOSITORY Images were obtained outside of [facility] [id number] CYTOLOGY, BODY FLUID / Collected: 02/08/2018 Status: F Source: [place] CSF 8:41 AM [facility] REPOSITORY Order Comment: Comments: Pleural Fluid TYPE CODE TESTS RESULT OUT OF RANGE REFERENCE UNITS LAB L350.1000 SEE Normal PATHOLOGY CYTOLOGY,BF REPORT /CSF Result Comment: Specimen submitted to Anatomical Pathology Department for testing. Performed By: #### L350.1000 #### [facility] [address] [place], [address] CBC W/DIFF, AUTOMATED Collected: 02/08/2018 Status: F Source: [place] 5:50 AM [facility] REPOSITORY TYPE CODE TESTS RESULT OUT OF RANGE REFERENCE UNITS LAB L100.1000 4.4-11.0 K/mm3 Normal WBC 6.4 LAB L100.1200 4.2-5.4 M/mm3 Normal RBC 4.20 LAB L100.1300 12.0-15.0 g/dl Low HGB 11.8 LAB L100.1400 37-47 % Normal HCT 39.7 LAB L100.1500 81-99 fL Normal MCV 94.5 LAB L100.1600 27.0-32.0 pg Normal MCH 28.1 LAB L100.1700 32-36 g/gl Low MCHC 29.7 LAB L100.1810 11.6-14.6 % Normal RDW CV 14.3 LAB L100.1820 35.1-43.9 fl High RDW SD 49.3 LAB L100.1900 150-450 K/mm3 Normal PLT 164 LAB L100.2000 6.2-12.0 fl Normal MPV 9.8 LAB L100.2100 47-70 % Normal NEUT% 63.2 LAB L100.2200 19-41 % Normal LY% 19.8 LAB L100.2300 0-10 % High MONO% 14.9 LAB L100.2400 0-5 % Normal EO% 1.9 LAB L100.2500 0-1 % Normal BASO% 0.0 LAB L100.2550 0.0-0.9 % Normal IM GRAN % 0.200 Result Comment: IG% - Immature Granulocytes (promyelocytes, myelocytes and metamyelocytes) > 1% indicates that a LEFT SHIFT is Present. LAB L100.2620 2.0-7.7 X10 3/uL Normal Absolute Neut 4.0 LAB L100.2720 0.83-4.51 X10 3/ul Normal Absolute Lymph 1.26 Performed By: #### L100.0100 #### [facility] [address] [place], [place], [address] COMPREHENSIVE METABOLIC Collected: 02/08/2018 Status: F Source: [facility] 5:50 AM [facility] REPOSITORY TYPE CODE TESTS RESULT OUT OF RANGE REFERENCE UNITS LAB L501.0100 74-106 mg/dL Normal GLU 95 Result Comment: Please note revised GLUCOSE reference range effective 2017. LAB L501.1000 7-18 mg/dL High BUN 25 LAB L501.1100 0.55-1.02 mg/dL Normal CREAT,SERUM 0.96 Result Comment: The validity of the calculated GFR AND GFRAA in patients over 70 years has not been determined. Clinical correlation is essential. LAB L501.1110 >60 mL/min Normal EST GFR 61 Result Comment: Non- GFR Calc LAB L501.1115 >60 mL/min Normal EST GFR - AA 74 Result Comment: GFR Calc LAB L501.1255 ml/min Normal Estimated CRCL 45.75 LAB L501.1300 10-20 RATIO High BUN/CRE 25.9 LAB L501.1500 6.4-8. g/dL Low 2 T PROT 6.0 LAB L501.1800 3.2-5. g/dL Low 0 ALB 2.8 LAB L501.1950 2.2-4. g/dL Normal 2 GLOB 3.2 LAB L501.2000 0.9-2. RATIO Normal 4 A/G 0.9 LAB L501.2200 8.5-10 mg/dL Normal .1 CA 8.6 LAB L501.4100 15-37 U/L Normal AST 21 LAB L501.4305 45-117 U/L Normal ALK P 88 LAB L501.4405 13-56 U/L Normal ALT 26 LAB L501.4600 0.20-1 mg/dL Normal .00 T BILI 0.60 LAB L501.5300 136-14 mmol/L Normal 5 NA 145 LAB L501.5600 3.5-5. mmol/L Low 1 K 3.3 LAB L501.5900 98-107 mmol/L Normal CL 101 LAB L501.6100 21.0-3 mmol/L High 2.0 CO2 36.0 LAB L501.6200 5-15 Normal GAP 8 Performed By: #### L500.4050, L501.5200 #### [facility] [address] [place], [place], [id number] MAGNESIUM Collected: 02/08/2018 Status: F Source: [place] 5:50 AM [facility] REPOSITORY TYPE CODE TESTS RESULT OUT OF RANGE REFERENCE UNITS LAB L501.5200 1.6-2.6 mg/dL Normal MG 2.3 Performed By: #### L500.4050, L501.5200 #### [facility] [address] [place], [address] Observed: 02/07/2018 Status: F Source: [place] CULTURE, BODY FLUID 3:24 PM [facility] REPOSITORY ADD ON CULTURE- Gram Stain Acceptable Specimen? Yes (<25 Epithelial cells per/lpf) Gram Stain 3+ Red Blood Cells Rare Red Blood Cells No organisms seen Body Fluid Cult No growth aerobically. Cult, Anaerobic CULTURE WAS NOT ORDERED UNTIL 02/08/18. SPECIMEN WAS IN SYRINGE CONTAINER. GROWTH OF ANAEROBIC BACTERIA MAY BE AFFECTED. No growth in 5 days. Performed By: #### M100.1300 #### [facility] [address] [place], [address] CHEST INSP/EXP 2 VIEW Observed: 02/07/2018 Status: F Source: [place] 3:12 PM [facility] REPOSITORY [facility] Imaging Services [address] [place] [address] Chest Insp/Exp 2 View MR#: [id number] Acct: [id number] Name: ALBA FLORES Rep #: [id number] : 1950 F 67 From: Lewis Aguirre MD PCP: Sanchez Spears MD Status: ADM IN Study: Chest Insp/Exp 2 View Date of Exam: 02/07/18 Exam# [id number] Ordering Dr: Isabelle Martin MD STUDY: X-RAY CHEST REASON FOR EXAM: Female, 67 years old. The patient is status post left thoracentesis. TECHNIQUE: AP inspiration and expiration views. COMPARISON: Comparison is made with prior study dated February 07, 2018 done earlier today. FINDINGS: The patient is status post left thoracentesis. There is no evidence of pneumothorax. Residual pleural parenchymal changes persist at the left lung base. Blunting of the right costophrenic angle with mild increased markings at the right lung base. RAD/Chest Insp/Exp 2 View IMPRESSION: Status post left thoracentesis. There is no evidence of pneumothorax. Electronically Signed: Lewis Aguirre MD at 15:30 EDT Tel [phone], Service support , CC: Isabelle Martin MD; Sanchez Spears MD Acid Mixer: Signed Observed: 02/07/2018 Status: F Source: [place] CULTURE, SPUTUM 11:58 AM [facility] REPOSITORY Gram Stain Specimen is mostly saliva and as such may not represent an accurate assesment of the patients' pulmonary/respiratory condition. Acceptable Specimen? No (>25 Epithelial cells per/lpf) Gram Stain 3+ Gram positive rods 3+ Gram positive cocci 3+ Epithelial cells Rare White Blood Cells Resp. Culture Mixed normal respiratory lauren. No Streptococcus pneumoniae, beta-hemolytic Streptococcus or Staphylococcus aureus isolated. Performed By: #### M100.0800 #### [facility] [address] [facility] [address] [place], [address] PROTHROMBIN TIME W/INR Collected: 02/07/2018 Status: F Source: [place] 10:45 AM [facility] REPOSITORY TYPE CODE TESTS RESULT OUT OF RANGE REFERENCE UNITS LAB L300.4150 11.7-14.9 SECONDS Normal PROTIME 13.5 LAB L300.4200 Normal INR 1.0 Performed By: #### L300.3900, L300.4310 #### [facility] [address] [place], [address] PARTIAL THROMBOPLAST Collected: 02/07/2018 Status: F Source: [place] TIME 10:45 AM [facility] REPOSITORY TYPE CODE TESTS RESULT OUT OF RANGE REFERENCE UNITS LAB L300.4310 24.1-36.2 Seconds Normal PTT 25.1 Performed By: #### L300.3900, L300.4310 #### [facility] [address] [place], [address] THORACENTESIS W US Observed: 02/07/2018 Status: F Source: [place] 9:26 AM [facility] REPOSITORY [facility] Imaging Services [address] [place] [address] Thoracentesis W US MR#: [id number] Acct: [id number] Name: ALBA FLORES Rep #: [id number] : 1950 F 67 From: Lewis Aguirre MD PCP: Sanchez Spears MD Status: ADM IN Study: Thoracentesis W US Date of Exam: 02/07/18 Exam# [id number] Ordering Dr: Isabelle Martin MD PROCEDURE: ULTRASOUND GUIDED THORACENTESIS. DATE: February 07, 2013.. INDICATION: Female, 67 years old. Left pleural effusion. PHYSICIAN: Lewis Aguirre M.D. PROCEDURE: The risks, benefits, and alternatives to the procedure were explained to the patient. The specific risks of bleeding, infection, and pneumothorax requiring chest tube insertion were discussed and accepted. Written informed consent was obtained. Ultrasonographic evaluation of the left lower pleural space was carried out. An adequate pocket was identified. The patient was placed in the sitting, upright position. The overlying skin was prepped and draped in sterile fashion. 1% lidocaine was administered subcutaneously for local anesthesia. Under ultrasound guidance, a 5 [place] thoracentesis needle/catheter system was advanced into the left posterior lower pleural fluid collection. Approximately 150 mL of bloody fluid was drained. The catheter was removed, and a sterile dressing was applied. A specimen was collected and sent to the laboratory for analysis, as requested by the referring clinician. The patient tolerated the procedure well. A chest x-ray was ordered. US/Thoracentesis W US IMPRESSION: Ultrasound-guided left thoracentesis. Electronically Signed: Lewis Aguirre MD at 15:55 EDT Tel [phone], Service support , CC: Isabelle Martin MD; Sanchez Spears MD Acid Mixer: Signed CONSULTATION Observed: 02/07/2018 Status: F Source: [place] 7:36 AM [facility] REPOSITORY [facility] Medical Records Department [address] [place] [address] Consultation 02/06/18 0721 MR#: [id number] Acct: [id number] Name: ALBA FLORES Rep #: [id number] : 1950 67 From: Charlie King DO PCP: Sanchez Spears MD Status: ADM IN Y Location: [place] [address] Reason for Consult Date of Consultation: 02/06/18 Reason for Consultation: CECILIA History of Present Illness: The patient is a 67-year-old female, with a history as outlined below, who presented to the emergency department on February 04 with complaints of shortness of breath. The patient has chronic hypoxic respiratory failure with a 2 L/min baseline supplemental oxygen requirement. Her last pulmonary function testing completed in December 2017 revealed evidence of an irreversible severe mixed ventilatory defect with a symmetric reduction in diffusing capacity. She follows with Dr. Newman on an outpatient basis in the pulmonary medicine clinic. She was last seen by her nurse practitioner on January 04. The patient also follows with Dr. Hernandez of cardiology due to a history of atrial flutter with rapid ventricular response. She has undergone multiple prior DC cardioversions, which were unsuccessful. She was subsequently referred to EP for potential ablation therapy. The patient also has known obstructive sleep apnea based off of her initial diagnostic polysomnogram completed in December 2017, which revealed evidence of mild CECILIA with an apnea hypopnea index of 5.2 events per hour. A follow-up titration study completed in January revealed the need for bilevel therapy with a pressure support of 26/20 centimeters of water with humidification along with a 6 L/min supplemental oxygen bleed in. On presentation to the emergency department, the patient was noted to be afebrile and hemodynamically stable. She was tachycardic and tachypneic. Laboratory evaluation revealed a mildly elevated white blood cell count to 12,000. Arterial blood gas obtained on BiPAP 30/01 was normal. Chemistry profile revealed evidence of acute kidney injury with creatinine 1.25. Troponin was negative. BNP was elevated to 628. Urinalysis revealed positive nitrites and leukocyte esterase along with 2+ urine bacteria. The patient was placed on antibiotics and IV diuretics. She was admitted to the progressive care unit for ongoing management. The patient is currently overall net -3 L for the admission. Her oxygen requirements have decreased accordingly. Past Medical History Past Medical History (Chronic Problems): Chronic Problems (Last Reviewed 02/04/18 @ 20:20 by Wyatt Lora MD) Chronic obstructive pulmonary disease (Chronic) Morbid obesity (Chronic) HTN (hypertension) (Chronic) GERD (gastroesophageal reflux disease) (Chronic) Medical History: Medical History (Last Reviewed 02/04/18 @ 20:20 by Wyatt Lora MD) Shortness of breath (Acute) R06.02 Atrial flutter with rapid ventricular response (Acute) I48.92 Healthcare associated bacterial pneumonia (Acute) J15.9 Acute kidney injury (Acute) N17.9 Chest pain (Acute) R07.9 Chronic obstructive pulmonary disease (Chronic) J44.9 Acute respiratory failure (Acute) J96.00 Healthcare-associated pneumonia (Acute) J18.9 Atrial flutter (Acute) I48.92 Morbid obesity (Chronic) E66.01 HTN (hypertension) (Chronic) I10 GERD (gastroesophageal reflux disease) (Chronic) K21.9 CECILIA (obstructive sleep apnea) G47.33 Allergies aspirin [ASA] Adverse Reaction (Verified 02/04/18 20:59) stomach burning and sick to stomach propoxyphene HCl [From Darvon] Adverse Reaction (Verified 02/04/18 20:59) i get dizzy and pass out Home Medications: Ambulatory Orders Medication Instructions Recorded Calcium Carbonate/Vitamin D3 1 ea PO DAILY 11/14/17 [Calcium 500+D Tablet Chew] acetaminophen 500 mg tablet 1,000 mg PO Q6H PRN tab 12/01/17 Surgical History: Surgical History (Last Reviewed 02/04/18 @ 20:20 by Wyatt Lora MD) History of total hysterectomy Z90.710 Surgical History: hysterectomy - total Psychiatric History: No pertinent psych hx 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 Lives: Spouse/ Significant Other Smoking Status: Former smoker Alcohol: None - *Family History Maternal Family History: Family History (Last Reviewed 02/04/18 @ 20:20 by Wyatt Lora MD) Mother Heart disease Father Heart disease History Items: Heart Disease Paternal Family History: Family History (Last Reviewed 02/04/18 @ 20:20 by Wyatt Lora MD) Mother Heart disease Father Heart disease History Items: Heart Disease Review of Systems Constitutional: Denies: Chills, Fever, Night Sweats Eyes: Denies: Blurred vision, Double vision HEENT: Denies: Head Aches, Sinus Congestion, Sinus Drainage Cardiovascular: Reports: Edema. Denies: Chest Pain, Palpitations Respiratory: Reports: Shortness of Breath Gastrointestinal: Denies: Abdominal Pain, Nausea, Vomiting Genitourinary: Denies: Dysuria Musculoskeletal: Denies: Joint Pain, Joint Tenderness Skin: Denies: Rash, Wounds Neurological: Denies: Numbness, Tingling, Focal weakness Psychiatric: Denies: Anxiety, Depression, Homicidal Ideations, Suicidal Ideations Hematologic/ Lymphatic: Denies: Easy Bruising, Easy Bleeding Patient Problems: Active and Suspected Problems (Last Reviewed 02/04/18 @ 20:20 by Wyatt Lora MD) Heart failure (Acute) Objective: The patient's most recent lab work, culture data and imaging studies have all been personally reviewed. Surface echocardiogram from November 2017 revealed a mildly dilated LV with mild concentric LVH and ejection fraction of 55%. Patient's right ventricular systolic pressure was noted to be 35 mmHg. The patient's RV was moderately dilated with mild to moderate global RV systolic dysfunction. - Physical Exam General: Alert, Oriented x3, Cooperative, - - Morbidly obese. Sitting in bedside recliner. HEENT: Atraumatic, PERRLA, Normocephalic Oral: No Gingival or Mucosal Lesions/ Ulcerations Neck: Supple, No Nodes, Trachea Midline, - - Large neck circumference with redundant soft tissue. Lungs: No rhonchi, No wheeze, No rales, Diminished Cardiovascular: Normal S1, Normal S2, No murmurs, Irregular Rate Abdomen: Bowel Sounds Present, Soft, Non Tender, Obese Extremities: No clubbing, No cyanosis, Edema Skin: No breakdown Musculoskeletal: No Muscle Wasting Lymphatic: No Cervical, Supraclavicular, or Inguinal Adenopathy Neurological: Cranial nerves II-XII grossly intact, Neuro grossly intact Psych/Mental Status: Alert and oriented to time, place, person, mood and affect Vital Signs Temp Pulse Resp BP Pulse Ox 97.4 F L 83 17 128/69 H 96 02/06/18 03:33 02/06/18 06:05 02/06/18 03:33 02/06/18 06:05 02/06/18 03:33 Oxygen Flow Rate (L/min) 3.5 Oxygen Delivery Method Bi-pap Weight: 357 lb 5.909 oz Body Mass Index (BMI) 64.3 Intake and Output for Last 24 Hours Intake Total 240 / 240 980 / 980 240 / 240 Output Total 1025 / 1025 3050 / 3050 400 / 400 Balance -785 / -785 -2070 / -2070 -160 / -160 Laboratory Tests Past 24 Hrs Sodium 145 Potassium 3.4 L Chloride 104 Carbon Dioxide 33.0 H Labs (Last 48 Hours) WBC 11.8 H RBC 5.04 WBC 6.9 RBC 4.74 Hgb 13.7 Hct 45.1 MCV 95.1 MCH 28.9 WBC RBC Hgb Hct MCV MCH MCHC RDW RDW Differential Clinical Impression(s) from Imaging Studies Chest X-Ray 02/04/18 18:40 IMPRESSION: Findings compatible with worsening interstitial edema/congestive failure with effusions. Electronically Signed: Edwin Duarte MD at 19:11 EDT , Service support , Chest X-Ray 02/06/18 05:55 IMPRESSION: 1. Large pleural effusions are similar in appearance to the previous study with decreased pulmonary congestion. 2. New left upper lobe airspace disease. Electronically Signed: Deb Huitron MD at 5:27 EDT , Service support , Assessment/Plan All Active Problems (Last Reviewed 02/04/18 @ 20:20 by Wyatt Lora MD) Heart failure (Acute) CECILIA (obstructive sleep apnea) (Acute) Shortness of breath (Acute) Atrial flutter with rapid ventricular response (Acute) Healthcare associated bacterial pneumonia (Acute) Acute kidney injury (Acute) Chest pain (Acute) Acute respiratory failure (Acute) Healthcare-associated pneumonia (Acute) Atrial flutter (Acute) RECOMMENDATIONS: 1. Continue diuretics as ordered. 2. Wean supplemental oxygen and encourage incentive spirometer use. 3. Mobilize patient as tolerated. 4. Place patient on BiPAP 26/20 centimeters of water +6L with naps and nightly. 5. The patient should follow-up as scheduled with Dr. Newman in the pulmonary medicine clinic within 3 months of initiating BIPAP in her home environment. IMPRESSIONS: 1. Chronic hypoxemic respiratory failure/baseline severe mixed ventilatory defect The patient appears to have responded to volume optimization with IV diuretics. She does have evidence of bilateral pleural effusions on chest imaging. The etiology for her dyspnea on presentation is likely the consequence of decompensated heart failure. She is currently maintaining appropriate oxygen saturations on her baseline outpatient requirement. Recommend continued volume optimization along with mobilization. Encourage incentive spirometer use. 2. Obstructive sleep apnea The exact reason for the patient's consultation to me is a bit unclear, as I was consulted for CCEILIA. She does already have known CECILIA and is already prescribed BiPAP. 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 She would need to follow-up with Dr. Newman as scheduled within 3 months of initiating nocturnal Pap therapy. In the interim, recommend that the patient be placed on bilevel with a pressure support of 26/20 centimeters of water with a 6 L supplemental oxygen bleed in, per the recommendations of her titration polysomnogram. 3. History of atrial flutter with rapid ventricular response/history of failed cardioversions Continue current cardiac medical management and diuretics. May wish to have cardiology evaluate patient, given that her symptoms are the consequence of decompensated heart failure. 4. Super morbid obesity/GERD/anxiety Complicates care, management, recovery and prognosis. This note was generated with [employer] dictation software. It may contain incorrect words, spelling, and punctuation that were not noted in checking the note before signing. Code Visit Inpatient E AND M: 15366 Init Hosp L3 02/07/18 0736 <Electronically signed by Charlie King DO> Date Charlie King DO Cosigner Signature (if applicable): Date CC: Charlie King D.O.; Sanchez Spears MD Signed BASIC METABOLIC Collected: 02/07/2018 Status: F Source: [place] PROFILE (BMP) 5:55 AM [facility] REPOSITORY TYPE CODE TESTS RESULT OUT OF RANGE REFERENCE UNITS LAB L501.0100 74-106 mg/dL Normal GLU 79 Result Comment: Please note revised GLUCOSE reference range effective 2017. LAB L501.1000 7-18 mg/dL High BUN 25 LAB L501.1100 0.55-1.02 mg/dL High CREAT,SERUM 1.11 Result Comment: The validity of the calculated GFR AND GFRAA in patients over 70 years has not been determined. Clinical correlation is essential. LAB L501.1110 >60 mL/min Low EST GFR 52 Result Comment: Non- GFR Calc LAB L501.1115 >60 mL/min Normal EST GFR - AA 63 Result Comment: GFR Calc LAB L501.1255 ml/min Normal Estimated CRCL 39.57 LAB L501.1300 10-20 RATIO High BUN/CRE 22.5 LAB L501.2200 8.5-10 mg/dL Low .1 CA 8.3 LAB L501.5300 136-14 mmol/L Normal 5 NA 143 LAB L501.5600 3.5-5. mmol/L Low 1 K 3.2 LAB L501.5900 98-107 mmol/L Normal CL 100 LAB L501.6100 21.0-3 mmol/L High 2.0 CO2 37.0 LAB L501.6200 5-15 Normal GAP 6 Performed By: #### L500.2500 #### [facility] [address] [place], [place] [address]all [facility]. [place], [place], [address] CBC W/DIFF, AUTOMATED Collected: 02/07/2018 Status: F Source: [place] 5:55 AM [facility] REPOSITORY TYPE CODE TESTS RESULT OUT OF RANGE REFERENCE UNITS LAB L100.1000 4.4-11.0 K/mm3 Normal WBC 9.3 LAB L100.1200 4.2-5.4 M/mm3 Normal RBC 4.42 LAB L100.1300 12.0-15.0 g/dl Normal HGB 12.6 LAB L100.1400 37-47 % Normal HCT 41.4 LAB L100.1500 81-99 fL Normal MCV 93.7 LAB L100.1600 27.0-32.0 pg Normal MCH 28.5 LAB L100.1700 32-36 g/gl Low MCHC 30.4 LAB L100.1810 11.6-14.6 % Normal RDW CV 14.2 LAB L100.1820 35.1-43.9 fl High RDW SD 46.8 LAB L100.1900 150-450 K/mm3 Normal PLT 193 LAB L100.2000 6.2-12.0 fl Normal MPV 9.9 LAB L100.2100 47-70 % Normal NEUT% 65.9 LAB L100.2200 19-41 % Normal LY% 20.9 LAB L100.2300 0-10 % High MONO% 12.1 LAB L100.2400 0-5 % Normal EO% 0.9 LAB L100.2500 0-1 % Normal BASO% 0.0 LAB L100.2550 0.0-0.9 % Normal IM GRAN % 0.200 Result Comment: IG% - Immature Granulocytes (promyelocytes, myelocytes and metamyelocytes) > 1% indicates that a LEFT SHIFT is Present. LAB L100.2620 2.0-7.7 X10 3/uL Normal Absolute Neut 6.2 LAB L100.2720 0.83-4.51 X10 3/ul Normal Absolute Lymph 1.95 Performed By: #### L100.0100 #### [facility] [address] [place], [address] LDH Collected: 02/07/2018 Status: F Source: [place] 5:55 AM [facility] REPOSITORY TYPE CODE TESTS RESULT OUT OF RANGE REFERENCE UNITS LAB L504.2610 84-246 U/L Normal LDH 204 Performed By: #### L504.2610 #### [facility] [address] [place], [address] PROTEIN, TOTAL Collected: 02/07/2018 Status: F Source: [place] 5:55 AM [facility] REPOSITORY TYPE CODE TESTS RESULT OUT OF RANGE REFERENCE UNITS LAB L501.1500 6.4-8.2 g/dL Low T PROT 6.3 LAB L501.1950 2.2-4.2 g/dL Normal GLOB 3.3 LAB L501.2000 0.9-2.4 RATIO Normal A/G 0.9 Performed By: #### L001.0705 #### [facility] [address] [place], [address] GLUCOSE, BODY FLUID Collected: 02/07/2018 Status: F Source: [place] 12:00 AM [facility] REPOSITORY TYPE CODE TESTS RESULT OUT OF RANGE REFERENCE UNITS LAB L503.0100 40-70 mg/dL High GLU,BF 77 Performed By: #### L503.0100, L503.0300, L504.0250 #### [facility] [address] [place], [address] PROTEIN, BODY FLUID Collected: 02/07/2018 Status: F Source: [place] 12:00 AM [facility] REPOSITORY TYPE CODE TESTS RESULT OUT OF RANGE REFERENCE UNITS LAB L503.0300 Not Establ. g/dL Normal 3.3 PROTEIN,BF Performed By: #### L503.0100, L503.0300, L504.0250 #### [facility] [address] [place], [address] LDH,BODY FLUID Collected: 02/07/2018 Status: F Source: [place] 12:00 AM [facility] REPOSITORY TYPE CODE TESTS RESULT OUT OF RANGE REFERENCE UNITS LAB L504.0250 Not Establ. Units/l Normal LDH,BF 213 Performed By: #### L503.0100, L503.0300, L504.0250 #### [facility] [address] [place], [address] BODY FLUID CELL Collected: 02/07/2018 Status: C Source: [place] COUNT+DIFF 12:00 AM [facility] REPOSITORY Order Comment: The reference range and other method performance specifications have not been established for this body fluid. The test must be integrated into the clinical context for interpretation. TYPE CODE TESTS RESULT OUT OF RANGE REFERENCE UNITS LAB L200.3380 0.000-0.000 10 3/ul High BFTC# 1.847 Result Comment: This is the Total Number of Nucleated Cell Types in the Body Fluid. LAB L200.3400 10 6/ul Normal RBC/BF 2.50344 LAB L200.3500 10 3/uL Normal 1.721 WBC/BF LAB L200.3510 % Normal 53.0 BF PMN WBC% LAB L200.3515 % Normal 47.0 BF MN WBC% LAB L200.3520 10 3/uL Normal 0.809 BF MN WBC# LAB L200.3525 10 3/uL Normal 0.912 BF PMN WBC# LAB L200.4400 Normal PATH COMM/BF Reviewed Result Comment: Negative for malignant cells. Bloody specimen. Felipe Carballo M.D. 02/08/18 AMENDED REPORT 02/08/18 1324 PATH COMM/BF previously reported as: May follow LAB L200.3100 THORACENTESIS Normal SOURCE/BF LAB L200.3200 COLOR/BF RED Normal Result Comment: BLOODY LAB L200.3300 Normal APPEAR/BF TURBID LAB L200.3600 % Normal PMN 31 LAB L200.3700 % Normal LYMPH 27 LAB L200.3800 % Normal MONO/BF 3 LAB L200.3900 % Normal MESOTHELIAL 23 LAB L200.3950 % Normal MACROPHAGES 16 LAB L200.4420 Normal BFM 2ND SPEC SEE COMMENT Performed By: #### L200.0200 #### [facility] [address] [facility] [place], [address] CHEST PA AND LATERAL Observed: 02/07/2018 Status: F Source: [place] 12:00 AM [facility] REPOSITORY [facility] Imaging Services [address] [place] [address] Chest PA and Lateral MR#: [id number] Acct: [id number] Name: ALBA FLORES Rep #: [id number] : 1950 F 67 From: Temo Yarbrough MD PCP: Sanchez Spears MD Status: ADM IN Study: Chest PA and Lateral Date of Exam: 02/07/18 Exam# [id number] Ordering Dr: Isabelle Martin MD STUDY: X-RAY CHEST REASON FOR EXAM: Female, 67 years old. COPD. Short of breath and dyspnea. Status post left thoracentesis. TECHNIQUE: Frontal and lateral views of the chest. COMPARISON: 02/06/2018. FINDINGS: No pneumothorax. Persistent large left pleural effusion and underlying atelectasis or infiltrate. Small right pleural effusion with probable atelectasis in the right lung base. Cannot adequately assess heart size because of overlying density. Normal visualized aortic arch and descending thoracic aorta. There are diffuse degenerative changes of the visualized thoracic spine. Normal visualized ribs, clavicles, and shoulders. There is no demonstrated abnormality of the visualized soft tissue structures of the upper abdomen. RAD/Chest PA and Lateral IMPRESSION: Bilateral pleural effusions, large on the left and small on the right. Atelectasis or infiltrate probably in the lower left lung. Electronically Signed: Temo Yarbrough MD at 19:10 EDT , Service support , CC: Isabelle Martin MD; Sanchez Spears MD Acid Mixer: Signed US-THORACENTESIS W US Observed: 02/07/2018 Status: F Source: [place]ORT 12:00 AM [facility] REPOSITORY Images were obtained outside of [facility] [id number] CR-CHEST INSP/EXP 2 Observed: 02/07/2018 Status: F Source: [place] IMPORT 12:00 AM [facility] REPOSITORY Images were obtained outside of [facility] [id number] CR-CHEST PA AND Observed: 02/07/2018 Status: F Source: [place] LATERAL IMPORT 12:00 AM [facility] REPOSITORY Images were obtained outside of [facility] [id number] Observed: 02/06/2018 Status: F Source: [place] CULTURE, BLOOD (WB) 6:10 PM [facility] REPOSITORY BC No growth in 5 days. Performed By: #### M200.1000 #### [facility] [place], [address] 12 LEAD ELECTROCARDIOGRAM Observed: 02/06/2018 Status: F Source: [place] 11:25 AM [facility] REPOSITORY [facility] Cardiovascular Services [address] [place] [address] 12 Lead EKG 02/04/18 1825 MR#: [id number] Acct: [id number] Name: ALBA FLORES Rep #: [id number] : 1950 67 From: Lee Hernandez MD Attending Dr: Isabelle Martin MD Status: ADM IN Ordering Dr: Dennis Small MD Date: 02/04/18 Location: [facility] Sex: F C Admitted: 02/04/18 Test Reason : SOB Blood Pressure : / mmHG Vent. Rate : 125 BPM Atrial Rate : 250 BPM P-R Int : 000 ms QRS Dur : 144 ms QT Int : 472 ms P-R-T Axes : 257 270 -71 degrees QTc Int : 681 ms Atrial flutter with 2:1 A-V conduction Left axis deviation Right bundle branch block Anterolateral infarct , age undetermined , cannot be excluded Abnormal ECG Confirmed by MARY WALKER, LEE ([id number]), social media editor REENA NIELSON ([id number]) on 02/06/2018 11:25:12 AM Referred By: CESILIA/DAMIÁN Confirmed By:LEE HERNANDEZ MD 02/06/18 1125 Date Lee Hernandez MD CC: Isabelle Martin MD; Dennis Small MD; Sanchez Spears MD Signed BASIC METABOLIC Collected: 02/06/2018 Status: F Source: [place] PROFILE (BMP) 6:10 AM [facility] REPOSITORY TYPE CODE TESTS RESULT OUT OF RANGE REFERENCE UNITS LAB L501.0100 74-106 mg/dL High GLU 129 Result Comment: Fasting Glucose result greater than or equal to 126 mg/dL suggests DIABETES MELLITUS per A.D.A. criteria. Please note revised GLUCOSE reference range effective 2017. LAB L501.1000 7-18 mg/dL High BUN 20 LAB L501.1100 0.55-1.02 mg/dL Normal CREAT,SERUM 0.97 Result Comment: The validity of the calculated GFR AND GFRAA in patients over 70 years has not been determined. Clinical correlation is essential. LAB L501.1110 >60 mL/min Normal EST GFR 60 Result Comment: Non- GFR Calc LAB L501.1115 >60 mL/min Normal EST GFR - AA 73 Result Comment: GFR Calc LAB L501.1255 ml/min Normal Estimated CRCL 45.28 LAB L501.1300 10-20 RATIO High BUN/CRE 20.6 LAB L501.2200 8.5-10 mg/dL Normal .1 CA 8.6 LAB L501.5300 136-14 mmol/L Normal 5 NA 145 LAB L501.5600 3.5-5. mmol/L Low 1 K 3.4 LAB L501.5900 98-107 mmol/L Normal CL 104 LAB L501.6100 21.0-3 mmol/L High 2.0 CO2 33.0 LAB L501.6200 5-15 Normal GAP 8 Performed By: #### L500.2500 #### [facility] [address] [facility] [place], [address] CHEST 1 VIEW Observed: 02/06/2018 Status: F Source: [place] (PORTABLE) 12:01 AM [facility] REPOSITORY [facility] Imaging Services [address] [place] [address] Chest 1 View (Portable) MR#: [id number] Acct: [id number] Name: ALBA FLORES Rep #: [id number] : 1950 F 67 From: Deb Huitron MD PCP: Sanchez Spears MD Status: ADM IN Study: Chest 1 View (Portable) Date of Exam: 02/06/18 Exam# [id number] Ordering Dr: Kike Nevarez DO STUDY: X-RAY CHEST REASON FOR EXAM: Female, 67 years old. Congestive heart failure. TECHNIQUE: Single AP portable view of the chest. COMPARISON: February 04, 2018. FINDINGS: Cardiac monitoring leads are present. The lungs are expanded. There is obscuration of the lung bases secondary to large pleural effusions. There may be associated airspace disease and/or atelectasis. There is groundglass attenuation in the left upper lobe. There is mild cardiac enlargement. Normal mediastinum and angi. There is prominence of the pulmonary hilar arteries with peripheral pulmonary vascular congestion. There is atherosclerotic calcification of the aortic arch with tortuosity. There is demineralization of the osseous structures. Normal visualized ribs, clavicles, and shoulders. There is no demonstrated abnormality of the visualized soft tissue structures of the upper abdomen. RAD/Chest 1 View (Portable) IMPRESSION: 1. Large pleural effusions are similar in appearance to the previous study with decreased pulmonary congestion. 2. New left upper lobe airspace disease. Electronically Signed: Deb Huitron MD at 5:27 EDT , Service support , CC: Kike Nevarez DO; Sanchez Spears MD Acid Mixer: Signed CR-CHEST 1 VIEW Observed: 02/06/2018 Status: F Source: [place] (PORTABLE) IMPORT 12:[address] [facility] REPOSITORY Images were obtained outside of [facility] [id number] HISTORY AND PHYSICAL Observed: 02/05/2018 Status: F Source: [place] EXAM 10:15 AM [facility] REPOSITORY [facility] Medical Records Department [address] [place] [address] History and Physical 02/04/182012 MR#: [id number] Acct: [id number] Name: ALBA FLORES Rep #: [id number] : 1950 67 From: Wyatt Lora MD PCP: Sanchez Spears MD Status: ADM IN Location: [address] Problem List (1) Heart failure Status: Acute (2) Atrial flutter with rapid ventricular response Status: Acute (3) Chronic obstructive pulmonary disease Status: Chronic Qualifiers: (4) HTN (hypertension) Status: Chronic Qualifiers: History of Present Illness Date of Admission: 02/04/18 Chief Complaint: Dyspnea The patient is a 67 year old F with a significant history of heart failure, COPD, and hypertension who presents with worsening shortness of breath for the last 3 days. Has shortness of breath occurs at rest and it is exacerbated with mild exertion. She reports a productive cough with green sputum and with some blood tinge. Associated with her symptoms is orthopnea requiring her to sleep in a recliner; and paroxysmal nocturnal dyspnea. Patient is on home oxygen 1 L but recently has increased her home oxygen to 3 L. Patient was scheduled to begin BiPAP at a day before her admission. Recently patient has been using the CPAP of her family. While at the emergency department nurse reported gross hematuria. Past Medical History Past Medical History (Chronic Problems): Chronic Problems (Last Reviewed 02/04/18 @ 20:20 by Wyatt Lora MD) Chronic obstructive pulmonary disease (Chronic) Morbid obesity (Chronic) HTN (hypertension) (Chronic) GERD (gastroesophageal reflux disease) (Chronic) Medical History: Medical History (Last Reviewed 02/04/18 @ 20:20 by Wyatt Lora MD) Shortness of breath (Acute) R06.02 Atrial flutter with rapid ventricular response (Acute) I48.92 Healthcare associated bacterial pneumonia (Acute) J15.9 Acute kidney injury (Acute) N17.9 Chest pain (Acute) R07.9 Chronic obstructive pulmonary disease (Chronic) J44.9 Acute respiratory failure (Acute) J96.00 Healthcare-associated pneumonia (Acute) J18.9 Atrial flutter (Acute) I48.92 Morbid obesity (Chronic) E66.01 HTN (hypertension) (Chronic) I10 GERD (gastroesophageal reflux disease) (Chronic) K21.9 CECILIA (obstructive sleep apnea) G47.33 Allergies aspirin [ASA] Adverse Reaction (Verified 02/04/18 18:19) stomach burning and sick to stomach propoxyphene HCl [From Darvon] Adverse Reaction (Verified 02/04/18 18:19) i get dizzy and pass out Home Medications: Ambulatory Orders Medication Instructions Recorded Calcium Carbonate/Vitamin D3 1 ea PO DAILY 11/14/17 [Calcium 500+D Tablet Chew] acetaminophen 500 mg tablet 1,000 mg PO Q6H PRN tab 12/01/17 Surgical History: Surgical History (Last Reviewed 02/04/18 @ 20:20 by Wyatt Lora MD) History of total hysterectomy Z90.710 Surgical History: hysterectomy - total Psychiatric History: No pertinent psych hx 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 Denies: Chest Pain, Palpitations Respiratory: Reports: Cough, Shortness of Breath, Shortness of breath at rest, Shortness of breath upon exertion, Sputum production, Wheezing Gastrointestinal: Denies: Abdominal Pain, Nausea, Vomiting Genitourinary: Denies: Dysuria Musculoskeletal: Denies: Joint Pain, Joint Tenderness Skin: Denies: Rash, Wounds Neurological: Denies: Numbness, Tingling, Focal weakness Psychiatric: Denies: Anxiety, Depression, Homicidal Ideations, Suicidal Ideations Hematologic/ Lymphatic: Denies: Easy Bruising, Easy Bleeding VTE Information - Inpt Only VTE Present on Admission: No VTE Mechan Device Prophylaxis: SCD's VTE Pharm Prophylaxis ordered?: No Reason prophylaxis not ordered:: Treatment Not Indicated - Patient with hematuria. Patient Problems: Active and Suspected Problems (Last Reviewed 02/04/18 @ 20:20 by Wyatt Lora MD) Heart failure (Acute) - Physical Exam General: Alert, Oriented x3, Cooperative HEENT: Atraumatic, PERRLA, EOMI, Normocephalic Neck: Supple, No JVD, Negative Carotid Bruits Lungs: Diminished, Tachypneic, Using Accessory Muscles Cardiovascular: Regular rate, No murmurs, Tachycardic Abdomen: Bowel Sounds Present, Soft, Non Tender Extremities: Capillary Refill Less than 3 Seconds, Edema - Bilateral legs 3+ Skin: No rashes, No breakdown Musculoskeletal: No Tenderness to Palpation of Joints or Extremities Neurological: Cranial nerves II-XII grossly intact Psych/Mental Status: Normal Affect, Appropriate Vital Signs Temp Pulse Resp BP Pulse Ox 98.4 F 125 H 31 H 109/78 94 02/04/18 19:19 02/04/18 19:19 02/04/18 19:19 02/04/18 19:19 02/04/18 19:19 Oxygen Delivery Method Bi-pap Weight: 173.5 kg Body Mass Index (BMI) 67.7 Laboratory Tests Past 24 Hrs WBC 11.8 H RBC 5.04 Hgb 14.4 Hct 48.5 H MCV 96.2 MCH 28.6 MCHC 29.7 L RDW 14.1 RDW Differential 49.5 H WBC RBC Hgb Hct MCV MCH MCHC RDW RDW Differential Plt Count MPV Immature Gran % (Auto) Neut % (Auto) Lymph % (Auto) Pendleton % (Auto) Assessment/Plan All Active Problems (Last Reviewed 02/04/18 @ 20:20 by Wyatt Lora MD) Heart failure (Acute) CECILIA (obstructive sleep apnea) (Acute) Shortness of breath (Acute) Atrial flutter with rapid ventricular response (Acute) Healthcare associated bacterial pneumonia (Acute) Acute kidney injury (Acute) Chest pain (Acute) Acute respiratory failure (Acute) Healthcare-associated pneumonia (Acute) Atrial flutter (Acute) The patient is a 67 year old F with a significant history of heart failure, COPD, and hypertension who presents with worsening shortness of breath elevated BNP and radiographic finding of pulmonary infiltrate; and patient requiring BiPAP to maintain oxygenation. Acute hypoxemic respiratory failure Chest x-ray showed increased cardiac silhouette with bilateral pulmonary infiltrates suggestive of likely heart failure BNP is consistent with heart failure See list at emergency department. Lasix 40 mg IV twice daily. Was given Solu-Medrol at emergency department likely for COPD exacerbation. Solu-Medrol 40 mg x1 in a.m. Please assess for further need of steroids. DuoNeb scheduled Albuterol as needed Scheduled guaifenesin. BiPAP was started at emergency department; continue BiPAP. Daily weights Elevate bilateral lower ext. Fluid restriction Toña wrap to bilateral lower extremity with elevation. Trend CBC and BMP. A flutter Noted to have a flutter with rapid ventricular response with a rate of about 126. Cardizem 5 mg IV bolus x1. Continue home Cardizem p.o. Because of hematuria Xarelto is on hold. Please consider allergy consult to optimize management. Hypertension Blood pressure within goal on admission Cardizem continued. Hematuria Urinalysis ordered. Xarelto on hold. DVT Prophylaxis Xarelto for A. fib with a Holter this time. SCD ordered. Code Visit Inpatient E AND M: [id number] Init Hosp L3 02/05/18 1015 <Electronically signed by Wyatt Lora MD> Date Wyatt Lora MD Cosigner Signature: Date (if applicable) CC: Wyatt Lora MD; Sanchez Spears MD Signed BASIC METABOLIC Collected: 02/05/2018 Status: F Source: [place] PROFILE (BMP) 5:22 AM [facility] REPOSITORY TYPE CODE TESTS RESULT OUT OF RANGE REFERENCE UNITS LAB L501.0100 74-106 mg/dL High GLU 139 Result Comment: Fasting Glucose result greater than or equal to 126 mg/dL suggests DIABETES MELLITUS per A.D.A. criteria. Please note revised GLUCOSE reference range effective 2017. LAB L501.1000 7-18 mg/dL High BUN 19 LAB L501.1100 0.55-1.02 mg/dL High CREAT,SERUM 1.05 Result Comment: The validity of the calculated GFR AND GFRAA in patients over 70 years has not been determined. Clinical correlation is essential. LAB L501.1110 >60 mL/min Low EST GFR 55 Result Comment: Non- GFR Calc LAB L501.1115 >60 mL/min Normal EST GFR - AA 67 Result Comment: GFR Calc LAB L501.1255 ml/min Normal Estimated CRCL 41.83 LAB L501.1300 10-20 RATIO Normal BUN/CRE 18.1 LAB L501.2200 8.5-10 mg/dL Normal .1 CA 8.6 LAB L501.5300 136-14 mmol/L High 5 NA 146 LAB L501.5600 3.5-5. mmol/L Normal 1 K 4.2 LAB L501.5900 98-107 mmol/L High CL 109 LAB L501.6100 21.0-3 mmol/L Normal 2.0 CO2 27.0 LAB L501.6200 5-15 Normal GAP 10 Performed By: #### L500.2500 #### [facility] [address] [place], [address] CBC-COMPLETE BLOOD CNT Collected: 02/05/2018 Status: F Source: V[place] NO DIFF 5:22 AM [facility] REPOSITORY TYPE CODE TESTS RESULT OUT OF RANGE REFERENCE UNITS LAB L100.1000 4.4-11.0 K/mm3 Normal WBC 6.9 LAB L100.1200 4.2-5.4 M/mm3 Normal RBC 4.74 LAB L100.1300 12.0-15.0 g/dl Normal HGB 13.7 LAB L100.1400 37-47 % Normal HCT 45.1 LAB L100.1500 81-99 fL Normal MCV 95.1 LAB L100.1600 27.0-32.0 pg Normal MCH 28.9 LAB L100.1700 32-36 g/gl Low MCHC 30.4 LAB L100.1810 11.6-14.6 % Normal RDW CV 14.0 LAB L100.1820 35.1-43.9 fl High RDW SD 47.2 LAB L100.1900 150-450 K/mm3 Normal PLT 174 LAB L100.2000 6.2-12.0 fl Normal MPV 10.1 Performed By: #### L100.0500 #### [facility] [address] [place], [address] EMERGENCY DEPARTMENT Observed: 02/05/2018 Status: F Source: VANE SUMMARY 12:20 AM [facility] REPOSITORY [facility] Medical Records Department [address] [place] [address] Emergency Department Summary 02/04/18 1836 MR#: [id number] Acct: [id number] Name: ALBA FLORES Rep #: [id number] : 1950 67 From: Dennis Small MD PCP: Sanchez Spears MD Status: ADM IN - ER Visit Summary Date of Service: 02/04/18 Chief Complaint: shortness of breath History of Present Illness: The patient is a 67 F history of COPD, atrial flutter and sleep apnea. She is chronically on 2 L of oxygen at home. She has had multiple episodes similar to this. She states she is become increasingly short of breath of the last 2 days. They increased her home oxygen from 2-3 L over the last several days. She denies any chest pain. She denies any fever. She is never had a DVT or PE. Due to her atrial flutter she is on chronic Xarelto. Physical Examination: Older female. Currently on BiPAP. Vital signs are stable. Her pulse ox is 93% on BiPAP. She is hypoxic without it. H EENT exam unremarkable. Neck nontender. Lungs diminished breath sounds throughout. Coarse. Few scattered wheezes. No rhonchi is appreciated. Heart tachycardic rate about 115. No murmur appreciated. Chest wall nontender. No crepitance. No subcu air. Abdomen soft. Nondistended. Normal bowel sounds. No peritoneal signs. She is moving all 4 extremities. They are neurovascularly intact. She does have trace pitting edema both lower extremities. Calves are nontender. Normal wire straightener strength bilaterally. Neurologically she is awake and alert with no focal motor deficits. Test Results: EKG is 2-1 atrial flutter with a right bundle branch block. Chronic history of the same. Portable one view chest x-ray shows bilateral pleural effusions. Also interstitial edema consistent with congestive heart failure. CBC shows a white count 11.8. Hemoglobin of 14. Electrolytes unremarkable CO2 of 33. Creatinine 1.2. Gap of 4. Troponin is normal. BNP is elevated 628. Emergency Department Course and Treatment: Patient should not currently being treated with BiPAP. Both DuoNeb and albuterol aerosols. IV Solu-Medrol. History and exam are consistent with exacerbation of COPD and also congestive heart failure with the edema in the lower extremities, BNP and a chest x-ray. Treatment Plan: Hospitalist on page for admission Disposition: Admission Impression: Acute exacerbation of COPD Acute congestive heart failure and pleural effusions Acute respiratory failure with hypoxia Acute BiPAP Acute on chronic atrial flutter Anticoagulated on Xarelto This note was generated with [employer] Route[employer] software. It may contain incorrect words, spelling, and punctuation that were not noted in review of the chart prior to signing ED Disposition - Plan for ED Patient: Chief Complaint: Shortness of Breath Referrals: Sanchez Spears MD [Primary Care Provider] - What to do if you have Problems For any increased pain, shortness of breath, bleeding, nausea or vomiting, chest pain, or any unexpected problems, contact your Primary Care Provider. Call [facility] ([phone]) or report to the closest Emergency Room. Call 911 if necessary. 02/05/18 0020 <Electronically signed by Dennis Small MD> Date Dennis Small MD Cosigner Signature (If Indicated): Date CC: Sanchez Spears MD CNPN Observed: 02/05/2018 Status: COMPLETED Source: [place] 12:00 AM [facility] REPOSITORY Telephone (AGCARDPOB) ALBA FLORES ([id number]) 1950 F Date Time Provider Department 02/05/18 OCHOA THORNTON AGCARDPOB During your visit today, we recorded the following information about you: Jena Roca 02/05/2018 11:22 AM Signed Patients called in stating she is in hospital therefore they are cancelling new patient appt with Dr. Thornton. Just an FYI as he will be calling back to [facility]. Jena Roca, Resource Management Planner Allergies As of Date: 02/05/2018 Noted Allergy Reaction ASA (ASPIRIN) 01/16/2015 8 - GI Upset Date Reviewed: 12/14/2017 Reviewed by: Rosaura Alfaro Warehouse Receiving Supervisor - Fully Assessed Reason for Visit: Future Appointment [[id number]] Prescriptions as of 02/05/2018 Sig: LORAZEPAM 0.5 MG TABLET Take 1 tablet by mouth every * RIVAROXABAN 20 MG TABLET Take 1 tablet by mouth DAILY * PANTOPRAZOLE 20 MG TABLET,DEL* Take 1 tablet by mouth once d* DILTIAZEM 60 MG TABLET Take 1 tablet by mouth three * METOPROLOL TARTRATE 50 MG TAB* Take 1 tablet by mouth twice * CALCIUM CARBONATE-VITAMIN D3 * Take 1 tablet by mouth once d* NYSTATIN 100,000 UNIT/GRAM TO* Apply 1 application to affect* MENTHOL 0.44 %-ZINC OXIDE 20.* Apply 1 application to affect* ASPIRIN 81 MG CHEWABLE TABLET Take 1 tablet by mouth once d* OXYGEN (HOME THERAPY) 2 L/min by Nasal Cannula rout* LISINOPRIL 20 MG TABLET Take 1.5 tablets by mouth onc* OMEPRAZOLE 20 MG CAPSULE,CECILIA* Take 1 capsule by mouth once * FISH OIL ORAL Take by mouth. Problem List As Of Date 02/05/2018 Noted Resolved HTN (hypertension) [I10] Borderline diabetes [R73.03] INVALID FOR* Endometrial cancer, grade I (HCC) [C54.1] INVALID FOR* Morbid obesity (HCC) [E66.01] INVALID FOR* Osteopenia [M85.80] INVALID FOR* Atrial flutter with rapid ventricular response *INVALID FOR* Encounter Status:Closed by JENA ROCA on 02/05/18 BLOOD GASES BY CPS Collected: 02/04/2018 Status: F Source: [place] 9:50 PM [facility] REPOSITORY TYPE CODE TESTS RESULT OUT OF RANGE REFERENCE UNITS LAB L9000.9990 Normal BLD GAS TYPE ART LAB L9001.1000 R Normal SITE Brachial LAB L9001.1010 NA Normal ERNA TEST LAB L9001.1050 O2 Bi Normal Delivery Dev / C PAP LAB L9001.1074 40 Normal FI02 LAB L9001.1088 16 Normal IPAP LAB L9001.1090 10 Normal EPAP LAB L9001.1104 Normal Results To HOSP LAB L9001.1105 Normal Time Given 2144 LAB L9001.1110 7.35-7.45 pH Normal - I-STAT 7.40 LAB L9001.1210 35-45 mmHg High pCO2 - ISTAT 50.2 LAB L9001.1310 75-100 mmHG Low 72 PO2 I-STAT LAB L9001.2300 22-26 mmol/L High HCO3 ISTAT 31.1 LAB L9001.2400 -2 to +2 mmol/L High BE 6 ISTAT LAB L9001.2415 mmol/L 33 Normal TOTAL CO2 ISTAT LAB L9001.2425 95-99 % Low 94 SO2 ISTAT Performed By: #### L9000.0800 #### [facility] Point of Care [address] [place] [address] URINALYSIS, COMPLETE Collected: 02/04/2018 Status: F Source: [place] 8:02 PM [facility] REPOSITORY Order Comment: Order Date: 02/04/18 Has pt arrived? Y COLOR OF URINE MAY AFFECT DIPSTICK RESULTS. How was Urine Obtained? TRANSFORMER INSPECTOR TO SPECIFY TYPE CODE TESTS RESULT OUT OF RANGE REFERENCE UNITS LAB L400.3000 Yellow COLOR Normal Arin LAB L400.3050 Clear Normal CLARITY Cloudy LAB L400.3200 Normal mg/dl Normal GLUCOSE, UR Normal LAB L400.3300 Negative mg/dL High BILIRUBIN URINE 1 Result Comment: COLOR OF URINE MAY AFFECT DIPSTICK RESULTS. LAB L400.3400 Negative mg/dl Normal KETONE UR Negative LAB L400.3465 1.002-1.030 Normal SP.GR. DIPSTX 1.020 LAB L400.3550 5.0 - 8.0 pH Normal UR 5.0 LAB L400.3600 Negative mg/dl High PROT DIPSTX 100 LAB L400.3700 Normal mg/dl High UROBILI 4 LAB L400.3750 Negative High NITRITE UR Positive LAB L400.3780 Negative /ul High OCCULT 250 BLOOD-UR LAB L400.3800 Negative /ul High LEUK ESTERASE 100 LAB L400.4050 0-5 /hpf Normal WBC 0-5 SEEN LAB L400.4100 0-5 /hpf Normal RBC-UA > 100 SEEN Result Comment: Microscopic field is filled. Other elements may be obscured. LAB L400.4150 5-10 /hpf Normal SQUAM EPI 0 SEEN LAB L400.4300 None Seen /hpf Normal BACTERIA 2+ LAB L400.4350 <or=2+ /hpf Normal MUCUS, URINE 0 SEEN Performed By: #### L400.0001 #### [facility] [address] [place], [address] CHEST 1 VIEW Observed: 02/04/2018 Status: F Source: [place] (PORTABLE) 6:36 PM [facility] REPOSIT[facility] [place] [address] Chest 1 View (Portable) MR#: [id number] Acct: [id number] Name: ALBA FLORES Rep #: [id number] : 1950 F 67 From: Edwin Duarte MD PCP: Sanchez Spears MD Status: REG ER Study: Chest 1 View (Portable) Date of Exam: 02/04/18 Exam# [id number] Ordering Dr: Dennis Small MD STUDY: X-RAY CHEST REASON FOR EXAM: Female, 67 years old. COPD with worsening shortness of breath. TECHNIQUE: Single frontal view of the chest. COMPARISON: November 18, 2017 FINDINGS: The diffuse interstitial pattern has increased in prominence. There are large bilateral effusions, left greater than right which have increased. There is cardiomegaly. Normal mediastinum and angi. Normal visualized pulmonary arteries. Normal visualized aortic arch and descending thoracic aorta. Normal visualized thoracic spine. Normal visualized ribs, clavicles, and shoulders. There is no demonstrated abnormality of the visualized soft tissue structures of the upper abdomen. RAD/Chest 1 View (Portable) IMPRESSION: Findings compatible with worsening interstitial edema/congestive failure with effusions. Electronically Signed: Edwin Duarte MD at 19:11 EDT , Service support , CC: Dennis Small MD; Sanchez Spears MD Acid Mixer: Signed CBC W/DIFF, AUTOMATED Collected: 02/04/2018 Status: F Source: [place] 6:24 PM [facility] REPOS[facility] TYPE CODE TESTS RESULT OUT OF RANGE REFERENCE UNITS LAB L100.1000 4.4-11.0 K/mm3 High WBC 11.8 LAB L100.1200 4.2-5.4 M/mm3 Normal RBC 5.04 LAB L100.1300 12.0-15.0 g/dl Normal HGB 14.4 LAB L100.1400 37-47 % High HCT 48.5 LAB L100.1500 81-99 fL Normal MCV 96.2 LAB L100.1600 27.0-32.0 pg Normal MCH 28.6 LAB L100.1700 32-36 g/gl Low MCHC 29.7 LAB L100.1810 11.6-14.6 % Normal RDW CV 14.1 LAB L100.1820 35.1-43.9 fl High RDW SD 49.5 LAB L100.1900 150-450 K/mm3 Normal PLT 217 LAB L100.2000 6.2-12.0 fl Normal MPV 9.7 LAB L100.2100 47-70 % Normal NEUT% 55.5 LAB L100.2200 19-41 % Normal LY% 31.8 LAB L100.2300 0-10 % High MONO% 10.9 LAB L100.2400 0-5 % Normal EO% 1.3 LAB L100.2500 0-1 % Normal BASO% 0.2 LAB L100.2550 0.0-0.9 % Normal IM GRAN % 0.300 Result Comment: IG% - Immature Granulocytes (promyelocytes, myelocytes and metamyelocytes) > 1% indicates that a LEFT SHIFT is Present. LAB L100.2620 2.0-7.7 X10 3/uL Normal Absolute Neut 6.6 LAB L100.2720 0.83-4.51 X10 3/ul Normal Absolute Lymph 3.77 Performed By: #### L100.0100 #### [facility] [address] [place], [place], [address] BASIC METABOLIC Collected: 02/04/2018 Status: F Source: [place] PROFILE ([facility]) 6:24 PM [facility] REPOSITORY TYPE CODE TESTS RESULT OUT OF RANGE REFERENCE UNITS LAB L501.0100 74-106 mg/dL High GLU 134 Result Comment: Fasting Glucose result greater than or equal to 126 mg/dL suggests DIABETES MELLITUS per A.D.A. criteria. Please note revised GLUCOSE reference range effective 2017. LAB L501.1000 7-18 mg/dL High BUN 19 LAB L501.1100 0.55-1.02 mg/dL High CREAT,SERUM 1.25 Result Comment: The validity of the calculated GFR AND GFRAA in patients over 70 years has not been determined. Clinical correlation is essential. LAB L501.1110 >60 mL/min Low EST GFR 45 Result Comment: Non- GFR Calc LAB L501.1115 >60 mL/min Low EST GFR - AA 55 Result Comment: GFR Calc LAB L501.1255 ml/min Normal Estimated CRCL 35.14 LAB L501.1300 10-20 RATIO Normal BUN/CRE 15.2 LAB L501.2200 8.5-10 mg/dL Normal .1 CA 8.5 LAB L501.5300 136-14 mmol/L Normal 5 NA 144 LAB L501.5600 3.5-5. mmol/L Normal 1 K 3.9 LAB L501.5900 98-107 mmol/L Normal CL 107 LAB L501.6100 21.0-3 mmol/L High 2.0 CO2 33.0 LAB L501.6200 5-15 Low GAP 4 Performed By: #### L500.2500, L501.4010 #### [facility] [address] [place], [place], [id number] TROPONIN-I Collected: 02/04/2018 Status: F Source: [place] 6:24 PM [facility] REPOSITORY TYPE CODE TESTS RESULT OUT OF RANGE REFERENCE UNITS LAB L501.4010 <0.045 ng/mL Normal < 0.015 TROPONIN-I Result Comment: TROPONIN-I EXPECTED VALUES <0.045 Negative 0.045 - 0.590 Consistent with Cardiac Damage > OR = 0.600 Critical Value Not every elevated troponin is indicative of [place]. These values should be used with clinical judgement in examining the patient's clinical picture for diagnosis. To establish a diagnosis of [place] versus myocardial injury, there must be a demonstrated rise and/or fall in the troponin values, in addition to ischemic symptoms, EKG changes, new regional wall motion abnormality, and/or angiographical evidence. PLEASE NOTE: REFERENCE RANGES EDITED 17 Performed By: #### L500.2500, L501.4010 #### [facility] [address] [place], [place], [address] BNP,B-TYPE NATRIURETIC Collected: 02/04/2018 Status: F Source: [place]PTIDE 6:24 PM [facility] REPOSITORY TYPE CODE TESTS RESULT OUT OF RANGE REFERENCE UNITS LAB L503.6620 0-100 pg/mL High B-TYPE 628.5 MRECEDES PEP Performed By: #### L503.6620 #### [facility] [address] [place], [address] CR-CHEST 1 VIEW Observed: 02/04/2018 Status: F Source: [place] (PORTABLE) IMPORT 12:00 AM [facility] REPOSITORY Images were obtained outside of [facility] [id number] PROGRESS Observed: 01/19/2018 Status: COMPLETED Source: [place] 4:44 PM [facility] REPOSITORY HNO ID: [id number] Author: Rin (Leticia) Farhana Service: (none) Author Type: Registered Nurse Type: Progress Notes Filed: 01/19/2018 4:58 PM Note Text: PRIMARY CARE COORDINATION FOLLOW-UP NOTE Provider Action/FYI Pt asking about personal concentrator instead of portable oxygen Discussed with PCP, pt needs to be seen before he will think about order for personal concentrator Pt still not elevating LEs during the day. Instructed to move from couch into recliner for several hours in afternoon to elevate her legs, verbalized understanding Patient identified by name and date of . YES Spoke to patient Summary: Pt SOB with amb 20-30' normal respirations resume after 1- 2 min rest No cough, wheeze or chest pain LE edema no better Event Staff plan for next outreach: Will follow up one week Signature Rin Delcid RN January 19, 2018 CNPTOUTREACH Observed: 01/19/2018 Status: COMPLETED Source: [place] 12:00 AM [facility] REPOSITORY Patient Outreach (FAMPWS) ALBA FLORES ([id number]) 1950 F Date Time Provider Department 01/19/18 RIN DELCID (RN) FAMPWS During your visit today, we recorded the following information about you: Rin Delcid RN 01/19/2018 4:58 PM Signed PRIMARY CARE COORDINATION FOLLOW-UP NOTE Provider Action/FYI Pt asking about personal concentrator instead of portable oxygen Discussed with PCP, pt needs to be seen before he will think about order for personal concentrator Pt still not elevating LEs during the day. Instructed to move from couch into recliner for several hours in afternoon to elevate her legs, verbalized understanding Patient identified by name and date of . YES Spoke to patient Summary: Pt SOB with amb 20-30' normal respirations resume after 1- 2 min rest No cough, wheeze or chest pain LE edema no better Event Staff plan for next outreach: Will follow up one week Signature Rin Delcid RN January 19, 2018 Allergies As of Date: 01/19/2018 Noted Allergy Reaction ASA (ASPIRIN) 01/16/2015 8 - GI Upset Date Reviewed: 12/14/2017 Reviewed by: Rosaura Alfaro Warehouse Receiving Supervisor - Fully Assessed Reason for Visit: Sign Wirer Chronic Care [[id number]] Prescriptions as of 01/19/2018 Sig: LORAZEPAM 0.5 MG TABLET Take 1 tablet by mouth every * RIVAROXABAN 20 MG TABLET Take 1 tablet by mouth DAILY * PANTOPRAZOLE 20 MG TABLET,DEL* Take 1 tablet by mouth once d* DILTIAZEM 60 MG TABLET Take 1 tablet by mouth three * METOPROLOL TARTRATE 50 MG TAB* Take 1 tablet by mouth twice * CALCIUM CARBONATE-VITAMIN D3 * Take 1 tablet by mouth once d* NYSTATIN 100,000 UNIT/GRAM TO* Apply 1 application to affect* MENTHOL 0.44 %-ZINC OXIDE 20.* Apply 1 application to affect* ASPIRIN 81 MG CHEWABLE TABLET Take 1 tablet by mouth once d* OXYGEN (HOME THERAPY) 2 L/min by Nasal Cannula rout* LISINOPRIL 20 MG TABLET Take 1.5 tablets by mouth onc* OMEPRAZOLE 20 MG CAPSULE,CECILIA* Take 1 capsule by mouth once * FISH OIL ORAL Take by mouth. Problem List As Of Date 01/19/2018 Noted Resolved HTN (hypertension) [I10] Borderline diabetes [R73.03] INVALID FOR* Endometrial cancer, grade I (HCC) [C54.1] INVALID FOR* Morbid obesity (HCC) [E66.01] INVALID FOR* Osteopenia [M85.80] INVALID FOR* Atrial flutter with rapid ventricular response *INVALID FOR* Encounter Status:Closed by RIN DELCID on 01/22/18 PROGRESS Observed: 01/12/2018 Status: COMPLETED Source: [place] 12:23 PM [facility] REPOSITORY HNO ID: [id number] Author: Marlene Daigle) Marilia Service: (none) Author Type: Linen Clerk Type: Progress Notes Filed: 01/12/2018 1:47 PM Note Text: Ho spoke with RDORIGO and application is still processing for patient xarelto. The company will fax Ho determination when processing is complete. PROGRESS Observed: 01/08/2018 Status: COMPLETED Source: [place] 3:12 PM [facility] REPOSITORY HNO ID: [id number] Author: Marlene Capellan (Sw) Service: (none) Author Type: Linen Clerk Type: Progress Notes Filed: 01/12/2018 1:47 PM Note Text: Ho spoke with patient in regards to prescription and medicare assistance. Patient reports that she received denial from [facility] and that would have been for help with her part b monthly cost. Patient has not received anything yet from Medicare/Social Security in regards to Extra Help for Part D cost. Ho called [employer] to check on status of patient assistance application for xarelto. Rep states that Ho should call back again on 01/10 to check and see if determination has been made on application and then if approved rep would give Sw number for patient to use at the pharmacy. Ho let patient know that she would check back with RODRIGO on 01/10 and let patient know if she finds out if approved or not. MAGDYW Observed: 01/08/2018 Status: COMPLETED Source: [place] 12:00 AM [facility] REPOSITORY Social Work (MAXWELL) ALBA FLORES ([id number]) 1950 F Date Time Provider Department 01/08/18 MARLENE CAPELLAN (LIZZY ARREOLA During your visit today, we recorded the following information about you: Marlene ANÍBAL Capellan-DRUG WORKER 01/12/2018 1:47 PM Signed Ho spoke with patient in regards to prescription and medicare assistance. Patient reports that she received denial from [facility] and that would have been for help with her part b monthly cost. Patient has not received anything yet from Medicare/Social Security in regards to Extra Help for Part D cost. Ho called [employer] to check on status of patient assistance application for el. Rep states that Ho should call back again on 01/10 to check and see if determination has been made on application and then if approved rep would give Sw number for patient to use at the pharmacy. Ho let patient know that she would check back with RODRIGO on 01/10 and let patient know if she finds out if approved or not. Marlene ANÍBAL Capellan-DRUG WORKER 01/12/2018 1:47 PM Signed Ho spoke with RODRIGO and application is still processing for patient el. The company will fax Ho determination when processing is complete. Allergies As of Date: 01/08/2018 Noted Allergy Reaction ASA (ASPIRIN) 01/16/2015 8 - GI Upset Date Reviewed: 12/14/2017 Reviewed by: Rosaura Alfaro Warehouse Receiving Supervisor - Fully Assessed Prescriptions as of 01/08/2018 Sig: PANTOPRAZOLE 20 MG TABLET,DEL* Take 1 tablet by mouth once d* DILTIAZEM 60 MG TABLET Take 1 tablet by mouth three * METOPROLOL TARTRATE 50 MG TAB* Take 1 tablet by mouth twice * RIVAROXABAN 20 MG TABLET Take 1 tablet by mouth DAILY * CALCIUM CARBONATE-VITAMIN D3 * Take 1 tablet by mouth once d* NYSTATIN 100,000 UNIT/GRAM TO* Apply 1 application to affect* MENTHOL 0.44 %-ZINC OXIDE 20.* Apply 1 application to affect* ASPIRIN 81 MG CHEWABLE TABLET Take 1 tablet by mouth once d* OXYGEN (HOME THERAPY) 2 L/min by Nasal Cannula rout* LISINOPRIL 20 MG TABLET Take 1.5 tablets by mouth onc* OMEPRAZOLE 20 MG CAPSULE,CECILIA* Take 1 capsule by mouth once * FISH OIL ORAL Take by mouth. Problem List As Of Date 01/08/2018 Noted Resolved HTN (hypertension) [I10] Borderline diabetes [R73.03] INVALID FOR* Endometrial cancer, grade I (HCC) [C54.1] INVALID FOR* Morbid obesity (HCC) [E66.01] INVALID FOR* Osteopenia [M85.80] INVALID FOR* Atrial flutter with rapid ventricular response *INVALID FOR* Follow-up and Disposition History Recorded Encounter Status:Closed by MARLENE JARRETT on 01/12/18 PROGRESS Observed: 01/05/2018 Status: COMPLETED Source: [place] 4:[address] [facility] REPOSITORY HNO ID: [id number] Author: Rin (Leticia) Farhana Service: (none) Author Type: Registered Nurse Type: Progress Notes Filed: 01/05/2018 4:58 PM Note Text: TRANSITION CARE MANAGEMENT (TCM) FOLLOW-UP NOTE Provider Action/FYI Pitting edema in LE-not elevating LE during day and sleeps in recliner. Cough improving, no wheeze No chest pain, occasional chest pressure relieved with expectorating mucous. Patient was denied Medicaid. Pt asking if HO can call to discuss other options to help with costs. Patient identified by name and date of : YES Spoke to patient Summary: No wheeze, SOB with ambulating in home, normal resp resume in 1 min rest. F/U w/ Dr. King in Dec Occasional productive cough, expectorating sm amt of clear mucous. Occasional pressure in chest, no pain, relieved with expectorating mucous States energy level and strength has improved quite a bit since discharge. Walking all over home and cooking meals Feels heart beat with her A fib. Still has pitting edema in LE, restricting fluids. Doesn't elevate LE during the day and sleeps in recliner at night. Instructed to elevate LE during day, verbalized agreement. Event Staff plan for next outreach: Will follow up 2 weeks Signature Rin Delcid RN January 05, 2018 PULMONARY VISIT REPORT Observed: 01/05/2018 Status: F Source: [place] 11:53 AM [facility] REPOSITORY [facility] [address] [place] [address] OFFICE VISIT Date of Service: 01/04/18 MR#: [id number] Acct: [id number] Name: ALBA FLORES Rep #: [id number] : 1950 Provider: Esther Arce Age/Sex: 67/F Location: [facility] [place] Status: Signed Assessment AND Plan 1. CECILIA (obstructive sleep apnea) G47.33 Plan Newly identified as having mild to severe obstructive sleep apnea, titration study pending. Once interpretation is received the patient will be set up therapy. The patient was encouraged to wear the device at least 4 hours a night, she reports that she plans to wear it any time spent sleeping and is tolerating her daughter's CPAP quite well at this time. Follow-up with Dr. Newman in 2 months, to evaluate her response to Pap therapy. She has been encouraged to contact the office with any new or worsening symptoms in the meantime. 2. Shortness of breath R06.02 Plan Starting the patient on albuterol nebulizer as needed at home, also ordered an albuterol rescue inhaler to be used when away from home as needed for shortness of breath, cough, wheezing or chest tightness. The patient was personally instructed on how to use the nebulizer in the office today. Follow-up with Dr. Newman in 2 months, no additional testing at this time. 3. Chronic obstructive pulmonary disease, unspecified COPD type J44.9 Plan Starting albuterol nebulizer as needed. No additional inhalers at this time. Once the patient can be evaluated on the frequency of her albuterol use, we can evaluate whether maintenance medications would be appropriate or not. 2 month follow-up with Dr. Newman. Orders Orders: Medications Discontinued: albuterol sulfate Discontinued Rea2.5 mg (3 mL) Continuous Nebulization Georgie Fleming son: Office Medication has been Docu ONCE mented as given 4. Acute respiratory failure with hypoxia and hypercapnia J96.01; J96.02 Plan Continue to utilize submental oxygen as indicated to maintain saturations 89-92%. No additional testing at this time. Plan Detail Other Orders Orders: Other Medications New: Discontinued: Fluad 65yr up(PF)45 mcg(15 mcgx3)/0.5 mL int0.5 mL IM ONCE NS Z23 Georgie Fleming ramuscular syringe (flu vac 2018 [id number](PF)) Discontinued Reason: Office Medication has been Documented as given Follow Up 2 Months (BWA) HPI F2F for nebulizer: Chief Complaint: Shortness of breath HPI Comments Details: This patient presents the office today to follow- up after recently having testing completed. She is in a wheelchair, wearing nasal cannula oxygen and accompanied by her daughter. She has not been seen in the ED or urgent care for respiratory illnesses since her last office visit. She did not require any antibiotic to prednisone for any breathing problems. Currently she experiences shortness of breath on exertion and is exerted easily. She does have an occasional cough that is productive of clear sputum. She is not currently on any inhalers but reports that while in hospital she was treated with an albuterol nebulizer and felt that it gave her good relief of her shortness of breath. She also reports that the nebulizer treatment she received during her PFT provided her with better breathing for several hours. She reports lower extremity edema. She denies any chest pain or palpitations. She has not experienced any fever, chills or body aches. She does report occasional wheezing. She is compliant with 2 L of nasal cannula oxygen at all times. She was treated with a BiPAP while in the hospital, is aware that she needs to be treated for sleep apnea and is actually looking forward to getting set up with Pap therapy. Currently, she is utilizing her daughter's CPAP but reports that it is not quite as comfortable as the BiPAP she wore during the hospitalization. Walking oximetry that was performed on December 28 shows the patient was able to endplate 269 feet over the course of 6 minutes. She did become hypoxic and required 2 L of nasal cannula oxygen during exertion. Pulmonary function test was completed on December 21, 2017 and was interpreted as showing a reversible severe mixed ventilatory defect with asymmetric reduction in diffusing capacity. FVC 50% predicted, FEV1 39%, FEV1/FVC 60%, TLC 60% of predicted, RV 70% and DLCO 40% of predicted. Complete polysomnogram was completed on December 20, 2017 and showed an overall AHI of 5.2, however it is noted that during the REM stage of sleep her average AHI was elevated to 30 events per hour. She was diagnosed with mild to severe obstructive sleep apnea and it is suggested that a titration study be completed all the patient is wearing 3 L of continuous oxygen. Intake Vital Signs09/20/18 Height 5 ft 5 in 01/04/18 Weight: 349 lb Intake Visit Reasons: F2F for nebulizer Chief Complaint: Shortness of breath on exertion DME Vendor: [employer] Accompanied by: Daughter Allergies aspirin [ASA] Adverse Reaction (Verified 01/04/18 12:11) stomach burning and sick to stomach propoxyphene HCl [From Darvon] Adverse Reaction (Verified 01/04/18 12:11) i get dizzy and pass out Medications Calcium Carbonate/Vitamin D3 [Calcium 500+D Tablet Chew] 1 ea PO DAILY 11/14/17 [History Confirmed 12/11/17] acetaminophen 500 mg tablet 1,000 mg PO Q6H PRN tab 12/01/17 [History Confirmed 12/11/17] Diltiazem [Cardizem] 60 mg PO Q8 #90 tab 12/05/17 [Rx Confirmed 12/11/17] Lorazepam [Ativan] 0.5 mg PO Q6H PRN PRN #14 tab 12/05/17 [Rx Confirmed 12/11/17] Menthol/Lanolin/Calamine/Znox [Calmoseptine Ointment] 1 applic TOPICAL 0600,2200 tube 12/05/17 [Rx Confirmed 12/11/17] Metoprolol Tartrate [Lopressor (beta maeve)] 50 mg PO BID #60 tab 12/05/17 [Rx Confirmed 12/11/17] Nystatin Powder [Mycostatin Powder] 1 applic TOPICAL TID bottle 12/05/17 [Rx Confirmed 12/11/17] Pantoprazole Sodium [Protonix] 20 mg PO DAILY #30 tab 12/05/17 [Rx Confirmed 12/11/17] Rivaroxaban [Xarelto] 20 mg PO DAILY@1800 #30 tab 12/05/17 [Rx Confirmed 12/11/17] Apixaban [Eliquis] 5 mg PO BID #60 tab 12/06/17 [Rx Confirmed 12/11/17] albuterol sulfate 2.5 mg/3 mL (0.083 %) solution for nebulization 2.5 mg INHALATION Q4H PRN #180 vial 01/04/18 [Rx Confirmed 01/04/18] albuterol sulfate HFA 90 mcg/actuation aerosol inhaler 2 puff INHALATION Q4H PRN #18 g 01/04/18 [Rx Confirmed 01/04/18] [facility] Medical History Shortness of breath (Acute) Atrial flutter with rapid ventricular response (Acute) Healthcare associated bacterial pneumonia (Acute) Acute kidney injury (Acute) Chest pain (Acute) Chronic obstructive pulmonary disease (Chronic) Acute respiratory failure (Acute) Healthcare-associated pneumonia (Acute) Atrial flutter (Acute) Morbid obesity (Chronic) HTN (hypertension) (Chronic) GERD (gastroesophageal reflux disease) (Chronic) CECILIA (obstructive sleep apnea) (Acute) Surgical History History of total hysterectomy (Resolved) Family History Mother Heart disease Father Heart disease Social History Smoking Status: Former smoker how long ago did patient quit smokin, 1ppd second hand exposure: Yes alcohol intake: never substance use type: does not use Review of Systems Const CONSTITUTIONAL: Negative anorexia, body ache, chills, daytime sleepiness, fever(s), night sweats, oral thrush, stops breathing during sleep, weight loss, sleeping in chair, fatigue, weight loss, weight gain, frequent colds, seasonal allergies, other, headache(s) or orthopnea EETM Ear Nose Throat Mouth: Positive hearing normal; negative hard of hearing, hoarseness, dry mouth in morning, change in vision, itchy eyes, eye pain, swallowing Difficulty, ear pain, nose bleed, headache(s), mouth pain, nasal congestion, nasal discharge, post nasal drip, sinus pain, sinus pressure, sore throat or other Cardio Cardiovascular: Negative chest pain, chest pain at rest, chest pain with activity, irregular heart rhythm, edema, shortness of breath when lying down, palpitations, murmur or other Resp Respiratory: Positive as per HPI, shortness of breath shortness of breath: Positive with activity and cough cough: Positive productive color: Positive clear; negative pain with cough, wheezing, chest congestion, chest tightness, pain on inspiration, inhalers, increase use of rescue inhalers, snoring, apnea or other Gastro Gastrointestional: Negative bloody stools, change in appetite, difficulty swallowing, reflux, hematemesis, melena stool, loose stool, constipation or other Genitourinary: Negative blood in urine, nocturia, pain with urination or other Musc Musculoskeletal: Negative body pain, back pain, neck pain or other Skin/Breast Skin/Breast: Negative dry skin, itching, rash, unusual bruising, breast lump or other Neuro Neurological: Negative restless legs, confusion, weakness or other Psych Psychocological: Negative abnormal sleep pattern, anxiety, thoughts of hurting self/others, hopelessness or other Lymph Lymphatic: Negative easy bleeding, easy bruising, swollen lymph nodes or other Exam Const Constitutional: Positive conversant, cooperative, in no acute respiratory distress, healthy appearing, well developed, well nourished, good hygiene, wearing supplemental oxygen and obese Head Head: Positive normocephalic and atraumatic; negative cyanosis of lips/distal nose Eyes Eye: Positive clear conjunctiva; negative nystagmus or scleral abnormality Ears Ear: Positive hearing normal and external ears normal; negative hard of hearing Nose Nose: Positive external nose normal and no nasal discharge; negative epistaxis Mouth Mouth: Positive oral mucosae normal, no lesions, dentures and crowded posterior oropharynx; negative post nasal drip, malodorous breath or oral thrush present Mallampati Score: III: Mallampati Score Neck Neck: Positive normal visual inspection, full ROM and trachea midline; negative lymphadenopathy, JVD or tender Chest Wall Chest: Positive normal inspection of the chest and symmetric chest movement; negative increased A/P diameter Resp lung sounds: Positive clear to auscultation, diminished diminished: Positive bialteral and lower, normal expiratory time and normal respiratory effort; negative wheezes, rhonchi, rales, dullness to percussion or wheeze present on forced exhalation Cardio Cardiac: Positive regular rate, regular rhythm, S1 normal and S2 normal; negative murmur GI GI: Positive normal to inspection and obese; negative distended Genitourinary: Positive deferred Musc Musculoskeletal: Positive steady gait and ROM normal; negative kyphosis or scoliosis Skin Pulmonary Skin Exam: Positive intact; negative rash or lesion Pulses Pulse: Yes pulses normal x4 extremities Extremities Extremities: Yes capillary refill normal, No clubbing, No cyanosis, Yes edema Location: lower extremity location: Bilateral pitting +3 Neuro Neurologic: Yes conversant, Yes no focal neuro deficits, Yes normal concentration, Yes understands questions, Yes cooperative, Yes normal cognition, Yes normal coordination Lymph Lymphatic: No lymphadenopathy, Yes tenderness, No cervical adenopathy Psych Appearance: Positive grossly normal, eye contact and well kempt Mental Status: Positive mental status grossly normal Mood: Positive congruent mood Affect: Positive normal affect Office Procedures albuterol sulfate 2.5 mg/3 mL (0.083 %) solution for nebulization 2.5 mg Continuous Nebulization ONCE Aerosol Treatment Procedure performed by: Georgie Fleming Number of aerosol treatments: 1 Office Meds albuterol sulfate Performing Provider: EMMA José Administered by: Georgie Fleming on 01/04/18 13:54 Dose Route Admin Location Lot Number Expiration Date NDC Drafter Landscape 2.5 mg Continuous Nebulinhaltion [id number] 06/15/18 2545-4631-57 MYLAN ization Fluad 65yr up(PF)45 mcg(15 mcgx3)/0.5 mL intramuscular syringe Performing Provider: EMMA José Administered by: Georgie Fleming on 01/04/18 13:54 Dose Route Admin Location Lot Number Expiration Date NDC [employer]scape 0.5 mL IM Rt deltoid [id number] 08/14/18 76889-965-05 SEQIRUS Coding Level of Care Code Off vis,est,level 4 Diagnoses CECILIA (obstructive sleep apnea) G47.33 Shortness of breath R06.02 Chronic obstructive pulmonary disease, unspecified COPD type J44.9 COPD type: unspecified COPD Acute respiratory failure with hypoxia and hypercapnia J96.01; J96.02 Respiratory failure complication: hypoxia and hypercapnia Additional Codes Aerosol Treatment (63457) Time Spent (min) 30 01/05/18 1153 <Electronically signed by Esther CARTER> Date Esther CARTER Cosigner Signature: Date (if applicable) CC: Sanchez Spears MD [facility] Observed: 01/05/2018 Status: COMPLETED Source: [place] 12:00 AM [facility] REPOSITORY Patient Outreach (FAMPWS) ALBA FLORES ([id number]) 1950 F Date Time Provider Department 01/05/18 RIN DELCID (RN) FAMPWS During your visit today, we recorded the following information about you: Rin Delcid RN 01/05/2018 4:58 PM Signed TRANSITION CARE MANAGEMENT (TCM) FOLLOW-UP NOTE Provider Action/FYI Pitting edema in LE-not elevating LE during day and sleeps in recliner. Cough improving, no wheeze No chest pain, occasional chest pressure relieved with expectorating mucous. Patient was denied Medicaid. Pt asking if SW can call to discuss other options to help with costs. Patient identified by name and date of : YES Spoke to patient Summary: No wheeze, SOB with ambulating in home, normal resp resume in 1 min rest. F/U w/ Dr. King in Dec Occasional productive cough, expectorating sm amt of clear mucous. Occasional pressure in chest, no pain, relieved with expectorating mucous States energy level and strength has improved quite a bit since discharge. Walking all over home and cooking meals Feels heart beat with her A fib. Still has pitting edema in LE, restricting fluids. Doesn't elevate LE during the day and sleeps in recliner at night. Instructed to elevate LE during day, verbalized agreement. Event Staff plan for next outreach: Will follow up 2 weeks Signature Rin Delcid RN January 05, 2018 Allergies As of Date: 01/05/2018 Noted Allergy Reaction ASA (ASPIRIN) 01/16/2015 8 - GI Upset Date Reviewed: 12/14/2017 Reviewed by: Rosaura Alfaro Warehouse Receiving Supervisor - Fully Assessed Reason for Visit: Sign [facility] Follow Up [3610] Prescriptions as of 01/05/2018 Sig: PANTOPRAZOLE 20 MG TABLET,DEL* Take 1 tablet by mouth once d* DILTIAZEM 60 MG TABLET Take 1 tablet by mouth three * METOPROLOL TARTRATE 50 MG TAB* Take 1 tablet by mouth twice * RIVAROXABAN 20 MG TABLET Take 1 tablet by mouth DAILY * CALCIUM CARBONATE-VITAMIN D3 * Take 1 tablet by mouth once d* NYSTATIN 100,000 UNIT/GRAM TO* Apply 1 application to affect* MENTHOL 0.44 %-ZINC OXIDE 20.* Apply 1 application to affect* ASPIRIN 81 MG CHEWABLE TABLET Take 1 tablet by mouth once d* OXYGEN (HOME THERAPY) 2 L/min by Nasal Cannula rout* LISINOPRIL 20 MG TABLET Take 1.5 tablets by mouth onc* OMEPRAZOLE 20 MG CAPSULE,CECILIA* Take 1 capsule by mouth once * FISH OIL ORAL Take by mouth. Problem List As Of Date 01/05/2018 Noted Resolved HTN (hypertension) [I10] Borderline diabetes [R73.03] INVALID FOR* Endometrial cancer, grade I (HCC) [C54.1] INVALID FOR* Morbid obesity (HCC) [E66.01] INVALID FOR* Osteopenia [M85.80] INVALID FOR* Atrial flutter with rapid ventricular response *INVALID FOR* Encounter Status:Closed by RIN DELCID on 01/05/18 PROGRESS Observed: 12/29/2017 Status: COMPLETED Source: [place] 3:36 PM [facility] REPOSITORY O ID: [id number] Author: Rin (Leticia) Farhana Service: (none) Author Type: Registered Nurse Type: Progress Notes Filed: 12/29/2017 3:40 PM Note Text: PRIMARY CARE COORDINATION QUICK NOTE Provider Action/LUDWIG MUNROE TC from Valarie at Dr. King's office, the nebulizer treatment during PFT did not improve patient's pulmonary status but if pt subjectively feels a nebulizer treatment made her feel better then they will see patient for an appointment next and will discuss home nebulizer. They called pt and made her aware of the appointment with them next . Patient identified by name and date . Rin Delcid RN 6 MINUTE WALK TEST Observed: 12/29/2017 Status: F Source: [place] 12:58 PM [facility] REPOSITORY [facility] Pulmonary Services/Neurology [address] [place] [address] MR#: [id number] Acct: [id number] Name: ALBA FLORES Rep #: [id number] : 1950 67 From: Charlie iKng DO Referring Dr: Esther Arce [employer] Date: Ordering Dr: Sex: F C Location: PSN PSN 6 Minute Walk Test - 6 Minute Walk Test 6 Minute Walk Test: 6 Minute Walk Test PSN:6-Minute Walk Test Start: 12/28/17 11:13 Freq: Status: Active Protocol: RESP.6MINW Document 12/28/17 11:13 SMB (Rec: 12/28/17 11:25 SMB [id number]) 6 Minute Walk Test Date Performed 12/28/17 Time Performed 10:52 Height 5 ft 4 in Weight: 348 lb Weight in Pounds [address]: Esther Arce Assistive device used: None Pre-test Oxygen Flow Rate (L/min) (L/min) 2 Oxygen Delivery Method Nasal Cannula Pulse Ox (%) 94 Pulse Rate (60-100 beats/min) 121 H Dyspnea Delfino Scale (0-10) 6 Exertion Delfino Scale (6-20) 11 1st minute Oxygen Flow Rate (L/min) (L/min) 2 Oxygen Delivery Method Nasal Cannula Pulse Ox (%) 93 Pulse Rate (60-100 beats/min) 67 2nd minute Oxygen Flow Rate (L/min) (L/min) 2 Oxygen Delivery Method Nasal Cannula Pulse Ox (%) 90 Pulse Rate (60-100 beats/min) 121 H 3rd minute Oxygen Flow Rate (L/min) (L/min) 2 Oxygen Delivery Method Nasal Cannula Pulse Ox (%) 93 Pulse Rate (60-100 beats/min) 119 H 4th minute Oxygen Flow Rate (L/min) (L/min) 2 Oxygen Delivery Method Nasal Cannula Pulse Ox (%) 93 Pulse Rate (60-100 beats/min) 121 H 5th minute Oxygen Flow Rate (L/min) (L/min) 2 Oxygen Delivery Method Nasal Cannula Pulse Ox (%) 94 Pulse Rate (60-100 beats/min) 103 H 6th minute Oxygen Flow Rate (L/min) (L/min) 2 Oxygen Delivery Method Nasal Cannula Pulse Ox (%) 91 Pulse Rate (60-100 beats/min) 121 H Post-test Oxygen Flow Rate (L/min) (L/min) 2 Oxygen Delivery Method Nasal Cannula Pulse Ox (%) 94 Pulse Rate (60-100 beats/min) 92 Dyspnea Delfino Scale (0-10) 7 Exertion Delfino Scale (6-20) 13 Full Laps Walked 4 Partial Lap, Number of Tiles Walked 33 Total Distance Walked (ft) 269 12/28/17 11:20 Cardiopulmonary Services by Shantelle Armstrong Patient arrived in wheelchair. Patient stated she has trouble walking due to back pain. Family member followed behind patient with wheelchair. At minute 2 patient had to sit and continued to sit until minute 4 of test. Initialized on 12/28/17 11:20 - END OF NOTE - Interpretation Interpretation: The patient ambulated 269 feet over the course of 6 minutes on supplemental oxygen, with a prolonged break. Pretesting oxygen saturation was noted to be 94% on 2 L/min. The patient was noted to be tachycardic prior to the test. With ambulation, the veronica oxygen saturation was 90%. However, it was noted that the patient sat down and rested from minute 2 until minute 4 of the test, decreasing the sensitivity for detecting exertional hypoxemia. This testing indicates significant exertional hypoxemia, significantly impaired walk distance and exertional tachycardia consistent with a pulmonary limitation to exercise tolerance. - Recommendations Recommendations: 2 L/min of supplemental oxygen should be utilized with exertion. 12/29/17 1258 <Electronically signed by Charlie King DO> Date Charlie King DO CC: Date Dictated: 12/29/17 1255 Date Transcribed: 12/29/171254 Acid Mixer: Charlie King DO Signed CNPTOUTREACH Observed: 12/29/2017 Status: COMPLETED Source: [place] 12:00 AM [facility] REPOSITORY [facility] ALBA FLORES ([id number]) 1950 F Date Time Provider Department 12/29/17 RIN DELCID (RN) ROSANAWS During your visit today, we recorded the following information about you: Rin Delcid RN 12/29/2017 3:40 PM Addendum PRIMARY CARE COORDINATION QUICK NOTE Provider Action/LUDWIG WAGNER from Valarie at Dr. King's office, the nebulizer treatment during PFT did not improve patient's pulmonary status but if pt subjectively feels a nebulizer treatment made her feel better then they will see patient for an appointment next and will discuss home nebulizer. They called pt and made her aware of the appointment with them next . Patient identified by name and date . Rin Delcid RN Allergies As of Date: 12/29/2017 Noted Allergy Reaction ASA (ASPIRIN) 01/16/2015 8 - GI Upset Date Reviewed: 12/14/2017 Reviewed by: Rosaura Alfaro Warehouse Receiving Supervisor - Fully Assessed Reason for Visit: Sign Wirer Chronic Care [1320] Prescriptions as of 12/29/2017 Sig: RIVAROXABAN 20 MG TABLET Take 1 tablet by mouth DAILY * CALCIUM CARBONATE-VITAMIN D3 * Take 1 tablet by mouth once d* DILTIAZEM 60 MG TABLET Take 1 tablet by mouth three * METOPROLOL TARTRATE 50 MG TAB* Take 1 tablet by mouth twice * PANTOPRAZOLE 20 MG TABLET,DEL* Take 1 tablet by mouth once d* NYSTATIN 100,000 UNIT/GRAM TO* Apply 1 application to affect* MENTHOL 0.44 %-ZINC OXIDE 20.* Apply 1 application to affect* ASPIRIN 81 MG CHEWABLE TABLET Take 1 tablet by mouth once d* OXYGEN (HOME THERAPY) 2 L/min by Nasal Cannula rout* LISINOPRIL 20 MG TABLET Take 1.5 tablets by mouth onc* OMEPRAZOLE 20 MG CAPSULE,CECILIA* Take 1 capsule by mouth once * FISH OIL ORAL Take by mouth. Problem List As Of Date 12/29/2017 Noted Resolved HTN (hypertension) [I10] Borderline diabetes [R73.03] INVALID FOR* Endometrial cancer, grade I (HCC) [C54.1] INVALID FOR* Morbid obesity (HCC) [E66.01] INVALID FOR* Osteopenia [M85.80] INVALID FOR* Atrial flutter with rapid ventricular response *INVALID FOR* Encounter Status:Closed by RIN DELCID on 12/29/17 PROGRESS Observed: 12/28/2017 Status: COMPLETED Source: [place] 4:[address] [facility] REPOSITORY HNO ID: [id number] Author: Rin (Rn) Farhana Service: (none) Author Type: Registered Nurse Type: Progress Notes Filed: 12/28/2017 4:06 PM Note Text: PRIMARY CARE COORDINATION INTAKE Provider Action/FYI: Pt has moderate pitting edema in LE Pt reports SOB with ambulation, normal resp resume in 1-2 minutes Wearing oxygen. SMOKES IN BASEMENT OF PT'S HOME, family has told him not to smoke in home. States sleep study showed CECILIA and Dr. King is ordering CPAP TC to Dr. King's office regarding PFT results and possible order for home nebulizer. They will ask [employer]AN when she is in tomorrow SW assisting patient with multiple financial assistance applications and has given resources for food pantries and meals. Patient identified for Primary Care Coordination from: TCM Active Goals - Current status as of 12/28/2017 at 4:02 PM Most Recent - Address all appropriate HM and disease care gaps - Annual BMP - Blood Pressure < 130/80 132/80 (12/14/2017) - Confirm medication adherence of all prescribed medications and uses them correctly - Demonstrates proper inhaler technique - Improve Breathlessness Score - Tobacco cessation - Understands and follows DASH diet - Uses rescue inhaler at appropriate times - Weight mgmt/activity Health Maintenance Topics with due status: Overdue Topic Date Due BP CONTROLLED (<130/80) 02/26/1966 DTAP,TDAP,TD 02/26/1967 Health Maintenance Topics with due status: Due On Topic Date Due INFLUENZA 12/16/2017 Care Coordination: General Care Coordination (since 09/29/2017) Patient has been identified by name and date of Y Determined High Risk due to High Risk chronic condition; Unplanned Hospitalization in the last 6 months; Polypharmacy ( > 7meds); High Risk medications (anticoagulants, insulin, narcotics, ect.); Advanced/progressive illness; Chronic Symptomatology; Physical limitations; Multiple specialists Chronic High Risk conditions HTN; Other (Enter Comment); COPD (A Flutter with RVR, Morbid Obesity) Assessment completed with Children Living arrangement Spouse Support system 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 Good (Pt DM and smokes) Are there others that you care for? No Type of residence Private residence Home care services No Have you had a safety assessment of your home? No Equipment used at home -- (Is is process of having CPAP ordered) Do you have any assistive devices to help you communicate? No Communication Barriers None Have you been in any hospital and/or ED outside the [facility] in the Past 6 months? Yes (Enter Comment) I am convinced of the importance of my prescription medication Agree completely I worry that my prescription medication will do more harm than good to me Disagree completely I feel financially burdened by my out of pocket expenses for my prescription medication Agree completely Patient is categorized as Medium Risk Experiencing side effects from current medications No Difficulty keeping appointments No Family aware of the patient's advance care planning wishes Yes Mosque or spiritual beliefs that impact treatment No Chronic pain Yes (back pain) Advance Directives discussion was initiated with the pt. The following actions were taken Pt will bring in completed HCPOA Social Determinants: Education (since 09/29/2017) Who is providing Assessment Info? Patient What is the highest level of school you have completed? 9th grade Health Literacy (since 09/29/2017) How often do you need to have someone help you when you read instructions, pamphlets, or other written material from your doctor or pharmacy? 3 How confident are you filling out medical forms by yourself? 2 How best do you like to receive information? Verbal Resource Strain (since 09/29/2017) In the last 12 months, did you ever eat less than you felt you should because there wasn?t enough money for food? Yes In the last 12 months, has your [employer] company shut off your service for not paying bills? Yes Are you worried that in the next 2 months, you may not have stable housing? No Do problems getting child, senior, or adult care make it difficult for you to work or study? No In the last 12 months, have you needed to see a doctor but could not because of cost? No Are you afraid you might be hurt in your apartment building or house? No If you answered ?yes? to any of the previous six questions, would you like to receive assistance with any of these needs? Yes (Enter Comments) (pt currently meeting with SW and has been given resources and assisted with applications for assistance) Are any of your needs urgent? Yes (Enter Comments) Depression (since 09/29/2017) Over the past 2 weeks, how often have you felt little interest or pleasure in doing things? Not at all Over the past 2 weeks, how often have you felt down, depressed, or hopeless? Not at all Diet (since 09/29/2017) Diet: -- (1000ml Fluid Restriction) Number of meals per day -- (3) Physical Activity (since 09/29/2017) Physical Activity Yes On average, how many days per week do you engage in moderate to strenuous exercise? 7 days On average, how many minutes per session do you engage in moderate to strenuous physical activity? 10 minutes Tobacco Use (since 09/29/2017) Tobacco Outreach Does not Use Tobacco ( smokes in basement) Alcohol Use (since 09/29/2017) How often do you have a drink containing alcohol? -- (Drinks a beer maybe twice a year) Social Connection and Isolation (since 09/29/2017) Are you now , , , , never or living with a partner? In a typical week, how many times do you talk on the telephone with family, friends, or neighbors? More than 3 times per week How often do you get together with friends or relatives? 2 times per week How often do you attend meeting for clubs, devendra-based organizations, or other social groups? 1 to 4 times per year Intimate Partner Violence (since 09/29/2017) Has there ever been a time that you had safety concerns? No Stress (since 09/29/2017) Do you feel stress - tense, restless, nervous, or anxious, or unable to sleep at night because your mind is troubled all the time - these days? To some extent Food Insecurity (since 09/29/2017) Within the past 12 months, you worried that your food would run out before you got money to buy more. Often true Within the past 12 months, the food you bought just didn't last and you didn't have money to get more. Often true Transportation Needs (since 09/29/2017) In the past 12 months, has lack of transportation kept you from medical appointments or from getting medications? No In the past 12 months, has lack of transportation kept you from meetings, work, or getting things needed for daily living? No Transportation means: Family Activities of Daily Living: Patients can perform the following activities without help: (since 09/29/2017) Dressing No Bathing No Doing laundry Yes Climbing a flight of stairs Yes Walking briskly Yes Instrumental activities of daily living (since 09/29/2017) Do you drive a car? No Do you need help from others to take care of things inside the house, for example: laundry, house cleaning, preparing meals? Yes Did you have the help you needed? Yes Do you need help from others with errands outside the house, for example: shopping for groceries or clothes, going medical appointments? Yes Did you have the help you needed? Yes Fall Risk: Fall Risk (since 09/29/2017) One or more falls in the last year: No Any near falls in the last year? No Advised to use a cane or walker to get around safely: Yes Feels unsteady when walking: No Steadies self on furniture while walking at home: Yes Worried about falling: No Needs to push with hands when rising from a chair: Yes Has trouble stepping up onto a curb: Yes Often has to mills to the toilet: No Has lost some feeling in feet: No Takes medicine that makes him/her feel lightheaded or more tired than usual: No Takes medicine to sleep or improve mood: No Fall risk factors: Problems with heart rate or rhythm Rin Delcid RN PROGRESS Observed: 12/28/2017 Status: COMPLETED Source: [place] 2:20 PM [facility] REPOSITORY HNO ID: [id number] Author: Marlene Capellan (Sw) Service: (none) Author Type: Linen Clerk Type: Progress Notes Filed: 12/28/2017 2:22 PM Note Text: Ho met with patient and daughter to work on Extra Help/Medicare Savings application and Skycheckin application for Sport Telegramrelto. Completed online Extra Help application and Therapeutic Monitoring ServicesKathie Heyo application completed to see about help with xarelto. Ho faxed Skycheckin application to [employer]. Ho provided patient with happin! Resource guide to help out with food assistance and utility assistance. CNSW Observed: 12/28/2017 Status: COMPLETED Source: [place] 12:00 AM [facility] REPOSITORY Social Work ([facility]) ALBA FLORES ([id number]) 1950 F Date Time Provider Department 12/28/17 MARLENE CAPELLAN (SW) During your visit today, we recorded the following information about you: CECI King 12/28/2017 2:22 PM Signed Ho met with patient and daughter to work on Extra Help/Medicare Savings application and Skycheckin application for xarelto. Completed online Extra Help application and [employer] application completed to see about help with xarelto. Ho faxed Skycheckin application to [employer]. Ho provided patient with [employer] guide to help out with food assistance and utility assistance. Allergies As of Date: 12/28/2017 Noted Allergy Reaction ASA (ASPIRIN) 01/16/2015 8 - GI Upset Date Reviewed: 12/14/2017 Reviewed by: Rosaura Alfaro Warehouse Receiving Supervisor - Fully Assessed Prescriptions as of 12/28/2017 Sig: RIVAROXABAN 20 MG TABLET Take 1 tablet by mouth DAILY * CALCIUM CARBONATE-VITAMIN D3 * Take 1 tablet by mouth once d* DILTIAZEM 60 MG TABLET Take 1 tablet by mouth three * METOPROLOL TARTRATE 50 MG TAB* Take 1 tablet by mouth twice * PANTOPRAZOLE 20 MG TABLET,DEL* Take 1 tablet by mouth once d* NYSTATIN 100,000 UNIT/GRAM TO* Apply 1 application to affect* MENTHOL 0.44 %-ZINC OXIDE 20.* Apply 1 application to affect* ASPIRIN 81 MG CHEWABLE TABLET Take 1 tablet by mouth once d* OXYGEN (HOME THERAPY) 2 L/min by Nasal Cannula rout* LISINOPRIL 20 MG TABLET Take 1.5 tablets by mouth onc* OMEPRAZOLE 20 MG CAPSULE,CECILIA* Take 1 capsule by mouth once * FISH OIL ORAL Take by mouth. Problem List As Of Date 12/28/2017 Noted Resolved HTN (hypertension) [I10] Borderline diabetes [R73.03] INVALID FOR* Endometrial cancer, grade I (HCC) [C54.1] INVALID FOR* Morbid obesity (HCC) [E66.01] INVALID FOR* Osteopenia [M85.80] INVALID FOR* Atrial flutter with rapid ventricular response *INVALID FOR* Encounter Status:Closed by MARLENE JARRETT on 12/28/17 [place] Observed: 12/28/2017 Status: COMPLETED Source: [place] 12:00 AM [facility] REPOSITORY Patient Outreach ([facility]) ALBA FLORES Lamont ([id number]) 1950 F Date Time Provider Department 12/28/17 RIN DELCID (RN) FAMPWS During your visit today, we recorded the following information about you: Rin Delcid RN 12/28/2017 4:06 PM Addendum PRIMARY CARE COORDINATION INTAKE Provider Action/FYI: Pt has moderate pitting edema in LE Pt reports SOB with ambulation, normal resp resume in 1-2 minutes Wearing oxygen. SMOKES IN BASEMENT OF PT'S HOME, family has told him not to smoke in home. [facility] sleep study showed CECILIA and Dr. King is ordering CPAP TC to Dr. King's office regarding PFT results and possible order for home nebulizer. They will ask [employer] when she is in tomorrow SW assisting patient with multiple financial assistance applications and has given resources for food pantries and meals. Patient identified for Primary Care Coordination from: TCM Active Goals - Current status as of 12/28/2017 at 4:02 PM Most Recent - Address all appropriate HM and disease care gaps - Annual BMP - Blood Pressure < 130/80 132/80 (12/14/2017) - Confirm medication adherence of all prescribed medications and uses them correctly - Demonstrates proper inhaler technique - Improve Breathlessness Score - Tobacco cessation - Understands and follows DASH diet - Uses rescue inhaler at appropriate times - Weight mgmt/activity Health Maintenance Topics with due status: Overdue Topic Date Due BP CONTROLLED (<130/80) 02/26/1966 DTAP,TDAP,TD 02/26/1967 Health Maintenance Topics with due status: Due On Topic Date Due INFLUENZA 12/16/2017 Care Coordination: General Care Coordination (since 09/29/2017) Patient has been identified by name and date of Y Determined High Risk due to High Risk chronic condition; Unplanned Hospitalization in the last 6 months; Polypharmacy ( > 7meds); High Risk medications (anticoagulants, insulin, narcotics, ect.); Advanced/progressive illness; Chronic Symptomatology; Physical limitations; Multiple specialists Chronic High Risk conditions HTN; Other (Enter Comment); COPD (A Flutter with RVR, Morbid Obesity) Assessment completed with Children Living arrangement Spouse Support system 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 Good (Pt DM and smokes) Are there others that you care for? No Type of residence Private residence Home care services No Have you had a safety assessment of your home? No Equipment used at home -- (Is is process of having CPAP ordered) Do you have any assistive devices to help you communicate? No Communication Barriers None Have you been in any hospital and/or ED outside the [facility] in the Past 6 months? Yes (Enter Comment) I am convinced of the importance of my prescription medication Agree completely I worry that my prescription medication will do more harm than good to me Disagree completely I feel financially burdened by my out of pocket expenses for my prescription medication Agree completely Patient is categorized as Medium Risk Experiencing side effects from current medications No Difficulty keeping appointments No Family aware of the patient's advance care planning wishes Yes Mosque or spiritual beliefs that impact treatment No Chronic pain Yes (back pain) Advance Directives discussion was initiated with the pt. The following actions were taken Pt will bring in completed HCPOA Social Determinants: Education (since 09/29/2017) Who is providing Assessment Info? Patient What is the highest level of school you have completed? 9th grade Health Literacy (since 09/29/2017) How often do you need to have someone help you when you read instructions, pamphlets, or other written material from your doctor or pharmacy? 3 How confident are you filling out medical forms by yourself? 2 How best do you like to receive information? Verbal Resource Strain (since 09/29/2017) In the last 12 months, did you ever eat less than you felt you should because there wasn?t enough money for food? Yes In the last 12 months, has your [employer] shut off your service for not paying bills? Yes Are you worried that in the next 2 months, you may not have stable housing? No Do problems getting child, senior, or adult care make it difficult for you to work or study? No In the last 12 months, have you needed to see a doctor but could not because of cost? No Are you afraid you might be hurt in your apartment building or house? No If you answered ?yes? to any of the previous six questions, would you like to receive assistance with any of these needs? Yes (Enter Comments) (pt currently meeting with SW and has been given resources and assisted with applications for assistance) Are any of your needs urgent? Yes (Enter Comments) Depression (since 09/29/2017) Over the past 2 weeks, how often have you felt little interest or pleasure in doing things? Not at all Over the past 2 weeks, how often have you felt down, depressed, or hopeless? Not at all Diet (since 09/29/2017) Diet: -- (1000ml Fluid Restriction) Number of meals per day -- (3) Physical Activity (since 09/29/2017) Physical Activity Yes On average, how many days per week do you engage in moderate to strenuous exercise? 7 days On average, how many minutes per session do you engage in moderate to strenuous physical activity? 10 minutes Tobacco Use (since 09/29/2017) Tobacco Outreach Does not Use Tobacco ( smokes in basement) Alcohol Use (since 09/29/2017) How often do you have a drink containing alcohol? -- (Drinks a beer maybe twice a year) Social Connection and Isolation (since 09/29/2017) Are you now , , , , never or living with a partner? In a typical week, how many times do you talk on the telephone with family, friends, or neighbors? More than 3 times per week How often do you get together with friends or relatives? 2 times per week How often do you attend meeting for clubs, devendra-based organizations, or other social groups? 1 to 4 times per year Intimate Partner Violence (since 09/29/2017) Has there ever been a time that you had safety concerns? No Stress (since 09/29/2017) Do you feel stress - tense, restless, nervous, or anxious, or unable to sleep at night because your mind is troubled all the time - these days? To some extent Food Insecurity (since 09/29/2017) Within the past 12 months, you worried that your food would run out before you got money to buy more. Often true Within the past 12 months, the food you bought just didn't last and you didn't have money to get more. Often true Transportation Needs (since 09/29/2017) In the past 12 months, has lack of transportation kept you from medical appointments or from getting medications? No In the past 12 months, has lack of transportation kept you from meetings, work, or getting things needed for daily living? No Transportation means: Family Activities of Daily Living: Patients can perform the following activities without help: (since 09/29/2017) Dressing No Bathing No Doing laundry Yes Climbing a flight of stairs Yes Walking briskly Yes Instrumental activities of daily living (since 09/29/2017) Do you drive a car? No Do you need help from others to take care of things inside the house, for example: laundry, house cleaning, preparing meals? Yes Did you have the help you needed? Yes Do you need help from others with errands outside the house, for example: shopping for groceries or clothes, going medical appointments? Yes Did you have the help you needed? Yes Fall Risk: Fall Risk (since 09/29/2017) One or more falls in the last year: No Any near falls in the last year? No Advised to use a cane or walker to get around safely: Yes Feels unsteady when walking: No Steadies self on furniture while walking at home: Yes Worried about falling: No Needs to push with hands when rising from a chair: Yes Has trouble stepping up onto a curb: Yes Often has to mills to the toilet: No Has lost some feeling in feet: No Takes medicine that makes him/her feel lightheaded or more tired than usual: No Takes medicine to sleep or improve mood: No Fall risk factors: Problems with heart rate or rhythm Rin Delcid RN Allergies As of Date: 12/28/2017 Noted Allergy Reaction ASA (ASPIRIN) 01/16/2015 8 - GI Upset Date Reviewed: 12/14/2017 Reviewed by: Rosaura Alfaro Warehouse Receiving Supervisor - Fully Assessed Reason for Visit: Sign Wirer [facility] Follow Up [3610] Prescriptions as of 12/28/2017 Sig: RIVAROXABAN 20 MG TABLET Take 1 tablet by mouth DAILY * CALCIUM CARBONATE-VITAMIN D3 * Take 1 tablet by mouth once d* DILTIAZEM 60 MG TABLET Take 1 tablet by mouth three * METOPROLOL TARTRATE 50 MG TAB* Take 1 tablet by mouth twice * PANTOPRAZOLE 20 MG TABLET,DEL* Take 1 tablet by mouth once d* NYSTATIN 100,000 UNIT/GRAM TO* Apply 1 application to affect* MENTHOL 0.44 %-ZINC OXIDE 20.* Apply 1 application to affect* ASPIRIN 81 MG CHEWABLE TABLET Take 1 tablet by mouth once d* OXYGEN (HOME THERAPY) 2 L/min by Nasal Cannula rout* LISINOPRIL 20 MG TABLET Take 1.5 tablets by mouth onc* OMEPRAZOLE 20 MG CAPSULE,CECILIA* Take 1 capsule by mouth once * FISH OIL ORAL Take by mouth. Problem List As Of Date 12/28/2017 Noted Resolved HTN (hypertension) [I10] Borderline diabetes [R73.03] INVALID FOR* Endometrial cancer, grade I (HCC) [C54.1] INVALID FOR* Morbid obesity (HCC) [E66.01] INVALID FOR* Osteopenia [M85.80] INVALID FOR* Atrial flutter with rapid ventricular response *INVALID FOR* Encounter Status:Closed by RIN DELCID on 12/29/17 PROGRESS Observed: 12/21/2017 Status: COMPLETED Source: [place] 4:[address] [facility] REPOSITORY O ID: [id number] Author: Rin Marie) Farhana Service: (none) Author Type: Registered Nurse Type: Progress Notes Filed: 12/21/2017 4:11 PM Note Text: PRIMARY CARE COORDINATION QUICK NOTE Provider Action/FYI TC from Valarie at Dr. King's office, they don't have PFT results back yet but when they come back she will discuss if home nebulizer is appropriate for pt with MD or CREW FOREMAN. Patient identified by name and date . Rin Delcid RN December 21, 2017 4:10 PM PULMONARY FUNCTION Observed: 12/21/2017 Status: F Source: [place] REPORT COMP 3:04 PM [facility] REPOSITORY [facility] Pulmonary Services/Neurology [facility] [place] [address] MR#: [id number] Acct: [id number] Name: ALBA FLORES Rep #: [id number] : 1950 67 From: Marshall Newman MD Referring Dr: Esther Arce CREW FOREMAN Status: REG CLI Ordering Dr: Date: Location: [facility] Sex: F C COMPLETE PULMONARY FUNCTION TEST INTERPRETATION Brief HPI: Patient is a 67 year old female, currently under the care of Esther Arce, who presents to [facility] for complete pulmonary function tests secondary to diagnosis of dyspnea. Respiratory therapist reports good effort and reproducible results. Interpretation: Forced expiration spirometry shows a severe large airways obstructive ventilatory defect with an FEV1 of 39% predicted. There is no significant bronchodilator response by ATS criteria. Spirograms are of good quality and plateau slowly, indicating slowly emptying areas of the lungs. The respiratory flow volume loop shows decreased expiratory flow rates at all lung volumes consistent with airway obstruction. Lung volumes by body plethysmography show a decreased total lung capacity at 2.76 L, 60% predicted. All other lung volumes are reduced symmetrically. Diffusion capacity by carbon monoxide is decreased at 40% predicted. The airway resistance is elevated. No previous pulmonary function tests were available for review. Impression: Irreversible severe mixed ventilatory defect with a symmetric reduction diffusing capacity. 12/21/17 1504 <Electronically signed by Marshall Newman MD> Date Marshall Newman MD CC: Marshall Newman MD; Esther Spears MD Date Dictated: 12/21/17 1501 Date Transcribed: 12/21/17 1501 Acid Mixer: MERARI Signed PROGRESS Observed: 12/21/2017 Status: COMPLETED Source: [place] 2:[address] [facility] REPOSITORY O ID: [id number] Author: Rin (Rn) Farhana Service: (none) Author Type: Registered Nurse Type: Progress Notes Filed: 12/21/2017 2:28 PM Note Text: TRANSITION CARE MANAGEMENT (TCM) FOLLOW-UP NOTE Provider Action/FYI TC to Dr. King's office, left message asking if home nebulizer would be appropriate for pt since breathing is much improved since nebulizer tx today. Patient identified by name and date of : YES Spoke to patient and left message for nurse at Dr. King's office Summary: Had sleep study last night per Dr. King Had PFT following sleep study and states she feels significantly better since she had nebulizer treatment. Yesterday noted SOB, anxiety with lying down due to dyspnea, wheeze, and cough-expectorating large amt of clear mucous. O2 @ 2.5L continuously Since PFT treatment states she is breathing much easier, no wheezing, slight cough, no anxiety/dyspnea with lying down and ambulating in home without SOB States she is taking Xarelto every other day and baby aspirin on the other days. Instructed she needs to take Xarelto every day and SW is working at getting medication assistance for patient, verbalized understanding. Asked for refill on omeprazole, instructed pantoprazole is being taken in place of omeprazole for her stomach, verbalized understanding. Event Staff plan for next outreach: Will follow up one week Signature Rin Delcid RN December 21, 2017 [facility] Observed: 12/21/2017 Status: COMPLETED Source: [place] 12:00 AM [facility] REPOSITORY Patient Outreach (FAMPWS) ALBA FLORES ([id number]) 1950 F Date Time Provider Department 12/21/17 RIN DELCID (LETICIA) FAMPWS During your visit today, we recorded the following information about you: Rin Delcid RN 12/21/2017 2:28 PM Signed TRANSITION CARE MANAGEMENT (TCM) FOLLOW-UP NOTE Provider Action/LUDWIG TC to Dr. King's office, left message asking if home nebulizer would be appropriate for pt since breathing is much improved since nebulizer tx today. Patient identified by name and date of : YES Spoke to patient and left message for nurse at Dr. King's office Summary: Had sleep study last night per Dr. King Had PFT following sleep study and states she feels significantly better since she had nebulizer treatment. Yesterday noted SOB, anxiety with lying down due to dyspnea, wheeze, and cough-expectorating large amt of clear mucous. O2 @ 2.5L continuously Since PFT treatment states she is breathing much easier, no wheezing, slight cough, no anxiety/dyspnea with lying down and ambulating in home without SOB States she is taking Xarelto every other day and baby aspirin on the other days. Instructed she needs to take Xarelto every day and SW is working at getting medication assistance for patient, verbalized understanding. Asked for refill on omeprazole, instructed pantoprazole is being taken in place of omeprazole for her stomach, verbalized understanding. Event Staff plan for next outreach: Will follow up one week Signature Rin Delcid RN December 21, 2017 Rin Delcid RN 12/21/2017 4:11 PM Signed PRIMARY CARE COORDINATION QUICK NOTE Provider Action/LUDWIG WAGNER from Valarie at Dr. King's office, they don't have PFT results back yet but when they come back she will discuss if home nebulizer is appropriate for pt with MD or CREW FOREMAN. Patient identified by name and date . Rin Delcid RN December 21, 2017 4:10 PM Allergies As of Date: 12/21/2017 Noted Allergy Reaction ASA (ASPIRIN) 01/16/2015 8 - GI Upset Date Reviewed: 12/14/2017 Reviewed by: Rosaura Alfaro Warehouse Receiving Supervisor - Fully Assessed Reason for Visit: Sign [facility] Hospital Follow Up [0731] Cmt: MAKENZIE F/U #1 D/C 12/08 [facility] Reason For Visit History Recorded Prescriptions as of 12/21/2017 Sig: RIVAROXABAN 20 MG TABLET Take 1 tablet by mouth DAILY * CALCIUM CARBONATE-VITAMIN D3 * Take 1 tablet by mouth once d* DILTIAZEM 60 MG TABLET Take 1 tablet by mouth three * METOPROLOL TARTRATE 50 MG TAB* Take 1 tablet by mouth twice * PANTOPRAZOLE 20 MG TABLET,DEL* Take 1 tablet by mouth once d* NYSTATIN 100,000 UNIT/GRAM TO* Apply 1 application to affect* MENTHOL 0.44 %-ZINC OXIDE 20.* Apply 1 application to affect* ASPIRIN 81 MG CHEWABLE TABLET Take 1 tablet by mouth once d* OXYGEN (HOME THERAPY) 2 L/min by Nasal Cannula rout* LISINOPRIL 20 MG TABLET Take 1.5 tablets by mouth onc* OMEPRAZOLE 20 MG CAPSULE,CECILIA* Take 1 capsule by mouth once * FISH OIL ORAL Take by mouth. Problem List As Of Date 12/21/2017 Noted Resolved HTN (hypertension) [I10] Borderline diabetes [R73.03] INVALID FOR* Endometrial cancer, grade I (HCC) [C54.1] INVALID FOR* Morbid obesity (HCC) [E66.01] INVALID FOR* Osteopenia [M85.80] INVALID FOR* Atrial flutter with rapid ventricular response *INVALID FOR* Encounter Status:Closed by RIN DELCID on 12/21/17 PROGRESS Observed: 12/14/2017 Status: COMPLETED Source: [place] 10:32 AM [facility] REPOSITORY HNO ID: [id number] Author: Marlene (Ho) Marilia Service: (none) Author Type: Linen Clerk Type: Progress Notes Filed: 12/14/2017 10:35 AM Note Text: Ho met with patient to discuss help with Xarelto cost. Ho also discussed Extra Help and Medicare Savings programs. DESIRAE Prescott printed off free 30 day voucher for xarelto and gave patient prescription to take to pharmacy to see if she can receive medication at no cost for 30 day. Patient will call tomorrow to see about setting up appt next , December 21 to work on Medicare Savings/Extra Help application. Patient will also bring [employer] application back to for help with xarelto cost. CNOV Observed: 12/14/2017 Status: COMPLETED Source: [place] 9:40 AM [facility] REPOSITORY Office Visit (FAMPWS) ALBA FLORES ([id number]) 1950 F Date Time Provider Department 12/14/17 9:40 AM GENIE SHIN) KALI During your visit today, we recorded the following information about you: Pulse Respiration Blood pressure Weight 122/minute 14/minute 132/80 158.3 kg Genie Shin APRN.CNP 12/14/2017 2:27 PM Signed Transitional Care Management Progress Note The patients TCM visit was performed within the 7 days of discharge. Patient's Date of discharge: 12/08/17 Date of initial coordinator contact after discharge: 11/27/17 Discharge diagnosis: A flutter with RVR, healthcare associated bacterial pneumonia, EKATERINA, chest pain. Medication review completed Yes Rosaura Alfaro Cma Provider Documentation: In follow-up of hospitalization, Alba Flores is a 67 year old female with the chief complaint of difficulty breathing. Wasn't feeling good and was having a hard time breathing. Refers that the next day, she went in to see the PCP. [facility] was called and went to the hospital. She was admitted on 11/14 and Discharged to TCU on 11/26/17. She was discharged to home on 12/08/17. She was diagnosed with: #1 acute hypoxic and hypercapnic respiratory failure. - Attributed to pneumonia. Admitted to ICU and intubated and remained on mechanical ventilation X 4 days. She was discharged on O2 at 2L during day and BiPAP at night. #2 Haemophilus influenza healthcare associated pneumonia. - Completed 5 days of IV Rocephin. Blood culture no growth in 5 days. No antibiotics on discharge. #3 new onset atrial flutter with RVR. - Failed DC cardioversion X 3. She would return to SR, but only briefly, and then returned to A flutter with RVR. She was treated with IV amiodarone. She was started on Cardizem and metoprolol and her heart rate stabilized. She was discharged on Xarelto for anticoagulation. Patient could not afford this, so she has been taking a daily baby ASA. She reports she goes to [facility] on 01/07 to again try to fix the a flutter again. Refers will be there overnight. She is unsure exactly why she is going. ? 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 #4 metabolic encephalopathy. - CT of brain showed no acute findings. Thought to be secondary to pneumonia and respiratory failure. Resolved. #5 acute kidney injury. - secondary to infection. Kidney function is back to normal with IV therapy. She was discharged to TCU for rehabilitation, strengthening. On discharge, was advised to get sleep study. She is scheduled for this on 12/20/17. She is not currently using any home services. I have reviewed the patient?s last hospital course including diagnostic testing performed during this hospitalization, their discharge medications, and my assessment and plan with the patient and any family members present at today?s visit. PAST MEDICAL HISTORY: Reviewed and updated ALLERGIES: Reviewed and updated MEDICATIONS: Reviewed and updated SOCIAL HISTORY: Reviewed and updated FAMILY HISTORY: Reviewed and updated REVIEW OF SYSTEMS: REVIEW OF SYSTEMS GENERAL: No weight loss, malaise or fevers/chills. + fatigue. HEENT: Negative for frequent or significant headaches, No changes in hearing or vision. NECK: Negative for lumps, goiter, pain and significant neck swelling RESPIRATORY: + SOB with exertion. + cough. CARDIOVASCULAR: Negative for chest pain,or palpitations. + orthopnea -- sleeps in recliner. + 1-+2 leg swelling. GI: No nausea, vomiting, or diarrhea/constipation. No hematochezia/melena. No heartburn or reflux symptoms. : No history of dysuria, frequency or incontinence MUSCULOSKELETAL: Negative for joint pain or swelling. SKIN: Negative for lesions, rash, and itching ENDOCRINE: Negative for cold or heat intolerance, polyuria, polydipsia and goiter NEURO: No history of headaches, syncope, paralysis, seizures or tremors PHYSICAL EXAMINATION BP 132/80 Pulse 122 Resp 14 Wt 349 lb (158.3kg) SpO2 95% General appearance: well appearing, alert, in no acute distress and well-hydrated, well nourished, motor and sensory appear to be normal Lungs: clear to auscultation, no wheezing or rhonchi Heart: Positive findings: irregular rhythm Abdomen: Normal abdominal exam Extremities: bilateral legs wrapped in toña wraps. Some discomfort to the right calf. No redness, no increased warmth. Neg carlos's. 1. I have reviewed the patient record including associated test results during the last hospitalization Yes 2. I have reviewed Lab test Yes 3. I have reviewed Radiology test Yes 4. I reviewed assessment/plan with the patient/family member Yes ASSESSMENT/PLAN: 1. Atrial flutter with rapid ventricular response (HCC) - ICD9: 427.32, ICD10: I48.92 (primary diagnosis) Rate controlled. Continue current meds. Follow-up with cardiology as scheduled. She hasn't been able to afford [employer]. [facility] [employer] here and is going to help patient sign up for programs. We also printed out a 30-day voucher and script for her to take to the pharmacy. Follow-up with cardiology as scheduled. - RIVAROXABAN 20 MG TABLET 2. Pain of right lower extremity - ICD9: 729.5, ICD10: M79.604 With swelling and a flutter and not well anticoagulated -- will go ahead and get u/s of BLE. - US LEG VEIN DVT DELMAR VAS LAB 3. Hypertension, unspecified type - ICD9: 401.9, ICD10: I10 - good control - Continue current medication(s) - Goal of BP <130/80 4. SOB (shortness of breath) - ICD9: 786.05, ICD10: R06.02 Continue home O2. Get sleep study. 5. Bacterial pneumonia - ICD9: 482.9, ICD10: J15.9 Resolved. Discussed treatment plan and patient voices understanding. Patient's questions answered appropriately. Medications and potential side effects were discussed and patient voices understanding. Recheck in a week. Return to the office as scheduled or as needed for worsening/no improvement. Genie Shin APRN.DAWSON December 14, 2017 9:37 AM Genie Shin APRN.CNP 12/14/2017 10:23 AM Signed 1. Recheck in a week. 2. Try to metal pickling equipment operator the xeralto with the coupon and script. 3. Get ultrasound of the legs. 4. If you develop chest pain, shortness of breath, difficulty breathing, etc then go to the ER via 911. Referring Provider: RYAN CAT CHI [[id number]] Allergies As of Date: 12/14/2017 Noted Allergy Reaction ASA (ASPIRIN) 01/16/2015 8 - GI Upset Date Reviewed: 12/14/2017 Reviewed by: Rosaura Alfaro Warehouse Receiving Supervisor - Fully Assessed Reason for Visit: Hospital Follow Up [177] Primary Visit Diagnosis:Atrial flutter with rapid ventricular response (HCC) [I48.92] Other Visit Diagnoses:Pain of right lower extremity [M79.604] Hypertension, unspecified type [I10] SOB (shortness of breath) [R06.02] Bacterial pneumonia [J15.9] Order(s):US LEG VEIN DVT DELMAR VAS LAB [[id number]] Order #: [id number] FUTURE rivaroxaban (XARELTO) 20 mg tabletTake 1 tablet by mouth DAILY AT 6 PM.Disp: 30 tabletRfl: 0 Prescriptions as of 12/14/2017 Sig: RIVAROXABAN 20 MG TABLET Take 1 tablet by mouth DAILY * CALCIUM CARBONATE-VITAMIN D3 * Take 1 tablet by mouth once d* DILTIAZEM 60 MG TABLET Take 1 tablet by mouth three * METOPROLOL TARTRATE 50 MG TAB* Take 1 tablet by mouth twice * PANTOPRAZOLE 20 MG TABLET,DEL* Take 1 tablet by mouth once d* NYSTATIN 100,000 UNIT/GRAM TO* Apply 1 application to affect* LORAZEPAM 0.5 MG TABLET Take 1 tablet by mouth every * MENTHOL 0.44 %-ZINC OXIDE 20.* Apply 1 application to affect* ASPIRIN 81 MG CHEWABLE TABLET Take 1 tablet by mouth once d* OXYGEN (HOME THERAPY) 2 L/min by Nasal Cannula rout* LISINOPRIL 20 MG TABLET Take 1.5 tablets by mouth onc* OMEPRAZOLE 20 MG CAPSULE,CECILIA* Take 1 capsule by mouth once * FISH OIL ORAL Take by mouth. Problem List As Of Date 12/14/2017 Noted Resolved HTN (hypertension) [I10] Borderline diabetes [R73.03] INVALID FOR* Endometrial cancer, grade I (HCC) [C54.1] INVALID FOR* Morbid obesity (HCC) [E66.01] INVALID FOR* Osteopenia [M85.80] INVALID FOR* Atrial flutter with rapid ventricular response *INVALID FOR* Other instructions from your clinician: 1. Recheck in a week. 2. Try to metal pickling equipment operator the xeralto with the coupon and script. 3. Get ultrasound of the legs. 4. If you develop chest pain, shortness of breath, difficulty breathing, etc then go to the ER via 911. Prescriptions ordered this encounter Disp Refills Start End RIVAROXABAN 20 MG TABLET 30 t* 0 12/14/2017 Class: Print RX Route: ORAL Sig: Take 1 tablet by mouth DAILY AT 6 PM. Medications Discontinued During This Encounter rivaroxaban (XARELTO) 20 mg tablet 12/11/2017 12/14/2017 Class: Med Update Route: ORAL Sig: Take 1 tablet by mouth DAILY AT 6 PM. Disc: Reason for discontinue is not on file. Follow-up and Disposition History Recorded Encounter Status:Closed by GENIE SHIN CNP on 12/14/17 PROGRESS Observed: 12/14/2017 Status: COMPLETED Source: [place] 9:37 AM [facility] REPOSITORY HNO ID: [id number] Author: Genie Shin Service: (none) Author Type: Nurse Practitioner Type: Progress Notes Filed: 12/14/2017 2:27 PM Note Text: Transitional Care Management Progress Note The patients TCM visit was performed within the 7 days of discharge. Patient's Date of discharge: 12/08/17 Date of initial coordinator contact after discharge: 11/27/17 Discharge diagnosis: A flutter with RVR, healthcare associated bacterial pneumonia, EKATERINA, chest pain. Medication review completed Yes Rosaura Alfaro [facility] Provider Documentation: In follow-up of hospitalization, Alba Flores is a 67 year old female with the chief complaint of difficulty breathing. Wasn't feeling good and was having a hard time breathing. Refers that the next day, she went in to see the PCP. [facility] was called and went to the hospital. She was admitted on 11/14 and Discharged to TCU on 11/26/17. She was discharged to home on 12/08/17. She was diagnosed with: #1 acute hypoxic and hypercapnic respiratory failure. - Attributed to pneumonia. Admitted to ICU and intubated and remained on mechanical ventilation X 4 days. She was discharged on O2 at 2L during day and BiPAP at night. #2 Haemophilus influenza healthcare associated pneumonia. - Completed 5 days of IV Rocephin. Blood culture no growth in 5 days. No antibiotics on discharge. #3 new onset atrial flutter with RVR. - Failed DC cardioversion X 3. She would return to SR, but only briefly, and then returned to A flutter with RVR. She was treated with IV amiodarone. She was started on Cardizem and metoprolol and her heart rate stabilized. She was discharged on Xarelto for anticoagulation. Patient could not afford this, so she has been taking a daily baby ASA. She reports she goes to [facility] on 01/07 to again try to fix the a flutter again. Refers will be there overnight. She is unsure exactly why she is going. ? 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 #4 metabolic encephalopathy. - CT of brain showed no acute findings. Thought to be secondary to pneumonia and respiratory failure. Resolved. #5 acute kidney injury. - secondary to infection. Kidney function is back to normal with IV therapy. She was discharged to TCU for rehabilitation, strengthening. On discharge, was advised to get sleep study. She is scheduled for this on 12/20/17. She is not currently using any home services. I have reviewed the patient?s last hospital course including diagnostic testing performed during this hospitalization, their discharge medications, and my assessment and plan with the patient and any family members present at today?s visit. PAST MEDICAL HISTORY: Reviewed and updated ALLERGIES: Reviewed and updated MEDICATIONS: Reviewed and updated SOCIAL HISTORY: Reviewed and updated FAMILY HISTORY: Reviewed and updated REVIEW OF SYSTEMS: REVIEW OF SYSTEMS GENERAL: No weight loss, malaise or fevers/chills. + fatigue. HEENT: Negative for frequent or significant headaches, No changes in hearing or vision. NECK: Negative for lumps, goiter, pain and significant neck swelling RESPIRATORY: + SOB with exertion. + cough. CARDIOVASCULAR: Negative for chest pain,or palpitations. + orthopnea -- sleeps in recliner. + 1-+2 leg swelling. GI: No nausea, vomiting, or diarrhea/constipation. No hematochezia/melena. No heartburn or reflux symptoms. : No history of dysuria, frequency or incontinence MUSCULOSKELETAL: Negative for joint pain or swelling. SKIN: Negative for lesions, rash, and itching ENDOCRINE: Negative for cold or heat intolerance, polyuria, polydipsia and goiter NEURO: No history of headaches, syncope, paralysis, seizures or tremors PHYSICAL EXAMINATION BP 132/80 Pulse 122 Resp 14 Wt 349 lb (158.3kg) SpO2 95% General appearance: well appearing, alert, in no acute distress and well-hydrated, well nourished, motor and sensory appear to be normal Lungs: clear to auscultation, no wheezing or rhonchi Heart: Positive findings: irregular rhythm Abdomen: Normal abdominal exam Extremities: bilateral legs wrapped in toña wraps. Some discomfort to the right calf. No redness, no increased warmth. Neg carlos's. 1. I have reviewed the patient record including associated test results during the last hospitalization Yes 2. I have reviewed Lab test Yes 3. I have reviewed Radiology test Yes 4. I reviewed assessment/plan with the patient/family member Yes ASSESSMENT/PLAN: 1. Atrial flutter with rapid ventricular response (HCC) - ICD9: 427.32, ICD10: I48.92 (primary diagnosis) Rate controlled. Continue current meds. Follow-up with cardiology as scheduled. She hasn't been able to afford xeralto. Manager [facility] here and is going to help patient sign up for programs. We also printed out a 30-day voucher and script for her to take to the pharmacy. Follow-up with cardiology as scheduled. - RIVAROXABAN 20 MG TABLET 2. Pain of right lower extremity - ICD9: 729.5, ICD10: M79.604 With swelling and a flutter and not well anticoagulated -- will go ahead and get u/s of BLE. - US LEG VEIN DVT DELMAR VAS LAB 3. Hypertension, unspecified type - ICD9: 401.9, ICD10: I10 - good control - Continue current medication(s) - Goal of BP <130/80 4. SOB (shortness of breath) - ICD9: 786.05, ICD10: R06.02 Continue home O2. Get sleep study. 5. Bacterial pneumonia - ICD9: 482.9, ICD10: J15.9 Resolved. Discussed treatment plan and patient voices understanding. Patient's questions answered appropriately. Medications and potential side effects were discussed and patient voices understanding. Recheck in a week. Return to the office as scheduled or as needed for worsening/no improvement. Genie Shin APRN.FACTORY MACHINE COMPUTER OPERATOR December 14, 2017 9:37 AM CNSW Observed: 12/14/2017 Status: COMPLETED Source: [place] 12:00 AM [facility] REPOSITORY Social Work (NEYMARWST) ALBA FLORES ([id number]) 1950 F Date Time Provider Department 12/14/17 MARLENE CAPELLAN) MAXWELL During your visit today, we recorded the following information about you: CECI King 12/14/2017 10:35 AM Signed Ho met with patient to discuss help with Xarelto cost. Ho also discussed Extra Help and Medicare Savings programs. DESIRAE Prescott printed off free 30 day voucher for xarelto and gave patient prescription to take to pharmacy to see if she can receive medication at no cost for 30 day. Patient will call tomorrow to see about setting up appt next , December 21 to work on Medicare Savings/Extra Help application. Patient will also bring [employer] application back to for help with xarelto cost. Allergies As of Date: 12/14/2017 Noted Allergy Reaction ASA (ASPIRIN) 01/16/2015 8 - GI Upset Date Reviewed: 12/14/2017 Reviewed by: Rosaura Alfaro Warehouse Receiving Supervisor - Fully Assessed Prescriptions as of 12/14/2017 Sig: RIVAROXABAN 20 MG TABLET Take 1 tablet by mouth DAILY * CALCIUM CARBONATE-VITAMIN D3 * Take 1 tablet by mouth once d* DILTIAZEM 60 MG TABLET Take 1 tablet by mouth three * METOPROLOL TARTRATE 50 MG TAB* Take 1 tablet by mouth twice * PANTOPRAZOLE 20 MG TABLET,DEL* Take 1 tablet by mouth once d* NYSTATIN 100,000 UNIT/GRAM TO* Apply 1 application to affect* LORAZEPAM 0.5 MG TABLET Take 1 tablet by mouth every * MENTHOL 0.44 %-ZINC OXIDE 20.* Apply 1 application to affect* ASPIRIN 81 MG CHEWABLE TABLET Take 1 tablet by mouth once d* OXYGEN (HOME THERAPY) 2 L/min by Nasal Cannula rout* LISINOPRIL 20 MG TABLET Take 1.5 tablets by mouth onc* OMEPRAZOLE 20 MG CAPSULE,CECILIA* Take 1 capsule by mouth once * FISH OIL ORAL Take by mouth. Problem List As Of Date 12/14/2017 Noted Resolved HTN (hypertension) [I10] Borderline diabetes [R73.03] INVALID FOR* Endometrial cancer, grade I (HCC) [C54.1] INVALID FOR* Morbid obesity (HCC) [E66.01] INVALID FOR* Osteopenia [M85.80] INVALID FOR* Encounter Status:Closed by MARLENE JARRETT on 12/14/17 PROGRESS Observed: 12/11/2017 Status: COMPLETED Source: [place] 4:[address] [facility] [facility] REPOSITORY HNO ID: [id number] Author: Crissy Easton Ma Service: (none) Author Type: (none) Type: Progress Notes Filed: 12/15/2017 3:29 PM Note Text: The following prescriptions have been approved and faxed to [facility] [place]: Signed Prescriptions Disp Refills calcium carbonate-vitamin D3 500-100 mg-unit chewable tablet Sig: Take 1 tablet by mouth once daily. diltiazem (CARDIZEM) 60 mg tablet Sig: Take 1 tablet by mouth three times daily. metoprolol tartrate, short acting, (LOPRESSOR) 50 mg tablet 60 tablet Sig: Take 1 tablet by mouth twice daily. pantoprazole DR (PROTONIX) 20 mg tablet Sig: Take 1 tablet by mouth once daily. nystatin (NYSTOP) powder Sig: Apply 1 application to affected area three times daily. LORazepam (ATIVAN) 0.5 mg tab 14 tablet 0 Sig: Take 1 tablet by mouth every 6 hours as needed (Anxiety) for up to 14 doses. MICHEAL Class: C-IV Menthol-Zinc Oxide (CALMOSEPTINE) 0.44-20.6 % Sig: Apply 1 application to affected area twice daily. rivaroxaban (XARELTO) 20 mg tablet Sig: Take 1 tablet by mouth DAILY AT 6 PM. aspirin 81 mg chewable tablet Sig: Take 1 tablet by mouth once daily. Patient is taking daily since she can't afford Xarelto OXYGEN, HOME THERAPY, Si L/min by Nasal Cannula route as directed. Crissy Easton Ma PROGRESS Observed: 12/11/2017 Status: COMPLETED Source: [place] 3:[address] [facility] REPOSITORY HNO ID: [id number] Author: Rin (Rn) Farhana Service: (none) Author Type: Registered Nurse Type: Progress Notes Filed: 12/11/2017 3:21 PM Note Text: TRANSITION CARE MANAGEMENT (TCM) INITIAL CONTACT Provider Action/FYI: PLEASE FILE MEDICATION UPDATES AND SW AND LORAZEPAM ORDERS Pt taking a baby ASA daily because she can't afford her Xarelto- SW consult pended for medication assistance Pt states she lost her lorazepam script-order pended for your approval Pt has Sleep Study scheduled for 12/20 Will bring list of f/u doctors appointments Initial contact with patient post discharge, spoke to patient and Marlene SHI. Patient identified by name and . TRANSITION CARE MANAGEMENT: Date of Outreach: 12/11/2017 Outreach Attempt 1: Contact Made Date of Discharge 12/08/2017 Some recent data might be hidden SUMMARY: -Pt discharged from [facility] TCU on 12/08. -Follow up appointment on 12/14. -Medication review done with patient. -Admitted for: #1 acute hypoxic and hypercapnic respiratory failure. #2 Haemophilus influenza healthcare associated pneumonia. #3 new onset atrial flutter with RVR. #4 metabolic encephalopathy. #5 acute kidney injury. Shortness of breath (Acute) Chest pain (Acute) CONCERNS: Pt on O2@2L continuously SOB with ambulation, normal respirations resume after 1-2 min rest Occasional non-productive cough No palpitations or funny heartbeats. Pt scheduled for Sleep Study on 12/20 NEW MEDICATIONS: Lorazepam [Ativan] 0.5 mg PO Q6H PRN PRN #14 tab PRN Reason: ANXIETY Diltiazem [Cardizem] 60 mg PO Q8 #90 tab Pantoprazole Sodium [Protonix] 20 mg PO DAILY #30 tab Rivaroxaban [Xarelto] 20 mg PO DAILY@1800 #30 tab Metoprolol Tartrate [Lopressor (beta maeve)] 50 mg PO BID #60 tab MEDS HELD/DISCONTINUED: omeprazole (PRILOSEC) 20 mg Take 1 capsule by mouth once daily. lisinopril (ZESTRIL, PRINIVIL) 20 mg Take 1.5 tablets by mouth once daily. BRIEF HOSPITAL COURSE: Discharge from TCU on 12/08 copied from [facility] P21: Hospitalized for atrial flutter requiring cardioversion x 3, acute respiratory failure requiring intubation secondary to H. Flu pneumonia, complicated by acute kidney injury, admitted to TCU with debility, here for rehabilitation, strengthening, prior to discharge home with family. Resident noted to have daytime somnolence, fatigue, nighttime hypoxia, snoring, and was positive on STOP screening for sleep apnea. Recommend sleep study. Discharge home with family. Sleep study as outpatient. Discharge Summary from [facility] PCU on 11/26 copied from P21: This is a 67 years old female patient admitted because of shortness of breath and chest pain, found to have healthcare associated pneumonia complicated by acute hypoxic and hypercarbic respiratory failure and she developed atrial flutter with RVR status post failed cardioversion ?3. #1 acute hypoxic and hypercapnic respiratory failure: Attributed to pneumonia. Patient was admitted to ICU, intubated and remained on mechanical ventilation. She was extubated after 4 days and post extubation, she remained stable from a respiratory standpoint. Upon discharge to TCU, she was discharged on oxygen at 2 L during daytime and BiPAP during nighttime, plan to follow-up with pulmonology as outpatient. #2 Haemophilus influenza healthcare associated pneumonia: Completed 5 days of IV Rocephin. She remained afebrile for more than 72 hours. Her sputum culture revealed Haemophilus influenza. Blood culture showed no growth in 5 days. Urine culture revealed Enterobacter cloacae and Klebsiella pneumoniae, sensitivity reviewed. Pneumococcal and Legionella antigen were negative. She completed the course of IV Rocephin, no antibiotics prescribed upon discharge. #3 new onset atrial flutter with RVR: Status post failed DC cardioversion x3. Patient underwent cardioversion ?3 and she converted back to sinus rhythm but only for short time and then she went back into atrial flutter with RVR again and again. She was treated with IV amiodarone drip as well. Lastly, she was started on Cardizem and metoprolol and her heart rate stabilized. She was started on Xarelto for anticoagulation. 2D echocardiogram revealed ejection fraction of 55%. Discharged to TCU on Cardizem 60 mg p.o. every 8 hours, metoprolol 25 mg p.o. every 8 hours, discharged on Xarelto for anticoagulation, plan to follow- up with cardiology as outpatient. #4 encephalopathy: Likely metabolic secondary to pneumonia and respiratory failure. CT scan brain showed no acute findings. Resolved. #5 acute kidney injury: Secondary to infection. Kidney function is back to normal with IV fluid therapy. Patient discharged to TCU in a stable medical condition, discharged on metoprolol and Cardizem for rate control for atrial flutter, discharged on Xarelto for anticoagulation, she completed 5 days of IV Rocephin for pneumonia, discharged on DuoNeb every 6 hours, lisinopril discontinued, plan to follow-up with PCP in 1-2 weeks, follow-up with pulmonology according to Dr. Newman, follow-up with cardiology according to Dr. Hernandez. Rin Delcid RN December 11, 2017 3:15 PM PULMONARY VISIT REPORT Observed: 12/11/2017 Status: F Source: [place] 12:58 PM [facility] REPOSITORY [facility] [address] [place] [address] OFFICE VISIT Date of Service: 12/11/17 MR#: [id number] Acct: [id number] Name: ALBA FLORES Rep #: [id number] : 1950 Provider: Esther Arce Age/Sex: 67/F Location: [facility] [place].[facility] Status: Signed Assessment AND Plan 1. CECILIA (obstructive sleep apnea) G47.33 Plan Lengthy discussion about the pathophysiology of sleep apnea, the risks of untreated sleep apnea and the benefits of treatment. The patient has been ordered a split-night study, given that we have likely identified obstructive sleep apnea during hospitalization, and would like to treat her as soon as possible. Given her respiratory failure she would also likely benefit from BiPAP versus CPAP. Test results pending, plan to follow-up with Dr. King in 3 months, at which time anticipate the patient will be on treatment for approximately 4-6 weeks. Instructed her that initially the goal will be for her to wear the device at least 4 hours nightly, and ultimately the device should be worn any time spent sleeping (including naps). The patient conveys understanding at this point seems very motivated. Orders Orders: 2. Shortness of breath R06.02 Plan Plan to evaluate her shortness of breath with a pulmonary function test to identify and possibly quantify any obstructive ventilatory defects versus restrictive. It will help us determine if any inhalers would be appropriate. No change in maintenance medications until test results can be reviewed. Plan to evaluate her exertional hypoxia with a pulmonary stress test, the patient has been educated that this will help us determine what amount of oxygen is necessary when she is walking. She conveys understanding and is agreeable to testing. Follow-up with Dr. King in 3 months, at which time test results to be reviewed. Orders Orders: Plan Detail Follow Up 3 Months (DMB) [facility] Hospital FU: Chief Complaint: Shortness of breath on exertion HPI Comments Details: This is a 67 year old F, currently under the care of Sanchez Spears, here to follow up after a recent hospitalization at [facility], from November 14 - November 26, 2017, followed by a 2 week stay in the transitional care unit for atrial flutter with rapid ventricular response, healthcare associated Haemophilus influenza pneumonia . The hospital stay was complicated by temporary support on ventilator. 25 pages of hospital documentation was reviewed, and found to be significant for chest x-ray completed on November 14 showing no increased markings at the lung bases suggestive linear atelectasis and/or scarring, CTA of the chest completed on November 15 showed bilateral pleural effusions with bibasilar infiltrate and/or atelectasis. Chest x-ray on November 17 showed bibasilar patchy infiltrates. Chest x-ray on November 17 showed endotracheal tube and feeding tube position, bilateral infiltrates or edema and small effusions. Brain CT completed on November 17 showed chronic involutional changes of the brain, paranasal sinuses appear within normal limits. Chest x-ray completed on November 18 showed bilateral infiltrates or edema and pleural effusions are worsening. An echocardiogram confirmed an EF of 55% with RVSP at 35 mmHg. She was then discharged from care unit on DuoNeb's, antibiotics. Today, she presents the office in a wheelchair, wearing nasal cannula oxygen and accompanied by her sister. She believes that overall she has returned to her baseline. She continues to experience shortness of breath on exertion. She has begun some mild walking in her home, she would like to now how much walking would be acceptable. She is using 2 L of nasal cannula oxygen continuously. She has been using her daughter's CPAP, she reports that she had a good response to the BiPAP in the hospital and tolerate sleeping with it all night. She continues to experience lower extremity edema, mild improvement. She is adamant that she is trying to lose weight. She does have a cough that is occasionally productive of white sputum. She denies any wheezing, chest tightness, chest congestion. She previously had chest pain and palpitations but this has since resolved. See complete review of systems. Intake Vital Signs12/11/17 Height 5 ft 4 in 12/11/17 Weight: 249 lb 12/11/17 Body Mass Index (BMI) 42.7 Intake Visit Reasons[place] [facility] [place]: YAMEL Accompanied by: Family / Other Allergies aspirin [ASA] Adverse Reaction (Verified 12/11/17 11:21) stomach burning and sick to stomach propoxyphene HCl [From Darvon] Adverse Reaction (Verified 12/11/17 11:21) i get dizzy and pass out Medications Calcium Carbonate/Vitamin D3 [Calcium 500+D Tablet Chew] 1 ea PO DAILY 11/14/17 [History Confirmed 12/11/17] acetaminophen 500 mg tablet 1,000 mg PO Q6H PRN tab 12/01/17 [History Confirmed 12/11/17] Diltiazem [Cardizem] 60 mg PO Q8 #90 tab 12/05/17 [Rx Confirmed 12/11/17] Lorazepam [Ativan] 0.5 mg PO Q6H PRN PRN #14 tab 12/05/17 [Rx Confirmed 12/11/17] Menthol/Lanolin/Calamine/Znox [Calmoseptine Ointment] 1 applic TOPICAL 0600,2200 tube 12/05/17 [Rx Confirmed 12/11/17] Metoprolol Tartrate [Lopressor (beta maeve)] 50 mg PO BID #60 tab 12/05/17 [Rx Confirmed 12/11/17] Nystatin Powder [Mycostatin Powder] 1 applic TOPICAL TID bottle 12/05/17 [Rx Confirmed 12/11/17] Pantoprazole Sodium [Protonix] 20 mg PO DAILY #30 tab 12/05/17 [Rx Confirmed 12/11/17] Rivaroxaban [Xarelto] 20 mg PO DAILY@1800 #30 tab 12/05/17 [Rx Confirmed 12/11/17] Apixaban [Eliquis] 5 mg PO BID #60 tab 12/06/17 [Rx Confirmed 12/11/17] PFSH Medical History Shortness of breath (Acute) Atrial flutter with rapid ventricular response (Acute) Healthcare associated bacterial pneumonia (Acute) Acute kidney injury (Acute) Chest pain (Acute) Chronic obstructive pulmonary disease (Chronic) Acute respiratory failure (Acute) Healthcare-associated pneumonia (Acute) Atrial flutter (Acute) Morbid obesity (Chronic) HTN (hypertension) (Chronic) GERD (gastroesophageal reflux disease) (Chronic) CECILIA (obstructive sleep apnea) (Acute) Surgical History History of total hysterectomy (Resolved) Family History Mother Heart disease Father Heart disease Social History Smoking Status: Former smoker how long ago did patient quit smokin, 1ppd second hand exposure: Yes alcohol intake: never substance use type: does not use Review of Systems Const CONSTITUTIONAL: Positive daytime sleepiness, sleeping in chair, fatigue and weight loss; negative anorexia, body ache, chills, fever(s), night sweats, oral thrush, stops breathing during sleep, weight loss, weight gain, frequent colds, seasonal allergies, other, headache(s) or orthopnea EETM Ear Nose Throat Mouth: Positive hearing normal; negative hard of hearing, hoarseness, dry mouth in morning, change in vision, itchy eyes, eye pain, swallowing Difficulty, ear pain, nose bleed, headache(s), mouth pain, nasal congestion, nasal discharge, post nasal drip, sinus pain, sinus pressure, sore throat or other Cardio Cardiovascular: Positive edema Location: lower extremity; negative chest pain, chest pain at rest, chest pain with activity, irregular heart rhythm, shortness of breath when lying down, palpitations, murmur or other Resp Respiratory: Positive as per HPI, shortness of breath shortness of breath: Positive with activity and lying down, wheezing, cough cough: Positive productive color: Positive thick and clear and snoring; negative pain with cough, chest congestion, chest tightness, pain on inspiration, inhalers, increase use of rescue inhalers, apnea or other Gastro Gastrointestional: Negative bloody stools, change in appetite, difficulty swallowing, reflux, hematemesis, melena stool, loose stool, constipation or other Genitourinary: Negative blood in urine, nocturia, pain with urination or other Musc Musculoskeletal: Negative body pain, back pain, neck pain or other Skin/Breast Skin/Breast: Negative dry skin, itching, rash, unusual bruising, breast lump or other Neuro Neurological: Negative restless legs, confusion, weakness or other Psych Psychocological: Negative abnormal sleep pattern, anxiety, thoughts of hurting self/others, hopelessness or other Lymph Lymphatic: Negative easy bleeding, easy bruising, swollen lymph nodes or other Exam Const Constitutional: Positive conversant, cooperative, in no acute respiratory distress, healthy appearing, well developed, well nourished, good hygiene, obese and wearing supplemental oxygen Head Head: Positive normocephalic and atraumatic; negative cyanosis of lips/distal nose Eyes Eye: Positive clear conjunctiva; negative nystagmus or scleral abnormality Ears Ear: Positive hearing normal and external ears normal; negative hard of hearing Nose Nose: Positive external nose normal and no nasal discharge; negative epistaxis Mouth Mouth: Positive oral mucosae normal, no lesions, good dentition and crowded posterior oropharynx; negative post nasal drip, malodorous breath or oral thrush present Mallampati Score: III: Mallampati Score Neck Neck: Positive normal visual inspection, full ROM, trachea midline, thick neck and female neck greater than 37 cm (15 in); negative lymphadenopathy, JVD or tender Chest Wall Chest: Positive normal inspection of the chest and symmetric chest movement; negative increased A/P diameter Resp lung sounds: Positive clear to auscultation, good air exchange, wheeze present on forced exhalation, normal expiratory time and normal respiratory effort; negative diminished, wheezes, rhonchi, rales or dullness to percussion Cardio Cardiac: Negative murmur, regular rate or regular rhythm GI GI: Positive normal to inspection and obese; negative distended Genitourinary: Positive deferred Musc Musculoskeletal: Positive ROM normal and in a wheelchair; negative kyphosis or scoliosis Skin Pulmonary Skin Exam: Positive intact; negative rash, lesion or ulcers Pulses Pulse: Yes Pedal pulses present: Extremities Extremities: Yes capillary refill normal, No clubbing, No cyanosis, Yes edema Location: lower extremity location: Bilateral pitting +3 Neuro Neurologic: Yes conversant, Yes no focal neuro deficits, Yes normal concentration, Yes understands questions, Yes cooperative, Yes normal cognition, Yes normal coordination Lymph Lymphatic: No lymphadenopathy, No tenderness, No cervical adenopathy Psych Appearance: Positive grossly normal, eye contact and well kempt Mental Status: Positive mental status grossly normal Mood: Positive anxious mood Affect: Positive anxious affect Coding Level of Care Code Off vis,est,level 4 Diagnoses ECCILIA (obstructive sleep apnea) G47.33 Shortness of breath R06.02 12/11/17 1258 <Electronically signed by Esther CARTER> Date Esther CARTER Cosigner Signature: Date (if applicable) CC: Sanchez Spears MD [facility] Observed: 12/11/2017 Status: COMPLETED Source: [place] 12:00 AM [facility] REPOSITORY Patient Outreach (FAMPWS) SANDRAALBA F ([id number]) 1950 F Date Time Provider Department 12/11/17 RIN DELCID (RN) FAMPWS During your visit today, we recorded the following information about you: Rin Delcid RN 12/11/2017 3:21 PM Signed TRANSITION CARE MANAGEMENT (TCM) INITIAL CONTACT Provider Action/FYI: PLEASE FILE MEDICATION UPDATES AND SW AND LORAZEPAM ORDERS Pt taking a baby ASA daily because she can't afford her Xarelto- SW consult pended for medication assistance Pt states she lost her lorazepam script-order pended for your approval Pt has Sleep Study scheduled for 12/20 Will bring list of f/u doctors appointments Initial contact with patient post discharge, spoke to patient and Marlene SHI. Patient identified by name and . TRANSITION CARE MANAGEMENT: Date of Outreach: 12/11/2017 Outreach Attempt 1: Contact Made Date of Discharge 12/08/2017 Some recent data might be hidden SUMMARY: -Pt discharged from [facility] TCU on 12/08. -Follow up appointment on 12/14. -Medication review done with patient. -Admitted for: #1 acute hypoxic and hypercapnic respiratory failure. #2 Haemophilus influenza healthcare associated pneumonia. #3 new onset atrial flutter with RVR. #4 metabolic encephalopathy. #5 acute kidney injury. Shortness of breath (Acute) Chest pain (Acute) CONCERNS: Pt on O2@2L continuously SOB with ambulation, normal respirations resume after 1-2 min rest Occasional non-productive cough No palpitations or funny heartbeats. Pt scheduled for Sleep Study on 12/20 NEW MEDICATIONS: Lorazepam [Ativan] 0.5 mg PO Q6H PRN PRN #14 tab PRN Reason: ANXIETY Diltiazem [Cardizem] 60 mg PO Q8 #90 tab Pantoprazole Sodium [Protonix] 20 mg PO DAILY #30 tab Rivaroxaban [Xarelto] 20 mg PO DAILY@1800 #30 tab Metoprolol Tartrate [Lopressor (beta maeve)] 50 mg PO BID #60 tab MEDS HELD/DISCONTINUED: omeprazole (PRILOSEC) 20 mg Take 1 capsule by mouth once daily. lisinopril (ZESTRIL, PRINIVIL) 20 mg Take 1.5 tablets by mouth once daily. BRIEF HOSPITAL COURSE: Discharge from TCU on 12/08 copied from [facility]: Hospitalized for atrial flutter requiring cardioversion x 3, acute respiratory failure requiring intubation secondary to H. Flu pneumonia, complicated by acute kidney injury, admitted to TCU with debility, here for rehabilitation, strengthening, prior to discharge home with family. Resident noted to have daytime somnolence, fatigue, nighttime hypoxia, snoring, and was positive on STOP screening for sleep apnea. Recommend sleep study. Discharge home with family. Sleep study as outpatient. Discharge Summary from [facility] on 11[facility] This is a 67 years old female patient admitted because of shortness of breath and chest pain, found to have healthcare associated pneumonia complicated by acute hypoxic and hypercarbic respiratory failure and she developed atrial flutter with RVR status post failed cardioversion ?3. #1 acute hypoxic and hypercapnic respiratory failure: Attributed to pneumonia. Patient was admitted to ICU, intubated and remained on mechanical ventilation. She was extubated after 4 days and post extubation, she remained stable from a respiratory standpoint. Upon discharge to TCU, she was discharged on oxygen at 2 L during daytime and BiPAP during nighttime, plan to follow- up with pulmonology as outpatient. #2 Haemophilus influenza healthcare associated pneumonia: Completed 5 days of IV Rocephin. She remained afebrile for more than 72 hours. Her sputum culture revealed Haemophilus influenza. Blood culture showed no growth in 5 days. Urine culture revealed Enterobacter cloacae and Klebsiella pneumoniae, sensitivity reviewed. Pneumococcal and Legionella antigen were negative. She completed the course of IV Rocephin, no antibiotics prescribed upon discharge. #3 new onset atrial flutter with RVR: Status post failed DC cardioversion x3. Patient underwent cardioversion ?3 and she converted back to sinus rhythm but only for short time and then she went back into atrial flutter with RVR again and again. She was treated with IV amiodarone drip as well. Lastly, she was started on Cardizem and metoprolol and her heart rate stabilized. She was started on Xarelto for anticoagulation. 2D echocardiogram revealed ejection fraction of 55%. Discharged to TCU on Cardizem 60 mg p.o. every 8 hours, metoprolol 25 mg p.o. every 8 hours, discharged on Xarelto for anticoagulation, plan to follow-up with cardiology as outpatient. #4 encephalopathy: Likely metabolic secondary to pneumonia and respiratory failure. CT scan brain showed no acute findings. Resolved. #5 acute kidney injury: Secondary to infection. Kidney function is back to normal with IV fluid therapy. Patient discharged to TCU in a stable medical condition, discharged on metoprolol and Cardizem for rate control for atrial flutter, discharged on Xarelto for anticoagulation, she completed 5 days of IV Rocephin for pneumonia, discharged on DuoNeb every 6 hours, lisinopril discontinued, plan to follow-up with PCP in 1-2 weeks, follow-up with pulmonology according to Dr. Newman, follow-up with cardiology according to Dr. Hernandez. Rin Delcid RN December 11, 2017 3:15 PM Crissy Easton Ma 12/15/2017 3:29 PM Signed The following prescriptions have been approved and faxed to [facility] [place]: Signed Prescriptions Disp Refills calcium carbonate-vitamin D3 500-100 mg-unit chewable tablet Sig: Take 1 tablet by mouth once daily. diltiazem (CARDIZEM) 60 mg tablet Sig: Take 1 tablet by mouth three times daily. metoprolol tartrate, short acting, (LOPRESSOR) 50 mg tablet 60 tablet Sig: Take 1 tablet by mouth twice daily. pantoprazole DR (PROTONIX) 20 mg tablet Sig: Take 1 tablet by mouth once daily. nystatin (NYSTOP) powder Sig: Apply 1 application to affected area three times daily. LORazepam (ATIVAN) 0.5 mg tab 14 tablet 0 Sig: Take 1 tablet by mouth every 6 hours as needed (Anxiety) for up to 14 doses. MICHEAL Class: C-IV Menthol-Zinc Oxide (CALMOSEPTINE) 0.44-20.6 % Sig: Apply 1 application to affected area twice daily. rivaroxaban (XARELTO) 20 mg tablet Sig: Take 1 tablet by mouth DAILY AT 6 PM. aspirin 81 mg chewable tablet Sig: Take 1 tablet by mouth once daily. Patient is taking daily since she can't afford Xarelto OXYGEN, HOME THERAPY, Si L/min by Nasal Cannula route as directed. Crissy Easton Ma Allergies As of Date: 12/11/2017 Noted Allergy Reaction ASA (ASPIRIN) 01/16/2015 8 - GI Upset Date Reviewed: 11/14/2017 Reviewed by: Tanna Boss Ma - Fully Assessed Reason for Visit: Transition Of Care [4074] Primary Visit Diagnosis:Atrial flutter with rapid ventricular response (HCC) [I48.92] Other Visit Diagnoses:Pneumonia due to Haemophilus influenzae, unspecified laterality, unspecified part of lung (HCC) [J14] Hypertension, unspecified type [I10] Anxiety [F41.9] Back abrasion, unspecified laterality, initial encounter [S20.419A] Gastroesophageal reflux disease, esophagitis presence not specified [K21.9] Osteopenia, unspecified location [M85.80] Order(s):calcium carbonate-vitamin D3 500-100 mg-unit chewable tabletTake 1 tablet by mouth once daily.Disp: Rfl: diltiazem (CARDIZEM) 60 mg tabletTake 1 tablet by mouth three times daily.Disp: Rfl: metoprolol tartrate, short acting, (LOPRESSOR) 50 mg tabletTake 1 tablet by mouth twice daily.Disp: 60 tabletRfl: pantoprazole DR (PROTONIX) 20 mg tabletTake 1 tablet by mouth once daily.Disp: Rfl: nystatin (NYSTOP) powderApply 1 application to affected area three times daily.Disp: Rfl: LORazepam (ATIVAN) 0.5 mg tabTake 1 tablet by mouth every 6 hours as needed (Anxiety) for up to 14 doses.Disp: 14 tabletRfl: 0 Menthol-Zinc Oxide (CALMOSEPTINE) 0.44-20.6 %Apply 1 application to affected area twice daily.Disp: Rfl: aspirin 81 mg chewable tabletTake 1 tablet by mouth once daily. Patient is taking daily since she can't afford XareltoDisp: Rfl: PRIMARY CARE SOCIAL WORK CONSULT [[id number]] Order #: [id number]: 1 OXYGEN, HOME THERAPY,2 L/min by Nasal Cannula route as directed.Disp: Rfl: Prescriptions as of 12/11/2017 Sig: CALCIUM CARBONATE-VITAMIN D3 * Take 1 tablet by mouth once d* DILTIAZEM 60 MG TABLET Take 1 tablet by mouth three * METOPROLOL TARTRATE 50 MG TAB* Take 1 tablet by mouth twice * PANTOPRAZOLE 20 MG TABLET,DEL* Take 1 tablet by mouth once d* NYSTATIN 100,000 UNIT/GRAM TO* Apply 1 application to affect* LORAZEPAM 0.5 MG TABLET Take 1 tablet by mouth every * MENTHOL 0.44 %-ZINC OXIDE 20.* Apply 1 application to affect* ASPIRIN 81 MG CHEWABLE TABLET Take 1 tablet by mouth once d* OXYGEN (HOME THERAPY) 2 L/min by Nasal Cannula rout* X RIVAROXABAN 20 MG TABLET Take 1 tablet by mouth DAILY * LISINOPRIL 20 MG TABLET Take 1.5 tablets by mouth onc* OMEPRAZOLE 20 MG CAPSULE,CECILIA* Take 1 capsule by mouth once * FISH OIL ORAL Take by mouth. Problem List As Of Date 12/11/2017 Noted Resolved HTN (hypertension) [I10] Borderline diabetes [R73.03] INVALID FOR* Endometrial cancer, grade I (HCC) [C54.1] INVALID FOR* Morbid obesity (HCC) [E66.01] INVALID FOR* Osteopenia [M85.80] INVALID FOR* Prescriptions ordered this encounter Disp Refills Start End CALCIUM CARBONATE-VITAMIN D3 500 MG-* 12/11/2017 Class: Med Update Route: ORAL Sig: Take 1 tablet by mouth once daily. DILTIAZEM 60 MG TABLET 12/11/2017 Class: Med Update Route: ORAL Sig: Take 1 tablet by mouth three times daily. METOPROLOL TARTRATE 50 MG TABLET 60 t* 12/11/2017 Class: Med Update Route: ORAL Sig: Take 1 tablet by mouth twice daily. PANTOPRAZOLE 20 MG TABLET,DELAYED RE* 12/11/2017 Class: Med Update Route: ORAL Sig: Take 1 tablet by mouth once daily. NYSTATIN 100,000 UNIT/GRAM TOPICAL P* 12/11/2017 Class: Med Update Route: TOPICAL Sig: Apply 1 application to affected area three times daily. LORAZEPAM 0.5 MG TABLET 14 t* 0 12/11/2017 12/15/2017 Class: Print RX Route: ORAL Sig: Take 1 tablet by mouth every 6 hours as needed (Anxiety) for up to 14 doses. MENTHOL 0.44 %-ZINC OXIDE 20.6 % TOP* 12/11/2017 Class: Med Update Route: TOPICAL Sig: Apply 1 application to affected area twice daily. RIVAROXABAN 20 MG TABLET 12/11/2017 12/14/2017 Class: Med Update Route: ORAL Sig: Take 1 tablet by mouth DAILY AT 6 PM. ASPIRIN 81 MG CHEWABLE TABLET 12/11/2017 Class: Med Update Route: ORAL Sig: Take 1 tablet by mouth once daily. Patient is taking daily since she can't afford Xarelto OXYGEN (HOME THERAPY) 12/11/2017 Class: Med Update Route: Nasal Cannul Si L/min by Nasal Cannula route as directed. Medications Discontinued During This Encounter CALCIUM CARBONATE/VITAMIN D3 (CALCIU* 12/11/2017 Class: Historical Med Route: ORAL Sig: Take by mouth. Disc: Erroneous entry Encounter Status:Closed by RIN DELCID on 12/15/17 DISCHARGE SUMMARY Observed: 12/07/2017 Status: F Source: [place] 6:10 PM [facility] REPOSITORY [facility] Medical Records Department [address] [place] [address] Discharge Summary 12/05/172237 MR#: [id number] Acct: [id number] Name: ALBA FLORES Rep #: [id number] : 1950 67 From: Ryan Cat MD PCP: Sanchez Spears MD Status: ADM IN Location: [address] ADDENDUM by Ryan Cat MD on 12/07/17 at 1810 Code Visit Resident continues to have oxygen requirement due to slow recovery from acute respiratory failure requiring intubation secondary to H. Flu pneumonia. 12/07/17 1810 <Electronically signed by Ryan Cat MD> Date Ryan Cat MD cc: Ryan Cat MD; Sanchez Spears MD * Signed Discharge Date and Diagnosis - Problem List Patient Problems: Active and Suspected Problems (Last Updated 12/01/17 @ 11:36 by Lisbet Stephens) Shortness of breath (Acute) Atrial flutter with rapid ventricular response (Acute) Healthcare associated bacterial pneumonia (Acute) Acute kidney injury (Acute) Chest pain (Acute) Date of Admission: 11/26/17 Date of Discharge: 12/08/17 - Primary Discharge Diagnosis Active and Suspected Problems (Last Updated 12/01/17 @ 11:36 by Lisbet Stephens) Shortness of breath (Acute) Atrial flutter with rapid ventricular response (Acute) Healthcare associated bacterial pneumonia (Acute) Acute kidney injury (Acute) Chest pain (Acute) - Secondary Discharge Diagnosis Chronic Problems (Last Updated 12/01/17 @ 11:36 by Lisbet Stephens) Chronic obstructive pulmonary disease (Chronic) Morbid obesity (Chronic) HTN (hypertension) (Chronic) GERD (gastroesophageal reflux disease) (Chronic) Hospital Course and Treatment Imaging Results: 11/29/17 16:22 Diet: Cardiac: Calorie-Controlled Food consistency:: Regular Liquid Consistency:: Regular/Thin Dietary Modifications:: Fluid Restricted Diet Is pt able to select menu?: Yes Diet Comments: low sodium diet, How many daily calories?: 1800 calorie Labs (Last 48 Hours) WBC 6.0 RBC 4.82 Hgb 14.1 Hct 46.1 MCV 95.6 MCH 29.3 MCHC 30.6 L Operations: None Procedures: None Summary of Care Provided: The patient is a 67 year old Female with below past medical history hospitalized for atrial flutter requiring cardioversion x 3, acute respiratory failure requiring intubation secondary to H. Flu pneumonia, complicated by acute kidney injury, admitted to TCU with debility, here for rehabilitation, strengthening, prior to discharge home with family. Resident noted to have daytime somnolence, fatigue, nighttime hypoxia, snoring, and was positive on STOP screening for sleep apnea. Recommend sleep study. Discharge home with family. Sleep study as outpatient. Discharge Diet: No Restrictions Discharge Activity: Return to Normal Activity, May Shower, Use Walker Weight Bearing Status: Weight bearing as tolerated Call your doctor if you observe: Fever of 101 or Higher, Inability to urinate, Inability to have a bowel movement, Shortness of breath, Chest pain, Uncontrolled pain Home Medications: Medications to take at Discharge Calcium Carbonate/Vitamin D3 [Calcium 500+D Tablet Chew] 1 ea PO DAILY 11/14/17 Diltiazem [Cardizem] 60 mg PO Q8 11/26/17 acetaminophen 500 mg tablet 1,000 mg PO Q6H PRN tab 12/01/17 metoprolol tartrate 25 mg tablet 50 mg PO BID tab 12/01/17 pantoprazole 20 mg tablet,delayed release 20 mg PO QDAY 12/01/17 Acetaminophen [Tylenol] 1,000 mg PO Q8H PRN PRN tablet 12/05/17 Diltiazem [Cardizem] 60 mg PO Q8 #90 tab 12/05/17 Lorazepam [Ativan] 0.5 mg PO Q6H PRN PRN #14 tab 12/05/17 Menthol/Lanolin/Calamine/Znox [Calmoseptine Ointment] 1 applic TOPICAL 0600,2200 tube 12/05/17 Metoprolol Tartrate [Lopressor (beta maeve)] 50 mg PO BID #60 tab 12/05/17 Nystatin Powder [Mycostatin Powder] 1 applic TOPICAL TID bottle 12/05/17 Pantoprazole Sodium [Protonix] 20 mg PO DAILY #30 tab 12/05/17 Rivaroxaban [Xarelto] 20 mg PO DAILY@1800 #30 tab 12/05/17 Following Prescrptions Were Given to Patient: Lorazepam [Ativan] 0.5 mg PO Q6H PRN PRN #14 tab PRN Reason: ANXIETY Diltiazem [Cardizem] 60 mg PO Q8 #90 tab Pantoprazole Sodium [Protonix] 20 mg PO DAILY #30 tab Rivaroxaban [Xarelto] 20 mg PO DAILY@1800 #30 tab Metoprolol Tartrate [Lopressor (beta maeve)] 50 mg PO BID #60 tab Primary Care Physician: Sanchez Spears MD [Primary Care Provider] - Please follow up with your Primary Care Physician in: 1 week. Please Follow Up With: Lisbet Villagomez PA When: [phone] Please Follow Up With: Dr Marshall Newman When: 2 weeks. Disposition: Home Minutes spent on discharge:: 30 Patient Condition:: Stable Medical Necessity - Tobacco Use Smoking Status: Former smoker Tobacco Use: Non-smoker Meaningful Use Info Meaningful Use Diagnoses (Choose all that apply): None applicable 12/05/17 4781 <Electronically signed by Ryan Cat MD> Date Ryan Cat MD Cosigner Signature (if applicable): Date CC: Ryan Cat MD; Sanchez Spears MD Signed PROGRESS Observed: 12/07/2017 Status: COMPLETED Source: [place] 3:[address] [facility] REPOSITORY HNO ID: [id number] Author: Rin (Rn) Farhana Service: (none) Author Type: Registered Nurse Type: Progress Notes Filed: 12/07/2017 3:08 PM Note Text: PRIMARY CARE COORDINATION QUICK NOTE Provider Action/FYI Noted PCC will call for TCM on 12/11 Patient identified by name and date . Rin Delcid RN December 07, 2017 3:07 PM PROGRESS Observed: 12/06/2017 Status: COMPLETED Source: [place] 12:[address] [facility] REPOSITORY HNO ID: [id number] Author: Cassy Leija Cma Service: (none) Author Type: (none) Type: Progress Notes Filed: 12/07/2017 3:08 PM Note Text: TRANSITION CARE MANAGEMENT (TCM) DISCHARGE FROM POST ACUTE FACILITY POST ACUTE TRANSFER SUMMARY: - Spoke to: Susan DAIGLE at [facility]) - Pt will be discharged Home on Monday12/08/2017 - Records requested (discharge summary from SNF: discharge medication list discharge instructions labs and imaging). Alba will be released from [facility] on Monday12/08/2017. HO Lowery, that I've been speaking with is out of the office today. Spoke with Susan who is covering. PROGRESS Observed: 12/06/2017 Status: COMPLETED Source: [place] 12:[address] [facility] REPOSITORY HNO ID: [id number] Author: Cassy Leija Cma Service: (none) Author Type: (none) Type: Progress Notes Filed: 12/06/2017 12:28 PM Note Text: Patient is being discharged Monday. O2 reading tomorrow. PROGRESS Observed: 12/06/2017 Status: COMPLETED Source: [place] 9:[address] [facility] REPOSITORY HNO ID: [id number] Author: Cassy Leija [facility] Service: (none) Author Type: (none) Type: Progress Notes Filed: 12/06/2017 9:13 AM Note Text: Spoke with HO Davis, (tabby is out today) who states she'll check on her status and get back to me. [place] Observed: 12/06/2017 Status: COMPLETED Source: [place] 12:00 AM [facility] REPOSITORY Patient Outreach ([facility]) SANDRAALBA F ([id number]) 1950 F Date Time Provider Department 12/06/17 RIN DELCID (LETICIA) IN[facility] During your visit today, we recorded the following information about you: Cassy Leija [facility] 12/07/2017 3:08 PM Signed TRANSITION CARE MANAGEMENT (TCM) DISCHARGE FROM POST ACUTE FACILITY POST ACUTE TRANSFER SUMMARY: - Spoke to: Susan DAIGLE at TCU) - Pt will be discharged Home on Monday12/08/2017 - Records requested (discharge summary from SNF: discharge medication list discharge instructions labs and imaging). Alba will be released from TCU on Monday12/08/2017. HO Lowery, that I've been speaking with is out of the office today. Spoke with Susan who is covering. Rin Delcid RN 12/07/2017 3:08 PM Signed PRIMARY CARE COORDINATION QUICK NOTE Provider Action/FYI Noted PCC will call for TCM on 12/11 Patient identified by name and date . Rin Delcid RN December 07, 2017 3:07 PM Allergies As of Date: 12/06/2017 Noted Allergy Reaction ASA (ASPIRIN) 01/16/2015 8 - GI Upset Date Reviewed: 11/14/2017 Reviewed by: Tanna Boss Ma - Fully Assessed Reason for Visit: Transition Of Care [4074] Prescriptions as of 12/06/2017 Sig: LISINOPRIL 20 MG TABLET Take 1.5 tablets by mouth onc* OMEPRAZOLE 20 MG CAPSULE,CECILIA* Take 1 capsule by mouth once * CALCIUM + D ORAL Take by mouth. FISH OIL ORAL Take by mouth. Problem List As Of Date 12/06/2017 Noted Resolved HTN (hypertension) [I10] Borderline diabetes [R73.03] INVALID FOR* Endometrial cancer, grade I (HCC) [C54.1] INVALID FOR* Morbid obesity (HCC) [E66.01] INVALID FOR* Osteopenia [M85.80] INVALID FOR* Encounter Status:Closed by RIN DELCID on 12/07/17 DISCHARGE INSTRUCTION Observed: 12/05/2017 Status: F Source: [place] 10:38 PM [facility] REPOSITORY [facility] Medical Records Department [address] [place] [address] Instructions for Home/Discharge Instructions 12/05/17 1031 MR#: [id number] Acct: [id number] Name: ALBA FLORES Rep #: [id number] : 1950 67 From: Ryan Cat MD PCP: Sanchez Spears MD Status: ADM IN - Discharge Diagnoses Current Active Problems: Current Active and Chronic Problems (Last Updated 12/01/17 @ 11:36 by Lisbet Stephens) Shortness of breath (Acute) Atrial flutter with rapid ventricular response (Acute) Healthcare associated bacterial pneumonia (Acute) Acute kidney injury (Acute) Chest pain (Acute) Chronic obstructive pulmonary disease (Chronic) You will use the following diet at home:: No restrictions, Regular Your food should be the consistency of: Regular Your liquids should be the consistency of: Regular/Thin Discharge Activity: Return to Normal Activity, May Shower, Use Walker Weight Bearing Status: Weight bearing as tolerated Call your doctor if you observe: Fever of 101 or Higher, Inability to urinate, Inability to have a bowel movement, Shortness of breath, Chest pain, Uncontrolled pain Allergies/Adverse Reactions: Allergies aspirin [ASA] Adverse Reaction (Verified 12/01/17 11:28) stomach burning and sick to stomach propoxyphene HCl [From Darvon] Adverse Reaction (Verified 12/01/17 11:28) i get dizzy and pass out Medications to take at Discharge Calcium Carbonate/Vitamin D3 [Calcium 500+D Tablet Chew] 1 ea PO DAILY 11/14/17 Diltiazem [Cardizem] 60 mg PO Q8 11/26/17 acetaminophen 500 mg tablet 1,000 mg PO Q6H PRN tab 12/01/17 metoprolol tartrate 25 mg tablet 50 mg PO BID tab 12/01/17 pantoprazole 20 mg tablet,delayed release 20 mg PO QDAY 12/01/17 Acetaminophen [Tylenol] 1,000 mg PO Q8H PRN PRN tablet 12/05/17 Diltiazem [Cardizem] 60 mg PO Q8 #90 tab 12/05/17 Lorazepam [Ativan] 0.5 mg PO Q6H PRN PRN #14 tab 12/05/17 Menthol/Lanolin/Calamine/Znox [Calmoseptine Ointment] 1 applic TOPICAL 0600,2200 tube 12/05/17 Metoprolol Tartrate [Lopressor (beta maeve)] 50 mg PO BID #60 tab 12/05/17 Nystatin Powder [Mycostatin Powder] 1 applic TOPICAL TID bottle 12/05/17 Pantoprazole Sodium [Protonix] 20 mg PO DAILY #30 tab 12/05/17 Rivaroxaban [Xarelto] 20 mg PO DAILY@1800 #30 tab 12/05/17 The following prescriptions were given: Lorazepam [Ativan] 0.5 mg PO Q6H PRN PRN #14 tab PRN Reason: ANXIETY Diltiazem [Cardizem] 60 mg PO Q8 #90 tab Pantoprazole Sodium [Protonix] 20 mg PO DAILY #30 tab Rivaroxaban [Xarelto] 20 mg PO DAILY@1800 #30 tab Metoprolol Tartrate [Lopressor (beta maeve)] 50 mg PO BID #60 tab Primary Care Physician: Sanchez Spears MD [Primary Care Provider] - Please follow up with your Primary Care Physician in: 1 week. Test Results: Test results from this visit will be discussed in further detail at your follow-up appointment, if applicable. Please Follow Up With: Lisbet Villagomez PA When: [phone] Please Follow Up With: Dr Marshall Newman When: 2 weeks. Proposed Discharge Date: 12/08/17 12/05/172237 <Electronically signed by Ryan Cat MD> Date Ryan Cat MD CC: Sanchez Spears MD CBC W/DIFF, AUTOMATED Collected: 12/04/2017 Status: F Source: [place] 5:06 AM [facility] REPOSITORY TYPE CODE TESTS RESULT OUT OF RANGE REFERENCE UNITS LAB L100.1000 4.4-11.0 K/mm3 Normal WBC 6.0 LAB L100.1200 4.2-5.4 M/mm3 Normal RBC 4.82 LAB L100.1300 12.0-15.0 g/dl Normal HGB 14.1 LAB L100.1400 37-47 % Normal HCT 46.1 LAB L100.1500 81-99 fL Normal MCV 95.6 LAB L100.1600 27.0-32.0 pg Normal MCH 29.3 LAB L100.1700 32-36 g/gl Low MCHC 30.6 LAB L100.1810 11.6-14.6 % Normal RDW CV 14.1 LAB L100.1820 35.1-43.9 fl High RDW SD 48.3 LAB L100.1900 150-450 K/mm3 Normal PLT 157 LAB L100.2000 6.2-12.0 fl Normal MPV 10.6 LAB L100.2100 47-70 % Normal NEUT% 60.3 LAB L100.2200 19-41 % Normal LY% 24.6 LAB L100.2300 0-10 % High MONO% 11.7 LAB L100.2400 0-5 % Normal EO% 3.0 LAB L100.2500 0-1 % Normal BASO% 0.2 LAB L100.2550 0.0-0.9 % Normal IM GRAN % 0.200 Result Comment: IG% - Immature Granulocytes (promyelocytes, myelocytes and metamyelocytes) > 1% indicates that a LEFT SHIFT is Present. LAB L100.2620 2.0-7.7 X10 3/uL Normal Absolute Neut 3.6 LAB L100.2720 0.83-4.51 X10 3/ul Normal Absolute Lymph 1.47 Performed By: #### L100.0100 #### [facility] [place], [address] BASIC METABOLIC Collected: 12/04/2017 Status: F Source: [place] PROFILE (BMP) 5:06 AM [facility] REPOSITORY TYPE CODE TESTS RESULT OUT OF RANGE REFERENCE UNITS LAB L501.0100 74-106 mg/dL Normal GLU 86 Result Comment: Please note revised GLUCOSE reference range effective 2017. LAB L501.1000 7-18 mg/dL Normal BUN 12 LAB L501.1100 0.55-1.02 mg/dL Normal CREAT,SERUM 0.78 Result Comment: The validity of the calculated GFR AND GFRAA in patients over 70 years has not been determined. Clinical correlation is essential. LAB L501.1110 >60 mL/min Normal EST GFR 78 Result Comment: Non- GFR Calc LAB L501.1115 >60 mL/min Normal EST GFR - AA 94 Result Comment: GFR Calc LAB L501.1255 ml/min Normal Estimated CRCL 45.85 LAB L501.1300 10-20 RATIO Normal BUN/CRE 15.4 LAB L501.2200 8.5-10 mg/dL Normal .1 CA 8.6 LAB L501.5300 136-14 mmol/L Normal 5 NA 145 LAB L501.5600 3.5-5. mmol/L Normal 1 K 3.9 LAB L501.5900 98-107 mmol/L Normal CL 106 LAB L501.6100 21.0-3 mmol/L High 2.0 CO2 33.0 LAB L501.6200 5-15 Normal GAP 6 Performed By: #### L500.2500 #### [facility] [address] [place], [place], [address] CARDIOLOGY VISIT Observed: 12/01/2017 Status: F Source: [place] REPORT 3:26 PM [facility] REPOSITORY [facility] [address] [place] [address] OFFICE VISIT Date of Service: 12/01/17 MR#: [id number] Acct: [id number] Name: ALBA FLORES Rep #: [id number] : 1950 Provider: Lee Hernandez MD Age/Sex: 67/F Location: [facility] Status: Signed HPI HPI Details: ALBA FLORES is a 67 F who presents to the office today for for outpatient cardiovascular follow-up. As you recall she was evaluated at [facility] in cardiovascular consultation for concerns of atrial flutter amongst concerns of chest discomfort, shortness of breath, hypertension, GERD, superimposed upon morbid obesity. From a cardiovascular standpoint she underwent noninvasive evaluation. This included laboratory studies as well as a transthoracic echocardiogram. On her transthoracic echocardiogram performed on 11/15/2017 results are as noted below. Interpretation Summary The study was technically difficult. Contrast injection was performed. Mildly dilated left ventricle. Mild global left ventricular systolic dysfunction. The estimated ejection fraction is 45 %. Mild concentric left ventricular hypertrophy. Mild to moderate right ventricular dilatation. Mild global right ventricular systolic dysfunction. The left atrium is mildly enlarged. There is mild mitral annular calcification. Extension of the mitral annular calcification onto the posterior mitral valve leaflet. Trivial mitral valve insufficiency. Mild tricuspid valve insufficiency. Mild focal aortic valve calcification. Trivial pericardial effusion. There are no echocardiographic indications of cardiac tamponade. Right ventricular systolic pressure estimated to be 34 mmHg. Unable to assess diastolic dysfunction. She underwent synchronized biphasic DC cardioversion with 50 J 1 to regain sinus rhythm. She continued evaluation care with attempt to optimize her medical therapy with rate control, anti-coagulant therapy, as well as diuretic therapy. However with diuretic therapy she had decreased blood pressure and increased creatinine level. She was not able to tolerate diuretic therapy. As her clinical course progressed she became lethargic and obtunded. There was concerns of an ongoing underlying pulmonary disease process. She subsequently required mechanical intubation and ventilation. After being extubated she had returned to atrial flutter. Another attempt at synchronized biphasic DC cardioversion was made and was only transiently successful. She was then treated medically with rate control and antiarrhythmic therapy as well as her anticoagulant therapy. She subsequently underwent another synchronized biphasic DC cardioversion which regained sinus rhythm for a period of time. However she subsequently reverted back to atrial flutter and required continued conservative medical management. During her course, based upon her concerns with respect to response to medical management, diuretic therapy, fluctuating renal function, and her pulmonary disease process, she did undergo a follow-up transthoracic echocardiogram to evaluate for any acute findings with respect to her cardiac function, etc. This was on 11/18/2017. The results are as noted below. Interpretation Summary The study was technically difficult. Contrast injection was performed. Mildly dilated left ventricle. Left ventricular systolic function is normal. The estimated ejection fraction is 55 %. Mild concentric left ventricular hypertrophy. Moderately dilated right ventricle. Mild to moderate global right ventricular systolic dysfunction. The left atrium is mildly enlarged. The right atrium is mildly enlarged. There is mild mitral annular calcification. Extension of the mitral annular calcification onto the posterior mitral valve leaflet. Trivial mitral valve insufficiency. Trivial tricuspid valve insufficiency. Trivial pulmonic valve insufficiency. Right ventricular systolic pressure estimated to be 35 mmHg. Transmitral diastolic flow velocities suggest diastolic dysfunction (pseudonormal pattern). She was eventually released to the transitional care unit on conservative medical management. She presents today for further evaluation. She remains in atrial flutter with a controlled ventricular response at this time. She continues on anticoagulant therapy. She denies any ongoing chest discomfort. She remains chronically short of breath and dyspneic on supplemental oxygen therapy. There has been no issues of near syncope or syncope. Unfortunately she remains morbidly obese. She has not been able to undergo additional evaluation of any obvious coronary artery disease either from a noninvasive or invasive standpoint. This is been concerning based upon her underlying acute pulmonary condition as well as unfortunately her obesity and concerns of weight limits for some of the diagnostic laboratory equipment, etc. Intake Vital Signs12/01/17 Height 5 ft 4 in 12/01/17 Weight: 357 lb 12/01/17 Body Mass Index (BMI) 61.2 12/01/17 Blood Pressure 156/78 Intake Visit Reasons: 1 WK S/P [facility] Allergies aspirin [ASA] Adverse Reaction (Verified 12/01/17 11:28) stomach burning and sick to stomach propoxyphene HCl [From Darvon] Adverse Reaction (Verified 12/01/17 11:28) i get dizzy and pass out Medications Calcium Carbonate/Vitamin D3 [Calcium 500+D Tablet Chew] 1 ea PO DAILY 11/14/17 [History Confirmed 12/01/17] Diltiazem [Cardizem] 60 mg PO Q8 11/26/17 [History Confirmed 12/01/17] Ipratropium/Albuterol Sulfate [Duoneb] 3 ml INHALATION Q6H.RT PRN #1 ampul.neb 11/26/17 [Rx Confirmed 12/01/17] Rivaroxaban [Xarelto] 20 mg PO DAILY@1800 11/26/17 [History Confirmed 12/01/17] Senna/Docusate Sodium [Senokot-S] 2 tab PO DAILY PRN PRN #1 tab 11/26/17 [Rx Confirmed 12/01/17] acetaminophen 500 mg tablet 1,000 mg PO Q6H PRN tab 12/01/17 [History Confirmed 12/01/17] metoprolol tartrate 25 mg tablet 50 mg PO BID tab 12/01/17 [History Confirmed 12/01/17] pantoprazole 20 mg tablet,delayed release 20 mg PO QDAY 12/01/17 [History Confirmed 12/01/17] polyethylene glycol 3350 17 gram oral powder packet 17 g PO QDAY 12/01/17 [History Confirmed 12/01/17] [facility] Medical History Shortness of breath (Acute) Atrial flutter with rapid ventricular response (Acute) Healthcare associated bacterial pneumonia (Acute) Acute kidney injury (Acute) Chest pain (Acute) Chronic obstructive pulmonary disease (Chronic) Acute respiratory failure (Acute) Healthcare-associated pneumonia (Acute) Atrial flutter (Acute) Morbid obesity (Chronic) HTN (hypertension) (Chronic) GERD (gastroesophageal reflux disease) (Chronic) CECILIA (obstructive sleep apnea) (Acute) Surgical History History of total hysterectomy (Resolved) Family History Mother Heart disease Father Heart disease Social History Smoking Status: Former smoker alcohol intake: never substance use type: does not use ROS Const Const: Negative for fatigue, weakness, weight gain, weight loss, frequent falls or excessive sweating Eyes Eyes: Negative for change in vision, blurry vision or transient loss of vision ENT ENT: Negative for dizziness or balance problems Cardio Chest Pain: No Palpitations: Yes feels like its: fast, irregular Edema: Right (+1) Muscle aches with walking: None Resp Respiratory: Negative for SOB with activity or SOB at rest Additional Details: Patient with continuous oxygen @ 2L NC. Patient has sleep apnea, wears CPAP @ Night GI GI: Negative vomiting or vomiting blood/hematemesis : Negative for hematuria Musc Musc: Negative for balance problems, muscle aches/ myalgia, muscle weakness or joint pain Skin Skin: Negative non-healing lesions or rash Neuro Neuro: Negative for weakness, blurry vision, dizziness, lightheadedness, frequent falls or orthostatic symptoms Devang Hematologic/Lymphatic: Negative for easy bleeding Endo Endo: Negative for fatigue or excessive sweating Psych Psych: Negative for anxiety or depression Allergy Allergy/Immunology: Negative for hives, Negative for rash Cardiology Exam Const Appearance: cooperative, comfortable, no acute distress and well groomed Nutritional Appearance: obese Orientation: alert, awake and oriented x3 Head Head: normal to inspection, normocephalic and atraumatic Ears: hearing grossly normal bilaterally Nose: external nose normal Face and Sinus: face symmetric Mouth: oral mucosae normal Teeth and gingiva: fair dentition Eyes Eyelids: eyelids normal Conjunctivae: conjunctivae normal Pupils: PERRL EOM: EOM intact bilaterally Neck Neck: normal visual inspection and full ROM Carotids: normal carotid upstroke Chest Chest inspection: normal inspection of the chest and symmetric chest movement Auscultation: Bilateral: Clear to Auscultation Cardio Palpation: normal PMI Rate: regular rate Rhythm: regular rhythm Heart sounds: S1 normal and S2 normal Distant heart tone GI GI: obese, soft and bowel sounds present Neuro General: alert, awake, oriented x3 and moves all extremities Skin Skin: no rashes or lesions noted Extremities Pulses: Normal: Right Radial Pulse, Left Radial Pulse Lower Extremity Edema: +1: Bilateral Psych Psychological: normal affect Assessment AND Plan 1. Atrial flutter with rapid ventricular response I48.92 Plan At the present time she remains in atrial flutter. Her rate is reasonably well-controlled at this time. She remains on rate limiting medication. She remains on anticoagulant therapy. She has undergone 3 synchronized biphasic DC cardioversions while in the hospital. Unfortunately she remains in atrial flutter. At the present time it was felt she should be referred to electrophysiology for consideration for an atrial flutter ablation therapy. This may be beneficial with respect to optimizing her cardiovascular status/pulmonary status. Orders Orders: Referrals: 2. Essential hypertension I10 Plan Her blood pressure is somewhat elevated today. She states it is elevated because she is now in the physician's office. She will continue to be followed in the transitional care unit. She may need further adjustment of antihypertensive therapy. Orders Orders: 3. Chronic obstructive pulmonary disease, unspecified COPD type J44.9 Plan She does have underlying concerns of COPD. She should continue to follow with pulmonology as deemed appropriate. 4. Morbid obesity E66.01 Plan Unfortunately she is morbidly obese. Her family states that her activities and include eating and watching television. They note that she has been reluctant to adjust her diet and increase activity to try and bring her weight under better control. Her obesity does make it challenging for her to go through a variety of noninvasive and/or potentially invasive procedures based upon diagnostic table weight limits, etc. This may or may not become an issue with respect to consideration for an EP evaluation for possible EPS/RFA of her atrial flutter Plan Detail Additional Comments The above was discussed with the patient and her . They were both agreeable to this approach. Thus the patient will be referred to Dr. Ochoa Thornton at [facility] for further electrophysiology consultation, evaluation, and recommendations, etc. Thank you for allowing me to participate in the care of your patient. Please don't hesitate to call if any issues arise. This note was generated using a voice recognition system and there may be incorrect words, spelling or punctuation that were not noted when reviewing the office note prior to saving. Follow Up 6 Months (PFM) Coding Level of Care Code Off vis,est,level 4 Diagnoses Atrial flutter with rapid ventricular response I48.92 Essential hypertension I10 Hypertension type: essential hypertension Chronic obstructive pulmonary disease, unspecified COPD type J44.9 COPD type: unspecified COPD Morbid obesity E66.01 Coding Level of Care Code Off vis,est,level 4 Diagnoses Atrial flutter with rapid ventricular response I48.92 Essential hypertension I10 Hypertension type: essential hypertension Chronic obstructive pulmonary disease, unspecified COPD type J44.9 COPD type: unspecified COPD Morbid obesity E66.01 12/01/17 1526 <Electronically signed by Lee Hernandez MD> Date Lee Hernandez MD Cosigner Signature: Date (if applicable) CC: Ochoa Thornton; Sanchez Spears MD 12 LEAD ELECTROCARDIOGRAM Observed: 12/01/2017 Status: F Source: [place] 2:01 PM [facility] REPOSITORY [facility] Cardiovascular Services [address] [place] [address] 12 Lead EKG 11/28/17 0408 MR#: [id number] Acct: [id number] Name: ALBA FLORES Rep #: [id number] : 1950 67 From: Adryan Yost MD Attending Dr: Ryan Cat MD, Chi Status: ADM IN Ordering Dr: Ryan Cat MD Date: 11/30/17 Location: [facility] Sex: F C Admitted: 11/26/17 Test Reason : SHORTNESS OF BREATH Blood Pressure : / mmHG Vent. Rate : 099 BPM Atrial Rate : 271 BPM P-R Int : 000 ms QRS Dur : 162 ms QT Int : 418 ms P-R-T Axes : 000 261 -41 degrees QTc Int : 536 ms Atrial flutter with variable A-V block Right bundle branch block T wave abnormality, consider inferior ischemia Abnormal ECG When compared with ECG of 24-NOV-2017 15:46, MANUAL COMPARISON REQUIRED, DATA IS UNCONFIRMED Confirmed by ADRYAN YOST MD ([id number]), social media editor JERRICA HUITRON ([id number]) on 12/01/2017 2:01:17 PM Referred By: EMORY Confirmed By:ADRYAN YOST MD 12/01/17 140 Date Adryan Yost MD CC: Ryan Cat MD; Sanchez Spears MD Signed 12 LEAD EKG PERFORMED Observed: 12/01/2017 Status: F Source: [place] [facility] 11:38 AM [facility] REPOSITORY [facility] [address] [place] [address] 12 Lead EKG performed by [facility] 12/01/17 1137 MR#: [id number] Acct: [id number] Name: ALBA FLORES Rep #: [id number] : 1950 67 From: Lee Hernandez MD Attending Dr: Lee Hernandez MD Status: DEP AMB Ordering Dr: Lee Hernandez MD Date: 12/01/17 Location: [facility] Sex: F C Admitted: BMS/12 Lead EKG performed by [facility] ECG Report Interpretation Atrial flutter-fibrillation - occasional ectopic ventricular beat Left axis deviationRight bundle branch blockPossible LAFBABNORMAL Electronically signed on 12/04/2017 at 16:51 by Lee Hernandez Software Version [id number] 12/04/17 1654 Date Lee Hernandez MD CC: Sanchez Spears MD Date Dictated: 12/01/171136 Date Transcribed: 12/01/171136 Acid Mixer: PM Signed PROGRESS Observed: 11/29/2017 Status: COMPLETED Source: [place] 8:[address] [facility] REPOSITORY O ID: [id number] Author: Cassy Leija Cma Service: (none) Author Type: (none) Type: Progress Notes Filed: 11/29/2017 8:21 AM Note Text: Left message for HO Lowery to return call #[phone] [id number] LEAD ELECTROCARDIOGRAM Observed: 11/28/2017 Status: F Source: [place] 1:02 PM [facility] REPOSITORY [facility] Cardiovascular Services [address] [place] [address] 12 Lead EKG 11/24/17 1546 MR#: [id number] Acct: [id number] Name: ALBA FLORES Rep #: [id number] : 1950 67 From: Adryan Yost MD Attending Dr: Emory WALKER,Ryan Martinez Status: ADM IN Ordering Dr: Ryan Cat MD Date: 11/28/17 Location: [facility] Sex: F C Admitted: 11/26/17 Test Reason : DR KATZ Blood Pressure : / mmHG Vent. Rate : 130 BPM Atrial Rate : 131 BPM P-R Int : 088 ms QRS Dur : 176 ms QT Int : 384 ms P-R-T Axes : 000 258 066 degrees QTc Int : 565 ms Sinus tachycardia with short MS Right bundle branch block Abnormal ECG When compared with ECG of 24-NOV-2017 05:56, MANUAL COMPARISON REQUIRED, DATA IS UNCONFIRMED Confirmed by ADRYAN YOST MD ([id number]), social media editor JERRICA HUITRON ([id number]) on 11/28/2017 1:02:15 PM Referred By: LYDIA Confirmed By:ADRYAN YOST MD 11/28/17 1302 Date Adryan Yost MD CC: Ryan Cat MD; Sanchez Spears MD Signed 12 LEAD ELECTROCARDIOGRAM Observed: 11/27/2017 Status: F Source: [place] 3:52 PM [facility] REPOSITORY [facility] Cardiovascular Services [address] [place] [address] 12 Lead EKG 11/23/17 0950 MR#: [id number] Acct: [id number] Name: ALBA FLORES Rep #: [id number] : 1950 67 From: Adryan Yost MD Attending Dr: Billie Maciel Status: DIS IN Ordering Dr: Lee Hernandez MD Date: 11/23/17 Location: [facility] Sex: F C Admitted: 11/14/17 Test Reason : POST CARDIOVERSION Blood Pressure : / mmHG Vent. Rate : 064 BPM Atrial Rate : 064 BPM P-R Int : 230 ms QRS Dur : 178 ms QT Int : 440 ms P-R-T Axes : 046 262 005 degrees QTc Int : 453 ms Sinus rhythm with 1st degree A-V block Right bundle branch block Abnormal ECG When compared with ECG of 21-NOV-2017 22:36, MANUAL COMPARISON REQUIRED, DATA IS UNCONFIRMED Confirmed by ADRYAN YOST MD ([id number]), social media editor JERRICA HUITRON ([id number]) on 11/27/2017 3:52:29 PM Referred By: ANAT Confirmed By:ADRYAN YOST MD 11/27/17 1552 Date Adryan Yost MD CC: Billie Maciel; Lee Hernandez MD; Sanchez pSears MD Signed 12 LEAD ELECTROCARDIOGRAM Observed: 11/27/2017 Status: F Source: [place] 3:51 PM [facility] REPOSITORY [facility] Cardiovascular Services [address] [place] [address] 12 Lead EKG 11/24/17 0556 MR#: [id number] Acct: [id number] Name: ALBA FLORES Rep #: [id number] : 1950 67 From: Adryan Yost MD Attending Dr: Billie Maciel Status: DIS IN Ordering Dr: Marshall Newman MD Date: 11/24/17 Location: [facility] Sex: F C Admitted: 11/14/17 Test Reason : AFLUTTER Blood Pressure : / mmHG Vent. Rate : 125 BPM Atrial Rate : 056 BPM P-R Int : 000 ms QRS Dur : 176 ms QT Int : 404 ms P-R-T Axes : 000 262 047 degrees QTc Int : 583 ms Sinus tachycardia Right bundle branch block Abnormal ECG No previous ECGs available Confirmed by RITIKA WALKER, ADRYAN ([id number]), social media editor JERRICA HUITRON ([id number]) on 11/27/2017 3:50:52 PM Referred By: Confirmed By:ADRYAN YOST MD 11/27/17 1550 Date Adryan Yost MD CC: Marshall Newman MD; Billie Maciel; Sanchez Spears MD Signed PROGRESS Observed: 11/27/2017 Status: COMPLETED Source: [place] 12:11 PM [facility] RE[facility]ITORY HNO ID: [id number] Author: Cassy Leija Cma Service: (none) Author Type: (none) Type: Progress Notes Filed: 11/27/2017 12:12 PM Note Text: I will follow up with TCU mid week this week. Thanks. PROGRESS Observed: 11/27/2017 Status: COMPLETED Source: [place] 10:[address] [facility] REPOSITORY HNO ID: [id number] Author: Rin BuiRn) Farhana Service: (none) Author Type: Registered Nurse Type: Progress Notes Filed: 11/27/2017 10:48 AM Note Text: PRIMARY CARE COORDINATION QUICK NOTE Provider Action/FYI CAROLINA Koroma will monitor patient while she is in TCU. At discharge PCC will do TCM and follow patient Patient identified by name and date . Rin Delcid RN November 27, 2017 10:48 AM PROGRESS Observed: 11/27/2017 Status: COMPLETED Source: [place] 10:36 AM [facility] REPOSITORY [facility] ID: [id number] Author: Rin (Rn) Farhana Service: (none) Author Type: Registered Nurse Type: Progress Notes Filed: 11/27/2017 10:45 AM Note Text: TRANSITION CARE MANAGEMENT (TCM) DISCHARGE TO POST ACUTE FACILITY POST ACUTE TRANSFER SUMMARY: -Pt discharged from [facility] on 11/26/17. -Post Acute Facility Admitted to [facility] TCU -Admitted for: Rehab and Strengthening prior to discharge home with family (1) Shortness of breath (Acute) (2) Atrial flutter with rapid ventricular response (Acute) (3) Healthcare associated bacterial pneumonia (Acute) (4) Acute kidney injury (Acute) (5) Chest pain (Acute) (6) Acute respiratory failure (Acute) (7) Chronic obstructive pulmonary disease (Chronic) (8) Morbid obesity (Chronic) (9) HTN (hypertension) (Chronic) (10) GERD (gastroesophageal reflux disease) (Chronic) The patient is a 67 year old Female with below past medical history presented to [facility] Emergency Department 11/14/2017 with shortness of breath. 11/14/2017 EKG showed atrial flutter, left axis deviation, right bundle branch block. 11/14/2017 Chest X-ray cardiomegaly, bibasilar atelectasis/scarring. Shortness of breath x 2 days, feels winded. Weakness, SVT at PCP's office. Valsalva brought heart rate to 70, but heart rate increased back to 150. Hemoglobin 15.8, Sodium 148, Chloride 111, Glucose 133, Cr 1.21, Troponin 0.017. Adenosine 6MG, 12MG given showing atrial flutter rhythm. Cardizem, Metoprolol given, heart rate 140. Cardizem drip started, titrated upwards, tachycardia persisted. Digoxin given, heart rate 90 to 100. 11/14/2017 Admit to Hospital. Admit to PCU, cycle enzymes. Amiodarone, Cardizem, heparin drips. Plan NEREYDA, cardioversion. IV fluids for dehydration. 11/15/2017 NEREYDA showed mild LV dysfunction. EF 45% Mild segmental RV dysfunction. Patent foramen ovale by bubble study. 11/18/2017 Echo LV systolic function normal. EF 55% Mild concentric left ventricular hypertrophy. Mild to moderate global RV systolic dysfunction. RVSP 35mm HG. Diastolic dysfunction. 11/23/2017 DC cardioversion. Patient required intubation for acute respiratory failure. BiPAP at night. H. Flu HCAP treated with Rocephin IV x 5 days. Urine culture grew E. Cloacae, K. Pneumoniae. Urinary antigens for legionella, s. pneumoniae NEGATIVE. Amiodarone, Coreg, Xarelto for new onset atrial flutter. Acute Kidney Injury resolved with IV fluids. Encephalopathy improved. 11/26/2017 Admit to TCU with debility, here for rehabilitation, strengthening, prior to discharge home with family. Rin Delcid RN November 27, 2017 10:45 AM HISTORY AND PHYSICAL Observed: 11/27/2017 Status: F Source: [place] EXAM 8:24 AM [facility] REPOSITORY [facility] Medical Records Department [address] [place] [address] History and Physical 11/26/17 1355 MR#: [id number] Acct: [id number] Name: ALBA FLORES Rep #: [id number] : 1950 67 From: Ryan Cat MD PCP: Sanchez Spears MD Status: ADM IN Y Location: [place] [id number] Problem List (1) Shortness of breath Status: Acute (2) Atrial flutter with rapid ventricular response Status: Acute (3) Healthcare associated bacterial pneumonia Status: Acute (4) Acute kidney injury Status: Acute (5) Chest pain Status: Acute (6) Chronic obstructive pulmonary disease Status: Chronic (7) Acute respiratory failure Status: Acute Qualifiers: (8) Morbid obesity Status: Chronic (9) HTN (hypertension) Status: Chronic Qualifiers: (10) GERD (gastroesophageal reflux disease) Status: Chronic Qualifiers: History of Present Illness Date of Admission: 11/26/17 Chief Complaint: Here for rehabilitation, strengthening, prior to discharge home with family. The patient is a 67 year old Female with below past medical history presented to [facility] Emergency Department 11/14/2017 with shortness of breath. 11/14/2017 EKG showed atrial flutter, left axis deviation, right bundle branch block. 11/14/2017 Chest X-ray cardiomegaly, bibasilar atelectasis/scarring. Shortness of breath x 2 days, feels winded. Weakness, SVT at primary care provider's office. Valsalva brought heart rate to 70, but heart rate increased back to 150. Hemoglobin 15.8, Sodium 148, Chloride 111, Glucose 133, Cr 1.21, Troponin 0.017. Adenosine 6MG, 12MG given showing atrial flutter rhythm. Cardizem, Metoprolol given, heart rate 140. Cardizem drip started, titrated upwards, tachycardia persisted. Digoxin given, heart rate 90 to 100. 11/14/2017 Admit to Hospital. Admit to PCU, cycle enzymes. Amiodarone, Cardizem, heparin drips. Plan NEREYDA, cardioversion. IV fluids for dehydration. 11/15/2017 NEREYDA showed mild LV dysfunction. EF 45% Mild segmental RV dysfunction. Patent foramen ovale by bubble study. 11/15/2017 DC cardioversion. 11/18/2017 Echo LV systolic function normal. EF 55% Mild concentric left ventricular hypertrophy. Mild to moderate global RV systolic dysfunction. RVSP 35mm HG. Diastolic dysfunction. 11/21/2017 DC cardioversion. 11/23/2017 DC cardioversion. Patient required intubation for acute respiratory failure. BiPAP at night. H. Flu HCAP treated with Rocephin IV x 5 days. Urine culture grew E. Cloacae, K. Pneumoniae. Urinary antigens for legionella, s. pneumoniae NEGATIVE. Amiodarone, Coreg, Xarelto for new onset atrial flutter. Acute Kidney Injury resolved with IV fluids. Encephalopathy improved. 11/26/2017 Admit to TCU with debility, here for rehabilitation, strengthening, prior to discharge home with family. Past Medical History Past Medical History (Chronic Problems): Chronic Problems Chronic obstructive pulmonary disease (Chronic) Morbid obesity (Chronic) HTN (hypertension) (Chronic) GERD (gastroesophageal reflux disease) (Chronic) Allergies aspirin [ASA] Adverse Reaction (Verified 11/14/17 14:34) stomach burning and sick to stomach propoxyphene HCl [From Darvon] Adverse Reaction (Verified 11/14/17 14:34) i get dizzy and pass out Home Medications: Ambulatory Orders Medication Instructions Recorded [place]-3 Fatty Acids/Fish Oil [Fish 1 each PO DAILY 07/02/16 Oil 1,000 mg Capsule] Calcium Carbonate/Vitamin D3 1 each PO DAILY 11/14/17 [Calcium 500+D Tablet Chew] Surgical History: hysterectomy - total Psychiatric History: No pertinent psych hx 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 Lives: With Family Smoking Status: Former smoker Tobacco Use: Non-smoker Alcohol: None Drugs: None - *Family History Maternal History Items: Heart Disease Paternal History Items: Heart Disease Review of Systems Constitutional: Denies: Chills, Fever, Weight Change HEENT: Denies: Head Aches, Sinus Congestion, Sinus Drainage Cardiovascular: Denies: Chest Pain, Palpitations Respiratory: Denies: Cough, Shortness of breath at rest, Sputum production Gastrointestinal: Denies: Abdominal Pain, Nausea, Vomiting Genitourinary: Denies: Dysuria Musculoskeletal: Denies: Joint Pain, Joint Tenderness Skin: Denies: Rash, Wounds Neurological: Denies: Numbness, Tingling, Focal weakness Psychiatric: Denies: Anxiety, Depression, Homicidal Ideations, Suicidal Ideations Hematologic/ Lymphatic: Denies: Easy Bruising, Easy Bleeding VTE Information - Inpt Only VTE Present on Admission: No VTE Mechan Device Prophylaxis: Knee High IGLESIA Hose VTE Pharm Prophylaxis ordered?: No Reason prophylaxis not ordered:: Treatment Not Indicated Patient Problems: Active and Suspected Problems Shortness of breath (Acute) Atrial flutter with rapid ventricular response (Acute) Healthcare associated bacterial pneumonia (Acute) Acute kidney injury (Acute) Chest pain (Acute) - Physical Exam General: Alert, Oriented x3, Cooperative HEENT: Atraumatic, PERRLA, EOMI, Normocephalic Neck: Supple, No JVD, Negative Carotid Bruits Lungs: Clear to auscultation, Normal air movement Cardiovascular: Regular rate, No murmurs Abdomen: Bowel Sounds Present, Soft, Non Tender Extremities: No edema, Capillary Refill Less than 3 Seconds Skin: No rashes, No breakdown Musculoskeletal: No Tenderness to Palpation of Joints or Extremities Neurological: Cranial nerves II-XII grossly intact Psych/Mental Status: Normal Affect, Appropriate Vital Signs Temp Pulse Resp BP Pulse Ox 97.7 F L 90 18 142/95 H 92 11/26/17 13:03 11/26/17 13:03 11/26/17 13:03 11/26/17 13:03 11/26/17 13:03 Oxygen Flow Rate (L/min) 2 Oxygen Delivery Method Nasal Cannula Weight: 162.885 kg Body Mass Index (BMI) 61.6 Assessment/Plan All Active Problems Shortness of breath (Acute) Atrial flutter with rapid ventricular response (Acute) Healthcare associated bacterial pneumonia (Acute) Acute kidney injury (Acute) Chest pain (Acute) Acute respiratory failure (Acute) Healthcare-associated pneumonia (Acute) Atrial flutter (Acute) 67 year old female with below past medical history hospitalized for atrial flutter requiring cardioversion x 3, acute respiratory failure requiring intubation secondary to H. Flu pneumonia, complicated by acute kidney injury, admitted to TCU with debility, here for rehabilitation, strengthening, prior to discharge home with family. * Debility - PT/OT. * Pain - Tylenol 1000MG Q8H PRN mild pain. * Bowel - Miralax 17GM daily, Senna/colace 1 tablet BID, Dulcolax 10MG PO daily PRN, Mag Citrate 300ML PO x 1 dose for cleanout. * Pneumonia vaccination - Administer Prevnar 13 and/or Pneumovax 23 as necessary. * DVT prophylaxis - Not necessary, already on Xarelto. * Calcium deficiency - Oscal D 1 tablet daily. * Atrial Flutter with RVR status post cardioversion x 3 - Metoprolol 25MG Q8H, Cardizem 60MG Q8H, Xarelto 20MG daily. * COPD - Duonebl 3ML Q6H PRN. * Tinea Corporis - Nystatin powder TID abdominal folds, under breasts. * GERD - Pantoprazole 20MG daily. * Sleep apnea - BiPAP at night, would benefit from formal sleep study. * Morbid Obesity - Would benefit from life saving bariatric surgery. 11/27/17 0823 <Electronically signed by Ryan Cat MD> Date Ryan Cat MD Cosigner Signature: Date (if applicable) CC: Ryan Cat MD; Sanchez Spears MD Signed CBC W/DIFF, AUTOMATED Collected: 11/27/2017 Status: F Source: [place] 6:20 AM [facility] REPOSITORY Order Comment: REDRAW. PREVIOUS SPECIMEN REJECTED DUE TO QNS. 11/27/17 0602 Gwendolyn Arianeluis. TYPE CODE TESTS RESULT OUT OF RANGE REFERENCE UNITS LAB L100.1000 4.4-11.0 K/mm3 Normal WBC 6.8 LAB L100.1200 4.2-5.4 M/mm3 Normal RBC 4.69 LAB L100.1300 12.0-15.0 g/dl Normal HGB 13.7 LAB L100.1400 37-47 % Normal HCT 45.9 LAB L100.1500 81-99 fL Normal MCV 97.9 LAB L100.1600 27.0-32.0 pg Normal MCH 29.2 LAB L100.1700 32-36 g/gl Low MCHC 29.8 LAB L100.1810 11.6-14.6 % Normal RDW CV 14.1 LAB L100.1820 35.1-43.9 fl High RDW SD 50.0 LAB L100.1900 150-450 K/mm3 Normal PLT 168 LAB L100.2000 6.2-12.0 fl Normal MPV 10.3 LAB L100.2100 47-70 % Normal NEUT% 59.2 LAB L100.2200 19-41 % Normal LY% 23.5 LAB L100.2300 0-10 % High MONO% 13.4 LAB L100.2400 0-5 % Normal EO% 3.7 LAB L100.2500 0-1 % Normal BASO% 0.1 LAB L100.2550 0.0-0.9 % Normal IM GRAN % 0.100 Result Comment: IG% - Immature Granulocytes (promyelocytes, myelocytes and metamyelocytes) > 1% indicates that a LEFT SHIFT is Present. LAB L100.2620 2.0-7.7 X10 3/uL Normal Absolute Neut 4.0 LAB L100.2720 0.83-4.51 X10 3/ul Normal Absolute Lymph 1.59 Performed By: #### L100.0100 #### [facility] [address] [place], [address] BASIC METABOLIC Collected: 11/27/2017 Status: F Source: VANE PROFILE (BMP) 5:10 AM [facility] REPOSITORY TYPE CODE TESTS RESULT OUT OF RANGE REFERENCE UNITS LAB L501.0100 74-106 mg/dL Normal GLU 87 Result Comment: Please note revised GLUCOSE reference range effective 2017. LAB L501.1000 7-18 mg/dL Normal BUN 11 LAB L501.1100 0.55-1.02 mg/dL Normal CREAT,SERUM 0.88 Result Comment: The validity of the calculated GFR AND GFRAA in patients over 70 years has not been determined. Clinical correlation is essential. LAB L501.1110 >60 mL/min Normal EST GFR 68 Result Comment: Non- GFR Calc LAB L501.1115 >60 mL/min Normal EST GFR - AA 82 Result Comment: GFR Calc LAB L501.1255 ml/min Normal Estimated CRCL 52.10 LAB L501.1300 10-20 RATIO Normal BUN/CRE 12.5 LAB L501.2200 8.5-10 mg/dL Normal .1 CA 8.5 LAB L501.5300 136-14 mmol/L High 5 NA 147 LAB L501.5600 3.5-5. mmol/L Normal 1 K 3.6 LAB L501.5900 98-107 mmol/L Normal CL 102 LAB L501.6100 21.0-3 mmol/L High 2.0 CO2 35.0 LAB L501.6200 5-15 Normal GAP 10 Performed By: #### L500.2500 #### [facility] [address] [place], [address] CNPTOUTREACH Observed: 11/27/2017 Status: COMPLETED Source: [place]ARR[place] 12:00 AM [facility] REPOSITORY Patient Outreach (FAMPWS) ALBA FLORES ([id number]) 1950 F Date Time Provider Department 11/27/17 RIN DELCID (RN) KALI During your visit today, we recorded the following information about you: Rin Delcid RN 11/27/2017 10:45 AM Signed TRANSITION CARE MANAGEMENT (TCM) DISCHARGE TO POST ACUTE FACILITY POST ACUTE TRANSFER SUMMARY: -Pt discharged from [facility] on 11/26/17. -Post Acute Facility Admitted to [facility] TCU -Admitted for: Rehab and Strengthening prior to discharge home with family (1) Shortness of breath (Acute) (2) Atrial flutter with rapid ventricular response (Acute) (3) Healthcare associated bacterial pneumonia (Acute) (4) Acute kidney injury (Acute) (5) Chest pain (Acute) (6) Acute respiratory failure (Acute) (7) Chronic obstructive pulmonary disease (Chronic) (8) Morbid obesity (Chronic) (9) HTN (hypertension) (Chronic) (10) GERD (gastroesophageal reflux disease) (Chronic) The patient is a 67 year old Female with below past medical history presented to [facility] Emergency Department 11/14/2017 with shortness of breath. 11/14/2017 EKG showed atrial flutter, left axis deviation, right bundle branch block. 11/14/2017 Chest X-ray cardiomegaly, bibasilar atelectasis/scarring. Shortness of breath x 2 days, feels winded. Weakness, SVT at PCP's office. Valsalva brought heart rate to 70, but heart rate increased back to 150. Hemoglobin 15.8, Sodium 148, Chloride 111, Glucose 133, Cr 1.21, Troponin 0.017. Adenosine 6MG, 12MG given showing atrial flutter rhythm. Cardizem, Metoprolol given, heart rate 140. Cardizem drip started, titrated upwards, tachycardia persisted. Digoxin given, heart rate 90 to 100. 11/14/2017 Admit to Hospital. Admit to PCU, cycle enzymes. Amiodarone, Cardizem, heparin drips. Plan NEREYDA, cardioversion. IV fluids for dehydration. 11/15/2017 NEREYDA showed mild LV dysfunction. EF 45% Mild segmental RV dysfunction. Patent foramen ovale by bubble study. 11/18/2017 Echo LV systolic function normal. EF 55% Mild concentric left ventricular hypertrophy. Mild to moderate global RV systolic dysfunction. RVSP 35mm HG. Diastolic dysfunction. 11/23/2017 DC cardioversion. Patient required intubation for acute respiratory failure. BiPAP at night. H. Flu HCAP treated with Rocephin IV x 5 days. Urine culture grew E. Cloacae, K. Pneumoniae. Urinary antigens for legionella, s. pneumoniae NEGATIVE. Amiodarone, Coreg, Xarelto for new onset atrial flutter. Acute Kidney Injury resolved with IV fluids. Encephalopathy improved. 11/26/2017 Admit to TCU with debility, here for rehabilitation, strengthening, prior to discharge home with family. Rin Delcid RN November 27, 2017 10:45 AM Rin Delcid RN 11/27/2017 10:48 AM Signed PRIMARY CARE COORDINATION QUICK NOTE Provider Action/SABINOI CAROLINA Koroma will monitor patient while she is in TCU. At discharge PCC will do TCM and follow patient Patient identified by name and date . Rin Delcid RN November 27, 2017 10:48 AM Cassy Leija Cma 11/27/2017 12:12 PM Signed I will follow up with TCU mid week this week. Thanks. Cassy Leija [facility] 11/29/2017 8:21 AM Signed Left message for HO Lowery, to return call #[phone] Cassy Leija [facility] 12/06/2017 9:13 AM Signed Spoke with HO Davis, (tabby is out today) who states she'll check on her status and get back to me. Cassy Leija [facility] 12/06/2017 12:28 PM Signed Patient is being discharged Monday. O2 reading tomorrow. Allergies As of Date: 11/27/2017 Noted Allergy Reaction ASA (ASPIRIN) 01/16/2015 8 - GI Upset Date Reviewed: 11/14/2017 Reviewed by: Tanna Boss Ma - Fully Assessed Reason for Visit: Transition Of Care [8933] Prescriptions as of 11/27/2017 Sig: LISINOPRIL 20 MG TABLET Take 1.5 tablets by mouth onc* OMEPRAZOLE 20 MG CAPSULE,CECILIA* Take 1 capsule by mouth once * CALCIUM + D ORAL Take by mouth. FISH OIL ORAL Take by mouth. Problem List As Of Date 11/27/2017 Noted Resolved HTN (hypertension) [I10] Borderline diabetes [R73.03] INVALID FOR* Endometrial cancer, grade I (HCC) [C54.1] INVALID FOR* Morbid obesity (HCC) [E66.01] INVALID FOR* Osteopenia [M85.80] INVALID FOR* Encounter Status:Closed by CASSY LEIJA CMA on 11/27/17 DISCHARGE SUMMARY Observed: 11/26/2017 Status: F Source: [place] 3:02 PM [facility] REPOSITORY [facility] Medical Records Department [address] [facility] [place] [address] Discharge Summary 11/26/17 1453 MR#: [id number] Acct: [id number] Name: ALBA FLORES Rep #: [id number] : 1950 67 From: Billie Maciel MD PCP: Sanchez Spears MD Status: DIS IN Y Location: [place] [address] Discharge Date and Diagnosis - Problem List Patient Problems: Active and Suspected Problems Shortness of breath (Acute) Atrial flutter with rapid ventricular response (Acute) Healthcare associated bacterial pneumonia (Acute) Acute kidney injury (Acute) Chest pain (Acute) Date of Admission: 11/14/17 Date of Discharge: 11/26/17 - Primary Discharge Diagnosis Active and Suspected Problems #1 acute hypoxic and hypercapnic respiratory failure. #2 Haemophilus influenza healthcare associated pneumonia. #3 new onset atrial flutter with RVR. #4 metabolic encephalopathy. #5 acute kidney injury. - Secondary Discharge Diagnosis Chronic Problems Chronic obstructive pulmonary disease (Chronic) Morbid obesity (Chronic) HTN (hypertension) (Chronic) GERD (gastroesophageal reflux disease) (Chronic) Hospital Course and Treatment Imaging Results: Clinical Impression(s) from Imaging Studies Chest X-Ray 11/14/17 09:52 IMPRESSION: Cardiomegaly. Mild increased markings at the lung bases suggestive of linear atelectasis and/or scarring. Electronically Signed: Lewis Aguirre MD at 10:22 EDT Tel [phone], Service support , Chest CTA 11/15/17 14:45 IMPRESSION: Bilateral pleural effusions with bibasilar infiltration and/or atelectasis. Focal infiltrate in the posterior aspect of the exam of the left upper lobe as well as increased markings in the right middle lobe. Electronically Signed: Lewis Aguirre MD at 15:39 EDT Tel [phone], Service support , Chest X-Ray 11/17/17 08:16 IMPRESSION: Cardiomegaly. Bibasilar patchy infiltrates. Follow-up is recommended. Electronically Signed: Lweis Aguirre MD at 10:44 EDT Tel [phone], Service support , Chest X-Ray 11/17/17 13:55 IMPRESSION: Endotracheal tube and feeding tube placement. Bilateral infiltrates or edema and small effusions. Electronically Signed: Clarke Fragoso MD at 14:46 EDT , Service support , Brain CT 11/17/17 16:30 IMPRESSION: 1. Chronic involutional changes of the brain. 2. Nasogastric and endotracheal tubes are noted. 3. There is no intracranial hemorrhage or evidence of acute infarct. The visualized paranasal sinuses appear within normal limits. Electronically Signed: Kevin Newsome MD at 16:52 EDT , Service support , Chest X-Ray 11/18/17 06:15 IMPRESSION: Bilateral infiltrates or edema and pleural effusions with worsening. Electronically Signed: Clarke Fragoso MD at 8:24 EDT , Service support , Consultations 11/14/17 18:28 MD to MD Notification of Procedure Routine MD Notified:: Lee Hernandez Dr., cardiology. Dr. King/Dr. Newman, critical care. Procedures: 2-D Echocardiogram, Cardioversion, EKG Summary of Care Provided: Patient seen and examined on the day of discharge and appeared to be stable to be discharged to transitional care unit. She denies any significant complaints. Her breathing is stable. Denied chest pain or shortness of breath. Denied palpitation, dizziness or lightheadedness. She mentioned and atrial fibrillation, rate has been in the 70s, blood pressure stable, pulse ox is 94% on 2 L. - Physical Exam General: Alert, Oriented x3, Cooperative, No apparent distress. HEENT: Atraumatic, PERRLA, EOMI. Neck: Supple, No JVD, Negative Carotid Bruits, Trachea Midline, Thyroid Normal. Lungs: Decreased breath sounds bilaterally, more at the bases, No rhonchi, No wheeze, No rales. Cardiovascular: irregular rhythm, Normal S1, Normal S2, PMI Normal. Abdomen: Bowel Sounds Present, Soft, Non Tender, Non-Distended, No Hepato-splenomegaly. Extremities: No clubbing, No cyanosis, ++ edema Skin: No rashes, No breakdown Neurological: Neuro grossly intact Vital Signs are stable. Hospital course: This is a 67 years old female patient admitted because of shortness of breath and chest pain, found to have healthcare associated pneumonia complicated by acute hypoxic and hypercarbic respiratory failure and she developed atrial flutter with RVR status post failed cardioversion 3. #1 acute hypoxic and hypercapnic respiratory failure: Attributed to pneumonia. Patient was admitted to ICU, intubated and remained on mechanical ventilation. She was extubated after 4 days and post extubation, she remained stable from a respiratory standpoint. Upon discharge to TCU, she was discharged on oxygen at 2 L during daytime and BiPAP during nighttime, plan to follow-up with pulmonology as outpatient. #2 Haemophilus influenza healthcare associated pneumonia: Completed 5 days of IV Rocephin. She remained afebrile for more than 72 hours. Her sputum culture revealed Haemophilus influenza. Blood culture showed no growth in 5 days. Urine culture revealed Enterobacter cloacae and Klebsiella pneumoniae, sensitivity reviewed. Pneumococcal and Legionella antigen were negative. She completed the course of IV Rocephin, no antibiotics prescribed upon discharge. #3 new onset atrial flutter with RVR: Status post failed DC cardioversion x3. Patient underwent cardioversion 3 and she converted back to sinus rhythm but only for short time and then she went back into atrial flutter with RVR again and again. She was treated with IV amiodarone drip as well. Lastly, she was started on Cardizem and metoprolol and her heart rate stabilized. She was started on Xarelto for anticoagulation. 2D echocardiogram revealed ejection fraction of 55%. Discharged to TCU on Cardizem 60 mg p.o. every 8 hours, metoprolol 25 mg p.o. every 8 hours, discharged on Xarelto for anticoagulation, plan to follow-up with cardiology as outpatient. #4 encephalopathy: Likely metabolic secondary to pneumonia and respiratory failure. CT scan brain showed no acute findings. Resolved. #5 acute kidney injury: Secondary to infection. Kidney function is back to normal with IV fluid therapy. Patient discharged to TCU in a stable medical condition, discharged on metoprolol and Cardizem for rate control for atrial flutter, discharged on Xarelto for anticoagulation, she completed 5 days of IV Rocephin for pneumonia, discharged on DuoNeb every 6 hours, lisinopril discontinued, plan to follow-up with PCP in 1-2 weeks, follow-up with pulmonology according to Dr. Newman, follow-up with cardiology according to Dr. Hernandez. This note was generated with [employer] dictation software. It may contain incorrect words, spelling, and punctuation that were not noted in checking the note before signing. Home Medications: Medications to take at Discharge [place]-3 Fatty Acids/Fish Oil [Fish Oil 1,000 mg Capsule] 1 each PO DAILY 07/02/16 Calcium Carbonate/Vitamin D3 [Calcium 500+D Tablet Chew] 1 each PO DAILY 11/14/17 Omeprazole 20 mg PO DAILY 11/14/17 Diltiazem [Cardizem] 60 mg PO Q8 11/26/17 Ipratropium/Albuterol Sulfate [Duoneb] 3 ml INHALATION Q6H.RT PRN #1 ampul.neb 11/26/17 Metoprolol Tartrate [Lopressor (beta maeve)] 25 mg PO Q8 11/26/17 Rivaroxaban [Xarelto] 20 mg PO DAILY@1800 11/26/17 Senna/Docusate Sodium [Senokot-S] 2 tablet PO DAILY PRN PRN #1 tablet 11/26/17 Following Prescrptions Were Given to Patient: Ipratropium/Albuterol Sulfate [Duoneb] 3 ml INHALATION Q6H.RT PRN #1 ampul.neb PRN Reason: Wheezing/SOB Senna/Docusate Sodium [Senokot-S] 2 tablet PO DAILY PRN PRN #1 tablet PRN Reason: CONSTIPATION Primary Care Physician: Sanchez Spears MD [Primary Care Provider] - Please follow up with your Primary Care Physician in: 1-2 weeks. Please Follow Up With: Marshall Newman MD When: call his office. Please Follow Up With: Lee Hernandez MD When: 1 week Disposition: [facility] facility Minutes spent on discharge:: 38 Patient Condition:: Stable Medical Necessity - Tobacco Use Smoking Status: Former smoker - quit 1990 smoked x 10 years Tobacco Use: Cigarettes Meaningful Use Info Meaningful Use Diagnoses (Choose all that apply): None applicable Code Visit Inpatient E AND M: 89678 Disch Hosp 11/26/17 1502 <Electronically signed by Billie Maciel MD> Date Billie Maciel MD Cosigner Signature (if applicable): Date CC: Marshall Newman MD; Billie Maciel; Lee Hernandez MD; Sanchez Spears MD Signed TRANSFER TO EXTENDED Observed: 11/26/2017 Status: F Source: [facility] 10:20 AM [facility] REPOSITORY [facility] Medical Records Department [address] [place] [address] Transfer to [facility] Care MR#: [id number] Acct: [id number] Name: ALBA FLORES Rep #: [id number] : 1950 67 From: Billie Maciel MD PCP: Sanchez Spears MD Status: ADM IN ALBA FLORES (Patient) (Health Ins. Claim No.) (Day of Discharge to Facility) Certification of patient admission REQUIRED AT TIME OF ADMISSION. I CERTIFY THAT POST-HOSPITAL ECF SERVICES ARE REQUIRED TO BE GIVEN ON AN IN-PATIENT BASIS BECAUSE OF THE ABOVE NAMED PATIENT'S NEED FOR CORRECTION CARE ON A CONTINUING BASIS FOR THE CONDITION(S) FOR WHICH HE/SHE WAS RECEIVING IN-PATIENT HOSPITAL SERVICES PRIOR TO HIS/HER TRANSFER TO [facility]. 11/26/17 1020 <Electronically signed by Billie Maciel MD> Date Billie Maciel MD - Diet 11/23/17 10:56 Diet: Cardiac/Low Cholesterol Is pt able to select menu?: Yes - Routine Orders/Code Status O2 Liters per Minute: 2 O2 Frequency: Continuous Keep PO Greater than or Equal to (%): 92 - Wound(s) mid back skin fold Wound Type: Abrasion - Suggestions for Active Care Change Position every (hours): 3 Hours to sit in a chair: 2 Times a day to sit in chair: 3 - Therapies Weight Bearing: Weight bearing as tolerated Physical Therapy: Eval and Treat Occupational Therapy: Eval and Treat - Allergies/Procedures Done in Hospital Allergies/Adverse Reactions: Allergies aspirin [ASA] Adverse Reaction (Verified 11/14/17 14:34) stomach burning and sick to stomach propoxyphene HCl [From Darvon] Adverse Reaction (Verified 11/14/17 14:34) i get dizzy and pass out - Type of Care/Length of Stay Estimated LOS: Convalescent Care Less Than 30 days Type of Care Needed: Skilled Rehab Potential: Good Prognosis: Good - Additional Orders/Day of Discharge Additional Orders: Continue BIPAP with same current settings and keep O2 sat in low 90s. H AND P will serve as current which was dated: 11/14/17 Day of Discharge: 11/26/17 - Follow Up Care Primary Care Physician: Sanchez Spears MD [Primary Care Provider] - Please follow up with your Primary Care Physician in: 1-2 weeks. Please Follow Up With: Marshall Newman MD When: call his office. Please Follow Up With: Lee Hernandez MD When: call his office. 11/26/17 1020 <Electronically signed by Billie Maciel MD> Date Billie Maciel MD CC: Charlie King D.O.; Lee Hernandez MD; Sanchez Spears MD Signed CBC W/DIFF, AUTOMATED Collected: 11/26/2017 Status: F Source: [place] 5:49 AM [facility] REPOSITORY TYPE CODE TESTS RESULT OUT OF RANGE REFERENCE UNITS LAB L100.1000 4.4-11.0 K/mm3 Normal WBC 6.7 LAB L100.1200 4.2-5.4 M/mm3 Normal RBC 4.82 LAB L100.1300 12.0-15.0 g/dl Normal HGB 14.3 LAB L100.1400 37-47 % Normal HCT 46.7 LAB L100.1500 81-99 fL Normal MCV 96.9 LAB L100.1600 27.0-32.0 pg Normal MCH 29.7 LAB L100.1700 32-36 g/gl Low MCHC 30.6 LAB L100.1810 11.6-14.6 % Normal RDW CV 13.9 LAB L100.1820 35.1-43.9 fl High RDW SD 48.2 LAB L100.1900 150-450 K/mm3 Low PLT 147 LAB L100.2000 6.2-12.0 fl Normal MPV 10.0 LAB L100.2100 47-70 % Normal NEUT% 55.1 LAB L100.2200 19-41 % Normal LY% 25.9 LAB L100.2300 0-10 % High MONO% 13.8 LAB L100.2400 0-5 % Normal EO% 4.8 LAB L100.2500 0-1 % Normal BASO% 0.2 LAB L100.2550 0.0-0.9 % Normal IM GRAN % 0.200 Result Comment: IG% - Immature Granulocytes (promyelocytes, myelocytes and metamyelocytes) > 1% indicates that a LEFT SHIFT is Present. LAB L100.2620 2.0-7.7 X10 3/uL Normal Absolute Neut 3.7 LAB L100.2720 0.83-4.51 X10 3/ul Normal Absolute Lymph 1.72 Performed By: #### L100.0100 #### [facility] [address] [facility] [place], [address] BASIC METABOLIC Collected: 11/26/2017 Status: F Source: VANE PROFILE (BMP) 5:49 AM [facility] REPOSITORY TYPE CODE TESTS RESULT OUT OF RANGE REFERENCE UNITS LAB L501.0100 74-106 mg/dL Normal GLU 86 Result Comment: Please note revised GLUCOSE reference range effective 2017. LAB L501.1000 7-18 mg/dL Normal BUN 12 LAB L501.1100 0.55-1.02 mg/dL Normal CREAT,SERUM 0.86 Result Comment: The validity of the calculated GFR AND GFRAA in patients over 70 years has not been determined. Clinical correlation is essential. LAB L501.1110 >60 mL/min Normal EST GFR 69 Result Comment: Non- GFR Calc LAB L501.1115 >60 mL/min Normal EST GFR - AA 84 Result Comment: GFR Calc LAB L501.1255 ml/min Normal Estimated CRCL 55.55 LAB L501.1300 10-20 RATIO Normal BUN/CRE 14.0 LAB L501.2200 8.5-10 mg/dL Normal .1 CA 8.6 LAB L501.5300 136-14 mmol/L Normal 5 NA 144 LAB L501.5600 3.5-5. mmol/L Normal 1 K 4.0 LAB L501.5900 98-107 mmol/L Normal CL 100 LAB L501.6100 21.0-3 mmol/L High 2.0 CO2 37.0 LAB L501.6200 5-15 Normal GAP 7 Performed By: #### L500.2500 #### [facility] [address] [facility] [place], [address] 12 LEAD ELECTROCARDIOGRAM Observed: 11/24/2017 Status: F Source: [place] 2:45 PM [facility] REPOSITORY [facility] Cardiovascular Services [address] [facility] [place] [address] 12 Lead EKG 11/14/17 1858 MR#: [id number] Acct: [id number] Name: ALBA FLORES Rep #: [id number] : 1950 67 From: Lee Hernandez MD Attending Dr: Billie Maciel Status: ADM IN Ordering Dr: Marshall Newman MD Date: 11/21/17 Location: [facility] Sex: F C Admitted: 11/14/17 Test Reason : SERIES Blood Pressure : / mmHG Vent. Rate : 089 BPM Atrial Rate : 258 BPM P-R Int : 000 ms QRS Dur : 168 ms QT Int : 388 ms P-R-T Axes : -57 267 -64 degrees QTc Int : 472 ms Atrial flutter with variable A-V block Right bundle branch block Inferior infarct , age undetermined , cannot be excluded Anterolateral infarct , age undetermined , cannot be excluded Abnormal ECG Confirmed by MARY WALKER, LEE ([id number]), social media editor JERRICA HUITRON ([id number]) on 11/24/2017 2:44:51 PM Referred By: LINDA Confirmed By:LEE HERNANDEZ MD 11/24/17 1444 Date Lee Hernandez MD CC: Marshall Newman MD; Billie Maciel; Sanchez Spears MD Signed 12 LEAD ELECTROCARDIOGRAM Observed: 11/24/2017 Status: F Source: [place] 2:45 PM [facility] REPOSITORY [facility] Cardiovascular Services [address] [place] [address] 12 Lead EKG 11/15/17 0517 MR#: [id number] Acct: [id number] Name: ALBA FLORES Rep #: [id number] : 1950 67 From: Lee Hernandez MD Attending Dr: Billie Maciel Status: ADM IN Ordering Dr: Marshall Newman MD Date: 11/23/17 Location: U Sex: F C Admitted: 11/14/17 Test Reason : AM EKG Blood Pressure : / mmHG Vent. Rate : 087 BPM Atrial Rate : 249 BPM P-R Int : 000 ms QRS Dur : 200 ms QT Int : 418 ms P-R-T Axes : 000 -77 -33 degrees QTc Int : 502 ms Atrial flutter with variable A-V block with premature ventricular or aberrantly conducted complexes Left axis deviation Right bundle branch block Inferior WV, age undetermined, cannot be excluded Ramon-lateral infarct, age undetermined, cannot be excluded Abnormal ECG Confirmed by LEE HERNANDEZ MD ([id number]), social media editor JERRICA HUITRON ([id number]) on 11/24/2017 2:45:01 PM Referred By: ROQUE Confirmed By:LEE HERNANDEZ MD 11/24/17 1445 Date Lee Hernandez MD CC: Marshall Newman MD; Billie Maciel; Sanchez Spears MD Signed 12 LEAD ELECTROCARDIOGRAM Observed: 11/24/2017 Status: F Source: [place] 2:44 PM [facility] REPOSITORY [facility] Cardiovascular Services [address] [address] 12 Lead EKG 11/21/17 0825 MR#: [id number] Acct: [id number] Name: ALBA FLORES Rep #: [id number] : 1950 67 From: Lee Hernandez MD Attending Dr: Billie Maciel Status: ADM IN Ordering Dr: Lee Hernandez MD Date: 11/24/17 Location: [facility] Sex: F C Admitted: 11/14/17 Test Reason : Blood Pressure : / mmHG Vent. Rate : 128 BPM Atrial Rate : 128 BPM P-R Int : 088 ms QRS Dur : 144 ms QT Int : 380 ms P-R-T Axes : 000 263 045 degrees QTc Int : 554 ms Atrial flutter Right bundle branch block Inferior infarct , age undetermined , cannot be excluded Abnormal ECG Confirmed by LEE HERNANDEZ MD ([id number]), social media editor JERRICA HUITRON ([id number]) on 11/24/2017 2:44:33 PM Referred By: Confirmed By:LEE HERNANDEZ MD 11/24/17 1445 Date Lee Hernandez MD CC: Billie Maciel; Lee Hernandez MD; Sanchez Spears MD Signed 12 LEAD ELECTROCARDIOGRAM Observed: 11/24/2017 Status: F Source: [place] 2:42 PM [facility]IT[facility] Cardiovascular Services [address] [place] [address] 12 Lead EKG 11/21/17 0813 MR#: [id number] Acct: [id number] Name: ALBA LFORES F Rep #: [id number] : 1950 67 From: Lee Hernandez MD Attending Dr: Billie Maciel Status: ADM IN Ordering Dr: Lee Hernandez MD Date: 11/21/17 Location: [facility] Sex: F C Admitted: 11/14/17 Test Reason : Blood Pressure : / mmHG Vent. Rate : 128 BPM Atrial Rate : 100 BPM P-R Int : 000 ms QRS Dur : 168 ms QT Int : 404 ms P-R-T Axes : 000 262 046 degrees QTc Int : 589 ms Atrial flutter Right bundle branch block Inferior infarct , age undetermined , cannot be excluded Abnormal ECG Confirmed by MARY WALKER, LEE ([id number]), social media editor JERRICA HUITRON ([id number]) on 11/24/2017 2:42:10 PM Referred By: Confirmed By:LEE HERNANDEZ MD 11/24/17 1442 Date Lee Hernandez MD CC: Billie Maciel; Lee Hernandez MD; Sanchez Spears MD Signed 12 LEAD ELECTROCARDIOGRAM Observed: 11/24/2017 Status: F Source: [place] 2:40 PM [facility] Cardiovascular Services [address] [place] [address] 12 Lead EKG 11/18/17 0815 MR#: [id number] Acct: [id number] Name: ALBA FLORES F Rep #: [id number] : 1950 67 From: Lee Hernandez MD Attending Dr: Billie Maciel Status: ADM IN Ordering Dr: Charlie King DO Date: 11/18/17 Location: [facility]U Sex: F C Admitted: 11/14/17 Test Reason : ARRYTHMIA Blood Pressure : / mmHG Vent. Rate : 055 BPM Atrial Rate : 055 BPM P-R Int : 212 ms QRS Dur : 166 ms QT Int : 480 ms P-R-T Axes : 045 263 -86 degrees QTc Int : 459 ms Sinus bradycardia with 1st degree A-V block with Premature supraventricular complexes Right bundle branch block Abnormal ECG Confirmed by LEE HERNANDEZ MD ([id number]), social media editor JERRICA HUITRON ([id number]) on 11/24/2017 2:40:40 PM Referred By: MEGHANN Confirmed By:LEE HERNANDEZ MD 11/24/17 1440 Date Lee Hernandez MD CC: Charlie King D.O.; Billie Maciel; Sanchez Spears MD Signed 12 LEAD ELECTROCARDIOGRAM Observed: 11/24/2017 Status: F Source: [place] 2:39 PM [facility] REPOSITORY [facility] Cardiovascular Services [address] [place] [address] 12 Lead EKG 11/14/17 1857 MR#: [id number] Acct: [id number] Name: ALBA FLORES Rep #: [id number] : 1950 67 From: Lee Hernandez MD Attending Dr: Billie Maciel Status: ADM IN Ordering Dr: Lee Hernandez MD Date: 11/14/17 Location: [facility] Sex: F C Admitted: 11/14/17 Test Reason : SERIES Blood Pressure : / mmHG Vent. Rate : 087 BPM Atrial Rate : 265 BPM P-R Int : 000 ms QRS Dur : 164 ms QT Int : 414 ms P-R-T Axes : 193 265 -65 degrees QTc Int : 498 ms Suspect arm lead reversal, interpretation assumes no reversal Atrial flutter with variable A-V block Right bundle branch block Inferior infarct , age undetermined , cannot be excluded Anterolateral infarct , age undetermined , cannot be excluded Abnormal ECG Confirmed by LEE HERNANDEZ MD ([id number]), social media editor JERRICA HUITRON ([id number]) on 11/24/2017 2:38:58 PM Referred By: LINDA Confirmed By:LEE HERNANDEZ MD 11/24/17 1438 Date Lee Hernandez MD CC: Billie Maciel; Lee Hernandez MD; Sanchez Spears MD Signed 12 LEAD ELECTROCARDIOGRAM Observed: 11/24/2017 Status: F Source: [place] 2:35 PM [facility] REPOSITORY [facility] Cardiovascular Services [address] [place] [address] 12 Lead EKG 11/20/17 1603 MR#: [id number] Acct: [id number] Name: ALBA FLORES Rep #: [id number] : 1950 67 From: Lee Hernandez MD Attending Dr: Billie Maciel Status: ADM IN Ordering Dr: Marshall Newman MD Date: 11/20/17 Location: [facility] Sex: F C Admitted: 11/14/17 Test Reason : CP Blood Pressure : / mmHG Vent. Rate : 075 BPM Atrial Rate : 075 BPM P-R Int : 000 ms QRS Dur : 172 ms QT Int : 424 ms P-R-T Axes : 042 -81 007 degrees QTc Int : 473 ms Ectopic atrial vs junctional rhythm with PACs in a pattern of atrial bigeminy Right bundle branch block Left anterior fascicular block Bifascicular block Abnormal ECG Confirmed by LEE HERNANDEZ MD ([id number]), social media editor JERRICA HUITRON ([id number]) on 11/24/2017 2:35:15 PM Referred By: ANAT Confirmed By:LEE HERNANDEZ MD 11/24/17 8056 Date Lee Hernandez MD CC: Marshall Newman MD; Billie Maciel; Sanchez Spears MD Signed 12 LEAD ELECTROCARDIOGRAM Observed: 11/24/2017 Status: F Source: [place] 2:23 PM [facility] REPOSITORY [facility] Cardiovascular Services [address] [place] [address] 12 Lead EKG 11/21/17 1013 MR#: [id number] Acct: [id number] Name: ALBA FLORES Rep #: [id number] : 1950 67 From: Lee Hernandez MD Attending Dr: Billie Maciel Status: ADM IN Ordering Dr: Lee Hernandez MD Date: 11/21/17 Location: [facility] Sex: F C Admitted: 11/14/17 Test Reason : POST CARDIOVERSION Blood Pressure : / mmHG Vent. Rate : 085 BPM Atrial Rate : 085 BPM P-R Int : 224 ms QRS Dur : 176 ms QT Int : 424 ms P-R-T Axes : -03 269 024 degrees QTc Int : 504 ms Sinus rhythm with 1st degree A-V block with Premature atrial complexes Right bundle branch block Abnormal ECG Confirmed by MARY WALKER, LEE ([id number]), social media editor JERRICA HUITRON ([id number]) on 11/24/2017 2:23:12 PM Referred By: MARY Confirmed By:LEE HERNANDEZ MD 11/24/17 1423 Date Lee Hernandez MD CC: Billie Maciel; Lee Hernandez MD; Sanchez Spears MD Signed BASIC METABOLIC Collected: 11/24/2017 Status: F Source: [place] PROFILE (BMP) 6:25 AM [facility] REPOSITORY TYPE CODE TESTS RESULT OUT OF RANGE REFERENCE UNITS LAB L501.0100 74-106 mg/dL Normal GLU 89 Result Comment: Please note revised GLUCOSE reference range effective 2017. LAB L501.1000 7-18 mg/dL Normal BUN 12 LAB L501.1100 0.55-1.02 mg/dL Normal CREAT,SERUM 0.79 Result Comment: The validity of the calculated GFR AND GFRAA in patients over 70 years has not been determined. Clinical correlation is essential. LAB L501.1110 >60 mL/min Normal EST GFR 76 Result Comment: Non- GFR Calc LAB L501.1115 >60 mL/min Normal EST GFR - AA 92 Result Comment: GFR Calc LAB L501.1255 ml/min Normal Estimated CRCL 47.78 LAB L501.1300 10-20 RATIO Normal BUN/CRE 15.1 LAB L501.2200 8.5-10 mg/dL Normal .1 CA 8.7 LAB L501.5300 136-14 mmol/L Normal 5 NA 140 LAB L501.5600 3.5-5. mmol/L Normal 1 K 3.7 LAB L501.5900 98-107 mmol/L Normal CL 100 LAB L501.6100 21.0-3 mmol/L High 2.0 CO2 38.0 LAB L501.6200 5-15 Low GAP 2 Performed By: #### L500.2500, L501.2300, L501.5200 #### [facility] [address] [facility] [place], [address] PHOSPHORUS Collected: 11/24/2017 Status: F Source: [place] 6:25 AM [facility] REPOSITORY TYPE CODE TESTS RESULT OUT OF RANGE REFERENCE UNITS LAB L501.2300 2.5-4.9 mg/dL Normal PHOS 3.6 Performed By: #### L500.2500, L501.2300, L501.5200 #### [facility] [address] [facility] [place], [address] MAGNESIUM Collected: 11/24/2017 Status: F Source: [place] 6:25 AM [facility] REPOSITORY TYPE CODE TESTS RESULT OUT OF RANGE REFERENCE UNITS LAB L501.5200 1.6-2.6 mg/dL Normal MG 2.3 Performed By: #### L500.2500, L501.2300, L501.5200 #### [facility] [address] [facility] [place], [address] OPERATIVE REPORT Observed: 11/24/2017 Status: F Source: [place] 5:34 AM [facility] REPOSITORY [facility] Medical Records Department [address] [place] [address] Operative Report 11/23/17 0950 MR#: [id number] Acct: [id number] Name: ALBA FLORES Rep #: [id number] : 1950 67 From: Marshall Nemwan MD PCP: aSnchez Spears MD Status: ADM IN Y Location: ICU ICU02-1 Problem List (1) Acute respiratory failure Status: Acute Qualifiers: Respiratory failure complication: hypoxia and hypercapnia Qualified Code(s): J96.01 - Acute respiratory failure with hypoxia; J96.02 - Acute respiratory failure with hypercapnia (2) Healthcare-associated pneumonia Status: Acute (3) Atrial flutter Status: Acute Qualifiers: Atrial flutter type: typical Qualified Code(s): I48.3 - Typical atrial flutter (4) Morbid obesity Status: Chronic (5) HTN (hypertension) Status: Chronic Qualifiers: Hypertension type: essential hypertension Qualified Code(s): I10 - Essential (primary) hypertension (6) GERD (gastroesophageal reflux disease) Status: Chronic Qualifiers: Esophagitis presence: without esophagitis Qualified Code(s): K21.9 - Gastro-esophageal reflux disease without esophagitis Operative Report Date of Procedure: 11/23/17 CONSCIOUS SEDATION REPORT BRIEF HISTORY OF PRESENT ILLNESS: The patient is a 67-year-old [female] who presented to [facility] on 11/14/2017 and has had a complicated hospital course. The patient reports no PO intake since midnight. The patient does have a history of [obstructive sleep apnea]. The patient reports [a] history of smoking and COPD. Previous attempts at cardioversion have been unsuccessful, but patient has tolerated sedation with etomidate multiple times. The patient denies previous anesthetic complications. PHYSICAL EXAMINATION: VITAL SIGNS: Reviewed and were acceptable. GENERAL: The patient is an obese [female], in no apparent distress, speaking in full sentences. HEENT: Normocephalic, atraumatic. Mucous membranes are moist and pink. Good mouth opening noted. Trachea is midline. Good neck mobility. MP [IV] CHEST: S1, S2 irregularly irregular. No murmurs, rubs or gallops were noted. LUNGS: Clear to auscultation bilaterally without appreciable wheezes, rales or rhonchi. ABDOMEN: Soft, nontender, nondistended. Positive bowel sounds. EXTREMITIES: There is no clubbing, cyanosis or edema. ASA Class: II DESCRIPTION OF PROCEDURE: After confirmation of informed consent, the patient's anesthesia plan was reviewed in detail. [Etomidate] was chosen. Risks and benefits were reviewed and the patient agreed to proceed. At 9:40 AM, the patient was given [4 mg of etomidate]. The patient achieved an appropriate level of sedation and received 2 attempt[s] synchronized cardioversion, at [50 J and 200 J respectively] by [Dr. Hernandez] at the bedside. This was [successful] in achieving normal sinus rhythm. The patient was monitored until 9:49 AM, at which time the patient reached their baseline mental status and function. The patient tolerated the procedure well. An EKG has been ordered to confirm normal sinus rhythm. COMPLICATIONS: None ESTIMATED BLOOD LOSS: None RECOMMENDATIONS: Okay to recover in usual fashion. Patient likely go to PCU later today. Code Visit 9xxxx: Other Procedure See Report - [id number] 11/24/17 0534 <Electronically signed by Marshall Newman MD> Date Marshall Newman MD CC: Marshall Newman MD; Charlie King D.O.; Lee Hernandez MD; Sanchez Spears MD Signed OPERATIVE REPORT Observed: 11/23/2017 Status: F Source: [place] 11:42 AM [facility] REPOSITORY [facility] Medical Records Department [address] [place] [address] Operative Report 11/23/17 1141 MR#: [id number] Acct: [id number] Name: ALBA FLORES Rep #: [id number] : 1950 67 From: Lee Hernandez MD PCP: Sanchez Spears MD Status: ADM IN Y Location: ICU ICU02-1 Problem List (1) Atrial flutter Status: Acute Qualifiers: Atrial flutter type: typical Qualified Code(s): I48.3 - Typical atrial flutter (2) Chest pain Status: Deleted (3) Shortness of breath Status: Deleted (4) HTN (hypertension) Status: Chronic Qualifiers: Hypertension type: essential hypertension Qualified Code(s): I10 - Essential (primary) hypertension (5) GERD (gastroesophageal reflux disease) Status: Chronic Qualifiers: Esophagitis presence: without esophagitis Qualified Code(s): K21.9 - Gastro-esophageal reflux disease without esophagitis (6) Morbid obesity Status: Chronic Operative Report Date of Procedure: 11/23/17 Procedure: Synchronized biphasic DC cardioversion Indications: Atrial flutter with rapid ventricular response Consent: Per the patient Premedications: Per Dr. Marshall Newman pulmonology and/critical care medicine with etomidate 4 mg IV push total Procedure: Synchronized biphasic DC cardioversion: 50 J 1: Result: Atrial flutter Synchronized biphasic DC cardioversion: 200 J 1: Result: Sinus rhythm Implications: No apparent complications This note was generated with Sprout Route[employer] software. It may contain incorrect words, spelling, and punctuation that were not noted in checking the note before signing. 11/23/17 1142 <Electronically signed by Lee Hernandez MD> Date Lee Hernandez MD CC: Charlie King D.O.; Lee Hernandez MD; Sanchez Spears MD Signed CBC W/DIFF, AUTOMATED Collected: 11/23/2017 Status: F Source: [place] 4:50 AM [facility] REPOSITORY TYPE CODE TESTS RESULT OUT OF RANGE REFERENCE UNITS LAB L100.1000 4.4-11.0 K/mm3 Normal WBC 5.2 LAB L100.1200 4.2-5.4 M/mm3 Normal RBC 5.03 LAB L100.1300 12.0-15.0 g/dl Normal HGB 14.7 LAB L100.1400 37-47 % High HCT 49.1 LAB L100.1500 81-99 fL Normal MCV 97.6 LAB L100.1600 27.0-32.0 pg Normal MCH 29.2 LAB L100.1700 32-36 g/gl Low MCHC 29.9 LAB L100.1810 11.6-14.6 % Normal RDW CV 14.2 LAB L100.1820 35.1-43.9 fl High RDW SD 50.6 LAB L100.1900 150-450 K/mm3 Low PLT 105 LAB L100.2000 6.2-12.0 fl Normal MPV 10.5 LAB L100.2100 47-70 % Normal NEUT% 57.1 LAB L100.2200 19-41 % Normal LY% 23.6 LAB L100.2300 0-10 % High MONO% 15.1 LAB L100.2400 0-5 % Normal EO% 3.8 LAB L100.2500 0-1 % Normal BASO% 0.2 LAB L100.2550 0.0-0.9 % Normal IM GRAN % 0.200 Result Comment: IG% - Immature Granulocytes (promyelocytes, myelocytes and metamyelocytes) > 1% indicates that a LEFT SHIFT is Present. LAB L100.2620 2.0-7.7 X10 3/uL Normal Absolute Neut 3.0 LAB L100.2720 0.83-4.51 X10 3/ul Normal Absolute Lymph 1.23 Performed By: #### L100.0100 #### [facility] [address], [address] BASIC METABOLIC Collected: 11/23/2017 Status: F Source: [place] PROFILE (BMP) 4:50 AM [facility] REPOSITORY TYPE CODE TESTS RESULT OUT OF RANGE REFERENCE UNITS LAB L501.0100 74-106 mg/dL Normal GLU 87 Result Comment: Please note revised GLUCOSE reference range effective 2017. LAB L501.1000 7-18 mg/dL Normal BUN 13 LAB L501.1100 0.55-1.02 mg/dL Normal CREAT,SERUM 0.83 Result Comment: The validity of the calculated GFR AND GFRAA in patients over 70 years has not been determined. Clinical correlation is essential. LAB L501.1110 >60 mL/min Normal EST GFR 72 Result Comment: Non- GFR Calc LAB L501.1115 >60 mL/min Normal EST GFR - AA 87 Result Comment: GFR Calc LAB L501.1255 ml/min Normal Estimated CRCL 57.56 LAB L501.1300 10-20 RATIO Normal BUN/CRE 15.6 LAB L501.2200 8.5-10 mg/dL Normal .1 CA 8.9 LAB L501.5300 136-14 mmol/L Normal 5 NA 144 LAB L501.5600 3.5-5. mmol/L Normal 1 K 4.1 LAB L501.5900 98-107 mmol/L Normal CL 103 LAB L501.6100 21.0-3 mmol/L High 2.0 CO2 34.0 LAB L501.6200 5-15 Normal GAP 7 Performed By: #### L500.2500 #### [facility] [address] [place], [address] BEDSIDE GLUCOSE Collected: 11/22/2017 Status: F Source: [place] 6:21 AM [facility] REPOSITORY TYPE CODE TESTS RESULT OUT OF RANGE REFERENCE UNITS LAB L501.080 70-110 mg/dL Normal BEDSIDE GLU 94 Result Comment: MANAGEMENT OF PATIENT CARE PER NURSING PROTOCOL Performed By: #### L501.080 #### [facility] Point of Care [address] [facility] [place] [address] CBC W/DIFF, AUTOMATED Collected: 11/22/2017 Status: F Source: [place] 4:15 AM [facility] REPOSITORY TYPE CODE TESTS RESULT OUT OF RANGE REFERENCE UNITS LAB L100.1000 4.4-11.0 K/mm3 Low WBC 4.0 LAB L100.1200 4.2-5.4 M/mm3 Normal RBC 4.69 LAB L100.1300 12.0-15.0 g/dl Normal HGB 14.0 LAB L100.1400 37-47 % Normal HCT 46.0 LAB L100.1500 81-99 fL Normal MCV 98.1 LAB L100.1600 27.0-32.0 pg Normal MCH 29.9 LAB L100.1700 32-36 g/gl Low MCHC 30.4 LAB L100.1810 11.6-14.6 % High RDW CV 14.9 LAB L100.1820 35.1-43.9 fl High RDW SD 52.8 LAB L100.1900 150-450 K/mm3 Low PLT 122 LAB L100.2000 6.2-12.0 fl Normal MPV 10.0 LAB L100.2100 47-70 % Normal NEUT% 49.5 LAB L100.2200 19-41 % Normal LY% 23.1 LAB L100.2300 0-10 % High MONO% 22.3 LAB L100.2400 0-5 % Normal EO% 4.8 LAB L100.2500 0-1 % Normal BASO% 0.0 LAB L100.2550 0.0-0.9 % Normal IM GRAN % 0.300 Result Comment: IG% - Immature Granulocytes (promyelocytes, myelocytes and metamyelocytes) > 1% indicates that a LEFT SHIFT is Present. LAB L100.2620 2.0-7.7 X10 3/uL Normal Absolute Neut 2.0 LAB L100.2720 0.83-4.51 X10 3/ul Normal Absolute Lymph 0.92 Performed By: #### L100.0100 #### [facility] [address] [facility]. [place], [place], [address] BASIC METABOLIC Collected: 11/22/2017 Status: F Source: [place] PROFILE (BMP) 4:15 AM [facility] REPOSITORY TYPE CODE TESTS RESULT OUT OF RANGE REFERENCE UNITS LAB L501.0100 74-106 mg/dL Normal GLU 96 Result Comment: Please note revised GLUCOSE reference range effective 2017. LAB L501.1000 7-18 mg/dL Normal BUN 17 LAB L501.1100 0.55-1.02 mg/dL Normal CREAT,SERUM 0.74 Result Comment: The validity of the calculated GFR AND GFRAA in patients over 70 years has not been determined. Clinical correlation is essential. LAB L501.1110 >60 mL/min Normal EST GFR 82 Result Comment: Non- GFR Calc LAB L501.1115 >60 mL/min Normal EST GFR - AA 99 Result Comment: GFR Calc LAB L501.1255 ml/min Normal Estimated CRCL 47.78 LAB L501.1300 10-20 RATIO High BUN/CRE 22.8 LAB L501.2200 8.5-10 mg/dL Normal .1 CA 8.6 LAB L501.5300 136-14 mmol/L Normal 5 NA 145 LAB L501.5600 3.5-5. mmol/L Normal 1 K 4.2 LAB L501.5900 98-107 mmol/L Normal CL 104 LAB L501.6100 21.0-3 mmol/L High 2.0 CO2 36.0 LAB L501.6200 5-15 Normal GAP 5 Performed By: #### L500.2500 #### [facility] [address] [place], [address] BEDSIDE GLUCOSE Collected: 11/22/2017 Status: F Source: [place] 2:12 AM [facility] REPOSITORY TYPE CODE TESTS RESULT OUT OF RANGE REFERENCE UNITS LAB L501.080 70-110 mg/dL Normal BEDSIDE GLU 100 Result Comment: MANAGEMENT OF PATIENT CARE PER NURSING PROTOCOL Performed By: #### L501.080 #### [facility] Point of Care [address] [place] [address] BEDSIDE GLUCOSE Collected: 11/21/2017 Status: F Source: [place] 4:09 PM [facility] REPOSITORY TYPE CODE TESTS RESULT OUT OF RANGE REFERENCE UNITS LAB L501.080 70-110 mg/dL Normal BEDSIDE GLU 99 Result Comment: MANAGEMENT OF PATIENT CARE PER NURSING PROTOCOL Performed By: #### L501.080 #### [facility] Point of Care [address] [place] [address] OPERATIVE REPORT Observed: 11/21/2017 Status: F Source: [place] 11:39 AM [facility] REPOSITORY [facility] Medical Records Department [address] [place] [address] Operative Report 11/21/17 1137 MR#: [id number] Acct: [id number] Name: ALBA FLORES Rep #: [id number] : 1950 67 From: Lee Hernandez MD PCP: Sanchez Spears MD Status: ADM IN Y Location: ICU ICU02-1 Problem List (1) Atrial flutter Status: Acute (2) Chest pain Status: Deleted (3) Shortness of breath Status: Deleted (4) HTN (hypertension) Status: Chronic (5) GERD (gastroesophageal reflux disease) Status: Chronic (6) Morbid obesity Status: Chronic Operative Report Date of Procedure: 11/21/17 Procedure: Synchronized biphasic DC cardioversion Indications: Atrial flutter with rapid ventricular response Consent: Per the patient Premedications: Per Dr. Marshall Newman pulmonology/critical care medicine with etomidate 6 mg IV push total Procedure: Synchronized biphasic DC cardioversion: 50 J 1: Result: Atrial flutter Synchronized biphasic DC cardioversion: 200 J 1: Result: Sinus rhythm Complications: No apparent complications This note was generated with [employer]out Route[employer] software. It may contain incorrect words, spelling, and punctuation that were not noted in checking the note before signing. 11/21/17 1139 <Electronically signed by Lee Hernandez MD> Date Lee Hernandez MD CC: Charlie King D.O.; Lee Hernandez MD; Sanchez Spears MD Signed BLOOD GASES BY CPS Collected: 11/21/2017 Status: F Source: [place] 6:41 AM [facility] REPOSITORY TYPE CODE TESTS RESULT OUT OF RANGE REFERENCE UNITS LAB L9000.9990 Normal BLD GAS TYPE ART LAB L9001.1000 R Normal SITE Brachial LAB L9001.1010 Normal ERNA TEST POS LAB L9001.1048 Normal Mode CPAP PS LAB L9001.1050 O2 Normal Delivery Dev Vent LAB L9001.1074 40 Normal FI02 LAB L9001.1076 6 Normal PEEP LAB L9001.1078 PS 5 Normal LAB L9001.1104 Normal Results To ICU LAB L9001.1105 Normal Time Given 644 LAB L9001.1110 7.35-7.45 pH Normal - I-STAT 7.35 LAB L9001.1210 35-45 mmHg High pCO2 - ISTAT 58.6 LAB L9001.1310 75-100 mmHG Low 68 PO2 I-STAT LAB L9001.2300 22-26 mmol/L High HCO3 ISTAT 32.3 LAB L9001.2400 -2 to +2 mmol/L High BE 7 ISTAT LAB L9001.2415 mmol/L 34 Normal TOTAL CO2 ISTAT LAB L9001.2425 95-99 % Low 92 SO2 ISTAT Performed By: #### L9000.0800 #### [facility] Point of Care [facility] [address] [place], [place] [address] CBC W/DIFF, AUTOMATED Collected: 11/21/2017 Status: F Source: [place] 4:10 AM [facility] REPOSITORY TYPE CODE TESTS RESULT OUT OF RANGE REFERENCE UNITS LAB L100.1000 4.4-11.0 K/mm3 Normal WBC 4.5 LAB L100.1200 4.2-5.4 M/mm3 Normal RBC 4.60 LAB L100.1300 12.0-15.0 g/dl Normal HGB 13.8 LAB L100.1400 37-47 % Normal HCT 44.0 LAB L100.1500 81-99 fL Normal MCV 95.7 LAB L100.1600 27.0-32.0 pg Normal MCH 30.0 LAB L100.1700 32-36 g/gl Low MCHC 31.4 LAB L100.1810 11.6-14.6 % High RDW CV 15.2 LAB L100.1820 35.1-43.9 fl High RDW SD 52.6 LAB L100.1900 150-450 K/mm3 Low PLT 112 LAB L100.2000 6.2-12.0 fl Normal MPV 9.9 LAB L100.2100 47-70 % Low NEUT% 44.9 LAB L100.2200 19-41 % Normal LY% 27.8 LAB L100.2300 0-10 % High MONO% 21.8 LAB L100.2400 0-5 % High EO% 5.1 LAB L100.2500 0-1 % Normal BASO% 0.2 LAB L100.2550 0.0-0.9 % Normal IM GRAN % 0.200 Result Comment: IG% - Immature Granulocytes (promyelocytes, myelocytes and metamyelocytes) > 1% indicates that a LEFT SHIFT is Present. LAB L100.2620 2.0-7.7 X10 3/uL Normal Absolute Neut 2.0 LAB L100.2720 0.83-4.51 X10 3/ul Normal Absolute Lymph 1.25 Performed By: #### L100.0100 #### [facility] [address] [place], [place], [address] BASIC METABOLIC Collected: 11/21/2017 Status: F Source: [place] PROFILE ([facility]) 4:10 AM [facility] REPOSITORY TYPE CODE TESTS RESULT OUT OF RANGE REFERENCE UNITS LAB L501.0100 74-106 mg/dL High GLU 107 Result Comment: Fasting Glucose result from 100 to 125 mg/dL suggests IMPAIRED HOMEOSTASIS per A.D.A. criteria. Please note revised GLUCOSE reference range effective 2017. LAB L501.1000 7-18 mg/dL High BUN 26 LAB L501.1100 0.55-1.02 mg/dL Normal CREAT,SERUM 0.97 Result Comment: The validity of the calculated GFR AND GFRAA in patients over 70 years has not been determined. Clinical correlation is essential. LAB L501.1110 >60 mL/min Normal EST GFR 61 Result Comment: Non- GFR Calc LAB L501.1115 >60 mL/min Normal EST GFR - AA 73 Result Comment: GFR Calc LAB L501.1255 ml/min Normal Estimated CRCL 49.25 LAB L501.1300 10-20 RATIO High BUN/CRE 26.8 LAB L501.2200 8.5-10 mg/dL Low .1 CA 8.4 LAB L501.5300 136-14 mmol/L High 5 NA 147 LAB L501.5600 3.5-5. mmol/L Normal 1 K 4.4 LAB L501.5900 98-107 mmol/L Normal CL 107 LAB L501.6100 21.0-3 mmol/L High 2.0 CO2 34.0 LAB L501.6200 5-15 Normal GAP 6 Performed By: #### L500.2500 #### [facility] [address] [facility]. [facility] [id number] BEDSIDE GLUCOSE Collected: 11/21/2017 Status: F Source: [place] 12:08 AM [facility] REPOSITORY TYPE CODE TESTS RESULT OUT OF RANGE REFERENCE UNITS LAB L501.080 70-110 mg/dL Normal BEDSIDE GLU 98 Result Comment: MANAGEMENT OF PATIENT CARE PER NURSING PROTOCOL Performed By: #### L501.080 #### [facility] Point of Care [address] [place] [address] BEDSIDE GLUCOSE Collected: 11/20/2017 Status: F Source: [place] 5:25 PM [facility] REPOSITORY TYPE CODE TESTS RESULT OUT OF REFERENCE UNITS RANGE LAB L501.080 70-110 mg/dL High BEDSIDE GLU 112 Result Comment: MANAGEMENT OF PATIENT CARE PER NURSING PROTOCOL Performed By: #### L501.080 #### [facility] Point of Care [address] [place] [address] 12 LEAD ELECTROCARDIOGRAM Observed: 11/20/2017 Status: F Source: [place]ANE 3:53 PM [facility] REPOSIT[facility] Cardiovascular Services [address] [place] [address] 12 Lead EKG 11/15/17 1055 MR#: [id number] Acct: [id number] Name: ALBA FLORES Rep #: [id number] : 1950 67 From: Lee Hernandez MD Attending Dr: Billie Maciel Status: ADM IN Ordering Dr: Lee Hernandez MD Date: 11/15/17 Location: ICU Sex: F C Admitted: 11/14/17 Test Reason : AFLUTTER Blood Pressure : / mmHG Vent. Rate : 059 BPM Atrial Rate : 072 BPM P-R Int : 000 ms QRS Dur : 176 ms QT Int : 434 ms P-R-T Axes : 000 -76 -43 degrees QTc Int : 429 ms Junctional rhythm Left axis deviation Right bundle branch block Inferior [place], age undetermined, cannot be excluded Anterior [place], age undetermined, cannot be excluded Abnormal ECG Confirmed by MARY WALKER, LEE ([id number]), social media editor JERRICA HUITRON ([id number]) on 11/20/2017 3:52:52 PM Referred By: MTERE Confirmed By:LEE HERNANDEZ MD 11/20/17 155 Date Lee Hernandez MD CC: Billie Maciel; Lee Hernandez MD; Sanchez Spears MD Signed 12 LEAD ELECTROCARDIOGRAM Observed: 11/20/2017 Status: F Source: VANE 3:50 PM [facility] REPOSITORY [facility] Cardiovascular Services [address] [place] [address] 12 Lead EKG 11/16/17 0530 MR#: [id number] Acct: [id number] Name: ALBA FLORES Rep #: [id number] : [id number] From: Lee Hernandez MD Attending Dr: Billie Maciel Status: ADM IN Ordering Dr: Lee Hernandez MD Date: 11/16/17 Location: ICU Sex: F C Admitted: 11/14/17 Test Reason : AM EKG Blood Pressure : / mmHG Vent. Rate : 052 BPM Atrial Rate : 052 BPM P-R Int : 258 ms QRS Dur : 160 ms QT Int : 494 ms P-R-T Axes : 011 265 004 degrees QTc Int : 459 ms Sinus bradycardia with 1st degree A-V block Right bundle branch block Inferior infarct , age undetermined , cannot be excluded Anterolateral infarct , age undetermined, cannot be excluded Abnormal ECG Confirmed by MARY WALKER, LEE ([id number]), social media editor JERRICA HUITRON ([id number]) on 11/20/2017 3:49:40 PM Referred By: DR NEVAREZ Confirmed By:LEE HERNANDEZ MD 11/20/17 1549 Date Lee Hernandez MD CC: Billie Maciel; Lee Hernandez MD; Sanchez Spears MD Signed BEDSIDE GLUCOSE Collected: 11/20/2017 Status: F Source: [place] 12:15 PM [facility] REPOSITORY TYPE CODE TESTS RESULT OUT OF RANGE REFERENCE UNITS LAB L501.080 70-110 mg/dL Normal BEDSIDE GLU 109 Result Comment: MANAGEMENT OF PATIENT CARE PER NURSING PROTOCOL Performed By: #### L501.080 #### [facility] Point of Care [address] [facility]. [place], [place] [address] BEDSIDE GLUCOSE Collected: 11/20/2017 Status: F Source: [place] 6:18 AM [facility] REPOSITORY TYPE CODE TESTS RESULT OUT OF REFERENCE UNITS RANGE LAB L501.080 70-110 mg/dL High BEDSIDE GLU 135 Result Comment: MANAGEMENT OF PATIENT CARE PER NURSING PROTOCOL Performed By: #### L501.080 #### [facility] Point of Care [address] [facility] [place] [address] BASIC METABOLIC Collected: 11/20/2017 Status: F Source: [place] PROFILE (BMP) 4:15 AM [facility] REPOSITORY TYPE CODE TESTS RESULT OUT OF RANGE REFERENCE UNITS LAB L501.0100 74-106 mg/dL High GLU 132 Result Comment: Fasting Glucose result greater than or equal to 126 mg/dL suggests DIABETES MELLITUS per A.D.A. criteria. Please note revised GLUCOSE reference range effective 2017. LAB L501.1000 7-18 mg/dL High BUN 30 LAB L501.1100 0.55-1.02 mg/dL High CREAT,SERUM 1.10 Result Comment: The validity of the calculated GFR AND GFRAA in patients over 70 years has not been determined. Clinical correlation is essential. LAB L501.1110 >60 mL/min Low EST GFR 52 Result Comment: Non- GFR Calc LAB L501.1115 >60 mL/min Normal EST GFR - AA 63 Result Comment: GFR Calc LAB L501.1255 ml/min Normal Estimated CRCL 43.43 LAB L501.1300 10-20 RATIO High BUN/CRE 27.3 LAB L501.2200 8.5-10 mg/dL Low .1 CA 8.2 LAB L501.5300 136-14 mmol/L High 5 NA 148 LAB L501.5600 3.5-5. mmol/L Normal 1 K 4.0 LAB L501.5900 98-107 mmol/L High CL 109 LAB L501.6100 21.0-3 mmol/L Normal 2.0 CO2 32.0 LAB L501.6200 5-15 Normal GAP 7 Performed By: #### L500.2500 #### [facility] [address] [place], [address] CBC W/DIFF, AUTOMATED Collected: 11/20/2017 Status: F Source: [place] 4:15 AM [facility] REPOSITORY TYPE CODE TESTS RESULT OUT OF RANGE REFERENCE UNITS LAB L100.1000 4.4-11.0 K/mm3 Normal WBC 4.6 LAB L100.1200 4.2-5.4 M/mm3 Normal RBC 4.60 LAB L100.1300 12.0-15.0 g/dl Normal HGB 13.3 LAB L100.1400 37-47 % Normal HCT 44.0 LAB L100.1500 81-99 fL Normal MCV 95.7 LAB L100.1600 27.0-32.0 pg Normal MCH 28.9 LAB L100.1700 32-36 g/gl Low MCHC 30.2 LAB L100.1810 11.6-14.6 % High RDW CV 15.2 LAB L100.1820 35.1-43.9 fl High RDW SD 53.4 LAB L100.1900 150-450 K/mm3 Low PLT 116 LAB L100.2000 6.2-12.0 fl Normal MPV 10.3 LAB L100.2100 47-70 % Normal NEUT% 62.4 LAB L100.2200 19-41 % Low LY% 16.6 LAB L100.2300 0-10 % High MONO% 17.1 LAB L100.2400 0-5 % Normal EO% 3.5 LAB L100.2500 0-1 % Normal BASO% 0.2 LAB L100.2550 0.0-0.9 % Normal IM GRAN % 0.200 Result Comment: IG% - Immature Granulocytes (promyelocytes, myelocytes and metamyelocytes) > 1% indicates that a LEFT SHIFT is Present. LAB L100.2620 2.0-7.7 X10 3/uL Normal Absolute Neut 2.9 LAB L100.2720 0.83-4.51 X10 3/ul Low Absolute Lymph 0.76 Performed By: #### L100.0100 #### [facility] [address] [place], [place], [id number] BEDSIDE GLUCOSE Collected: 11/19/2017 Status: F Source: [place] 11:56 PM [facility] REPOSITORY TYPE CODE TESTS RESULT OUT OF REFERENCE UNITS RANGE LAB L501.080 70-110 mg/dL High BEDSIDE GLU 114 Result Comment: MANAGEMENT OF PATIENT CARE PER NURSING PROTOCOL Performed By: #### L501.080 #### [facility] Point of Care [address] [facility]. [place], [place] [address] VANCOMYCIN, TROUGH Collected: 11/19/2017 Status: F Source: [place] LEVEL 6:20 PM [facility] REPOSITORY Order Comment: Time Medication is to be Given? 1900 TYPE CODE TESTS RESULT OUT OF REFERENCE UNITS RANGE LAB L501.8820 5.0-15.0 ug/mL High VANCO, TROUGH 16.4 Result Comment: VANCOMYCIN STANDARED DRUG THERAPY TROUGH LEVEL: 5.0 - 15.0 mg/L VANCOMYCIN HIGH INTENSITY THERAPY TROUGH LEVEL: 15.0 - 20.0 mg/L High Intensity therapy recommended for serious life threatening infections include: - Meningitis -Endocarditis -Pneumonia (Ventilator/Healtcare Associated) -Sepsis PLEASE CONTACT PHARMACY SERVICES (#[id number]) FOR INTERPRETATION OF RESULTS. Performed By: #### L501.8820 #### [facility] [address] [place], [place], [address] BEDSIDE GLUCOSE Collected: 11/19/2017 Status: F Source: [place] 5:18 PM [facility] REPOSITORY TYPE CODE TESTS RESULT OUT OF REFERENCE UNITS RANGE LAB L501.080 70-110 mg/dL High BEDSIDE GLU 113 Result Comment: MANAGEMENT OF PATIENT CARE PER NURSING PROTOCOL Performed By: #### L501.080 #### [facility] Point of Care [address] [place] [place] [address] BEDSIDE GLUCOSE Collected: 11/19/2017 Status: F Source: [place] 11:27 AM [facility] REPOSITORY TYPE CODE TESTS RESULT OUT OF REFERENCE UNITS RANGE LAB L501.080 70-110 mg/dL High BEDSIDE GLU 135 Result Comment: MANAGEMENT OF PATIENT CARE PER NURSING PROTOCOL Performed By: #### L501.080 #### [facility] Point of Care [address] [place] [place] [address] CBC W/DIFF, AUTOMATED Collected: 11/19/2017 Status: F Source: [place] 3:45 AM [facility] REPOSITORY TYPE CODE TESTS RESULT OUT OF RANGE REFERENCE UNITS LAB L100.1000 4.4-11.0 K/mm3 Normal WBC 7.6 LAB L100.1200 4.2-5.4 M/mm3 Normal RBC 4.70 LAB L100.1300 12.0-15.0 g/dl Normal HGB 14.0 LAB L100.1400 37-47 % Normal HCT 44.3 LAB L100.1500 81-99 fL Normal MCV 94.3 LAB L100.1600 27.0-32.0 pg Normal MCH 29.8 LAB L100.1700 32-36 g/gl Low MCHC 31.6 LAB L100.1810 11.6-14.6 % High RDW CV 15.3 LAB L100.1820 35.1-43.9 fl High RDW SD 52.0 LAB L100.1900 150-450 K/mm3 Low PLT 145 LAB L100.2000 6.2-12.0 fl Normal MPV 9.4 LAB L100.2100 47-70 % High NEUT% 71.3 LAB L100.2200 19-41 % Low LY% 15.3 LAB L100.2300 0-10 % High MONO% 11.6 LAB L100.2400 0-5 % Normal EO% 1.5 LAB L100.2500 0-1 % Normal BASO% 0.0 LAB L100.2550 0.0-0.9 % Normal IM GRAN % 0.300 Result Comment: IG% - Immature Granulocytes (promyelocytes, myelocytes and metamyelocytes) > 1% indicates that a LEFT SHIFT is Present. LAB L100.2620 2.0-7.7 X10 3/uL Normal Absolute Neut 5.4 LAB L100.2720 0.83-4.51 X10 3/ul Normal Absolute Lymph 1.16 Performed By: #### L100.0100 #### [facility] [address], [address] BASIC METABOLIC Collected: 11/19/2017 Status: F Source: [place] PROFILE (BMP) 3:45 AM [facility] REPOSITORY TYPE CODE TESTS RESULT OUT OF RANGE REFERENCE UNITS LAB L501.0100 74-106 mg/dL High GLU 139 Result Comment: Fasting Glucose result greater than or equal to 126 mg/dL suggests DIABETES MELLITUS per A.D.A. criteria. Please note revised GLUCOSE reference range effective 2017. LAB L501.1000 7-18 mg/dL High BUN 40 LAB L501.1100 0.55-1.02 mg/dL High CREAT,SERUM 1.52 Result Comment: The validity of the calculated GFR AND GFRAA in patients over 70 years has not been determined. Clinical correlation is essential. LAB L501.1110 >60 mL/min Low EST GFR 36 Result Comment: Non- GFR Calc LAB L501.1115 >60 mL/min Low EST GFR - AA 44 Result Comment: GFR Calc LAB L501.1255 ml/min Normal Estimated CRCL 31.43 LAB L501.1300 10-20 RATIO High BUN/CRE 26.3 LAB L501.2200 8.5-10 mg/dL Low .1 CA 8.4 LAB L501.5300 136-14 mmol/L High 5 NA 150 LAB L501.5600 3.5-5. mmol/L Normal 1 K 4.0 LAB L501.5900 98-107 mmol/L High CL 111 LAB L501.6100 21.0-3 mmol/L Normal 2.0 CO2 30.0 LAB L501.6200 5-15 Normal GAP 9 Performed By: #### L500.2500 #### [facility] [address] [place], [address] BEDSIDE GLUCOSE Collected: 11/19/2017 Status: F Source: [place] 12:09 AM [facility] REPOSITORY TYPE CODE TESTS RESULT OUT OF RANGE REFERENCE UNITS LAB L501.080 70-110 mg/dL Normal BEDSIDE GLU 97 Result Comment: MANAGEMENT OF PATIENT CARE PER NURSING PROTOCOL Performed By: #### L501.080 #### [facility] Point of Care [address] [place] [address] BEDSIDE GLUCOSE Collected: 11/18/2017 Status: F Source: [place] 5:06 PM [facility] REPOSITORY TYPE CODE TESTS RESULT OUT OF RANGE REFERENCE UNITS LAB L501.080 70-110 mg/dL Normal BEDSIDE GLU 108 Result Comment: MANAGEMENT OF PATIENT CARE PER NURSING PROTOCOL Performed By: #### L501.080 #### [facility] Point of Care [address] [place] [address] ECHOCARDIOGRAM COMPLETE Observed: 11/18/2017 Status: F Source: [place] 12:19 PM [facility] REPOSITORY [facility] Cardiovascular Services [address] [facility] [address] Echo Complete W/ Contrast 11/18/17 0836 MR#: [id number] Acct: [id number] Name: ALBA FLORES Rep #: [id number] : 1950 67 From: Lee Hernandez MD Attending Dr: Miles Townsend DO Status: ADM IN Ordering Dr: Lee Hernandez MD Date: 11/17/17 Location: ICU Sex: F C Admitted: 11/14/17 Reason For Study: dyspnea/SOB Procedure This was a 2D Doppler, Color Flow transthoracic echocardiogram. The study was technically difficult. Contrast injection was performed. Exam performed portable in ICU/CCU. Left Ventricle Mildly dilated left ventricle. Mild concentric left ventricular hypertrophy. Left ventricular systolic function is normal. The estimated ejection fraction is 55 %. No regional wall motion abnormalities noted. Right Ventricle Moderately dilated right ventricle. Mild to moderate global right ventricular systolic dysfunction. Atria The left atrium is mildly enlarged. The right atrium is mildly enlarged. No doppler evidence for ASD. Mitral Valve There is mild mitral annular calcification. Extension of the mitral annular calcification onto the posterior mitral valve leaflet. Trivial mitral valve insufficiency. Tricuspid Valve Normal tricuspid valve. Trivial tricuspid valve insufficiency. Right ventricular systolic pressure estimated to be 35 mmHg. Aortic Valve Trisinus/trileaflet aortic valve. Mild focal aortic valve calcification. Pulmonic Valve The pulmonic valve is not well visualized. Trivial pulmonic valve insufficiency. Great Vessels Normal sized aortic root. Pericardium/Pleural No pericardial effusion. Medication Diluted definity 3.0ml given slow IV push to enhance endocardial definition. MMode/2D Measurements AND Calculations LVIDd: 5.6 cm IVSd: 1.4 cm Ao root diam: 3.2 cm LVIDs: 4.3 cm LVPWd: 1.3 cm LA dimension: 5.4 cm RVDd: 4.0 cm FS: 22.8 % LAV(MOD-sp2): 74.7 ml Doppler Measurements AND Calculations MV E max sergio: 104.4 cm/sec Ao V2 max: 172.2 cm/sec LV V1 max: 108.3 cm/sec MV A max sergio: 67.1 cm/sec Ao max P.9 mmHg LV V1 max P.7 mmHg MV E/A: 1.6 PA V2 max: 72.4 cm/sec TR max sergio: 260.3 cm/sec TR max P.3 mmHg Interpretation Summary The study was technically difficult. Contrast injection was performed. Mildly dilated left ventricle. Left ventricular systolic function is normal. The estimated ejection fraction is 55 %. Mild concentric left ventricular hypertrophy. Moderately dilated right ventricle. Mild to moderate global right ventricular systolic dysfunction. The left atrium is mildly enlarged. The right atrium is mildly enlarged. There is mild mitral annular calcification. Extension of the mitral annular calcification onto the posterior mitral valve leaflet. Trivial mitral valve insufficiency. Trivial tricuspid valve insufficiency. Trivial pulmonic valve insufficiency. Right ventricular systolic pressure estimated to be 35 mmHg. Transmitral diastolic flow velocities suggest diastolic dysfunction (pseudonormal pattern). Ordering Physician: Lee Hernandez Performed By: Laura Jonas RDCS, RVT 11/18/17 1218 Date Lee Hernandez MD CC: Miles Townsend DO; Lee Hernandez MD; Sanchez Spears MD Date Dictated: 11/18/17 0836 Date Transcribed: 11/18/171217 Acid Mixer: Signed BEDSIDE GLUCOSE Collected: 11/18/2017 Status: F Source: [place] 11:55 AM [facility] REPOSITORY TYPE CODE TESTS RESULT OUT OF RANGE REFERENCE UNITS LAB L501.080 70-110 mg/dL Normal BEDSIDE GLU 87 Result Comment: MANAGEMENT OF PATIENT CARE PER NURSING PROTOCOL Performed By: #### L501.080 #### [facility] Point of Care [address] [facility] [place] [address] STREP Observed: 11/18/2017 Status: F Source: [place] PNEUMONIAE ANTIG(UR,CSF) 6:50 AM [facility] REPOSITORY S pneumo Ag URINE INTERPRETATION Negative Urine Presumptive negative for pneumococcal pneumonia, suggesting no current or recent pneumococcal infection. Infection due to S pneumoniae cannot be ruled out since the antigen present in the sample may be below the detection limit of the test. Strep pneumo Test Negative URINE (See interpretation below) Performed By: #### M300.4600 #### [facility] [address] [facility] [place], [address] Observed: 11/18/2017 Status: F Source: [place] LEGIONELLA ANTIGEN 6:50 AM [facility] URINE REPOSITORY Specimen Source: URINE, [place] Legionella, UR Legionella Antigen result interpretation: Negative Presumptive negative for Legionella pneumophila serogroup 1 antigen in urine, suggesting no recent or current infection. Legionella Ag, Urine Negative (See interpretation below) Performed By: #### M300.4500 #### [facility] [address] [facility] [place], [address] Observed: 11/18/2017 Status: F Source: [place] CULTURE, URINE 6:50 AM [facility] REPOSITORY Urine Culture ORGANISM 1: Enterobacter cloacae complex [place] Count >100,000 ORGANISM 2: Klebsiella pneumoniae sp pneum [place] Count >100,000 Enterobacter cloacae complex: REACTION Amoxacillin/Clavulanic Acid $ >=32 R Cefazolin $ >=64 R Cefepime $ <=1 S Ceftriaxone $ <=1 S Ciprofloxacin $ <=0.25 S Ertapenim $$$ <=0.5 S Gentamicin $ <=1 S Imipenem *NF <=0.25 S Levofloxacin $ <=0.12 S Nitrofurantoin $ 32 S Piperacillin/Tazobactam $$ <=4 S Tobramycin $ <=1 S Trimethoprim/Sulfametho $ <=20 S (NF) indicates non-formulary drug at [facility]. Approval by Infectious Disease Specialist required before non-formulary drugs may be ordered and/or dispensed. Klebsiella pneumoniae sp pneum: REACTION Amoxacillin/Clavulanic Acid $ <=2 S Ampicillin $ >=32 R Ampicillin/Sulbactam $ <=2 S Cefazolin $ <=4 S Cefepime $ <=1 S Ceftriaxone $ <=1 S Ciprofloxacin $ <=0.25 S ESBL - Ertapenim $$$ <=0.5 S Gentamicin $ <=1 S Imipenem *NF <=0.25 S Levofloxacin $ <=0.12 S Nitrofurantoin $ 32 S Piperacillin/Tazobactam $$ <=4 S Tobramycin $ <=1 S Trimethoprim/Sulfametho $ <=20 S (NF) indicates non-formulary drug at [facility]. Approval by Infectious Disease Specialist required before non-formulary drugs may be ordered and/or dispensed. Performed By: #### M100.0650 #### [facility] [address] [facility] [place], [address] Observed: 11/18/2017 Status: F Source: [place] CULTURE, BLOOD (WB) 6:50 AM [facility] REPOSITORY BC No growth in 5 days. Performed By: #### M200.1000 #### [facility] [address] [facility] [place], [address] CONSULTATION Observed: 11/18/2017 Status: F Source: [place] 6:34 AM [facility] REPOSITORY [facility] Medical Records Department [address] [place] [address] Consultation 11/17/17 1247 MR#: [id number] Acct: [id number] Name: ALBA FLORES Rep #: [id number] : 1950 67 From: Charlie King DO PCP: Sanchez Spears MD Status: ADM IN Y Location: ICU ICU02-1 Reason for Consult Date of Consultation: 11/17/17 Reason for Consultation: Acute hypercarbic respiratory failure History of Present Illness: The patient is a 67-year-old female, with a history as outlined below, who presented to the emergency department November 14 with shortness of breath in the setting of atrial flutter with rapid ventricular rate. The patient was seen in consultation by cardiology. A rate control strategy was employed. Transesophageal echocardiogram was completed on November 15, after which time, the patient underwent bedside cardioversion. The patient was being medically optimized from a cardiology perspective. On the morning of November 17, the patient was noted to be less responsive than previous. An arterial blood gas was obtained which revealed a pH of 7.02 with a PCO2 of 114 and a PO2 of 93. The patient was reportedly only minimally responsive to noxious stimulation at that time. The patient was subsequently placed on BiPAP therapy with a pressure support setting of 16/10 cm of water. However, following several hours of noninvasive positive pressure ventilation, the patient remained hypercarbic and was essentially obtunded. Upon my examination of the patient, she was nonresponsive to verbal or tactile stimulation. Therefore, the decision was made to emergently transfer the patient to the medical intensive care unit. Although the patient did receive diuretics, her serum bicarbonate level has not fluctuated greatly from the time of her admission, at which time, she was noted to be 27. This morning, her bicarbonate was noted to be 31. Aside from mild hypernatremia and resolving renal insufficiency, no other significant metabolic derangements are present. The patient has not received any narcotics or respiratory depressing medications per my review of the MAR. Upon arrival to the ICU, the decision was made to emergently intubate the patient for airway protection, given her obtunded state. The patient was premedicated with 20 mg of etomidate. She was placed in appropriate sniffing position. Video laryngoscopy was performed, which revealed an anterior airway and a grade 3 view. A #8 endotracheal tube was placed in appropriate position. Positive color change was noted. Equal breath sounds were auscultated. The endotracheal tube was secured at 22 cm of the lip. Past Medical History Past Medical History (Chronic Problems): Chronic Problems Morbid obesity (Chronic) HTN (hypertension) (Chronic) GERD (gastroesophageal reflux disease) (Chronic) Allergies aspirin [ASA] Adverse Reaction (Verified 11/14/17 14:34) stomach burning and sick to stomach propoxyphene HCl [From Darvon] Adverse Reaction (Verified 11/14/17 14:34) i get dizzy and pass out Home Medications: Ambulatory Orders Medication Instructions Recorded Lisinopril [Zestril] 30 mg PO DAILY 07/02/16 [place]-3 Fatty Acids/Fish Oil [Fish 1 each PO DAILY 07/02/16 Surgical History: hysterectomy - total Psychiatric History: No pertinent psych hx 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 Patient Problems: Active and Suspected Problems Atrial flutter (Acute) Chest pain (Acute) Shortness of breath (Acute) Objective: The patient's most recent lab work, culture data and imaging studies have all been personally reviewed. Surface echocardiogram revealed mild concentric LVH with mild global left systolic dysfunction and an ejection fraction of 45%. Right ventricular systolic pressure was estimated to be 34 mmHg. - Physical Exam General: - - Intubated, sedated and mechanically ventilated currently. HEENT: Atraumatic, PERRLA, Normocephalic Oral: No Gingival or Mucosal Lesions/ Ulcerations, - - Edentulous Neck: Supple, No Nodes, Trachea Midline, - - Large neck circumference with redundant soft tissue. Lungs: No rhonchi, No wheeze, No rales, Diminished Cardiovascular: Regular rate, Regular Rhythm, Normal S1, Normal S2, No murmurs Abdomen: Bowel Sounds Present, Soft, Non Tender, Distended, Obese Extremities: No clubbing, No cyanosis, Edema - Trace LE Skin: No breakdown Musculoskeletal: No Tenderness to Palpation of Joints or Extremities, No Muscle Wasting Lymphatic: No Cervical, Supraclavicular, or Inguinal Adenopathy Neurological: - - Prior to intubation, the patient was noted to be obtunded and nonresponsive to verbal and tactile stimulation. Vital Signs Temp Pulse Resp BP Pulse Ox 98.4 F 62 16 123/55 H 95 11/17/17 11:50 11/17/17 11:50 11/17/17 11:50 11/17/17 11:50 11/17/17 11:50 Oxygen Flow Rate (L/min) 4 Oxygen Delivery Method Bi-pap Weight: 350 lb 3.198 oz Body Mass Index (BMI) 58.2 Intake and Output for Last 24 Hours Intake Total 868 / 868 1530 / 1530 100 / 100 Output Total 300 / 300 1900 / 1900 650 / 650 Balance 568 / 568 -370 / -370 -550 / -550 Laboratory Tests Past 24 Hrs Specimen Type ART Sample Site L Radial pH 7.02 L* Bicarbonate Actual 29.3 H POC Total CO2 33 Clinical Impression(s) from Imaging Studies Chest X-Ray 11/14/17 09:52 IMPRESSION: Cardiomegaly. Mild increased markings at the lung bases suggestive of linear atelectasis and/or scarring. Electronically Signed: Lewis Aguirre MD at 10:22 EDT Tel [phone], Service support , Chest CTA 11/15/17 14:45 IMPRESSION: Bilateral pleural effusions with bibasilar infiltration and/or atelectasis. Focal infiltrate in the posterior aspect of the exam of the left upper lobe as well as increased markings in the right middle lobe. Electronically Signed: Lewis Aguirre MD at 15:39 EDT Tel [phone], Service support , Chest X-Ray 11/17/17 08:16 IMPRESSION: Cardiomegaly. Bibasilar patchy infiltrates. Follow-up is recommended. Electronically Signed: Lewis Aguirre MD at 10:44 EDT Tel [phone], Service support , Assessment/Plan All Active Problems Atrial flutter (Acute) Chest pain (Acute) Shortness of breath (Acute) RECOMMENDATIONS: 1. Obtain repeat arterial blood gas in 1 hour. 2. Obtain and send sputum for culture. 3. Check comprehensive metabolic profile, TSH and ammonia level. 4. Continue fentanyl for sedation. Maintain RASS of -1 to 1. 5. Transition from p.o. Protonix to IV. 6. Obtain CT head to rule out intracranial process. IMPRESSIONS: 1. Acute hypoxemic and hypercarbic respiratory failure Unclear etiology for the patient's acute decompensation from a respiratory perspective. She does not have significant metabolic derangements, nor did she receive any sedating medications recently. Regardless, the patient was placed on BiPAP therapy, despite having a PCO2 level greater than 100. She was notably obtunded upon my examination and was transferred to the ICU where she was intubated. Will continue invasive mechanical ventilatory support, with plans to repeat arterial blood gas in 1 hour. Repeat plain film chest x-ray is concerning for potential evolving infiltrates bilaterally versus pulmonary edema. Nevertheless, the patient is currently without evidence of a leukocytosis and is afebrile. Therefore, we will hold off on starting antibiotics at this time. Sedation will be initiated to maintain a RASS of -1 to 1. 2. Encephalopathy The patient has profound hypercapnia on ABG. Given that the patient is currently anticoagulated and recently underwent a NEREYDA cardioversion, would recommend dedicated head imaging to evaluate for potential stroke versus intracranial bleed. We will also plan to check a comprehensive metabolic profile, along with ammonia and TSH level. 3. Atrial flutter with rapid ventricular response/underlying cardiomyopathy Continue current medical management per cardiology recommendations. Repeat echocardiogram is currently pending. 4. Suspected sleep disordered breathing The patient undoubtedly needs to be followed up as an outpatient to undergo a formal diagnostic polysomnogram. However, in the interim, when the patient is appropriate for a trial of extubation, will initiate empiric BiPAP therapy on a nocturnal basis. 5. Acute kidney injury Potentially secondary to contrast administration multiple days ago. Her renal function has been slowly improving with time. Urine output is currently appropriate. We will continue to monitor. No indication for renal replacement therapy at this time. 6. Super morbid obesity/GERD/hypertension Complicates care, management, recovery and prognosis. Hold antihypertensives at this time. Transition to Protonix IV. Obtain nutrition consultation for tube feed recommendations. TIME: 60 minutes of critical care time, independent of procedures, was spent addressing the patient's acute hypoxemic and hypercarbic respiratory failure, encephalopathy, atrial flutter with rapid ventricular response, suspected sleep disordered breathing, acute kidney injury, review of all data and collaboration with the care team. ([id number]) Code Visit 9xxxx: [id number] Critical care first hour 11/18/17 0634 <Electronically signed by Charlie King DO> Date Charlie King DO Cosigner Signature (if applicable): Date CC: Charlie King D.O.; Lee Hernandez MD; Sanchez Spears MD Signed BLOOD GASES BY CPS Collected: 11/18/2017 Status: F Source: [place]ANE 6:29 AM [facility] REPOSITORY TYPE CODE TESTS RESULT OUT OF RANGE REFERENCE UNITS LAB L9000.9990 Normal BLD GAS TYPE ART LAB L9001.1000 Normal SITE R Radial LAB L9001.1010 Normal ERNA TEST POS LAB L9001.1048 Normal Mode A-C LAB L9001.1050 O2 Normal Delivery Dev Vent LAB L9001.1060 MV Normal 6.00 LAB L9001.1065 Vt Normal 400 LAB L9001.1070 RR Normal 16 LAB L9001.1074 Normal FI02 60 LAB L9001.1076 Normal PEEP 12 LAB L9001.1104 Normal Results To ICU LAB L9001.1105 Normal Time Given 628 LAB L9001.1110 7.35-7.45 pH Normal - I-STAT 7.35 LAB L9001.1210 35-45 mmHg High pCO2 - ISTAT 46.8 LAB L9001.1310 75-100 mmHG Low PO2 I-STAT 60 LAB L9001.2300 22-26 mmol/L Normal HCO3 ISTAT 25.7 LAB L9001.2400 -2 to +2 mmol/L BE Normal ISTAT 0 LAB L9001.2415 mmol/L Normal TOTAL CO2 27 ISTAT LAB L9001.2425 95-99 % Low SO2 ISTAT 89 Performed By: #### L9000.0800 #### [facility] Point of Care [address] [place] [address] CHEST 1 VIEW Observed: 11/18/2017 Status: F Source: VANE (PORTABLE) 6:16 AM [facility] REPOSITORY [facility] Imaging Services [address] [place] [address] Chest 1 View (Portable) MR#: [id number] Acct: [id number] Name: ALBA FLORES Rep #: [id number] : 1950 F 67 From: Clarke Fragoso MD PCP: Sanchez Spears MD Status: ADM IN Study: Chest 1 View (Portable) Date of Exam: 11/18/17 Exam# [id number] Ordering Dr: Charlie King DO STUDY: X-RAY CHEST REASON FOR EXAM: Female, 67 years old. Shortness of breath TECHNIQUE: Single AP portable view of the chest. COMPARISON: November 17, 2017 FINDINGS: Endotracheal tube, 3 cm above the kris. Feeding tube extends to the stomach in the abdomen. There are monitoring and support devices. PICC on the left extending to the lower superior vena cava. Bilateral lower lung airspace opacities. Small pleural effusions. There is mild cardiac enlargement. Normal mediastinum and angi. Normal visualized pulmonary arteries. Normal visualized aortic arch and descending thoracic aorta. There are diffuse degenerative changes of the visualized thoracic spine. Normal visualized ribs, clavicles, and shoulders. There is no demonstrated abnormality of the visualized soft tissue structures of the upper abdomen. RAD/Chest 1 View (Portable) IMPRESSION: Bilateral infiltrates or edema and pleural effusions with worsening. Electronically Signed: Clarke Fragoso MD at 8:24 EDT , Service support , CC: Charlie King D.O.; Sanchez Spears MD Acid Mixer: Signed CBC W/DIFF, AUTOMATED Collected: 11/18/2017 Status: F Source: VANE 4:40 AM [facility] REPOSITORY TYPE CODE TESTS RESULT OUT OF RANGE REFERENCE UNITS LAB L100.1000 4.4-11.0 K/mm3 Normal WBC 7.5 LAB L100.1200 4.2-5.4 M/mm3 Normal RBC 4.87 LAB L100.1300 12.0-15.0 g/dl Normal HGB 14.5 LAB L100.1400 37-47 % High HCT 47.2 LAB L100.1500 81-99 fL Normal MCV 96.9 LAB L100.1600 27.0-32.0 pg Normal MCH 29.8 LAB L100.1700 32-36 g/gl Low MCHC 30.7 LAB L100.1810 11.6-14.6 % High RDW CV 15.3 LAB L100.1820 35.1-43.9 fl High RDW SD 54.0 LAB L100.1900 150-450 K/mm3 Low PLT 132 LAB L100.2000 6.2-12.0 fl Normal MPV 10.1 LAB L100.2100 47-70 % High NEUT% 75.4 LAB L100.2200 19-41 % Low LY% 12.0 LAB L100.2300 0-10 % High MONO% 11.0 LAB L100.2400 0-5 % Normal EO% 1.2 LAB L100.2500 0-1 % Normal BASO% 0.1 LAB L100.2550 0.0-0.9 % Normal IM GRAN % 0.300 Result Comment: IG% - Immature Granulocytes (promyelocytes, myelocytes and metamyelocytes) > 1% indicates that a LEFT SHIFT is Present. LAB L100.2620 2.0-7.7 X10 3/uL Normal Absolute Neut 5.6 LAB L100.2720 0.83-4.51 X10 3/ul Normal Absolute Lymph 0.90 Performed By: #### L100.0100 #### [facility] [address] [place], [place], [address] BASIC METABOLIC Collected: 11/18/2017 Status: F Source: [place] PROFILE (BMP) 4:40 AM [facility] REPOSITORY TYPE CODE TESTS RESULT OUT OF RANGE REFERENCE UNITS LAB L501.0100 74-106 mg/dL Normal GLU 91 Result Comment: Please note revised GLUCOSE reference range effective 2017. LAB L501.1000 7-18 mg/dL High BUN 36 LAB L501.1100 0.55-1.02 mg/dL High CREAT,SERUM 1.16 Result Comment: The validity of the calculated GFR AND GFRAA in patients over 70 years has not been determined. Clinical correlation is essential. LAB L501.1110 >60 mL/min Low EST GFR 49 Result Comment: Non- GFR Calc LAB L501.1115 >60 mL/min Low EST GFR - AA 59 Result Comment: GFR Calc LAB L501.1255 ml/min Normal Estimated CRCL 41.19 LAB L501.1300 10-20 RATIO High BUN/CRE 31.0 LAB L501.2200 8.5-10 mg/dL Normal .1 CA 8.6 LAB L501.5300 136-14 mmol/L High 5 NA 150 LAB L501.5600 3.5-5. mmol/L Normal 1 K 4.3 LAB L501.5900 98-107 mmol/L High CL 114 LAB L501.6100 21.0-3 mmol/L Normal 2.0 CO2 29.0 LAB L501.6200 5-15 Normal GAP 7 Performed By: #### L500.2500, L501.2300, L501.5200 #### [facility] [address] [place], [address] PHOSPHORUS Collected: 11/18/2017 Status: F Source: [place] 4:40 AM [facility] REPOSITORY TYPE CODE TESTS RESULT OUT OF RANGE REFERENCE UNITS LAB L501.2300 2.5-4.9 mg/dL Low PHOS 2.2 Performed By: #### L500.2500, L501.2300, L501.5200 #### [facility] [address] [place], [address] MAGNESIUM Collected: 11/18/2017 Status: F Source: [place] 4:40 AM [facility] REPOSITORY TYPE CODE TESTS RESULT OUT OF RANGE REFERENCE UNITS LAB L501.5200 1.6-2.6 mg/dL Normal MG 2.1 Performed By: #### L500.2500, L501.2300, L501.5200 #### [facility] [address] [place], [address] CPK TOTAL, CREATINE Collected: 11/18/2017 Status: F Source: [place] KINASE 4:40 AM [facility] REPOSITORY Order Comment: Comments: DC when propofol is d/c'd Comments: DC when propofol is d/c'd TYPE CODE TESTS RESULT OUT OF RANGE REFERENCE UNITS LAB L501.3620 26-192 U/L Normal CPK TOTAL 56 Performed By: #### L501.3620, L501.5000 #### [facility] [address] [place], [address] TRIGLYCERIDES Collected: 11/18/2017 Status: F Source: VANE 4:40 AM [facility] REPOSITORY Order Comment: Comments: DC when propofol is d/c'd Comments: DC when propofol is d/c'd TYPE CODE TESTS RESULT OUT OF RANGE REFERENCE UNITS LAB L501.5000 mg/dL Normal TRIG 115 Result Comment: The drugs N-Acetylcysteine and Metamizole may falsely depress this assay. Serum Triglycerides Reference Interval Normal <150 mg/dL Borderline high 150 - 199 mg/dL High 200 - 499 mg/dL Very High > or = 500 mg/dL Performed By: #### L501.3620, L501.5000 #### [facility] [address] [place], [address] BNP,B-TYPE NATRIURETIC Collected: 11/18/2017 Status: F Source: [place] PEPTIDE 4:40 AM [facility] REPOSITORY TYPE CODE TESTS RESULT OUT OF RANGE REFERENCE UNITS LAB L503.6620 0-100 pg/mL High B-TYPE 159.1 MERCEDES PEP Performed By: #### L503.6620 #### [facility] [address] [place], [address] Observed: 11/18/2017 Status: F Source: [place] CULTURE, SPUTUM 1:50 AM [facility] REPOSITORY Gram Stain Acceptable Specimen? Yes (<25 Epithelial cells per/lpf) Gram Stain 2+ White Blood Cells 1+ Epithelial cells 2+ Gram negative rods 2+ Gram positive cocci Resp. Culture Ampicillin can be used for Beta-Lactamase negative isolates. Trimeth/Sulfa, Chloramphenicol, Cefotaxime, Ciprofloxacin, Amoxicillin/Clavulanic Acid,and Oral 2nd/3rd Generation Cephlosporins are effective against both Beta-Lactamase positive and Beta-Lactamase negative isolates. ORGANISM 1: Haemophilus influenzae Amount Growth 3+ Beta Lactamase Negative Performed By: #### M100.0800 #### [facility] [address] [place], [address] VENOUS BLOOD GAS Collected: 11/17/2017 Status: F Source: [place]ANE 10:14 PM [facility] REPOSITORY TYPE CODE TESTS RESULT OUT OF RANGE REFERENCE UNITS LAB L9000.9990 Normal BLD GAS TYPE SUKHDEEP LAB L9001.1000 L Normal SITE Brachial LAB L9001.1050 O2 Normal Delivery Dev Vent LAB L9001.1060 MV Normal 6.00 LAB L9001.1065 Vt Normal 400 LAB L9001.1070 RR 16 Normal LAB L9001.1074 40 Normal FI02 LAB L9001.1076 5 Normal PEEP LAB L9001.1104 Normal Results To ICU MD LAB L9001.1105 Normal Time Given 2210 LAB L9002.1110 7.32-7.42 Normal VBGpH - I-STAT 7.34 LAB L9002.1212 41-51 mmHg High VBG pCO2 - 51.1 ISTA LAB L9002.1310 25-40 mmHg 35 Normal VBG PO2 I-STAT LAB L9002.2300 22-26 mmol/L High 28 VBG HCO3 ISTAT LAB L9002.2400 -1.0-3.5 mmol/L 2 Normal VBG BE ISTAT LAB L9002.2410 50-70 % 62 Normal VBG SO2 ISTAT LAB L9002.2415 23-33 mmol/L [address] ISTAT Performed By: #### L9000.0810 #### [facility] Point of Care [address] [place] [address] M R STAPH AUREUS Collected: 11/17/2017 Status: F Source: V[place] DNA BY PCR 9:41 PM [facility] REPOSITORY TYPE CODE TESTS RESULT OUT OF RANGE REFERENCE UNITS LAB L8200.1100 Negative Normal MRSA Negative RESULT Performed By: #### L8200.1000 #### [facility] [address] [place], [address] CBC W/DIFF, AUTOMATED Collected: 11/17/2017 Status: F Source: [place]ANE 6:15 PM [facility] REPOSITORY TYPE CODE TESTS RESULT OUT OF RANGE REFERENCE UNITS LAB L100.1000 4.4-11.0 K/mm3 Normal WBC 7.4 LAB L100.1200 4.2-5.4 M/mm3 Normal RBC 4.81 LAB L100.1300 12.0-15.0 g/dl Normal HGB 14.3 LAB L100.1400 37-47 % High HCT 48.2 LAB L100.1500 81-99 fL High MCV 100.2 LAB L100.1600 27.0-32.0 pg Normal MCH 29.7 LAB L100.1700 32-36 g/gl Low MCHC 29.7 LAB L100.1810 11.6-14.6 % High RDW CV 15.3 LAB L100.1820 35.1-43.9 fl High RDW SD 56.2 LAB L100.1900 150-450 K/mm3 Low PLT 131 LAB L100.2000 6.2-12.0 fl Normal MPV 9.9 LAB L100.2100 47-70 % High NEUT% 73.7 LAB L100.2200 19-41 % Low LY% 13.7 LAB L100.2300 0-10 % High MONO% 11.3 LAB L100.2400 0-5 % Normal EO% 0.8 LAB L100.2500 0-1 % Normal BASO% 0.1 LAB L100.2550 0.0-0.9 % Normal IM GRAN % 0.400 Result Comment: IG% - Immature Granulocytes (promyelocytes, myelocytes and metamyelocytes) > 1% indicates that a LEFT SHIFT is Present. LAB L100.2620 2.0-7.7 X10 3/uL Normal Absolute Neut 5.4 LAB L100.2720 0.83-4.51 X10 3/ul Normal Absolute Lymph 1.01 Performed By: #### L100.0100 #### [facility] [address] [place], [address] COMPREHENSIVE METABOLIC Collected: 11/17/2017 Status: F Source: [facility] 6:15 PM [facility] REPOSITORY TYPE CODE TESTS RESULT OUT OF RANGE REFERENCE UNITS LAB L501.0100 74-106 mg/dL Normal GLU 95 Result Comment: Please note revised GLUCOSE reference range effective 2017. LAB L501.1000 7-18 mg/dL High BUN 38 LAB L501.1100 0.55-1.02 mg/dL High CREAT,SERUM 1.47 Result Comment: The validity of the calculated GFR AND GFRAA in patients over 70 years has not been determined. Clinical correlation is essential. LAB L501.1110 >60 mL/min Low EST GFR 37 Result Comment: Non- GFR Calc LAB L501.1115 >60 mL/min Low EST GFR - AA 45 Result Comment: GFR Calc LAB L501.1255 ml/min Normal Estimated CRCL 32.50 LAB L501.1300 10-20 RATIO High BUN/CRE 25.9 LAB L501.1500 6.4-8. g/dL Low 2 T PROT 6.1 LAB L501.1800 3.2-5. g/dL Low 0 ALB 2.7 LAB L501.1950 2.2-4. g/dL Normal 2 GLOB 3.4 LAB L501.2000 0.9-2. RATIO Low 4 A/G 0.8 LAB L501.2200 8.5-10 mg/dL Normal .1 CA 8.6 LAB L501.4100 15-37 U/L Normal AST 22 LAB L501.4305 45-117 U/L Normal ALK P 111 LAB L501.4405 13-56 U/L Normal ALT 45 LAB L501.4600 0.20-1 mg/dL Normal .00 T BILI 0.50 LAB L501.5300 136-14 mmol/L High 5 NA 147 LAB L501.5600 3.5-5. mmol/L Normal 1 K 5.0 LAB L501.5900 98-107 mmol/L High CL 112 LAB L501.6100 21.0-3 mmol/L Normal 2.0 CO2 31.0 LAB L501.6200 5-15 Low GAP 4 Performed By: #### L500.4050, L501.4010, L501.9520 #### [facility] [address] [place], [address] TROPONIN-I Collected: 11/17/2017 Status: F Source: [place] 6:15 PM [facility] REPOSITORY TYPE CODE TESTS RESULT OUT OF RANGE REFERENCE UNITS LAB L501.4010 <0.045 ng/mL Normal < 0.015 TROPONIN-I Result Comment: TROPONIN-I EXPECTED VALUES <0.045 Negative 0.045 - 0.590 Consistent with Cardiac Damage > OR = 0.600 Critical Value Not every elevated troponin is indicative of [place]. These values should be used with clinical judgement in examining the patient's clinical picture for diagnosis. To establish a diagnosis of [place] versus myocardial injury, there must be a demonstrated rise and/or fall in the troponin values, in addition to ischemic symptoms, EKG changes, new regional wall motion abnormality, and/or angiographical evidence. PLEASE NOTE: REFERENCE RANGES EDITED 17 Performed By: #### L500.4050, L501.4010, L501.9520 #### [facility] [address] [place], [address] THYROID STIM HORMONE Collected: 11/17/2017 Status: F Source: [place] (TSH) 6:15 PM [facility] REPOSITORY TYPE CODE TESTS RESULT OUT OF RANGE REFERENCE UNITS LAB L501.9520 0.358-3.74 uIU/mL Normal TSH 0.96 Performed By: #### L500.4050, L501.4010, L501.9520 #### [facility] [address] [place], [address] CHEST 1 VIEW Observed: 11/17/2017 Status: F Source: [place] (PORTABLE) 1:56 PM [facility] REPOSITORY [facility] Imaging Services [address] [place] [address] Chest 1 View (Portable) MR#: [id number] Acct: [id number] Name: ALBA FLORES Rep #: [id number] : 1950 F 67 From: Clarke Fragoso MD PCP: Sanchez Spears MD Status: ADM IN Study: Chest 1 View (Portable) Date of Exam: 11/17/17 Exam# [id number] Ordering Dr: Charlie King DO STUDY: X-RAY CHEST REASON FOR EXAM: Female, 67 years old. Tube placement. TECHNIQUE: Single AP portable view of the chest. COMPARISON: November 17, 2017. FINDINGS: Endotracheal tube, 0.5 cm above the kris. Feeding tube extends to the stomach in the upper abdomen Bilateral lower lung airspace opacities. Small bilateral pleural effusions. There is moderate cardiac enlargement. Normal mediastinum and angi. Normal visualized pulmonary arteries. Normal visualized aortic arch and descending thoracic aorta. There are diffuse degenerative changes of the visualized thoracic spine. Normal visualized ribs, clavicles, and shoulders. There is no demonstrated abnormality of the visualized soft tissue structures of the upper abdomen. RAD/Chest 1 View (Portable) IMPRESSION: Endotracheal tube and feeding tube placement. Bilateral infiltrates or edema and small effusions. Electronically Signed: Clarke Fragoso MD at 14:46 EDT , Service support , CC: Charlie King D.O.; Sanchez Spears MD Acid Mixer: Signed BRAIN/HEAD WITHOUT Observed: 11/17/2017 Status: F Source: [place] CONTRAST 1:48 PM [facility] REPOSITORY [facility] Imaging Services [address] [address] Brain/Head without Contrast MR#: [id number] Acct: [id number] Name: ALBA FLORES Rep #: [id number] : 1950 F 67 From: Kevin Newsome MD PCP: Sanchez Spears MD Status: ADM IN Study: Brain/Head without Contrast Date of Exam: 11/17/17 Exam# [id number] Ordering Dr: Charlie King DO STUDY: CT BRAIN WITHOUT CONTRAST REASON FOR EXAM: Female, 67 years old. Altered mental status RADIATION DOSAGE (If Supplied By Facility): CTDIvol = ( 44.99 ) mGy, DLP = ( 947.97 ) mGycm TECHNIQUE: Transaxial CT imaging of the brain was performed without administration of intravenous contrast material. Individualized dose optimization techniques were used for this CT. COMPARISON: None. FINDINGS: Endotracheal and nasogastric tubes are present. Normal calvarium. Normal size ventricles and extra-axial spaces for the patient's age. There are areas of decreased attenuation within the white matter tracts of the supratentorial brain, consistent with microvascular disease changes. Normal basal ganglia and thalami. Normal brainstem. Normal cerebellum. There is no intracranial hemorrhage. There are no findings of an acute ischemic infarction. Normal visualized paranasal sinuses. CT/Brain/Head without Contrast IMPRESSION: 1. Chronic involutional changes of the brain. 2. Nasogastric and endotracheal tubes are noted. 3. There is no intracranial hemorrhage or evidence of acute infarct. The visualized paranasal sinuses appear within normal limits. Electronically Signed: Kevin Newsome MD at 16:52 EDT , Service support , CC: Charlie King D.O.; Sanchez Spears MD Acid Mixer: Signed BLOOD GASES BY CPS Collected: 11/17/2017 Status: F Source: [place] 12:45 PM [facility] REPOSITORY TYPE CODE TESTS RESULT OUT OF RANGE REFERENCE UNITS LAB L9000.9990 Normal BLD GAS TYPE ART LAB L9001.1000 Normal SITE R Radial LAB L9001.1010 Normal ERNA TEST POS LAB L9001.1050 O2 Normal Delivery Dev Bi / C PAP LAB L9001.1070 RR Normal 19 LAB L9001.1074 Normal FI02 40 LAB L9001.1088 Normal IPAP 16 LAB L9001.1090 Normal EPAP 10 LAB L9001.1104 Normal Results To HOSP LAB L9001.1105 Normal Time Given 1240 LAB L9001.1110 7.35-7.45 Low pH alert - I-STAT 7.10 LAB L9001.1210 35-45 mmHg High alert pCO2 - ISTAT 96.8 LAB L9001.1310 75-100 mmHG Low PO2 I-STAT 71 LAB L9001.2300 22-26 mmol/L High HCO3 ISTAT 29.7 LAB L9001.2400 -2 to +2 mmol/L BE Normal ISTAT 0 LAB L9001.2415 mmol/L Normal TOTAL CO2 33 ISTAT LAB L9001.2425 95-99 % Low SO2 ISTAT 85 Performed By: #### L9000.0800 #### [facility] Point of Care [address] [place] [address] BLOOD GASES BY CPS Collected: 11/17/2017 Status: F Source: [place] 10:13 AM [facility] REPOSITORY TYPE CODE TESTS RESULT OUT OF RANGE REFERENCE UNITS LAB L9000.9990 Normal BLD GAS TYPE ART LAB L9001.1000 Normal SITE L Radial LAB L9001.1010 Normal ERNA TEST POS LAB L9001.1050 O2 Normal Delivery Dev Nasal Can LAB L9001.1055 /min Normal LPM 4.0 LAB L9001.1104 Normal Results To HOSP MD LAB L9001.1105 Normal Time Given 1012 LAB L9001.1110 7.35-7.45 Low pH alert - I-STAT 7.02 LAB L9001.1210 35-45 mmHg High alert pCO2 - ISTAT 114.7 LAB L9001.1310 75-100 mmHG Normal PO2 I-STAT 93 LAB L9001.2300 22-26 mmol/L High HCO3 ISTAT 29.3 LAB L9001.2400 -2 to +2 mmol/L BE Normal ISTAT -2 LAB L9001.2415 mmol/L Normal TOTAL CO2 33 ISTAT LAB L9001.2425 95-99 % Low SO2 ISTAT 91 Performed By: #### L9000.0800 #### [facility] Point of Care [address] [place], [place] [address] BASIC METABOLIC Collected: 11/17/2017 Status: F Source: [place] PROFILE (BMP) 6:45 AM [facility] REPOSITORY TYPE CODE TESTS RESULT OUT OF RANGE REFERENCE UNITS LAB L501.0100 74-106 mg/dL High GLU 115 Result Comment: Fasting Glucose result from 100 to 125 mg/dL suggests IMPAIRED HOMEOSTASIS per A.D.A. criteria. Please note revised GLUCOSE reference range effective 2017. LAB L501.1000 7-18 mg/dL High BUN 40 LAB L501.1100 0.55-1.02 mg/dL High CREAT,SERUM 1.55 Result Comment: The validity of the calculated GFR AND GFRAA in patients over 70 years has not been determined. Clinical correlation is essential. LAB L501.1110 >60 mL/min Low EST GFR 35 Result Comment: Non- GFR Calc LAB L501.1115 >60 mL/min Low EST GFR - AA 43 Result Comment: GFR Calc LAB L501.1255 ml/min Normal Estimated CRCL 30.82 LAB L501.1300 10-20 RATIO High BUN/CRE 25.8 LAB L501.2200 8.5-10 mg/dL Normal .1 CA 8.9 LAB L501.5300 136-14 mmol/L High 5 NA 147 LAB L501.5600 3.5-5. mmol/L Normal 1 K 4.8 LAB L501.5900 98-107 mmol/L High CL 111 LAB L501.6100 21.0-3 mmol/L Normal 2.0 CO2 31.0 LAB L501.6200 5-15 Normal GAP 5 Performed By: #### L500.2500 #### [facility] [address] [place], [address] CHEST PA AND LATERAL Observed: 11/17/2017 Status: F Source: [place] 2:02 AM [facility] REPOSITORY [facility] Imaging Services [address] [place] [address] Chest PA and Lateral MR#: [id number] Acct: [id number] Name: ALBA FLORES Rep #: [id number] : 1950 F 67 From: Lewis Aguirre MD PCP: Sanchez Spears MD Status: ADM IN Study: Chest PA and Lateral Date of Exam: 11/17/17 Exam# [id number] Ordering Dr: Ave Boland STUDY: X-RAY CHEST REASON FOR EXAM: Female, 67 years old. Shortness of breath. TECHNIQUE: AP and lateral views of the chest. COMPARISON: Comparison is made with prior study dated November 14, 2017. FINDINGS: The now is evidence of bibasilar patchy infiltrates. There is blunting of left costophrenic angle. There is moderate cardiac enlargement. Normal mediastinum and angi. Normal visualized pulmonary arteries. There is atherosclerotic tortuosity of the aortic arch and descending thoracic aorta. Normal visualized thoracic spine. Normal visualized ribs, clavicles, and shoulders. There is no demonstrated abnormality of the visualized soft tissue structures of the upper abdomen. RAD/Chest PA and Lateral IMPRESSION: Cardiomegaly. Bibasilar patchy infiltrates. Follow-up is recommended. Electronically Signed: Lewis Aguirre MD at 10:44 EDT Tel [phone], Service support , CC: Ave Boland; Sanchez Spears MD Acid Mixer: Signed BASIC METABOLIC Collected: 11/16/2017 Status: F Source: [place] PROFILE (BMP) 2:10 PM [facility] REPOSITORY TYPE CODE TESTS RESULT OUT OF RANGE REFERENCE UNITS LAB L501.0100 74-106 mg/dL Normal GLU 105 Result Comment: Fasting Glucose result from 100 to 125 mg/dL suggests IMPAIRED HOMEOSTASIS per A.D.A. criteria. Please note revised GLUCOSE reference range effective 2017. LAB L501.1000 7-18 mg/dL High BUN 41 LAB L501.1100 0.55-1.02 mg/dL High CREAT,SERUM 1.76 Result Comment: The validity of the calculated GFR AND GFRAA in patients over 70 years has not been determined. Clinical correlation is essential. LAB L501.1110 >60 mL/min Low EST GFR 30 Result Comment: Non- GFR Calc LAB L501.1115 >60 mL/min Low EST GFR - AA 37 Result Comment: GFR Calc LAB L501.1255 ml/min Normal Estimated CRCL 27.15 LAB L501.1300 10-20 RATIO High BUN/CRE 23.3 LAB L501.2200 8.5-10 mg/dL Normal .1 CA 8.8 LAB L501.5300 136-14 mmol/L High 5 NA 146 LAB L501.5600 3.5-5. mmol/L Normal 1 K 5.0 LAB L501.5900 98-107 mmol/L High CL 111 LAB L501.6100 21.0-3 mmol/L Normal 2.0 CO2 28.0 LAB L501.6200 5-15 Normal GAP 7 Performed By: #### L500.2500 #### [facility] [address], [address] 12 LEAD ELECTROCARDIOGRAM Observed: 11/16/2017 Status: F Source: VANE 10:00 AM [facility] REPOSITORY [facility] Cardiovascular Services [address] [place] [address] 12 Lead EKG 11/14/17 0940 MR#: [id number] Acct: [id number] Name: ALBA FLORES Rep #: [id number] : 1950 67 From: Lee Hernandez MD Attending Dr: Kike Nevarez DO Status: ADM IN Ordering Dr: Gilberto Sky MD Date: 11/14/17 Location: [facility] Sex: F C Admitted: 11/14/17 Test Reason : CP Blood Pressure : / mmHG Vent. Rate : 145 BPM Atrial Rate : 147 BPM P-R Int : 098 ms QRS Dur : 166 ms QT Int : 340 ms P-R-T Axes : 000 270 015 degrees QTc Int : 528 ms Atrial flutter Left axis deviation Right bundle branch block Abnormal ECG Confirmed by MARY WALKER, LEE ([id number]), social media editor JERRICA HUITRON ([id number]) on 11/16/2017 10:00:22 AM Referred By: MARLA Confirmed By:LEE HERNANDEZ MD 11/16/17 1000 Date Lee Hernandez MD CC: Gilberto Sky MD; Kike Nevarez DO; Sanchez Spears MD Signed BASIC METABOLIC Collected: 11/16/2017 Status: F Source: [place] PROFILE (BMP) 7:20 AM [facility] REPOSITORY Order Comment: REDRAW. PREVIOUS SPECIMEN REJECTED DUE TO HEMOLYSIS. 11/16/17 0708 Kristyn Lloyd. TYPE CODE TESTS RESULT OUT OF RANGE REFERENCE UNITS LAB L501.0100 74-106 mg/dL High GLU 133 Result Comment: Fasting Glucose result greater than or equal to 126 mg/dL suggests DIABETES MELLITUS per A.D.A. criteria. Please note revised GLUCOSE reference range effective 2017. LAB L501.1000 7-18 mg/dL High BUN 39 LAB L501.1100 0.55-1.02 mg/dL High CREAT,SERUM 1.89 Result Comment: The validity of the calculated GFR AND GFRAA in patients over 70 years has not been determined. Clinical correlation is essential. LAB L501.1110 >60 mL/min Low EST GFR 28 Result Comment: Non- GFR Calc LAB L501.1115 >60 mL/min Low EST GFR - AA 34 Result Comment: GFR Calc LAB L501.1255 ml/min Normal Estimated CRCL 25.28 LAB L501.1300 10-20 RATIO High BUN/CRE 20.6 LAB L501.2200 8.5-10 mg/dL Normal .1 CA 8.8 LAB L501.5300 136-14 mmol/L Normal 5 NA 141 LAB L501.5600 3.5-5. mmol/L High 1 K 5.8 LAB L501.5900 98-107 mmol/L High CL 111 LAB L501.6100 21.0-3 mmol/L Normal 2.0 CO2 25.0 LAB L501.6200 5-15 Normal GAP 5 Performed By: #### L500.2500 #### [facility] [address] [place], [address] BASIC METABOLIC Collected: 11/16/2017 Status: F Source: [place] PROFILE (BMP) 5:30 AM [facility] REPOSITORY TYPE CODE TESTS RESULT OUT OF RANGE REFERENCE UNITS LAB L501.0100 74-106 mg/dL High GLU 137 Result Comment: Fasting Glucose result greater than or equal to 126 mg/dL suggests DIABETES MELLITUS per A.D.A. criteria. Please note revised GLUCOSE reference range effective 2017. LAB L501.1000 7-18 mg/dL High BUN 38 LAB L501.1100 0.55-1.02 mg/dL High CREAT,SERUM 1.93 Result Comment: The validity of the calculated GFR AND GFRAA in patients over 70 years has not been determined. Clinical correlation is essential. LAB L501.1110 >60 mL/min Low EST GFR 27 Result Comment: Non- GFR Calc LAB L501.1115 >60 mL/min Low EST GFR - AA 33 Result Comment: GFR Calc LAB L501.1255 ml/min Normal Estimated CRCL 24.75 LAB L501.1300 10-20 RATIO Normal BUN/CRE 19.7 LAB L501.2200 8.5-10 mg/dL Normal .1 CA 9.1 LAB L501.5300 136-14 mmol/L Normal 5 NA 145 LAB L501.5600 3.5-5. mmol/L High 1 K alert 6.0 Result Comment: Critical Result(s) Called at: 06:01:30 11/16/2017 by: GWENDOLYN CONDON TO PRICILLARN PCU LAB L501.5900 98-107 mmol/L High CL 110 LAB L501.6100 21.0-32.0 mmol/L Normal CO2 30.0 LAB L501.6200 5-15 Normal 5 GAP Performed By: #### L500.2500 #### [facility] [address] [place], [place], [address] CBC W/DIFF, AUTOMATED Collected: 11/16/2017 Status: F Source: [place] 5:30 AM [facility] REPOSITORY TYPE CODE TESTS RESULT OUT OF RANGE REFERENCE UNITS LAB L100.1000 4.4-11.0 K/mm3 Normal WBC 9.5 LAB L100.1200 4.2-5.4 M/mm3 Normal RBC 5.11 LAB L100.1300 12.0-15.0 g/dl High HGB 15.3 LAB L100.1400 37-47 % High HCT 50.9 LAB L100.1500 81-99 fL High MCV 99.6 LAB L100.1600 27.0-32.0 pg Normal MCH 29.9 LAB L100.1700 32-36 g/gl Low MCHC 30.1 LAB L100.1810 11.6-14.6 % High RDW CV 16.2 LAB L100.1820 35.1-43.9 fl High RDW SD 60.2 LAB L100.1900 150-450 K/mm3 Normal PLT 206 LAB L100.2000 6.2-12.0 fl High MPV 12.1 LAB L100.2100 47-70 % High NEUT% 79.3 LAB L100.2200 19-41 % Low LY% 11.6 LAB L100.2300 0-10 % Normal MONO% 8.0 LAB L100.2400 0-5 % Normal EO% 0.7 LAB L100.2500 0-1 % Normal BASO% 0.1 LAB L100.2550 0.0-0.9 % Normal IM GRAN % 0.300 Result Comment: IG% - Immature Granulocytes (promyelocytes, myelocytes and metamyelocytes) > 1% indicates that a LEFT SHIFT is Present. LAB L100.2620 2.0-7.7 X10 3/uL Normal Absolute Neut 7.6 LAB L100.2720 0.83-4.51 X10 3/ul Normal Absolute Lymph 1.11 Performed By: #### L100.0100 #### [facility] [address] [facility] [place], [address] CTA CHEST W/WO Observed: 11/15/2017 Status: F Source: [place] CONTRAST 12:19 PM [facility] REPOSITORY [facility] Imaging Services [address] [place] [address] CTA Chest W/WO Contrast MR#: [id number] Acct: [id number] Name: ALBA FLORES Rep #: [id number] : 1950 F 67 From: Lewis Aguirre MD PCP: Sanchez Spears MD Status: ADM IN Study: CTA Chest W/WO Contrast Date of Exam: 11/15/17 Exam# [id number] Ordering Dr: Lee Hernandez MD STUDY: CTA CHEST REASON FOR EXAM: Female, 67 years old. Elevated d-dimer. RADIATION DOSAGE (If Supplied By Facility): CTDIvol = ( 33.30 ) mGy, DLP = ( 986.96 ) mGycm TECHNIQUE: The examination was performed with the intravenous administration of 100 ml of Isovue 370 contrast material. Post-processing of the angiographic images was performed, with multiplanar reformation and 3D reconstruction. Individualized dose optimization techniques were used for this CT. COMPARISON: Comparison is made with prior chest radiograph dated November 14, 2017. FINDINGS: Normal enhancement of the main pulmonary artery and right and left pulmonary arteries. Normal enhancement of the bilateral peripheral pulmonary arteries. There is no demonstrated pulmonary embolism. Normal thoracic aorta and visualized great vessels. There is no demonstrated aortic dissection. There are calcifications of the coronary arteries. Normal mediastinum. Normal hilar regions. Normal visualized trachea and bronchi. The lungs are well expanded. There are small bilateral pleural effusions with bibasilar infiltration and/or atelectasis. Focal infiltrate in the posterior aspect of the lingular segment of the left upper lobe as well as increased markings in the right middle lobe. Normal pleura. Normal chest wall structures. There are degenerative changes of thoracic spine. Normal visualized upper abdomen. CT/CTA Chest W/WO Contrast IMPRESSION: Bilateral pleural effusions with bibasilar infiltration and/or atelectasis. Focal infiltrate in the posterior aspect of the exam of the left upper lobe as well as increased markings in the right middle lobe. Electronically Signed: Lewis Aguirre MD at 15:39 EDT Tel [phone], Service support , CC: Lee Hernandez MD; Sanchez Spears MD Acid Mixer: Signed OPERATIVE REPORT Observed: 11/15/2017 Status: F Source: [place] 11:42 AM [facility] REPOSITORY [facility] Medical Records Department [address] [place] [address] Operative Report 11/15/17 1140 MR#: [id number] Acct: [id number] Name: ALBA FLORES Rep #: [id number] : 1950 67 From: Lee Hernandez MD PCP: Sanchez Spears MD Status: ADM IN Location: [address] Problem List (1) Atrial flutter Status: Acute (2) Chest pain Status: Acute (3) Shortness of breath Status: Acute (4) HTN (hypertension) Status: Chronic (5) GERD (gastroesophageal reflux disease) Status: Chronic (6) Morbid obesity Status: Chronic Operative Report Date of Procedure: 11/15/17 Synchronized biphasic DC cardioversion: Indications: Atrial flutter with rapid ventricular response Consent: Per the patient Premedications: Per Dr. Charlie King of pulmonology and critical care medicine with etomidate 6 mg IV push total Procedure: Synchronized biphasic DC cardioversion: 50 J 1: Result: Sinus bradycardia; intermittent junctional rhythm; PACs Complications: No apparent complications This note was generated with [employer] dictation software. It may contain incorrect words, spelling, and punctuation that were not noted in checking the note before signing. 11/15/17 1142 <Electronically signed by Lee Hernandez MD> Date Lee Hernandez MD CC: Lee Hernandez MD; Sanchez Spears MD Signed OPERATIVE REPORT Observed: 11/15/2017 Status: F Source: [place] 11:01 AM [facility] REPOSITORY [facility] Medical Records Department [address] [place] [address] Operative Report 11/15/17 1056 MR#: [id number] Acct: [id number] Name: ALBA FLORES Rep #: [id number] : 1950 67 From: Charlie King DO PCP: Sanchez Spears MD Status: ADM IN Y [id number] Operative Report Date of Procedure: 11/15/17 CONSCIOUS SEDATION REPORT DATE OF SERVICE: November 15, 2017 BRIEF HISTORY OF PRESENT ILLNESS: The patient is a morbidly obese 67-year-old female who presented to the hospital in the setting of atrial flutter with a rapid ventricular response. The patient was evaluated by cardiology and underwent a transesophageal echocardiogram, which revealed mild global systolic dysfunction with an ejection fraction of 45%. The patient is currently anticoagulated on heparin and is receiving amiodarone and Cardizem. She was subsequently referred to undergo a bedside cardioversion by Dr. Hernandez. The patient denies a smoking history herself, but does have significant secondhand smoke exposure. Although she is at high risk for underlying sleep disordered breathing, she has never undergone a formal polysomnogram previously. PHYSICAL EXAMINATION: VITAL SIGNS: Reviewed and were acceptable. GENERAL: The patient is an obese female, in no apparent distress, speaking in full sentences. HEENT: Normocephalic, atraumatic. Mucous membranes are moist and pink. Good mouth opening noted. Trachea is midline. Limited neck mobility. MP III CHEST: S1, S2 irregularly irregular. No murmurs, rubs or gallops were noted. LUNGS: Clear to auscultation bilaterally with distant breath sounds secondary to body habitus. ABDOMEN: Soft, nontender, nondistended. Positive bowel sounds. Obese. EXTREMITIES: There is no clubbing or cyanosis. Trace lower extremity edema is present. ASA Class: II DESCRIPTION OF PROCEDURE: After confirmation of informed consent, the patient's anesthesia plan was reviewed in detail. Etomidate was chosen. Risks and benefits were reviewed and the patient agreed to proceed. At 1043, the patient was given 6 mg of etomidate. The patient achieved an appropriate level of sedation and was given a 50 joule synchronized cardioversion by Dr. Hernandez at the bedside. This was successful in achieving normal sinus rhythm. The patient was monitored until 1052, at which time she reached her baseline mental status and function. The patient tolerated the procedure well. COMPLICATIONS: None ESTIMATED BLOOD LOSS: None RECOMMENDATIONS: Okay to recover in usual fashion. Code Visit 9xxxx: Other Procedure See Report - [id number] 11/15/17 1101 <Electronically signed by Charlie King DO> Date Charlie King DO CC: Charlie King D.O.; Lee Hernandez MD; Sanchez Spears MD Signed PARTIAL THROMBOPLAST Collected: 11/15/2017 Status: F Source: [place] TIME 10:30 AM [facility] REPOSITORY Order Comment: Comments: hepain drip TYPE CODE TESTS RESULT OUT OF REFERENCE UNITS RANGE LAB L300.4310 24.1-36.2 Seconds High PTT 52.1 Performed By: #### L300.4310 #### [facility] [address] [place], [address] D-DIMER QUANTITATIVE Collected: 11/15/2017 Status: F Source: [place] (DVT/PE) 10:30 AM [facility] REPOSITORY Order Comment: Comments: add to admit labs TYPE CODE TESTS RESULT OUT OF RANGE REFERENCE UNITS LAB L300.8000 0.27-0.49 FEU/ug/m High alert D-DIMER 1.78 QUANT Result Comment: D-Dimer ELEVATED (>0.49): Additional studies and clinical assessments are indicated to conclude diagnosis of: Deep Vein Thrombosis (DVT) or Pulmonary Embolism (PE) CRITICAL VALUE VERIFIED. CALLED TO MARLENE 11/15/17 Johnny6 Monserrat Douglas. RESULTS READ BACK BY SHANON . Performed By: #### L300.8000 #### [facility] [address] [place], [address] ECHO TRANSESOPHAGEAL (NEREYDA) Observed: 11/15/2017 Status: F Source: [place] 10:24 AM [facility] REPOSITORY [facility] Cardiovascular Services [address] [place] [address] Echo Transesophageal (NEREYDA) 11/15/17 0914 MR#: [id number] Acct: [id number] Name: ALBA FLORES Rep #: [id number] : 1950 67 From: Lee Hernandez MD Attending Dr: Kike Nevarez DO Status: ADM IN Ordering Dr: Lee Hernandez MD Date: 11/15/17 Location: U Sex: F C Admitted: 11/14/17 Reason For Study: AFIB-FLUTTER Medication NEREYDA probe passed with minimal difficulty. No complications were noted. [place] Topical [place] given X4 metered doses orally. Versed 2 mg given slow IVP. Performed a rapid injection of agitated mix of 9 cc saline and 1cc air to assess for atrial septal defect. Left Ventricle Mild global left ventricular systolic dysfunction. The estimated ejection fraction is 45 %. Right Ventricle Mildly dilated right ventricle. Mild segmental dysfunction of right ventricle. Atria Color flow doppler c/w a left to right interatrial shunt c/w a PFO. Agitated saline contrast study c/w a right to left interatrial shunt c/w a PFO. The left atrium is mildly enlarged. There is mild sponatenous contrast in the left atrium. No thrombus is detected in the left atrial appendage. The right atrium is mildly enlarged. There is no sponatenous contrast in the right atrium. No RA / appendage thrombus identified. Mitral Valve There is mild to moderate mitral annular calcification. Extension of the mitral annular calcification onto the posterior mitral valve leaflet. Mild (1+) mitral valve insufficiency. Tricuspid Valve Normal tricuspid valve. Moderate (2+) tricuspid valve insufficiency. Aortic Valve Trisinus/trileaflet aortic valve. Mild focal aortic valve calcification. Pulmonic Valve The pulmonic valve is not well visualized. Vessels Normal appearing thoracic aorta. Pericardium No pericardial effusion. Interpretation Summary Mild global left ventricular systolic dysfunction. The estimated ejection fraction is 45 %. Mildly dilated right ventricle. Mild segmental dysfunction of right ventricle. The left atrium is mildly enlarged. There is mild sponatenous contrast in the left atrium. No thrombus is detected in the left atrial appendage. The right atrium is mildly enlarged. There is mild to moderate mitral annular calcification. Extension of the mitral annular calcification onto the posterior mitral valve leaflet. Mild (1+) mitral valve insufficiency. Moderate (2+) tricuspid valve insufficiency. Mild focal aortic valve calcification. Color flow doppler c/w a left to right interatrial shunt c/w a PFO. Agitated saline contrast study c/w a right to left interatrial shunt c/w a PFO. Normal appearing thoracic aorta. Ordering Physician: Lee Hernandez Referring Physician: SANCHEZ SPEARS Performed By: Emelia José [facility] 11/15/17 1024 Date Lee Hernandez MD CC: Kike Nevarez DO; Lee Hernandez MD; Sanchez Spears MD Date Dictated: 11/15/17 0914 Date Transcribed: 11/15/17 1024 Acid Mixer: Signed KING, COMPLETE W/ Observed: 11/15/2017 Status: F Source: [place] CONTRAST 9:24 AM [facility] REPOSITORY [facility] Cardiovascular Services [address] [place] [address] Echo Complete W/ Contrast 11/15/17 0819 MR#: [id number] Acct: [id number] Name: ALBA FLORES Rep #: [id number] : 1950 67 From: Lee Hernandez MD Attending Dr: Kike Nevarez DO Status: ADM IN Ordering Dr: Lee Hernandez MD Date: 11/14/17 Location: [facility] Sex: F C Admitted: 11/14/17 Reason For Study: AFIB/FLUTTER Procedure This was a 2D Doppler, Color Flow transthoracic echocardiogram. The study was technically difficult. Contrast injection was performed. Exam performed portable in patient room. Left Ventricle Mildly dilated left ventricle. Mild concentric left ventricular hypertrophy. Mild global left ventricular systolic dysfunction. The estimated ejection fraction is 45 %. Unable to assess diastolic dysfunction. Right Ventricle Mild to moderate right ventricular dilatation. Mild global right ventricular systolic dysfunction. Atria The left atrium is mildly enlarged. Normal right atrium. No doppler evidence for ASD. Mitral Valve There is mild mitral annular calcification. Extension of the mitral annular calcification onto the posterior mitral valve leaflet. Trivial mitral valve insufficiency. Tricuspid Valve Normal tricuspid valve. Mild tricuspid valve insufficiency. Right ventricular systolic pressure estimated to be 34 mmHg. Aortic Valve Trisinus/trileaflet aortic valve. Mild focal aortic valve calcification. Pulmonic Valve The pulmonic valve is not well visualized. Great Vessels Normal sized aortic root. Pericardium/Pleural Trivial pericardial effusion. There are no echocardiographic indications of cardiac tamponade. Medication Performed a rapid injection of agitated mix of 9 cc saline and 1cc air to assess for atrial septal defect. Diluted definity 1.0ml given slow IV push to enhance endocardial definition. MMode/2D Measurements AND Calculations LVIDd: 5.7 cm IVSd: 1.4 cm Ao root diam: 3.0 cm LVIDs: 4.4 cm LVPWd: 1.3 cm LA dimension: 4.7 cm RVDd: 3.6 cm FS: 22.7 % LAV(MOD-bp): 68.3 ml LA A4 area: 22.4 cm2 RA A4 area: 17.1 cm2 LAV(MOD-bp) Indexed: 27.2 ml/m2 LAV(MOD-sp2): 74.6 ml LAV(MOD-sp4): 63.1 ml Doppler Measurements AND Calculations MV E max sergio: 116.9 cm/sec Ao V2 max: 128.2 cm/sec LV V1 max: 91.7 cm/sec Ao max P.6 mmHg LV V1 max P.4 mmHg PA V2 max: 75.8 cm/sec TR max sergio: 253.8 cm/sec TR max P.0 mmHg Interpretation Summary The study was technically difficult. Contrast injection was performed. Mildly dilated left ventricle. Mild global left ventricular systolic dysfunction. The estimated ejection fraction is 45 %. Mild concentric left ventricular hypertrophy. Mild to moderate right ventricular dilatation. Mild global right ventricular systolic dysfunction. The left atrium is mildly enlarged. There is mild mitral annular calcification. Extension of the mitral annular calcification onto the posterior mitral valve leaflet. Trivial mitral valve insufficiency. Mild tricuspid valve insufficiency. Mild focal aortic valve calcification. Trivial pericardial effusion. There are no echocardiographic indications of cardiac tamponade. Right ventricular systolic pressure estimated to be 34 mmHg. Unable to assess diastolic dysfunction. Ordering Physician: Lee Hernandez Performed By: Laura Joans, BRENNONCS, RVT 11/15/17923 Date Lee Hernandez MD CC: Kike Nevarez DO; Lee Hernandez MD; Sanchez Spears MD Date Dictated: 11/15/17818 Date Transcribed: 11/15/17923 Acid Mixer: Signed CBC W/DIFF, AUTOMATED Collected: 11/15/2017 Status: F Source: [place] 3:52 AM [facility] REPOSITORY TYPE CODE TESTS RESULT OUT OF RANGE REFERENCE UNITS LAB L100.1000 4.4-11.0 K/mm3 Normal WBC 9.3 LAB L100.1200 4.2-5.4 M/mm3 Normal RBC 5.17 LAB L100.1300 12.0-15.0 g/dl High HGB 15.4 LAB L100.1400 37-47 % High HCT 49.9 LAB L100.1500 81-99 fL Normal MCV 96.5 LAB L100.1600 27.0-32.0 pg Normal MCH 29.8 LAB L100.1700 32-36 g/gl Low MCHC 30.9 LAB L100.1810 11.6-14.6 % High RDW CV 16.2 LAB L100.1820 35.1-43.9 fl High RDW SD 56.8 LAB L100.1900 150-450 K/mm3 Low PLT 143 LAB L100.2000 6.2-12.0 fl Normal MPV 10.2 LAB L100.2100 47-70 % Normal NEUT% 67.5 LAB L100.2200 19-41 % Normal LY% 20.5 LAB L100.2300 0-10 % High MONO% 11.2 LAB L100.2400 0-5 % Normal EO% 0.5 LAB L100.2500 0-1 % Normal BASO% 0.1 LAB L100.2550 0.0-0.9 % Normal IM GRAN % 0.200 Result Comment: IG% - Immature Granulocytes (promyelocytes, myelocytes and metamyelocytes) > 1% indicates that a LEFT SHIFT is Present. LAB L100.2620 2.0-7.7 X10 3/uL Normal Absolute Neut 6.3 LAB L100.2720 0.83-4.51 X10 3/ul Normal Absolute Lymph 1.90 Performed By: #### L100.0100 #### [facility] [address] [place], [address] BASIC METABOLIC Collected: 11/15/2017 Status: F Source: [place] PROFILE (BMP) 3:52 AM [facility] REPOSITORY TYPE CODE TESTS RESULT OUT OF RANGE REFERENCE UNITS LAB L501.0100 74-106 mg/dL High GLU 115 Result Comment: Fasting Glucose result from 100 to 125 mg/dL suggests IMPAIRED HOMEOSTASIS per A.D.A. criteria. Please note revised GLUCOSE reference range effective 2017. LAB L501.1000 7-18 mg/dL High BUN 26 LAB L501.1100 0.55-1.02 mg/dL High CREAT,SERUM 1.10 Result Comment: The validity of the calculated GFR AND GFRAA in patients over 70 years has not been determined. Clinical correlation is essential. LAB L501.1110 >60 mL/min Low EST GFR 52 Result Comment: Non- GFR Calc LAB L501.1115 >60 mL/min Normal EST GFR - AA 63 Result Comment: GFR Calc LAB L501.1255 ml/min Normal Estimated CRCL 43.43 LAB L501.1300 10-20 RATIO High BUN/CRE 23.6 LAB L501.2200 8.5-10 mg/dL Normal .1 CA 8.8 LAB L501.5300 136-14 mmol/L Normal 5 NA 145 LAB L501.5600 3.5-5. mmol/L Normal 1 K 4.5 LAB L501.5900 98-107 mmol/L High CL 112 LAB L501.6100 21.0-3 mmol/L Normal 2.0 CO2 24.0 LAB L501.6200 5-15 Normal GAP 9 Performed By: #### L500.2500, L500.3400, L500.4100, L501.9520 #### [facility] [address] [place], [address] LIVER PROFILE Collected: 11/15/2017 Status: F Source: [place] 3:52 AM [facility] REPOSITORY TYPE CODE TESTS RESULT OUT OF RANGE REFERENCE UNITS LAB L501.1500 6.4-8.2 g/dL Normal T PROT 6.6 LAB L501.1800 3.2-5.0 g/dL Low ALB 2.8 LAB L501.1950 2.2-4.2 g/dL Normal GLOB 3.8 LAB L501.4100 15-37 U/L Normal AST 22 LAB L501.4305 45-117 U/L Normal ALK P 117 LAB L501.4405 13-56 U/L Normal ALT 55 LAB L501.4600 0.20-1.00 mg/dL Normal T BILI 0.30 LAB L501.4700 0.00-0.30 mg/dL Normal D BILI 0.14 Performed By: #### L500.2500, L500.3400, L500.4100, L501.9520 #### [facility] [address] [facility] [place], [address] LIPID PROFILE Collected: 11/15/2017 Status: F Source: [place] 3:52 AM [facility] REPOSITORY TYPE CODE TESTS RESULT OUT OF RANGE REFERENCE UNITS LAB L501.4900 200 mg/dL Normal CHOL 101 Result Comment: <200 mg/dL Desirable 200-240 mg/dL Borderline >240 mg/dL High Risk LAB L501.5000 mg/dL Normal TRIG 89 Result Comment: The drugs N-Acetylcysteine and Metamizole may falsely depress this assay. Serum Triglycerides Reference Interval Normal <150 mg/dL Borderline high 150 - 199 mg/dL High 200 - 499 mg/dL Very High > or = 500 mg/dL LAB L501.6400 mg/dL Normal HDL 48 Result Comment: The drugs N-Acetylcysteine and Metamizole may falsely depress this assay. Reference Range HDL <40 mg/dL Low HDL Cholesterol HDL >or= 60 mg/dL High HDL Cholesterol LAB L501.6500 0-130 mg/dL Normal LDL 35 LAB L501.6600 5-40 mg/dL Normal VLDL 18 Performed By: #### L500.2500, L500.3400, L500.4100, L501.9520 #### [facility] [address] [place], [address] THYROID STIM HORMONE Collected: 11/15/2017 Status: F Source: [place] (TSH) 3:52 AM [facility] REPOSITORY TYPE CODE TESTS RESULT OUT OF RANGE REFERENCE UNITS LAB L501.9520 0.358-3.74 uIU/mL Normal TSH 0.88 Performed By: #### L500.2500, L500.3400, L500.4100, L501.9520 #### [facility] [facility] [address] [place], [address] PARTIAL THROMBOPLAST Collected: 11/15/2017 Status: F Source: [place] TIME 3:52 AM [facility] REPOSITORY Order Comment: Comments: time sensitive, on heparin drip TYPE CODE TESTS RESULT OUT OF REFERENCE UNITS RANGE LAB L300.4310 24.1-36.2 Seconds High alert PTT 218.4 Result Comment: CRITICAL VALUE VERIFIED. CALLED TO MUNDO ASHLEY 11/15/17 0437 Alda Medellin. RESULTS READ BACK BY SAME . Performed By: #### L300.4310 #### [facility] [address] [place], [address] PROTHROMBIN TIME W/INR Collected: 11/15/2017 Status: F Source: [place] 3:52 AM [facility] REPOSITORY Order Comment: Comments: time sensitive, on heparin drip TYPE CODE TESTS RESULT OUT OF RANGE REFERENCE UNITS LAB L300.4150 11.7-14.9 SECONDS High PROTIME 15.2 LAB L300.4200 Normal INR 1.2 Performed By: #### L300.3900 #### [facility] [address] [place], [address] CORTISOL SERUM Collected: 11/15/2017 Status: F Source: [place] 3:52 AM [facility] REPOSITORY TYPE CODE TESTS RESULT OUT OF REFERENCE UNITS RANGE LAB L509.6000 3.09-22.40 ug/dL High CORTISOL 25.40 Result Comment: Adult (AM) 4.30 - 22.40 ug/dL Adult (PM) 3.09 - 16.66 ug/dL Performed By: #### L509.6000 #### [facility] [address] [place], [address] TROPONIN-I Collected: 11/14/2017 Status: F Source: [place] 10:35 PM [facility] REPOSITORY Order Comment: 'TROP' Serial specimen #1, #2 or #3: 3 TYPE CODE TESTS RESULT OUT OF RANGE REFERENCE UNITS LAB L501.4010 <0.045 ng/mL Normal < 0.015 TROPONIN-I Result Comment: TROPONIN-I EXPECTED VALUES <0.045 Negative 0.045 - 0.590 Consistent with Cardiac Damage > OR = 0.600 Critical Value Not every elevated troponin is indicative of WV. These values should be used with clinical judgement in examining the patient's clinical picture for diagnosis. To establish a diagnosis of WV versus myocardial injury, there must be a demonstrated rise and/or fall in the troponin values, in addition to ischemic symptoms, EKG changes, new regional wall motion abnormality, and/or angiographical evidence. PLEASE NOTE: REFERENCE RANGES EDITED 17 Performed By: #### L501.4010 #### [facility] [address] [facility] [place], [address] TROPONIN-I Collected: 11/14/2017 Status: F Source: [place] 8:51 PM [facility] REPOSITORY Order Comment: 'TROP' Serial specimen #1, #2 or #3: 2 TYPE CODE TESTS RESULT OUT OF RANGE REFERENCE UNITS LAB L501.4010 <0.045 ng/mL Normal 0.019 TROPONIN-I Result Comment: TROPONIN-I EXPECTED VALUES <0.045 Negative 0.045 - 0.590 Consistent with Cardiac Damage > OR = 0.600 Critical Value Not every elevated troponin is indicative of [place]. These values should be used with clinical judgement in examining the patient's clinical picture for diagnosis. To establish a diagnosis of WV versus myocardial injury, there must be a demonstrated rise and/or fall in the troponin values, in addition to ischemic symptoms, EKG changes, new regional wall motion abnormality, and/or angiographical evidence. PLEASE NOTE: REFERENCE RANGES EDITED 17 Performed By: #### L501.4010 #### [facility] [address] [facility] [place], [address] PARTIAL THROMBOPLAST Collected: 11/14/2017 Status: F Source: [place] TIME 8:51 PM [facility] TYPE CODE TESTS RESULT OUT OF REFERENCE UNITS RANGE LAB L300.4310 24.1-36.2 Seconds High alert PTT > 250.0 Result Comment: RESULTS CALLED TO KEILY CAMPBELL RN 11/14/172146 Fadi Mae. REPORT READ BACK BY SAME . Performed By: #### L300.4310 #### [facility] [address] [place], [address] HISTORY AND PHYSICAL Observed: 11/14/2017 Status: F Source: [place] EXAM 8:27 PM [facility] REPOSITORY [facility] Medical Records Department [address] [place] [address] History and Physical 11/14/17 1700 MR#: [id number] Acct: [id number] Name: ALBA FLORES Rep #: [id number] : 1950 67 From: Pascual GUEVARA PCP: Sanchez Spears MD Status: ADM IN Y Location: [place] [address] ADDENDUM by Kike Nevarez DO on 11/14/17 at 2026 Code Visit Was seen and examined today independently of Pascual Maloney, she came to the emergency room at [facility] day after being sent in by her PCP due to her rapid heartbeat and possible SVT. She tried a Valsalva maneuver but the heart rate only momentarily came down then went back up. Patient has never had any cardiac issues before. When evaluated in the emergency room, she was found to be in SVT at a rate of 145. Patient was initially given adenosine twice, it slowed her rate down which revealed her rate to be atrial flutter, the patient was then given 20 mg of Cardizem and 3 5 mg IV doses of metoprolol. Patient's heart rate persisted to be in the 140s, I Cardizem drip was initiated and still did not bring her heart rate down. Patient was given IV amiodarone 150 mg without effect, cardiology was contacted and the patient was given digoxin 125 micrograms IV which slowed her rate down between 90 and 100. Labs performed in the emergency room were remarkable for creatinine of 1.21, BUN was 24, hemoglobin was 15.8. Glucose was 136, patient had a chest x-ray which showed cardiomegaly and mild increased markings at the lung bases suggestive of linear atelectasis and or scarring. Patient was admitted to stepdown on PCU on a Cardizem drip and an amiodarone drip, she will be seen by cardiology in consultation. I have reviewed Pascual Maloney's history and physical and medical plan of care and endorse both Inpatient E AND M: [id number] Init Hosp L3 11/14/172026 <Electronically signed by Kike Nevarez DO> Date Kike Nevarez DO cc: PAOLA Maloney; Kike Nevarez DO; Sanchez Spears MD * Signed Problem List (1) Atrial flutter Status: Acute (2) Chest pain Status: Acute (3) Morbid obesity Status: Chronic (4) HTN (hypertension) Status: Chronic (5) GERD (gastroesophageal reflux disease) Status: Chronic History of Present Illness Date of Admission: 11/14/17 Chief Complaint: SOB The patient is a 67 year old F with a hx of morbid obesity, htn, gerd, who presented to the ER with SOB x 3 days. She was sent from her PCP's office after being found to be very tachycardic. She was also having short sharp midsternal chest pain coming and going that would last for about 1 second. In the ER she showed SVT, and was given adenocard, metoprolol, cardizem, the rhythm decreased to 140s and showed aflutter. She was then given digoxin 0.125 mg and her heart rate came down to 90-100. Dr. Hernandez was consulted and she was admitted to PCU, started on IV heparin, Amiodarone and cardizem drip. She is resting comfortably in bed with no further SOB or CP. She is eating dinner and without complaints. No recent illness. [] Past Medical History Past Medical History (Chronic Problems): Chronic Problems Morbid obesity (Chronic) HTN (hypertension) (Chronic) GERD (gastroesophageal reflux disease) (Chronic) Allergies aspirin [ASA] Adverse Reaction (Verified 11/14/17 14:34) stomach burning and sick to stomach propoxyphene HCl [From Darvon] Adverse Reaction (Verified 11/14/17 14:34) i get dizzy and pass out Home Medications: Ambulatory Orders Medication Instructions Recorded Lisinopril [Zestril] 30 mg PO DAILY 07/02/16 [place]-3 Fatty Acids/Fish Oil [Fish 1 each PO DAILY 07/02/16 Surgical History: hysterectomy - total Psychiatric History: No pertinent psych hx 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 Denies: Edema, Heaviness, Light Headedness, Palpitations Respiratory: Reports: Shortness of Breath, Shortness of breath at rest, Shortness of breath upon exertion. Denies: Cough, Sputum production Gastrointestinal: Denies: Abdominal Pain, Nausea, Vomiting Genitourinary: Denies: Dysuria Musculoskeletal: Denies: Joint Pain, Joint Tenderness Skin: Denies: Rash, Wounds Neurological: Denies: Numbness, Tingling, Focal weakness Psychiatric: Denies: Anxiety, Depression, Homicidal Ideations, Suicidal Ideations Hematologic/ Lymphatic: Denies: Easy Bruising, Easy Bleeding VTE Information - Inpt Only VTE Present on Admission: No VTE Mechan Device Prophylaxis: None VTE Pharm Prophylaxis ordered?: Yes Patient Problems: Active and Suspected Problems Atrial flutter (Acute) Chest pain (Acute) - Physical Exam General: Alert, Oriented x3, Cooperative HEENT: Atraumatic, PERRLA, EOMI, Normocephalic Neck: Supple, No JVD, Negative Carotid Bruits Lungs: Clear to auscultation, Normal air movement Cardiovascular: No murmurs, Irregular Rate, Tachycardic Abdomen: Bowel Sounds Present, Soft, Non Tender, Obese Extremities: No edema, Capillary Refill Less than 3 Seconds Skin: No rashes, No breakdown Musculoskeletal: No Tenderness to Palpation of Joints or Extremities Neurological: Cranial nerves II-XII grossly intact Psych/Mental Status: Normal Affect, Appropriate Vital Signs Temp Pulse Resp BP Pulse Ox 96.7 F L 77 20 H 99/50 L 95 11/14/17 16:00 11/14/17 16:00 11/14/17 16:00 11/14/17 16:00 11/14/17 16:00 Oxygen Flow Rate (L/min) 2 Oxygen Delivery Method Nasal Cannula Weight: 350 lb 3.2 oz Body Mass Index (BMI) 58.2 Laboratory Tests Past 24 Hrs PT 14.7 INR 1.2 APTT 27.3 Troponin I Pending Assessment/Plan All Active Problems Atrial flutter (Acute) Chest pain (Acute) 1. Aflutter with RVR - admit to PCU. Cycle enzymes. Maintain on tele. Amio/Cardizem/heparin drips. Plan is for NEREYDA/Cardioversion. SOB is resolved. Rate is improving. CXR with cardiomegaly. 2. HTN - running low normal on drips. 3. 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 Elevated glucose. Check A1C. 4. GERD - ppi. 5. High risk for sleep apnea - stopbang at least 3. Needs PSG outpatient. 6. Dehydration - IV fluids. mildly elevated BUN/Cr. DVT ppx: Therapeutic heparin This patient was seen by Pascual Maloney PA-C under the supervision of Doctor Nevarez. 11/14/17 1713 <Electronically signed by Pascual GUEVARA> Date Pascual GUEVARA 11/14/17 1912<Electronically signed by Kike Nevarez DO> Cosigner Signature: Date (if applicable) Kike Nevarez DO CC: PAOLA Maloney; Kike Nevarez DO; Sanchez Spears MD Signed CONSULTATION Observed: 11/14/2017 Status: F Source: [place] 6:47 PM [facility] REPOSITORY [facility] Medical Records Department [address] [place] [address] Consultation 11/14/17 1833 MR#: [id number] Acct: [id number] Name: ALBA FLORES Rep #: [id number] : 1950 67 From: Lee Hernandez MD PCP: Sanchez Spears MD Status: ADM IN Y Location: [place] [address]-1 Problem List (1) Atrial flutter Status: Acute (2) Chest pain Status: Acute (3) Shortness of breath Status: Acute (4) HTN (hypertension) Status: Chronic (5) GERD (gastroesophageal reflux disease) Status: Chronic (6) Morbid obesity Status: Chronic Reason for Consult Date of Consultation: 11/14/17 History of Present Illness: The patient is a 67 year old white female with a past medical history of hypertension, GERD, and obesity who is referred for evaluation of atrial flutter with rapid ventricular response, chest discomfort, and shortness of breath. The patient denies any previously documented cardiovascular history or cardiovascular diagnostic studies other than her history of hypertension. She states she had been in her usual state of health until recently. Recently she felt as if she was having asthma attacks . She notes that her efresy-oa-cov, her nurse, evaluated her and felt that her heart rate was elevated. Thus she presented to her PCP at the [facility] office. There she was found to be in what appeared to be atrial flutter with a ventricular rate of approximately 150 bpm. She was subsequently referred to the [facility] ED for evaluation and care. She had a cardiac enzymes performed which was negative. She had a repeat ECG which demonstrated atrial flutter with a ventricular rate of approximately 150 bpm with a right bundle branch block pattern. She was treated by the [facility] ED physicians with a combination of medications. This included IV adenosine to further evaluate her underlying atrial activity and demonstrate flutter waves. She received IV diltiazem and IV Lopressor and IV amiodarone. She was subsequently placed in the PCU for further evaluation. In the PCU her repeat troponin I level has remained negative. Her cardiac rate has slowed to ventricular rates between 80 and 100 bpm. She has remained in atrial flutter. Her chest x-ray demonstrated diminished inspiratory effort with questions of atelectasis. She has had no other additional studies performed thus far. She states that at home, during these asthma attacks she had chest discomfort. She states she can lie in bed on her side and sleep but is unsure she has been able to lie on her back and sleep. She notes that she does prop herself up in bed as she watches TV in bed. She has not had any near-syncope or syncope. She states she has not sensed her palpitations but she has noted recently when she looks at her chest that she noted her clothing fluttering. So noted the recent development of lower extremity edema. [] Past Medical History Allergies/Adverse Reactions: Allergies aspirin [ASA] Adverse Reaction (Verified 11/14/17 14:34) stomach burning and sick to stomach propoxyphene HCl [From Darvon] Adverse Reaction (Verified 11/14/17 14:34) i get dizzy and pass out Home Medications: Ambulatory Orders Medication Instructions Recorded Lisinopril [Zestril] 30 mg PO DAILY 07/02/16 [place]-3 Fatty Acids/Fish Oil [Fish 1 each PO DAILY 07/02/16 Past Medical History (Chronic Problems): Chronic Problems Morbid obesity (Chronic) HTN (hypertension) (Chronic) GERD (gastroesophageal reflux disease) (Chronic) Surgical History: hysterectomy - total Psychiatric History: No pertinent psych hx 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 Denies: Orthopnea, PND, Palpitations, Lightheadedness, Dizziness, Near Syncope, Syncope Respiratory: Reports: Shortness of Breath. Denies: Cough, Sputum Production, Hemoptysis Gastrointestinal: Denies: Hematemesis, Hematochezia, Melena Genitourinary: Denies: Dysuria, Hematuria Skin: Denies: Rash Subjectve: This is a 67-year-old obese white female who appears to be resting reasonably comfortably at the moment in no acute distress. Objective: Vital Signs Temp Pulse Resp BP Pulse Ox 96.7 F L 93 21 H 103/82 H 95 11/14/17 16:00 11/14/17 17:00 11/14/17 17:00 11/14/17 17:00 11/14/17 17:00 Oxygen Flow Rate (L/min) 2 Oxygen Delivery Method Nasal Cannula Weight: 350 lb 3.2 oz Body Mass Index (BMI) 58.2 General: Awake, Alert, Oriented x 3, No Acute Distress, Obese HEENT: Atraumatic, Normocephalic, PERRL, EOMI, Sclera Non Icteric Oral: Moist Mucosa Neck: Supple, Good ROM, No JVD Lungs: - - Diminished inspiratory effort Cardiovascular: Irregular Rhythm, Normal S1, Normal S2 - Diminished heart tones Vascular: No Carotid Bruits Abdomen: Bowel Sounds Present, Soft, Non Tender Extremities: Mild RLE Edema, Mild LLE Edema Neurological: No Focal Motor or Sensory Deficit Psych/Mental Status: Appropriate, Normal Affect 11/14/17 14:40: APTT 27.3 11/14/17 14:40: PT 14.7, INR 1.2 11/14/17 16:28: Troponin I 0.021 Rhythm: Atrial flutter EKG: As noted above CXR: As noted above: Please see official report Assessment/Plan 1. Atrial flutter with rapid ventricular response The patient has findings compatible atrial flutter with rapid ventricular response. The etiology may be multifactorial being related to a combination of her age, hypertension, possibly undiagnosed additional cardiovascular disease and/or pulmonary disease. This would include concerns of potential obstructive sleep apnea. She is also being evaluated for metabolic related issues. At the present time her rate has been challenging to control. It is taken multiple medications to bring her rate down. She is presently anticoagulated. She will need to be considered for NEREYDA guided synchronized biphasic DC cardioversion in an attempt to regain sinus rhythm. 2. Chest pain She did report chest discomfort associated with her shortness of breath during her recent episodes. She is undergoing evaluation by cardiac enzymes which have been negative. Her ECG demonstrates the underlying atrial flutter with a right bundle branch block pattern without acute electrocardiographic changes. Depending upon her clinical course she may need eventually to undergo some form of noninvasive or invasive evaluation of her coronary anatomy/physiology. His may include pharmacologic stress nuclear imaging studies and/or diagnostic cardiac catheterization. However, based upon her ongoing atrial dysrhythmia, which appears to be difficult to control, it may be reasonable to attempt to regain sinus rhythm first barring a change in her clinical course. 3. Shortness of breath Her shortness of breath may be related to her atrial dysrhythmia and her rapid rate superimposed upon other potential medical issues/physiologic issues including her morbid obesity. At the present time she will continue to be followed. She will continue evaluation care as noted above. 4. Hypertension Her blood pressures have been lower with IV diltiazem. Her medications be adjusted to try and balance her blood pressures. 5. GERD She states she has a history of GERD. She states she cannot tolerate aspirin because it upsets my stomach . She is unclear whether she ever took coated aspirin and whether that would bother her in any negative way. 6. Obesity The patient is morbidly obese. This may be contributing to her diagnosis, symptoms, etc. This can make it challenging with respect to further diagnostic studies, etc. Comment: The above was discussed with the patient and Dr. Nevarez. This note was generated with [employer] software. It may contain incorrect words, spelling, and punctuation that were not noted in checking the note before signing. 11/14/171846 <Electronically signed by Lee Hernandez MD> Date Lee Hernandez MD Cosigner Signature (if applicable): Date CC: Lee Hernandez MD; Sanchez Spears MD Signed TROPONIN-I Collected: 11/14/2017 Status: F Source: [place] 4:28 PM [facility] REPOSITORY Order Comment: 'TROP' Serial specimen #1, #2 or #3: 1 TYPE CODE TESTS RESULT OUT OF RANGE REFERENCE UNITS LAB L501.4010 <0.045 ng/mL Normal 0.021 TROPONIN-I Result Comment: TROPONIN-I EXPECTED VALUES <0.045 Negative 0.045 - 0.590 Consistent with Cardiac Damage > OR = 0.600 Critical Value Not every elevated troponin is indicative of [place]. These values should be used with clinical judgement in examining the patient's clinical picture for diagnosis. To establish a diagnosis of [place] versus myocardial injury, there must be a demonstrated rise and/or fall in the troponin values, in addition to ischemic symptoms, EKG changes, new regional wall motion abnormality, and/or angiographical evidence. PLEASE NOTE: REFERENCE RANGES EDITED 17 Performed By: #### L501.4010 #### [facility] [address] [facility] [place], [address] PARTIAL THROMBOPLAST Collected: 11/14/2017 Status: F Source: [place] TIME 2:40 PM [facility] REPOSITORY TYPE CODE TESTS RESULT OUT OF RANGE REFERENCE UNITS LAB L300.4310 24.1-36.2 Seconds Normal PTT 27.3 Performed By: #### L300.4310 #### [facility] [address] [place] [place], [address] PROTHROMBIN TIME W/INR Collected: 11/14/2017 Status: F Source: [place] 2:40 PM [facility] REPOSITORY TYPE CODE TESTS RESULT OUT OF RANGE REFERENCE UNITS LAB L300.4150 11.7-14.9 SECONDS Normal PROTIME 14.7 LAB L300.4200 Normal INR 1.2 Performed By: #### L300.3900 #### [facility] [address] [facility] [place], [address] EMERGENCY DEPARTMENT Observed: 11/14/2017 Status: F Source: [place] SUMMARY 1:41 PM [facility] REPOSITORY [facility] Medical Records Department [address] [place] [id number] Emergency Department Summary 11/14/17 1006 MR#: [id number] Acct: [id number] Name: ALBA FLORES Rep #: [id number] : 1950 67 From: Gilberto Sky MD PCP: Sanchez Spears MD Status: REG ER - ER Visit Summary Date of Service: 11/14/17 Chief Complaint: Shortness of breath History of Present Illness: The patient is a 67 F who has had shortness of breath for the last 2 days. She states she feels very winded. She also has some weakness. No chest pain today but she did note some chest pressure yesterday. She went to the PCPs office today and they noted that she was in SVT. She was able to do Valsalva heart rate came down to the 70s momentarily but then went back up to 150. Patient has no history of this in the past. She has no cardiac issues. She has never seen a wellness manager before. Physical Examination: Vital signs reviewed. HEENT exam unremarkable. Heart is tachycardic but regular with a rate of 145 without murmurs. Lungs are clear to auscultation. Abdomen is soft and nontender. Extremities reveal no edema. Skin exam normal. Neurologic exam normal. Test Results: EKG was in SVT at a rate of 145. Chest x-ray shows chronic changes with cardiomegaly. Heme globin 15.8. Sodium 148, chloride 111. Glucose 133. Creatinine is 1.21. Troponin 0 0.017 Emergency Department Course and Treatment: Initially the patient was given 6 mg and then 12 mg of adenosine. This revealed that the underlying rhythm was actually atrial flutter. Patient was given 20 mg of Cardizem and then 3 5 mg doses of metoprolol. The patient still had a heart rate in the 140s. I then started her on a Cardizem drip and titrated upwards but it still did not bring down the heart rate. I discussed with Dr. Hernandez. He suggested digoxin and the patient may ultimately need a NEREYDA with cardioversion. I gave her 0.125 mg of digoxin and the patient's heart rate came down between 90 and 100. Patient was discussed with the hospitalist for admission to stepdown because she is on the Cardizem drip. Treatment Plan: [] Disposition: Admit Impression: Atrial flutter with RVR This note was generated with [employer] dictation software. It may contain incorrect words, spelling, and punctuation that were not noted in review of the chart prior to signing ED Disposition - Plan for ED Patient: Chief Complaint: Chest Pain Referrals: Sanchez Spears MD [Primary Care Provider] - What to do if you have Problems For any increased pain, shortness of breath, bleeding, nausea or vomiting, chest pain, or any unexpected problems, contact your Primary Care Provider. Call [facility] ([phone]) or report to the closest Emergency Room. Call 911 if necessary. 11/14/17 1341 <Electronically signed by Gilberto Sky MD> Date Gilberto Sky MD Cosigner Signature (If Indicated): Date CC: Sanchez Spears MD CBC W/DIFF, AUTOMATED Collected: 11/14/2017 Status: F Source: [place] 9:55 AM [facility] REPOSITORY TYPE CODE TESTS RESULT OUT OF RANGE REFERENCE UNITS LAB L100.1000 4.4-11.0 K/mm3 Normal WBC 10.1 LAB L100.1200 4.2-5.4 M/mm3 Normal RBC 5.31 LAB L100.1300 12.0-15.0 g/dl High HGB 15.8 LAB L100.1400 37-47 % High HCT 49.7 LAB L100.1500 81-99 fL Normal MCV 93.6 LAB L100.1600 27.0-32.0 pg Normal MCH 29.8 LAB L100.1700 32-36 g/gl Low MCHC 31.8 LAB L100.1810 11.6-14.6 % High RDW CV 15.7 LAB L100.1820 35.1-43.9 fl High RDW SD 53.4 LAB L100.1900 150-450 K/mm3 Normal PLT 182 LAB L100.2000 6.2-12.0 fl Normal MPV 10.1 LAB L100.2100 47-70 % High NEUT% 78.3 LAB L100.2200 19-41 % Low LY% 11.2 LAB L100.2300 0-10 % High MONO% 10.1 LAB L100.2400 0-5 % Normal EO% 0.1 LAB L100.2500 0-1 % Normal BASO% 0.1 LAB L100.2550 0.0-0.9 % Normal IM GRAN % 0.200 Result Comment: IG% - Immature Granulocytes (promyelocytes, myelocytes and metamyelocytes) > 1% indicates that a LEFT SHIFT is Present. LAB L100.2620 2.0-7.7 X10 3/uL High Absolute Neut 7.9 LAB L100.2720 0.83-4.51 X10 3/ul Normal Absolute Lymph 1.14 Performed By: #### L100.0100 #### [facility] [address] [place], [address] BASIC METABOLIC Collected: 11/14/2017 Status: F Source: [place] PROFILE ([facility]) 9:55 AM [facility] REPOSITORY TYPE CODE TESTS RESULT OUT OF RANGE REFERENCE UNITS LAB L501.0100 74-106 mg/dL High GLU 136 Result Comment: Fasting Glucose result greater than or equal to 126 mg/dL suggests DIABETES MELLITUS per A.D.A. criteria. Please note revised GLUCOSE reference range effective 2017. LAB L501.1000 7-18 mg/dL High BUN 24 LAB L501.1100 0.55-1.02 mg/dL High CREAT,SERUM 1.21 Result Comment: The validity of the calculated GFR AND GFRAA in patients over 70 years has not been determined. Clinical correlation is essential. LAB L501.1110 >60 mL/min Low EST GFR 47 Result Comment: Non- GFR Calc LAB L501.1115 >60 mL/min Low EST GFR - AA 57 Result Comment: GFR Calc LAB L501.1255 ml/min Normal Estimated CRCL 39.49 LAB L501.1300 10-20 RATIO Normal BUN/CRE 19.8 LAB L501.2200 8.5-10 mg/dL Normal .1 CA 9.1 LAB L501.5300 136-14 mmol/L High 5 NA 148 LAB L501.5600 3.5-5. mmol/L Normal 1 K 4.1 LAB L501.5900 98-107 mmol/L High CL 111 LAB L501.6100 21.0-3 mmol/L Normal 2.0 CO2 27.0 LAB L501.6200 5-15 Normal GAP 10 Performed By: #### L500.2500, L501.4010 #### [facility] [address] [place], [address] TROPONIN-I Collected: 11/14/2017 Status: F Source: [place] 9:55 AM [facility] REPOSITORY TYPE CODE TESTS RESULT OUT OF RANGE REFERENCE UNITS LAB L501.4010 <0.045 ng/mL Normal 0.017 TROPONIN-I Result Comment: TROPONIN-I EXPECTED VALUES <0.045 Negative 0.045 - 0.590 Consistent with Cardiac Damage > OR = 0.600 Critical Value Not every elevated troponin is indicative of WV. These values should be used with clinical judgement in examining the patient's clinical picture for diagnosis. To establish a diagnosis of WV versus myocardial injury, there must be a demonstrated rise and/or fall in the troponin values, in addition to ischemic symptoms, EKG changes, new regional wall motion abnormality, and/or angiographical evidence. PLEASE NOTE: REFERENCE RANGES EDITED 17 Performed By: #### L500.2500, L501.4010 #### [facility] [address] [facility] [address] [place], [address] HEMOGLOBIN A1C Collected: 11/14/2017 Status: F Source: [place] 9:55 AM [facility] REPOSITORY Order Comment: Comments: ok to add on TYPE CODE TESTS RESULT OUT OF RANGE REFERENCE UNITS LAB L501.9985 4.2-6.3 % Normal HGB A1C 6.0 Performed By: #### L501.9985 #### [facility] [address] [facility] [place], [address] CHEST 1 VIEW Observed: 11/14/2017 Status: F Source: [place] (PORTABLE) 9:53 AM [facility] REPOSITORY [facility] Imaging Services [address] [place] [address] Chest 1 View (Portable) MR#: [id number] Acct: [id number] Name: ALBA FLORES Rep #: [id number] : 1950 F 67 From: Lewis Aguirre MD PCP: Sanchez Spears MD Status: PRE ER Study: Chest 1 View (Portable) Date of Exam: 11/14/17 Exam# [id number] Ordering Dr: Gilberto Sky MD STUDY: X-RAY CHEST REASON FOR EXAM: Female, 67 years old. 2 day history of chest pain. TECHNIQUE: Single AP portable view of the chest. COMPARISON: None. FINDINGS: EKG electrodes are seen. Mild increased linear markings at the lung bases suggestive of bibasilar atelectasis and/or scarring. There is no demonstrated pleural abnormality. There is moderate cardiac enlargement. Normal mediastinum and angi. Normal visualized pulmonary arteries. Normal visualized aortic arch and descending thoracic aorta. Normal visualized thoracic spine. Normal visualized ribs, clavicles, and shoulders. There is no demonstrated abnormality of the visualized soft tissue structures of the upper abdomen. RAD/Chest 1 View (Portable) IMPRESSION: Cardiomegaly. Mild increased markings at the lung bases suggestive of linear atelectasis and/or scarring. Electronically Signed: Lewis Aguirre MD at 10:22 EDT Tel [phone], Service support , CC: Gilberto Sky MD; Sanchez Spears MD Acid Mixer: Signed PROGRESS Observed: 11/14/2017 Status: COMPLETED Source: [place] 9:18 AM [facility] REPOSITORY HNO ID: [id number] Author: Tanisha Denton (Pa-C) Tommy Service: (none) Author Type: Physician Hvac Controls Technician Type: Progress Notes Filed: 11/14/2017 9:33 AM Note Text: 67 year old female with c/o SOB worsening over a couple days. Came in to office diaphoretic having chest pressure mid sternal. Not pain. No cardiac hx. HTN has been controlled. -148-32. Sa02 92%. Placed on O2 3l/min. EKG SVT rate 146 wide regular complex. Chest CTA. Valsalva brought rate down to 72 for about 90 sec and then back to 146. Squad called and arrived. Care transferred with report. Report called to [facility] ED physician. HISTORIES FAMILY HISTORY Problem Relation Age of Onset - COPD Mother - Heart Father - Colon Cancer Sister PAST MEDICAL HISTORY Diagnosis Date - Borderline diabetes 12/2014 - Endometrial cancer, grade I (HCC) 12/2014 - HTN (hypertension) 12/2014 - Morbid obesity with BMI of 60.0-69.9, adult (HCC) - Osteopenia PAST SURGICAL HISTORY Procedure Laterality Date - APPENDECTOMY - LAP, SUPRACERVIAL HYSTERECTOMY W/ TUBEANDOV, <250G 2014 - TUBAL LIGATION HX Social History Marital status: Spouse name: Years of education: Number of children: Social History Main Topics Smoking status: Former Smoker Packs/day: 1.00 Years: 5.00 Types: Cigarettes Quit date: 04/17/1984 Smokeless tobacco: Never Used Alcohol use: Yes Comment: rarely Drug use: No Sexual activity: No ACTIVE PROBLEM LIST Htn (Hypertension) Borderline Diabetes Endometrial Cancer, Grade I (Hcc) Morbid Obesity (Hcc) Osteopenia Current Outpatient Prescriptions: lisinopril (ZESTRIL, PRINIVIL) 20 mg tablet Take 1.5 tablets by mouth once daily. Disp: 30 tablet Rfl: 5 omeprazole (PRILOSEC) 20 mg capsule Take 1 capsule by mouth once daily. Disp: 30 capsule Rfl: 5 CALCIUM CARBONATE/VITAMIN D3 (CALCIUM + D ORAL) Take by mouth. Disp: Rfl: DOCOSAHEXANOIC ACID/EPA (FISH OIL ORAL) Take by mouth. Disp: Rfl: No current facility-administered medications for this visit. BLOOD PRESSURE CONTROLLED due on 02/26/1966 DTAP,TDAP,TD(1 - Tdap) due on 02/26/1967 EXAM: BP 112/68 (BP Site: Right Arm, BP Position: Sitting, BP Cuff Size: Large Adult) Pulse (!) 146 Resp (!) 88 Wt (!) 158.8 kg (350 lb) BMI 63.50 kg/m? See above Assessment: SVT unstable Plan: Transferred per squad to [facility] ED. Report called to physician. See orders and/or patient instructions. Patient ( or Guardian) expressed understanding of instructions on review. Tanisha Sanders PA-C EKG1 Observed: 11/14/2017 Status: F Source: [place] 9:[address] [facility] REPOSITORY NAME : ALBA FLORES PID : [id number] : 1950 Gender : Female Race : ORD : Procedure Date : Nov 14 2017 09:15:35 Edit Date : Nov 15 2017 08:08:12 Diagnosis:WIDE QRS TACHYCARDIA COMPLETE RIGHT BUNDLE BRANCH BLOCK ABNORMAL ECG Confirmed by FADI DASH D.O. ([id number]) on 11/15/2017 8:07:51 AM Ventricular Rate : 146 BPM Atrial Rate : 144 BPM QRS Duration : 164 ms Q-T Interval : 334 ms QTC Calculation(Bezet) : 520 ms R Patterson : 264 degrees T Patterson : 22 degrees Test Reason : Location : 185 : [facility] Overread By : FADI DASH D.O. Edited By : FADI DASH D.O. Referred By : TOMMY Acquired by : SHAUNA ARORA Observed: 11/14/2017 Status: COMPLETED Source: [place] 9:00 AM [facility] REPOSITORY Office Visit (FAMPWS) SANDRAALBA ([id number]) 1950 F Date Time Provider Department 11/14/17 9:00 AM Tanisha SANDERS) FAMPWS During your visit today, we recorded the following information about you: Pulse Respiration Blood pressure Weight 146/minute 88/minute 112/68 158.8 kg M Bertin Sanders PA-C 11/14/2017 9:33 AM Signed 67 year old female with c/o SOB worsening over a couple days. Came in to office diaphoretic having chest pressure mid sternal. Not pain. No cardiac hx. HTN has been controlled. 148-32. Sa02 92%. Placed on O2 3l/min. EKG SVT rate 146 wide regular complex. Chest CTA. Valsalva brought rate down to 72 for about 90 sec and then back to 146. Squad called and arrived. Care transferred with report. Report called to [facility] ED physician. HISTORIES FAMILY HISTORY Problem Relation Age of Onset - COPD Mother - Heart Father - Colon Cancer Sister PAST MEDICAL HISTORY Diagnosis Date - Borderline diabetes 12/2014 - Endometrial cancer, grade I (HCC) 12/2014 - HTN (hypertension) 12/2014 - Morbid obesity with BMI of 60.0-69.9, adult (HCC) - Osteopenia PAST SURGICAL HISTORY Procedure Laterality Date - APPENDECTOMY - LAP, SUPRACERVIAL HYSTERECTOMY W/ TUBEANDOV, <250G 2014 - TUBAL LIGATION HX Social History Marital status: Spouse name: Years of education: Number of children: Social History Main Topics Smoking status: Former Smoker Packs/day: 1.00 Years: 5.00 Types: Cigarettes Quit date: 04/17/1984 Smokeless tobacco: Never Used Alcohol use: Yes Comment: rarely Drug use: No Sexual activity: No ACTIVE PROBLEM LIST Htn (Hypertension) Borderline Diabetes Endometrial Cancer, Grade I (Hcc) Morbid Obesity (Hcc) Osteopenia Current Outpatient Prescriptions: lisinopril (ZESTRIL, PRINIVIL) 20 mg tablet Take 1.5 tablets by mouth once daily. Disp: 30 tablet Rfl: 5 omeprazole (PRILOSEC) 20 mg capsule Take 1 capsule by mouth once daily. Disp: 30 capsule Rfl: 5 CALCIUM CARBONATE/VITAMIN D3 (CALCIUM + D ORAL) Take by mouth. Disp: Rfl: DOCOSAHEXANOIC ACID/EPA (FISH OIL ORAL) Take by mouth. Disp: Rfl: No current facility-administered medications for this visit. BLOOD PRESSURE CONTROLLED due on 02/26/1966 DTAP,TDAP,TD(1 - Tdap) due on 02/26/1967 EXAM: BP 112/68 (BP Site: Right Arm, BP Position: Sitting, BP Cuff Size: Large Adult) Pulse (!) 146 Resp (!) 88 Wt (!) 158.8 kg (350 lb) BMI 63.50 kg/m? See above Assessment: SVT unstable Plan: Transferred per squad to [facility] ED. Report called to physician. See orders and/or patient instructions. Patient ( or Guardian) expressed understanding of instructions on review. Tanisha Sanders PA-C Referring Provider: SELF [200] Allergies As of Date: 11/14/2017 Noted Allergy Reaction ASA (ASPIRIN) 01/16/2015 8 - GI Upset Date Reviewed: 11/14/2017 Reviewed by: Tanna Boss Ma - Fully Assessed Reason for Visit: Breathing Problem [17] Cmt: x 3 days Primary Visit Diagnosis:SOB (shortness of breath) [R06.02] Other Visit Diagnosis:SVT (supraventricular tachycardia) (HCC) [I47.1] Order(s):ECG COMPLETE W INTERPRETATION [ECG01] Order #: [id number] FUTURE Prescriptions as of 11/14/2017 Sig: LISINOPRIL 20 MG TABLET Take 1.5 tablets by mouth onc* OMEPRAZOLE 20 MG CAPSULE,CECILIA* Take 1 capsule by mouth once * CALCIUM + D ORAL Take by mouth. FISH OIL ORAL Take by mouth. Problem List As Of Date 11/14/2017 Noted Resolved HTN (hypertension) [I10] Borderline diabetes [R73.03] INVALID FOR* Endometrial cancer, grade I (HCC) [C54.1] INVALID FOR* Morbid obesity (HCC) [E66.01] INVALID FOR* Osteopenia [M85.80] INVALID FOR* Encounter Status:Closed by Tanisha SANDERS PA-C on 11/14/17 CNCO Observed: 10/23/2017 Status: COMPLETED Source: [place] 11:35 AM [facility] REPOSITORY HNO ID: [id number] Author: Mammography Coordinator Service: (none) Author Type: Physician Type: Letter Filed: 10/24/2017 11:31 PM Note Text: October 23, 2017 PID: [id number] Alba Flores [address] [place] [id number] Dear Ms. Flores, We are pleased to inform you that the results of your recent breast imaging exam on 10/23/2017 are normal. Early detection of cancer is very important. We also understand recommendations regarding breast cancer screening are controversial. Please discuss with your primary care provider which strategy is best for you and whether a mammogram is right for you. Your imaging studies and report will be kept on file at [facility] as part of your permanent medical record and are available for your continuing care. Thank you for allowing us to help in meeting your health care needs. Sincerely, Dr. Suarez Interpreting Radiologist [facility] (Normal over 40) [facility] SCREENING Observed: 10/23/2017 Status: F Source: [place] 10:34 AM [facility] REPOSITORY * * *Final Report* * * DATE OF EXAM: Oct 23 2017 10:34AM [facility] 0581 - [facility] SCREENING / PROCEDURE REASON: Encounter for screening mammogram for malignant neoplasm of breast * * * * Physician Interpretation * * * * RESULT: #[id number] - [facility] SCREENING BILATERAL DIGITAL SCREENING MAMMOGRAM WITH CAD: 10/23/2017 HISTORY: Screening Mammogram - patient reports NO breast symptoms /priors available for comparison. RESULT: TECHNIQUE: The study was acquired using full field digital technology and interpreted from soft copy. Current study was also evaluated with a Computer Aided Detection (CAD). Comparison is made to exams dated: 10/17/2016 mammogram - [facility], 09/08/2015 mammogram - , and 08/24/2015 mammogram - [facility]. There are scattered fibroglandular elements in both breasts. No significant masses, calcifications, or other findings are seen in either breast. There has been no significant interval change. IMPRESSION: NEGATIVE There is no mammographic evidence of malignancy.A 1 year screening mammogram is recommended. Aurora Suarez M.D., lp/sergio:10/23/2017 11:35:40 Independent Contractor: Nalini SCOTT(R)(Tanisha), [facility] letter sent: Normal over 40 Mammogram BI-RADS: 1 Negative Acid Mixer: Sergio Transcribe Date/Time: Oct 23 2017 10:06A Dictated by: AURORA SUAREZ MD This examination was interpreted and the report reviewed and electronically signed by: AURORA SUAREZ MD on Oct 23 2017 11:35AM EST [id number] PROGRESS Observed: 10/23/2017 Status: COMPLETED Source: [place] 10:[address] [facility] REPOSITORY HNO ID: [id number] Author: Lynn Scott Service: (none) Author Type: (none) Type: Progress Notes Filed: 10/23/2017 10:09 AM Note Text: Radiology Service Progress Note PATIENT NAME: Alba Flores DATE OF SERVICE: October 23, 2017 TIME: 10:09 AM PATIENT IDENTITY VERIFICATION COMPLETED USING TWO (2) METHODS: Patient confirmed name verbally and Date of . PATIENT GENDER DATA: Female. status: : No status: NO. PATIENT RELEVANT IMPLANT DATA REVIEWED: Not Applicable RADIOLOGY DEPARTMENT: [facility] IV DATA: Not applicable SIGNED BY: Lynn Scott October 23, 2017 10:09 AM PROGRESS Observed: 09/28/2017 Status: COMPLETED Source: [place] 9:23 AM [facility] REPOSITORY HNO ID: [id number] Author: Valarie Mckeon Service: (none) Author Type: Piercer Operator Type: Progress Notes Filed: 09/28/2017 9:23 AM Note Text: Radiology Service Progress Note PATIENT NAME: Alba Flores DATE OF SERVICE: September 28, 2017 TIME: 9:23 AM PATIENT IDENTITY VERIFICATION COMPLETED USING TWO (2) METHODS: Patient confirmed name verbally and Date of . PATIENT GENDER DATA: Female. status: : No status: N/A PATIENT RELEVANT IMPLANT DATA REVIEWED: Not Applicable RADIOLOGY DEPARTMENT: Ultrasound RUQ PERIPHERAL IV DATA: Not applicable SIGNED BY: VALARIE MCKEON RDMS RVAlexis September 28, 2017 9:23 AM US ABD RIGHT UPPER Observed: 09/28/2017 Status: F Source: [facility] 9:22 AM [facility] REPOSITORY * * *Final Report* * * DATE OF EXAM: Sep 28 2017 9:22AM [facility] 1032 - US ABD RIGHT UPPER QUADRANT / PROCEDURE REASON: Cholesterolosis of gallbladder * * * * Physician Interpretation * * * * EXAMINATION: RIGHT UPPER QUADRANT ULTRASOUND CLINICAL HISTORY: Gallbladder polyp TECHNIQUE: Sonography of the right upper quadrant was performed. Images were obtained and stored in a permanent archive. MQ: [id number] COMPARISON: 07/04/2017 RESULT: Pancreas: Largely obscured by gas Liver: Echotexture: Mildly heterogeneous Echogenicity: Increased Surface contour: Smooth Lesions: None. Biliary: No intrahepatic biliary duct dilation. CBD: 0.5 cm at the hilum. Gallbladder: Normal caliber -Contents: No cholelithiasis -Wall: 3 mm gallbladder polyp again identified Right Kidney: No hydronephrosis. Ascites: None. IMPRESSION: FATTY LIVER STABLE SMALL GALLBLADDER POLYP NO FURTHER FOLLOW-UP RECOMMENDED FOR THE GALLBLADDER POLYP ACCORDING TO THE ACR INCIDENTALOMA COMMITTEE II ON GALLBLADDER AND BILIARY FINDINGS (J Am Roger Radiol 2013; 10:953-956) Acid Mixer: MYLA Transcribe Date/Time: Sep 28 2017 1:43P Dictated by : KIKE MUNROE MD This examination was interpreted and the report reviewed and electronically signed by: KIKE MUNROE MD on Sep 28 2017 1:45PM EST [id number] CBC AND DIFFERENTIAL Collected: 09/22/2017 Status: F Source: [place] 10:36 AM [facility] REPOSITORY TYPE CODE TESTS RESULT OUT OF REFERENCE UNITS RANGE LAB WBC 3.70-11.00 k/uL WBC 6.38 LAB RBC 3.90-5.20 m/uL RBC High 6.06 LAB HGB 11.5-15.5 g/dL High Hemoglobin 17.4 LAB HCT 36.0-46.0 % High Hematocrit 57.3 LAB MCV 80.0-100.0 fL MCV 94.6 LAB MCH 26.0-34.0 pG MCH 28.7 LAB MCHC 30.5-36.0 g/dL Low MCHC 30.4 LAB RDWCV 11.5-15.0 % RDW-CV 13.4 LAB PLTCT 150-400 k/uL Platelet Count 169 LAB MPV 9.0-12.7 fL MPV 12.2 LAB ANEUT % Neut% 52.7 LAB AANEUT 1.45-7.50 k/uL Abs Neut 3.35 LAB ALYMP % Lymph% 37.5 LAB AALYMP 1.00-4.00 k/uL Abs Lymph 2.39 LAB AMONO % [place]% 8.2 LAB AAMONO <0.87 k/uL Abs [place] 0.52 LAB AEOS % Eosin% 1.6 LAB AAEOS <0.46 k/uL Abs Eosin 0.10 LAB ABASO % Baso% 0.0 LAB AABASO <0.11 k/uL Abs Baso <0.03 LAB AUNRBC 0 /100 WBC NRBCs 0.0 LAB ABNRBC <0.01 k/uL Absolute nRBC <0.01 LAB DTYP DTYPE Auto Diff Performed By: #### CBCDIF, BMP, LIPA, AHCV #### [facility] [address] [place] [place], [place] [address] BASIC METABOLIC PANL Collected: 09/22/2017 Status: F Source: [place] 10:36 AM [facility] REPOSITORY TYPE CODE TESTS RESULT OUT OF REFERENCE UNITS RANGE LAB GLU 74-99 mg/dL Glucose 85 Result Comment: The [place] Diabetes Association (ADA) provides guidance for cutoff values for fasting glucose and random glucose. The ADA defines fasting as no caloric intake for at least 8 hours. Fas ting plasma glucose results between 100 to 125 mg/dL indicate increased risk for diabetes (prediabetes). Fasting plasma glucose results greater than or equal to 126 mg/dL meet the criteria for diagnosis of diabetes. In the absence of unequivocal hyperglycemia, results should be confirmed by repeat testing. In a patient with classic symptoms of hyperglycemia or hyperglycemic crisis, random plasma glucose results greater than or equal to 200 mg/dL meet the criteria for diagnosis of diabetes. Reference: Standards of Medical Care in Diabetes 2016, [place] Diabetes Association. Diabetes Care. 2016.39(Suppl 1). LAB BUN 7-21 mg/dL BUN 14 LAB CRET 0.58-0.96 mg/dL Creatinine High 1.04 LAB NA 136-144 mmol/L Sodium 143 LAB K 3.7-5.1 mmol/L Potassium 4.6 LAB CL 97-105 mmol/L Chloride 101 LAB CO2 22-30 mmol/L CO2 28 LAB AGAP 9-18 mmol/L Anion Gap 14 LAB CA 8.5-10.2 mg/dL Calcium, Total 9.1 LAB GFRAA eGFR- Amer. >60 LAB GFRNAA . eGFR-All Other Races 53 Result Comment: eGFR (Estimated GFR) Units of measure: mL/min/1.73 meters squared eGFR is derived from the reexpressed MDRD Study equation using the following parameters: serum creatinine, age, gender and race. The creatinine assay has been calibrated to be traceable to IDMS. An eGFR <60 mL/min/1.73m2 for >3 months is consistent with chronic kidney disease. Refer to KDOQI guidelines for clinical interpretation. In patients with unstable renal function, e.g. those with acute kidney injury, the eGFR may not accurately reflect actual GFR. Performed By: #### CBCDIF, BMP, LIPA, AHCV #### [facility] [address] [address] LIPASE Collected: 09/22/2017 Status: F Source: [place] 10:36 AM [facility] REPOSITORY TYPE CODE TESTS RESULT OUT OF REFERENCE UNITS RANGE LAB LIPA 16-61 U/L Lipase 22 Performed By: #### CBCDIF, BMP, LIPA, AHCV #### [facility] [address] [address] HEPATITIS C AB IA Collected: 09/22/2017 Status: F Source: [place] 10:36 AM [facility] REPOSITORY TYPE CODE TESTS RESULT OUT OF REFERENCE UNITS RANGE LAB AHCV Negative Hepatitis C Ab Negative IA Performed By: #### CBCDIF, BMP, LIPA, AHCV #### [facility] [address] [address] PROGRESS Observed: 09/22/2017 Status: COMPLETED Source: [place] 10:[address] [facility] REPOSITORY O ID: [id number] Author: Sanchez Spears Service: (none) Author Type: Physician Type: Progress Notes Filed: 09/22/2017 10:14 AM Note Text: No chief complaint on file. HPI: Patient presents today for office visit for follow up. HYPERTENSION: bp is much better. No chest pain or shortness of breath. No edema. GASTROENTEROLOGY:still feels great. Seems to be much better. Did not get repeat labs. Has a gallbladder polyp. Discussed following in six months. MEDICATIONS: Current Outpatient Prescriptions: lisinopril (ZESTRIL, PRINIVIL) 20 mg tablet Take 1.5 tablets by mouth once daily. omeprazole (PRILOSEC) 20 mg capsule Take 1 capsule by mouth once daily. CALCIUM CARBONATE/VITAMIN D3 (CALCIUM + D ORAL) Take by mouth. DOCOSAHEXANOIC ACID/EPA (FISH OIL ORAL) Take by mouth. No current facility-administered medications for this visit. ALLERGIES: ALLERGIES Allergen Reactions - Asa [Aspirin] GI Upset PAST MEDICAL HISTORY Diagnosis Date - Borderline diabetes 12/2014 - Endometrial cancer, grade I (HCC) 12/2014 - HTN (hypertension) 12/2014 - Morbid obesity with BMI of 60.0-69.9, adult (HCC) - Osteopenia PAST SURGICAL HISTORY Procedure Laterality Date - APPENDECTOMY - LAP, SUPRACERVIAL HYSTERECTOMY W/ TUBEANDOV, <250G 2014 - TUBAL LIGATION HX FAMILY HISTORY Problem Relation Age of Onset - COPD Mother - Heart Father - Colon Cancer Sister Social History Marital status: Spouse name: Years of education: Number of children: Social History Main Topics Smoking status: Former Smoker Packs/day: 1.00 Years: 5.00 Types: Cigarettes Quit date: 04/17/1984 Smokeless tobacco: Never Used Alcohol use: Yes Comment: rarely Drug use: No Sexual activity: No Reviewed current medications, allergies, past medical history, surgical history, family history and social history today. REVIEW OF SYSTEMS All other reviewed and negative other than HPI. HEALTH MAINTENANCE: Reviewed health maintenance issues today and recommended the following in detail. HEPATITIS C SCREENING due on 1992 MAMMOGRAM due on 10/17/2017 VITALS: BP 134/82 Pulse 84 Resp 16 Last 4 Encounter Wt Readings: Date: Wt: 07/03/2017 154 kg (339 lb 9.6 oz) 06/26/2017 156.5 kg (345 lb) 04/14/2017 157.4 kg (347 lb) 12/23/2016 155.1 kg (342 lb) PHYSICAL EXAMINATION: General appearance: Well appearing, alert, in no acute distress, well-hydrated, well nourished. Skin: Skin color, texture, turgor normal, no suspicious rashes or lesion Lungs: Lungs clear to auscultation. No wheezing, rhonchi, rales Heart: RRR without murmur, gallop, or rubs. No ectopy Abdomen: Normal abdominal exam, Abdomen soft, non-tender. Bowel sounds normal. No masses, organomegaly ASSESSMENT/PLAN: 1. Essential hypertension - ICD9: 401.9, ICD10: I10 (primary diagnosis) - good control - Continue current medication(s) - Encouraged dietary sodium restriction/DASH diet - Goal of BP <140/90 - LISINOPRIL 20 MG TABLET 2. GERD without esophagitis - ICD9: 530.81, ICD10: - stable - OMEPRAZOLE 20 MG CAPSULE,DELAYED RELEASE - change to prn 3. Generalized abdominal pain - ICD9: 789.07, ICD10: R10.84 - Call if recurs. - OMEPRAZOLE 20 MG CAPSULE,DELAYED RELEASE 4. Screening for breast cancer - ICD9: V76.10, ICD10: Z12.31 - Follow up for annual exam in one year. - MARTÍNEZ SCREENING 5. Need for hepatitis C screening test - ICD9: V73.89, ICD10: Z11.59 - HEP C AB IA BLOOD 6. Polycythemia - ICD9: 238.4, ICD10: D75.1 - CBC + DIFF 7. CKD (chronic kidney disease) stage 3, GFR 30-59 ml/min - ICD9: 585.3, ICD10: N18.3 - BASIC METABOLIC PNL 8. Elevated lipase - ICD9: 790.5, ICD10: R74.8 - LIPASE BLD 9. Gallbladder polyp - ICD9: 575.6, ICD10: K82.4 - US ABD RT UPPER QUADRANT Sanchez Spears MD RTO in six months and prn. CNOV Observed: 09/22/2017 Status: COMPLETED Source: [place] 9:00 AM [facility] REPOSITORY Office Visit ([facility]) ALBA FLORES ([id number]) 1950 F Date Time Provider Department 09/22/17 9:00 AM SANCHEZ SPEARS During your visit today, we recorded the following information about you: Pulse Respiration Blood pressure 84/minute 16/minute 134/82 Sanchez Spears MD 09/22/2017 10:14 AM Signed No chief complaint on file. HPI: Patient presents today for office visit for follow up. HYPERTENSION: bp is much better. No chest pain or shortness of breath. No edema. GASTROENTEROLOGY:still feels great. Seems to be much better. Did not get repeat labs. Has a gallbladder polyp. Discussed following in six months. MEDICATIONS: Current Outpatient Prescriptions: lisinopril (ZESTRIL, PRINIVIL) 20 mg tablet Take 1.5 tablets by mouth once daily. omeprazole (PRILOSEC) 20 mg capsule Take 1 capsule by mouth once daily. CALCIUM CARBONATE/VITAMIN D3 (CALCIUM + D ORAL) Take by mouth. DOCOSAHEXANOIC ACID/EPA (FISH OIL ORAL) Take by mouth. No current facility-administered medications for this visit. ALLERGIES: ALLERGIES Allergen Reactions - Asa [Aspirin] GI Upset PAST MEDICAL HISTORY Diagnosis Date - Borderline diabetes 12/2014 - Endometrial cancer, grade I (HCC) 12/2014 - HTN (hypertension) 12/2014 - Morbid obesity with BMI of 60.0-69.9, adult (HCC) - Osteopenia PAST SURGICAL HISTORY Procedure Laterality Date - APPENDECTOMY - LAP, SUPRACERVIAL HYSTERECTOMY W/ TUBEANDOV, <250G 2014 - TUBAL LIGATION HX FAMILY HISTORY Problem Relation Age of Onset - COPD Mother - Heart Father - Colon Cancer Sister Social History Marital status: Spouse name: Years of education: Number of children: Social History Main Topics Smoking status: Former Smoker Packs/day: 1.00 Years: 5.00 Types: Cigarettes Quit date: 04/17/1984 Smokeless tobacco: Never Used Alcohol use: Yes Comment: rarely Drug use: No Sexual activity: No Reviewed current medications, allergies, past medical history, surgical history, family history and social history today. REVIEW OF SYSTEMS All other reviewed and negative other than HPI. HEALTH MAINTENANCE: Reviewed health maintenance issues today and recommended the following in detail. HEPATITIS C SCREENING due on 1992 MAMMOGRAM due on 10/17/2017 VITALS: BP 134/82 Pulse 84 Resp 16 Last 4 Encounter Wt Readings: Date: Wt: 07/03/2017 154 kg (339 lb 9.6 oz) 06/26/2017 156.5 kg (345 lb) 04/14/2017 157.4 kg (347 lb) 12/23/2016 155.1 kg (342 lb) PHYSICAL EXAMINATION: General appearance: Well appearing, alert, in no acute distress, well-hydrated, well nourished. Skin: Skin color, texture, turgor normal, no suspicious rashes or lesion Lungs: Lungs clear to auscultation. No wheezing, rhonchi, rales Heart: RRR without murmur, gallop, or rubs. No ectopy Abdomen: Normal abdominal exam, Abdomen soft, non-tender. Bowel sounds normal. No masses, organomegaly ASSESSMENT/PLAN: 1. Essential hypertension - ICD9: 401.9, ICD10: I10 (primary diagnosis) - good control - Continue current medication(s) - Encouraged dietary sodium restriction/DASH diet - Goal of BP <140/90 - LISINOPRIL 20 MG TABLET 2. GERD without esophagitis - ICD9: 530.81, ICD10: - stable - OMEPRAZOLE 20 MG CAPSULE,DELAYED RELEASE - change to prn 3. Generalized abdominal pain - ICD9: 789.07, ICD10: R10.84 - Call if recurs. - OMEPRAZOLE 20 MG CAPSULE,DELAYED RELEASE 4. Screening for breast cancer - ICD9: V76.10, ICD10: Z12.31 - Follow up for annual exam in one year. - MARTÍNEZ SCREENING 5. Need for hepatitis C screening test - ICD9: V73.89, ICD10: Z11.59 - HEP C AB IA BLOOD 6. Polycythemia - ICD9: 238.4, ICD10: D75.1 - CBC + DIFF 7. CKD (chronic kidney disease) stage 3, GFR 30-59 ml/min - ICD9: 585.3, ICD10: N18.3 - BASIC METABOLIC PNL 8. Elevated lipase - ICD9: 790.5, ICD10: R74.8 - LIPASE BLD 9. Gallbladder polyp - ICD9: 575.6, ICD10: K82.4 - US ABD RT UPPER QUADRANT Sanchez Spears MD RTO in six months and prn. Referring Provider: SELF [[id number]] Allergies As of Date: 09/22/2017 Noted Allergy Reaction ASA (ASPIRIN) 01/16/2015 8 - GI Upset Date Reviewed: 09/22/2017 Reviewed by: Crissy Easton Ma - Fully Assessed Primary Visit Diagnosis:Essential hypertension [I10] Other Visit Diagnoses:GERD without esophagitis [K21.9] Generalized abdominal pain [R10.84] Screening for breast cancer [Z12.31] Need for hepatitis C screening test [Z11.59] Polycythemia [D75.1] CKD (chronic kidney disease) stage 3, GFR 30-59 ml/min [N18.3] Elevated lipase [R74.8] Gallbladder polyp [K82.4] Order(s):lisinopril (ZESTRIL, PRINIVIL) 20 mg tabletTake 1.5 tablets by mouth once daily.Disp: 30 tabletRfl: 5 omeprazole (PRILOSEC) 20 mg capsuleTake 1 capsule by mouth once daily.Disp: 30 capsuleRfl: 5 MARTÍNEZ SCREENING [[id number]] Order #: [id number] FUTURE HEP C AB IA BLOOD [SQAHCV] Order #: [id number] FUTURE US ABD RT UPPER QUADRANT [[id number]] Order #: [id number] FUTURE LIPASE BLD [SQLIPA] Order #: [id number] FUTURE CBC + DIFF [SQCBCDIF] Order #: [id number] FUTURE BASIC METABOLIC PNL [SQBMP] Order #: [id number] FUTURE Prescriptions as of 09/22/2017 Sig: LISINOPRIL 20 MG TABLET Take 1.5 tablets by mouth onc* OMEPRAZOLE 20 MG CAPSULE,CECILIA* Take 1 capsule by mouth once * CALCIUM + D ORAL Take by mouth. FISH OIL ORAL Take by mouth. Problem List As Of Date 09/22/2017 Noted Resolved HTN (hypertension) [I10] Borderline diabetes [R73.03] INVALID FOR* Endometrial cancer, grade I (HCC) [C54.1] INVALID FOR* Morbid obesity (HCC) [E66.01] INVALID FOR* Osteopenia [M85.80] INVALID FOR* Prescriptions ordered this encounter Disp Refills Start End LISINOPRIL 20 MG TABLET 30 t* 5 09/22/2017 12/21/2017 Route: ORAL Sig: Take 1.5 tablets by mouth once daily. OMEPRAZOLE 20 MG CAPSULE,DELAYED REL* 30 c* 5 09/22/2017 Route: ORAL Sig: Take 1 capsule by mouth once daily. Medications Discontinued During This Encounter olopatadine (PATANOL) 0.1 % ophthalm* 1 Deo* 2 04/14/2017 09/22/2017 Route: BOTH EYES Sig: Use 1 Drop in both eyes twice daily. Disc: Course of therapy completed lisinopril (ZESTRIL, PRINIVIL) 20 mg* 30 t* 2 07/03/2017 09/22/2017 Route: ORAL Sig: Take 1.5 tablets by mouth once daily. Disc: Reason for discontinue is not on file. omeprazole (PRILOSEC) 20 mg capsule 30 c* 2 06/26/2017 09/22/2017 Route: ORAL Sig: Take 1 capsule by mouth once daily. Disc: Reason for discontinue is not on file. Disposition: Return in about 6 months (around 03/24/2018). Follow-up and Disposition History Recorded Encounter Status:Closed by SANCHEZ SPEARS MD on 09/22/17 ABD SPLEEN -NB Observed: 07/04/2017 Status: F Source: [place] 11:17 AM [facility] REPOSITORY * * *Final Report* * * DATE OF EXAM: Jul 04 2017 11:17AM [facility] 1232 - ABD SPLEEN -NB / PROCEDURE REASON: Epigastric pain * * * * Physician Interpretation * * * * EXAMINATION: RIGHT UPPER QUADRANT AND SPLEEN ULTRASOUND HISTORY: Epigastric pain. TECHNIQUE: Sonography of the right upper quadrant was performed. Images were obtained and stored in a permanent archive. M: URUQ_1 COMPARISON: CT abdomen and pelvis dated 02/04/2015. RESULT: Pancreas: Not seen secondary to overlying bowel gas. Liver: Echotexture: Normal, homogeneous. Echogenicity: Mildly increased Surface contour: Smooth Lesions: None. Biliary: No intrahepatic biliary duct dilation. CBD: 0.4 cm at the hilum. Gallbladder: Normal caliber -Contents: No cholelithiasis. There is an approximately 3 mm gallbladder polyp. -Wall: Normal -Other: No pericholecystic fluid. Kidneys: No hydronephrosis. The right kidney measures approximately 11.3 cm. The left kidney measures approximately 13 cm. Ascites: None. Spleen: The spleen measures approximately 7.7 x 8.4 x 9.2 cm and appears grossly unremarkable. IMPRESSION: Suspected mild fatty infiltration of liver, without focal hepatic lesion. Approximately 3 mm gallbladder polyp. No shadowing gallstone or convincing sonographic evidence for acute cholecystitis. Acid Mixer: MYLA Transcribe Date/Time: Jul 04 2017 11:51A Dictated by : ALIVIA GREGORY MD This examination was interpreted and the report reviewed and electronically signed by: ALIVIA GREGORY MD on Jul 04 2017 11:53AM EST [id number] US ABD RIGHT UPPER Observed: 07/04/2017 Status: F Source: [facility] 11:17 AM [facility] REPOSITORY * * *Final Report* * * DATE OF EXAM: Jul 04 2017 11:17AM [facility] 1032 - US ABD RIGHT UPPER QUADRANT / PROCEDURE REASON: Epigastric pain * * * * Physician Interpretation * * * * EXAMINATION: RIGHT UPPER QUADRANT AND SPLEEN ULTRASOUND HISTORY: Epigastric pain. TECHNIQUE: Sonography of the right upper quadrant was performed. Images were obtained and stored in a permanent archive. M: URUQ_1 COMPARISON: CT abdomen and pelvis dated 02/04/2015. RESULT: Pancreas: Not seen secondary to overlying bowel gas. Liver: Echotexture: Normal, homogeneous. Echogenicity: Mildly increased Surface contour: Smooth Lesions: None. Biliary: No intrahepatic biliary duct dilation. CBD: 0.4 cm at the hilum. Gallbladder: Normal caliber -Contents: No cholelithiasis. There is an approximately 3 mm gallbladder polyp. -Wall: Normal -Other: No pericholecystic fluid. Kidneys: No hydronephrosis. The right kidney measures approximately 11.3 cm. The left kidney measures approximately 13 cm. Ascites: None. Spleen: The spleen measures approximately 7.7 x 8.4 x 9.2 cm and appears grossly unremarkable. IMPRESSION: Suspected mild fatty infiltration of liver, without focal hepatic lesion. Approximately 3 mm gallbladder polyp. No shadowing gallstone or convincing sonographic evidence for acute cholecystitis. Acid Mixer: MYLA Transcribe Date/Time: Jul 04 2017 11:51A Dictated by : ALIVIA GREGORY MD This examination was interpreted and the report reviewed and electronically signed by: ALIVIA GREGORY MD on Jul 04 2017 11:53AM EST [id number] PROGRESS Observed: 07/04/2017 Status: COMPLETED Source: [place] 10:38 AM [facility] REPOSITORY HNO ID: [id number] Author: Selena Hewitt Service: (none) Author Type: (none) Type: Progress Notes Filed: 07/04/2017 11:23 AM Note Text: Radiology Service Progress Note PATIENT NAME: Alba Flores DATE OF SERVICE: July 04, 2017 TIME: 10:38 AM PATIENT IDENTITY VERIFICATION COMPLETED USING TWO (2) METHODS: Patient confirmed name verbally and Date of . PATIENT GENDER DATA: Female. status: : No status: NO. PATIENT RELEVANT IMPLANT DATA REVIEWED: Not Applicable RADIOLOGY DEPARTMENT: Ultrasound PERIPHERAL IV DATA: Not applicable SIGNED BY: Selena Hewitt July 04, 2017 10:38 AM PROGRESS Observed: 07/03/2017 Status: COMPLETED Source: [place] 10:08 AM [facility] REPOSITORY HNO ID: [id number] Author: Sanchez Spears Service: (none) Author Type: Physician Type: Progress Notes Filed: 07/03/2017 10:20 AM Note Text: Patient presents with: GERD: recheck HPI: Patient presents today for office visit for follow up on abd pain. Discussed labs. Reviewed labs with her. She has had second hand smoke exposure. She is feeling better. Was able to eat and did not have any discomfort. Has not been eating much. Taking prilosec daily. Mostly existing on boiled eggs, pudding, yogurt and baked potato. No heartburn. No fever or chills. No urinary issues. No nausea or vomiting. No constipation. She does get loose stools after eating. Component Latest Ref Rng AND Units 06/26/2017 WBC 3.70 - 11.00 k/uL 7.66 RBC 3.90 - 5.20 m/uL 6.19 (H) Hemoglobin 11.5 - 15.5 g/dL 18.0 (H) Hematocrit 36.0 - 46.0 % 59.9 (H) MCV 80.0 - 100.0 fL 96.8 MCH 26.0 - 34.0 pG 29.1 MCHC 30.5 - 36.0 g/dL 30.1 (L) RDW-CV 11.5 - 15.0 % 13.1 Platelet Count 150 - 400 k/uL 176 MPV 9.0 - 12.7 fL 12.1 Neut% % 62.4 Abs Neut (ANC) 1.45 - 7.50 k/uL 4.77 Lymph% % 28.5 Abs Lymph 1.00 - 4.00 k/uL 2.18 Pendleton% % 8.0 Abs Pendleton <0.87 k/uL 0.61 Eosin% % 0.8 Abs Eosin <0.46 k/uL 0.06 Baso% % 0.3 Abs Baso <0.11 k/uL <0.03 Nucleated Reds 0 /100 WBC 0.0 Absolute nRBC <0.01 k/uL <0.01 Diff Type Auto Diff Protein, Total 6.3 - 8.0 g/dL 7.4 Albumin 3.9 - 4.9 g/dL 4.1 Calcium 8.5 - 10.2 mg/dL 10.0 Bilirubin, Total 0.2 - 1.3 mg/dL 0.4 Alkaline Phosphatase 32 - 117 U/L 109 AST 13 - 35 U/L 29 Glucose 74 - 99 mg/dL 83 BUN 7 - 21 mg/dL 18 Creatinine 0.58 - 0.96 mg/dL 1.09 (H) Sodium 136 - 144 mmol/L 140 Potassium 3.7 - 5.1 mmol/L 4.7 Chloride 97 - 105 mmol/L 96 (L) CO2 22 - 30 mmol/L 25 Anion Gap 9 - 18 mmol/L 19 (H) ALT 7 - 38 U/L 39 (H) eGFR- >60 eGFR-All Other Races . 50 Lipase 16 - 61 U/L 267 (H) MEDICATIONS: Current Outpatient Prescriptions: omeprazole (PRILOSEC) 20 mg capsule Take 1 capsule by mouth once daily. olopatadine (PATANOL) 0.1 % ophthalmic solution Use 1 Drop in both eyes twice daily. lisinopril (ZESTRIL, PRINIVIL) 20 mg tablet Take 1 tablet by mouth once daily. CALCIUM CARBONATE/VITAMIN D3 (CALCIUM + D ORAL) Take by mouth. DOCOSAHEXANOIC ACID/EPA (FISH OIL ORAL) Take by mouth. No current facility-administered medications for this visit. ALLERGIES: ALLERGIES Allergen Reactions - Asa [Aspirin] GI Upset PAST MEDICAL HISTORY Diagnosis Date - Borderline diabetes 12/2014 - Endometrial cancer, grade I (HCC) 12/2014 - HTN (hypertension) 12/2014 - Morbid obesity with BMI of 60.0-69.9, adult (HCC) - Osteopenia PAST SURGICAL HISTORY Procedure Laterality Date - APPENDECTOMY - LAP, SUPRACERVIAL HYSTERECTOMY W/ TUBEANDOV, <250G 2014 - TUBAL LIGATION HX FAMILY HISTORY Problem Relation Age of Onset - COPD Mother - Heart Father - Colon Cancer Sister Social History Marital status: Spouse name: Years of education: Number of children: Social History Main Topics Smoking status: Former Smoker Packs/day: 1.00 Years: 5.00 Types: Cigarettes Quit date: 04/17/1984 Smokeless status: Never Used Alcohol use: Yes Comment: rarely Drug use: No Sexual activity: No Reviewed current medications, allergies, past medical history, surgical history, family history and social history today. REVIEW OF SYSTEMS All other reviewed and negative other than HPI. VITALS: BP 140/86 Pulse 76 Resp 16 Wt (!) 154 kg (339 lb 9.6 oz) BMI 61.62 kg/m2 Last 4 Encounter Wt Readings: Date: Wt: 07/03/2017 154 kg (339 lb 9.6 oz) 06/26/2017 156.5 kg (345 lb) 04/14/2017 157.4 kg (347 lb) 12/23/2016 155.1 kg (342 lb) PHYSICAL EXAMINATION: General appearance: Well appearing, alert, in no acute distress, well-hydrated, well nourished. Skin: Skin color, texture, turgor normal, no suspicious rashes or lesions Head: Normocephalic, no masses, lesions, tenderness or abnormalities Lungs: Lungs clear to auscultation. No wheezing, rhonchi, rales Heart: RRR without murmur, gallop, or rubs. No ectopy Abdomen: Abdomen soft, non-tender. Bowel sounds normal. No masses, organomegaly ASSESSMENT/PLAN: 1. Epigastric pain - ICD9: 789.06, ICD10: R10.13 (primary diagnosis) - continue prilosec. Advance diet as tolerated. Consider gi if continues. Call if any issues. Gets labs. - US ABD RT UPPER QUADRANT 2. Essential hypertension - ICD9: 401.9, ICD10: I10 - suboptimal control - Increase lisinopril (Zestril/Prinivil) - Goal of BP <140/90 - LISINOPRIL 20 MG TABLET Sanchez Spears MD RTO in two weeks and prn. CNOV Observed: 07/03/2017 Status: COMPLETED Source: [place] 9:40 AM [facility] REPOSITORY [facility] ALBA FLORES Lamont ([id number]) 1950 F Date Time Provider Department 07/03/17 9:40 AM SANCHEZ SPEARS [facility] During your visit today, we recorded the following information about you: Pulse Respiration Blood pressure Weight 76/minute 16/minute 140/86 154 kg Crissy Easton Ma 07/03/2017 9:50 AM Signed GERD: Pt has been taking omeprazole 20 mg daily since last visit on 06/26/17. Heartburn: controlled with a bland diet of boiled eggs, yogurt, pudding, baked potato Pt is afraid to eat much. She had chicken and green beans and has some burning. No burping. No bloody or black stools. No constipation. Loose stools have improved. No current abd pain No fever or chills. No nsaids use. No etoh. Patient is very anxious and nervous. Sanchez Spears MD 07/03/2017 10:20 AM Signed Patient presents with: GERD: recheck HPI: Patient presents today for office visit for follow up on abd pain. Discussed labs. Reviewed labs with her. She has had second hand smoke exposure. She is feeling better. Was able to eat and did not have any discomfort. Has not been eating much. Taking prilosec daily. Mostly existing on boiled eggs, pudding, yogurt and baked potato. No heartburn. No fever or chills. No urinary issues. No nausea or vomiting. No constipation. She does get loose stools after eating. Component Latest Ref Rng ANDamp; Units 06/26/2017 WBC 3.70 - 11.00 k/uL 7.66 RBC 3.90 - 5.20 m/uL 6.19 (H) Hemoglobin 11.5 - 15.5 g/dL 18.0 (H) Hematocrit 36.0 - 46.0 % 59.9 (H) MCV 80.0 - 100.0 fL 96.8 MCH 26.0 - 34.0 pG 29.1 MCHC 30.5 - 36.0 g/dL 30.1 (L) RDW-CV 11.5 - 15.0 % 13.1 Platelet Count 150 - 400 k/uL 176 MPV 9.0 - 12.7 fL 12.1 Neut% % 62.4 Abs Neut (ANC) 1.45 - 7.50 k/uL 4.77 Lymph% % 28.5 Abs Lymph 1.00 - 4.00 k/uL 2.18 Pendleton% % 8.0 Abs Pendleton ANDlt;0.87 k/uL 0.61 Eosin% % 0.8 Abs Eosin ANDlt;0.46 k/uL 0.06 Baso% % 0.3 Abs Baso ANDlt;0.11 k/uL ANDlt;0.03 Nucleated Reds 0 /100 WBC 0.0 Absolute nRBC ANDlt;0.01 k/uL ANDlt;0.01 Diff Type Auto Diff Protein, Total 6.3 - 8.0 g/dL 7.4 Albumin 3.9 - 4.9 g/dL 4.1 Calcium 8.5 - 10.2 mg/dL 10.0 Bilirubin, Total 0.2 - 1.3 mg/dL 0.4 Alkaline Phosphatase 32 - 117 U/L 109 AST 13 - 35 U/L 29 Glucose 74 - 99 mg/dL 83 BUN 7 - 21 mg/dL 18 Creatinine 0.58 - 0.96 mg/dL 1.09 (H) Sodium 136 - 144 mmol/L 140 Potassium 3.7 - 5.1 mmol/L 4.7 Chloride 97 - 105 mmol/L 96 (L) CO2 22 - 30 mmol/L 25 Anion Gap 9 - 18 mmol/L 19 (H) ALT 7 - 38 U/L 39 (H) eGFR- ANDgt;60 eGFR-All Other Races . 50 Lipase 16 - 61 U/L 267 (H) MEDICATIONS: Current Outpatient Prescriptions: omeprazole (PRILOSEC) 20 mg capsule Take 1 capsule by mouth once daily. olopatadine (PATANOL) 0.1 % ophthalmic solution Use 1 Drop in both eyes twice daily. lisinopril (ZESTRIL, PRINIVIL) 20 mg tablet Take 1 tablet by mouth once daily. CALCIUM CARBONATE/VITAMIN D3 (CALCIUM + D ORAL) Take by mouth. DOCOSAHEXANOIC ACID/EPA (FISH OIL ORAL) Take by mouth. No current facility-administered medications for this visit. ALLERGIES: ALLERGIES Allergen Reactions - Asa [Aspirin] GI Upset PAST MEDICAL HISTORY Diagnosis Date - Borderline diabetes 12/2014 - Endometrial cancer, grade I (HCC) 12/2014 - HTN (hypertension) 12/2014 - Morbid obesity with BMI of 60.0-69.9, adult (HCC) - Osteopenia PAST SURGICAL HISTORY Procedure Laterality Date - APPENDECTOMY - LAP, SUPRACERVIAL HYSTERECTOMY W/ TUBEANDamp;OV, ANDlt;250G 2014 - TUBAL LIGATION HX FAMILY HISTORY Problem Relation Age of Onset - COPD Mother - Heart Father - Colon Cancer Sister Social History Marital status: Spouse name: Years of education: Number of children: Social History Main Topics Smoking status: Former Smoker Packs/day: 1.00 Years: 5.00 Types: Cigarettes Quit date: 04/17/1984 Smokeless status: Never Used Alcohol use: Yes Comment: rarely Drug use: No Sexual activity: No Reviewed current medications, allergies, past medical history, surgical history, family history and social history today. REVIEW OF SYSTEMS All other reviewed and negative other than HPI. VITALS: BP 140/86 Pulse 76 Resp 16 Wt (!) 154 kg (339 lb 9.6 oz) BMI 61.62 kg/m2 Last 4 Encounter Wt Readings: Date: Wt: 07/03/2017 154 kg (339 lb 9.6 oz) 06/26/2017 156.5 kg (345 lb) 04/14/2017 157.4 kg (347 lb) 12/23/2016 155.1 kg (342 lb) PHYSICAL EXAMINATION: General appearance: Well appearing, alert, in no acute distress, well-hydrated, well nourished. Skin: Skin color, texture, turgor normal, no suspicious rashes or lesions Head: Normocephalic, no masses, lesions, tenderness or abnormalities Lungs: Lungs clear to auscultation. No wheezing, rhonchi, rales Heart: RRR without murmur, gallop, or rubs. No ectopy Abdomen: Abdomen soft, non-tender. Bowel sounds normal. No masses, organomegaly ASSESSMENT/PLAN: 1. Epigastric pain - ICD9: 789.06, ICD10: R10.13 (primary diagnosis) - continue prilosec. Advance diet as tolerated. Consider gi if continues. Call if any issues. Gets labs. - US ABD RT UPPER QUADRANT 2. Essential hypertension - ICD9: 401.9, ICD10: I10 - suboptimal control - Increase lisinopril (Zestril/Prinivil) - Goal of BP ANDlt;140/90 - LISINOPRIL 20 MG TABLET Sanchez Spears MD RTO in two weeks and prn. Referring Provider: SELF [[id number]] Allergies As of Date: 07/03/2017 Noted Allergy Reaction ASA (ASPIRIN) 01/16/2015 8 - GI Upset Date Reviewed: 07/03/2017 Reviewed by: Crissy Easton Ma - Fully Assessed Reason for Visit: GERD [[id number]] Cmt: recheck Primary Visit Diagnosis:Epigastric pain [R10.13] Other Visit Diagnosis:Essential hypertension [I10] Order(s):lisinopril (ZESTRIL, PRINIVIL) 20 mg tabletTake 1.5 tablets by mouth once daily.Disp: 30 tabletRfl: 2 US ABD RT UPPER QUADRANT [[id number]] Order #: [id number] FUTURE Prescriptions as of 07/03/2017 Sig: LISINOPRIL 20 MG TABLET Take 1.5 tablets by mouth onc* OMEPRAZOLE 20 MG CAPSULE,CECILIA* Take 1 capsule by mouth once * OLOPATADINE 0.1 % EYE DROPS Use 1 Drop in both eyes twice* CALCIUM + D ORAL Take by mouth. FISH OIL ORAL Take by mouth. Problem List As Of Date 07/03/2017 Noted Resolved HTN (hypertension) [I10] Borderline diabetes [R73.03] INVALID FOR* Endometrial cancer, grade I (HCC) [C54.1] INVALID FOR* Morbid obesity (HCC) [E66.01] INVALID FOR* Osteopenia [M85.80] INVALID FOR* Visit Notes: >> Crissy Easton Ma Mon Jul 03, 2017 9:40 AM Status: Signed GERD: Pt has been taking omeprazole 20 mg daily since last visit on 06/26/17. Heartburn: controlled with a bland diet of boiled eggs, yogurt, pudding, baked potato Pt is afraid to eat much. She had chicken and green beans and has some burning. No burping. No bloody or black stools. No constipation. Loose stools have improved. No current abd pain No fever or chills. No nsaids use. No etoh. Patient is very anxious and nervous. Prescriptions ordered this encounter Disp Refills Start End LISINOPRIL 20 MG TABLET 30 t* 2 07/03/2017 10/01/2017 Route: ORAL Sig: Take 1.5 tablets by mouth once daily. Medications Discontinued During This Encounter lisinopril (ZESTRIL, PRINIVIL) 20 mg* 30 t* 2 04/14/2017 07/03/2017 Route: ORAL Sig: Take 1 tablet by mouth once daily. Disc: Reason for discontinue is not on file. Disposition: Return in about 2 weeks (around 07/17/2017). Follow-up and Disposition History Recorded Encounter Status:Closed by SANCHEZ SPEARS MD on 07/03/17 CBC AND DIFFERENTIAL Collected: 06/26/2017 Status: F Source: [place] 11:[address] [facility] REPOSITORY TYPE CODE TESTS RESULT OUT OF REFERENCE UNITS RANGE LAB WBC 3.70-11.00 k/uL WBC 7.66 LAB RBC 3.90-5.20 m/uL RBC High 6.19 LAB HGB 11.5-15.5 g/dL High Hemoglobin 18.0 LAB HCT 36.0-46.0 % High Hematocrit 59.9 LAB MCV 80.0-100.0 fL MCV 96.8 LAB MCH 26.0-34.0 pG MCH 29.1 LAB MCHC 30.5-36.0 g/dL Low MCHC 30.1 LAB RDWCV 11.5-15.0 % RDW-CV 13.1 LAB PLTCT 150-400 k/uL Platelet Count 176 LAB MPV 9.0-12.7 fL MPV 12.1 LAB ANEUT % Neut% 62.4 LAB AANEUT 1.45-7.50 k/uL Abs Neut 4.77 LAB ALYMP % Lymph% 28.5 LAB AALYMP 1.00-4.00 k/uL Abs Lymph 2.18 LAB AMONO % Pendleton% 8.0 LAB AAMONO <0.87 k/uL Abs Pendleton 0.61 LAB AEOS % Eosin% 0.8 LAB AAEOS <0.46 k/uL Abs Eosin 0.06 LAB ABASO % Baso% 0.3 LAB AABASO <0.11 k/uL Abs Baso <0.03 LAB AUNRBC 0 /100 WBC NRBCs 0.0 LAB ABNRBC <0.01 k/uL Absolute nRBC <0.01 LAB DTYP DTYPE Auto Diff Performed By: #### CBCDIF, CMP, LIPA #### [facility] [address] [place], [place] [address] COMP METABOLIC PANEL Collected: 06/26/2017 Status: F Source: [place] 11:[address] [facility] REPOSITORY TYPE CODE TESTS RESULT OUT OF REFERENCE UNITS RANGE LAB TP 6.3-8.0 g/dL Protein, Total 7.4 LAB ALB 3.9-4.9 g/dL Albumin 4.1 LAB CA 8.5-10.2 mg/dL Calcium, Total 10.0 LAB TBIL 0.2-1.3 mg/dL Bilirubin, Total 0.4 LAB ALKP 32-117 U/L Alkaline Phosphatase 109 LAB AST 13-35 U/L AST 29 LAB GLU 74-99 mg/dL Glucose 83 Result Comment: The [place] Diabetes Association (ADA) provides guidance for cutoff values for fasting glucose and random glucose. The ADA defines fasting as no caloric intake for at least 8 hours. Fas ting plasma glucose results between 100 to 125 mg/dL indicate increased risk for diabetes (prediabetes). Fasting plasma glucose results greater than or equal to 126 mg/dL meet the criteria for diagnosis of diabetes. In the absence of unequivocal hyperglycemia, results should be confirmed by repeat testing. In a patient with classic symptoms of hyperglycemia or hyperglycemic crisis, random plasma glucose results greater than or equal to 200 mg/dL meet the criteria for diagnosis of diabetes. Reference: Standards of Medical Care in Diabetes 2016, [place] Diabetes Association. Diabetes Care. 2016.39(Suppl 1). LAB BUN 7-21 mg/dL BUN 18 LAB CRET 0.58-0.96 mg/dL Creatinine High 1.09 LAB NA 136-144 mmol/L Sodium 140 LAB K 3.7-5.1 mmol/L Potassium 4.7 LAB CL 97-105 mmol/L Low Chloride 96 LAB CO2 22-30 mmol/L CO2 25 LAB AGAP 9-18 mmol/L Anion Gap High 19 LAB ALT 7-38 U/L ALT High 39 LAB GFRAA eGFR- Amer. >60 LAB GFRNAA . eGFR-All Other Races 50 Result Comment: eGFR (Estimated GFR) Units of measure: mL/min/1.73 meters squared eGFR is derived from the reexpressed MDRD Study equation using the following parameters: serum creatinine, age, gender and race. The creatinine assay has been calibrated to be traceable to IDMS. An eGFR <60 mL/min/1.73m2 for >3 months is consistent with chronic kidney disease. Refer to KDOQI guidelines for clinical interpretation. In patients with unstable renal function, e.g. those with acute kidney injury, the eGFR may not accurately reflect actual GFR. Performed By: #### CBCDIF, CMP, LIPA #### [facility] [address] [place], [place] [address] LIPASE Collected: 06/26/2017 Status: F Source: [place] 11:49 [facility] REPOSITORY TYPE CODE TESTS RESULT OUT OF REFERENCE UNITS RANGE LAB LIPA 16-61 U/L High Lipase 267 Performed By: #### CBCDIF, CMP, LIPA #### [facility] [address] [place], [place] [address] PROGRESS Observed: 06/26/2017 Status: COMPLETED Source: [place] 11:13 [facility] REPOSITORY HNO ID: [id number] Author: Sanchez Spears Service: (none) Author Type: Physician Type: Progress Notes Filed: 06/26/2017 11:20 AM Note Text: Patient presents with: Abdominal Pain HPI: Patient presents today for office visit for follow up. Nursing Notes: Zahida Ortega LPN 06/26/2017 11:03 AM Signed Denies nausea, vomiting. Describes as burning feeling in stomach with diarrhea. Does have reflux symptoms. Using Tums and that helps. In the past had a bleeding ulcer but no blood noted with diarrhea. In the past has used medication to help, thinks was prevacid? Had egd etc. Was in her 30's or 40's. tums helps. Mild heartburn. Bothering her for 3 days. No burping. No bloody or black stools. No constipation. Some loose stools. No current abd pain No fever or chills. No nsaids use. No etoh. MEDICATIONS: Current Outpatient Prescriptions: lisinopril (ZESTRIL, PRINIVIL) 20 mg tablet Take 1 tablet by mouth once daily. olopatadine (PATANOL) 0.1 % ophthalmic solution Use 1 Drop in both eyes twice daily. CALCIUM CARBONATE/VITAMIN D3 (CALCIUM + D ORAL) Take by mouth. DOCOSAHEXANOIC ACID/EPA (FISH OIL ORAL) Take by mouth. No current facility-administered medications for this visit. ALLERGIES: ALLERGIES Allergen Reactions - Asa [Aspirin] GI Upset PAST MEDICAL HISTORY Diagnosis Date - Borderline diabetes 12/2014 - Endometrial cancer, grade I (HCC) 12/2014 - HTN (hypertension) 12/2014 - Morbid obesity with BMI of 60.0-69.9, adult (HCC) - Osteopenia PAST SURGICAL HISTORY Procedure Laterality Date - APPENDECTOMY - LAP, SUPRACERVIAL HYSTERECTOMY W/ TUBEANDOV, <250G 2014 - TUBAL LIGATION HX FAMILY HISTORY Problem Relation Age of Onset - COPD Mother - Heart Father - Colon Cancer Sister Social History Marital status: Spouse name: Years of education: Number of children: Social History Main Topics Smoking status: Former Smoker Packs/day: 1.00 Years: 5.00 Types: Cigarettes Quit date: 04/17/1984 Smokeless status: Never Used Alcohol use: Yes Comment: rarely Drug use: No Sexual activity: No Reviewed current medications, allergies, past medical history, surgical history, family history and social history today. REVIEW OF SYSTEMS All other reviewed and negative other than HPI. HEALTH MAINTENANCE: Reviewed health maintenance issues today and recommended the following in detail. VITALS: BP 142/92 Pulse 88 Temp 37.1 ?C (98.7 ?F) (Tympanic) Resp 14 Wt (!) 156.5 kg (345 lb) BMI 62.6 kg/m2 Last 4 Encounter Wt Readings: Date: Wt: 06/26/2017 156.5 kg (345 lb) 04/14/2017 157.4 kg (347 lb) 12/23/2016 155.1 kg (342 lb) 07/08/2016 155.7 kg (343 lb 3.2 oz) PHYSICAL EXAMINATION: General appearance: Well appearing, alert, in no acute distress, well-hydrated, well nourished. Skin: Skin color, texture, turgor normal, no suspicious rashes or lesions Head: Normocephalic, no masses, lesions, tenderness or abnormalities Lungs: Lungs clear to auscultation. No wheezing, rhonchi, rales Heart: RRR without murmur, gallop, or rubs. No ectopy Abdomen: Normal abdominal exam, Abdomen soft, non-tender. Bowel sounds normal. No masses, organomegaly Extremities: No deformities, edema, skin discoloration, clubbing or cyanosis. Good capillary refill. ASSESSMENT/PLAN: 1. GERD without esophagitis - ICD9: 530.81, ICD10: K21.9 (primary diagnosis) - Discussed lifestyle modifications including limiting caffeine, spicy foods etd. - Red flags for re-assessment reviewed with patient in detail. - OMEPRAZOLE 20 MG CAPSULE,DELAYED RELEASE - CBC + DIFF - COMP METABOLIC PANEL - LIPASE BLD 2. Generalized abdominal pain - ICD9: 789.07, ICD10: R10.84 - OMEPRAZOLE 20 MG CAPSULE,DELAYED RELEASE - CBC + DIFF - COMP METABOLIC PANEL - LIPASE BLD Sanchez Spears MD CNOV Observed: 06/26/2017 Status: COMPLETED Source: [place] 10:40 AM [facility] REPOSITORY Office Visit (FAMPWS) ALBA FLORES ([id number]) 1950 F Date Time Provider Department 06/26/17 10:40 AM SANCHEZ SPEARS [facility]DwayneWS During your visit today, we recorded the following information about you: Temperature Pulse Respiration Blood pressure 98.7 degrees 88/minute 14/minute 142/92 Weight 156.5 kg Zahida Ortega KEEGAN 06/26/2017 11:03 AM Signed Denies nausea, vomiting. Describes as burning feeling in stomach with diarrhea. Does have reflux symptoms. Using Tums and that helps. In the past had a bleeding ulcer but no blood noted with diarrhea. In the past has used medication to help, thinks was prevacid? Sanchez Spears MD 06/26/2017 11:20 AM Signed Patient presents with: Abdominal Pain HPI: Patient presents today for office visit for follow up. Nursing Notes: Zahida Ortega KEEGAN 06/26/2017 11:03 AM Signed Denies nausea, vomiting. Describes as burning feeling in stomach with diarrhea. Does have reflux symptoms. Using Tums and that helps. In the past had a bleeding ulcer but no blood noted with diarrhea. In the past has used medication to help, thinks was prevacid? Had egd etc. Was in her 30's or 40's. tums helps. Mild heartburn. Bothering her for 3 days. No burping. No bloody or black stools. No constipation. Some loose stools. No current abd pain No fever or chills. No nsaids use. No etoh. MEDICATIONS: Current Outpatient Prescriptions: lisinopril (ZESTRIL, PRINIVIL) 20 mg tablet Take 1 tablet by mouth once daily. olopatadine (PATANOL) 0.1 % ophthalmic solution Use 1 Drop in both eyes twice daily. CALCIUM CARBONATE/VITAMIN D3 (CALCIUM + D ORAL) Take by mouth. DOCOSAHEXANOIC ACID/EPA (FISH OIL ORAL) Take by mouth. No current facility-administered medications for this visit. ALLERGIES: ALLERGIES Allergen Reactions - Asa [Aspirin] GI Upset PAST MEDICAL HISTORY Diagnosis Date - Borderline diabetes 12/2014 - Endometrial cancer, grade I (HCC) 12/2014 - HTN (hypertension) 12/2014 - Morbid obesity with BMI of 60.0-69.9, adult (HCC) - Osteopenia PAST SURGICAL HISTORY Procedure Laterality Date - APPENDECTOMY - LAP, SUPRACERVIAL HYSTERECTOMY W/ TUBEANDamp;OV, ANDlt;250G 2014 - TUBAL LIGATION HX FAMILY HISTORY Problem Relation Age of Onset - COPD Mother - Heart Father - Colon Cancer Sister Social History Marital status: Spouse name: Years of education: Number of children: Social History Main Topics Smoking status: Former Smoker Packs/day: 1.00 Years: 5.00 Types: Cigarettes Quit date: 04/17/1984 Smokeless status: Never Used Alcohol use: Yes Comment: rarely Drug use: No Sexual activity: No Reviewed current medications, allergies, past medical history, surgical history, family history and social history today. REVIEW OF SYSTEMS All other reviewed and negative other than HPI. HEALTH MAINTENANCE: Reviewed health maintenance issues today and recommended the following in detail. VITALS: BP 142/92 Pulse 88 Temp 37.1 ?C (98.7 ?F) (Tympanic) Resp 14 Wt (!) 156.5 kg (345 lb) BMI 62.6 kg/m2 Last 4 Encounter Wt Readings: Date: Wt: 06/26/2017 156.5 kg (345 lb) 04/14/2017 157.4 kg (347 lb) 12/23/2016 155.1 kg (342 lb) 07/08/2016 155.7 kg (343 lb 3.2 oz) PHYSICAL EXAMINATION: General appearance: Well appearing, alert, in no acute distress, well-hydrated, well nourished. Skin: Skin color, texture, turgor normal, no suspicious rashes or lesions Head: Normocephalic, no masses, lesions, tenderness or abnormalities Lungs: Lungs clear to auscultation. No wheezing, rhonchi, rales Heart: RRR without murmur, gallop, or rubs. No ectopy Abdomen: Normal abdominal exam, Abdomen soft, non-tender. Bowel sounds normal. No masses, organomegaly Extremities: No deformities, edema, skin discoloration, clubbing or cyanosis. Good capillary refill. ASSESSMENT/PLAN: 1. GERD without esophagitis - ICD9: 530.81, ICD10: K21.9 (primary diagnosis) - Discussed lifestyle modifications including limiting caffeine, spicy foods etd. - Red flags for re-assessment reviewed with patient in detail. - OMEPRAZOLE 20 MG CAPSULE,DELAYED RELEASE - CBC + DIFF - COMP METABOLIC PANEL - LIPASE BLD 2. Generalized abdominal pain - ICD9: 789.07, ICD10: R10.84 - OMEPRAZOLE 20 MG CAPSULE,DELAYED RELEASE - CBC + DIFF - COMP METABOLIC PANEL - LIPASE BLD Sanchez Spears MD Referring Provider: SELF [[id number]] Allergies As of Date: 06/26/2017 Noted Allergy Reaction ASA (ASPIRIN) 01/16/2015 8 - GI Upset Date Reviewed: 04/14/2017 Reviewed by: Zahida Ortega LPN - Fully Assessed Reason for Visit: Abdominal Pain [1] Primary Visit Diagnosis:GERD without esophagitis [K21.9] Other Visit Diagnosis:Generalized abdominal pain [R10.84] Order(s):omeprazole (PRILOSEC) 20 mg capsuleTake 1 capsule by mouth once daily.Disp: 30 capsuleRfl: 2 CBC + DIFF [SQCBCDIF] Order #: [id number] FUTURE COMP METABOLIC PANEL [SQCMP] Order #: [id number] FUTURE LIPASE BLD [SQLIPA] Order #: [id number] FUTURE Prescriptions as of 06/26/2017 Sig: LISINOPRIL 20 MG TABLET Take 1 tablet by mouth once d* OMEPRAZOLE 20 MG CAPSULE,CECILIA* Take 1 capsule by mouth once * OLOPATADINE 0.1 % EYE DROPS Use 1 Drop in both eyes twice* CALCIUM + D ORAL Take by mouth. FISH OIL ORAL Take by mouth. Problem List As Of Date 06/26/2017 Noted Resolved HTN (hypertension) [I10] Borderline diabetes [R73.03] INVALID FOR* Endometrial cancer, grade I (HCC) [C54.1] INVALID FOR* Morbid obesity (HCC) [E66.01] INVALID FOR* Osteopenia [M85.80] INVALID FOR* Visit Notes: >> Zahida Ortega LPN MonJun 26, 2017 10:53 AM Status: Signed Denies nausea, vomiting. Describes as burning feeling in stomach with diarrhea. Does have reflux symptoms. Using Tums and that helps. In the past had a bleeding ulcer but no blood noted with diarrhea. In the past has used medication to help, thinks was prevacid? Prescriptions ordered this encounter Disp Refills Start End OMEPRAZOLE 20 MG CAPSULE,DELAYED REL* 30 c* 2 06/26/2017 Route: ORAL Sig: Take 1 capsule by mouth once daily. Disposition: Return in about 1 week (around 07/03/2017). Follow-up and Disposition History Recorded Encounter Status:Closed by SANCHEZ SPEARS MD on 06/26/17 PROGRESS Observed: 05/05/2017 Status: COMPLETED Source: [place] 9:35 AM [facility] REPOSITORY HNO ID: [id number] Author: Sanchez Spears Service: (none) Author Type: Physician Type: Progress Notes Filed: 05/05/2017 9:36 AM Note Text: Nursing Notes: Zahida Ortega LPN 05/05/2017 9:17 AM Signed Manual Readin/84 Pulse: 88 Reason for blood pressure check - Medication adjustment Lisinopril 20 mg Patient is: Taking medication as prescribed Yes Took medication today Yes Experiencing side effects No Recommendations Continue taking medications as prescribed Pt has been identified by name and birthdate: Yes Allergies reviewed: Yes Latex allergy: no. Medication - prescribed and OTC reviewed and updated: Yes Do you need any prescription refills prior to your next visit: No Health Maintenance: Reviewed and up to date bp is good PROGRESS Observed: 05/05/2017 Status: COMPLETED Source: [place] 9:16 AM [facility] REPOSITORY HNO ID: [id number] Author: Zahida Ortega LPN Service: (none) Author Type: (none) Type: Progress Notes Filed: 05/05/2017 9:36 AM Note Text: See nurses note. CNOV Observed: 05/05/2017 Status: COMPLETED Source: [place] 9:00 AM [facility] REPOSITORY Office Visit (FAMWS) ALBA FLORES ([id number]) 1950 F Date Time Provider Department 05/05/17 9:00 AM SANCHEZ SPEARS During your visit today, we recorded the following information about you: Pulse Blood pressure 88/minute 122/84 Zahida Ortega LPN 05/05/2017 9:17 AM Signed Manual Readin/84 Pulse: 88 Reason for blood pressure check - Medication adjustment Lisinopril 20 mg Patient is: Taking medication as prescribed Yes Took medication today Yes Experiencing side effects No Recommendations Continue taking medications as prescribed Pt has been identified by name and birthdate: Yes Allergies reviewed: Yes Latex allergy: no. Medication - prescribed and OTC reviewed and updated: Yes Do you need any prescription refills prior to your next visit: No Health Maintenance: Reviewed and up to date Zahida Ortega LPN 05/05/2017 9:36 AM Signed See nurses note. Sanchez Spears MD 05/05/2017 9:36 AM Signed Nursing Notes: Zahida Ortega LPN 05/05/2017 9:17 AM Signed Manual Readin/84 Pulse: 88 Reason for blood pressure check - Medication adjustment Lisinopril 20 mg Patient is: Taking medication as prescribed Yes Took medication today Yes Experiencing side effects No Recommendations Continue taking medications as prescribed Pt has been identified by name and birthdate: Yes Allergies reviewed: Yes Latex allergy: no. Medication - prescribed and OTC reviewed and updated: Yes Do you need any prescription refills prior to your next visit: No Health Maintenance: Reviewed and up to date bp is good Referring Provider: SELF [200] Allergies As of Date: 05/05/2017 Noted Allergy Reaction ASA (ASPIRIN) 01/16/2015 8 - GI Upset Date Reviewed: 04/14/2017 Reviewed by: Zahida Ortega LPN - Fully Assessed Primary Visit Diagnosis:Essential hypertension [I10] Other Visit Diagnosis:Morbid obesity (HCC) [E66.01] Prescriptions as of 05/05/2017 Sig: LISINOPRIL 20 MG TABLET Take 1 tablet by mouth once d* OLOPATADINE 0.1 % EYE DROPS Use 1 Drop in both eyes twice* CALCIUM + D ORAL Take by mouth. FISH OIL ORAL Take by mouth. Problem List As Of Date 05/05/2017 Noted Resolved HTN (hypertension) [I10] Borderline diabetes [R73.03] INVALID FOR* Endometrial cancer, grade I (HCC) [C54.1] INVALID FOR* Morbid obesity (HCC) [E66.01] INVALID FOR* Osteopenia [M85.80] INVALID FOR* Visit Notes: >> Zahida Ortega LPN Fri May 05, 2017 9:06 AM Status: Signed Manual Readin/84 Pulse: 88 Reason for blood pressure check - Medication adjustment Lisinopril 20 mg Patient is: Taking medication as prescribed Yes Took medication today Yes Experiencing side effects No Recommendations Continue taking medications as prescribed Pt has been identified by name and birthdate: Yes Allergies reviewed: Yes Latex allergy: no. Medication - prescribed and OTC reviewed and updated: Yes Do you need any prescription refills prior to your next visit: No Health Maintenance: Reviewed and up to date Encounter Status:Closed by SANCHEZ SPEARS MD on 05/05/17 HEMOGLOBIN A1C Collected: 04/14/2017 Status: F Source: [place] 9:51 AM [facility] REPOSITORY TYPE CODE TESTS RESULT OUT OF REFERENCE UNITS RANGE LAB HGBA1C 4.3-5.6 % High Hemoglobin A1c 6.0 LAB HBA0 mg/dL Est. Average Glucose 126 Result Comment: eAG: (Estimated average glucose) is a calculated value from HgbA1c and is employee representative of the average blood glucose level in the last 2-3 month period. Performed By: #### HBA1C, BMP, CA125 #### [facility] [address] [place], [place] [address] BASIC METABOLIC PANL Collected: 04/14/2017 Status: F Source: [place] 9:51 AM [facility] REPOSITORY TYPE CODE TESTS RESULT OUT OF REFERENCE UNITS RANGE LAB GLU 74-99 mg/dL Glucose 88 Result Comment: The [place] Diabetes Association (ADA) provides guidance for cutoff values for fasting glucose and random glucose. The ADA defines fasting as no caloric intake for at least 8 hours. Fas ting plasma glucose results between 100 to 125 mg/dL indicate increased risk for diabetes (prediabetes). Fasting plasma glucose results greater than or equal to 126 mg/dL meet the criteria for diagnosis of diabetes. In the absence of unequivocal hyperglycemia, results should be confirmed by repeat testing. In a patient with classic symptoms of hyperglycemia or hyperglycemic crisis, random plasma glucose results greater than or equal to 200 mg/dL meet the criteria for diagnosis of diabetes. Reference: Standards of Medical Care in Diabetes 2016, [place] Diabetes Association. Diabetes Care. 2016.39(Suppl 1). LAB BUN 7-21 mg/dL BUN 19 LAB CRET 0.58-0.96 mg/dL Creatinine High 1.00 LAB NA 136-144 mmol/L Sodium 143 LAB K 3.7-5.1 mmol/L Potassium 4.5 LAB CL 97-105 mmol/L Chloride 99 LAB CO2 22-30 mmol/L CO2 29 LAB AGAP 9-18 mmol/L Anion Gap 15 LAB CA 8.5-10.2 mg/dL Calcium, Total 9.4 LAB GFRAA eGFR- Amer. >60 LAB GFRNAA . eGFR-All Other Races 55 Result Comment: eGFR (Estimated GFR) Units of measure: mL/min/1.73 meters squared eGFR is derived from the reexpressed MDRD Study equation using the following parameters: serum creatinine, age, gender and race. The creatinine assay has been calibrated to be traceable to IDMS. An eGFR <60 mL/min/1.73m2 for >3 months is consistent with chronic kidney disease. Refer to KDOQI guidelines for clinical interpretation. In patients with unstable renal function, e.g. those with acute kidney injury, the eGFR may not accurately reflect actual GFR. Performed By: #### HBA1C, BMP, CA125 #### [facility] [address], [place] [address] CA 125 Collected: 04/14/2017 Status: F Source: [place] 9:51 AM [facility] REPOSITORY TYPE CODE TESTS RESULT OUT OF RANGE REFERENCE UNITS LAB CA125 <39 U/mL CA 125 18 Result Comment: CA 125 test methodology used is the Electrochemiluminescence Immunoassay by [email or web address]. The reference interval is based on the 95th percentile of 240 apparently healthy premenopausal and postmenopausal women. At a cutoff value of 65 U/mL, the test sensitivity to distinguish ovarian carcinoma (FIGO stage I to IV) versus benign gynecological disease is 79%, with a specificity of 82%. Reference: Cancer Antigen 125 (CA 125 II) [package insert V 1.0 Vincentian]. [employer], [place], [place] (January 2015) Performed By: #### HBA1C, BMP, CA125 #### [facility] [address], [place] [address] PROGRESS Observed: 04/14/2017 Status: COMPLETED Source: [place] 9:16 AM [facility] REPOSITORY HNO ID: [id number] Author: Sanchez Spears Service: (none) Author Type: Physician Type: Progress Notes Filed: 04/17/2017 12:42 PM Note Text: Patient presents with: Blood Pressure: out of med for 2 days Imm/Inj: Flu Vaccine Eye Problem: red with drainage HPI: Patient presents today for office visit for follow up. HYPERTENSION: she is taking her son's lisinopril and wonders if it is working. Has been getting occasional headaches. No chest pain or shortness of breath. No edema. 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 No ab bleeding. ENDO:no polydipsia or polyuria. OPHTHO: saw her eye . She has had issues on and off since October. Gets drainage and they are red. No cough or congestion. No eye pain. Worse when her smokes. No vision changes. Her eye dr said nothing wrong. MEDICATIONS: Current Outpatient Prescriptions: CALCIUM CARBONATE/VITAMIN D3 (CALCIUM + D ORAL) Take by mouth. DOCOSAHEXANOIC ACID/EPA (FISH OIL ORAL) Take by mouth. lisinopril (PRINIVIL) 10 mg tablet Take 1 tablet by mouth once daily. No current facility-administered medications for this visit. ALLERGIES: ALLERGIES Allergen Reactions - Asa [Aspirin] GI Upset PAST MEDICAL HISTORY Diagnosis Date - Borderline diabetes 12/2014 - Endometrial cancer, grade I (HCC) 12/2014 - HTN (hypertension) 12/2014 - Morbid obesity with BMI of 60.0-69.9, adult (HCC) - Osteopenia PAST SURGICAL HISTORY Procedure Laterality Date - APPENDECTOMY - LAP, SUPRACERVIAL HYSTERECTOMY W/ TUBEANDOV, <250G 2014 - TUBAL LIGATION HX FAMILY HISTORY Problem Relation Age of Onset - COPD Mother - Heart Father - Colon Cancer Sister Social History Marital status: Spouse name: Years of education: Number of children: Social History Main Topics Smoking status: Former Smoker Packs/day: 1.00 Years: 5.00 Types: Cigarettes Quit date: 04/17/1984 Smokeless status: Never Used Alcohol use: Yes Comment: rarely Drug use: No Sexual activity: No Reviewed current medications, allergies, past medical history, surgical history, family history and social history today. REVIEW OF SYSTEMS All other reviewed and negative other than HPI. HEALTH MAINTENANCE: Reviewed health maintenance issues today and recommended the following in detail. HEPATITIS C SCREENING due on 1992 FECAL OCCULT BLOOD due on 08/05/2016 INFLUENZA(1) due on 12/16/2016 VITALS: BP 152/98 Pulse 76 Temp 36.9 ?C (98.5 ?F) (Tympanic) Resp 14 Wt (!) 157.4 kg (347 lb) BMI 62.96 kg/m2 Last 4 Encounter Wt Readings: Date: Wt: 04/14/2017 157.4 kg (347 lb) 12/23/2016 155.1 kg (342 lb) 07/08/2016 155.7 kg (343 lb 3.2 oz) 05/19/2016 155.6 kg (343 lb) PHYSICAL EXAMINATION: General appearance: Well appearing, alert, in no acute distress, well-hydrated, well nourished. Skin: Skin color, texture, turgor normal, no suspicious rashes or lesions Head: Normocephalic, no masses, lesions, tenderness or abnormalities Eyes: conjunctiva red. Perrla. Eomi. Neck: Supple, no adenopathy; thyroid symmetric, normal size, no bruits Lungs: Lungs clear to auscultation. No wheezing, rhonchi, rales Heart: RRR without murmur, gallop, or rubs. No ectopy Abdomen: Normal abdominal exam, Abdomen soft, non-tender. Bowel sounds normal. No masses, organomegaly Extremities: No deformities, edema, skin discoloration, clubbing or cyanosis. Good capillary refill. ASSESSMENT/PLAN: 1. Essential hypertension - ICD9: 401.9, ICD10: I10 (primary diagnosis) - Suboptimal. Increase lisinopril. - Recommended regular aerobic exercise. - Recommend home blood pressure monitoring, to bring results in on next visit - Goal of BP <140/90 2. Need for vaccination - ICD9: V05.9, ICD10: Z23 - INFLUENZA SEASONAL HIGH DOSE AGE 65+ 3. Morbid obesity (HCC) - ICD9: 278.01, ICD10: E66.01 - continue to work on diet. 4. Borderline diabetes - ICD9: 790.29, ICD10: R73.03 - get labs. 5. Endometrial cancer, grade I (HCC) - ICD9: 182.0, ICD10: C54.1 - follow with chief projectionist. 6. Osteopenia, unspecified location - ICD9: 733.90, ICD10: M85.80 - bone density is up to date 7. Allergic conjunctivitis of both eyes - ICD9: 372.14, ICD10: H10.13 Allergic - see medication orders - return to see optho if persists. Sanchez Spears MD RTO in six months and prn. PROGRESS Observed: 04/14/2017 Status: COMPLETED Source: [place] 9:[address] [facility] REPOSITORY HNO ID: [id number] Author: Zahida Ortega LPN Service: (none) Author Type: (none) Type: Progress Notes Filed: 04/17/2017 12:42 PM Note Text: 67 year old female here for INACTIVATED INFLUENZA VACCINE. [id number] Season Patient is identified by name and date of : Yes [] CONTRAINDICATIONS color enhanced section Age less than 6 months? No Allergy to eggs, chicken, chicken feathers, or chicken dander? No Allergy to thimerosal (a preservative) or formaldehyde? No History of severe reaction to any vaccine component or a previous dose of influenza vaccination? No History of Guillain-[place] Syndrome within 6 weeks after a previous influenza vaccine? No Current moderate or severe illness? No Current temperature greater or equal to 100.4F? No History of Bone Marrow Transplant in past 6 months or solid organ transplant in the past 3 months ? No [] VERIFICATION color enhanced section Was the answer Yes for any of the above contraindications? No contraindications present. Acceptable to proceed with vaccine. Patient/guardian agrees the above answers are true to the best of their knowledge? Yes Flu vaccine information sheet given? Yes See immunization activity in [facility] for details of immunizations adminstered today. Patient age: [age] year old For The 9085-6620 Flu Season 6-35 months old: Fluzone 0.25 ml - IM (Preservative Free) 3 years of age: Fluzone 0.5 ml - IM (Preservative Free) 3 years and older: Fluzone 0.5 ml- IM-(with Preservatives) 65+ years old: Fluzone High-Dose 0.5 ml - IM (Preservative Free) REMEMBER: If patient is less than 9 years of age and this is the first vaccine of Influenza to be received in any flu season, they should receive a second dose in one months time. CNOV Observed: 04/14/2017 Status: COMPLETED Source: [place] 9:00 AM [facility] REPOSITORY [facility] GARFIELDALBA ZAMARRIPA ([id number]) 1950 F Date Time Provider Department 04/14/17 9:00 AM SANCHEZ SPEARS During your visit today, we recorded the following information about you: Temperature Pulse Respiration Blood pressure 98.5 degrees 76/minute 14/minute 152/98 Weight 157.4 kg Zahida Ortega KEEGAN 04/17/2017 12:42 PM Signed 67 year old female here for INACTIVATED INFLUENZA VACCINE. Season Patient is identified by name and date of : Yes [] CONTRAINDICATIONS color enhanced section Age less than 6 months? No Allergy to eggs, chicken, chicken feathers, or chicken dander? No Allergy to thimerosal (a preservative) or formaldehyde? No History of severe reaction to any vaccine component or a previous dose of influenza vaccination? No History of Guillain-[place] Syndrome within 6 weeks after a previous influenza vaccine? No Current moderate or severe illness? No Current temperature greater or equal to 100.4F? No History of Bone Marrow Transplant in past 6 months or solid organ transplant in the past 3 months ? No [] VERIFICATION color enhanced section Was the answer ANDquot;YesANDquot; for any of the above contraindications? No contraindications present. Acceptable to proceed with vaccine. Patient/guardian agrees the above answers are true to the best of their knowledge? Yes Flu vaccine information sheet given? Yes See immunization activity in [facility] for details of immunizations adminstered today. Patient age: [age] year old For The Flu Season 6-35 months old: Fluzone 0.25 ml - IM (Preservative Free) 3 years of age: Fluzone 0.5 ml - IM (Preservative Free) 3 years and older: Fluzone 0.5 ml- IM-(with Preservatives) 65+ years old: Fluzone High-Dose 0.5 ml - IM (Preservative Free) REMEMBER: If patient is less than 9 years of age and this is the first vaccine of Influenza to be received in any flu season, they should receive a second dose in one months time. Sanchez Spears MD 04/17/2017 12:42 PM Signed Patient presents with: Blood Pressure: out of med for 2 days Imm/Inj: Flu Vaccine Eye Problem: red with drainage HPI: Patient presents today for office visit for follow up. HYPERTENSION: she is taking her son's lisinopril and wonders if it is working. Has been getting occasional headaches. No chest pain or shortness of breath. No edema. 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 No ab bleeding. ENDO:no polydipsia or polyuria. OPHTHO: saw her eye dr. She has had issues on and off since October. Gets drainage and they are red. No cough or congestion. No eye pain. Worse when her smokes. No vision changes. Her eye dr said nothing wrong. MEDICATIONS: Current Outpatient Prescriptions: CALCIUM CARBONATE/VITAMIN D3 (CALCIUM + D ORAL) Take by mouth. DOCOSAHEXANOIC ACID/EPA (FISH OIL ORAL) Take by mouth. lisinopril (PRINIVIL) 10 mg tablet Take 1 tablet by mouth once daily. No current facility-administered medications for this visit. ALLERGIES: ALLERGIES Allergen Reactions - Asa [Aspirin] GI Upset PAST MEDICAL HISTORY Diagnosis Date - Borderline diabetes 12/2014 - Endometrial cancer, grade I (HCC) 12/2014 - HTN (hypertension) 12/2014 - Morbid obesity with BMI of 60.0-69.9, adult (HCC) - Osteopenia PAST SURGICAL HISTORY Procedure Laterality Date - APPENDECTOMY - LAP, SUPRACERVIAL HYSTERECTOMY W/ TUBEANDamp;OV, ANDlt;250G 2014 - TUBAL LIGATION HX FAMILY HISTORY Problem Relation Age of Onset - COPD Mother - Heart Father - Colon Cancer Sister Social History Marital status: Spouse name: Years of education: Number of children: Social History Main Topics Smoking status: Former Smoker Packs/day: 1.00 Years: 5.00 Types: Cigarettes Quit date: 04/17/1984 Smokeless status: Never Used Alcohol use: Yes Comment: rarely Drug use: No Sexual activity: No Reviewed current medications, allergies, past medical history, surgical history, family history and social history today. REVIEW OF SYSTEMS All other reviewed and negative other than HPI. HEALTH MAINTENANCE: Reviewed health maintenance issues today and recommended the following in detail. HEPATITIS C SCREENING due on 1992 FECAL OCCULT BLOOD due on 08/05/2016 INFLUENZA(1) due on 12/16/2016 VITALS: BP 152/98 Pulse 76 Temp 36.9 ?C (98.5 ?F) (Tympanic) Resp 14 Wt (!) 157.4 kg (347 lb) BMI 62.96 kg/m2 Last 4 Encounter Wt Readings: Date: Wt: 04/14/2017 157.4 kg (347 lb) 12/23/2016 155.1 kg (342 lb) 07/08/2016 155.7 kg (343 lb 3.2 oz) 05/19/2016 155.6 kg (343 lb) PHYSICAL EXAMINATION: General appearance: Well appearing, alert, in no acute distress, well-hydrated, well nourished. Skin: Skin color, texture, turgor normal, no suspicious rashes or lesions Head: Normocephalic, no masses, lesions, tenderness or abnormalities Eyes: conjunctiva red. Perrla. Eomi. Neck: Supple, no adenopathy; thyroid symmetric, normal size, no bruits Lungs: Lungs clear to auscultation. No wheezing, rhonchi, rales Heart: RRR without murmur, gallop, or rubs. No ectopy Abdomen: Normal abdominal exam, Abdomen soft, non-tender. Bowel sounds normal. No masses, organomegaly Extremities: No deformities, edema, skin discoloration, clubbing or cyanosis. Good capillary refill. ASSESSMENT/PLAN: 1. Essential hypertension - ICD9: 401.9, ICD10: I10 (primary diagnosis) - Suboptimal. Increase lisinopril. - Recommended regular aerobic exercise. - Recommend home blood pressure monitoring, to bring results in on next visit - Goal of BP ANDlt;140/90 2. Need for vaccination - ICD9: V05.9, ICD10: Z23 - INFLUENZA SEASONAL HIGH DOSE AGE 65+ 3. Morbid obesity (HCC) - ICD9: 278.01, ICD10: E66.01 - continue to work on diet. 4. Borderline diabetes - ICD9: 790.29, ICD10: R73.03 - get labs. 5. Endometrial cancer, grade I (HCC) - ICD9: 182.0, ICD10: C54.1 - follow with chief projectionist. 6. Osteopenia, unspecified location - ICD9: 733.90, ICD10: M85.80 - bone density is up to date 7. Allergic conjunctivitis of both eyes - ICD9: 372.14, ICD10: H10.13 Allergic - see medication orders - return to see optho if persists. Sanchez Spears MD RTO in six months and prn. Sanchez Spears MD 04/14/2017 9:35 AM Signed You should be directly around cigarette smoke. I suspect that is what is causing your eye issues. Anyone smoking in the home should be smoking outside only. Smoking anywhere in the home may be contributing. See your eye dr if doing that and taking drops does not help Referring Provider: SELF [200] Allergies As of Date: 04/14/2017 Noted Allergy Reaction ASA (ASPIRIN) 01/16/2015 8 - GI Upset Date Reviewed: 04/14/2017 Reviewed by: Zahida Ortega LPN - Fully Assessed Reason for Visit: Blood Pressure [15] Cmt: out of med for 2 days Imm/Inj [58] Cmt: Flu Vaccine Eye Problem [43] Cmt: red with drainage Reason For Visit History Recorded Primary Visit Diagnosis:Essential hypertension [I10] Other Visit Diagnoses:Need for vaccination [Z23] Morbid obesity (HCC) [E66.01] Borderline diabetes [R73.03] Endometrial cancer, grade I (HCC) [C54.1] Osteopenia, unspecified location [M85.80] Allergic conjunctivitis of both eyes [H10.13] Order(s):INFLUENZA SEASONAL HIGH DOSE AGE 65+ [[id number]] Order #: [id number] olopatadine (PATANOL) 0.1 % ophthalmic solutionUse 1 Drop in both eyes twice daily.Disp: 1 BottleRfl: 2 lisinopril (ZESTRIL, PRINIVIL) 20 mg tabletTake 1 tablet by mouth once daily.Disp: 30 tabletRfl: 2 Prescriptions as of 04/14/2017 Sig: LISINOPRIL 20 MG TABLET Take 1 tablet by mouth once d* CALCIUM + D ORAL Take by mouth. FISH OIL ORAL Take by mouth. OLOPATADINE 0.1 % EYE DROPS Use 1 Drop in both eyes twice* Problem List As Of Date 04/14/2017 Noted Resolved HTN (hypertension) [I10] Borderline diabetes [R73.03] INVALID FOR* Endometrial cancer, grade I (HCC) [C54.1] INVALID FOR* Morbid obesity (HCC) [E66.01] INVALID FOR* Osteopenia [M85.80] INVALID FOR* Other instructions from your clinician: You should be directly around cigarette smoke. I suspect that is what is causing your eye issues. Anyone smoking in the home should be smoking outside only. Smoking anywhere in the home may be contributing. See your eye dr if doing that and taking drops does not help Prescriptions ordered this encounter Disp Refills Start End OLOPATADINE 0.1 % EYE DROPS 1 Deo* 2 04/14/2017 07/13/2017 Route: BOTH EYES Sig: Use 1 Drop in both eyes twice daily. LISINOPRIL 20 MG TABLET 30 t* 2 04/14/2017 07/13/2017 Route: ORAL Sig: Take 1 tablet by mouth once daily. Medications Discontinued During This Encounter lisinopril (PRINIVIL) 10 mg tablet 90 t* 1 10/17/2016 04/14/2017 Route: ORAL Sig: Take 1 tablet by mouth once daily. Disc: Reason for discontinue is not on file. Follow-up and Disposition History Recorded Encounter Status:Closed by SANCHEZ SPEARS MD on 04/17/17 FECAL OCCULT BLD Collected: 04/13/2017 Status: F Source: [facility] 8:30 AM CLINIC MAIN CAMPUS REPOSITORY TYPE CODE TESTS RESULT OUT OF REFERENCE UNITS RANGE LAB IFO Negative Immuno Negative FOB Result Comment: This test was developed and its performance characteristics determined by [facility] [place] (-PL[facility]). It has not been cleared or approved by the FDA. [facility] is regulated under CLIA as qualified to perform high-complexity testing. This test is used for clinical purposes. It should not be regarded as investigational or for research. Performed By: #### IFOBT #### [facility] [address] [place] [address] ALLERGIES ALLERGIES DATE TYPE / CODE NAME / CODE REACTION SEVERITY SOURCE 03/20/2018 Drug propoxyphene i get dizzy Unknown [place] Allergy/416 HCl/[id number](RXNO and pass out Community 915768([facility] ED CT) Repository 03/20/2018 Drug aspirin/[id number]( stomach Unknown [place] Allergy/416 RXNORM) burning and [facility]405[facility] Repository 01/16/2015 DRUG ASPIRIN GI UPSET [facility] INGREDI/[address] [place] 166581(SNOM Repository ED CT) NG/[id number] ASPIRIN [facility] 6([facility] CT) Repository ENCOUNTERS ENCOUNTERS ADMIT/DISCHARGE ACCOUNT NUMBER ADMITTING ENCOUNTER LOCATION SOURCE CLASS 03/26/2018/03/26/20 [id number] Ambulatory [address] Repository 03/26/2018/03/26/20 [id number] Ambulatory [address] Repository 03/20/2018/03/20/20 [id number] Ambulatory BMSBuilding: [place] 18 BMS.[facility] Repository 03/15/2018 [id number] Ambulatory BMSBuilding: [facility] Repository 03/15/2018 [id number] Ambulatory [facility] Hospital ding:[facility] Repository 03/12/2018/03/13/20 [id number] Ambulatory [address] Repository 03/02/2018/03/02/20 [id number] Ambulatory BMSBuilding: [place] 18 BMS.[facility] Repository 02/28/2018/02/29/20 [id number] Ambulatory [address] Repository 02/28/2018/02/29/20 [id number] Ambulatory [address] Repository 02/28/2018/03/01/20 [id number] Ambulatory [address] Repository 02/15/2018/02/16/20 [id number] Ambulatory [address] Repository 02/11/2018/02/22/20 [id number] EDGARDO, [facility]patient [place] [address] [facility] 02/07/2018 [id number] Ambulatory [facility] ding:CCN Repository 02/06/2018 [id number] Ambulatory [facility] MEDICAL Repository CENTERBuildi ng:AGCARDPHR A 02/04/2018/02/12/20 [id number] Agyepong, [place]patient [place] ding:PCURoom Repository : [id number]: 1 02/04/2018 [id number] Agyepong, Ambulatory BMSBuilding: [place] BMS.[facility] Repository 02/04/2018 [id number] Agyepong, Ambulatory BMSBuilding: [place] BMS.[facility] Repository 02/04/2018 [id number] Agyepong, Ambulatory BMSBuilding: [place] BMS.[facility] Repository 02/04/2018 [id number] Agyepong, Ambulatory BMSBuilding: [place] [facility] 02/04/2018 [id number] Agyepong, Ambulatory BMSBuilding: [place] BMS.[facility] Repository 02/04/2018 [id number] Agyepong, Ambulatory BMSBuilding: [place] [facility] 02/04/2018 [id number] Agyepong, Ambulatory BMSBuilding: [place] BMS.[facility] Repository 02/04/2018 [id number] Agyepong, Ambulatory BMSBuilding: [place] BMS.[facility] Repository 02/04/2018 [id number] Agyepong, Ambulatory BMSBuilding: [place] [facility] Repository 02/04/2018 [id number] Agyepong, Ambulatory BMSBuilding: [place] BMS.[facility] Repository 02/04/2018 [id number] Agyepong, Ambulatory BMSBuilding[facility] [place] [facility] 02/04/2018 [id number] Agyepong, Ambulatory BMSBuilding: [place] BMS.[facility] Repository 02/04/2018 [id number] Agyepong, Ambulatory BMSBuilding: [place] BMS.CF.[facility] Repository 01/24/2018 [id number] Ambulatory [facility] ding:SL Repository 01/04/2018/01/05/20 [id number] Ambulatory BMSBuilding: [place] 18 BMS.[facility] Repository 12/29/2017 [id number] [facility] 12/28/2017 [id number] Ambulatory [facility] ding:PSN Repository 12/21/2017 [id number] Ambulatory [facility] ding:PSN Repository 12/21/2017 [id number] Ambulatory BMSBuilding: [facility] Repository 12/20/2017 [id number] Ambulatory [facility] ding:SL Repository 12/14/2017/12/16/19 [id number] Ambulatory [address] Repository 12/11/2017/12/12/19 [id number] Ambulatory BMSBuilding: [place] 18 BMS.[facility] Repository 12/01/2017/12/02/19 [id number] Ambulatory BMSBuilding: [place] 18 BMS.[facility] Repository 11/30/2017 [id number] Ambulatory BMSBuilding: [place] BMS.[facility] Repository 11/30/2017/12/09/19 [id number] Ambulatory BMSBuilding: [place] 18 [facility] Repository 11/26/2017/12/09/19 [id number] Ryan Cat Chi Inpatient [place] 18 [facility] ding:TCURoom Repository : QPT13Qns: 1 11/26/2017/12/09/19 [id number] Ambulatory BMSBuilding: [place] 18 [facility] Repository 11/18/2017/11/27/19 [id number] Ambulatory BMSBuilding: [place] 18 [facility] Repository 11/14/2017/11/27/19 [id number] Roque, Inpatient [place] [address] [facility] ding:PCURoom Repository : [id number]: 1 11/14/2017 [id number] Tereletsky, Ambulatory BMSBuilding: [place] BMS..[facility] Repository 11/14/2017 [id number] Tereletsky, Ambulatory BMSBuilding: [place] BMS.[facility] Repository 11/14/2017 [id number] Tereletsky, Ambulatory BMSBuilding: [place] [facility] 11/14/2017 [id number] Tereletsky, Ambulatory BMSBuilding: [place] BMS..[facility] Repository 11/14/2017 [id number] Tereletsky, Ambulatory BMSBuilding: [place] BMS.[facility] Repository 11/14/2017 [id number] Tereletsky, Ambulatory BMSBuilding: [place] BMS.[facility] Repository 11/14/2017 [id number] Tereletsky, Ambulatory BMSBuilding: [place] BMS.[facility] Repository 11/14/2017 [id number] Tereletsky, Ambulatory BMSBuilding: [place] BMS..[facility] Repository 11/14/2017 [id number] Tereletsky, Ambulatory BMSBuilding: [place] BMS.[facility] Repository 11/14/2017 [id number] Tereletsky, Ambulatory BMSBuilding: [place] [facility] 11/14/2017 [id number] Tereletsky, Ambulatory BMSBuilding: [place] BMS.[facility] Repository 11/14/2017 [id number] Tereletsky, Ambulatory BMSBuilding: [place] [facility] 11/14/2017 [id number] Tereletsky, Ambulatory BMSBuilding: [place] BMS.[facility] Repository 11/14/2017 [id number] Tereletsky, Ambulatory BMSBuilding: [place] BMS.[facility] Repository 11/14/2017 [id number] Tereletsky, Ambulatory BMSBuilding: [place] [facility] 11/14/2017 [id number] Tereletsky, Ambulatory BMSBuilding: [place] BMS..[facility] Repository 11/14/2017 [id number] Tereletsky, Ambulatory BMSBuilding: [place] BMS.[facility] Repository 11/14/2017 [id number] Tereletsky, Ambulatory BMSBuilding: [place] BMS.CF.[facility] Repository 11/14/2017 [id number] Tereletsky, Ambulatory BMSBuilding: [place] BMS.[facility] Repository 11/14/2017 [id number] Tereletsky, Ambulatory BMSBuilding: [place] BMS.CF.[facility] Repository 11/14/2017 [id number] Tereletsky, Ambulatory BMSBuilding: [place] BMS.[facility] Repository 11/14/2017 [id number] Tereletsky, Ambulatory BMSBuilding: [place] BMS..[facility] Repository 11/14/2017 [id number] Tereletsky, Ambulatory BMSBuilding: [place] BMS.CF.[facility] Repository 11/14/2017 [id number] Tereletsky, Ambulatory BMSBuilding: [place] BMS.[facility] Repository 11/14/2017 [id number] Tereletsky, Ambulatory BMSBuilding: [place] BMS.[facility] Repository 11/14/2017 [id number] Tereletsky, Ambulatory BMSBuilding: [place] BMS.[facility] Repository 11/14/2017 [id number] Tereletsky, Ambulatory BMSBuilding: [place] [facility] Repository 11/14/2017 [id number] Tereletsky, Ambulatory BMSBuilding: [place] BMS.[facility] Repository 11/14/2017/11/27/19 [id number] Ambulatory BMSBuilding: [place] Repository 11/14/2017/11/27/19 [id number] Ambulatory BMSBuilding: [address] Repository 11/14/2017/11/27/19 [id number] Ambulatory BMSBuilding: [address] Repository 11/14/2017/11/27/19 [id number] Ambulatory BMSBuilding: [address] Repository 11/14/2017/11/16/19 [id number] Ambulatory [facility] [address] [place] Repository 10/23/2017/10/24/19 [id number] Ambulatory [place] [address] [place] Repository 09/28/2017/09/29/19 [id number] Ambulatory [place] [address] [place] Repository 09/22/2017/09/23/19 [id number] Ambulatory [place] [address] [place] Repository 09/22/2017/09/26/19 [id number] Ambulatory [place] [address] [place] Repository 07/04/2017/07/05/19 [id number] Ambulatory [place] [address] [place] Repository 07/03/2017/07/05/19 [id number] Ambulatory [facility] [address] [place] Repository 06/26/2017/06/27/19 [id number] Ambulatory [place] [address] [place] Repository 06/26/2017/06/28/19 [id number] Ambulatory [place] [address] [place] Repository 05/05/2017/05/05/19 [id number] Ambulatory [facility] [address] [place] Repository 04/14/2017/04/14/20 [id number] Ambulatory [facility] [address] [facility] [address] [place] Repository 04/14/2017/04/14/20 [id number] Ambulatory [facility] [address] [place] Repository 04/14/2017/04/20/19 [id number] Ambulatory [facility] [address] [place] Repository PAYERS PAYERS ENCOUNTER GUARANTOR PAYER SUBSCRIBER SOURCE 03/20/2018 ALBA F Primary ALBA F [place] [id number] Insurance:MEDICARE HAUTERDOB: [facility] PART A [facility] [id number] Number: Repository [address]Mhd: 330 [id number] [phone] () Date:2018-03-16 03/20/2018 Secondary NOT GIVENUNK [place] Insurance:SELF [facility]: Effective Repository Date:2018-03-19 03/15/2018 ALBA F Primary ALBA F [place] [id number] Insurance:MEDICARE HAUTERDOB: [facility] PART A [facility] [id number] Number: Repository [id number]: 330 [id number] [phone] () Date:2018-03-02 03/15/2018 Secondary NOT GIVENUNK [place] Insurance:SELF [facility]Y [facility] Number: Effective Repository Date:2018-03-15 03/15/2018 ALBA F Primary ALBA F [place] [id number] Insurance:MEDICARE HAUTERDOB: Community [employer] PART A [facility] [id number] Number: Repository [id number]: 330 [id number] [phone] () Date:2018-03-02 03/15/2018 Secondary NOT GIVENUNK [place] Insurance:SELF PAY [facility] Number: Effective Repository Date:2018-03-02 03/02/2018 ALBA F Primary ALBA F [place] [id number] Insurance:MEDICARE HAUTERDOB: Community COLLEGE PART A [facility] [id number] Number: Repository [id number]: 330 [id number] [phone] () Date:2018-03-01 03/02/2018 Secondary NOT GIVENUNK [place] Insurance:SELF PAY [facility] Number: Effective Repository Date:2018-03-02 02/07/2018 ALBA F Primary ALBA F [place] [id number] Insurance:MEDICARE HAUTERDOB: Community COLLEGE PART A [facility] [id number] Number: Repository [id number]: 330 [id number] [phone] () Date:2018-02-07 02/07/2018 Secondary NOT GIVENUNK [place] Insurance:SELF PAY [facility] Number: Effective Repository Date:2018-02-07 02/06/2018 ALBA F Primary ALBA F [facility] HAUTERDOB: Insurance:MEDICARE A HAUTERDOB: [facility] Number: [id number] [facility] [id number], [place] Date: [address]Ljg: () 02/04/2018 ALBA F Primary ALBA F [place] [id number] Insurance:MEDICARE HAUTERDOB: Community COLLEGE PART A [facility] [id number] Number: Repository [address]Ulf: (337) [id number] [phone] () Date:2018-02-04 02/04/2018 Secondary NOT GIVENUNK [place] Insurance:SELF PAY [facility] Number: Effective Repository Date:2018-02-04 02/04/2018 ALBA F Primary ALBA F [place] [id number] Insurance:MEDICARE HAUTERDOB: Community COLLEGE PART A [facility] [id number] Number: Repository [address]Qkm: 330 [id number] [phone] () Date:2018-02-04 02/04/2018 Secondary NOT GIVENUNK [place] Insurance:SELF PAY [facility] Number: Effective Repository Date:2018-02-04 02/04/2018 ALBA F Primary ALBA F [place] [id number] Insurance:MEDICARE HAUTERDOB: Community COLLEGE PART A [facility] [id number] Number: Repository 19510Bbm: 330 [id number] [phone] () Date:2018-02-04 02/04/2018 Secondary NOT GIVENUNK [place] Insurance:SELF PAY [facility] Number: Effective Repository Date:2018-02-04 02/04/2018 ALBA F Primary ALBA F [place] [id number] Insurance:MEDICARE HAUTERDOB: Community COLLEGE PART A [facility] [id number] Number: Repository [address]165Xyc: 330 [id number] [phone] () Date:2018-02-04 02/04/2018 Secondary NOT GIVENUNK [place] Insurance:SELF PAY [facility] Number: Effective Repository Date:2018-02-04 02/04/2018 ALBA F Primary ALBA F [place] [id number] Insurance:MEDICARE HAUTERDOB: Community COLLEGE PART A [facility] [id number] Number: Repository 10628Ilb: 330 [id number] [phone] () Date:2018-02-04 02/04/2018 Secondary NOT GIVENUNK [place] Insurance:SELF PAY [facility] Number: Effective Repository Date:2018-02-04 02/04/2018 ALBA F Primary ALBA F [place] [id number] Insurance:MEDICARE HAUTERDOB: Community COLLEGE PART A [facility] [id number], [place] Number: Repository 55174Zmo: 330 [id number] [phone] () Date:2018-02-04 02/04/2018 Secondary NOT GIVENUNK [place] Insurance:SELF PAY [facility] Number: Effective Repository Date:2018-02-04 02/04/2018 ALBA F Primary ALBA F [place] [id number] Insurance:MEDICARE HAUTERDOB: Community COLLEGE PART A [facility] [id number], [place] Number: Repository [address]Tuw: 330 [id number] [phone] () Date:2018-02-04 02/04/2018 Secondary NOT GIVENUNK [place] Insurance:SELF PAY [facility] Number: Effective Repository Date:2018-02-04 02/04/2018 ALBA F Primary ALBA F [place] [id number] Insurance:MEDICARE HAUTERDOB: Community COLLEGE PART A [facility] [id number], [place] Number: Repository [address]47Ddg: 330 [id number] [phone] () Date:2018-02-04 02/04/2018 Secondary NOT GIVENUNK [place] Insurance:SELF PAY [facility] Number: Effective Repository Date:2018-02-04 02/04/2018 ALBA F Primary ALBA F [place] [id number] Insurance:MEDICARE HAUTERDOB: Community COLLEGE PART A [facility] [id number][place] Number: Repository 50318Duo: 330 [id number] [phone] () Date:2018-02-04 02/04/2018 Secondary NOT GIVENUNK [place] Insurance:SELF PAY [facility] Number: Effective Repository Date:2018-02-04 02/04/2018 ALBA F Primary ALBA F [place] [id number] Insurance:MEDICARE HAUTERDOB: Community COLLEGE PART A [facility] [id number], [place] Number: Repository [address]109Mae: 330 [id number] [phone] () Date:2018-02-04 02/04/2018 Secondary NOT GIVENUNK [place] Insurance:SELF PAY [facility] Number: Effective Repository Date:2018-02-04 02/04/2018 ALBA F Primary ALBA F [place] [id number] Insurance:MEDICARE HAUTERDOB: Community COLLEGE PART A [facility] [id number], [place] Number: Repository 48569Khh: 330 [id number] [phone] () Date:2018-02-04 02/04/2018 Secondary NOT GIVENUNK [place] Insurance:SELF PAY [facility] Number: Effective Repository Date:2018-02-04 02/04/2018 ALBA F Primary ALBA F [place] [id number] Insurance:MEDICARE HAUTERDOB: Community COLLEGE PART A [facility] [id number], [place] Number: Repository [address]45Enw: 330 [id number] [phone] () Date:2018-02-04 02/04/2018 Secondary NOT GIVENUNK [place] Insurance:SELF PAY [facility] Number: Effective Repository Date:2018-02-04 02/04/2018 ALBA F Primary ALBA F [place] [id number] Insurance:MEDICARE HAUTERDOB: Community COLLEGE PART A [facility] [id number][place] Number: Repository 76384Trj: 330 [id number] [phone] () Date:2018-02-04 02/04/2018 Secondary NOT GIVENUNK [place] Insurance:SELF PAY [facility] Number: Effective Repository Date:2018-02-04 02/04/2018 ALBA F Primary ALBA F [place] [id number] Insurance:MEDICARE HAUTERDOB: Community COLLEGE PART A [facility] [id number] Number: Repository 10333Tux: 330 [id number] [phone] () Date:2018-02-04 02/04/2018 Secondary NOT GIVENUNK [place] Insurance:SELF PAY [facility] Number: Effective Repository Date:2018-02-04 01/24/2018 ALBA F Primary ALBA F [place] [id number] Insurance:MEDICARE HAUTERDOB: Community COLLEGE PART A [facility] [id number], [place] Number: Repository 9[address]69Djr: 330 [id number] [phone] () Date:2017-12-29 01/24/2018 Secondary NOT GIVENUNK [place] Insurance:SELF PAY [facility] Hospital Number: Effective Repository Date:2017-12-29 01/04/2018 ALBA F Primary ALBA F [place] [id number] Insurance:MEDICARE HAUTERDOB: Community COLLEGE PART A [facility] [id number], [place] Number: Repository 6[address]41Cqe: 330 [id number] [phone] () Date:2017-12-29 01/04/2018 Secondary NOT GIVENUNK [place] Insurance:SELF PAY [facility] Number: Effective Repository Date:2018-01-03 12/29/2017 ALBA F Primary ALBA F [place] [id number] Insurance:MEDICARE HAUTERDOB: Community COLLEGE PART A [facility] [id number], [place] Number: Repository 9[address]75Tqh: 330 [id number] [phone] () Date:2017-12-11 12/29/2017 Secondary NOT GIVENUNK [place] Insurance:SELF PAY [facility] Hospital Number: Effective Repository Date:2017-12-29 12/28/2017 ALBA F Primary ALBA F [place] [id number] Insurance:MEDICARE HAUTERDOB: Community COLLEGE PART A [facility] [id number], [place] Number: Repository 05736Mxu: 330 [id number] [phone] () Date:2017-12-11 12/28/2017 Secondary NOT GIVENUNK [place] Insurance:SELF PAY [facility] Number: Effective Repository Date:2017-12-11 12/21/2017 ALBA F Primary ALBA F [place] [id number] Insurance:MEDICARE HAUTERDOB: Community COLLEGE PART A [facility] [id number], [place] Number: Repository 17804Qzd: 330 [id number] [phone] () Date:2017-12-11 12/21/2017 Secondary NOT GIVENUNK [place] Insurance:SELF PAY [facility] Number: Effective Repository Date:2017-12-11 12/21/2017 ALBA F Primary ALBA F [place] [id number] Insurance:MEDICARE HAUTERDOB: Community COLLEGE PART A [facility] [id number] Affairs Medical Center [place] Number: Repository [address]444Qwz: 330 [id number] [phone] () Date:2017-12-11 12/21/2017 Secondary NOT GIVENUNK [place] Insurance:SELF PAY [facility] Number: Effective Repository Date:2017-12-21 12/20/2017 ALBA F Primary ALBA F [place] [id number] Insurance:MEDICARE HAUTERDOB: Community COLLEGE PART A [facility] [id number], [place] Number: Repository 11070Ftf: 330 [id number] [phone] () Date:2017-12-05 12/20/2017 Secondary NOT GIVENUNK [place] Insurance:SELF PAY [facility] Number: Effective Repository Date:2017-12-05 12/11/2017 ALBA F Primary ALBA F [place] [id number] Insurance:MEDICARE HAUTERDOB: Community COLLEGE PART A [facility] [id number], [place] Number: Repository 66697Tjh: 330 [id number] [phone] () Date:2017-11-27 12/11/2017 Secondary NOT GIVENUNK [place] Insurance:SELF PAY [facility] Number: Effective Repository Date:2017-11-27 12/01/2017 ALBA F Primary ALBA F [place] [id number] Insurance:MEDICARE HAUTERDOB: Community COLLEGE PART A [facility] [id number], [place] Number: Repository 17791Ydq: 330 [id number] [phone] () Date:2017-11-27 12/01/2017 Secondary NOT GIVENUNK [place] Insurance:SELF PAY [facility] Number: Effective Repository Date:2017-12-01 11/30/2017 ALBA F Primary ALBA F [place] [id number] Insurance:MEDICARE HAUTERDOB: Community COLLEGE PART A [facility] [id number], [place] Number: Repository [address]25Hip: 330 [id number] [phone] () Date:2017-11-30 11/30/2017 Secondary NOT GIVENUNK [place] Insurance:SELF PAY [facility] Number: Effective Repository Date:2017-11-30 11/30/2017 ALBA F Primary ALBA F [place] [id number] Insurance:MEDICARE HAUTERDOB: Community COLLEGE PART A [facility] [id number], [place] Number: Repository 08613Uux: 330 [id number] [phone] () Date:2017-11-26 11/30/2017 Secondary NOT GIVENUNK [place] Insurance:SELF PAY [facility] Number: Effective Repository Date:2017-11-30 11/26/2017 ALBA F Primary ALBA F [place] [id number] Insurance:MEDICARE HAUTERDOB: Community COLLEGE PART A [facility] [id number], [place] Number: Repository 9[address]90Vpe: 330 [id number] [phone] () Date:2017-11-26 11/26/2017 Secondary NOT GIVENUNK [place] Insurance:SELF PAY [facility] Number: Effective Repository Date:2017-11-26 11/26/2017 ALBA F Primary ALBA F [place] [id number] Insurance:MEDICARE HAUTERDOB: Community COLLEGE PART A [facility] [id number], [place] Number: Repository 78642Bcf: 330 [id number] [phone] () Date:2017-11-26 11/26/2017 Secondary NOT GIVENUNK [place] Insurance:SELF PAY [facility] Number: Effective Repository Date:2017-11-26 11/18/2017 ALBA F Primary ALBA F [place] [id number] Insurance:MEDICARE HAUTERDOB: Community COLLEGE PART A [facility] [id number], [place] Number: Repository 76422Jnu: 330 [id number] [phone] () Date:2017-11-14 11/18/2017 Secondary NOT GIVENUNK [place] Insurance:SELF PAY [facility] Number: Effective Repository Date:2017-11-18 11/14/2017 Alba F Primary Al[place] F [place] [id number] Insurance:MEDICARE HauterDOB: Community [employer] PART A [facility] [id number], [place] Number: Repository 58562Pyx: 330 [id number] [phone] () Date:2017-11-14 11/14/2017 Secondary NOT GIVENUNK [place] Insurance:SELF PAY [facility] Number: Effective Repository Date:2017-11-14 11/14/2017 Alba F Primary Al[place] F [place] [id number] Insurance:MEDICARE HauterDOB: Community [employer] PART A [facility] [id number], [place] Number: Repository 89686Eob: 330 [id number] [phone] () Date:2017-11-14 11/14/2017 Secondary NOT GIVENUNK [place] Insurance:SELF PAY [facility] Number: Effective Repository Date:2017-11-14 11/14/2017 ALBA F Primary ALBA F [place] [id number] Insurance:MEDICARE HAUTERDOB: Community COLLEGE PART A [facility] [id number], [place] Number: Repository 26475Zyn: 330 [id number] [phone] () Date:2017-11-14 11/14/2017 Secondary NOT GIVENUNK [place] Insurance:SELF PAY [facility] Number: Effective Repository Date:2017-11-14 11/14/2017 ALBA F Primary ALBA F [place] [id number] Insurance:MEDICARE HAUTERDOB: Community COLLEGE PART A [facility] [id number], [place] Number: [place]ository 6[address]47Owm: 330 [id number] [phone] () Date:2017-11-14 11/14/2017 Secondary NOT GIVENUNK [place] Insurance:SELF PAY [facility] Number: Effective Repository Date:2017-11-14 11/14/2017 Alba F Primary Al[place] F [place] [id number] Insurance:MEDICARE HauterDOB: Community [employer] PART A [facility] [id number], [place] Number: [place]ository 99826Sux: 330 [id number] [phone] () Date:2017-11-14 11/14/2017 Secondary NOT GIVENUNK [place] Insurance:SELF PAY [facility] Number: Effective Repository Date:2017-11-14 11/14/2017 ALBA F Primary ALBA F [place] [id number] Insurance:MEDICARE HAUTERDOB: Community COLLEGE PART A [facility] [id number], [place] Number: Repository 85452Usk: 330 [id number] [phone] () Date:2017-11-14 11/14/2017 Secondary NOT GIVENUNK [place] Insurance:SELF PAY [facility] Number: Effective Repository Date:2017-11-14 11/14/2017 Alba F Primary [place] F [place] [id number] Insurance:MEDICARE HauterDOB: [employer] PART A [facility] [id number], [place] Number: Repository 46196Num: 330 [id number] [phone] () Date:2017-11-14 11/14/2017 Secondary NOT GIVENUNK [place] Insurance:SELF PAY [facility] Number: Effective Repository Date:2017-11-14 11/14/2017 Alba F Primary Al[place] F [place] [id number] Insurance:MEDICARE HauterDOB: [employer] PART A [facility] [id number], [place] Number: Repository 77493Kqi: 330 [id number] [phone] () Date:2017-11-14 11/14/2017 Secondary NOT GIVENUNK [place] Insurance:SELF PAY [facility] Number: Effective Repository Date:2017-11-14 11/14/2017 Alba F Primary [place] F [place] [id number] Insurance:MEDICARE HauterDOB: Community [employer] PART A [facility] [id number], [place] Number: Repository 55800Ffu: 330 [id number] [phone] () Date:2017-11-14 11/14/2017 Secondary NOT GIVENUNK [place] Insurance:SELF PAY [facility] Number: Effective Repository Date:2017-11-14 11/14/2017 Alba F Primary Al[place] F [place] [id number] Insurance:MEDICARE HauterDOB: [employer] PART A [facility] [id number], [place] Number: Repository 12355Xlh: 330 [id number] [phone] () Date:2017-11-14 11/14/2017 Secondary NOT GIVENUNK [place] Insurance:SELF PAY [facility] Number: Effective Repository Date:2017-11-14 11/14/2017 ALBA F Primary ALBA F [place] [id number] Insurance:MEDICARE HAUTERDOB: Community COLLEGE PART A [facility] [id number], [place] Number: Repository 17610Nsp: 330 [id number] [phone] () Date:2017-11-14 11/14/2017 Secondary NOT GIVENUNK [place] Insurance:SELF PAY [facility] Number: Effective Repository Date:2017-11-14 11/14/2017 Alba F Primary [place] [id number] Insurance:MEDICARE HauterDOB: [employer] PART A [facility] [id number], [place] Number: Repository 31038Jiz: 330 [id number] [phone] () Date:2017-11-14 11/14/2017 Secondary NOT GIVENUNK [place] Insurance:SELF PAY [facility] Number: Effective Repository Date:2017-11-14 11/14/2017 ALBA F Primary [place] F [place] [id number] Insurance:MEDICARE HAUTERDOB: Community COLLEGE PART A [facility] [id number] Affairs Medical Center [place] Number: Repository [address]35Ecy: 330 [id number] [phone] () Date:2017-11-14 11/14/2017 Secondary NOT GIVENUNK [place] Insurance:SELF PAY [facility] Number: Effective Repository Date:2017-11-14 11/14/2017 Alba F Primary [place] [id number] Insurance:MEDICARE HauterDOB: [employer] PART A [facility] [id number] [facility] [place] Number: Repository 22132Zus: 330 [id number] [phone] () Date:2017-11-14 11/14/2017 Secondary NOT GIVENUNK [place] Insurance:SELF PAY [facility] Number: Effective Repository Date:2017-11-14 11/14/2017 Alba F Primary [place] [id number] Insurance:MEDICARE HauterDOB: [employer] PART A [facility] [id number] [facility] University [facility] [place] Number: Repository [address]16Jjj: 330 [id number] [phone] () Date:2017-11-14 11/14/2017 Secondary NOT GIVENUNK [place] Insurance:SELF PAY [facility] Number: Effective Repository Date:2017-11-14 11/14/2017 Alba F Primary [place] F [place] [id number] Insurance:MEDICARE HauterDOB: [employer] PART A [facility] [id number] [place] University Health [facility] [place] Number: Repository 64228Qao: 330 [id number] [phone] () Date:2017-11-14 11/14/2017 Secondary NOT GIVENUNK [place] Insurance:SELF PAY [facility] Number: Effective Repository Date:2017-11-14 11/14/2017 Alba F Primary [place] F [place] [id number] Insurance:MEDICARE HauterDOB: [employer] PART A [facility] [id number], [place] Number: Repository 92419Cep: 330 [id number] [phone] () Date:2017-11-14 11/14/2017 Secondary NOT GIVENUNK [place] Insurance:SELF PAY [facility] Number: Effective Repository Date:2017-11-14 11/14/2017 Alba F Primary [place] [id number] Insurance:MEDICARE HauterDOB: Community [employer] PART A [facility] [id number], [place] Number: Repository 79378Mfu: 330 [id number] [phone] () Date:2017-11-14 11/14/2017 Secondary NOT GIVENUNK [place] Insurance:SELF PAY [facility] Number: Effective Repository Date:2017-11-14 11/14/2017 Alba F Primary [place] [id number] Insurance:MEDICARE HauterDOB: [employer] PART A [facility] [id number], [place] Number: Repository 15630Yjo: 330 [id number] [phone] () Date:2017-11-14 11/14/2017 Secondary NOT GIVENUNK [place] Insurance:SELF PAY [facility] Number: Effective Repository Date:2017-11-14 11/14/2017 Alba F Primary [place] F [place] [id number] Insurance:MEDICARE HauterDOB: [employer] PART A [facility] [id number], [place] Number: Repository 72056Xmk: 330 [id number] [phone] () Date:2017-11-14 11/14/2017 Secondary NOT GIVENUNK [place] Insurance:SELF PAY [facility] Number: Effective Repository Date:2017-11-14 11/14/2017 Alba F Primary Al[place] F [place] [id number] Insurance:MEDICARE HauterDOB: [employer] PART A [facility] [id number], [place] Number: Repository 86556Hki: 330 [id number] [phone] () Date:2017-11-14 11/14/2017 Secondary NOT GIVENUNK [place] Insurance:SELF PAY [facility] Number: Effective Repository Date:2017-11-14 11/14/2017 Alba F Primary [place] F [place] [id number] Insurance:MEDICARE HauterDOB: [employer] PART A [facility] [id number], [place] Number: [place]ository 91978Zxt: 330 [id number] [phone] () Date:2017-11-14 11/14/2017 Secondary NOT GIVENUNK [place] Insurance:SELF PAY [facility] Number: Effective Repository Date:2017-11-14 11/14/2017 Alba F Primary [place] [id number] Insurance:MEDICARE HauterDOB: [employer] PART A [facility] [id number], [place] Number: Repository 31662Vhj: 330 [id number] [phone] () Date:2017-11-14 11/14/2017 Secondary NOT GIV[place]UNK [place] Insurance:SELF PAY [facility] Number: Effective Repository Date:2017-11-14 11/14/2017 Alba F Primary [place] [id number] Insurance:MEDICARE HauterDOB: [employer] PART A [facility] [id number], [place] Number: Repository 49759Hlb: 330 [id number] [phone] () Date:2017-11-14 11/14/2017 Secondary NOT GIVENUNK [place] Insurance:SELF PAY [facility] Number: Effective Repository Date:2017-11-14 11/14/2017 Alba F Primary [place] [id number] Insurance:MEDICARE HauterDOB: [employer] PART A [facility] [id number], [place] Number: Repository 49587Myf: 330 [id number] [phone] () Date:2017-11-14 11/14/2017 Secondary NOT GIVENUNK [place] Insurance:SELF PAY [facility] Number: Effective Repository Date:2017-11-14 11/14/2017 Alba F Primary [place] [id number] Insurance:MEDICARE HauterDOB: [employer] PART A [facility] [id number], [place] Number: Repository 33863Ucr: 330 [id number] [phone] () Date:2017-11-14 11/14/2017 Secondary NOT GIV[place]UNK [place] Insurance:SELF PAY [facility] Number: Effective Repository Date:2017-11-14 11/14/2017 Alba F Primary [place] [id number] Insurance:MEDICARE HauterDOB: [employer] PART A [facility] [id number], [place] Number: Repository 22664Mkl: 330 [id number] [phone] () Date:2017-11-14 11/14/2017 Secondary NOT GIVENUNK [place] Insurance:SELF PAY [facility] Number: Effective Repository Date:2017-11-14 11/14/2017 Alba F Primary [place] [id number] Insurance:MEDICARE HauterDOB: [employer] PART A [facility] [id number], [place] Number: Repository 44934Hpl: 330 [id number] [phone] () Date:2017-11-14 11/14/2017 Secondary NOT GIVENUNK [place] Insurance:SELF PAY [facility] Number: Effective Repository Date:2017-11-14 11/14/2017 Alba F Primary [place] [id number] Insurance:MEDICARE HauterDOB: Community [employer] PART A [facility] [id number], [place] Number: Repository 32987Gvl: 330 [id number] [phone] () Date:2017-11-14 11/14/2017 Secondary NOT GIVENUNK [place] Insurance:SELF PAY [facility] Number: Effective Repository Date:2017-11-14 11/14/2017 ALBA F Primary ALAB F [place] [id number] Insurance:MEDICARE HAUTERDOB: Community COLLEGE PART A [facility] [id number], [place] Number: Repository 12162Xgg: 330 [id number] [phone] () Date:2017-11-14 11/14/2017 Secondary NOT GIVENUNK [place] Insurance:SELF PAY [facility] Number: Effective Repository Date:2017-11-14 11/14/2017 ALBA F Primary [place] [id number] Insurance:MEDICARE HAUTERDOB: Community COLLEGE PART A [facility] [id number], [place] Number: Repository 39073Ydj: 330 [id number] [phone] () Date:2017-11-14 11/14/2017 Secondary NOT GIVENUNK [place] Insurance:SELF PAY [facility] Number: Effective Repository Date:2017-11-14 11/14/2017 ALBA F Primary [place] F [place] [id number] Insurance:MEDICARE HAUTERDOB: Community COLLE[employer] PART A [facility] [id number] Number: Repository [id number]: [phone] [phone] () Date:2017-11-14 11/14/2017 Secondary NOT GIVENUNK [place] Insurance:SELF PAY [facility] Number: Effective Repository Date:2017-11-14 11/14/2017 ALBA F Primary ALBA F [place] [id number] Insurance:MEDICARE HAUTERDOB: Community COLLEGE PART A [facility] [id number] Number: Repository [id number]: 330 [id number] [phone] () Date:2017-11-14 11/14/2017 Secondary NOT GIVENUNK [place] Insurance:SELF PAY [facility] Number: Effective Repository Date:2017-11-14
== END ==
PROVIDERS: Family Provider Family Medicine; PCP Family Medicine; Referring Provider Internal Medicine Cardiovascular Disease; Visit Provider Internal Medicine Cardiovascular Disease
DX: I42.9 Cardiomyopathy, unspecified (principal); I48.92 Unspecified atrial flutter; R06.02 Shortness of breath
CPT/HCPCS: 78452; 93017; A9500; A4216; J2785

== ENCOUNTER → 2018-04-16 12:10 | Outpatient (CLI) | payer MEDICARE, OTHER, SELFPAY ==
[2018-04-16 10:34] VITALS: BMI 55.7
--- NOTE | 2018-04-16 12:13 | RAD_ITS ---
STUDY: X-RAY CHEST REASON FOR EXAM: Female, 68 years old. Shortness of breath. Pre heart catheter. TECHNIQUE: PA and lateral views of the chest. COMPARISON: Portable AP upright chest x-ray February 10, 2018. FINDINGS: There is been significant improvement in the left pleural effusion now appears only the lateral left diaphragm and costophrenic sulcus. Concomitant subsegmental posterolateral left base airspace disease of probable atelectasis likely also present. There is minor crowding and subsegmental atelectasis in the right base. There is borderline to mild cardiac enlargement. Normal mediastinum and angi. Normal visualized pulmonary arteries. Normal visualized aortic arch and descending thoracic aorta. There are diffuse degenerative changes of the visualized thoracic spine. Normal visualized ribs, clavicles, and shoulders. There is no demonstrated abnormality of the visualized soft tissue structures of the upper abdomen. RAD/Chest PA and Lateral IMPRESSION: 1. Borderline to mild cardiac enlargement. No CHF. 2. Left pleural effusion notably improved since January 2018, with residual posterolateral basilar collection and probable adjacent subsegmental atelectasis. Infection is not excluded. 3. Minor crowding and subsegmental atelectasis in the right base. Electronically Signed: Som Saini MD at 15:38 EST , Service support ,
[2018-04-16 13:37] LABS: Prothrombin Time (Protime)PT. 13.6 SECONDS (11.7-14.9)
[2018-04-16 13:38] LABS: Partial Thromboplast Time 25.2 Seconds (24.1-36.2)
[2018-04-16 13:39] LABS: Absolute Lymphocyte Count 2.14 X10^3/ul (0.83-4.51); Absolute Neutrophil Count 4.5 X10^3/uL (2.0-7.7); Basophil# 0.01 X10^3/uL; Basophil% 0.1 % (0-1); Eosinophil# 0.38 X10^3/uL; Eosinophils% 4.9 % (0-5); Hematocrit 41.3 % (37-47); Hemoglobin 12.2 g/dl (12.0-15.0); Lymphocyte # 2.14 X10^3/ul (4.0); Lymphocyte % 27.6 % (19-41); Mean Corp Hgb Conc 29.5 g/gl (32-36); Mean Corpuscular Hgb 25.8 pg (27.0-32.0); Mean Corpuscular Volume 87.3 fL (81-99); Mean Platelet Vol. 10.1 fl (6.2-12.0); Monocyte# 0.69 X10^3/uL; Monocyte% 8.9 % (0-10); Neutrophil # 4.53 X10^3/uL (2.7-7.7); Neutrophil % 58.4 % (47-70); Platelet Count 222 K/mm3 (150-450); RBC Distribution Width CV 14.5 % (11.6-14.6); RBC Distribution Width SD 46.4 fl (35.1-43.9); Red Blood Count 4.73 M/mm3 (4.2-5.4); White Blood Count 7.8 K/mm3 (4.4-11.0)
[2018-04-16 13:45] LABS: POSITIVE COUNT NO; POSITIVE DIFFERENTIAL NO; POSITIVE MORPHOLOGY NO
[2018-04-16 13:54] LABS: Anion Gap 9 (5-15); BUN 28 mg/dL (7-18); BUN/Creat Ratio 26.4 RATIO (10-20); Calcium,Total 9.2 mg/dL (8.5-10.1); Chloride 104 mmol/L (98-107); Creatinine, Serum 1.06 mg/dL (0.55-1.02); EST Glomerular Filtration Rate 54 mL/min (>60); Est Glom Filt Rate - Afr Amer 66 mL/min (>60); Glucose 89 mg/dL (74-106); Potassium 3.9 mmol/L (3.5-5.1); Sodium Level 145 mmol/L (136-145)
== END ==
PROVIDERS: Internal Medicine Cardiovascular Disease; Family Provider Family Medicine; PCP Family Medicine; Referring Provider Physician Assistant Medical; Visit Provider Physician Assistant Medical
DX: I48.92 Unspecified atrial flutter (principal); R94.39 Abnormal result of other cardiovascular function study; I50.9 Heart failure, unspecified
CPT/HCPCS: 36415; 71046; 80048; 85025; 85610; 85730

== ENCOUNTER 2018-05-11 07:56 | Day surgery (SDC) | payer MEDICARE, SELFPAY ==
[2018-04-16 10:34] VITALS: BMI 55.7
[2018-05-10 08:56] VITALS: BMI 53.8
--- NOTE | 2018-05-11 11:54 | CL.D_ITS ---
Patient Name: YAO FLORES Study Date: 05/11/2018 Performing: Cornelio Hernandez MD Ht: 62.99 inches 160 cm : 1950 Wt: 304.24 lbs 138 kg Age: 68 Gender: female BSA: 2.31 PROCEDURE(S) PERFORMED QF22-CYL/COR/LV CLINICAL PROFILE AND INDICATIONS Indications: Cardiac Arrythmia, Cardiomyopathy Heart Failure: NYHA Class: 3, Newly Diagnosed: No, Heart Failure Type: Systolic Stress/Imaging Stress Test w/SPECT MPI: Yes Result: PositiveStress Test with SPECT MPI: Positive Angina Classification Anginal Classification w/in 2 Weeks: CCS III CAD Presentations: Other: shortness of breath CONCLUSIONS Elevated Left Ventricular End Diastolic Pressure Global LV systolic dysfunction- Moderate LVEF: by LV gram 30 % Normal coronary arteries RECOMMENDATIONS DESCRIPTION OF PROCEDURE The patient arrived to the procedure lab. The risks and benefits of the procedure as well as a full d escription of our services here and current unavailability of surgical backup were fully explained to the patient and/or their significant other prior to the catheterization. The Timeout was completed, verifying the correct patient and procedure. The patient's procedural site was prepped and draped in the usual fashion. Local anesthetic was given subcutaneously to right radial region with Lidocaine 2% . Using a modified Seldinger technique, arterial access was obtained via the right radial artery, a 6 Fr sheath was inserted. Left Coronary Artery selective angiography was performed in multiple views u sing a 5 Fr. 4.0 [place] catheter. Right Coronary Artery selective angiography was then performed in mu ltiple views using a 5 Fr. 4.0 [place] catheter. Left Coronary Artery selective angiography was perform ed in multiple views using a 5 Fr. JL3.5 catheter. Left Ventriculography was performed in SPIVEY projection using a 5 Fr. Pigtail catheter. LV to AO pullback pressures were then recorded.The art erial sheath was pulled and a TR Band was applied for hemostasis CORONARY ANGIOGRAPHY DOMINANCE: Left Dominant LEFT HEART ASSESSMENT Left Ventricular Ejection Fraction: by LV Gram 30 % Global Hypokinesis - Moderate Elevated Left Ventricular End Diastolic Pressure LVEDP: 22 mmHg LEFT MAIN: Angiographically normal LEFT ANTERIOR DECENDING ARTERY: Angiographically normal CIRCUMFLEX ARTERY: Angiographically normal RIGHT CORONARY ARTERY: Angiographically normal VALVE FINDINGS: Normal Aortic Valve function Normal Mitral Valve function AORTIC ROOT: Angiographically normal COMPLICATIONS No Complications PROCEDURE MEDICATIONS Versed 1 mg IV Fentanyl 50 mcg IV Fentanyl 50 mcg IV Versed 1 mg IV Oxygen: 2 L/min via nasal cannula Oxygen: 4 L/min via nasal cannula Heparin diluted in 23cc Heparinized saline. Patient given 10cc IA of this solution. 05/11/2018 09:26: 45 Verapamil 2.5mg, Ntg 100mcgs, 2000 units of Heparin diluted in 23cc Heparinized saline. Patient give n 10cc IA of this solution. 05/11/2018 09:26:45 SUMMARY OF HEMODYNAMIC DATA Time AIR REST ECG 08:26:50 ECG 08:27:16 AO 110/69 (87) SA 09:28:50 LV 135/4, 22 09:41:51 LV 136/5, 18 09:41:57 LV 137/8, 26 09:42:49 LV 140/8, 22 09:42:55 LVp 141/8, 23 09:43:01 AOp 140/77 (101) 09:43:06 ECG 09:57:47 Signed By Cornelio Hernandez MD On 05/11/2018 11:53:40 Cornelio Hernandez MD
== END 2018-05-11 13:00 | disposition home or self-care (01) ==
LOC: CLSP 07:59
PROVIDERS: Family Provider Family Medicine; PCP Family Medicine; Referring Provider Internal Medicine Cardiovascular Disease; Visit Provider Internal Medicine Cardiovascular Disease
DX: I42.9 Cardiomyopathy, unspecified (principal); R06.02 Shortness of breath; I49.9 Cardiac arrhythmia, unspecified; I48.92 Unspecified atrial flutter; E66.01 Morbid (severe) obesity due to excess calories; Z68.43 Body mass index [BMI] 50.0-59.9, adult; J44.9 Chronic obstructive pulmonary disease, unspecified; I10 Essential (primary) hypertension; K21.9 Gastro-esophageal reflux disease without esophagitis; G47.33 Obstructive sleep apnea (adult) (pediatric); Z87.891 Personal history of nicotine dependence; Z99.81 Dependence on supplemental oxygen; Z79.82 Long term (current) use of aspirin; Z79.899 Other long term (current) drug therapy
CPT/HCPCS: 93458; 99152; 99153; J7040; Q9967; C1769; C1894

== ENCOUNTER → 2018-07-02 08:53 | Outpatient (CLI) | payer MEDICARE, MEDICAID, SELFPAY ==
[2018-06-26 10:01] VITALS: BMI 53.1
[2018-07-02 09:00] VITALS: PULSE 103; PULSE 104; PULSE 106; PULSE 81; PULSE 83; PULSE 90; PULSE 92; O2SAT 88; O2SAT 91; O2SAT 92; O2SAT 93; O2SAT 94; O2SAT 95
--- NOTE | 2018-07-02 09:39 | CPS ---
pt arrived on 2l pulse dose. was placed on room air. sats 95%. Pt durring test didnt drop until 6 min dropped to 88% but then increased back up to 93% on room air. pt took 2 rests durring test due to back pain not due to breathing.
--- NOTE | 2018-07-02 13:31 | PCM.PSN.6M ---
PSN 6 Minute Walk Test - 6 Minute Walk Test 6 Minute Walk Test: 6 Minute Walk Test PSN:6-Minute Walk Test Start: 07/02/18 09:24 Freq: Status: Active Protocol: RESP.6MINW Document 07/02/18 09:00 EW (Rec: 07/02/18 09:42 EW [id number]) 6 Minute Walk Test Date Performed 07/02/18 Time Performed 09:00 Height 5 ft 3 in Weight: 135.624 kg Weight in Pounds 299.[address]: Marshall Newman Assistive device used: None Pre-test Oxygen Delivery Method Room Air Pulse Ox (%) 95 Pulse Rate (60-100 beats/min) 90 Dyspnea Delfino Scale (0-10) 1 Exertion Delfino Scale (6-20) 8 1st minute Oxygen Delivery Method Room Air Pulse Ox (%) 94 Pulse Rate (60-100 beats/min) 83 2nd minute Oxygen Delivery Method Room Air Pulse Ox (%) 91 Pulse Rate (60-100 beats/min) 92 3rd minute Oxygen Delivery Method Room Air Pulse Ox (%) 91 Pulse Rate (60-100 beats/min) 103 H Number of Rests Taken 1 4th minute Oxygen Delivery Method Room Air Pulse Ox (%) 92 Pulse Rate (60-100 beats/min) 103 H 5th minute Oxygen Delivery Method Room Air Pulse Ox (%) 91 Pulse Rate (60-100 beats/min) 104 H Number of Rests Taken 1 6th minute Oxygen Delivery Method Room Air Pulse Ox (%) 88 Pulse Rate (60-100 beats/min) 106 H Post-test Oxygen Delivery Method Room Air Pulse Ox (%) 93 Pulse Rate (60-100 beats/min) 81 Dyspnea Delfino Scale (0-10) 3 Exertion Delfino Scale (6-20) 13 Full Laps Walked 12 Partial Lap, Number of Tiles Walked 0 Total Distance Walked (ft) 708 07/02/18 09:39 Cardiopulmonary Services by Robyn Boland pt arrived on 2l pulse dose. was placed on room air. sats 95%. Pt durring test didnt drop until 6 min dropped to 88% but then increased back up to 93% on room air. pt took 2 rests durring test due to back pain not due to breathing. Initialized on 07/02/18 09:39 - END OF NOTE - Interpretation Interpretation: The patient was able to ambulate 708 feet over the course of 6 minutes on room air with no assistive devices and 2 breaks. The patient did desaturate to 88% in the sixth minute, but supplemental oxygen was not applied. These findings are consistent with a respiratory limitation exercise tolerance. - Recommendations Recommendations: The patient requires no supplemental oxygen at rest, but should be using 2 L nasal cannula oxygen with any exertion.
== END ==
PROVIDERS: Family Provider Family Medicine; PCP Family Medicine; Referring Provider Internal Medicine Critical Care Medicine; Visit Provider Internal Medicine Critical Care Medicine
DX: J44.9 Chronic obstructive pulmonary disease, unspecified (principal); I50.22 Chronic systolic (congestive) heart failure
CPT/HCPCS: 94618

== ENCOUNTER → 2018-12-04 | Outpatient (CLI) | payer MEDICARE, SELFPAY ==
[2018-06-26 10:01] VITALS: BMI 53.1
[2018-07-19 10:11] VITALS: BMI 53.4
--- NOTE | 2018-12-04 14:05 | PFTCOMP ---
COMPLETE PULMONARY FUNCTION TEST INTERPRETATION Brief HPI: Patient is a 68 year old female, currently under the care of myself, who presents to [facility] for complete pulmonary function tests secondary to diagnosis of COPD. Respiratory therapist reports good effort and reproducible results. Interpretation: Forced expiration spirometry shows a severe large airways obstructive ventilatory defect with an FEV1 of 57% predicted. There is a significant bronchodilator response in FEV1 by strict ATS criteria. Spirograms are of good quality and plateau slowly, indicating slowly emptying areas of the lungs. The respiratory flow volume loop shows decreased expiratory flow rates at all lung volumes consistent with airway obstruction. Lung volumes by body plethysmography show a normal total lung capacity at 4.24 L, 92% predicted. All other lung volumes are within normal limits. Diffusion capacity by carbon monoxide is decreased at 44% predicted. The airway resistance is normal. Compared to previous pulmonary function tests from 12/21/2017, there is been significant improvements in FVC, FEV1 and total lung capacity. Impression: Partially reversible severe large airways obstructive ventilatory defect with a symmetric reduction diffusing capacity, in a pattern consistent with COPD/asthma overlap syndrome.
== END | disposition home or self-care (01) ==
PROVIDERS: Family Provider Family Medicine; PCP Family Medicine; Referring Provider Internal Medicine Critical Care Medicine; Visit Provider Internal Medicine Critical Care Medicine
DX: J44.9 Chronic obstructive pulmonary disease, unspecified (principal)
CPT/HCPCS: 94060; 94726; 94729

== ENCOUNTER → 2019-05-07 13:37 | Outpatient (CLI) | payer MEDICARE, SELFPAY ==
[2019-04-22 09:30] VITALS: BMI 57.2
== END ==
PROVIDERS: Family Provider Family Medicine; PCP Family Medicine; Referring Provider Internal Medicine Cardiovascular Disease; Visit Provider Internal Medicine Cardiovascular Disease
DX: I48.92 Unspecified atrial flutter (principal)
CPT/HCPCS: 93225; 93226

== ENCOUNTER 2020-05-01 07:38 | Inpatient (IN) | payer MEDICARE, MEDICAID, SELFPAY ==
[2020-03-10 10:52] VITALS: BMI 61.6
[2020-05-01] VITALS (22 sets, daily range): BP systolic 75–147; BP diastolic 42–108; PULSE 75–138; RESP 16–28; TEMP 35.4–36.8; O2SAT 88–97; BMI 63.3; BMI 62.4
--- NOTE | 2020-05-01 07:54 | EKG12_ITS ---
Test Reason : WEAKNESS Blood Pressure : / mmHG Vent. Rate : 124 BPM Atrial Rate : 124 BPM P-R Int : 126 ms QRS Dur : 170 ms QT Int : 418 ms P-R-T Axes : 000 -80 064 degrees QTc Int : 600 ms Atrial flutter with variable block Left axis deviation Right bundle branch block Abnormal ECG Confirmed by ROLF WALKER, ELIZABETH ([id number]), video tape editor JERRICA HUITRON ([id number]) on 05/06/2020 6:31:52 AM Referred By: LESA Confirmed By:ELIZABETH BANSAL MD
--- NOTE | 2020-05-01 08:12 | ED.VISSUMM ---
- ER Visit Summary Date of Service: 05/01/20 Chief Complaint: Shortness of breath and weakness History of Present Illness: The patient is a 70 F who presents with shortness of breath and weakness that has been getting progressively worse over the past 2 weeks. Patient states she feels like she cannot get enough air. Patient states this has been constant and getting worse. Patient admits to a cough with some brown sputum. Patient states she has been taking her inhaler at home with no improvement. Patient admits to subjective chills but denies any fevers. Patient states her was recently diagnosed with COVID-19. Patient denies any loss of taste or smell. Patient denies any chest pain or palpitations. Patient admits to nausea but denies any vomiting. Physical Examination: Vital signs are stable except for a tachycardia of 138 and a tachypnea of 28. Pulse oximeter is 94% on 5 L nasal cannula. Oral mucosa is pink and moist. Neck is supple. Trachea is midline. There is no JVD. Heart was regular and tachycardic. Lungs were diminished bilaterally. There was some expiratory wheezing noted. Abdomen is soft. Bowel sounds are normal. There is no tenderness. Cranial nerves II through XII are intact. There are no focal motor or sensory deficits noted. Test Results: EKG was obtained. On my interpretation it shows sinus tachycardia with a rate of 124. There is a right bundle branch block pattern noted. There is a left anterior fascicular block noted. This was unchanged compared to previous EKG dated 02/10/2018. Portable chest x-ray was obtained. There is 1 view. On my interpretation, there is a left pleural effusion. There is some evidence of congestive heart failure. There are bilateral lower lobe infiltrates. The radiologist also interpreted the x-rays and agrees. CBC was normal. Comprehensive metabolic profile showed a slightly elevated creatinine of 1.47 and a BUN of 22. Troponin was normal. BNP was elevated at 1236.6. Lactate was elevated at 3.3. D-dimer was elevated at 1.29. Because of the elevation of the D-dimer, CTA of the chest was obtained. There is no evidence of pulmonary embolism. There are bilateral effusions that are worse on the left. There is infiltrates in both lung bases as well as in the lingular segment of the left upper lobe and posterior segment of the right upper lobe. These were interpreted by the radiologist and reviewed by myself. COVID-19 rapid antigen test was obtained and was negative. Because of the bilateral infiltrates and the recent exposure to COVID-19, a COVID-19 PCR was obtained and is negative. Blood cultures were obtained and are pending. Emergency Department Course and Treatment: Patient was given albuterol inhaler here. Patient was given a 500 cc bolus of normal saline prior to CT scan because of the elevated creatinine. Patient was given a dose of Lasix. Patient was started on Rocephin and Zithromax. Case was discussed with the hospitalist. Patient will be admitted to the hospital. Disposition: Admit to hospital Impression: 1. Pneumonia 2. Congestive heart failure 3. Severe sepsis 4. Hypoxia Critical care time: 30 minutes. This was time spent obtaining history, performing physical examination, documenting, interpreting test results, discussion with consultants, and determining disposition. This note was generated with [employer] dictation software. It may contain incorrect words, spelling, and punctuation that were not noted in review of the chart prior to signing ED Disposition - Plan for ED Patient: Disposition: Acute Care [facility] Diagnosis: Pneumonia, Severe sepsis, Congestive heart failure, Hypoxia Referrals: Alfonzo Cha [Primary Care Provider] -
[2020-05-01 08:15] LABS: Absolute Lymphocyte Count 3.87 X10^3/uL (0.83-4.51); Absolute Neutrophil Count 5.7 X10^3/uL (2.0-7.7); Basophil# 0.01 X10^3/uL; Basophil% 0.1 % (0-1); Eosinophil# 0.12 X10^3/uL; Eosinophils% 1.1 % (0-5); Hemoglobin 14.6 g/dL (12.0-15.0); Lymphocyte # 3.87 X10^3/ul (4.0); Lymphocyte % 36.3 % (19-41); Mean Corp Hgb Conc 28.6 g/dL (32-36); Mean Corpuscular Hgb 27.2 pg (27.0-32.0); Mean Platelet Vol. 10.1 fl (6.2-12.0); Monocyte# 0.96 X10^3/uL; NRBC Flagged by Analyzer 0 % (0-5); Neutrophil # 5.67 X10^3/uL (2.7-7.7); Neutrophil % 53.1 % (47-70); Platelet Count 225 K/mm3 (150-450); RBC Distribution Width CV 13.8 % (11.6-14.6); RBC Distribution Width SD 48.7 fl (35.1-43.9); Red Blood Count 5.37 M/mm3 (4.2-5.4); White Blood Count 10.7 K/mm3 (4.4-11.0)
--- NOTE | 2020-05-01 08:18 | RAD_ITS ---
STUDY: X-RAY CHEST REASON FOR EXAM: Female, 70 years old. Pt states hw of COPD, SOB, cough, weakness TECHNIQUE: Single AP portable view of the chest. COMPARISON: Comparison is made with prior examination of 04/16/2018. FINDINGS: EKG electrodes are seen. Small left pleural effusion with left basilar infiltration and/or atelectasis. Patchy infiltrates in the right upper and right lower lobes. This is superimposed on a mild degree of vascular congestion. There is borderline cardiomegaly. Normal mediastinum and angi. Normal visualized pulmonary arteries. Normal visualized aortic arch and descending thoracic aorta. There are diffuse degenerative changes of the visualized thoracic spine. Normal visualized ribs, clavicles, and shoulders. There is no demonstrated abnormality of the visualized soft tissue structures of the upper abdomen. RAD/Chest 1 View (Portable) IMPRESSION: Small left pleural effusion with left basilar infiltration and/or atelectasis. Focal infiltrate in the right upper and right lower lobes superimposed on a mild degree of vascular congestion. Electronically Signed: Lewis Aguirre, at 8:38 EST , Service support ,
[2020-05-01 08:19] LABS: ALB/GLOB Ratio 0.7 RATIO (0.9-2.4); AST(SGOT) 27 U/L (15-37); Alanine Aminotransfer ALT/SGPT 32 U/L (13-56); Albumin, Serum 3.3 g/dL (3.2-5.0); Alkaline Phosphatase 128 U/L (45-117); Anion Gap 3 (5-15); BUN 22 mg/dL (7-18); Calcium,Total 8.9 mg/dL (8.5-10.1); Chloride 106 mmol/L (98-107); Creatinine, Serum 1.47 mg/dL (0.55-1.02); EST Glomerular Filtration Rate 37 mL/min (>60); Est Glom Filt Rate - Afr Amer 45 mL/min (>60); Estimated Creatinine Clearance 29.87 ml/min; Globulin 4.6 g/dL (2.2-4.2); Glucose 204 mg/dL (74-106); Potassium 4.1 mmol/L (3.5-5.1); Protein, Total 7.9 g/dL (6.4-8.2); Sodium Level 142 mmol/L (136-145)
[2020-05-01 08:33] LABS: D-Dimer Quantitative (DVT/PE) 1.29 FEU/ug/m (0.27-0.49)
[2020-05-01 08:34] LABS: BNP,B-Type NATRIURETIC PEPTIDE 1236.6 pg/mL (0-100)
--- NOTE | 2020-05-01 08:40 | CT_ITS ---
STUDY: CTA CHEST REASON FOR EXAM: Female, 70 years old. Dyspnea and amp; weakens x several weeks, uterine cancer hx, COPD, CHF, hypertension. RADIATION DOSAGE (If Supplied By Facility): CTDIvol = ( 37.38 ) mGy, DLP = ( 814.92 ) mGycm TECHNIQUE: The examination was performed with the intravenous administration of 100mL Isovue 370. Post-processing of the angiographic images was performed, with multiplanar reformation and 3D reconstruction. Individualized dose optimization techniques were used for this CT. COMPARISON: Comparison is made with prior chest grade left and earlier today as well as prior CT scan of thorax dated 11/15/2017. FINDINGS: Normal enhancement of the main pulmonary artery and right and left pulmonary arteries. Normal enhancement of the bilateral peripheral pulmonary arteries. There is no demonstrated pulmonary embolism. Normal thoracic aorta and visualized great vessels. There is no demonstrated aortic dissection. There is cardiomegaly. There are visualized mediastinal lymph nodes, which are within normal size limits, and with normal morphology. Normal hilar regions. Normal visualized trachea and bronchi. The lungs are well expanded. Small bilateral pleural effusions left greater than right with infiltration at both lung bases worse on the left side. Mild increased markings are also seen in the posterolateral aspect of the right upper lobe. Focal infiltrate and/or atelectasis also seen in the lingular segment of the left upper lobe. Normal chest wall structures. There are degenerative changes of thoracic spine. Normal visualized upper abdomen. CT/CTA Chest W/WO Contrast IMPRESSION: Bilateral pleural effusions left greater than right with the infiltrates at both lung bases more prominent on the left side. Atelectasis/infiltrate is seen in the lingular segment of the left upper lobe as well as the posterior aspect of the right upper lobe. No evidence of pulmonary embolism. Electronically Signed: Lewis Aguirre, at 9:35 EST , Service support ,
[2020-05-01 08:43] LABS: Lactic Acid 3.3 mmol/L (0.4-1.9)
[2020-05-01] MEDS: Metoprolol Tartrate 100 MG Tablet 150 MG PO ×2 (09:01→22:54)
[2020-05-01] MEDS: Ceftriaxone 1 GM/50 ML BAG IV (10:22)
--- NOTE | 2020-05-01 11:17 | NURSING ---
PCU TERELETSKY CHF, HYPOXIA, PNEUMONIA, SEVERE SEPSIS
[2020-05-01] MEDS: Furosemide 40 MG/4 ML Vial IV (11:34)
[2020-05-01 12:00] LABS: Reflex Lactate? Y
--- NOTE | 2020-05-01 12:09 | ED.RN ---
CALLED AND LEFT MESSAGE FOR SUSU PTS DAUGHTER. PT AWARE.
[2020-05-01] MEDS: Ondansetron 4 MG/2 ML Vial IV (12:15)
[2020-05-01 13:00] LABS: Lactic Acid 2.3 mmol/L (0.4-1.9)
--- NOTE | 2020-05-01 13:55 | ECHOCS_ITS ---
Reason For Study: CHF Procedure This was a 2D Doppler, Color Flow transthoracic echocardiogram. The study was technically difficult. Contrast injection was performed. Exam performed portable in patient room. Left Ventricle Moderate concentric left ventricular hypertrophy. Based upon the 2D echocardiographic and contrast enhanced images obtained there appears to be mild left ventricular dilatation and severe global left ventricular systolic dysfunction. The estimated ejection fraction is 15 %. There is evidence of diastolic dysfunction. Right Ventricle Severely dilated right ventricle. Severe global right ventricular systolic dysfunction. Atria The left atrium is mildly enlarged. The right atrium is mildly enlarged. No doppler evidence for ASD. Mitral Valve There is mild mitral annular calcification. Extension of the mitral annular calcification on the base of the posterior mitral valve leaflet. Mild (1+) mitral valve insufficiency. Tricuspid Valve Normal tricuspid valve. Mild tricuspid valve insufficiency. Right ventricular systolic pressure estimated to be 43 mmHg. Aortic Valve Trisinus/trileaflet aortic valve. Normal aortic valve. Pulmonic Valve The pulmonic valve is not well visualized. Trivial pulmonic valve insufficiency. Great Vessels Normal sized aortic root. Pericardium/Pleural No pericardial effusion. Echo lucency compatible with a pleural effusion. Medication Diluted definity 3ml given slow IV push to enhance endocardial definition. MMode/2D Measurements & Calculations LVIDd: 5.5 cm IVSd: 1.6 cm Ao root diam: 2.9 cm LVIDs: 5.0 cm LVPWd: 1.5 cm RVDd: 4.5 cm FS: 8.7 % LAV(MOD-bp): 73.2 ml LA A4 area: 21.3 cm2 LA dimension(2D): 5.2 cm LAV(MOD-bp) Indexed: 28.9 ml/m2 LAV(MOD-sp2): 90.0 ml LAV(MOD-sp4): 58.1 ml RA A4 area: 20.1 cm2 Doppler Measurements & Calculations MV E max mario: 87.5 cm/sec Lat Peak E' Mario: 4.7 cm/sec Ao V2 max: 116.3 cm/sec MV A max mario: 130.3 cm/sec E/E' lat: 18.6 Ao max P.4 mmHg MV E/A: 0.67 Ao V2 mean: 87.3 cm/sec Ao mean P.2 mmHg Ao V2 VTI: 11.5 cm LV V1 max: 58.1 cm/sec PA V2 max: 41.5 cm/sec TR max mario: 296.0 cm/sec LV V1 max P.4 mmHg TR max P.1 mmHg Interpretation Summary The study was technically difficult. Contrast injection was performed. Based upon the 2D echocardiographic and contrast enhanced images obtained there appears to be mild left ventricular dilatation and severe global left ventricular systolic dysfunction. The estimated ejection fraction is 15 %. Moderate concentric left ventricular hypertrophy. Severely dilated right ventricle. Severe global right ventricular systolic dysfunction. The left atrium is mildly enlarged. The right atrium is mildly enlarged. There is mild mitral annular calcification. Extension of the mitral annular calcification on the base of the posterior mitral valve leaflet. Mild (1+) mitral valve insufficiency. Mild tricuspid valve insufficiency. Trivial pulmonic valve insufficiency. Echo lucency compatible with a pleural effusion. Right ventricular systolic pressure estimated to be 43 mmHg. There is evidence of diastolic dysfunction. Ordering Physician: Trey Gutierres Referring Physician: Alfonzo Cha Performed By: Nivia Bond RDCS, RVT
--- NOTE | 2020-05-01 14:23 | PCM.HP.STD ---
Problem List (1) Pneumonia Status: Acute (2) Severe sepsis Status: Acute (3) Congestive heart failure Status: Acute (4) Hypoxia Status: Acute (5) Longstanding persistent atrial fibrillation Status: Chronic (6) Chronic systolic (congestive) heart failure Status: Chronic (7) Essential hypertension Status: Chronic (8) COPD with asthma Status: Chronic (9) Abnormal stress test Status: Resolved (10) CECILIA (obstructive sleep apnea) Status: Chronic (11) Chronic obstructive pulmonary disease Status: Chronic Qualifiers: (12) Morbid obesity Status: Chronic (13) GERD (gastroesophageal reflux disease) Status: Chronic Qualifiers: History of Present Illness Date of Admission: 05/01/20 Chief Complaint: Shortness of breath. The patient is a 70 year old F who presents to the emergency room due to shortness of breath. Patient states she typically wears oxygen at bedtime however over the past few weeks has had to wear oxygen continuously during the day. She does not weigh herself at home however reports increased abdominal swelling. Denies cough, fever, chills. States shortness of breath has been worsening over the past few weeks. Patient states her was diagnosed with Covid at the end of March. She has been asymptomatic. Her rapid and PCR Covid testing were negative. She has a past medical history of chronic heart failure with reduced ejection fraction, chronic kidney disease stage III, chronic atrial fibrillation, COPD with asthma, hypertension, CECILIA with chronic oxygen at bedtime, morbid obesity. Past Medical History Past Medical History (Chronic Problems): Chronic Problems (Last Reviewed 03/10/20 @ 10:53 by Yulisa Chou) Longstanding persistent atrial fibrillation (Chronic) Chronic systolic (congestive) heart failure (Chronic) Essential hypertension (Chronic) COPD with asthma (Chronic) CECILIA (obstructive sleep apnea) (Chronic) Chronic obstructive pulmonary disease (Chronic) Morbid obesity (Chronic) GERD (gastroesophageal reflux disease) (Chronic) Medical History: Medical History (Last Reviewed 03/10/20 @ 10:53 by Yulisa Chou) Longstanding persistent atrial fibrillation (Chronic) I48.11 Chronic systolic (congestive) heart failure (Chronic) I50.22 Essential hypertension (Chronic) I10 Chronic obstructive pulmonary disease (Chronic) J44.9 Morbid obesity (Chronic) E66.01 GERD (gastroesophageal reflux disease) (Chronic) K21.9 CECILIA (obstructive sleep apnea) G47.33 Acute kidney injury (Resolved) N17.9 Acute respiratory failure (Resolved) J96.00 Atrial flutter with rapid ventricular response (Resolved) I48.92 Healthcare associated bacterial pneumonia (Resolved) J15.9 Healthcare-associated pneumonia (Resolved) J18.9 Atrial flutter (Inactive) I48.92 Allergies aspirin [ASA] Adverse Reaction (Verified 05/01/20 07:46) stomach burning and sick to stomach propoxyphene HCl [From Darvon] Adverse Reaction (Verified 05/01/20 07:46) i get dizzy and pass out event monitor pads Allergy (Severe, Uncoded 05/01/20 07:46) Blisters Home Medications: Ambulatory Orders Medication Instructions Recorded Acetaminophen [Tylenol Tablet] 650 mg PO Q6H PRN PRN tab 02/10/18 Calcium Carb/Vitamin D [Os-Jose 1 tab PO DAILY tab 02/10/18 500MG + D] furosemide 40 mg tablet 40 mg PO DAILY 03/02/18 lisinopril 2.5 mg tablet 2.5 mg PO DAILY 04/16/18 omega-3 fatty acids 1,000 mg 1,000 mg PO DAILY 07/19/18 capsule apixaban 5 mg tablet 5 mg PO BID #60 tab 06/24/19 metoprolol tartrate 100 mg tablet 150 mg PO BID #240 tab 10/02/19 Surgical History: Surgical History (Last Reviewed 03/10/20 @ 10:53 by Yulisa Chou) History of appendectomy Z90.49 History of total hysterectomy Z90.710 Status post left heart catheterization (LHC) Onset Date: ~05/11/18 Z98.890 normal coronaries 05/11/18 Surgical History: hysterectomy - total Psychiatric History: No pertinent psych hx SECTION HAND HELPER History: No pertinent SECTION HAND HELPER history Lives: Spouse/ Significant Other Smoking Status: Former smoker Alcohol: None Drugs: None - *Family History Maternal Family History: Family History (Last Reviewed 05/01/20 @ 15:01 by Valarie Snow NP, [employer]-C) Mother Heart disease Father Heart disease History Items: Heart Disease Paternal Family History: Family History (Last Reviewed 05/01/20 @ 15:01 by Valarie Snow NP, [employer]-C) Mother Heart disease Father Heart disease History Items: Heart Disease Review of Systems Constitutional: Denies: Chills, Fever, Weight Change HEENT: Denies: Head Aches, Sinus Congestion, Sinus Drainage Cardiovascular: Reports: Edema - Abdominal and lower extremity edema. Denies: Chest Pain, Palpitations Respiratory: Reports: Shortness of Breath. Denies: Cough, Wheezing Gastrointestinal: Denies: Abdominal Pain, Nausea, Vomiting Genitourinary: Denies: Dysuria Musculoskeletal: Denies: Joint Pain, Joint Tenderness Skin: Denies: Rash, Wounds Neurological: Denies: Numbness, Tingling, Focal weakness Psychiatric: Denies: Anxiety, Depression, Homicidal Ideations, Suicidal Ideations Hematologic/ Lymphatic: Denies: Easy Bruising, Easy Bleeding VTE Information - Inpt Only VTE Present on Admission: No VTE Mechan Device Prophylaxis: None VTE Pharm Prophylaxis ordered?: No Reason prophylaxis not ordered:: Treatment Not Indicated - Already on anticoagulation with Eliquis Patient Problems: Active and Suspected Problems (Last Reviewed 03/10/20 @ 10:53 by Yulisa Chou) Pneumonia (Acute) Severe sepsis (Acute) Congestive heart failure (Acute) Hypoxia (Acute) - Physical Exam Vitals/I&O's: Vital Signs Temp Pulse Resp BP Pulse Ox 97.9 F 118 H 20 H 116/81 H 93 05/01/20 14:02 05/01/20 14:02 05/01/20 14:02 05/01/20 14:02 05/01/20 14:02 Oxygen Flow Rate (L/min) 6 Oxygen Delivery Method Nasal Cannula Weight: 363 lb 5.149 oz Body Mass Index (BMI) 62.4 Intake and Output for Last 24 Hours 04/29/20 04/30/20 05/01/20 23:59 23:59 23:59 Intake Total 805 / 805 Balance 805 / 805 General: Alert, Oriented x3, Cooperative HEENT: Atraumatic, PERRLA, EOMI, Normocephalic Neck: Supple, No JVD, Negative Carotid Bruits Lungs: Clear to auscultation, Diminished Cardiovascular: - - Atrial fibrillation Abdomen: Bowel Sounds Present, Soft, Non Tender, Non-Distended, Obese Extremities: No clubbing, No cyanosis, Capillary Refill Less than 3 Seconds, Edema - Lower extremity and abdominal Skin: No rashes, No breakdown Musculoskeletal: No Tenderness to Palpation of Joints or Extremities Neurological: Cranial nerves II-XII grossly intact, Neuro grossly intact Psych/Mental Status: Normal Affect, Appropriate Microbiology Past 72 Hours 05/01/20 07:55 Mucosa - Nose SARS-CoV-2 Antigen (Rapid) - Final 05/01/20 07:55 Mucosa - Nose Influenza Types A,B Direct FA ([facility]) - Final Laboratory Results 05/01/20 07:45: WBC 10.7, RBC 5.37, Hgb 14.6, Hct 51.0 H, MCV 95.0, MCH 27.2, MCHC 28.6 L, RDW Std Deviation 48.7 H, RDW Coeff of Liam 13.8, Plt Count 225, MPV 10.1, Immature Gran % (Auto) 0.400, Neut % (Auto) 53.1, Lymph % (Auto) 36.3, Cooke % (Auto) 9.0, Eos % (Auto) 1.1, Baso % (Auto) 0.1, Absolute Neuts (auto) 5.7, Absolute Lymphs (auto) 3.87, Nucleated RBC % 0 05/01/20 07:45: D-Dimer Quant (PE/DVT) 1.29 H* 05/01/20 07:45: Sodium 142, Potassium 4.1, Chloride 106, Carbon Dioxide 33.0 H, Anion Gap 3 L, BUN 22 H, Creatinine 1.47 H, Estim Creat Clear Calc 29.87, Est GFR (MDRD) Af Amer 45 L, Est GFR (MDRD) Non-Af 37 L, BUN/Creatinine Ratio 15.0, Glucose 204 H, Calcium 8.9, Total Bilirubin 0.70, AST 27, ALT 32, Alkaline Phosphatase 128 H, Troponin I < 0.015, Total Protein 7.9, Albumin 3.3, Globulin 4.6 H, Albumin/Globulin Ratio 0.7 L 05/01/20 07:45: Lactic Acid 3.3 H* 05/01/20 07:45: B-Natriuretic Peptide 1236.6 H 05/01/20 08:40: COVID-19 ([facility]) Not Detected 05/01/20 12:10: Lactic Acid 2.3 H* Current Medications Acetaminophen (Acetaminophen 325 Mg Tablet) 650 mg PO Q6H PRN PRN PRN Reason: Pain Score 1-10/Temp > 100.7 F Apixaban (Apixaban 5 Mg Tablet) 5 mg PO BID [facility] Furosemide 500 mg/ N/A 50 mls @ 1 mls/hr CONT INF .Q50H [facility] Lisinopril (Lisinopril 2.5 Mg Tablet) 2.5 mg PO DAILY [facility] Metoprolol Tartrate (Metoprolol Tartrate 100 Mg Tablet) 150 mg PO BID [facility] Nutritional Formula (Lactose Free) (Ensure Enlive 120 Ml Liquid) 120 ml PO 4X/DAY [facility] Ondansetron HCl (Ondansetron 4 Mg/2 Ml Vial) 4 mg IV Q8H PRN PRN PRN Reason: NAUSEA/VOMITING Pantoprazole Sodium (Pantoprazole Sodium 20 Mg Tablet) 20 mg PO DAILY [facility] Potassium Chloride (Potassium Chloride 20 Meq Tablet) [facility]/Plan All Active Problems (Last Reviewed 03/10/20 @ 10:53 by Yulisa Chou) Pneumonia (Acute) Severe sepsis (Acute) Congestive heart failure (Acute) Hypoxia (Acute) Abnormal stress test (Resolved) Acute kidney injury (Resolved) Acute respiratory failure (Resolved) Atrial flutter with rapid ventricular response (Resolved) Healthcare associated bacterial pneumonia (Resolved) Healthcare-associated pneumonia (Resolved) 1. Acute on chronic hypoxic respiratory insufficiency secondary to acute on chronic heart failure with reduced ejection fraction, bilateral pleural effusions-low suspicion for pneumonia. BNP 1200. Covid negative. No leukocytosis, afebrile. Placed on Lasix drip. Strict I&O. Daily weight. Echocardiogram in 2018 demonstrated an EF of 31%. Repeat echo ordered. Patient follows with Dr. Hernandez. Continue supplement oxygen to maintain O2 at above 90%. 2. Acute kidney injury on chronic kidney disease stage III-diuresis as noted above, trend BMP. 3. Chronic atrial fibrillation-mildly tachycardic on admission. Continue metoprolol. On Eliquis. 4. COPD with asthma-no exacerbation. As needed albuterol aerosol. 5. Hypertension-stable, continue lisinopril, metoprolol. 6. CECILIA-continue home Pap therapy. 7. Morbid obesity-diet and lifestyle modifications encouraged. DVT prophylaxis-Eliquis This patient was seen by [facility] under the supervision of Dr. Gutierres.
[2020-05-01] MEDS: Furosemide 500 MG in Empty Viaflex 50 mL 1 EACH CONT INF (15:41)
[2020-05-01] MEDS: 0.9% Saline Lock 10 ML Syringe IV ×2 (15:42→19:47)
--- NOTE | 2020-05-01 18:28 | EKG12_ITS ---
Test Reason : POSS SVT Blood Pressure : / mmHG Vent. Rate : 123 BPM Atrial Rate : 246 BPM P-R Int : 000 ms QRS Dur : 148 ms QT Int : 390 ms P-R-T Axes : 263 -89 -73 degrees QTc Int : 558 ms Atrial flutter Left axis deviation Right bundle branch block Inferior infarct , age undetermined Anterolateral infarct , age undetermined Abnormal ECG When compared with ECG of 01-MAY-2020 08:05, MANUAL COMPARISON REQUIRED, DATA IS UNCONFIRMED Confirmed by ROLF WALKER, ELIZABETH ([id number]), story editor SIGIFREDO MORAES ([id number]) on 05/07/2020 2:35:24 PM Referred By: DR HILL Confirmed By:ELIZABETH BANSAL MD
[2020-05-01] MEDS: Digoxin 250 MCG/ML Ampul 500 MCG IV (19:47)
[2020-05-01] MEDS: Amiodarone 360 MG in Dextrose 5% Viaflo Bag 192.8 ML 33.3 MG CONT INF (21:28)
[2020-05-01] MEDS: APIXABAN 5 MG TABLET PO (22:55)
[2020-05-02] VITALS (34 sets, daily range): BP systolic 97–150; BP diastolic 63–107; PULSE 60–116; RESP 13–23; TEMP 36.1–36.3; O2SAT 90–97
[2020-05-02] MEDS: Amiodarone 360 MG in Dextrose 5% Viaflo Bag 192.8 ML 16.7 MG CONT INF ×2 (03:53→17:06)
--- NOTE | 2020-05-02 05:55 | RAD_ITS ---
STUDY: X-RAY CHEST REASON FOR EXAM: Female, 70 years old. Congestive Heart Failure, Hypoxic respiratory failure. TECHNIQUE: Single AP portable view of the chest. COMPARISON: 04/21/2020 FINDINGS: Poor inspiration with some bibasilar atelectasis. Elevated left hemidiaphragm which is unchanged. There is moderate cardiac enlargement. Normal mediastinum and angi. Normal visualized pulmonary arteries. Normal visualized aortic arch and descending thoracic aorta. Normal visualized thoracic spine. Normal visualized ribs, clavicles, and shoulders. There is no demonstrated abnormality of the visualized soft tissue structures of the upper abdomen. RAD/Chest 1 View (Portable) IMPRESSION: Poor inspiration with some bibasilar atelectasis Electronically Signed: Henok Rhodes MD at 7:12 EST Tel , Service support ,
--- NOTE | 2020-05-02 06:35 | CPS ---
had to replace pt bipap with a sleep lab bipap with settings of 18/12 with a 10 L o2 bleed in. Pts home machine is set at 14/8 with 14 L o2 bled in , spo2 was only 85% and dropping while she slept. RN notified. Pt still has own mask with sleep lab machine. Passed on information in report to other RT.
--- NOTE | 2020-05-02 07:40 | PCS.PANDOC ---
PANDEMIC DOCUMENTATION INITIATED: Date: 05/01/19 Time: 1400
[2020-05-02 08:42] LABS: Anion Gap 3 (5-15); BUN 25 mg/dL (7-18); Calcium,Total 8.6 mg/dL (8.5-10.1); Chloride 108 mmol/L (98-107); Creatinine, Serum 1.39 mg/dL (0.55-1.02); EST Glomerular Filtration Rate 40 mL/min (>60); Est Glom Filt Rate - Afr Amer 48 mL/min (>60); Estimated Creatinine Clearance 31.59 ml/min; Glucose 87 mg/dL (74-106); Potassium 4.8 mmol/L (3.5-5.1); Sodium Level 141 mmol/L (136-145)
[2020-05-02] MEDS: APIXABAN 5 MG TABLET PO ×2 (08:55→20:56)
[2020-05-02] MEDS: Pantoprazole Sodium 20 MG Tablet PO (08:55)
[2020-05-02] MEDS: Metoprolol Tartrate 100 MG Tablet 150 MG PO (08:55)
[2020-05-02] MEDS: Lisinopril 2.5 MG Tablet PO (08:56)
--- NOTE | 2020-05-02 13:24 | PCM.CONS.C ---
Problem List (1) Congestive heart failure Status: Acute Qualifiers: Heart failure type: systolic Heart failure chronicity: acute on chronic Qualified Code(s): I50.23 - Acute on chronic systolic (congestive) heart failure (2) Cardiomyopathy Status: Chronic Qualifiers: Cardiomyopathy type: dilated Qualified Code(s): I42.0 - Dilated cardiomyopathy (3) CAD (coronary artery disease) Status: Chronic Qualifiers: Coronary Disease-Associated Artery/Lesion type: [place] artery [place] vs. transplanted heart: [place] heart Associated angina: without angina Qualified Code(s): I25.10 - Atherosclerotic heart disease of [place] coronary artery without angina pectoris (4) Atrial flutter Status: Chronic (5) Essential hypertension Status: Chronic (6) COPD with asthma Status: Chronic (7) CECILIA (obstructive sleep apnea) Status: Chronic (8) Morbid obesity Status: Chronic Reason for Consult Date of Consultation: 05/02/20 History of Present Illness: The patient is a 70 year [id number] white female who was referred for evaluation of acute on chronic systolic CHF secondary to an underlying known CAD related cardiomyopathy superimposed on history of CAD-nonangiographically significant, chronic atrial flutter, hypertension, COPD, obstructive sleep apnea, and morbid obesity. The patient has had a longstanding cardiovascular history for which she has been evaluated locally, at the [facility], and at [facility] electrophysiology. She has been treated medically for her underlying cardiovascular disease and with respect to her atrial dysrhythmias she has undergone multiple synchronized biphasic DC cardioversions. At [facility] electrophysiology she was considered for invasive EP evaluation, however, secondary to her underlying pulmonary disease process and morbid obesity she was considered a high risk, thus, she elected not to proceed with such a procedure at that time. She presented back to the hospital with progressive shortness of breath/dyspnea and a sensation of increased abdominal girth. She does not recall having any chest discomfort. She knows she has remained in atrial flutter. She has had no near syncope or syncope. Since her hospitalization she has been treated medically with IV diuretics, the addition of IV talus and amiodarone to assist with rate control, and CPAP/BiPAP therapy. She states without her CPAP/BiPAP therapy her oxygen levels dropped and she becomes more short of breath and dyspneic. She has had laboratory studies performed. Her troponin I level was negative. Her BNP level was 1236.6. She is undergone chest x-ray and chest CT scan with the findings as noted below. She had COVID-19 testing which was reported as nondetected. She also had a follow-up transthoracic echocardiogram. The report is as noted below. It has demonstrated comparison to previous studies that her overall left ventricular systolic function/LVEF has declined. [] Past Medical History Allergies/Adverse Reactions: Allergies aspirin [ASA] Adverse Reaction (Verified 05/01/20 07:46) stomach burning and sick to stomach propoxyphene HCl [From Darvon] Adverse Reaction (Verified 05/01/20 07:46) i get dizzy and pass out event monitor pads Allergy (Severe, Uncoded 05/01/20 07:46) Blisters Home Medications: Ambulatory Orders Medication Instructions Recorded Acetaminophen [Tylenol Tablet] 650 mg PO Q6H PRN PRN tab 02/10/18 Calcium Carb/Vitamin D [Os-Jose 1 tab PO DAILY tab 02/10/18 500MG + D] furosemide 40 mg tablet 40 mg PO DAILY 03/02/18 lisinopril 2.5 mg tablet 2.5 mg PO DAILY 04/16/18 omega-3 fatty acids 1,000 mg 1,000 mg PO DAILY 07/19/18 capsule apixaban 5 mg tablet 5 mg PO BID #60 tab 06/24/19 metoprolol tartrate 100 mg tablet 150 mg PO BID #240 tab 10/02/19 Past Medical History (Chronic Problems): Chronic Problems (Last Reviewed 03/10/20 @ 10:53 by Yulisa Chou) CAD (coronary artery disease) (Chronic) Cardiomyopathy (Chronic) Atrial flutter (Chronic) Longstanding persistent atrial fibrillation (Chronic) Chronic systolic (congestive) heart failure (Chronic) Essential hypertension (Chronic) COPD with asthma (Chronic) CECILIA (obstructive sleep apnea) (Chronic) Chronic obstructive pulmonary disease (Chronic) Morbid obesity (Chronic) GERD (gastroesophageal reflux disease) (Chronic) Surgical History: hysterectomy - total Psychiatric History: No pertinent psych hx 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: No pertinent GLOBAL MARKETING OPERATIONS MANAGER history - *Family History Maternal Family History: Family History (Last Reviewed 05/01/20 @ 15:01 by Valarie Snow NP, PRODUCT SAFETY SPECIALIST-C) Mother Heart disease Father Heart disease History Items: Heart Disease Paternal Family History: Family History (Last Reviewed 05/01/20 @ 15:01 by Valarie Edy PRODUCT SAFETY SPECIALIST, PRODUCT SAFETY SPECIALIST-C) Mother Heart disease Father Heart disease History Items: Heart Disease Lives: Spouse/ Significant Other Smoking Status: Former smoker Alcohol: None Drugs: None Review of Systems - Review of Systems General: Denies: Fever, Night Sweats, Fatigue Cardiovascular: Reports: Shortness of Breath, Shortness of Breath at Rest, Shortness of Breath with Exertion. Denies: Chest Discomfort, Orthopnea, PND, Peripheral Edema, Palpitations, Lightheadedness, Dizziness, Near Syncope, Syncope Respiratory: Reports: Shortness of Breath. Denies: Cough, Sputum Production, Hemoptysis Gastrointestinal: Denies: Hematemesis, Hematochezia, Melena Genitourinary: Denies: Dysuria, Hematuria Skin: Denies: Rash Subjectve: This is a 70-year-old morbidly obese white female wearing a CPAP/BiPAP device who appears to be resting reasonably comfortably at the moment in no acute distress. Objective: Vital Signs Temp Pulse Resp BP Pulse Ox 97.3 F L 60 22 H 130/79 H 96 05/02/20 11:00 05/02/20 13:00 05/02/20 13:00 05/02/20 13:00 05/02/20 13:00 Oxygen Flow Rate (L/min) 10 Oxygen Delivery Method CPAP Weight: 361 lb 3.2 oz Body Mass Index (BMI) 62.4 Intake and Output for Last 24 Hours 04/30/20 05/01/20 05/02/20 23:59 23:59 23:59 Intake Total 1321.29 / 1321.29 888.96 / 888.96 Output Total 300 / 300 150 / 150 Balance 1021.29 / 1021.29 738.96 / 738.96 General: Awake, Alert, Oriented x 3, Cooperative, No Acute Distress, Obese HEENT: Atraumatic, Normocephalic, PERRL, EOMI, Sclera Non Icteric Neck: Supple, Good ROM Lungs: Diminished Randall Bases Cardiovascular: Irregular Rhythm, Normal S1, Normal S2 Abdomen: Bowel Sounds Present, Soft, Obese Extremities: Trace RLE Edema, Trace LLE Edema Neurological: No Focal Motor or Sensory Deficit Psych/Mental Status: Appropriate 05/02/20 07:57: Sodium 141, Potassium 4.8, Chloride 108 H, Carbon Dioxide 30.0, Anion Gap 3 L, BUN 25 H, Creatinine 1.39 H, Est GFR (MDRD) Af Amer 48 L, Est GFR (MDRD) Non-Af 40 L, BUN/Creatinine Ratio 18.0, Glucose 87, Calcium 8.6 Rhythm: Atrial flutter EKG: Trolled flutter; left axis deviation; right bundle branch block; anterolateral OH-indeterminate age-cannot be excluded ECHO: 05/01/2020 Interpretation Summary The study was technically difficult. Contrast injection was performed. Based upon the 2D echocardiographic and contrast enhanced images obtained there appears to be mild left ventricular dilatation and severe global left ventricular systolic dysfunction. The estimated ejection fraction is 15 %. Moderate concentric left ventricular hypertrophy. Severely dilated right ventricle. Severe global right ventricular systolic dysfunction. The left atrium is mildly enlarged. The right atrium is mildly enlarged. There is mild mitral annular calcification. Extension of the mitral annular calcification on the base of the posterior mitral valve leaflet. Mild (1+) mitral valve insufficiency. Mild tricuspid valve insufficiency. Trivial pulmonic valve insufficiency. Echo lucency compatible with a pleural effusion. Right ventricular systolic pressure estimated to be 43 mmHg. There is evidence of diastolic dysfunction. NEREYDA: 11/15/2017 Interpretation Summary Mild global left ventricular systolic dysfunction. The estimated ejection fraction is 45 %. Mildly dilated right ventricle. Mild segmental dysfunction of right ventricle. The left atrium is mildly enlarged. There is mild sponatenous contrast in the left atrium. No thrombus is detected in the left atrial appendage. The right atrium is mildly enlarged. There is mild to moderate mitral annular calcification. Extension of the mitral annular calcification onto the posterior mitral valve leaflet. Mild (1+) mitral valve insufficiency. Moderate (2+) tricuspid valve insufficiency. Mild focal aortic valve calcification. Color flow doppler c/w a left to right interatrial shunt c/w a PFO. Agitated saline contrast study c/w a right to left interatrial shunt c/w a PFO. Normal appearing thoracic aorta. Stress Test Report Date: 05/15/2017 Procedure: Pharmacologic stress nuclear imaging study Indications: Shortness of breath/dyspnea; chest pain; atrial flutter Consent: Per the patient Procedure: The patient underwent pharmacologic (Regadenoson) evaluation with a peak heart rate of 106 beats per minute (70 predicted maximal heart rate) and a peak blood pressure of 124/84 mmHg. The baseline ECG demonstrated atrial flutter; right bundle branch block pattern. The peak pharmacologic ECG demonstrated no obvious ECG changes. There were no cardiac dysrhythmias pretest, during pharmacologic infusion, or recovery. There was no complaint of chest discomfort during pharmacologic infusion or recovery. The examination was discontinued secondary to completion of protocol. Impression: 1. Pharmacologic (Regadenoson) evaluation 2. Peak pharmacologic ECG with continued atrial flutter with right bundle branch block pattern. 3. There were no cardiac dysrhythmias pretest, during pharmacologic infusion, or recovery. 4. Nuclear images pending Myocardial perfusion imaging study: Technique: The patient was injected with 11.1 millicuries of technetium 99m Cardiolite and subsequently rest SPECT Cardiolite nuclear imaging was obtained in the horizontal long, vertical long, and short axis views. The patient underwent pharmacologic (Regadenoson) evaluation with a peak heart rate of 106 beats per minute (70 % percent predicted maximal heart rate) and a peak blood pressure of 124/84 mmHg. The patient was injected with 35.5 millicuries of technetium 99m Cardiolite and subsequently stress SPECT Cardiolite nuclear imaging was obtained in the horizontal long, vertical long, and short axis views. A gated Cardiolite study at peak stress was obtained. Interpretation: Rest and stress SPECT Cardiolite nuclear imaging status post realignment, normalization, and attenuation correction demonstrate at rest areas of diminished to absence of tracer uptake in portions of the distal anterior, anteroseptal, anterior apical, and septal apical areas. Status post stress there is notation of additional areas of diminished myocardial perfusion/tracer uptake in portions of the mid to distal anterior, anteroseptal, anterolateral, anteroapical, septal apical, and lateral apical segments. There is diminished end-systolic thickening and brightening. The he did Cardiolite study demonstrates diminished myocardial and were wall motion and thickening. The reported LVEF is 39 %. Impression: 1. Rest and stress SPECT Cardiolite nuclear imaging demonstrate myocardial perfusion changes potentially compatible with areas of previous myocardial injury/infarction and post stress myocardial perfusion changes compatible with gi-infarct related stress-induced myocardial ischemia involving portions of the anterior, anteroseptal, anterolateral, and apical segments, however, contribution from sifting soft tissue attenuation/artifact and the underlying atrial dysrhythmia cannot necessarily be excluded. 2. The gated Cardiolite study reports an LVEF of 39 %. Cardiac Cath: 05/11/2018 CONCLUSIONS Elevated Left Ventricular End Diastolic Pressure Global LV systolic dysfunction- Moderate LVEF: by LV gram 30 % Normal coronary arteries RECOMMENDATIONS DESCRIPTION OF PROCEDURE The patient arrived to the procedure lab. The risks and benefits of the procedure as well as a full description of our services here and current unavailability of surgical backup were fully explained to the patient and/or their significant other prior to the catheterization. The Timeout was completed, verifying the correct patient and procedure. The patient's procedural site was prepped and draped in the usual fashion. Local anesthetic was given subcutaneously to right radial region with Lidocaine 2%. Using a modified Seldinger technique, arterial access was obtained via the right radial artery, a 6Fr sheath was inserted. Left Coronary Artery selective angiography was performed in multiple views using a 5 Fr. 4.0 [place] catheter. Right Coronary Artery selective angiography was then performed in multiple views using a 5 Fr. 4.0 [place] catheter. Left Coronary Artery selective angiography was performed in multiple views using a 5 Fr. JL3.5 catheter. Left Ventriculography was performed in SPIVEY projection using a 5 Fr. Pig[place] catheter. LV to AO pullback pressures were then recorded.The arterial sheath was pulled and a TR Band was applied for hemostasis CORONARY ANGIOGRAPHY DOMINANCE: Left Dominant LEFT HEART ASSESSMENT Left Ventricular Ejection Fraction: by LV Gram 30 % Global Hypokinesis - Moderate Elevated Left Ventricular End Diastolic Pressure LVEDP: 22 mmHg LEFT MAIN: Angiographically normal LEFT ANTERIOR DECENDING ARTERY: Angiographically normal CIRCUMFLEX ARTERY: Angiographically normal RIGHT CORONARY ARTERY: Angiographically normal VALVE FINDINGS: Normal Aortic Valve function Normal Mitral Valve function AORTIC ROOT: Angiographically normal CXR: IMPRESSION: Poor inspiration with some bibasilar atelectasis Electronically Signed: Henok Rhodes MD FINDINGS: Normal enhancement of the main pulmonary artery and right and left pulmonary arteries. Normal enhancement of the bilateral peripheral pulmonary arteries. There is no demonstrated pulmonary embolism. Normal thoracic aorta and visualized great vessels. There is no demonstrated aortic dissection. There is cardiomegaly. There are visualized mediastinal lymph nodes, which are within normal size limits, and with normal morphology. Normal hilar regions. Normal visualized trachea and bronchi. The lungs are well expanded. Small bilateral pleural effusions left greater than right with infiltration at both lung bases worse on the left side. Mild increased markings are also seen in the posterolateral aspect of the right upper lobe. Focal infiltrate and/or atelectasis also seen in the lingular segment of the left upper lobe. Normal chest wall structures. There are degenerative changes of thoracic spine. Normal visualized upper abdomen. CT/CTA Chest W/WO Contrast IMPRESSION: Bilateral pleural effusions left greater than right with the infiltrates at both lung bases more prominent on the left side. Atelectasis/infiltrate is seen in the lingular segment of the left upper lobe as well as the posterior aspect of the right upper lobe. No evidence of pulmonary embolism. Electronically Signed: Lewis Aguirre, at 9:35 EST Assessment/Plan 1. Acute on chronic systolic CHF The patient has acute on chronic systolic mediated CHF. At the moment she is being monitored. She is being treated medically which is included IV continuous infusion furosemide. She will need to continue medical therapy with adjustment of medications as she is able based upon her underlying cardiovascular condition. This may include agents such as nitrates, beta-blockers, diuretics, afterload reducing agents, etc. 2. Non-CAD related cardiomyopathy The patient has a non-CAD related cardiomyopathy. The etiology is unclear although there has been concern in the past it may have been related to her atrial dysrhythmia/tacky dysrhythmia. At the moment she will continue medical management. Based upon her diminishing LV systolic function/LVEF she will need to be reconsidered by electrophysiology for primary prevention ICD therapy. 3. CAD She has a history of CAD which is thought to be nonangiographically significant based upon her recent studies. She will continue risk factor evaluation care as able. 4. Atrial flutter She has undergone medical therapy for this. She has undergone multiple synchronized biphasic DC cardioversions. She has been evaluated by electrophysiology in the past at [facility]. At that point in time she declined further invasive evaluation. She may need to be evaluated once again by electrophysiology had a major tertiary/quaternary care center with a heart hospital team that could consider whether or not she is a candidate for any EPS/RFA of her atrial dysrhythmia versus potentially an AV node ablation with PPM/ICD backup/support. 5. Hypertension Her blood pressure will be followed with adjustment of medications as she tolerates. 6. COPD She has an underlying history of COPD. She will continue to follow with internal medicine and other physicians as needed. 7. Obstructive sleep apnea She has a history of CECILIA. Again she needs to follow with her other physicians for this and use appropriate supportive measures to assist with her not only pulmonary condition but her cardiac condition. 8. Morbid obesity Unfortunately she remains morbidly obese. This does make her case and care more challenging. Comment: The patient's case has been discussed and reviewed with the patient as well as Dr. Gutierres. This note was generated using a voice recognition system and there may be incorrect words, spelling or punctuation that were not noted when reviewing the office note prior to saving.
--- NOTE | 2020-05-02 13:54 | PCM.PROGNOTE ---
Patient Problems: Active and Suspected Problems (Last Reviewed 03/10/20 @ 10:53 by Yulisa Chou) Pneumonia (Acute) Severe sepsis (Acute) Congestive heart failure (Acute) Hypoxia (Acute) Subjective: Patient seen and examined. Denies significant improvement in breathing. Denies new symptoms or complaints. -7 lbs since admission. - Physical Exam Vitals/I&O's: Vital Signs Temp Pulse Resp BP Pulse Ox 97.3 F L 60 22 H 130/79 H 96 05/02/20 11:00 05/02/20 13:00 05/02/20 13:00 05/02/20 13:00 05/02/20 13:00 Oxygen Flow Rate (L/min) 10 Oxygen Delivery Method CPAP Weight: 361 lb 3.2 oz Body Mass Index (BMI) 62.4 Intake and Output for Last 24 Hours 04/30/20 05/01/20 05/02/20 23:59 23:59 23:59 Intake Total 1321.29 / 1321.29 888.96 / 888.96 Output Total 300 / 300 150 / 150 Balance 1021.29 / 1021.29 738.96 / 738.96 General: Alert, Oriented x3, Cooperative HEENT: Atraumatic, PERRLA, EOMI, Normocephalic Neck: Supple, No JVD, Negative Carotid Bruits Lungs: Clear to auscultation, Normal air movement Cardiovascular: Regular rate, No murmurs Abdomen: Bowel Sounds Present, Soft, Non Tender, Non-Distended, Obese Extremities: No clubbing, No cyanosis, Edema - Bilateral lower extremities Skin: No rashes, No breakdown Musculoskeletal: No Tenderness to Palpation of Joints or Extremities Neurological: Cranial nerves II-XII grossly intact, Neuro grossly intact Psych/Mental Status: Normal Affect, Appropriate Microbiology Past 72 Hours 05/01/20 07:55 Mucosa - Nose SARS-CoV-2 Antigen (Rapid) - Final 05/01/20 07:55 Mucosa - Nose Influenza Types A,B Direct FA ([facility]) - Final Laboratory Results 05/02/20 07:57: Sodium 141, Potassium 4.8, Chloride 108 H, Carbon Dioxide 30.0, Anion Gap 3 L, BUN 25 H, Creatinine 1.39 H, Estim Creat Clear Calc 31.59, Est GFR (MDRD) Af Amer 48 L, Est GFR (MDRD) Non-Af 40 L, BUN/Creatinine Ratio 18.0, Glucose 87, Calcium 8.6 Current Medications Acetaminophen (Acetaminophen 325 Mg Tablet) 650 mg PO Q6H PRN PRN PRN Reason: Pain Score 1-10/Temp > 100.7 F Apixaban (Apixaban 5 Mg Tablet) 5 mg PO BID [facility] Last Admin: 05/02/20 08:55 Dose: 5 mg Documented by: Digoxin (Digoxin 250 Mcg/Ml Ampul) 250 mcg IV X1 ONE Stop: 05/02/20 13:46 Furosemide 500 mg/ N/A 50 mls @ 1 mls/hr CONT INF .Q50H [facility] Last Admin: 05/01/20 15:41 Dose: 10 mg/hr, 1 mls/hr Documented by: Amiodarone HCl 360 mg/ (Dextrose) 200 mls @ 16.667 mls/hr CONT INF .Q12H [facility] Stop: 05/02/20 20:44 Last Infusion: 05/02/20 13:00 Dose: 0.5 mg/min, 16.7 mls/hr Documented by: Isosorbide Dinitrate (Isosorbide Dn 10 Mg Tablet) 10 mg PO TID [facility] Metoprolol Tartrate (Metoprolol Tartrate 100 Mg Tablet) 100 mg PO BID [facility] Ondansetron HCl (Ondansetron 4 Mg/2 Ml Vial) 4 mg IV Q8H PRN PRN PRN Reason: NAUSEA/VOMITING Pantoprazole Sodium (Pantoprazole Sodium 20 Mg Tablet) 20 mg PO DAILY [facility] Last Admin: 05/02/20 08:55 Dose: 20 mg Documented by: Sacubitril/Valsartan (Sacubitril/Valsartan 24/26 Mg Tablet) 1 each PO BID [facility] Sodium Chloride (0.9% Saline Lock 10 Ml Syringe) 10 - 40 ml IV UD PRN PRN Reason: SALINE FLUSH Last Admin: 05/01/20 19:47 Dose: 10 ml Documented by: Spironolactone (Spironolactone 25 Mg Tablet) 12.5 mg PO DAILY [facility] Medical Necessity - Tobacco Use Smoking Status: Former smoker Assessment/Plan All Active Problems (Last Reviewed 03/10/20 @ 10:53 by Yulisa Chou) Pneumonia (Acute) Severe sepsis (Acute) Congestive heart failure (Acute) Hypoxia (Acute) Cardiomyopathy (Acute) Abnormal stress test (Resolved) Acute kidney injury (Resolved) Acute respiratory failure (Resolved) Atrial flutter with rapid ventricular response (Resolved) Healthcare associated bacterial pneumonia (Resolved) Healthcare-associated pneumonia (Resolved) 1. Acute on chronic hypoxic respiratory insufficiency secondary to acute on chronic heart failure with reduced ejection fraction, bilateral pleural effusions-low suspicion for pneumonia. BNP 1200. Covid negative. No leukocytosis, afebrile. Continue IV Lasix drip. Strict I&O. Daily weight. Echocardiogram in 2018 demonstrated an EF of 31%. Repeat echo demonstrates an EF of 15%. Patient follows with Dr. Hernandez. Continue supplement oxygen to maintain O2 at above 90%. Cardiology consulted. Once optimized medically, cardiology recommends patient consider transfer to tertiary facility for EP evaluation given worsening non-CAD related cardiomyopathy. Medications adjusted per cardiology. Initiated on Entresto and isosorbide, digoxin IV x1. 2. Acute kidney injury on chronic kidney disease stage III-diuresis as noted above, trend BMP. Mildly improved. 3. Chronic atrial fibrillation with RVR-on IV amiodarone drip. Continue metoprolol. On Eliquis. 4. COPD with asthma-no exacerbation. As needed albuterol aerosol. 5. Hypertension-stable, continue lisinopril, metoprolol. 6. CECILIA-continue home Pap therapy. 7. Morbid obesity-diet and lifestyle modifications encouraged. DVT prophylaxis-Eliquis This patient was seen by [facility] under the supervision of Dr. Gutierres.
[2020-05-02] MEDS: Digoxin 250 MCG/ML Ampul IV (15:12)
[2020-05-02] MEDS: Isosorbide DN 10 MG Tablet PO ×2 (15:13→20:55)
[2020-05-02] MEDS: 0.9% Saline Lock 10 ML Syringe IV (15:13)
[2020-05-02] MEDS: Metoprolol Tartrate 100 MG Tablet PO (20:55)
[2020-05-02] MEDS: SACUBITRIL/VALSARTAN 24/26 MG TABLET 1 EACH PO (20:55)
[2020-05-03] VITALS (13 sets, daily range): BP systolic 91–122; BP diastolic 46–72; PULSE 65–123; RESP 18; TEMP 36.1–36.7; O2SAT 92–96
[2020-05-03] MEDS: Isosorbide DN 10 MG Tablet PO ×2 (04:55→13:27)
[2020-05-03 08:01] LABS: Anion Gap 5 (5-15); BUN 37 mg/dL (7-18); BUN/Creat Ratio 22.6 RATIO (10-20); Calcium,Total 8.5 mg/dL (8.5-10.1); Chloride 105 mmol/L (98-107); Creatinine, Serum 1.64 mg/dL (0.55-1.02); EST Glomerular Filtration Rate 33 mL/min (>60); Est Glom Filt Rate - Afr Amer 40 mL/min (>60); Estimated Creatinine Clearance 26.78 ml/min; Glucose 91 mg/dL (74-106); Sodium Level 142 mmol/L (136-145)
[2020-05-03] MEDS: Spironolactone 25 MG Tablet 12.5 MG PO (08:52)
[2020-05-03] MEDS: SACUBITRIL/VALSARTAN 24/26 MG TABLET 1 EACH PO (08:52)
[2020-05-03] MEDS: Metoprolol Tartrate 100 MG Tablet PO (08:52)
[2020-05-03] MEDS: Pantoprazole Sodium 20 MG Tablet PO (08:52)
[2020-05-03] MEDS: APIXABAN 5 MG TABLET PO (08:52)
--- NOTE | 2020-05-03 09:45 | PCM.PN.CARD ---
Subjectve: The patient is awake and alert. She has been temporarily without her CPAP/BiPAP device while she was eating breakfast. On her O2 nasal cannula supplement she was noted to be 88 to 89% O2 saturation. Objective: Vital Signs Temp Pulse Resp BP Pulse Ox 97.9 F 73 18 110/72 94 05/03/20 08:48 05/03/20 08:52 05/03/20 08:48 05/03/20 08:52 05/03/20 08:48 Oxygen Flow Rate (L/min) 6 Oxygen Delivery Method Nasal Cannula Weight: 360 lb 10.82 oz Body Mass Index (BMI) 62.4 Intake and Output for Last 24 Hours 05/01/20 05/02/20 05/03/20 23:59 23:59 23:59 Intake Total 1321.29 / 1321.29 1515.24 / 1755.24 480 / 480 Output Total 300 / 300 850 / 2050 1725 / 1725 Balance 1021.29 / 1021.29 665.24 / -294.76 -1245 / -1245 General: Awake, Alert, Oriented x 3, Cooperative, No Acute Distress, Obese HEENT: Atraumatic, Normocephalic, PERRL, EOMI, Sclera Non Icteric Neck: Supple, Good ROM, No JVD Lungs: Diminished Randall Bases Cardiovascular: Irregular Rhythm, Normal S1, Normal S2 Abdomen: Bowel Sounds Present, Soft, Obese Extremities: Trace RLE Edema, Trace LLE Edema Psych/Mental Status: Appropriate 05/03/20 06:45: Sodium 142, Potassium 4.0, Chloride 105, Carbon Dioxide 32.0, Anion Gap 5, BUN 37 H, Creatinine 1.64 H, Est GFR (MDRD) Af Amer 40 L, Est GFR (MDRD) Non-Af 33 L, BUN/Creatinine Ratio 22.6 H, Glucose 91, Calcium 8.5 Rhythm: Atrial flutter Medical Necessity - Tobacco Use Smoking Status: Former smoker Assessment/Plan 1. Acute on chronic systolic CHF The patient has acute on chronic systolic mediated CHF. At the moment she is being monitored. She is being treated medically which is included IV continuous infusion furosemide. She is also been placed on additional diuretic therapy with Aldactone/spironolactone. She is also had the addition of nitrates and afterload reducing agents with respect to Entresto. She was asked to be considered for transfer to a tertiary care center for input from advanced heart failure teams with respect to not only medical therapy but any other options available to her separate from evaluation by electrophysiology for her underlying atrial dysrhythmia. 2. Non-CAD related cardiomyopathy The patient has a non-CAD related cardiomyopathy. The etiology is unclear although there has been concern in the past it may have been related to her atrial dysrhythmia/tachydysrhythmia. At the moment she will continue medical management. Based upon her diminishing LV systolic function/LVEF she will need to be reconsidered by electrophysiology for primary prevention ICD therapy. 3. CAD She has a history of CAD which is thought to be non angiographically significant based upon her recent studies. She will continue risk factor evaluation care as able. 4. Atrial flutter She has undergone medical therapy for this. She has undergone multiple synchronized biphasic DC cardioversions. She has been evaluated by electrophysiology in the past at [facility]. At that point in time she declined further invasive evaluation. She may need to be evaluated once again by electrophysiology had a major tertiary/quaternary care center with a heart [facility] team that could consider whether or not she is a candidate for any EPS/RFA of her atrial dysrhythmia versus potentially an AV node ablation with PPM/ICD backup/support. 5. Hypertension Her blood pressure will be followed with adjustment of medications as she tolerates. 6. COPD She has an underlying history of COPD. She will continue to follow with internal medicine and other physicians as needed. 7. Obstructive sleep apnea She has a history of CECILIA. Again she needs to follow with her other physicians for this and use appropriate supportive measures to assist with her not only pulmonary condition but her cardiac condition. 8. Morbid obesity Unfortunately she remains morbidly obese. This does make her case and care more challenging. Comment: The patient's case has been discussed and reviewed with the patient as well as Dr. Gutierres. This note was generated using a voice recognition system and there may be incorrect words, spelling or punctuation that were not noted when reviewing the office note prior to saving.
[2020-05-03] MEDS: 0.9% Saline Lock 10 ML Syringe IV ×2 (10:56→15:11)
[2020-05-03] MEDS: Spironolactone 25 MG Tablet PO (10:56)
[2020-05-03] MEDS: Digoxin 250 MCG/ML Ampul 125 MCG IV (10:58)
--- NOTE | 2020-05-03 13:33 | DS.PCM_ITS ---
Discharge Date and Diagnosis - Problem List Patient Problems: Active and Suspected Problems (Last Reviewed 03/10/20 @ 10:53 by Yulisa Chou) Pneumonia (Acute) Severe sepsis (Acute) Congestive heart failure (Acute) Hypoxia (Acute) Date of Admission: 05/01/20 Date of Discharge: 05/03/20 - Primary Discharge Diagnosis Acute Problems: Active Problems (Last Reviewed 03/10/20 @ 10:53 by Yulisa Chou) 1. Acute on chronic hypoxic respiratory insufficiency secondary to acute on chronic heart failure with reduced ejection fraction, bilateral pleural effusions 2. Acute kidney injury on chronic kidney disease stage III 3. Chronic atrial fibrillation with RVR 4. COPD with asthma 5. Hypertension 6. CECILIA 7. Morbid obesity - Secondary Discharge Diagnosis Chronic Problems: Chronic Problems (Last Reviewed 03/10/20 @ 10:53 by Yulisa Chou) CAD (coronary artery disease) (Chronic) Cardiomyopathy (Chronic) Atrial flutter (Chronic) Longstanding persistent atrial fibrillation (Chronic) Chronic systolic (congestive) heart failure (Chronic) Essential hypertension (Chronic) COPD with asthma (Chronic) CECILIA (obstructive sleep apnea) (Chronic) Chronic obstructive pulmonary disease (Chronic) Morbid obesity (Chronic) GERD (gastroesophageal reflux disease) (Chronic) Hospital Course and Treatment Imaging Results: Diagnostic Data Chest CTA 05/01/20 08:40 IMPRESSION: Bilateral pleural effusions left greater than right with the infiltrates at both lung bases more prominent on the left side. Atelectasis/infiltrate is seen in the lingular segment of the left upper lobe as well as the posterior aspect of the right upper lobe. No evidence of pulmonary embolism. Electronically Signed: Lewis Aguirre, at 9:35 EST , Service support , Chest X-Ray 05/02/20 05:55 IMPRESSION: Poor inspiration with some bibasilar atelectasis Electronically Signed: Henok Rhodes MD at 7:12 EST Tel , Service support , Dr. Hernandez- Cardiology Operations: None Procedures: 2-D Echocardiogram Summary of Care Provided: The patient is a 70 year old F admitted 05/01/2020 due to shortness of breath. 1. Acute on chronic hypoxic respiratory insufficiency secondary to acute on chronic heart failure with reduced ejection fraction, bilateral pleural effusions-pneumonia ruled out. BNP 1200. Covid negative. No leukocytosis, afebrile. Continue IV Lasix drip. Strict I&O. Daily weight. Echocardiogram in 2018 demonstrated an EF of 31%. Repeat echo demonstrates an EF of 15%. Patient follows with Dr. Hernandez. Continue supplement oxygen to maintain O2 at above 90%. Cardiology consulted. Cardiology recommends transfer to tertiary facility for EP evaluation given worsening non-CAD related cardiomyopathy. Medications adjusted per cardiology. Initiated on Entresto, Aldactone, isosorbide, digoxin IV x2. Transfer to [facility] for further EP evaluation and advanced heart failure management. 2. Acute kidney injury on chronic kidney disease stage III-diuresis as noted above, trend BMP. 3. Chronic atrial fibrillation with RVR-amiodarone drip discontinued. Continue metoprolol. On Eliquis. 4. COPD with asthma-no exacerbation. As needed albuterol aerosol. 5. Hypertension-stable, on metoprolol, isosorbide, Entresto, Aldactone. 6. CECILIA-continue home Pap therapy. 7. Morbid obesity-diet and lifestyle modifications encouraged. General: Alert, Oriented x3, Cooperative HEENT: Atraumatic, PERRLA, EOMI, Normocephalic Neck: Supple, No JVD, Negative Carotid Bruits Lungs: Clear to auscultation, Normal air movement Cardiovascular: Regular rate, No murmurs Abdomen: Bowel Sounds Present, Soft, Non Tender, Non-Distended, Obese Extremities: No clubbing, No cyanosis, Edema - Bilateral lower extremities Skin: No rashes, No breakdown Musculoskeletal: No Tenderness to Palpation of Joints or Extremities Neurological: Cranial nerves II-XII grossly intact, Neuro grossly intact Psych/Mental Status: Normal Affect, Appropriate Patient seen and examined prior to discharge. Physical assessment as noted above. Patient is stable for discharge with follow up recommendations as noted above. This patient was seen by EMMA Bang under the supervision of Dr. Gutierres. Patient Problems: Active and Suspected Problems (Last Reviewed 03/10/20 @ 10:53 by Yulisa Chou) Pneumonia (Acute) Severe sepsis (Acute) Congestive heart failure (Acute) Hypoxia (Acute) - Physical Exam Vitals/I&O's: Vital Signs Temp Pulse Resp BP Pulse Ox 98.1 F 68 18 105/71 95 05/03/20 13:25 05/03/20 13:25 05/03/20 13:25 05/03/20 13:25 05/03/20 13:25 Oxygen Flow Rate (L/min) 10 Oxygen Delivery Method CPAP Weight: 360 lb 10.82 oz Body Mass Index (BMI) 62.4 Intake and Output for Last 24 Hours 05/01/20 05/02/20 05/03/20 23:59 23:59 23:59 Intake Total 1321.29 / 1321.29 1515.24 / 1755.24 720 / 720 Output Total 300 / 300 850 / 2050 2525 / 2525 Balance 1021.29 / 1021.29 665.24 / -294.76 -1805 / -1805 Microbiology Past 72 Hours 05/01/20 08:07 Blood Culture (Wb) - Right Hand Blood Culture - Preliminary No growth in 48 hours. 05/01/20 07:45 Blood Culture (Wb) - Anticubital Left Blood Culture - Preliminary No growth in 48 hours. 05/01/20 07:55 Mucosa - Nose SARS-CoV-2 Antigen (Rapid) - Final 05/01/20 07:55 Mucosa - Nose Influenza Types A,B Direct FA ([facility]) - Final Laboratory Results 05/03/20 06:45: Sodium 142, Potassium 4.0, Chloride 105, Carbon Dioxide 32.0, Anion Gap 5, BUN 37 H, Creatinine 1.64 H, Estim Creat Clear Calc 26.78, Est GFR (MDRD) Af Amer 40 L, Est GFR (MDRD) Non-Af 33 L, BUN/Creatinine Ratio 22.6 H, Glucose 91, Calcium 8.5 Current Medications Acetaminophen (Acetaminophen 325 Mg Tablet) 650 mg PO Q6H PRN PRN PRN Reason: Pain Score 1-10/Temp > 100.7 F Apixaban (Apixaban 5 Mg Tablet) 5 mg PO BID [facility] Last Admin: 05/03/20 08:52 Dose: 5 mg Documented by: Furosemide 500 mg/ N/A 50 mls @ 1 mls/hr CONT INF .Q50H [facility] Last Admin: 05/01/20 15:41 Dose: 10 mg/hr, 1 mls/hr Documented by: Isosorbide Dinitrate (Isosorbide Dn 10 Mg Tablet) 10 mg PO TID [facility] Last Admin: 05/03/20 13:27 Dose: 10 mg Documented by: Metoprolol Tartrate (Metoprolol Tartrate 100 Mg Tablet) 100 mg PO BID [facility] Last Admin: 05/03/20 08:52 Dose: 100 mg Documented by: Ondansetron HCl (Ondansetron 4 Mg/2 Ml Vial) 4 mg IV Q8H PRN PRN PRN Reason: NAUSEA/VOMITING Pantoprazole Sodium (Pantoprazole Sodium 20 Mg Tablet) 20 mg PO DAILY [facility] Last Admin: 05/03/20 08:52 Dose: 20 mg Documented by: Sacubitril/Valsartan (Sacubitril/Valsartan 24/26 Mg Tablet) 1 each PO BID [facility] Last Admin: 05/03/20 08:52 Dose: 1 each Documented by: Sodium Chloride (0.9% Saline Lock 10 Ml Syringe) 10 - 40 ml IV UD PRN PRN Reason: SALINE FLUSH Last Admin: 05/03/20 10:56 Dose: 10 ml Documented by: Spironolactone (Spironolactone 25 Mg Tablet) 25 mg PO DAILY [facility] Last Admin: 05/03/20 10:56 Dose: 12.5 mg Documented by: Home Medications: Medications to take at Discharge Acetaminophen [Tylenol Tablet] 650 mg PO Q6H PRN PRN tab 02/10/18 Calcium Carb/Vitamin D [Os-Jose 500MG + D] 1 tab PO DAILY tab 02/10/18 furosemide 40 mg tablet 40 mg PO DAILY 03/02/18 lisinopril 2.5 mg tablet 2.5 mg PO DAILY 04/16/18 omega-3 fatty acids 1,000 mg capsule 1,000 mg PO DAILY 07/19/18 apixaban 5 mg tablet 5 mg PO BID #60 tab 06/24/19 metoprolol tartrate 100 mg tablet 150 mg PO BID #240 tab 10/02/19 Primary Care Physician: Alfonzo Cha [Primary Care Provider] - Disposition: Acute care Hospital Minutes spent on discharge:: 35 Patient Condition:: Stable Medical Necessity - Tobacco Use Smoking Status: Former smoker Meaningful Use Info Meaningful Use Diagnoses (Choose all that apply): CHF - CHF TOÑA/ARB ordered at discharge?: Yes Documented LVEF (%): 15
[2020-05-03] MEDS: Furosemide 500 MG in Empty Viaflex 50 mL 1 EACH CONT INF (15:12)
== END 2020-05-03 17:33 | disposition short-term general hospital (02) | DRG 291 ==
LOC: ED 11:11 → PCU 12:38
PROVIDERS: Nurse Practitioner Family; Admitting Provider Internal Medicine; Emergency Provider Emergency Medicine; Visit Provider Internal Medicine
DX: I13.0 Hypertensive heart and chronic kidney disease with heart failure and stage 1 through stage 4 chronic kidney disease, or unspecified chronic kidney disease (principal); I50.23 Acute on chronic systolic (congestive) heart failure; J96.21 Acute and chronic respiratory failure with hypoxia; R65.20 Severe sepsis without septic shock; J44.0 Chronic obstructive pulmonary disease with (acute) lower respiratory infection; N17.9 Acute kidney failure, unspecified; I48.11 Longstanding persistent atrial fibrillation; I48.92 Unspecified atrial flutter; Z68.44 Body mass index [BMI] 60.0-69.9, adult; I42.9 Cardiomyopathy, unspecified; G47.33 Obstructive sleep apnea (adult) (pediatric); E66.01 Morbid (severe) obesity due to excess calories; N18.30 Chronic kidney disease, stage 3 unspecified; I25.10 Atherosclerotic heart disease of native coronary artery without angina pectoris; K21.9 Gastro-esophageal reflux disease without esophagitis; Z87.891 Personal history of nicotine dependence
CPT/HCPCS: 36415; 71045; 71275; 80048; 80053; 83605; 83880; 84484; 85025; 85379; 87040; 87426; 87635; 87804; 93005; 93306; 94002; 94003; 94640; 97162; 97802; 99285; J7040; Q9957; Q9967; A4216; C8929; J1940; J2405; U0002

== ENCOUNTER 2020-05-18 22:01 | Emergency (ER) | payer MEDICARE, MEDICAID, SELFPAY ==
[2020-05-01 14:09] VITALS: BMI 62.4
[2020-05-18 22:02] VITALS: BP 151/68; PULSE 63; RESP 16; TEMP 36.6; O2SAT 97; BMI 60.1
--- NOTE | 2020-05-18 22:16 | CT_ITS ---
STUDY: CT ABDOMEN AND PELVIS WITHOUT CONTRAST REASON FOR EXAM: Female, 70 years old. RIGHT FLANK PAIN, URINARY FREQ/DYSURIA, RECENT BUNDY DURING CARDIAC ABLATION, HX UTERINE CA WITH REMOVAL RADIATION DOSAGE (If Supplied By Facility): CTDIvol = ( 34.45 ) mGy, DLP = ( 2048.86 ) mGycm TECHNIQUE: Transaxial images were obtained from the dome of the diaphragm to the symphysis pubis without oral contrast, and without intravenous contrast. Sagittal and coronal images were reconstructed. Individualized dose optimization techniques were used for this CT. COMPARISON: 07/02/2016 FINDINGS: Left pleural effusion with basilar consolidation/atelectasis. The visualized portions of the heart are within normal limits. Normal liver. Normal gallbladder and extrahepatic biliary system. Normal spleen. Normal pancreas. Normal bilateral adrenal glands. Hydronephrosis of the right kidney and mild right hydroureter. No obstructive stones are noted. A passed stone cannot be excluded. Punctate stone in the left kidney. Normal visualized stomach. Normal small intestine. Normal colon. The appendix is not [id number]. Normal abdominal aorta. Normal inferior vena cava. Normal retroperitoneum. Normal urinary bladder. Normal abdominal wall. Degenerative vertebral changes. CT/Abdomen/Pelvis without Cont IMPRESSION: Hydronephrosis of the right kidney and mild right hydroureter. No obstructive stones are noted. A passed stone cannot be excluded. Punctate stone in the left kidney. Left pleural effusion with basilar consolidation/atelectasis. Electronically Signed: Shay Barnes DO at 23:20 EST Tel [phone], Service support ,
[2020-05-18 22:36] LABS: Absolute Lymphocyte Count 1.52 X10^3/uL (0.83-4.51); Absolute Neutrophil Count 3.2 X10^3/uL (2.0-7.7); Basophil# 0.01 X10^3/uL; Basophil% 0.2 % (0-1); Eosinophil# 0.27 X10^3/uL; Eosinophils% 4.7 % (0-5); Hematocrit 42.3 % (37-47); Hemoglobin 13.3 g/dL (12.0-15.0); Lymphocyte # 1.52 X10^3/ul (4.0); Lymphocyte % 26.7 % (19-41); Mean Corp Hgb Conc 31.4 g/dL (32-36); Mean Corpuscular Hgb 28.7 pg (27.0-32.0); Mean Corpuscular Volume 91.2 fL (81-99); Mean Platelet Vol. 9.7 fl (6.2-12.0); Monocyte% 12.3 % (0-10); NRBC Flagged by Analyzer 0 % (0-5); Neutrophil # 3.17 X10^3/uL (2.7-7.7); Neutrophil % 55.7 % (47-70); Platelet Count 169 K/mm3 (150-450); RBC Distribution Width CV 14.3 % (11.6-14.6); RBC Distribution Width SD 46.5 fl (35.1-43.9); Red Blood Count 4.64 M/mm3 (4.2-5.4); White Blood Count 5.7 K/mm3 (4.4-11.0)
[2020-05-18] MEDS: Ondansetron 4 MG/2 ML Vial IV (22:37)
[2020-05-18] MEDS: 0.9% Normal Saline 1,000 ML 1000 ML IV (22:37)
[2020-05-18] MEDS: Acetaminophen 500 MG Tablet 1000 MG PO (22:47)
[2020-05-18 22:58] LABS: AST(SGOT) 32 U/L (15-37); Alanine Aminotransfer ALT/SGPT 27 U/L (13-56); Alkaline Phosphatase 96 U/L (45-117); Anion Gap 6 (5-15); BUN 25 mg/dL (7-18); BUN/Creat Ratio 18.7 RATIO (10-20); Bilirubin, Direct < 0.05 mg/dL (0.00-0.30); Calcium,Total 8.9 mg/dL (8.5-10.1); Chloride 104 mmol/L (98-107); Creatinine, Serum 1.34 mg/dL (0.55-1.02); EST Glomerular Filtration Rate 41 mL/min (>60); Est Glom Filt Rate - Afr Amer 50 mL/min (>60); Estimated Creatinine Clearance 32.77 ml/min; Globulin 4.5 g/dL (2.2-4.2); Glucose 113 mg/dL (74-106); Lipase 154 U/L (73-393); Potassium 3.8 mmol/L (3.5-5.1); Protein, Total 7.5 g/dL (6.4-8.2); Sodium Level 139 mmol/L (136-145)
[2020-05-18 23:04] LABS: Bacteria 0 SEEN /hpf (None Seen); Mucous, Urine 0 SEEN /hpf (<or=2+); Squamous Epithelial Cells - UA 0 SEEN /hpf (5-10)
[2020-05-18 23:11] LABS: Color, Urine Yellow (Yellow); Glucose, Dipstick Normal (Normal); Ketone-Dipstick Negative (Negative); Leukocyte Esterase-Dipstick 25 /ul (Negative); Nitrite-Dipstick Negative (Negative); Occult Blood-Urine 250 /ul (Negative); Protein-Dipstick Negative (Negative); Urine Bilirubin Dipstick Negative (Negative); Urine Clarity Clear (Clear); Urine Urobilinogen Normal (Normal)
[2020-05-18 23:18] LABS: Hyaline Cast 0-5 SEEN /lpf (0-5); Red Blood Cells-Urine 5-10 SEEN /hpf (0-5)
[2020-05-18 23:19] LABS: White Blood Cells 0-5 SEEN /hpf (0-5)
--- NOTE | 2020-05-18 23:26 | ED.DCSUM_ITS ---
- ER Visit Summary Date of Service: 05/18/20 Chief Complaint: Right flank pain History of Present Illness: The patient is a [address] Cha and Dr. Hernandez. She reports that at 530 this evening she had the abrupt onset of right flank pain that radiates around to the right side of her abdomen. Pain was 10 out of 10 at worst and 5-10 currently. Nothing makes this better or worse. She is had nausea without vomiting. No diarrhea. Last bowel movements today. No melena or hematochezia. She has dysuria and frequency that began today. She denies any hematuria. Physical Examination: Vitals: Stable. Afebrile. General: Well-nourished and well-developed. Head: Normocephalic atraumatic. Neck: Supple, no lymphadenopathy. No JVD. Nontender. Cardiovascular: Regular rate and rhythm. No murmurs. Respiratory: No respiratory distress. Clear to auscultation bilaterally. Abdominal: Soft, mild epigastric tenderness to palpation, nondistended, normal bowel sounds. No guarding, rebound, or peritoneal signs. Back: Nontender. No CVA tenderness. Extremities: Nontender, no edema. Skin: Normal color, no rash. Neurologic: Alert and oriented ?3. Cranial nerves II through XII are intact. Normal strength and sensation. Psych: Normal affect. Test Results: CBC shows monocytes of 12. Chem-7 shows a glucose 113, BUN of 25, creatinine 1.34. LFTs show an albumin of 3.0 and globulin 4.5. Lipase is normal. UA has leukocytes, 5-10 red blood cells, no bacteria. Clinical Impression(s) from Imaging Studies Abdomen/Pelvis CT 05/18/20 22:16 IMPRESSION: Hydronephrosis of the right kidney and mild right hydroureter. No obstructive stones are noted. A passed stone cannot be excluded. Punctate stone in the left kidney. Left pleural effusion with basilar consolidation/atelectasis. Electronically Signed: Shay Barnes DO at 23:20 EST Tel [phone], Service support , Emergency Department Course and Treatment: Patient was written for a dose of morphine and Zofran IV. She refused a dose of morphine was given Tylenol p.o. and is resting more comfortably. Her complaints are consistent with a ureteral stone which she may have already passed. Treatment Plan: Patient will be discharged with Zofran, [place], and Colace. Instructed to follow-up with Dr. Saldaña in 1 week if not improving. Return to the emergency department for any worsening symptoms. Disposition: To home in improved and stable condition. Impression: 1. Right flank pain, acute. This note was generated with [employer] dictation software. It may contain incorrect words, spelling, and punctuation that were not noted in review of the chart prior to signing ED Disposition - Plan for ED Patient: Instructions: ED Kidney Stone, Passed Prescriptions: Docusate Sodium [Colace] 100 mg PO DAILY #20 capsule Hydrocodone Bitart/Apap 5-325 [[place] 5MG-325MG] 1 tablet PO Q4H PRN PRN 2 Days #10 tablet PRN Reason: Pain Ondansetron [Zofran Odt] 4 mg PO Q8H PRN PRN #10 tablet PRN Reason: Nausea Referrals: Max Saldaña MD [STAFF PHYSICIAN] - 1 Week if not improving
[2020-05-18 23:51] VITALS: BP 140/53; PULSE 52; RESP 18; O2SAT 95
== END 2020-05-18 23:53 | disposition home or self-care (01) ==
LOC: ED 22:21
PROVIDERS: Emergency Provider Emergency Medicine
DX: R10.9 Unspecified abdominal pain (principal); I10 Essential (primary) hypertension
CPT/HCPCS: 74176; 80048; 80076; 81001; 83690; 85025; 96361; 96374; 99285; A4216; J2405

== ENCOUNTER → 2020-09-01 12:44 | Outpatient (CLI) | payer MEDICARE, MEDICAID, SELFPAY ==
[2020-08-19 11:43] VITALS: BMI 60.2
--- NOTE | 2020-09-01 12:47 | ECHOCS_ITS ---
Reason For Study: DILATED CMP Procedure This was a 2D Doppler, Color Flow transthoracic echocardiogram. The study was technically difficult. Due to body habitus. Contrast injection was performed. Exam performed in department. Left Ventricle Based upon the 2D echocardiographic and contrast enhanced images obtained there appears to be grossly normal left ventricular size, wall motion, and systolic function. The estimated ejection fraction is 55 %. Diastolic function is indeterminate. Right Ventricle Normal RV size. Normal systolic function. Atria The left atrium is mildly enlarged. Normal right atrium. No doppler evidence for ASD. Mitral Valve There is mild mitral annular calcification. Extension of the mitral annular calcification onto the base of the posterior mitral valve leaflet. Trivial mitral valve insufficiency. Tricuspid Valve Normal tricuspid valve. Trivial tricuspid valve insufficiency. Unable to estimate RV systolic pressure/pulmonary artery pressure due to technically difficult study. Aortic Valve Trisinus/trileaflet aortic valve. Normal aortic valve. Pulmonic Valve The pulmonic valve is not well visualized. Great Vessels Normal sized aortic root. Pericardium/Pleural No pericardial effusion. Medication 22 gauge I.V. with prn adaptor inserted into left arm. Diluted definity 4.0ml given slow IV push to enhance endocardial definition. MMode/2D Measurements & Calculations LVIDd: 5.9 cm IVSd: 1.5 cm Ao root diam: 3.1 cm LVIDs: 4.6 cm LVPWd: 1.5 cm RVDd: 2.6 cm FS: 22.0 % LAV(MOD-bp): 69.4 ml LA A4 area: 21.1 cm2 LA dimension(2D): 5.6 cm LAV(MOD-bp) Indexed: 27.9 ml/m2 LAV(MOD-sp2): 67.9 ml LAV(MOD-sp4): 62.2 ml RA A4 area: 18.1 cm2 Time Measurements MV dec time: 0.34 sec Doppler Measurements & Calculations MV E max mario: 94.0 cm/sec Lat Peak E' Mario: 8.3 cm/sec Med Peak E' Mario: 4.3 cm/sec MV A max mario: 130.1 cm/sec E/E' lat: 11.3 E/E' med: 22.1 MV E/A: 0.72 Ao V2 max: 162.3 cm/sec LV V1 max: 107.4 cm/sec PA V2 max: 94.0 cm/sec Ao max P.5 mmHg LV V1 max P.6 mmHg ECHO/Echo Complete W/ Contrast Interpretation Summary The study was technically difficult. Contrast injection was performed. Based upon the 2D echocardiographic and contrast enhanced images obtained there appears to be grossly normal left ventricular size, wall motion, and systolic function. The estimated ejection fraction is 55 %. The left atrium is mildly enlarged. There is mild mitral annular calcification. Extension of the mitral annular calcification onto the base of the posterior mi tral valve leaflet. Trivial mitral valve insufficiency. Trivial tricuspid valve insufficiency. Unable to estimate RV systolic pressure/pulmonary artery pressure due to techni stephen difficult study. Diastolic function is indeterminate. Ordering Physician: Cornelio Hernandez Referring Physician: Alfonzo Cha Performed By: Laura Jonas SEVEN, RVT
== END ==
PROVIDERS: Referring Provider Internal Medicine Cardiovascular Disease; Visit Provider Internal Medicine Cardiovascular Disease
DX: I42.0 Dilated cardiomyopathy (principal)
CPT/HCPCS: 93306; Q9957; C8929

== ENCOUNTER 2020-09-02 08:14 | Emergency (ER) | payer MEDICARE, MEDICAID, SELFPAY ==
[2020-08-19 11:43] VITALS: BMI 60.2
[2020-09-02 08:14] VITALS: BP 155/87; PULSE 74; RESP 15; TEMP 36.3; O2SAT 95; BMI 58.3
--- NOTE | 2020-09-02 08:28 | VDLE_ITS ---
Reason For Study: RLE pain RIGHT GSV is normal from mid thigh to ankle. FV distal is compressible, spontaneous, phasic, competent and demonstrates normal augmentation. POP V is compressible, spontaneous, phasic, competent and demonstrates normal augmentation. PTV is compressible. RT PerV is compressible Technically difficult study due to obesity. Unable to assess veins from mid thigh to groin. Injury site is on lateral mid calf. Procedure This is a venous duplex using B-mode, color flow and spectral Doppler. Exam performed portable in ED. The study was technically difficult. Due to obesity. A preliminary report was called and/or faxed to Dr. Hope in ED. VL/Venous Duplex US, Unilateral Interpretation Summary Deep veins of the right lower extremity are patent and compressible segmentally . There is no evidence of right lower extremity deep vein thrombosis. Valvular competence rajani ears intact within the proximal deep venous system on the right . The right great saphenous vein a ppears patent and compressible segmentally. The right common femoral vein and proximal femoral ve in were not visualized due to the patient's obesity. The proximal portion of the right grea t saphenous vein in the upper thigh was not visualized due to the patient's obesity. Ordering Physician: Miles Villagomez Referring Physician: Alfonzo Cha Performed By: Laura Jonas, BRENNONCS, RVT
[2020-09-02 08:30] VITALS: BP 155/87; PULSE 74; RESP 16; TEMP 36.3; O2SAT 98
--- NOTE | 2020-09-02 08:30 | EDS_ITS ---
HPI History of Present Illness Chief Complaint: Lower Extremity Injury Informant: patient Onset/Context/Timing Onset: Days (10) Context: Gradual Onset Timing: Continuous Quality of Pain: Burning Location: Right lower leg Worsened by: Palpation Relieved by: Tylenol Associated Symptoms Associated Symptoms: Negative for Parasthesia and Weakness Narrative Narrative: Patient presents with pain and swelling to her right lower leg that has been getting worse over the past 10 days. Patient states she bumped her leg and developed an abrasion 10 days ago. Patient states that is been getting progressively worse. Patient states pain is worse with palpation. Patient states the pain improves with Tylenol. Patient denies any paresthesias or weakness. Patient denies any discharge or drainage. [facility] Medical History Acute kidney injury Acute respiratory failure Atrial flutter Atrial flutter with rapid ventricular response CAD (coronary artery disease) Cardiomyopathy Chronic obstructive pulmonary disease Chronic systolic (congestive) heart failure Congestive heart failure Essential hypertension GERD (gastroesophageal reflux disease) Healthcare associated bacterial pneumonia Healthcare-associated pneumonia Hypoxia Longstanding persistent atrial fibrillation Morbid obesity CECILIA (obstructive sleep apnea) Pneumonia Severe sepsis Home Medications acetaminophen 650 mg PO Q6H PRN PRN tab 02/10/18 [Rx Last Taken Unknown] calcium carbonate-vitamin D3 1 tab PO DAILY tab 02/10/18 [Rx Last Taken 04/30/20] omega-3 fatty acids 1,000 mg capsule 1,000 mg PO DAILY 07/19/18 [History Last Taken 04/30/20] amiodarone 200 mg tablet 200 mg PO DAILY 05/11/20 [History Last Taken Unknown] omeprazole 20 mg PO DAILY 05/18/20 [History Last Taken Unknown] fluticasone fur. 100 mcg-umeclid 62.5 mcg-vilant 25 mcg inhalat.powder 1 inh INHALATION DAILY #60 ea 06/04/20 [Rx Last Taken Unknown] docusate sodium 100 mg capsule 100 mg PO DAILY PRN cap 06/10/20 [History Last Taken Unknown] apixaban 5 mg tablet 5 mg PO BID #60 tab 07/06/20 [Rx Last Taken Unknown] sacubitril 24 mg-valsartan 26 mg tablet 1 tab PO BID #60 tablet 07/23/20 [Rx Last Taken Unknown] furosemide 40 mg tablet 40 mg PO DAILY tab 08/19/20 [History Last Taken Unknown] metoprolol succinate 25 mg tablet,extended release 24 hr 25 mg PO DAILY #90 tab 08/24/20 [Rx Last Taken Unknown] Allergy/AdvReac Type Severity Reaction Status Date / Time aspirin [ASA] AdvReac stomach Verified 09/02/20 08:16 burning and sick to stomach propoxyphene HCl AdvReac i get Verified 09/02/20 08:16 [From Darvon] dizzy and pass out event monitor pads Allergy Severe Blisters Uncoded 09/02/20 08:16 Family History Mother Heart disease Father Heart disease Surgical History History of appendectomy History of total hysterectomy Status post left heart catheterization (LHC) (~05/11/18) Social History Smoking Status: Former smoker how long ago did patient quit smokin, 1ppd second hand exposure: Yes alcohol intake: current alcohol intake frequency: holidays/special occasions only Alcohol type: beer substance use type: does not use caffeine: No ROS ROS ED Constitutional Constitutional ED: Denies chills or fever(s) Eyes Eyes: Denies blurry vision or change in vision ENT ENT ED: Denies rhinorrhea or sore throat Cardiovascular Cardiovascular: Denies chest pain or palpitations Respiratory/Chest Respiratory/Chest: Denies cough or dyspnea Gastrointestinal Gastrointestinal: Denies nausea or vomiting Genitourinary Genitourinary ED: Denies dysuria or hematuria Musculoskeletal Musculoskeletal: Denies back pain or neck pain Integumentary Denies abscess or rash Neurologic Neurologic: Denies headache(s) or weakness Allergic/Immunologic Allergic/Immunologic ED: Denies mouth swelling or urticaria EXAM Physical Exam Const Vital Signs: 09/02/20 08:14 09/02/20 08:30 Temperature 97.3 F L 97.3 F L Temperature Source Temporal Temporal Pulse Rate 74 74 Respiratory Rate 15 16 Blood Pressure 155/87 H 155/87 H Blood Pressure Mean 109 109 Pulse Ox 95 98 Oxygen Delivery Method Nasal Cannula Nasal Cannula Oxygen Flow Rate (L/min) 2 2 Positive well nourished, well developed and obese General Appearance ED: well developed Nutritional Appearance: obese HEENT normocephalic and atraumatic Extremity Extremity Narrative: There is tenderness and erythema over the anterior aspect of the right lower leg. There is some warmth noted. There is some fluctuance noted. There is no discharge or drainage. There is good range of motion. Sensation was intact to light touch bilaterally in the lower extremities. There is no tenderness over the thigh. Posterior tibial pulses are equal bilaterally. Neuro oriented x3, CN's II-XII intact bilaterally, moves all extremities and no sensory deficits noted Sensorium / Orientation: alert Motor Exam: strength 5/5 throughout Skin Skin Narrative: There is some erythema and warmth over the anterior aspect of the right lower leg. There is an area of fluctuance. There is no discharge or drainage. MDM MDM MDM Narrative Medical decision making narrative: Venous duplex of the right lower extremity was obtained. There is no evidence of DVT. There is a hematoma noted. Patient was advised of her findings. Patient was given a dose of Keflex here. Patient was given a prescription for Keflex. Patient was instructed to ice and elevate the right leg. Patient was instructed to follow-up with her primary care physician in 5 to 7 days. Patient understood and was agreeable with the plan. All questions were answered. Discharge Plan Triage Chief Complaint: Lower Extremity Injury Other Complaint: Upper Extremity Injury ED Provider: Miles Villagomez Dx/Rx/DC Orders Clinical Impression: Hematoma of right lower leg, Cellulitis of right anterior lower leg Instructions: ED Cellulitis, ED Contusion, Lower Extremity Prescriptions: No Action furosemide 40 mg tablet 40 mg PO DAILY RF: 0 omega-3 fatty acids [Fish Oil Concentrate] 1,000 mg capsule 1,000 mg PO DAILY RF: 0 [id number] 100-62.5-25 mcg blister with device 1 inh INHALATION DAILY Qty: 60 RF: 11 docusate sodium 100 mg capsule 100 mg PO DAILY PRN (Reason: Pain) RF: 0 acetaminophen 325 MG tablet 650 mg PO Q6H PRN PRN (Reason: Mild Pain (scale 0-3)/T>100.7) RF: 0 calcium carbonate-vitamin D3 1 TABLET tablet 1 tab PO DAILY RF: 0 omeprazole 20 MG tablet,disintegrat, delay rel 20 mg PO DAILY RF: 0 amiodarone 200 mg tablet 200 mg PO DAILY RF: 0 Eliquis 5 mg tablet 5 mg PO BID Qty: 60 RF: 12 Entresto 24-26 mg tablet 1 tab PO BID Qty: 60 RF: 11 metoprolol succinate 25 mg tablet extended release 24 hr 25 mg PO DAILY Qty: 90 RF: 3 Primary Care Provider: Alfonzo Cha Referrals: Alfonzo Cha [Primary Care Provider] - 5-7 Days Disposition Disposition: Home, self care
[2020-09-02] MEDS: Cephalexin 500 MG Capsule PO (08:33)
[2020-09-02 10:21] VITALS: RESP 16
== END 2020-09-02 10:22 | disposition home or self-care (01) ==
PROVIDERS: Emergency Provider Emergency Medicine
DX: S80.11XA Contusion of right lower leg, initial encounter (principal); L03.115 Cellulitis of right lower limb; I25.10 Atherosclerotic heart disease of native coronary artery without angina pectoris; E66.01 Morbid (severe) obesity due to excess calories; K21.9 Gastro-esophageal reflux disease without esophagitis; I11.0 Hypertensive heart disease with heart failure; I50.22 Chronic systolic (congestive) heart failure; I48.92 Unspecified atrial flutter; I42.9 Cardiomyopathy, unspecified; Z87.891 Personal history of nicotine dependence; Z79.899 Other long term (current) drug therapy; X58.XXXA Exposure to other specified factors, initial encounter
CPT/HCPCS: 93971; 99283

== ENCOUNTER 2020-09-10 09:03 | Emergency (ER) | payer MEDICARE, MEDICAID, SELFPAY ==
[2020-09-09 10:27] VITALS: BMI 58.6
[2020-09-10 09:03] VITALS: BP 166/76; PULSE 90; RESP 17; TEMP 36.4; O2SAT 96; BMI 58.3
[2020-09-10 09:05] VITALS: BP 166/76; PULSE 90; RESP 17; TEMP 36.4; O2SAT 96
--- NOTE | 2020-09-10 09:32 | EX.ED.DYSGE1 ---
HPI History of Present Illness Chief Complaint: Lower Extremity Injury Narrative Narrative: 70-year-old female patient with Dr. Cha who is on Eliquis for atrial fibrillation. She reports that 3 weeks ago she scraped her right leg on a laundry basket. She has had swelling in that area since that time. She was here 1 week ago and had a Doppler that was negative. She was placed on Keflex. She followed up with Dr. Worrell today and he told her that this needs to be drained. She reports that she has a burning pain that is 2 out of 10 when she touches it. She has no pain otherwise. She is using Tylenol for pain. Patient denies any constitutional symptoms. No fever, chills, nausea, or vomiting. [facility] Medical History Acute kidney injury Acute respiratory failure Atrial flutter Atrial flutter with rapid ventricular response CAD (coronary artery disease) Cardiomyopathy Chronic obstructive pulmonary disease Chronic systolic (congestive) heart failure Congestive heart failure Essential hypertension GERD (gastroesophageal reflux disease) Healthcare associated bacterial pneumonia Healthcare-associated pneumonia Hypoxia Longstanding persistent atrial fibrillation Morbid obesity CECILIA (obstructive sleep apnea) Pneumonia Severe sepsis Home Medications acetaminophen 650 mg PO Q6H PRN PRN tab 02/10/18 [Rx Last Taken Unknown] calcium carbonate-vitamin D3 1 tab PO DAILY tab 02/10/18 [Rx Last Taken 04/30/20] omega-3 fatty acids 1,000 mg capsule 1,000 mg PO DAILY 07/19/18 [History Last Taken 04/30/20] omeprazole 20 mg PO DAILY 05/18/20 [History Last Taken Unknown] fluticasone fur. 100 mcg-umeclid 62.5 mcg-vilant 25 mcg inhalat.powder 1 inh INHALATION DAILY #60 ea 06/04/20 [Rx Last Taken Unknown] docusate sodium 100 mg capsule 100 mg PO DAILY PRN cap 06/10/20 [History Last Taken Unknown] apixaban 5 mg tablet 5 mg PO BID #60 tab 07/06/20 [Rx Last Taken Unknown] sacubitril 24 mg-valsartan 26 mg tablet 1 tab PO BID #60 tablet 07/23/20 [Rx Last Taken Unknown] furosemide 40 mg tablet 40 mg PO DAILY tab 08/19/20 [History Last Taken Unknown] metoprolol succinate 25 mg tablet,extended release 24 hr 25 mg PO DAILY #90 tab 08/24/20 [Rx Last Taken Unknown] amiodarone 200 mg tablet 100 mg PO DAILY tab 09/02/20 [History Last Taken Unknown] cephalexin 500 mg PO Q6 #40 capsule 09/02/20 [Rx Last Taken Unknown] mupirocin 1 applic TOPICAL TID #1 tube 09/10/20 [Rx Last Taken Unknown] Allergy/AdvReac Type Severity Reaction Status Date / Time aspirin [ASA] AdvReac stomach Verified 09/10/20 09:05 burning and sick to stomach propoxyphene HCl AdvReac i get Verified 09/10/20 09:05 [From Darvon] dizzy and pass out event monitor pads Allergy Severe Blisters Uncoded 09/10/20 09:05 Family History Mother Heart disease Father Heart disease Surgical History History of appendectomy History of total hysterectomy Status post left heart catheterization (LHC) (~05/11/18) Social History Smoking Status: Former smoker how long ago did patient quit smokin, 1ppd second hand exposure: Yes alcohol intake: current alcohol intake frequency: holidays/special occasions only Alcohol type: beer substance use type: does not use caffeine: No ROS ROS ED Constitutional Constitutional ED: Denies chills, fever(s) or sweats Eyes Eyes: Denies change in vision ENT ENT ED: Denies sore throat Cardiovascular Cardiovascular: Denies chest pain Respiratory/Chest Respiratory/Chest: Denies cough, dyspnea or dyspnea on exertion Gastrointestinal Gastrointestinal: Denies abdominal pain, diarrhea, melena, nausea or vomiting Genitourinary Genitourinary ED: Denies dysuria or urinary frequency Musculoskeletal Musculoskeletal: Denies myalgias Integumentary Reports rash Neurologic Neurologic: Denies headache(s), paresthesias or weakness EXAM Physical Exam Const Vital Signs: 09/10/20 09:03 09/10/20 09:05 Temperature 97.6 F L 97.6 F L Temperature Source Temporal Temporal Pulse Rate 90 90 Respiratory Rate 17 17 Blood Pressure 166/76 H 166/76 H Blood Pressure Mean 106 106 Pulse Ox 96 96 Oxygen Delivery Method Nasal Cannula Nasal Cannula Oxygen Flow Rate (L/min) 2 2 Positive well nourished and well developed General Appearance ED: well developed HEENT Reports normocephalic and head/scalp atraumatic Eyes PERRL Neck no lymphadenopathy, supple and no JVD General: Negative for tenderness Resp normal respiratory effort and clear to auscultation bilaterally Cardio regular rate, regular rhythm and no murmurs GI normal to inspection, nondistended, normoactive bowel sounds and non-tender GI Narrative: No guarding, rebound, or peritoneal signs. Palpation: soft Back/Spine Back/Spine Narrative: Nontender. Extremity Extremity Narrative: 2+ pedal edema lower extremities bilaterally. The lateral surface of the mid right leg there is an approximately 3 cm hematoma. Minimal surrounding erythema. No induration or appreciable fluctuance. General Extremety ED: Yes edema; Negative for tenderness General Extremity: edema Neuro oriented x3, CN's II-XII intact bilaterally and no sensory deficits noted Sensorium / Orientation: alert Motor Exam: strength 5/5 throughout Psych mental status grossly normal Skin no rashes or lesions noted MDM [facility] Treatment and Re-Evaluation Comments:: Emergency department course: I had a prolonged discussion the patient that I suspect this is actually a hematoma and not an abscess. However, given the fact that has been here for 3 weeks we discussed the possibility of opening it to make sure that there is no purulence. Patient did agree to this. An approximately 1 cm incision was made. What is present is old, dark blood. There is no purulent drainage. Treatment plan: Patient had Xeroform gauze placed as well as an ABD and it was loosely wrapped with an Arthur wrap. She will be discharged with Bactroban ointment and instructed to follow-up with the wound clinic within 1 week for another exam. Return to the emergency department for any worsening symptoms. Disposition: To home in improved and stable condition. Procedure Note: Abscess was cleansed with chlorhexidine soap. Anesthetized with 1% lidocaine with epinephrine. A 1 cm incision was made with a 10 scalpel blade. A small amount of old, dark blood was drained. No purulent drainage was present. The patient tolerated it well. This note was generated with [employer] software. It may contain incorrect words, spelling, and punctuation that were not noted in review of the chart prior to signing. Discharge Plan Triage Chief Complaint: Lower Extremity Injury ED Provider: Edward Jeffers Dx/Rx/DC Orders Clinical Impression: Hematoma of right lower leg Instructions: ED Hematoma, ED Wound Care Prescriptions: New mupirocin [mupirocin] 1 APPLIC ointment 1 applic topical TID Qty: 1 RF: 0 No Action furosemide 40 mg tablet 40 mg PO DAILY RF: 0 omega-3 fatty acids [Fish Oil Concentrate] 1,000 mg capsule 1,000 mg PO DAILY RF: 0 [id number] 100-62.5-25 mcg blister with device 1 inh INHALATION DAILY Qty: 60 RF: 11 docusate sodium 100 mg capsule 100 mg PO DAILY PRN (Reason: Pain) RF: 0 acetaminophen 325 MG tablet 650 mg PO Q6H PRN PRN (Reason: Mild Pain (scale 0-3)/T>100.7) RF: 0 calcium carbonate-vitamin D3 1 TABLET tablet 1 tab PO DAILY RF: 0 omeprazole 20 MG tablet,disintegrat, delay rel 20 mg PO DAILY RF: 0 cephalexin [cephalexin] 500 MG capsule 500 mg PO Q6 Qty: 40 RF: 0 Eliquis 5 mg tablet 5 mg PO BID Qty: 60 RF: 12 Entresto 24-26 mg tablet 1 tab PO BID Qty: 60 RF: 11 metoprolol succinate 25 mg tablet extended release 24 hr 25 mg PO DAILY Qty: 90 RF: 3 amiodarone 200 mg tablet 100 mg PO DAILY RF: 0 Primary Care Provider: Alfonzo Cha Referrals: Alfonzo Cha [Primary Care Provider] - Activity Restrictions/Additional Instructions: Follow-up with the wound clinic in 3 to 5 days for another exam. Disposition Disposition: Home, self care Discharge Date/Time: 09/10/20 10:21
[2020-09-10] MEDS: Lidocaine 1% /Epi 1:100 (20ml) 20 ML Vial INFILT (10:15)
== END 2020-09-10 10:21 | disposition home or self-care (01) ==
LOC: ED 09:42
PROVIDERS: Emergency Provider Emergency Medicine
DX: S80.11XA Contusion of right lower leg, initial encounter (principal); I25.10 Atherosclerotic heart disease of native coronary artery without angina pectoris; E66.01 Morbid (severe) obesity due to excess calories; X58.XXXA Exposure to other specified factors, initial encounter; Z87.891 Personal history of nicotine dependence
CPT/HCPCS: 10060; 99282

== ENCOUNTER 2021-08-12 08:50 | Emergency (ER) | payer MEDICARE, MEDICAID, SELFPAY ==
[2021-08-12 08:50] VITALS: BP 155/67; PULSE 98; RESP 20; TEMP 36.8; O2SAT 92; BMI 62.6
[2021-08-12 08:55] VITALS: BP 108/90; PULSE 105; RESP 19; TEMP 36.9; O2SAT 94
--- NOTE | 2021-08-12 09:09 | EKG12_ITS ---
Test Reason : SOB Blood Pressure : / mmHG Vent. Rate : 088 BPM Atrial Rate : 088 BPM P-R Int : 216 ms QRS Dur : 176 ms QT Int : 444 ms P-R-T Axes : 083 -82 044 degrees QTc Int : 537 ms Sinus rhythm with 1st degree A-V block Right bundle branch block Left anterior fascicular block Bifascicular block Abnormal ECG Confirmed by CY WALKER, LEE ([id number]), clinical editor CANELO POLLACK ([id number]) on 08/13/2021 10:28:09 AM Referred By: CESILIA Confirmed By:LEE BENOIT MD
--- NOTE | 2021-08-12 09:09 | RAD_ITS ---
STUDY: X-RAY CHEST REASON FOR EXAM: Female, 71 years old. Shortness of breath. TECHNIQUE: Single AP portable view of the chest. COMPARISON: Comparison is made with prior study dated 05/02/2020. FINDINGS: EKG electrodes are seen. Hyperinflation. Patchy infiltrate in the posterior segment of the right lower lobe. There is no demonstrated pleural abnormality. There is borderline cardiomegaly. Normal mediastinum and angi. Normal visualized pulmonary arteries. Normal visualized aortic arch and descending thoracic aorta. There are degenerative changes of the visualized thoracic spine. Normal visualized ribs, clavicles, and shoulders. There is no demonstrated abnormality of the visualized soft tissue structures of the upper abdomen. RAD/Chest 1 View (Portable) IMPRESSION: Patchy infiltrate in the posterior medial segment of the right lower lobe. Electronically Signed: Lewis Aguirre MD at 10:01 EDT ,
--- NOTE | 2021-08-12 09:11 | EDS_ITS ---
HPI History of Present Illness Chief Complaint: Shortness of Breath Informant: patient Onset/Context/Timing Onset: Days Context: Gradual Onset Current Severity: Mild Maximum Severity: Moderate Narrative Narrative: Patient presents secondary to cough and congestion with shortness of breath. She reports getting a viral head cold a week ago after watching her grandchildren. They had similar symptoms. She was seen by pulmonary last . At that time her sputum was still clear-colored. They did not feel antibiotics is needed at that time, however did give her return instructions if she develops worsening symptoms or sputum changes color. She states sputum is now yellow in color and she had more shortness of breath. She denies chest pain. No fever or chills. [facility] Medical History Atrial flutter Atrial flutter with rapid ventricular response CAD (coronary artery disease) Cardiomyopathy Chronic obstructive pulmonary disease Chronic systolic (congestive) heart failure Essential hypertension GERD (gastroesophageal reflux disease) Hypoxia Longstanding persistent atrial fibrillation Morbid obesity CECILIA (obstructive sleep apnea) Home Medications acetaminophen 650 mg PO Q6H PRN PRN tab 02/10/18 [Rx Last Taken Unknown] calcium carbonate-vitamin D3 1 tab PO DAILY tab 02/10/18 [Rx Last Taken 04/30/20] omega-3 fatty acids 1,000 mg capsule 1,000 mg PO DAILY 07/19/18 [History Last Taken 04/30/20] omeprazole 20 mg PO DAILY 05/18/20 [History Last Taken Unknown] furosemide 40 mg tablet 40 mg PO DAILY tab 08/19/20 [History Last Taken Unkn own] apixaban 5 mg tablet 5 mg PO BID #60 tab 06/03/21 [Rx Last Taken Unknown] metoprolol succinate 25 mg tablet,extended release 24 hr 25 mg PO DAILY #30 tab 06/03/21 [Rx Last Taken Unknown] sacubitril 24 mg-valsartan 26 mg tablet 1 tab PO BID #60 tablet 06/03/21 [Rx Last Taken Unknown] fluticasone fur. 100 mcg-umeclid 62.5 mcg-vilant 25 mcg inhalat.powder 1 inh INHALATION DAILY #60 ea 08/05/21 [Rx Last Taken Unknown] doxycycline monohydrate 100 mg PO BID #20 cap 08/12/21 [Rx Last Taken Unknown] guaifenesin [Mucinex] 1,200 mg PO BID #10 tab 08/12/21 [Rx Last Taken Unknown] prednisone 60 mg PO DAILY #12 tab 08/12/21 [Rx Last Taken Unknown] Allergy/AdvReac Type Severity Reaction Status Date / Time aspirin [ASA] AdvReac stomach Verified 08/05/21 09:58 burning and sick to stomach propoxyphene HCl AdvReac i get Verified 08/05/21 09:58 [From Darvon] dizzy and pass out event monitor pads Allergy Severe Blisters Uncoded 08/05/21 09:58 Family History Mother Heart disease Father Heart disease Surgical History History of appendectomy History of total hysterectomy Status post left heart catheterization (LHC) (~05/11/18) Social History Smoking Status: Former smoker how long ago did patient quit smokin, 1ppd second hand exposure: Yes alcohol intake: current alcohol intake frequency: holidays/special occasions only Alcohol type: beer substance use type: does not use caffeine: No ROS ROS ED Constitutional Constitutional ED: Denies chills or fever(s) Eyes Eyes: Denies change in vision ENT ENT ED: Denies sore throat Cardiovascular Cardiovascular: Denies chest pain or palpitations Respiratory/Chest Respiratory/Chest: Reports cough, dyspnea and sputum Gastrointestinal Gastrointestinal: Denies abdominal pain, nausea or vomiting Genitourinary Genitourinary ED: Denies dysuria Musculoskeletal Musculoskeletal: Denies back pain or neck pain Integumentary Denies rash Neurologic Neurologic: Denies headache(s) or weakness Allergic/Immunologic Allergic/Immunologic ED: Denies urticaria EXAM Physical Exam Const Vital Signs: 08/12/21 08:50 08/12/21 08:55 08/12/21 09:16 Temperature 98.2 F 98.4 F Temperature Source Temporal Temporal Pulse Rate 98 105 H 84 Respiratory Rate 20 H 19 H 20 H Respiratory Effort Respiratory Pattern Blood Pressure 155/67 H 108/90 H Blood Pressure Mean 96 96 Pulse Ox 92 94 95 Oxygen Delivery Method Nasal Cannula Nasal Cannula Nasal Cannula Oxygen Flow Rate (L/min) 2 2 2 04/28/22 09:19 08/12/21 10:09 08/12/21 10:26 Temperature 98.7 F Temperature Source Oral Pulse Rate 74 76 Respiratory Rate 18 20 H Respiratory Effort Normal Non-Labored Respiratory Pattern Normal Blood Pressure 144/60 H Blood Pressure Mean 88 Pulse Ox 94 Oxygen Delivery Method Nasal Cannula Nasal Cannula Oxygen Flow Rate (L/min) 2 2 Positive well nourished and well developed General Appearance ED: well developed HEENT Reports moist mucous membranes Eyes PERRL and EOMs intact bilaterally Neck supple Chest Wall inspection of chest normal and palpation of chest normal Resp normal respiratory effort Auscultation: diminished lung sounds Cardio regular rate and regular rhythm GI non-tender Palpation: soft Extremity normal to inspection Neuro oriented x3 Sensorium / Orientation: alert Psych mental status grossly normal Skin no rashes or lesions noted MDM MDM MDM Narrative Medical decision making narrative: Patient given aerosols and Solu-Medrol. Lab work and chest x-ray ordered. Lab Data Attestation: I reviewed the patient's lab results. Labs: Laboratory Results - last 24 hr 08/12/21 08/12/21 09:15 09:15 WBC 5.4 RBC 4.69 Hgb 13.1 Hct 41.8 MCV 89.1 MCH 27.9 MCHC 31.3 L RDW Std Deviation 46.2 H RDW Coeff of Liam 14.4 Plt Count 166 MPV 9.2 Immature Gran % (Auto) 0.200 Neut % (Auto) 74.6 H Lymph % (Auto) 17.2 L Reagan % (Auto) 6.9 Eos % (Auto) 1.1 Baso % (Auto) 0.0 Absolute Neuts (auto) 4.0 Absolute Lymphs (auto) 0.92 Nucleated RBC % 0 Sodium 142 Potassium 3.8 Chloride 108 H Carbon Dioxide 30.0 Anion Gap 4 L BUN 17 Creatinine 1.18 H Estim Creat Clear Calc 36.67 Est GFR (MDRD) Af Amer 58 L Est GFR (MDRD) Non-Af 48 L BUN/Creatinine Ratio 14.4 Glucose 119 H Calcium 8.9 Radiography Chest X-Ray - ED: 1 View, Read by ED Physician, Chronic Changes and Right Infiltrate Diagnostic Testing: Clinical Impression(s) from Imaging Studies Chest X-Ray 08/12/21 09:09 IMPRESSION: Patchy infiltrate in the posterior medial segment of the right lower lobe. Electronically Signed: Lewis Aguirre MD at 10:01 EDT , EKG Initial EKG: Attestation: I personally reviewed and interpreted this EKG as follows: Interpretation: Sinus Rhythm (Sinus 88 with bifascicular block. Similar in appearance to prior study. No acute ischemia.) Treatment and Re-Evaluation Narrative: After initial DuoNeb treatment patient states she felt better but now had wheezing on expiration throughout. Additional albuterol treatments given. Following this patient was coughing up quite a bit of sputum. She is given a dose of Mucinex. Lab work reveals normal white count. Chemistry studies unremarkable. X-ray does appear to show right medial infiltrate. She will be treated with a course of doxycycline. Return instructions provided. Discharge Plan Triage Chief Complaint: Shortness of Breath ED Provider: Catalina Hope Dx/Rx/DC Orders Clinical Impression: COPD exacerbation, Pneumonia Instructions: ED COPD Flare, ED Pneumonia (Adult) Prescriptions: New doxycycline monohydrate 100 MG capsule 100 mg PO BID Qty: 20 RF: 0 prednisone 20 mg tablet 60 mg PO DAILY Qty: 12 RF: 0 Mucinex 1,200 mg tablet extended release 12hr 1,200 mg PO BID Qty: 10 RF: 0 No Action furosemide 40 mg tablet 40 mg PO DAILY RF: 0 omega-3 fatty acids [Fish Oil Concentrate] 1,000 mg capsule 1,000 mg PO DAILY RF: 0 Eliquis 5 mg tablet 5 mg PO BID Qty: 60 RF: 12 metoprolol succinate 25 mg tablet extended release 24 hr 25 mg PO DAILY Qty: 30 RF: 12 Entresto 24-26 mg tablet 1 tab PO BID Qty: 60 RF: 11 zjhgqgctchm-zsrwwmhtv-dyzujasd 100-62.5-25 mcg blister with device 1 inh INHALATION DAILY Qty: 60 RF: 11 acetaminophen 325 MG tablet 650 mg PO Q6H PRN PRN (Reason: Mild Pain (scale 0-3)/T>100.7) RF: 0 calcium carbonate-vitamin D3 1 TABLET tablet 1 tab PO DAILY RF: 0 omeprazole 20 MG tablet,disintegrat, delay rel 20 mg PO DAILY RF: 0 Primary Care Provider: Alfonzo Cha Referrals: Marshall Newman MD [STAFF PHYSICIAN] - 1 Week if not improving Alfonzo Cha [Primary Care Provider] - Disposition Disposition: Home, Self Care
[2021-08-12] MEDS: Ipratropium/Albuterol Sulfate 3 ML AMPUL.NEB INHALATION (09:15)
[2021-08-12 09:16] VITALS: PULSE 84; RESP 20; O2SAT 95
[2021-08-12] MEDS: MethylPREDNISolone 125 MG/2 ML Vial IV (09:23)
[2021-08-12 09:26] LABS: Absolute Lymphocyte Count 0.92 X10^3/uL (0.83-4.51); Eosinophil# 0.06 X10^3/uL; Eosinophils% 1.1 % (0-5); Hematocrit 41.8 % (37-47); Hemoglobin 13.1 g/dL (12.0-15.0); Lymphocyte # 0.92 X10^3/ul (0.83-4.51); Lymphocyte % 17.2 % (19-41); Mean Corp Hgb Conc 31.3 g/dL (32-36); Mean Corpuscular Hgb 27.9 pg (27.0-32.0); Mean Corpuscular Volume 89.1 fL (81-99); Mean Platelet Vol. 9.2 fl (6.2-12.0); Monocyte# 0.37 X10^3/uL; Monocyte% 6.9 % (0-10); NRBC Flagged by Analyzer 0 % (0-5); Neutrophil % 74.6 % (47-70); Platelet Count 166 K/mm3 (150-450); RBC Distribution Width CV 14.4 % (11.6-14.6); RBC Distribution Width SD 46.2 fl (35.1-43.9); Red Blood Count 4.69 M/mm3 (4.2-5.4); White Blood Count 5.4 K/mm3 (4.4-11.0)
[2021-08-12 09:37] LABS: Anion Gap 4 (5-15); BUN 17 mg/dL (7-18); BUN/Creat Ratio 14.4 RATIO (10-20); Calcium,Total 8.9 mg/dL (8.5-10.1); Chloride 108 mmol/L (98-107); Creatinine, Serum 1.18 mg/dL (0.55-1.02); EST Glomerular Filtration Rate 48 mL/min (>60); Est Glom Filt Rate - Afr Amer 58 mL/min (>60); Estimated Creatinine Clearance 36.67 ml/min; Glucose 119 mg/dL (74-106); Potassium 3.8 mmol/L (3.5-5.1); Sodium Level 142 mmol/L (136-145)
[2021-08-12 10:09] VITALS: BP 144/60; PULSE 74; RESP 18; TEMP 37.1; O2SAT 94
[2021-08-12] MEDS: Albuterol 2.5 MG/3 ML VIAL.NEB. INHALATION ×2 (10:25→10:38)
[2021-08-12 10:26] VITALS: PULSE 76; RESP 20
[2021-08-12] MEDS: Doxycycline 100 MG CAPSULE PO (10:50)
[2021-08-12] MEDS: guaiFENesin 1,200 MG Tablet 1200 MG PO (10:50)
[2021-08-12 11:57] VITALS: BP 139/77; PULSE 86; RESP 19; O2SAT 96
== END 2021-08-12 11:59 | disposition home or self-care (01) ==
PROVIDERS: Emergency Provider Emergency Medicine; Visit Provider Emergency Medicine
DX: J44.1 Chronic obstructive pulmonary disease with (acute) exacerbation (principal); I11.0 Hypertensive heart disease with heart failure; I42.9 Cardiomyopathy, unspecified; I50.22 Chronic systolic (congestive) heart failure; I48.19 Other persistent atrial fibrillation; J18.9 Pneumonia, unspecified organism; I25.10 Atherosclerotic heart disease of native coronary artery without angina pectoris; G47.33 Obstructive sleep apnea (adult) (pediatric); Z79.01 Long term (current) use of anticoagulants; Z79.899 Other long term (current) drug therapy; Z87.891 Personal history of nicotine dependence
CPT/HCPCS: 71045; 80048; 85025; 93005; 94640; 96374; 99251; 99285; A4216; G0463

== ENCOUNTER 2022-04-26 01:05 | Emergency (ER) | payer MEDICARE, MEDICAID, SELFPAY ==
[2022-04-26 01:07] VITALS: BP 109/81; PULSE 185; RESP 27; TEMP 36.7; O2SAT 94; BMI 61.7
[2022-04-26 01:13] VITALS: O2SAT 94
--- NOTE | 2022-04-26 01:18 | RAD_ITS ---
STUDY: X-RAY CHEST REASON FOR EXAM: Female, 72 years old patient with chest pain. TECHNIQUE: Single AP portable view of the chest. COMPARISON: August 12, 2021. FINDINGS: Cardiac monitoring leads are present. The lungs are hyperexpanded with mild prominence of bronchovascular markings. There is right basilar subsegmental atelectasis. There is mild eventration of the right hemidiaphragm. There is no demonstrated pleural abnormality. There is mild cardiac enlargement. Normal mediastinum and angi. There is prominence of the pulmonary hilar arteries with peripheral pulmonary vascular congestion. There is atherosclerotic calcification of the aortic arch with tortuosity. There is demineralization of the osseous structures. Normal visualized ribs, clavicles, and shoulders. There is no demonstrated abnormality of the visualized soft tissue structures of the upper abdomen. RAD/Chest 1 View (Portable) IMPRESSION: Cardiomegaly and mild pulmonary congestion. Electronically Signed: Deb Arango MD at 2:10 EST ,
--- NOTE | 2022-04-26 01:18 | EKG12_ITS ---
Test Reason : CP Blood Pressure : / mmHG Vent. Rate : 183 BPM Atrial Rate : 182 BPM P-R Int : 000 ms QRS Dur : 130 ms QT Int : 270 ms P-R-T Axes : 000 269 093 degrees QTc Int : 471 ms Wide QRS tachycardia Non-specific intra-ventricular conduction block Inferior infarct , age undetermined , cannot be excluded Anterolateral infarct , age undetermined , cannot be excluded Abnormal ECG Confirmed by CY WALKER, LEE ([id number]), restaurant expeditor CANELO POLLACK ([id number]) on 04/27/2022 10:46:17 AM Referred By: ANIVAL Confirmed By:LEE BENOIT MD
--- NOTE | 2022-04-26 01:22 | ED.VIS.CHEST ---
HPI History of Present Illness Chief Complaint: Chest Pain Informant: patient and EMS Onset/Context/Timing Onset: Hours (1.5-2) Activity at onset: sudden, activity on onset and sleep Timing: Continuous Quality: Positive for Dull Location: Substernal Current Severity: Mild Maximum Severity: Mild Worsened By: Nothing; Not Worsened By Breathing Relieved By: Nothing Associated Symptoms: Positive for Dyspnea (mild) and Palpitations; Negative for Nausea, Vomiting, Diaphoresis, Cough, Fever or Lightheadedness Narrative Narrative: 72-year-old female woke up with chest discomfort and mild racing heartbeat-sensation, she said it felt a little short of breath but that was not a prominent symptom. Still feels that way now. Prehospital EKG showed a wide-complex tachycardia at a rate of about 180 similar to what she is on the monitor upon arrival here. She denies any recent illness. She has noted some swelling in her legs recently. She has a history of a cardiomyopathy as well as atrial fibrillation, saying that she has had a cardioversion for it in the past. [facility] Medical History Atrial flutter Atrial flutter with rapid ventricular response CAD (coronary artery disease) Cardiomyopathy Chronic obstructive pulmonary disease Chronic systolic (congestive) heart failure Essential hypertension GERD (gastroesophageal reflux disease) Hypoxia Longstanding persistent atrial fibrillation Morbid obesity CECILIA (obstructive sleep apnea) Home Medications acetaminophen 325 mg tablet 650 mg PO Q6H PRN PRN Mild Pain (scale 0-3)/T>100.7 02/10/18 [Rx Last Taken Unknown] calcium carbonate 500 mg-vitamin D3 5 mcg (200 unit) tablet 1 tab PO DAILY 02/10/18 [Rx Last Taken 04/30/20] omega-3 fatty acids 1,000 mg capsule (Fish Oil Concentrate) 1,000 mg PO DAILY supplement 07/19/18 [History Last Taken 04/30/20] omeprazole 20 mg delayed release,disintegrating tablet 20 mg PO DAILY 05/18/20 [History Last Taken Unknown] apixaban 5 mg tablet (Eliquis) 5 mg PO BID #60 tabs 06/03/21 [Rx Last Taken Unknown] metoprolol succinate 25 mg tablet,extended release 24 hr 25 mg PO DAILY #30 tabs 06/03/21 [Rx Last Taken Unknown] sacubitril 24 mg-valsartan 26 mg tablet (Entresto) 1 tab PO BID #60 tabs 06/03/21 [Rx Last Taken Unknown] fluticasone fur. 100 mcg-umeclid 62.5 mcg-vilant 25 mcg inhalat.powder 1 inh inhalation DAILY #60 ea 08/05/21 [Rx Last Taken Unknown] furosemide 40 mg tablet 40 mg PO DAILY diuretic #30 tabs 12/02/21 [Rx Last Taken Unknown] potassium chloride 10 mEq tablet,extended release 10 meq PO DAILY 12/02/21 [History Last Taken Unknown] Allergy/AdvReac Type Severity Reaction Status Date / Time aspirin [ASA] AdvReac stomach Verified 04/26/22 01:07 burning and sick to stomach propoxyphene HCl AdvReac i get Verified 04/26/22 01:07 [From Darvon] dizzy and pass out event monitor pads Allergy Severe Blisters Uncoded 04/26/22 01:07 Family History Mother Heart disease Father Heart disease Surgical History History of appendectomy History of total hysterectomy Status post left heart catheterization (LHC) (~05/11/18) Social History Smoking Status: Former smoker how long ago did patient quit smokin, 1ppd second hand exposure: Yes alcohol intake: current alcohol intake frequency: holidays/special occasions only Alcohol type: beer substance use type: does not use caffeine: No ROS ROS ED Constitutional Constitutional ED: Denies chills or fever(s) Eyes Eyes: Denies change in vision or diplopia ENT ENT ED: Denies rhinorrhea or sore throat Cardiovascular Cardiovascular: Reports chest pain, leg edema and palpitations Respiratory/Chest Respiratory/Chest: Reports dyspnea; Denies cough Gastrointestinal Gastrointestinal: Denies abdominal pain, diarrhea, nausea or vomiting Genitourinary Genitourinary ED: Denies dysuria or hematuria Musculoskeletal Musculoskeletal: Denies back pain or neck pain Integumentary Denies abscess or rash Neurologic Neurologic: Denies headache(s), paresthesias or weakness Psychiatric Psychiatric: Denies anxiety or suicidal thoughts EXAM Physical Exam Const Vital Signs: 04/26/22 01:07 04/26/22 01:10 04/26/22 01:13 Temperature 98.1 F Temperature Source Oral Pulse Rate 185 H Respiratory Rate 27 H Respiratory Effort Normal Respiratory Pattern Normal Blood Pressure 109/81 H Blood Pressure Mean 90 Pulse Ox 94 94 Oxygen Delivery Method Nasal Cannula Nasal Cannula Oxygen Flow Rate (L/min) 2 2 04/26/22 02:05 04/26/22 03:06 Temperature Temperature Source Pulse Rate 78 Respiratory Rate 18 Respiratory Effort Respiratory Pattern Blood Pressure 122/66 H Blood Pressure Mean 84 Pulse Ox 97 Oxygen Delivery Method Room Air Nasal Cannula Oxygen Flow Rate (L/min) 2 Positive well nourished, well developed and obese General Appearance ED: well developed and NAD Nutritional Appearance: obese HEENT Reports moist mucous membranes normocephalic and atraumatic Eyes PERRL and EOMs intact bilaterally Neck full ROM and supple Resp normal respiratory effort and clear to auscultation bilaterally Cardio regular rate, regular rhythm and no murmurs Rate: tachycardic GI non-tender and non-distended Auscultation: normoactive bowel sounds Palpation: soft Back/Spine no CVA tenderness General Back: other FROM Extremity normal to inspection General Extremety ED: Yes edema; Negative for pulses abnormal or tenderness General Extremity: edema bilateral lower extremity Details: mild; Negative for pulses abnormal Neuro oriented x3, CN's II-XII intact bilaterally and no sensory deficits noted Sensorium / Orientation: awake and alert Motor Exam: strength 5/5 throughout Skin no rashes or lesions noted and no wounds Heart Score History: Moderately Suspicious ECG: Nonspecific Repolarization Age: >/= 65 years Risk Factors: 1 or 2 Risk Factors Troponin: </= Normal Limit Score: 5 MDM MDM MDM Narrative Medical decision making narrative: Upon seeing the patient's EKG, she did not have IV access yet, my concern was that this patient needed to be cardioverted because of the wide complexes and severe tachycardia, making it very difficult to determine what the rhythm is but unlikely to be atrial flutter at this rate of 180s. I went to review an old EKG when nurses attempted to get an IV. It appears that her bifascicular block is pre-existing and the morphology of the current EKG matches that of her old one. Since she is clinically stable/awake although she is unstable with regards to her tachycardia, I thought it would be reasonable to try adenosine first. Upon getting the IV in, the patient then suddenly dropped her heart rate to around 118, it appeared to be sinus tachycardia on the monitor, and her symptoms of chest discomfort and palpitations completely resolved. Therefore adenosine was not given, and she was monitored with a small amount of IV fluid while we worked her up. Her heart rate did gradually slow down, we recaptured an EKG when her heart rate was down to around 105 and it does show sinus rhythm as suspected, on my interpretation, without acute injury. With observation this continued to slow down into the 70s. She had no recurrent symptoms. She was monitored for couple of hours and we did a repeat troponin, it is still within normal limits but almost doubled the initial at 30. I reviewed her most recent outpatient cardiology clinic note from November of last year in addition to her echocardiogram from August 2020, showing an EF of 55%. She has a history of a nonischemic cardiomyopathy, and she had radiofrequency ablation for her dysrhythmia. I am suspicious this was AVRT or AVNRT as opposed to atrial fibrillation given the irregularity and speed, I am not able to rule out ventricular tachycardia but I think that was less likely given her otherwise stable vital signs and clinical appearance. I discussed all this with Dr. Yost who was on for cardiology, who agrees in this case we do not need to admit this patient and she is okay to follow-up as an outpatient unless she has recurrent symptoms at which point she should return to the ER. Patient is comfortable with this plan. Lab Data Attestation: I reviewed the patient's lab results. Labs: Laboratory Results - last 24 hr 04/26/22 04/26/22 04/26/22 01:25 01:25 03:23 WBC 10.0 RBC 5.00 Hgb 14.3 Hct 45.1 MCV 90.2 MCH 28.6 MCHC 31.7 L RDW Std Deviation 42.0 RDW Coeff of Liam 12.8 Plt Count 276 MPV 9.3 Immature Gran % (Auto) 0.300 Neut % (Auto) 59.5 Lymph % (Auto) 32.3 Beaver % (Auto) 6.3 Eos % (Auto) 1.5 Baso % (Auto) 0.1 Absolute Neuts (auto) 5.9 Absolute Lymphs (auto) 3.22 Nucleated RBC % 0 Sodium 141 Potassium 3.6 Chloride 108 H Carbon Dioxide 25.0 Anion Gap 8 BUN 33 H Creatinine 1.50 H Estim Creat Clear Calc 28.41 Est GFR (MDRD) Af Amer 44 L Est GFR (MDRD) Non-Af 36 L BUN/Creatinine Ratio 22.0 H Glucose 189 H Calcium 9.0 Troponin I High Sens 17 30 Radiography Diagnostic Testing: Clinical Impression(s) from Imaging Studies Chest X-Ray 04/26/22 01:18 IMPRESSION: Cardiomegaly and mild pulmonary congestion. Electronically Signed: Deb Arango MD at 2:10 EST Reading Location ID and State: [facility] / [place] , Service support , Rhythm Strip Rhythm Strip: Wide-complex tachycardia Rate: 185 Ectopy: None EKG Initial EKG: Attestation: I personally reviewed and interpreted this EKG as follows: Interpretation: - (Wide-complex tachycardia at 183 with bifascicular block) Prior EKG tracings: available for review Prior: Unchanged (Morphology unchanged but rhythm was sinus on old EKG 08/12/2021) Follow-up EKG: Attestation: I personally reviewed and interpreted this EKG as follows: Interpretation: Sinus Rhythm, No Acute Injury Pattern, RBBB and LAFB Comments: Similar to prior, changed from wide-complex tachycardia to sinus rhythm compared with EKG this visit Discharge Plan Triage Chief Complaint: Chest Pain ED Provider: Clarke Obrien Dx/Rx/DC Orders Clinical Impression: Supraventricular tachycardia, Chest pain Instructions: Supraventricular Tachycardia Prescriptions: Continued omega-3 fatty acids [Fish Oil Concentrate] 1,000 mg capsule 1,000 mg PO DAILY Eliquis 5 mg tablet 5 mg PO BID Qty: 60 12RF metoprolol succinate 25 mg tablet extended release 24 hr 25 mg PO DAILY Qty: 30 12RF Entresto 24-26 mg tablet 1 tab PO BID Qty: 60 11RF furosemide 40 mg tablet 40 mg PO DAILY Qty: 30 12RF potassium chloride 10 mEq tablet extended release 10 meq PO DAILY ggimyjkmkcc-jejduonae-giwmvgdh 100-62.5-25 mcg blister with device 1 inh INHALATION DAILY Qty: 60 11RF acetaminophen 325 MG tablet 650 mg PO Q6H PRN PRN (Reason: Mild Pain (scale 0-3)/T>100.7) 0RF calcium carbonate-vitamin D3 1 TABLET tablet 1 tab PO DAILY 0RF omeprazole 20 MG tablet,disintegrat, delay rel 20 mg PO DAILY Primary Care Provider: Alfonzo Cha Referrals: Cornelio Hernandez MD [Med Staff - Active Staff] - As soon as possible (call for appt) Alfonzo Cha [Primary Care Provider] - Disposition Disposition: Home, Self Care
--- NOTE | 2022-04-26 01:30 | EKG12_ITS ---
Test Reason : REPEAT CP Blood Pressure : / mmHG Vent. Rate : 106 BPM Atrial Rate : 106 BPM P-R Int : 130 ms QRS Dur : 176 ms QT Int : 434 ms P-R-T Axes : 049 -88 029 degrees QTc Int : 576 ms Sinus tachycardia Right bundle branch block Left anterior fascicular block Bifascicular block Abnormal ECG Confirmed by CY WALKER, LEE ([id number]), development editor CANELO POLLACK ([id number]) on 04/27/2022 10:46:38 AM Referred By: ANIVAL Confirmed By:LEE BENOIT MD
[2022-04-26 01:48] LABS: Anion Gap 8 (5-15); BUN 33 mg/dL (7-18); Chloride 108 mmol/L (98-107); EST Glomerular Filtration Rate 36 mL/min (>60); Est Glom Filt Rate - Afr Amer 44 mL/min (>60); Estimated Creatinine Clearance 28.41 ml/min; Glucose 189 mg/dL (74-106); Potassium 3.6 mmol/L (3.5-5.1); Sodium Level 141 mmol/L (136-145); Troponin-I HS (w/2H Reflex) 17 pg/mL (3.0-54.0)
[2022-04-26 01:58] LABS: Absolute Lymphocyte Count 3.22 X10^3/uL (0.83-4.51); Absolute Neutrophil Count 5.9 X10^3/uL (2.0-7.7); Basophil# 0.01 X10^3/uL; Basophil% 0.1 % (0-1); Eosinophil# 0.15 X10^3/uL; Eosinophils% 1.5 % (0-5); Hematocrit 45.1 % (37-47); Hemoglobin 14.3 g/dL (12.0-15.0); Lymphocyte # 3.22 X10^3/ul (0.83-4.51); Lymphocyte % 32.3 % (19-41); Mean Corp Hgb Conc 31.7 g/dL (32-36); Mean Corpuscular Hgb 28.6 pg (27.0-32.0); Mean Corpuscular Volume 90.2 fL (81-99); Mean Platelet Vol. 9.3 fl (6.2-12.0); Monocyte# 0.63 X10^3/uL; Monocyte% 6.3 % (0-10); NRBC Flagged by Analyzer 0 % (0-5); Neutrophil # 5.94 X10^3/uL (2.7-7.7); Neutrophil % 59.5 % (47-70); Platelet Count 276 K/mm3 (150-450); RBC Distribution Width CV 12.8 % (11.6-14.6)
[2022-04-26 03:06] VITALS: BP 122/66; PULSE 78; RESP 18; O2SAT 97
[2022-04-26 03:28] LABS: Reflex Troponin-HS? (from REC) Y
[2022-04-26 03:53] LABS: Troponin-I HS 30 pg/mL (3.0-54.0)
[2022-04-26 04:23] VITALS: BP 122/62; PULSE 77; RESP 18; O2SAT 97
== END 2022-04-26 04:39 | disposition home or self-care (01) ==
PROVIDERS: Emergency Provider Emergency Medicine; Visit Provider Emergency Medicine
DX: I47.1 Supraventricular tachycardia (principal); R07.9 Chest pain, unspecified; I25.10 Atherosclerotic heart disease of native coronary artery without angina pectoris; G47.33 Obstructive sleep apnea (adult) (pediatric); E66.9 Obesity, unspecified; Z87.891 Personal history of nicotine dependence
CPT/HCPCS: 71045; 80048; 84484; 85025; 93005; 99285; J0153

== ENCOUNTER 2022-04-26 15:38 | Inpatient (IN) | payer MEDICARE, MEDICAID, SELFPAY ==
[2022-04-26] VITALS (11 sets, daily range): BP systolic 104–131; BP diastolic 47–85; PULSE 65–107; RESP 16–22; TEMP 36.6–37.1; O2SAT 94–99; BMI 56.9; BMI 59.0
[2022-04-26 16:09] LABS: Absolute Lymphocyte Count 4.21 X10^3/uL (0.83-4.51); Absolute Neutrophil Count 6.9 X10^3/uL (2.0-7.7); Basophil# 0.02 X10^3/uL; Basophil% 0.2 % (0-1); Eosinophil# 0.08 X10^3/uL; Eosinophils% 0.7 % (0-5); Hematocrit 47.4 % (37-47); Hemoglobin 15.4 g/dL (12.0-15.0); Lymphocyte # 4.21 X10^3/ul (0.83-4.51); Lymphocyte % 34.8 % (19-41); Mean Corp Hgb Conc 32.5 g/dL (32-36); Mean Corpuscular Hgb 29.4 pg (27.0-32.0); Mean Corpuscular Volume 90.5 fL (81-99); Mean Platelet Vol. 9.1 fl (6.2-12.0); Monocyte# 0.81 X10^3/uL; Monocyte% 6.7 % (0-10); NRBC Flagged by Analyzer 0 % (0-5); Neutrophil # 6.93 X10^3/uL (2.7-7.7); Neutrophil % 57.3 % (47-70); Platelet Count 285 K/mm3 (150-450); RBC Distribution Width CV 12.8 % (11.6-14.6); RBC Distribution Width SD 42.3 fl (35.1-43.9); Red Blood Count 5.24 M/mm3 (4.2-5.4); White Blood Count 12.1 K/mm3 (4.4-11.0)
--- NOTE | 2022-04-26 16:12 | RAD_ITS ---
INDICATION: chest pain EXAMINATION/TECHNIQUE: X-RAY - XR Chest 1 View COMPARISON: April 26, 2022 1:27 AM FINDINGS: LINES/DEVICES: None. LUNGS: Mild right subsegmental atelectasis or evolving infiltrate... No pneumothorax. MEDIASTINUM AND CARDIOVASCULAR STRUCTURES: Cardiac silhouette is enlarged. Central airways and mediastinal contour are unremarkable. BONES AND SOFT TISSUES: Dorsal spine and shoulders demonstrate degenerative change. No significant change since prior exam RAD/Chest 1 View (Portable) IMPRESSION: Mild right basilar atelectasis or infiltrate. Electronically Signed: Dennis Maradiaga MD at 16:30 EST ,
[2022-04-26 16:30] LABS: Anion Gap 5 (5-15); BUN 24 mg/dL (7-18); BUN/Creat Ratio 17.9 RATIO (10-20); Calcium,Total 9.2 mg/dL (8.5-10.1); Chloride 106 mmol/L (98-107); Creatinine, Serum 1.34 mg/dL (0.55-1.02); EST Glomerular Filtration Rate 41 mL/min (>60); Est Glom Filt Rate - Afr Amer 50 mL/min (>60); Estimated Creatinine Clearance 34.48 ml/min; Glucose 117 mg/dL (74-106); Potassium 3.4 mmol/L (3.5-5.1); Sodium Level 142 mmol/L (136-145); Troponin-I HS (w/2H Reflex) 34 pg/mL (3.0-54.0)
--- NOTE | 2022-04-26 16:40 | EDS_ITS ---
HPI History of Present Illness Chief Complaint: Palpitations Narrative Narrative: 72-year-old female with history of COPD, hypertension, CHF, atrial flutter, atrial fibrillation, SVT presenting after having heart rate of approximately 202 at home. She states she was experiencing chest pain at this. She reports radiation of pain down her left arm. She called EMS. She states that they gave her something through the IV that slowed her heart rate down. Currently she feels improved. She denies fever, chills, cough, nausea, vomiting. Patient was seen earlier this morning for similar symptoms. Her heart rate spontaneously resolved and she did not require any medication. Apparently the ER physician that saw her spoke with cardiology and recommended discharge home as her symptoms are recurrent. Patient states that she is on Eliquis. She is unsure of what she is on to control her heart rate. [facility] Medical History Atrial flutter Atrial flutter with rapid ventricular response CAD (coronary artery disease) Cardiomyopathy Chronic obstructive pulmonary disease Chronic systolic (congestive) heart failure Essential hypertension GERD (gastroesophageal reflux disease) Hypoxia Longstanding persistent atrial fibrillation Morbid obesity CECILIA (obstructive sleep apnea) Home Medications calcium carbonate 500 mg-vitamin D3 5 mcg (200 unit) tablet 1 tab PO DAILY 02/10/18 [Rx Last Taken 04/30/20] omega-3 fatty acids 1,000 mg capsule (Fish Oil Concentrate) 1,000 mg PO DAILY supplement 07/19/18 [History Last Taken 04/30/20] omeprazole 20 mg delayed release,disintegrating tablet 20 mg PO DAILY 05/18/20 [History Last Taken Unknown] apixaban 5 mg tablet (Eliquis) 5 mg PO BID #60 tabs 06/03/21 [Rx Last Taken Unknown] metoprolol succinate 25 mg tablet,extended release 24 hr 25 mg PO DAILY #30 tabs 06/03/21 [Rx Last Taken Unknown] sacubitril 24 mg-valsartan 26 mg tablet (Entresto) 1 tab PO BID #60 tabs 06/03/21 [Rx Last Taken Unknown] fluticasone fur. 100 mcg-umeclid 62.5 mcg-vilant 25 mcg inhalat.powder 1 inh inhalation DAILY #60 ea 08/05/21 [Rx Last Taken Unknown] potassium chloride 10 mEq tablet,extended release 10 meq PO DAILY 08/18/22 [History Last Taken Unknown] furosemide 40 mg tablet mg 04/26/22 [History Last Taken Unknown] Allergy/AdvReac Type Severity Reaction Status Date / Time aspirin [ASA] AdvReac stomach Verified 04/26/22 01:07 burning and sick to stomach propoxyphene HCl AdvReac i get Verified 04/26/22 01:07 [From Darvon] dizzy and pass out event monitor pads Allergy Severe Blisters Uncoded 04/26/22 01:07 Family History Mother Heart disease Father Heart disease Surgical History History of appendectomy History of total hysterectomy Status post left heart catheterization (LHC) (~05/11/18) Social History Smoking Status: Former smoker how long ago did patient quit smokin, 1ppd second hand exposure: Yes alcohol intake: current alcohol intake frequency: holidays/special occasions only Alcohol type: beer substance use type: does not use caffeine: No ROS ROS ED Constitutional Constitutional ED: Denies chills or fever(s) Eyes Eyes: Denies none ENT ENT ED: Denies rhinorrhea or sore throat Cardiovascular Cardiovascular: Reports chest pain, palpitations and racing heartbeat Respiratory/Chest Respiratory/Chest: Denies cough, dyspnea or dyspnea on exertion Gastrointestinal Gastrointestinal: Denies abdominal pain, nausea or vomiting Genitourinary Genitourinary ED: Denies dysuria or hematuria Musculoskeletal Musculoskeletal: Denies arthralgias or back pain Integumentary Denies Abrasions Neurologic Neurologic: Denies headache(s) or paresthesias Psychiatric Psychiatric: Denies anxiety or depression EXAM Physical Exam Const Vital Signs: 04/26/22 15:55 04/26/22 15:58 04/26/22 15:59 Temperature 97.8 F 97.8 F Temperature Source Temporal Temporal Pulse Rate 85 85 Respiratory Rate 16 16 Respiratory Effort Normal Non-Labored Blood Pressure 104/85 H 104/85 H Blood Pressure Mean 91 91 Pulse Ox 94 97 Oxygen Delivery Method Room Air Venturi Mask Oxygen Flow Rate (L/min) 2 04/26/22 16:04 04/26/22 16:58 04/26/22 16:58 Temperature 97.8 F Temperature Source Temporal Pulse Rate 87 87 Respiratory Rate 16 16 Respiratory Effort Blood Pressure 120/78 120/78 Blood Pressure Mean 92 92 Pulse Ox 96 99 99 Oxygen Delivery Method Nasal Cannula Room Air Room Air Oxygen Flow Rate (L/min) 2 04/26/22 17:00 04/26/22 18:00 04/26/22 19:21 Temperature Temperature Source Pulse Rate 78 107 H 77 Respiratory Rate 16 18 22 H Respiratory Effort Blood Pressure 126/78 H 109/78 105/58 L Blood Pressure Mean 94 88 73 Pulse Ox 98 99 95 Oxygen Delivery Method Room Air Room Air Room Air Oxygen Flow Rate (L/min) 04/26/22 21:00 Temperature Temperature Source Pulse Rate 85 Respiratory Rate 16 Respiratory Effort Blood Pressure 118/47 L Blood Pressure Mean 70 Pulse Ox 94 Oxygen Delivery Method Oxygen Flow Rate (L/min) Positive obese General Appearance ED: NAD Nutritional Appearance: obese HEENT Reports moist mucous membranes normocephalic Eyes PERRL and EOMs intact bilaterally Chest Wall inspection of chest normal and palpation of chest normal Resp normal respiratory effort and clear to auscultation bilaterally Auscultation: Negative for rales, rhonchi or wheezes Cardio regular rate and regular rhythm GI normal to inspection, nondistended, normoactive bowel sounds Extremity normal to inspection Neuro oriented x3 and CN's II-XII intact bilaterally Sensorium / Orientation: awake and alert Motor Exam: strength 5/5 throughout Psych mental status grossly normal Skin no rashes or lesions noted and no wounds Heart Score History: Slightly/Non-Suspicious ECG: Normal Age: >/= 65 years Risk Factors: >/= 3 Risk Factors or History of CAD Score: 4 MDM MDM MDM Narrative Medical decision making narrative: Patient presenting with heart rate that was in the 200s. Apparently EMS gave her 6 mg of adenosine and her heart rate is now normal. Apparently she was in SVT. EKG today is sinus rhythm with a ventricular rate of 74 bpm with first- degree AV block. CBC was obtained and shows a slight leukocytosis 12.1 which is slightly higher than her white blood cell count of 10 previously earlier today. Hemoglobin hematocrit are slightly more hemoconcentrated than earlier this morning as well platelets are normal to 85. Creatinine is improved from 1.5- 1.34. Potassium slightly low at 3.4 otherwise electrolytes are unremarkable. High-sensitivity troponin is 34. Chest x-ray on my interpretation shows no acute interval changes from previous x-ray yesterday however the radiologist reads this is right basilar atelectasis or infiltrate. BNP slightly elevated at 478. This is far below her previous baseline. Delta troponin came back at 34 as well. I spoke with Dr. Hernandez regarding the patient who felt that if the patient received adenosine and her heart rhythm responded to this likely ANRT and recommended speaking to her EP tile mechanic helper at [facility] and felt it might be necessary transfer. I spoke with Dr. Callejas at length regarding this. He states that he will be accepting and will arrange medical transport to [facility]. The transfer line tells me that they will not have a bed at least until tomorrow. Given this I did speak with the hospitalist to have her observed until that initially moved from the ER. Impression: 1. Tachycardia likely SVT 2. History of A. fib 3. History of a flutter 4. Chest pain Lab Data Labs: Laboratory Results - last 24 hr 04/26/22 04/26/22 04/26/22 15:30 15:30 15:30 WBC 12.1 H RBC 5.24 Hgb 15.4 H Hct 47.4 H MCV 90.5 MCH 29.4 MCHC 32.5 RDW Std Deviation 42.3 RDW Coeff of Liam 12.8 Plt Count 285 MPV 9.1 Immature Gran % (Auto) 0.300 Neut % (Auto) 57.3 Lymph % (Auto) 34.8 [place] % (Auto) 6.7 Eos % (Auto) 0.7 Baso % (Auto) 0.2 Absolute Neuts (auto) 6.9 Absolute Lymphs (auto) 4.21 Nucleated RBC % 0 Sodium 142 Potassium 3.4 L Chloride 106 Carbon Dioxide 31.0 Anion Gap 5 BUN 24 H Creatinine 1.34 H Estim Creat Clear Calc 34.48 Est GFR (MDRD) Af Amer 50 L Est GFR (MDRD) Non-Af 41 L BUN/Creatinine Ratio 17.9 Glucose 117 H Calcium 9.2 Troponin I High Sens 34 B-Natriuretic Peptide 478.0 H 04/26/22 18:17 WBC RBC Hgb Hct MCV MCH MCHC RDW Std Deviation RDW Coeff of Liam Plt Count MPV Immature Gran % (Auto) Neut % (Auto) Lymph % (Auto) [place] % (Auto) Eos % (Auto) Baso % (Auto) Absolute Neuts (auto) Absolute Lymphs (auto) Nucleated RBC % Sodium Potassium Chloride Carbon Dioxide Anion Gap BUN Creatinine Estim Creat Clear Calc Est GFR (MDRD) Af Amer Est GFR (MDRD) Non-Af BUN/Creatinine Ratio Glucose Calcium Troponin I High Sens 34 B-Natriuretic Peptide Radiography Diagnostic Testing: Clinical Impression(s) from Imaging Studies Chest X-Ray 04/26/22 16:12 IMPRESSION: Mild right basilar atelectasis or infiltrate. Electronically Signed: Dennis Maradiaga MD at 16:30 EST , Discharge Plan Triage Chief Complaint: Palpitations ED Provider: Ashkan Bellamy Dx/Rx/DC Orders Prescriptions: No Action omega-3 fatty acids [Fish Oil Concentrate] 1,000 mg capsule 1,000 mg PO DAILY Eliquis 5 mg tablet 5 mg PO BID Qty: 60 12RF metoprolol succinate 25 mg tablet extended release 24 hr 25 mg PO DAILY Qty: 30 12RF Entresto 24-26 mg tablet 1 tab PO BID Qty: 60 11RF potassium chloride 10 mEq tablet extended release 10 meq PO DAILY [id number] 100-62.5-25 mcg blister with device 1 inh INHALATION DAILY Qty: 60 11RF calcium carbonate-vitamin D3 1 TABLET tablet 1 tab PO DAILY 0RF omeprazole 20 MG tablet,disintegrat, delay rel 20 mg PO DAILY furosemide 40 mg tablet Label Comments: take 1 tablet by mouth once daily for DIURETIC Primary Care Provider: Alfonzo Cha Referrals: Alfonzo Cha [Primary Care Provider] -
[2022-04-26 18:05] LABS: Reflex Troponin-HS? (from REC) Y
[2022-04-26 18:42] LABS: Troponin-I HS 34 pg/mL (3.0-54.0)
[2022-04-26] MEDS: Metoprolol(XL)Succ 25 MG Tablet PO (19:09)
--- NOTE | 2022-04-26 21:03 | HP.PCM.HOS_ITS ---
[facility] - General General Date of Admission: 04/26/22 Date of Service: 04/26/22 Chief Complaint: Heart since [facility] Narrative YAO FLORES, is a 72 F with a past medical history as outlined including A. fib and history of SVT s/p ablation at [facility] as well as CHF and hypertension. She was admitted via the ED on 04/26/2022 with a complaint of palpitations. She had apparently had a symptoms earlier on the morning of admission when the palpitations started. She had assisted chest pressure. She came into the ED where she says she was given some medication and her heart rate slowed down. She was discharged home. However at home she noticed on her watch that her heart rate was up in the 200s. She also had a significant palpitations and assisted chest pressure. She denied any fever or chills, dizziness or lightheadedness, abdominal pain, nausea vomiting or any other symptoms. Review systems otherwise negative. She decided to come into the ED. The ED doctor spoke to her dispensing and measuring optician who recommended that patient be transferred to [facility] because she had had a ablation done there. He also recommended the patient be started on p.o. metoprolol 25 mg twice daily. Of note, according to the ED doctor the EKG that showed her tachycardia was not available in the ED and so the rhythm had not been captured. She has spontaneously converted to normal sinus rhythm since arriving in the ED. ED doctor did speak to the EP doctor at [facility] who recommended that patient will be placed on any metoprolol as they wanted the rhythm to be captured if she became tachycardic again. There was no bed at [facility] so patient is being admitted pending transfer to [facility] to be managed for tachycardia. Vitals at time of review where blood pressure 105/58, pulse rate of 77 and respiratory rate of 22 with oxygen saturation of 95% on room air. CBC showed hemoglobin of 15.4 with WBC of 12.1 and platelets of 285. Chemistry showed sodium of 142 with potassium of 3.4 and creatinine of 1.34. Troponins x3 were not elevated and BNP was 478. EKG showed mild right basilar atelectasis or infiltrate. EKG showed normal sinus rhythm. [facility] Medical History Atrial flutter Atrial flutter with rapid ventricular response CAD (coronary artery disease) Cardiomyopathy Chronic obstructive pulmonary disease Chronic systolic (congestive) heart failure Essential hypertension GERD (gastroesophageal reflux disease) Hypoxia Longstanding persistent atrial fibrillation Morbid obesity CECILIA (obstructive sleep apnea) Home Medications calcium carbonate 500 mg-vitamin D3 5 mcg (200 unit) tablet 1 tab PO DAILY 02/10/18 [Rx Last Taken 04/30/20] omega-3 fatty acids 1,000 mg capsule (Fish Oil Concentrate) 1,000 mg PO DAILY supplement 07/19/18 [History Last Taken 04/30/20] omeprazole 20 mg delayed release,disintegrating tablet 20 mg PO DAILY 05/18/20 [History Last Taken Unknown] apixaban 5 mg tablet (Eliquis) 5 mg PO BID #60 tabs 06/03/21 [Rx Last Taken Unknown] metoprolol succinate 25 mg tablet,extended release 24 hr 25 mg PO DAILY #30 tabs 06/03/21 [Rx Last Taken Unknown] sacubitril 24 mg-valsartan 26 mg tablet (Entresto) 1 tab PO BID #60 tabs 06/03/21 [Rx Last Taken Unknown] fluticasone fur. 100 mcg-umeclid 62.5 mcg-vilant 25 mcg inhalat.powder 1 inh inhalation DAILY #60 ea 08/05/21 [Rx Last Taken Unknown] potassium chloride 10 mEq tablet,extended release 10 meq PO DAILY 12/02/21 [History Last Taken Unknown] furosemide 40 mg tablet mg 04/26/22 [History Last Taken Unknown] Allergy/AdvReac Type Severity Reaction Status Date / Time aspirin [ASA] AdvReac stomach Verified 04/26/22 01:07 burning and sick to stomach propoxyphene HCl AdvReac i get Verified 04/26/22 01:07 [From Darvon] dizzy and pass out event monitor pads Allergy Severe Blisters Uncoded 04/26/22 01:07 Family History Mother Heart disease Father Heart disease Surgical History History of appendectomy History of total hysterectomy Status post left heart catheterization (LHC) (~05/11/18) Social History Smoking Status: Former smoker how long ago did patient quit smokin, 1ppd second hand exposure: Yes alcohol intake: current alcohol intake frequency: holidays/special occasions only Alcohol type: beer substance use type: does not use caffeine: No ROS Constitutional Constitutional: Denies anorexia, chills, fatigue, fever(s), malaise or weakness Eyes Eyes: Denies change in vision ENT HEENT: Denies dysphagia or headache(s) Cardiovascular Cardiovascular: Reports palpitations and rapid heart rate; Denies chest pain, dyspnea on exertion, edema, lightheadedness, orthopnea, paroxysmal nocturnal dyspnea or syncope Respiratory/Chest Respiratory/Chest: Denies cough, dyspnea, hemoptysis, shortness of breath at rest or shortness of breath with exertion Gastrointestinal Gastrointestinal: Denies abdominal pain, constipation, diarrhea, nausea or vomiting Genitourinary Genitourinary: Denies burning urination or difficulty urinating Musculoskeletal Musculoskeletal: Denies arthralgias Neurologic Neurologic: Denies confusion, dizziness, focal weakness, headache(s), seizures or syncope Psychiatric Psychiatric: Denies anxiety Endocrine Endocrinology: Denies change in body appearance Hematologic/Lymphatic Hematologic/Lymphatic: Denies anemia Vital Signs Vital Signs Vital Signs: 04/26/22 15:55 04/26/22 15:58 04/26/22 15:59 Temperature 97.8 F 97.8 F Temperature Source Temporal Temporal Pulse Rate 85 85 Respiratory Rate 16 16 Respiratory Effort Normal Non-Labored Blood Pressure 104/85 H 104/85 H Blood Pressure Mean 91 91 Pulse Ox 94 97 Oxygen Delivery Method Room Air Venturi Mask Oxygen Flow Rate (L/min) 2 04/26/22 16:04 04/26/22 16:58 04/26/22 16:58 Temperature 97.8 F Temperature Source Temporal Pulse Rate 87 87 Respiratory Rate 16 16 Respiratory Effort Blood Pressure 120/78 120/78 Blood Pressure Mean 92 92 Pulse Ox 96 99 99 Oxygen Delivery Method Nasal Cannula Room Air Room Air Oxygen Flow Rate (L/min) 2 04/26/22 17:00 04/26/22 18:00 04/26/22 19:21 Temperature Temperature Source Pulse Rate 78 107 H 77 Respiratory Rate 16 18 22 H Respiratory Effort Blood Pressure 126/78 H 109/78 105/58 L Blood Pressure Mean 94 88 73 Pulse Ox 98 99 95 Oxygen Delivery Method Room Air Room Air Room Air Oxygen Flow Rate (L/min) Weight Weight: 352 lb 11.834 oz Body Mass Index (BMI) 56.9 Physical Exam Const alert, oriented x3 and no apparent distress General Appearance: cooperative HEENT normocephalic, head/scalp atraumatic, hearing grossly normal bilaterally and moist oral mucous membranes Mouth: oral and palatal mucosa normal Eyes PERRL, EOMs intact bilaterally and conjunctivae normal Neck no lymphadenopathy and supple Resp normal respiratory effort, no retractions, no use of accessory muscles and clear to auscultation bilaterally Cardio regular rate, regular rhythm, S1 normal heart sound, S2 normal heart sound and no murmurs GI normal to inspection, nondistended, normoactive bowel sounds, soft to palpation, non-tender and non-distended Extremity normal to inspection, full ROM and no clubbing, cyanosis or edema Neuro oriented x3, CN's II-XII intact bilaterally and moves all extremities Sensorium / Orientation: awake and alert Motor Exam: strength 5/5 throughout Psych affect normal Results Lab / Micro Data Result Diagrams: 04/26/22 15:30 04/26/22 15:30 Labs: Laboratory Results - last 24 hr 04/26/22 15:30: WBC 12.1 H, RBC 5.24, Hgb 15.4 H, Hct 47.4 H, MCV 90.5, MCH 29.4, MCHC 32.5, RDW Std Deviation 42.3, RDW Coeff of Liam 12.8, Plt Count 285, MPV 9.1, Immature Gran % (Auto) 0.300, Neut % (Auto) 57.3, Lymph % (Auto) 34.8, [place] % (Auto) 6.7, Eos % (Auto) 0.7, Baso % (Auto) 0.2, Absolute Neuts (auto) 6.9, Absolute Lymphs (auto) 4.21, Nucleated RBC % 0 04/26/22 15:30: Sodium 142, Potassium 3.4 L, Chloride 106, Carbon Dioxide 31.0, Anion Gap 5, BUN 24 H, Creatinine 1.34 H, Estim Creat Clear Calc 34.48, Est GFR (MDRD) Af Amer 50 L, Est GFR (MDRD) Non-Af 41 L, BUN/Creatinine Ratio 17.9, Glucose 117 H, Calcium 9.2, Troponin I High Sens 34 04/26/22 15:30: B-Natriuretic Peptide 478.0 H 04/26/22 18:17: Troponin I High Sens 34 Radiology Impression Chest X-Ray 04/26/22 16:12 IMPRESSION: Mild right basilar atelectasis or infiltrate. Electronically Signed: Dennis Maradiaga MD at 16:30 EST Reading Location ID and State: [address] [place] [address] , Service support , Assessment & Plan Assessment/Plan (1) Supraventricular tachycardia: PLAN: Plan #Tachycardia * does have a history of SVT s/p ablation * converted to NSR since admission in the ED, so her rhythm when she was tachcyardic is not clear * was to be transferred to [facility] but is still awaiting a bed * admitted pending bed availability at [facility] * Dr. Hernandez apparently recommended patient be started on metoprolol 25 mg twice daily. She is usually on metoprolol XL 25 mg daily at home. [facility] EP Dr. Reilly recommended that she she just continued on her metoprolol 25 mg daily for now and no additional metoprolol 25 mg twice daily added on as they wanted the rhythm captured if she became tachycardic to determine if she would benefit from additional metoprolol. * IV Lopressor as needed * #History of A. fib: On metoprolol. Also on Eliquis. #COPD: Fluticasone McFayden vilanterol as well as breathing treatments br onchodilators. Not in exacerbation. #Heart failure with reduced ejection fraction: * BNP was 478. On Entresto. * doesnt look to be in exacerbation, though BNP is elevated; CXR also showed enlarged cardiac silhouette and mild right basilar atelectasis vs infiltrate * We diurese gently with IV Lasix 40 mg daily. * DVT prophylaxis: not indicated as she is on eliquis Code status: full code * Patient counseled extensively about different types of CODE STATUS including full code, DNR CCA and DNR CCA. Patient elects to be full code. * Total [id number] time 16 minutes. * 10:38opm * ED doctor informed me he had found the EKG which showed the original rhythm and discussed it with the dispensing and measuring optician remote operations producer at [facility]. Processing Operator recommended starting patient on IV cardizem 15mg x 1 over 30 mins and then continue with 10mg/hr. Patient's vitals are currently HR of 74, in normal sinus rhythm with BP of 105/69. I am leery about starting cardizem drip now with a bolus in light of her low normal BP and normal HR. Will hold off on this for now and start if she becomes tachycardic. Will hold metoprolol per EP. Charges/Coding Visit Charges Inpatient E&M: 12453 Init Hosp L3 Procedures Hospitalists Procedures: 34740 Advncd Care Plan 30 Min
[2022-04-26] MEDS: APIXABAN 5 MG TABLET PO (23:34)
[2022-04-26] MEDS: SACUBITRIL/VALSARTAN 24/26 MG TABLET 1 EACH PO (23:34)
[2022-04-27] VITALS (8 sets, daily range): BP systolic 111–141; BP diastolic 58–78; PULSE 59–109; RESP 16–18; TEMP 36.2–36.7; O2SAT 92–97
[2022-04-27] MEDS: Potassium Chloride Oral Tablet 20 MEQ 40 MEQ PO (06:24)
[2022-04-27] MEDS: 0.9% Saline Lock 10 ML Syringe IV (06:24)
[2022-04-27 07:21] LABS: Absolute Lymphocyte Count 1.75 X10^3/uL (0.83-4.51); Absolute Neutrophil Count 4.8 X10^3/uL (2.0-7.7); Basophil# 0.01 X10^3/uL; Basophil% 0.1 % (0-1); Eosinophils% 1.4 % (0-5); Hematocrit 42.9 % (37-47); Hemoglobin 13.8 g/dL (12.0-15.0); Lymphocyte # 1.75 X10^3/ul (0.83-4.51); Lymphocyte % 24.1 % (19-41); Mean Corp Hgb Conc 32.2 g/dL (32-36); Mean Corpuscular Hgb 28.9 pg (27.0-32.0); Mean Corpuscular Volume 89.9 fL (81-99); Mean Platelet Vol. 8.8 fl (6.2-12.0); Monocyte# 0.61 X10^3/uL; Monocyte% 8.4 % (0-10); NRBC Flagged by Analyzer 0 % (0-5); Neutrophil # 4.76 X10^3/uL (2.7-7.7); Neutrophil % 65.7 % (47-70); Platelet Count 216 K/mm3 (150-450); RBC Distribution Width CV 12.9 % (11.6-14.6); RBC Distribution Width SD 42.8 fl (35.1-43.9); Red Blood Count 4.77 M/mm3 (4.2-5.4); White Blood Count 7.3 K/mm3 (4.4-11.0)
[2022-04-27 07:45] LABS: Anion Gap 5 (5-15); BUN 24 mg/dL (7-18); BUN/Creat Ratio 18.2 RATIO (10-20); Chloride 108 mmol/L (98-107); Creatinine, Serum 1.32 mg/dL (0.55-1.02); EST Glomerular Filtration Rate 42 mL/min (>60); Est Glom Filt Rate - Afr Amer 51 mL/min (>60); Estimated Creatinine Clearance 32.29 ml/min; Glucose 119 mg/dL (74-106); Potassium 3.7 mmol/L (3.5-5.1); Sodium Level 140 mmol/L (136-145)
[2022-04-27] MEDS: Potassium Chloride Oral Tablet 10 MEQ PO (11:03)
[2022-04-27] MEDS: APIXABAN 5 MG TABLET PO ×2 (11:04→21:42)
[2022-04-27] MEDS: Omega-3 Acid Ethyl Esters 1 GM Capsule PO (11:04)
[2022-04-27] MEDS: Furosemide 40 MG/4 ML Vial IV (11:04)
[2022-04-27] MEDS: Calcium Carb/Vitamin D 1 TABLET Tablet PO (11:04)
[2022-04-27] MEDS: Pantoprazole Sodium 20 MG Tablet PO (11:04)
[2022-04-27] MEDS: SACUBITRIL/VALSARTAN 24/26 MG TABLET 1 EACH PO ×2 (11:04→21:42)
--- NOTE | 2022-04-27 11:05 | PN.HOSP_ITS ---
Subjective Subjective Follow-up palpitations ? Patient is a 72-year-old lady with past medical history segment for paroxysmal atrial flutter fibrillation and SVT who presented to the emergency department with rate of 200. An assessment of PSVT made admitted to monitored bed. Prior to patient being admitted arrangements were made for patient to be transferred to [facility] for EP evaluation Objective Data Objective Data Vital Signs: Vital Signs Temp Pulse Resp BP Pulse Ox O2 Del Method O2 Flow Rate 97.2 F L 59 L 16 126/58 H 93 Room Air 2 04/27/22 10:57 04/27/22 10:57 04/27/22 10:57 04/27/22 10:57 04/27/22 10:57 04/27/22 10:57 04/26/22 23:56 FiO2 35 04/27/22 04:00 Oxygen Flow Rate (L/min) 2 Oxygen Delivery Method Room Air Weight: 156 kg Body Mass Index (BMI) 59.0 Intake & Output: Intake and Output for Last 24 Hours 04/25/22 04/26/22 04/27/22 23:59 23:59 23:59 Intake Total 50 / 50 Balance 50 / 50 Lab / Micro Data Result Diagrams: 04/27/22 07:00 04/27/22 07:00 Labs: Laboratory Results - last 24 hr 04/26/22 15:30: WBC 12.1 H, RBC 5.24, Hgb 15.4 H, Hct 47.4 H, MCV 90.5, MCH 29.4, MCHC 32.5, RDW Std Deviation 42.3, RDW Coeff of Liam 12.8, Plt Count 285, MPV 9.1, Immature Gran % (Auto) 0.300, Neut % (Auto) 57.3, Lymph % (Auto) 34.8, Gilchrist % (Auto) 6.7, Eos % (Auto) 0.7, Baso % (Auto) 0.2, Absolute Neuts (auto) 6.9, Absolute Lymphs (auto) 4.21, Nucleated RBC % 0 04/26/22 15:30: Sodium 142, Potassium 3.4 L, Chloride 106, Carbon Dioxide 31.0, Anion Gap 5, BUN 24 H, Creatinine 1.34 H, Estim Creat Clear Calc 34.48, Est GFR (MDRD) Af Amer 50 L, Est GFR (MDRD) Non-Af 41 L, BUN/Creatinine Ratio 17.9, Glucose 117 H, Calcium 9.2, Troponin I High Sens 34 04/26/22 15:30: B-Natriuretic Peptide 478.0 H 04/26/22 18:17: Troponin I High Sens 34 04/27/22 07:00: WBC 7.3, RBC 4.77, Hgb 13.8, Hct 42.9, MCV 89.9, MCH 28.9, MCHC 32.2, RDW Std Deviation 42.8, RDW Coeff of Liam 12.9, Plt Count 216, MPV 8.8, Immature Gran % (Auto) 0.300, Neut % (Auto) 65.7, Lymph % (Auto) 24.1, Gilchrist % (Auto) 8.4, Eos % (Auto) 1.4, Baso % (Auto) 0.1, Absolute Neuts (auto) 4.8, Absolute Lymphs (auto) 1.75, Nucleated RBC % 0 04/27/22 07:00: Sodium 140, Potassium 3.7, Chloride 108 H, Carbon Dioxide 27.0, Anion Gap 5, BUN 24 H, Creatinine 1.32 H, Estim Creat Clear Calc 32.29, Est GFR (MDRD) Af Amer 51 L, Est GFR (MDRD) Non-Af 42 L, BUN/Creatinine Ratio 18.2, Glucose 119 H, Calcium 9.0 Radiography Diagnostic Testing: Radiology Impression Chest X-Ray 04/26/22 16:12 IMPRESSION: Mild right basilar atelectasis or infiltrate. Electronically Signed: Dennis Maradiaga MD at 16:30 EST Reading Location ID and State: [facility] / [place] , Service support , Physical Exam Narrative GENERAL: cooperative HEENT: Atraumatic; normocephalic EYES; Anicteric, Normal Conjunctiva NECK; supple, normal thyroid, RESPIRATORY: Diminished to auscultation CARDIOVASCULAR: Regular S1 S2, GI: soft, normoactive bowel sounds, : No Renal angle tenderness; EXTREMITIES: No edema, no clubbing, MUSCULOSKELETAL: no muscle wasting NEURO: Awake; no lateralizing signs. SKIN: No Rash PSYCH; Flat affect Assessment & Plan Assessment/Plan (1) Supraventricular tachycardia: PLAN: Plan Patient is a 72-year-old lady with past medical history segment for paroxysmal atrial flutter fibrillation and SVT who presented to the emergency department with rate of 200. An assessment of PSVT made admitted to monitored bed. 1. PSVT ? Patient has history of previous SVT with previous ablation presented with tachycardia Per documentation on admission EKG was consistent with PSVT patient did receive metoprolol as well as Cardizem and admitted to monitored bed.Prior to patient being admitted arrangements were made for patient to be transferred to [facility] for EP evaluation 2. Paroxysmal A. fib ? Rate controlled on metoprolol also systemic anticoagulation with Eliquis 3. COPD ? Currently not in exacerbation did continue patient home bronchodilator regimen 4. Chronic congestive heart failure with reduced ejection fraction ? BNP on admission was 478 patient is Entresto did continue. Patient is on Lasix also did continue 5. Class II obesity with BMI of 59.0 ? Complicating care weight loss advised 6. Obstructive sleep apnea ? Consistent use of CPAP therapy at night encouraged 7. GERD ? Patient is on omeprazole at home suggested with Protonix in the hospital 8. DVT prophylaxis ? Patient on Eliquis Time spent in the patient's overall evaluation,decision-making process, review of diagnostic data, adjustment of management, discussion with other providers, nursing nursing and ancillary staff involved in patient's care documentation, 40 Minutes Charges/Coding Visit Charges Inpatient E&M: 39461 Subs Hosp L2
--- NOTE | 2022-04-27 14:11 | NURSING ---
viewed documentation from Student RN
--- NOTE | 2022-04-27 16:34 | NURSING ---
[facility] transfer line called for update. Will be back in touch with us with an update
--- NOTE | 2022-04-27 23:57 | CPS ---
Pt on own bipap unit with an 8 L bleed in
[2022-04-28] VITALS: BP 139/98; PULSE 82; RESP 18; TEMP 36.8; O2SAT 93
[2022-04-28 03:00] VITALS: PULSE 95
[2022-04-28 05:26] VITALS: BP 140/69; PULSE 56; RESP 16; TEMP 35.8; O2SAT 99
[2022-04-28 08:05] VITALS: O2SAT 93
--- NOTE | 2022-04-28 08:05 | CPS ---
home unit off at time of visit.
--- NOTE | 2022-04-28 08:37 | NURSING ---
I called [facility] to get an ETA. P/U was set for 0800 I called at 0838 and they stated that the crew is 25min out.
[2022-04-28] MEDS: SACUBITRIL/VALSARTAN 24/26 MG TABLET 1 EACH PO (09:07)
[2022-04-28] MEDS: Omega-3 Acid Ethyl Esters 1 GM Capsule PO (09:07)
[2022-04-28] MEDS: Calcium Carb/Vitamin D 1 TABLET Tablet PO (09:07)
[2022-04-28] MEDS: APIXABAN 5 MG TABLET PO (09:09)
[2022-04-28] MEDS: Potassium Chloride Oral Tablet 10 MEQ PO (09:09)
[2022-04-28] MEDS: Pantoprazole Sodium 20 MG Tablet PO (09:10)
--- NOTE | 2022-04-28 09:43 | DS.PCM_ITS ---
Providers Date of Admission: 04/26/22 Date of Discharge: 04/28/22 Primary Care Physician: Alfonzo Cha Reason For Visit: TACHYCARDIA Diagnosis Discharge Diagnosis (1) Supraventricular tachycardia: Status: Acute Code(s): I47.1 - Supraventricular tachycardia Plan Patient is a 72-year-old lady with past medical history segment for paroxysmal atrial flutter fibrillation and SVT who presented to the emergency department with rate of 200. An assessment of PSVT made admitted to monitored bed. 1. PSVT ? Patient has history of previous SVT with previous ablation presented with tachycardia Per documentation on admission EKG was consistent with PSVT patient did receive metoprolol as well as Cardizem and admitted to monitored bed.Prior to patient being admitted arrangements were made for patient to be transferred to [facility] for EP evaluation ? 04/28/2022; patient was discharged to [facility] once bed was obtained 2. Paroxysmal A. fib ? Rate controlled on metoprolol also systemic anticoagulation with Eliquis 3. COPD ? Currently not in exacerbation did continue patient home bronchodilator regimen 4. Chronic congestive heart failure with reduced ejection fraction ? BNP on admission was 478 patient is Entresto did continue. Patient is on Lasix also did continue 5. Class II obesity with BMI of 59.0 ? Complicating care weight loss advised 6. Obstructive sleep apnea ? Consistent use of CPAP therapy at night encouraged 7. GERD ? Patient is on omeprazole at home suggested with Protonix in the hospital 8. DVT prophylaxis ? Patient on Eliquis Medications at Discharge Home Medications calcium carbonate 500 mg-vitamin D3 5 mcg (200 unit) tablet 1 tab PO DAILY 02/10/18 omega-3 fatty acids 1,000 mg capsule (Fish Oil Concentrate) 1,000 mg PO DAILY supplement 07/19/18 omeprazole 20 mg delayed release,disintegrating tablet 20 mg PO DAILY 05/18/20 apixaban 5 mg tablet (Eliquis) 5 mg PO BID #60 tabs 06/03/21 metoprolol succinate 25 mg tablet,extended release 24 hr 25 mg PO DAILY #30 tabs 06/03/21 sacubitril 24 mg-valsartan 26 mg tablet (Entresto) 1 tab PO BID #60 tabs 06/03/21 fluticasone fur. 100 mcg-umeclid 62.5 mcg-vilant 25 mcg inhalat.powder 1 inh inhalation DAILY #60 ea 08/05/21 potassium chloride 10 mEq tablet,extended release 10 meq PO DAILY 12/02/21 furosemide 40 mg tablet 40 mg PO DAILY CHF 04/26/22 Hospital Course Summary of Care Provided Minutes Spent on Discharge: 35 Physical Exam Narrative GENERAL: cooperative HEENT: Atraumatic; normocephalic EYES; Anicteric, Normal Conjunctiva NECK; supple, normal thyroid, RESPIRATORY: Diminished to auscultation CARDIOVASCULAR: Regular S1 S2, GI: soft, normoactive bowel sounds, : No Renal angle tenderness; EXTREMITIES: No edema, no clubbing, MUSCULOSKELETAL: no muscle wasting NEURO: Awake; no lateralizing signs. SKIN: No Rash PSYCH; Flat affect Weight / BMI Weight Weight: 156 kg Body Mass Index (BMI) 59.0 ABG / Lab / Microbiology Data Result Diagrams: 04/27/22 07:00 04/27/22 07:00 D/C Instructions Discharge Diet: No restrictions Discharge Activity: Return to Normal Activity Call your doctor if you observe: Fever of 101 or Higher, Shortness of breath, Fainting spells and Chest pain Meaningful Use Info Meaningful Use Diagnoses (Choose all that apply): None applicable Discharge Plan Admission Admit Date/Time: 04/26/22 20:59 Attending Provider: Timoteo Koch Primary Care Provider: Alfonzo Cha Consulting Providers: Senait London Instructions Additional Instructions / Restrictions: Pt is going to [facility] Discharge Orders/Prescriptions Prescriptions: No Action omega-3 fatty acids [Fish Oil Concentrate] 1,000 mg capsule 1,000 mg PO DAILY Eliquis 5 mg tablet 5 mg PO BID Qty: 60 12RF metoprolol succinate 25 mg tablet extended release 24 hr 25 mg PO DAILY Qty: 30 12RF Entresto 24-26 mg tablet 1 tab PO BID Qty: 60 11RF potassium chloride 10 mEq tablet extended release 10 meq PO DAILY dwjydnoimbn-uwilftweg-ggqnlpdz 100-62.5-25 mcg blister with device 1 inh INHALATION DAILY Qty: 60 11RF calcium carbonate-vitamin D3 1 TABLET tablet 1 tab PO DAILY 0RF omeprazole 20 MG tablet,disintegrat, delay rel 20 mg PO DAILY furosemide 40 mg tablet 40 mg PO DAILY Label Comments: take 1 tablet by mouth once daily for DIURETIC Referrals / Follow Up: Alfonzo Cha [Primary Care Provider] - Disposition Disposition (needs filled in before D/C Order can be placed): [facility] Charges/Coding Visit Charges Inpatient E&M: 56653 Disch Hosp >30min
--- NOTE | 2022-04-28 10:23 | PHA.DC.MR ---
Pharmacy Service has performed discharge medication reconciliation for this patient. No new medications at time of discharge medication review. Medications reviewed are from previously reported home medications. Home Medications calcium carbonate 500 mg-vitamin D3 5 mcg (200 unit) tablet 1 tab PO DAILY 02/10/18 omega-3 fatty acids 1,000 mg capsule (Fish Oil Concentrate) 1,000 mg PO DAILY supplement 07/19/18 omeprazole 20 mg delayed release,disintegrating tablet 20 mg PO DAILY 05/18/20 apixaban 5 mg tablet (Eliquis) 5 mg PO BID #60 tabs 06/03/21 metoprolol succinate 25 mg tablet,extended release 24 hr 25 mg PO DAILY #30 tabs 06/03/21 sacubitril 24 mg-valsartan 26 mg tablet (Entresto) 1 tab PO BID #60 tabs 06/03/21 fluticasone fur. 100 mcg-umeclid 62.5 mcg-vilant 25 mcg inhalat.powder 1 inh inhalation DAILY #60 ea 08/05/21 potassium chloride 10 mEq tablet,extended release 10 meq PO DAILY 12/02/21 furosemide 40 mg tablet 40 mg PO DAILY CHF 04/26/22 The patient's discharge medication list was reviewed for discrepancies and discrepancies were resolved.
== END 2022-04-28 09:50 | disposition short-term general hospital (02) | DRG 309 ==
LOC: ED 21:14 → PCU 21:59
PROVIDERS: Admitting Provider Student in an Organized Health Care Education/Training Program; Emergency Provider Student in an Organized Health Care Education/Training Program; Visit Provider Internal Medicine
DX: I47.1 Supraventricular tachycardia (principal); I50.22 Chronic systolic (congestive) heart failure; Z68.43 Body mass index [BMI] 50.0-59.9, adult; I11.0 Hypertensive heart disease with heart failure; J44.9 Chronic obstructive pulmonary disease, unspecified; E66.01 Morbid (severe) obesity due to excess calories; I48.0 Paroxysmal atrial fibrillation; I25.10 Atherosclerotic heart disease of native coronary artery without angina pectoris; K21.9 Gastro-esophageal reflux disease without esophagitis; G47.33 Obstructive sleep apnea (adult) (pediatric); Z79.01 Long term (current) use of anticoagulants; Z79.899 Other long term (current) drug therapy; Z87.891 Personal history of nicotine dependence
CPT/HCPCS: 36415; 71045; 80048; 83880; 84484; 85025; 93005; 94002; 99285; A4216; J1940

== ENCOUNTER → 2022-06-23 | Outpatient (CLI) | payer MEDICARE, MEDICAID, SELFPAY ==
--- NOTE | 2022-06-24 09:04 | PFT ---
INTRODUCTION: The patient is a 72-year-old female that presents for pulmonary function studies secondary to a diagnosis of high risk medication use. Respiratory therapy reported good patient effort. Bronchodilators were used during testing. INTERPRETATION: Forced expiration spirometry demonstrates the presence of a mild large airways obstructive ventilatory defect. There was no significant response to aerosolized bronchodilators. Spirograms are of good quality and plateau gradually indicating slow emptying of the lungs. Body plethysmography was performed and reveals lung volumes to be within normal limits. Diffusing capacity by single breath CO is reduced at 44% of predicted. IMPRESSION: Irreversible mild large airways obstructive ventilatory defect with symmetric reduction in diffusing capacity.
== END | disposition home or self-care (01) ==
LOC: PSN 10:21
PROVIDERS: Referring Provider Nurse Practitioner Gerontology; Visit Provider Nurse Practitioner Gerontology
DX: Z79.899 Other long term (current) drug therapy (principal)
CPT/HCPCS: 94060; 94726; 94729

== ENCOUNTER → 2023-02-28 | Outpatient (CLI) | payer MEDICARE, MEDICAID, SELFPAY | END | disposition home or self-care (01) | LOC: SL 13:15 | PROVIDERS: Visit Provider Internal Medicine Critical Care Medicine | DX: Z46.89 Encounter for fitting and adjustment of other specified devices (principal) ==

== ENCOUNTER 2023-03-08 04:43 | Emergency (ER) | payer MEDICARE, MEDICAID, SELFPAY ==
[2023-03-08] VITALS (12 sets, daily range): BP systolic 78–117; BP diastolic 44–78; PULSE 78–194; RESP 14–38; TEMP 36; O2SAT 90–100; BMI 63.6
--- NOTE | 2023-03-08 04:57 | RAD_ITS ---
INDICATION: chest pain EXAMINATION/TECHNIQUE: X-RAY - XR Chest 1 View AP portable. 6:00 AM COMPARISON: 04/26/2022 FINDINGS: LINES/DEVICES: None. LUNGS: No consolidation. Reticular opacities in the lung bases. No pneumothorax. MEDIASTINUM: Unremarkable. CARDIAC SILHOUETTE: Borderline enlarged. BONES AND SOFT TISSUES: No acute abnormalities. RAD/Chest 1 View (Portable) IMPRESSION: Bibasilar subsegmental atelectasis versus scarring. Electronically Signed: Kiara Plummer MD at 6:21 EST ,
[2023-03-08 05:05] LABS: Absolute Lymphocyte Count 2.56 X10^3/uL (0.83-4.51); Absolute Neutrophil Count 3.9 X10^3/uL (2.0-7.7); Basophil# 0.02 X10^3/uL; Basophil% 0.3 % (0-1); Eosinophil# 0.13 X10^3/uL; Eosinophils% 1.8 % (0-5); Hematocrit 45.2 % (37-47); Lymphocyte # 2.56 X10^3/ul (0.83-4.51); Lymphocyte % 35.2 % (19-41); Mean Corpuscular Volume 90.4 fL (81-99); Mean Platelet Vol. 9.2 fl (6.2-12.0); Monocyte# 0.67 X10^3/uL; Monocyte% 9.2 % (0-10); NRBC Flagged by Analyzer 0 % (0-5); Neutrophil # 3.87 X10^3/uL (2.7-7.7); Neutrophil % 53.2 % (47-70); Platelet Count 196 K/mm3 (150-450); RBC Distribution Width CV 13.1 % (11.6-14.6); RBC Distribution Width SD 43.4 fl (35.1-43.9); White Blood Count 7.3 K/mm3 (4.4-11.0)
[2023-03-08] MEDS: Adenosine 6 MG/2 ML Syringe IV (05:10)
--- NOTE | 2023-03-08 05:13 | EX.ED.DYSGE1 ---
HPI History of Present Illness Chief Complaint: Chest Pain Narrative Narrative: 73-year-old female past medical history of atrial fibrillation, on Eliquis, amiodarone, and metoprolol, used to see Dr. Hernandez, presents with high heart rate that began approximately 4 hours ago. She states that she noticed her heart rate going from the 60s to above 100 and then back down again. She states she was last in atrial fibrillation approximately a year and a half ago where she required cardioversion at the [facility]. At that time, she was told that if it happens again that she would most likely need a 6-hour ablation. She denies missing any dose of her medication recently. She might have intermittent left arm pain but no chest pain or shortness of breath. She called EMS because of a high heart rate. [facility] Medical History Atrial flutter Atrial flutter with rapid ventricular response CAD (coronary artery disease) Cardiomyopathy Chronic obstructive pulmonary disease Chronic systolic (congestive) heart failure Essential hypertension GERD (gastroesophageal reflux disease) History of cardioversion (~05/02/22) Hypoxia Longstanding persistent atrial fibrillation Morbid obesity CECILIA (obstructive sleep apnea) Paroxysmal atrial fibrillation Home Medications calcium carbonate 500 mg-vitamin D3 5 mcg (200 unit) tablet 1 tab PO DAILY 02/10/18 [Rx Last Taken 04/30/20] metoprolol succinate 25 mg tablet,extended release 24 hr 25 mg PO DAILY #30 tabs 06/03/21 [Rx Last Taken Unknown] potassium chloride 10 mEq tablet,extended release 10 meq PO DAILY 12/02/21 [History Last Taken Unknown] amiodarone 200 mg tablet 200 mg PO DAILY 05/06/22 [History Last Taken Unknown] fluticasone fur. 100 mcg-umeclid 62.5 mcg-vilant 25 mcg inhalat.powder 1 inh inhalation DAILY #60 ea 06/02/22 [Rx Last Taken Unknown] sacubitril 24 mg-valsartan 26 mg tablet (Entresto) 1 tab PO BID #60 tabs 06/02/22 [Rx Last Taken Unknown] apixaban 5 mg tablet (Eliquis) 5 mg PO BID #60 tabs 06/06/22 [Rx Last Taken Unknown] furosemide 40 mg tablet 40 mg PO DAILY CHF 01/19/23 [History Last Taken Unknown] omega 9-mun-jeb-fish oil 300 mg-1,000 mg capsule,delayed release (Fish Oil) 1 cap PO DAILY 03/08/23 [History Last Taken Unknown] omeprazole 20 mg capsule,delayed release 20 mg PO DAILY 03/08/23 [History Last Taken Unknown] Allergy/AdvReac Type Severity Reaction Status Date / Time adhesive Allergy blisters Verified 03/08/23 04:48 aspirin [ASA] AdvReac stomach Verified 03/08/23 04:48 burning and sick to stomach propoxyphene HCl AdvReac i get Verified 03/08/23 04:48 [From [place]] dizzy and pass out Family History Mother Heart disease Father Heart disease Surgical History History of appendectomy History of radiofrequency ablation procedure for cardiac arrhythmia (~05/08/20) History of total hysterectomy Status post left heart catheterization (LHC) (~05/11/18) Social History Smoking Status: Former smoker how long ago did patient quit smokin, 1ppd second hand exposure: Yes alcohol intake: current alcohol intake frequency: holidays/special occasions only Alcohol type: beer substance use type: does not use caffeine: No ROS ROS ED ROS Narrative Constitutional: No fever, no chills. HEENT: No sore throat. No neck pain. No loss of vision. No rhinorrhea. Cardiovascular: No chest pain. Positive elevated heart rate and palpitations. No pedal edema. Respiratory: No cough, no shortness of breath. Abdominal: No abdominal pain. No nausea. No vomiting. Genitourinary: No dysuria. No hematuria. Musculoskeletal: No myalgias. No arthralgias. Neurologic: No headaches. No dizziness. No lightheadedness. Skin: No rash. No change in color. Psychiatric: No depression. Mild anxiety. EXAM Physical Exam Narrative Exam Narrative: Afebrile. Vital signs noted. HEENT: Normocephalic. Atraumatic. PERRL, EOMI. Neck soft and supple. No point tenderness or step off. Cardiovascular: Positive tachycardia. No murmurs, rubs, or gallops appreciated. Respiratory: No tachypnea. Lungs clear to auscultation bilaterally. Gastrointestinal: Abdomen soft, nontender, with normoactive bowel sounds. No rebound or guarding. Neurological: Awake. Alert. Nonfocal, nonlateralizing. Skin: No rash. Normal color. No pallor. Musculoskeletal: No pedal edema. Full range of motion extremities. Const Vital Signs: 03/08/23 04:43 03/08/23 04:43 03/08/23 04:48 Temperature 96.8 F L Temperature Source Temporal Pulse Rate 191 H 194 H Pulse Rate [2] Pulse Rate [Sedation for Cardioversion for AFIB RVR] Respiratory Rate 23 H 26 H Respiratory Rate [2] Respiratory Rate [Sedation for Cardioversion for AFIB RVR] Respiratory Effort Normal Non-Labored Respiratory Pattern Normal Blood Pressure Blood Pressure [2] Blood Pressure Mean Pulse Ox 100 96 Oxygen Delivery Method Room Air Room Air Oxygen Delivery Method [2] Oxygen Delivery Method [Sedation for Cardioversion for AFIB RVR] Oxygen Flow Rate (L/min) Oxygen Flow Rate (L/min) [2] Oxygen Flow Rate (L/min) [Sedation for Cardioversion for AFIB RVR] 03/08/23 04:57 03/08/23 05:15 03/08/23 05:20 Temperature Temperature Source Pulse Rate 188 H 183 H Pulse Rate [2] Pulse Rate [Sedation for Cardioversion for AFIB RVR] Respiratory Rate 24 H 22 H Respiratory Rate [2] Respiratory Rate [Sedation for Cardioversion for AFIB RVR] Respiratory Effort Respiratory Pattern Blood Pressure 117/78 102/69 Blood Pressure [2] Blood Pressure Mean 91 80 Pulse Ox 95 96 92 Oxygen Delivery Method Room Air Room Air Room Air Oxygen Delivery Method [2] Oxygen Delivery Method [Sedation for Cardioversion for AFIB RVR] Oxygen Flow Rate (L/min) Oxygen Flow Rate (L/min) [2] Oxygen Flow Rate (L/min) [Sedation for Cardioversion for AFIB RVR] 03/08/23 05:32 03/08/23 05:36 03/08/23 05:38 Temperature Temperature Source Pulse Rate 138 H 171 H Pulse Rate [2] 86 Pulse Rate [Sedation for Cardioversion for AFIB RVR] 166 H Respiratory Rate 22 H 23 H Respiratory Rate [2] 23 H Respiratory Rate [Sedation for Cardioversion for AFIB RVR] 38 H Respiratory Effort Respiratory Pattern Blood Pressure 100/73 100/73 Blood Pressure [2] 78/44 L Blood Pressure Mean 82 Pulse Ox 95 95 Oxygen Delivery Method Nasal Cannula Nasal Cannula Oxygen Delivery Method [2] Nasal Cannula Oxygen Delivery Method [Sedation for Cardioversion for AFIB RVR] Nasal Cannula Oxygen Flow Rate (L/min) 2 2 Oxygen Flow Rate (L/min) [2] 4 Oxygen Flow Rate (L/min) [Sedation for Cardioversion for AFIB RVR] 2 03/08/23 05:44 03/08/23 05:49 03/08/23 05:54 Temperature Temperature Source Pulse Rate Pulse Rate [2] Pulse Rate [Sedation for Cardioversion for AFIB RVR] Respiratory Rate Respiratory Rate [2] Respiratory Rate [Sedation for Cardioversion for AFIB RVR] Respiratory Effort Respiratory Pattern Blood Pressure Blood Pressure [2] Blood Pressure Mean Pulse Ox Oxygen Delivery Method Nasal Cannula Nasal Cannula Nasal Cannula Oxygen Delivery Method [2] Oxygen Delivery Method [Sedation for Cardioversion for AFIB RVR] Oxygen Flow Rate (L/min) 4 4 4 Oxygen Flow Rate (L/min) [2] Oxygen Flow Rate (L/min) [Sedation for Cardioversion for AFIB RVR] MDM MDM MDM Narrative Medical decision making narrative: Per EKG prehospital she has a wide QRS tachycardia at approximately 192 bpm. EKG was obtained here as well which does show tachycardia at 192 bpm with a QRS duration of 160 ms. There is no significant change or STEMI noted on EKG. The only changes the tachycardia. In the differential diagnosis is SVT versus atrial fibrillation versus ventricular tachycardia. The patient is essentially asymptomatic with that and is not having crushing chest pain or shortness of breath currently. She did not even realize that she had that elevated of a heart rate. Initially as she is on amiodarone and metoprolol, I discussed patient with Dr. Canales who suggested administering adenosine to see if it could break the supraventricular tachycardia, and see the underlying rhythm. Afterwards, he had no further suggestion for an antiarrhythmic. 6 mg of the disease and was administered and it appeared that she had underlying atrial fibrillation as it was irregularly irregular. She will be given 3 doses of Lopressor 5 mg to see if there is any reduction in the heart rate. I do not feel that emergent cardioversion is indicated she is not symptomatic or hypotensive currently. Additionally, she states that she has not missed her Eliquis dosing within the last 3 weeks. I reviewed her laboratory work from today and she has a normal white count 7.3, hemoglobin normal at 14.0, hematocrit 45.2, platelet count normal at 196. Her sodium is normal at 143 with potassium slightly low at 3.3 which I think is nonspecific, creatinine slightly elevated at 1.32 with a BUN of 24. High-sensitivity troponin is 14. Glucose appropriately elevated at 145 with a normal anion gap of 9. I have no concern for diabetic ketoacidosis given this. 3 doses of Lopressor which had no significant reduction in her heart rate, and the lowest that it got was 150 bpm albeit temporary. Her blood pressure started declining but was still 102 systolic. I discussed with her the need for cardioversion with procedural sedation and she was agreeable. Procedure note: Patient was placed on cardioversion unit with pads placed in an AP diameter. Consent was signed. Timeout was performed. A total of 80 mg of propofol was used for adequate sedation. Defibrillator was charged 150 J and synchronized cardioversion was performed. She did have a transient drop in her blood pressure but IV fluids were continued. Upon awakening, she is now normotensive at her baseline. Repeat EKG was obtained and interpreted by myself independently as normal sinus rhythm at 83 bpm without ectopy or acute ST changes. No STEMI. Upon repeat examination she is awake, and alert. Chest x-ray in 1 view interpreted by myself independently shows no significant change from previous, no pneumothorax, no evidence of pneumonia. I do not feel antibiotics are indicated. Additionally, I reviewed the radiology report which confirms my independent interpretation. At this point in time, now that she is in sinus rhythm, I do not feel that she requires observation or admission. She will follow-up with her configuration analyst. She states she has an big data analytics lead at the [facility] who had told her that she will most likely require ablation. She will continue her previous medications. She is to return with elevated heart rate, new or worsening symptoms. Patient is agreeable to the plan. Disposition is discharged home in proved and stable condition. History & Record Review Discussion w/independent historian: Patient and Family Additional record(s) reviewed:: Prior ED visit and Prior labs Lab Data Attestation: I reviewed the patient's lab results. Labs: Laboratory Results - last 24 hr 03/08/23 04:55 WBC 7.3 RBC 5.00 Hgb 14.0 Hct 45.2 MCV 90.4 MCH 28.0 MCHC 31.0 L RDW Std Deviation 43.4 RDW Coeff of Liam 13.1 Plt Count 196 MPV 9.2 Immature Gran % (Auto) 0.300 Neut % (Auto) 53.2 Lymph % (Auto) 35.2 [place] % (Auto) 9.2 Eos % (Auto) 1.8 Baso % (Auto) 0.3 Absolute Neuts (auto) 3.9 Absolute Lymphs (auto) 2.56 Nucleated RBC % 0 Sodium 143 Potassium 3.3 L Chloride 106 Carbon Dioxide 28.0 Anion Gap 9 BUN 24 H Creatinine 1.32 H Estim Creat Clear Calc 30.46 Est GFR (MDRD) Af Amer 51 L Est GFR (MDRD) Non-Af 42 L BUN/Creatinine Ratio 18.2 Glucose 145 H Calcium 9.2 Magnesium 2.2 Troponin I High Sens 14 Radiography Diagnostic Testing: Clinical Impression(s) from Imaging Studies Chest X-Ray 03/08/23 04:57 IMPRESSION: Bibasilar subsegmental atelectasis versus scarring. Electronically Signed: Kiara Plummer MD at 6:21 EST Reading Location ID and State: [address] [place] [address] Tel , Service support , Procedures Procedural Sedation Sedation for Cardioversion for AFIB RVR: Consent Signed: Yes Any Problems With Anesthesia: No You/Your family experience fever (hyperthermia) w/anesthesia: Unknown Sedation medication: Propofol Route: IV Total Moderate Sedation Units: 5 Maliampati Score: Class III ASA Classification: III Discharge Plan Triage Chief Complaint: Chest Pain ED Provider: Tim Pyle Dx/Rx/DC Orders Clinical Impression: Encounter for cardioversion procedure, Paroxysmal atrial fibrillation Instructions: ED AFIB, ED Procedural Sedation, (Adult) Prescriptions: No Action metoprolol succinate 25 mg tablet extended release 24 hr 25 mg PO DAILY Qty: 30 12RF potassium chloride 10 mEq tablet extended release 10 meq PO DAILY Entresto 24-26 mg tablet 1 tab PO BID Qty: 60 11RF cgjslhcmxml-vcbmquwvf-tpxqjboy 100-62.5-25 mcg blister with device 1 inh INHALATION DAILY Qty: 60 11RF amiodarone 200 mg tablet 200 mg PO DAILY calcium carbonate-vitamin D3 1 TABLET tablet 1 tab PO DAILY 0RF furosemide 40 mg tablet 40 mg PO DAILY Patient Comments: take 1 tablet by mouth once daily for DIURETIC omega 9-vkl-cuk-fish oil [Fish Oil] 300-1,000 mg capsule,delayed release(DR/EC) 1 cap PO DAILY omeprazole 20 mg capsule,delayed release(DR/EC) 20 mg PO DAILY Patient Comments: take 1 capsule by mouth once daily Eliquis 5 mg tablet 5 mg PO BID Qty: 60 12RF Primary Care Provider: Alfonzo Cha Referrals: Alfonzo Cha [[facility]] - Activity Restrictions/Additional Instructions: Follow-up with your configuration analyst within the next week. You will need to see the electrophysiology configuration analyst at [facility] who performed cardioversion the last time. Disposition Disposition: Home, Self Care
[2023-03-08] MEDS: Metoprolol Tartrate 5 MG/5 ML Vial IV ×3 (05:20→05:26)
[2023-03-08 05:24] LABS: Anion Gap 9 (5-15); BUN 24 mg/dL (7-18); BUN/Creat Ratio 18.2 RATIO (10-20); Calcium,Total 9.2 mg/dL (8.5-10.1); Chloride 106 mmol/L (98-107); Creatinine, Serum 1.32 mg/dL (0.55-1.02); EST Glomerular Filtration Rate 42 mL/min (>60); Est Glom Filt Rate - Afr Amer 51 mL/min (>60); Estimated Creatinine Clearance 30.46 ml/min; Glucose 145 mg/dL (74-106); Magnesium 2.2 mg/dL (1.6-2.6); Potassium 3.3 mmol/L (3.5-5.1); Sodium Level 143 mmol/L (136-145); Troponin-I HS 14 pg/mL (3.0-54.0)
[2023-03-08] MEDS: Propofol 200 MG/20 ML Vial 20 MG IV BOLUS (05:37)
[2023-03-08] MEDS: Propofol 200 MG/20 ML Vial IV BOLUS (05:39)
== END 2023-03-08 06:54 | disposition home or self-care (01) ==
PROVIDERS: Emergency Provider Emergency Medicine; PCP Family Medicine; Visit Provider Emergency Medicine
DX: I48.0 Paroxysmal atrial fibrillation (principal); J44.9 Chronic obstructive pulmonary disease, unspecified; I50.22 Chronic systolic (congestive) heart failure; I42.9 Cardiomyopathy, unspecified; I11.0 Hypertensive heart disease with heart failure; I25.10 Atherosclerotic heart disease of native coronary artery without angina pectoris; G47.33 Obstructive sleep apnea (adult) (pediatric); Z87.891 Personal history of nicotine dependence; Z79.01 Long term (current) use of anticoagulants; Z79.899 Other long term (current) drug therapy
CPT/HCPCS: 96374; 96375; 96376; 99285; 92960; 71045; 80048; 83735; 84484; 85025; 93005; A4216; J0153

== ENCOUNTER 2023-03-09 22:20 | Inpatient (IN) | payer MEDICARE, MEDICAID, SELFPAY ==
[2023-03-09 22:22] VITALS: BP 140/130; PULSE 203; RESP 19; TEMP 36.4; O2SAT 93; BMI 63.5
--- NOTE | 2023-03-09 22:36 | EDS_ITS ---
HPI History of Present Illness Chief Complaint: Chest Pain Informant: patient and family Onset/Context/Timing Onset: Today and Hours Activity at onset: sudden Timing: Continuous Quality: Positive for Aching Location: Substernal and Left Chest Current Severity: Moderate Maximum Severity: Moderate Worsened By: Nothing Relieved By: Nothing Associated Symptoms: Positive for Dyspnea and Palpitations; Negative for Nausea, Vomiting, Diaphoresis, Cough, Fever, Lightheadedness or Acid Reflux Narrative Narrative: 73-year-old female history of A-fib, a flutter and COPD. On Eliquis. Was actually seen 2 nights ago for A-fib RVR need to be cardioverted. She is on amiodarone. Within the last hour or so she has had sudden onset of decelerated heart rate with chest pain. She has had no recent hospital admissions. Prior Similar Symptoms: Yes Recent Illness/Hospitalization: No CVD Risk Factors: Positive for Hypertension; Negative for Diabetes or Smoking PE Risk Factors: Negative for Recent Travel/Surgery, Recent Immobilization, Prior DVT or PE, Cancer or OCP + Smoking + >/=35 TAD Risk Factors: Negative for Marfan's Syndrome PFSH [facility] Medical History Atrial flutter Atrial flutter with rapid ventricular response CAD (coronary artery disease) Cardiomyopathy Chronic obstructive pulmonary disease Chronic systolic (congestive) heart failure Essential hypertension GERD (gastroesophageal reflux disease) History of cardioversion (~05/02/22) Hypoxia Longstanding persistent atrial fibrillation Morbid obesity CECILIA (obstructive sleep apnea) Paroxysmal atrial fibrillation Home Medications calcium carbonate 500 mg-vitamin D3 5 mcg (200 unit) tablet 1 tab PO DAILY 02/10/18 [Rx Last Taken 04/30/20] metoprolol succinate 25 mg tablet,extended release 24 hr 25 mg PO DAILY #30 tabs 06/03/21 [Rx Last Taken Unknown] potassium chloride 10 mEq tablet,extended release 10 meq PO DAILY 12/02/21 [History Last Taken Unknown] amiodarone 200 mg tablet 200 mg PO DAILY 05/06/22 [History Last Taken Unknown] fluticasone fur. 100 mcg-umeclid 62.5 mcg-vilant 25 mcg inhalat.powder 1 inh inhalation DAILY #60 ea 06/02/22 [Rx Last Taken Unknown] sacubitril 24 mg-valsartan 26 mg tablet (Entresto) 1 tab PO BID #60 tabs 06/02/22 [Rx Last Taken Unknown] apixaban 5 mg tablet (Eliquis) 5 mg PO BID #60 tabs 06/06/22 [Rx Last Taken Unknown] furosemide 40 mg tablet 40 mg PO DAILY CHF 01/19/23 [History Last Taken Unknown] omega 4-osg-ihm-fish oil 300 mg-1,000 mg capsule,delayed release (Fish Oil) 1 cap PO DAILY 03/08/23 [History Last Taken Unknown] omeprazole 20 mg capsule,delayed release 20 mg PO DAILY 03/08/23 [History Last Taken Unknown] Allergy/AdvReac Type Severity Reaction Status Date / Time adhesive Allergy blisters Verified 03/09/23 22:21 aspirin [ASA] AdvReac stomach Verified 03/09/23 22:21 burning and sick to stomach propoxyphene HCl AdvReac i get Verified 03/09/23 22:21 [From Darvon] dizzy and pass out Family History Mother Heart disease Father Heart disease Surgical History History of appendectomy History of radiofrequency ablation procedure for cardiac arrhythmia (~05/08/20) History of total hysterectomy Status post left heart catheterization (LHC) (~05/11/18) Social History Smoking Status: Former smoker how long ago did patient quit smokin, 1ppd second hand exposure: Yes alcohol intake: current alcohol intake frequency: holidays/special occasions o nly Alcohol type: beer substance use type: does not use caffeine: No ROS ROS ED ROS Narrative Denies recent illness. Chest pain tonight with palpitations and accelerated heart rate. Review of Systems ROS Unobtainable: Denies due to encephalopathy Constitutional Constitutional ED: Denies chills or fever(s) Eyes Eyes: Reports none ENT ENT ED: Denies ear pain Cardiovascular Cardiovascular: Reports as per HPI, chest pain, palpitations and racing heartbeat Respiratory/Chest Respiratory/Chest: Reports dyspnea; Denies cough Gastrointestinal Gastrointestinal: Denies abdominal pain Genitourinary Genitourinary ED: Denies dysuria Musculoskeletal Musculoskeletal: Denies arthralgias Integumentary Denies abscess Neurologic Neurologic: Denies headache(s) Psychiatric Psychiatric: Denies anxiety or depression Endocrine Endocrinology: Denies cold intolerance Hematologic/Lymphatic Hematologic/Lymphatic: Denies easy bleeding Allergic/Immunologic Allergic/Immunologic ED: Denies mouth swelling EXAM Physical Exam Narrative Exam Narrative: 73-year-old female vital signs show a blood pressure 140/130 which will be rechecked. Heart rate on the monitor is 190. H EENT exam unremarkable. Moist mucous membranes. Patient sitting upright in bed. Tolerating this well. Neck nontender no JVD. Lungs clear to auscultation. Heart tachycardic no appreciable murmur. Abdomen soft nontender. Moving all 4 extremities. Trace edema bilaterally. Calves nontender. Neurologically she is awake and alert with no focal motor deficits. Const Vital Signs: 03/09/23 22:22 03/09/23 22:22 03/09/23 22:39 Temperature 97.6 F L Temperature Source Temporal Pulse Rate 203 H Respiratory Rate 19 H Respiratory Effort Short of Breath Blood Pressure 140/130 H Blood Pressure Mean 133 Pulse Ox 93 96 Oxygen Delivery Method Nasal Cannula Nasal Cannula Oxygen Flow Rate (L/min) 3 3 03/09/23 22:41 03/10/23 00:19 Temperature Temperature Source Pulse Rate 98 77 Respiratory Rate 18 14 Respiratory Effort Blood Pressure 125/60 H 125/65 H Blood Pressure Mean 81 85 Pulse Ox 96 95 Oxygen Delivery Method Nasal Cannula Nasal Cannula Oxygen Flow Rate (L/min) 3 Positive well nourished and obese; Negative for cachectic, contractures or unkempt General Appearance ED: Negative for unkempt, cachectic, contractures or pallor Nutritional Appearance: obese; Negative for cachectic HEENT Reports moist mucous membranes normocephalic and atraumatic; Negative for trauma or tenderness Eyes PERRL and EOMs intact bilaterally General Eye ED: Negative for pale conjunctiva or scleral icterus Neck no lymphadenopathy, supple and no JVD General: Negative for tenderness Chest Wall inspection of chest normal and palpation of chest normal Chest: Negative for tenderness Resp normal respiratory effort and clear to auscultation bilaterally Effort and Inspection: Negative for respiratory distress Auscultation: Negative for rales, rhonchi or wheezes Cardio Negative for regular rate Rate: tachycardic Rhythm: abnormal rhythm GI normal to inspection, nondistended, normoactive bowel sounds, soft to palpation, non-tender, non-distended and no masses Auscultation: Negative for hyperactive bowel sounds Palpation: Negative for splenomegaly, mass or other Back/Spine no CVA tenderness and no thoracic nor lumbar tenderness General Back: Negative for CVA tenderness Cervical Spine: Negative for cervical spine tenderness Extremity normal to inspection General Extremety ED: Negative for edema General Extremity: Negative for edema Neuro oriented x3 and CN's II-XII intact bilaterally Sensorium / Orientation: awake, alert, oriented to person, oriented to place and oriented to time; Negative for confused, lethargic or stuporous Motor Exam: strength 5/5 throughout Psych mental status grossly normal Appearance: Negative for unkempt Attitude: No agitated Mood & Affect: Negative for depressed, anxious or tearful Skin no rashes or lesions noted and no wounds General Skin Exam: Negative for jaundice or pallor Rashes: No rashes noted Trauma: Negative for abrasion, laceration or puncture MDM MDM MDM Narrative Medical decision making narrative: 73-year-old female currently in A-fib RVR rate about 190. She will be started on Cardizem IV bolus. If need be we will do a drip. If need be medications are unsuccessful we may have to cardiovert her. She is already on anticoagulation. She undergo cardiac workup. Sitting this is a second episode in 2 days I suspect she will need to be admitted. Patient was treated with IV Cardizem. Shortly after that converted back to a sinus rhythm with a first-degree AV block with occasional PVCs. With a right bundle branch block. Which was seen on the prior EKG tonight. Repeat exam at 1:13 AM patient doing well. After her IV Cardizem her heart rates currently in the 70s. She is resting comfortably. We went over her labs. Patient is concerned this is a second time she is gone in A-fib RVR in the last 48 hours. She to be cardioverted 2 days ago. She does not feel comfortable being discharged home. I will speak to the hospitalist about admission. They can observe her overnight on monitor and discussed with cardiology if they need to adjust or change any of her medications. History & Record Review Discussion w/independent historian: Patient Additional record(s) reviewed:: Prior inpatient record, Prior outpatient record, Prior ED visit and Prior labs Lab Data Attestation: I reviewed the patient's lab results. Lab results narrative: CBC is unremarkable. White count of 8. H&H 14 and 44. Platelets 262. Electrolytes show a gap of 5 BUN 27 creatinine 1.7. Glucose 132. Troponin is normal at 25. Repeat 2-hour troponin was 36. Labs: Laboratory Results - last 24 hr 03/09/23 03/10/23 22:30 01:02 WBC 8.7 RBC 4.87 Hgb 14.3 Hct 44.6 MCV 91.6 MCH 29.4 MCHC 32.1 RDW Std Deviation 44.0 H RDW Coeff of Liam 13.2 Plt Count 262 MPV 10.1 Immature Gran % (Auto) 0.200 Neut % (Auto) 49.4 Lymph % (Auto) 39.0 [place] % (Auto) 9.7 Eos % (Auto) 1.4 Baso % (Auto) 0.3 Absolute Neuts (auto) 4.3 Absolute Lymphs (auto) 3.40 Nucleated RBC % 0 Sodium 141 Potassium 4.3 Chloride 109 H Carbon Dioxide 27.0 Anion Gap 5 BUN 27 H Creatinine 1.78 H Estim Creat Clear Calc 22.59 Est GFR (MDRD) Af Amer 36 L Est GFR (MDRD) Non-Af 30 L BUN/Creatinine Ratio 15.2 Glucose 132 H Calcium 9.0 Troponin I High Sens 25 36 Radiography Chest X-Ray - ED: 1 View, Read by ED Physician, Read by Radiologist, Normal, Heart, Lungs, Mediastinum, Bony Structures, No Acute Disease and Chronic Changes Diagnostic Testing: Clinical Impression(s) from Imaging Studies Chest X-Ray 03/09/23 22:45 IMPRESSION: Right basilar and left perihilar atelectasis versus residual infiltrate. No pleural effusion or pneumothorax. Electronically Signed: Jinny Díaz MD at 23:29 EST , Chest x-ray, portable, single view interpreted both by myself and the radiologist shows no acute process. Chronic changes. Atelectasis. Rhythm Strip Rhythm Strip: A-fib Rate: 198 Ectopy: None EKG Initial EKG: Attestation: I personally reviewed and interpreted this EKG as follows: Interpretation: RBBB and LAFB Comments: Tachycardia rate of 198. I suspect this is either A-fib RVR or atrial flutter. Patient has a right bundle branch block. No acute signs of MS. Also left anterior fascicular block. Prior EKG tracings: available for review Follow-up EKG: Attestation: I personally reviewed and interpreted this EKG as follows: Interpretation: Sinus Rhythm and No Acute Injury Pattern Comments: Sinus rhythm rate is 75. Both the right bundle branch block and left anterior fascicular block. No acute signs of MS. Occasional PVCs. Prior EKG tracings: available for review Prior: Changed Discharge Plan Dx/Rx/DC Orders Clinical Impression: Chronic anticoagulation, Chest pain, Cardiomyopathy, Atrial fibrillation with rapid ventricular response Disposition Disposition: Acute Care Hospital [facility]
[2023-03-09] MEDS: dilTIAZem 25 MG/5 ML Vial IV BOLUS (22:38)
[2023-03-09 22:39] VITALS: O2SAT 96
[2023-03-09 22:39] LABS: Absolute Neutrophil Count 4.3 X10^3/uL (2.0-7.7); Basophil# 0.03 X10^3/uL; Basophil% 0.3 % (0-1); Eosinophil# 0.12 X10^3/uL; Eosinophils% 1.4 % (0-5); Hematocrit 44.6 % (37-47); Hemoglobin 14.3 g/dL (12.0-15.0); Mean Corp Hgb Conc 32.1 g/dL (32-36); Mean Corpuscular Hgb 29.4 pg (27.0-32.0); Mean Corpuscular Volume 91.6 fL (81-99); Mean Platelet Vol. 10.1 fl (6.2-12.0); Monocyte# 0.85 X10^3/uL; Monocyte% 9.7 % (0-10); NRBC Flagged by Analyzer 0 % (0-5); Neutrophil % 49.4 % (47-70); Platelet Count 262 K/mm3 (150-450); RBC Distribution Width CV 13.2 % (11.6-14.6); Red Blood Count 4.87 M/mm3 (4.2-5.4); White Blood Count 8.7 K/mm3 (4.4-11.0)
[2023-03-09 22:41] VITALS: BP 125/60; PULSE 98; RESP 18; O2SAT 96
--- NOTE | 2023-03-09 22:45 | RAD_ITS ---
STUDY: X-RAY CHEST REASON FOR EXAM: Female, 73 years old. chest pain TECHNIQUE: Single AP portable view of the chest. COMPARISON: 03/08/2023. FINDINGS: Right basilar and left perihilar atelectasis versus residual infiltrates. Otherwise clear lungs. There is no demonstrated pleural abnormality. Mild to moderate cardiomegaly. Normal mediastinum and angi. Normal visualized pulmonary arteries. Normal visualized aortic arch and descending thoracic aorta. There are diffuse degenerative changes of the visualized thoracic spine. Normal visualized ribs, clavicles, and shoulders. There is no demonstrated abnormality of the visualized soft tissue structures of the upper abdomen. RAD/Chest 1 View (Portable) IMPRESSION: Right basilar and left perihilar atelectasis versus residual infiltrate. No pleural effusion or pneumothorax. Electronically Signed: Jinny Díaz MD at 23:29 [facility] [[email or web address]] ,
[2023-03-09 23:00] LABS: Anion Gap 5 (5-15); BUN 27 mg/dL (7-18); BUN/Creat Ratio 15.2 RATIO (10-20); Chloride 109 mmol/L (98-107); Creatinine, Serum 1.78 mg/dL (0.55-1.02); EST Glomerular Filtration Rate 30 mL/min (>60); Est Glom Filt Rate - Afr Amer 36 mL/min (>60); Estimated Creatinine Clearance 22.59 ml/min; Glucose 132 mg/dL (74-106); Potassium 4.3 mmol/L (3.5-5.1); Sodium Level 141 mmol/L (136-145); Troponin-I HS (w/2H Reflex) 25 pg/mL (3.0-54.0)
[2023-03-10] VITALS (11 sets, daily range): BP systolic 101–143; BP diastolic 63–88; PULSE 61–106; RESP 14–20; TEMP 36.2–36.6; O2SAT 92–96; BMI 62.3
[2023-03-10 00:36] LABS: Reflex Troponin-HS? (from REC) Y
[2023-03-10 01:24] LABS: Troponin-I HS 36 pg/mL (3.0-54.0)
--- NOTE | 2023-03-10 02:13 | PCM.HP.STD ---
[facility] - General General Date of Admission: 03/10/23 Date of Service: 03/10/23 Chief Complaint: A-fib with RVR HPI Narrative YAO FLORES, is a 73 F who presents to the ED with concerns of tachycardia and chest pain with a known history of nonischemic cardiomyopathy and A-fib. In the ED she was found to be having A-fib with RVR and was given bolus of IV Cardizem. With this she cardioverted back to sinus rhythm with first-degree heart block. She had a similar episode 2 days back and the family was apprehensive regarding the recurrent episodes of A-fib with RVR and would like her to be monitored overnight. She has a long history of A-fib and was previously being seen at [facility]. Underwent DCCV on 05/05/2020 at [facility]; status post EPS/RFA on 05/08/[address] Castañeda; was being planned for repeat ablation in case of similar repeated episodes of A-fib. She recently followed up with cardiology at [facility]. Her medical therapy was continued with amiodarone, metoprolol and Eliquis. At present she has no concerns, no fever, bleeding, abdominal pain, changes in appetite. [facility] Medical History Atrial flutter Atrial flutter with rapid ventricular response CAD (coronary artery disease) Cardiomyopathy Chronic obstructive pulmonary disease Chronic systolic (congestive) heart failure Essential hypertension GERD (gastroesophageal reflux disease) History of cardioversion (~05/02/22) Hypoxia Longstanding persistent atrial fibrillation Morbid obesity CECILIA (obstructive sleep apnea) Paroxysmal atrial fibrillation Home Medications calcium carbonate 500 mg-vitamin D3 5 mcg (200 unit) tablet 1 tab PO DAILY 02/10/18 [Rx Last Taken 04/30/20] metoprolol succinate 25 mg tablet,extended release 24 hr 25 mg PO DAILY #30 tabs 06/03/21 [Rx Last Taken Unknown] potassium chloride 10 mEq tablet,extended release 10 meq PO DAILY 12/02/21 [History Last Taken Unknown] amiodarone 200 mg tablet 200 mg PO DAILY 05/06/22 [History Last Taken Unknown] fluticasone fur. 100 mcg-umeclid 62.5 mcg-vilant 25 mcg inhalat.powder 1 inh inhalation DAILY #60 ea 06/02/22 [Rx Last Taken Unknown] sacubitril 24 mg-valsartan 26 mg tablet (Entresto) 1 tab PO BID #60 tabs 06/02/22 [Rx Last Taken Unknown] apixaban 5 mg tablet (Eliquis) 5 mg PO BID #60 tabs 06/06/22 [Rx Last Taken Unknown] furosemide 40 mg tablet 40 mg PO DAILY CHF 01/19/23 [History Last Taken Unknown] omega 6-smb-mwe-fish oil 300 mg-1,000 mg capsule,delayed release (Fish Oil) 1 cap PO DAILY 03/08/23 [History Last Taken Unknown] omeprazole 20 mg capsule,delayed release 20 mg PO DAILY 03/08/23 [History Last Taken Unknown] Allergy/AdvReac Type Severity Reaction Status Date / Time adhesive Allergy blisters Verified 03/09/23 22:21 aspirin [ASA] AdvReac stomach Verified 03/09/23 22:21 burning and sick to stomach propoxyphene HCl AdvReac i get Verified 03/09/23 22:21 [From Darvon] dizzy and pass out Family History Mother Heart disease Father Heart disease Surgical History History of appendectomy History of radiofrequency ablation procedure for cardiac arrhythmia (~05/08/20) History of total hysterectomy Status post left heart catheterization (LHC) (~05/11/18) Social History Smoking Status: Former smoker how long ago did patient quit smokin, 1ppd second hand exposure: Yes alcohol intake: current alcohol intake frequency: holidays/special occasions only Alcohol type: beer substance use type: does not use caffeine: No ROS Constitutional Constitutional: Denies anorexia, change in weight, chills, fatigue, fever(s), malaise, night sweats, weakness or other Eyes Eyes: Denies blurry vision, change in eye color, change in vision, discharge from eye(s), double vision, erythema, eye pain, loss of vision or other Cardiovascular Cardiovascular: Reports lightheadedness and rapid heart rate; Denies chest pain, claudication, dyspnea on exertion, edema, orthopnea, palpitations, paroxysmal nocturnal dyspnea, syncope or other Respiratory/Chest Respiratory/Chest: Denies cough, dyspnea, excessive phlegm production, hemoptysis, productive cough, shortness of breath at rest, shortness of breath with exertion, wheezing or other Genitourinary Genitourinary: Denies burning urination, difficulty urinating, dysuria, hematuria, nocturia, urinary frequency, urinary hesitancy, urinary incontinence, urinary urgency or other Musculoskeletal Musculoskeletal: Denies arthralgias, back pain, joint pain, joint stiffness, joint swelling, myalgias, neck pain or other Vital Signs Vital Signs Vital Signs: 03/09/23 22:22 03/09/23 22:22 03/09/23 22:39 Temperature 97.6 F L Temperature Source Temporal Pulse Rate 203 H Respiratory Rate 19 H Respiratory Effort Short of Breath Blood Pressure 140/130 H Blood Pressure Mean 133 Pulse Ox 93 96 Oxygen Delivery Method Nasal Cannula Nasal Cannula Oxygen Flow Rate (L/min) 3 3 03/09/23 22:41 03/10/23 00:19 03/10/23 01:59 Temperature Temperature Source Pulse Rate 98 77 Respiratory Rate 18 14 20 H Respiratory Effort Blood Pressure 125/60 H 125/65 H 101/88 H Blood Pressure Mean 81 85 92 Pulse Ox 96 95 95 Oxygen Delivery Method Nasal Cannula Nasal Cannula Nasal Cannula Oxygen Flow Rate (L/min) 3 2 03/10/23 02:03 Temperature 97.6 F L Temperature Source Pulse Rate 69 Respiratory Rate 20 H Respiratory Effort Blood Pressure 101/88 H Blood Pressure Mean 92 Pulse Ox 96 Oxygen Delivery Method Oxygen Flow Rate (L/min) Weight Weight: 358 lb 11.073 oz Body Mass Index (BMI) 63.5 Results Medical Records Data Attestation: I reviewed the patient's medical records Lab / Micro Data 03/09/23 22:30 03/09/23 22:30 Labs: Laboratory Results - last 24 hr 03/09/23 22:30: WBC 8.7, RBC 4.87, Hgb 14.3, Hct 44.6, MCV 91.6, MCH 29.4, MCHC 32.1, RDW Std Deviation 44.0 H, RDW Coeff of Liam 13.2, Plt Count 262, MPV 10.1, Immature Gran % (Auto) 0.200, Neut % (Auto) 49.4, Lymph % (Auto) 39.0, [place] % (Auto) 9.7, Eos % (Auto) 1.4, Baso % (Auto) 0.3, Absolute Neuts (auto) 4.3, Absolute Lymphs (auto) 3.40, Nucleated RBC % 0, Sodium 141, Potassium 4.3, Chloride 109 H, Carbon Dioxide 27.0, Anion Gap 5, BUN 27 H, Creatinine 1.78 H, Estim Creat Clear Calc 22.59, Est GFR (MDRD) Af Amer 36 L, Est GFR (MDRD) Non-Af 30 L, BUN/Creatinine Ratio 15.2, Glucose 132 H, Calcium 9.0, Troponin I High Sens 25 03/10/23 01:02: Troponin I High Sens 36 Rhythm Strip Rhythm Strip: A-fib Rate: 198 Ectopy: None Imagaing Radiology Impression Chest X-Ray 03/09/23 22:45 IMPRESSION: Right basilar and left perihilar atelectasis versus residual infiltrate. No pleural effusion or pneumothorax. Electronically Signed: Jinny Díaz MD at 23:29 EST , Assessment & Plan Assessment/Plan (1) Atrial fibrillation with rapid ventricular response: PLAN: Currently in sinus rhythm. No triggers identified. She has underlying nonischemic cardiomyopathy. Will consult cardiology tomorrow morning for any changes in her regimen. She was previously prescribed ablation therapy at [facility] and may reconsider following up with them. (2) Chest pain: PLAN: Was in the setting of ongoing atrial fibrillation, no active chest pain at this time. No concerns regarding ischemia present. (3) Encounter for cardioversion procedure: PLAN: Did not require any infusion therapies. Cardioverted with Cardizem bolus. Already on chronic anticoagulation. Will transfer to progressive care unit for telemetry monitoring. Charges/Coding Visit Charges Inpatient E&M: 29977 Init Hosp L2
[2023-03-10 06:38] LABS: Hematocrit 40.8 % (37-47); Hemoglobin 12.6 g/dL (12.0-15.0); Mean Corp Hgb Conc 30.9 g/dL (32-36); Mean Corpuscular Hgb 28.3 pg (27.0-32.0); Mean Corpuscular Volume 91.7 fL (81-99); Mean Platelet Vol. 9.8 fl (6.2-12.0); Platelet Count 182 K/mm3 (150-450); RBC Distribution Width CV 13.1 % (11.6-14.6); RBC Distribution Width SD 44.1 fl (35.1-43.9); Red Blood Count 4.45 M/mm3 (4.2-5.4); White Blood Count 5.5 K/mm3 (4.4-11.0)
[2023-03-10 07:19] LABS: ALB/GLOB Ratio 0.9 RATIO (0.9-2.4); AST(SGOT) 22 U/L (15-37); Alanine Aminotransfer ALT/SGPT 30 U/L (13-56); Alkaline Phosphatase 106 U/L (45-117); Anion Gap 4 (5-15); BUN 25 mg/dL (7-18); BUN/Creat Ratio 18.4 RATIO (10-20); Calcium,Total 8.9 mg/dL (8.5-10.1); Chloride 111 mmol/L (98-107); Creatinine, Serum 1.36 mg/dL (0.55-1.02); EST Glomerular Filtration Rate 40 mL/min (>60); Est Glom Filt Rate - Afr Amer 49 mL/min (>60); Estimated Creatinine Clearance 29.57 ml/min; Globulin 3.4 g/dL (2.2-4.2); Glucose 128 mg/dL (74-106); Potassium 3.3 mmol/L (3.5-5.1); Protein, Total 6.4 g/dL (6.4-8.2); Sodium Level 142 mmol/L (136-145)
--- NOTE | 2023-03-10 07:47 | ECHOCS_ITS ---
Reason For Study: Afib, Aflutter Procedure This was a 2D Doppler, Color Flow transthoracic echocardiogram. Contrast injection was performed. The study was technically difficult. Exam performed portable in patient room. Left Ventricle Normal LV size. Mild concentric left ventricular hypertrophy. The left ventricular ejection fraction is 65 %. Stage 1 diastolic dysfunction. Right Ventricle Normal right ventricle. Atria The left atrium is mildly enlarged. Normal right atrium. Mitral Valve Mild mitral annular calcification. Trivial mitral valve insufficiency. Tricuspid Valve Trivial tricuspid valve insufficiency. Unable to estimate RV systolic pressure due to insufficient tricuspid regurgitant envelope. Aortic Valve The aortic valve is not well visualized in the short axis view. Pulmonic Valve The pulmonic valve is not well visualized. Great Vessels Normal sized aortic root. Pericardium/Pleural Trivial pericardial effusion. Epicardial fat. Medication Diluted definity 2ml given slow IV push to enhance endocardial definition. MMode/2D Measurements & Calculations LVIDd: 3.7 cm IVSd: 1.2 cm Ao root diam: 3.1 cm LVIDs: 2.2 cm LVPWd: 1.1 cm RVDd: 2.3 cm FS: 41.8 % LAV(MOD-bp): 44.5 ml LVAd ap4: 25.1 cm2 SV(MOD-sp4): 39.7 ml LAV(MOD-bp) Indexed: 18.1 ml/m2 LVLd ap4: 6.9 cm LAV(MOD-sp2): 43.7 ml EDV(MOD-sp4): 76.1 ml LAV(MOD-sp4): 44.2 ml EDV(sp4-el): 77.6 ml LVAs ap4: 15.9 cm2 LVLs ap4: 5.9 cm ESV(MOD-sp4): 36.4 ml ESV(sp4-el): 36.4 ml EF(MOD-sp4): 52.2 % EF(sp4-el): 53.1 % SV(sp4-el): 41.2 ml LA A4 area: 17.9 cm2 LA dimension(2D): 4.3 cm RA A4 area: 13.7 cm2 TAPSE: 1.7 cm Time Measurements MV dec time: 0.28 sec Doppler Measurements & Calculations MV E max amrio: 60.7 cm/sec Lat Peak E' Mario: 4.5 cm/sec Med Peak E' Mario: 5.2 cm/sec MV A max mario: 105.2 cm/sec E/E' lat: 13.4 E/E' med: 11.6 MV E/A: 0.58 MV V2 max: 116.0 cm/sec MV dec slope: 220.6 cm/sec2 Ao V2 max: 157.6 cm/sec MV max P.4 mmHg Ao max P.9 mmHg MV V2 mean: 71.6 cm/sec Ao V2 mean: 127.5 cm/sec MV mean P.3 mmHg Ao mean P.8 mmHg MV V2 VTI: 25.6 cm Ao V2 VTI: 29.6 cm LV V1 max: 126.0 cm/sec PA V2 max: 77.3 cm/sec LV V1 max P.4 mmHg ECHO/Echo Complete W/ Contrast Interpretation Summary Mild concentric left ventricular hypertrophy. The left ventricular ejection fraction is 65 %. Stage 1 diastolic dysfunction. The left atrium is mildly enlarged. The study was technically difficult. Ordering Physician: Ines Wallace Referring Physician: Alfonzo Cha Performed By: Nivia Bond, SEVEN, RVT
--- NOTE | 2023-03-10 08:08 | PCM.HOSP.N ---
Hospitalist Note Mrs. Ibarra is a 73-year-old female who presented to the emergency department at [facility] on 03/10/2023 early in the morning complaining of tachycardia and chest pain. The patient has a known history of nonischemic cardiomyopathy and persistent atrial fibrillation. She has a longstanding history of A-fib and was previously seen at [facility] and required radiofrequency ablation in 2020. She was evaluated at [facility] in 2022 and was noted to be in A-fib with RVR at that time they loaded with IV amiodarone and arrange for cardioversion in April 2022. She was later on discharged home on amiodarone with instructions to follow-up with Dr. Callejas in 6 to 8 weeks for consideration of repeat ablation. She presented here on 03/08/2023 to the emergency department A-fib with RVR and underwent cardioversion at that time. She reverted back to normal sinus rhythm and was discharged home however she had new symptoms early this morning and came to emergency department. Upon presentation her heart rate was 203 but she quickly cardioverted back to normal sinus rhythm. Family is apprehensive about her going back home since she had recurrent issues with A-fib with RVR and a 24-hour period and request that she be monitored overnight. She was admitted to the PCU. I have ordered a repeat echocardiogram as well as a cardiology consult. The patient may need to be referred back to EP to be reconsidered for ablation. Interestingly, her med rec and patient was performed it does not appear she is on amiodarone at this time. Her last cardiology note on 01/19/2023 had her on 200 mg daily so I will go ahead and restart this at this point. I do anticipate discharge home in the next 24 hours with recommendations to follow-up with EP down in [place] as soon as able.
[2023-03-10 08:20] LABS: Thyroid Stim Hormone (TSH) 4.25 uIU/mL (0.358-3.74)
[2023-03-10] MEDS: Pantoprazole Sodium 20 MG Tablet PO (08:47)
[2023-03-10] MEDS: SACUBITRIL/VALSARTAN 24/26 MG TABLET 1 EACH PO (08:47)
[2023-03-10] MEDS: APIXABAN 5 MG TABLET PO (08:47)
[2023-03-10] MEDS: Metoprolol(XL)Succ 25 MG Tablet PO (08:47)
[2023-03-10] MEDS: Calcium Carb/Vitamin D 1 TABLET Tablet PO (08:47)
[2023-03-10] MEDS: Furosemide 40 MG Tablet PO (08:48)
[2023-03-10] MEDS: Potassium Chloride Oral Tablet 10 MEQ PO (08:48)
[2023-03-10] MEDS: Amiodarone 200 MG Tablet PO (08:52)
[2023-03-10] MEDS: Potassium Chloride Oral Tablet 20 MEQ 40 MEQ PO (08:53)
[2023-03-10] MEDS: Flu Vacc QS2023-24(65YR UP)/PF 240 MCG/0.7 ML Syringe IM (08:53)
[2023-03-10 10:05] LABS: International Normalized Ratio 1.3
[2023-03-10] MEDS: Amiodarone 150 MG in Dextrose 5%-Water (100mL Bag) 100 ML 600 MG IV BOLUS (11:56)
--- NOTE | 2023-03-10 13:40 | CASEMGMT ---
ANGEL NOVAK assessment: RN SCARLET to room to meet with patient for initial transition planning/care coordination assessment. ANGEL NOVAK introduced self and role at [facility], pt voices understanding and consents to assessment at this time. Pt is sitting up in chair in room in no distress at this time. Pt is A/O at this time and answers all questions appropriately at this time. Care providers, pharmacy, and demographics verified/updated at this time. PCP: Dr Cha Specialists: Dr Newman and Ramonita Arce, EXECUTIVE ASSISTANT TO GENERAL COUNSEL--pulmonology, [facility]G/cardiology Preferred Pharmacy: [facility] Insurance: [facility] Dual Prescription Benefit: Yes LNOK: Jessica Ibarra, daughter. Son, Cornelio Living Arrangements: Pt lives with daughter on main level of home with 4 steps in and states no concerns at home at this time. Transportation: daughter, BRENDAN DME: Pt has the following DME: shower chair, grab bars, raised toilet seat, walker (has but does not use it), BP machine, medical alert, nebulizer, pulse ox, and home oxygen @ 2 L/M PRN during the day and 8 L/M bleed-in @ HS through PAP thru [employer]. HHC/SNF: Pt states no hx of HHC or SNF. Pt has had CCN in the past. Pt wishes to return home and declines wanting HHC or CCN. Pt voices no concerns about going home at time of discharge. Pt voices no further concerns/needs a this time. CM to follow for any further discharge planning/needs. Advised pt/family to ask for CM if any further questions/concerns/needs arise, voices understanding. Plan: Home Radha ARTIS RN, CM
--- NOTE | 2023-03-10 15:14 | DS.PCM_ITS ---
Providers Date of Admission: 03/10/23 Date of Discharge: 03/10/23 Primary Care Physician: Dr. Alfonzo Cha MD Consultations 03/10/23 07:50 Consult: Cardiology Routine Consulting Provider: Bela Canales Reason for Consult: recurrent afib with rvr now NSR-->?Amio EMERGENT Consult: No MD Notified: Yes Date Notified: 03/10/23 Time Notified: 08:51 Method of Notification: Text Reason For Visit: AFIB Diagnosis Discharge Diagnosis (1) Atrial fibrillation with rapid ventricular response: Status: Acute Code(s): I48.91 - Unspecified atrial fibrillation (2) Chest pain: Status: Acute Code(s): R07.9 - Chest pain, unspecified (3) Encounter for cardioversion procedure: Status: Acute Code(s): Z01.89 - Encounter for other specified special examinations Medications at Discharge Home Medications calcium carbonate 500 mg-vitamin D3 5 mcg (200 unit) tablet 1 tab PO DAILY supplement 02/10/18 metoprolol succinate 25 mg tablet,extended release 24 hr 25 mg PO DAILY #30 tabs 06/03/21 potassium chloride 10 mEq tablet,extended release 10 meq PO DAILY supplement 12/02/21 sacubitril 24 mg-valsartan 26 mg tablet (Entresto) 1 tab PO BID heart #60 tabs 06/02/22 apixaban 5 mg tablet (Eliquis) 5 mg PO BID #60 tabs 06/06/22 furosemide 40 mg tablet 40 mg PO DAILY CHF 01/19/23 omega 0-lyb-agr-fish oil 300 mg-1,000 mg capsule,delayed release (Fish Oil) 1 cap PO DAILY 03/08/23 omeprazole 20 mg capsule,delayed release 20 mg PO DAILY 03/08/23 amiodarone 200 mg tablet 200 mg PO BID #40 tabs 03/10/23 Hospital Course Operations None Procedures 2-D Echocardiogram and EKG Summary of Care Provided Minutes Spent on Discharge: 38 Hospital Course: Mrs. Ibarra is a 73-year-old female who presented to the emergency department at [facility] on 03/10/2023 early in the morning complaining of tachycardia and chest pain. The patient has a known history of nonischemic cardiomyopathy and persistent atrial fibrillation. She has a longstanding history of A-fib and was previously seen at [facility] and required radiofrequency ablation in 2020. She was evaluated at [facility] in 2022 and was noted to be in A-fib with RVR at that time they loaded with IV amiodarone and arrange for cardioversion in April 2022. She was later on discharged home on amiodarone with instructions to follow-up with Dr. Callejas in 6 to 8 weeks for consideration of repeat ablation. She presented here on 03/08/2023 to the emergency departmen t A-fib with RVR and underwent cardioversion at that time. She reverted back to normal sinus rhythm and was discharged home however she had new symptoms early this morning and came to emergency department. Upon presentation, her heart rate was 203 but she quickly cardioverted back to normal sinus rhythm. Family was apprehensive about her going back home since she had recurrent issues with A-fib with RVR and a 24-hour period and request that she be monitored overnight. She was admitted to the PCU. By the time of my evaluation she had reverted back to normal sinus rhythm. I reviewed her previous notes and it appears she was on amiodarone 200 mg daily however it was not on her current med reconciliation. I discussed this with her and she stated she was not taking it. She did state that she had 200 mg tablets at home that she thought may be the amiodarone. She was not clear as to why she was not taking this medication at the time of presentation. I loaded her with 150 mg of IV amiodarone and then started amiodarone oral 200 mg twice daily. The plan will be to continue this for 7 days and then revert back to the 200 mg dosing. Prescription was sent to the local pharmacy for this. We did obtain an echocardiogram which demonstrated an EF of 65% with mild concentric LVH and stage I diastolic dysfunction. She does have a mildly enlarged left atrium. I discussed the case with cardiology and they agreed with the above management and indicated that they can see her in the office next week. Unfortunately, we were unable to make a follow-up appointment as the office is closed today however I have instructed her to follow-up and make a phone call on Monday morning to get into see Dr. Canales next week. She may need a recurrent ablation however I suspect we will need to see how she responds with regards to rate control and rhythm control on the amiodarone. She will maintain her apixaban 5 mg p.o. twice daily and her metoprolol 25 mg daily. I have instructed her to monitor her heart rates as she does become symptomatic when she is in A-fib. She was having paroxysmal A-fib at the time of discharge however heart rates were fairly well-controlled and less than 110 on a regular basis. I did discuss with her that she may go in and out of A-fib but she needed to come back to the emergency department if she persistently stated heart rate greater than 120 after 30 minutes or was markedly symptomatic. She voiced understanding and indicated she would make an appo intment on Monday. Prescriptions for her amiodarone was sent to local pharmacy prior to discharge. Discharge diagnoses: Paroxysmal A-fib with RVR Stage I diastolic dysfunction Hypertension GERD History of nonischemic cardiomyopathy-resolved CECILIA Morbid obesity Physical Exam Const alert, oriented x3, no apparent distress, no limitations and well nourished; Negative for average body habitus or healthy appearing Constitutional Narrative: Super morbidly obese, older, white female, sitting up in bed, appears comfortable and nontoxic General Appearance: cooperative, comfortable, well kempt and well developed Exam Limitations: no limitations Nutritional Appearance: morbidly obese HEENT normocephalic, head/scalp atraumatic, hearing grossly normal bilaterally and moist oral mucous membranes HEENT Narrative: Mallampati 4, no thrush Eyes PERRL, EOMs intact bilaterally and conjunctivae normal Eyes Narrative: No scleral icterus Neck no lymphadenopathy and supple Neck Narrative: Trachea midline, no thyroid enlargement Resp normal respiratory effort, no retractions, no use of accessory muscles and clear to auscultation bilaterally Resp Narrative: Diffusely diminished likely related to body habitus but clear Auscultation: Negative for rales, rhonchi or wheezes Cardio regular rate, regular rhythm, S1 normal heart sound, S2 normal heart sound, no murmurs, no rub, no gallops and no clicks GI normal to inspection, nondistended, normoactive bowel sounds, soft to palpation and non-tender GI Narrative: Very large protuberant abdomen Extremity no clubbing, cyanosis or edema Skin no rashes or lesions noted, no wounds, skin turgor normal and no jaundice Neuro oriented x3, moves all extremities, no focal motor deficits and no sensory deficits noted Speech: speech normal Psych affect normal Psych Narrative: Eye contact is good, patient interacts appropriately Weight / BMI Weight Weight: 159.6 kg Body Mass Index (BMI) 62.3 ABG / Lab / Microbiology Data 03/10/23 05:55 03/10/23 05:55 Laboratory: Laboratory Results - last 24 hr 03/09/23 22:30: WBC 8.7, RBC 4.87, Hgb 14.3, Hct 44.6, MCV 91.6, MCH 29.4, MCHC 32.1, RDW Std Deviation 44.0 H, RDW Coeff of Liam 13.2, Plt Count 262, MPV 10.1, Immature Gran % (Auto) 0.200, Neut % (Auto) 49.4, Lymph % (Auto) 39.0, Granite % (Auto) 9.7, Eos % (Auto) 1.4, Baso % (Auto) 0.3, Absolute Neuts (auto) 4.3, Absolute Lymphs (auto) 3.40, Nucleated RBC % 0, Sodium 141, Potassium 4.3, Chloride 109 H, Carbon Dioxide 27.0, Anion Gap 5, BUN 27 H, Creatinine 1.78 H, Estim Creat Clear Calc 22.59, Est GFR (MDRD) Af Amer 36 L, Est GFR (MDRD) Non-Af 30 L, BUN/Creatinine Ratio 15.2, Glucose 132 H, Calcium 9.0, Troponin I High Sens 25 03/10/23 01:02: Troponin I High Sens 36 03/10/23 05:55: WBC 5.5, RBC 4.45, Hgb 12.6, Hct 40.8, MCV 91.7, MCH 28.3, MCHC 30.9 L, RDW Std Deviation 44.1 H, RDW Coeff of Liam 13.1, Plt Count 182, MPV 9.8, PT Cancelled, INR Cancelled, Sodium 142, Potassium 3.3 L, Chloride 111 H, Carbon Dioxide 27.0, Anion Gap 4 L, BUN 25 H, Creatinine 1.36 H, Estim Creat Clear Calc 29.57, Est GFR (MDRD) Af Amer 49 L, Est GFR (MDRD) Non-Af 40 L, BUN/Creatinine Ratio 18.4, Glucose 128 H, Calcium 8.9, Total Bilirubin 0.30, AST 22, ALT 30, Alkaline Phosphatase 106, Total Protein 6.4, Albumin 3.0 L, Globulin 3.4, Albumin/Globulin Ratio 0.9, TSH 4.25 H 03/10/23 08:33: PT 16.0 H, INR 1.3 Radiography Diagnostic Testing: Radiology Impression Chest X-Ray 03/09/23 22:45 IMPRESSION: Right basilar and left perihilar atelectasis versus residual infiltrate. No pleural effusion or pneumothorax. Electronically Signed: Jinny Díaz MD at 23:29 EST , Echocardiogram 03/10/23 07:47 Interpretation Summary Mild concentric left ventricular hypertrophy. The left ventricular ejection fraction is 65 %. Stage 1 diastolic dysfunction. The left atrium is mildly enlarged. The study was technically difficult. Ordering Physician: Ines Wallace Referring Physician: Alfonzo Cha Performed By: Nivia Bond RDCS, RVT D/C Instructions Discharge Diet: Low fat / Low cholesterol Discharge Activity: Return to Normal Activity Meaningful Use Info Meaningful Use Diagnoses (Choose all that apply): None applicable Discharge Plan Admission Admit Date/Time: 03/10/23 02:22 Primary Reason for Your Visit: Tachycardia/chest pain Attending Provider: Ines Wallace Primary Care Provider: Alfonzo Cha Consulting Providers: Samuel Valadez; Bela Canales Instructions Additional Instructions / Restrictions: 1. Please monitor your heart rate and return to the emergency department if your heart rate is consistently greater than 120 bpm and you are symptomatic for longer than 30-minute while you are at rest 2. Please call Dr. Canales's office and schedule a cardiology appointment for next week for hospital follow-up Discharge Orders/Prescriptions Prescriptions: New amiodarone 200 mg Tablet 200 mg PO BID Qty: 40 0RF Rx Instructions: Take twice daily for 7 days then decrease dose to once daily Continued metoprolol succinate 25 mg tablet extended release 24 hr 25 mg PO DAILY Qty: 30 12RF potassium chloride 10 mEq tablet extended release 10 meq PO DAILY Entresto 24-26 mg tablet 1 tab PO BID Qty: 60 11RF calcium carbonate-vitamin D3 1 TABLET tablet 1 tab PO DAILY 0RF furosemide 40 mg tablet 40 mg PO DAILY Patient Comments: take 1 tablet by mouth once daily for DIURETIC omega 4-wtd-jaz-fish oil [Fish Oil] 300-1,000 mg capsule,delayed release(DR/EC) 1 cap PO DAILY omeprazole 20 mg capsule,delayed release(DR/EC) 20 mg PO DAILY Patient Comments: take 1 capsule by mouth once daily Eliquis 5 mg tablet 5 mg PO BID Qty: 60 12RF Referrals / Follow Up: Bela Canales MD [Med Staff - Active Staff] - Within 1 Week (Call on Monday and schedule appointment for next week) Alfonzo Cha MD [Primary Care Provider] - Within 2 Weeks Disposition Disposition (needs filled in before D/C Order can be placed): Home, Self Care Charges/Coding Visit Charges Inpatient E&M: 88247 Disch Hosp >30min
== END 2023-03-10 17:11 | disposition home or self-care (01) | DRG 309 ==
LOC: ED 03-10 02:26 → PCU 03-10 02:32
PROVIDERS: Admitting Provider Internal Medicine; Emergency Provider Emergency Medicine; PCP Family Medicine; Visit Provider Internal Medicine
DX: I48.0 Paroxysmal atrial fibrillation (principal); I50.22 Chronic systolic (congestive) heart failure; Z68.44 Body mass index [BMI] 60.0-69.9, adult; I42.8 Other cardiomyopathies; I11.0 Hypertensive heart disease with heart failure; J44.9 Chronic obstructive pulmonary disease, unspecified; E66.01 Morbid (severe) obesity due to excess calories; I48.11 Longstanding persistent atrial fibrillation; I45.2 Bifascicular block; K21.9 Gastro-esophageal reflux disease without esophagitis; I25.10 Atherosclerotic heart disease of native coronary artery without angina pectoris; G47.33 Obstructive sleep apnea (adult) (pediatric); Z79.01 Long term (current) use of anticoagulants; Z79.51 Long term (current) use of inhaled steroids; Z79.82 Long term (current) use of aspirin; Z79.891 Long term (current) use of opiate analgesic; Z79.899 Other long term (current) drug therapy; Z87.891 Personal history of nicotine dependence; Z23 Encounter for immunization
CPT/HCPCS: 36415; 71045; 80048; 80053; 83735; 84443; 84484; 85025; 85027; 85610; 92960; 93005; 93306; 96374; 96375; 96376; 99285; Q9957; 90662; A4216; C8929; J0153

== ENCOUNTER → 2023-07-27 | Outpatient (CLI) | payer MEDICARE, MEDICAID, SELFPAY ==
[2023-07-27 11:00] LABS: Thyroid Stim Hormone (TSH) 2.15 uIU/mL (0.358-3.74)
== END | disposition home or self-care (01) ==
PROVIDERS: PCP Family Medicine; Referring Provider Nurse Practitioner Gerontology; Visit Provider Nurse Practitioner Gerontology
DX: Z79.899 Other long term (current) drug therapy (principal)
CPT/HCPCS: 36415; 84443

== ENCOUNTER → 2023-08-02 | Outpatient (CLI) | payer MEDICARE, MEDICAID, SELFPAY | END | disposition home or self-care (01) | LOC: PSN 10:07 | PROVIDERS: PCP Family Medicine; Referring Provider Nurse Practitioner Gerontology; Visit Provider Nurse Practitioner Gerontology | DX: Z79.899 Other long term (current) drug therapy (principal) | CPT/HCPCS: 94060; 94726; 94729 ==

== ENCOUNTER → 2024-02-13 | Outpatient (CLI) | payer MEDICARE, MEDICAID, SELFPAY ==
--- OUTSIDE RECORDS SUMMARY | 2024-02-13 12:26 | XMS RPT_ITS | CCD ---
Author Organization [facility] Care Team Providers Care Film Processing Supervisor Name Role Phone OCHOA THORNTON Attending Unavailable CORNELIO HERNANDEZ Referring Unavailable Alfonzo Spears Primary Care Unavailable Alfonzo Spears MD Primary Care Provider Cornelio Heranndez Unavailable Marshall Newman Unavailable Alfonzo Spears MD Primary Care Provider Cornelio Hernandez Unavailable Marshall Newman Unavailable Alfonzo Spears MD Primary Care Provider Cornelio Hernandez Unavailable Marshall Newman Unavailable Alfonzo Spears MD Primary Care Provider Cornelio Hernandez MD Unavailable YULIET BELLAMY JR. Referring Unavailabl e ALFONZO SPEARS Primary Care Unavailable CONSULT, CARDIOLOGY - EP Consulting Unavail able OCHOA WALLS III Admitting Unavailab BRITTANY Cornelius Attending Unavailable Marshall Newman MD Unavailable Cornelio Hernandez MD Unavailable Alfonzo Spears MD Primary Care Provider ALFONZO SPEARS Primary Care Unavailable TRISHA TATE Attending Unavailable ALFONZO SPEARS Referring Unavailable ALFONZO SPEARS Primary Care Unavailable ALFONZO SPEARS Attending Unavailable ALFONZO SPEARS Primary Care Unavailable GENIE SHIN Referring Unavailable ALFONZO SPEARS Primary Care Unavailable GENIE SHIN Referring Unavailable ALFONZO SPEARS Primary Care Unavailable ALFONZO SPEARS Primary Care Unavailable GENIE SHIN Attending Unavailable SELF Referring Unavailable ALFONZO SPEARS Primary Care Unavailable TRISHA TATE Referring Unavailable Allergies Allergy Classification Reported Allergen(s) Allergy Type Date of Onset Reaction(s) Facility (20 sources) Aspirin; Translations: [ASPIRIN] Drug Allergy 5 GI Upset, Dyspepsia, Abdominal Discomfort [facility] Repository (20 sources) Propoxyphene; Translations: [PROPOXYPHENE] Drug Allergy 9 Other: See Comments, Syncope [facility] Medications Current Medications Medication Drug Class(es) Dates Sig (Normalized) Sig (Original) amiodarone hydrochloride 200 mg oral tablet (20 sources) Antiarrhythmic Start: 01-02-2024 End: 06-30-2024 take 0.5 tablet by mouth once daily amiodarone (PACERONE) 200 mg tablet Indications: Atrial fibrillation, unspecified type (HCC) , Cardiomyopathy of undetermined type (HCC) Take 0.5 tablets by mouth once daily. 90 tablet 1 01/02/2024 06/30/2024 Active Start: 04-28-2022 End: 04-29-2022 amiodarone HCl (NEXTERONE) 3 60mg in dextrose 200 mL premix Start: 06-10-2021 End: 03-20-2023 take 1 tablet by mouth once daily amiodarone (PACERONE) 100 mg tablet Take 1 tablet by mouth once daily. 30 tablet 5 06/10/2021 03/20/2023 Discontinued (Other) Start: 05-09-2020 End: 01-02-2024 take 1 tablet by mouth once daily amiodarone (PACERONE) 200 mg tablet Indications: Atrial fibrillation, unspecified type (HCC) , Cardiomyopathy of undetermined type (HCC) Take 1 tablet by mouth once daily. 90 tablet 1 03/20/2023 01/02/2024 Discontinued (Adjust Sig - Block E-Cancel) Comment on above: Take 1 tablet by alfredo th once daily. Take 200 mg by mouth once daily. apixaban 5 mg oral tablet (20 sources) Factor Xa Inhibitor Start: 05-09-2020 take 1 tablet by mouth twice daily apixaban (ELIQUIS) 5 mg tab(s) Take 5 mg by mouth twice daily. 05/09/2020 Active Start: 05-09-2020 End: 04-30-2022 take 5 mg by mouth every twelve hours 5 mg, Oral, EVERY 12 HOURS, First dose on Pauline 04/28/22 at 2100, Until Discontinued Due to the rapid onset of action of apixaban, no overlap is needed with other anticoagulants (e.g. enoxaparin, heparin). Indications: Atrial Fibrillation Comment on above: Take 5 mg by mouth t wice daily. calcium carbonate 1250 mg / cholecalciferol 100 unt chewable tablet (20 sources) Vitamin D Start: 12-12-19 18 take 1 tablet by mouth once daily calcium carbonate-vitamin D3 500-100 mg-unit chewable tablet Indications: Osteopenia, unspecified location Take 1 tablet by mouth once daily. 12/11/2017 Active Comment on above: Take 1 tablet by alfredo th once daily. 30 actuat fluticasone furoate 0.1 mg/actuat / umeclidinium 0.0625 mg/actuat / vilanterol 0.025 mg/actuat dry powder inhaler (20 sources) Anticholinergic, Corticosteroid, beta2-Adrenergic Agonist Start: 01-23-20 19 take 1 puff(s) by inhalation once daily TRELEGY ELLIPTA 100-62.5-25 mcg dsdv Inhale 1 puff once daily 01/22/2019 Active Comment on above: Inhale 1 puff once d aily FOLDING WALKER WITH 5 WHEELS (2 sources) Start: 01-02-20 24 FOLDING WALKER WITH 5 WHEELS Indications: Pain of lower extremity, unspecified laterality , Morbid obesity with BMI of 60.0-69.9, adult (HCC) Use as needed with ambulation 1 Each 01/02/2024 Active furosemide 40 mg oral tablet (20 sources) Loop Diuretic Start: 06-27-19 24 End: 06-27-19 25 take 1 tablet by mouth once daily furosemide (LASIX) 40 mg tablet Indications: Bilateral leg edema , Cardiomyopathy of undetermined type (HCC) Take 1 tablet by mouth once daily. 90 tablet 3 06/27/2023 06/26/2024 Active Start: 05-02-2022 End: 06-27-2023 take 1 tablet by mouth twice daily furosemide (LASIX) 40 mg tablet Take 1 tablet by mouth twice daily. 60 tablet 11 05/02/2022 06/27/2023 Discontinued Start: 06-10-2021 End: 05-02-2022 take 1 tablet by mouth once daily furosemide (LASIX) 40 mg tablet Take 1 tablet by mouth once daily. 90 tablet 1 06/10/2021 05/02/2022 Discontinued Start: 05-09-2020 End: 04-30-2022 take 40 mg by mouth twice daily before mealtime 40 mg, Oral, 2 TIMES DAILY BEFORE MEALS, First dose on Mon04/28/22 at 1600, Until Discontinued Start: 12-16-2019 End: 06-08-2020 take 1 tablet by mouth once daily furosemide (LASIX) 40 mg tablet Take 1 tablet by mouth once daily. 30 tablet 5 12/16/2019 06/08/2020 Discontinued Comment on above: Take 1 tablet by alfredo th once daily. Take 1 tablet by alfredo th twice daily. omega-3 DHA-EPA (FISH OIL) 1,200 (144-216) mg capsule (5 sources) Start: 06-27-2023 End: 06-26-2024 take 1 capsule by mouth once daily at breakfast omega-3 DHA-EPA (FISH OIL) 1,200 (144-216) mg capsule Indications: Atrial fibrillation, unspecified type (HCC) Take 1 capsule by mouth daily with breakfast. 30 capsule 11 06/27/2023 06/26/2024 Active Comment on above: Take 1 capsule by mo [facility] daily with breakfast. OXYGEN, HOME THERAPY, (20 sources) Start: 12-11-2017 OXYGEN, HOME THERAPY, 2 L/min by Nasal Cannula route as directed. 12/11/2017 Active Start: 12-11-2017 OXYGEN, HOME T HERAPY, 2 L/min by Nasal Cannula route as directed. 0 12/11/2017 Active Comment on above: 2 L/min by Nasal Can nula route as directed. potassium chloride 10 meq extended release oral tablet (20 sources) Start: 04-29-2022 End: 04-30-2022 10 mEq, Oral, DAILY, First dose on Mon04/29/22 at 0900, Until Discontinued Swallow tablets whole; do not crush, chew, or suck on tablet. Tablet may also be broken in half and each half swallowed separately. Start: 04-28-2022 End: 04-28-2022 Potassium chloride (K-DUR) t ablet ER 20 mEq Start: 09-03-2021 End: 06-26-2024 take 1 tablet by mouth once daily at breakfast potassium chloride (K-TAB) 10 mEq tablet Indications: Hypokalemia Take 1 tablet by mouth daily with breakfast. 30 tablet 11 09/03/2021 11/29/2021 Discontinued Comment on above: Take 1 tablet by alfredo th daily with breakfast. Completed/Discontinued Medications Medication Drug Class(es) Dates Sig (Normalized) Sig (Original) acetaminophen 325 mg oral tablet (2 sources) Start: 04-28-2022 End: 04-30-2022 take 1 tablet by mouth every six hours as needed Acetaminophen (TYLENOL) tablet 650 mg albuterol 0.83 mg/ml inhalation solution (15 sources) beta2-Adrenergic Agonist Start: 05-30-2019 End: 03-20-2023 take 2.5 mg by inhalation every two hours as needed for chronic obstructive pulmonary disease and chronic obstructive pulmonary disease albuterol (PROVENTIL) 2.5 mg /3 mL (0.083 %) nebulizer solution Indications: Chronic obstructive pulmonary disease, unspecified COPD type (HCC) Use 3 mL via nebulizer every 2 hours as needed for Wheezing/Shortness of Breath. Per Pulmonary 120 Vial 11 05/30/2019 03/20/2023 Discontinued Comment on above: Use 3 mL via nebuliz er every 2 hours as needed for Wheezing/Shortness of Breath. Per Pulmonary amiodarone (CORDARONE) 150 mg in Dextrose 5%, with overfill 113 mL (total volume) IVPB (2 sources) Start: 04-28-2022 End: 04-28-2022 amiodarone (CORDARONE) 150 mg in Dextrose 5%, with overfill 113 mL (total volume) IVPB 28 actuat budesonide 0.16 mg/actuat / formoterol fumarate 0.0048 mg/actuat / glycopyrrolate 0.009 mg/actuat metered dose inhaler (4 sources) Corticosteroid, beta2-Adrenergic Agonist Start: 04-30-2022 End: 04-30-2022 budesonide-glycopyr rolate-Formoterol (BREZTRI) 160-9-4.8 MCG/ACT inhaler 2 puff Start: 04-28-2022 End: 04-29-2022 take 2 puff(s) by inhalation twice daily 2 puff, Inhalation, 2 TIMES DAILY, First dose on [facility] 04/28/22 at 2100, Until Discontinued calcium carbonate 648 mg oral tablet (2 sources) Start: 04-30-2022 End: 04-30-2022 calcium carbonate antacid tablet 1,296 mg guaiFENesin 20 mg/ml oral solution (2 sources) Start: 04-28-2022 End: 04-30-2022 take 400 mg by mouth every six hours as needed guaiFENesin (ROBITUSSIN) oral solution 400 mg hydrOXYzine hydrochloride 10 mg oral tablet (2 sources) Antihistamine Start: 04-28-2022 End: 04-30-2022 take 1 tablet by mouth every six hours as needed hydrOXYzine hcl (ATARAX) tablet 10 mg melatonin 3 mg oral tablet (2 sources) Start: 04-28-2022 End: 04-30-2022 Melatonin tablet 6 mg 24 hr metoprolol succinate 25 mg extended release oral tablet (20 sources) beta-Adrenergic Maeve Start: 05-10-2020 End: 06-02-2023 take 1 tablet by mouth once daily metoprolol succinate ER (TOPROL XL) 25 mg 24 hr tablet Take 25 mg by mouth once daily. 05/10/2020 06/03/2020 Discontinued Comment on above: Take 1 tablet by alfredo once daily. [facility] omeprazole 20 mg delayed release oral capsule (20 sources) Proton Pump Inhibitor Start: 02-28-2020 End: 03-15-2023 take 1 capsule by mouth once daily omeprazole (PRILOSEC) 20 mg capsule Take 1 capsule by mouth once daily. 30 capsule 03/08/2021 03/14/2022 Discontinued Comment on above: Take 1 capsule by mo [facility] once daily. Ondansetron 4mg/2ml (ZOFRAN) injection 4 mg (2 sources) Start: 04-28-2022 End: 04-30-2022 take 4 mg intravenously every six hours as needed Ondansetron 4mg/2ml (ZOFRAN) injection 4 mg pantoprazole 40 mg delayed release oral tablet (2 sources) Proton Pump Inhibitor Start: 04-28-2022 End: 01-14-2023 take 40 mg by mouth once daily 40 mg, Oral, DAILY, First dose on Pauline 04/28/22 at 1345, Until Discontinued Swallow whole; do not crush or chew. Indications: Continuation of Home Therapy sacubitril 24 mg / valsartan 26 mg oral tablet (20 sources) Angiotensin 2 Receptor Maeve Start: 05-09-2020 End: 04-05-2023 take 1 tablet by mouth twice daily sacubitril-valsa rtan (ENTRESTO) 24-26 mg tablet Take 1 tablet by mouth twice daily. 05/09/2020 04/05/2023 Discontinued Comment on above: Take 1 tablet by alfredo th twice daily. Take 1 tablet by alfredo th two times a day. 1000 ml sodium chloride 9 mg/ml injection (6 sources) Start: 04-28-2022 End: 04-30-2022 Sodium chloride 0.9% IV solution 500 mL Problems Active Problems Problem Classification Problem Date Documented Date Episodic/Chronic Cancer of uterus (11 sources) Malignant neoplasm of endometrium of corpus uteri ; Translations: [Malignant neoplasm of endometrium] Onset: 01-17-2015 02-21-2018 Chronic Cardiac dysrhythmias (20 sources) Atrial fibrillation; Translations: [Unspecified atrial fibrillation] Onset: 12-14-2017 Resolved: 02-16-2018 02-21-2018 Chronic Cardiac dysrhythmias (8 sources) Tachyarrhythmia ; Translations: [Tachycardia, unspecified] Onset: 04-28-2022 Episodic Chronic kidney disease (20 sources) Chronic kidney disease stage 3; Translations: [Stage 3 chronic kidney disease] Onset: 03-25-2019 04-02-2019 Chronic Chronic kidney disease (1 source) Chronic kidney disease; Translations: [Stage 3 chronic kidney disease, unspecified whether stage 3a or 3b CKD (HCC)] Onset: 04-02-2019 Chronic obstructive pulmonary disease and bronchiectasis (20 sources) Chronic obstructive lung disease; Translations: [Chronic obstructive pulmonary disease, unspecified] Onset: 02-11-2018 02-21-2018 Chronic Congestive heart failure; nonhypertensive (2 sources) Acute exacerbation of chronic congestive heart failure; Translations: [Heart failure, unspecified] Onset: 05-03-2020 05-03-2020 Chronic Esophageal disorders (20 sources) Gastroesophageal reflux disease without esophagitis; Translations: [Gastro-esophageal reflux disease without esophagitis] Onset: 02-11-2018 10-17-2018 Chronic Essential hypertension (20 sources) Hypertensive disorder; Translations: [Essential (primary) hypertension] 02-21-2018 Chronic Fluid and electrolyte disorders (6 sources) Hypokalemia; Translations: [Hypokalemia] Onset: 01-09-2024 Episodic Hypertension with complications and secondary hypertension (18 sources) Chronic kidney disease stage 3 due to hypertension; Translations: [Hypertensive chronic kidney disease with stage 1 through stage 4 chronic kidney disease, or unspecified chronic kidney disease] Onset: 05-10-2022 Chronic Other aftercare (2 sources) Patient encounter status; Translations: [Encounter for therapeutic drug level monitoring] 12-09-2022 Episodic Other aftercare (1 source) Long-term current use of anticoagulant; Translations: [senior care (current) use of anticoagulants] 01-02-2024 Episodic Other aftercare (1 source) senior care (current) use of anticoagulants; Translations: [Chronic anticoagulation] Onset: 01-02-2024 Episodic Other connective tissue disease (1 source) Pain in lower limb; Translations: [Pain in leg, unspecified] 01-02-2024 Episodic Other nutritional; endocrine; and metabolic disorders (12 sources) Morbid obesity; Translations: [Morbid (severe) obesity due to excess calories] Onset: 01-17-2015 01-17-2015 Chronic Other nutritional; endocrine; and metabolic disorders (20 sources) Body mass index 40+ - severely obese; Translations: [Morbid (severe) obesity due to excess calories] Onset: 01-17-2015 Resolved: 02-18-2019 Chronic Cindy-; endo-; and myocarditis; cardiomyopathy (except that caused by tuberculosis or sexually transmitted disease) (20 sources) Cardiomyopathy; Translations: [Cardiomyopathy, unspecified] Onset: 06-27-2018 06-27-2018 Chronic Pleurisy; pneumothorax; pulmonary collapse (7 sources) Hemothorax; Translations: [Hemothorax] Onset: 02-15-2018 Resolved: 10-17-2018 10-17-2018 Episodic Pneumonia (except that caused by tuberculosis or sexually transmitted disease) (1 source) Bacterial pneumonia; Translations: [Unspecified bacterial pneumonia] 09-09-2021 Episodic Residual codes; unclassified (20 sources) Obstructive sleep apnea syndrome; Translations: [Obstructive sleep apnea (adult) (pediatric)] Onset: 06-27-2018 02-18-2019 Chronic Residual codes; unclassified (1 source) Bilateral lower limb edema; Translations: [Localized edema] 06-27-2023 Episodic Past or Other Problems Problem Classification Problem Date Documented Da te Episodic/Chronic Acute and unspecified renal failure (6 sources) Acute renal failure syndrome; Translations: [Acute kidney failure, unspecified] Onset: 02-12-2018 Resolved: 02-21-2018 02-21-2018 Episodic Cancer of uterus (18 sources) History of malignant neoplasm of endometrium; Translations: [Personal history of malignant neoplasm of other parts of uterus] Onset: 01-17-2015 05-10-2022 Episodic Diabetes mellitus without complication (20 sources) Prediabetes; Translations: [Prediabetes] Onset: 12-16-2014 01-16-2015 Episodic Other bone disease and musculoskeletal deformities (20 sources) Osteopenia; Translations: [Other specified disorders of bone density and structure, unspecified site] Onset: 08-24-2015 08-24-2015 Episodic Other screening for suspected conditions (not mental disorders or infectious disease) (20 sources) Cardiovascular stress test abnormal; Translations: [Abnormal result of other cardiovascular function study] Onset: 01-08-2018 06-27-2018 Episodic Respiratory failure; insufficiency; arrest (adult) (6 sources) Respiratory failure; Translations: [Respiratory failure, unspecified, unspecified whether with hypoxia or hypercapnia] Onset: 02-12-2018 Resolved: 02-21-2018 02-21-2018 Episodic Results Test Name Value Interpretation Reference Range Facility Basic metabolic 2000 panelon 01-09-2024 Anion gap [Moles/Vol] 13 mmol/L Normal 8-15 [facility] Comment on above: Order Comment: Jayme samuel Type: BLOOD SPECIMENOrdering Facility: [facility] Address: [address] [place] [address] Performed By: #### 2 4321-2 ####[facility] LABCLIA [id number] [place] [address] [place] Calcium [Mass/Vol] 9.4 mg/dL Normal 8.5-10.2 [facility] Comment on above: Order Comment: Jayme samuel Type: BLOOD SPECIMENOrdering Facility: [facility] Address: [address] [place] [address] Performed By: #### 2 4321-2 ####[facility] LABCLIA [id number] [place] [address] [place] Chloride [Moles/Vol] 104 mmol/L Normal 98-107 [facility] Comment on above: Order Comment: Speci men Type: BLOOD SPECIMENOrdering Facility: [facility] Address: [address] [place] [address] Performed By: #### 2 4321-2 ####[facility] LABCLIA [id number] [place] [address] [place] CO2 [Moles/Vol] 26 mmol/L Normal 22-30 [facility] Comment on above: Order Comment: Speci men Type: BLOOD SPECIMENOrdering Facility: [facility] Address: [address] [place] [address] Performed By: #### 2 4321-2 ####[facility] LABCLIA [id number] [place] [address] [place] Creatinine [Mass/Vol] 1.33 mg/dL High 0.58-0.96 [facility] Comment on above: Order Comment: Speci men Type: BLOOD SPECIMENOrdering Facility: [facility] Address: [address] [place] [address] Performed By: #### 2 4321-2 ####[facility] LABIA [id number] [place] [address] [place] Creatinine and Glomerular filtration rate.predicted panel (S/P/Bld) 42 mL/min/1.73m??? Low >=60 [facility] Comment on above: Order Comment: Speci men Type: BLOOD SPECIMENOrdering Facility: [facility] Address: [address] [place] [address] Result Comment: Ivy mated Glomerular Filtration Rate (eGFR) is calculated using the 2020 CKD-EPI creatinine equation. This equation utilizes serum creatinine, sex, and age as parameters. The creatinine assay has traceable calibration to isotope dilution-mass spectrometry. Refer to KDIGO guidelines for clinical interpretation. In patients with unstable renal function, e.g. those with acute kidney injury, the eGFR may not accurately reflect actual GFR. Performed By: #### 2 4321-2 ####[facility] LABCLIA [id number] [place] [address] [place] Glucose [Mass/Vol] 103 mg/dL High 74-99 [facility] Comment on above: Order Comment: Speci men Type: BLOOD SPECIMENOrdering Facility: [facility] Address: [address] [place] [address] Result Comment: The [place] [employer] (ADA) provides guidance for cutoff values for fasting glucose and random glucose. The ADA defines fasting as no caloric intake for at least 8 hours. Fasting plasma glucose results between 100 to 125 [...] Standards of Medical Care in Diabetes 2016, [place] [employer]. Diabetes Care. 2016.39(Suppl 1). Performed By: #### 2 4321-2 ####[facility] LABCLIA [id number] [place] [id number] [place] Potassium [Moles/Vol] 4.8 mmol/L Normal 3.7-5.1 [facility] Comment on above: Order Comment: Jayme men Type: BLOOD SPECIMENOrdering Facility: [facility] Address: [address] [place] [address] Performed By: #### 2 4321-2 ####[facility] LABCLIA [id number] [address] [address] [place] Sodium [Moles/Vol] 143 mmol/L Normal 136-144 [facility] Comment on above: Order Comment: Speci men Type: BLOOD SPECIMENOrdering Facility: [facility] Address: [address] [place] [id number] Performed By: #### 2 4321-2 ####[facility] [id number] [address] [place] Urea nitrogen [Mass/Vol] 22 mg/dL High 7-21 [facility] Comment on above: Order Comment: Speci men Type: BLOOD SPECIMENOrdering Facility: [facility] Address: [address] [place] [place] [id number] Performed By: #### 2 4321-2 ####[facility] [id number] [address] [facility] 01-05-2024 [place]WSONN Telephone (ROSANAWS) ALBA FLORES ([id number]) 1950 F Date Time Provider Department 01/05/24 GENIE SHIN During your visit today, we recorded the following information about you: Genie Shin APRN.CNP 01/05/2024 5:32 PM Signed Can please let patient know that I received her lab results. She continue to be in the pre-diabetic range -- please watch sugars/carbs. Her kidney function was stable. Her potassium was just minimally elevated. I would like for her to come back in and have this rechecked. If it is truly elevated, we may need to stop her potassium . The order is in for the repeat. Please try to come in the week of 01/07 to complete. Everything else was within normal/stable. RIRI Reyes Amanda, RN 01/08/2024 10:43 AM Signed Pt called and is notified of providers results and instructions. Pt voices understanding. Justina Flower RN Allergies As of Date: 01/05/2024 Noted Allergy Reaction ASA (ASPIRIN) 01/16/2015 8 - GI Upset PROPOXYPHENE 01/25/2019 14 - Other: See Comments Comments: Dizziness/ syncope Date Reviewed: 01/02/2024 Reviewed by: Dickson Vasquez LPN - Fully Assessed Reason for Visit: Results [95] Primary Visit Diagnosis:Serum potassium elevated [E87.5] Order(s):BASIC METABOLIC PANEL [SQBMP] Order #: [id number] FUTURE Prescriptions as of 01/08/2024 - amiodarone (PACERONE) 200 mg tablet Take 0.5 tablets by mouth once daily. - FOLDING WALKER WITH 5 WHEELS Use as needed with ambulation - furosemide (LASIX) 40 mg tablet Take 1 tablet by mouth once daily. - potassium chloride (K-TAB) 10 mEq tablet Take 1 tablet by mouth daily with breakfast. - omega-3 DHA-EPA (FISH OIL) 1,200 (144-216) mg capsule Take 1 capsule by mouth daily with breakfast. - metoprolol succinate ER (TOPROL XL) 25 mg 24 hr tablet Take 1 tablet by mouth once daily. - sacubitril-valsartan (ENTRESTO) 24-26 mg tablet Take 1 tablet by mouth two times a day. - omeprazole (PRILOSEC) 20 mg capsule Take 1 capsule by mouth once daily. - apixaban (ELIQUIS) 5 mg tab(s) Take 5 mg by mouth twice daily. - TRELEGY ELLIPTA 100-62.5-25 mcg dsdv Inhale 1 puff once daily - calcium carbonate-vitamin D3 500-100 mg-unit chewable tablet Take 1 tablet by mouth once daily. - OXYGEN, HOME THERAPY, 2 L/min by Nasal Cannula route as directed. Problem List As Of Date 01/05/2024 Noted Resolved HTN (hypertension) [I10] Borderline diabetes [R73.03] 12/16/2014 History of endometrial cancer [Z85.42] 01/17/2015 Morbid obesity with BMI of 60.0-69.9, adult (HC*01/17/2015 Osteopenia [M85.80] 08/24/2015 Atrial flutter with rapid ventricular response *12/14/2017 02/16/2018 Atrial fibrillation (HCC) [I48.91] 02/11/2018 GERD without esophagitis [K21.9] 02/11/2018 COPD (chronic obstructive pulmonary disease) (H*02/11/2018 Obesity, Class III, BMI >= 40 [E66.01] 02/11/2018 02/18/2019 Respiratory failure (HCC) [J96.90] 02/12/2018 02/21/2018 EKATERINA (acute kidney injury) (HCC) [N17.9] 02/12/2018 02/21/2018 Hemothorax on left [J94.2] 02/15/2018 10/17/2018 Cardiovascular stress test abnormal [R94.39] 01/08/2018 Cardiomyopathy of undetermined type (HCC) [I42.*06/27/2018 CECILIA (obstructive sleep apnea) [G47.33] 06/27/2018 Stage 3 chronic kidney disease (HCC) [N18.30] 03/25/2019 Hypertensive kidney disease with chronic kidney*05/10/2022 Encounter Status:Closed by JUSTINA FLOWER on 01/08/24 Normal [facility] CBC W Auto Differential pane l (Bld)on 01-02-2024 Basophils (Bld) [#/Vol] [facility] Basophils/100 WBC (Bld) 0.2 % [facility] Differential cell count method Nom (Bld) Auto [facility] Eosinophils (Bld) [#/Vol] 0.10 10*3/uL [facility] Eosinophils/100 WBC (Bld) 1.6 % [facility] Erythrocyte distribution width (RBC) [Ratio] 14.1 % 11.5 - 15.0 % [facility] Hematocrit (Bld) [Volume fraction] 44.9 % 36.0 - 46.0 % [facility] Hemoglobin (Bld) [Mass/Vol] 13.9 g/dL 11.5 - 15.5 g/dL [facility] Immature granulocytes (Bld) [#/Vol] [facility] Immature granulocytes/100 WBC (Bld) 0.3 % [facility] Lymphocytes (Bld) [#/Vol] 1.88 10*3/uL [facility] Lymphocytes/100 WBC (Bld) 30.5 % [facility] MCH (RBC) [Entitic mass] 28.7 pg 26.0 - 34.0 pg [facility] MCHC (RBC) [Mass/Vol] 31.0 g/dL 30.5 - 36.0 g/dL [facility] MCV (RBC) [Entitic vol] 92.8 fL 80.0 - 100.0 fL [facility] Monocytes (Bld) [#/Vol] 0.54 10*3/[facility]L [facility] Monocytes/100 WBC (Bld) 8.8 % [facility] Neutrophils (Bld) [#/Vol] 3.62 10*3/uL [facility] Neutrophils/100 WBC (Bld) 58.6 % [facility] Nucleated RBC (Bld) [#/Vol] NINF [facility] Nucleated RBC/100 WBC (Bld) [Ratio] 0.0 % /100 WBC [facility] Platelet mean volume (Bld) [Entitic vol] 10.6 fL 9.0 - 12.7 fL [facility] Platelets (Bld) [#/Vol] 193 10*3/uL [facility] RBC (Bld) [#/Vol] 4.84 10*6/uL 3.90 - 5.2 0 m/uL [facility] WBC (Bld) [#/Vol] 6.17 10*3/uL [facility] Basophils (Bld) [#/Vol] 10*3/uL Normal <0.11 [facility] Comment on above: Order Comment: Speci men Type: BLOOD SPECIMENOrdering Facility: [facility] Address: [address] [place] [address] Performed By: #### 5 7021-8 ####[facility] LABCLIA [id number] [place] [address] [place] Basophils/100 WBC (Bld) 0.2 % Normal [facility] Comment on above: Order Comment: Speci men Type: BLOOD SPECIMENOrdering Facility: [facility] Address: [address] [place] [address] Performed By: #### 5 7021-8 ####[facility] LABIA [id number] [place] [address] [place] Differential cell count method Nom (Bld) Auto Normal [facility] Comment on above: Order Comment: Speci men Type: BLOOD SPECIMENOrdering Facility: [facility] Address: [address] [place] [address] Performed By: #### 5 7021-8 ####[facility] LABCLIA [id number] [place] [address] [place] Eosinophils (Bld) [#/Vol] 0.10 10*3/uL Normal <0.46 [facility] Comment on above: Order Comment: Speci men Type: BLOOD SPECIMENOrdering Facility: [facility] Address: [address] [place] [address] Performed By: #### 5 7021-8 ####[facility] LABIA [id number] [place] [address] [place] Eosinophils/100 WBC (Bld) 1.6 % Normal [facility] Comment on above: Order Comment: Speci men Type: BLOOD SPECIMENOrdering Facility: [facility] Address: [address] [place] [address] Performed By: #### 5 7021-8 ####[facility] LABCLIA [id number] [place] [address] [place] Erythrocyte distribution width (RBC) [Ratio] 14.1 % Normal 11.5-15.0 [facility] Comment on above: Order Comment: Speci men Type: BLOOD SPECIMENOrdering Facility: [facility] Address: [address] [place] [address] Performed By: #### 5 7021-8 ####[facility] LABCLIA [id number] [place] [address] [place] Hematocrit (Bld) [Volume fraction] 44.9 % Normal 36.0-46.0 [facility] Comment on above: Order Comment: Speci men Type: BLOOD SPECIMENOrdering Facility: [facility] Address: [address] [place] [address] Performed By: #### 5 7021-8 ####[facility] LABCLIA [id number] [place] [address] [place] Hemoglobin (Bld) [Mass/Vol] 13.9 g/dL Normal 11.5-15.5 [facility] Comment on above: Order Comment: Speci men Type: BLOOD SPECIMENOrdering Facility: [facility] Address: [address] [place] [address] Performed By: #### 5 7021-8 ####[facility] LABCLIA [id number] [place] [address] [place] Immature granulocytes (Bld) [#/Vol] 10*3/uL Normal <0.10 [facility] Comment on above: Order Comment: Speci men Type: BLOOD SPECIMENOrdering Facility: [facility] Address: [address] [place] [address] Performed By: #### 5 7021-8 ####[facility] LABCLIA [id number] [place] [address] [place] Immature granulocytes/100 WBC (Bld) 0.3 % Normal [facility] Comment on above: Order Comment: Speci men Type: BLOOD SPECIMENOrdering Facility: [facility] Address: [address] [place] [address] Performed By: #### 5 7021-8 ####[facility] LABCLIA [id number] [place] [address] [place] Lymphocytes (Bld) [#/Vol] 1.88 10*3/uL Normal 1.00-4.00 [facility] Comment on above: Order Comment: Speci men Type: BLOOD SPECIMENOrdering Facility: [facility] Address: [address] [place] [address] Performed By: #### 5 7021-8 ####[facility] LABCLIA [id number] [place] [address] [place] Lymphocytes/100 WBC (Bld) 30.5 % Normal [facility] Comment on above: Order Comment: Speci men Type: BLOOD SPECIMENOrdering Facility: [facility] Address: [address] [place] [address] Performed By: #### 5 7021-8 ####[facility] LABCLIA [id number] [place] [address] [place] MCH (RBC) [Entitic mass] 28.7 pg Normal 26.0-34.0 [facility] Comment on above: Order Comment: Speci men Type: BLOOD SPECIMENOrdering Facility: [facility] Address: [address] [place] [address] Performed By: #### 5 7021-8 ####[facility] LABCLIA [id number] [place] [address] [place] MCHC (RBC) [Mass/Vol] 31.0 g/dL Normal 30.5-36.0 [facility] Comment on above: Order Comment: Speci men Type: BLOOD SPECIMENOrdering Facility: [facility] Address: [address] [place] [address] Performed By: #### 5 7021-8 ####[facility] LABIA [id number] [place] [address] [place] MCV (RBC) [Entitic vol] 92.8 fL Normal 80.0-100.0 [facility] Comment on above: Order Comment: Speci men Type: BLOOD SPECIMENOrdering Facility: [facility] Address: [address] [place] [address] Performed By: #### 5 7021-8 ####[facility] LABCLIA [id number] [place] [address] [place] Monocytes (Bld) [#/Vol] 0.54 10*3/uL Normal <0.87 [facility] Comment on above: Order Comment: Speci men Type: BLOOD SPECIMENOrdering Facility: [facility] Address: [address] [place] [address] Performed By: #### 5 7021-8 ####[facility] LABCLIA [id number] [place] [address] [place] Monocytes/100 WBC (Bld) 8.8 % Normal [facility] Comment on above: Order Comment: Speci men Type: BLOOD SPECIMENOrdering Facility: [facility] Address: [address] [place] [address] Performed By: #### 5 7021-8 ####[facility] LABCLIA [id number] [place] [address] [place] Neutrophils (Bld) [#/Vol] 3.62 10*3/uL Normal 1.45-7.50 [facility] Comment on above: Order Comment: Speci men Type: BLOOD SPECIMENOrdering Facility: [facility] Address: [address] [place] [address] Performed By: #### 5 7021-8 ####[facility] LABCLIA [id number] [place] [address] [place] Neutrophils/100 WBC (Bld) 58.6 % Normal [facility] Comment on above: Order Comment: Speci men Type: BLOOD SPECIMENOrdering Facility: [facility] Address: [address] [place] [address] Performed By: #### 5 7021-8 ####[facility] LABCLIA [id number] [place] [address] [place] Nucleated RBC (Bld) [#/Vol] 10*3/uL Normal <0.01 [facility] Comment on above: Order Comment: Speci men Type: BLOOD SPECIMENOrdering Facility: [facility] Address: [address] [place] [address] Performed By: #### 5 7021-8 ####[facility] LABCLIA [id number] [place] [address] [place] Nucleated RBC/100 WBC (Bld) [Ratio] 0.0 /100 WBC Normal [facility] Comment on above: Order Comment: Speci men Type: BLOOD SPECIMENOrdering Facility: [facility] Address: [address] [place] [address] Performed By: #### 5 7021-8 ####[facility] LABCLIA [id number] [place] [address] [place] Platelet mean volume (Bld) [Entitic vol] 10.6 fL Normal 9.0-12.7 [facility] Comment on above: Order Comment: Speci men Type: BLOOD SPECIMENOrdering Facility: [facility] Address: [address] [place] [address] Performed By: #### 5 7021-8 ####[facility] LABCLIA [id number] [place] [address] [place] Platelets (Bld) [#/Vol] 193 10*3/uL Normal 150-400 [facility] Comment on above: Order Comment: Speci men Type: BLOOD SPECIMENOrdering Facility: [facility] Address: [address] [place] [address] Performed By: #### 5 7021-8 ####[facility] LABCLIA [id number] [place] [address] [place] RBC (Bld) [#/Vol] 4.84 10*6/uL Normal 3.90-5.20 [facility] Comment on above: Order Comment: Speci men Type: BLOOD SPECIMENOrdering Facility: [facility] Address: [address] [place] [address] Performed By: #### 5 7021-8 ####[facility] LABCLIA [id number] [place] [address] [place] WBC (Bld) [#/Vol] 6.17 10*3/uL Normal 3.70-11.00 [facility] Comment on above: Order Comment: Speci men Type: BLOOD SPECIMENOrdering Facility: [facility] Address: [address] [place] [address] Performed By: #### 5 7021-8 ####[facility] LABCLIA [id number] [id number] [id number] [place] [facility] CNOVon 01-02-2024 CNOV Office Visit (FAMPWS ) ALBA FLORES ([id number]) 1950 F Date Time Provider Department 01/02/24 10:40 AM GENIE SHIN During your visit today, we recorded the following information about you: Pulse Respiration Blood pressure Weight 61/minute 16/minute 138/80 158.8 kg Genie Shin APRN.PLUG SORTER 01/02/2024 2:08 PM Signed This is a 73 year old female who presents today with: Patient presents with: Recheck: 6 month follow up HISTORY OF PRESENT ILLNESS: Alba Flores is a 73 year old female. Patient presents with: Recheck: 6 month follow up Pt presents today for 6 month recheck. CECILIA: Uses cpap regularly. Headaches improved. Feels better rested. HTN: Patient is compliant with meds Yes Monitors bp at home: Yes. 120-130/60-80 Denies side effects: Yes. Chest pain: No. Dyspnea: No. Edema: Yes. Palpitations: Yes. Syncope: No. Headache: No. Dizziness: No. Afib: Follows w/ [facility] cardiology. Has appt next month. Chronic anticoagulation. No abnormal s/s of bleeding. Sometimes some problems with ambulation. Needs some extra support. Will get pain in the right knee. Refers that she recently had problems with the left ankle. Requests a walker to help get around home when she has flares. Requesting handicap placard. COPD Home o2 w/ sleep. Uses treligy. Follows w/ pulm. PAST MEDICAL HISTORY: PAST MEDICAL HISTORY Diagnosis Date Acute kidney injury (EKATERINA) with acute tubular necrosis (ATN) (HCC) Atrial fibrillation (HCC) Atrial flutter (HCC) w/ RVR Borderline diabetes 12/2014 Chronic atrial fibrillation (HCC) COPD (chronic obstructive pulmonary disease) (HCC) Endometrial cancer, grade I (HCC) 12/2014 GERD (gastroesophageal reflux disease) HTN (hypertension) 12/2014 Morbid obesity with BMI of 60.0-69.9, adult (HCC) CECILIA (obstructive sleep apnea) Osteopenia Palpitations PAST SURGICAL HISTORY Procedure Laterality Date APPENDECTOMY CARDIAC CATH Left LAPS SUPRACRV HYSTERECT 250 GM/< RMVL TUBE/OVAR 2014 MIDLINE INSERTION/CONSULT 02/16/2018 TUBAL LIGATION HX ALLERGIES Asa [Aspirin] and Propoxyphene MEDICATIONS Current Outpatient Medications Medication Sig furosemide (LASIX) 40 mg tablet Take 1 tablet by mouth once daily. potassium chloride (K-TAB) 10 mEq tablet Take 1 tablet by mouth daily with breakfast. omega-3 DHA-EPA (FISH OIL) 1,200 (144-216) mg capsule Take 1 capsule by mouth daily with breakfast. metoprolol succinate ER (TOPROL XL) 25 mg 24 hr tablet Take 1 tablet by mouth once daily. sacubitril-valsartan (ENTRESTO) 24-26 mg tablet Take 1 tablet by mouth two times a day. amiodarone (PACERONE) 200 mg tablet Take 1 tablet by mouth once daily. omeprazole (PRILOSEC) 20 mg capsule Take 1 capsule by mouth once daily. apixaban (ELIQUIS) 5 mg tab(s) Take 5 mg by mouth twice daily. TRELEGY ELLIPTA 100-62.5-25 mcg dsdv Inhale 1 puff once daily calcium carbonate-vitamin D3 500-100 mg-unit chewable tablet Take 1 tablet by mouth once daily. OXYGEN, HOME THERAPY, 2 L/min by Nasal Cannula route as directed. (Patient taking differently: 1 L/min by Nasal Cannula route as directed.) No current facility-administered medications for this visit. FAMILY HISTORY Problem Relation Age of Onset COPD Mother Heart Mother Heart Father Colon Cancer Sister No Known Problems Brother Cancer Maternal Grandmother Heart Attack Maternal Grandfather No Known Problems Paternal Grandmother No Known Problems Paternal Grandfather Diabetes Sister Hypertension Son No Known Problems Son No Known Problems Son No Known Problems Daughter Hypertension Daughter Social History Tobacco Use Smoking status: Former Current packs/day: 0.00 Average packs/day: 1 pack/day for 5.0 years (5.0 ttl pk-yrs) Types: Cigarettes Start date: 04/17/1979 Quit date: 04/17/1984 Years since quittin.7 Smokeless tobacco: Never Tobacco comments: still smokes in the home Vaping Use Vaping status: Never Used Substance Use Topics Alcohol use: Not Currently Comment: rarely Drug use: No EXAM: BP 138/80 Pulse 61 Resp 16 Wt (!) 158.8 kg (350 lb) SpO2 91% BMI 64.02 kg/m? PHYSICAL EXAM: General Appearance: Well appearing, alert, in no acute distress, well-hydrated, well nourished.. Skin: Skin color, texture, turgor normal, no suspicious rashes or lesions. Head: Normocephalic, no masses, lesions, tenderness or abnormalities. Eyes: Anicteric sclera. Extraocular movements are intact. . Neck: Supple, no adenopathy; thyroid symmetric, normal size, no bruits. Lungs: Lungs clear to auscultation. No wheezing, rhonchi, rales.. Heart: RRR without murmur, gallop, or rubs. No ectopy. Extremities: No deformities, +1 edema, skin discoloration, clubbing or cyanosis. Good capillary refill. . Neurologic: Gait normal. ASSESSMENT/PLAN: 1. Primary h (more content not included)... Normal [facility] Comprehensive metabolic 2000 panelon 01-02-2024 Albumin [Mass/Vol] 4.2 g/dL Normal 3.9-4.9 [facility] Comment on above: Order Comment: Speci men Type: BLOOD SPECIMENOrdering Facility: [facility] Address: [address] [place] [address] Performed By: #### 2 4323-8, 80526-6, 3016-3, 66742-1 ####[facility] LABCLIA [id number] [place] [address] [place] ALP [Catalytic activity/Vol] 103 U/L Normal 34-123 [facility] Comment on above: Order Comment: Speci men Type: BLOOD SPECIMENOrdering Facility: [facility] Address: [address] [place] [address] Performed By: #### 2 4323-8, 80370-6, 3, ####[facility] LABCLIA [id number] [address] [address] [place] ALT [Catalytic activity/Vol] 28 U/L Normal 7-38 [facility] Comment on above: Order Comment: Speci men Type: BLOOD SPECIMENOrdering Facility: [facility] Address: [address] [place], [place] [address] Performed By: #### 2 4323-8, 53444-4, 3, ####[facility] LABCLIA [id number] [place] [id number] [place] Anion gap [Moles/Vol] 11 mmol/L Normal 8-15 [facility] Comment on above: Order Comment: Speci men Type: BLOOD SPECIMENOrdering Facility: [facility] Address: [address] [place] [address] Performed By: #### 2 4323-8, 38419-9, 3, ####[facility] LABCLIA [id number] [address] [address] [place] AST [Catalytic activity/Vol] 29 U/L Normal 13-35 [facility] Comment on above: Order Comment: Speci men Type: BLOOD SPECIMENOrdering Facility: [facility] Address: [address] [place] [address] Performed By: #### 2 4323-8, 08865-8, 3, ####[facility] LABCLIA [id number] [address] [address] [place] Bilirubin [Mass/Vol] 0.3 mg/dL Normal 0.2-1.3 [facility] Comment on above: Order Comment: Speci men Type: BLOOD SPECIMENOrdering Facility: [facility] Address: [address] [place] [address] Performed By: #### 2 4323-8, 40731-7, 3015-06, ####[facility] LABCLIA [id number] [facility] [address] [address] [place] Calcium [Mass/Vol] 9.6 mg/dL Normal 8.5-10.2 [facility] Comment on above: Order Comment: Speci men Type: BLOOD SPECIMENOrdering Facility: [facility] Address: [address] [place] [address] Performed By: #### 2 4323-8, 07314-7, 3015-06, ####[facility] LABIA [id number] [place] [id number] [place] Chloride [Moles/Vol] 107 mmol/L Normal 98-107 [facility] Comment on above: Order Comment: Speci men Type: BLOOD SPECIMENOrdering Facility: [facility] Address: [address] [place] [address] Performed By: #### 2 4323-8, 40692-8, 3015-06, ####[facility] LABIA [id number] [address] [address] [place] CO2 [Moles/Vol] 27 mmol/L Normal 22-30 [facility] Comment on above: Order Comment: Speci men Type: BLOOD SPECIMENOrdering Facility: [facility] Address: [address] [place] [address] Performed By: #### 2 4323-8, 47028-9, 3015-06, ####[facility] LABCLIA [id number] [facility] [address] [address] [place] Creatinine [Mass/Vol] 1.33 mg/dL High 0.58-0.96 [facility] Comment on above: Order Comment: Jayme samuel Type: BLOOD SPECIMENOrdering Facility: [facility] Address: [address] [place] [id number] Performed By: #### 2 4323-8, 22026-3, 3015-3, ####[facility] LABCLIA [id number] [address] [address] [place] Creatinine and Glomerular filtration rate.predicted panel (S/P/Bld) 42 mL/min/1.73m??? Low >=60 [facility] Comment on above: Order Comment: Jayme samuel Type: BLOOD SPECIMENOrdering Facility: [facility] Address: [address] [place] [address] Result Comment: Ivy mated Glomerular Filtration Rate (eGFR) is calculated using the 2020 CKD-EPI creatinine equation. This equation utilizes serum creatinine, sex, and age as parameters. The creatinine assay has traceable calibration to isotope dilution-mass spectrometry. Refer to KDIGO guidelines for clinical interpretation. In patients with unstable renal function, e.g. those with acute kidney injury, the eGFR may not accurately reflect actual GFR. Performed By: #### 2 4323-8, 47984-9, 3015-3, ####[facility] LABCLIA [id number] [address] [address] [place] Glucose [Mass/Vol] 98 mg/dL Normal 74-99 [facility] Comment on above: Order Comment: Jayme samuel Type: BLOOD SPECIMENOrdering Facility: [facility] Address: [address] [place] [id number] Result Comment: The [place] Diabetes [employer] (ADA) provides guidance for cutoff values for fasting glucose and random glucose. The ADA defines fasting as no caloric intake for at least 8 hours. Fasting plasma glucose results between 100 to 125 [...] Standards of Medical Care in Diabetes 2016, [place] [employer]. Diabetes Care. 2016.39(Suppl 1). Performed By: #### 2 4323-8, 55442-9, 3, ####[facility] LABCLIA [id number] [address] [address] [place] Potassium [Moles/Vol] 5.2 mmol/L High 3.7-5.1 [facility] Comment on above: Order Comment: Speci men Type: BLOOD SPECIMENOrdering Facility: [facility] Address: [address] [place] [address] Performed By: #### 2 4323-8, 69622-8, 3015-06, ####[facility] LABCLIA [id number] [place] [address] [place] Protein [Mass/Vol] 7.1 g/dL Normal 6.3-8.0 [facility] Comment on above: Order Comment: Speci men Type: BLOOD SPECIMENOrdering Facility: [facility] Address: [address] [place] [address] Performed By: #### 2 4323-8, 19642-3, 3015-06, ####[facility] LABCLIA [id number] [address] [address] [place] Sodium [Moles/Vol] 145 mmol/L High 136-144 [facility] Comment on above: Order Comment: Speci men Type: BLOOD SPECIMENOrdering Facility: [facility] Address: [address] [place] [address] Performed By: #### 2 4323-8, 81024-2, 3015-06, ####[facility] LABCLIA [id number] [address] [address] [place] Urea nitrogen [Mass/Vol] 17 mg/dL Normal 7-21 [facility] Comment on above: Order Comment: Jayme samuel Type: BLOOD SPECIMENOrdering Facility: [facility] Address: [address] [place] [address] Performed By: #### 2 4323-8, 04887-9, 3016-3, 36180-4 ####[facility] LABCLIA [id number] [place] [address] [place] HbA1c (Bld)on 01-02-2024 Average glucose Estimated from glycated hemoglobin (Bld) [Mass/Vol] 117 mg/dL Normal [facility] Comment on above: Order Comment: Jayme samuel Type: BLOOD SPECIMENOrdering Facility: [facility] Address: [address] [place] [address] Result Comment: eAG: (Estimated average glucose) is a calculated value from HgbA1c and is technical support representative of the average blood glucose level in the last 2-3 month period. Performed By: #### 5 5454-3 ####[facility] LABIA [id number] [address] [place] [facility] HbA1c (Bld) [Mass fraction] 5.7 % High 4.3-5.6 [facility] Comment on above: Order Comment: Jayme samuel Type: BLOOD SPECIMENOrdering Facility: [facility] Address: [address] [place] [address] Result Comment: [place] Diabetes Association guidelines indicate that patients with HgbA1c in the range 5.7-6.4% are at increased risk for development of diabetes, and intervention by lifestyle modification may be beneficial. HgbA1c greater or equal to 6.5% is considered diagnostic of diabetes. Performed By: #### 5 5454-3 ####[facility] LABIA [id number] [place] [id number] [place] Lipid 1996 panelon 4 Cholesterol [Mass/Vol] 209 mg/dL High <200 [facility] Comment on above: Order Comment: Jayme samuel Type: BLOOD SPECIMENOrdering Facility: [facility] Address: [address], [place] [address] Result Comment: <200 mg/dL, Desirable 200-239 mg/dL, Borderline high >239 mg/dL, High Performed By: #### 2 4323-8, 28037-2, 3015-3, ####[facility] LABCLIA [id number] [address] [address] [place] Cholesterol in HDL [Mass/Vol] 59 mg/dL Normal >39 [facility] Comment on above: Order Comment: Speci men Type: BLOOD SPECIMENOrdering Facility: [facility] Address: [address] [place] [address] Result Comment: 40-5 9 mg/dL, Acceptable >59 mg/dL, High: Negative risk factor for coronary heart disease <40 mg/dL, Low: Positive risk factor for coronary heart disease Performed By: #### 2 4323-8, 40945-1, 3, ####[facility] LABCLIA [id number] [address] [address] [place] Cholesterol in LDL [Mass/Vol] 118 mg/dL High <100 [facility] Comment on above: Order Comment: Nupuri men Type: BLOOD SPECIMENOrdering Facility: [facility] Address: [address] [place] [address] Result Comment: <100 mg/dL, Optimal 100-129 mg/dL, Near optimal/above optimal 130-159 mg/dL, Borderline high 160-189 mg/dL, High >189 mg/dL, Very high Secondary prevention optimal LDL Cholesterol levels are recommended to be < 70 mg/dL Performed By: #### 2 4323-8, 51346-5, 3015-3, ####[facility] LABCLIA [id number] [address] [address] [place] Cholesterol in LDL/Cholesterol in HDL [Mass ratio] 2.00 {ratio} Normal <2.54 [facility] Comment on above: Order Comment: Speci men Type: BLOOD SPECIMENOrdering Facility: [facility] Address: [address] [place] [address] Result Comment: Rony jackson: 1. National Cholesterol Education Program ATP III Guideline At-A-Glance Quick Desk Reference: National Heart, Lung, and Blood Cub Run. National Institutes of Health. 2001: NIH Publication No. 01-3305. 2. An International Atherosclerosis Society position paper: global recommendations for the management of dyslipidemia: executive summary, Atherosclerosis. 2014: 232(2):410-413. Performed By: #### 2 4323-8, 37135-3, 3015-3, ####[facility] LABCLIA [id number] [place] [address] [place] Cholesterol in VLDL [Mass/Vol] 32 mg/dL High <30 [facility] Comment on above: Order Comment: Speci men Type: BLOOD SPECIMENOrdering Facility: [facility] Address: [address] [place] [address] Performed By: #### 2 4323-8, 06883-7, 3015-06, ####[facility] LABCLIA [id number] [place] [address] [place] Cholesterol non HDL [Mass/Vol] 150 mg/dL High <130 [facility] Comment on above: Order Comment: Speci men Type: BLOOD SPECIMENOrdering Facility: [facility] Address: [address] [place] [address] Result Comment: <130 mg/dL, Optimal 130-159 mg/dL, Near optimal/above optimal 160-189 mg/dL, Borderline high 190-219 mg/dL, High >219 mg/dL, Very high Secondary prevention optimal non HDL Cholesterol levels are recommended to be <100 mg/dL Performed By: #### 2 4323-8, 97417-3, 3015-, ####[facility] LABCLIA [id number] [address] [address] [place] Cholesterol.total/Chol esterol in HDL [Mass ratio] 3.54 {ratio} Normal <5.10 [facility] Comment on above: Order Comment: Speci men Type: BLOOD SPECIMENOrdering Facility: [facility] Address: [address] [place] [id number] Performed By: #### 2 4323-8, 01441-7, 3015-06, ####[facility] LABCLIA [id number] [address] [address] [place] FASTING TIME 20 hrs Normal [facility] Comment on above: Order Comment: Speci men Type: BLOOD SPECIMENOrdering Facility: [facility] Address: [address] [place] [address] Performed By: #### 2 4323-8, 51192-6, 3015-06, ####[facility] LABCLIA [id number] [address] [address] [place] Triglyceride [Mass/Vol] 158 mg/dL High <150 [facility] Comment on above: Order Comment: Speci men Type: BLOOD SPECIMENOrdering Facility: [facility] Address: [address] [place] [address] Result Comment: <150 mg/dL, Normal 150-199 mg/dL, Borderline high 200-499 mg/dL, High >499 mg/dL, Very high Performed By: #### 2 4323-8, 43894-1, 3015-06, ####[facility] LABCLIA [id number] [address] [address] [place] Magnesium SerPl-mCncon 01-01 Magnesium [Mass/Vol] 2.3 mg/dL Normal 1.7-2.3 [facility] Comment on above: Order Comment: Speci men Type: BLOOD SPECIMENOrdering Facility: [facility] Address: [address] [place], [place] [address] Performed By: #### 2 4323-8, 43316-6, 3, ####[facility] LABCLIA [id number] [place] [address] OF [facility] TSH SerPl-aCncon 01-02-2024 TSH Qn 2.100 m[IU]/L Normal 0.270-4.200 [facility] Comment on above: Order Comment: Speci men Type: BLOOD SPECIMENOrdering Facility: [facility] Address: [address] [place] [address] Performed By: #### 2 4323-8, 87540-7, 3016-3, 53077-2 ####[facility] LABCLIA [id number] [address] STATES OF [facility] CBC W Auto Differential pane l (Bld)on 06-27-2023 Basophils (Bld) [#/Vol] <0.11 k/uL [facility] Basophils/100 WBC (Bld) 0.2 % [facility] Differential cell count method Nom (Bld) Auto [facility] Eosinophils (Bld) [#/Vol] 0.16 10*3/uL <0.46 k/uL [facility] Eosinophils/100 WBC (Bld) 2.6 % [facility] Erythrocyte distribution width (RBC) [Ratio] 14.3 % 11.5 - 15.0 % [facility] Hematocrit (Bld) [Volume fraction] 44.2 % 36.0 - 46.0 % [facility] Hemoglobin (Bld) [Mass/Vol] 13.8 g/dL 11.5 - 15.5 g/dL [facility] Immature granulocytes (Bld) [#/Vol] <0.10 k/uL [facility] Immature granulocytes/100 WBC (Bld) 0.3 % [facility] Lymphocytes (Bld) [#/Vol] 2.48 10*3/uL 1.00 - 4.00 k/uL [facility] Lymphocytes/100 WBC (Bld) 40.3 % [facility] MCH (RBC) [Entitic mass] 28.4 pg 26.0 - 34.0 pg [facility] MCHC (RBC) [Mass/Vol] 31.2 g/dL 30.5 - 36.0 g/dL [facility] MCV (RBC) [Entitic vol] 90.9 fL 80.0 - 100.0 fL [facility] Monocytes (Bld) [#/Vol] 0.54 10*3/uL <0.87 k/uL [facility] Monocytes/100 WBC (Bld) 8.8 % [facility] Neutrophils (Bld) [#/Vol] 2.94 10*3/uL 1.45 - 7.50 k/uL [facility] Neutrophils/100 WBC (Bld) 47.8 % [facility] Nucleated RBC (Bld) [#/Vol] <0.01 k/uL [facility] Nucleated RBC/100 WBC (Bld) [Ratio] 0.0 /100 WBC [facility] Platelet mean volume (Bld) [Entitic vol] 10.0 fL 9.0 - 12.7 fL [facility] Platelets (Bld) [#/Vol] 194 10*3/uL 150 - 400 k/uL [facility] RBC (Bld) [#/Vol] 4.86 10*6/uL 3.90 - 5.2 0 m/uL [facility] WBC (Bld) [#/Vol] 6.15 10*3/uL 3.70 - 11. 00 k/uL [facility] Basophils (Bld) [#/Vol] 10*3/uL Normal <0.11 [facility] Comment on above: Order Comment: Speci men Type: BLOOD SPECIMENOrdering Facility: [facility] Address: [address] [place] [address] Performed By: #### 5 7021-8 ####[facility] LABIA [id number] [place] [address] [place] Basophils/100 WBC (Bld) 0.2 % Normal [facility] Comment on above: Order Comment: Speci men Type: BLOOD SPECIMENOrdering Facility: [facility] Address: [address] [place] [address] Performed By: #### 5 7021-8 ####[facility] LABCLIA [id number] [place] [address] [place] Differential cell count method Nom (Bld) Auto Normal [facility] Comment on above: Order Comment: Speci men Type: BLOOD SPECIMENOrdering Facility: [facility] Address: [address] [place] [address] Performed By: #### 5 7021-8 ####[facility] LABCLIA [id number] [place] [address] [place] Eosinophils (Bld) [#/Vol] 0.16 10*3/uL Normal <0.46 [facility] Comment on above: Order Comment: Speci men Type: BLOOD SPECIMENOrdering Facility: [facility] Address: [address] [place] [address] Performed By: #### 5 7021-8 ####[facility] LABCLIA [id number] [place] [address] [place] Eosinophils/100 WBC (Bld) 2.6 % Normal [facility] Comment on above: Order Comment: Speci men Type: BLOOD SPECIMENOrdering Facility: [facility] Address: [address] [place] [address] Performed By: #### 5 7021-8 ####[facility] LABCLIA [id number] [place] [address] [place] Erythrocyte distribution width (RBC) [Ratio] 14.3 % Normal 11.5-15.0 [facility] Comment on above: Order Comment: Speci men Type: BLOOD SPECIMENOrdering Facility: [facility] Address: [address] [place] [address] Performed By: #### 5 7021-8 ####[facility] LABCLIA [id number] [place] [address] [place] Hematocrit (Bld) [Volume fraction] 44.2 % Normal 36.0-46.0 [facility] Comment on above: Order Comment: Speci men Type: BLOOD SPECIMENOrdering Facility: [facility] Address: [address] [place] [address] Performed By: #### 5 7021-8 ####[facility] LABCLIA [id number] [place] [address] [place] Hemoglobin (Bld) [Mass/Vol] 13.8 g/dL Normal 11.5-15.5 [facility] Comment on above: Order Comment: Speci men Type: BLOOD SPECIMENOrdering Facility: [facility] Address: [address] [place] [address] Performed By: #### 5 7021-8 ####[facility] LABCLIA [id number] [place] [address] [place] Immature granulocytes (Bld) [#/Vol] 10*3/uL Normal <0.10 [facility] Comment on above: Order Comment: Speci men Type: BLOOD SPECIMENOrdering Facility: [facility] Address: [address] [place] [address] Performed By: #### 5 7021-8 ####[facility] LABCLIA [id number] [place] [address] [place] Immature granulocytes/100 WBC (Bld) 0.3 % Normal [facility] Comment on above: Order Comment: Speci men Type: BLOOD SPECIMENOrdering Facility: [facility] Address: [address] [place] [address] Performed By: #### 5 7021-8 ####[facility] LABCLIA [id number] [place] [address] [place] Lymphocytes (Bld) [#/Vol] 2.48 10*3/uL Normal 1.00-4.00 [facility] Comment on above: Order Comment: Speci men Type: BLOOD SPECIMENOrdering Facility: [facility] Address: [address] [place] [address] Performed By: #### 5 7021-8 ####[facility] LABCLIA [id number] [place] [address] [place] Lymphocytes/100 WBC (Bld) 40.3 % Normal [facility] Comment on above: Order Comment: Speci men Type: BLOOD SPECIMENOrdering Facility: [facility] Address: [address] [place] [address] Performed By: #### 5 7021-8 ####[facility] LABIA [id number] [place] [address] [place] MCH (RBC) [Entitic mass] 28.4 pg Normal 26.0-34.0 [facility] Comment on above: Order Comment: Speci men Type: BLOOD SPECIMENOrdering Facility: [facility] Address: [address] [place] [address] Performed By: #### 5 7021-8 ####[facility] LABIA [id number] [place] [address] [place] MCHC (RBC) [Mass/Vol] 31.2 g/dL Normal 30.5-36.0 [facility] Comment on above: Order Comment: Speci men Type: BLOOD SPECIMENOrdering Facility: [facility] Address: [address] [place] [address] Performed By: #### 5 7021-8 ####[facility] LABIA [id number] [place] [address] [place] MCV (RBC) [Entitic vol] 90.9 fL Normal 80.0-100.0 [facility] Comment on above: Order Comment: Speci men Type: BLOOD SPECIMENOrdering Facility: [facility] Address: [address] [place] [address] Performed By: #### 5 7021-8 ####[facility] LABIA [id number] [place] [address] [place] Monocytes (Bld) [#/Vol] 0.54 10*3/uL Normal <0.87 [facility] Comment on above: Order Comment: Speci men Type: BLOOD SPECIMENOrdering Facility: [facility] Address: [address] [place] [address] Performed By: #### 5 7021-8 ####[facility] LABIA [id number] [place] [address] [place] Monocytes/100 WBC (Bld) 8.8 % Normal [facility] Comment on above: Order Comment: Speci men Type: BLOOD SPECIMENOrdering Facility: [facility] Address: [address] [place] [address] Performed By: #### 5 7021-8 ####[facility] LABCLIA [id number] [place] [address] [place] Neutrophils (Bld) [#/Vol] 2.94 10*3/uL Normal 1.45-7.50 [facility] Comment on above: Order Comment: Speci men Type: BLOOD SPECIMENOrdering Facility: [facility] Address: [address] [place] [address] Performed By: #### 5 7021-8 ####[facility] LABCLIA [id number] [place] [address] [place] Neutrophils/100 WBC (Bld) 47.8 % Normal [facility] Comment on above: Order Comment: Speci men Type: BLOOD SPECIMENOrdering Facility: [facility] Address: [address] [place] [address] Performed By: #### 5 7021-8 ####[facility] LABCLIA [id number] [place] [address] [place] Nucleated RBC (Bld) [#/Vol] 10*3/uL Normal <0.01 [facility] Comment on above: Order Comment: Speci men Type: BLOOD SPECIMENOrdering Facility: [facility] Address: [address] [place] [address] Performed By: #### 5 7021-8 ####[facility] LABCLIA [id number] [place] [address] [place] Nucleated RBC/100 WBC (Bld) [Ratio] 0.0 /100 WBC Normal [facility] Comment on above: Order Comment: Speci men Type: BLOOD SPECIMENOrdering Facility: [facility] Address: [address] [place] [address] Performed By: #### 5 7021-8 ####[facility] LABIA [id number] [place] [address] [place] Platelet mean volume (Bld) [Entitic vol] 10.0 fL Normal 9.0-12.7 [facility] Comment on above: Order Comment: Speci men Type: BLOOD SPECIMENOrdering Facility: [facility] Address: [address] [place] [address] Performed By: #### 5 7021-8 ####[facility] LABIA [id number] [place] [address] [place] Platelets (Bld) [#/Vol] 194 10*3/uL Normal 150-400 [facility] Comment on above: Order Comment: Speci men Type: BLOOD SPECIMENOrdering Facility: [facility] Address: [address] [place] [address] Performed By: #### 5 7021-8 ####[facility] LABIA [id number] [place] [address] [place] RBC (Bld) [#/Vol] 4.86 10*6/uL Normal 3.90-5.20 [facility] Comment on above: Order Comment: Speci men Type: BLOOD SPECIMENOrdering Facility: [facility] Address: [address] [place] [address] Performed By: #### 5 7021-8 ####[facility] LABIA [id number] [place] [address] [place] WBC (Bld) [#/Vol] 6.15 10*3/uL Normal 3.70-11.00 [facility] Comment on above: Order Comment: Speci men Type: BLOOD SPECIMENOrdering Facility: [facility] Address: [address] [place] [address] Performed By: #### 5 7021-8 ####[facility] ESTEVAN [id number] [place] [address] [place] CNOVon 06-27-2023 CNOV Office Visit (FAMPWS ) ALBA FLORES ([id number]) 1950 F Date Time Provider Department 06/27/23 10:00 AM [facility] During your visit today, we recorded the following information about you: Pulse Blood pressure Weight 59/minute 126/74 160.1 kg Trisha Tate, LIAISON OFFICER.ACTUARIAL MANAGER 06/27/2023 10:15 AM Addendum This is a 73 year old female who presents today with: Patient presents with: Follow Up: 3 month exam HISTORY OF PRESENT ILLNESS: Alba Flores is a 73 year old female. Patient presents with: Follow Up: 3 month exam Recently had tachycardia- had echo then. CECILIA- wears CPAP every night REVIEW OF SYSTEMS GENERAL: 10 lb weight gain, malaise or fevers/chills HEENT: Occasional headaches, No changes in hearing, pierre.poor vision due to cataracts. NECK: Negative for lumps, goiter, pain and significant neck swelling RESPIRATORY: Occ. cough, hemoptysis, wheezing, dyspnea or shortness of breath O2 1L CARDIOVASCULAR: Negative for chest pain, leg swelling, orthopnea, or palpitations GI: No nausea, vomiting, or diarrhea/constipation . No hematochezia/melena. No heartburn or reflux symptoms. : No history of dysuria, frequency or incontinence MUSCULOSKELETAL: + joint pain or swelling right thumb. SKIN: Negative for lesions, rash, and itching ENDOCRINE: + cold d/t blood thinner, no heat intolerance, polyuria, polydipsia NEURO: No history syncope, seizures or tremors MOOD: Negative for depression, anxiety, or suicidal ideation. PAST MEDICAL HISTORY: PAST MEDICAL HISTORY Diagnosis Date Acute kidney injury (EKATERINA) with acute tubular necrosis (ATN) (HCC) Atrial fibrillation (HCC) Atrial flutter (HCC) w/ RVR Borderline diabetes 12/2014 Chronic atrial fibrillation (HCC) COPD (chronic obstructive pulmonary disease) (HCC) Endometrial cancer, grade I (HCC) 12/2014 GERD (gastroesophageal reflux disease) HTN (hypertension) 12/2014 Morbid obesity with BMI of 60.0-69.9, adult (HCC) CECILIA (obstructive sleep apnea) Osteopenia Palpitations PAST SURGICAL HISTORY Procedure Laterality Date APPENDECTOMY CARDIAC CATH Left LAPS SUPRACRV HYSTERECT 250 GM/< RMVL TUBE/OVAR 2014 MIDLINE INSERTION/CONSULT 02/16/2018 TUBAL LIGATION HX ALLERGIES Asa [Aspirin] and Propoxyphene MEDICATIONS Current Outpatient Medications Medication Sig metoprolol succinate ER (TOPROL XL) 25 mg 24 hr tablet Take 1 tablet by mouth once daily. sacubitril-valsartan (ENTRESTO) 24-26 mg tablet Take 1 tablet by mouth two times a day. amiodarone (PACERONE) 200 mg tablet Take 1 tablet by mouth once daily. omeprazole (PRILOSEC) 20 mg capsule Take 1 capsule by mouth once daily. potassium chloride (K-TAB) 10 mEq tablet Take 1 tablet by mouth daily with breakfast. furosemide (LASIX) 40 mg tablet Take 1 tablet by mouth twice daily. (Patient taking differently: Take 40 mg by mouth once daily.) apixaban (ELIQUIS) 5 mg tab(s) Take 5 mg by mouth twice daily. TRELEGY ELLIPTA 100-62.5-25 mcg dsdv Inhale 1 puff once daily calcium carbonate-vitamin D3 500-100 mg-unit chewable tablet Take 1 tablet by mouth once daily. OXYGEN, HOME THERAPY, 2 L/min by Nasal Cannula route as directed. (Patient taking differently: 1 L/min by Nasal Cannula route as directed.) No current facility-administered medications for this visit. FAMILY HISTORY Problem Relation Age of Onset COPD Mother Heart Mother Heart Father Colon Cancer Sister No Known Problems Brother Cancer Maternal Grandmother Heart Attack Maternal Grandfather No Known Problems Paternal Grandmother No Known Problems Paternal Grandfather Diabetes Sister Hypertension Son No Known Problems Son No Known Problems Son No Known Problems Daughter Hypertension Daughter Social History Tobacco Use Smoking status: Former Packs/day: 1.00 Years: 5.00 Additional pack years: 0.00 Total pack years: 5.00 Types: Cigarettes Quit date: 04/17/1984 Years since quittin.2 Smokeless tobacco: Never Tobacco comments: still smokes in the home Vaping Use Vaping Use: Never used Substance Use Topics Alcohol use: Not Currently Comment: rarely Drug use: No EXAM: BP 126/74 Pulse (!) 59 Wt (!) 160.1 kg (353 lb) SpO2 94% BMI 64.56 kg/m? PHYSICAL EXAM: General Appearance: Well appearing, alert, in no acute distress, well-hydrated, well nourished. and Morbidly obese. Skin: Skin color, texture, turgor normal, no suspicious rashes or lesions. Head: Normocephalic, no masses, lesions, tenderness or abnormalities. Neck: Supple, no adenopathy; thyroid symmetric, normal size, no bruits. Lungs: Lungs clear to auscultation. No wheezing, rhonchi, rales. 2+ pitting lower ext. Edema pierre. Heart: RRR without murmur, gallop, or rubs. No ectopy. Abdomen: Normal abdominal exam, Abdomen soft, non-tender. Bowel sounds normal. No masses, organomegaly. (more content not included)... Normal [facility] Comprehensive metabolic 2000 panelon 06-27-2023 Albumin [Mass/Vol] 4.2 g/dL 3.9 - 4.9 g/dL [facility] ALP [Catalytic activity/Vol] 99 U/L 34 - 123 U/L [facility] ALT [Catalytic activity/Vol] 24 U/L 7 - 38 U/L [facility] Anion gap [Moles/Vol] 11 mmol/L 9 - 18 mmol/L [facility] AST [Catalytic activity/Vol] 24 U/L 13 - 35 U/L [facility] Bilirubin [Mass/Vol] 0.3 mg/dL 0.2 - 1 .3 mg/dL [facility] Calcium [Mass/Vol] 9.3 mg/dL 8.5 - 10. 2 mg/dL [facility] Chloride [Moles/Vol] 107 mmol/L High 97 - 10 5 mmol/L [facility] CO2 [Moles/Vol] 27 mmol/L 22 - 30 mmol/L [facility] Creatinine [Mass/Vol] 1.35 mg/dL High 0.58 - 0.96 mg/dL [facility] Estimated Glomerular Filtration Rate 41 mL/min/1.73m Low >=60 mL/min/1.73m [facility] Glucose [Mass/Vol] 105 mg/dL High 74 - 99 mg/dL [facility] Potassium [Moles/Vol] 4.8 mmol/L 3.7 - 5.1 mmol/L [facility] Protein [Mass/Vol] 6.6 g/dL 6.3 - 8.0 g/dL [facility] Sodium [Moles/Vol] 145 mmol/L High 136 - 144 mmol/L [facility] Urea nitrogen [Mass/Vol] 24 mg/dL High 7 - 21 mg/dL [facility] Albumin [Mass/Vol] 4.2 g/dL Normal 3.9-4.9 [facility] Comment on above: Order Comment: Speci men Type: BLOOD SPECIMENOrdering Facility: [facility] Address: [address] [place] [address] Performed By: #### 2 432-8, , LIPNF ####[facility] LABCLIA [id number] [place] [address] [place] ALP [Catalytic activity/Vol] 99 U/L Normal 34-123 [facility] Comment on above: Order Comment: Speci men Type: BLOOD SPECIMENOrdering Facility: [facility] Address: [address] [place] [address] Performed By: #### 2 4323-8, , LIPNF ####[facility] LABCLIA [id number] [place] [address] [place] ALT [Catalytic activity/Vol] 24 U/L Normal 7-38 [facility] Comment on above: Order Comment: Speci men Type: BLOOD SPECIMENOrdering Facility: [facility] Address: [address] [place] [address] Performed By: #### 2 4323-8, , LIPNF ####[facility] LABCLIA [id number] [address] [id number] [address] [place] Anion gap [Moles/Vol] 11 mmol/L Normal 9-18 [facility] Comment on above: Order Comment: Speci men Type: BLOOD SPECIMENOrdering Facility: [facility] Address: [address] [place] [address] Performed By: #### 2 4323-8, , LIPNF ####[facility] LABCLIA [id number] [place] [address] [place] AST [Catalytic activity/Vol] 24 U/L Normal 13-35 [facility] Comment on above: Order Comment: Speci men Type: BLOOD SPECIMENOrdering Facility: [facility] Address: [address] [place] [address] Performed By: #### 2 432-8, , LIPNF ####[facility] LABCLIA [id number] [place] [address] [place] Bilirubin [Mass/Vol] 0.3 mg/dL Normal 0.2-1.3 [facility] Comment on above: Order Comment: Speci men Type: BLOOD SPECIMENOrdering Facility: [facility] Address: [address] [place] [address] Performed By: #### 2 432-8, , LIPNF ####[facility] LABCLIA [id number] [place] [address] [place] Calcium [Mass/Vol] 9.3 mg/dL Normal 8.5-10.2 [facility] Comment on above: Order Comment: Speci men Type: BLOOD SPECIMENOrdering Facility: [facility] Address: [address] [place] [address] Performed By: #### 2 4323-8, , LIPNF ####[facility] LABCLIA [id number] [place] [id number] [place] Chloride [Moles/Vol] 107 mmol/L High 97-105 [facility] Comment on above: Order Comment: Speci men Type: BLOOD SPECIMENOrdering Facility: [facility] Address: [address] [place] [address] Performed By: #### 2 4323-8, , LIPNF ####[facility] LABCLIA [id number] [address] [address] [place] CO2 [Moles/Vol] 27 mmol/L Normal 22-30 [facility] Comment on above: Order Comment: Speci men Type: BLOOD SPECIMENOrdering Facility: [facility] Address: [address] [place] [address] Performed By: #### 2 4323-8, , LIPNF ####[facility] LABCLIA [id number] [place] [address] [place] Creatinine [Mass/Vol] 1.35 mg/dL High 0.58-0.96 [facility] Comment on above: Order Comment: Speci men Type: BLOOD SPECIMENOrdering Facility: [facility] Address: [address] [place] [address] Performed By: #### 2 4323-8, , LIPNF ####[facility] LABCLIA [id number] [place] [address] [place] Creatinine and Glomerular filtration rate.predicted panel (S/P/Bld) 41 mL/min/1.73m??? Low >=60 [facility] Comment on above: Order Comment: Speci men Type: BLOOD SPECIMENOrdering Facility: [facility] Address: [address] [place] [address] Result Comment: Ivy mated Glomerular Filtration Rate (eGFR) is calculated using the 2020 CKD-EPI creatinine equation. This equation utilizes serum creatinine, sex, and age as parameters. The creatinine assay has traceable calibration to isotope dilution-mass spectrometry. Refer to KDIGO guidelines for clinical interpretation. In patients with unstable renal function, e.g. those with acute kidney injury, the eGFR may not accurately reflect actual GFR. Performed By: #### 2 4323-8, , LIPNF ####[facility] LABCLIA [id number] [place] [address] [place] Glucose [Mass/Vol] 105 mg/dL High 74-99 [facility] Comment on above: Order Comment: Speci men Type: BLOOD SPECIMENOrdering Facility: [facility] Address: [address] [place] [address] Result Comment: The [place] Diabetes Association (ADA) provides guidance for cutoff values for fasting glucose and random glucose. The ADA defines fasting as no caloric intake for at least 8 hours. Fasting plasma glucose results between 100 to 125 [...] Standards of Medical Care in Diabetes 2016, [place] Diabetes Association. Diabetes Care. 2016.39(Suppl 1). Performed By: #### 2 4323-8, , LIPNF ####[facility] LABCLIA [id number] [place] [address] [place] Potassium [Moles/Vol] 4.8 mmol/L Normal 3.7-5.1 [facility] Comment on above: Order Comment: Speci men Type: BLOOD SPECIMENOrdering Facility: [facility] Address: [address] [place] [address] Performed By: #### 2 4323-8, , LIPNF ####[facility] LABIA [id number] [place] [address] [place] Protein [Mass/Vol] 6.6 g/dL Normal 6.3-8.0 [facility] Comment on above: Order Comment: Speci men Type: BLOOD SPECIMENOrdering Facility: [facility] Address: [address] [place] [address] Performed By: #### 2 4323-8, 49559-1, LIPNF ####[facility] LABCLIA [id number] [place] [address] [place] Sodium [Moles/Vol] 145 mmol/L High 136-144 [facility] Comment on above: Order Comment: Speci men Type: BLOOD SPECIMENOrdering Facility: [facility] Address: [address] [place] [address] Performed By: #### 2 4323-8, 74298-7, LIPNF ####[facility] LABIA [id number] [place] [address] [place] Urea nitrogen [Mass/Vol] 24 mg/dL High 7-21 [facility] Comment on above: Order Comment: Speci men Type: BLOOD SPECIMENOrdering Facility: [facility] Address: [address] [place] [address] Performed By: #### 2 4323-8, , LIPNF ####[facility] LABIA [id number] [place] [address] [place] HbA1c (Bld)on 06-27-2023 Average glucose Estimated from glycated hemoglobin (Bld) [Mass/Vol] 120 mg/dL Normal [facility] Comment on above: Order Comment: Speci men Type: BLOOD SPECIMENOrdering Facility: [facility] Address: [address] [place] [address] Result Comment: eAG: (Estimated average glucose) is a calculated value from HgbA1c and is technical support representative of the average blood glucose level in the last 2-3 month period. Performed By: #### 5 5454-3 ####[facility] [id number] [place] [address] [place] HbA1c (Bld) [Mass fraction] 5.8 % High 4.3-5.6 [facility] Comment on above: Order Comment: Speci men Type: BLOOD SPECIMENOrdering Facility: [facility] Address: [address] [place] [address] Result Comment: [place] Diabetes Association guidelines indicate that patients with HgbA1c in the range 5.7-6.4% are at increased risk for development of diabetes, and intervention by lifestyle modification may be beneficial. HgbA1c greater or equal to 6.5% is considered diagnostic of diabetes. Performed By: #### 5 5454-3 ####[facility] LABCLIA [id number] [place] [address] [place] LIPID PANEL, NONFASTINGon Cholesterol [Mass/Vol] 211 mg/dL High <200 mg/dL [facility] HDL Cholesterol, Nonfasting 55 mg/dL >39 mg/dL [facility] LDL Cholesterol, Nonfasting 130 mg/dL High <100 mg/dL [facility] LDL/HDL Ratio, Nonfasting 2.36 mg/dL <2.54 mg/dL [facility] Non HDL Cholesterol, Nonfasting 156 mg/dL High <130 mg/dL [facility] Total Chol/HDL Ratio, Nonfasting 3.84 mg/dL <5.10 mg/dL [facility] Triglycerides, Nonfasting 128 mg/dL <150 mg/dL [facility] VLDL Cholesterol, Nonfasting 26 mg/dL <30 mg/dL [facility] Cholesterol [Mass/Vol] 211 mg/dL High <200 Cl [facility] Comment on above: Order Comment: Speci men Type: BLOOD SPECIMENOrdering Facility: [facility] Address: [address] [place] [address] Result Comment: <200 mg/dL, Desirable 200-239 mg/dL, Borderline high >239 mg/dL, High Performed By: #### 2 4323-8, 93462-1, LIPNF ####[facility] LABCLIA [id number] [place] [address] [place] HDL CHOLESTEROL, NF 55 mg/dL Normal >39 [facility] Comment on above: Order Comment: Speci men Type: BLOOD SPECIMENOrdering Facility: [facility] Address: [address] [place] [address] Result Comment: 40-5 9 mg/dL, Acceptable >59 mg/dL, High: Negative risk factor for coronary heart disease <40 mg/dL, Low: Positive risk factor for coronary heart disease Performed By: #### 2 4323-8, 67419-3, LIPNF ####[facility] LABCLIA [id number] [place] [address] [place] LDL CHOLESTEROL, NF 130 mg/dL High <100 [facility] Comment on above: Order Comment: Speci men Type: BLOOD SPECIMENOrdering Facility: [facility] Address: [address] [place] [address] Result Comment: <100 mg/dL, Optimal 100-129 mg/dL, Near optimal/above optimal 130-159 mg/dL, Borderline high 160-189 mg/dL, High >189 mg/dL, Very high Secondary prevention optimal LDL Cholesterol levels are recommended to be < 70 mg/dL Performed By: #### 2 4323-8, , LIPNF ####[facility] LABCLIA [id number] [address] [place] LDL/HDL RATIO, NF 2.36 mg/dL Normal <2.54 [facility] Comment on above: Order Comment: Speci men Type: BLOOD SPECIMENOrdering Facility: [facility] Address: [address] [place] [address] Result Comment: Refe rence: 1. National Cholesterol Education Program ATP III Guideline At-A-Glance Quick Desk Reference: National Heart, Lung, and Blood Cub Run. National Institutes of Health. 2001: NIH Publication No. 01-3305. 2. An International Atherosclerosis Society position paper: global recommendations for the management of dyslipidemia: executive summary, Atherosclerosis. 2014: 232(2):410-413. Performed By: #### 2 4323-8, 98650-6, LIPNF ####[facility] LABCLIA [id number] [place] [address] [place] NON HDL CHOL, NF 156 mg/dL High <130 [facility] Comment on above: Order Comment: Speci men Type: BLOOD SPECIMENOrdering Facility: [facility] Address: [address] [place] [address] Result Comment: <130 mg/dL, Optimal 130-159 mg/dL, Near optimal/above optimal 160-189 mg/dL, Borderline high 190-219 mg/dL, High >219 mg/dL, Very high Secondary prevention optimal non HDL Cholesterol levels are recommended to be <100 mg/dL Performed By: #### 2 4323-8, 13576-1, LIPNF ####[facility] LABCLIA [id number] [place] [address] [place] T CHOL/HDL RATIO NF 3.84 mg/dL Normal <5.10 [facility] Comment on above: Order Comment: Speci men Type: BLOOD SPECIMENOrdering Facility: [facility] Address: [address] [place] [address] Performed By: #### 2 4323-8, , LIPNF ####[facility] LABCLIA [id number] [place] [address] [place] TRIGLYCERIDES, NF 128 mg/dL Normal <150 [facility] Comment on above: Order Comment: Speci men Type: BLOOD SPECIMENOrdering Facility: [facility] Address: [address] [place] [address] Result Comment: <150 mg/dL, Normal 150-199 mg/dL, Borderline high 200-499 mg/dL, High >499 mg/dL, Very high Performed By: #### 2 4323-8, , LIPNF ####[facility] LABCLIA [id number] [place] [address] [place] VLDL CHOLESTEROL, NF 26 mg/dL Normal <30 [facility] Comment on above: Order Comment: Speci men Type: BLOOD SPECIMENOrdering Facility: [facility] Address: [address] [place] [address] Performed By: #### 2 4323-8, 64406-8, LIPNF ####[facility] LABCLIA [id number] [place] [id number] [place] MAGNESIUM BLDon 06-27-2023 Magnesium [Mass/Vol] 2.4 mg/dL High 1.7 - 2 .3 mg/dL [facility] Magnesium SerPl-mCncon 06-26 Magnesium [Mass/Vol] 2.4 mg/dL High 1.7-2.3 [facility] Comment on above: Order Comment: Speci men Type: BLOOD SPECIMENOrdering Facility: [facility] Address: [address] [place] [address] Performed By: #### 2 4323-8, 16149-8, LIPNF ####[facility] LABCLIA [id number] [place] [address] [place] CNPSarah 05-01-2023 CNPN Telephone (FAMPWS) ALBA FLORES ([id number]) 1950 F Date Time Provider Department 05/01/23 ALFONZO SPEARS [facility] During your visit today, we recorded the following information about you: Alfonzo Spears MD 05/01/2023 5:35 PM Signed Got request for gloves and incontinence pads. It requires a specific dx to cover. Has she seen anyone in the past for incontinence? Does she have issues when coughing or sneezing etc? Justina Flower RN 05/02/2023 9:19 AM Signed Pt called and is notified of providers message and questions. Pt states she goes through her insurance because it's cheaper. She has not gone to anyone for incontinence. Pt denies having trouble with incontinence and coughing or sneezing. She states when she takes her water pill she sometimes dribbles before she can make it to the bathroom, so she wears a pad. ANGEL Campbell William J, MD 05/02/2023 12:26 PM Signed Ok, will try and see if can be covered. Form completed Trisha Andrew LPN 05/02/2023 3:31 PM Signed Form faxed to number provided on form Allergies As of Date: 05/01/2023 Noted Allergy Reaction ASA (ASPIRIN) 01/16/2015 8 - GI Upset PROPOXYPHENE 01/25/2019 14 - Other: See Comments Comments: Dizziness/ syncope Date Reviewed: 03/20/2023 Reviewed by: Laura Flores - Fully Assessed Reason for Visit: Patient Question [1477] Primary Visit Diagnosis:Urinary incontinence, unspecified type [R32] Prescriptions as of 05/02/2023 - sacubitril-valsartan (ENTRESTO) 24-26 mg tablet Take 1 tablet by mouth two times a day. - amiodarone (PACERONE) 200 mg tablet Take 1 tablet by mouth once daily. - omeprazole (PRILOSEC) 20 mg capsule Take 1 capsule by mouth once daily. - potassium chloride (K-TAB) 10 mEq tablet Take 1 tablet by mouth daily with breakfast. - metoprolol succinate ER (TOPROL XL) 25 mg 24 hr tablet take 1 tablet by mouth once daily - furosemide (LASIX) 40 mg tablet Take 1 tablet by mouth twice daily. - apixaban (ELIQUIS) 5 mg tab(s) Take 5 mg by mouth twice daily. - TRELEGY ELLIPTA 100-62.5-25 mcg dsdv Inhale 1 puff once daily - calcium carbonate-vitamin D3 500-100 mg-unit chewable tablet Take 1 tablet by mouth once daily. - OXYGEN, HOME THERAPY, 2 L/min by Nasal Cannula route as directed. Problem List As Of Date 05/01/2023 Noted Resolved HTN (hypertension) [I10] Borderline diabetes [R73.03] 12/16/2014 History of endometrial cancer [Z85.42] 01/17/2015 Morbid obesity with BMI of 60.0-69.9, adult (HC*01/17/2015 Osteopenia [M85.80] 08/24/2015 Atrial flutter with rapid ventricular response *12/14/2017 02/16/2018 Atrial fibrillation (HCC) [I48.91] 02/11/2018 GERD without esophagitis [K21.9] 02/11/2018 COPD (chronic obstructive pulmonary disease) (H*02/11/2018 Obesity, Class III, BMI >= 40 [E66.01] 02/11/2018 02/18/2019 Respiratory failure (HCC) [J96.90] 02/12/2018 02/21/2018 EKATERINA (acute kidney injury) (HCC) [N17.9] 02/12/2018 02/21/2018 Hemothorax on left [J94.2] 02/15/2018 10/17/2018 Cardiovascular stress test abnormal [R94.39] 01/08/2018 Cardiomyopathy of undetermined type (HCC) [I42.*06/27/2018 CECILIA (obstructive sleep apnea) [G47.33] 06/27/2018 Stage 3 chronic kidney disease (HCC) [N18.30] 03/25/2019 Hypertensive kidney disease with chronic kidney*05/10/2022 Encounter Status:Closed by TRISHA ANDREW on 05/02/23 Normal [facility] Basic metabolic 2000 panelon 03-21-2023 Anion gap [Moles/Vol] 16 mmol/L 9 - 18 mmol/L [facility] Calcium [Mass/Vol] 9.4 mg/dL 8.5 - 10. 2 mg/dL [facility] Chloride [Moles/Vol] 103 mmol/L 97 - 10 5 mmol/L [facility] CO2 [Moles/Vol] 25 mmol/L 22 - 30 mmol/L [facility] Creatinine [Mass/Vol] 1.33 mg/dL High 0.58 - 0.96 mg/dL [facility] Estimated Glomerular Filtration Rate 42 mL/min/1.73m Low >=60 mL/min/1.73m [facility] Glucose [Mass/Vol] 94 mg/dL 74 - 99 mg/dL [facility] Potassium [Moles/Vol] 3.8 mmol/L 3.7 - 5.1 mmol/L [facility] Sodium [Moles/Vol] 144 mmol/L 136 - 144 mmol/L [facility] Urea nitrogen [Mass/Vol] 17 mg/dL 7 - 21 mg/dL [facility] TSH BLDon 03-21-2023 TSH Qn 3.490 m[IU]/L 0.270 - 4.200 mIU/L [facility] Basic metabolic 2000 panelon 03-20-2023 Anion gap [Moles/Vol] 16 mmol/L Normal 9-18 [facility] Comment on above: Order Comment: Speci men Type: BLOOD SPECIMENOrdering Facility: [facility] Address: [address] [place] [address] Performed By: #### 3 053-6, T4FTI, 14192-1 ####[facility] LABCLIA [id number] [place] [address] [place] Calcium [Mass/Vol] 9.4 mg/dL Normal 8.5-10.2 [facility] Comment on above: Order Comment: Speci men Type: BLOOD SPECIMENOrdering Facility: [facility] Address: [address] [place] [address] Performed By: #### 3 053-6, T4FTI, 57666-1 ####[facility] LABCLIA [id number] [place] [address] [place] Chloride [Moles/Vol] 103 mmol/L Normal 97-105 [facility] Comment on above: Order Comment: Speci men Type: BLOOD SPECIMENOrdering Facility: [facility] Address: [address] [place] [address] Performed By: #### 3 053-6, T4FTI, 48303-5 ####[facility] LABCLIA [id number] [place] [address] [place] CO2 [Moles/Vol] 25 mmol/L Normal 22-30 [facility] Comment on above: Order Comment: Speci men Type: BLOOD SPECIMENOrdering Facility: [facility] Address: [address] [place] [address] Performed By: #### 3 053-6, T4FTI, 20677-7 ####[facility] LABCLIA [id number] [place] [address] [place] Creatinine [Mass/Vol] 1.33 mg/dL High 0.58-0.96 [facility] Comment on above: Order Comment: Jayme samuel Type: BLOOD SPECIMENOrdering Facility: [facility] Address: [address] [place] [address] Performed By: #### 3 053-6, T4FTI, 80132-3 ####[facility] LABCLIA [id number] [place] [address] [place] Creatinine and Glomerular filtration rate.predicted panel (S/P/Bld) 42 mL/min/1.73m??? Low >=60 [facility] Comment on above: Order Comment: Jayme samuel Type: BLOOD SPECIMENOrdering Facility: [facility] Address: [address] [place] [address] Result Comment: Ivy mated Glomerular Filtration Rate (eGFR) is calculated using the 2020 CKD-EPI creatinine equation. This equation utilizes serum creatinine, sex, and age as parameters. The creatinine assay has traceable calibration to isotope dilution-mass spectrometry. Refer to KDIGO guidelines for clinical interpretation. In patients with unstable renal function, e.g. those with acute kidney injury, the eGFR may not accurately reflect actual GFR. Performed By: #### 3 053-6, T4FT, 60610-2 ####[facility] LABCLIA [id number] [place] [address] [place] Glucose [Mass/Vol] 94 mg/dL Normal 74-99 [facility] Comment on above: Order Comment: Jayme samuel Type: BLOOD SPECIMENOrdering Facility: [facility] Address: [address] [place] [address] Result Comment: The [place] Diabetes Association (ADA) provides guidance for cutoff values for fasting glucose and random glucose. The ADA defines fasting as no caloric intake for at least 8 hours. Fasting plasma glucose results between 100 to 125 [...] Standards of Medical Care in Diabetes 2016, [place] Diabetes Association. Diabetes Care. 2016.39(Suppl 1). Performed By: #### 3 053-6, T4FTI, 26051-9 ####[facility] LABCLIA [id number] [place] [address] [place] Potassium [Moles/Vol] 3.8 mmol/L Normal 3.7-5.1 [facility] Comment on above: Order Comment: Jayme samuel Type: BLOOD SPECIMENOrdering Facility: [facility] Address: [address] [place] [address] Performed By: #### 3 053-6, T4FTI, 48426-7 ####[facility] LABIA [id number] [place] [address] [place] Sodium [Moles/Vol] 144 mmol/L Normal 136-144 [facility] Comment on above: Order Comment: Jayme samuel Type: BLOOD SPECIMENOrdering Facility: [facility] Address: [address] [place] [address] Performed By: #### 3 053-6, T4FT, ####[facility] LABIA [id number] [place] [address] [place] Urea nitrogen [Mass/Vol] 17 mg/dL Normal 7-21 [facility] Comment on above: Order Comment: Jayme samuel Type: BLOOD SPECIMENOrdering Facility: [facility] Address: [address] [place] [address] Performed By: #### 3 053-6, T4FTI, ####[facility] LABIA [id number] [place] [id number] [place] CNOVon 03-20-2023 CNOV Office Visit (FAMPWS ) ALBA FLORES ([id number]) 1950 F Date Time Provider Department 03/20/23 2:00 PM ALFONZO SPEARS During your visit today, we recorded the following information about you: Pulse Blood pressure Weight Height 68/minute 108/74 156.8 kg 1.575 m Alfonzo Spears MD 03/20/2023 2:30 PM Signed Patient presents with: Hospital Follow Up HPI: Patient presents today for office visit for hospital follow up. Today denies any current chest pain or shortness of breath Went to [facility] ER on 03/10/23 due to chest pain and HR of 190. Was observed overnight. Apparently had stopped her amiodarone on her own. Was resumed in the hospital. Converted while in hospital. Has had previous ablation in the past. Dx with Atrial fibrillation Consulted with Cardiology Chest X-ray: showed right basilar and left perihilar atelectasis versus residual infiltrate. No pleural effusion or pneumothorax. Echo: showed mild concentric left ventricular hypertrophy, left ventricular ejection fraction is 65%, stage 1 diastolic dysfunction and left atrium is mildly enlarged. Started on Amiodarone 200 mg daily. No chest pain or shortness of breath. No edema. No palpitations. Potassium iwas slightly low and sugars were slightly up. Had some renal insufficiency and her tsh was slightly high. To schedule ablation with Dr. Velasquez at [facility] on 03/17/23. MEDICATIONS: Current Outpatient Medications Medication Sig omeprazole (PRILOSEC) 20 mg capsule Take 1 capsule by mouth once daily. potassium chloride (K-TAB) 10 mEq tablet Take 1 tablet by mouth daily with breakfast. metoprolol succinate ER (TOPROL XL) 25 mg 24 hr tablet take 1 tablet by mouth once daily furosemide (LASIX) 40 mg tablet Take 1 tablet by mouth twice daily. amiodarone (PACERONE) 100 mg tablet Take 1 tablet by mouth once daily. sacubitril-valsartan (ENTRESTO) 24-26 mg tablet Take 1 tablet by mouth twice daily. apixaban (ELIQUIS) 5 mg tab(s) Take 5 mg by mouth twice daily. TRELEGY ELLIPTA 100-62.5-25 mcg dsdv Inhale 1 puff once daily calcium carbonate-vitamin D3 500-100 mg-unit chewable tablet Take 1 tablet by mouth once daily. OXYGEN, HOME THERAPY, 2 L/min by Nasal Cannula route as directed. No current facility-administered medications for this visit. ALLERGIES: ALLERGIES Allergen Reactions Asa [Aspirin] GI Upset Propoxyphene Other: See Comments Dizziness/ syncope PAST MEDICAL HISTORY Diagnosis Date Acute kidney injury (EKATERINA) with acute tubular necrosis (ATN) (HCC) Atrial fibrillation (HCC) Atrial flutter (HCC) w/ RVR Borderline diabetes 12/2014 Chronic atrial fibrillation (HCC) COPD (chronic obstructive pulmonary disease) (HCC) Endometrial cancer, grade I (HCC) 12/2014 GERD (gastroesophageal reflux disease) HTN (hypertension) 12/2014 Morbid obesity with BMI of 60.0-69.9, adult (HCC) CECILIA (obstructive sleep apnea) Osteopenia Palpitations PAST SURGICAL HISTORY Procedure Laterality Date APPENDECTOMY CARDIAC CATH Left LAPS SUPRACRV HYSTERECT 250 GM/< RMVL TUBE/OVAR 2014 MIDLINE INSERTION/CONSULT 02/16/2018 TUBAL LIGATION HX FAMILY HISTORY Problem Relation Age of Onset COPD Mother Heart Mother Heart Father Colon Cancer Sister No Known Problems Brother Cancer Maternal Grandmother Heart Attack Maternal Grandfather No Known Problems Paternal Grandmother No Known Problems Paternal Grandfather Diabetes Sister Hypertension Son No Known Problems Son No Known Problems Son No Known Problems Daughter Hypertension Daughter Social History Tobacco Use Smoking status: Former Packs/day: 1.00 Years: 5.00 Additional pack years: 0.00 Total pack years: 5.00 Types: Cigarettes Quit date: 04/17/1984 Years since quittin.9 Smokeless tobacco: Never Tobacco comments: still smokes in the home Vaping Use Vaping Use: Never used Substance Use Topics Alcohol use: Not Currently Comment: rarely Drug use: No Reviewed current medications, allergies, past medical history, surgical history, family history and social history today. REVIEW OF SYSTEMS All other reviewed and negative other than HPI. VITALS: BP 108/74 Pulse 68 Ht 157.5 cm (5' 2 ) Wt (!) 156.8 kg (345 lb 9.6 oz) SpO2 95% BMI 63.21 kg/m? Last 4 Encounter Wt Readings: Date: Wt: 12/09/2022 159.3 kg (351 lb 3.2 oz) 05/12/2022 156.5 kg (345 lb) 12/14/2021 155.1 kg (342 lb) 09/14/2021 158.3 kg (349 lb) PHYSICAL EXAMINATION: General appearance: Well appearing, alert, in no acute distress, well-hydrated, well nourished. Skin: Skin color, texture, turgor normal, no suspicious rashes or lesions Head: Normocephalic, no masses, lesions, tenderness or abnormalities Lungs: Lungs clear to auscultation. No wheezing, rhonchi, rales Heart: RRR without murmur, gallop, or rubs (more content not included)... Normal [facility] T3 SerPl-mCncon 03-20-2023 T3 [Mass/Vol] 113 ng/dL Normal 79-165 [facility] Comment on above: Order Comment: Speci men Type: BLOOD SPECIMENOrdering Facility: [facility] Address: [address] [place] [address] Performed By: #### 3 053-6, T4FTI, 06426-8 ####[facility] [id number] [place] [address] [place] T4/FTI/T4Uon 03-20-2023 FTI 9.1 ug/dL Normal 5.3-10.8 [facility] Comment on above: Order Comment: Speci men Type: BLOOD SPECIMENOrdering Facility: [facility] Address: [address] [place] [address] Performed By: #### 3 053-6, T4FTI, 80063-2 ####[facility] LABIA [id number] [place] [address] [place] T4 [Mass/Vol] 10.4 ug/dL High 5.5-10.2 [facility] Comment on above: Order Comment: Speci men Type: BLOOD SPECIMENOrdering Facility: [facility] Address: [address] [place] [address] Performed By: #### 3 053-6, T4FTI, 66196-3 ####[facility] LABCLIA [id number] [place] [address] [place] T4 uptake [Mass/Vol] 1.14 Normal 0.91-1.19 [facility] Comment on above: Order Comment: Speci men Type: BLOOD SPECIMENOrdering Facility: [facility] Address: [address] [place] [address] Performed By: #### 3 053-6, T4FTI, 30519-6 ####[facility] LABCLIA [id number] [place] [address] [place] TSH SerPl-aCncon 03-20-2023 TSH Qn 3.490 m[IU]/L Normal 0.270-4.200 [facility] Comment on above: Order Comment: Speci men Type: BLOOD SPECIMENOrdering Facility: [facility] Address: [address] [place] [address] Performed By: #### 3 016-3 ####[facility] LABIA [id number] [place] [address] [place] CBC W Auto Differential pane l (Bld)on 05-12-2022 Basophils (Bld) [#/Vol] <0.11 k/uL [facility] Basophils/100 WBC (Bld) 0.2 % [facility] Differential cell count method Nom (Bld) Auto [facility] Eosinophils (Bld) [#/Vol] 0.13 10*3/uL <0.46 k/uL [facility] Eosinophils/100 WBC (Bld) 2.7 % [facility] Erythrocyte distribution width (RBC) [Ratio] 13.1 % 11.5 - 15.0 % [facility] Hematocrit (Bld) [Volume fraction] 45.2 % 36.0 - 46.0 % [facility] Hemoglobin (Bld) [Mass/Vol] 14.2 g/dL 11.5 - 15.5 g/dL [facility] Immature granulocytes (Bld) [#/Vol] <0.10 k/uL [facility] Immature granulocytes/100 WBC (Bld) 0.0 % [facility] Lymphocytes (Bld) [#/Vol] 1.57 10*3/uL 1.00 - 4.00 k/uL [facility] Lymphocytes/100 WBC (Bld) 32.2 % [facility] MCH (RBC) [Entitic mass] 28.6 pg 26.0 - 34.0 pg [facility] MCHC (RBC) [Mass/Vol] 31.4 g/dL 30.5 - 36.0 g/dL [facility] MCV (RBC) [Entitic vol] 91.1 fL 80.0 - 100.0 fL [facility] Monocytes (Bld) [#/Vol] 0.44 10*3/uL <0.87 k/uL [facility] Monocytes/100 WBC (Bld) 9.0 % [facility] Neutrophils (Bld) [#/Vol] 2.72 10*3/uL 1.45 - 7.50 k/uL [facility] Neutrophils/100 WBC (Bld) 55.9 % [facility] Nucleated RBC (Bld) [#/Vol] <0.01 k/uL [facility] Nucleated RBC/100 WBC (Bld) [Ratio] 0.0 /100 WBC [facility] Platelet mean volume (Bld) [Entitic vol] 9.8 fL 9.0 - 12.7 fL [facility] Platelets (Bld) [#/Vol] 179 10*3/uL 150 - 400 k/uL [facility] RBC (Bld) [#/Vol] 4.96 10*6/uL 3.90 - 5.2 0 m/uL [facility] WBC (Bld) [#/Vol] 4.87 10*3/uL 3.70 - 11. 00 k/uL [facility] EP CARDIOVERSION EXTERNALon 05-03-2022 EP CARDIOVERSION EXTERNAL ? Successful DCCV with restorationist of sinus rhythm This is a 72 y/o female with a history of symptomatic atypical atrial flutter [AFL], who was referred for direct current cardioversion [DCCV]. Pt has been anticoagulated with eliquis for more than 4 weeks. She has been on amiodarone Conclusions Successful cardioversion with 200 J synchronized shock. I supervised administration of anesthesia and was present throughout the case until recovery. Recommendations 1. Continue anticoagulation with eliquis and antiarrhythmic drug therapy amiodarone load 2. Discussed the lifestyle and risk factor management to prevent from recurrent atrial fibrillation with patient including decreasing weight to achieve ideal BMI of <27 kg/M2. In the Legacy Study of atrial fibrillation, weight loss of >10% resulted in a 6-fold greater arrhythmia-free survival. Advised patient that weight fluctuation of >5% offsets the benefits, as it increases risk for atrial fibrillation recurrence by 2-fold. Patient advised that they should engage in regular moderate intensity exercise of 150 minutes per week, but should avoid high intensity exercise since it will increase the risk of atrial fibrillation [higher risk of atrial fibrillation in cyclists, cross-country and marathon running]. Patient advised to abstain/decrease alcohol consumption as to no more than 2 drinks per week and decrease caffeine to no more than 1 cup per day, making sure it is drank before noon. Patient instructed to eliminate soft drinks altogether. Lastly, patient advised to make sure to get 6-8 hours of sleep each night and go to bed at the same time each night within +/- 1 hour. (Lifestyle and Risk Factor Modification for Reduction of Atrial Fibrillation: A Scientific Statement From the [place] [employer].) Mayo PAULSON, et al. Circulation. 2020. PMID: 63029314 Review. 3. F/u with EP service Table formatting from the original result was not included. Alba Flores EP Procedure - EPS/Ablation/Device Ordering Physician: JEROME VELASQUEZ Order #: [id number] Study Date: 04/29/2022 Patient Information Name MRN Description Alba Flores [id number] 72 y.o. female Physicians Panel Physicians Referring Physician Case Authorizing Physician Suzanne Weiss MD (Primary) Yuliet Bellamy Jr., DO Jerome Velasquez MD Procedures Cardioversion Pre Procedure Diagnosis Atypical atrial flutter S/p atrial flutter Dialted cardiomyopathy Obesity Post Procedure Diagnosis Atypical atrial flutter S/p atrial flutter Dialted cardiomyopathy Obesity Indications Atypical atrial flutter [I48.4 (ICD-10-CM)] Dilated cardiomyopathy [I42.0 (ICD-10-CM)] Class 3 severe obesity due to excess calories without serious comorbidity with body mass index (BMI) of 50.0 to 59.9 in adult [E66.01, Z68.43 (ICD-10-CM)] S/P ablation of atrial flutter [Z98.890, Z86.79 (ICD-10-CM)] Conclusion ? Successful DCCV with restorationist of sinus rhythm This is a 72 y/o female with a history of symptomatic atypical atrial flutter [AFL], who was referred for direct current cardioversion [DCCV]. Pt has been anticoagulated with eliquis for more than 4 weeks. She has been on amiodarone Conclusions Successful cardioversion with 200 J synchronized shock. I supervised administration of anesthesia and was present throughout the case until recovery. Recommendations 1. Continue anticoagulation with eliquis and antiarrhythmic drug therapy amiodarone load 2. Discussed the lifestyle and risk factor management to prevent from recurrent atrial fibrillation with patient including decreasing weight to achieve ideal BMI of <27 kg/M2. In the Legacy Study of atrial fibrillation, weight loss of >10% resulted in a 6-fold greater arrhythmia-free survival. Advised patient that weight fluctuation of >5% offsets the benefits, as it increases risk for atrial fibrillation recurrence by 2-fold. Patient advised that they should engage in regular moderate intensity exercise of 150 minutes per week, but should avoid high intensity exercise since it will increase the risk of atrial fibrillation [higher risk of atrial fibrillation in cyclists, cross-country and marathon running]. Patient advised to abstain/decrease alcohol consumption as to no more than 2 drinks per week and decrease caffeine to no more than 1 cup per day, making sure it is drank before noon. Patient instructed to eliminate soft drinks altogether. Lastly, patient advised to make sure to get 6-8 hours of sleep each night and go to bed at the same time each night within +/- 1 hour. (Lifestyle and Risk Factor Modification for Reduction of Atrial Fibrillation: A Scientific Statement From the [place] [employer].) Mayo PAULSON, et al. Circulation. 2020. PMID: 51988723 Review. 3. F/u with EP service Consent The procedure was explained including the potential risks of infection, heart perforation, re-operation, and other risks pertinent to procedure. Informed consent and p (more content not included)... Normal [facility] Body surface area Derived from formula 2.46 m2 [facility] Successful DCCV with restorationist of sinus rhythm This is a 72 y/o female with a history of symptomatic atypical atrial flutter [AFL], who was referred for direct current cardioversion [DCCV]. Pt has been anticoagulated with eliquis for more than 4 weeks. She has been on amiodarone Conclusions Successful cardioversion with 200 J synchronized shock. I supervised administration of anesthesia and was present throughout the case until recovery. Recommendations 1. Continue anticoagulation with eliquis and antiarrhythmic drug therapy amiodarone load 2. Discussed the lifestyle and risk factor management to prevent from recurrent atrial fibrillation with patient including decreasing weight to achieve ideal BMI of <27 kg/M2. In the Legacy Study of atrial fibrillation, weight loss of >10% resulted in a 6-fold greater arrhythmia-free survival. Advised patient that weight fluctuation of >5% offsets the benefits, as it increases risk for atrial fibrillation recurrence by 2-fold. Patient advised that they should engage in regular moderate intensity exercise of 150 minutes per week, but should avoid high intensity exercise since it will increase the risk of atrial fibrillation [higher risk of atrial fibrillation in cyclists, cross-country and marathon running]. Patient advised to abstain/decrease alcohol consumption as to no more than 2 drinks per week and decrease caffeine to no more than 1 cup per day, making sure it is drank before noon. Patient instructed to eliminate soft drinks altogether. Lastly, patient advised to make sure to get 6-8 hours of sleep each night and go to bed at the same time each night within +/- 1 hour. (Lifestyle and Risk Factor Modification for Reduction of Atrial Fibrillation: A Scientific Statement From the [place] [employer].) Mayo PAULSON, et al. Circulation. 2020. PMID: [id number] Review. 3. F/u with EP service [facility] BASIC METABOLIC PANELon 04-17 Anion gap [Moles/Vol] 16 mmol/L Normal 7-17 [facility] Comment on above: Performed By: #### M Nelsy VILLEGAS #### [facility] (DEFAULT) [address] [address] Calcium [Mass/Vol] 8.8 mg/dL Normal 8.6-10.5 [facility] Comment on above: Performed By: #### Nelsy FAGAN #### [facility] (DEFAULT) [address] [place] [address] Chloride [Moles/Vol] 103 mmol/L Normal 98-108 [facility] Comment on above: Performed By: #### Nelsy FAGAN #### [facility] (DEFAULT) [address] [place] [address] CO2 [Moles/Vol] 26 mmol/L Normal 21-31 [facility] Comment on above: Performed By: #### Nelsy FAGAN #### [facility] (DEFAULT) [address] [place] [address] Creatinine [Mass/Vol] 1.64 mg/dL High 0.50-1.20 [facility] Comment on above: Performed By: #### Billy FAGANC #### [facility] (DEFAULT) [address] [place] [address] GFR/1.73 sq M.predicted among non-blacks MDRD (S/P/Bld) [Vol rate/Area] 33 mL/min/{1.73_m2} Low >=60 [facility] Comment on above: Result Comment: Repo rted eGFR is based on the CKD-EPI 2020 equation using creatinine, age, and sex. Performed By: #### Nelsy FAGAN #### [facility] (DEFAULT) [address] [place] [address] Glucose [Mass/Vol] 103 mg/dL High 70-99 [facility] Comment on above: Performed By: #### Billy FAGANC #### [facility] (DEFAULT) [address] [place] [address] Osmolality [Osmolality] 301 mosm/kg Normal 278-305 [facility] Comment on above: Performed By: #### Billy FAGANC #### [facility] (DEFAULT) [address] [place] [address] Potassium [Moles/Vol] 4.0 mmol/L Normal 3.5-5.0 [facility] Comment on above: Performed By: #### Nelsy FAGAN #### [facility] (DEFAULT) [address] [place] [address] Sodium [Moles/Vol] 141 mmol/L Normal 135-145 [facility] Comment on above: Performed By: #### Nelsy FAGAN #### [facility] (DEFAULT) [address] [place] [address]325 Urea nitrogen [Mass/Vol] 29 mg/dL High 7-25 [facility] Comment on above: Performed By: #### Nelsy FAGAN #### [facility] (DEFAULT) [address] [place] [address] Urea nitrogen/Creatinine [Mass ratio] 18 mg/mg Normal [facility] Comment on above: Performed By: #### Nelsy FAGAN #### [facility] (DEFAULT) [address] [place] [address] CBC AND ELECTRONIC DIFFon Abs Baso Auto < Normal 0.00-0.15 [facility] Comment on above: Performed By: #### L [id number] #### [facility] (DEFAULT) [address] [place] [address] Basophils/100 WBC (Bld) 0.3 % Normal [facility] Comment on above: Performed By: #### L AB980 #### [facility] (DEFAULT) [address] [place] [address]222 DIFF STATUS Electronic Differential Normal [facility] Comment on above: Performed By: #### L AB980 #### [facility] (DEFAULT) [address] [place] [address] Eosinophils (Bld) [#/Vol] 0.19 10*3/uL Normal 0.00-0.42 [facility] Comment on above: Performed By: #### L AB980 #### [facility] (DEFAULT) [address] [place] [address] Eosinophils/100 WBC (Bld) 2.7 % Normal [facility] Comment on above: Performed By: #### L AB980 #### [facility] (DEFAULT) [address] [address] Hematocrit (Bld) [Volume fraction] 43.2 % Normal 34.9-44.3 [facility] Comment on above: Performed By: #### L AB980 #### [facility] (DEFAULT) [address] [address] Hemoglobin (Bld) [Mass/Vol] 13.7 g/dL Normal 11.4-15.2 [facility] Comment on above: Performed By: #### L AB980 #### [facility] (DEFAULT) [address] [address] Immature Grans % 0.3 % Normal [facility] Comment on above: Performed By: #### L AB980 #### [facility] (DEFAULT) [address] [address] Immature Grans Absolute < Normal <=0.08 [facility] Comment on above: Performed By: #### L AB980 #### [facility] (DEFAULT) [address] [address] Lymphocytes (Bld) [#/Vol] 1.79 10*3/uL Normal 1.16-3.51 [facility] Comment on above: Performed By: #### L AB980 #### [facility] (DEFAULT) [address] [address] Lymphocytes/100 WBC (Bld) 25.1 % Normal [facility] Comment on above: Performed By: #### L AB980 #### [facility] (DEFAULT) [address] [address] MCV (RBC) [Entitic vol] 89.1 fL Normal 79.6-97.7 [facility] Comment on above: Performed By: #### L AB980 #### [facility] (DEFAULT) [address] [place] [address] Mean Cell Hgb 28.2 pg Normal 25.9-33.9 [facility] Comment on above: Performed By: #### L AB980 #### [facility] (DEFAULT) [address] [address] Mean Cell Hgb Conc 31.7 g/dL Normal 31.4-35.9 [facility] Comment on above: Performed By: #### L AB980 #### [facility] (DEFAULT) [address] [address] Monocytes (Bld) [#/Vol] 0.68 10*3/uL Normal 0.22-0.87 [facility] Comment on above: Performed By: #### L AB980 #### [facility] (DEFAULT) [address] [address] Monocytes/100 WBC (Bld) 9.5 % Normal [facility] Comment on above: Performed By: #### L AB980 #### [facility] (DEFAULT) [address] [address] Nucleated RBC 0.0 /100 WBC Normal <=0.2 [facility] Comment on above: Performed By: #### L AB980 #### [facility] (DEFAULT) [address] [address] Platelet mean volume (Bld) [Entitic vol] 8.8 fL Normal 8.5-12.2 [facility] Comment on above: Performed By: #### L AB980 #### [facility] (DEFAULT) [address] [address] Platelets (Bld) [#/Vol] 233 10*3/uL Normal 150-393 [facility] Comment on above: Performed By: #### L AB980 #### [facility] (DEFAULT) [address] [address] RBC (Bld) [#/Vol] 4.85 10*6/uL Normal 3.91-5.04 [facility] Comment on above: Performed By: #### L AB980 #### [facility] (DEFAULT) [address] [place] [address] RBC Distribution 13.1 % Normal 10.8-14.9 [facility] Comment on above: Performed By: #### L AB980 #### [facility] (DEFAULT) [address] [place] [address] Segs + Bands Auto 62.1 % Normal [facility] Comment on above: Performed By: #### L AB980 #### [facility] (DEFAULT) [address] [place] [address] Segs + Bands,Absolute Auto 4.44 K/uL Normal 1.64-7.28 [facility] Comment on above: Performed By: #### L AB980 #### [facility] (DEFAULT) [address] [place] [address] WBC (Bld) [#/Vol] 7.14 10*3/uL Normal 3.99-11.19 [facility] Comment on above: Performed By: #### L AB980 #### [facility] (DEFAULT) [address] [place] [address] Laboratory - Chemistry and C hemistry - challengeon 04-30-2022 Anion gap [Moles/Vol] 16 mmol/L 7 - 17 mmol/L [facility] Calcium [Mass/Vol] 8.8 mg/dL 8.6 - 10. 5 mg/dL [facility] Chloride [Moles/Vol] 103 mmol/L 98 - 10 8 mmol/L [facility] CO2 [Moles/Vol] 26 mmol/L 21 - 31 mmol/L [facility] Creatinine [Mass/Vol] 1.64 mg/dL High 0.50 - 1.20 mg/dL [facility] GFR/1.73 sq M.predicted CKD-EPI (S/P/Bld) [Vol rate/Area] 33 Low - PINF [facility] Comment on above: Reported eGFR is bas ed on the CKD-EPI 2020 equation using creatinine, age, and sex. Glucose [Mass/Vol] 103 mg/dL High 70 - 99 mg/dL [facility] Magnesium [Mass/Vol] 2.1 mg/dL 1.6 - 2 .6 mg/dL [facility] Osmolality Calc [Osmolality] 301 [facility] Potassium [Moles/Vol] 4.0 mmol/L 3.5 - 5.0 mmol/L [facility] Sodium [Moles/Vol] 141 mmol/L 135 - 145 mmol/L [facility] Urea nitrogen [Mass/Vol] 29 mg/dL High 7 - 25 mg/dL [facility] Urea nitrogen/Creatinine [Mass ratio] 18 mg/mg [facility] Laboratory - Hematology and Cell countson 04-30-2022 Basophils (Bld) [#/Vol] K/uL 0.00 - 0.15 K/uL [facility] Basophils/100 WBC (Bld) 0.3 % [facility] Differential cell count method Nom (Bld) Electronic Differential [facility] Eosinophils (Bld) [#/Vol] 0.19 10*3/uL 0.00 - 0.42 K/uL [facility] Eosinophils/100 WBC (Bld) 2.7 % [facility] Erythrocyte distribution width (RBC) [Ratio] 13.1 % 10.8 - 14.9 % [facility] Hematocrit (Bld) [Volume fraction] 43.2 % 34.9 - 44.3 % [facility] Hemoglobin (Bld) [Mass/Vol] 13.7 g/dL 11.4 - 15.2 g/dL [facility] Immature granulocytes (Bld) [#/Vol] K/uL NINF - 0.08 K/uL [facility] Immature granulocytes/100 WBC (Bld) 0.3 % [facility] Lymphocytes (Bld) [#/Vol] 1.79 10*3/uL 1.16 - 3.51 K/uL [facility] Lymphocytes/100 WBC (Bld) 25.1 % [facility] MCH (RBC) [Entitic mass] 28.2 pg 25.9 - 33.9 pg [facility] MCHC (RBC) [Mass/Vol] 31.7 g/dL 31.4 - 35.9 g/dL [facility] MCV (RBC) [Entitic vol] 89.1 fL 79.6 - 97.7 fL [facility] Monocytes (Bld) [#/Vol] 0.68 10*3/uL 0.22 - 0.87 K/uL [facility] Monocytes/100 WBC (Bld) 9.5 % [facility] Neutrophils (Bld) [#/Vol] 4.44 10*3/uL 1.64 - 7.28 K/uL [facility] Nucleated RBC/100 WBC (Bld) [Ratio] 0.0 % NINF [facility] Platelet mean volume (Bld) [Entitic vol] 8.8 fL 8.5 - 12.2 fL [facility] Platelets (Bld) [#/Vol] 233 10*3/uL 150 - 393 K/uL [facility] RBC (Bld) [#/Vol] 4.85 10*6/uL [facility] Segmented neutrophils/100 WBC (Bld) 62.1 % [facility] WBC (Bld) [#/Vol] 7.14 10*3/uL 3.99 - 11. 19 K/uL [facility] MAGNESIUMon 04-30-2022 Magnesium [Mass/Vol] 2.1 mg/dL Normal 1.6-2.6 [facility] Comment on above: Performed By: #### M C7 #### [facility] (DEFAULT) [address] [place] [address] No Panel Informationon 04-30 Interpretation and review of laboratory results Abnormal [facility] Interpretation and review of laboratory results Normal [facility] CBC,PLATELETSon 04-29-2022 Hematocrit (Bld) [Volume fraction] 44.1 % Normal 34.9-44.3 [facility] Comment on above: Performed By: #### P TPTT #### [facility] (DEFAULT) [address] [place] [address] Hemoglobin (Bld) [Mass/Vol] 13.8 g/dL Normal 11.4-15.2 [facility] Comment on above: Performed By: #### P TPTT #### [facility] (DEFAULT) [address] [place] [address] MCV (RBC) [Entitic vol] 89.3 fL Normal 79.6-97.7 [facility] Comment on above: Performed By: #### P TPTT #### [facility] (DEFAULT) [address] [place] [address]57 Mean Cell Hgb 27.9 pg Normal 25.9-33.9 [facility] Comment on above: Performed By: #### P TPTT #### [facility] (DEFAULT) [address] [place] [address] Mean Cell Hgb Conc 31.3 g/dL Low 31.4-35.9 [facility] Comment on above: Performed By: #### P TPTT #### [facility] (DEFAULT) [address] [place] [address] Platelet mean volume (Bld) [Entitic vol] 9.1 fL Normal 8.5-12.2 [facility] Comment on above: Performed By: #### P TPTT #### [facility] (DEFAULT) [address] [place] [address] Platelets (Bld) [#/Vol] 226 10*3/uL Normal 150-393 [facility] Comment on above: Performed By: #### P TPTT #### [facility] (DEFAULT) [address] [place] [address] RBC (Bld) [#/Vol] 4.94 10*6/uL Normal 3.91-5.04 [facility] Comment on above: Performed By: #### P TPTT #### U [facility] (DEFAULT) [address] [place] [address] 43799 RBC Distribution 12.9 % Normal 10.8-14.9 [facility] Comment on above: Performed By: #### P TPTT #### U [facility] (DEFAULT) [address] [place] [address] 97129 WBC (Bld) [#/Vol] 7.19 10*3/uL Normal 3.99-11.19 [facility] Comment on above: Performed By: #### P TPTT #### U [facility] (DEFAULT) [address] [place] [address] 55404 CHEM 7 (LYTES,BUN,CREA,GLUC) on 04-29-2022 Anion gap [Moles/Vol] 15 mmol/L Normal 7-17 [facility] Comment on above: Performed By: #### P TPTT #### [facility] (DEFAULT) [address] [place] [address] 70556 Chloride [Moles/Vol] 104 mmol/L Normal 98-108 [facility] Comment on above: Performed By: #### P TPTT #### [facility] (DEFAULT) [address] [place] [address] 31097 CO2 [Moles/Vol] 26 mmol/L Normal 21-31 [facility] Comment on above: Performed By: #### P TPTT #### [facility] (DEFAULT) [address] [place] [address] 27009 Creatinine [Mass/Vol] 1.62 mg/dL High 0.50-1.20 [facility] Comment on above: Performed By: #### P TPTT #### U [facility] (DEFAULT) [address] [place] [address] 37331 GFR/1.73 sq M.predicted among non-blacks MDRD (S/P/Bld) [Vol rate/Area] 33 mL/min/{1.73_m2} Low >=60 [facility] Comment on above: Result Comment: Repo rted eGFR is based on the CKD-EPI 2020 equation using creatinine, age, and sex. Performed By: #### P TPTT #### [facility] (DEFAULT) [address] [place] [address] 08194 Glucose [Mass/Vol] 115 mg/dL High 70-99 [facility] Comment on above: Performed By: #### P TPTT #### [facility] (DEFAULT) [address] [place] [address] 67657 Osmolality [Osmolality] 302 mosm/kg Normal 278-305 [facility] Comment on above: Performed By: #### P TPTT #### [facility] (DEFAULT) [address] [place] [address] 10841 Potassium [Moles/Vol] 4.0 mmol/L Normal 3.5-5.0 [facility] Comment on above: Performed By: #### P TPTT #### [facility] (DEFAULT) [address] [place] [address] 38822 Sodium [Moles/Vol] 141 mmol/L Normal 135-145 [facility] Comment on above: Performed By: #### P TPTT #### [facility] (DEFAULT) [address] [place] [address] 90698 Urea nitrogen [Mass/Vol] 32 mg/dL High 7-25 [facility] Comment on above: Performed By: #### P TPTT #### [facility] (DEFAULT) [address] [place] [address] 35227 Urea nitrogen/Creatinine [Mass ratio] 20 mg/mg Normal [facility] Comment on above: Performed By: #### P TPTT #### [facility] (DEFAULT) [address] [place] [address] 64348 EP CARDIOVERSION EXTERNALon 04-29-2022 Radiology Study observation (narrative) [facility] Laboratory - Chemistry and C hemistry - challengeon 04-29-2022 Glucose [Mass/Vol] 107 mg/dL High 70 - 99 mg/dL [facility] Free T4 [Mass/Vol] 1.21 ng/dL 0.89 - 1. 76 ng/dL [facility] Anion gap [Moles/Vol] 15 mmol/L 7 - 17 mmol/L [facility] Chloride [Moles/Vol] 104 mmol/L 98 - 10 8 mmol/L [facility] CO2 [Moles/Vol] 26 mmol/L 21 - 31 mmol/L [facility] Creatinine [Mass/Vol] 1.62 mg/dL High 0.50 - 1.20 mg/dL [facility] GFR/1.73 sq M.predicted CKD-EPI (S/P/Bld) [Vol rate/Area] 33 Low - PINF [facility] Comment on above: Reported eGFR is bas ed on the CKD-EPI 2020 equation using creatinine, age, and sex. Glucose [Mass/Vol] 115 mg/dL High 70 - 99 mg/dL [facility] Magnesium [Mass/Vol] 2.1 mg/dL 1.6 - 2 .6 mg/dL [facility] Osmolality Calc [Osmolality] 302 [facility] Potassium [Moles/Vol] 4.0 mmol/L 3.5 - 5.0 mmol/L [facility] Sodium [Moles/Vol] 141 mmol/L 135 - 145 mmol/L [facility] Urea nitrogen [Mass/Vol] 32 mg/dL High 7 - 25 mg/dL [facility] Urea nitrogen/Creatinine [Mass ratio] 20 mg/mg [facility] TSH Qn 5.418 m[IU]/L High [facility] Laboratory - Hematology and Cell countson 04-29-2022 Erythrocyte distribution width (RBC) [Ratio] 12.9 % 10.8 - 14.9 % [facility] Hematocrit (Bld) [Volume fraction] 44.1 % 34.9 - 44.3 % [facility] Hemoglobin (Bld) [Mass/Vol] 13.8 g/dL 11.4 - 15.2 g/dL [facility] MCH (RBC) [Entitic mass] 27.9 pg 25.9 - 33.9 pg [facility] MCHC (RBC) [Mass/Vol] 31.3 g/dL Low 31.4 - 35.9 g/dL [facility] MCV (RBC) [Entitic vol] 89.3 fL 79.6 - 97.7 fL [facility] Platelet mean volume (Bld) [Entitic vol] 9.1 fL 8.5 - 12.2 fL [facility] Platelets (Bld) [#/Vol] 226 10*3/uL 150 - 393 K/uL [facility] RBC (Bld) [#/Vol] 4.94 10*6/uL [facility] WBC (Bld) [#/Vol] 7.19 10*3/uL 3.99 - 11. 19 K/uL [facility] MAGNESIUMon 04-29-2022 Magnesium [Mass/Vol] 2.1 mg/dL Normal 1.6-2.6 [facility] Comment on above: Performed By: #### P TPTT #### [facility] (DEFAULT) [address] [place] [address] No Panel Informationon 04-29 Interpretation and review of laboratory results Abnormal [facility] POC Sample Type CAPBL [facility] Test performed at address of the patient encounter. [facility] Interpretation and review of laboratory results Normal [facility] Interpretation and review of laboratory results Abnormal [facility] Interpretation and review of laboratory results Normal [facility] Interpretation and review of laboratory results Abnormal [facility] Interpretation and review of laboratory results Abnormal [facility] No Panel InformationOrdered By: Unassigned Pacs on 04-29-2022 [facility] Work Phone: T4 FREEon 04-29-2022 Free T4 [Mass/Vol] 1.21 ng/dL Normal 0.89-1.76 [facility] Comment on above: Performed By: #### P TPTT #### [facility] (DEFAULT) [address] [place] [address] 68875 TSH W/FT4 REFLEXon 3 TSH 5.418 uIU/mL High 0.550-4.780 [facility] Comment on above: Performed By: #### T SHQR #### [facility] (DEFAULT) [address] [place] [address] 47321 B-TYPE NATRIURETIC PEPTIDE ( BRAIN)on 04-28-2022 Natriuretic peptide B (Bld) [Mass/Vol] 197 pg/mL High 0-100 [facility] Comment on above: Performed By: #### P TPTT #### [facility] (DEFAULT) [address] [place] [address] 65009 CALCIUMon 04-28-2022 Calcium [Mass/Vol] 9.5 mg/dL Normal 8.6-10.5 [facility] Comment on above: Performed By: #### C A, MGO, CHM7 #### [facility] (DEFAULT) [address] [place] [address] 48451 CBC AND ELECTRONIC DIFFon Abs Baso Auto < Normal 0.00-0.15 [facility] Comment on above: Performed By: #### L [id number] #### [facility] (DEFAULT) [address] [place] [address] 90600 Basophils/100 WBC (Bld) 0.1 % Normal [facility] Comment on above: Performed By: #### L [id number] #### [facility] (DEFAULT) [address] [place] [address] 59198 DIFF STATUS Electronic Differential Normal [facility] Comment on above: Performed By: #### L [id number] #### [facility] (DEFAULT) [address] [place] [address] 33524 Eosinophils (Bld) [#/Vol] 0.08 10*3/uL Normal 0.00-0.42 [facility] Comment on above: Performed By: #### L [id number] #### [facility] (DEFAULT) [address] [address] Eosinophils/100 WBC (Bld) 1.0 % Normal [facility] Comment on above: Performed By: #### L [id number] #### [facility] (DEFAULT) [address] [address] Hematocrit (Bld) [Volume fraction] 45.3 % High 34.9-44.3 [facility] Comment on above: Performed By: #### L [id number] #### [facility] (DEFAULT) [address] [address] Hemoglobin (Bld) [Mass/Vol] 14.4 g/dL Normal 11.4-15.2 [facility] Comment on above: Performed By: #### L [id number] #### [facility] (DEFAULT) [address] [address] Immature Grans % 0.4 % Normal [facility] Comment on above: Performed By: #### L AB980 #### [facility] (DEFAULT) [address] [address] Immature Grans Absolute < Normal <=0.08 [facility] Comment on above: Performed By: #### L AB980 #### [facility] (DEFAULT) [address] [address] Lymphocytes (Bld) [#/Vol] 1.65 10*3/uL Normal 1.16-3.51 [facility] Comment on above: Performed By: #### L AB980 #### [facility] (DEFAULT) [address] [address] Lymphocytes/100 WBC (Bld) 21.2 % Normal [facility] Comment on above: Performed By: #### L AB980 #### [facility] (DEFAULT) [address] [address] MCV (RBC) [Entitic vol] 89.2 fL Normal 79.6-97.7 [facility] Comment on above: Performed By: #### L AB980 #### [facility] (DEFAULT) [address] [address] Mean Cell Hgb 28.3 pg Normal 25.9-33.9 [facility] Comment on above: Performed By: #### L AB980 #### [facility] (DEFAULT) [address] [address] Mean Cell Hgb Conc 31.8 g/dL Normal 31.4-35.9 [facility] Comment on above: Performed By: #### L [id number] #### [facility] (DEFAULT) [address] [address] Monocytes (Bld) [#/Vol] 0.46 10*3/uL Normal 0.22-0.87 [facility] Comment on above: Performed By: #### L AB980 #### [facility] (DEFAULT) [address] [address] Monocytes/100 WBC (Bld) 5.9 % Normal [facility] Comment on above: Performed By: #### L AB980 #### [facility] (DEFAULT) [address] [address] Nucleated RBC 0.0 /100 WBC Normal <=0.2 [facility] Comment on above: Performed By: #### L [id number] #### [facility] (DEFAULT) [address] [address] Platelet mean volume (Bld) [Entitic vol] 9.1 fL Normal 8.5-12.2 [facility] Comment on above: Performed By: #### L AB980 #### [facility] (DEFAULT) [address] [address] Platelets (Bld) [#/Vol] 238 10*3/uL Normal 150-393 [facility] Comment on above: Performed By: #### L AB980 #### [facility] (DEFAULT) [address] [place] [address] 26162 RBC (Bld) [#/Vol] 5.08 10*6/uL High 3.91-5.04 [facility] Comment on above: Performed By: #### L AB980 #### [facility] (DEFAULT) [address] [place] [address] 90962 RBC Distribution 12.9 % Normal 10.8-14.9 [facility] Comment on above: Performed By: #### L AB980 #### [facility] (DEFAULT) [address] [place] [address] 45385 Segs + Bands Auto 71.4 % Normal [facility] Comment on above: Performed By: #### L [id number] #### [facility] (DEFAULT) [address] [place] [address] 55176 Segs + Bands,Absolute Auto 5.54 K/uL Normal 1.64-7.28 [facility] Comment on above: Performed By: #### L [id number] #### [facility] (DEFAULT) [address] [place] [address] 96982 WBC (Bld) [#/Vol] 7.77 10*3/uL Normal 3.99-11.19 [facility] Comment on above: Performed By: #### L AB980 #### [facility] (DEFAULT) [address] [place] [address] 59689 CHEM 7 (LYTES,BUN,CREA,GLUC) on 04-28-2022 Anion gap [Moles/Vol] 16 mmol/L Normal 7-17 [facility] Comment on above: Performed By: #### C A, MGO, CHM7 #### [facility] (DEFAULT) [address] [place] [address] 97942 Chloride [Moles/Vol] 106 mmol/L Normal 98-108 [facility] Comment on above: Performed By: #### C A, MGO, CHM7 #### [facility] (DEFAULT) [address] [place] [address] 67144 CO2 [Moles/Vol] 24 mmol/L Normal 21-31 [facility] Comment on above: Performed By: #### BEULAH Mirza CHM7 #### [facility] (DEFAULT) [address] [place] [address] 68236 Creatinine [Mass/Vol] 1.35 mg/dL High 0.50-1.20 [facility] Comment on above: Performed By: #### BEULAH Mirza CHM7 #### [facility] (DEFAULT) [address] [place] [address] 49601 GFR/1.73 sq M.predicted among non-blacks MDRD (S/P/Bld) [Vol rate/Area] 41 mL/min/{1.73_m2} Low >=60 [facility] Comment on above: Result Comment: Repo rted eGFR is based on the CKD-EPI 2020 equation using creatinine, age, and sex. Performed By: #### BEULAH Mirza CHM7 #### Er[facility] (DEFAULT) [address] [place] [address] 53918 Glucose [Mass/Vol] 108 mg/dL High 70-99 [facility] Comment on above: Performed By: #### BEULAH Mirza CHM7 #### [facility] (DEFAULT) [address] [place] [address] 74287 Osmolality [Osmolality] 303 mosm/kg Normal 278-305 [facility] Comment on above: Performed By: #### BEULAH Mirza CHM7 #### [facility] (DEFAULT) [address] [place] [address] 70772 Potassium [Moles/Vol] 3.8 mmol/L Normal 3.5-5.0 [facility] Comment on above: Performed By: #### BEULAH Mirza CHM7 #### [facility] (DEFAULT) [address] [place] [address] 89304 Sodium [Moles/Vol] 142 mmol/L Normal 135-145 [facility] Comment on above: Performed By: #### BEULAH Mirza CHM7 #### [facility] (DEFAULT) [address] [place] [address] 54729 Urea nitrogen [Mass/Vol] 30 mg/dL High 7-25 [facility] Comment on above: Performed By: #### BEULAH Mirza CHM7 #### [facility] (DEFAULT) [address] [place] [address] Urea nitrogen/Creatinine [Mass ratio] 22 mg/mg Normal [facility] Comment on above: Performed By: #### BEULAH Mirza CHM7 #### [facility] (DEFAULT) [address] [place] [address] 01492 HIGH SENSITIVITY TROPONIN I - SINGLE ORDERon 04-28-2022 hs-Troponin I 12 ng/L Normal <34 [facility] Comment on above: Order Comment: Acute Coronary Syndrome (ACS): Initial Evaluation and Management:[email or web address] Performed By: #### P TPTT #### [facility] (DEFAULT) [address] [place] [address] 39275 Laboratory - Chemistry and C hemistry - challengeon 04-28-2022 Natriuretic peptide B (Bld) [Mass/Vol] 197 pg/mL High 0 - 100 pg/mL [facility] Anion gap [Moles/Vol] 16 mmol/L 7 - 17 mmol/L [facility] Calcium [Mass/Vol] 9.5 mg/dL 8.6 - 10. 5 mg/dL [facility] Chloride [Moles/Vol] 106 mmol/L 98 - 10 8 mmol/L [facility] CO2 [Moles/Vol] 24 mmol/L 21 - 31 mmol/L [facility] Creatinine [Mass/Vol] 1.35 mg/dL High 0.50 - 1.20 mg/dL [facility] GFR/1.73 sq M.predicted CKD-EPI (S/P/Bld) [Vol rate/Area] 41 Low - PINF [facility] Comment on above: Reported eGFR is bas ed on the CKD-EPI 2020 equation using creatinine, age, and sex. Glucose [Mass/Vol] 108 mg/dL High 70 - 99 mg/dL [facility] Magnesium [Mass/Vol] 2.1 mg/dL 1.6 - 2 .6 mg/dL [facility] Osmolality Calc [Osmolality] 303 [facility] Potassium [Moles/Vol] 3.8 mmol/L 3.5 - 5.0 mmol/L [facility] Sodium [Moles/Vol] 142 mmol/L 135 - 145 mmol/L [facility] Urea nitrogen [Mass/Vol] 30 mg/dL High 7 - 25 mg/dL [facility] Urea nitrogen/Creatinine [Mass ratio] 22 mg/mg [facility] Troponin I.cardiac DL <= 0.01 ng/mL [Mass/Vol] 12 ng/L NINF - 34 ng/L [facility] Laboratory - Coagulationon 0 04-28-2022 aPTT Coag (PPP) [Time] 28.6 s [facility] INR Coag (Bld) [Relative time] 1.4 {INR} High 0.9 - 1.1 [facility] PT Coag (PPP) [Time] 16.8 s High [facility] Laboratory - Hematology and Cell countson 04-28-2022 Basophils (Bld) [#/Vol] K/uL 0.00 - 0.15 K/uL [facility] Basophils/100 WBC (Bld) 0.1 % [facility] Differential cell count method Nom (Bld) Electronic Differential [facility] Eosinophils (Bld) [#/Vol] 0.08 10*3/uL 0.00 - 0.42 K/uL [facility] Eosinophils/100 WBC (Bld) 1.0 % [facility] Erythrocyte distribution width (RBC) [Ratio] 12.9 % 10.8 - 14.9 % [facility] Hematocrit (Bld) [Volume fraction] 45.3 % High 34.9 - 44.3 % [facility] Hemoglobin (Bld) [Mass/Vol] 14.4 g/dL 11.4 - 15.2 g/dL [facility] Immature granulocytes (Bld) [#/Vol] K/uL NINF - 0.08 K/uL [facility] Immature granulocytes/100 WBC (Bld) 0.4 % [facility] Lymphocytes (Bld) [#/Vol] 1.65 10*3/uL 1.16 - 3.51 K/uL [facility] Lymphocytes/100 WBC (Bld) 21.2 % [facility] MCH (RBC) [Entitic mass] 28.3 pg 25.9 - 33.9 pg [facility] MCHC (RBC) [Mass/Vol] 31.8 g/dL 31.4 - 35.9 g/dL [facility] MCV (RBC) [Entitic vol] 89.2 fL 79.6 - 97.7 fL [facility] Monocytes (Bld) [#/Vol] 0.46 10*3/uL 0.22 - 0.87 K/uL [facility] Monocytes/100 WBC (Bld) 5.9 % [facility] Neutrophils (Bld) [#/Vol] 5.54 10*3/uL 1.64 - 7.28 K/uL [facility] Nucleated RBC/100 WBC (Bld) [Ratio] 0.0 % [facility] Platelet mean volume (Bld) [Entitic vol] 9.1 fL 8.5 - 12.2 fL [facility] Platelets (Bld) [#/Vol] 238 10*3/uL 150 - 393 K/uL [facility] RBC (Bld) [#/Vol] 5.08 10*6/uL High [facility] Segmented neutrophils/100 WBC (Bld) 71.4 % [facility] WBC (Bld) [#/Vol] 7.77 10*3/uL 3.99 - 11. 19 K/uL [facility] MAGNESIUMon 04-28-2022 Magnesium [Mass/Vol] 2.1 mg/dL Normal 1.6-2.6 [facility] Comment on above: Performed By: #### C A, MGO, CHM7 #### [facility] (DEFAULT) [address] [place] [address] No Panel Informationon 04-28 Interpretation and review of laboratory results Abnormal [facility] Interpretation and review of laboratory results Abnormal [facility] Interpretation and review of laboratory results Normal [facility] Interpretation and review of laboratory results Abnormal [facility] Interpretation and review of laboratory results Normal [facility] Interpretation and review of laboratory results Abnormal [facility] PT,INR,PTTon 04-28-2022 aPTT Coag (Bld) [Time] 28.6 s Normal 24.0-34.3 [facility] Comment on above: Performed By: #### P TPTT #### [facility] (DEFAULT) [address] [place] [address] 09545 INR Coag (PPP) [Relative time] 1.4 {INR} High 0.9-1.1 [facility] Comment on above: Performed By: #### P TPTT #### [facility] (DEFAULT) [address] [place] [address] 77842 PT Coag (PPP) [Time] 16.8 s High 11.9-14.2 [facility] Comment on above: Performed By: #### P TPTT #### [facility] (DEFAULT) [address] [place] [address] 09106 Portable XR Chest Viewson IMPRESSION: 1. Extensive left lower lobe atelectasis or pneumonia. No change. I personally viewed and interpreted these images and I have reviewed and approved this report. OLOGY EXAM: Extensive, 04/28/2022 14:34 PM COMPARISON: May 03, 2020 CLINICAL INDICATIONS: chest pain RELEVANT CLINICAL HISTORY: FINDINGS: (Adequate technique) Implanted Devices: None Thorax: Dense left lower lobe atelectasis or consolidation. Mild cardiomegaly. No definite pleural fluid. No mediastinal or hilar abnormality. RADIOLOGY Trey Briscoe MD - 04/28/2022 EXAM: Extensive, 04/28/2022 14:34 PM COMPARISON: May 03, 2020 CLINICAL INDICATIONS: chest pain RELEVANT CLINICAL HISTORY: FINDINGS: (Adequate technique) Implanted Devices: None Thorax: Dense left lower lobe atelectasis or consolidation. Mild cardiomegaly. No definite pleural fluid. No mediastinal or hilar abnormality. IMPRESSION IMPRESSION: 1. Extensive left lower lobe atelectasis or pneumonia. No change. I personally viewed and interpreted these images and I have reviewed and approved this report. [facility] Radiology Study observation (narrative) [facility] Portable XR Chest ViewsOrder ed By: Trey Briscoe on 04-28-2022 [facility] Work Phone: XR CHEST PORTABLEon 04-28-19 XR CHEST PORTABLE EXAM: Extensive, 04/28/2022 14:34 PM COMPARISON: May 03, 2020 CLINICAL INDICATIONS: chest pain RELEVANT CLINICAL HISTORY: FINDINGS: (Adequate technique) Implanted Devices: None Thorax: Dense left lower lobe atelectasis or consolidation. Mild cardiomegaly. No definite pleural fluid. No mediastinal or hilar abnormality. IMPRESSION: 1. Extensive left lower lobe atelectasis or pneumonia. No change. I personally viewed and interpreted these images and I have reviewed and approved this report. Normal [facility] XR Chest PA and Lateralon IMPRESSION: Minimal persistent atelectasis or fibrosis at both lung bases. Cardiomegaly. No developing abnormality Weighmaster: PSCB Transcribe Date/Time: Sep 09 2021 10:59A Dictated by : ISAI PIERRE MD This examination was interpreted and the report reviewed and electronically signed by: ISAI PIERRE MD on Sep 09 2021 11:00AM EST [email or web address] _DIVISION OF RADIOLOGY * * *Final Report* * * DATE OF EXAM: Sep 09 2021 10:32AM WOX 5291 - XR CHEST 2V FRONTAL/LAT / PROCEDURE REASON: Bacterial pneumonia * * * * Physician Interpretation * * * * EXAMINATION: CHEST RADIOGRAPH (2 VIEW FRONTAL & LATERAL) CLINICAL HISTORY: Bacterial pneumonia MQ: XC2_6 EXAM DATE/TIME: 09/09/2021 10:32 AM COMPARISON: 05/13/2020 RESULT: Lines, tubes, and devices: None. Lungs and pleura: No consolidation. No lung mass. No pleural effusion. No pneumothorax. Improved from the prior study. Minimal atelectasis or fibrosis at both lung bases persists Cardiomediastinal silhouette: Stable enlarged cardiomediastinal silhouette. Bones and soft tissues: Moderate degenerative change and osteophytosis throughout the dorsal spine [id number] _DIVISION OF RADIOLOGY Provider, [facility] - 09/09/2021 * * *Final Report* * * DATE OF EXAM: Sep 09 2021 10:32AM WOX 5291 - XR CHEST 2V FRONTAL/LAT / PROCEDURE REASON: Bacterial pneumonia * * * * Physician Interpretation * * * * EXAMINATION: CHEST RADIOGRAPH (2 VIEW FRONTAL & LATERAL) CLINICAL HISTORY: Bacterial pneumonia MQ: XC2_6 EXAM DATE/TIME: 09/09/2021 10:32 AM COMPARISON: 05/13/2020 RESULT: Lines, tubes, and devices: None. Lungs and pleura: No consolidation. No lung mass. No pleural effusion. No pneumothorax. Improved from the prior study. Minimal atelectasis or fibrosis at both lung bases persists Cardiomediastinal silhouette: Stable enlarged cardiomediastinal silhouette. Bones and soft tissues: Moderate degenerative change and osteophytosis throughout the dorsal spine IMPRESSION IMPRESSION: Minimal persistent atelectasis or fibrosis at both lung bases. Cardiomegaly. No developing abnormality Weighmaster: PSCB Transcribe Date/Time: Sep 09 2021 10:59A Dictated by : ISAI PIERRE MD This examination was interpreted and the report reviewed and electronically signed by: ISAI PIERRE MD on Sep 09 2021 11:00AM EST [facility] Radiology Study observation (narrative) [facility] XR Chest PA and LateralOrder ed By: Ccf Provider on 09-09-2021 [facility] XR Chest PA and Lateralon IMPRESSION: Bilateral pleural fluid/atelectasis Cardiomegaly Weighmaster: MYLA Transcribe Date/Time: May 13 2020 2:02P Dictated by : FADI CHERRY MD This examination was interpreted and the report reviewed and electronically signed by: FADI CHERRY MD on May 13 2020 2:05PM [facility] DIVISION OF RADIOLOGY * * *Final Report* * * DATE OF EXAM: May 13 2020 1:04PM WOX [id number] - XR CHEST 2V FRONTAL/LAT / PROCEDURE REASON: Pleural effusion * * * * Physician Interpretation * * * * EXAMINATION: CHEST RADIOGRAPH (2 VIEW FRONTAL & LATERAL) CLINICAL HISTORY: Pleural effusion MQ: XC2_6 EXAM DATE/TIME: 05/13/2020 1:04 PM COMPARISON: 02/28/2018 RESULT: Exam limited by patient body habitus Lines, tubes, and devices: None. Lungs and pleura: Small to moderate left pleural fluid. Hazy density right lung also probably represent pleural fluid. There is associated atelectasis. Cardiomediastinal silhouette: Cardiomegaly Bones and soft tissues: Degenerative spine changes DIVISION OF RADIOLOGY Provider, Lopez Rodney [facility] - 05/13/2020 * * *Final Report* * * DATE OF EXAM: May 13 2020 1:04PM WOX 5291 - XR CHEST 2V FRONTAL/LAT / PROCEDURE REASON: Pleural effusion * * * * Physician Interpretation * * * * EXAMINATION: CHEST RADIOGRAPH (2 VIEW FRONTAL & LATERAL) CLINICAL HISTORY: Pleural effusion MQ: XC2_6 EXAM DATE/TIME: 05/13/2020 1:04 PM COMPARISON: 02/28/2018 RESULT: Exam limited by patient body habitus Lines, tubes, and devices: None. Lungs and pleura: Small to moderate left pleural fluid. Hazy density right lung also probably represent pleural fluid. There is associated atelectasis. Cardiomediastinal silhouette: Cardiomegaly Bones and soft tissues: Degenerative spine changes IMPRESSION IMPRESSION: Bilateral pleural fluid/atelectasis Cardiomegaly Weighmaster: MYLA Transcribe Date/Time: May 13 2020 2:02P Dictated by : FADI CHERRY MD This examination was interpreted and the report reviewed and electronically signed by: FADI CHERRY MD on May 13 2020 2:05PM EST [facility] Radiology Study observation (narrative) [facility] XR Chest PA and LateralOrder ed By: Ccf Provider on 05-13-2020 [facility] CNPNon 05-17-2019 CNPN Telephone (AKPRAD) ALBA FLORES F ([id number]) 1950 F Date Time Provider Department 05/17/19 GLEN WILLIAMSON During your visit today, we recorded the following information about you: Glen Williamson DO 05/17/2019 4:13 PM Signed Please call Alba Flores and let her know that I received a copy of her holter and it indicates her avg HR is 90 bpm which is reasonable control. I have not heard back from Dr. Newman on what he felt her anesthesia risks were from a lung perspective, please ask if she has discussed this with him? I would recommend staying with rate control as she is doing.. If she wants to try ablation and Dr. Newman feels her respiratory risks are reasonable for a 3-4 hour procedure with general anesthesia, we can attempt it. I would want to see her again to go back over the risks in person before I would schedule it. Glen Williamson DO Allergies As of Date: 05/17/2019 Noted Allergy Reaction ASA (ASPIRIN) 01/16/2015 8 - GI Upset PROPOXYPHENE 01/25/2019 14 - Other: See Comments Comments: Dizziness/ syncope Date Reviewed: 03/25/2019 Reviewed by: Rere Schneider LPN - Fully Assessed Reason for Visit: Results [95] Prescriptions as of 05/17/2019 Sig: OMEPRAZOLE 20 MG CAPSULE,CECILIA* Take 1 capsule by mouth once * LISINOPRIL 2.5 MG TABLET Take 1 tablet by mouth once d* TRELEGY ELLIPTA 100 MCG-62.5 * Inhale 1 puff once daily METOPROLOL TARTRATE 50 MG TAB* Take 1 tablet by mouth twice * APIXABAN 5 MG TABLET Take 1 tablet by mouth twice * ALBUTEROL SULFATE 2.5 MG/3 ML* Use 3 mL via nebulizer every * CALCIUM CARBONATE-VITAMIN D3 * Take 1 tablet by mouth once d* OXYGEN (HOME THERAPY) 2 L/min by Nasal Cannula rout* Problem List As Of Date 05/17/2019 Noted Resolved HTN (hypertension) [I10] More... Borderline diabetes [R73.03] 12/16/2014 Endometrial cancer, grade I (HCC) [C54.1] 01/17/2015 More... Morbid obesity (HCC) [E66.01] 01/17/2015 Osteopenia [M85.80] 08/24/2015 Atrial flutter with rapid ventricular response *12/14/2017 02/16/2018 Atrial fibrillation (HCC) [I48.91] 02/11/2018 More... GERD without esophagitis [K21.9] 02/11/2018 COPD (chronic obstructive pulmonary disease) (H*02/11/2018 More... Obesity, Class III, BMI >= 40 [E66.01] 02/11/2018 02/18/2019 Respiratory failure (HCC) [J96.90] 02/12/2018 02/21/2018 More... EKATERINA (acute kidney injury) (HCC) [N17.9] 02/12/2018 02/21/2018 More... Hemothorax on left [J94.2] 02/15/2018 10/17/2018 More... Cardiovascular stress test abnormal [R94.39] 01/08/2018 Cardiomyopathy of undetermined type (HCC) [I42.*06/27/2018 More... CECILIA (obstructive sleep apnea) [G47.33] 06/27/2018 More... Stage 3 chronic kidney disease (HCC) [N18.3] 03/25/2019 Encounter Status:Closed by GLEN WILLIAMSON on 05/21/19 Normal [facility] CNOVon 02-21-2019 CNOV Office Visit (AGCARDPOB) ALBA FLORES ([id number]) 1950 F Date Time Provider Department 02/21/19 10:20 AM GLEN WILLIAMSONARDSTEPH During your visit today, we recorded the following information about you: Pulse Respiration Blood pressure Weight 79/minute 16/minute 130/80 143.3 kg Height 1.575 m Melissa Jack MA 02/21/2019 10:18 AM Signed Patient has no cardiac complaints today. ANTOINE Goins. Glen Williamson DO 02/21/2019 12:58 PM Signed PRIMARY CARE PHYSICIAN: Alfonzo Spears MD [address] [place] [address] REFERRING PHYSICIAN: Cornelio eHrnandez MD ([facility]) [address] [address] CHIEF COMPLAINT: Patient presents with: CARD New Patient Consult HISTORY OF PRESENT ILLNESS: Ms. Flores is a 68 year old female who presents today to discuss management options for persistent atrial fibrillation refractory to amiodarone therapy (which was discontinued). She is currently being managed with rate control. CV2 3(age,F,HTN) she is on apixaban, she also has CECILIA. She had a heart cath 05/11/18 with reported normal coronaries and LVEF 30% . ECG 01/16/19 showed atrial flutter with RBBB HR 107BPM. spect 03/15/18 LVEF 39%, evicdence of scar anterseptal, anterolateral and anteropical. PFTS 12/04/18 with severe large airway obstructive defect and decreased DLCO consistent with COPD/asthma. She had multiple attempts at CV about a year ago, that only transiently restored sinus rhythm. Alba reports overall she feels well, she denies difficulty with her breathing, she states her inhalers and nebulizers help. She reports that she is very compliant with her CPAP. She denies palpitations or awareness of her arrhythmia. She also relates to me that she had recurrent pleural effusions, underwent a thorancentesis with bloody return, but had signficant recurrence requiring transfer to [facility] with repeat thoracentesis with removal of 1800ml of fluid. She reports it was a prolonged hospitalization. It is unclear as to the cause of her effussion but was ascribed to xeralto and she was off anticoagulation for many months but is currently on apixaban. PAST MEDICAL HISTORY Diagnosis Date - Acute kidney injury (EKATERINA) with acute tubular necrosis (ATN) ([facility]) - Atrial fibrillation ([facility]) - Atrial flutter (HCC) w/ RVR - Borderline diabetes 12/2014 - Chronic atrial fibrillation - COPD (chronic obstructive pulmonary disease) ([facility]) - Endometrial cancer, grade I ([facility]) 12/2014 - GERD (gastroesophageal reflux disease) - HTN (hypertension) 12/2014 - Morbid obesity with BMI of 60.0-69.9, adult ([facility]) - CECILIA (obstructive sleep apnea) - Osteopenia - Palpitations PAST SURGICAL HISTORY Procedure Laterality Date - APPENDECTOMY - CARDIAC CATH Left - LAP, SUPRACERVIAL HYSTERECTOMY W/ TUBEANDOV, <250G 2014 - MIDLINE INSERTION/CONSULT 02/16/2018 - TUBAL LIGATION HX FAMILY HISTORY Problem Relation Age of Onset - COPD Mother - Heart Mother - Heart Father - Colon Cancer Sister Social History Tobacco Use - Smoking status: Former Smoker Packs/day: 1.00 Years: 5.00 Pack years: 5.00 Types: Cigarettes Last attempt to quit: 04/17/1984 Years since quittin.8 - Smokeless tobacco: Never Used - Tobacco comment: still smokes in the home Substance Use Topics - Alcohol use: Yes Frequency: Never Comment: rarely - Drug use: No ALLERGIES Allergen Reactions - Asa [Aspirin] GI Upset - Propoxyphene Other: See Comments Dizziness/ syncope MEDICATIONS: lisinopril 2.5 mg tablet, Take 2.5 mg by mouth once daily. omeprazole (PRILOSEC) 20 mg capsule, Take 20 mg by mouth once daily. TRELEGY ELLIPTA 100-62.5-25 mcg dsdv, Inhale 1 puff once daily furosemide (LASIX) 40 mg tablet, Take 1 tablet by mouth once daily. metoprolol tartrate, short acting, (LOPRESSOR) 50 mg tablet, Take 1 tablet by mouth twice daily. apixaban (ELIQUIS) 5 mg tab(s), Take 1 tablet by mouth twice daily. albuterol (PROVENTIL) 2.5 mg /3 mL (0.083 %) nebulizer solution, Use 3 mL via nebulizer every 2 hours as needed for Wheezing/Shortness of Breath. Per Pulmonary calcium carbonate-vitamin D3 500-100 mg-unit chewable tablet, Take 1 tablet by mouth once daily. aspirin, enteric coated (ASPIRIN, ENTERIC COATED) 81 mg EC tablet, Take 81 mg by mouth once daily. nystatin (NYSTOP) powder, Apply 1 application to affected area three times daily. OXYGEN, HOME THERAPY,, 2 L/min by Nasal Cannula route as directed. DOCOSAHEXANOIC ACID/EPA (FISH OIL ORAL), Take by mouth. Review of Systems Constitutional: Negative. HENT: Negative. Eyes: Negative. Respiratory: Negative. Denies Chest Tightness Cardiovascular: Negative. Gastrointestinal: Negative. Genitourinary: Negative. Musculoskeletal: Negative. Skin: Negative. Neurological: Negative. Denies syncope Endo/Heme/Allergies: Negative. Psychiatric/Behaviora l: Negative. PHYSICAL EXAMINATION: Physical Exam Constitutional: She is oriented to person, place, and time and well-developed, well-nourished, and in no distress. No distress. obese HENT: Head: Normocephalic and atraumatic. Eyes: Pupils are equal, round, and reactive to light. Conjunctivae are normal. No scleral icterus. Neck: Normal range of motion. No JVD present. No thyromegaly present. Cardiovascular: Regular rhythm, normal heart sounds and normal pulses. PMI is not displaced. Exam reveals no gallop, no distant heart sounds and no friction rub. No murmur heard. Pulmonary/Chest: Effort normal and breath sounds normal. No stridor. Abdominal: Soft. There is no hepatomegaly. There is no tenderness. There is no rebound and no guarding. Musculoskeletal: She exhibits no edema or deformity. Neurological: She is alert and oriented to person, place, and time. Coordination normal. Skin: Skin is warm and dry. No rash noted. She is not diaphoretic. Psychiatric: Mood and affect normal. Vitals reviewed. Pertinent Labs: CBC: Hemoglobin (g/dL) Date Value 10/17/2018 13.4 Hematocrit (%) Date Value 10/17/2018 44.2 WBC (k/uL) Date Value 10/17/2018 4.85 Platelet Count (k/uL) Date Value 10/17/2018 188 BMP: Glucose (mg/dL) Date Value 02/18/2019 82 Potassium (mmol/L) Date Value 02/18/2019 4.2 Sodium (mmol/L) Date Value 02/18/2019 148 Chloride (mmol/L) Date Value 02/18/2019 107 CO2 (mmol/L) Date Value 02/18/2019 28 Creatinine (mg/dL) Date Value 02/18/2019 1.48 BUN (mg/dL) Date Value 02/18/2019 29 Anion Gap (mmol/L) Date Value 02/18/2019 13 Calcium (mg/dL) Date Value 02/18/2019 9.5 INR: TSH: No results found for: [facility] TESTING: Atrial flutter 113 bpm RBBB IMPRESSION: 1. Atrial flutter, unspecified type (HCC) - ICD9: 427.32, ICD10: I48.92 (primary diagnosis) 2. Chronic obstructive pulmonary disease, unspecified COPD type (HCC) - ICD9: 496, ICD10: J44.9 3. CECILIA (obstructive sleep apnea) - ICD9: 327.23, ICD10: G47.33 4. Essential hypertension - ICD9: 401.9, ICD10: I10 5. Atrial fibrillation, unspecified type (HCC) - ICD9: 427.31, ICD10: I48.91 6. Cardiomyopathy of undetermined type (HCC) - ICD9: 425.4, ICD10: I42.9 7. Obesity with serious comorbidity, unspecified classification, unspecified obesity type - ICD9: 278.00, ICD10: E66.9 8. RBBB (right bundle branch block) - ICD9: 426.4, ICD10: I45.10 9. Chronic systolic heart failure (HCC) - ICD9: 428.22, ICD10: I50.22 PLAN AND RECOMMENDATIONS: I explained the procedure of a flutter ablation, the risks, benefits, mcc implications and follow up. I discussed that 50% of patients with a successful flutter ablation will develop fibrillation within 5 years. I discussed with Alba that I have two concerns one is her respiratory risk with sedation, given the nature of there procedure, her severe lung disease, sleep apnea and obesity we would likely need to perform with general anesthesia which increases the risks but also raises concern about being able to extubate post procedure. Also her obesity raises signficantly the risk for bleeding with access as we perform this procedure on anticoagulation and though I routinely use ultrasound, her weight is largely abdominal and so will expect increased risk for bleeding and vascular complication. My overall opinion is that I anticipate a risk of 25% for periprocedural complication, The question is will the benefit of a flutter ablation, justify this risk??? I discussed with Alba I will speak with Dr. Hernandez and send a copy of my note to Dr. Newman and request his thoughts on her having general anesthesia for what I would anticipate being about a four hour procedure and I will discuss with our anesthesia team to get their opinion. I will be out of town until 03/04, so we made plans that if she does not hear from me by 03/06 she is to call or mychart (her daughter indicates she will help with this). I will ask Dr. Hernandez to do a 24 hour holter and send me the report, I want to assess her rate control. If we do not pursue ablation then adjunct faculty for medical terminology rate control would be advised. We discussed a pacemaker AVN ablation but I am only slighly more enthusiastic about this than a flutter ablation as we likely could do without general anesthesia though clearly would be higher than usual risk. Glen Williamson DO Referring Provider: CORNELIO HERNANDEZ [[id number]] Allergies As of Date: 02/21/2019 Noted Allergy Reaction ASA (ASPIRIN) 01/16/2015 8 - GI Upset PROPOXYPHENE 01/25/2019 14 - Other: See Comments Comments: Dizziness/ syncope Date Reviewed: 02/21/2019 Reviewed by: Melissa Jack - Fully Assessed Reason for Visit: CARD New Patient Consult [1228] Primary Visit Diagnosis:Atrial flutter, unspecified type ([facility]) [I48.92] Other Visit Diagnoses:Chronic obstructive pulmonary disease, unspecified COPD type (HCC) [J44.9] CECILIA (obstructive sleep apnea) [G47.33] Essential hypertension [I10] Atrial fibrillation, unspecified type (HCC) [I48.91] Cardiomyopathy of undetermined type (HCC) [I42.9] Obesity with serious comorbidity, unspecified classification, unspecified obesity type [E66.9] RBBB (right bundle branch block) [I45.10] Chronic systolic heart failure (HCC) [I50.22] Order(s):ECG B/O W INTERP (MED OFFICE) [ECG06] Order #: [id number] Prescriptions as of 02/21/2019 Sig: OMEPRAZOLE 20 MG CAPSULE,CECILIA* Take 20 mg by mouth once xiomara* X LISINOPRIL 2.5 MG TABLET Take 2.5 mg by mouth once igor* TRELEGY ELLIPTA 100 MCG-62.5 * Inhale 1 puff once daily FUROSEMIDE 40 MG TABLET Take 1 tablet by mouth once d* METOPROLOL TARTRATE 50 MG TAB* Take 1 tablet by mouth twice * APIXABAN 5 MG TABLET Take 1 tablet by mouth twice * ALBUTEROL SULFATE 2.5 MG/3 ML* Use 3 mL via nebulizer every * CALCIUM CARBONATE-VITAMIN D3 * Take 1 tablet by mouth once d* ASPIRIN 81 MG TABLET,DELAYED * Take 81 mg by mouth once xiomara* NYSTATIN 100,000 UNIT/GRAM TO* Apply 1 application to affect* OXYGEN (HOME THERAPY) 2 L/min by Nasal Cannula rout* FISH OIL ORAL Take by mouth. Medication notes this encounter ASPIRIN 81 MG TABLET,DELAYED RELEASE >> Melissa Jack MA 02/21/2019 10:10 AM >> MELISSA JACK MA MonFeb 21, 2019 10:10 AM Not taking NYSTATIN 100,000 UNIT/GRAM TOPICAL POWDER >> Melissa Jack MA 02/21/2019 10:10 AM >> MELISSA JACK MA MonFeb 21, 2019 10:10 AM Not taking OXYGEN (HOME THERAPY) >> Melissa Jack MA 02/21/2019 10:11 AM >> MELISSA JACK MA MonFeb 21, 2019 10:11 AM Not taking FISH OIL ORAL >> Melissa Jack MA 02/21/2019 10:10 AM >> MELISSA JACK MA MonFeb 21, 2019 10:10 AM Not taking Problem List As Of Date 02/21/2019 Noted Resolved HTN (hypertension) [I10] More... Borderline diabetes [R73.03] INVALID FOR* Endometrial cancer, grade I (HCC) [C54.1] INVALID FOR* More... Morbid obesity (HCC) [E66.01] INVALID FOR* Osteopenia [M85.80] INVALID FOR* Atrial flutter with rapid ventricular response *INVALID FOR*02/16/2018 Atrial fibrillation (HCC) [I48.91] INVALID FOR* More... GERD without esophagitis [K21.9] INVALID FOR* COPD (chronic obstructive pulmonary disease) (H*INVALID FOR* More... Obesity, Class III, BMI >= 40 [E66.01] INVALID FOR*02/18/2019 Respiratory failure (HCC) [J96.90] INVALID FOR*02/21/2018 More... EKATERINA (acute kidney injury) (HCC) [N17.9] INVALID FOR*02/21/2018 More... Hemothorax on left [J94.2] INVALID FOR*10/17/2018 More... Cardiovascular stress test abnormal [R94.39] INVALID FOR* Cardiomyopathy of undetermined type (HCC) [I42.*INVALID FOR* More... CECILIA (obstructive sleep apnea) [G47.33] INVALID FOR* More... Visit Notes: >> Melissa Jack [facility] Feb 21, 2019 10:09 AM Status: Signed Patient has no cardiac complaints today. ANTOINE Goins. Disposition: Return if symptoms worsen or fail to improve. Follow-up and Disposition History Recorded Letter Text Encounter Status:Closed by GLEN WILLIAMSON on 02/21/19 [facility] PROGRESSon 02-21-2019 PROGRESS HNO ID: [id number] Author: Glen Williamson Service: ? Author Type: Physician Type: Progress Notes Filed: 02/21/2019 12:58 PM Note Text: PRIMARY CARE PHYSICIAN: Alfonzo Spears MD [address] [facility] [place] [address] REFERRING PHYSICIAN: Cornelio Hernandez MD ([facility]) [address] [address] CHIEF COMPLAINT: Patient presents with: CARD New Patient Consult HISTORY OF PRESENT ILLNESS: Ms. Flores is a 68 year old female who presents today to discuss management options for persistent atrial fibrillation refractory to amiodarone therapy (which was discontinued). She is currently being managed with rate control. CV2 3(age,F,HTN) she is on apixaban, she also has CECILIA. She had a heart cath 05/11/18 with reported normal coronaries and LVEF 30% . ECG 01/16/19 showed atrial flutter with RBBB HR 107BPM. spect 03/15/18 LVEF 39%, evicdence of scar anterseptal, anterolateral and anteropical. PFTS 12/04/18 with severe large airway obstructive defect and decreased DLCO consistent with COPD/asthma. She had multiple attempts at CV about a year ago, that only transiently restored sinus rhythm. Alba reports overall she feels well, she denies difficulty with her breathing, she states her inhalers and nebulizers help. She reports that she is very compliant with her CPAP. She denies palpitations or awareness of her arrhythmia. She also relates to me that she had recurrent pleural effusions, underwent a thorancentesis with bloody return, but had signficant recurrence requiring transfer to [facility] with repeat thoracentesis with removal of 1800ml of fluid. She reports it was a prolonged hospitalization. It is unclear as to the cause of her effussion but was ascribed to xeralto and she was off anticoagulation for many months but is currently on apixaban. PAST MEDICAL HISTORY Diagnosis Date - Acute kidney injury (EKATERINA) with acute tubular necrosis (ATN) (HCC) - Atrial fibrillation (HCC) - Atrial flutter (HCC) w/ RVR - Borderline diabetes 12/2014 - Chronic atrial fibrillation - COPD (chronic obstructive pulmonary disease) (HCC) - Endometrial cancer, grade I (HCC) 12/2014 - GERD (gastroesophageal reflux disease) - HTN (hypertension) 12/2014 - Morbid obesity with BMI of 60.0-69.9, adult (HCC) - CECILIA (obstructive sleep apnea) - Osteopenia - Palpitations PAST SURGICAL HISTORY Procedure Laterality Date - APPENDECTOMY - CARDIAC CATH Left - LAP, SUPRACERVIAL HYSTERECTOMY W/ TUBEANDOV, <250G 2014 - MIDLINE INSERTION/CONSULT 02/16/2018 - TUBAL LIGATION HX FAMILY HISTORY Problem Relation Age of Onset - COPD Mother - Heart Mother - Heart Father - Colon Cancer Sister Social History Tobacco Use - Smoking status: Former Smoker Packs/day: 1.00 Years: 5.00 Pack years: 5.00 Types: Cigarettes Last attempt to quit: 04/17/1984 Years since quittin.8 - Smokeless tobacco: Never Used - Tobacco comment: still smokes in the home Substance Use Topics - Alcohol use: Yes Frequency: Never Comment: rarely - Drug use: No ALLERGIES Allergen Reactions - Asa [Aspirin] GI Upset - Propoxyphene Other: See Comments Dizziness/ syncope MEDICATIONS: lisinopril 2.5 mg tablet, Take 2.5 mg by mouth once daily. omeprazole (PRILOSEC) 20 mg capsule, Take 20 mg by mouth once daily. TRELEGY ELLIPTA 100-62.5-25 mcg dsdv, Inhale 1 puff once daily furosemide (LASIX) 40 mg tablet, Take 1 tablet by mouth once daily. metoprolol tartrate, short acting, (LOPRESSOR) 50 mg tablet, Take 1 tablet by mouth twice daily. apixaban (ELIQUIS) 5 mg tab(s), Take 1 tablet by mouth twice daily. albuterol (PROVENTIL) 2.5 mg /3 mL (0.083 %) nebulizer solution, Use 3 mL via nebulizer every 2 hours as needed for Wheezing/Shortness of Breath. Per Pulmonary calcium carbonate-vitamin D3 500-100 mg-unit chewable tablet, Take 1 tablet by mouth once daily. aspirin, enteric coated (ASPIRIN, ENTERIC COATED) 81 mg EC tablet, Take 81 mg by mouth once daily. nystatin (NYSTOP) powder, Apply 1 application to affected area three times daily. OXYGEN, HOME THERAPY,, 2 L/min by Nasal Cannula route as directed. DOCOSAHEXANOIC ACID/EPA (FISH OIL ORAL), Take by mouth. Review of Systems Constitutional: Negative. HENT: Negative. Eyes: Negative. Respiratory: Negative. Denies Chest Tightness Cardiovascular: Negative. Gastrointestinal: Negative. Genitourinary: Negative. Musculoskeletal: Negative. Skin: Negative. Neurological: Negative. Denies syncope Endo/Heme/Allergies: Negative. Psychiatric/Behaviora l: Negative. PHYSICAL EXAMINATION: Physical Exam Constitutional: She is oriented to person, place, and time and well-developed, well-nourished, and in no distress. No distress. obese HENT: Head: Normocephalic and atraumatic. Eyes: Pupils are equal, round, and reactive to light. Conjunctivae are normal. No scleral icterus. Neck: Normal range of motion. No JVD present. No thyromegaly present. Cardiovascular: Regular rhythm, normal heart sounds and normal pulses. PMI is not displaced. Exam reveals no gallop, no distant heart sounds and no friction rub. No murmur heard. Pulmonary/Chest: Effort normal and breath sounds normal. No stridor. Abdominal: Soft. There is no hepatomegaly. There is no tenderness. There is no rebound and no guarding. Musculoskeletal: She exhibits no edema or deformity. Neurological: She is alert and oriented to person, place, and time. Coordination normal. Skin: Skin is warm and dry. No rash noted. She is not diaphoretic. Psychiatric: Mood and affect normal. Vitals reviewed. Pertinent Labs: CBC: Hemoglobin (g/dL) Date Value 10/17/2018 13.4 Hematocrit (%) Date Value 10/17/2018 44.2 WBC (k/uL) Date Value 10/17/2018 4.85 Platelet Count (k/uL) Date Value 10/17/2018 188 BMP: Glucose (mg/dL) Date Value 02/18/2019 82 Potassium (mmol/L) Date Value 02/18/2019 4.2 Sodium (mmol/L) Date Value 02/18/2019 148 Chloride (mmol/L) Date Value 02/18/2019 107 CO2 (mmol/L) Date Value 02/18/2019 28 Creatinine (mg/dL) Date Value 02/18/2019 1.48 BUN (mg/dL) Date Value 02/18/2019 29 Anion Gap (mmol/L) Date Value 02/18/2019 13 Calcium (mg/dL) Date Value 02/18/2019 9.5 INR: TSH: No results found for: [facility] TESTING: Atrial flutter 113 bpm RBBB IMPRESSION: 1. Atrial flutter, unspecified type (HCC) - ICD9: 427.32, ICD10: I48.92 (primary diagnosis) 2. Chronic obstructive pulmonary disease, unspecified COPD type (HCC) - ICD9: 496, ICD10: J44.9 3. CECILIA (obstructive sleep apnea) - ICD9: 327.23, ICD10: G47.33 4. Essential hypertension - ICD9: 401.9, ICD10: I10 5. Atrial fibrillation, unspecified type (HCC) - ICD9: 427.31, ICD10: I48.91 6. Cardiomyopathy of undetermined type (HCC) - ICD9: 425.4, ICD10: I42.9 7. Obesity with serious comorbidity, unspecified classification, unspecified obesity type - ICD9: 278.00, ICD10: E66.9 8. RBBB (right bundle branch block) - ICD9: 426.4, ICD10: I45.10 9. Chronic systolic heart failure (HCC) - ICD9: 428.22, ICD10: I50.22 PLAN AND RECOMMENDATIONS: I explained the procedure of a flutter ablation, the risks, benefits, adjunct faculty for medical terminology implications and follow up. I discussed that 50% of patients with a successful flutter ablation will develop fibrillation within 5 years. I discussed with Alba that I have two concerns one is her respiratory risk with sedation, given the nature of there procedure, her severe lung disease, sleep apnea and obesity we would likely need to perform with general anesthesia which increases the risks but also raises concern about being able to extubate post procedure. Also her obesity raises signficantly the risk for bleeding with access as we perform this procedure on anticoagulation and though I routinely use ultrasound, her weight is largely abdominal and so will expect increased risk for bleeding and vascular complication. My overall opinion is that I anticipate a risk of 25% for periprocedural complication, The question is will the benefit of a flutter ablation, justify this risk??? I discussed with Alba I will speak with Dr. Hernandez and send a copy of my note to Dr. Newman and request his thoughts on her having general anesthesia for what I would anticipate being about a four hour procedure and I will discuss with our anesthesia team to get their opinion. I will be out of town until 03/04, so we made plans that if she does not hear from me by 03/06 she is to call or mychart (her daughter indicates she will help with this). I will ask Dr. Hernandez to do a 24 hour holter and send me the report, I want to assess her rate control. If we do not pursue ablation then adjunct faculty for medical terminology rate control would be advised. We discussed a pacemaker AVN ablation but I am only slighly more enthusiastic about this than a flutter ablation as we likely could do without general anesthesia though clearly would be higher than usual risk. Glen Williamson, DO Normal [facility] Vital Signs Date Time Vital Sign Value Performing Clinician Soraya avendano 01-02-2024 10:26-0400 Body mass index (BMI) [Ratio] 64.02 kg/m2 Genie Shin APRN.PLUG SORTER Work Phone: [facility] 01-02-2024 10:26-0400 Body weight 158.76 kg Genie Shin LIAISON OFFICER.PLUG SORTER Work Phone: [facility] 01-02-2024 10:26-0400 Diastolic blood pressure 80 mm[Hg] Genie Shin LIAISON OFFICER.PLUG SORTER Work Phone: [facility] 01-02-2024 10:26-0400 Heart rate 61 /min Genie Shin LIAISON OFFICER.PLUG SORTER Work Phone: [facility] 01-02-2024 10:26-0400 Respiratory rate 16 /min Genie Shin LIAISON OFFICER.PLUG SORTER Work Phone: [facility] 01-02-2024 10:26-0400 SaO2% (BldA) [Mass fraction] 91 % Genie Shin LIAISON OFFICER.PLUG SORTER Work Phone: [facility] 01-02-2024 10:26-0400 Systolic blood pressure 138 mm[Hg] Genie Shin LIAISON OFFICER.PLUG SORTER Work Phone: [facility] 06-27-2023 09:46-0400 Body weight 160.12 kg Trisha Tate LIAISON OFFICER.ACTUARIAL MANAGER Work Phone: [facility] 06-27-2023 09:46-0400 Diastolic blood pressure 74 mm[Hg] Trisha Richardsonan LIAISON OFFICER.ACTUARIAL MANAGER Work Phone: [facility] 06-27-2023 09:46-0400 Heart rate 59 /min Trisha Tate LIAISON OFFICER.ACTUARIAL MANAGER Work Phone: [facility] 06-27-2023 09:46-0400 SaO2% (BldA) [Mass fraction] 94 % Trisha Tate LIAISON OFFICER.ACTUARIAL MANAGER Work Phone: [facility] 06-27-2023 09:46-0400 Systolic blood pressure 126 mm[Hg] Trisha Taet LIAISON OFFICER.ACTUARIAL MANAGER Work Phone: [facility] 03-20-2023 13:48-0500 Body height 157.5 cm Alfonzo Spears MD Work Phone: [facility] 03-20-2023 13:48-0500 Body weight 156.76 kg Alfonzo Spears MD Work Phone: [facility] 03-20-2023 13:48-0500 Diastolic blood pressure 74 mm[Hg] Alfonzo Spears MD Work Phone: [facility] 03-20-2023 13:48-0500 Heart rate 68 /min Alfonzo Spears MD Work Phone: [facility] 03-20-2023 13:48-0500 SaO2% (BldA) [Mass fraction] 95 % Alfonzo Spears MD Work Phone: [facility] 03-20-2023 13:48-0500 Systolic blood pressure 108 mm[Hg] Alfonzo Spears MD Work Phone: [facility] 12-09-2022 10:24-0400 Body weight 159.3 kg Alfonzo Spears MD Work Phone: [facility] 12-09-2022 10:24-0400 Diastolic blood pressure 80 mm[Hg] Alfonzo Spears MD Work Phone: [facility] 12-09-2022 10:24-0400 Heart rate 81 /min Alfonzo Spears MD Work Phone: [facility] 12-09-2022 10:24-0400 Respiratory rate 18 /min Alfonzo Spears MD Work Phone: [facility] 12-09-2022 10:24-0400 SaO2% (BldA) [Mass fraction] 90 % Alfonzo Spears MD Work Phone: [facility] 12-09-2022 10:24-0400 Systolic blood pressure 130 mm[Hg] Alfonzo Spears MD Work Phone: [facility] 05-12-2022 10:17-0500 Diastolic blood pressure 66 mm[Hg] Alfonzo Spears MD Work Phone: [facility] 05-12-2022 10:17-0500 Systolic blood pressure 136 mm[Hg] Alfonzo Spears MD Work Phone: [facility] 05-12-2022 09:53-0500 Body height 157.5 cm Alfonzo Spears MD Work Phone: [facility] 05-12-2022 09:53-0500 Body weight 156.49 kg Alfonzo Spears MD Work Phone: [facility] 05-12-2022 09:53-0500 Heart rate 59 /min Alfonzo Spears MD Work Phone: [facility] 05-12-2022 09:53-0500 SaO2% (BldA) [Mass fraction] 92 % Alfonzo Spears MD Work Phone: [facility] 04-30-2022 11:01-0500 Body temperature 97.7 [degF] Ochoa Walls III, MD Work Phone: [facility] 04-30-2022 11:01-0500 Diastolic blood pressure 69 mm[Hg] Ochoa Walls III, MD Work Phone: [facility] 04-30-2022 11:01-0500 Heart rate 105 /min Ochoa Walls III, MD Work Phone: [facility] 04-30-2022 11:01-0500 Respiratory rate 16 /min Ochoa Walls III, MD Work Phone: [facility] 04-30-2022 11:01-0500 SaO2% (BldA) [Mass fraction] 94 % Ochoa Walsl III, MD Work Phone: [facility] 04-30-2022 11:01-0500 Systolic blood pressure 131 mm[Hg] Ochoa Walls III, MD Work Phone: [facility] 04-28-2022 12:24-0500 Body height 162.6 cm Ochoa Walls III, MD Work Phone: [facility] 04-28-2022 12:24-0500 Body mass index (BMI) [Ratio] 58.69 kg/m2 Ochoa Walls III, MD Work Phone: [facility] 04-28-2022 12:24-0500 Body weight 155.09 kg Ochoa Walls III, MD Work Phone: [facility] 12-14-2021 13:31-0400 Body height 157.5 cm Alfonzo Spears MD Work Phone: [facility] 12-14-2021 13:31-0400 Body weight 155.13 kg Alfonzo pSears MD Work Phone: [facility] 12-14-2021 13:31-0400 Diastolic blood pressure 70 mm[Hg] Alfonzo Spears MD Work Phone: [facility] 12-14-2021 13:31-0400 Heart rate 67 /min Alfonzo Spears MD Work Phone: [facility] 12-14-2021 13:31-0400 SaO2% (BldA) [Mass fraction] 96 % Alfonzo Spears MD Work Phone: [facility] 12-14-2021 13:31-0400 Systolic blood pressure 116 mm[Hg] Alfonzo Spears MD Work Phone: [facility] 09-14-2021 14:34-0400 Body weight 158.31 kg Malena Gama LIAISON OFFICER.CNM Work Phone: [facility] 09-14-2021 14:34-0400 Diastolic blood pressure 74 mm[Hg] Malena Gama LIAISON OFFICER.CNM Work Phone: [facility] 09-14-2021 14:34-0400 Systolic blood pressure 126 mm[Hg] Malena Gama LIAISON OFFICER.CNM Work Phone: [facility] Encounters Encounter Date Encounter Type Care Provider Facility Start: 01-09-2024 End: 01-09-2024 ambulatory [facility] [place] Facility:[facility] Start: 01-05-2024 End: 01-08-2024 Telephone encounter Genie Aleida LIAISON OFFICER.PLUG SORTER Work Phone: [facility] Comment on above: Results Start: 01-02-2024 End: 01-02-2024 ambulatory [facility] [place] Facility:[facility] Start: 01-02-2024 End: 01-02-2024 ambulatory [facility] Facility:[facility] Start: 01-02-2024 End: 01-02-2024 Office outpatient visit 25 minutes Genie Shin LIAISON OFFICER.PLUG SORTER Work Phone: [facility] Comment on above: Primary hypertension (Primary Dx); Atrial fibrillation, unspecified type (HCC); Cardiomyopathy of undetermined type (HCC); Borderline diabetes; Stage 3 chronic kidney disease, unspecified whether stage 3a or 3b CKD (HCC); Chronic anticoagulation; Screening for colon cancer; GERD without esophagitis; Encounter for immunization; Pain of lower extremity, unspecified laterality; Morbid obesity with BMI of 60.0-69.9, adult (HCC); CECILIA (obstructive sleep apnea); Chronic obstructive pulmonary disease, unspecified COPD type (HCC) Start: 11-22-2023 ambulatory Beverly Eden [facility] [place] Start: 11-22-2023 Patient encounter procedure Beverly Eden MA [facility] [place] Comment on above: Population Health Na vigation Outreach ([facility] ) Start: 09-06-2023 ambulatory Beverly Eden [facility] [place] Start: 09-06-2023 Patient encounter procedure Beverly Eden [facility] [place] Comment on above: Population Health Na vigation Outreach ([facility] ) Start: 06-27-2023 End: 06-27-2023 ambulatory ALFONZO SPEARS Facility:[facility] Start: 06-27-2023 End: 06-27-2023 Office outpatient visit 25 minutes Trisha Tate LIAISON OFFICER.ACTUARIAL MANAGER Work Phone: [facility] [place] Comment on above: Bilateral leg edema (Primary Dx); Atrial fibrillation, unspecified type (HCC); Cardiomyopathy of undetermined type (HCC); Chronic obstructive pulmonary disease, unspecified COPD type (HCC); Stage 3 chronic kidney disease, unspecified whether stage 3a or 3b CKD (HCC); Borderline diabetes; Elevated TSH; CECILIA (obstructive sleep apnea); Hypokalemia Start: 06-02-2023 Refill Alfonzo Spears MD Work Phone: [facility] Comment on above: Refill Request Start: 04-05-2023 Refill Alfonzo Spears MD Work Phone: [facility] [place] Comment on above: Refill Request Start: 03-20-2023 End: 03-20-2023 ambulatory ALFONZO SPEARS Facility:[facility] Start: 03-20-2023 End: 03-20-2023 Patient encounter procedure Alfonzo Spears MD Work Phone: [facility] [place] Comment on above: Cardiomyopathy of un determined type (HCC) (Primary Dx); Atrial fibrillation, unspecified type (HCC); Chronic obstructive pulmonary disease, unspecified COPD type (HCC); Stage 3 chronic kidney disease, unspecified whether stage 3a or 3b CKD (HCC); Borderline diabetes; Elevated TSH Start: 03-15-2023 Refill [facility] Comment on above: Refill Request Start: 12-21-2022 ambulatory Alfonzo Spears MD Work Phone: Internal [facility] Start: 12-12-2022 Telephone encounter Alfonzo Spears MD Work Phone: [facility] Comment on above: Results Start: 12-09-2022 End: 12-09-2022 Patient encounter procedure Alfonzo Spears MD Work Phone: [facility] Comment on above: Cardiomyopathy of un determined type (HCC) (Primary Dx); Atrial fibrillation, unspecified type (HCC); Hypertensive kidney disease with stage 3 chronic kidney disease, unspecified whether stage 3a or 3b CKD (HCC); Primary hypertension; Chronic obstructive pulmonary disease, unspecified COPD type (HCC); CECILIA (obstructive sleep apnea); Stage 3 chronic kidney disease, unspecified whether stage 3a or 3b CKD (HCC); Osteopenia, unspecified location; Borderline diabetes; Morbid obesity with BMI of 60.0-69.9, adult (HCC); Medication monitoring encounter; Screening for colon cancer Start: 10-03-2022 Refill Alfonzo Spears MD Work Phone: [facility] Comment on above: Refill Request Start: 08-09-2022 Refill Alfonzo Spears MD Work Phone: [facility] Comment on above: Med Change Request Start: 05-12-2022 End: 05-12-2022 Patient encounter procedure Alfonzo Spears MD Work Phone: [facility] Comment on above: Atrial fibrillation, unspecified type (HCC) (Primary Dx); Morbid obesity with BMI of 60.0-69.9, adult (HCC); Chronic obstructive pulmonary disease, unspecified COPD type (HCC); Cardiomyopathy of undetermined type (HCC); Primary hypertension; Hypertensive kidney disease with stage 3 chronic kidney disease, unspecified whether stage 3a or 3b CKD (HCC); Elevated TSH; Borderline diabetes Start: 05-02-2022 Refill Alfonzo Spears MD Work Phone: [facility] Comment on above: Refill Request Transition Of Care Start: 04-28-2022 End: 04-30-2022 Evaluation and management of inpatient YULIET Byers HANNAH SALMON Facility:[facility] Start: 04-28-2022 End: 04-30-2022 Evaluation and management of inpatient Ochoa Walls MD Work Phone: [facility] Comment on above: Tachycardia Start: 03-14-2022 Refill Alfonzo Spears MD Work Phone: [facility] Comment on above: Refill Request Start: 02-03-2022 Telephone encounter Alfonzo Spears MD Work Phone: [facility] Cifuent[facility] Comment on above: Patient Update Start: 12-14-2021 End: 12-14-2021 Patient encounter procedure Alfonzo Spears MD Work Phone: [facility] Comment on above: Primary hypertension (Primary Dx); Endometrial cancer, grade I (HCC); Atrial fibrillation, unspecified type (HCC); Cardiomyopathy of undetermined type (HCC); Chronic obstructive pulmonary disease, unspecified COPD type (HCC); Stage 3 chronic kidney disease, unspecified whether stage 3a or 3b CKD (HCC); Borderline diabetes; Morbid obesity (HCC); CECILIA (obstructive sleep apnea) Start: 11-29-2021 Refill Alfonzo Spears MD Work Phone: [facility] Comment on above: Refill Request Start: 10-13-2021 ambulatory Alfonzo Spears MD Work Phone: [facility] [place] Start: 09-14-2021 End: 09-14-2021 Patient encounter procedure Malena Negretekaelyn LIAISON OFFICER.CNM Work Phone: OB/Gynecology Comment on above: Endometrial cancer, grade I (HCC) Start: 09-09-2021 End: 09-09-2021 Subsequent hospital visit by physician Xr [facility] [place] Work Phone: Radiology Comment on above: Bacterial pneumonia [J15.9] Start: 08-27-2021 Telephone encounter Alfonzo Spears MD Work Phone: [facility] Comment on above: Faxed to Start: 05-13-2020 End: 05-13-2020 Subsequent hospital visit by physician Xr [facility] Work Phone: Radiology Comment on above: Pleural effusion [J9 0] Start: 02-06-2018 Patient encounter procedure OCHOA THORNTON Facility:[facility] Procedures Date Procedure Procedure Detail Performing Clinician Start: 01-02-2024 Lipid 1996 panel - S bashir or Plasma Genie Shin LIAISON OFFICER.PLUG SORTER Work Phone: Start: 06-27-2023 Lipid 1996 panel - S bashir or Plasma Trisha Tate LIAISON OFFICER.ACTUARIAL MANAGER Work Phone: Start: 12-09-2022 Lipid 1996 panel - S bashir or Plasma Alfonzo Spears MD Work Phone: Start: 04-30-2022 Basic metabolic pane l calcium total Matheus Crowell MD Work Phone: Start: 04-30-2022 CBC AND ELECTRONIC DIFF Matheus Crowell MD Work Phone: Start: 04-30-2022 Complete blood count with white cell differential, automated Matheus Crowell MD Work Phone: Start: 04-29-2022 Cardioversion electi ve arrhythmia external Jerome Velasquez MD Work Phone: Start: 04-29-2022 Glucose measurement, blood Brittany Lee MD, MPH Work Phone: Start: 04-29-2022 CONTINUOUS CARDIAC MONITORING STRIP Other Other Start: 04-29-2022 Assay of magnesium Staci Smith MD Work Phone: Start: 04-28-2022 Radiologic exam ches t single view Efren Smith MD Work Phone: Start: 04-28-2022 Assay of magnesium Staci Smith MD Work Phone: Start: 04-28-2022 CBC AND ELECTRONIC DIFF Efren Smith MD Work Phone: Start: 04-28-2022 Complete blood count with white cell differential, automated Efren Smith MD Work Phone: Start: 09-09-2021 Radiologic exam ches t 2 views Alfonzo Spears MD Work Phone: Start: 09-09-2021 Adult depression scr eening assessment Malena Gama LIAISON OFFICER.CNM Work Phone: Start: 05-13-2020 Radiologic exam ches t 2 views Alfonzo Spears MD Work Phone: Start: 05-03-2020 Lipid 1996 panel - S bashir or Plasma Ochoa Walls III, MD Work Phone: Start: 10-24-2018 Mammography Alfonzo Celaya MD Work Phone: Start: 09-22-2017 Adult depression scr eening assessment Alfonzo Spears MD Work Phone: Plan of Treatment Date Care Activity Detail Author Start: 01-01-2029 Lipid panel Lipid Screening [facility] Start: 06-26-2028 Lipid panel Lipid Screening [facility] Start: 12-10-2027 Lipid 1996 panel - Serum or Plasma Lipid Screening [facility] Start: 12-10-2027 Lipid panel Lipid Screening [facility] Start: 12-10-2027 LIPID SCREEN LIPID SCREEN [facility] Start: 01-08-2027 Diabetes Screening Diabetes Screening [facility] Start: 01-01-2027 Diabetes Screening Diabetes Screening [facility] Start: 12-14-2026 LIPID SCREEN LIPID SCREEN [facility] Start: 06-26-2026 Diabetes Screening Diabetes Screening [facility] Start: 06-10-2026 LIPID SCREEN LIPID SCREEN [facility] Start: 03-20-2026 Diabetes Screening Diabetes Screening [facility] Start: 12-09-2025 DIABETES SCREEN DIABETES SCREEN [facility] Start: 12-09-2025 Diabetes Screening Diabetes Screening [facility] Start: 05-12-2025 DIABETES SCREEN DIABETES SCREEN [facility] Start: 05-03-2025 Lipid panel LIPID SCREENING [facility] Start: 01-08-2025 Creatinine measurement Serum Creatinine [facility] Start: 01-01-2025 Annual PCP Team Chronic Disease Visit Annual PCP Team Chronic Disease Visit [facility] Start: 01-01-2025 Anxiety Screening Anxiety Screening [facility] Comment on above: Postponed from 02/26/1968 (Declined at t his time) Start: 01-01-2025 Complete blood count Hemoglobin/Hematocrit [facility] Start: 01-01-2025 Creatinine measurement Serum Creatinine [facility] Start: 12-14-2024 DIABETES SCREEN DIABETES SCREEN [facility] Start: 07-01-2024 End: 07-01-2024 Patient encounter procedure 07/01/2024 9:40 AM EDT Office Visit Family [facility] [address] [place] [address] Genie Shin, LIAISON OFFICER.PLUG SORTER [address] [place] [address] ANNUAL MEDICARE WELLNESS EXAM [facility] Comment on above: ANNUAL MEDICARE WELLNESS EXAM Start: 06-26-2024 BP Controlled (<130/80) BP Controlled (<130/80) [facility] in Start: 06-26-2024 Complete blood count Hemoglobin/Hematocrit [facility] Start: 06-26-2024 Covid-19 Vaccine ( season) Covid-19 Vaccine () [facility] Comment on above: Postponed from 12/16/2022 (Declined at t his time) Start: 06-26-2024 Creatinine measurement Serum Creatinine [facility] Start: 06-10-2024 DIABETES SCREEN DIABETES SCREEN [facility] Start: 03-20-2024 Annual PCP Team Chronic Disease Visit Annual PCP Team Chronic Disease Visit [facility] Start: 03-20-2024 BP Controlled (<130/80) BP Controlled (<130/80) [facility] in Start: 03-20-2024 Creatinine measurement Serum Creatinine [facility] Start: 01-05-2024 End: 04-05-2024 Basic metabolic 2000 panel - Serum or Plasma BASIC METABOLIC PANEL Lab Routine Serum potassium elevated Expected: 01/05/2024, Expires: 04/05/2024 [facility] Work Phone: Comment on above: Expected: 01/05/2024, Expires: Start: 01-02-2024 End: 04-02-2024 Comprehensive metabolic 2000 panel - Serum or Plasma [facility] Comment on above: Expected: 01/02/2024, Expires: Start: 01-02-2024 Depression Screening Depression Screening [facility] Comment on above: Postponed from [birth year]/26/1968 (Declined at t his time) Start: 01-02-2024 End: 04-02-2024 Hemoglobin A1c in Blood [facility] Comment on above: Expected: 01/02/2024, Expires: 4 Start: 01-02-2024 End: 04-02-2024 Lipid 1996 panel - Serum or Plasma [facility] Work Phone: Comment on above: Expected: 01/02/2024, Expires: Start: 01-02-2024 End: 04-02-2024 Magnesium [Mass/volume] in Serum or Plasma [facility] Comment on above: Expected: 01/02/2024, Expires: 4 Start: 01-02-2024 End: 04-02-2024 Thyrotropin [Units/volume] in Serum or Plasma [facility] Comment on above: Expected: 01/02/2024, Expires: Start: 12-26-2023 End: 12-26-2023 Patient encounter procedure [facility] Comment on above: 6 month follow up ANNUAL MEDICARE WELL NESS EXAM Start: 12-17-2023 Covid-19 Vaccine () Covid-19 Vaccine () [facility] Start: 12-17-2023 Covid-19 Vaccine () Covid-19 Vaccine () [facility] Start: 12-17-2023 Influenza vaccination Influenza Vaccine (#1) [facility] Start: 12-14-2023 COLORECTAL CANCER SCREENING COLORECTAL CANCER SCREENING [facility] Start: 12-14-2023 FECAL OCCULT BLOOD FECAL OCCULT BLOOD [facility] Start: 12-14-2023 Screening for malignant neoplasm of colon [facility] Start: 12-10-2023 ANNUAL PCP TEAM CHRONIC DISEASE VISIT ANNUAL PCP TEAM CHRONIC DISEASE VISIT [facility] Start: 12-10-2023 Complete blood count Hemoglobin/Hematocrit [facility] Start: 12-10-2023 COVID-19 VACCINE (3 - Pfizer series) COVID-19 VACCINE (3 - Pfizer series) [facility] Comment on above: Postponed from 01/21/2021 (Declined at t his time) Start: 12-10-2023 HEMOGLOBIN/HEMATOCRIT HEMOGLOBIN/HEMATOCRIT [facility] Start: 12-10-2023 SERUM CREATININE SERUM CREATININE [facility] Start: 12-10-2023 SHINGRIX VACCINE (1 of 2) SHINGRIX VACCINE (1 of 2) [facility] Comment on above: Postponed from 02/26/1998 (Declined at t his time) Start: 12-10-2023 Urine microalbumin profile [facility] Comment on above: Postponed from 02/26/1967 (Declined at t his time) Start: 06-27-2023 End: 09-26-2023 Hemoglobin A1c in Blood [facility] Work Phone: Comment on above: Expected: 06/27/2023, Expires: Start: 05-12-2023 ANNUAL PCP TEAM CHRONIC DISEASE VISIT ANNUAL PCP TEAM CHRONIC DISEASE VISIT [facility] Start: 05-12-2023 HEMOGLOBIN/HEMATOCRIT HEMOGLOBIN/HEMATOCRIT [facility] Start: 05-12-2023 SERUM CREATININE SERUM CREATININE [facility] Start: 04-30-2023 Potassium [Moles/volume] in Serum or Plasma POTASSIUM [facility] Start: 04-17-2023 Advance Directive Discussion Advance Directive Discussion [facility] Start: 04-17-2023 Behavioral Health Screening Behavioral Health Screening [facility] Start: 04-17-2023 Depression Assessment Depression Assessment [facility] Start: 03-20-2023 End: 06-19-2023 T4/FTI/T4U [facility] Work Phone: Comment on above: Expected: 03/20/2023, Expires: 4 Start: 03-20-2023 End: 06-19-2023 Triiodothyronine (T3) [Mass/volume] in Serum or Plasma [facility] Work Phone: Comment on above: Expected: 03/20/2023, Expires: 4 Start: 02-26-2023 RSV Vaccine (1 - 1-dose 75+ series) RSV Vaccine (1 - 1-dose 75+ series) [facility] Start: 12-16-2022 Covid-19 Vaccine ( season) Covid-19 Vaccine ( season) [facility] Start: 12-16-2022 Influenza vaccination [facility] Start: 12-14-2022 ANNUAL PCP TEAM CHRONIC DISEASE VISIT ANNUAL PCP TEAM CHRONIC DISEASE VISIT [facility] Start: 12-14-2022 BP CONTROLLED (<130/80) BP CONTROLLED (<130/80) [facility] Start: 12-14-2022 HEMOGLOBIN/HEMATOCRIT HEMOGLOBIN/HEMATOCRIT [facility] Start: 12-14-2022 Mammography MAMMOGRAM [facility] Comment on above: Postponed from 10/25/2019 (Declined at t his time) Start: 12-14-2022 SERUM CREATININE SERUM CREATININE [facility] Start: 12-09-2022 End: 02-08-2023 CBC W Auto Differential panel - Blood [facility] Work Phone: Comment on above: Expected: 12/09/2022, Expires: 3 Start: 12-09-2022 End: 02-08-2023 Comprehensive metabolic 2000 panel - Serum or Plasma [facility] Work Phone: Comment on above: Expected: 12/09/2022, Expires: Start: 12-09-2022 End: 02-08-2023 Hemoglobin A1c in Blood [facility] Work Phone: Comment on above: Expected: 12/09/2022, Expires: 3 Start: 12-09-2022 End: 02-08-2023 Lipid 1996 panel - Serum or Plasma [facility] Work Phone: Comment on above: Expected: 12/09/2022, Expires: Start: 12-09-2022 End: 02-08-2023 Thyrotropin [Units/volume] in Serum or Plasma [facility] Work Phone: Comment on above: Expected: 12/09/2022, Expires: 3 Start: 09-14-2022 BP CONTROLLED (<130/80) BP CONTROLLED (<130/80) [facility] Start: 09-09-2022 Adult depression screening assessment DEPRESSION SCREENING [facility] Start: 09-09-2022 ANNUAL PCP TEAM CHRONIC DISEASE VISIT ANNUAL PCP TEAM CHRONIC DISEASE VISIT [facility] Start: 06-10-2022 ANNUAL PCP TEAM CHRONIC DISEASE VISIT ANNUAL PCP TEAM CHRONIC DISEASE VISIT [facility] Start: 06-10-2022 HEMOGLOBIN/HEMATOCRIT HEMOGLOBIN/HEMATOCRIT [facility] Start: 06-10-2022 SERUM CREATININE SERUM CREATININE [facility] Start: 05-12-2022 End: 07-12-2022 Basic metabolic 2000 panel - Serum or Plasma [facility] Work Phone: Comment on above: Expected: 05/12/2022, Expires: 3 Start: 05-12-2022 End: 07-12-2022 Hemoglobin A1c in Blood [facility] Work Phone: Comment on above: Expected: 05/12/2022, Expires: 3 Start: 05-12-2022 End: 07-12-2022 Thyrotropin [Units/volume] in Serum or Plasma [facility] Work Phone: Comment on above: Expected: 05/12/2022, Expires: 3 Start: 05-12-2022 End: 07-12-2022 Thyroxine (T4) free [Mass/volume] in Serum or Plasma [facility] Work Phone: Comment on above: Expected: 05/12/2022, Expires: 3 Start: 05-12-2022 End: 07-12-2022 Triiodothyronine (T3) [Mass/volume] in Serum or Plasma [facility] Work Phone: Comment on above: Expected: 05/12/2022, Expires: 3 Start: 04-17-2022 ADVANCE DIRECTIVE DISCUSSION ADVANCE DIRECTIVE DISCUSSION [facility] Start: 04-17-2022 DEPRESSION ASSESSMENT DEPRESSION ASSESSMENT [facility] Start: 12-16-2021 Influenza vaccination [facility] Start: 12-14-2021 End: 02-13-2022 CBC W Auto Differential panel - Blood [facility] Work Phone: Comment on above: Expected: 12/14/2021, Expires: 2 Start: 12-14-2021 End: 02-13-2022 Comprehensive metabolic 2000 panel - Serum or Plasma [facility] Work Phone: Comment on above: Expected: 12/14/2021, Expires: 2 Start: 12-14-2021 End: 02-13-2022 Hemoglobin A1c in Blood [facility] Work Phone: Comment on above: Expected: 12/14/2021, Expires: 2 Start: 12-14-2021 End: 02-13-2022 Lipid 1996 panel - Serum or Plasma [facility] Work Phone: Comment on above: Expected: 12/14/2021, Expires: 2 Start: 04-28-2021 COVID-19 VACCINE (3 - Booster for Pfizer series) COVID-19 VACCINE (3 - Booster for Pfizer series) [facility] Start: 04-17-2021 ADVANCE DIRECTIVE DISCUSSION ADVANCE DIRECTIVE DISCUSSION [facility] Start: 04-17-2021 DEPRESSION ASSESSMENT DEPRESSION ASSESSMENT [facility] Start: 01-21-2021 COVID-19 VACCINE (3 - Booster for Pfizer series) COVID-19 VACCINE (3 - Booster for Pfizer series) [facility] Start: 10-25-2019 Mammography [facility] Start: 10-16-2019 COLORECTAL CANCER SCREENING COLORECTAL CANCER SCREENING [facility] Start: 10-16-2019 FECAL OCCULT BLOOD FECAL OCCULT BLOOD [facility] Start: 09-22-2018 Adult depression screening assessment DEPRESSION SCREENING [facility] Start: 2008 RSV Vaccine (1 - 1-dose 60+ series) RSV Vaccine (1 - 1-dose 60+ series) [facility] Start: 02-26-1998 SHINGRIX VACCINE (1 of 2) SHINGRIX VACCINE (1 of 2) [facility] Start: 02-26-1998 Zoster vaccine hzv live for subcutaneous use ZOSTER (SHINGLES) VACCINE (1 of 2) [facility] Start: 02-26-1993 COLOGUARD (FIT-DNA) COLOGUARD (FIT-DNA) [facility] Start: 02-26-1993 Colonoscopy COLONOSCOPY [facility] Start: 02-26-[address] COLONOGRAPHY [facility] Start: 02-26-1993 Screening for malignant neoplasm of colon [facility] Start: 02-26-1993 SIGMOIDOSCOPY SIGMOIDOSCOPY [facility] Start: 1988 Screening for malignant neoplasm of breast MAMMOGRAM SCREENING DISCUSSION [facility] Start: 02-26-1978 Zoledronic acid therapy ALPHA-1 ANTITRYPSIN DEFICIENCY SCREENING [facility] Start: 02-26-1969 Screening for malignant neoplasm of cervix CERVICAL CANCER SCREENING DISCUSSION [facility] Start: 02-26-1967 Third diphtheria, tetanus and acellular pertussis (DTaP) vaccination TDAP (ADULT) [facility] Start: 02-26-1967 Urine microalbumin profile [facility] Start: 02-26-1966 Anxiety Screening Anxiety Screening [facility] Start: 02-26-1966 BP CONTROLLED (<130/80) BP CONTROLLED (<130/80) [facility] Start: 02-26-1966 Depression Screening Depression Screening [facility] Start: 02-26-1966 SPIROMETRY SPIROMETRY [facility] Start: 1948 Hepatitis C screening HEPATITIS C VIRUS SCREENING [facility] Start: 1948 Screening for osteoporosis DEXA SCAN DISCUSSION [facility] Start: 1948 Tetanus vaccination TETANUS [facility] External electrode cardioversion EP CARDIOVERSION EXTERNAL Electrophysiology Routine Tachyarrhythmia 04/29/2022 2:33 PM EST [facility] Hemoglobin.gastroint tim alKyrielower [Presence] in Stool by Immunoassay FECAL OCCULT BLOOD TEST Lab Routine Screening for colon cancer Ordered: 12/09/2022 [facility] Work Phone: Comment on above: Ordered: 12/09/2022 Hemoglobin.ute dumont al.lower [Presence] in Stool by Immunoassay IMMUNOCHEMICAL FECAL OCCULT BLOOD TEST Lab Routine Screening for colon cancer Ordered: 11/22/2023 [facility] Work Phone: Comment on above: Ordered: 11/22/2023 Hemoglobin.ute dumont alKyrielower [Presence] in Stool by Immunoassay IMMUNOCHEMICAL FECAL OCCULT BLOOD TEST Lab Routine Screening for colon cancer Ordered: 01/02/2024 [facility] Comment on above: Ordered: 01/02/2024 End: 01-20-2024 MARTÍNEZ SCREENING MARTÍNEZ SCREENING Radiology Routine Encounter for screening mammogram for breast cancer 1 Occurrences starting 12/21/2022 until 01/20/2024 [facility] Work Phone: Comment on above: 1 Occurrences starting 12/21/2022 until 01/20/2024 PAP FLUID VAGINAL VA ULT SCREENING PAP FLUID VAGINAL VAULT SCREENING Lab Routine Endometrial cancer, grade I (HCC) 09/14/2021 3:22 PM EDT [facility] Work Phone: End: 11-12-2022 Screening mammography bi 2-view breast inc cad MARTÍNEZ SCREENING Radiology Routine Encounter for screening mammogram for breast cancer 1 Occurrences starting 10/13/2021 until 11/12/2022 [facility] Work Phone: Comment on above: 1 Occurrences starting 10/13/2021 until 11/12/2022 End: 04-28-2022 Standard ECG [facility] Comment on above: One Time for 1 Occurrences starting 04[facility]17 [facility] Immunizations Immunization Date Immunization Notes Care Provider Vern howard 01-02-2024 influenza, high dose seasonal, preservative-free Genie Shin RIRI Work Phone: [facility] 03-10-2023 influenza (HD-IIV4) vaccine, age 65+ yr, high dose, quadrivalent, PF (FLUZONE HIGH-DOSE) Alfonzo Spears MD Work Phone: [facility] 03-10-2023 influenza virus vacc ine, unspecified formulation Beverly Eden MA [facility] 06-10-2021 influenza, high-dose , quadrivalent vaccine (FLUZONE HIGH DOSE QUADRIVALENT) Alfonzo Spears MD Work Phone: [facility] 06-10-2021 influenza virus vacc ine, unspecified formulation Ochoa Walls III, MD Work Phone: [facility] 11-26-2020 COVID-19 vaccine, ag e 12+ yr (PFIZER-BIONTECH - PURPLE TOP) Alfonzo Spears MD Work Phone: [facility] 11-02-2020 COVID-19 vaccine, ag e 12+ yr (PFIZER-BIONTECH - PURPLE TOP) Alfonzo Spears MD Work Phone: [facility] 02-18-2019 influenza, high dose seasonal, preservative-free Alfonzo Spears MD Work Phone: [facility] 01-22-2018 influenza, seasonal, injectable, preservative free Alfonzo Spears MD Work Phone: [facility] 04-14-2017 influenza, high dose seasonal, preservative-free Alfonzo Spears MD Work Phone: [facility] 05-19-2016 pneumococcal polysaccharide vaccine, 23 valent Alfonzo Spears MD Work Phone: [facility] 01-09-2015 influenza, high dose seasonal, preservative-free Alfonzo Spears MD Work Phone: [facility] 01-09-2015 pneumococcal conjuga te vaccine, 13 valent Alfonzo Spears MD Work Phone: [facility] Payers Date Payer Category Payer Medicare [id number] 2018 Medicaid [id number] 2018 Medicare [id number] 2018 Medicare [id number] 2018 Medicaid [id number] 1950 Unknown [id number] 1950 Unknown [id number] Medicare [id number] Social History Date Type Detail Facility Start: 01-16-2015 End: 02-11-2018 Tobacco smoking status NHIS Ex-smoker [facility] Start: 04-17-1979 End: 04-17-1984 History of tobacco use Current smoker [facility] Start: 04-17-1979 End: 04-17-1984 History of tobacco use Cigarette Smoker [facility] Start: 01-16-2015 End: 03-23-2020 Cigarettes smoked current (pack per day) - Reported 1 [facility] Start: 01-16-2015 End: 02-11-2018 Tobacco use and exposure Smokeless tobacco non-user [facility] Start: 05-13-2020 End: 06-10-2021 Alcohol intake Ex-drinker (finding) [facility] Start: 02-21-2019 End: 02-25-2019 History SDOH Alcohol Frequency 1 [facility] Start: 01-16-2015 History SDOH Alcohol Comment rarely [facility] Start: 02-21-2019 History SDOH Social Connections Phone 5 [facility] Start: 02-21-2019 History SDOH Social Connections Get Together 3 [facility] Start: 02-21-2019 History SDOH Physica l Activity DPW 7 [facility] Start: 02-21-2019 History SDOH Transpo rt Med 2 [facility] Start: 12-28-2017 Education 9 [facility] Start: 02-11-2018 End: 12-14-2021 Tobacco Comment still smokes in the home [facility] Start: 1950 Sex Assigned At Female [facility] Start: 04-13-2020 End: 04-28-2022 Exposure to SARS-CoV-2 (event) Not sure [facility] Start: 05-03-2020 Tobacco use and exposure Former smokeless tobacco user [facility] Start: 1950 Sex Assigned At Not on file [facility] Start: 02-21-2019 End: 03-23-2020 Social connection and isolation panel [facility] Attends [employer] Not on file [facility] Work Phone: Are you now , , , , never or living with a partner? [facility] How often to you hav e a drink containing alcohol? Never [facility] Do you feel stress - tense, restless, nervous, or anxious, or unable to sleep at night because your mind is troubled all the time - these days [OSQ] To some extent [facility] (I/We) worried wheth er (my/our) food would run out before (I/we) got money to buy more. Often true [facility] Start: 11-19-2020 Gender identity Identifies as female gender (finding) [facility] Start: 11-19-2020 Sexual orientation Heterosexual (angel blackburn) [facility] Goals Date Patient Goal Desired Activity /State Personal health goal Comment on above: Formatting of this n ote might be different from the original. 11/02 Wt 306 08/09/18 Wt varies between 295-300 60 lb weight loss so far Formatting of this n ote might be different from the original. 08/09/18 Pt reminded to bring in FOBT Personal health goal Personal health goal Personal health goal Personal health goal Comment on above: Formatting of this n ote might be different from the original. 11/02 Wt 306 08/09/18 Wt varies between 295-300 60 lb weight loss so far Comment on above: Formatting of this n ote might be different from the original. 08/09/18 Pt reminded to bring in FOBT Clinical Notes 02-15-2018 to 01-08-2024 Telephone Encounter - Justina Flower RN - 01/08/2024 10:43 AM EDTTelephone Encounter - Justina Flower RN - 01/08/2024 10:43 AM EDTPatient InstructionsPatient InstructionsDischarge Instructions Note Date & Type Note Facility 01-08-2024 Telephone encounter Note Pt called and is notified of providers results and instructions. Pt voices understanding. Justina Flower RN [facility] 01-08-2024 Miscellaneous Notes Pt called and is notified of providers results and instructions. Pt voices understanding. Justina Flower RN Can please let patient know that I received her lab results. She continue to be in the pre-diabetic range -- please watch sugars/carbs. Her kidney function was stable. Her potassium was just minimally elevated. I would like for her to come back in and have this rechecked. If it is truly elevated, we may need to stop her potassium . The order is in for the repeat. Please try to come in the week of 01/07 to complete. Everything else was within normal/stable. Genie Shin APRN.PLUG SORTER documented in this encounter [facility] 01-05-2024 Telephone encounter Note Can please let patient know that I received her lab results. She continue to be in the pre-diabetic range -- please watch sugars/carbs. Her kidney function was stable. Her potassium was just minimally elevated. I would like for her to come back in and have this rechecked. If it is truly elevated, we may need to stop her potassium . The order is in for the repeat. Please try to come in the week of 01/07 to complete. Everything else was within normal/stable. Genie Shin APRN.DAWSON [facility] 01-02-2024 Instructions Genie Shin APRN.CNP - 01/02/2024 11:22 AM EDT Continue the same medication. Gets labs. Let me know what you hear about the walker. Recheck in 6 months. documented in this encounter [facility] 01-02-2024 Note HNO ID: [id number] Author: GENIE SHIN APRN.CNP Service: ? Author Type: Nurse Practitioner Type: Progress Notes Filed: 01/02/2024 14:08 Note Text: This is a 73 year old female who presents today with: Patient presents with: Recheck: 6 month follow up HISTORY OF PRESENT ILLNESS: Alba Flores is a 73 year old female. Patient presents with: Recheck: 6 month follow up Pt presents today for 6 month recheck. CECILIA: Uses cpap regularly. Headaches improved. Feels better rested. HTN: Patient is compliant with meds Yes Monitors bp at home: Yes. 120-130/60-80 Denies side effects: Yes. Chest pain: No. Dyspnea: No. Edema: Yes. Palpitations: Yes. Syncope: No. Headache: No. Dizziness: No. Afib: Follows w/ [facility] cardiology. Has appt next month. Chronic anticoagulation. No abnormal s/s of bleeding. Sometimes some problems with ambulation. Needs some extra support. Will get pain in the right knee. Refers that she recently had problems with the left ankle. Requests a walker to help get around home when she has flares. Requesting handicap placard. COPD Home o2 w/ sleep. Uses treligy. Follows w/ pulm. PAST MEDICAL HISTORY: PAST MEDICAL HISTORY Diagnosis Date Acute kidney injury (EKATERINA) with acute tubular necrosis (ATN) (HCC) Atrial fibrillation (HCC) Atrial flutter (HCC) w/ RVR Borderline diabetes 12/2014 Chronic atrial fibrillation (HCC) COPD (chronic obstructive pulmonary disease) (HCC) Endometrial cancer, grade I (HCC) 12/2014 GERD (gastroesophageal reflux disease) HTN (hypertension) 12/2014 Morbid obesity with BMI of 60.0-69.9, adult (HCC) CECILIA (obstructive sleep apnea) Osteopenia Palpitations PAST SURGICAL HISTORY Procedure Laterality Date APPENDECTOMY CARDIAC CATH Left LAPS SUPRACRV HYSTERECT 250 GM/< RMVL TUBE/OVAR 2014 MIDLINE INSERTION/CONSULT 02/16/2018 TUBAL LIGATION HX ALLERGIES Asa [Aspirin] and Propoxyphene MEDICATIONS Current Outpatient Medications Medication Sig furosemide (LASIX) 40 mg tablet Take 1 tablet by mouth once daily. potassium chloride (K-TAB) 10 mEq tablet Take 1 tablet by mouth daily with breakfast. omega-3 DHA-EPA (FISH OIL) 1,200 (144-216) mg capsule Take 1 capsule by mouth daily with breakfast. metoprolol succinate ER (TOPROL XL) 25 mg 24 hr tablet Take 1 tablet by mouth once daily. sacubitril-valsartan (ENTRESTO) 24-26 mg tablet Take 1 tablet by mouth two times a day. amiodarone (PACERONE) 200 mg tablet Take 1 tablet by mouth once daily. omeprazole (PRILOSEC) 20 mg capsule Take 1 capsule by mouth once daily. apixaban (ELIQUIS) 5 mg tab(s) Take 5 mg by mouth twice daily. TRELEGY ELLIPTA 100-62.5-25 mcg dsdv Inhale 1 puff once daily calcium carbonate-vitamin D3 500-100 mg-unit chewable tablet Take 1 tablet by mouth once daily. OXYGEN, HOME THERAPY, 2 L/min by Nasal Cannula route as directed. (Patient taking differently: 1 L/min by Nasal Cannula route as directed.) No current facility-administered medications for this visit. FAMILY HISTORY Problem Relation Age of Onset COPD Mother Heart Mother Heart Father Colon Cancer Sister No Known Problems Brother Cancer Maternal Grandmother Heart Attack Maternal Grandfather No Known Problems Paternal Grandmother No Known Problems Paternal Grandfather Diabetes Sister Hypertension Son No Known Problems Son No Known Problems Son No Known Problems Daughter Hypertension Daughter Social History Tobacco Use Smoking status: Former Current packs/day: 0.00 Average packs/day: 1 pack/day for 5.0 years (5.0 ttl pk-yrs) Types: Cigarettes Start date: 04/17/1979 Quit date: 04/17/1984 Years since quittin.7 Smokeless tobacco: Never Tobacco comments: still smokes in the home Vaping Use Vaping status: Never Used Substance Use Topics Alcohol use: Not Currently Comment: rarely Drug use: No EXAM: BP 138/80 Pulse 61 Resp 16 Wt (!) 158.8 kg (350 lb) SpO2 91% BMI 64.02 kg/m? PHYSICAL EXAM: General Appearance: Well appearing, alert, in no acute distress, well-hydrated, well nourished.. Skin: Skin color, texture, turgor normal, no suspicious rashes or lesions. Head: Normocephalic, no masses, lesions, tenderness or abnormalities. Eyes: Anicteric sclera. Extraocular movements are intact. . Neck: Supple, no adenopathy; thyroid symmetric, normal size, no bruits. Lungs: Lungs clear to auscultation. No wheezing, rhonchi, rales.. Heart: RRR without murmur, gallop, or rubs. No ectopy. Extremities: No deformities, +1 edema, skin discoloration, clubbing or cyanosis. Good capillary refill. . Neurologic: Gait normal. ASSESSMENT/PLAN: 1. Primary hypertension - ICD9: 401.9, ICD10: I10 (primary diagnosis) - Controlled - Continue current medications - Recommend home blood pressure monitoring, to bring results to next visit - Encouraged sodium restriction, DASH or Mediterranean diet - Recommend regul (more content not included)... [facility] 01-02-2024 History of Present illness Narrative This is a 73 year old female who presents today with: Patient presents with: Recheck: 6 month follow up HISTORY OF PRESENT ILLNESS: Alba Flores is a 73 year old female. Patient presents with: Recheck: 6 month follow up Pt presents today for 6 month recheck. CECILIA: Uses cpap regularly. Headaches improved. Feels better rested. HTN: Patient is compliant with meds Yes Monitors bp at home: Yes. 120-130/60-80 Denies side effects: Yes. Chest pain: No. Dyspnea: No. Edema: Yes. Palpitations: Yes. Syncope: No. Headache: No. Dizziness: No. Afib: Follows w/ am[facility] cardiology. Has appt next month. Chronic anticoagulation. No abnormal s/s of bleeding. Sometimes some problems with ambulation. Needs some extra support. Will get pain in the right knee. Refers that she recently had problems with the left ankle. Requests a walker to help get around home when she has flares. Requesting handicap placard. COPD Home o2 w/ sleep. Uses treligy. Follows w/ pulm. PAST MEDICAL HISTORY: PAST MEDICAL HISTORY Diagnosis Date Acute kidney injury (EKATERINA) with acute tubular necrosis (ATN) (HCC) Atrial fibrillation (HCC) Atrial flutter (HCC) w/ RVR Borderline diabetes 12/2014 Chronic atrial fibrillation (HCC) COPD (chronic obstructive pulmonary disease) (HCC) Endometrial cancer, grade I (HCC) 12/2014 GERD (gastroesophageal reflux disease) HTN (hypertension) 12/2014 Morbid obesity with BMI of 60.0-69.9, adult (HCC) CECILIA (obstructive sleep apnea) Osteopenia Palpitations PAST SURGICAL HISTORY Procedure Laterality Date APPENDECTOMY CARDIAC CATH Left LAPS SUPRACRV HYSTERECT 250 GM/< RMVL TUBE/OVAR 2014 MIDLINE INSERTION/CONSULT 02/16/2018 TUBAL LIGATION HX ALLERGIES Asa [Aspirin] and Propoxyphene MEDICATIONS Current Outpatient Medications Medication Sig furosemide (LASIX) 40 mg tablet Take 1 tablet by mouth once daily. potassium chloride (K-TAB) 10 mEq tablet Take 1 tablet by mouth daily with breakfast. omega-3 DHA-EPA (FISH OIL) 1,200 (144-216) mg capsule Take 1 capsule by mouth daily with breakfast. metoprolol succinate ER (TOPROL XL) 25 mg 24 hr tablet Take 1 tablet by mouth once daily. sacubitril-valsartan (ENTRESTO) 24-26 mg tablet Take 1 tablet by mouth two times a day. amiodarone (PACERONE) 200 mg tablet Take 1 tablet by mouth once daily. omeprazole (PRILOSEC) 20 mg capsule Take 1 capsule by mouth once daily. apixaban (ELIQUIS) 5 mg tab(s) Take 5 mg by mouth twice daily. TRELEGY ELLIPTA 100-62.5-25 mcg dsdv Inhale 1 puff once daily calcium carbonate-vitamin D3 500-100 mg-unit chewable tablet Take 1 tablet by mouth once daily. OXYGEN, HOME THERAPY, 2 L/min by Nasal Cannula route as directed. (Patient taking differently: 1 L/min by Nasal Cannula route as directed.) No current facility-administered medications for this visit. FAMILY HISTORY Problem Relation Age of Onset COPD Mother Heart Mother Heart Father Colon Cancer Sister No Known Problems Brother Cancer Maternal Grandmother Heart Attack Maternal Grandfather No Known Problems Paternal Grandmother No Known Problems Paternal Grandfather Diabetes Sister Hypertension Son No Known Problems Son No Known Problems Son No Known Problems Daughter Hypertension Daughter Social History Tobacco Use Smoking status: Former Current packs/day: 0.00 Average packs/day: 1 pack/day for 5.0 years (5.0 ttl pk-yrs) Types: Cigarettes Start date: 04/17/1979 Quit date: 04/17/1984 Years since quittin.7 Smokeless tobacco: Never Tobacco comments: still smokes in the home Vaping Use Vaping status: Never Used Substance Use Topics Alcohol use: Not Currently Comment: rarely Drug use: No EXAM: BP 138/80 Pulse 61 Resp 16 Wt (!) 158.8 kg (350 lb) SpO2 91% BMI 64.02 kg/m PHYSICAL EXAM: General Appearance: Well appearing, alert, in no acute distress, well-hydrated, well nourished.. Skin: Skin color, texture, turgor normal, no suspicious rashes or lesions. Head: Normocephalic, no masses, lesions, tenderness or abnormalities. Eyes: Anicteric sclera. Extraocular movements are intact. . Neck: Supple, no adenopathy; thyroid symmetric, normal size, no bruits. Lungs: Lungs clear to auscultation. No wheezing, rhonchi, rales.. Heart: RRR without murmur, gallop, or rubs. No ectopy. Extremities: No deformities, +1 edema, skin discoloration, clubbing or cyanosis. Good capillary refill. . Neurologic: Gait normal. ASSESSMENT/PLAN: 1. Primary hypertension - ICD9: 401.9, ICD10: I10 (primary diagnosis) - Controlled - Continue current medications - Recommend home blood pressure monitoring, to bring results to next visit - Encouraged sodium restriction, DASH or Mediterranean diet - Recommend regular aerobic exercise 2. Atrial fibrillation, unspecified type (HCC) - ICD9: 427.31, ICD10: I48.91 Continue per cardiology. - AMIODARONE 200 MG TABLET - LIPID PANEL BASIC - THYROID STIMULATING HORMONE 3. Cardiomyopathy of undetermined type (HCC) - ICD9: 425.4, ICD10: I42.9 Continue per cardiology. - AMIODARONE 200 MG TABLET - LIPID PANEL BASIC 4. Borderline diabetes - ICD9: 790.29, ICD10: R73.03 - COMPREHENSIVE METABOLIC PANEL - HEMOGLOBIN A1C 5. Stage 3 chronic kidney disease, unspecified whether stage 3a or 3b CKD (HCC) - ICD9: 585.3, ICD10: N18.30 Surveillance: - COMPREHENSIVE METABOLIC PANEL 6. Chronic anticoagulation - ICD9: V58.61, ICD10: Z79.01 No abnormal s/s of bleeding. - COMPLETE BLOOD COUNT AND DIFFERENTIAL 7. Screening for colon cancer - ICD9: V76.51, ICD10: Z12.11 Declines colonoscopy. - IMMUNOCHEMICAL FECAL OCCULT BLOOD TEST 8. GERD without esophagitis - ICD9: 530.81, ICD10: K21.9 - MAGNESIUM 9. Encounter for immunization - ICD9: V03.89, ICD10: Z23 - INFLUENZA VACCINE, PRSV FREE, AGE 65+ YR, HIGH DOSE, TRIVALENT (FLUZONE HIGH-DOSE) 10. Pain of lower extremity, unspecified laterality - ICD9: 729.5, ICD10: M79.606 Would benefit from walker when she has flares of pain to help maintain mobility. - FOLDING WALKER WITH 5 WHEELS 11. Morbid obesity with BMI of 60.0-69.9, adult (HCC) - ICD9: 278.01, V85.44, ICD10: E66.01, Z68.44 As above. - FOLDING WALKER WITH 5 WHEELS 12. CECILIA (obstructive sleep apnea) - ICD9: 327.23, ICD10: G47.33 Complaint w/ cpap therapy. 13. Chronic obstructive pulmonary disease, unspecified COPD type (HCC) - ICD9: 496, ICD10: J44.9 Stable Continue per pulmonology. Discussed treatment plan and patient voices understanding. Patient's questions answered appropriately. Medications and potential side effects were discussed and patient voices understanding. Return to the office as scheduled or as needed for worsening/no improvement. Genie Shin APRN.PLUG SORTER documented in this encounter [facility] 11-22-2023 Note HNO ID: [id number] Author: BEVERLY EDEN MA Service: ? Author Type: Flume Ride Operator Type: Progress Notes Filed: 11/22/2023 15:04 Note Text: POPULATION HEALTH NAVIGATION OUTREACH Action/FYI Needs IFOBT Has appt 12-26-23 Reason for Outreach Care Gap/HCC or Scheduling Wellness Visits Care Gaps due: Colorectal Cancer Screening Patient Contacted: Unable or unnecessary to reach patient: Patient already scheduled Navigation Signature: Beverly Eden MA November 22, 2023 9:32 AM [facility] 11-22-2023 History of Present illness Narrative POPULATION HEALTH NAVIGATION OUTREACH Action/FYI Needs IFGARCÍAT Has appt 12-26-23 Reason for Outreach Care Gap/HCC or Scheduling Wellness Visits Care Gaps due: Colorectal Cancer Screening Patient Contacted: Unable or unnecessary to reach patient: Patient already scheduled Navigation Signature: Beverly Eden MA November 22, 2023 9:32 AM documented in this encounter [facility] 11-22-2023 Note Patient Outreach (NE TNAV) ALBA FLORES ([id number]) 1950 F Date Time Provider Department 11/22/23 BEVERLY EDEN NETNAV During your visit today, we recorded the following information about you: Beverly Eden MA 11/22/2023 3:04 PM Signed POPULATION HEALTH NAVIGATION OUTREACH Action/FYI Needs IFOBT Has appt 12-26-23 Reason for Outreach Care Gap/HCC or Scheduling Wellness Visits Care Gaps due: Colorectal Cancer Screening Patient Contacted: Unable or unnecessary to reach patient: Patient already scheduled Navigation Signature: Beverly Eden MA November 22, 2023 9:32 AM Allergies As of Date: 11/22/2023 Noted Allergy Reaction ASA (ASPIRIN) 01/16/2015 8 - GI Upset PROPOXYPHENE 01/25/2019 14 - Other: See Comments Comments: Dizziness/ syncope Date Reviewed: 06/27/2023 Reviewed by: Trisha Tate APRN.ACTUARIAL MANAGER - Fully Assessed Reason for Visit: Population Health Navigation Outreach [3910] [facility] Primary Visit Diagnosis:Screening for colon cancer [Z12.11] Order(s):IMMUNOCHEMICAL FECAL OCCULT BLOOD TEST [SQIFOBT] Order #: [id number]. #:[id number] Prescriptions as of 11/22/2023 - furosemide (LASIX) 40 mg tablet Take 1 tablet by mouth once daily. - potassium chloride (K-TAB) 10 mEq tablet Take 1 tablet by mouth daily with breakfast. - omega-3 DHA-EPA (FISH OIL) 1,200 (144-216) mg capsule Take 1 capsule by mouth daily with breakfast. - metoprolol succinate ER (TOPROL XL) 25 mg 24 hr tablet Take 1 tablet by mouth once daily. - sacubitril-valsartan (ENTRESTO) 24-26 mg tablet Take 1 tablet by mouth two times a day. - amiodarone (PACERONE) 200 mg tablet Take 1 tablet by mouth once daily. - omeprazole (PRILOSEC) 20 mg capsule Take 1 capsule by mouth once daily. - apixaban (ELIQUIS) 5 mg tab(s) Take 5 mg by mouth twice daily. - TRELEGY ELLIPTA 100-62.5-25 mcg dsdv Inhale 1 puff once daily - calcium carbonate-vitamin D3 500-100 mg-unit chewable tablet Take 1 tablet by mouth once daily. - OXYGEN, HOME THERAPY, 2 L/min by Nasal Cannula route as directed. Problem List As Of Date 11/22/2023 Noted Resolved HTN (hypertension) [I10] Borderline diabetes [R73.03] 12/16/2014 History of endometrial cancer [Z85.42] 01/17/2015 Morbid obesity with BMI of 60.0-69.9, adult (HC*01/17/2015 Osteopenia [M85.80] 08/24/2015 Atrial flutter with rapid ventricular response *12/14/2017 02/16/2018 Atrial fibrillation (HCC) [I48.91] 02/11/2018 GERD without esophagitis [K21.9] 02/11/2018 COPD (chronic obstructive pulmonary disease) (H*02/11/2018 Obesity, Class III, BMI >= 40 [E66.01] 02/11/2018 02/18/2019 Respiratory failure (HCC) [J96.90] 02/12/2018 02/21/2018 EKATERINA (acute kidney injury) (HCC) [N17.9] 02/12/2018 02/21/2018 Hemothorax on left [J94.2] 02/15/2018 10/17/2018 Cardiovascular stress test abnormal [R94.39] 01/08/2018 Cardiomyopathy of undetermined type (HCC) [I42.*06/27/2018 CECILIA (obstructive sleep apnea) [G47.33] 06/27/2018 Stage 3 chronic kidney disease (HCC) [N18.30] 03/25/2019 Hypertensive kidney disease with chronic kidney*05/10/2022 Encounter Status:Closed by BEVERLY EDEN on 11/22/23 [facility] 09-06-2023 Note HNO ID: [id number] Author: BEVERLY EDEN MA Service: ? Author Type: Flume Ride Operator Type: Progress Notes Filed: 09/06/2023 14:24 Note Text: POPULATION HEALTH NAVIGATION OUTREACH Action/ no answer Mychart message sent ANNUAL MEDICARE WELLNESS EXAM HCC CLOSURE Reason for Outreach Care Gap/HCC or Scheduling Wellness Visits Care Gaps due: Establish Care Appointment Patient Contacted: Unable or unnecessary to reach patient: Unable to leave message InvoiceSharinghart message sent Navigation Signature: Beverly Eden MA September 06, 2023 8:42 AM [facility] 09-06-2023 History of Present illness Narrative POPULATION HEALTH NAVIGATION OUTREACH Action/I no answer Mychart message sent ANNUAL MEDICARE WELLNESS EXAM HCC CLOSURE Reason for Outreach Care Gap/HCC or Scheduling Wellness Visits Care Gaps due: Establish Care Appointment Patient Contacted: Unable or unnecessary to reach patient: Unable to leave message MyChart message sent Navigation Signature: Beverly Eden MA September 06, 2023 8:42 AM documented in this encounter [facility] 09-06-2023 Note Patient Outreach ([place] DESIR) OPHELIAALBA ZAMARRIPA ([id number]) 1950 F Date Time Provider Department 09/06/23 BEVERLY EDEN NETNAV During your visit today, we recorded the following information about you: Beverly Eden MA 09/06/2023 2:24 PM Signed POPULATION HEALTH NAVIGATION OUTREACH Action/ no answer Jena[employer]ve Technologyhart message sent ANNUAL MEDICARE WELLNESS EXAM HCC CLOSURE Reason for Outreach Care Gap/HCC or Scheduling Wellness Visits Care Gaps due: Establish Care Appointment Patient Contacted: Unable or unnecessary to reach patient: Unable to leave message InvoiceSharinghart message sent Navigation Signature: Beverly Eden MA September 06, 2023 8:42 AM Allergies As of Date: 09/06/2023 Noted Allergy Reaction ASA (ASPIRIN) 01/16/2015 8 - GI Upset PROPOXYPHENE 01/25/2019 14 - Other: See Comments Comments: Dizziness/ syncope Date Reviewed: 06/27/2023 Reviewed by: Trisha Tate APRN.ACTUARIAL MANAGER - Fully Assessed Reason for Visit: Population Health Navigation Outreach [3910] Cmt: [facility] Prescriptions as of 09/06/2023 - furosemide (LASIX) 40 mg tablet Take 1 tablet by mouth once daily. - potassium chloride (K-TAB) 10 mEq tablet Take 1 tablet by mouth daily with breakfast. - omega-3 DHA-EPA (FISH OIL) 1,200 (144-216) mg capsule Take 1 capsule by mouth daily with breakfast. - metoprolol succinate ER (TOPROL XL) 25 mg 24 hr tablet Take 1 tablet by mouth once daily. - sacubitril-valsartan (ENTRESTO) 24-26 mg tablet Take 1 tablet by mouth two times a day. - amiodarone (PACERONE) 200 mg tablet Take 1 tablet by mouth once daily. - omeprazole (PRILOSEC) 20 mg capsule Take 1 capsule by mouth once daily. - apixaban (ELIQUIS) 5 mg tab(s) Take 5 mg by mouth twice daily. - TRELEGY ELLIPTA 100-62.5-25 mcg dsdv Inhale 1 puff once daily - calcium carbonate-vitamin D3 500-100 mg-unit chewable tablet Take 1 tablet by mouth once daily. - OXYGEN, HOME THERAPY, 2 L/min by Nasal Cannula route as directed. Problem List As Of Date 09/06/2023 Noted Resolved HTN (hypertension) [I10] Borderline diabetes [R73.03] 12/16/2014 History of endometrial cancer [Z85.42] 01/17/2015 Morbid obesity with BMI of 60.0-69.9, adult (HC*01/17/2015 Osteopenia [M85.80] 08/24/2015 Atrial flutter with rapid ventricular response *12/14/2017 02/16/2018 Atrial fibrillation (HCC) [I48.91] 02/11/2018 GERD without esophagitis [K21.9] 02/11/2018 COPD (chronic obstructive pulmonary disease) (H*02/11/2018 Obesity, Class III, BMI >= 40 [E66.01] 02/11/2018 02/18/2019 Respiratory failure (HCC) [J96.90] 02/12/2018 02/21/2018 EKATERINA (acute kidney injury) (HCC) [N17.9] 02/12/2018 02/21/2018 Hemothorax on left [J94.2] 02/15/2018 10/17/2018 Cardiovascular stress test abnormal [R94.39] 01/08/2018 Cardiomyopathy of undetermined type (HCC) [I42.*06/27/2018 CECILIA (obstructive sleep apnea) [G47.33] 06/27/2018 Stage 3 chronic kidney disease (HCC) [N18.30] 03/25/2019 Hypertensive kidney disease with chronic kidney*05/10/2022 Encounter Status:Closed by BEVERLY EDEN on 09/06/23 [facility] 06-27-2023 Instructions Trisha Tate APRN.ACTUARIAL MANAGER - 06/27/2023 10:06 AM EDT 1) May consider loratadine 10mg daily 2) Get labs today 3) Follow up in 6mo documented in this encounter [facility] 06-27-2023 Note HNO ID: [id number] Author: TRISHA TATE APRN.CNS Service: ? Author Type: Clinical Nurse Specialist Type: Progress Notes Filed: 06/27/2023 10:15 Note Text: This is a 73 year old female who presents today with: Patient presents with: Follow Up: 3 month exam HISTORY OF PRESENT ILLNESS: Alba Flores is a 73 year old female. Patient presents with: Follow Up: 3 month exam Recently had tachycardia- had echo then. CECILIA- wears CPAP every night REVIEW OF SYSTEMS GENERAL: 10 lb weight gain, malaise or fevers/chills HEENT: Occasional headaches, No changes in hearing, pierre.poor vision due to cataracts. NECK: Negative for lumps, goiter, pain and significant neck swelling RESPIRATORY: Occ. cough, hemoptysis, wheezing, dyspnea or shortness of breath O2 1L CARDIOVASCULAR: Negative for chest pain, leg swelling, orthopnea, or palpitations GI: No nausea, vomiting, or diarrhea/constipation. No hematochezia/melena. No heartburn or reflux symptoms. : No history of dysuria, frequency or incontinence MUSCULOSKELETAL: + joint pain or swelling right thumb. SKIN: Negative for lesions, rash, and itching ENDOCRINE: + cold d/t blood thinner, no heat intolerance, polyuria, polydipsia NEURO: No history syncope, seizures or tremors MOOD: Negative for depression, anxiety, or suicidal ideation. PAST MEDICAL HISTORY: PAST MEDICAL HISTORY Diagnosis Date Acute kidney injury (EKATERINA) with acute tubular necrosis (ATN) (HCC) Atrial fibrillation (HCC) Atrial flutter (HCC) w/ RVR Borderline diabetes 12/2014 Chronic atrial fibrillation (HCC) COPD (chronic obstructive pulmonary disease) (HCC) Endometrial cancer, grade I (HCC) 12/2014 GERD (gastroesophageal reflux disease) HTN (hypertension) 12/2014 Morbid obesity with BMI of 60.0-69.9, adult (HCC) CECILIA (obstructive sleep apnea) Osteopenia Palpitations PAST SURGICAL HISTORY Procedure Laterality Date APPENDECTOMY CARDIAC CATH Left LAPS SUPRACRV HYSTERECT 250 GM/< RMVL TUBE/OVAR 2015 MIDLINE INSERTION/CONSULT 02/16/2018 TUBAL LIGATION HX ALLERGIES Asa [Aspirin] and Propoxyphene MEDICATIONS Current Outpatient Medications Medication Sig metoprolol succinate ER (TOPROL XL) 25 mg 24 hr tablet Take 1 tablet by mouth once daily. sacubitril-valsartan (ENTRESTO) 24-26 mg tablet Take 1 tablet by mouth two times a day. amiodarone (PACERONE) 200 mg tablet Take 1 tablet by mouth once daily. omeprazole (PRILOSEC) 20 mg capsule Take 1 capsule by mouth once daily. potassium chloride (K-TAB) 10 mEq tablet Take 1 tablet by mouth daily with breakfast. furosemide (LASIX) 40 mg tablet Take 1 tablet by mouth twice daily. (Patient taking differently: Take 40 mg by mouth once daily.) apixaban (ELIQUIS) 5 mg tab(s) Take 5 mg by mouth twice daily. TRELEGY ELLIPTA 100-62.5-25 mcg dsdv Inhale 1 puff once daily calcium carbonate-vitamin D3 500-100 mg-unit chewable tablet Take 1 tablet by mouth once daily. OXYGEN, HOME THERAPY, 2 L/min by Nasal Cannula route as directed. (Patient taking differently: 1 L/min by Nasal Cannula route as directed.) No current facility-administered medications for this visit. FAMILY HISTORY Problem Relation Age of Onset COPD Mother Heart Mother Heart Father Colon Cancer Sister No Known Problems Brother Cancer Maternal Grandmother Heart Attack Maternal Grandfather No Known Problems Paternal Grandmother No Known Problems Paternal Grandfather Diabetes Sister Hypertension Son No Known Problems Son No Known Problems Son No Known Problems Daughter Hypertension Daughter Social History Tobacco Use Smoking status: Former Packs/day: 1.00 Years: 5.00 Additional pack years: 0.00 Total pack years: 5.00 Types: Cigarettes Quit date: 04/17/1984 Years since quittin.2 Smokeless tobacco: Never Tobacco comments: still smokes in the home Vaping Use Vaping Use: Never used Substance Use Topics Alcohol use: Not Currently Comment: rarely Drug use: No EXAM: BP 126/74 Pulse (!) 59 Wt (!) 160.1 kg (353 lb) SpO2 94% BMI 64.56 kg/m? PHYSICAL EXAM: General Appearance: Well appearing, alert, in no acute distress, well-hydrated, well nourished. and Morbidly obese. Skin: Skin color, texture, turgor normal, no suspicious rashes or lesions. Head: Normocephalic, no masses, lesions, tenderness or abnormalities. Neck: Supple, no adenopathy; thyroid symmetric, normal size, no bruits. Lungs: Lungs clear to auscultation. No wheezing, rhonchi, rales. 2+ pitting lower ext. Edema pierre. Heart: RRR without murmur, gallop, or rubs. No ectopy. Abdomen: Normal abdominal exam, Abdomen soft, non-tender. Bowel sounds normal. No masses, organomegaly. Musculoskeletal: No joint swelling, deformity, or tenderness. LABS: Blood work today ASSESSMENT/PLAN: 1. Bilateral leg edema - ICD9: 782.3, ICD10: R60.0 (primary diagnosis) increased - FUROSEMIDE 40 MG TABLET - Check labs today 2. (more content not included)... [facility] 06-27-2023 History of Present illness Narrative This is a 73 year old female who presents today with: Patient presents with: Follow Up: 3 month exam HISTORY OF PRESENT ILLNESS: Alba Flores is a 73 year old female. Patient presents with: Follow Up: 3 month exam Recently had tachycardia- had echo then. CECILIA- wears CPAP every night REVIEW OF SYSTEMS GENERAL: 10 lb weight gain, malaise or fevers/chills HEENT: Occasional headaches, No changes in hearing, pierre.poor vision due to cataracts. NECK: Negative for lumps, goiter, pain and significant neck swelling RESPIRATORY: Occ. cough, hemoptysis, wheezing, dyspnea or shortness of breath O2 1L CARDIOVASCULAR: Negative for chest pain, leg swelling, orthopnea, or palpitations GI: No nausea, vomiting, or diarrhea/constipation. No hematochezia/melena. No heartburn or reflux symptoms. : No history of dysuria, frequency or incontinence MUSCULOSKELETAL: + joint pain or swelling right thumb. SKIN: Negative for lesions, rash, and itching ENDOCRINE: + cold d/t blood thinner, no heat intolerance, polyuria, polydipsia NEURO: No history syncope, seizures or tremors MOOD: Negative for depression, anxiety, or suicidal ideation. PAST MEDICAL HISTORY: PAST MEDICAL HISTORY Diagnosis Date Acute kidney injury (EKATERINA) with acute tubular necrosis (ATN) (HCC) Atrial fibrillation (HCC) Atrial flutter (HCC) w/ RVR Borderline diabetes 12/2014 Chronic atrial fibrillation (HCC) COPD (chronic obstructive pulmonary disease) (HCC) Endometrial cancer, grade I (HCC) 12/2014 GERD (gastroesophageal reflux disease) HTN (hypertension) 12/2014 Morbid obesity with BMI of 60.0-69.9, adult (HCC) CECILIA (obstructive sleep apnea) Osteopenia Palpitations PAST SURGICAL HISTORY Procedure Laterality Date APPENDECTOMY CARDIAC CATH Left LAPS SUPRACRV HYSTERECT 250 GM/< RMVL TUBE/OVAR 2014 MIDLINE INSERTION/CONSULT 02/16/2018 TUBAL LIGATION HX ALLERGIES Asa [Aspirin] and Propoxyphene MEDICATIONS Current Outpatient Medications Medication Sig metoprolol succinate ER (TOPROL XL) 25 mg 24 hr tablet Take 1 tablet by mouth once daily. sacubitril-valsartan (ENTRESTO) 24-26 mg tablet Take 1 tablet by mouth two times a day. amiodarone (PACERONE) 200 mg tablet Take 1 tablet by mouth once daily. omeprazole (PRILOSEC) 20 mg capsule Take 1 capsule by mouth once daily. potassium chloride (K-TAB) 10 mEq tablet Take 1 tablet by mouth daily with breakfast. furosemide (LASIX) 40 mg tablet Take 1 tablet by mouth twice daily. (Patient taking differently: Take 40 mg by mouth once daily.) apixaban (ELIQUIS) 5 mg tab(s) Take 5 mg by mouth twice daily. TRELEGY ELLIPTA 100-62.5-25 mcg dsdv Inhale 1 puff once daily calcium carbonate-vitamin D3 500-100 mg-unit chewable tablet Take 1 tablet by mouth once daily. OXYGEN, HOME THERAPY, 2 L/min by Nasal Cannula route as directed. (Patient taking differently: 1 L/min by Nasal Cannula route as directed.) No current facility-administered medications for this visit. FAMILY HISTORY Problem Relation Age of Onset COPD Mother Heart Mother Heart Father Colon Cancer Sister No Known Problems Brother Cancer Maternal Grandmother Heart Attack Maternal Grandfather No Known Problems Paternal Grandmother No Known Problems Paternal Grandfather Diabetes Sister Hypertension Son No Known Problems Son No Known Problems Son No Known Problems Daughter Hypertension Daughter Social History Tobacco Use Smoking status: Former Packs/day: 1.00 Years: 5.00 Additional pack years: 0.00 Total pack years: 5.00 Types: Cigarettes Quit date: 04/17/1984 Years since quittin.2 Smokeless tobacco: Never Tobacco comments: still smokes in the home Vaping Use Vaping Use: Never used Substance Use Topics Alcohol use: Not Currently Comment: rarely Drug use: No EXAM: BP 126/74 Pulse (!) 59 Wt (!) 160.1 kg (353 lb) SpO2 94% BMI 64.56 kg/m PHYSICAL EXAM: General Appearance: Well appearing, alert, in no acute distress, well-hydrated, well nourished. and Morbidly obese. Skin: Skin color, texture, turgor normal, no suspicious rashes or lesions. Head: Normocephalic, no masses, lesions, tenderness or abnormalities. Neck: Supple, no adenopathy; thyroid symmetric, normal size, no bruits. Lungs: Lungs clear to auscultation. No wheezing, rhonchi, rales. 2+ pitting lower ext. Edema pierre. Heart: RRR without murmur, gallop, or rubs. No ectopy. Abdomen: Normal abdominal exam, Abdomen soft, non-tender. Bowel sounds normal. No masses, organomegaly. Musculoskeletal: No joint swelling, deformity, or tenderness. LABS: Blood work today ASSESSMENT/PLAN: 1. Bilateral leg edema - ICD9: 782.3, ICD10: R60.0 (primary diagnosis) increased - FUROSEMIDE 40 MG TABLET - Check labs today 2. Atrial fibrillation, unspecified type (HCC) - ICD9: 427.31, ICD10: I48.91 Anticoagulated, regular rhythm today - OMEGA 9-UZN-CVD-FISH OIL 1,200 MG (144 MG-216 MG) CAPSULE 3. Cardiomyopathy of undetermined type (HCC) - ICD9: 425.4, ICD10: I42.9 Improving - FUROSEMIDE 40 MG TABLET - CBC + DIFF - COMP METABOLIC PANEL - MAGNESIUM BLD - LIPID PANEL, NONFASTING 4. Chronic obstructive pulmonary disease, unspecified COPD type (HCC) - ICD9: 496, ICD10: J44.9 Stable on home O2 5. Stage 3 chronic kidney disease, unspecified whether stage 3a or 3b CKD (HCC) - ICD9: 585.3, ICD10: N18.30 - eGFR: 42 Stable - Counseled on avoiding NSAIDs, adequate hydration 6. Borderline diabetes - ICD9: 790.29, ICD10: R73.03 stable 7. Elevated TSH - ICD9: 794.5, ICD10: R79.89 Stable - HGB A1C 8. CECILIA (obstructive sleep apnea) - ICD9: 327.23, ICD10: G47.33 Adherent 9. Hypokalemia - ICD9: 276.8, ICD10: E87.6 stable - POTASSIUM CHLORIDE ER 10 MEQ TABLET,EXTENDED RELEASE - Check level Discussed treatment plan and patient voices understanding. Patient's questions answered appropriately. Medications and potential side effects were discussed and patient voices understanding. Return to the office as scheduled or as needed for worsening/no improvement. Trisha Tate APRN.ACTUARIAL MANAGER The patient indicates understanding of these issues and agrees with the plan. documented in this encounter [facility] 06-02-2023 Miscellaneous Notes Patient notified that she needs to request medication from [facility] is out of medication. We had sent a script over on 04-05-23 to [facility] which they received, but patient did not fill right away. Pharmacy states that Debra Murcia CNP a kennel staff member is [facility] had discontinued the order and resent a new script on 04-12-23 for the same med/amount. Please resend original script so patient can pickle pumper with her metoprolol. Pharmacy verified in Epic Patient has been identified by name and date of : Yes Patient aware RX will be sent to pharmacy. No need to notify patient. Patient phones for refill(s): Requested Prescriptions Pending Prescriptions Disp Refills sacubitril-valsartan (ENTRESTO) 24-26 mg tablet 60 tablet 3 Sig: Take 1 tablet by mouth two times a day. Date of last office visit : 03/20/2023 Date of next office visit : 06/21/2023 Last 2 Encounter Wt Readings: Date: Wt: 03/20/2023 156.8 kg (345 lb 9.6 oz) 12/09/2022 159.3 kg (351 lb 3.2 oz) Not applicable Please advise. Catalina Gould Pss documented in this encounter [facility] 06-02-2023 Miscellaneous Notes Patient has been identified by name and date of : Yes, Provider Alfonzo Spears MD Date 06/02/2023 Time 8:38 am Patient phones for refill(s): Requested Prescriptions Pending Prescriptions Disp Refills metoprolol succinate ER (TOPROL XL) 25 mg 24 hr tablet 90 tablet 3 Sig: Take 1 tablet by mouth once daily. Date of last office visit in primary care:03/20/2023 Date of next office visit in primary care: 06/21/2023 New pharmacy, please send new Rx to [facility] Please advise. Thank you. Katerin Tran. documented in this encounter [facility] 04-05-2023 Miscellaneous Notes Patient has been identified by name and date of : Yes, Provider Dr. Spears Date 04-05-23 Time 10:17 am Patient phones for refill(s): Requested Prescriptions Pending Prescriptions Disp Refills sacubitril-valsartan (ENTRESTO) 24-26 mg tablet 60 tablet 3 Sig: Take 1 tablet by mouth two times a day. Date of last office visit in primary care: 03/20/2023 Date of next office visit in primary care: 06/21/2023 Last 2 Encounter Wt Readings: Date: Wt: 03/20/2023 156.8 kg (345 lb 9.6 oz) 12/09/2022 159.3 kg (351 lb 3.2 oz) Previous labs/tests for medication: Not applicable Please advise. Thank you. Elda Lea Pss. documented in this encounter [facility] 03-20-2023 Note HNO ID: [id number] Author: Alfonzo Spears MD Service: ? Author Type: Physician Type: Progress Notes Filed: 03/20/2023 2:30 PM Note Text: Patient presents with: Hospital Follow Up HPI: Patient presents today for office visit for hospital follow up. Today denies any current chest pain or shortness of breath Went to [facility] ER on 03/10/23 due to chest pain and HR of 190. Was observed overnight. Apparently had stopped her amiodarone on her own. Was resumed in the hospital. Converted while in hospital. Has had previous ablation in the past. Dx with Atrial fibrillation Consulted with Cardiology Chest X-ray: showed right basilar and left perihilar atelectasis versus residual infiltrate. No pleural effusion or pneumothorax. Echo: showed mild concentric left ventricular hypertrophy, left ventricular ejection fraction is 65%, stage 1 diastolic dysfunction and left atrium is mildly enlarged. Started on Amiodarone 200 mg daily. No chest pain or shortness of breath. No edema. No palpitations. Potassium iwas slightly low and sugars were slightly up. Had some renal insufficiency and her tsh was slightly high. To schedule ablation with Dr. Velasquez at [facility] Saw Darius Bond with [facility] on 03/17/23. MEDICATIONS: Current Outpatient Medications Medication Sig omeprazole (PRILOSEC) 20 mg capsule Take 1 capsule by mouth once daily. potassium chloride (K-TAB) 10 mEq tablet Take 1 tablet by mouth daily with breakfast. metoprolol succinate ER (TOPROL XL) 25 mg 24 hr tablet take 1 tablet by mouth once daily furosemide (LASIX) 40 mg tablet Take 1 tablet by mouth twice daily. amiodarone (PACERONE) 100 mg tablet Take 1 tablet by mouth once daily. sacubitril-valsartan (ENTRESTO) 24-26 mg tablet Take 1 tablet by mouth twice daily. apixaban (ELIQUIS) 5 mg tab(s) Take 5 mg by mouth twice daily. TRELEGY ELLIPTA 100-62.5-25 mcg dsdv Inhale 1 puff once daily calcium carbonate-vitamin D3 500-100 mg-unit chewable tablet Take 1 tablet by mouth once daily. OXYGEN, HOME THERAPY, 2 L/min by Nasal Cannula route as directed. No current facility-administered medications for this visit. ALLERGIES: ALLERGIES Allergen Reactions Asa [Aspirin] GI Upset Propoxyphene Other: See Comments Dizziness/ syncope PAST MEDICAL HISTORY Diagnosis Date Acute kidney injury (EKATERINA) with acute tubular necrosis (ATN) (HCC) Atrial fibrillation (HCC) Atrial flutter (HCC) w/ RVR Borderline diabetes 12/2014 Chronic atrial fibrillation (HCC) COPD (chronic obstructive pulmonary disease) (HCC) Endometrial cancer, grade I (HCC) 12/2014 GERD (gastroesophageal reflux disease) HTN (hypertension) 12/2014 Morbid obesity with BMI of 60.0-69.9, adult (HCC) CECILIA (obstructive sleep apnea) Osteopenia Palpitations PAST SURGICAL HISTORY Procedure Laterality Date APPENDECTOMY CARDIAC CATH Left LAPS SUPRACRV HYSTERECT 250 GM/< RMVL TUBE/OVAR 2014 MIDLINE INSERTION/CONSULT 02/16/2018 TUBAL LIGATION HX FAMILY HISTORY Problem Relation Age of Onset COPD Mother Heart Mother Heart Father Colon Cancer Sister No Known Problems Brother Cancer Maternal Grandmother Heart Attack Maternal Grandfather No Known Problems Paternal Grandmother No Known Problems Paternal Grandfather Diabetes Sister Hypertension Son No Known Problems Son No Known Problems Son No Known Problems Daughter Hypertension Daughter Social History Tobacco Use Smoking status: Former Packs/day: 1.00 Years: 5.00 Additional pack years: 0.00 Total pack years: 5.00 Types: Cigarettes Quit date: 04/17/1984 Years since quittin.9 Smokeless tobacco: Never Tobacco comments: still smokes in the home Vaping Use Vaping Use: Never used Substance Use Topics Alcohol use: Not Currently Comment: rarely Drug use: No Reviewed current medications, allergies, past medical history, surgical history, family history and social history today. REVIEW OF SYSTEMS All other reviewed and negative other than HPI. VITALS: BP 108/74 Pulse 68 Ht 157.5 cm (5' 2 ) Wt (!) 156.8 kg (345 lb 9.6 oz) SpO2 95% BMI 63.21 kg/m? Last 4 Encounter Wt Readings: Date: Wt: 12/09/2022 159.3 kg (351 lb 3.2 oz) 05/12/2022 156.5 kg (345 lb) 12/14/2021 155.1 kg (342 lb) 09/14/2021 158.3 kg (349 lb) PHYSICAL EXAMINATION: General appearance: Well appearing, [...] or cyanosis. Good capillary refill. ASSESSMENT/PLAN: 1. Cardiomyopathy o (more content not included)... [facility] 03-20-2023 History of Present illness Narrative Patient presents with: Hospital Follow Up HPI: Patient presents today for office visit for hospital follow up. Today denies any current chest pain or shortness of breath Went to [facility] ER on 03/10/23 due to chest pain and HR of 190. Was observed overnight. Apparently had stopped her amiodarone on her own. Was resumed in the hospital. Converted while in hospital. Has had previous ablation in the past. Dx with Atrial fibrillation Consulted with Cardiology Chest X-ray: showed right basilar and left perihilar atelectasis versus residual infiltrate. No pleural effusion or pneumothorax. Echo: showed mild concentric left ventricular hypertrophy, left ventricular ejection fraction is 65%, stage 1 diastolic dysfunction and left atrium is mildly enlarged. Started on Amiodarone 200 mg daily. No chest pain or shortness of breath. No edema. No palpitations. Potassium iwas slightly low and sugars were slightly up. Had some renal insufficiency and her tsh was slightly high. To schedule ablation with Dr. Velasquez at [facility] Saw Darius Bond with [facility] on 03/17/23. MEDICATIONS: Current Outpatient Medications Medication Sig omeprazole (PRILOSEC) 20 mg capsule Take 1 capsule by mouth once daily. potassium chloride (K-TAB) 10 mEq tablet Take 1 tablet by mouth daily with breakfast. metoprolol succinate ER (TOPROL XL) 25 mg 24 hr tablet take 1 tablet by mouth once daily furosemide (LASIX) 40 mg tablet Take 1 tablet by mouth twice daily. amiodarone (PACERONE) 100 mg tablet Take 1 tablet by mouth once daily. sacubitril-valsartan (ENTRESTO) 24-26 mg tablet Take 1 tablet by mouth twice daily. apixaban (ELIQUIS) 5 mg tab(s) Take 5 mg by mouth twice daily. TRELEGY ELLIPTA 100-62.5-25 mcg dsdv Inhale 1 puff once daily calcium carbonate-vitamin D3 500-100 mg-unit chewable tablet Take 1 tablet by mouth once daily. OXYGEN, HOME THERAPY, 2 L/min by Nasal Cannula route as directed. No current facility-administered medications for this visit. ALLERGIES: ALLERGIES Allergen Reactions Asa [Aspirin] GI Upset Propoxyphene Other: See Comments Dizziness/ syncope PAST MEDICAL HISTORY Diagnosis Date Acute kidney injury (EKATERINA) with acute tubular necrosis (ATN) (HCC) Atrial fibrillation (HCC) Atrial flutter (HCC) w/ RVR Borderline diabetes 12/2014 Chronic atrial fibrillation (HCC) COPD (chronic obstructive pulmonary disease) (HCC) Endometrial cancer, grade I (HCC) 12/2014 GERD (gastroesophageal reflux disease) HTN (hypertension) 12/2014 Morbid obesity with BMI of 60.0-69.9, adult (HCC) CECILIA (obstructive sleep apnea) Osteopenia Palpitations PAST SURGICAL HISTORY Procedure Laterality Date APPENDECTOMY CARDIAC CATH Left LAPS SUPRACRV HYSTERECT 250 GM/< RMVL TUBE/OVAR 2014 MIDLINE INSERTION/CONSULT 02/16/2018 TUBAL LIGATION HX FAMILY HISTORY Problem Relation Age of Onset COPD Mother Heart Mother Heart Father Colon Cancer Sister No Known Problems Brother Cancer Maternal Grandmother Heart Attack Maternal Grandfather No Known Problems Paternal Grandmother No Known Problems Paternal Grandfather Diabetes Sister Hypertension Son No Known Problems Son No Known Problems Son No Known Problems Daughter Hypertension Daughter Social History Tobacco Use Smoking status: Former Packs/day: 1.00 Years: 5.00 Additional pack years: 0.00 Total pack years: 5.00 Types: Cigarettes Quit date: 04/17/1984 Years since quittin.9 Smokeless tobacco: Never Tobacco comments: still smokes in the home Vaping Use Vaping Use: Never used Substance Use Topics Alcohol use: Not Currently Comment: rarely Drug use: No Reviewed current medications, allergies, past medical history, surgical history, family history and social history today. REVIEW OF SYSTEMS All other reviewed and negative other than HPI. VITALS: BP 108/74 Pulse 68 Ht 157.5 cm (5' 2 ) Wt (!) 156.8 kg (345 lb 9.6 oz) SpO2 95% BMI 63.21 kg/m Last 4 Encounter Wt Readings: Date: Wt: 12/09/2022 159.3 kg (351 lb 3.2 oz) 05/12/2022 156.5 kg (345 lb) 12/14/2021 155.1 kg (342 lb) 09/14/2021 158.3 kg (349 lb) PHYSICAL EXAMINATION: General appearance: Well appearing, [...] or cyanosis. Good capillary refill. ASSESSMENT/PLAN: 1. Cardiomyopathy of undetermined type (HCC) - ICD9: 425.4, ICD10: I42.9 (primary diagnosis) - continue current meds. - AMIODARONE 200 MG TABLET 2. Atrial fibrillation, unspecified type (HCC) - ICD9: 427.31, ICD10: I48.91 - call if any issues. - AMIODARONE 200 MG TABLET 3. Chronic obstructive pulmonary disease, unspecified COPD type (HCC) - ICD9: 496, ICD10: J44.9 - stable. 4. Stage 3 chronic kidney disease, unspecified whether stage 3a or 3b CKD (HCC) - ICD9: 585.3, ICD10: N18.30 - follow labs and lytes. - BASIC METABOLIC PNL 5. Borderline diabetes - ICD9: 790.29, ICD10: R73.03 - stable. 6. Elevated TSH - ICD9: 794.5, ICD10: R79.89 - check labs. - TSH BLD - T4/FTI/T4U - T3 BLD Alfonzo Spears MD documented in this encounter [facility] 03-15-2023 Miscellaneous Notes Pharmacy verified in [facility] Patient has been identified by name and date of : Yes Patient aware RX will be sent to pharmacy. No need to notify patient. Patient phones for refill(s): Requested Prescriptions Pending Prescriptions Disp Refills omeprazole (PRILOSEC) 20 mg capsule 30 capsule 11 Sig: Take 1 capsule by mouth once daily. Date of last office visit : 12/09/2022 Date of next office visit : 06/21/2023 Last 2 Encounter Wt Readings: Date: Wt: 12/09/2022 159.3 kg (351 lb 3.2 oz) 05/12/2022 156.5 kg (345 lb) Not applicable Please advise. Catalina Lloyd documented in this encounter [facility] 12-12-2022 Miscellaneous Notes Spoke with patient. She is not willing at this time to start a Statin therapy. She states she will work on diet and exercise first and will get repeat labs. Laura Flores Her labs are stable. Her cholesterol is at a level that we probably need to consider a statin drug. See if willing. If so will send it in and she will need fasting labs in six weeks. documented in this encounter [facility] 12-09-2022 History of Present illness Narrative Patient presents with: Follow Up HPI: Patient presents today for office visit for follow up. Has seen cardiology in May. Recently saw pulmonary CARDIO:was to see cardiology already. Had to rescheduled appt in January. ANTICOAG:no bleeding or bruising. PULM:still on oxygen. No worsening cough or wheeze. DM:due for labs. HYPERTENSION: is doing well. No chest pain or worsening shortness of breath. No edema. No palpitations. No dizziness. No recent falls. See previous ov: Was in [facility] before that with a fib that cardioverted on her own. Sent home and then resumed arrhythmia Admitted to [facility] on 04/28/22 Discharged 04/30/22 Presented with a fib with RVR. Had been on eliquis for four weeks to cardioverted. Was successfully cardioverted. Was already on amiodarone. Cardioversion 04/29/22. Had ef of 35%. Denies chest pain and shortness of breath Overall feeling well. Sees Cardiology next month for follow up. No edema. No dizziness. No bleeding or bruising issues. MEDICATIONS: Current Outpatient Medications Medication Sig potassium chloride (K-TAB) 10 mEq tablet Take 1 tablet by mouth daily with breakfast. metoprolol succinate ER (TOPROL XL) 25 mg 24 hr tablet take 1 tablet by mouth once daily furosemide (LASIX) 40 mg tablet Take 1 tablet by mouth twice daily. omeprazole (PRILOSEC) 20 mg capsule Take 1 capsule by mouth once daily. sacubitril-valsartan (ENTRESTO) 24-26 mg tablet Take 1 tablet by mouth twice daily. apixaban (ELIQUIS) 5 mg tab(s) Take 5 mg by mouth twice daily. TRELEGY ELLIPTA 100-62.5-25 mcg dsdv Inhale 1 puff once daily calcium carbonate-vitamin D3 500-100 mg-unit chewable tablet Take 1 tablet by mouth once daily. OXYGEN, HOME THERAPY, 2 L/min by Nasal Cannula route as directed. amiodarone (PACERONE) 100 mg tablet Take 1 tablet by mouth once daily. albuterol (PROVENTIL) 2.5 mg /3 mL (0.083 %) nebulizer solution Use 3 mL via nebulizer every 2 hours as needed for Wheezing/Shortness of Breath. Per Pulmonary No current facility-administered medications for this visit. ALLERGIES: ALLERGIES Allergen Reactions Asa [Aspirin] GI Upset Propoxyphene Other: See Comments Dizziness/ syncope PAST MEDICAL HISTORY Diagnosis Date Acute kidney injury (EKATERINA) with acute tubular necrosis (ATN) (HCC) Atrial fibrillation (HCC) Atrial flutter (HCC) w/ RVR Borderline diabetes 12/2014 Chronic atrial fibrillation (HCC) COPD (chronic obstructive pulmonary disease) (HCC) Endometrial cancer, grade I (HCC) 12/2014 GERD (gastroesophageal reflux disease) HTN (hypertension) 12/2014 Morbid obesity with BMI of 60.0-69.9, adult (HCC) CECILIA (obstructive sleep apnea) Osteopenia Palpitations PAST SURGICAL HISTORY Procedure Laterality Date APPENDECTOMY CARDIAC CATH Left LAPS SUPRACRV HYSTERECT 250 GM/< RMVL TUBE/OVAR 2014 MIDLINE INSERTION/CONSULT 02/16/2018 TUBAL LIGATION HX FAMILY HISTORY Problem Relation Age of Onset COPD Mother Heart Mother Heart Father Colon Cancer Sister No Known Problems Brother Cancer Maternal Grandmother Heart Attack Maternal Grandfather No Known Problems Paternal Grandmother No Known Problems Paternal Grandfather Diabetes Sister Hypertension Son No Known Problems Son No Known Problems Son No Known Problems Daughter Hypertension Daughter Social History Tobacco Use Smoking status: Former Packs/day: 1.00 Years: 5.00 Additional pack years: 0.00 Total pack years: 5.00 Types: Cigarettes Quit date: 04/17/1984 Years since quittin.6 Smokeless tobacco: Never Tobacco comments: still smokes in the home Vaping Use Vaping Use: Never used Substance Use Topics Alcohol use: Not Currently Comment: rarely Drug use: No Reviewed current medications, allergies, past medical history, surgical history, family history and social history today. REVIEW OF SYSTEMS All other reviewed and negative other than HPI. HEALTH MAINTENANCE: Reviewed health maintenance issues today and recommended the following in detail. SPIROMETRY Never done BP CONTROLLED (<130/80) Never done DTAP,TDAP,TD(1 - Tdap) Never done ALPHA-1 ANTITRYPSIN DEFICIENCY SCREENING Never done SHINGRIX VACCINE(1 of 2) Never done COLORECTAL CANCER SCREENING due on 10/16/2019 COVID-19 VACCINE(3 - Pfizer series) due on 01/21/2021 ADVANCE DIRECTIVE DISCUSSION - children are her dpoa DEPRESSION ASSESSMENT Never done VITALS: BP 130/80 Pulse 81 Resp 18 Wt (!) 159.3 kg (351 lb 3.2 oz) SpO2 90% BMI 64.24 kg/m Last 4 Encounter Wt Readings: Date: Wt: 12/09/2022 159.3 kg (351 lb 3.2 oz) 05/12/2022 156.5 kg (345 lb) 12/14/2021 155.1 kg (342 lb) 09/14/2021 158.3 kg (349 lb) PHYSICAL EXAMINATION: General appearance: Well appearing, alert, in no acute distress, well-hydrated, well nourished.oxygen in place. Skin: Skin color, texture, turgor normal, no suspicious rashes or lesions Lungs: Lungs clear to auscultation. No wheezing, rhonchi, rales Heart: RRR without murmur, gallop, or rubs. No ectopy Abdomen: Normal abdominal exam, Abdomen soft, non-tender. Bowel sounds normal. No masses, organomegaly Extremities: No deformities, edema, skin discoloration, clubbing or cyanosis. Good capillary refill. Musculoskeletal: No joint swelling, deformity, or tenderness ASSESSMENT/PLAN: 1. Cardiomyopathy of undetermined type (HCC) - ICD9: 425.4, ICD10: I42.9 (primary diagnosis) - follow with cardiology. - Red flags for re-assessment reviewed with patient in detail. 2. Atrial fibrillation, unspecified type (HCC) - ICD9: 427.31, ICD10: I48.91 - is in stable. rhythm 3. Hypertensive kidney disease with stage 3 chronic kidney disease, unspecified whether stage 3a or 3b CKD (HCC) - ICD9: 403.90, 585.3, ICD10: I12.9, N18.30 - Controlled - Continue current medications 4. Primary hypertension - ICD9: 401.9, ICD10: I10 - Controlled - Continue current medications - CBC + DIFF - COMP METABOLIC PANEL - LIPID PANEL BASIC 5. Chronic obstructive pulmonary disease, unspecified COPD type (HCC) - ICD9: 496, ICD10: J44.9 - stable. 6. CECILIA (obstructive sleep apnea) - ICD9: 327.23, ICD10: G47.33 - still using cpap 7. Stage 3 chronic kidney disease, unspecified whether stage 3a or 3b CKD (HCC) - ICD9: 585.3, ICD10: N18.30 - will follow 8. Osteopenia, unspecified location - ICD9: 733.90, ICD10: M85.80 - up to ate on testing 9. Borderline diabetes - ICD9: 790.29, ICD10: R73.03 - HGB A1C 10. Morbid obesity with BMI of 60.0-69.9, adult (HCC) - ICD9: 278.01, V85.44, ICD10: E66.01, Z68.44 - have discussed weight loss. 11. Medication monitoring encounter - ICD9: V58.83, ICD10: Z51.81 - TSH BLD 12. Screening for colon cancer - ICD9: V76.51, ICD10: Z12.11 - FECAL OCCULT BLOOD TEST Alfonzo Spears MD RTO in six months or prn documented in this encounter [facility] 10-03-2022 Miscellaneous Notes Patient has been identified by name and date of : Yes Requested Prescriptions Pending Prescriptions Disp Refills potassium chloride (K-TAB) 10 mEq tablet 90 tablet 2 Sig: Take 1 tablet by mouth daily with breakfast. RX INSTRUCTIONS: Patient aware RX will be sent to pharmacy. No need to notify patient. Patient last office visit: 05/12/22 Patient next office visit: none scheduled Pt requesting 90 day supply Nivia Marie MA documented in this encounter [facility] 08-09-2022 Miscellaneous Notes Patient phones requesting refills as follows: Requested Prescriptions Pending Prescriptions Disp Refills metoprolol succinate ER (TOPROL XL) 25 mg 24 hr tablet [Pharmacy Med Name: METOPROLOL SUCC ER 25 MG TAB] 90 tablet 11 Sig: take 1 tablet by mouth once daily Pharmacy requesting change to 90 day supply. Please review and advise. Dickson Vasquez LPN documented in this encounter [facility] 05-12-2022 History of Present illness Narrative Patient presents with: Hospital F/U HPI: Patient presents today for office visit for hospital follow up from [facility] for Atrial Fibrillation. Was in [facility] before that with a fib that cardioverted on her own. Sent home and then resumed arrhythmia Admitted to [facility] on 04/28/22 Discharged 04/30/22 Presented with a fib with RVR. Had been on eliquis for four weeks to cardioverted. Was successfully cardioverted. Was already on amiodarone. Cardioversion 04/29/22. Had ef of 35%. Denies chest pain and shortness of breath Overall feeling well. Sees Cardiology next month for follow up. No edema. No dizziness. No bleeding or bruising issues. MEDICATIONS: Current Outpatient Medications Medication Sig furosemide (LASIX) 40 mg tablet Take 1 tablet by mouth twice daily. metoprolol succinate ER (TOPROL XL) 25 mg 24 hr tablet Take 1 tablet by mouth once daily. potassium chloride (K-TAB) 10 mEq tablet Take 1 tablet by mouth daily with breakfast. omeprazole (PRILOSEC) 20 mg capsule Take 1 capsule by mouth once daily. amiodarone (PACERONE) 100 mg tablet Take 1 tablet by mouth once daily. sacubitril-valsartan (ENTRESTO) 24-26 mg tablet Take 1 tablet by mouth twice daily. apixaban (ELIQUIS) 5 mg tab(s) Take 5 mg by mouth twice daily. albuterol (PROVENTIL) 2.5 mg /3 mL (0.083 %) nebulizer solution Use 3 mL via nebulizer every 2 hours as needed for Wheezing/Shortness of Breath. Per Pulmonary TRELEGY ELLIPTA 100-62.5-25 mcg dsdv Inhale 1 puff once daily calcium carbonate-vitamin D3 500-100 mg-unit chewable tablet Take 1 tablet by mouth once daily. OXYGEN, HOME THERAPY, 2 L/min by Nasal Cannula route as directed. No current facility-administered medications for this visit. ALLERGIES: ALLERGIES Allergen Reactions Asa [Aspirin] GI Upset Propoxyphene Other: See Comments Dizziness/ syncope PAST MEDICAL HISTORY Diagnosis Date Acute kidney injury (EKATERINA) with acute tubular necrosis (ATN) (HCC) Atrial fibrillation (HCC) Atrial flutter (HCC) w/ RVR Borderline diabetes 12/2014 Chronic atrial fibrillation (HCC) COPD (chronic obstructive pulmonary disease) (HCC) Endometrial cancer, grade I (HCC) 12/2014 GERD (gastroesophageal reflux disease) HTN (hypertension) 12/2014 Morbid obesity with BMI of 60.0-69.9, adult (HCC) CECILIA (obstructive sleep apnea) Osteopenia Palpitations PAST SURGICAL HISTORY Procedure Laterality Date APPENDECTOMY CARDIAC CATH Left LAPS SUPRACRV HYSTERECT 250 GM/< RMVL TUBE/OVAR 2014 MIDLINE INSERTION/CONSULT 02/16/2018 TUBAL LIGATION HX FAMILY HISTORY Problem Relation Age of Onset COPD Mother Heart Mother Heart Father Colon Cancer Sister No Known Problems Brother Cancer Maternal Grandmother Heart Attack Maternal Grandfather No Known Problems Paternal Grandmother No Known Problems Paternal Grandfather Diabetes Sister Hypertension Son No Known Problems Son No Known Problems Son No Known Problems Daughter Hypertension Daughter Social History Tobacco Use Smoking status: Former Packs/day: 1.00 Years: 5.00 Pack years: 5.00 Types: Cigarettes Quit date: 04/17/1984 Years since quittin.0 Smokeless tobacco: Never Tobacco comments: still smokes in the home Vaping Use Vaping Use: Never used Substance Use Topics Alcohol use: Not Currently Comment: rarely Drug use: No Reviewed current medications, allergies, past medical history, surgical history, family history and social history today. REVIEW OF SYSTEMS All other reviewed and negative other than HPI. VITALS: BP 136/66 Pulse (!) 59 Ht 157.5 cm (5' 2 ) Wt (!) 156.5 kg (345 lb) SpO2 92% BMI 63.10 kg/m Last 4 Encounter Wt Readings: Date: Wt: 12/14/2021 155.1 kg (342 lb) 09/14/2021 158.3 kg (349 lb) 09/09/2021 156.9 kg (346 lb) 06/10/2021 161.9 kg (357 lb) PHYSICAL EXAMINATION: General appearance: Well appearing, [...] or cyanosis. Good capillary refill. ASSESSMENT/PLAN: 1. Atrial fibrillation, unspecified type (HCC) - ICD9: 427.31, ICD10: I48.91 (primary diagnosis) - doing better after cardioversion. Continue meds. Follow with cardiology. Red flags for re-assessment reviewed with patient in detail. 2. Morbid obesity with BMI of 60.0-69.9, adult ([facility]) - ICD9: 278.01, V85.44, ICD10: E66.01, Z68.44 3. Chronic obstructive pulmonary disease, unspecified COPD type (HCC) - ICD9: 496, ICD10: J44.9 - per pulmonary 4. Cardiomyopathy of undetermined type (HCC) - ICD9: 425.4, ICD10: I42.9 - following with cardiology. Follow labs. 5. Primary hypertension - ICD9: 401.9, ICD10: I10 - good control - Continue current medication(s) - Goal of BP <130/80 - CBC + DIFF - BASIC METABOLIC PNL 6. Hypertensive kidney disease with stage 3 chronic kidney disease, unspecified whether stage 3a or 3b CKD ([facility] [facility] - ICD9: 403.90, 585.3, ICD10: I12.9, N18.30 - good control - Goal of BP <130/80 - BASIC METABOLIC PNL 7. Elevated TSH - ICD9: 794.5, ICD10: R79.89 - TSH BLD - T4 FREE/FREE THYROX - T3 BLD 8. Borderline diabetes - ICD9: 790.29, ICD10: R73.03 - HGB A1C Alfonzo Spears RTO in two months documented in this encounter [facility] 05-02-2022 Miscellaneous Notes Patient has been identified by name and date of : Yes Requested Prescriptions Pending Prescriptions Disp Refills furosemide (LASIX) 40 mg tablet 60 tablet 11 Sig: Take 1 tablet by mouth twice daily. metoprolol succinate ER (TOPROL XL) 25 mg 24 hr tablet 30 tablet 11 Sig: Take 1 tablet by mouth once daily. potassium chloride (K-TAB) 10 mEq tablet 30 tablet 11 Sig: Take 1 tablet by mouth daily with breakfast. RX INSTRUCTIONS: Patient aware RX will be sent to pharmacy. No need to notify patient. Added the lasix as twice a day because was increased during hospital stay. 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 Also needs refills so will enter request for patient. Doing well since she is home from hospital. Initial contact with patient post discharge, spoke to patient. Patient identified by name and . TRANSITION CARE MANAGEMENT INITIAL OUTREACH DOCUMENTATION: No flowsheet data found. SUMMARY: -Pt discharged from [facility] on 04/30/22. -Admitted for: SVT, COPD, CHF Do you have a hospital follow up appointment with your PCP? Appointment on 05/12/[address] Spears. No. Assist patient with follow-up appointment within 1-14 calendar days from discharge date. If patient prefers not to schedule follow-up appointment at this time, notify PCP. MEDICATIONS: Many patients have questions or concerns about their medications once they are home. Were you prescribed any new medications? No Were you told to hold any medications? No Were any of your medications discontinued? No Do you have any questions about getting or taking your medications? No Your discharge instructions/After visit Summary (AVS) are important in guiding you through the recovery process. Is there anything I might help you understand? No Do you have all the necessary equipment and supplies at home? Yes Medical records from recent hospitalization: Epic documented in this encounter [facility] 04-30-2022 Miscellaneous Notes Problem: Patient Care Overview Goal: Plan of Care Review Outcome: Adequate for Discharge Goal: Individualization & Mutuality Outcome: Adequate for Discharge Goal: Discharge Needs Assessment Outcome: Adequate for Discharge Goal: Interdisciplinary Rounds/Family Conf Outcome: Adequate for Discharge Problem: Arrhythmia/Dysrhythmia (Symptomatic) (Adult) Goal: Signs and Symptoms of Listed Potential Problems Will be Absent, Minimized or Managed (Arrhythmia/Dysrhythmia) Description: Signs and symptoms of listed potential problems will be absent, minimized or managed by discharge/transition of care (reference Arrhythmia/Dysrhythmia (Symptomatic) (Adult) CPG). Outcome: Adequate for Discharge Problem: OT - Dressing Goal: Lower Body Dressing Description: Pt will complete LE dressing tasks with modified independence for improved ability to complete self-care activities. Outcome: Adequate for Discharge Problem: OT - ADLs Goal: Toileting Description: Pt will complete toileting task including clothing management with modified independence for improved ability to safely complete self-care activities. Outcome: Adequate for Discharge Problem: OT - Balance Goal: Balance - Standing Description: Pt will perform 5 minutes of functional ADL task in standing with modified independence and good balance to promote safety and improved balance required for self-care activities. Outcome: Adequate for Discharge Problem: OT - Endurance Goal: Endurance Functional Mobility to Bathroom Description: Pt will demonstrate safe functional mobility to/from restroom with modified independence and wheeled walker to access standard commode for improved ability to safely complete toileting. Outcome: Adequate for Discharge Problem: OT - Transfers Goal: Transfers Toilet/Bedside Commode Description: Pt will transfer to/from toilet/BSC with modified independence for improved ability to safely complete ADLs. Outcome: Adequate for Discharge Problem: OT - Other Goal: Energy Conservation Task Recall Description: Pt will independently recall 2 energy conservation principles to increase functional activity tolerance during ADLs, IADLs, and mobility tasks. Outcome: Adequate for Discharge Problem: PT - Mobility Goal: Ambulation Description: Pt will ambulate 150 feet with least restrictive device with modified independence to improve ability to navigate home environment. Outcome: Adequate for Discharge Goal: Stairs Description: Pt will ascend/[id number] 4 stairs with hand railings with supervision with out an assistive device to improve ability to perform functional mobility necessary in recommended discharge environment. Outcome: Adequate for Discharge Problem: PT - Transfers Goal: Supine <-> Sit Description: Pt will perform bed mobility with flat bed & no rail with independence in order to improve functional mobility and safety. Outcome: Adequate for Discharge Goal: Sit <-> Stand Description: Pt will perform sit to/from stand transfers with modified independence with least restrictive device in order to improve functional mobility and safety. Outcome: Adequate for Discharge Goal: Strength/ROM Description: Pt will perform 2 sets of 15 repetitions of lower bilateral extremity exercises with independence in order to improve strength, maintain ROM, necessary for functional mobility. Outcome: Adequate for Discharge Patient discharged to home. AVS reviewed with patient and family. CP 5/10 mid sternal soreness non radiating. EKG done. Vitals done. Pt is belching, + active flatus. Denies nausea/diaphoretic. She thinks this could be GI/gas related? Requested an antiacid med. Post cardio version today from [facility]. Still in SR HR 70s. @0230 calcium tab ordered, pt states the pain is only intermittent. Continue to monitor. Problem: Patient Care Overview Goal: Plan of Care Review Outcome: Ongoing Plan of care reviewed: Vital signs will be obtained at least every 4 hrs, will be monitoring intake & output every 8 hrs, assessing pain every 4 hrs & medicate prn, hourly rounding, updated re: quiet @ [facility] hospital initiative, am labs to be obtained & EKG prn. Problem: Arrhythmia/Dysrhythmia (Symptomatic) (Adult) Goal: Signs and Symptoms of Listed Potential Problems Will be Absent, Minimized or Managed (Arrhythmia/Dysrhythmia) Description: Signs and symptoms of listed potential problems will be absent, minimized or managed by discharge/transition of care (reference Arrhythmia/Dysrhythmia (Symptomatic) (Adult) CPG). Outcome: Ongoing Continuous cardiac monitoring as ordered. ECG s obtained per protocol. Electrolytes replaced with prn orders when appropriate. Antiarrhythmic given as scheduled. Problem: Patient Care Overview Goal: Plan of Care Review Outcome: Ongoing Goal: Individualization & Mutuality Outcome: Ongoing Problem: Arrhythmia/Dysrhythmia (Symptomatic) (Adult) Goal: Signs and Symptoms of Listed Potential Problems Will be Absent, Minimized or Managed (Arrhythmia/Dysrhythmia) Description: Signs and symptoms of listed potential problems will be absent, minimized or managed by discharge/transition of care (reference Arrhythmia/Dysrhythmia (Symptomatic) (Adult) CPG). Outcome: Ongoing Vital signs completed per protocol. Monitoring intake and output q8h. Assessing pain q4h and medicate prn. Obtaining daily weights. Labs completed per protocol and will report any abnormal values to physician. Plan of care reviewed and updated with patient and patient demonstrates understanding. Patient remains free from injury. Bed in low position and locked. Patient ID band on and verified. Call light in reach and demonstrated use. Nonskid socks worn when out of bed. Fall wheel updated at bedside. Patient encouraged to call for assistance prior to getting out of bed. High fall risk patient not left alone in bathroom. Bed and chair alarms used when appropriate. Of note, patient to EP lab today for cardioversion; EKG completed and uploaded to [employer] showing sinus MD mary discontinued Amiodarone gtts. Will continue to monitor. Shantelle Perez RN 04/29/2022 1848 Problem: OT - Dressing Goal: Lower Body Dressing Description: Pt will complete LE dressing tasks with modified independence for improved ability to complete self-care activities. Outcome: Ongoing Problem: OT - ADLs Goal: Toileting Description: Pt will complete toileting task including clothing management with modified independence for improved ability to safely complete self-care activities. Outcome: Ongoing Problem: OT - Balance Goal: Balance - Standing Description: Pt will perform 5 minutes of functional ADL task in standing with modified independence and good balance to promote safety and improved balance required for self-care activities. Outcome: Ongoing Problem: OT - Endurance Goal: Endurance Functional Mobility to Bathroom Description: Pt will demonstrate safe functional mobility to/from restroom with modified independence and wheeled walker to access standard commode for improved ability to safely complete toileting. Outcome: Ongoing Problem: OT - Transfers Goal: Transfers Toilet/Bedside Commode Description: Pt will transfer to/from toilet/BSC with modified independence for improved ability to safely complete ADLs. Outcome: Ongoing Problem: OT - Other Goal: Energy Conservation Task Recall Description: Pt will independently recall 2 energy conservation principles to increase functional activity tolerance during ADLs, IADLs, and mobility tasks. Outcome: Ongoing Problem: PT - Mobility Goal: Ambulation Description: Pt will ambulate 150 feet with least restrictive device with modified independence to improve ability to navigate home environment. Outcome: Ongoing Goal: Stairs Description: Pt will ascend/[id number] 4 stairs with hand railings with supervision with out an assistive device to improve ability to perform functional mobility necessary in recommended discharge environment. Outcome: Ongoing Problem: PT - Transfers Goal: Supine <-> Sit Description: Pt will perform bed mobility with flat bed & no rail with independence in order to improve functional mobility and safety. Outcome: Ongoing Goal: Sit <-> Stand Description: Pt will perform sit to/from stand transfers with modified independence with least restrictive device in order to improve functional mobility and safety. Outcome: Ongoing Goal: Strength/ROM Description: Pt will perform 2 sets of 15 repetitions of lower bilateral extremity exercises with independence in order to improve strength, maintain ROM, necessary for functional mobility. Outcome: Ongoing Problem: Patient Care Overview Goal: Plan of Care Review Outcome: Ongoing Plan of care reviewed: Vital signs will be obtained at least every 4 hrs, will be monitoring intake & output every 8 hrs, assessing pain every 4 hrs & medicate prn, hourly rounding, updated re: quiet @ night hospital initiative, am labs to be obtained & EKG prn. Problem: Arrhythmia/Dysrhythmia (Symptomatic) (Adult) Goal: Signs and Symptoms of Listed Potential Problems Will be Absent, Minimized or Managed (Arrhythmia/Dysrhythmia) Description: Signs and symptoms of listed potential problems will be absent, minimized or managed by discharge/transition of care (reference Arrhythmia/Dysrhythmia (Symptomatic) (Adult) CPG). Outcome: Ongoing Continuous cardiac monitoring as ordered. ECG s obtained per protocol. Electrolytes replaced with prn orders when appropriate. Antiarrhythmic given as scheduled. On admission to [facility] unit @, from [facility] a dual RN initial assessment of skin condition was performed by ANGEL Lewis and Yenny ORTIZ Skin Assessment: WDL Praful Score: 20 LDA Added: Take Picture of Wound: If Applicable Wound Consult in place: If Applicable Dressings/Treatment: If Applicable I certify that this patient requires > 48 hours hospitalization Alba Flores is a 72 y.o. female w PMH a fib with history SVT s/p ablation at [facility], CHF, HTN admitted [facility] 04/26/22 due to chest pain and palpitations. #Reported SVT, tachycardia, palpitations, history of SVT/a fib s/p ablation -HR 180s at [facility] with concern for possible SVT, improved with adenosine 1X -tele -cards ep consult -consider echo, check labs, tsh -Holding home beta maeve for now in case of EP study per osh recommendations -consider amiodarone #COPD, chronic respiratory failure -Continue inhaler -on home 2L #CHF EF 34% -Continue entersto, Lasix Plans for post hospitalization care will be discharge to home documented in this encounter [facility] 04-30-2022 Miscellaneous Notes Problem: Patient Care Overview Goal: Plan of Care Review Outcome: Adequate for Discharge Goal: Individualization & Mutuality Outcome: Adequate for Discharge Goal: Discharge Needs Assessment Outcome: Adequate for Discharge Goal: Interdisciplinary Rounds/Family Conf Outcome: Adequate for Discharge Problem: Arrhythmia/Dysrhythmia (Symptomatic) (Adult) Goal: Signs and Symptoms of Listed Potential Problems Will be Absent, Minimized or Managed (Arrhythmia/Dysrhythmia) Description: Signs and symptoms of listed potential problems will be absent, minimized or managed by discharge/transition of care (reference Arrhythmia/Dysrhythmia (Symptomatic) (Adult) CPG). Outcome: Adequate for Discharge Problem: OT - Dressing Goal: Lower Body Dressing Description: Pt will complete LE dressing tasks with modified independence for improved ability to complete self-care activities. Outcome: Adequate for Discharge Problem: OT - ADLs Goal: Toileting Description: Pt will complete toileting task including clothing management with modified independence for improved ability to safely complete self-care activities. Outcome: Adequate for Discharge Problem: OT - Balance Goal: Balance - Standing Description: Pt will perform 5 minutes of functional ADL task in standing with modified independence and good balance to promote safety and improved balance required for self-care activities. Outcome: Adequate for Discharge Problem: OT - Endurance Goal: Endurance Functional Mobility to Bathroom Description: Pt will demonstrate safe functional mobility to/from restroom with modified independence and wheeled walker to access standard commode for improved ability to safely complete toileting. Outcome: Adequate for Discharge Problem: OT - Transfers Goal: Transfers Toilet/Bedside Commode Description: Pt will transfer to/from toilet/BSC with modified independence for improved ability to safely complete ADLs. Outcome: Adequate for Discharge Problem: OT - Other Goal: Energy Conservation Task Recall Description: Pt will independently recall 2 energy conservation principles to increase functional activity tolerance during ADLs, IADLs, and mobility tasks. Outcome: Adequate for Discharge Problem: PT - Mobility Goal: Ambulation Description: Pt will ambulate 150 feet with least restrictive device with modified independence to improve ability to navigate home environment. Outcome: Adequate for Discharge Goal: Stairs Description: Pt will ascend/[id number] 4 stairs with hand railings with supervision with out an assistive device to improve ability to perform functional mobility necessary in recommended discharge environment. Outcome: Adequate for Discharge Problem: PT - Transfers Goal: Supine <-> Sit Description: Pt will perform bed mobility with flat bed & no rail with independence in order to improve functional mobility and safety. Outcome: Adequate for Discharge Goal: Sit <-> Stand Description: Pt will perform sit to/from stand transfers with modified independence with least restrictive device in order to improve functional mobility and safety. Outcome: Adequate for Discharge Goal: Strength/ROM Description: Pt will perform 2 sets of 15 repetitions of lower bilateral extremity exercises with independence in order to improve strength, maintain ROM, necessary for functional mobility. Outcome: Adequate for Discharge Patient discharged to home. AVS reviewed with patient and family. CP 5/10 mid sternal soreness non radiating. EKG done. Vitals done. Pt is belching, + active flatus. Denies nausea/diaphoretic. She thinks this could be GI/gas related? Requested an antiacid med. Post cardio version today from [facility]. Still in SR HR 70s. @0230 calcium tab ordered, pt states the pain is only intermittent. Continue to monitor. Problem: Patient Care Overview Goal: Plan of Care Review Outcome: Ongoing Plan of care reviewed: Vital signs will be obtained at least every 4 hrs, will be monitoring intake & output every 8 hrs, assessing pain every 4 hrs & medicate prn, hourly rounding, updated re: quiet @ night hospital initiative, am labs to be obtained & EKG prn. Problem: Arrhythmia/Dysrhythmia (Symptomatic) (Adult) Goal: Signs and Symptoms of Listed Potential Problems Will be Absent, Minimized or Managed (Arrhythmia/Dysrhythmia) Description: Signs and symptoms of listed potential problems will be absent, minimized or managed by discharge/transition of care (reference Arrhythmia/Dysrhythmia (Symptomatic) (Adult) CPG). Outcome: Ongoing Continuous cardiac monitoring as ordered. ECG s obtained per protocol. Electrolytes replaced with prn orders when appropriate. Antiarrhythmic given as scheduled. Problem: Patient Care Overview Goal: Plan of Care Review Outcome: Ongoing Goal: Individualization & Mutuality Outcome: Ongoing Problem: Arrhythmia/Dysrhythmia (Symptomatic) (Adult) Goal: Signs and Symptoms of Listed Potential Problems Will be Absent, Minimized or Managed (Arrhythmia/Dysrhythmia) Description: Signs and symptoms of listed potential problems will be absent, minimized or managed by discharge/transition of care (reference Arrhythmia/Dysrhythmia (Symptomatic) (Adult) CPG). Outcome: Ongoing Vital signs completed per protocol. Monitoring intake and output q8h. Assessing pain q4h and medicate prn. Obtaining daily weights. Labs completed per protocol and will report any abnormal values to physician. Plan of care reviewed and updated with patient and patient demonstrates understanding. Patient remains free from injury. Bed in low position and locked. Patient ID band on and verified. Call light in reach and demonstrated use. Nonskid socks worn when out of bed. Fall wheel updated at bedside. Patient encouraged to call for assistance prior to getting out of bed. High fall risk patient not left alone in bathroom. Bed and chair alarms used when appropriate. Of note, patient to EP lab today for cardioversion; EKG completed and uploaded to [facility] showing sinus MD mary discontinued Amiodarone gtts. Will continue to monitor. Shantelle Perez RN 04/29/2022 [id number] April 29, 2022 Cornelio Hernandez MD [id number] [facility] [address] [place] [address] RE: ALBA FLORES DATE OF SERVICE: 04/29/2022 BODY: Dear Cornelio, I had the pleasure of seeing your patient, Mrs. Alba Flores in our electrophysiology lab for her scheduled cardioversion. As you recall, she is a 72-year-old white female with a history of atrial flutter, tachycardia induced cardiomyopathy, status post atrial flutter ablation with improvement of her cardiomyopathy and normalization of her left ventricular function. Left ventricular ejection fraction from 15 up to 55%. The patient was admitted to [facility] with palpitation, was found to have rapid ventricular rate which was noted to be atypical atrial flutter with variable conduction with a heart rate up to 210 beats per minute. She was found to have low left ventricular ejection fraction at 34%. The patient also has a history of obesity. The patient was started on amiodarone load and she has been on Eliquis 5 mg p.o. b.i.d. without interruption over the last 4 weeks. Therefore, she underwent successful synchronized 200 joule biphasic cardioversion with restorationist of sinus rhythm. The patient will continue on amiodarone, as well as Eliquis. She will follow up with you and Dr. Velasquez. Thank you for letting us participate in the management of this patient. If you have questions or concerns please let us know. Sincerely, Suzanne Weiss MD cc: Alfonzo Spears MD [id number] [facility] [id number] [place] [address] Problem: OT - Dressing Goal: Lower Body Dressing Description: Pt will complete LE dressing tasks with modified independence for improved ability to complete self-care activities. Outcome: Ongoing Problem: OT - ADLs Goal: Toileting Description: Pt will complete toileting task including clothing management with modified independence for improved ability to safely complete self-care activities. Outcome: Ongoing Problem: OT - Balance Goal: Balance - Standing Description: Pt will perform 5 minutes of functional ADL task in standing with modified independence and good balance to promote safety and improved balance required for self-care activities. Outcome: Ongoing Problem: OT - Endurance Goal: Endurance Functional Mobility to Bathroom Description: Pt will demonstrate safe functional mobility to/from restroom with modified independence and wheeled walker to access standard commode for improved ability to safely complete toileting. Outcome: Ongoing Problem: OT - Transfers Goal: Transfers Toilet/Bedside Commode Description: Pt will transfer to/from toilet/BSC with modified independence for improved ability to safely complete ADLs. Outcome: Ongoing Problem: OT - Other Goal: Energy Conservation Task Recall Description: Pt will independently recall 2 energy conservation principles to increase functional activity tolerance during ADLs, IADLs, and mobility tasks. Outcome: Ongoing Problem: PT - Mobility Goal: Ambulation Description: Pt will ambulate 150 feet with least restrictive device with modified independence to improve ability to navigate home environment. Outcome: Ongoing Goal: Stairs Description: Pt will ascend/[id number] 4 stairs with hand railings with supervision with out an assistive device to improve ability to perform functional mobility necessary in recommended discharge environment. Outcome: Ongoing Problem: PT - Transfers Goal: Supine <-> Sit Description: Pt will perform bed mobility with flat bed & no rail with independence in order to improve functional mobility and safety. Outcome: Ongoing Goal: Sit <-> Stand Description: Pt will perform sit to/from stand transfers with modified independence with least restrictive device in order to improve functional mobility and safety. Outcome: Ongoing Goal: Strength/ROM Description: Pt will perform 2 sets of 15 repetitions of lower bilateral extremity exercises with independence in order to improve strength, maintain ROM, necessary for functional mobility. Outcome: Ongoing Problem: Patient Care Overview Goal: Plan of Care Review Outcome: Ongoing Plan of care reviewed: Vital signs will be obtained at least every 4 hrs, will be monitoring intake & output every 8 hrs, assessing pain every 4 hrs & medicate prn, hourly rounding, updated re: quiet @ night hospital initiative, am labs to be obtained & EKG prn. Problem: Arrhythmia/Dysrhythmia (Symptomatic) (Adult) Goal: Signs and Symptoms of Listed Potential Problems Will be Absent, Minimized or Managed (Arrhythmia/Dysrhythmia) Description: Signs and symptoms of listed potential problems will be absent, minimized or managed by discharge/transition of care (reference Arrhythmia/Dysrhythmia (Symptomatic) (Adult) CPG). Outcome: Ongoing Continuous cardiac monitoring as ordered. ECG s obtained per protocol. Electrolytes replaced with prn orders when appropriate. Antiarrhythmic given as scheduled. On admission to [facility] [facility] from [facility] a dual RN initial assessment of skin condition was performed by ANGEL Lewis and Yenny RN Skin Assessment: WDL Praful Score: 20 LDA Added: Take Picture of Wound: If Applicable Wound Consult in place: If Applicable Dressings/Treatment: If Applicable I certify that this patient requires > 48 hours hospitalization Alba Flores is a 72 y.o. female w PMH a fib with history SVT s/p ablation at [facility], CHF, HTN admitted to OSH 04/26/22 due to chest pain and palpitations. #Reported SVT, tachycardia, palpitations, history of SVT/a fib s/p ablation -HR 180s at OSH with concern for possible SVT, improved with adenosine 1X -tele -cards ep consult -consider echo, check labs, tsh -Holding home beta maeve for now in case of EP study per osh recommendations -consider amiodarone #COPD, chronic respiratory failure -Continue inhaler -on home 2L #CHF EF 34% -Continue entersto, Lasix Plans for post hospitalization care will be discharge to home documented in this encounter [facility] 04-30-2022 Note Formatting of this n ote might be different from the original. Problem: Patient Care Overview Goal: Plan of Care Review Outcome: Adequate for Discharge Goal: Individualization & Mutuality Outcome: Adequate for Discharge Goal: Discharge Needs Assessment Outcome: Adequate for Discharge Goal: Interdisciplinary Rounds/Family Conf Outcome: Adequate for Discharge Problem: Arrhythmia/Dysrhythmia (Symptomatic) (Adult) Goal: Signs and Symptoms of Listed Potential Problems Will be Absent, Minimized or Managed (Arrhythmia/Dysrhythmia) Description: Signs and symptoms of listed potential problems will be absent, minimized or managed by discharge/transition of care (reference Arrhythmia/Dysrhythmia (Symptomatic) (Adult) CPG). Outcome: Adequate for Discharge Problem: OT - Dressing Goal: Lower Body Dressing Description: Pt will complete LE dressing tasks with modified independence for improved ability to complete self-care activities. Outcome: Adequate for Discharge Problem: OT - ADLs Goal: Toileting Description: Pt will complete toileting task including clothing management with modified independence for improved ability to safely complete self-care activities. Outcome: Adequate for Discharge Problem: OT - Balance Goal: Balance - Standing Description: Pt will perform 5 minutes of functional ADL task in standing with modified independence and good balance to promote safety and improved balance required for self-care activities. Outcome: Adequate for Discharge Problem: OT - Endurance Goal: Endurance Functional Mobility to Bathroom Description: Pt will demonstrate safe functional mobility to/from restroom with modified independence and wheeled walker to access standard commode for improved ability to safely complete toileting. Outcome: Adequate for Discharge Problem: OT - Transfers Goal: Transfers Toilet/Bedside Commode Description: Pt will transfer to/from toilet/BSC with modified independence for improved ability to safely complete ADLs. Outcome: Adequate for Discharge Problem: OT - Other Goal: Energy Conservation Task Recall Description: Pt will independently recall 2 energy conservation principles to increase functional activity tolerance during ADLs, IADLs, and mobility tasks. Outcome: Adequate for Discharge Problem: PT - Mobility Goal: Ambulation Description: Pt will ambulate 150 feet with least restrictive device with modified independence to improve ability to navigate home environment. Outcome: Adequate for Discharge Goal: Stairs Description: Pt will ascend/bjir8fjj 4 stairs with hand railings with supervision with out an assistive device to improve ability to perform functional mobility necessary in recommended discharge environment. Outcome: Adequate for Discharge Problem: PT - Transfers Goal: Supine <-> Sit Description: Pt will perform bed mobility with flat bed & no rail with independence in order to improve functional mobility and safety. Outcome: Adequate for Discharge Goal: Sit <-> Stand Description: Pt will perform sit to/from stand transfers with modified independence with least restrictive device in order to improve functional mobility and safety. Outcome: Adequate for Discharge Goal: Strength/ROM Description: Pt will perform 2 sets of 15 repetitions of lower bilateral extremity exercises with independence in order to improve strength, maintain ROM, necessary for functional mobility. Outcome: Adequate for Discharge [facility] 04-30-2022 Note Formatting of this n ote might be different from the original. Patient discharged to home. AVS reviewed with patient and family. [facility] 04-30-2022 Note Formatting of this n ote might be different from the original. Problem: Patient Care Overview Goal: Plan of Care Review Outcome: Adequate for Discharge Goal: Individualization & Mutuality Outcome: Adequate for Discharge Goal: Discharge Needs Assessment Outcome: Adequate for Discharge Goal: Interdisciplinary Rounds/Family Conf Outcome: Adequate for Discharge Problem: Arrhythmia/Dysrhythmia (Symptomatic) (Adult) Goal: Signs and Symptoms of Listed Potential Problems Will be Absent, Minimized or Managed (Arrhythmia/Dysrhythmia) Description: Signs and symptoms of listed potential problems will be absent, minimized or managed by discharge/transition of care (reference Arrhythmia/Dysrhythmia (Symptomatic) (Adult) CPG). Outcome: Adequate for Discharge Problem: OT - Dressing Goal: Lower Body Dressing Description: Pt will complete LE dressing tasks with modified independence for improved ability to complete self-care activities. Outcome: Adequate for Discharge Problem: OT - ADLs Goal: Toileting Description: Pt will complete toileting task including clothing management with modified independence for improved ability to safely complete self-care activities. Outcome: Adequate for Discharge Problem: OT - Balance Goal: Balance - Standing Description: Pt will perform 5 minutes of functional ADL task in standing with modified independence and good balance to promote safety and improved balance required for self-care activities. Outcome: Adequate for Discharge Problem: OT - Endurance Goal: Endurance Functional Mobility to Bathroom Description: Pt will demonstrate safe functional mobility to/from restroom with modified independence and wheeled walker to access standard commode for improved ability to safely complete toileting. Outcome: Adequate for Discharge Problem: OT - Transfers Goal: Transfers Toilet/Bedside Commode Description: Pt will transfer to/from toilet/BSC with modified independence for improved ability to safely complete ADLs. Outcome: Adequate for Discharge Problem: OT - Other Goal: Energy Conservation Task Recall Description: Pt will independently recall 2 energy conservation principles to increase functional activity tolerance during ADLs, IADLs, and mobility tasks. Outcome: Adequate for Discharge Problem: PT - Mobility Goal: Ambulation Description: Pt will ambulate 150 feet with least restrictive device with modified independence to improve ability to navigate home environment. Outcome: Adequate for Discharge Goal: Stairs Description: Pt will ascend/ilgi8vit 4 stairs with hand railings with supervision with out an assistive device to improve ability to perform functional mobility necessary in recommended discharge environment. Outcome: Adequate for Discharge Problem: PT - Transfers Goal: Supine <-> Sit Description: Pt will perform bed mobility with flat bed & no rail with independence in order to improve functional mobility and safety. Outcome: Adequate for Discharge Goal: Sit <-> Stand Description: Pt will perform sit to/from stand transfers with modified independence with least restrictive device in order to improve functional mobility and safety. Outcome: Adequate for Discharge Goal: Strength/ROM Description: Pt will perform 2 sets of 15 repetitions of lower bilateral extremity exercises with independence in order to improve strength, maintain ROM, necessary for functional mobility. Outcome: Adequate for Discharge [facility] 04-30-2022 Note Formatting of this n ote might be different from the original. Patient discharged to home. AVS reviewed with patient and family. [facility] 04-30-2022 Hospital Discharge instructions Brittany Lee MD, MPH - 04/30/2022 12:14 PM EST Thank you for letting us take care of you. You received a cardioversion with reversal of your abnormal heart rhythm to normal sinus rhythm. follow-up with Dr. Velasquez as an outpatient in 6-8 weeks. Continue anticoagulation and meds as directed. documented in this encounter [facility] 04-30-2022 Hospital Discharge instructions Brittany Lee MD, MPH - 04/30/2022 12:14 PM EST Thank you for letting us take care of you. You received a cardioversion with reversal of your abnormal heart rhythm to normal sinus rhythm. follow-up with Dr. Velasquez as an outpatient in 6-8 weeks. Continue anticoagulation and meds as directed. documented in this encounter [facility] 04-30-2022 Hospital course Narrative Discharge Summary Name: Alba Flores Age: 72 y.o. Birthday: 1950 Admit Date: 04/28/2022 12:05 PM Discharge Date: 04/30/22 DISCHARGE LETTER: Dear Doctors, I recently had the opportunity to care for Alba Flores during her recent hospital stay at [facility]. As you may know, Alba Flores is a 72 y.o. female w PMH a fib with history SVT s/p ablation at [facility], CHF, HTN admitted to OSH 04/26/22 due to chest pain and palpitations. #Reported SVT, tachycardia, palpitations, history of SVT/a fib s/p ablation -HR 180s at OSH with concern for possible SVT, improved with adenosine 1X -tele -EP consulted and started on amio drip, s/p CV with reversion to NSR. Transitioned back to oral amio regimen and to follow up with Dr. Velasquez in 6-8 weeks. FURTHER RECOMMENDATIONS: Follow up with EP Physical Exam on the Date of Discharge: Vitals: 04/30/22 1101 BP: 131/69 Pulse: 105 Resp: 16 Temp: 97.7 F (36.5 C) Wt Readings from Last 1 Encounters: 04/28/22 (!) 155.1 kg (341 lb 14.4 oz) Gen: A, A, NAD ENT: MMM Resp: CTA & P bilat, normal effort Cardio: Irregular rate, normal S1, S2, No BONIFACIO GI: S/NT/ND, NABS Psych: Ox3, appropriate affect and cognition Upon discharge the patient's code status full It has been my pleasure participating in this patient's care. Please contact me with any questions or concerns regarding her hospital stay. Sincerely, Brittany Lee MD, MPH Time spent on discharge: 35 minutes were spent on discharge while coordinating patient medications, discharge instructions, medications, follow-up, and explanation of discharge to patient. CONSULTS DURING ADMISSION: IP CONSULT TO CARDIOLOGY - EP IMAGING / PROCEDURES / RESULTS: XR CHEST PORTABLE Final Result IMPRESSION: 1. Extensive left lower lobe atelectasis or pneumonia. No change. I personally viewed and interpreted these images and I have reviewed and approved this report. Should you require further information or copies of results or reports please contact Medical Information Management @ [phone] LABS AT TIME OF DISCHARGE: Lab Results Component Value Date SODIUM 141 04/30/2022 POTASSIUM 4.0 04/30/2022 MAGNESIUM 2.1 04/30/2022 BUN 29 (H) 04/30/2022 CREATSERUM 1.64 (H) 04/30/2022 Lab Results Component Value Date WBC 7.14 04/30/2022 HGB 13.7 04/30/2022 PLATELET 233 04/30/2022 INR 1.4 (H) 04/28/2022 No results found for: HGBA1C RESULTS / STUDIES PENDING AT DISCHARGE: none PATIENT'S MEDICAL HOME AT DISCHARGE: Alfonzo Spears [address] [place] [address] Mail Code [id number] / [facility] [address] MEDICATIONS: Current Outpatient Meds: Medication List for when you go home CHANGE how you take these medications Entresto 24-26 MG TABS Take 1 tablet by mouth 2 times daily. What changed: Another medication with the same name was removed. Continue taking this medication, and follow the directions you see here. Generic drug: sacubitril-valsartan CONTINUE taking these medications AMIOdarone 200 MG TABS Take 1 tablet by mouth daily. Commonly known as: PACERONE apixaban 5 MG TABS Take 1 tablet by mouth every 12 hours. Commonly known as: ELIQUIS For diagnoses: Acute on chronic systolic congestive heart failure furOSEmide 40 MG TABS Take 1 tablet by mouth 2 times daily (take before meals). Commonly known as: LASIX Metoprolol succinate 25 MG tablet XL Take 1 tablet by mouth daily. Commonly known as: TOPROL-XL Trelegy Ellipta 100-62.5-25 MCG/ACT AEPB inhaler inhale 1 puff by mouth and INTO THE LUNGS once daily Generic drug: urjntjrjgzo-sontiznsa-Uzwids STOP taking these medications sacubitril-valsartan 24-26 MG TABS Commonly known as: ENTRESTO You also have another medication with the same name that you need to continue taking as instructed. Follow-up: Alfonzo Spears MD [address] [facility] Mail Code Wo10 [facility] [id number] Follow up Please call to schedule hospital follow-up Cornelio Hernandez MD [address] [facility] [facility] [phone] Jerome Velasquez MD [address] [place] [phone] Follow up in 6 week(s) Please call to schedule hospital follow-up documented in this encounter [facility] 04-30-2022 History of Present illness Narrative EP CONSULT SIGN OFF Seen by our team for management of atypical atrial flutter. Amiodarone initiated and successful DCCV performed on 04/29/22. Patient will follow-up with Dr. Velasquez as an outpatient in 6-8 weeks. Continue anticoagulation. Thank you for allowing us to participate in the care of Alba Flores. Our consult team will sign off today, 04/30/22. For our full impression and recommendations, please refer to our most recent consult/progress note. If you have any further questions regarding the care of this patient, please do not hesitate to reach out to our team. Daniel Strong MD Fellow, Clinical Cardiac Electrophysiology [facility] Medicine Progress Note Patient: Alba Flores, : 1950, Impression / Plan Alba Flores is a 72 y.o. female w PMH a fib with history SVT s/p ablation at [facility], CHF, HTN admitted to OSH 04/26/22 due to chest pain and palpitations. 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 #CECILIA -Continue CPAP #GERD -Continue ppi DVT prophylaxis with apixaban Disposition: admit ross Code status is full code, confirmed w patient Interval History / Subjective Comfortable in bed this am, awaiting CV, no significant concerns relayed Objective Temp: [97 F (36.1 C)-97.9 F (36.6 C)] 97.9 F (36.6 C) Pulse (Heart Rate): [100-119] 109 Resp Rate: [15-30] 20 BP: (101-157)/(52-80) 113/77 O2 Sat (%): [92 %-96 %] 93 % Physical Exam Gen: A, A, NAD ENT: MMM Resp: CTA & P bilat, normal effort Cardio: Irregular rate, normal S1, S2, No BONIFACIO GI: S/NT/ND, NABS Psych: Ox3, appropriate affect and cognition Data Review WBC/Hgb/Hct/Plts: 7.19/13.8/44.1/226 (04/29 540) Na/K+/Phos/Mg/Ca: 141/4.0/--/2.1/9.5 (04/28 1417-04/29 540) Bun/Creat/Cl/CO2/Glucose: 32/1.62/104/26/107 (04/29 540-04/29 1316) Ptt/Pt/Inr: 28.6/16.8/1.4 (04/28 1417) Acute Occupational Therapy Evaluation Prior to Admission AM-PAC Score: PRIOR LEVEL AM-PAC Activity Raw Score: 24 Current AM-PAC score(s): CURRENT AM-PAC Activity Raw Score: 14 Based on the above AM-PAC score(s) and OT clinical judgment, discharge destination recommendation is: Home Barriers to discharge home: Patient needs assistance with functional mobility, Patient needs assistance with ADLs Mobility equipment available at home: 2 wheeled walker, straight cane, manual wheelchair, oxygen ADL equipment available at home: hand held shower hose, grab bars, bedside commode, elevated toilet seat Equipment recommendations for discharge: none Current therapy frequency recommendation(s) in acute: 5 times a week Precautions and Weightbearing Status: Telemetry Patient Safety Communication Prior to Visit: Nursing Subjective: I'm usually completely independent at home. Pain: General Pain Documentation (Adult, OB, Peds) Presence of Pain: denies pain/discomfort Home Setting Residence: House (2 story home-pt stays on 1st floor) Lives With: (Daughter and ybu-dl-cif-able to have 24/7 supervision at hospital discharge) First floor setup: bedroom, tub shower, grab bars Number of stairs to enter home: 4 Number of stairs in home: (full flight to 2nd floor-doesnt access) Stair Railings at Home: interior - present on both sides Mobility Equipment Available: 2 wheeled walker, straight cane, manual wheelchair, oxygen ADL Equipment Available: hand held shower hose, grab bars, bedside commode, elevated toilet seat Home Environment Details: Pt not participating in skilled PT/OT services prior to hospital admit, 2L/min oxygen via [place] prn during the day, 8L/min oxygen via [place] at night time Previous Level of Function Prior level ADL Overview: Independent with all ADLs Dominant Hand: Right Bed Mobility/Transfers: independent Ambulation Skills: needs device Assistive Device: 2 wheeled walker Level of Ambulation: household (and limited community distances) Prior Level of Function Details: Intermittently ambulates with WW as needed, pt denies any falls in the past 3 months, pt is able to push grocery cart when in the grocery store, pt is independent with IADLs (assists with cleaning/cooking), pt also babysits her 2yo and 4 y.o great grand children IADL History IADLs: independent Objective/Observation: Vitals/Vitals Responses to Treatment: Pt supine in bed upon arrival to room Vitals HR (bpm) BP (mmHg) SpO2 (%) 111 113/77 (97) 93% O2 on 2L Pt's HR in 130s with activity and mobility deferred until cardioversion. Pt left seated in chair with call light/needs in reach. and RN aware Respiratory Status O2 Device: nasal cannula Flow (L/min): 2 Vision Screen Currently wearing corrective lenses: Progressive lenses Hearing Hearing: no gross deficits noted Cognition Overall Cognitive Status: Within Functional Limits ADLs: ADL Anticipated Performance (ADLs not directly observed this session): Eating, Grooming, Bathing, UE Dressing Eating Assistance: Independent Grooming Assistance: Stand by Bathing Assistance: Moderate UE Dressing Assistance: Set up supervision LE Dressing Assistance: Total LE Dressing Location: edge of bed LE Dressing Intervention/Details: Pt unable to utilize modified firugre 4 method that she typically uses at home due to bed height, requiring totalA from therapist. Toilet Assistance: Total Toileting Location: bedside commode Toileting Intervention/Details: Pt requested assistance to clean cindy area/buttocks due to utilizing body ana at home at baseline. Extremity Assessments: RUE Assessment RUE Assessment: Within Functional Limits LUE Assessment LUE Assessment: Within Functional Limits Balance: Sitting Balance Static Sitting-Level of Assistance: Independent Dynamic Sitting-Level of Assistance: Supervision Standing Balance Static Standing-Level of Assistance: Stand-by assist Dynamic Standing-Level of Assistance: Contact guard Neuro: Sensation Overall Sensation: Impaired Sensation Comments: Endorses tingling in right hand greater than left hand (1st to 4th digits), also endorses paresthesias in toes Mobility Assessment: Supine to Sit Mobility [place] Level: Supine->Sit: modified independence Bed Features/Set-up: Supine->Sit: Head of bed elevated Transfer Assessment: Sit to Stand Transfer Canadian Level: Sit->Stand: stand-by assist Skilled Rationale: Facilitate anterior shift, Full extension to upright positioning/posture Stand to Sit Transfer Canadian Level: Stand->Sit: stand-by assist Assistive Device: Stand->Sit: armed chair Skilled Rationale: Hand placement, Verbal cues, Controlled descent for sitting, Technique of activity Bed-Chair Transfer Canadian Level: Bed<->Chair: stand-by assist Skilled Rationale: Facilitate anterior shift, Full extension to upright positioning/posture Toilet Transfer Canadian Level: Toilet: stand-by assist Skilled Rationale: Facilitate anterior shift, Full extension to upright positioning/posture Functional Mobility: Functional Mobility Skilled Intervention/Details - Functional Mobility/Gait: Deferred due to elevated HR in 130s transferring to [facility]. Outcome Score(s): CURRENT [facility] Daily Activity Inpatient Short Form Putting on/Taking Off Lower Body Clothin - Total Assistance Bathin - A Lot of Assistance Toiletin - Total Assistance Putting on/Taking Off Upper Body Clothin - A Little Assistance Groomin - A Little Assistance Eatin - No Assistance CURRENT [facility] Activity Raw Score: 14 CURRENT [facility] Activity Functional Limitation/Modifier: 59.67% Currently Impaired in Daily Activity - CK Assessment & Plan: Patient was admitted for chest pain/heart palpitations and seen for therapy evaluation related to deficits in self-care tasks and mobility due to SLAUGHTER and generalized weakness. Exam findings include impairments in: balance, edema, endurance, ergonomics and body mechanics, transfers, strength. These impairments contribute to occupational performance limitations including bathing, dressing, toileting, functional mobility, ADL transfers, body mechanics. The following factors impact the plan of care: CHF (EF 34%), HTN, and COPD Patient will benefit from skilled occupational therapy to address these impairments, occupational performance limitations, and participation restrictions. Patient's rehab potential is: good, to achieve stated therapy goals. Planned Therapy Interventions (OT Eval): ADL retraining, balance training, strengthening, transfer training, functional activity tolerance (fall prevention) Patient Instruction/Education this session: Patient Instruction: OT role and POC Plan for next session: (Standing ADLs) Acute OT Goals Plan of Care by Tika Mccartney OT at 04/29/2022 1:32 PM Version 1 of 1 Problem: OT - Dressing Goal: Lower Body Dressing Description: Pt will complete LE dressing tasks with modified independence for improved ability to complete self-care activities. Outcome: Ongoing Problem: OT - ADLs Goal: Toileting Description: Pt will complete toileting task including clothing management with modified independence for improved ability to safely complete self-care activities. Outcome: Ongoing Problem: OT - Balance Goal: Balance - Standing Description: Pt will perform 5 minutes of functional ADL task in standing with modified independence and good balance to promote safety and improved balance required for self-care activities. Outcome: Ongoing Problem: OT - Endurance Goal: Endurance Functional Mobility to Bathroom Description: Pt will demonstrate safe functional mobility to/from restroom with modified independence and wheeled walker to access standard commode for improved ability to safely complete toileting. Outcome: Ongoing Problem: OT - Transfers Goal: Transfers Toilet/Bedside Commode Description: Pt will transfer to/from toilet/BSC with modified independence for improved ability to safely complete ADLs. Outcome: Ongoing Problem: OT - Other Goal: Energy Conservation Task Recall Description: Pt will independently recall 2 energy conservation principles to increase functional activity tolerance during ADLs, IADLs, and mobility tasks. Outcome: Ongoing Evaluating Therapist: Tika Mccartney OT Additional Details: Co-evaluation/co-treatment performed?: Yes, simultaneous billable skilled care This co-treatment session performed between OT and PT was beneficial, necessary and provided distinct services in progressing this person's individual plan of care. Medical complexity with functional deficits that necessitate two skilled therapy disciplines working concurrently to optimize patient's progress towards each discipline's goals. This co-treatment was medically necessary due to patient's: expedited discharge recs . Patient benefits from simultaneous treatment from another therapy discipline to maximize progress towards the following Occupational Therapy goals. I used facemask, protective eye shield, and gloves in today's patient interaction. OT Evaluation Complexity Occupational Profile and Client History: Low - brief history Assessment of Occupational Performance: Low (1-3 performance deficits) Clinical Decision/Performance Deficits: Low (problem-focused assessments w/limited treatment options) Time In: 1150 Time Out: 1212 Total Visit Time: 22 minutes Total Treatment Time (skilled, billable minutes): 22 minutes Patient location at end of session: chair Alarms on at end of session: none and RN aware Needs in reach. Upon discontinuation of Acute Care Occupational Therapy Services or patient discharge from the hospital this note represents the current Occupational Therapy Discharge Summary. Acute Physical Therapy Evaluation Prior to Admission AMPA score(s): PRIOR LEVEL AM-PAC Mobility Raw Score: 24 Current AM-PAC score(s): CURRENT AM-PAC Mobility Raw Score: 18 Based on the above AM-PAC score(s) and PT clinical judgment, patient is a good candidate for discharge to Home with Home Health Barriers to discharge home: Patient needs assistance with functional mobility Mobility equipment available at home: 2 wheeled walker, straight cane, manual wheelchair, oxygen ADL equipment available at home: hand held shower hose, grab bars, bedside commode, elevated toilet seat Equipment needed for discharge: none (pt owns WW) Current therapy frequency recommendation in acute: Therapy Frequency: 4 times a week Precautions and Weightbearing Status: Existing Precautions/Restrictions: cardiac, fall, supplemental oxygen Patient Safety Communication Prior to Visit: Nursing Subjective: I was afraid to get up yesterday because my heart rate was in the 200s Pain: General Pain Documentation (Adult, OB, Peds) Presence of Pain: denies pain/discomfort Home Setting Residence: House (2 story home-pt stays on 1st floor) Lives With: (Daughter and nvb-li-ygp-able to have 24/7 supervision at hospital discharge) First floor setup: bedroom, tub shower, grab bars Number of stairs to enter home: 4 Number of stairs in home: (full flight to 2nd floor-doesnt access) Stair Railings at Home: interior - present on both sides Mobility Equipment Available: 2 wheeled walker, straight cane, manual wheelchair, oxygen ADL Equipment Available: hand held shower hose, grab bars, bedside commode, elevated toilet seat Home Environment Details: Pt not participating in skilled PT/OT services prior to hospital admit, 2L/min oxygen via NC prn during the day, 8L/min oxygen via NC at night time Previous Level of Function Prior level ADL Overview: Independent with all ADLs Dominant Hand: Right Bed Mobility/Transfers: independent Ambulation Skills: needs device Assistive Device: 2 wheeled walker Level of Ambulation: household (and limited community distances) Prior Level of Function Details: Intermittently ambulates with WW as needed, pt denies any falls in the past 3 months, pt is able to push grocery cart when in the grocery store, pt is independent with IADLs (assists with cleaning/cooking), pt also babysits her 2yo and 4 y.o great grand children Objective/Observation: Vitals/Vitals Responses to Treatment: Vitals HR (bpm) Bp (mmHg) SpO2 (%) Beginning of session 116 bpm 113/77 mmHg (MAP: 69) - End of session 122 bpm - - Heart rate: 130-135 bpm with stand-pivot transfers Respiratory Status O2 Device: nasal cannula Flow (L/min): 2 Cognition Overall Cognitive Status: Within Functional Limits Arousal/Alertness: Appropriate responses to stimuli Orientation Level: Oriented X4 Following Commands: Follows all commands and directions without difficulty Cognition Comments: Pleasant, agreeable, motivated, mildly impulsive Vision Screen Currently wearing corrective lenses: Progressive lenses Speech Speech: no gross deficits noted Hearing Hearing: hard of hearing Extremity Assessments: RLE Assessment RLE Assessment: AROM WFL Right LE Assessment Details: grossly 4/5 LLE Assessment LLE Assessment: AROM WFL Left LE Assessment Details: grossly 4/5 (later reports pmh of left knee buckling and locking with gait) Sensation Sensation Comments: Endorses tingling in right hand greater than left hand (1st to 4th digits), also endorses paresthesias in toes Edema Edema: present Location: left hand Mobility Assessment: Supine to Sit Mobility Canadian Level: Supine->Sit: stand-by assist Bed Features/Set-up: Supine->Sit: Head of bed elevated, Use of bed rail Skilled Rationale: Sequencing, Hand placement Skilled Intervention/Details: Supine->Sit: Cues for LE progression over EOB Balance: Sitting Balance Static Sitting-Level of Assistance: Supervision Dynamic Sitting-Level of Assistance: Supervision Skilled Rationale: Verbal cues, Tactile cues, Full extension to upright positioning/posture Standing Balance Static Standing-Level of Assistance: Contact guard Dynamic Standing-Level of Assistance: Contact guard Standing-Balance Support: Gait belt, Right hand held assist Skilled Rationale: Verbal cues, Hand placement Transfer Assessment: Sit to Stand Transfer Canadian Level: Sit->Stand: contact guard assist Skilled Rationale: Verbal cues, Hand placement Skilled Intervention/Details: Sit->Stand: x1 from the bed, x1 from BSC Stand to Sit Transfer Canadian Level: Stand->Sit: contact guard assist Skilled Rationale: Hand placement, Verbal cues Skilled Intervention/Details: Stand->Sit: x1 to the BSC , x1 to the chair Bed-Chair Transfer Canadian Level: Bed<->Chair: contact guard assist Assistive Device: Bed<->Chair: armed chair, hand held assist Skilled Rationale: Hand placement, Verbal cues Skilled Intervention/Details: Bed<->Chair: x1 bed to BSC, x1 BSC to chair, instruction for safe technique. Heart rate: 130 to 135 bpm throughout transfers Gait/Functional Mobility: Gait Assessment Skilled Intervention/Details - Gait: Deferred gait due to increased heart rate: (130-13 bpm) Outcome Score(s): CURRENT [facility] Basic Mobility Inpatient Short Form Turning over in bed: 4 - No Assistance Sitting/standing from chair: 3 - A Little Assistance Moving from lying on back to sittin - A Little Assistance Moving to and from bed to chair: 3 - A Little Assistance Walk in hospital room: 3 - A Little Assistance Climbing 3-5 steps with a railin - A Lot of Assistance CURRENT [facility] Mobility Raw Score: 18 CURRENT [facility] Mobility Functional Limitation/Modifier: 46.58% Currently Impaired in Basic Mobility - CK Assessment & Plan: Patient was admitted for chest pain, palpitations and SVT and seen for therapy evaluation related to mild balance impairment, SLAUGHTER, decreased endurance and functional weakness affecting mobility. Exam findings include impairments in: Strength, Balance, Posture, Transfers, Gait/Locomotion, Aerobic capacity/endurance, Ventilation and respiration/gas exchange. These impairments contribute to functional limitations including Decreased ambulation distance/endurance, Ambulation/locomotion pain, Difficulty stair climbing/descent, Increased fall risk, Limited standing tolerance, Limited sitting tolerance, Difficulty with bed mobility, Difficulty with transfers, Decreased functional mobility. Current clinical presentation is Evolving - changing/inconsistent clinical characteristics (Moderate). Patient history factors impacting Plan Of Care include . Patient will benefit from skilled physical therapy to address these impairments, functional limitations, and participation restrictions and has good rehab potential to achieve therapy goals. Planned Therapy Interventions: balance training, bed mobility training, endurance, functional activity tolerance, gait training, neuromuscular re-education, postural re-education, strengthening, transfer training Patient Instruction/Education this session: Educated pt on safe transfer technique, encouraged pt to sit in the chair at least 3x/day with assist form nursing staff Plan for next session: Progress gait distance, initaite stair negotiation Acute PT Goals Plan of Care by Eva Hanson PT at 04/29/2022 11:51 AM Version 1 of 1 Problem: PT - Mobility Goal: Ambulation Description: Pt will ambulate 150 feet with least restrictive device with modified independence to improve ability to navigate home environment. Outcome: Ongoing Goal: Stairs Description: Pt will ascend/[id number] 4 stairs with hand railings with supervision with out an assistive device to improve ability to perform functional mobility necessary in recommended discharge environment. Outcome: Ongoing Problem: PT - Transfers Goal: Supine <-> Sit Description: Pt will perform bed mobility with flat bed & no rail with independence in order to improve functional mobility and safety. Outcome: Ongoing Goal: Sit <-> Stand Description: Pt will perform sit to/from stand transfers with modified independence with least restrictive device in order to improve functional mobility and safety. Outcome: Ongoing Goal: Strength/ROM Description: Pt will perform 2 sets of 15 repetitions of lower bilateral extremity exercises with independence in order to improve strength, maintain ROM, necessary for functional mobility. Outcome: Ongoing Evaluating Therapist: Eva Hanson PT Additional Details: Co-evaluation/co-treatment performed?: Yes, simultaneous billable skilled care This co-evaluation session performed between PT and OT was beneficial, necessary and provided distinct services in establishing this person's individual plan of care. Medical complexity with functional deficits necessitated two skilled therapy disciplines working concurrently to determine each discipline's goals. This co-treatment was medically necessary due to patient's: medical instability (heart rate: 130-135 bpm with limited activity) I used gloves and facemask in today's patient interaction. Evaluation Complexity Components History: Moderate (1-2 personal factors and/or comorbidities) Body Systems Review: Moderate (Addressing a total of 3 or more elements) Clinical Presentation: Evolving - changing/inconsistent clinical characteristics (Moderate) Clinical Decision Making: Moderate Time In: 1151 Time Out: 1211 Total Visit Time: 20 minutes Total Treatment Time (skilled, billable minutes): 20 minutes Patient location at end of session: chair Alarms on at end of session: none Needs in reach. Upon discontinuation of Acute Care Physical Therapy Services or patient discharge from the hospital this note represents the current Physical Therapy Discharge Summary. Focused Assessment for Discharge Planning Patient is here for chest pain and palpitations. Initial Discharge Planning Anticipated discharge disposition: Home Transportation Available for Discharge: Family or Friend, Private Vehicle Anticipated DME: none Anticipated Services at Discharge: Outpatient follow up Patient Assessment Completed: Focused Advanced Care Planning Assessment Advanced Care Planning Has the patient completed Advance Directives?: Completed, Not Available in Medical Record Copy of Advance Directives was requested?: Yes Advance Directives Requested From: patient HCPOA Agent(s): not on file Legal Next of Kin: 1. Jessica Flores daughter [phone] 2. Del Flores son [phone] 3. Viri Carroll daughter [phone] 4. Daniel Flores son [phone] 5. Cornelio Flores son [phone] Financial Resources Insurance: Yes Prescription Coverage: Yes Resources Needed: No Resources Provided: N/A Living Environment and Support System Patient resides with her daughter Jessica and boyfriend in a 2 story house (patient remains on 1st floor). Patient Resources Prior to Admission Post-acute Services: yes - [facility] Medicaid Community Plan Home Health/ Nursing and DATA ENTRY ANALYST Monday and Monday 2 hours Community Resources: yes - Manager House [facility] DME: yes - walker, cane, elevated toilet seat, grab bars, shower chair, cpap and O2 2 L continuous and 8 L @ PM/dasco PCP Semaj Skip Tender Mary Newman Anticoagulation apixaban Patient's goal for discharge is home with outpatient follow up. Danielle MAJANOW Clinical Manager House [facility] documented in this encounter [facility] 01-14-2023 History of Present illness Narrative EP CONSULT SIGN OFF Seen by our team for management of atypical atrial flutter. Amiodarone initiated and successful DCCV performed on 04/29/22. Patient will follow-up with Dr. Velasquez as an outpatient in 6-8 weeks. Continue anticoagulation. Thank you for allowing us to participate in the care of Alba Flores. Our consult team will sign off today, 04/30/22. For our full impression and recommendations, please refer to our most recent consult/progress note. If you have any further questions regarding the care of this patient, please do not hesitate to reach out to our team. Daniel Strong MD Fellow, Clinical Cardiac Electrophysiology Hospital Medicine Progress Note Patient: Alba Flores, : 1950, Impression / Plan Alba Flores is a 72 y.o. female w PMH a fib with history SVT s/p ablation at [facility], CHF, HTN admitted to [facility]SH 04/26/22 due to chest pain and palpitations. 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 #CECILIA -Continue CPAP #GERD -Continue ppi DVT prophylaxis with apixaban Disposition: admit ross Code status is full code, confirmed w patient Interval History / Subjective Comfortable in bed this am, awaiting CV, no significant concerns relayed Objective Temp: [97 F (36.1 C)-97.9 F (36.6 C)] 97.9 F (36.6 C) Pulse (Heart Rate): [100-119] 109 Resp Rate: [15-30] 20 BP: (101-157)/(52-80) 113/77 O2 Sat (%): [92 %-96 %] 93 % Physical Exam Gen: A, A, NAD ENT: MMM Resp: CTA & P bilat, normal effort Cardio: Irregular rate, normal S1, S2, No BONIFACIO GI: S/NT/ND, NABS Psych: Ox3, appropriate affect and cognition Data Review WBC/Hgb/Hct/Plts: 7.19/13.8/44.1/226 (04/29 540) Na/K+/Phos/Mg/Ca: 141/4.0/--/2.1/9.5 (04/28 1417-04/29 540) Bun/Creat/Cl/CO2/Glucose: 32/1.62/104/26/107 (04/29 540-04/29 1316) Ptt/Pt/Inr: 28.6/16.8/1.4 (04/28 1417) Acute Occupational Therapy Evaluation Prior to Admission AM-PAC Score: PRIOR LEVEL AM-PAC Activity Raw Score: 24 Current AM-PAC score(s): CURRENT AM-PAC Activity Raw Score: 14 Based on the above AM-PAC score(s) and OT clinical judgment, discharge destination recommendation is: Home Barriers to discharge home: Patient needs assistance with functional mobility, Patient needs assistance with ADLs Mobility equipment available at home: 2 wheeled walker, straight cane, manual wheelchair, oxygen ADL equipment available at home: hand held shower hose, grab bars, bedside commode, elevated toilet seat Equipment recommendations for discharge: none Current therapy frequency recommendation(s) in acute: 5 times a week Precautions and Weightbearing Status: Telemetry Patient Safety Communication Prior to Visit: Nursing Subjective: I'm usually completely independent at home. Pain: General Pain Documentation (Adult, OB, Peds) Presence of Pain: denies pain/discomfort Home Setting Residence: House (2 story home-pt stays on 1st floor) Lives With: (Daughter and alv-im-hps-able to have 24/7 supervision at hospital discharge) First floor setup: bedroom, tub shower, grab bars Number of stairs to enter home: 4 Number of stairs in home: (full flight to 2nd floor-doesnt access) Stair Railings at Home: interior - present on both sides Mobility Equipment Available: 2 wheeled walker, straight cane, manual wheelchair, oxygen ADL Equipment Available: hand held shower hose, grab bars, bedside commode, elevated toilet seat Home Environment Details: Pt not participating in skilled PT/OT services prior to hospital admit, 2L/min oxygen via NC prn during the day, 8L/min oxygen via NC at night time Previous Level of Function Prior level ADL Overview: Independent with all ADLs Dominant Hand: Right Bed Mobility/Transfers: independent Ambulation Skills: needs device Assistive Device: 2 wheeled walker Level of Ambulation: household (and limited community distances) Prior Level of Function Details: Intermittently ambulates with WW as needed, pt denies any falls in the past 3 months, pt is able to push grocery cart when in the grocery store, pt is independent with IADLs (assists with cleaning/cooking), pt also babysits her 2yo and 4 y.o great grand children IADL History IADLs: independent Objective/Observation: Vitals/Vitals Responses to Treatment: Pt supine in bed upon arrival to room Vitals HR (bpm) BP (mmHg) SpO2 (%) 111 113/77 (97) 93% O2 on 2L Pt's HR in 130s with activity and mobility deferred until cardioversion. Pt left seated in chair with call light/needs in reach. and RN aware Respiratory Status O2 Device: nasal cannula Flow (L/min): 2 Vision Screen Currently wearing corrective lenses: Progressive lenses Hearing Hearing: no gross deficits noted Cognition Overall Cognitive Status: Within Functional Limits ADLs: ADL Anticipated Performance (ADLs not directly observed this session): Eating, Grooming, Bathing, UE Dressing Eating Assistance: Independent Grooming Assistance: Stand by Bathing Assistance: Moderate UE Dressing Assistance: Set up supervision LE Dressing Assistance: Total LE Dressing Location: edge of bed LE Dressing Intervention/Details: Pt unable to utilize modified firugre 4 method that she typically uses at home due to bed height, requiring totalA from therapist. Toilet Assistance: Total Toileting Location: bedside commode Toileting Intervention/Details: Pt requested assistance to clean cindy area/buttocks due to utilizing body ana at home at baseline. Extremity Assessments: RUE Assessment RUE Assessment: Within Functional Limits LUE Assessment LUE Assessment: Within Functional Limits Balance: Sitting Balance Static Sitting-Level of Assistance: Independent Dynamic Sitting-Level of Assistance: Supervision Standing Balance Static Standing-Level of Assistance: Stand-by assist Dynamic Standing-Level of Assistance: Contact guard Neuro: Sensation Overall Sensation: Impaired Sensation Comments: Endorses tingling in right hand greater than left hand (1st to 4th digits), also endorses paresthesias in toes Mobility Assessment: Supine to Sit Mobility Canadian Level: Supine->Sit: modified independence Bed Features/Set-up: Supine->Sit: Head of bed elevated Transfer Assessment: Sit to Stand Transfer Canadian Level: Sit->Stand: stand-by assist Skilled Rationale: Facilitate anterior shift, Full extension to upright positioning/posture Stand to Sit Transfer Canadian Level: Stand->Sit: stand-by assist Assistive Device: Stand->Sit: armed chair Skilled Rationale: Hand placement, Verbal cues, Controlled descent for sitting, Technique of activity Bed-Chair Transfer Canadian Level: Bed<->Chair: stand-by assist Skilled Rationale: Facilitate anterior shift, Full extension to upright positioning/posture Toilet Transfer Canadian Level: Toilet: stand-by assist Skilled Rationale: Facilitate anterior shift, Full extension to upright positioning/posture Functional Mobility: Functional Mobility Skilled Intervention/Details - Functional Mobility/Gait: Deferred due to elevated HR in 130s transferring to [facility]. Outcome Score(s): CURRENT [facility] Daily Activity Inpatient Short Form Putting on/Taking Off Lower Body Clothin - Total Assistance Bathin - A Lot of Assistance Toiletin - Total Assistance Putting on/Taking Off Upper Body Clothin - A Little Assistance Groomin - A Little Assistance Eatin - No Assistance CURRENT [facility] Activity Raw Score: 14 CURRENT [facility] Activity Functional Limitation/Modifier: 59.67% Currently Impaired in Daily Activity - CK Assessment & Plan: Patient was admitted for chest pain/heart palpitations and seen for therapy evaluation related to deficits in self-care tasks and mobility due to SLAUGHTER and generalized weakness. Exam findings include impairments in: balance, edema, endurance, ergonomics and body mechanics, transfers, strength. These impairments contribute to occupational performance limitations including bathing, dressing, toileting, functional mobility, ADL transfers, body mechanics. The following factors impact the plan of care: CHF (EF 34%), HTN, and COPD Patient will benefit from skilled occupational therapy to address these impairments, occupational performance limitations, and participation restrictions. Patient's rehab potential is: good, to achieve stated therapy goals. Planned Therapy Interventions (OT Eval): ADL retraining, balance training, strengthening, transfer training, functional activity tolerance (fall prevention) Patient Instruction/Education this session: Patient Instruction: OT role and POC Plan for next session: (Standing ADLs) Acute OT Goals Plan of Care by Tika Mccartney OT at 04/29/2022 1:32 PM Version 1 of 1 Problem: OT - Dressing Goal: Lower Body Dressing Description: Pt will complete LE dressing tasks with modified independence for improved ability to complete self-care activities. Outcome: Ongoing Problem: OT - ADLs Goal: Toileting Description: Pt will complete toileting task including clothing management with modified independence for improved ability to safely complete self-care activities. Outcome: Ongoing Problem: OT - Balance Goal: Balance - Standing Description: Pt will perform 5 minutes of functional ADL task in standing with modified independence and good balance to promote safety and improved balance required for self-care activities. Outcome: Ongoing Problem: OT - Endurance Goal: Endurance Functional Mobility to Bathroom Description: Pt will demonstrate safe functional mobility to/from restroom with modified independence and wheeled walker to access standard commode for improved ability to safely complete toileting. Outcome: Ongoing Problem: OT - Transfers Goal: Transfers Toilet/Bedside Commode Description: Pt will transfer to/from toilet/BSC with modified independence for improved ability to safely complete ADLs. Outcome: Ongoing Problem: OT - Other Goal: Energy Conservation Task Recall Description: Pt will independently recall 2 energy conservation principles to increase functional activity tolerance during ADLs, IADLs, and mobility tasks. Outcome: Ongoing Evaluating Therapist: Tika Mccartney OT Additional Details: Co-evaluation/co-treatment performed?: Yes, simultaneous billable skilled care This co-treatment session performed between OT and PT was beneficial, necessary and provided distinct services in progressing this person's individual plan of care. Medical complexity with functional deficits that necessitate two skilled therapy disciplines working concurrently to optimize patient's progress towards each discipline's goals. This co-treatment was medically necessary due to patient's: expedited discharge recs . Patient benefits from simultaneous treatment from another therapy discipline to maximize progress towards the following Occupational Therapy goals. I used facemask, protective eye shield, and gloves in today's patient interaction. OT Evaluation Complexity Occupational Profile and Client History: Low - brief history Assessment of Occupational Performance: Low (1-3 performance deficits) Clinical Decision/Performance Deficits: Low (problem-focused assessments w/limited treatment options) Time In: 1150 Time Out: 1212 Total Visit Time: 22 minutes Total Treatment Time (skilled, billable minutes): 22 minutes Patient location at end of session: chair Alarms on at end of session: none and RN aware Needs in reach. Upon discontinuation of Acute Care Occupational Therapy Services or patient discharge from the hospital this note represents the current Occupational Therapy Discharge Summary. Acute Physical Therapy Evaluation Prior to Admission AMPAC score(s): PRIOR LEVEL AM-PAC Mobility Raw Score: 24 Current AM-PAC score(s): CURRENT AM-PAC Mobility Raw Score: 18 Based on the above AM-PAC score(s) and PT clinical judgment, patient is a good candidate for discharge to Home with Home Health Barriers to discharge home: Patient needs assistance with functional mobility Mobility equipment available at home: 2 wheeled walker, straight cane, manual wheelchair, oxygen ADL equipment available at home: hand held shower hose, grab bars, bedside commode, elevated toilet seat Equipment needed for discharge: none (pt owns WW) Current therapy frequency recommendation in acute: Therapy Frequency: 4 times a week Precautions and Weightbearing Status: Existing Precautions/Restrictions: cardiac, fall, supplemental oxygen Patient Safety Communication Prior to Visit: Nursing Subjective: I was afraid to get up yesterday because my heart rate was in the 200s Pain: General Pain Documentation (Adult, OB, Peds) Presence of Pain: denies pain/discomfort Home Setting Residence: House (2 story home-pt stays on 1st floor) Lives With: (Daughter and [id number]-able to have 24/7 supervision at hospital discharge) First floor setup: bedroom, tub shower, grab bars Number of stairs to enter home: 4 Number of stairs in home: (full flight to 2nd floor-doesnt access) Stair Railings at Home: interior - present on both sides Mobility Equipment Available: 2 wheeled walker, straight cane, manual wheelchair, oxygen ADL Equipment Available: hand held shower hose, grab bars, bedside commode, elevated toilet seat Home Environment Details: Pt not participating in skilled PT/OT services prior to hospital admit, 2L/min oxygen via NC prn during the day, 8L/min oxygen via NC at night time Previous Level of Function Prior level ADL Overview: Independent with all ADLs Dominant Hand: Right Bed Mobility/Transfers: independent Ambulation Skills: needs device Assistive Device: 2 wheeled walker Level of Ambulation: household (and limited community distances) Prior Level of Function Details: Intermittently ambulates with WW as needed, pt denies any falls in the past 3 months, pt is able to push grocery cart when in the grocery store, pt is independent with IADLs (assists with cleaning/cooking), pt also babysits her 2yo and 4 y.o great grand children Objective/Observation: Vitals/Vitals Responses to Treatment: Vitals HR (bpm) Bp (mmHg) SpO2 (%) Beginning of session 116 bpm 113/77 mmHg (MAP: 69) - End of session 122 bpm - - Heart rate: 130-135 bpm with stand-pivot transfers Respiratory Status O2 Device: nasal cannula Flow (L/min): 2 Cognition Overall Cognitive Status: Within Functional Limits Arousal/Alertness: Appropriate responses to stimuli Orientation Level: Oriented X4 Following Commands: Follows all commands and directions without difficulty Cognition Comments: Pleasant, agreeable, motivated, mildly impulsive Vision Screen Currently wearing corrective lenses: Progressive lenses Speech Speech: no gross deficits noted Hearing Hearing: hard of hearing Extremity Assessments: RLE Assessment RLE Assessment: AROM WFL Right LE Assessment Details: grossly 4/5 LLE Assessment LLE Assessment: AROM WFL Left LE Assessment Details: grossly 4/5 (later reports pmh of left knee buckling and locking with gait) Sensation Sensation Comments: Endorses tingling in right hand greater than left hand (1st to 4th digits), also endorses paresthesias in toes Edema Edema: present Location: left hand Mobility Assessment: Supine to Sit Mobility Canadian Level: Supine->Sit: stand-by assist Bed Features/Set-up: Supine->Sit: Head of bed elevated, Use of bed rail Skilled Rationale: Sequencing, Hand placement Skilled Intervention/Details: Supine->Sit: Cues for LE progression over EOB Balance: Sitting Balance Static Sitting-Level of Assistance: Supervision Dynamic Sitting-Level of Assistance: Supervision Skilled Rationale: Verbal cues, Tactile cues, Full extension to upright positioning/posture Standing Balance Static Standing-Level of Assistance: Contact guard Dynamic Standing-Level of Assistance: Contact guard Standing-Balance Support: Gait belt, Right hand held assist Skilled Rationale: Verbal cues, Hand placement Transfer Assessment: Sit to Stand Transfer Canadian Level: Sit->Stand: contact guard assist Skilled Rationale: Verbal cues, Hand placement Skilled Intervention/Details: Sit->Stand: x1 from the bed, x1 from BSC Stand to Sit Transfer Canadian Level: Stand->Sit: contact guard assist Skilled Rationale: Hand placement, Verbal cues Skilled Intervention/Details: Stand->Sit: x1 to the BSC , x1 to the chair Bed-Chair Transfer Canadian Level: Bed<->Chair: contact guard assist Assistive Device: Bed<->Chair: armed chair, hand held assist Skilled Rationale: Hand placement, Verbal cues Skilled Intervention/Details: Bed<->Chair: x1 bed to BSC, x1 BSC to chair, instruction for safe technique. Heart rate: 130 to 135 bpm throughout transfers Gait/Functional Mobility: Gait Assessment Skilled Intervention/Details - Gait: Deferred gait due to increased heart rate: (130-13 bpm) Outcome Score(s): CURRENT [facility] Basic Mobility Inpatient Short Form Turning over in bed: 4 - No Assistance Sitting/standing from chair: 3 - A Little Assistance Moving from lying on back to sittin - A Little Assistance Moving to and from bed to chair: 3 - A Little Assistance Walk in hospital room: 3 - A Little Assistance Climbing 3-5 steps with a railin - A Lot of Assistance CURRENT [facility] Mobility Raw Score: 18 CURRENT [facility] Mobility Functional Limitation/Modifier: 46.58% Currently Impaired in Basic Mobility - CK Assessment & Plan: Patient was admitted for chest pain, palpitations and SVT and seen for therapy evaluation related to mild balance impairment, SLAUGHTER, decreased endurance and functional weakness affecting mobility. Exam findings include impairments in: Strength, Balance, Posture, Transfers, Gait/Locomotion, Aerobic capacity/endurance, Ventilation and respiration/gas exchange. These impairments contribute to functional limitations including Decreased ambulation distance/endurance, Ambulation/locomotion pain, Difficulty stair climbing/descent, Increased fall risk, Limited standing tolerance, Limited sitting tolerance, Difficulty with bed mobility, Difficulty with transfers, Decreased functional mobility. Current clinical presentation is Evolving - changing/inconsistent clinical characteristics (Moderate). Patient history factors impacting Plan Of Care include . Patient will benefit from skilled physical therapy to address these impairments, functional limitations, and participation restrictions and has good rehab potential to achieve therapy goals. Planned Therapy Interventions: balance training, bed mobility training, endurance, functional activity tolerance, gait training, neuromuscular re-education, postural re-education, strengthening, transfer training Patient Instruction/Education this session: Educated pt on safe transfer technique, encouraged pt to sit in the chair at least 3x/day with assist form nursing staff Plan for next session: Progress gait distance, initaite stair negotiation Acute PT Goals Plan of Care by Eva Hanson PT at 04/29/2022 11:51 AM Version 1 of 1 Problem: PT - Mobility Goal: Ambulation Description: Pt will ambulate 150 feet with least restrictive device with modified independence to improve ability to navigate home environment. Outcome: Ongoing Goal: Stairs Description: Pt will ascend/[id number] 4 stairs with hand railings with supervision with out an assistive device to improve ability to perform functional mobility necessary in recommended discharge environment. Outcome: Ongoing Problem: PT - Transfers Goal: Supine <-> Sit Description: Pt will perform bed mobility with flat bed & no rail with independence in order to improve functional mobility and safety. Outcome: Ongoing Goal: Sit <-> Stand Description: Pt will perform sit to/from stand transfers with modified independence with least restrictive device in order to improve functional mobility and safety. Outcome: Ongoing Goal: Strength/ROM Description: Pt will perform 2 sets of 15 repetitions of lower bilateral extremity exercises with independence in order to improve strength, maintain ROM, necessary for functional mobility. Outcome: Ongoing Evaluating Therapist: Eva Hanson PT Additional Details: Co-evaluation/co-treatment performed?: Yes, simultaneous billable skilled care This co-evaluation session performed between PT and OT was beneficial, necessary and provided distinct services in establishing this person's individual plan of care. Medical complexity with functional deficits necessitated two skilled therapy disciplines working concurrently to determine each discipline's goals. This co-treatment was medically necessary due to patient's: medical instability (heart rate: 130-135 bpm with limited activity) I used gloves and facemask in today's patient interaction. Evaluation Complexity Components History: Moderate (1-2 personal factors and/or comorbidities) Body Systems Review: Moderate (Addressing a total of 3 or more elements) Clinical Presentation: Evolving - changing/inconsistent clinical characteristics (Moderate) Clinical Decision Making: Moderate Time In: 1151 Time Out: 1211 Total Visit Time: 20 minutes Total Treatment Time (skilled, billable minutes): 20 minutes Patient location at end of session: chair Alarms on at end of session: none Needs in reach. Upon discontinuation of Acute Care Physical Therapy Services or patient discharge from the hospital this note represents the current Physical Therapy Discharge Summary. Focused Assessment for Discharge Planning Patient is here for chest pain and palpitations. Initial Discharge Planning Anticipated discharge disposition: Home Transportation Available for Discharge: Family or Friend, Private Vehicle Anticipated DME: none Anticipated Services at Discharge: Outpatient follow up Patient Assessment Completed: Focused Advanced Care Planning Assessment Advanced Care Planning Has the patient completed Advance Directives?: Completed, Not Available in Medical Record Copy of Advance Directives was requested?: Yes Advance Directives Requested From: patient HCPOA Agent(s): not on file Legal Next of Kin: 1. Jessica Flores daughter [phone] 2. Del Flores son [phone] 3. Viri Carroll daughter [phone] 4. Dnaiel Flores son [phone] 5. Cornelio Flores son [phone] Financial Resources Insurance: Yes Prescription Coverage: Yes Resources Needed: No Resources Provided: N/A Living Environment and Support System Patient resides with her daughter Jessica and boyfriend in a 2 story house (patient remains on 1st floor). Patient Resources Prior to Admission Post-acute Services: yes - [facility] Medicaid Community Plan Home Health/ Nursing and DATA ENTRY ANALYST Monday and Monday 2 hours Community Resources: yes - Manager House [facility] DME: yes - walker, cane, elevated toilet seat, grab bars, shower chair, cpap and O2 2 L continuous and 8 L @ PM/dasco PCP Semaj Skip Tender Mary Newman Anticoagulation apixaban Patient's goal for discharge is home with outpatient follow up. Danielle SPANGLER TAKE AW[employer] MAN Clinical Manager House [facility] documented in this encounter [facility] 04-30-2022 Note Formatting of this n ote might be different from the original. CP 5/10 mid sternal soreness non radiating. EKG done. Vitals done. Pt is belching, + active flatus. Denies nausea/diaphoretic. She thinks this could be GI/gas related? Requested an antiacid med. Post cardio version today from [facility]. Still in SR HR 70s. @0230 calcium tab ordered, pt states the pain is only intermittent. Continue to monitor. [facility] 04-30-2022 Note Formatting of this n ote might be different from the original. CP 5/10 mid sternal soreness non radiating. EKG done. Vitals done. Pt is belching, + active flatus. Denies nausea/diaphoretic. She thinks this could be GI/gas related? Requested an antiacid med. Post cardio version today from [facility]. Still in SR HR 70s. @0230 calcium tab ordered, pt states the pain is only intermittent. Continue to monitor. [facility] 04-29-2022 Note Formatting of this n ote is different from the original. Problem: Patient Care Overview Goal: Plan of Care Review Outcome: Ongoing Plan of care reviewed: Vital signs will be obtained at least every 4 hrs, will be monitoring intake & output every 8 hrs, assessing pain every 4 hrs & medicate prn, hourly rounding, updated re: quiet @ night hospital initiative, am labs to be obtained & EKG prn. Problem: Arrhythmia/Dysrhythmia (Symptomatic) (Adult) Goal: Signs and Symptoms of Listed Potential Problems Will be Absent, Minimized or Managed (Arrhythmia/Dysrhythmia) Description: Signs and symptoms of listed potential problems will be absent, minimized or managed by discharge/transition of care (reference Arrhythmia/Dysrhythmia (Symptomatic) (Adult) CPG). Outcome: Ongoing Continuous cardiac monitoring as ordered. ECG s obtained per protocol. Electrolytes replaced with prn orders when appropriate. Antiarrhythmic given as scheduled. [facility] 04-29-2022 Note Formatting of this n ote is different from the original. Problem: Patient Care Overview Goal: Plan of Care Review Outcome: Ongoing Plan of care reviewed: Vital signs will be obtained at least every 4 hrs, will be monitoring intake & output every 8 hrs, assessing pain every 4 hrs & medicate prn, hourly rounding, updated re: quiet @ night hospital initiative, am labs to be obtained & EKG prn. Problem: Arrhythmia/Dysrhythmia (Symptomatic) (Adult) Goal: Signs and Symptoms of Listed Potential Problems Will be Absent, Minimized or Managed (Arrhythmia/Dysrhythmia) Description: Signs and symptoms of listed potential problems will be absent, minimized or managed by discharge/transition of care (reference Arrhythmia/Dysrhythmia (Symptomatic) (Adult) CPG). Outcome: Ongoing Continuous cardiac monitoring as ordered. ECG s obtained per protocol. Electrolytes replaced with prn orders when appropriate. Antiarrhythmic given as scheduled. [facility] 04-29-2022 Note Formatting of this n ote might be different from the original. Problem: Patient Care Overview Goal: Plan of Care Review Outcome: Ongoing Goal: Individualization & Mutuality Outcome: Ongoing Problem: Arrhythmia/Dysrhythmia (Symptomatic) (Adult) Goal: Signs and Symptoms of Listed Potential Problems Will be Absent, Minimized or Managed (Arrhythmia/Dysrhythmia) Description: Signs and symptoms of listed potential problems will be absent, minimized or managed by discharge/transition of care (reference Arrhythmia/Dysrhythmia (Symptomatic) (Adult) CPG). Outcome: Ongoing Vital signs completed per protocol. Monitoring intake and output q8h. Assessing pain q4h and medicate prn. Obtaining daily weights. Labs completed per protocol and will report any abnormal values to physician. Plan of care reviewed and updated with patient and patient demonstrates understanding. Patient remains free from injury. Bed in low position and locked. Patient ID band on and verified. Call light in reach and demonstrated use. Nonskid socks worn when out of bed. Fall wheel updated at bedside. Patient encouraged to call for assistance prior to getting out of bed. High fall risk patient not left alone in bathroom. Bed and chair alarms used when appropriate. Of note, patient to EP lab today for cardioversion; EKG completed and uploaded to MUSE showing sinus MD mary discontinued Amiodarone gtts. Will continue to monitor. Shantelle Perez RN 04/29/2022 1848 [facility] 04-29-2022 Note Formatting of this n ote might be different from the original. Problem: Patient Care Overview Goal: Plan of Care Review Outcome: Ongoing Goal: Individualization & Mutuality Outcome: Ongoing Problem: Arrhythmia/Dysrhythmia (Symptomatic) (Adult) Goal: Signs and Symptoms of Listed Potential Problems Will be Absent, Minimized or Managed (Arrhythmia/Dysrhythmia) Description: Signs and symptoms of listed potential problems will be absent, minimized or managed by discharge/transition of care (reference Arrhythmia/Dysrhythmia (Symptomatic) (Adult) CPG). Outcome: Ongoing Vital signs completed per protocol. Monitoring intake and output q8h. Assessing pain q4h and medicate prn. Obtaining daily weights. Labs completed per protocol and will report any abnormal values to physician. Plan of care reviewed and updated with patient and patient demonstrates understanding. Patient remains free from injury. Bed in low position and locked. Patient ID band on and verified. Call light in reach and demonstrated use. Nonskid socks worn when out of bed. Fall wheel updated at bedside. Patient encouraged to call for assistance prior to getting out of bed. High fall risk patient not left alone in bathroom. Bed and chair alarms used when appropriate. Of note, patient to EP lab today for cardioversion; EKG completed and uploaded to MUSE showing sinus MD mary discontinued Amiodarone gtts. Will continue to monitor. Shantelle Perez RN 04/29/20228 [facility] 04-29-2022 Note Formatting of this n ote might be different from the original. April 29, 2022 Cornelio Hernandez MD [address] [facility], [address] [place] [phone] RE: ALBA FLORES DATE OF SERVICE: 04/29/2022 BODY: Dear Cornelio, I had the pleasure of seeing your patient, Mrs. Alba Flores in our electrophysiology lab for her scheduled cardioversion. As you recall, she is a 72-year-old white female with a history of atrial flutter, tachycardia induced cardiomyopathy, status post atrial flutter ablation with improvement of her cardiomyopathy and normalization of her left ventricular function. Left ventricular ejection fraction from 15 up to 55%. The patient was admitted to [facility] with palpitation, was found to have rapid ventricular rate which was noted to be atypical atrial flutter with variable conduction with a heart rate up to 210 beats per minute. She was found to have low left ventricular ejection fraction at 34%. The patient also has a history of obesity. The patient was started on amiodarone load and she has been on Eliquis 5 mg p.o. b.i.d. without interruption over the last 4 weeks. Therefore, she underwent successful synchronized 200 joule biphasic cardioversion with restorationist of sinus rhythm. The patient will continue on amiodarone, as well as Eliquis. She will follow up with you and Dr. Velasquez. Thank you for letting us participate in the management of this patient. If you have questions or concerns please let us know. Sincerely, Suzanne Weiss MD cc: Alfonzo Spears MD [facility] Mail Code [id number] [place] [phone] [facility] Work Phone: 04-29-2022 Note Formatting of this n ote might be different from the original. Problem: OT - Dressing Goal: Lower Body Dressing Description: Pt will complete LE dressing tasks with modified independence for improved ability to complete self-care activities. Outcome: Ongoing Problem: OT - ADLs Goal: Toileting Description: Pt will complete toileting task including clothing management with modified independence for improved ability to safely complete self-care activities. Outcome: Ongoing Problem: OT - Balance Goal: Balance - Standing Description: Pt will perform 5 minutes of functional ADL task in standing with modified independence and good balance to promote safety and improved balance required for self-care activities. Outcome: Ongoing Problem: OT - Endurance Goal: Endurance Functional Mobility to Bathroom Description: Pt will demonstrate safe functional mobility to/from restroom with modified independence and wheeled walker to access standard commode for improved ability to safely complete toileting. Outcome: Ongoing Problem: OT - Transfers Goal: Transfers Toilet/Bedside Commode Description: Pt will transfer to/from toilet/BSC with modified independence for improved ability to safely complete ADLs. Outcome: Ongoing Problem: OT - Other Goal: Energy Conservation Task Recall Description: Pt will independently recall 2 energy conservation principles to increase functional activity tolerance during ADLs, IADLs, and mobility tasks. Outcome: Ongoing [facility] 04-29-2022 Note Formatting of this n ote might be different from the original. Problem: OT - Dressing Goal: Lower Body Dressing Description: Pt will complete LE dressing tasks with modified independence for improved ability to complete self-care activities. Outcome: Ongoing Problem: OT - ADLs Goal: Toileting Description: Pt will complete toileting task including clothing management with modified independence for improved ability to safely complete self-care activities. Outcome: Ongoing Problem: OT - Balance Goal: Balance - Standing Description: Pt will perform 5 minutes of functional ADL task in standing with modified independence and good balance to promote safety and improved balance required for self-care activities. Outcome: Ongoing Problem: OT - Endurance Goal: Endurance Functional Mobility to Bathroom Description: Pt will demonstrate safe functional mobility to/from restroom with modified independence and wheeled walker to access standard commode for improved ability to safely complete toileting. Outcome: Ongoing Problem: OT - Transfers Goal: Transfers Toilet/Bedside Commode Description: Pt will transfer to/from toilet/BSC with modified independence for improved ability to safely complete ADLs. Outcome: Ongoing Problem: OT - Other Goal: Energy Conservation Task Recall Description: Pt will independently recall 2 energy conservation principles to increase functional activity tolerance during ADLs, IADLs, and mobility tasks. Outcome: Ongoing [facility] 04-29-2022 Note Formatting of this n ote might be different from the original. Problem: PT - Mobility Goal: Ambulation Description: Pt will ambulate 150 feet with least restrictive device with modified independence to improve ability to navigate home environment. Outcome: Ongoing Goal: Stairs Description: Pt will ascend/[id number] 4 stairs with hand railings with supervision with out an assistive device to improve ability to perform functional mobility necessary in recommended discharge environment. Outcome: Ongoing Problem: PT - Transfers Goal: Supine <-> Sit Description: Pt will perform bed mobility with flat bed & no rail with independence in order to improve functional mobility and safety. Outcome: Ongoing Goal: Sit <-> Stand Description: Pt will perform sit to/from stand transfers with modified independence with least restrictive device in order to improve functional mobility and safety. Outcome: Ongoing Goal: Strength/ROM Description: Pt will perform 2 sets of 15 repetitions of lower bilateral extremity exercises with independence in order to improve strength, maintain ROM, necessary for functional mobility. Outcome: Ongoing [facility] 04-29-2022 Note Formatting of this n ote might be different from the original. Problem: PT - Mobility Goal: Ambulation Description: Pt will ambulate 150 feet with least restrictive device with modified independence to improve ability to navigate home environment. Outcome: Ongoing Goal: Stairs Description: Pt will ascend/[id number] 4 stairs with hand railings with supervision with out an assistive device to improve ability to perform functional mobility necessary in recommended discharge environment. Outcome: Ongoing Problem: PT - Transfers Goal: Supine <-> Sit Description: Pt will perform bed mobility with flat bed & no rail with independence in order to improve functional mobility and safety. Outcome: Ongoing Goal: Sit <-> Stand Description: Pt will perform sit to/from stand transfers with modified independence with least restrictive device in order to improve functional mobility and safety. Outcome: Ongoing Goal: Strength/ROM Description: Pt will perform 2 sets of 15 repetitions of lower bilateral extremity exercises with independence in order to improve strength, maintain ROM, necessary for functional mobility. Outcome: Ongoing [facility] 04-29-2022 Note Formatting of this n ote is different from the original. Problem: Patient Care Overview Goal: Plan of Care Review Outcome: Ongoing Plan of care reviewed: Vital signs will be obtained at least every 4 hrs, will be monitoring intake & output every 8 hrs, assessing pain every 4 hrs & medicate prn, hourly rounding, updated re: quiet @ night hospital initiative, am labs to be obtained & EKG prn. Problem: Arrhythmia/Dysrhythmia (Symptomatic) (Adult) Goal: Signs and Symptoms of Listed Potential Problems Will be Absent, Minimized or Managed (Arrhythmia/Dysrhythmia) Description: Signs and symptoms of listed potential problems will be absent, minimized or managed by discharge/transition of care (reference Arrhythmia/Dysrhythmia (Symptomatic) (Adult) CPG). Outcome: Ongoing Continuous cardiac monitoring as ordered. ECG s obtained per protocol. Electrolytes replaced with prn orders when appropriate. Antiarrhythmic given as scheduled. [facility] 04-29-2022 Note Formatting of this n ote is different from the original. Problem: Patient Care Overview Goal: Plan of Care Review Outcome: Ongoing Plan of care reviewed: Vital signs will be obtained at least every 4 hrs, will be monitoring intake & output every 8 hrs, assessing pain every 4 hrs & medicate prn, hourly rounding, updated re: quiet @ night hospital initiative, am labs to be obtained & EKG prn. Problem: Arrhythmia/Dysrhythmia (Symptomatic) (Adult) Goal: Signs and Symptoms of Listed Potential Problems Will be Absent, Minimized or Managed (Arrhythmia/Dysrhythmia) Description: Signs and symptoms of listed potential problems will be absent, minimized or managed by discharge/transition of care (reference Arrhythmia/Dysrhythmia (Symptomatic) (Adult) CPG). Outcome: Ongoing Continuous cardiac monitoring as ordered. ECG s obtained per protocol. Electrolytes replaced with prn orders when appropriate. Antiarrhythmic given as scheduled. [facility] 04-28-2022 Consult note Associated Order (s): IP CONSULT TO CARDIOLOGY - EP Cardiac Electrophysiology Consultation Patient Name: Alba Flores Date of Consult: 04/28/2022 Reason for Consultation: AF/AFL IMPRESSION & RECOMMENDATIONS: Alba Flores is a 72 y.o. female who was seen by the EP Consult Service on 04/28/2022. We are asked to assist in management of AF/AFL IMPRESSION 1. Atypical AFL with variable conduction: patient currently in AFL with rapid ventricular rate. She has been adherent to home eliquis therapy. Denies missed doses. She is not on home anti-arrhythmic therapy. RECOMMENDATIONS Start IV amiodarone bolus and gtt NPO at NE for electrical cardioversion tomorrow. Consent signed. Continue home eliquis 5 mg bid Return to Dr. Velasquez clinic in 6-8 weeks outpatient. Consideration of repeat ablation outpatient Will continue to follow Oswald Lopez MD Tubing Tester Pager: [phone] This consult was discussed with Dr. Velasquez, EP attending physician. If you have any questions or need any further information, please feel free to contact the EP Consult Service. Thank you for allowing us to participate in the care of Alba Flores. HPI: Alba Flores is a 72 y.o. female with a history of NICM (LVEF 34% in 04/2020), AF/AFL, COPD, CECILIA, morbid obesity. She had a prior EPS via RFV for RFA RA flutter with Dr. Velasquez in April 2020. She initially presented to [facility] with chest pain and palpitations. Heart rate elevated to 180, converted spontaneously and discharged home. Recurred again the following day, given adenosine in the ambulance and admitted. Was transferred to [facility] for further work-up and management of narrow complex tachycardia. On arrival here HR 180 bpm. PAST MEDICAL HISTORY: PAST MEDICAL HISTORY She has a past medical history of Chronic kidney disease, Chronic systolic heart failure, COPD (chronic obstructive pulmonary disease), Nonischemic cardiomyopathy, Obstructive sleep apnea, and Uterine cancer. SOCIAL HISTORY She reports that she has quit smoking. She has quit using smokeless tobacco. She reports that she does not currently use alcohol. She reports that she does not use drugs. FAMILY HISTORY Her family history includes Heart Disease - Other in her father. She She indicated that the status of her father is unknown. PAST SURGICAL HISTORY Her has a past surgical history that includes appendectomy and hysterectomy. ALLERGIES Allergies Allergen Reactions Aspirin Dyspepsia and Abdominal Discomfort Propoxyphene Syncope Dizziness/ syncope HOME MEDICATIONS Medications Prior to Admission Medication Sig Dispense Refill Last Dose AMIOdarone 200 MG tablet Take 1 tablet by mouth daily. 30 tablet 0 04/27/2022 apixaban 5 MG tablet Take 1 tablet by mouth every 12 hours. 30 tablet 0 04/27/2022 furOSEmide 40 MG tablet Take 1 tablet by mouth 2 times daily (take before meals). 60 tablet 0 04/27/2022 metoprolol succinate 25 MG tablet XL Take 1 tablet by mouth daily. 30 tablet 0 04/27/2022 sacubitril-valsartan (Entresto) 24-26 MG tablet Take 1 tablet by mouth 2 times daily. 60 tablet 0 04/27/2022 sacubitril-valsartan 24-26 MG tablet Take 1 tablet by mouth 2 times daily. 60 tablet 0 04/27/2022 Trelegy Ellipta 100-62.5-25 MCG/INH Aerosol Powder, breath activated inhale 1 puff by mouth and INTO THE LUNGS once daily 04/27/2022 -------- CURRENT MEDICATIONS apixaban 5 mg Oral Q12H icctvdlzat-rgukmvdapqbras-Xuiuicng ol 2 puff Inhalation BID furOSEmide 40 mg Oral BID AC Pantoprazole 40 mg Oral Daily [START ON 04/29/2022] Potassium chloride 10 mEq Oral Daily sacubitril-valsartan 1 tablet Oral BID REVIEW OF SYSTEMS: General: denies fevers, chills, malaise, weight loss, night sweats HEENT: denies headache, vision changes, hearing changes, rhinorrhea, sore throat Respiratory: denies shortness of breath, cough, dyspnea on exertion Cardiovascular: +palpitations. Denies chest pain, orthopnea, edema GI/: denies nausea, vomiting, abdominal pain, diarrhea, dysuria, hematuria Extremities: denies myalgias, edema Skin: no rash Neuro: no change in sensation, loss of consciousness Psych: denies anxiety, depression, substance abuse PHYSICAL EXAM: Intake/Output Summary (Last 24 hours) at 04/28/2022 1307 Last data filed at 04/28/2022 1243 Gross per 24 hour Intake -- Output 150 ml Net -150 ml Temp: [98.1 F (36.7 C)] 98.1 F (36.7 C) Pulse (Heart Rate): [120] 120 Resp Rate: [20] 20 BP: (136)/(71) 136/71 O2 Sat (%): [92 %] 92 % Weight: [155.1 kg (341 lb 14.4 oz)] 155.1 kg (341 lb 14.4 oz) Physical Exam General appearance - alert and oriented, and in no distress. Neck - supple, normal JVP. Carotids - normal upstroke, no bruits. Chest - clear to auscultation, no wheezing, rales or rhonchi, not in acute resp distress. Heart - fast rate, irregular, normal s1/s2, no murmurs, rubs, or gallops Peripheral vascular: peripheral pulses normal Abdomen - soft, non-tender, non-distended, normal bowel sounds. Extremities - warm and well perfused. no edema. Skin - normal color and turgor, no generalized rash. Psych - mood appropriate. Neuro - mentation intact, moving all extremities independently. DATA REVIEWED: EKG (04/28/2022): Atrial flutter with rapid ventricular rate Telemetry Data: AFL with variable conduction, elicited with carotid sinus massage Lab Results Component Value Date SODIUM 142 05/09/2020 POTASSIUM 3.9 05/09/2020 GLUCOSE 86 05/09/2020 CHLORIDE 100 05/09/2020 CO2 32 (H) 05/09/2020 BUN 20 05/09/2020 CREATSERUM 1.14 05/09/2020 TSH 4.258 05/06/2020 Lab Results Component Value Date WBC 5.85 05/07/2020 HGB 11.7 05/07/2020 HCT 39.1 05/07/2020 PLATELET 154 05/07/2020 MCV 91.8 05/07/2020 Lab Results Component Value Date BNP 144 (H) 05/03/2020 Echocardiogram (05/08/2020): Limited image quality study.Definity was used. Left Ventricle: Chamber size is mildly enlarged. Increased wall thickness. Eccentric hypertrophy. Global hypokinesis with regional wall motion abnormalities. Wall motion abnormality: See wall scoring diagram. Abnormal septal motion. The ejection fraction is 34%. Ejection fraction by modified Soto's rule is moderately reduced. Diastolic function is consistent with pseudonormalization (grade II). Right Ventricle: Chamber size is normal. Systolic function is mildly reduced. Left Atrium: Chamber size is mildly enlarged. Estimated right ventricular systolic pressure is 22 mmHg. Estimated right atrial pressure is 3.00 mmHg. No pericardial effusion. No significant valve disease. Associated attestation - Jerome Velasquez MD - 04/28/2022 6:08 PM EST Attending Physician Note (GC) I saw and personally examined this patient with the Fellow/PROCESSOR GRAIN/Resident. I have discussed the findings and therapeutic plan with the Fellow/PROCESSOR GRAIN/Resident. I agree with the history, physical examination and medical decisions as outlined. Further comments are added below Subjective & Physical BP 104/52 (BP Location: Right arm, BP Position: Lying) Pulse 112 Temp 97.7 F (36.5 C) (Oral) Resp 15 Ht 1.626 m (5' 4 ) Wt (!) 155.1 kg (341 lb 14.4 oz) SpO2 94% BMI 58.69 kg/m Smoking Status Former Assessment & Plan Patient Active Problem List Diagnosis CHF exacerbation Paroxysmal A-fib Obesity: body mass index of 50 or higher Typical atrial flutter Tachycardia The patient has remote history of successful ablation of right atrial flutter that at that time resulted in a tachycardia induced cardiomyopathy that reversed from an ejection fraction of 15% up to 55%. She now presents with symptoms of palpitations with rapid ventricular rates and the ECG is consistent with an atypical left atrial flutter with variable conduction which sometimes conducts 1:1 with ventricular rate of about 210 bpm. We will load with po amiodarone and proceed with an electrical cardioversion tomorrow. She has been compliant with the Eliquis. She will require another ablation procedures that we will arrange as an outpatient. Alert & Oriented Jerome Velasquez MD 04/28/2022 6:06 PM Cell Buffet Server, [facility] Cardiac Electrophysiology [facility] Work Phone: 04-28-2022 Consult note Associated Order (s): IP CONSULT TO CARDIOLOGY - EP Cardiac Electrophysiology Consultation Patient Name: Alba Flores Date of Consult: 04/28/2022 Reason for Consultation: AF/AFL IMPRESSION & RECOMMENDATIONS: Alba Flores is a 72 y.o. female who was seen by the EP Consult Service on 04/28/2022. We are asked to assist in management of AF/AFL IMPRESSION 1. Atypical AFL with variable conduction: patient currently in AFL with rapid ventricular rate. She has been adherent to home eliquis therapy. Denies missed doses. She is not on home anti-arrhythmic therapy. RECOMMENDATIONS Start IV amiodarone bolus and gtt NPO at NE for electrical cardioversion tomorrow. Consent signed. Continue home eliquis 5 mg bid Return to Dr. Velasquez clinic in 6-8 weeks outpatient. Consideration of repeat ablation outpatient Will continue to follow Oswald Lopez MD Tubing Tester Pager: [phone] This consult was discussed with Dr. Velasquez, EP attending physician. If you have any questions or need any further information, please feel free to contact the EP Consult Service. Thank you for allowing us to participate in the care of Alba Flores. HPI: Alba Flores is a 72 y.o. female with a history of NICM (LVEF 34% in 04/2020), AF/AFL, COPD, CECILIA, morbid obesity. She had a prior EPS via RFV for RFA RA flutter with Dr. Velasquez in April 2020. She initially presented to [facility] with chest pain and palpitations. Heart rate elevated to 180, converted spontaneously and discharged home. Recurred again the following day, given adenosine in the ambulance and admitted. Was transferred to [facility] for further work-up and management of narrow complex tachycardia. On arrival here HR 180 bpm. PAST MEDICAL HISTORY: PAST MEDICAL HISTORY She has a past medical history of Chronic kidney disease, Chronic systolic heart failure, COPD (chronic obstructive pulmonary disease), Nonischemic cardiomyopathy, Obstructive sleep apnea, and Uterine cancer. SOCIAL HISTORY She reports that she has quit smoking. She has quit using smokeless tobacco. She reports that she does not currently use alcohol. She reports that she does not use drugs. FAMILY HISTORY Her family history includes Heart Disease - Other in her father. She She indicated that the status of her father is unknown. PAST SURGICAL HISTORY Her has a past surgical history that includes appendectomy and hysterectomy. ALLERGIES Allergies Allergen Reactions Aspirin Dyspepsia and Abdominal Discomfort Propoxyphene Syncope Dizziness/ syncope HOME MEDICATIONS Medications Prior to Admission Medication Sig Dispense Refill Last Dose AMIOdarone 200 MG tablet Take 1 tablet by mouth daily. 30 tablet 0 04/27/2022 apixaban 5 MG tablet Take 1 tablet by mouth every 12 hours. 30 tablet 0 04/27/2022 furOSEmide 40 MG tablet Take 1 tablet by mouth 2 times daily (take before meals). 60 tablet 0 04/27/2022 metoprolol succinate 25 MG tablet XL Take 1 tablet by mouth daily. 30 tablet 0 04/27/2022 sacubitril-valsartan (Entresto) 24-26 MG tablet Take 1 tablet by mouth 2 times daily. 60 tablet 0 04/27/2022 sacubitril-valsartan 24-26 MG tablet Take 1 tablet by mouth 2 times daily. 60 tablet 0 04/27/2022 Trelegy Ellipta 100-62.5-25 MCG/INH Aerosol Powder, breath activated inhale 1 puff by mouth and INTO THE LUNGS once daily 04/27/2022 -------- CURRENT MEDICATIONS apixaban 5 mg Oral Q12H dutdncpctz-akhwcnknhjxuxw-Zhysmphz ol 2 puff Inhalation BID furOSEmide 40 mg Oral BID AC Pantoprazole 40 mg Oral Daily [START ON 04/29/2022] Potassium chloride 10 mEq Oral Daily sacubitril-valsartan 1 tablet Oral BID REVIEW OF SYSTEMS: General: denies fevers, chills, malaise, weight loss, night sweats HEENT: denies headache, vision changes, hearing changes, rhinorrhea, sore throat Respiratory: denies shortness of breath, cough, dyspnea on exertion Cardiovascular: +palpitations. Denies chest pain, orthopnea, edema GI/: denies nausea, vomiting, abdominal pain, diarrhea, dysuria, hematuria Extremities: denies myalgias, edema Skin: no rash Neuro: no change in sensation, loss of consciousness Psych: denies anxiety, depression, substance abuse PHYSICAL EXAM: Intake/Output Summary (Last 24 hours) at 04/28/2022 1307 Last data filed at 04/28/2022 1243 Gross per 24 hour Intake -- Output 150 ml Net -150 ml Temp: [98.1 F (36.7 C)] 98.1 F (36.7 C) Pulse (Heart Rate): [120] 120 Resp Rate: [20] 20 BP: (136)/(71) 136/71 O2 Sat (%): [92 %] 92 % Weight: [155.1 kg (341 lb 14.4 oz)] 155.1 kg (341 lb 14.4 oz) Physical Exam General appearance - alert and oriented, and in no distress. Neck - supple, normal JVP. Carotids - normal upstroke, no bruits. Chest - clear to auscultation, no wheezing, rales or rhonchi, not in acute resp distress. Heart - fast rate, irregular, normal s1/s2, no murmurs, rubs, or gallops Peripheral vascular: peripheral pulses normal Abdomen - soft, non-tender, non-distended, normal bowel sounds. Extremities - warm and well perfused. no edema. Skin - normal color and turgor, no generalized rash. Psych - mood appropriate. Neuro - mentation intact, moving all extremities independently. DATA REVIEWED: EKG (04/28/2022): Atrial flutter with rapid ventricular rate Telemetry Data: AFL with variable conduction, elicited with carotid sinus massage Lab Results Component Value Date SODIUM 142 05/09/2020 POTASSIUM 3.9 05/09/2020 GLUCOSE 86 05/09/2020 CHLORIDE 100 05/09/2020 CO2 32 (H) 05/09/2020 BUN 20 05/09/2020 CREATSERUM 1.14 05/09/2020 TSH 4.258 05/06/2020 Lab Results Component Value Date WBC 5.85 05/07/2020 HGB 11.7 05/07/2020 HCT 39.1 05/07/2020 PLATELET 154 05/07/2020 MCV 91.8 05/07/2020 Lab Results Component Value Date BNP 144 (H) 05/03/2020 Echocardiogram (05/08/2020): Limited image quality study.Definity was used. Left Ventricle: Chamber size is mildly enlarged. Increased wall thickness. Eccentric hypertrophy. Global hypokinesis with regional wall motion abnormalities. Wall motion abnormality: See wall scoring diagram. Abnormal septal motion. The ejection fraction is 34%. Ejection fraction by modified Soto's rule is moderately reduced. Diastolic function is consistent with pseudonormalization (grade II). Right Ventricle: Chamber size is normal. Systolic function is mildly reduced. Left Atrium: Chamber size is mildly enlarged. Estimated right ventricular systolic pressure is 22 mmHg. Estimated right atrial pressure is 3.00 mmHg. No pericardial effusion. No significant valve disease. Associated attestation - Jerome Velasquez MD - 04/28/2022 6:08 PM EST Attending Physician Note (GC) I saw and personally examined this patient with the Fellow/PROCESSOR GRAIN/Resident. I have discussed the findings and therapeutic plan with the Fellow/PROCESSOR GRAIN/Resident. I agree with the history, physical examination and medical decisions as outlined. Further comments are added below Subjective & Physical BP 104/52 (BP Location: Right arm, BP Position: Lying) Pulse 112 Temp 97.7 F (36.5 C) (Oral) Resp 15 Ht 1.626 m (5' 4 ) Wt (!) 155.1 kg (341 lb 14.4 oz) SpO2 94% BMI 58.69 kg/m Smoking Status Former Assessment & Plan Patient Active Problem List Diagnosis CHF exacerbation Paroxysmal A-fib Obesity: body mass index of 50 or higher Typical atrial flutter Tachycardia The patient has remote history of successful ablation of right atrial flutter that at that time resulted in a tachycardia induced cardiomyopathy that reversed from an ejection fraction of 15% up to 55%. She now presents with symptoms of palpitations with rapid ventricular rates and the ECG is consistent with an atypical left atrial flutter with variable conduction which sometimes conducts 1:1 with ventricular rate of about 210 bpm. We will load with po amiodarone and proceed with an electrical cardioversion tomorrow. She has been compliant with the Eliquis. She will require another ablation procedures that we will arrange as an outpatient. Alert & Oriented Jerome Velasquez MD 04/28/2022 6:06 PM Cell Buffet Server, [facility] Cardiac Electrophysiology documented in this encounter [facility] 04-28-2022 Consult note Associated Order (s): IP CONSULT TO CARDIOLOGY - EP Cardiac Electrophysiology Consultation Patient Name: Alba Flores Date of Consult: 04/28/2022 Reason for Consultation: AF/AFL IMPRESSION & RECOMMENDATIONS: Alba Flores is a 72 y.o. female who was seen by the EP Consult Service on 04/28/2022. We are asked to assist in management of AF/AFL IMPRESSION 1. Atypical AFL with variable conduction: patient currently in AFL with rapid ventricular rate. She has been adherent to home eliquis therapy. Denies missed doses. She is not on home anti-arrhythmic therapy. RECOMMENDATIONS Start IV amiodarone bolus and gtt NPO at NE for electrical cardioversion tomorrow. Consent signed. Continue home eliquis 5 mg bid Return to Dr. Velasquez clinic in 6-8 weeks outpatient. Consideration of repeat ablation outpatient Will continue to follow Oswald Lopez MD Tubing Tester Pager: [phone] This consult was discussed with Dr. Velasquez, EP attending physician. If you have any questions or need any further information, please feel free to contact the EP Consult Service. Thank you for allowing us to participate in the care of Alba Flores. HPI: Alba Flores is a 72 y.o. female with a history of NICM (LVEF 34% in 04/2020), AF/AFL, COPD, CECILIA, morbid obesity. She had a prior EPS via RFV for RFA RA flutter with Dr. Velasquez in April 2020. She initially presented to [facility] with chest pain and palpitations. Heart rate elevated to 180, converted spontaneously and discharged home. Recurred again the following day, given adenosine in the ambulance and admitted. Was transferred to [facility] for further work-up and management of narrow complex tachycardia. On arrival here HR 180 bpm. PAST MEDICAL HISTORY: PAST MEDICAL HISTORY She has a past medical history of Chronic kidney disease, Chronic systolic heart failure, COPD (chronic obstructive pulmonary disease), Nonischemic cardiomyopathy, Obstructive sleep apnea, and Uterine cancer. SOCIAL HISTORY She reports that she has quit smoking. She has quit using smokeless tobacco. She reports that she does not currently use alcohol. She reports that she does not use drugs. FAMILY HISTORY Her family history includes Heart Disease - Other in her father. She She indicated that the status of her father is unknown. PAST SURGICAL HISTORY Her has a past surgical history that includes appendectomy and hysterectomy. ALLERGIES Allergies Allergen Reactions Aspirin Dyspepsia and Abdominal Discomfort Propoxyphene Syncope Dizziness/ syncope HOME MEDICATIONS Medications Prior to Admission Medication Sig Dispense Refill Last Dose AMIOdarone 200 MG tablet Take 1 tablet by mouth daily. 30 tablet 0 04/27/2022 apixaban 5 MG tablet Take 1 tablet by mouth every 12 hours. 30 tablet 0 04/27/2022 furOSEmide 40 MG tablet Take 1 tablet by mouth 2 times daily (take before meals). 60 tablet 0 04/27/2022 metoprolol succinate 25 MG tablet XL Take 1 tablet by mouth daily. 30 tablet 0 04/27/2022 sacubitril-valsartan (Entresto) 24-26 MG tablet Take 1 tablet by mouth 2 times daily. 60 tablet 0 04/27/2022 sacubitril-valsartan 24-26 MG tablet Take 1 tablet by mouth 2 times daily. 60 tablet 0 04/27/2022 Trelegy Ellipta 100-62.5-25 MCG/INH Aerosol Powder, breath activated inhale 1 puff by mouth and INTO THE LUNGS once daily 04/27/2022 -------- CURRENT MEDICATIONS apixaban 5 mg Oral Q12H bcjzciolxi-mbtbuajobmkbng-Vxmsctjt ol 2 puff Inhalation BID furOSEmide 40 mg Oral BID AC Pantoprazole 40 mg Oral Daily [START ON 04/29/2022] Potassium chloride 10 mEq Oral Daily sacubitril-valsartan 1 tablet Oral BID REVIEW OF SYSTEMS: General: denies fevers, chills, malaise, weight loss, night sweats HEENT: denies headache, vision changes, hearing changes, rhinorrhea, sore throat Respiratory: denies shortness of breath, cough, dyspnea on exertion Cardiovascular: +palpitations. Denies chest pain, orthopnea, edema GI/: denies nausea, vomiting, abdominal pain, diarrhea, dysuria, hematuria Extremities: denies myalgias, edema Skin: no rash Neuro: no change in sensation, loss of consciousness Psych: denies anxiety, depression, substance abuse PHYSICAL EXAM: Intake/Output Summary (Last 24 hours) at 04/28/2022 1307 Last data filed at 04/28/2022 1243 Gross per 24 hour Intake -- Output 150 ml Net -150 ml Temp: [98.1 F (36.7 C)] 98.1 F (36.7 C) Pulse (Heart Rate): [120] 120 Resp Rate: [20] 20 BP: (136)/(71) 136/71 O2 Sat (%): [92 %] 92 % Weight: [155.1 kg (341 lb 14.4 oz)] 155.1 kg (341 lb 14.4 oz) Physical Exam General appearance - alert and oriented, and in no distress. Neck - supple, normal JVP. Carotids - normal upstroke, no bruits. Chest - clear to auscultation, no wheezing, rales or rhonchi, not in acute resp distress. Heart - fast rate, irregular, normal s1/s2, no murmurs, rubs, or gallops Peripheral vascular: peripheral pulses normal Abdomen - soft, non-tender, non-distended, normal bowel sounds. Extremities - warm and well perfused. no edema. Skin - normal color and turgor, no generalized rash. Psych - mood appropriate. Neuro - mentation intact, moving all extremities independently. DATA REVIEWED: EKG (04/28/2022): Atrial flutter with rapid ventricular rate Telemetry Data: AFL with variable conduction, elicited with carotid sinus massage Lab Results Component Value Date SODIUM 142 05/09/2020 POTASSIUM 3.9 05/09/2020 GLUCOSE 86 05/09/2020 CHLORIDE 100 05/09/2020 CO2 32 (H) 05/09/2020 BUN 20 05/09/2020 CREATSERUM 1.14 05/09/2020 TSH 4.258 05/06/2020 Lab Results Component Value Date WBC 5.85 05/07/2020 HGB 11.7 05/07/2020 HCT 39.1 05/07/2020 PLATELET 154 05/07/2020 MCV 91.8 05/07/2020 Lab Results Component Value Date BNP 144 (H) 05/03/2020 Echocardiogram (05/08/2020): Limited image quality study.Definity was used. Left Ventricle: Chamber size is mildly enlarged. Increased wall thickness. Eccentric hypertrophy. Global hypokinesis with regional wall motion abnormalities. Wall motion abnormality: See wall scoring diagram. Abnormal septal motion. The ejection fraction is 34%. Ejection fraction by modified Stoo's rule is moderately reduced. Diastolic function is consistent with pseudonormalization (grade II). Right Ventricle: Chamber size is normal. Systolic function is mildly reduced. Left Atrium: Chamber size is mildly enlarged. Estimated right ventricular systolic pressure is 22 mmHg. Estimated right atrial pressure is 3.00 mmHg. No pericardial effusion. No significant valve disease. Associated attestation - Jerome Velasquez MD - 04/28/2022 6:08 PM EST Attending Physician Note (GC) I saw and personally examined this patient with the Fellow/PROCESSOR GRAIN/Resident. I have discussed the findings and therapeutic plan with the Fellow/PROCESSOR GRAIN/Resident. I agree with the history, physical examination and medical decisions as outlined. Further comments are added below Subjective & Physical BP 104/52 (BP Location: Right arm, BP Position: Lying) Pulse 112 Temp 97.7 F (36.5 C) (Oral) Resp 15 Ht 1.626 m (5' 4 ) Wt (!) 155.1 kg (341 lb 14.4 oz) SpO2 94% BMI 58.69 kg/m Smoking Status Former Assessment & Plan Patient Active Problem List Diagnosis CHF exacerbation Paroxysmal A-fib Obesity: body mass index of 50 or higher Typical atrial flutter Tachycardia The patient has remote history of successful ablation of right atrial flutter that at that time resulted in a tachycardia induced cardiomyopathy that reversed from an ejection fraction of 15% up to 55%. She now presents with symptoms of palpitations with rapid ventricular rates and the ECG is consistent with an atypical left atrial flutter with variable conduction which sometimes conducts 1:1 with ventricular rate of about 210 bpm. We will load with po amiodarone and proceed with an electrical cardioversion tomorrow. She has been compliant with the Eliquis. She will require another ablation procedures that we will arrange as an outpatient. Alert & Oriented Jerome Velasquez MD 04/28/2022 6:06 PM Cell [employer] Server, [facility] Cardiac Electrophysiology documented in this encounter [facility] 04-28-2022 Note Formatting of this n ote might be different from the original. On admission to [address] [place] [address] @, from [facility] a dual RN initial assessment of skin condition was performed by ANGEL Lewis and Yenny RN Skin Assessment: WDL Prfaul Score: 20 LDA Added: Take Picture of Wound: If Applicable Wound Consult in place: If Applicable Dressings/Treatment: If Applicable [facility] 04-28-2022 Note Formatting of this n ote might be different from the original. On admission to [address] [place] [address] @, from [facility] a dual RN initial assessment of skin condition was performed by ANGEL Lewis and Yenny ORTIZ Skin Assessment: WDL Praful Score: 20 LDA Added: Take Picture of Wound: If Applicable Wound Consult in place: If Applicable Dressings/Treatment: If Applicable [facility] 04-28-2022 Note Acute Coronary Syndr ome (ACS): Initial Evaluation and Management: [email or web address] [facility] 04-28-2022 Note Acute Coronary Syndr ome (ACS): Initial Evaluation and Management: [email or web address] [facility] 04-28-2022 Note Formatting of this n ote is different from the original. I certify that this patient requires > 48 hours hospitalization Alba Flores is a 72 y.o. female w PMH a fib with history SVT s/p ablation at [facility], CHF, HTN admitted to [facility] 04/26/22 due to chest pain and palpitations. #Reported SVT, tachycardia, palpitations, history of SVT/a fib s/p ablation -HR 180s at OSH with concern for possible SVT, improved with adenosine 1X -tele -cards ep consult -consider echo, check labs, tsh -Holding home beta maeve for now in case of EP study per osh recommendations -consider amiodarone #COPD, chronic respiratory failure -Continue inhaler -on home 2L #CHF EF 34% -Continue entersto, Lasix Plans for post hospitalization care will be discharge to home [facility] 04-28-2022 Note Formatting of this n ote is different from the original. I certify that this patient requires > 48 hours hospitalization Alba Flores is a 72 y.o. female w PMH a fib with history SVT s/p ablation at [facility], CHF, HTN admitted to OSH 04/26/22 due to chest pain and palpitations. #Reported SVT, tachycardia, palpitations, history of SVT/a fib s/p ablation -HR 180s at OSH with concern for possible SVT, improved with adenosine 1X -tele -cards ep consult -consider echo, check labs, tsh -Holding home beta maeve for now in case of EP study per osh recommendations -consider amiodarone #COPD, chronic respiratory failure -Continue inhaler -on home 2L #CHF EF 34% -Continue entersto, Lasix Plans for post hospitalization care will be discharge to home [facility] 04-28-2022 History and physical note Hospital Medicine Admission History & Physical Patient: Alba Flores, 1950, [id number] Physician: Efren Smith MD, Attending PhysicianJavi service Date of face to face patient encounter: 04/28/2022. IMPRESSION/PLAN Alba Flores is a 72 y.o. female w PMH a fib with history SVT s/p ablation at [facility], CHF, HTN admitted to OSH 04/26/22 due to chest pain and palpitations. 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 female w PMH a fib with history SVT s/p ablation at [facility], CHF, HTN admitted to OSH 04/26/22 due to chest pain and palpitations. Noticed on her watch that her Hrs were up to 200s. Denied fevers, chills, dizziness, shortness of breath. EMS gave 6mg adenosine to slow Hrs which improved after. EKG obtained in ER showed NSR HR 70s with first degree heart block. Previous rhythm strips showed possible SVT/atrial fibrillation with HT in 180s. Crea stable, troponin in 30s and BNP in 400s. CXR with mild r basilar atelectasis vs infiltrate. She reportedly converted to NSR after arriving in ED. Patient was not started on medications or drip, transferred to [place] for EP evaluation. HR in 170s on arrival here. Patient still felt palpitations. Denied SOB, dizziness. MEDICAL HISTORY Past Medical History: Diagnosis Date Chronic kidney disease Chronic systolic heart failure COPD (chronic obstructive pulmonary disease) Nonischemic cardiomyopathy Obstructive sleep apnea Uterine cancer Past Surgical History: Procedure Laterality Date APPENDECTOMY HYSTERECTOMY SOCIAL HISTORY Social History Tobacco Use Smoking status: Former Smokeless tobacco: Former Substance Use Topics Alcohol use: Not Currently Social History Substance and Sexual Activity Drug Use Never FAMILY HISTORY family history includes Heart Disease - Other in her father. MEDICATIONS Prior to Admission Medications Prescriptions Last Dose Informant Patient Reported? Taking? AMIOdarone 200 MG tablet No No Sig: Take 1 tablet by mouth daily. Trelegy Ellipta 100-62.5-25 MCG/INH Aerosol Powder, breath activated Yes No Sig: inhale 1 puff by mouth and INTO THE LUNGS once daily apixaban 5 MG tablet No No Sig: Take 1 tablet by mouth every 12 hours. furOSEmide 40 MG tablet No No Sig: Take 1 tablet by mouth 2 times daily (take before meals). metoprolol succinate 25 MG tablet XL No No Sig: Take 1 tablet by mouth daily. sacubitril-valsartan (Entresto) 24-26 MG tablet No No Sig: Take 1 tablet by mouth 2 times daily. sacubitril-valsartan 24-26 MG tablet No No Sig: Take 1 tablet by mouth 2 times daily. Facility-Administered Medications: None ALLERGIES Allergies Allergen Reactions Aspirin Dyspepsia and Abdominal Discomfort Propoxyphene Syncope Dizziness/ syncope REVIEW OF SYSTEMS Chest pain, palpitations PHYSICAL EXAM Vitals: 04/28/22 1230 BP: 136/71 Pulse: 120 Resp: 20 Temp: 98.1 F (36.7 C) O2 Device: room air (04/28/22 1230) Gen: Alert, Awake, NAD Eyes: PERRLA, EOMI, no icterus ENT: MMM, trachea midline Resp: CTA & P, normal respiratory effort Cardio: RRR, normal S1, S2, no M/R/G. No BONIFACIO. GI: S/NT/ND, NABS MS: No joint effusions or erythema: Skin: No jaundice or rash Neuro: sapphire stylus grinder 3-7, 9-11 intact and equal. Strength grossly equal in muscle groups of the bilateral UEs and LEs. Psych: Alert, Ox3, appropriate affect and cognition DATA REVIEW Body mass index is 58.69 kg/m . Additional Labs: pending Imaging: Pending CXR OSH: mild right basilar atelectasis or infiltrate ECG pending Signed, Efren Smith MD [facility] 04-28-2022 History and physical note Hospital Medicine Admission History & Physical Patient: Alba Flores, 1950, [id number] Physician: Efren Smith MD, Attending PhysicianJavi service Date of face to face patient encounter: 04/28/2022. IMPRESSION/PLAN Alba Flores is a 72 y.o. female w PMH a fib with history SVT s/p ablation at [facility], CHF, HTN admitted to OSH 04/26/22 due to chest pain and palpitations. 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 female w PMH a fib with history SVT s/p ablation at [facility], CHF, HTN admitted to OSH 04/26/22 due to chest pain and palpitations. Noticed on her watch that her Hrs were up to 200s. Denied fevers, chills, dizziness, shortness of breath. EMS gave 6mg adenosine to slow Hrs which improved after. EKG obtained in ER showed NSR HR 70s with first degree heart block. Previous rhythm strips showed possible SVT/atrial fibrillation with HT in 180s. Crea stable, troponin in 30s and BNP in 400s. CXR with mild r basilar atelectasis vs infiltrate. She reportedly converted to NSR after arriving in ED. Patient was not started on medications or drip, transferred to [place] for EP evaluation. HR in 170s on arrival here. Patient still felt palpitations. Denied SOB, dizziness. MEDICAL HISTORY Past Medical History: Diagnosis Date Chronic kidney disease Chronic systolic heart failure COPD (chronic obstructive pulmonary disease) Nonischemic cardiomyopathy Obstructive sleep apnea Uterine cancer Past Surgical History: Procedure Laterality Date APPENDECTOMY HYSTERECTOMY SOCIAL HISTORY Social History Tobacco Use Smoking status: Former Smokeless tobacco: Former Substance Use Topics Alcohol use: Not Currently Social History Substance and Sexual Activity Drug Use Never FAMILY HISTORY family history includes Heart Disease - Other in her father. MEDICATIONS Prior to Admission Medications Prescriptions Last Dose Informant Patient Reported? Taking? AMIOdarone 200 MG tablet No No Sig: Take 1 tablet by mouth daily. Trelegy Ellipta 100-62.5-25 MCG/INH Aerosol Powder, breath activated Yes No Sig: inhale 1 puff by mouth and INTO THE LUNGS once daily apixaban 5 MG tablet No No Sig: Take 1 tablet by mouth every 12 hours. furOSEmide 40 MG tablet No No Sig: Take 1 tablet by mouth 2 times daily (take before meals). metoprolol succinate 25 MG tablet XL No No Sig: Take 1 tablet by mouth daily. sacubitril-valsartan (Entresto) 24-26 MG tablet No No Sig: Take 1 tablet by mouth 2 times daily. sacubitril-valsartan 24-26 MG tablet No No Sig: Take 1 tablet by mouth 2 times daily. Facility-Administered Medications: None ALLERGIES Allergies Allergen Reactions Aspirin Dyspepsia and Abdominal Discomfort Propoxyphene Syncope Dizziness/ syncope REVIEW OF SYSTEMS Chest pain, palpitations PHYSICAL EXAM Vitals: 04/28/22 1230 BP: 136/71 Pulse: 120 Resp: 20 Temp: 98.1 F (36.7 C) O2 Device: room air (04/28/22 1230) Gen: Alert, Awake, NAD Eyes: PERRLA, EOMI, no icterus ENT: MMM, trachea midline Resp: CTA & P, normal respiratory effort Cardio: RRR, normal S1, S2, no M/R/G. No BONIFACIO. GI: S/NT/ND, NABS MS: No joint effusions or erythema: Skin: No jaundice or rash Neuro: sapphire stylus grinder 3-7, 9-11 intact and equal. Strength grossly equal in muscle groups of the bilateral UEs and LEs. Psych: Alert, Ox3, appropriate affect and cognition DATA REVIEW Body mass index is 58.69 kg/m . Additional Labs: pending Imaging: Pending CXR OSH: mild right basilar atelectasis or infiltrate ECG pending Signed, Efren Smith MD documented in this encounter [facility] 04-28-2022 History and physical note Hospital Medicine Admission History & Physical Patient: Alba Flores, 1950, [id number] Physician: Efren Smith MD, Attending PhysicianJavi service Date of face to face patient encounter: 04/28/2022. IMPRESSION/PLAN Alba Flores is a 72 y.o. female w PMH a fib with history SVT s/p ablation at [facility], CHF, HTN admitted to [facility]SH 04/26/22 due to chest pain and palpitations. 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 female w PMH a fib with history SVT s/p ablation at [facility], CHF, HTN admitted to OSH 04/26/22 due to chest pain and palpitations. Noticed on her watch that her Hrs were up to 200s. Denied fevers, chills, dizziness, shortness of breath. EMS gave 6mg adenosine to slow Hrs which improved after. EKG obtained in ER showed NSR HR 70s with first degree heart block. Previous rhythm strips showed possible SVT/atrial fibrillation with HT in 180s. Crea stable, troponin in 30s and BNP in 400s. CXR with mild r basilar atelectasis vs infiltrate. She reportedly converted to NSR after arriving in ED. Patient was not started on medications or drip, transferred to [place] for EP evaluation. HR in 170s on arrival here. Patient still felt palpitations. Denied SOB, dizziness. MEDICAL HISTORY Past Medical History: Diagnosis Date Chronic kidney disease Chronic systolic heart failure COPD (chronic obstructive pulmonary disease) Nonischemic cardiomyopathy Obstructive sleep apnea Uterine cancer Past Surgical History: Procedure Laterality Date APPENDECTOMY HYSTERECTOMY SOCIAL HISTORY Social History Tobacco Use Smoking status: Former Smokeless tobacco: Former Substance Use Topics Alcohol use: Not Currently Social History Substance and Sexual Activity Drug Use Never FAMILY HISTORY family history includes Heart Disease - Other in her father. MEDICATIONS Prior to Admission Medications Prescriptions Last Dose Informant Patient Reported? Taking? AMIOdarone 200 MG tablet No No Sig: Take 1 tablet by mouth daily. Trelegy Ellipta 100-62.5-25 MCG/INH Aerosol Powder, breath activated Yes No Sig: inhale 1 puff by mouth and INTO THE LUNGS once daily apixaban 5 MG tablet No No Sig: Take 1 tablet by mouth every 12 hours. furOSEmide 40 MG tablet No No Sig: Take 1 tablet by mouth 2 times daily (take before meals). metoprolol succinate 25 MG tablet XL No No Sig: Take 1 tablet by mouth daily. sacubitril-valsartan (Entresto) 24-26 MG tablet No No Sig: Take 1 tablet by mouth 2 times daily. sacubitril-valsartan 24-26 MG tablet No No Sig: Take 1 tablet by mouth 2 times daily. Facility-Administered Medications: None ALLERGIES Allergies Allergen Reactions Aspirin Dyspepsia and Abdominal Discomfort Propoxyphene Syncope Dizziness/ syncope REVIEW OF SYSTEMS Chest pain, palpitations PHYSICAL EXAM Vitals: 04/28/22 1230 BP: 136/71 Pulse: 120 Resp: 20 Temp: 98.1 F (36.7 C) O2 Device: room air (04/28/22 1230) Gen: Alert, Awake, NAD Eyes: PERRLA, EOMI, no icterus ENT: MMM, trachea midline Resp: CTA & P, normal respiratory effort Cardio: RRR, normal S1, S2, no M/R/G. No BONIFACIO. GI: S/NT/ND, NABS MS: No joint effusions or erythema: Skin: No jaundice or rash Neuro: sapphire stylus grinder 3-7, 9-11 intact and equal. Strength grossly equal in muscle groups of the bilateral UEs and LEs. Psych: Alert, Ox3, appropriate affect and cognition DATA REVIEW Body mass index is 58.69 kg/m . Additional Labs: pending Imaging: Pending CXR OSH: mild right basilar atelectasis or infiltrate ECG pending Signed, Efren Smith MD documented in this encounter [facility] 03-14-2022 Miscellaneous Notes Patient has been identified by name and date of : Yes Requested Prescriptions Pending Prescriptions Disp Refills omeprazole (PRILOSEC) 20 mg capsule 30 capsule 11 Sig: Take 1 capsule by mouth once daily. RX INSTRUCTIONS: Patient aware RX will be sent to pharmacy. No need to notify patient. Bernadette Pena documented in this encounter [facility] 02-03-2022 Miscellaneous Notes FYI: Patient reports she started getting a head cold yesterday and asking for PCP to order her treatment before it gets worse. Reports last time this year her cold developed into pneumonia and she is concerned about that happening again. Reports she had a scratchy throat yesterday but better today, current sinus drainage, mild cough and nasal congestion. States head feels full . Denies fever, nausea, vomiting, diarrhea or SOB. Explained to patient that an evaluation would be necessary before treatment could be ordered. Patient agreeable to [facility] tomorrow due to transportation issues. Jenny Patel RN documented in this encounter [facility] 12-14-2021 History of Present illness Narrative Patient presents with: Follow Up HPI: Patient presents today for office visit for a 3 month follow up. Patient overall doing well. No complaints today. Having success with weight loss. CARDIOLOGY: Currently seeing Dr. Hernandez Denies Chest pain: Yes. Denies Shortness of breath:Yes. Denies Palpations: Yes. Denies Edema: Yes. Denies lightheadedness: Yes. Recent testing: Saw Dr. Hernandez on Pulmonary:Seen at on 08/12 for pneumonia. Xray showed patchy infiltrate in RLL Feels good now. No fever or chills. No cough. She continues to use her oxgyen. Still seeing Dr. Newman. He is wearing her cpap. 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 Pap was negative. Does not need to go back. Not testing her sugars. Feels fantastic. Her weight is coming down. She is improving. Bone density showed osteopenia. See previous ov: CARDIO: no edema. No chest pain No palpitations. No bleeding issues. Remains on meds and sees cardiology. DM: she does not check sugars. No polyuria or polydipsia. Due for bone density. MEDICATIONS: Current Outpatient Medications Medication Sig potassium chloride (K-TAB) 10 mEq tablet Take 1 tablet by mouth daily with breakfast. furosemide (LASIX) 40 mg tablet Take 1 tablet by mouth once daily. amiodarone (PACERONE) 100 mg tablet Take 1 tablet by mouth once daily. metoprolol succinate ER (TOPROL XL) 25 mg 24 hr tablet Take 1 tablet by mouth once daily. omeprazole (PRILOSEC) 20 mg capsule Take 1 capsule by mouth once daily. sacubitril-valsartan (ENTRESTO) 24-26 mg tablet Take 1 tablet by mouth twice daily. apixaban (ELIQUIS) 5 mg tab(s) Take 5 mg by mouth twice daily. albuterol (PROVENTIL) 2.5 mg /3 mL (0.083 %) nebulizer solution Use 3 mL via nebulizer every 2 hours as needed for Wheezing/Shortness of Breath. Per Pulmonary TRELEGY ELLIPTA 100-62.5-25 mcg dsdv Inhale 1 puff once daily calcium carbonate-vitamin D3 500-100 mg-unit chewable tablet Take 1 tablet by mouth once daily. OXYGEN, HOME THERAPY, 2 L/min by Nasal Cannula route as directed. No current facility-administered medications for this visit. ALLERGIES: ALLERGIES Allergen Reactions Asa [Aspirin] GI Upset Propoxyphene Other: See Comments Dizziness/ syncope PAST MEDICAL HISTORY Diagnosis Date Acute kidney injury (EKATERINA) with acute tubular necrosis (ATN) (HCC) Atrial fibrillation (HCC) Atrial flutter (HCC) w/ RVR Borderline diabetes 12/2014 Chronic atrial fibrillation (HCC) COPD (chronic obstructive pulmonary disease) (HCC) Endometrial cancer, grade I (HCC) 12/2014 GERD (gastroesophageal reflux disease) HTN (hypertension) 12/2014 Morbid obesity with BMI of 60.0-69.9, adult (HCC) CECILIA (obstructive sleep apnea) Osteopenia Palpitations PAST SURGICAL HISTORY Procedure Laterality Date APPENDECTOMY CARDIAC CATH Left LAPS SUPRACRV HYSTERECT 250 GM/< RMVL TUBE/OVAR 2014 MIDLINE INSERTION/CONSULT 02/16/2018 TUBAL LIGATION HX FAMILY HISTORY Problem Relation Age of Onset COPD Mother Heart Mother Heart Father Colon Cancer Sister No Known Problems Brother Cancer Maternal Grandmother Heart Attack Maternal Grandfather No Known Problems Paternal Grandmother No Known Problems Paternal Grandfather Diabetes Sister Hypertension Son No Known Problems Son No Known Problems Son No Known Problems Daughter Hypertension Daughter Social History Tobacco Use Smoking status: Former Packs/day: 1.00 Years: 5.00 Pack years: 5.00 Types: Cigarettes Quit date: 04/17/1984 Years since quittin.6 Smokeless tobacco: Never Tobacco comments: still smokes in the home Vaping Use Vaping Use: Never used Substance Use Topics Alcohol use: Not Currently Comment: rarely Drug use: No Reviewed current medications, allergies, past medical history, surgical history, family history and social history today. REVIEW OF SYSTEMS GI: No nausea, vomiting, or diarrhea : No history of dysuria, frequency or incontinence All other reviewed and negative other than HPI. HEALTH MAINTENANCE: Reviewed health maintenance issues today and recommended the following in detail. SHINGRIX VACCINE(1 of 2) Never done COLORECTAL CANCER SCREENING -refuses colonoscopy. Has cologuard at home. Reminded to do. MAMMOGRAM -declines COVID-19 VACCINE(3 - Booster for Pfizer series) due on 04/28/2021 VITALS: BP 116/70 Pulse 67 Ht 157.5 cm (5' 2 ) Wt (!) 155.1 kg (342 lb) SpO2 96% BMI 62.55 kg/m Last 4 Encounter Wt Readings: Date: Wt: 12/14/2021 155.1 kg (342 lb) 09/14/2021 158.3 kg (349 lb) 09/09/2021 156.9 kg (346 lb) 06/10/2021 161.9 kg (357 lb) PHYSICAL EXAMINATION: General appearance: Well appearing, [...] discoloration, clubbing or cyanosis. Good capillary refill. Musculoskeletal: No joint swelling, deformity, or tenderness Peripheral pulses: Normal Neuro: Negative. ASSESSMENT/PLAN: 1. Primary hypertension - ICD9: 401.9, ICD10: I10 (primary diagnosis) - good control - Continue current medication(s) - Goal of BP <130/80 - COMP METABOLIC PANEL - LIPID PANEL BASIC 2. Endometrial cancer, grade I (HCC) - ICD9: 182.0, ICD10: C54.1 - stable. 3. Atrial fibrillation, unspecified type (HCC) - ICD9: 427.31, ICD10: I48.91 - continue to follow up. 4. Cardiomyopathy of undetermined type (HCC) - ICD9: 425.4, ICD10: I42.9 - stable. Per cardiology. 5. Chronic obstructive pulmonary disease, unspecified COPD type (HCC) - ICD9: 496, ICD10: J44.9 6. Stage 3 chronic kidney disease, unspecified whether stage 3a or 3b CKD (HCC) - ICD9: 585.3, ICD10: N18.30 - CBC + DIFF 7. Borderline diabetes - ICD9: 790.29, ICD10: R73.03 - HGB A1C 8. Morbid obesity (HCC) - ICD9: 278.01, ICD10: E66.01 Weight decreasing - continue to work on diet. 9. CECILIA (obstructive sleep apnea) - ICD9: 327.23, ICD10: G47.33 - doing well. Alfonzo Spears RTO in six months documented in this encounter [facility] 11-29-2021 Miscellaneous Notes MOODY 09/09/21 NOV 12/14/21 Patient has been identified by name and date of : Yes Requested Prescriptions Pending Prescriptions Disp Refills potassium chloride (K-TAB) 10 mEq tablet 30 tablet 11 Sig: Take 1 tablet by mouth daily with breakfast. RX INSTRUCTIONS: Patient aware RX will be sent to pharmacy. No need to notify patient. Bernadette Pena documented in this encounter [facility] 09-14-2021 History of Present illness Narrative Alba is a 71 year old who presents for an annual gynecologic exam without complaints. She was referred by PCP. Postmenopausal: Yes since age 53 Total hysterectomy 2014 for fibroids and pathology returned endometrium cancer, grade 1 HRT use: No. 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 malignancy: ENDOMETRIAL CANCER 2014 Total hysterectomy OB History T0 L5 SAB0 IAB0 Ectopic0 Multiple0 Live Births0 Pc Tech History LMP: Hysterectomy Age at Menarche: Age at First : Age at Menopause: [employer] History Comments: Sexual Activity: Not Currently; Male; hysterectomy Contraception: Surgical PAST MEDICAL HISTORY Diagnosis Date Acute kidney injury (EKATERINA) with acute tubular necrosis (ATN) (HCC) Atrial fibrillation (HCC) Atrial flutter (HCC) w/ RVR Borderline diabetes 12/2014 Chronic atrial fibrillation (HCC) COPD (chronic obstructive pulmonary disease) (HCC) Endometrial cancer, grade I (HCC) 12/2014 GERD (gastroesophageal reflux disease) HTN (hypertension) 12/2014 Morbid obesity with BMI of 60.0-69.9, adult (HCC) CECILIA (obstructive sleep apnea) Osteopenia Palpitations PAST SURGICAL HISTORY Procedure Laterality Date APPENDECTOMY CARDIAC CATH Left LAPS SUPRACRV HYSTERECT 250 GM/< RMVL TUBE/OVAR 2014 MIDLINE INSERTION/CONSULT 02/16/2018 TUBAL LIGATION HX FAMILY HISTORY Problem Relation Age of Onset COPD Mother Heart Mother Heart Father Colon Cancer Sister No Known Problems Brother Cancer Maternal Grandmother Heart Attack Maternal Grandfather No Known Problems Paternal Grandmother No Known Problems Paternal Grandfather Diabetes Sister Hypertension Son No Known Problems Son No Known Problems Son No Known Problems Daughter Hypertension Daughter SOCIAL HISTORY Social History Tobacco Use Smoking status: Former Smoker Packs/day: 1.00 Years: 5.00 Pack years: 5.00 Types: Cigarettes Quit date: 04/17/1984 Years since quittin.4 Smokeless tobacco: Never Used Tobacco comment: still smokes in the home Vaping Use Vaping Use: Never used Substance Use Topics Alcohol use: Not Currently Comment: rarely Drug use: No REVIEW OF SYSTEMS Abdomen: No abdominal pain, nausea, vomiting, diarrhea, or constipation. No bloating, early satiety, indigestion, or increased flatulence. Bladder: No dysuria, gross hematuria, urinary frequency, urinary urgency, or incontinence Breast: No breast lumps, nipple d/c, overlying skin changes, redness or skin retraction Allergies and current medication updated:Yes EXAM: BP 126/74 Wt 349 lb (158.3kg) GENERAL: pleasant, female in no apparent distress HEENT: Normocephalic and atraumatic NECK: Supple and full range of motion DERMATOLOGY: Normal and without lesions BREAST: deferred CHEST: Normal inspiratory effort ABDOMEN: soft and non-tender PELVIC: external genitalia normal, normal Bartholin's glands, urethra, Osborn's glands, no vulvar lesions, normal appearing perineal body and perianal region BIMANUAL: uterus surgically absent RECTOVAGINAL: deferred. NEURO: alert and oriented x3,exam grossly non-focal EXTREMITIES: normal ASSESSMENT/PLAN: 1) Health maintenance: Pap done with HPV- Vaginal cuff- if negative able to stop screening Mammogram due- Patient refusing mammogram screenings regardless of recommendation 2) Follow up as needed Malena Gama APRN.CNM documented in this encounter [facility] 09-09-2021 History of Present illness Narrative Radiology Service Progress Note PATIENT NAME: Alba Flores DATE OF SERVICE: September 09, 2021 TIME: 10:24 AM PATIENT IDENTITY VERIFICATION COMPLETED USING TWO (2) IDENTIFIERS: Name and Date of confirmed by patient verbally. FALL SCREENING: Has the patient had 2 falls in the last year or 1 fall with injury or currently using an Ambulatory Assistive Device (Walker, Cane, Wheelchair, Crutches, etc.)? No PATIENT GENDER DATA: Female. status: : No status: NO. PATIENT RELEVANT IMPLANT DATA REVIEWED: Yes RADIOLOGY DEPARTMENT: General X-ray: Exam(s) Completed: Chest X-Ray PERIPHERAL IV DATA: Not applicable SIGNED BY: RT Hazel(R) September 09, 2021 10:24 AM documented in this encounter [facility] 08-27-2021 Miscellaneous Notes Faxed recent ov notes to buddy TREJO, heel caser, request. documented in this encounter [facility] 05-13-2020 History of Present illness Narrative Radiology Service Progress Note PATIENT NAME: Alba Flores DATE OF SERVICE: May 13, 2020 TIME: 12:49 PM PATIENT IDENTITY VERIFICATION COMPLETED USING TWO (2) IDENTIFIERS: Name and Date of confirmed by patient verbally. FALL SCREENING: Has the patient had 2 falls in the last year or 1 fall with injury or currently using an Ambulatory Assistive Device (Walker, Cane, Wheelchair, Crutches, etc.)? Yes, Patient High Risk for Falls What interventions were put in place to prevent falls during this visit? Instructed Patient to Call for Help if Needed, Offered Assistance with Transfers/Clothing and Increased Observations by Caregivers PATIENT GENDER DATA: Female. status: : No status: NO. PATIENT RELEVANT IMPLANT DATA REVIEWED: Yes RADIOLOGY DEPARTMENT: General X-ray: Exam(s) Completed: Chest X-Ray PERIPHERAL IV DATA: Not applicable SIGNED BY: RT Hazel May 13, 2020 12:49 PM documented in this encounter [facility] 02-15-2018 History of Past i llness Narrative Problem Noted Date Resolved Date Hemothorax on left 02/15/2018 10/17/2018 Overview: resolved Last Assessment & Plan: PLAN: See plan for respiratory failure Respiratory failure 02/12/2018 02/21/2018 Last Assessment & Plan: Assessment: Secondary to L hemothorax (s/p thora 02/12 with hct 33.9) s/p 14F pigtail cath placed by IR on 02/13. Resolved. PLAN: - Supplemental O2 as needed - Thoracic surgery following - Remove Left Chest Tube - Monitor CXR daily at 4am - BPH EKATERINA (acute kidney injury) 02/12/20182017 Last Assessment & Plan: Assessment: Nonoliguric EKATERINA in setting of diuresis, poor PO intake. Baseline SCr 1.00 PLAN: - Strict I&O's. Monitor BMP. Obesity, Class III, BMI >= 40 02/11/2018 Atrial flutter with rapid ventricular response 0 12/14/2017 02/16/2018 documented as of this encounter (statuses as of 08/27/2021) [facility] History of Past illness Narrative* Problem Noted Date Resolved Date Hemothorax on left 02/15/2018 10/17/2018 Overview: resolved Last Assessment & Plan: PLAN: See plan for respiratory failure Respiratory failure 02/12/2018 02/21/2018 Last Assessment & Plan: Assessment: Secondary to L hemothorax (s/p thora 02/12 with hct 33.9) s/p 14F pigtail cath placed by IR on 02/13. Resolved. PLAN: - Supplemental O2 as needed - Thoracic surgery following - Remove Left Chest Tube - Monitor CXR daily at 4am - BPH EKATERINA (acute kidney injury) 02/12/20182017 Last Assessment & Plan: Assessment: Nonoliguric EKATERINA in setting of diuresis, poor PO intake. Baseline SCr 1.00 PLAN: - Strict I&O's. Monitor BMP. Obesity, Class III, BMI >= 40 02/11/2018 Atrial flutter with rapid ventricular response 0 12/14/2017 02/16/2018 documented as of this encounter (statuses as of 09/14/2021) [facility] History of Past illness Narrative* Problem Noted Date Resolved Date Hemothorax on left 02/15/2018 10/17/2018 Overview: resolved Last Assessment & Plan: PLAN: See plan for respiratory failure Respiratory failure 02/12/2018 02/21/2018 Last Assessment & Plan: Assessment: Secondary to L hemothorax (s/p thora 02/12 with hct 33.9) s/p 14F pigtail cath placed by IR on 02/13. Resolved. PLAN: - Supplemental O2 as needed - Thoracic surgery following - Remove Left Chest Tube - Monitor CXR daily at 4am - BPH EKATERINA (acute kidney injury) 02/12/20182017 Last Assessment & Plan: Assessment: Nonoliguric EKATERINA in setting of diuresis, poor PO intake. Baseline SCr 1.00 PLAN: - Strict I&O's. Monitor BMP. Obesity, Class III, BMI >= 40 02/11/2018 Atrial flutter with rapid ventricular response 0 12/14/2017 02/16/2018 documented as of this encounter (statuses as of 10/18/2021) [facility] History of Past illness Narrative* Problem Noted Date Resolved Date Hemothorax on left 02/15/2018 10/17/2018 Overview: resolved Last Assessment & Plan: PLAN: See plan for respiratory failure Respiratory failure 02/12/2018 02/21/2018 Last Assessment & Plan: Assessment: Secondary to L hemothorax (s/p thora 02/12 with hct 33.9) s/p 14F pigtail cath placed by IR on 02/13. Resolved. PLAN: - Supplemental O2 as needed - Thoracic surgery following - Remove Left Chest Tube - Monitor CXR daily at 4am - BPH EKATERINA (acute kidney injury) 02/12/20182017 Last Assessment & Plan: Assessment: Nonoliguric EKATERINA in setting of diuresis, poor PO intake. Baseline SCr 1.00 PLAN: - Strict I&O's. Monitor BMP. Obesity, Class III, BMI >= 40 02/11/2018 Atrial flutter with rapid ventricular response 0 12/14/2017 02/16/2018 documented as of this encounter (statuses as of 11/29/2021) [facility] History of Past illness Narrative* Problem Noted Date Resolved Date Hemothorax on left 02/15/2018 10/17/2018 Overview: resolved Last Assessment & Plan: PLAN: See plan for respiratory failure Respiratory failure 02/12/2018 02/21/2018 Last Assessment & Plan: Assessment: Secondary to L hemothorax (s/p thora 02/12 with hct 33.9) s/p 14F pigtail cath placed by IR on 02/13. Resolved. PLAN: - Supplemental O2 as needed - Thoracic surgery following - Remove Left Chest Tube - Monitor CXR daily at 4am - BPH EKATERINA (acute kidney injury) 02/12/20182017 Last Assessment & Plan: Assessment: Nonoliguric EKATERINA in setting of diuresis, poor PO intake. Baseline SCr 1.00 PLAN: - Strict I&O's. Monitor BMP. Obesity, Class III, BMI >= 40 02/11/2018 Atrial flutter with rapid ventricular response 0 12/14/2017 02/16/2018 documented as of this encounter (statuses as of 12/14/2021) [facility] History of Past illness Narrative* Problem Noted Date Resolved Date Hemothorax on left 02/15/2018 10/17/2018 Overview: resolved Last Assessment & Plan: PLAN: See plan for respiratory failure Respiratory failure 02/12/2018 02/21/2018 Last Assessment & Plan: Assessment: Secondary to L hemothorax (s/p thora 02/12 with hct 33.9) s/p 14F pigtail cath placed by IR on 02/13. Resolved. PLAN: - Supplemental O2 as needed - Thoracic surgery following - Remove Left Chest Tube - Monitor CXR daily at 4am - BPH EKATERINA (acute kidney injury) 02/12/20182017 Last Assessment & Plan: Assessment: Nonoliguric EKATERINA in setting of diuresis, poor PO intake. Baseline SCr 1.00 PLAN: - Strict I&O's. Monitor BMP. Obesity, Class III, BMI >= 40 02/11/2018 Atrial flutter with rapid ventricular response 0 12/14/2017 02/16/2018 documented as of this encounter (statuses as of 03/09/2022) [facility] History of Past illness Narrative* Problem Noted Date Resolved Date Hemothorax on left 02/15/2018 10/17/2018 Overview: resolved Last Assessment & Plan: PLAN: See plan for respiratory failure Respiratory failure 02/12/2018 02/21/2018 Last Assessment & Plan: Assessment: Secondary to L hemothorax (s/p thora 02/12 with hct 33.9) s/p 14F pigtail cath placed by IR on 02/13. Resolved. PLAN: - Supplemental O2 as needed - Thoracic surgery following - Remove Left Chest Tube - Monitor CXR daily at 4am - BPH EKATERINA (acute kidney injury) 02/12/20182017 Last Assessment & Plan: Assessment: Nonoliguric EKATERINA in setting of diuresis, poor PO intake. Baseline SCr 1.00 PLAN: - Strict I&O's. Monitor BMP. Obesity, Class III, BMI >= 40 02/11/2018 Atrial flutter with rapid ventricular response 0 12/14/2017 02/16/2018 documented as of this encounter (statuses as of 03/14/2022) [facility] History of Past illness Narrative* Problem Noted Date Resolved Date Hemothorax on left 02/15/2018 10/17/2018 Overview: resolved Last Assessment & Plan: PLAN: See plan for respiratory failure Respiratory failure 02/12/2018 02/21/2018 Last Assessment & Plan: Assessment: Secondary to L hemothorax (s/p thora 02/12 with hct 33.9) s/p 14F pigtail cath placed by IR on 02/13. Resolved. PLAN: - Supplemental O2 as needed - Thoracic surgery following - Remove Left Chest Tube - Monitor CXR daily at 4am - BPH EKATERINA (acute kidney injury) 02/12/20182017 Last Assessment & Plan: Assessment: Nonoliguric EKATERINA in setting of diuresis, poor PO intake. Baseline SCr 1.00 PLAN: - Strict I&O's. Monitor BMP. Obesity, Class III, BMI >= 40 02/11/2018 Atrial flutter with rapid ventricular response 0 12/14/2017 02/16/2018 documented as of this encounter (statuses as of 05/02/2022) [facility] History of Past illness Narrative* Problem Noted Date Resolved Date Hemothorax on left 02/15/2018 10/17/2018 Overview: resolved Last Assessment & Plan: PLAN: See plan for respiratory failure Respiratory failure 02/12/2018 02/21/2018 Last Assessment & Plan: Assessment: Secondary to L hemothorax (s/p thora 02/12 with hct 33.9) s/p 14F pigtail cath placed by IR on 02/13. Resolved. PLAN: - Supplemental O2 as needed - Thoracic surgery following - Remove Left Chest Tube - Monitor CXR daily at 4am - BPH EKATERINA (acute kidney injury) 02/12/20182017 Last Assessment & Plan: Assessment: Nonoliguric EKATERINA in setting of diuresis, poor PO intake. Baseline SCr 1.00 PLAN: - Strict I&O's. Monitor BMP. Obesity, Class III, BMI >= 40 02/11/2018 Atrial flutter with rapid ventricular response 0 12/14/2017 02/16/2018 documented as of this encounter (statuses as of 05/05/2022) [facility] History of Past illness Narrative* Problem Noted Date Resolved Date Hemothorax on left 02/15/2018 10/17/2018 Overview: resolved Last Assessment & Plan: PLAN: See plan for respiratory failure Respiratory failure 02/12/2018 02/21/2018 Last Assessment & Plan: Assessment: Secondary to L hemothorax (s/p thora 02/12 with hct 33.9) s/p 14F pigtail cath placed by IR on 02/13. Resolved. PLAN: - Supplemental O2 as needed - Thoracic surgery following - Remove Left Chest Tube - Monitor CXR daily at 4am - BPH EKATERINA (acute kidney injury) 02/12/20182017 Last Assessment & Plan: Assessment: Nonoliguric EKATERINA in setting of diuresis, poor PO intake. Baseline SCr 1.00 PLAN: - Strict I&O's. Monitor BMP. Obesity, Class III, BMI >= 40 02/11/2018 Atrial flutter with rapid ventricular response 0 12/14/2017 02/16/2018 documented as of this encounter (statuses as of 05/12/2022) [facility] History of Past illness Narrative* Problem Noted Date Resolved Date Hemothorax on left 02/15/2018 10/17/2018 Overview: resolved Last Assessment & Plan: PLAN: See plan for respiratory failure Respiratory failure 02/12/2018 02/21/2018 Last Assessment & Plan: Assessment: Secondary to L hemothorax (s/p thora 02/12 with hct 33.9) s/p 14F pigtail cath placed by IR on 02/13. Resolved. PLAN: - Supplemental O2 as needed - Thoracic surgery following - Remove Left Chest Tube - Monitor CXR daily at 4am - BPH EKATERINA (acute kidney injury) 02/12/20182017 Last Assessment & Plan: Assessment: Nonoliguric EKATERINA in setting of diuresis, poor PO intake. Baseline SCr 1.00 PLAN: - Strict I&O's. Monitor BMP. Obesity, Class III, BMI >= 40 02/11/2018 Atrial flutter with rapid ventricular response 0 12/14/2017 02/16/2018 documented as of this encounter (statuses as of 08/10/2022) [facility] History of Past illness Narrative* Problem Noted Date Resolved Date Hemothorax on left 02/15/2018 10/17/2018 Overview: resolved Last Assessment & Plan: PLAN: See plan for respiratory failure Respiratory failure 02/12/2018 02/21/2018 Last Assessment & Plan: Assessment: Secondary to L hemothorax (s/p thora 02/12 with hct 33.9) s/p 14F pigtail cath placed by IR on 02/13. Resolved. PLAN: - Supplemental O2 as needed - Thoracic surgery following - Remove Left Chest Tube - Monitor CXR daily at 4am - BPH EKATERINA (acute kidney injury) 02/12/20182017 Last Assessment & Plan: Assessment: Nonoliguric EKATERINA in setting of diuresis, poor PO intake. Baseline SCr 1.00 PLAN: - Strict I&O's. Monitor BMP. Obesity, Class III, BMI >= 40 02/11/2018 Atrial flutter with rapid ventricular response 0 12/14/2017 02/16/2018 documented as of this encounter (statuses as of 10/04/2022) [facility] History of Past illness Narrative* Problem Noted Date Diagnosed Date Resolved Date Hemothorax on left 02/15/2018 9 Overview: resolved Last Assessment & Plan: PLAN: See plan for respiratory failure Respiratory failure 02/12/2018 02/22/20 Last Assessment & Plan: Assessment: Secondary to L hemothorax (s/p thora 02/12 with hct 33.9) s/p 14F pigtail cath placed by IR on 02/13. Resolved. PLAN: - Supplemental O2 as needed - Thoracic surgery following - Remove Left Chest Tube - Monitor CXR daily at 4am - BPH EKATERINA (acute kidney injury) 02/12/2018 Last Assessment & Plan: Assessment: Nonoliguric EKATERINA in setting of diuresis, poor PO intake. Baseline SCr 1.00 PLAN: - Strict I&O's. Monitor BMP. Obesity, Class III, BMI >= 40 02/11/2018 02/18/2019 Atrial flutter with rapid ve ntricular response 12/14/2017 02/16/2018 documented as of this encounter (statuses as of 12/09/2022) [facility] History of Past illness Narrative* Problem Noted Date Diagnosed Date Resolved Date Hemothorax on left 02/15/2018 9 Overview: resolved Last Assessment & Plan: PLAN: See plan for respiratory failure Respiratory failure 02/12/2018 02/22/20 Last Assessment & Plan: Assessment: Secondary to L hemothorax (s/p thora 02/12 with hct 33.9) s/p 14F pigtail cath placed by IR on 02/13. Resolved. PLAN: - Supplemental O2 as needed - Thoracic surgery following - Remove Left Chest Tube - Monitor CXR daily at 4am - BPH EKATERINA (acute kidney injury) 02/12/2018 Last Assessment & Plan: Assessment: Nonoliguric EKATERINA in setting of diuresis, poor PO intake. Baseline SCr 1.00 PLAN: - Strict I&O's. Monitor BMP. Obesity, Class III, BMI >= 40 02/11/2018 02/18/2019 Atrial flutter with rapid ve ntricular response 12/14/2017 02/16/2018 documented as of this encounter (statuses as of 12/12/2022) [facility] History of Past illness Narrative* Problem Noted Date Diagnosed Date Resolved Date Hemothorax on left 02/15/2018 9 Overview: resolved Last Assessment & Plan: PLAN: See plan for respiratory failure Respiratory failure 02/12/2018 02/22/20 18 Last Assessment & Plan: Assessment: Secondary to L hemothorax (s/p thora 02/12 with hct 33.9) s/p 14F pigtail cath placed by IR on 02/13. Resolved. PLAN: - Supplemental O2 as needed - Thoracic surgery following - Remove Left Chest Tube - Monitor CXR daily at 4am - BPH EKATERINA (acute kidney injury) 02/12/2018 Last Assessment & Plan: Assessment: Nonoliguric EKATERINA in setting of diuresis, poor PO intake. Baseline SCr 1.00 PLAN: - Strict I&O's. Monitor BMP. Obesity, Class III, BMI >= 40 02/11/2018 02/18/2019 Atrial flutter with rapid ve ntricular response 12/14/2017 02/16/2018 documented as of this encounter (statuses as of 12/26/2022) [facility] History of Past illness Narrative* Problem Noted Date Diagnosed Date Resolved Date Hemothorax on left 02/15/2018 07 9 Overview: resolved Last Assessment & Plan: PLAN: See plan for respiratory failure Respiratory failure 02/12/2018 02/22/20 18 Last Assessment & Plan: Assessment: Secondary to L hemothorax (s/p thora 02/12 with hct 33.9) s/p 14F pigtail cath placed by IR on 02/13. Resolved. PLAN: - Supplemental O2 as needed - Thoracic surgery following - Remove Left Chest Tube - Monitor CXR daily at 4am - BPH EKATERINA (acute kidney injury) 02/12/2018 Last Assessment & Plan: Assessment: Nonoliguric EKATERINA in setting of diuresis, poor PO intake. Baseline SCr 1.00 PLAN: - Strict I&O's. Monitor BMP. Obesity, Class III, BMI >= 40 02/11/2018 02/18/2019 Atrial flutter with rapid ve ntricular response 12/14/2017 02/16/2018 documented as of this encounter (statuses as of 03/15/2023) [facility] History of Past illness Narrative* Problem Noted Date Diagnosed Date Resolved Date Hemothorax on left 02/15/2018 9 Overview: resolved Last Assessment & Plan: PLAN: See plan for respiratory failure Respiratory failure 02/12/2018 02/22/20 18 Last Assessment & Plan: Assessment: Secondary to L hemothorax (s/p thora 02/12 with hct 33.9) s/p 14F pigtail cath placed by IR on 02/13. Resolved. PLAN: - Supplemental O2 as needed - Thoracic surgery following - Remove Left Chest Tube - Monitor CXR daily at 4am - BPH EKATERINA (acute kidney injury) 02/12/2018 Last Assessment & Plan: Assessment: Nonoliguric EKATERINA in setting of diuresis, poor PO intake. Baseline SCr 1.00 PLAN: - Strict I&O's. Monitor BMP. Obesity, Class III, BMI >= 40 02/11/2018 02/18/2019 Atrial flutter with rapid ve ntricular response 12/14/2017 02/16/2018 documented as of this encounter (statuses as of 03/21/2023) [facility] History of Past illness Narrative* Problem Noted Date Diagnosed Date Resolved Date Hemothorax on left 02/15/2018 9 Overview: resolved Last Assessment & Plan: PLAN: See plan for respiratory failure Respiratory failure 02/12/2018 02/22/20 18 Last Assessment & Plan: Assessment: Secondary to L hemothorax (s/p thora 02/12 with hct 33.9) s/p 14F pigtail cath placed by IR on 02/13. Resolved. PLAN: - Supplemental O2 as needed - Thoracic surgery following - Remove Left Chest Tube - Monitor CXR daily at 4am - BPH EKATERINA (acute kidney injury) 02/12/2018 Last Assessment & Plan: Assessment: Nonoliguric EKATERINA in setting of diuresis, poor PO intake. Baseline SCr 1.00 PLAN: - Strict I&O's. Monitor BMP. Obesity, Class III, BMI >= 40 02/11/2018 02/18/2019 Atrial flutter with rapid ve ntricular response 12/14/2017 02/16/2018 documented as of this encounter (statuses as of 04/06/2023) [facility] History of Past illness Narrative* Problem Noted Date Diagnosed Date Resolved Date Hemothorax on left 02/15/2018 9 Overview: resolved Last Assessment & Plan: PLAN: See plan for respiratory failure Respiratory failure 02/12/2018 02/22/20 18 Last Assessment & Plan: Assessment: Secondary to L hemothorax (s/p thora 02/12 with hct 33.9) s/p 14F pigtail cath placed by IR on 02/13. Resolved. PLAN: - Supplemental O2 as needed - Thoracic surgery following - Remove Left Chest Tube - Monitor CXR daily at 4am - BPH EKATERINA (acute kidney injury) 02/12/2018 Last Assessment & Plan: Assessment: Nonoliguric EKATERINA in setting of diuresis, poor PO intake. Baseline SCr 1.00 PLAN: - Strict I&O's. Monitor BMP. Obesity, Class III, BMI >= 40 02/11/2018 02/18/2019 Atrial flutter with rapid ve ntricular response 12/14/2017 02/16/2018 documented as of this encounter (statuses as of 06/02/2023) [facility] History of Past illness Narrative* Problem Noted Date Diagnosed Date Resolved Date Hemothorax on left 02/15/2018 9 Overview: resolved Last Assessment & Plan: PLAN: See plan for respiratory failure Respiratory failure 02/12/2018 02/22/20 18 Last Assessment & Plan: Assessment: Secondary to L hemothorax (s/p thora 02/12 with hct 33.9) s/p 14F pigtail cath placed by IR on 02/13. Resolved. PLAN: - Supplemental O2 as needed - Thoracic surgery following - Remove Left Chest Tube - Monitor CXR daily at 4am - BPH EKATERINA (acute kidney injury) 02/12/2018 Last Assessment & Plan: Assessment: Nonoliguric EKATERINA in setting of diuresis, poor PO intake. Baseline SCr 1.00 PLAN: - Strict I&O's. Monitor BMP. Obesity, Class III, BMI >= 40 02/11/2018 02/18/2019 Atrial flutter with rapid ve ntricular response 12/14/2017 02/16/2018 documented as of this encounter (statuses as of 06/02/2023) [facility]11-01-2018 History of Past illness Narrative* Problem Noted Date Diagnosed Date Resolved Date Hemothorax on left 02/15/2018 9 Overview: resolved Last Assessment & Plan: PLAN: See plan for respiratory failure Respiratory failure 02/12/2018 02/22/20 Last Assessment & Plan: Assessment: Secondary to L hemothorax (s/p thora 02/12 with hct 33.9) s/p 14F pigtail cath placed by IR on 02/13. Resolved. PLAN: - Supplemental O2 as needed - Thoracic surgery following - Remove Left Chest Tube - Monitor CXR daily at 4am - BPH EKAETRINA (acute kidney injury) 02/12/2018 Last Assessment & Plan: Assessment: Nonoliguric EKATERINA in setting of diuresis, poor PO intake. Baseline SCr 1.00 PLAN: - Strict I&O's. Monitor BMP. Obesity, Class III, BMI >= 40 02/11/2018 02/18/2019 Atrial flutter with rapid ve ntricular response 12/14/2017 02/16/2018 documented as of this encounter (statuses as of 06/27/2023) [facility] note* Diagnosis Endometrial cancer, grade I (HCC) documented in this encounter [facility] note* Diagnosis Encounter for screening mammogram for breast cancer documented in this encounter [facility] note* Diagnosis Hypokalemia Hypopotassemia documented in this encounter [facility] note* Diagnosis Primary hypertension- Primary Unspecified essential hypertension Endometrial cancer, grade I (HCC) Atrial fibrillation, unspecified type (HCC) Cardiomyopathy of undetermined type (HCC) Other primary cardiomyopathies Chronic obstructive pulmonary disease, unspecified COPD type (HCC) Stage 3 chronic kidney disease, unspecified whether stage 3a or 3b CKD (HCC) Borderline diabetes Other abnormal glucose Morbid obesity (HCC) Morbid obesity CECILIA (obstructive sleep apnea) Obstructive sleep apnea (adult) (pediatric) documented in this encounter [facility] note* Diagnosis Tachyarrhythmia Tachycardia, unspecified Tachycardia Tachycardia, unspecified Atypical atrial flutter Atrial flutter Dilated cardiomyopathy Other primary cardiomyopathies Class 3 severe obesity due to excess calories without serious comorbidity with body mass index (BMI) of 50.0 to 59.9 in adult S/P ablation of atrial flutter Other postprocedural status [facility]* Diagnosis Hypokalemia Hypopotassemia documented in this encounter [facility] note* Diagnosis Tachyarrhythmia Tachycardia, unspecified Tachycardia Tachycardia, unspecified Atypical atrial flutter Atrial flutter Dilated cardiomyopathy Other primary cardiomyopathies Class 3 severe obesity due to excess calories without serious comorbidity with body mass index (BMI) of 50.0 to 59.9 in adult S/P ablation of atrial flutter Other postprocedural status documented in this encounter [facility] note* Diagnosis Atrial fibrillation, unspecified type (HCC)- Primary Morbid obesity with BMI of 60.0-69.9, adult (HCC) Morbid obesity Chronic obstructive pulmonary disease, unspecified COPD type (HCC) Cardiomyopathy of undetermined type (HCC) Other primary cardiomyopathies Primary hypertension Unspecified essential hypertension Hypertensive kidney disease with stage 3 chronic kidney disease, unspecified whether stage 3a or 3b CKD (HCC) Elevated TSH Nonspecific abnormal results of thyroid function study Borderline diabetes Other abnormal glucose documented in this encounter [facility] note* Diagnosis Cardiomyopathy of undetermined type (HCC)- Primary Other primary cardiomyopathies Atrial fibrillation, unspecified type (HCC) Hypertensive kidney disease with stage 3 chronic kidney disease, unspecified whether stage 3a or 3b CKD (HCC) Primary hypertension Unspecified essential hypertension Chronic obstructive pulmonary disease, unspecified COPD type (HCC) CECILIA (obstructive sleep apnea) Obstructive sleep apnea (adult) (pediatric) Stage 3 chronic kidney disease, unspecified whether stage 3a or 3b CKD (HCC) Osteopenia, unspecified location Borderline diabetes Other abnormal glucose Morbid obesity with BMI of 60.0-69.9, adult (HCC) Morbid obesity Medication monitoring encounter Encounter for therapeutic drug monitoring Screening for colon cancer Special screening for malignant neoplasms, colon [facility] Diagnosis Encounter for screening mammogram for breast cancer documented in this encounter [facility] note* Diagnosis Cardiomyopathy of undetermined type (HCC)- Primary Other primary cardiomyopathies Atrial fibrillation, unspecified type (HCC) Chronic obstructive pulmonary disease, unspecified COPD type (HCC) Stage 3 chronic kidney disease, unspecified whether stage 3a or 3b CKD (HCC) Borderline diabetes Other abnormal glucose Elevated TSH Nonspecific abnormal results of thyroid function study documented in this encounter [facility] note* Diagnosis Bilateral leg edema- Primary Edema Atrial fibrillation, unspecified type (HCC) Cardiomyopathy of undetermined type (HCC) Other primary cardiomyopathies Chronic obstructive pulmonary disease, unspecified COPD type (HCC) Stage 3 chronic kidney disease, unspecified whether stage 3a or 3b CKD (HCC) Borderline diabetes Other abnormal glucose Elevated TSH Nonspecific abnormal results of thyroid function study CECILIA (obstructive sleep apnea) Obstructive sleep apnea (adult) (pediatric) Hypokalemia Hypopotassemia [facility]* Diagnosis Screening for colon cancer- Primary Special screening for malignant neoplasms, colon documented in this encounter [facility] note* Diagnosis Respiratory failure (HCC)- Primary Acute respiratory failure Acute respiratory failure with hypoxia (HCC) Acute respiratory failure Atrial fibrillation, unspecified type (HCC) Pleural effusion on left Unspecified pleural effusion Acute on chronic diastolic congestive heart failure (HCC) Acute on chronic diastolic heart failure EKATERINA (acute kidney injury) (HCC) Acute kidney failure, unspecified Hemothorax on left Other specified forms of effusion, except tuberculous Essential hypertension Unspecified essential hypertension Obesity, Class III, BMI 40-49.9 (morbid obesity) (HCC) Morbid obesity Acute on chronic respiratory failure, unspecified whether with hypoxia or hypercapnia (HCC) Endometrial cancer, grade I (HCC) Vaginal bleeding Other specified noninflammatory disorder of vagina Atrial fibrillation (HCC) Atrial fibrillation EKATERINA (acute kidney injury) (HCC) Acute kidney failure, unspecified HTN (hypertension) Unspecified essential hypertension COPD (chronic obstructive pulmonary disease) (HCC) Chronic airway obstruction, not elsewhere classified Primary hypertension- Primary Unspecified essential hypertension Atrial fibrillation, unspecified type (HCC) Cardiomyopathy of undetermined type (HCC) Other primary cardiomyopathies Borderline diabetes Other abnormal glucose Stage 3 chronic kidney disease, unspecified whether stage 3a or 3b CKD (HCC) Chronic anticoagulation Long-term (current) use of anticoagulants Screening for colon cancer Special screening for malignant neoplasms, colon GERD without esophagitis Esophageal reflux Encounter for immunization Need for other specified prophylactic vaccination against single bacterial disease Pain of lower extremity, unspecified laterality Morbid obesity with BMI of 60.0-69.9, adult (HCC) Morbid obesity CECILIA (obstructive sleep apnea) Obstructive sleep apnea (adult) (pediatric) Chronic obstructive pulmonary disease, unspecified COPD type (HCC) [facility]* Diagnosis Respiratory failure (HCC)- Primary Acute respiratory failure Acute respiratory failure with hypoxia (HCC) Acute respiratory failure Atrial fibrillation, unspecified type (HCC) Pleural effusion on left Unspecified pleural effusion Acute on chronic diastolic congestive heart failure (HCC) Acute on chronic diastolic heart failure EKATERINA (acute kidney injury) (HCC) Acute kidney failure, unspecified Hemothorax on left Other specified forms of effusion, except tuberculous Essential hypertension Unspecified essential hypertension Obesity, Class III, BMI 40-49.9 (morbid obesity) (HCC) Morbid obesity Acute on chronic respiratory failure, unspecified whether with hypoxia or hypercapnia (HCC) Endometrial cancer, grade I (HCC) Vaginal bleeding Other specified noninflammatory disorder of vagina Atrial fibrillation (HCC) Atrial fibrillation EKATERINA (acute kidney injury) (HCC) Acute kidney failure, unspecified HTN (hypertension) Unspecified essential hypertension COPD (chronic obstructive pulmonary disease) (HCC) Chronic airway obstruction, not elsewhere classified Serum potassium elevated- Primary Hyperpotassemia [facility] Diagnosis Respiratory failure (HCC)- Primary Acute respiratory failure Acute respiratory failure with hypoxia (HCC) Acute respiratory failure Atrial fibrillation, unspecified type (HCC) Pleural effusion on left Unspecified pleural effusion Acute on chronic diastolic congestive heart failure (HCC) Acute on chronic diastolic heart failure EKATERINA (acute kidney injury) (HCC) Acute kidney failure, unspecified Hemothorax on left Other specified forms of effusion, except tuberculous Essential hypertension Unspecified essential hypertension Obesity, Class III, BMI 40-49.9 (morbid obesity) (HCC) Morbid obesity Acute on chronic respiratory failure, unspecified whether with hypoxia or hypercapnia (HCC) Endometrial cancer, grade I (HCC) Vaginal bleeding Other specified noninflammatory disorder of vagina Atrial fibrillation (HCC) Atrial fibrillation EKATERINA (acute kidney injury) (HCC) Acute kidney failure, unspecified HTN (hypertension) Unspecified essential hypertension COPD (chronic obstructive pulmonary disease) (HCC) Chronic airway obstruction, not elsewhere classified Endometrial cancer, grade I (HCC) Bacterial pneumonia Bacterial pneumonia, unspecified [facility] Diagnosis Respiratory failure (HCC)- Primary Acute respiratory failure Acute respiratory failure with hypoxia (HCC) Acute respiratory failure Atrial fibrillation, unspecified type (HCC) Pleural effusion on left Unspecified pleural effusion Acute on chronic diastolic congestive heart failure (HCC) Acute on chronic diastolic heart failure EKATERINA (acute kidney injury) (HCC) Acute kidney failure, unspecified Hemothorax on left Other specified forms of effusion, except tuberculous Essential hypertension Unspecified essential hypertension Obesity, Class III, BMI 40-49.9 (morbid obesity) (HCC) Morbid obesity Acute on chronic respiratory failure, unspecified whether with hypoxia or hypercapnia (HCC) Endometrial cancer, grade I (HCC) Vaginal bleeding Other specified noninflammatory disorder of vagina Atrial fibrillation (HCC) Atrial fibrillation EKATERINA (acute kidney injury) (HCC) Acute kidney failure, unspecified HTN (hypertension) Unspecified essential hypertension COPD (chronic obstructive pulmonary disease) (HCC) Chronic airway obstruction, not elsewhere classified Endometrial cancer, grade I (HCC) Pleural effusion Unspecified pleural effusion documented in this encounter [facility] for referral (narrative)* Diagnostic Procedure Only (Routine) - Pending Review Specialty Diagnoses / Procedures Referred By Mariann t Referred To Contact [facility] Diagnoses Encounter for screening mammogram for breast cancer Procedures MARTÍNEZ SCREENING SCREENING MAMMOGRAPHY BI 2-VIEW BREAST INC CAD Alfonzo Spears MD [address] [place] [address] [facility] [address] [place] [address] Referral ID Status Reason Start Date Expiration Date Visits Requested Visits Authorized [id number] Pending Review Auto-Generat ed Referral 10/13/2021 11/12/2022 1 1 [facility] for referral (narrative)* Diagnostic Procedure Only (Routine) - Pending Review Specialty Diagnoses / Procedures Referred By Mariann arroyo Referred To Contact [facility] Diagnoses Encounter for screening mammogram for breast cancer Procedures MARTÍNEZ SCREENING SCREENING MAMMOGRAPHY BI 2-VIEW BREAST INC CAD Alfonzo Spears MD [address] [place] [address] [facility] [address] [place] [address] Referral ID Status Reason Start Date Expiration Date Visits Requested Visits Authorized [id number] Pending Review Auto-Generat ed Referral 12/21/2022 01/20/2024 1 1 [facility] for visit Narrative* Auth/Cert Specialty Diagnoses / Procedures Referred By Mariann arroyo Referred To Contact Diagnoses tachycardia, chest pain Ochoa Walls III, MD [address] [place] [address] [facility] [address] [place] [address] Referral ID Status Reason Start Date Expiration Date Visits Re quested Visits Authorized [id number] 1 1 [facility] Summary Purpose Family History No Family History Records FoundNo Family History Records FoundNo Family History Records FoundNo Family History Records Found Advance Directives Documents on File Type Date Recorded 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 Advance Directive(s) 02/11/2018 3:29 PM Latest Code Status on File Code Status Date Activated Date Inactivated Comments Full Code 02/11/2018 4:38 AM 02/21/2018 8:10 PM Full Code Order Discussed With: Patient Documents on File Type Date Recorded 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 They are in agreement with this code status. DNRCC-ARREST 05/03/2020 11:25 PM 04/28/2022 12:36 PM I megan macias discussed Alba Flores's Do Not Resuscitate wishes with her. She is in agreement with this code status. She is OK with intubatation (DNR but not DNI). Latest Code Status on File Code Status Date Activated Date Inactivated Comments Full Code 02/11/2018 4:38 AM 02/21/2018 8:10 PM Question Answer Comments Full Code Order Discussed With: Patient Latest Code Status on File Code Status Date Activated Date Inactivated Comments Full Code 02/11/2018 4:38 AM 02/21/2018 8:10 PM Question Answer Comments Full Code Order Discussed With: Patient Date Activated Date Inactivated Comments 02/11/2018 4:38 AM 02/21/2018 8:10 PM Question Answer Comments Full Code Order Discussed With: Patient Reason for Referral Specialty Diagnoses / Procedures Referred By Contac t Referred To Contact Procedures ECG Jerome Velasquez MD [address] [place] [phone] Referral ID Status Reason Start Date Expiration Date V isits Requested Visits Authorized [id number] New Request 04/28/2022 05/23/2023 1 1 Specialty Diagnoses / Procedures Referred By Contac t Referred To Contact Procedures ECG Efren Smith MD [address] [place] [phone] Referral ID Status Reason Start Date Expiration Date V isits Requested Visits Authorized [id number] New Request 04/28/2022 05/23/2023 1 1 Specialty Diagnoses / Procedures Referred By Contac t Referred To Contact Procedures NO MECHANICAL DVT PROPHYLAXIS Efren Smith MD [address] [place] [address] Referral ID Status Reason Start Date Expiration Date V isits Requested Visits Authorized [id number] New Request 04/28/2022 05/23/2023 1 1 Specialty Diagnoses / Procedures Referred By Contac t Referred To Contact Procedures LOW RISK - NO PHARMACOLOGICAL DVT PROPHYLAXIS Efren Smith MD [address] [place] [phone] Referral ID Status Reason Start Date Expiration Date V isits Requested Visits Authorized [id number] New Request 04/28/2022 05/23/2023 1 1 Specialty Diagnoses / Procedures Referred By Contac t Referred To Contact Procedures DVT/VTE RISK ASSESSMENT Efren Smith MD [address] [place] [phone] Referral ID Status Reason Start Date Expiration Date V isits Requested Visits Authorized [id number] New Request 04/28/2022 05/23/2023 1 1 Referral ID Status Reason Start Date Expiration Date V isits Requested Visits Authorized [id number] Pending Review 04/28/2022 05/23/2023 1 1 Referral ID Status Reason Start Date Expiration Date V isits Requested Visits Authorized [id number] Pending Review 04/28/2022 05/23/2023 1 1 Referral ID Status Reason Start Date Expiration Date V isits Requested Visits Authorized [id number] Pending Review 04/28/2022 05/23/2023 1 1 Referral ID Status Reason Start Date Expiration Date V isits Requested Visits Authorized [id number] Pending Review 04/28/2022 05/23/2023 1 1 Referral ID Status Reason Start Date Expiration Date V isits Requested Visits Authorized [id number] Pending Review 04/28/2022 05/23/2023 1 1 Additional Source Comments INFORMATION SOURCE (unrecogn ized section and content) DATE CREATED AUTHOR 05/13/2018 [facility] DATE CREATED AUTHOR AUTHOR'S ORGANIZ ATION 05/21/2019 [facility] DATE CREATED AUTHOR AUTHOR'S ORGANIZ ATION 05/14/2022 [facility] DATE CREATED AUTHOR AUTHOR'S ORGANIZ ATION 01/12/2024 [facility] Source Comments (unrecognize d section and content) In the event this informatio n is protected by the Federal Confidentiality of Alcohol and Drug Abuse Patient Records regulations: The Federal rules restrict any use of the information to criminally investigate or prosecute any alcohol or drug abuse patient.[facility] the event this information is protected by the Federal Confidentiality of Alcohol and Drug Abuse Patient Records regulations: The Federal rules restrict any use of the information to criminally investigate or prosecute any alcohol or drug abuse patient.[facility] the event this information is protected by the Federal Confidentiality of Alcohol and Drug Abuse Patient Records regulations: The Federal rules restrict any use of the information to criminally investigate or prosecute any alcohol or drug abuse patient.[facility] the event this information is protected by the Federal Confidentiality of Alcohol and Drug Abuse Patient Records regulations: The Federal rules restrict any use of the information to criminally investigate or prosecute any alcohol or drug abuse patient.[facility] the event this information is protected by the Federal Confidentiality of Alcohol and Drug Abuse Patient Records regulations: The Federal rules restrict any use of the information to criminally investigate or prosecute any alcohol or drug abuse patient.[facility] the event this information is protected by the Federal Confidentiality of Alcohol and Drug Abuse Patient Records regulations: The Federal rules restrict any use of the information to criminally investigate or prosecute any alcohol or drug abuse patient.[facility] the event this information is protected by the Federal Confidentiality of Alcohol and Drug Abuse Patient Records regulations: The Federal rules restrict any use of the information to criminally investigate or prosecute any alcohol or drug abuse patient.[facility] the event this information is protected by the Federal Confidentiality of Alcohol and Drug Abuse Patient Records regulations: The Federal rules restrict any use of the information to criminally investigate or prosecute any alcohol or drug abuse patient.[facility] the event this information is protected by the Federal Confidentiality of Alcohol and Drug Abuse Patient Records regulations: The Federal rules restrict any use of the information to criminally investigate or prosecute any alcohol or drug abuse patient.[facility] the event this information is protected by the Federal Confidentiality of Alcohol and Drug Abuse Patient Records regulations: The Federal rules restrict any use of the information to criminally investigate or prosecute any alcohol or drug abuse patient.[facility] the event this information is protected by the Federal Confidentiality of Alcohol and Drug Abuse Patient Records regulations: The Federal rules restrict any use of the information to criminally investigate or prosecute any alcohol or drug abuse patient.[facility] the event this information is protected by the Federal Confidentiality of Alcohol and Drug Abuse Patient Records regulations: The Federal rules restrict any use of the information to criminally investigate or prosecute any alcohol or drug abuse patient.[facility] the event this information is protected by the Federal Confidentiality of Alcohol and Drug Abuse Patient Records regulations: The Federal rules restrict any use of the information to criminally investigate or prosecute any alcohol or drug abuse patient.[facility] the event this information is protected by the Federal Confidentiality of Alcohol and Drug Abuse Patient Records regulations: The Federal rules restrict any use of the information to criminally investigate or prosecute any alcohol or drug abuse patient.[facility] the event this information is protected by the Federal Confidentiality of Alcohol and Drug Abuse Patient Records regulations: The Federal rules restrict any use of the information to criminally investigate or prosecute any alcohol or drug abuse patient.[facility] the event this information is protected by the Federal Confidentiality of Alcohol and Drug Abuse Patient Records regulations: The Federal rules restrict any use of the information to criminally investigate or prosecute any alcohol or drug abuse patient.[facility] the event this information is protected by the Federal Confidentiality of Alcohol and Drug Abuse Patient Records regulations: The Federal rules restrict any use of the information to criminally investigate or prosecute any alcohol or drug abuse patient.[facility] the event this information is protected by the Federal Confidentiality of Alcohol and Drug Abuse Patient Records regulations: The Federal rules restrict any use of the information to criminally investigate or prosecute any alcohol or drug abuse patient.[facility] the event this information is protected by the Federal Confidentiality of Alcohol and Drug Abuse Patient Records regulations: The Federal rules restrict any use of the information to criminally investigate or prosecute any alcohol or drug abuse patient.[facility] the event this information is protected by the Federal Confidentiality of Alcohol and Drug Abuse Patient Records regulations: The Federal rules restrict any use of the information to criminally investigate or prosecute any alcohol or drug abuse patient.[facility] the event this information is protected by the Federal Confidentiality of Alcohol and Drug Abuse Patient Records regulations: The Federal rules restrict any use of the information to criminally investigate or prosecute any alcohol or drug abuse patient.[facility] the event this information is protected by the Federal Confidentiality of Alcohol and Drug Abuse Patient Records regulations: The Federal rules restrict any use of the information to criminally investigate or prosecute any alcohol or drug abuse patient.[facility] the event this information is protected by the Federal Confidentiality of Alcohol and Drug Abuse Patient Records regulations: The Federal rules restrict any use of the information to criminally investigate or prosecute any alcohol or drug abuse patient.[facility] the event this information is protected by the Federal Confidentiality of Alcohol and Drug Abuse Patient Records regulations: The Federal rules restrict any use of the information to criminally investigate or prosecute any alcohol or drug abuse patient.[facility] the event this information is protected by the Federal Confidentiality of Alcohol and Drug Abuse Patient Records regulations: The Federal rules restrict any use of the information to criminally investigate or prosecute any alcohol or drug abuse patient.[facility]In the event this information is protected by the Federal Confidentiality of Alcohol and Drug Abuse Patient Records regulations: The Federal rules restrict any use of the information to criminally investigate or prosecute any alcohol or drug abuse patient.[facility] the event this information is protected by the Federal Confidentiality of Alcohol and Drug Abuse Patient Records regulations: The Federal rules restrict any use of the information to criminally investigate or prosecute any alcohol or drug abuse patient.[facility] Reason for Visit (unrecogniz ed section and content) Reason Comments Faxed to Reason Comments Yearly Exam Specialty Diagnoses / Procedures Referred By Mariann t Referred To Contact Gynecology Diagnoses Endometrial cancer, grade I (HCC) Procedures CONSULT TO GYNECOLOGY OFFICE/OUTPATIENT NEW HIGH MDM 60-74 MINUTES Alfonzo Spears MD [address] [place] [address] Referral ID Status Reason Start Date Expiration Date V isits Requested Visits Authorized [id number] Closed PCP Requested Referral Auto-Generated Referral 09/09/2021 09/09/2022 1 1 Reason Onset Date Comments Refill Request 11/29/2021 Reason Comments Follow Up Reason Comments Patient Update Reason Onset Date Comments Refill Request 03/14/2022 Reason Onset Date Comments Refill Request 05/02/2022 Reason Onset Date Comments Transition Of Care 05/02/2022 Reason Comments Hospital F/U Reason Comments Med Change Request Reason Comments Refill Request Reason Comments Results Reason Onset Date Comments Refill Request 03/15/2023 Reason Comments Hospital Follow Up Reason Onset Date Comments Refill Request 06/02/2023 Reason Comments Follow Up 3 month exam Reason Onset Date Comments Population Health Navigation Outreach 09/06/2023 [facility] Reason Onset Date Comments Population Health Navigation Outreach 11/22/2023 [facility] [place] Reason Comments Recheck 6 month follow up Care Teams (unrecognized sec tion and content) Film Processing Supervisor Relationship Specialty Start Date End Date Alfonzo Spears MD [address] [place], [place] [id number] PCP - General Family Practice 01/09/15 Cornelio Hernandez [address] [place] [id number] Cardiology 04/26/18 Marshall Newman [address] [place], [place] [id number] Pulmonary Disease 04/26/18 Film Processing Supervisor Relationship Specialty Start Date End Date Alfonzo Spears MD [address] [facility] [place] [address] PCP - General Family Practice 01/09/15 Cornelio Hernandez [address] [place] [address] Cardiology 04/26/[address] Newamn [address] [place] [address] Pulmonary Disease 04/26/18 Film Processing Supervisor Relationship Specialty Start Date End Date Alfonzo Spears MD [address] [facility] [place] [address] PCP - General Family Practice 01/09/15 Cornelio Hernandez [address] [place] [address] Cardiology 04/26/18 Marshall Newman [address] [place] [address] Pulmonary Disease 04/26/18 Film Processing Supervisor Relationship Specialty Start Date End Date Alfonzo Spears MD [address] [facility] [place] [address] PCP - General Family Practice 01/09/15 Cornelio Hernandez [address] [place] [address] Cardiology 04/26/18 Marshall Newman [address] [place] [address] Pulmonary Disease 04/26/18 Film Processing Supervisor Relationship Specialty Start Date End Date Alfonzo Spears MD [address] [place] [address] PCP - General Family Medicine 01/09/15 Cornelio Hernandez [address] [place] [address] Cardiology 04/26/18 Marshall Newman [address] [place] [address] Pulmonary Disease 04/26/18 Film Processing Supervisor Relationship Specialty Start Date End Date Alfonzo Spears MD [address] [facility] [place] [address] PCP - General Family Medicine 01/09/15 Cornelio Hernandez [address] [place] [address] Cardiology 04/26/18 Marshall Newman [address] [place] [address] Pulmonary Disease 04/26/18 Film Processing Supervisor Relationship Specialty Start Date End Date Alfonzo Spears MD [address] [facility] [address] [place] [address] PCP - General Family Medicine 05/03/20 Cornelio Hernandez MD [address] [facility] [address] [place] [address] PCP - Referring 1 Cardiovascular Disease 05/06/20 Film Processing Supervisor Relationship Specialty Start Date End Date Alfonzo Spears MD [address] [facility] [place] [address] PCP - General Family Medicine 01/09/15 Cornelio Hernandez [address] [place] [address] Cardiology 04/26/18 Marshall Newman [address] [place] [address] Pulmonary Disease 04/26/18 Film Processing Supervisor Relationship Specialty Start Date End Date Alfonzo Spears MD [address] [facility] [place] [address] PCP - General Family Medicine 01/09/15 Cornelio Hernandez [address] [place] [address] Cardiology 04/26/18 Marshall Newman [address] [place] [address] Pulmonary Disease 04/26/18 Film Processing Supervisor Relationship Specialty Start Date End Date Alfonzo Spears MD [address] [facility] [address] [place] [address] PCP - General Family Medicine 05/03/20 Cornelio Hernandez MD [address] [facility] [place] [address] PCP - Referring 1 Cardiovascular Disease 05/06/20 Film Processing Supervisor Relationship Specialty Start Date End Date Alfonzo Spears MD [address] [facility] [place] [address] PCP - General Family Medicine 01/09/15 Cornelio Hernandez [address] [place] [address] Cardiology 04/26/18 Marshall Newman [address] [place] [address] Pulmonary Disease 04/26/18 Film Processing Supervisor Relationship Specialty Start Date End Date Alfonzo Spears MD [address] [place] [address] PCP - General Family Medicine 01/09/15 Cornelio Hernandez [address] [place] [address] Cardiology 04/26/18 Marshall Newman [address] [place] [address] Pulmonary Disease 04/26/18 Film Processing Supervisor Relationship Specialty Start Date End Date Alfonzo Spears MD [address] [place] [address] PCP - General Family Medicine 01/09/15 Cornelio Hernandez [address] [place] [address] Cardiology 04/26/18 Marshall Newman [address] [place] [address] Pulmonary Disease 04/26/18 Film Processing Supervisor Relationship Specialty Start Date End Date Alfonzo Spears MD [address] [place] [address] PCP - General Family Medicine 01/09/15 Cornelio Hernandez [address] [place] [address] Cardiology 04/26/18 Marshall Newman MD [address] [place] [address] Pulmonary Disease 04/26/18 Film Processing Supervisor Relationship Specialty Start Date End Date Alfonzo Spears MD [address] [place] [address] PCP - General Family Medicine 01/09/15 Cornelio Hernandez [address] [place] [address] Cardiology 04/26/18 Marshall Newman MD [address] [place] [address] Pulmonary Disease 04/26/18 Film Processing Supervisor Relationship Specialty Start Date End Date Alfonzo Spears MD [address] [facility] [place] [address] PCP - General Family Medicine 01/09/15 Cornelio Hernandez [address] [place] [address] Cardiology 04/26/18 Marshall Newman MD [address] [place] [address] Pulmonary Disease 04/26/18 Film Processing Supervisor Relationship Specialty Start Date End Date Alfonzo Spears MD [address] [facility] [address] PCP - General Family Medicine 01/09/15 Cornelio Hernandez MD [address] [place] [address] Cardiology 04/26/18 Marshall Newman MD [address] [place] [address] Pulmonary Disease 04/26/18 Film Processing Supervisor Relationship Specialty Start Date End Date Alfonzo Spears MD [address] [facility] [place] [address] PCP - General Family Medicine 01/09/15 Cornelio Hernandez MD [address] [place] [address] Cardiology 04/26/18 Marshall Newman MD [address] [place] [address] Pulmonary Disease 04/26/18 Film Processing Supervisor Relationship Specialty Start Date End Date Alfonzo Spears MD [address] [facility] [place] [address] PCP - General Family Medicine 01/09/15 Cornelio Hernandez MD [address] [place] [address] Cardiology 04/26/18 Marshall Newman MD [address] [place] [address] Pulmonary Disease 04/26/18 Film Processing Supervisor Relationship Specialty Start Date End Date Alfonzo Spears MD [address] [place] [address] PCP - General Family Medicine 01/09/15 Cornelio Hernandez MD [address] [place] [address] Cardiology 04/26/18 Marshall Newman MD [address] [place] [address] Pulmonary Disease 04/26/18 Film Processing Supervisor Relationship Specialty Start Date End Date Alfonzo Spears MD [address] [place] [address] PCP - General Family Medicine 01/09/15 Cornelio Hernandez MD [address] [place] [address] Cardiology 04/26/18 Marshall Newman MD [address] [place] [address] Pulmonary Disease 04/26/18 Film Processing Supervisor Relationship Specialty Start Date End Date Alfonzo Spears MD [address] [facility] [address] PCP - General Family Medicine 01/09/15 Cornelio Hernandez MD [address] [place] [address] Cardiology 04/26/18 Marshall Newman MD [address] [place] [address] Pulmonary Disease 04/26/18 Film Processing Supervisor Relationship Specialty Start Date End Date lAfonzo Spears MD [address] [place] [address] PCP - General Family Medicine 01/09/15 Cornelio Hernandez MD [address] [place] [address] Cardiology 04/26/18 Marshall Newman MD [address] [place] [place] [address] Pulmonary Disease 04/26/18 Film Processing Supervisor Relationship Specialty Start Date End Date Alfonzo Spears MD [address] [place] [address] PCP - General Family Medicine 01/09/15 Cornelio Hernandez MD [address] [place] [address] Cardiology 04/26/18 Marshall Newman MD [address] [place] [address] Pulmonary Disease 04/26/18 Film Processing Supervisor Relationship Specialty Start Date End Date Alfonzo Spears MD [address] [facility] [address] PCP - General Family Medicine 01/09/15 Cornelio Hernandez MD [address] [place] [address] Cardiology 04/26/18 Marshall Newman MD [address] [place] [address] Pulmonary Disease 04/26/18 Film Processing Supervisor Relationship Specialty Start Date End Date Alfonzo Spears MD [address] [place] [address] PCP - General Family Medicine 01/09/15 Cornelio Hernandez MD [address] [place], [place] [address] Cardiology 04/26/18 Marshall Newman MD [address] [place] [address] Pulmonary Disease 04/26/18 Scheduled Active and Recently Administ ered Medications (unrecognized section and content) Medication Order 04/28/2022 04/29/2022 04/30/2022 amiodarone (CORDARONE) 150 mg in Dextrose 5%, with overfill 113 mL (total volume) IVPB (COMPLETED) 150 mg, Intravenous, Administer over 10 Minutes, ONCE, 1 dose, On Pauline 04/28/22 at 1415, Telemetry Required Filtration Required Extravasation Risk. Filtration Required., Pre-Procedure(Cath) 1426 ($$New Bag$$ - Provider: Jose Monaco RN) AMIOdarone (PACERONE) tablet 200 mg 200 mg, Oral, DAILY, First dose on 04/30/22 at 0900, Until Discontinued, 08 (Given - Provider: Adela León, ANGEL) apixaban (ELIQUIS) tablet 5 mg 5 mg, Oral, EVERY 12 HOURS, First dose on Pauline 04/28/22 at 2100, Until Discontinued, Due to the rapid onset of action of apixaban, no overlap is needed with other anticoagulants (e.g. enoxaparin, heparin)., Indications: Atrial Fibrillation 2052 (Given - Provider: Prerna Gaona, ANGEL) 08 (Given - Provider: Shantelle Manrique RN)2220 (Given - Provider: Prerna Gaona, ANGEL) 0847 (Given - Provider: Adela León, ANGEL) budesonide-glycopyrrolate -Formoterol (BREZTRI) 160-9-4.8 MCG/ACT inhaler 2 puff (CANCELED) 2 puff, Inhalation, 2 TIMES DAILY, First dose on Pauline 04/28/22 at 2100, Until Discontinued 1956 (Given - Provider: Michele Denson RCP) 1100 (Given - Provider: Yulisa Leon RCP)2143 (Given - Provider: Shilpa Hope RCP) budesonide-glycopyrrolate -Formoterol (BREZTRI) 160-9-4.8 MCG/ACT inhaler 2 puff 2 puff, Inhalation, 2 TIMES DAILY, First dose (after last modification) on Mon04/30/22 at 0900, Until Discontinued, Patient able to self administer 0848 (Given - Provider: Adela León RN) furOSEmide (LASIX) tablet 40 mg 40 mg, Oral, 2 TIMES DAILY BEFORE MEALS, First dose on Pauline 04/28/22 at 1600, Until Discontinued 173 (Given - Provider: Jose Monaco RN) 0854 (Given - Provider: Shantelle Manrique RN)165 (Given - Provider: Shantelle Manrique RN) 0847 (Given - Provider: Adela León RN) Pantoprazole (PROTONIX) tablet DR 40 mg 40 mg, Oral, DAILY, First dose on Pauline 04/28/22 at 1345, Until Discontinued, Swallow whole; do not crush or chew., Indications: Continuation of Home Therapy 1421 (Given - Provider: Jose Monaco RN) 0854 (Given - Provider: Shantelle Manrique RN) 0847 (Given - Provider: Adela León RN) Potassium chloride (K-DUR) tablet ER 10 mEq 10 mEq, Oral, DAILY, First dose on Mon04/29/22 at 0900, Until Discontinued, Swallow tablets whole; do not crush, chew, or suck on tablet. Tablet may also be broken in half and each half swallowed separately. 1656 (Given - Provider: Shantelle Manrique RN - Comment: Patient NPO; wanted to wait tot celio with food) 0848 (Given - Provider: Adela León RN) Potassium chloride (K-DUR) tablet ER 20 mEq (COMPLETED) 20 mEq, Oral, ONCE, 1 dose, On Pauline 04/28/22 at 1745, Swallow tablets whole; do not crush, chew, or suck on tablet. Tablet may also be broken in half and each half swallowed separately. 173 (Given - Provider: Jose Monaco RN) sacubitril-valsartan (ENTRESTO) 24-26 MG per tablet 1 tablet 1 tablet, Oral, 2 TIMES DAILY, First dose on Mon04/28/22 at 1700, Until Discontinued 1732 (Given - Provider: Jose Monaco RN) 0854 (Given - Provider: Shantelle Manrique RN)1656 (Given - Provider: Shantelle Manrique RN) 0848 (Given - Provider: Adela León RN) Continuous Medication Order 04/28/2022 04/29/2022 04/30/2022 amiodarone HCl (NEXTERONE) 360mg in dextrose 200 mL premix () 1 mg/min (33.3333 mL/hr, rounded to 33.3 mL/hr), Intravenous, CONTINUOUS, Starting on Mon04/28/22 at 1430, Until Mon04/28/22 at 2028, Telemetry Required Filtration Required Extravasation Risk, Pre-Procedure(Cath) 1440 ($$New Bag$$ - Provider: Jose Monaco RN)1813 (Rate/Dose Verify - Provider: Prerna Gaona RN)1818 (Rate/Dose Verify - Provider: Prerna Gaona RN)1832 (Rate/Dose Verify - Provider: Prerna Gaona RN)1832 (Rate/Dose Verify - Provider: Prerna Gaona RN)1834 (Rate/Dose Verify - Provider: Prerna Gaona RN)205 (Stopped - Provider: Prerna Gaona RN) amiodarone HCl (NEXTERONE) 360mg in dextrose 200 mL premix (CANCELED) 0.5 mg/min (16.6667 mL/hr, rounded to 16.7 mL/hr), Intravenous, CONTINUOUS, Starting on Mon04/28/22 at 2030, Until Mon04/29/22 at 1756, Telemetry Required Filtration Required Extravasation Risk, Pre-Procedure(Cath) 2051 ($$New Bag$$ - Provider: Prerna Gaona RN) 0345 (Rate/Dose Verify - Provider: Prerna Gaona RN)0346 (Rate/Dose Verify - Provider: Prerna Gaona RN)0545 (Rate/Dose Verify - Provider: Shantelle Manrique RN)0556 ($$New Bag$$ - Provider: Prerna Gaona RN)0723 (Rate/Dose Verify - Provider: Shantelle Manrique RN)1156 (Rate/Dose Verify - Provider: Shantelle Manrique RN)1709 (Stopped - Provider: Shantelle Manrique RN)1713 (Stopped - Provider: Shantelle Manrique RN)1713 ($$New Bag$$ - Provider: Shantelle Manrique RN)1715 (Rate/Dose Verify - Provider: Shantelle Manrique RN)1759 (Stopped - Provider: Shantelle Manrique RN) PRN Medication Order 04/28/2022 04/29/2022 04/30/2022 Acetaminophen (TYLENOL) tablet 650 mg 650 mg, Oral, EVERY 6 HOURS NEEDED, Starting on Pauline 04/28/22 at 1235, Until 04/30/22 at 1439, Mild Pain, Oral temp > 100.4 F, Maximum dose of acetaminophen is 4000 mg from all sources in 24 hours. calcium carbonate antacid tablet 1,296 mg 1,296 mg (2 tablet), Oral, 4 TIMES DAILY NEEDED, Starting on 04/30/22 at 0234, Until 04/30/22 at 1439, Indigestion 0258 (Given - Provid er: Prerna Gaona RN) guaiFENesin (ROBITUSSIN) oral solution 400 mg 400 mg, Oral, EVERY 6 HOURS NEEDED, Starting on Pauline 04/28/22 at 1235, Until 04/30/22 at 1439, Cough, Congestion hydrOXYzine hcl (ATARAX) tablet 10 mg 10 mg, Oral, EVERY 6 HOURS NEEDED, Starting on Pauline 04/28/22 at 1343, Until 04/30/22 at 1439, Anxiety Melatonin tablet 6 mg 6 mg, Oral, DAILY AT BEDTIME NEEDED, Starting on Pauline 04/28/22 at 1235, Until 04/30/22 at 1439, Insomnia Methohexital (BREVITAL) injection (CANCELED) NEEDED, Starting on 04/29/22 at 1427, Until 04/29/22 at 1434, Intra-op/Intra-Proc 1427 (Given - Provider: Suzanne Weiss MD) Ondansetron (ZOFRAN) tablet 4 mg(Linked Group 1) 4 mg, Oral, EVERY 6 HOURS NEEDED, Starting on Pauline 04/28/22 at 1235, Until 04/30/22 at 1439, Nausea / Vomiting, Refractory Nausea Vomiting, 2nd line for nausea/vomiting Ondansetron 4mg/2ml (ZOFRAN) injection 4 mg(Linked Group 1) 4 mg, Intravenous, EVERY 6 HOURS NEEDED, Starting on Pauline 04/28/22 at 1235, Until 04/30/22 at 1439, Refractory Nausea Vomiting, 2nd line for nausea/vomiting Sodium chloride 0.9% IV solution 250 mL Intravenous, at 20 mL/hr, NEEDED, Starting on Pauline 04/28/22 at 1234, Until 04/30/22 at 1439, Carrier Fluid - See Admin. Inst, 250mL 0.9NS to be used as carrier fluid for intermittent small volume or piggyback medication administration as needed. Infusion rate of the carrier fluid should be set at 20 mL/hr unless the rate as the intermittent medication is less than 20 mL/hr. For intermittent medications with a rate less than 20 mL/hr set the carrier fluid at that rate of the intermittent or piggy back medication. Sodium chloride 0.9% IV solution 500 mL Intravenous, at 10 mL/hr, ADMINISTER DIRECTED, Starting on Mon04/29/22 at 0000, Until 04/30/22 at 1439, Per treatment plan, Start the morning of procedure., Pre-Procedure(Cath) Linked Groups Order Group 1: Ondansetron 4mg/2ml (ZOFRAN) injection 4 mgJump to med 4 mg, Intravenous, EVERY 6 HOURS NEEDED, Starting on Pauline 04/28/22 at 1235, Until 04/30/22 at 1439, Refractory Nausea Vomiting, 2nd line for nausea/vomiting Or Ondansetron (ZOFRAN) tablet 4 mgJump to med 4 mg, Oral, EVERY 6 HOURS NEEDED, Starting on Pauline 04/28/22 at 1235, Until 04/30/22 at 1439, Nausea / Vomiting, Refractory Nausea Vomiting, 2nd line for nausea/vomiting Scheduled Medication Order 04/28/2022 04/29/2022 04/30/2022 amiodarone (CORDARONE) 150 mg in Dextrose 5%, with overfill 113 mL (total volume) IVPB (COMPLETED) 150 mg, Intravenous, Administer over 10 Minutes, ONCE, 1 dose, On Pauline 04/28/22 at 1415, Telemetry Required Filtration Required Extravasation Risk. Filtration Required., Pre-Procedure(Cath) 1426 ($$New Bag$$ - Provider: Jose Monaco RN) AMIOdarone (PACERONE) tablet 200 mg 200 mg, Oral, DAILY, First dose on 04/30/22 at 0900, Until Discontinued, 0848 (Given - Provider: Adela León RN) apixaban (ELIQUIS) tablet 5 mg 5 mg, Oral, EVERY 12 HOURS, First dose on Pauline 04/28/22 at 2100, Until Discontinued, Due to the rapid onset of action of apixaban, no overlap is needed with other anticoagulants (e.g. enoxaparin, heparin)., Indications: Atrial Fibrillation 2052 (Given - Provider: Prerna Gaona RN) 0854 (Given - Provider: Shantelle Manrique RN)222 (Given - Provider: Prerna Gaona RN) 0847 (Given - Provider: Adela León RN) budesonide-glycopyrrolate -Formoterol (BREZTRI) 160-9-4.8 MCG/ACT inhaler 2 puff (CANCELED) 2 puff, Inhalation, 2 TIMES DAILY, First dose on Pauline 04/28/22 at 2100, Until Discontinued 1956 (Given - Provider: Michele Denson RCP) 1100 (Given - Provider: Yulisa Leon RCP)214 (Given - Provider: Shilpa Hope RCP) budesonide-glycopyrrolate -Formoterol (BREZTRI) 160-9-4.8 MCG/ACT inhaler 2 puff 2 puff, Inhalation, 2 TIMES DAILY, First dose (after last modification) on 04/30/22 at 0900, Until Discontinued, Patient able to self administer 0848 (Given - Provider: Adela León RN) furOSEmide (LASIX) tablet 40 mg 40 mg, Oral, 2 TIMES DAILY BEFORE MEALS, First dose on Pauline 04/28/22 at 1600, Until Discontinued 173 (Given - Provider: Jose Monaco RN) 0854 (Given - Provider: Shantelle Manrique RN)165 (Given - Provider: Shantelle Manrique RN) 0847 (Given - Provider: Adela León RN) Pantoprazole (PROTONIX) tablet DR 40 mg 40 mg, Oral, DAILY, First dose on Mon04/28/22 at 1345, Until Discontinued, Swallow whole; do not crush or chew., Indications: Continuation of Home Therapy 1421 (Given - Provider: Jose Monaco RN) 0854 (Given - Provider: Shantelle Manrique RN) 0847 (Given - Provider: Adela León RN) Potassium chloride (K-DUR) tablet ER 10 mEq 10 mEq, Oral, DAILY, First dose on Mon04/29/22 at 0900, Until Discontinued, Swallow tablets whole; do not crush, chew, or suck on tablet. Tablet may also be broken in half and each half swallowed separately. 1656 (Given - Provider: Shantelle Manrique RN - Comment: Patient NPO; wanted to wait tot celio with food) 0848 (Given - Provider: Adela León RN) Potassium chloride (K-DUR) tablet ER 20 mEq (COMPLETED) 20 mEq, Oral, ONCE, 1 dose, On Mon04/28/22 at 1745, Swallow tablets whole; do not crush, chew, or suck on tablet. Tablet may also be broken in half and each half swallowed separately. 173 (Given - Provider: Jose Monaco RN) sacubitril-valsartan (ENTRESTO) 24-26 MG per tablet 1 tablet 1 tablet, Oral, 2 TIMES DAILY, First dose on Mon04/28/22 at 1700, Until Discontinued 173 (Given - Provider: Jose Monaco RN) 0854 (Given - Provider: Shantelle Manrique RN)1656 (Given - Provider: Shantelle Manrique RN) 0848 (Given - Provider: Adela León RN) Continuous Medication Order 04/28/2022 04/29/2022 04/30/2022 amiodarone HCl (NEXTERONE) 360mg in dextrose 200 mL premix () 1 mg/min (33.3333 mL/hr, rounded to 33.3 mL/hr), Intravenous, CONTINUOUS, Starting on Mon04/28/22 at 1430, Until Mon04/28/22 at 2028, Telemetry Required Filtration Required Extravasation Risk, Pre-Procedure(Cath) 1440 ($$New Bag$$ - Provider: Jose Monaco RN)1813 (Rate/Dose Verify - Provider: Prerna Gaona RN)181 (Rate/Dose Verify - Provider: Prerna Gaona RN)183 (Rate/Dose Verify - Provider: Prerna Gaona RN)183 (Rate/Dose Verify - Provider: Prerna Gaona RN)183 (Rate/Dose Verify - Provider: Prerna Gaona RN)2051 (Stopped - Provider: Prerna Gaona RN) amiodarone HCl (NEXTERONE) 360mg in dextrose 200 mL premix (CANCELED) 0.5 mg/min (16.6667 mL/hr, rounded to 16.7 mL/hr), Intravenous, CONTINUOUS, Starting on Pauline 04/28/22 at 2030, Until 04/29/22 at 1756, Telemetry Required Filtration Required Extravasation Risk, Pre-Procedure(Cath) 2051 ($$New Bag$$ - Provider: Prerna Gaona RN) 0345 (Rate/Dose Verify - Provider: Prerna Gaona RN)0346 (Rate/Dose Verify - Provider: Prerna Gaona RN)0545 (Rate/Dose Verify - Provider: Shantelle Manrique RN)[id number] ($$New Bag$$ - Provider: Prerna Gaona RN)0723 (Rate/Dose Verify - Provider: Shantelle Manrique RN)1156 (Rate/Dose Verify - Provider: hSantelle Manrique RN)1709 (Stopped - Provider: Shantelle Manrique RN)1713 (Stopped - Provider: Shantelle Manrique RN)1713 ($$New Bag$$ - Provider: Shantelle Manrique RN)1715 (Rate/Dose Verify - Provider: Shantelle Manrique RN)1759 (Stopped - Provider: Shantelle Manrique RN) PRN Medication Order 04/28/2022 04/29/2022 04/30/2022 Acetaminophen (TYLENOL) tablet 650 mg 650 mg, Oral, EVERY 6 HOURS NEEDED, Starting on Pauline 04/28/22 at 1235, Until 04/30/22 at 1439, Mild Pain, Oral temp > 100.4 F, Maximum dose of acetaminophen is 4000 mg from all sources in 24 hours. calcium carbonate antacid tablet 1,296 mg 1,296 mg (2 tablet), Oral, 4 TIMES DAILY NEEDED, Starting on 04/30/22 at 0234, Until 04/30/22 at 1439, Indigestion 0258 (Given - Provid er: Prerna Gaona RN) guaiFENesin (ROBITUSSIN) oral solution 400 mg 400 mg, Oral, EVERY 6 HOURS NEEDED, Starting on Pauline 04/28/22 at 1235, Until 04/30/22 at 1439, Cough, Congestion hydrOXYzine hcl (ATARAX) tablet 10 mg 10 mg, Oral, EVERY 6 HOURS NEEDED, Starting on Pauline 04/28/22 at 1343, Until 04/30/22 at 1439, Anxiety Melatonin tablet 6 mg 6 mg, Oral, DAILY AT BEDTIME NEEDED, Starting on Pauline 04/28/22 at 1235, Until 04/30/22 at 1439, Insomnia Methohexital (BREVITAL) injection (CANCELED) NEEDED, Starting on Mon04/29/22 at 1427, Until 04/29/22 at 1434, Intra-op/Intra-Proc 1427 (Given - Provider: Suzanne Weiss MD) Ondansetron (ZOFRAN) tablet 4 mg(Linked Group 1) 4 mg, Oral, EVERY 6 HOURS NEEDED, Starting on Pauline 04/28/22 at 1235, Until 04/30/22 at 1439, Nausea / Vomiting, Refractory Nausea Vomiting, 2nd line for nausea/vomiting Ondansetron 4mg/2ml (ZOFRAN) injection 4 mg(Linked Group 1) 4 mg, Intravenous, EVERY 6 HOURS NEEDED, Starting on Pauline 04/28/22 at 1235, Until 04/30/22 at 1439, Refractory Nausea Vomiting, 2nd line for nausea/vomiting Sodium chloride 0.9% IV solution 250 mL Intravenous, at 20 mL/hr, NEEDED, Starting on Pauline 04/28/22 at 1234, Until 04/30/22 at 1439, Carrier Fluid - See Admin. Inst, 250mL 0.9NS to be used as carrier fluid for intermittent small volume or piggyback medication administration as needed. Infusion rate of the carrier fluid should be set at 20 mL/hr unless the rate as the intermittent medication is less than 20 mL/hr. For intermittent medications with a rate less than 20 mL/hr set the carrier fluid at that rate of the intermittent or piggy back medication. Sodium chloride 0.9% IV solution 500 mL Intravenous, at 10 mL/hr, ADMINISTER DIRECTED, Starting on 04/29/22 at 0000, Until 04/30/22 at 1439, Per treatment plan, Start the morning of procedure., Pre-Procedure(Cath) Linked Groups Order Group 1: Ondansetron 4mg/2ml (ZOFRAN) injection 4 mgJump to med 4 mg, Intravenous, EVERY 6 HOURS NEEDED, Starting on Pauline 04/28/22 at 1235, Until 04/30/22 at 1439, Refractory Nausea Vomiting, 2nd line for nausea/vomiting Or Ondansetron (ZOFRAN) tablet 4 mgJump to med 4 mg, Oral, EVERY 6 HOURS NEEDED, Starting on Pauline 04/28/22 at 1235, Until 04/30/22 at 1439, Nausea / Vomiting, Refractory Nausea Vomiting, 2nd line for nausea/vomiting Dialysis Access Sites (unrec ognized section and content) Type Status Location Placement Date Removal Da te [facility] (CV Access Device) 1321 Venous 8 Fr 11 cm Right femoral Inactive 05/08/2020 05/08/2020 [facility] (CV Access Device) 1320 Venous 7 Fr 11 cm Right femoral Inactive 05/08/2020 05/08/2020 FOR RECORDS PERTAINING TO PATIENTS WHO ARE OR HAVE BEEN ENROLLED IN A CHEMICAL DEPENDENCY/SUBSTANCEABUSE PROGRAM, SOME INFORMATION MAY BE OMITTED. This clinical summary was aggregated from multiple sources. Caution should be exercised in using it in the provision of clinical care. This summary normalizes information from multiple sources, and as a consequence, information in this document may materially change the coding, format and clinical context of patient data. In addition, data may be omitted in some cases. CLINICAL DECISIONS SHOULD BE BASED ON THE PRIMARY CLINICAL RECORDS. [facility]. provides no warranty or guarantee of the accuracy or completeness of information in this document.
== END | disposition home or self-care (01) ==
PROVIDERS: PCP Family Medicine; Referring Provider Nurse Practitioner Gerontology; Visit Provider Nurse Practitioner Gerontology
DX: Z79.899 Other long term (current) drug therapy (principal)
CPT/HCPCS: 94060; 94726; 94729

== ENCOUNTER 2024-08-12 23:09 | Emergency (ER) | payer MEDICARE, MEDICAID, SELFPAY ==
[2024-08-12 23:10] VITALS: BP 156/64; PULSE 78; RESP 18; TEMP 36.6; O2SAT 92; BMI 63.3
[2024-08-12 23:34] VITALS: PULSE 73; RESP 21; O2SAT 91
--- NOTE | 2024-08-12 23:44 | EKG12_ITS ---
Test Reason : PALPS Blood Pressure : */* mmHG Vent. Rate : 77 BPM Atrial Rate : 77 BPM P-R Int : 256 ms QRS Dur : 176 ms QT Int : 482 ms P-R-T Axes : 56 268 26 degrees QTcB Int : 545 ms Sinus rhythm with 1st degree A-V block Right bundle branch block Abnormal ECG Confirmed by TABITHA WALKER, CRISTIANO ([id number]), index editor CANELO POLLACK ([id number]) on 08/14/2024 1:23:35 PM Referred By: Confirmed By: CRISTIANO LU MD
[2024-08-12 23:45] VITALS: PULSE 72; RESP 21; O2SAT 93
[2024-08-13] VITALS (8 sets, daily range): BP systolic 119–124; BP diastolic 59–62; PULSE 64–68; RESP 16–22; TEMP 36.8; O2SAT 93–97
[2024-08-13 00:21] LABS: Absolute Neutrophil Count 4.1 X10^3/uL (2.0-7.7); Basophil# 0.02 X10^3/uL; Basophil% 0.3 % (0-1); Eosinophils% 1.3 % (0-5); Hematocrit 42.6 % (37-47); Hemoglobin 13.6 g/dL (12.0-15.0); Lymphocyte % 37.2 % (19-41); Mean Corp Hgb Conc 31.9 g/dL (32-36); Mean Corpuscular Hgb 28.8 pg (27.0-32.0); Mean Corpuscular Volume 90.3 fL (81-99); Monocyte# 0.69 X10^3/uL; Monocyte% 8.8 % (0-10); NRBC Flagged by Analyzer 0 % (0-5); Neutrophil # 4.07 X10^3/uL (2.7-7.7); Neutrophil % 52.1 % (47-70); Platelet Count 236 K/mm3 (150-450); RBC Distribution Width CV 13.5 % (11.6-14.6); RBC Distribution Width SD 44.1 fl (35.1-43.9); Red Blood Count 4.72 M/mm3 (4.2-5.4); White Blood Count 7.8 K/mm3 (4.4-11.0)
[2024-08-13 00:37] LABS: Magnesium 2.4 mg/dL (1.5-2.2)
[2024-08-13 00:40] LABS: Anion Gap 15 (5-15); BUN 28 mg/dL (4-19); BUN/Creat Ratio 12.7 RATIO (10-20); Calcium,Total 8.9 mg/dL (7.6-11.0); Carbon Dioxide 19.6 mmol/L (21.0-32.0); Chloride 106 mmol/L (98-108); Creatinine, Serum 2.22 mg/dL (0.70-1.20); EST Glomerular Filtration Rate 22 (>60); Estimated Creatinine Clearance 32.78 ml/min (50-250); Glucose 98 mg/dL (70-99); Potassium 3.8 mmol/L (3.3-5.1); Sodium Level 141 mmol/L (133-145)
--- NOTE | 2024-08-13 00:57 | EX.ED.DYSGE1 ---
HPI History of Present Illness Chief Complaint: Palpitations Informant: patient and family Narrative Narrative: Patient is a 74-year-old female with past medical history of paroxysmal atrial fibrillation currently on Eliquis as well as CECILIA hypertension and GERD. She states she been under a great deal of stress recently secondary to family issues and this evening felt like her heart was skipping beats. She denies any chest pain or shortness of breath associated with this. She states that she was unsure if she was going into her abnormal heart rhythm of atrial fibrillation once again and with this presents for evaluation. She states that there has been no change in medication recently she denies any excessive stimulant use or illicit drug use [facility] Medical History (Reviewed 06/04/24 @ 10:16 by Esther Arce MECHANICAL ENGINEERING TECHNICIAN, MECHANICAL ENGINEERING TECHNICIAN-C) Chronic anticoagulation Paroxysmal atrial fibrillation History of cardioversion (~05/02/22) Cardiomyopathy CAD (coronary artery disease) Hypoxia Longstanding persistent atrial fibrillation Chronic systolic (congestive) heart failure Essential hypertension CECILIA (obstructive sleep apnea) Chronic obstructive pulmonary disease Atrial flutter with rapid ventricular response GERD (gastroesophageal reflux disease) Morbid obesity Atrial flutter Home Medications ?Medication ?Instructions ?Recorded ?Last Taken ?Type calcium 500 mg (as 1 tab PO DAILY supplement 02/10/18 04/30/20 Rx carbonate)-vitamin D3 5 mcg (200 unit) tablet omega 2-bxz-znr-fish oil 300 1 cap PO DAILY 03/08/23 Unknown History mg-1,000 mg capsule,delayed release (Fish Oil) omeprazole 20 mg capsule,delayed 20 mg PO DAILY 03/08/23 Unknown History release amiodarone 200 mg tablet 100 mg (1/2 x 200 mg) PO DAILY 12/12/23 Unknown Rx Insurance will not cover 100 mg tablets #45 tabs furosemide 40 mg tablet 40 mg PO DAILY CHF #90 tabs 02/01/24 Unknown Rx metoprolol succinate 25 mg 25 mg PO DAILY #90 tabs 02/01/24 Unknown Rx tablet,extended release 24 hr potassium chloride 10 mEq 10 meq PO DAILY supplement #90 tabs 02/01/24 Unknown Rx tablet,extended release sacubitril 24 mg-valsartan 26 mg 1 tab PO BID heart #180 tabs 02/01/24 Unknown Rx tablet (Entresto) nystatin 100,000 unit/mL oral 5 ml mucous membrane TID #250 mL 06/04/24 Unknown Rx suspension fluticasone fur. 100 mcg-umeclid 1 inh inhalation DAILY #60 ea 06/25/24 Unknown Rx 62.5 mcg-vilant 25 mcg inhalat.powder (Trelegy Ellipta) apixaban 5 mg tablet (Eliquis) 5 mg PO BID #180 tabs 07/30/24 Unknown Rx Allergy/AdvReac Type Severity Reaction Status Date / Time adhesive Allergy blisters Verified 08/12/24 23:15 aspirin (ASA) AdvReac stomach Verified 08/12/24 23:15 burning and sick to stomach propoxyphene HCl (From AdvReac i get Verified 08/12/24 23:15 Darvon) dizzy and pass out Family History (Reviewed 06/04/24 @ 10:16 by Esther Arce MECHANICAL ENGINEERING TECHNICIAN, MECHANICAL ENGINEERING TECHNICIAN-C) Mother Heart disease Father Heart disease Surgical History (Reviewed 06/04/24 @ 10:16 by Esther Arce MECHANICAL ENGINEERING TECHNICIAN, MECHANICAL ENGINEERING TECHNICIAN-C) History of radiofrequency ablation procedure for cardiac arrhythmia (~05/08/20) Status post left heart catheterization (LHC) (~05/11/18) History of appendectomy History of total hysterectomy Social History (Reviewed 06/04/24 @ 10:16 by Esther Arce MECHANICAL ENGINEERING TECHNICIAN, MECHANICAL ENGINEERING TECHNICIAN-C) Smoking Status: Former smoker how long ago did patient quit smokin, 1ppd second hand exposure: Yes alcohol intake: current alcohol intake frequency: holidays/special occasions only Alcohol type: beer substance use type: does not use caffeine: No ROS ROS ED Constitutional Constitutional ED: Denies chills or fever(s) Eyes Eyes: Denies change in vision ENT ENT ED: Denies sore throat Cardiovascular Cardiovascular: Reports palpitations; Denies chest pain or racing heartbeat Respiratory/Chest Respiratory/Chest: Denies cough or dyspnea Gastrointestinal Gastrointestinal: Denies abdominal pain, diarrhea, nausea or vomiting Genitourinary Genitourinary ED: Denies dysuria Musculoskeletal Musculoskeletal: Denies back pain Integumentary Denies rash Neurologic Neurologic: Denies headache(s) Psychiatric Psychiatric: Reports anxiety Hematologic/Lymphatic Hematologic/Lymphatic: Reports easy bleeding and easy bruising EXAM Physical Exam Const Vital Signs: 08/12/24 23:10 08/12/24 23:34 08/12/24 23:45 Temperature 97.9 F Temperature Source Oral Pulse Rate 78 73 72 Respiratory Rate 18 21 H 21 H Respiratory Effort Blood Pressure 156/64 H Blood Pressure Mean 94 Pulse Ox 92 91 93 Oxygen Delivery Method Room Air 08/13/24 00:00 08/13/24 00:09 08/13/24 00:15 Temperature Temperature Source Pulse Rate 68 66 68 Respiratory Rate 17 20 H 16 Respiratory Effort Blood Pressure 121/59 H Blood Pressure Mean 79 Pulse Ox 94 93 94 Oxygen Delivery Method Room Air 08/13/24 00:20 08/13/24 00:30 08/13/24 00:43 Temperature Temperature Source Pulse Rate 67 66 Respiratory Rate 20 H 17 Respiratory Effort Normal Non-Labored Blood Pressure 121/59 H 124/59 H Blood Pressure Mean 76 78 Pulse Ox 94 93 Oxygen Delivery Method 08/13/24 00:45 08/13/24 01:00 08/13/24 01:10 Temperature 98.2 F Temperature Source Pulse Rate 64 64 65 Respiratory Rate 18 20 H 22 H Respiratory Effort Blood Pressure 121/59 H 119/62 Blood Pressure Mean 76 81 Pulse Ox 94 94 97 Oxygen Delivery Method Positive well nourished, well developed and obese General Appearance ED: well developed; Negative for pallor Nutritional Appearance: obese HEENT HEENT Narrative: Normocephalic atraumatic Eyes PERRL and EOMs intact bilaterally General Eye ED: Negative for scleral icterus Neck supple and no JVD Neck Narrative: No nuchal rigidity or meningeal signs noted Chest Wall palpation of chest normal Resp normal respiratory effort and clear to auscultation bilaterally Resp Narrative: Breath sounds are diminished throughout but overall clear to auscultation without signs of respiratory distress Cardio regular rate and regular rhythm Rate: other Other Details: Heart is regular rate and rhythm No ectopy noted Radial and carotid pulses are equal and symmetric GI normal to inspection, nondistended, normoactive bowel sounds, non-tender, non-distended and no masses Auscultation: normoactive bowel sounds Palpation: soft Extremity normal to inspection Neuro oriented x3, CN's II-XII intact bilaterally and no sensory deficits noted Sensorium / Orientation: alert Motor Exam: strength 5/5 throughout Psych mental status grossly normal Skin no rashes or lesions noted General Skin Exam: Negative for jaundice or pallor MDM MDM MDM Narrative Medical decision making narrative: Patient arrived to the ER mildly hypertensive otherwise with stable vitals. She has a known history of paroxysmal atrial fibrillation and states that she felt like her heart was missing/skipping beats at home. With her known history of atrial fibrillation there is concern she is having paroxysmal runs of this. There is concern it could be related to acute blood loss anemia or clinically significant electrolyte abnormality. I have low concern for pulmonary embolus especially as she is on Eliquis and therefore do not feel the need for D-dimer or CTA. Patient's labs reveal that her creatinine is slightly elevated at 2.2. Chart review reveals that her baseline creatinine is approximately 1.5 but the last/most recent testing is from 2022. In the ER the patient has had spontaneous improvement of her blood pressure without any type of medication provided. There is been no bouts of atrial fibrillation or ectopy such as PVCs or PACs or other abnormal heart rhythm noted on cardiac monitoring. The patient states she is felt completely normal since arriving to the ER. Therefore at this time patient does have mild renal insufficiency but I do not feel this is a high enough jump to indicate admission. She can continue to have a monitored as an outpatient and potentially have a referral to nephrology if it remains elevated or continues to worsen. As she does not have any cardiac dysrhythmia at this time and has stable vitals I feel she is safe for discharge with outpatient follow-up History & Record Review Discussion w/independent historian: Patient and Family Lab Data Attestation: I reviewed the patient's lab results. Labs: Laboratory Results - last 24 hr 08/12/24 23:30 WBC 7.8 RBC 4.72 Hgb 13.6 Hct 42.6 MCV 90.3 MCH 28.8 MCHC 31.9 L RDW Std Deviation 44.1 H RDW Coeff of Liam 13.5 Plt Count 236 MPV 10.0 Immature Gran % (Auto) 0.300 Neut % (Auto) 52.1 Lymph % (Auto) 37.2 [place] % (Auto) 8.8 Eos % (Auto) 1.3 Baso % (Auto) 0.3 Absolute Neuts (auto) 4.1 Absolute Lymphs (auto) 2.90 Nucleated RBC % 0 Sodium 141 Potassium 3.8 Chloride 106 Carbon Dioxide 19.6 L Anion Gap 15 BUN 28 H Creatinine 2.22 H Estim Creat Clear Calc 32.78 L Est GFR (MDRD) Non-Af 22 L BUN/Creatinine Ratio 12.7 Glucose 98 Calcium 8.9 Magnesium 2.4 H TSH 5.500 H Discharge Plan Triage Chief Complaint: Palpitations ED Provider: Gonzalez Najera Dx/Rx/DC Orders Clinical Impression: Palpitations, Renal insufficiency, Essential hypertension, Paroxysmal atrial fibrillation, GERD (gastroesophageal reflux disease), Current use of halfway anticoagulation Instructions: ED Palpitations, ED Renal Insufficiency Prescriptions: No Action potassium chloride 10 mEq tablet extended release 10 meq PO DAILY Qty: 90 3RF metoprolol succinate 25 mg tablet extended release 24 hr 25 mg PO DAILY Qty: 90 3RF furosemide 40 mg tablet 40 mg PO DAILY Qty: 90 3RF Entresto 24-26 mg tablet 1 tab PO BID Qty: 180 3RF nystatin 100,000 unit/mL suspension 5 ml mucous membrane TID Qty: 250 1RF Rx Instructions: swish and swallow 5 cc three times per day for 10 days calcium carbonate-vitamin D3 1 TABLET tablet 1 tab PO DAILY 0RF omega 2-mjy-tyf-fish oil [Fish Oil] 300-1,000 mg capsule,delayed release(DR/EC) 1 cap PO DAILY omeprazole 20 mg capsule,delayed release(DR/EC) 20 mg PO DAILY Patient Comments: take 1 capsule by mouth once daily amiodarone 200 mg tablet 100 mg PO DAILY Qty: 45 3RF Trelegy Ellipta 100-62.5-25 mcg blister with device 1 inh inhalation DAILY Qty: 60 11RF Eliquis 5 mg tablet 5 mg PO BID Qty: 180 3RF Primary Care Provider: Alfonzo Cha Referrals: Alfonzo Cha MD [Primary Care Provider] - Activity Restrictions/Additional Instructions: Please 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 You may require a Holter monitor for continued evaluation of your palpitations. Have your kidney function rechecked in the next 1 to 2 weeks as it was slightly elevated this evening. If your symptoms return or you have any further concerns please return to the ER for repeat evaluation Print Language: Malay Disposition Disposition: Home, Self Care Discharge Date/Time: 08/13/24 01:11
== END 2024-08-13 01:11 | disposition home or self-care (01) ==
PROVIDERS: Emergency Provider Emergency Medicine; PCP Family Medicine; Visit Provider Emergency Medicine
DX: R00.2 Palpitations (principal); I11.0 Hypertensive heart disease with heart failure; I50.22 Chronic systolic (congestive) heart failure; J44.9 Chronic obstructive pulmonary disease, unspecified; I48.0 Paroxysmal atrial fibrillation; N28.9 Disorder of kidney and ureter, unspecified; E66.9 Obesity, unspecified; K21.9 Gastro-esophageal reflux disease without esophagitis; I25.10 Atherosclerotic heart disease of native coronary artery without angina pectoris; G47.33 Obstructive sleep apnea (adult) (pediatric); Z63.8 Other specified problems related to primary support group; Z79.01 Long term (current) use of anticoagulants; Z79.899 Other long term (current) drug therapy; Z87.891 Personal history of nicotine dependence
CPT/HCPCS: 80048; 83735; 84443; 85025; 93005; 99284; A4216

== ENCOUNTER → 2024-09-27 | Outpatient (CLI) | payer MEDICARE, MEDICAID, SELFPAY ==
[2024-09-27 15:24] LABS: ALB/GLOB Ratio 1.5 RATIO (0.9-2.4); AST(SGOT) 26 U/L (<=31); Alanine Aminotransfer ALT/SGPT 29 U/L (<=34); Alkaline Phosphatase 112 U/L (35-104); Anion Gap 11 (5-15); BUN 26 mg/dL (4-19); BUN/Creat Ratio 19.3 RATIO (10-20); Carbon Dioxide 24.1 mmol/L (21.0-32.0); Chloride 108 mmol/L (98-108); Creatinine, Serum 1.33 mg/dL (0.70-1.20); EST Glomerular Filtration Rate 41 (>60); Globulin 2.7 g/dL (2.2-4.2); Glucose 92 mg/dL (70-99); Protein, Total 6.7 g/dL (5.9-8.4); Sodium Level 143 mmol/L (133-145); Total Bilirubin 0.33 mg/dL (0.00-1.30)
== END | disposition home or self-care (01) ==
LOC: RAD 11:53 → LAB 12:46
PROVIDERS: PCP Family Medicine; Referring Provider Nurse Practitioner Gerontology; Visit Provider Nurse Practitioner Gerontology
DX: I48.11 Longstanding persistent atrial fibrillation (principal); Z79.899 Other long term (current) drug therapy
CPT/HCPCS: 36415; 80053; 84443

== ENCOUNTER → 2024-09-30 | Outpatient (CLI) | payer MEDICARE, MEDICAID, SELFPAY ==
--- NOTE | 2024-09-30 13:58 | RAD_ITS ---
PROCEDURE: CHEST PA AND LATERAL 09/30/2024 REASON FOR EXAM: AMIODARONE TECHNIQUE: CHEST PA AND LATERAL COMPARISON: 03/09/2023 FINDINGS: No focal consolidation. Bibasilar subsegmental atelectasis/fibrosis. No pleural effusion or pneumothorax. Stable mild cardiomegaly. No acute fractures. RAD/Chest PA and Lateral IMPRESSION: No focal consolidations. Bibasilar subsegmental atelectasis/fibrosis. Reading Location: [id number]
== END | disposition home or self-care (01) ==
LOC: RAD 13:58
PROVIDERS: PCP Family Medicine; Referring Provider Nurse Practitioner Gerontology; Visit Provider Nurse Practitioner Gerontology
DX: Z79.899 Other long term (current) drug therapy (principal)
CPT/HCPCS: 71046